=== PATIENT | female | born 1940 | race American Indian/Alaskan Native ===

== ENCOUNTER → 2020-08-03 14:49 | Outpatient (BNVA) | payer MEDICARE, SELFPAY | PROVIDERS: PCP Internal Medicine; Visit Provider Urology | DX: Z46.6 Encounter for fitting and adjustment of urinary device (principal) | CPT/HCPCS: 51705; 51710; 99212 ==

== ENCOUNTER 2020-08-07 13:32 | Outpatient (REF) | payer MEDICARE, SELFPAY ==
[2020-08-07 14:16] LABS: MANUAL DIFF FLAG NO
[2020-08-07 14:18] LABS: Basophils Absolute Auto 0.1 X10*3/uL (0.0-0.2); Basophils Percent Auto 0.6 % (0-2); Eosinophils Absolute Auto 0.3 X10*3/uL (0.0-0.4); Eosinophils Percent Auto 3.6 % (0-4); Hematocrit 42.4 % (37-47); Hemoglobin 13.6 g/dl (12.0-16.0); Imm Gran Abs Auto 0.06 X10*3/uL (0.00-0.03); Imm Gran Pct Auto 0.6 % (0.0-0.4); Lymphocytes Absolute Auto 1.7 X10*3/uL (1.2-4.9); Lymphocytes Percent Auto 18.5 % (20-40); Mean Corpuscular HGB Conc 32.1 g/dl (31.0-35.0); Mean Corpuscular Hemoglobin 29.1 pg (27.0-33.0); Mean Corpuscular Volume 90.6 fL (80-98); Mean Platelet Volume 9.8 fL (9.4-12.3); Monocytes Absolute Auto 1.1 X10*3/uL (0.1-1.2); Monocytes Percent Auto 11.4 % (2-11); Neutrophils Absolute Auto 6.1 X10*3/uL (2.0-8.3); Neutrophils Percent Auto 65.3 % (45-73); Platelet Count 236 X10*3/uL (160-400); Red Blood Count 4.68 X10*6/uL (4.20-5.50); Red Cell Distribution Width 13.8 % (11.0-16.0); White Blood Count 9.3 X10*3/uL (4.8-10.8)
[2020-08-07 14:44] LABS: Alanine Aminotransferase 19 U/L (0-31); Albumin Level 3.7 g/dL (3.5-5.0); Alkaline Phosphatase 99 U/L (39-117); Anion Gap 13 (12-20); Aspartate Amino Transferase 22 U/L (5-31); Bilirubin Total 0.3 mg/dL (0.0-1.0); Blood Urea Nitrogen 51 mg/dL (9-16); Calcium 8.9 mg/dL (8.4-10.2); Carbon Dioxide 26 mmol/L (22-29); Chloride 106 mmol/L (96-108); Cholesterol 181 mg/dL; Estimated Glomerular Filt Rate 26; Glucose Random 184 mg/dL (60-115); HDL Cholesterol 35 mg/dL; LDL Cholesterol Calculated 114 mg/dl; Potassium 5.2 mmol/l (3.3-5.1); Sodium 140 mmol/L (135-145); Total Protein 7.3 g/dL (6.5-8.0); Triglycerides 163 mg/dL
[2020-08-07 15:05] LABS: Ferritin 63 ng/mL (10-250); Thyroid Stimulating Hormone 2.18 mIU/mL (0.32-4.0)
[2020-08-07 15:12] LABS: Estimated Average Glucose 126 mg/dL; Hemoglobin A1C 150.1454 umol/L
== END 2020-08-07 13:33 | disposition home or self-care (01) ==
LOC: HO.LAB 13:32
PROVIDERS: PCP Internal Medicine; Visit Provider Internal Medicine
DX: E03.8 Other specified hypothyroidism (principal); I12.9 Hypertensive chronic kidney disease with stage 1 through stage 4 chronic kidney disease, or unspecified chronic kidney disease; E11.22 Type 2 diabetes mellitus with diabetic chronic kidney disease; N18.9 Chronic kidney disease, unspecified; I25.119 Atherosclerotic heart disease of native coronary artery with unspecified angina pectoris
CPT/HCPCS: 36415; 80053; 80061; 82728; 83036; 84443; 85025

== ENCOUNTER 2020-08-08 15:49 | Outpatient (REF) | payer MEDICARE, SELFPAY ==
[2020-08-08 16:26] LABS: Creatinine Urine 25.29 mg/dL; Microalbum/Creatinine Ratio Ur 1502.5 ug/mg cr
== END 2020-08-08 15:50 | disposition home or self-care (01) ==
LOC: HO.LNP 15:49
PROVIDERS: Visit Provider Internal Medicine
DX: E03.8 Other specified hypothyroidism (principal); E11.22 Type 2 diabetes mellitus with diabetic chronic kidney disease; I12.9 Hypertensive chronic kidney disease with stage 1 through stage 4 chronic kidney disease, or unspecified chronic kidney disease; N18.9 Chronic kidney disease, unspecified; I25.119 Atherosclerotic heart disease of native coronary artery with unspecified angina pectoris
CPT/HCPCS: 82043

== ENCOUNTER → 2020-08-31 14:06 | Outpatient (BNVA) | payer MEDICARE, SELFPAY | PROVIDERS: PCP Internal Medicine; Visit Provider Urology | DX: Z43.5 Encounter for attention to cystostomy (principal); N31.9 Neuromuscular dysfunction of bladder, unspecified; B49 Unspecified mycosis | CPT/HCPCS: 51705; 51710; 99212 ==

== ENCOUNTER → 2020-09-05 13:54 | Outpatient (BNVA) | payer MEDICARE, SELFPAY | PROVIDERS: PCP Internal Medicine; Referring Provider Internal Medicine; Visit Provider Internal Medicine Cardiovascular Disease | DX: Z01.810 Encounter for preprocedural cardiovascular examination (principal); I25.10 Atherosclerotic heart disease of native coronary artery without angina pectoris; Z79.02 Long term (current) use of antithrombotics/antiplatelets | CPT/HCPCS: 93005; 99212 ==

== ENCOUNTER → 2020-10-09 11:12 | Outpatient (BNVA) | payer MEDICARE, SELFPAY | PROVIDERS: PCP Internal Medicine; Referring Provider Internal Medicine; Visit Provider Urology | DX: N31.9 Neuromuscular dysfunction of bladder, unspecified (principal) | CPT/HCPCS: 51702; 51705; 99212 ==

== ENCOUNTER 2020-10-13 22:26 | Inpatient (IN) | payer MEDICARE, SELFPAY ==
[2020-10-13 22:29] VITALS: BP 149/68; PULSE 85; RESP 30; TEMP 37.6; O2SAT 92; BMI 29.0
--- NOTE | 2020-10-13 22:36 | CT_ITS ---
EXAMINATION: CT ANGIOGRAM CHEST WITH AND WITHOUT CONTRAST (CT PULMONARY ANGIOGRAM FOR PE) CLINICAL INFORMATION: Shortness of breath. Knee replacement. COMPARISON: Chest radiograph dated 01/21/2019. TECHNIQUE: Prior to contrast administration, noncontrast localization images were obtained. Subsequently, multidetector volumetric imaging was performed from the thoracic inlet to below the diaphragms following the administration of 65 mL Omnipaque 350 intravenous contrast. No contrast reaction reported. Sagittal, coronal, and MIP oblique sagittal reformatted images were obtained on the CT workstation, uploaded to PACS, and reviewed. This CT examination was performed using dose optimization techniques as appropriate, variously including the following: *Automated exposure control. *Adjustment of mA and/or kV according to patient size (this includes techniques or standardized protocols for targeted exams where dose is matched to indication/reason for exam; i.e. extremities or head). *Use of iterative reconstruction technique. Total exam dose-length product 370 mGy-cm. FINDINGS: QUALITY OF STUDY/CONTRAST BOLUS: Satisfactory. PULMONARY ARTERIES: No central or segmental pulmonary emboli. THORACIC AORTA: No thoracic aortic dilatation or dissection. Scattered atherosclerotic calcifications. LUNG: Diffuse interstitial prominence with patchy bilateral airspace opacities and more confluent consolidations within the bilateral lower lobes. PLEURA: Small bilateral pleural effusions, left slightly greater than right. No pneumothorax. MEDIASTINUM: Mild cardiomegaly. No pericardial effusion. No mediastinal or hilar lymphadenopathy. No evidence of septal bowing or right heart strain. CHEST WALL/AXILLA: No axillary or internal mammary lymphadenopathy. OSSEOUS STRUCTURES: No acute or suspicious osseous abnormality. UPPER ABDOMEN: Unremarkable. No reflux of contrast into the hepatic veins to suggest elevated right heart pressures. CT/CT angio chest PE protocol IMPRESSION: 1. No CT angiographic evidence of acute pulmonary embolism. 2. Interstitial prominence with diffuse patchy bilateral ground-glass airspace opacities. More confluent airspace opacities within the bilateral lower lobes. Findings could represent multifocal pneumonia. Alternatively, findings can be seen in the setting of fluid overload. 3. Small bilateral pleural effusions. 4. Mild cardiomegaly. VTE: Negative.
--- NOTE | 2020-10-13 22:38 | ECG_ITS ---
Test Reason : SHORTNESS OF BREATH Blood Pressure : / mmHG Vent. Rate : 080 BPM Atrial Rate : 053 BPM P-R Int : 000 ms QRS Dur : 084 ms QT Int : 376 ms P-R-T Axes : 000 052 083 degrees QTc Int : 433 ms Normal sinus rhythm with Premature atrial complexes Anteroseptal infarct (cited on or before 21-JAN-2019) Abnormal ECG When compared with ECG of 21-JAN-2019 10:38, No significant changes seen Referred By: Olga Batista Electronically Signed By:SAMM WALKER
[2020-10-13 23:04] VITALS: O2SAT 97
--- NOTE | 2020-10-13 23:05 | ED.SOB ---
HPI - SOB/Dyspnea General Chief Complaint: Upper Respiratory Symptoms Stated Complaint: SUDDEN SOB (80%RA),COUGH, T 100.9 Time Seen by Provider: 10/13/20 22:30 Source: patient Mode of arrival: EMS Limitations: no limitations History of Present Illness HPI Narrative: This is an 80-year-old female with significant past medical history of CAD, diabetes, and recent knee surgery who presents with acute onset shortness of breath and on arrival EMS found patient had 80% on room air and reportedly temperature 100.9?. Otherwise, patient denies any pain, GI symptoms. Related Data Home Medications Medication Instructions Recorded Confirmed amlodipine 5 mg tablet 5 mg PO DAILY 09/05/20 10/14/20 aspirin 81 mg tablet,delayed 81 mg PO DAILY 09/05/20 10/14/20 release atenolol 100 mg tablet 100 mg PO DAILY 09/05/20 10/14/20 atorvastatin 20 mg tablet 20 mg PO BEDTIME 09/05/20 10/14/20 levothyroxine 25 mcg tablet 25 mcg PO DAILY 09/05/20 10/14/20 oxybutynin chloride 10 mg 10 mg PO DAILY 09/05/20 10/14/20 tablet,extended release 24 hr insulin glargine [Lantus Solostar 20 unit SUBCUT BEDTIME 10/14/20 10/14/20 U-100 Insulin] lisinopril 1 tab PO DAILY 10/14/20 10/14/20 Allergies Allergy/AdvReac Type Severity Reaction Status Date / Time No Known Allergies Allergy Verified 10/13/20 23:57 [No Known Allergies*] Review of Systems Review of Systems: Pertinent positives and negatives as stated in HPI 10 point review of systems is otherwise negative. FORMERLY [facility], 1928–1983 Past Medical History Surgical History H/O heart artery stent H/O nasal polypectomy History of tonsillectomy and adenoidectomy History of tubal ligation Hx of cholecystectomy Family History Family History Father Hx of angina pectoris Myocardial infarction Mother Ovarian cancer Stomach cancer Maternal Grandfather Hardening of the arteries of the heart Social History Social History Smoking Status: Never smoker Advance Directives: No Advance Directives Information Provided: No Physical Exam Vital Signs: Vital Signs: Last Vital Signs Temp 98.0 F 10/14/20 06:00 Pulse 75 10/14/20 06:00 Resp 25 H 10/14/20 06:00 BP 147/65 H 10/14/20 06:00 Pulse Ox 93 10/14/20 06:00 Body Mass Index 29.0 VITAL SIGNS: Reviewed. GENERAL: Morbidly obese, well-developed, well nourished, moderate to severe distress. HEAD: Normocephalic/atraumatic, EYES: PERRLA, EOMI intact without pain, no nystagmus/pallor/icterus noted EARS: Ext canals without abnormality, TMs non-bulging and non-erythematous NOSE: Nares patent bilateral OROPHARYNX: no oral lesions noted, posterior pharynx clear and non-erythematous without noted tonsillar enlargement/erythema/exudates NECK: Supple, no adenopathy LUNGS: Tachypneic, no wheeze, decreased bilateral SpO2<92> on 4 L via nasal cannula CARDIOVASCULAR: Regular rate and rhythm without noted murmurs, no JVD or lower extremity edema. ABDOMEN: Soft, non-tender, non-distended with bowel sounds. No rigidity. No guarding. No palpable masses or hernias noted MUSCULOSKELETAL: No tenderness, deformities, or effusions noted on gross inspection. EXTREMITIES: No cyanosis, clubbing or edema. SKIN: Inspection of the skin reveals no rashes, ulcerations, jaundice, pallor, or petechiae. NEUROLOGIC: Alert and oriented x 4. Strength and sensation to light touch were grossly intact x 4. Course Course Course Narrative: This is an 80-year-old female with history and clinical presentation most concerning for possible PE given acute onset shortness of breath and recent knee surgery although EKG does not demonstrate right heart strain pattern and patient is hemodynamically stable otherwise. Will evaluate for pneumonia, COVID-19, PE, cardiac ischemia (given patient's extensive cardiac history). Labs, UA, Serology, EKG, CTA chest, oxygen, BCx, lactic acid, antibiotics. Sepsis fluids held due to elevated BNP and CT findings suggestive of pulmonary congestion. Review of all investigations is most suggestive of multifocal pneumonia and although serology is negative for COVID-19 or influenza her history and objective investigations are highly suspicious. Patient's oxygenation has improved greatly on supplemental Venturi mask and subjectively reports improvement. Antibiotics were provided but with the elevated BNP (on comparison 172 in 2017) and CT findings suggestive pulmonary congestion the decision was made to hold sepsis fluids. This case was discussed with the nursing informatics specialist feels that the patient is stable for the floor and after discussion with the inpatient hospitalist team they are agreeable for admission. I discussed the troponin levels (> 50% delta increase) as well as EKG findings with Cardiology who recommends a single dose of Lovenox and agrees that this EKG is not consistent with atrial fibrillation. MDM - SOB/Dyspnea Lab Data Result diagrams: 10/13/20 23:10 10/13/20 23:10 Labs: Lab Results 10/13/20 10/13/20 10/13/20 Range/Units 22:54 23:10 23:10 WBC 14.0 H (4.8-10.8) X10*3/uL RBC 4.58 (4.20-5.50) X10*6/uL Hgb 13.5 (12.0-16.0) g/dl Hct 41.1 (37-47) % MCV 89.7 (80-98) fL MCH 29.5 (27.0-33.0) pg MCHC 32.8 (31.0-35.0) g/dl RDW 14.6 (11.0-16.0) % Plt Count 231 (160-400) X10*3/uL MPV 9.6 (9.4-12.3) fL Immature Gran % (Auto) 0.8 H (0.0-0.4) % Neut % (Auto) 78.6 H (45-73) % Lymph % (Auto) 7.2 L (20-40) % [place] % (Auto) 12.9 H (2-11) % Eos % (Auto) 0.1 (0-4) % Baso % (Auto) 0.4 (0-2) % Lymph # (Auto) 1.0 L (1.2-4.9) X10*3/uL [place] # (Auto) 1.8 H (0.1-1.2) X10*3/uL Eos # (Auto) 0.0 (0.0-0.4) X10*3/uL Baso # (Auto) 0.1 (0.0-0.2) X10*3/uL Abs Immat Gran (auto) 0.11 H (0.00-0.03) X10*3/uL Absolute Neuts (auto) 11.0 H (2.0-8.3) X10*3/uL Absolute Nucleated RBC 0.000 (0.0-0.012) X10*3/uL Nucleated RBC % (auto) 0.0 (0.0-0.2) /100WBC Smear Tech's Comments VERIFIED PT (10.8-13.0) SEC INR (0.9-1.1) APTT (24.1-38.0) SEC D-Dimer NG/ML VBG pH (7.32-7.43) VBG pCO2 mmhg VBG pO2 mmhg VBG HCO3 mmol/L VBG O2 Saturation % VBG Base Excess mmol/L Sodium 139 (135-145) mmol/L Potassium 4.4 (3.3-5.1) mmol/l Chloride 106 (96-108) mmol/L Carbon Dioxide 20 L (22-29) mmol/L Anion Gap 17 (12-20) BUN 38 H (9-16) mg/dL Creatinine 1.75 H (0.5-1.4) mg/dL Estim Creat Clear Calc 27.5 Estimated GFR 28 Random Glucose 133 H (60-115) mg/dL Lactic Acid (0.5-2.0) mmol/L Calcium 8.5 (8.4-10.2) mg/dL Total Bilirubin 0.7 (0.0-1.0) mg/dL AST 28 (5-31) U/L ALT 22 (0-31) U/L Alkaline Phosphatase 97 (39-117) U/L Lactate Dehydrogenase 301 H (122-220) U/L Troponin I High Sens (<3.5-17.0) ng/L C-Reactive Protein 5.68 H (< or = 0.50) mg/dL B-Natriuretic Peptide (<100) pg/mL Total Protein 7.6 (6.5-8.0) g/dL Albumin 3.8 (3.5-5.0) g/dL Procalcitonin ng/mL Coronavirus (PCR) NEGATIVE (Negative) Influenza Type A (PCR) NEGATIVE (Negative) Influenza Type B (PCR) NEGATIVE (Negative) RSV RNA Qual (PCR) NEGATIVE (Negative) 10/13/20 10/13/20 10/13/20 Range/Units 23:10 23:10 23:10 WBC (4.8-10.8) X10*3/uL RBC (4.20-5.50) X10*6/uL Hgb (12.0-16.0) g/dl Hct (37-47) % MCV (80-98) fL MCH (27.0-33.0) pg MCHC (31.0-35.0) g/dl RDW (11.0-16.0) % Plt Count (160-400) X10*3/uL MPV (9.4-12.3) fL Immature Gran % (Auto) (0.0-0.4) % Neut % (Auto) (45-73) % Lymph % (Auto) (20-40) % [place] % (Auto) (2-11) % Eos % (Auto) (0-4) % Baso % (Auto) (0-2) % Lymph # (Auto) (1.2-4.9) X10*3/uL [place] # (Auto) (0.1-1.2) X10*3/uL Eos # (Auto) (0.0-0.4) X10*3/uL Baso # (Auto) (0.0-0.2) X10*3/uL Abs Immat Gran (auto) (0.00-0.03) X10*3/uL Absolute Neuts (auto) (2.0-8.3) X10*3/uL Absolute Nucleated RBC (0.0-0.012) X10*3/uL Nucleated RBC % (auto) (0.0-0.2) /100WBC Smear Tech's Comments PT 14.2 H (10.8-13.0) SEC INR 1.2 H (0.9-1.1) APTT (24.1-38.0) SEC D-Dimer 1396 NG/ML VBG pH (7.32-7.43) VBG pCO2 mmhg VBG pO2 mmhg VBG HCO3 mmol/L VBG O2 Saturation % VBG Base Excess mmol/L Sodium (135-145) mmol/L Potassium (3.3-5.1) mmol/l Chloride (96-108) mmol/L Carbon Dioxide (22-29) mmol/L Anion Gap (12-20) BUN (9-16) mg/dL Creatinine (0.5-1.4) mg/dL Estim Creat Clear Calc Estimated GFR Random Glucose (60-115) mg/dL Lactic Acid (0.5-2.0) mmol/L Calcium (8.4-10.2) mg/dL Total Bilirubin (0.0-1.0) mg/dL AST (5-31) U/L ALT (0-31) U/L Alkaline Phosphatase (39-117) U/L Lactate Dehydrogenase (122-220) U/L Troponin I High Sens 120.0 H (<3.5-17.0) ng/L C-Reactive Protein (< or = 0.50) mg/dL B-Natriuretic Peptide 492 H (<100) pg/mL Total Protein (6.5-8.0) g/dL Albumin (3.5-5.0) g/dL Procalcitonin 0.08 ng/mL Coronavirus (PCR) (Negative) Influenza Type A (PCR) (Negative) Influenza Type B (PCR) (Negative) RSV RNA Qual (PCR) (Negative) 10/13/20 10/13/20 10/14/20 Range/Units 23:11 23:43 01:54 WBC (4.8-10.8) X10*3/uL RBC (4.20-5.50) X10*6/uL Hgb (12.0-16.0) g/dl Hct (37-47) % MCV (80-98) fL MCH (27.0-33.0) pg MCHC (31.0-35.0) g/dl RDW (11.0-16.0) % Plt Count (160-400) X10*3/uL MPV (9.4-12.3) fL Immature Gran % (Auto) (0.0-0.4) % Neut % (Auto) (45-73) % Lymph % (Auto) (20-40) % [place] % (Auto) (2-11) % Eos % (Auto) (0-4) % Baso % (Auto) (0-2) % Lymph # (Auto) (1.2-4.9) X10*3/uL [place] # (Auto) (0.1-1.2) X10*3/uL Eos # (Auto) (0.0-0.4) X10*3/uL Baso # (Auto) (0.0-0.2) X10*3/uL Abs Immat Gran (auto) (0.00-0.03) X10*3/uL Absolute Neuts (auto) (2.0-8.3) X10*3/uL Absolute Nucleated RBC (0.0-0.012) X10*3/uL Nucleated RBC % (auto) (0.0-0.2) /100WBC Smear Tech's Comments PT (10.8-13.0) SEC INR (0.9-1.1) APTT 29.1 (24.1-38.0) SEC D-Dimer NG/ML VBG pH 7.31 L (7.32-7.43) VBG pCO2 40 mmhg VBG pO2 34 mmhg VBG HCO3 20 mmol/L VBG O2 Saturation 63.4 % VBG Base Excess -6.1 mmol/L Sodium (135-145) mmol/L Potassium (3.3-5.1) mmol/l Chloride (96-108) mmol/L Carbon Dioxide (22-29) mmol/L Anion Gap (12-20) BUN (9-16) mg/dL Creatinine (0.5-1.4) mg/dL Estim Creat Clear Calc Estimated GFR Random Glucose (60-115) mg/dL Lactic Acid 1.8 (0.5-2.0) mmol/L Calcium (8.4-10.2) mg/dL Total Bilirubin (0.0-1.0) mg/dL AST (5-31) U/L ALT (0-31) U/L Alkaline Phosphatase (39-117) U/L Lactate Dehydrogenase (122-220) U/L Troponin I High Sens (<3.5-17.0) ng/L C-Reactive Protein (< or = 0.50) mg/dL B-Natriuretic Peptide (<100) pg/mL Total Protein (6.5-8.0) g/dL Albumin (3.5-5.0) g/dL Procalcitonin ng/mL Coronavirus (PCR) (Negative) Influenza Type A (PCR) (Negative) Influenza Type B (PCR) (Negative) RSV RNA Qual (PCR) (Negative) 10/14/20 Range/Units 01:54 WBC (4.8-10.8) X10*3/uL RBC (4.20-5.50) X10*6/uL Hgb (12.0-16.0) g/dl Hct (37-47) % MCV (80-98) fL MCH (27.0-33.0) pg MCHC (31.0-35.0) g/dl RDW (11.0-16.0) % Plt Count (160-400) X10*3/uL MPV (9.4-12.3) fL Immature Gran % (Auto) (0.0-0.4) % Neut % (Auto) (45-73) % Lymph % (Auto) (20-40) % [place] % (Auto) (2-11) % Eos % (Auto) (0-4) % Baso % (Auto) (0-2) % Lymph # (Auto) (1.2-4.9) X10*3/uL [place] # (Auto) (0.1-1.2) X10*3/uL Eos # (Auto) (0.0-0.4) X10*3/uL Baso # (Auto) (0.0-0.2) X10*3/uL Abs Immat Gran (auto) (0.00-0.03) X10*3/uL Absolute Neuts (auto) (2.0-8.3) X10*3/uL Absolute Nucleated RBC (0.0-0.012) X10*3/uL Nucleated RBC % (auto) (0.0-0.2) /100WBC Smear Tech's Comments PT (10.8-13.0) SEC INR (0.9-1.1) APTT (24.1-38.0) SEC D-Dimer NG/ML VBG pH (7.32-7.43) VBG pCO2 mmhg VBG pO2 mmhg VBG HCO3 mmol/L VBG O2 Saturation % VBG Base Excess mmol/L Sodium (135-145) mmol/L Potassium (3.3-5.1) mmol/l Chloride (96-108) mmol/L Carbon Dioxide (22-29) mmol/L Anion Gap (12-20) BUN (9-16) mg/dL Creatinine (0.5-1.4) mg/dL Estim Creat Clear Calc Estimated GFR Random Glucose (60-115) mg/dL Lactic Acid (0.5-2.0) mmol/L Calcium (8.4-10.2) mg/dL Total Bilirubin (0.0-1.0) mg/dL AST (5-31) U/L ALT (0-31) U/L Alkaline Phosphatase (39-117) U/L Lactate Dehydrogenase (122-220) U/L Troponin I High Sens 194.8 H D (<3.5-17.0) ng/L C-Reactive Protein (< or = 0.50) mg/dL B-Natriuretic Peptide (<100) pg/mL Total Protein (6.5-8.0) g/dL Albumin (3.5-5.0) g/dL Procalcitonin ng/mL Coronavirus (PCR) (Negative) Influenza Type A (PCR) (Negative) Influenza Type B (PCR) (Negative) RSV RNA Qual (PCR) (Negative) ECG Data Attestation: I personally reviewed and interpreted this ECG as follows: Prior ECG tracings: available for review (09/05/2020 similar EKG findings described as NSR, PACs, septal infarct) Interpretation: NSR, PACs, HR -80, no evidence of acute ischemia, QRS and QTC are within normal limits. REPEAT EKG @ 0352: NSR, PACs, HR-84, no evidence of acute ischemia, QRS and QTC are within normal limits (this EKG was also reviewed with cardiology) Discharge Plan Discharge Clinical Impression: Severe sepsis, Multifocal pneumonia, Elevated troponin Patient Disposition: Admitted As Inpatient
[2020-10-13 23:16] LABS: Basophils Absolute Auto 0.1 X10*3/uL (0.0-0.2); Basophils Percent Auto 0.4 % (0-2); Eosinophils Percent Auto 0.1 % (0-4); Hematocrit 41.1 % (37-47); Hemoglobin 13.5 g/dl (12.0-16.0); Imm Gran Abs Auto 0.11 X10*3/uL (0.00-0.03); Imm Gran Pct Auto 0.8 % (0.0-0.4); Lymphocytes Percent Auto 7.2 % (20-40); MANUAL DIFF FLAG SCAN; Mean Corpuscular HGB Conc 32.8 g/dl (31.0-35.0); Mean Corpuscular Hemoglobin 29.5 pg (27.0-33.0); Mean Corpuscular Volume 89.7 fL (80-98); Mean Platelet Volume 9.6 fL (9.4-12.3); Monocytes Absolute Auto 1.8 X10*3/uL (0.1-1.2); Monocytes Percent Auto 12.9 % (2-11); Neutrophils Percent Auto 78.6 % (45-73); Platelet Count 231 X10*3/uL (160-400); Red Blood Count 4.58 X10*6/uL (4.20-5.50); Red Cell Distribution Width 14.6 % (11.0-16.0); SCAN SMEAR FLAG 1
[2020-10-13 23:21] LABS: SLIDE REVIEW VERIFIED
[2020-10-13] MEDS: iohexoL 350 MG/ML 100 ML INFUS..BTL 65 ML IV (23:27)
[2020-10-13 23:28] LABS: INTERNATIONAL NORM RATIO 1.2 (0.9-1.1); Prothrombin Time 14.2 SEC (10.8-13.0)
[2020-10-13 23:31] LABS: Partial Thromboplastin Time 29.1 SEC (24.1-38.0)
[2020-10-13 23:47] VITALS: BP 157/67; PULSE 84; RESP 27; O2SAT 100
[2020-10-13 23:52] LABS: Alanine Aminotransferase 22 U/L (0-31); Albumin Level 3.8 g/dL (3.5-5.0); Alkaline Phosphatase 97 U/L (39-117); Anion Gap 17 (12-20); Aspartate Amino Transferase 28 U/L (5-31); Bilirubin Total 0.7 mg/dL (0.0-1.0); Blood Urea Nitrogen 38 mg/dL (9-16); Calcium 8.5 mg/dL (8.4-10.2); Carbon Dioxide 20 mmol/L (22-29); Chloride 106 mmol/L (96-108); Creatinine Clr Calc Pharmacy 27.5; Estimated Glomerular Filt Rate 28; Glucose Random 133 mg/dL (60-115); Potassium 4.4 mmol/l (3.3-5.1); Sodium 139 mmol/L (135-145); Total Protein 7.6 g/dL (6.5-8.0)
[2020-10-13] MEDS: Piperacillin Sodium/Tazobactam 3.375 GM in 0.9 % Sodium Chloride 50 ML IV (23:57)
[2020-10-14] VITALS (9 sets, daily range): BP systolic 117–160; BP diastolic 65–96; PULSE 65–88; RESP 16–27; TEMP 36.5–37.2; O2SAT 93–97
[2020-10-14 00:05] LABS: Influenza A PCR NEGATIVE (Negative); Influenza B PCR NEGATIVE (Negative); Resp Syncy Virus RNA Qual PCR NEGATIVE (Negative); SARS COV2 PCR INHOUSE NEGATIVE (Negative)
[2020-10-14 00:11] LABS: Lactic Acid 1.8 mmol/L (0.5-2.0)
[2020-10-14 00:27] LABS: C Reactive Protein 5.68 mg/dL (< or = 0.50); Lactate Dehydrogenase 301 U/L (122-220)
[2020-10-14 00:36] LABS: B Type Natriuretic Peptide 492 pg/mL (<100)
--- NOTE | 2020-10-14 00:48 | PC.NURSE ---
PER MD HOLD SEPSIS FLUIDS AT THIS TIME D/T ELEVATED BNP.
[2020-10-14 00:50] LABS: D Dimer 1396 NG/ML
--- NOTE | 2020-10-14 00:57 | W.PM.CCCN ---
Documented by User: LYN Castillo 10/14/20 02:21 History of Present Illness Data of Consult Service Date: 10/14/20 Requesting physician: Olga Batista Primary Care Provider: Unknown Physician HPI Reason for consult: sob Patient is an 80-year-old female with a past medical history CAD, diabetes and recent knee surgery was BIBA with sob, EMS found pt 80% sat on room air and a temp of 100.9F. Upon arrival to the ED, patient's vitals were BP 149/68, HR 85, RR 30, sat 92% on NC (no level of oxygen noted) temp 99.6F. Pt was placed on a ventimask and was satting at 96%, breathing easily, speaking full sentences and asking for juice during my exam. Patient's white blood cell count is 14, BNP 492, lactic acid 1.8, d dimer 1396, carbon dioxide 20, BUN 38, creatinine 1.75, LDH 301, CRP 5.68 and troponin 120. Procalcitonin is 0.08. Covid test was negative. Flu A&B and RSV negative. EKG showed AFib, rate controlled at 80 BPM, patient has history of anterior anteroseptal infarct noted on previous EKG in January 2020. CTA showed: CT/CT angio chest PE protocol IMPRESSION: 1. No CT angiographic evidence of acute pulmonary embolism. 2. Interstitial prominence with diffuse patchy bilateral ground-glass airspace opacities. More confluent airspace opacities within the bilateral lower lobes. Findings could represent multifocal pneumonia. Alternatively, findings can be seen in the setting of fluid overload. 3. Small bilateral pleural effusions. 4. Mild cardiomegaly. VTE: Negative. Review of Systems Review of Systems: Patient denies nausea vomiting diarrhea Constitutional: Constitutional: Reports as per HPI Eyes: Eyes: Reports as per HPI Cardiovascular: Cardiovascular: Reports as per HPI Respiratory: Respiratory: Reports as per HPI REPLACED BY [facility] Family History Family History Father Hx of angina pectoris Myocardial infarction Mother Ovarian cancer Stomach cancer Maternal Grandfather Hardening of the arteries of the heart Surgical History Surgical History H/O heart artery stent H/O nasal polypectomy History of tonsillectomy and adenoidectomy History of tubal ligation Hx of cholecystectomy Social History Social History Household Members: Children Housing: House Smoking Status: Never smoker Second Hand Smoke Exposure: No service: No Current occupational status: retired Meds Allergies Allergy/AdvReac Type Severity Reaction Status Date / Time No Known Allergies Allergy Verified 10/13/20 23:57 [No Known Allergies*] Home Medications Medication Instructions Recorded Confirmed Type atorvastatin 20 mg tablet 20 mg PO BEDTIME 09/05/20 10/14/20 History levothyroxine 25 mcg tablet 25 mcg PO DAILY 09/05/20 10/14/20 History oxybutynin chloride 10 mg 10 mg PO DAILY 09/05/20 10/14/20 History tablet,extended release 24 hr Lantus Solostar U-100 Insulin 20 unit SUBCUT BEDTIME 10/14/20 10/14/20 History lisinopril 1 tab PO DAILY 10/14/20 10/14/20 History ketorolac 1 drp OPHTHALMIC-LEFT QID 10/15/20 10/18/20 History Physical Exam Vital Signs: Vital Signs: Last Vital Signs Temp 99.0 F 10/14/20 00:41 Pulse 68 10/14/20 00:41 Resp 27 H 10/14/20 00:41 BP 150/75 H 10/14/20 00:41 Pulse Ox 96 10/14/20 00:41 Body Mass Index 29.0 Const: General: cooperative, healthy appearing, comfortable, no acute distress and well developed Nutritional Appearance: overweight Orientation/consciousness: patient oriented x3 HENMT: Head: Yes normal to inspection and Yes atraumatic Face and sinus: Yes normal facial exam Eyes: General: appearance normal, both eyes and all related structures EOM: EOMs intact bilaterally Neck: Neck: Yes normal visual inspection, Yes full ROM, Yes trachea midline and Yes supple Resp: Effort & Inspection: normal respiratory effort and able to speak in complete sentences Cardio: Rate: Other Rhythm: abnormal rhythm irregularly irregular and other Skin: General skin exam: no rashes or lesions noted Neuro: General: patient oriented x3 Extrem: General: Yes normal to inspection Results Labs CBC & Chem 7: 10/17/20 07:17 10/20/20 08:40 Labs: Short CBC 10/13/20 Range/Units 23:10 WBC 14.0 H (4.8-10.8) X10*3/uL Hgb 13.5 (12.0-16.0) g/dl Hct 41.1 (37-47) % Plt Count 231 (160-400) X10*3/uL BMP 10/13/20 23:10 Sodium 139 Potassium 4.4 Chloride 106 Carbon Dioxide 20 L BUN 38 H Creatinine 1.75 H Calcium 8.5 Liver Function 10/13/20 Range/Units 23:10 Total Bilirubin 0.7 (0.0-1.0) mg/dL AST 28 (5-31) U/L ALT 22 (0-31) U/L Alkaline Phosphatase 97 (39-117) U/L Albumin 3.8 (3.5-5.0) g/dL Imaging CTA: Attestation: I personally reviewed and interpreted this imaging study as follows: Radiologist's impression: [place] [id number] CT Scan Report Signed Patient: Belen Brady IMR#: [id number] : 1940Acct:[id number] Age/Sex: 80 / FADM Date: 10/13/20 Loc: HO.ED Attending Dr: Ordering Physician: Olga Batista MD Date of Service: 10/13/20 Procedure(s): CT angio chest PE protocol Accession Number(s): [id number] cc: Olga Batista MD~ EXAMINATION: CT ANGIOGRAM CHEST WITH AND WITHOUT CONTRAST (CT PULMONARY ANGIOGRAM FOR PE) CLINICAL INFORMATION: Shortness of breath. Knee replacement. COMPARISON: Chest radiograph dated 01/21/2019. TECHNIQUE: Prior to contrast administration, noncontrast localization images were obtained. Subsequently, multidetector volumetric imaging was performed from the thoracic inlet to below the diaphragms following the administration of 65 mL Omnipaque 350 intravenous contrast. No contrast reaction reported. Sagittal, coronal, and MIP oblique sagittal reformatted images were obtained on the CT workstation, uploaded to PACS, and reviewed. This CT examination was performed using dose optimization techniques as appropriate, variously including the following: *Automated exposure control. *Adjustment of mA and/or kV according to patient size (this includes techniques or standardized protocols for targeted exams where dose is matched to indication/reason for exam; i.e. extremities or head). *Use of iterative reconstruction technique. Total exam dose-length product 370 mGy-cm. FINDINGS: QUALITY OF STUDY/CONTRAST BOLUS: Satisfactory. PULMONARY ARTERIES: No central or segmental pulmonary emboli. THORACIC AORTA: No thoracic aortic dilatation or dissection. Scattered atherosclerotic calcifications. LUNG: Diffuse interstitial prominence with patchy bilateral airspace opacities and more confluent consolidations within the bilateral lower lobes. PLEURA: Small bilateral pleural effusions, left slightly greater than right. No pneumothorax. MEDIASTINUM: Mild cardiomegaly. No pericardial effusion. No mediastinal or hilar lymphadenopathy. No evidence of septal bowing or right heart strain. CHEST WALL/AXILLA: No axillary or internal mammary lymphadenopathy. OSSEOUS STRUCTURES: No acute or suspicious osseous abnormality. UPPER ABDOMEN: Unremarkable. No reflux of contrast into the hepatic veins to suggest elevated right heart pressures. CT/CT angio chest PE protocol IMPRESSION: 1. No CT angiographic evidence of acute pulmonary embolism. 2. Interstitial prominence with diffuse patchy bilateral ground-glass airspace opacities. More confluent airspace opacities within the bilateral lower lobes. Findings could represent multifocal pneumonia. Alternatively, findings can be seen in the setting of fluid overload. 3. Small bilateral pleural effusions. 4. Mild cardiomegaly. VTE: Negative. Assessment and Plan (1) Severe sepsis: Status: Resolved COVID-19 test was negative, however, labs, CTA and clinical picture are highly suggestive of a COVID-19 infection. Recommended to hold sepsis fluids and draw a VBG. As patient looks well at this time and is breathing easily on Venti mask, 14 L at 65%, she can go to [facility]. If the situation changes overnight, please let us know. (2) Multifocal pneumonia: Status: Resolved COVID-19 test was negative, however, labs, CTA and clinical picture are highly suggestive of a COVID-19 infection. Recommended to hold sepsis fluids and draw a VBG. As patient looks well at this time and is breathing easily on Venti mask, 14 L at 65%, she can go to [facility]. If the situation changes overnight, please let us know. (3) Elevated troponin: Status: Resolved (4) Atrial fibrillation: Status: Acute (5) DOROTHY (acute kidney injury): Status: Acute (6) CAD (coronary artery disease): Status: Acute Documented by User: Aracely Thorpe MD 11/03/20 13:44 History of Present Illness HPI Given previous evidence of ischemic heart disease in the face of atrial fibrillation clinical situation could represent acute on chronic diastolic CHF so if she remains symptomatic might need to consider diuretic therapy PMFSH Family History Family History Father Hx of angina pectoris Myocardial infarction Mother Ovarian cancer Stomach cancer Maternal Grandfather Hardening of the arteries of the heart Surgical History Surgical History H/O heart artery stent H/O nasal polypectomy History of tonsillectomy and adenoidectomy History of tubal ligation Hx of cholecystectomy Social History Social History Household Members: Children Housing: House Smoking Status: Never smoker Second Hand Smoke Exposure: No service: No Current occupational status: retired [employer] Allergies Allergy/AdvReac Type Severity Reaction Status Date / Time No Known Allergies Allergy Verified 10/13/20 23:57 [No Known Allergies*] Home Medications Medication Instructions Recorded Confirmed Type atorvastatin 20 mg tablet 20 mg PO BEDTIME 09/05/20 10/14/20 History levothyroxine 25 mcg tablet 25 mcg PO DAILY 09/05/20 10/14/20 History oxybutynin chloride 10 mg 10 mg PO DAILY 09/05/20 10/14/20 History tablet,extended release 24 hr Lantus Solostar U-100 Insulin 20 unit SUBCUT BEDTIME 10/14/20 10/14/20 History lisinopril 1 tab PO DAILY 10/14/20 10/14/20 History ketorolac 1 drp OPHTHALMIC-LEFT QID 10/15/20 10/18/20 History Results Labs CBC & Chem 7: 10/17/20 07:17 10/20/20 08:40
[2020-10-14 01:02] LABS: Procalcitonin 0.08 ng/mL
[2020-10-14 02:07] LABS: Base Excess VBG -6.1 mmol/L; HCO3 VBG 20 mmol/L; Oxygen Saturation VBG 63.4 %; PCO2 VBG 40 mmhg; PO2 VBG 34 mmhg; pH VBG 7.31 (7.32-7.43)
[2020-10-14 02:32] LABS: Troponin-I High Sensitivity 194.8 ng/L (<3.5-17.0)
--- NOTE | 2020-10-14 03:40 | ECG_ITS ---
Test Reason : REPEAT Blood Pressure : / mmHG Vent. Rate : 084 BPM Atrial Rate : 084 BPM P-R Int : 000 ms QRS Dur : 090 ms QT Int : 408 ms P-R-T Axes : 000 049 064 degrees QTc Int : 482 ms Normal sinus rhythm Premature atrial complexes Anterior infarct (cited on or before 21-JAN-2019) Abnormal ECG When compared with ECG of 13-OCT-2020 22:50, No significant change was found Referred By: Olga Batista Electronically Signed By:SAMM WALKER
--- NOTE | 2020-10-14 04:34 | PM.IMHP ---
History of Present Illness Date of Service: 10/14/20 Chief Complaint: SOB 80 y/o female with extensive PMHx who presented from home due to SOB. Per history provided by the patient, for the past 7 days has been having worsening dry cough which is now associated with difficulty breathing since yesterday for what decided to come to the ED for further evaluation. Patient denies any chest pain, nausea, vomiting or any episode of fever. Does report a sick contact which is the daughter that was recently diagnosed with covid infection. On presentation to the ED patient was noted to be tachypneic, afebrile, hypoxic which improved after was placed on O2 therapy now on venti mask. WBC of 14, creatinine of 1.75 which is baseline, Troponin 120 which increased to 194. EKG showing irregular rythm but with P waves present, no ST T wave changes. Covid negative but imaging concerning for possible underlying covid infection. Decision for admission given. Patient seen and examined at the bedside, laying down in bed in no acute distress. ROS as above otherwise negative. Physical exam unremarkable. Past Medical History: 1. Coronary artery disease, status post stent placement, followed by Dr. Angel. 2. Osteoarthritis. 3. Hypertension. 4. Dyslipidemia. 5. History of stroke with no residual deficits. 6. Type 2 diabetes. 7. History of TIA. 8. Hypothyroidism. PAST SURGICAL HISTORY: 1. Above-stated PCI with stent placement x2. 2. Right total knee arthroplasty. 3. Vein ligation. 4. Cholecystectomy. 5. Recent Botox injection for her bladder. This was on January 18. Toxic habits: None Review of Systems Constitutional: Constitutional: Reports as per HPI [facility] Family History Father Hx of angina pectoris Myocardial infarction Mother Ovarian cancer Stomach cancer Maternal Grandfather Hardening of the arteries of the heart Surgical History H/O heart artery stent H/O nasal polypectomy History of tonsillectomy and adenoidectomy History of tubal ligation Hx of cholecystectomy Social History Smoking Status: Never smoker Advance Directives: No Advance Directives Information Provided: No Meds Allergies Allergy/AdvReac Type Severity Reaction Status Date / Time No Known Allergies Allergy Verified 10/13/20 23:57 [No Known Allergies*] Home Medications Medication Instructions Recorded Confirmed Type amlodipine 5 mg tablet 5 mg PO DAILY 09/05/20 10/14/20 History aspirin 81 mg tablet,delayed 81 mg PO DAILY 09/05/20 10/14/20 History release atenolol 100 mg tablet 100 mg PO DAILY 09/05/20 10/14/20 History atorvastatin 20 mg tablet 20 mg PO BEDTIME 09/05/20 10/14/20 History levothyroxine 25 mcg tablet 25 mcg PO DAILY 09/05/20 10/14/20 History oxybutynin chloride 10 mg 10 mg PO DAILY 09/05/20 10/14/20 History tablet,extended release 24 hr insulin glargine [Lantus Solostar 20 unit SUBCUT BEDTIME 10/14/20 10/14/20 History U-100 Insulin] lisinopril 1 tab PO DAILY 10/14/20 10/14/20 History Physical Exam Vital Signs and Narrative: Vital Signs: Last Vital Signs Temp 99.0 F 10/14/20 00:41 Pulse 68 10/14/20 00:41 Resp 27 H 10/14/20 00:41 BP 150/75 H 10/14/20 00:41 Pulse Ox 96 10/14/20 00:41 Body Mass Index 29.0 Const: General: cooperative, comfortable and no acute distress Orientation/consciousness: oriented to person, oriented to place and oriented to time HENMT: Head: Yes normal to inspection Eyes: General: appearance normal, both eyes and all related structures Neck: Yes normal visual inspection Chest: Chest palpation & inspection: normal inspection of the chest Resp: Effort & Inspection: normal respiratory effort Auscultation: clear to auscultation bilaterally Cardio: Jugular venous distension: no JVD Rate: regular rate Rhythm: abnormal rhythm Heart sounds: S1 normal heart sound present and S2 normal heart sound present GI: Inspection: Yes normal to inspection Skin: General skin exam: no rashes or lesions noted Neuro: General: oriented to person, oriented to place and oriented to time Cognition (Neuro): normal cognition Results Labs CBC and Chem 7: 10/13/20 23:10 10/13/20 23:10 Labs: Laboratory Results - last 24 hr 10/13/20 10/13/20 10/13/20 22:54 23:10 23:10 MCV 89.7 MCH 29.5 MCHC 32.8 RDW 14.6 Plt Count 231 MPV 9.6 Immature Gran % (Auto) 0.8 H Neut % (Auto) 78.6 H Lymph % (Auto) 7.2 L Traill % (Auto) 12.9 H Eos % (Auto) 0.1 Baso % (Auto) 0.4 Lymph # (Auto) 1.0 L Traill # (Auto) 1.8 H Eos # (Auto) 0.0 Baso # (Auto) 0.1 Abs Immat Gran (auto) 0.11 H Absolute Neuts (auto) 11.0 H Absolute Nucleated RBC 0.000 Nucleated RBC % (auto) 0.0 Smear Tech's Comments VERIFIED PT INR APTT D-Dimer VBG pH VBG pCO2 VBG pO2 VBG HCO3 VBG O2 Saturation VBG Base Excess Anion Gap 17 Estim Creat Clear Calc 27.5 Estimated GFR 28 Random Glucose 133 H Lactic Acid Calcium 8.5 Total Bilirubin 0.7 AST 28 ALT 22 Alkaline Phosphatase 97 Lactate Dehydrogenase 301 H Troponin I High Sens C-Reactive Protein 5.68 H B-Natriuretic Peptide Total Protein 7.6 Albumin 3.8 Procalcitonin Coronavirus (PCR) NEGATIVE Influenza Type A (PCR) NEGATIVE Influenza Type B (PCR) NEGATIVE RSV RNA Qual (PCR) NEGATIVE 10/13/20 10/13/20 10/13/20 23:10 23:10 23:10 MCV MCH MCHC RDW Plt Count MPV Immature Gran % (Auto) Neut % (Auto) Lymph % (Auto) Traill % (Auto) Eos % (Auto) Baso % (Auto) Lymph # (Auto) Traill # (Auto) Eos # (Auto) Baso # (Auto) Abs Immat Gran (auto) Absolute Neuts (auto) Absolute Nucleated RBC Nucleated RBC % (auto) Smear Tech's Comments PT 14.2 H INR 1.2 H APTT D-Dimer 1396 VBG pH VBG pCO2 VBG pO2 VBG HCO3 VBG O2 Saturation VBG Base Excess Anion Gap Estim Creat Clear Calc Estimated GFR Random Glucose Lactic Acid Calcium Total Bilirubin AST ALT Alkaline Phosphatase Lactate Dehydrogenase Troponin I High Sens 120.0 H C-Reactive Protein B-Natriuretic Peptide 492 H Total Protein Albumin Procalcitonin 0.08 Coronavirus (PCR) Influenza Type A (PCR) Influenza Type B (PCR) RSV RNA Qual (PCR) 10/13/20 10/13/20 10/14/20 23:11 23:43 01:54 MCV MCH MCHC RDW Plt Count MPV Immature Gran % (Auto) Neut % (Auto) Lymph % (Auto) Traill % (Auto) Eos % (Auto) Baso % (Auto) Lymph # (Auto) Traill # (Auto) Eos # (Auto) Baso # (Auto) Abs Immat Gran (auto) Absolute Neuts (auto) Absolute Nucleated RBC Nucleated RBC % (auto) Smear Tech's Comments PT INR APTT 29.1 D-Dimer VBG pH 7.31 L VBG pCO2 40 VBG pO2 34 VBG HCO3 20 VBG O2 Saturation 63.4 VBG Base Excess -6.1 Anion Gap Estim Creat Clear Calc Estimated GFR Random Glucose Lactic Acid 1.8 Calcium Total Bilirubin AST ALT Alkaline Phosphatase Lactate Dehydrogenase Troponin I High Sens C-Reactive Protein B-Natriuretic Peptide Total Protein Albumin Procalcitonin Coronavirus (PCR) Influenza Type A (PCR) Influenza Type B (PCR) RSV RNA Qual (PCR) 10/14/20 01:54 MCV MCH MCHC RDW Plt Count MPV Immature Gran % (Auto) Neut % (Auto) Lymph % (Auto) Traill % (Auto) Eos % (Auto) Baso % (Auto) Lymph # (Auto) Traill # (Auto) Eos # (Auto) Baso # (Auto) Abs Immat Gran (auto) Absolute Neuts (auto) Absolute Nucleated RBC Nucleated RBC % (auto) Smear Tech's Comments PT INR APTT D-Dimer VBG pH VBG pCO2 VBG pO2 VBG HCO3 VBG O2 Saturation VBG Base Excess Anion Gap Estim Creat Clear Calc Estimated GFR Random Glucose Lactic Acid Calcium Total Bilirubin AST ALT Alkaline Phosphatase Lactate Dehydrogenase Troponin I High Sens 194.8 H D C-Reactive Protein B-Natriuretic Peptide Total Protein Albumin Procalcitonin Coronavirus (PCR) Influenza Type A (PCR) Influenza Type B (PCR) RSV RNA Qual (PCR) Imaging Radiologist's Impressions: Impressions Chest CTA 10/13/20 22:36 IMPRESSION: 1. No CT angiographic evidence of acute pulmonary embolism. 2. Interstitial prominence with diffuse patchy bilateral ground-glass airspace opacities. More confluent airspace opacities within the bilateral lower lobes. Findings could represent multifocal pneumonia. Alternatively, findings can be seen in the setting of fluid overload. 3. Small bilateral pleural effusions. 4. Mild cardiomegaly. VTE: Negative. Assessment and Plan (1) Sepsis: Status: Acute start with Rocephin for gram neg coverage Start with Doxy for atypical coverage Follow up Bcx Continue with gentle IV hydration Isolation Keep MAP >65 mmHg Continue with Solumedrol IV and taper off as tolerated Infectious disease consult in the am (2) COVID-19 virus infection: Status: Acute plan as above (3) CKD (chronic kidney disease): Status: Acute creatinine baseline 1.75 monitor renal function closely (4) Elevated troponin: Status: Acute elevated troponin likely secondary to demand ischemia given current sepsis. Patient asymptomatic and no EKG changes evident Troponin from 120 to 194. Will not start full dose anticoagulation for now given patient unlikely to have ACS Follow up 2D echo in the am Cardiology consult in the am (5) CAD (coronary artery disease): Status: Acute continue with aspirin home dose continue with statin home dose (6) Hypertension: Status: Acute continue with amlodipine home dose continue with atenolol home dose continue with lisinopril home dose (7) Diabetes: Status: Acute insulin regimen as ordered (8) Hypothyroidism: Status: Acute continue with levothyroxine home dose (9) Urinary incontinence: Status: Acute continue with oxybutynin home dose
[2020-10-14] MEDS: Enoxaparin Sodium 80 MG/0.8 ML SYRINGE SUBCUT (06:50)
[2020-10-14] MEDS: atenoloL 100 MG TABLET PO (08:28)
[2020-10-14] MEDS: Levothyroxine Sodium 25 MCG TABLET PO (08:36)
[2020-10-14] MEDS: lisinopriL 5 MG TABLET PO (08:37)
[2020-10-14] MEDS: Aspirin Enteric Coated 81 MG TABLET.DR PO (08:37)
[2020-10-14] MEDS: amLODIPine Besylate 5 MG TABLET PO (08:37)
[2020-10-14 12:29] LABS: Adenovirus PCR Not Detected (Not Detect.); Bordetella parapertussis PCR Not Detected (Not Detect.); Bordetella pertussis PCR Not Detected (Not Detect.); Chlamydia pneumoniae PCR Not Detected (Not Detect.); Coronavirus 229E PCR Not Detected (Not Detect.); Coronavirus HKU1 PCR Not Detected (Not Detect.); Coronavirus NL63 PCR Not Detected (Not Detect.); Coronavirus OC43 PCR Not Detected (Not Detect.); Human metapneumovirus PCR Not Detected (Not Detect.); Influenza A PCR Not Detected (Not Detect.); Influenza B PCR Not Detected (Not Detect.); Mycoplasma pneumoniae PCR Not Detected (Not Detect.); Parainfluenza 1 PCR Not Detected (Not Detect.); Parainfluenza 2 PCR Not Detected (Not Detect.); Parainfluenza 3 PCR Not Detected (Not Detect.); Parainfluenza 4 PCR Not Detected (Not Detect.); RSV PCR Not Detected (Not Detect.); Rhino/Enterovirus PCR Not Detected (Not Detect.); SARS-CoV-2 PCR Not Detected (Not Detect.)
[2020-10-14] MEDS: cefTRIAXone sodium 1 GM in 0.9 % Sodium Chloride 50 ML IV (13:16)
[2020-10-14] MEDS: Furosemide 20 MG/2 ML VIAL IVPUSH (13:18)
[2020-10-14] MEDS: Heparin Sodium,Porcine 5,000 UNIT/ML VIAL 5000 UNIT SUBCUT ×2 (13:33→21:31)
[2020-10-14] MEDS: Doxycycline Hyclate 100 MG in 0.9 % Sodium Chloride 250 ML 166.67 MG IV (14:29)
[2020-10-14] MEDS: Atorvastatin Calcium 20 MG TABLET PO (21:31)
[2020-10-14] MEDS: Insulin Glargine,Hum.rec.anlog 100 UNIT/ML 10 ML VIAL 20 UNIT SUBCUT (21:35)
[2020-10-14] MEDS: 0.9 % Sodium Chloride Flush 3 ML SYRINGE IVFLUSH (21:36)
[2020-10-14 21:45] LABS: Glucose, Whole Blood 217 mg/dL (60-115)
[2020-10-14 23:12] LABS: Basophils Percent Auto 0.2 % (0-2); Hematocrit 38.8 % (37-47); Hemoglobin 12.5 g/dl (12.0-16.0); Imm Gran Abs Auto 0.06 X10*3/uL (0.00-0.03); Imm Gran Pct Auto 0.5 % (0.0-0.4); Lymphocytes Absolute Auto 0.5 X10*3/uL (1.2-4.9); Lymphocytes Percent Auto 4.8 % (20-40); MANUAL DIFF FLAG SCAN; Mean Corpuscular HGB Conc 32.2 g/dl (31.0-35.0); Mean Platelet Volume 9.5 fL (9.4-12.3); Monocytes Absolute Auto 0.4 X10*3/uL (0.1-1.2); Monocytes Percent Auto 3.5 % (2-11); Platelet Count 191 X10*3/uL (160-400); Red Blood Count 4.31 X10*6/uL (4.20-5.50); Red Cell Distribution Width 14.6 % (11.0-16.0); SCAN SMEAR FLAG 1
[2020-10-14 23:14] LABS: SLIDE REVIEW VERIFIED
[2020-10-14 23:35] LABS: Anion Gap 15 (12-20); Blood Urea Nitrogen 36 mg/dL (9-16); Calcium 7.7 mg/dL (8.4-10.2); Carbon Dioxide 21 mmol/L (22-29); Chloride 103 mmol/L (96-108); Creatinine Clr Calc Pharmacy 26.7; Estimated Glomerular Filt Rate 27; Glucose Random 287 mg/dL (60-115); Potassium 4.3 mmol/l (3.3-5.1); Sodium 135 mmol/L (135-145)
[2020-10-15] VITALS (9 sets, daily range): BP systolic 142–176; BP diastolic 55–104; PULSE 63–80; RESP 0–20; TEMP 36–36.9; O2SAT 93–100; BMI 36.6
[2020-10-15] MEDS: 0.9 % Sodium Chloride Flush 3 ML SYRINGE IVFLUSH ×3 (00:24→21:51)
[2020-10-15] MEDS: Levothyroxine Sodium 25 MCG TABLET PO (06:17)
[2020-10-15 06:39] LABS: Hematocrit 38.8 % (37-47); Hemoglobin 12.6 g/dl (12.0-16.0); Mean Corpuscular HGB Conc 32.5 g/dl (31.0-35.0); Mean Corpuscular Hemoglobin 29.2 pg (27.0-33.0); Mean Platelet Volume 9.6 fL (9.4-12.3); Platelet Count 195 X10*3/uL (160-400); Red Blood Count 4.31 X10*6/uL (4.20-5.50); Red Cell Distribution Width 14.5 % (11.0-16.0); White Blood Count 10.3 X10*3/uL (4.8-10.8)
[2020-10-15 07:09] LABS: Anion Gap 15 (12-20); Blood Urea Nitrogen 37 mg/dL (9-16); Calcium 8.2 mg/dL (8.4-10.2); Carbon Dioxide 21 mmol/L (22-29); Chloride 105 mmol/L (96-108); Creatinine Clr Calc Pharmacy 27.7; Estimated Glomerular Filt Rate 28; Glucose Random 224 mg/dL (60-115); Potassium 4.4 mmol/l (3.3-5.1); Sodium 137 mmol/L (135-145)
--- NOTE | 2020-10-15 07:58 | PC.NURSE ---
report from [facility]. pt boarding awaiting isolation placement. vitals updated.
--- NOTE | 2020-10-15 11:17 | P.CONCA_ITS ---
History of Present Illness History of Present Illness Date of Service: 10/15/20 Requesting physician: Merritt Velazquez Consult reason: shortness of breath Chief complaint: sob Narrative: 80-year-old female with coronary artery disease and previous PCI in [place], hypertension, hypothyroidism and chronic kidney disease was presenting with dyspnea. Patient said she was living with her daughter who noticed her to be short of breath. She think she was not significantly different from her baseline. In any case she was brought into the hospital with dyspnea. She was tested for COVID-19 and the higher viral panel has been negative. CT scan of the chest showed bilateral infiltrates with differentials of infection versus congestive heart failure. She is saying her symptoms for ischemia were also shortness of breath but she does not remember the us history very well. She in particular had no significant chest pain before. She is not complaining of any chest discomfort. She is saying she is little better. She has urinary in continence and received Lasix overnight. Review of Systems Review of Systems: Shortness of breath Yes all other systems are reviewed and are negative [facility] Family History Family History Father Hx of angina pectoris Myocardial infarction Mother Ovarian cancer Stomach cancer Maternal Grandfather Hardening of the arteries of the heart Surgical History Surgical History H/O heart artery stent H/O nasal polypectomy History of tonsillectomy and adenoidectomy History of tubal ligation Hx of cholecystectomy Social History Social History Smoking Status: Never smoker Meds Allergies Allergy/AdvReac Type Severity Reaction Status Date / Time No Known Allergies Allergy Verified 10/13/20 23:57 [No Known Allergies*] Home Medications Medication Instructions Recorded Confirmed Type amlodipine 5 mg tablet 5 mg PO DAILY 09/05/20 10/14/20 History aspirin 81 mg tablet,delayed 81 mg PO DAILY 09/05/20 10/14/20 History release atenolol 100 mg tablet 100 mg PO DAILY 09/05/20 10/14/20 History atorvastatin 20 mg tablet 20 mg PO BEDTIME 09/05/20 10/14/20 History levothyroxine 25 mcg tablet 25 mcg PO DAILY 09/05/20 10/14/20 History oxybutynin chloride 10 mg 10 mg PO DAILY 09/05/20 10/14/20 History tablet,extended release 24 hr insulin glargine [Lantus Solostar 20 unit SUBCUT BEDTIME 10/14/20 10/14/20 History U-100 Insulin] lisinopril 1 tab PO DAILY 10/14/20 10/14/20 History Physical Exam Vital Signs: Vital Signs: Last Vital Signs Temp 98.5 F 10/15/20 07:53 Pulse 63 10/15/20 10:38 Resp 0 L 10/15/20 10:38 BP 175/76 H 10/15/20 10:38 Pulse Ox 99 10/15/20 07:53 Body Mass Index 29.0 GENERAL APPEARANCE: in no acute distress, well developed, well nourished. HEENT: unremarkable. HEAD: normocephalic, atraumatic. NECK/THYROID: no carotid bruit, JVD post SKIN: no suspicious lesions, warm and dry. HEART: no murmurs, regular rate and rhythm, S1, S2 normal. LUNGS: Crackles both bases to 1/3 lungs. ABDOMEN: normal, bowel sounds present, soft, nontender, nondistended. EXTREMITIES: no clubbing, cyanosis, or edema. PERIPHERAL PULSES: equal. NEUROLOGIC: nonfocal, alert and oriented. PSYCH: mood/affect full range. Results Labs and Meds Result diagrams: 10/15/20 06:28 10/15/20 06:28 Lab results: Laboratory Results - last 24 hr 10/14/20 10/14/20 10/14/20 12:22 21:34 23:02 WBC 11.0 H RBC 4.31 Hgb 12.5 Hct 38.8 MCV 90.0 MCH 29.0 MCHC 32.2 RDW 14.6 Plt Count 191 MPV 9.5 Immature Gran % (Auto) 0.5 H Neut % (Auto) 91.0 H Lymph % (Auto) 4.8 L [place] % (Auto) 3.5 Eos % (Auto) 0.0 Baso % (Auto) 0.2 Lymph # (Auto) 0.5 L [place] # (Auto) 0.4 Eos # (Auto) 0.0 Baso # (Auto) 0.0 Abs Immat Gran (auto) 0.06 H Absolute Neuts (auto) 10.0 H Absolute Nucleated RBC 0.000 Nucleated RBC % (auto) 0.0 Smear Tech's Comments VERIFIED Sodium Potassium Chloride Carbon Dioxide Anion Gap BUN Creatinine Estim Creat Clear Calc Estimated GFR POC Glucose 217 H Random Glucose Calcium Respiratory Panel Damico See Note Adenovirus (Rapid PCR) Not Detected B.pert (TEM-PCR) Not Detected B.parapertussis DNA PCR Not Detected C. pneumoniae DNA (PCR) Not Detected Coronavirus OC43 (PCR) Not Detected Coronavirus HKU1 (PCR) Not Detected Coronavirus 229E (PCR) Not Detected Coronavirus NL63 (PCR) Not Detected Human Metapneumovir PCR Not Detected Influenza A (RT-PCR) Not Detected Influenza B (RT-PCR) Not Detected M. pneumoniae (PCR) Not Detected Parainfluenza 1 (PCR) Not Detected Parainfluenza 2 (PCR) Not Detected Parainfluenza 3 (PCR) Not Detected Parainfluenza 4 (PCR) Not Detected RSV (PCR) Not Detected Entero/Rhino (PCR) Not Detected SARS-CoV-2 RNA (RT-PCR) Not Detected 10/14/20 10/15/20 10/15/20 23:02 06:28 06:28 WBC 10.3 RBC 4.31 Hgb 12.6 Hct 38.8 MCV 90.0 MCH 29.2 MCHC 32.5 RDW 14.5 Plt Count 195 MPV 9.6 Immature Gran % (Auto) Neut % (Auto) Lymph % (Auto) [place] % (Auto) Eos % (Auto) Baso % (Auto) Lymph # (Auto) [place] # (Auto) Eos # (Auto) Baso # (Auto) Abs Immat Gran (auto) Absolute Neuts (auto) Absolute Nucleated RBC 0.000 Nucleated RBC % (auto) 0.0 Smear Tech's Comments Sodium 135 137 Potassium 4.3 4.4 Chloride 103 105 Carbon Dioxide 21 L 21 L Anion Gap 15 15 BUN 36 H 37 H Creatinine 1.81 H 1.74 H Estim Creat Clear Calc 26.7 27.7 Estimated GFR 27 28 POC Glucose Random Glucose 287 H D 224 H Calcium 7.7 L D 8.2 L D Respiratory Panel Damico Adenovirus (Rapid PCR) B.pert (TEM-PCR) B.parapertussis DNA PCR C. pneumoniae DNA (PCR) Coronavirus OC43 (PCR) Coronavirus HKU1 (PCR) Coronavirus 229E (PCR) Coronavirus NL63 (PCR) Human Metapneumovir PCR Influenza A (RT-PCR) Influenza B (RT-PCR) M. pneumoniae (PCR) Parainfluenza 1 (PCR) Parainfluenza 2 (PCR) Parainfluenza 3 (PCR) Parainfluenza 4 (PCR) RSV (PCR) Entero/Rhino (PCR) SARS-CoV-2 RNA (RT-PCR) Assessment and Plan (1) Elevated troponin: Status: Acute (2) Shortness of breath: Status: Acute Pleasant 80-year-old female with known history of coronary artery disease and hypertension who is presenting with shortness of breath. Her viral panel is negative but there is concern about COVID-19. She is being treated as pneumonia. She does have signs of clinical volume overload with elevated JVD. Her BNP is also elevated. I think she should get IV Lasix to see if her symptoms improve. If her chest x-ray improves after diuresis then this is l ikely congestive heart failure. She is being treated for infection also. Her cardiac enzyme trend is not pointing toward acute coronary syndrome. Check echo for wall motion abnormality assessment. Continue antibiotics and bolus doses of Lasix. Blood pressure is elevated. Please resume her amlodipine 5 mg. This can be titrated to 10 mg for blood pressure continues to be elevated. We will follow along with you. Thank you for allowing me to participate in the care of your patient. Please feel free to contact me if you have any questions.
[2020-10-15] MEDS: Aspirin Enteric Coated 81 MG TABLET.DR PO (12:23)
[2020-10-15] MEDS: lisinopriL 5 MG TABLET PO (12:23)
[2020-10-15] MEDS: cefTRIAXone sodium 1 GM in 0.9 % Sodium Chloride 50 ML IV (12:23)
[2020-10-15] MEDS: atenoloL 100 MG TABLET PO (12:24)
[2020-10-15] MEDS: amLODIPine Besylate 5 MG TABLET PO (12:25)
[2020-10-15] MEDS: Heparin Sodium,Porcine 5,000 UNIT/ML VIAL 5000 UNIT SUBCUT ×2 (12:25→21:49)
[2020-10-15] MEDS: Furosemide 40 MG/4 ML VIAL IVPUSH ×2 (12:26→17:21)
--- NOTE | 2020-10-15 12:36 | PC.NURSE ---
MEDICATED PER ORDERS. IV IN R HAND REMOVED DUE TO PAIN. STILL HAS 20 G R AC. VITALS UPDATED
[2020-10-15] MEDS: Doxycycline Hyclate 100 MG in 0.9 % Sodium Chloride 250 ML 166.67 MG IV (13:30)
--- NOTE | 2020-10-15 15:41 | PC.NURSE ---
REPORT TO FLOOR. PT TRANSFERED BY PCT
[2020-10-15 16:18] LABS: Glucose, Whole Blood 207 mg/dL (60-115)
--- NOTE | 2020-10-15 16:38 | P.PNIM_ITS ---
Subjective Subjective Date of Service: 10/15/20 Interval History: the patient was seen and evaluated this morning Laying in bed in the emergency unit, feels comfortable overall but still short of breath requiring oxygen Denies any fever, chills Reporting mild shortness of breath and coughing No reported other overnight events. Systemic review: No fever, chills or weakness No chest pain, palpitation Mild shortness of breath or coughing No abdominal pain, nausea or vomiting No urinary symptoms No any rash or wounds Physical Exam Vital Signs: Vital Signs: Last Vital Signs Temp 96.8 F 10/15/20 15:37 Pulse 70 10/15/20 15:37 Resp 19 10/15/20 15:37 BP 142/104 H 10/15/20 15:37 Pulse Ox 93 10/15/20 15:37 Body Mass Index 29.0 Constitutional : Alert, oriented, not in distress Neck : Normal inspection, Supple Cardiovascular : RRR, S1 S2, +1 bilateral lower extremity edema Respiratory : decrease bilateral air entry, bilateral basal crackles, no wheezes or rhonchi Gastrointestinal: soft, lax, Normal bowel sounds, Non tender Skin : Warm/Dry, No rash Neurological : Alert & oriented x3, No focal deficit Objective Data Current Medications Generic Name Dose Route Start Last Admin Trade Name Freq PRN Reason Stop Dose Admin Amlodipine Besylate 5 mg 10/14/20 09:00 10/15/20 12:25 Amlodipine Besylate 5 Mg Tablet PO 5 mg DAILY [facility] Administration Protocol Aspirin 81 mg 10/14/20 09:00 10/15/20 12:23 Aspirin Enteric Coated 81 Mg Tablet.Dr PO 81 mg DAILY SUN Administration Atenolol 100 mg 10/14/20 09:00 10/15/20 12:24 Atenolol 100 Mg Tablet PO 100 mg DAILY SUN Administration Protocol Atorvastatin Calcium 20 mg 10/14/20 21:00 10/14/20 21:31 Atorvastatin Calcium 20 Mg Tablet PO 20 mg BEDTIME [facility] Administration Heparin Sodium (Porcine) 5,000 unit 10/14/20 12:13 10/15/20 15:59 Heparin Sodium,Porcine 5,000 Unit/Ml Vial SUBCUT Not Given Q8H [facility] Ceftriaxone Sodium 1 gm/ 50 mls @ 100 mls/hr 10/14/20 11:50 10/15/20 13:29 Sodium Chloride IV Infused Q24H [facility] Infusion Doxycycline Hyclate 100 mg/ 250 mls @ 166.67 mls/hr 10/14/20 11:50 10/15/20 15:59 Sodium Chloride IV Infused Q24H [facility] Infusion Insulin Glargine 20 unit 10/14/20 21:00 10/14/20 21:35 Insulin Glargine,Hum.Rec.Anlog 100 Unit/Ml 10 Ml Vial SUBCUT 20 unit BEDTIME SUN Administration Levothyroxine Sodium 25 mcg 10/14/20 06:00 10/15/20 06:17 Levothyroxine Sodium 25 Mcg Tablet PO 25 mcg DAILY@0600 [facility] Administration Lisinopril 5 mg 10/14/20 09:00 10/15/20 12:23 Lisinopril 5 Mg Tablet PO 5 mg DAILY [facility] Administration Protocol Oxybutynin Chloride 10 mg 10/14/20 09:00 10/15/20 12:24 Oxybutynin Chloride Er 5 Mg Tab.Er.24 PO 10 mg DAILY [facility] Administration Sodium Chloride 3 ml 10/14/20 21:28 10/15/20 14:10 0.9 % Sodium Chloride Flush 3 Ml Syringe IVFLUSH Not Given QSHIFT [facility] Labs CBC & Chem 7: 10/15/20 06:28 10/15/20 06:28 Microbiology Microbiology Results: Microbiology 10/13/20 23:43 Blood - Venous Blood Culture - Preliminary No growth after 24 hours. 10/13/20 23:43 Blood - Venous Blood Culture - Preliminary No growth after 24 hours. Assessment and Plan (1) Sepsis: Status: Acute (2) CKD (chronic kidney disease): Status: Acute Assessment and Plan: (3) Elevated troponin: Status: Acute (4) CAD (coronary artery disease): Status: Acute (5) Hypertension: Status: Acute (6) Diabetes: Status: Acute (7) Hypothyroidism: Status: Acute (8) Urinary incontinence: Status: Acute (9) Multifocal pneumonia: Status: Acute (10) Fluid overload: Status: Acute Assessment and Plan: An 80 years old lady with PMH of CAD, HTN, diabetes, TIA who presents to the hospital with increasing shortness of breath and cough. The patient was exposed to COVID-19 unit. Will keep her on isolation for the time being in private room. Acute hypoxic respiratory failure Secondary to CHF VS multifocal pneumonia Patient requiring Venturi mask 45 L Diuresis with IV Lasix Treatment with antibiotic for suspected in pneumonia To get pulmonology evaluation Multifocal infiltrates Likely secondary to atelectasis VS pulmonary infection Negative respiratory panel Negative COVID test CT scan concerning for multifocal pneumonia or fluid overload Discontinue doxycycline and ceftriaxone Pending blood cultures Discontinue IV fluid Isolation for now, to retest COVID in few days before discharge Discontinue steroids Infectious disease consult Elevated troponin Likely secondary to sepsis EKG not showing any ST or T-wave changes to suggest ACS Evaluated by Cardiology, continue diureses for now Pending echo Hypertension Continue amlodipine, atenolol Diabetes type 2 Continue SSI Lantus 20 units at bedtime Diabetic diet DVT PPX Heparin
--- NOTE | 2020-10-15 17:58 | PM.CCN ---
Critical Care Event Note Summary Code activated: No Narrative: Patient has been seen and evaluated. Full consult to follow. Appears to be in acute exacerbation of underlying suspected congestive heart failure. Agree with IV diuresis. Critical Care Time (minutes): 0
[2020-10-15] MEDS: polyethylene glycoL 3350 17 GM POWD.PACK PO (18:45)
[2020-10-15 19:21] LABS: B Type Natriuretic Peptide 611 pg/mL (<100)
[2020-10-15 20:57] LABS: Glucose, Whole Blood 218 mg/dL (60-115)
[2020-10-15] MEDS: Insulin Glargine,Hum.rec.anlog 100 UNIT/ML 10 ML VIAL 20 UNIT SUBCUT (21:49)
[2020-10-15] MEDS: Atorvastatin Calcium 20 MG TABLET PO (21:49)
[2020-10-16] VITALS (7 sets, daily range): BP systolic 102–176; BP diastolic 67–77; PULSE 67–88; RESP 20–22; TEMP 36.3–37.1; O2SAT 94–100; BMI 36.6
[2020-10-16] MEDS: Heparin Sodium,Porcine 5,000 UNIT/ML VIAL 5000 UNIT SUBCUT ×3 (04:27→21:06)
[2020-10-16] MEDS: Levothyroxine Sodium 25 MCG TABLET PO (05:54)
[2020-10-16 06:25] LABS: Hematocrit 41.3 % (37-47); Hemoglobin 13.3 g/dl (12.0-16.0); Mean Corpuscular HGB Conc 32.2 g/dl (31.0-35.0); Mean Corpuscular Hemoglobin 28.9 pg (27.0-33.0); Mean Corpuscular Volume 89.6 fL (80-98); Platelet Count 271 X10*3/uL (160-400); Red Blood Count 4.61 X10*6/uL (4.20-5.50); Red Cell Distribution Width 14.6 % (11.0-16.0); White Blood Count 15.5 X10*3/uL (4.8-10.8)
[2020-10-16 06:47] LABS: Alanine Aminotransferase 19 U/L (0-31); Albumin Level 3.3 g/dL (3.5-5.0); Alkaline Phosphatase 87 U/L (39-117); Anion Gap 16 (12-20); Aspartate Amino Transferase 21 U/L (5-31); Bilirubin Direct 0.3 mg/dL (0.0-0.5); Bilirubin Total 0.6 mg/dL (0.0-1.0); Blood Urea Nitrogen 48 mg/dL (9-16); C Reactive Protein 8.49 mg/dL (< or = 0.50); Calcium 8.3 mg/dL (8.4-10.2); Carbon Dioxide 24 mmol/L (22-29); Chloride 104 mmol/L (96-108); Creatinine Clr Calc Pharmacy 29.1; Estimated Glomerular Filt Rate 26; Glucose Random 146 mg/dL (60-115); Lactate Dehydrogenase 239 U/L (122-220); Potassium 4.4 mmol/l (3.3-5.1); Sodium 140 mmol/L (135-145)
[2020-10-16 07:25] LABS: Glucose, Whole Blood 146 mg/dL (60-115)
--- NOTE | 2020-10-16 08:00 | XR_ITS ---
EXAMINATION: XR CHEST CLINICAL INFORMATION: Follow-up infiltrate COMPARISON: CT chest dated 10/13/2020 TECHNIQUE: Frontal view of the chest was obtained. FINDINGS: Increasingly coalescent bilateral parahilar and lower lung airspace opacities. Moderate left and small right pleural effusion with accompanying atelectasis. Heart size within normal limits for technique. Pulmonary venous congestion. No pneumothorax. No acute or suspicious osseous abnormalities. XR/XR chest 1V IMPRESSION: Increasingly coalescent bilateral patchy and hazy airspace opacities accompanied by [id number] left and small right pleural effusion.
[2020-10-16 08:21] LABS: D Dimer 1635 NG/ML
[2020-10-16] MEDS: 0.9 % Sodium Chloride Flush 3 ML SYRINGE IVFLUSH ×2 (09:15→17:44)
[2020-10-16] MEDS: polyethylene glycoL 3350 17 GM POWD.PACK PO (09:15)
[2020-10-16] MEDS: Furosemide 40 MG/4 ML VIAL IVPUSH ×2 (09:15→17:38)
[2020-10-16] MEDS: Aspirin Enteric Coated 81 MG TABLET.DR PO (09:16)
[2020-10-16] MEDS: atenoloL 100 MG TABLET PO (09:16)
--- NOTE | 2020-10-16 10:30 | MHC.CM.PN ---
CM met with patient at the bedside who reports she amb with a cane, independent and lives with dtr. Patient does not have a HCP and is thinking about filling one out, CM will follow up. Discussed discharge plan, home no services although will refer to [facility] for house keeping help. Family will provide transport. CM will continue to follow patient for discharge needs.
[2020-10-16] MEDS: cefTRIAXone sodium 1 GM in 0.9 % Sodium Chloride 50 ML IV (11:28)
[2020-10-16 11:37] LABS: Glucose, Whole Blood 211 mg/dL (60-115)
[2020-10-16] MEDS: Doxycycline Hyclate 100 MG in 0.9 % Sodium Chloride 250 ML 166.67 MG IV (12:43)
--- NOTE | 2020-10-16 13:27 | P.PNIM_ITS ---
Subjective Subjective Date of Service: 10/16/20 Interval History: . the patient was seen and evaluated this morning Laying in bed, feels much better as dyspnea has improved Denies any fever, chills shortness of breath has improved but still requiring 6 L of oxygen No reported other overnight events. Systemic review: No fever, chills or weakness No chest pain, palpitation Reporting shortness of breath and coughing No abdominal pain, nausea or vomiting No urinary symptoms No any rash or wounds Physical Exam Vital Signs: Vital Signs: Last Vital Signs Temp 97.7 F 10/16/20 12:00 Pulse 80 10/16/20 12:00 Resp 20 10/16/20 12:00 BP 166/67 H 10/16/20 12:00 Pulse Ox 94 10/16/20 12:00 Body Mass Index 36.6 Constitutional : Alert, oriented, not in distress Neck : Normal inspection, Supple Cardiovascular : RRR, S1 S2, trace lower extremity edema Respiratory : Decreased bilateral air entry but better in the upper areas of the lungs bilaterally, more irradiation to were the lower part of the lungs, no crackles but dullness in the lower part. Gastrointestinal: soft, lax, Normal bowel sounds, Non tender Skin : Warm/Dry, No rash Neurological : Alert & oriented x3, No focal deficit Objective Data Current Medications Generic Name Dose Route Start Last Admin Trade Name Boq PRN Reason Stop Dose Admin Amlodipine Besylate 5 mg 10/14/20 09:00 10/15/20 12:25 Amlodipine Besylate 5 Mg Tablet PO 5 mg DAILY SUN Administration Protocol Aspirin 81 mg 10/14/20 09:00 10/16/20 09:16 Aspirin Enteric Coated 81 Mg Tablet.Dr PO 81 mg DAILY SUN Administration Atenolol 100 mg 10/14/20 09:00 10/16/20 09:16 Atenolol 100 Mg Tablet PO 100 mg DAILY SUN Administration Protocol Atorvastatin Calcium 20 mg 10/14/20 21:00 10/15/20 21:49 Atorvastatin Calcium 20 Mg Tablet PO 20 mg BEDTIME SUN Administration Furosemide 40 mg 10/15/20 18:00 10/16/20 09:15 Furosemide 40 Mg/4 Ml Vial IVPUSH 40 mg BID@0900,1800 SUN Administration Protocol Heparin Sodium (Porcine) 5,000 unit 10/14/20 12:13 10/16/20 12:44 Heparin Sodium,Porcine 5,000 Unit/Ml Vial SUBCUT 5,000 unit Q8H [facility] Administration Ceftriaxone Sodium 1 gm/ 50 mls @ 100 mls/hr 10/14/20 11:50 10/16/20 12:26 Sodium Chloride IV Infused Q24H [facility] Infusion Doxycycline Hyclate 100 mg/ 250 mls @ 166.67 mls/hr 10/14/20 11:50 10/16/20 12:43 Sodium Chloride IV 166.67 mls/hr Q24H [facility] Administration Insulin Glargine 20 unit 10/14/20 21:00 10/15/20 21:49 Insulin Glargine,Hum.Rec.Anlog 100 Unit/Ml 10 Ml Vial SUBCUT 20 unit BEDTIME SUN Administration Insulin Human Lispro 0 unit 10/16/20 16:30 Insulin Lispro 100 Unit/Ml 3 Ml Vial SUBCUT QIDACHS [facility] Protocol Levothyroxine Sodium 25 mcg 10/14/20 06:00 10/16/20 05:54 Levothyroxine Sodium 25 Mcg Tablet PO 25 mcg DAILY@0600 SUN Administration Oxybutynin Chloride 10 mg 10/14/20 09:00 10/16/20 09:15 Oxybutynin Chloride Er 5 Mg Tab.Er.24 PO 10 mg DAILY SUN Administration Polyethylene Glycol 17 gm 10/15/20 18:35 10/16/20 09:15 Polyethylene Glycol 3350 17 Gm Powd.Pack PO 17 gm DAILY SUN Administration Sodium Chloride 3 ml 10/14/20 21:28 10/16/20 09:15 0.9 % Sodium Chloride Flush 3 Ml Syringe IVFLUSH 3 ml QSHIFT SUN Administration Labs CBC & Chem 7: 10/16/20 05:29 10/16/20 05:28 Microbiology Microbiology Results: Microbiology 10/13/20 23:43 Blood - Venous Blood Culture - Preliminary No growth after 48 hours. 10/13/20 23:43 Blood - Venous Blood Culture - Preliminary No growth after 48 hours. Assessment and Plan (1) Sepsis: Status: Acute (2) CKD (chronic kidney disease): Status: Acute Assessment and Plan: (3) Elevated troponin: Status: Acute (4) CAD (coronary artery disease): Status: Acute (5) Hypertension: Status: Acute (6) Diabetes: Status: Acute (7) Hypothyroidism: Status: Acute (8) Urinary incontinence: Status: Acute (9) Multifocal pneumonia: Status: Acute (10) Fluid overload: Status: Acute Assessment and Plan: An 80 years old lady with PMH of CAD, HTN, diabetes, TIA who presents to the hospital with increasing shortness of breath and cough. The patient was exposed S she was admitted to COVID-19 unit initially. Will keep her on isolation for the time being in private room. Acute hypoxic respiratory failure Secondary to CHF VS multifocal pneumonia Decrease oxygen requirement to 6 L today Continue Diuresis with IV Lasix Treatment with antibiotic for suspected underlying pneumonia pulmonology input appreciated, more likely fluid overload and CHF Multifocal infiltrates Likely secondary to atelectasis VS pulmonary infection Negative respiratory panel Negative COVID test CT scan concerning for multifocal pneumonia or fluid overload Repeated CXR on 10/16/2020 showing mild improvement continue doxycycline and ceftriaxone Negative blood cultures Isolation for now, to retest COVID in few days before discharge S the patient was exposed at time of admission were she was placed in the COVID unit Discontinue steroids Infectious disease consult Elevated troponin Likely secondary to sepsis EKG not showing any ST or T-wave changes to suggest ACS Evaluated by Cardiology, continue diureses for now Pending echo Suprapubic catheter leaking The tube was changed last week by Dr. Sharma Consult urology for evaluation Hypertension Continue amlodipine, atenolol Diabetes type 2 Continue SSI Lantus 20 units at bedtime Diabetic diet DVT PPX Heparin
--- NOTE | 2020-10-16 13:56 | PM.PNCARD ---
Subjective Subjective Date of Service: 10/16/20 Interval history: 80-year-old female presenting with shortness of breath and bilateral infiltrates concerning for pneumonia versus heart failure on CT scan. She is improving with diuretics and antibiotics. No chest discomfort. Review of Systems Review of Systems Breathing better. Yes all other systems are reviewed and are negative Physical Exam Vital Signs: Last Vital Signs Temp 97.7 F 10/16/20 12:00 Pulse 80 10/16/20 12:00 Resp 20 10/16/20 12:00 BP 166/67 H 10/16/20 12:00 Pulse Ox 94 10/16/20 12:00 Body Mass Index 36.6 GENERAL APPEARANCE: in no acute distress, well developed, well nourished. HEENT: unremarkable. HEAD: normocephalic, atraumatic. NECK/THYROID: no carotid bruit, JVD+ SKIN: no suspicious lesions, warm and dry. HEART: no murmurs, regular rate and rhythm, S1, S2 normal. LUNGS: Lungs clear to auscultation today. ABDOMEN: normal, bowel sounds present, soft, nontender, nondistended. EXTREMITIES: no clubbing, cyanosis, or edema. PERIPHERAL PULSES: equal. NEUROLOGIC: nonfocal, alert and oriented. PSYCH: mood/affect full range. Results Labs and Meds Result diagrams: 10/16/20 05:29 10/16/20 05:28 Lab results: Laboratory Results - last 24 hr 10/15/20 10/15/20 10/15/20 16:06 18:37 20:46 WBC RBC Hgb Hct MCV MCH MCHC RDW Plt Count MPV Absolute Nucleated RBC Nucleated RBC % (auto) D-Dimer Sodium Potassium Chloride Carbon Dioxide Anion Gap BUN Creatinine Estim Creat Clear Calc Estimated GFR POC Glucose 207 H 218 H Random Glucose Calcium Total Bilirubin Direct Bilirubin AST ALT Alkaline Phosphatase Lactate Dehydrogenase C-Reactive Protein B-Natriuretic Peptide 611 H Total Protein Albumin 10/16/20 10/16/20 10/16/20 05:28 05:28 05:29 WBC 15.5 H RBC 4.61 Hgb 13.3 Hct 41.3 MCV 89.6 MCH 28.9 MCHC 32.2 RDW 14.6 Plt Count 271 D MPV 10.0 Absolute Nucleated RBC 0.000 Nucleated RBC % (auto) 0.0 D-Dimer 1635 Sodium 140 Potassium 4.4 Chloride 104 Carbon Dioxide 24 Anion Gap 16 BUN 48 H Creatinine 1.87 H Estim Creat Clear Calc 29.1 Estimated GFR 26 POC Glucose Random Glucose 146 H Calcium 8.3 L Total Bilirubin 0.6 Direct Bilirubin 0.3 AST 21 ALT 19 Alkaline Phosphatase 87 Lactate Dehydrogenase 239 H C-Reactive Protein 8.49 H B-Natriuretic Peptide Total Protein 7.0 Albumin 3.3 L 10/16/20 10/16/20 07:21 11:19 WBC RBC Hgb Hct MCV MCH MCHC RDW Plt Count MPV Absolute Nucleated RBC Nucleated RBC % (auto) D-Dimer Sodium Potassium Chloride Carbon Dioxide Anion Gap BUN Creatinine Estim Creat Clear Calc Estimated GFR POC Glucose 146 H 211 H Random Glucose Calcium Total Bilirubin Direct Bilirubin AST ALT Alkaline Phosphatase Lactate Dehydrogenase C-Reactive Protein B-Natriuretic Peptide Total Protein Albumin Progress Note: A&P Assessment and plan (1) Shortness of breath: Status: Acute (2) Multifocal pneumonia: Status: Acute (3) Congestive heart failure: Status: Acute Assessment and Plan: 80-year-old female who presented with shortness of breath. Imaging was concerning for pneumonia versus heart failure. She has improved significantly with IV diuretics. A chest x-ray also looks better with diuretics. I think the main issue for which she presented for is heart failure. Her blood pressure is elevated and can potentially be the cause for that. Please resume the amlodipine 5 mg once a day. If blood pressure still elevated I will add some nitrates with Imdur 30 mg once a day. Agree with IV diuretics. Probably once a day diuretics should be enough for her given her being dye used to diuretics. Monitor electrolytes and creatinine closely. Please also check another set of troponin to make sure there was no significant change in that troponin levels. I doubt this presentation is due to ischemia. She has known coronary artery disease in the past and had PCI done in [place]. Thank you for allowing me to participate in the care of your patient. Please feel free to contact me if you have any questions. Fall Risk Details Current Medications: Current Medications Generic Name Dose Route Start Last Admin Trade Name Freq PRN Reason Stop Dose Admin Amlodipine Besylate 5 mg 10/14/20 09:00 10/15/20 12:25 Amlodipine Besylate 5 Mg Tablet PO 5 mg DAILY SUN Administration Protocol Aspirin 81 mg 10/14/20 09:00 10/16/20 09:16 Aspirin Enteric Coated 81 Mg Tablet.Dr PO 81 mg DAILY SUN Administration Atenolol 100 mg 10/14/20 09:00 10/16/20 09:16 Atenolol 100 Mg Tablet PO 100 mg DAILY SUN Administration Protocol Atorvastatin Calcium 20 mg 10/14/20 21:00 10/15/20 21:49 Atorvastatin Calcium 20 Mg Tablet PO 20 mg BEDTIME SUN Administration Furosemide 40 mg 10/15/20 18:00 10/16/20 09:15 Furosemide 40 Mg/4 Ml Vial IVPUSH 40 mg BID@0900,1800 SUN Administration Protocol Heparin Sodium (Porcine) 5,000 unit 10/14/20 12:13 10/16/20 12:44 Heparin Sodium,Porcine 5,000 Unit/Ml Vial SUBCUT 5,000 unit Q8H SUN Administration Ceftriaxone Sodium 1 gm/ 50 mls @ 100 mls/hr 10/14/20 11:50 10/16/20 12:26 Sodium Chloride IV Infused Q24H SUN Infusion Doxycycline Hyclate 100 mg/ 250 mls @ 166.67 mls/hr 10/14/20 11:50 10/16/20 12:43 Sodium Chloride IV 166.67 mls/hr Q24H SUN Administration Insulin Glargine 20 unit 10/14/20 21:00 10/15/20 21:49 Insulin Glargine,Hum.Rec.Anlog 100 Unit/Ml 10 Ml Vial SUBCUT 20 unit BEDTIME SUN Administration Insulin Human Lispro 0 unit 10/16/20 16:30 Insulin Lispro 100 Unit/Ml 3 Ml Vial SUBCUT QIDACHS [facility] Protocol Levothyroxine Sodium 25 mcg 10/14/20 06:00 10/16/20 05:54 Levothyroxine Sodium 25 Mcg Tablet PO 25 mcg DAILY@0600 SUN Administration Oxybutynin Chloride 10 mg 10/14/20 09:00 10/16/20 09:15 Oxybutynin Chloride Er 5 Mg Tab.Er.24 PO 10 mg DAILY SUN Administration Polyethylene Glycol 17 gm 10/15/20 18:35 10/16/20 09:15 Polyethylene Glycol 3350 17 Gm Powd.Pack PO 17 gm DAILY SUN Administration Sodium Chloride 3 ml 10/14/20 21:28 10/16/20 09:15 0.9 % Sodium Chloride Flush 3 Ml Syringe IVFLUSH 3 ml QSHIFT SUN Administration Time Spent With Patient Time: Total time spent is greater than 50% in coordination of care (as documented) at patient's floor/unit and/or counseling patient: Time with patient: less than 15 minutes
--- NOTE | 2020-10-16 15:00 | CA_ITS ---
Transthoracic Echocardiogram Patient (Last, First, Middle): Belen Brady, Gender: Female Date of : 1940 Age: 80 Procedure Date: 10/16/2020 Procedure Type: Transthoracic Echocardiogram Location: [facility] Height: 167.64 cm Weight: 102.97 kg BSA: 2.11 m2 Heart Rate: bpm BP: 102 / 77 mmHg [employer]: Referring MD: Anthony Caceres MD Symptoms: SOB, Assess RWMA Study Quality: Fair ECG Rhythm: Sinus with extra beats Conclusions: - Normal left ventricular size and systolic function. - Elevated filling pressures. - Moderately elevated right atrial pressure. Mild pulmonary hypertension is present. - There is mild dilatation of the ascending aorta. Findings Left Ventricle Normal left ventricular size and systolic function. There is moderately increased left ventricular wall thickness. The visually estimated ejection fraction is between 55-60%. There is no evidence of regional wall motion abnormalities. Abnormal diastolic function is noted. Spectral Doppler is indicative of a pseudonormal filling pattern. Elevated filling pressures. Right Ventricle Normal right ventricular cavity size and systolic function. Atria The left atrium is mildly dilated. Aortic Valve The aortic valve structure and function is likely normal. There is no aortic valve stenosis. There is no aortic valve regurgitation. Mitral Valve There is mild mitral annular calcification. There is mild mitral valve regurgitation. There is no mitral valve stenosis. Pulmonic Valve The pulmonic valve is likely normal. Tricuspid Valve Normal tricuspid valve structure and function. There is trace tricuspid valve regurgitation. Moderately elevated right atrial pressure. Mild pulmonary hypertension is present. Great Vessels There is mild dilatation of the ascending aorta. The visualized portions of the pulmonary artery and branches are normal. Venous The inferior vena cava is dilated and collapses less than 50% with inspiration. Pericardium/Pleural There is no evidence of pericardial effusion. Prior Study Comparison Changes noted compared to prior study dated: 12/07/2006. Elevated filling pressures. Mild pulmonary hypertension. Mild dilatation of the aorta. Measurements 2D Linear Measurements IVSd: 1.29 0.6-0.9/0.6-1.0 cm LVIDd: 4.56 3.9-5.3/4.2-5.9 cm LVIDd Index: 2.16 2.4-3.2/2.2-3.1 cm/m2 LVIDs: 3.28 2.0-3.6 cm LVPWd: 1.27 0.7-1.1 cm Ao Root: 2.60 2.1-3.5 cm LA Diam: 3.60 2.7-3.8/3.0-4.0 cm LAIDs Index: 1.71 1.5-2.3 cm/m2 LV Mass: 276.77 67-162/88-224 g LV Mass Index: 131.17 43-95/49-115 g/m2 LVOT Diam: 2.10 3.0+(-)1.3 cm Mitral Valve MV Pk E: 1.13 MV PK A: 0.80 MV Decel Time: 257.00 E/A: 1.40 E'Lateral: 10.80 E'Medial: 5.71 E/E' Med: 19.80 E/E' Lat: 10.50 PHT: 75.00 MVA PHT: 2.93 Decel Chase: 4.38 Aortic Valve AoV Pk Marcus: 1.86 AoV Mn Marcus: 1.31 AoV VTI: 0.45 AoV Pk Grad: 14.00 Aov Mn Grad: 8.00 ANDI Cont.VTI: 2.03 LVOT LVOT Pk Marcus: 1.06 LVOT Mn Marcus: 0.77 LVOT VTI: 0.27 LVOT Pk Grad: 4.00 LVOT Mn Grad: 3.00 LVOT Diam: 2.10 LVOT Area: 3.46 Diastolic Function MV Pk E: 1.13 MV Pk A: 0.80 E/A: 1.40 E'Medial: 5.71 E/E' Med: 19.80 E' Laterial: 10.80 E/E' Lat: 10.50 Tricuspid Valve TR Pk Marcus: 2.80 TR Pk Grad: 31.00 RVSP: 40.00 Great Vessels Aorta Ao Root-2D: 2.60 2.0-3.7 cm Ao Asc: 3.40 2.1-3.4 cm Pulmonary Valve PV Pk Marcus: 0.87 Peak PV Grad: 3.00 Updated in Other Vendor System with Status of Final Anthony Caceres MD electronically signed on 10/17/2020 11:34:25 AM with status of Final
--- NOTE | 2020-10-16 15:50 | P.CNID_ITS ---
History of Present Illness Data of Consult Service Date: 10/16/20 Requesting physician: Sabine Szymanski Primary Care Provider: Unknown Physician HPI Reason for consult: pneumonia She presents to hospital with shortness of breath She has cough and fatigue FluA positive She has no nausea or vomiting Review of Systems Review of Systems: Yes all other systems are reviewed and are negative [facility] Family History Family History Father Hx of angina pectoris Myocardial infarction Mother Ovarian cancer Stomach cancer Maternal Grandfather Hardening of the arteries of the heart Surgical History Surgical History H/O heart artery stent H/O nasal polypectomy History of tonsillectomy and adenoidectomy History of tubal ligation Hx of cholecystectomy Social History Social History Household Members: Children Household Members Other:: daughter Housing: House Do you presently have visiting nurse or other home services: No Smoking Status: Never smoker Second Hand Smoke Exposure: No Use of substances other than those prescribed or required for medical reasons: No Currently Displaying Signs/Symptoms of Drug Intoxication Withdrawal: No Advance Directives: No Advance Directives Information Provided: No Do you have thoughts of harming others: None Do you have a plan to hurt others: No Plan Recently lost weight without trying: No service: No Current occupational status: retired [id number] Allergies Allergy/AdvReac Type Severity Reaction Status Date / Time No Known Allergies Allergy Verified 10/13/20 23:57 [No Known Allergies*] Home Medications Medication Instructions Recorded Confirmed Type amlodipine 5 mg tablet 5 mg PO DAILY 09/05/20 10/14/20 History aspirin 81 mg tablet,delayed 81 mg PO DAILY 09/05/20 10/14/20 History release atenolol 100 mg tablet 100 mg PO DAILY 09/05/20 10/14/20 History atorvastatin 20 mg tablet 20 mg PO BEDTIME 09/05/20 10/14/20 History levothyroxine 25 mcg tablet 25 mcg PO DAILY 09/05/20 10/14/20 History oxybutynin chloride 10 mg 10 mg PO DAILY 09/05/20 10/14/20 History tablet,extended release 24 hr insulin glargine [Lantus Solostar 20 unit SUBCUT BEDTIME 10/14/20 10/14/20 History U-100 Insulin] lisinopril 1 tab PO DAILY 10/14/20 10/14/20 History ketorolac 1 drp OPHTHALMIC-LEFT BEDTIME 10/15/20 10/15/20 History Physical Exam Vital Signs: Vital Signs: Last Vital Signs Temp 97.4 F 10/16/20 15:43 Pulse 67 10/16/20 15:43 Resp 20 10/16/20 15:43 BP 146/68 H 10/16/20 15:43 Pulse Ox 100 10/16/20 15:43 Body Mass Index 36.6 Const: General: cooperative HENMT: Head: Yes normal to inspection Mouth: Normal oral and palatal mucosa present Resp: Effort & Inspection: normal respiratory effort Cardio: Rate: regular rate Rhythm: regular rhythm GI: Palpation (GI): nontender : General: Yes no CVA tenderness Back/Spine/Pelvis: Back: no CVA tenderness Extrem: General: Yes normal to inspection Assessment and Plan (1) Multifocal pneumonia: Problem details: She had flu and probable post flu pneumonia There is possible staph aureus and/or strep pneumonia Status: Acute Continue Ceftriaxone and Doxycycline,possible 3-5 days,po Ceftin and Doxy cycline total 10 days Would give Tamiflu as well Results Labs CBC & Chem 7: 10/16/20 05:29 10/16/20 05:28 Labs: Short CBC 10/16/20 Range/Units 05:29 WBC 15.5 H (4.8-10.8) X10*3/uL Hgb 13.3 (12.0-16.0) g/dl Hct 41.3 (37-47) % Plt Count 271 D (160-400) X10*3/uL BMP 10/16/20 05:28 Sodium 140 Potassium 4.4 Chloride 104 Carbon Dioxide 24 BUN 48 H Creatinine 1.87 H Calcium 8.3 L Liver Function 10/16/20 Range/Units 05:28 Total Bilirubin 0.6 (0.0-1.0) mg/dL Direct Bilirubin 0.3 (0.0-0.5) mg/dL AST 21 (5-31) U/L ALT 19 (0-31) U/L Alkaline Phosphatase 87 (39-117) U/L Albumin 3.3 L (3.5-5.0) g/dL Microbiology Microbiology Results: Microbiology 10/13/20 23:43 Blood - Venous Blood Culture - Preliminary No growth after 48 hours. 10/13/20 23:43 Blood - Venous Blood Culture - Preliminary No growth after 48 hours.
[2020-10-16 15:56] LABS: Troponin-I High Sensitivity 66.4 ng/L (<3.5-17.0)
[2020-10-16 17:35] LABS: Glucose, Whole Blood 222 mg/dL (60-115)
--- NOTE | 2020-10-16 17:36 | PM.PNPUL ---
Subjective Subjective Date of Service: 10/16/20 Interval history: Oxygen requirements and dyspnea improving with diuresis. Objective Data Labs CBC & Chem 7: 10/16/20 05:29 10/16/20 05:28 Labs: Laboratory Results - last 24 hr 10/15/20 10/15/20 10/16/20 18:37 20:46 05:28 WBC RBC Hgb Hct MCV MCH MCHC RDW Plt Count MPV Absolute Nucleated RBC Nucleated RBC % (auto) D-Dimer 1635 Sodium Potassium Chloride Carbon Dioxide Anion Gap BUN Creatinine Estim Creat Clear Calc Estimated GFR POC Glucose 218 H Random Glucose Calcium Total Bilirubin Direct Bilirubin AST ALT Alkaline Phosphatase Lactate Dehydrogenase Troponin I High Sens C-Reactive Protein B-Natriuretic Peptide 611 H Total Protein Albumin 10/16/20 10/16/20 10/16/20 05:28 05:29 07:21 WBC 15.5 H RBC 4.61 Hgb 13.3 Hct 41.3 MCV 89.6 MCH 28.9 MCHC 32.2 RDW 14.6 Plt Count 271 D MPV 10.0 Absolute Nucleated RBC 0.000 Nucleated RBC % (auto) 0.0 D-Dimer Sodium 140 Potassium 4.4 Chloride 104 Carbon Dioxide 24 Anion Gap 16 BUN 48 H Creatinine 1.87 H Estim Creat Clear Calc 29.1 Estimated GFR 26 POC Glucose 146 H Random Glucose 146 H Calcium 8.3 L Total Bilirubin 0.6 Direct Bilirubin 0.3 AST 21 ALT 19 Alkaline Phosphatase 87 Lactate Dehydrogenase 239 H Troponin I High Sens C-Reactive Protein 8.49 H B-Natriuretic Peptide Total Protein 7.0 Albumin 3.3 L 10/16/20 10/16/20 11:19 15:10 WBC RBC Hgb Hct MCV MCH MCHC RDW Plt Count MPV Absolute Nucleated RBC Nucleated RBC % (auto) D-Dimer Sodium Potassium Chloride Carbon Dioxide Anion Gap BUN Creatinine Estim Creat Clear Calc Estimated GFR POC Glucose 211 H Random Glucose Calcium Total Bilirubin Direct Bilirubin AST ALT Alkaline Phosphatase Lactate Dehydrogenase Troponin I High Sens 66.4 H D C-Reactive Protein B-Natriuretic Peptide Total Protein Albumin Microbiology Microbiology Results: Microbiology 10/13/20 23:43 Blood - Venous Blood Culture - Preliminary No growth after 48 hours. 10/13/20 23:43 Blood - Venous Blood Culture - Preliminary No growth after 48 hours. Review of Systems Cardiovascular: Denies chest pain, Reports leg edema and Reports dyspnea Respiratory: Reports dyspnea Physical Exam Vital Signs: Vital Signs: Last Vital Signs Temp 97.4 F 10/16/20 15:43 Pulse 67 10/16/20 15:43 Resp 20 10/16/20 15:43 BP 146/68 H 10/16/20 15:43 Pulse Ox 100 10/16/20 15:43 Body Mass Index 36.6 Const: General: no acute distress, alert and awake Eyes: Sclerae: sclerae normal EOM: EOMs intact bilaterally Neck: Neck: Yes no lymphadenopathy, Yes trachea midline and Yes supple Resp: Effort & Inspection: normal respiratory effort and no respiratory distress Auscultation: crackles (Bibasilar) Cardio: Rate: regular rate Rhythm: regular rhythm Heart sounds: no gallops, no murmurs and no rubs GI: Palpation (GI): Soft to palpation and Other GI palpation findings present ( Nontender) Auscultation: normal bowel sounds Extrem: General: No clubbing, No cyanosis and Yes edema (1+ bilateral) Assessment and Plan Assessment and plan (1) Shortness of breath: Status: Acute Assessment and Plan: Impression: Acute hypoxic respiratory failure appears to be secondary to exacerbation of underlying chronic congestive heart failure, improving with diuresis. Recommendations: Agree with further diuresis. Consider albumin supplementation to improve oncotic pressure. No clinical signs of an acute pneumonia. Continue to titrate down supplemental oxygen as tolerated. (2) Congestive heart failure: Status: Acute Time Spent With Patient Time with patient: 25 - 35 minutes
[2020-10-16] MEDS: Insulin Lispro 100 UNIT/ML 3 ML VIAL SUBCUT (17:38)
[2020-10-16] MEDS: Oseltamivir Phosphate 75 MG CAPSULE PO (17:38)
[2020-10-16 18:42] LABS: B Type Natriuretic Peptide 449 pg/mL (<100)
[2020-10-16 21:03] LABS: Glucose, Whole Blood 141 mg/dL (60-115)
[2020-10-16] MEDS: Insulin Glargine,Hum.rec.anlog 100 UNIT/ML 10 ML VIAL 20 UNIT SUBCUT (21:06)
[2020-10-16] MEDS: Atorvastatin Calcium 20 MG TABLET PO (21:06)
[2020-10-17] VITALS (8 sets, daily range): BP systolic 144–178; BP diastolic 57–91; PULSE 57–80; RESP 17–20; TEMP 36.1–37.1; O2SAT 94–98
[2020-10-17] MEDS: 0.9 % Sodium Chloride Flush 3 ML SYRINGE IVFLUSH ×3 (00:33→16:13)
[2020-10-17] MEDS: Heparin Sodium,Porcine 5,000 UNIT/ML VIAL 5000 UNIT SUBCUT ×3 (06:45→20:53)
[2020-10-17] MEDS: Levothyroxine Sodium 25 MCG TABLET PO (06:45)
[2020-10-17] MEDS: Oseltamivir Phosphate 75 MG CAPSULE PO ×2 (06:45→16:13)
[2020-10-17 07:44] LABS: Glucose, Whole Blood 104 mg/dL (60-115)
[2020-10-17 08:15] LABS: Hematocrit 42.3 % (37-47); Hemoglobin 13.6 g/dl (12.0-16.0); Mean Corpuscular HGB Conc 32.2 g/dl (31.0-35.0); Mean Corpuscular Hemoglobin 28.6 pg (27.0-33.0); Mean Corpuscular Volume 89.1 fL (80-98); Mean Platelet Volume 9.9 fL (9.4-12.3); Platelet Count 248 X10*3/uL (160-400); Red Blood Count 4.75 X10*6/uL (4.20-5.50); Red Cell Distribution Width 14.2 % (11.0-16.0); White Blood Count 7.7 X10*3/uL (4.8-10.8)
[2020-10-17 08:51] LABS: Anion Gap 13 (12-20); Blood Urea Nitrogen 45 mg/dL (9-16); Calcium 8.1 mg/dL (8.4-10.2); Carbon Dioxide 27 mmol/L (22-29); Chloride 103 mmol/L (96-108); Creatinine Clr Calc Pharmacy 33.2; Estimated Glomerular Filt Rate 30; Glucose Random 109 mg/dL (60-115); Potassium 3.8 mmol/l (3.3-5.1); Sodium 139 mmol/L (135-145)
--- NOTE | 2020-10-17 09:04 | P.CDIC_ITS ---
CDI Concurrent Query Service Date: 10/17/20 Documentation Clarification: Please clarify if you are treating a proba ble/suspected/likely or confirmed: Chronic diastolic and/or systolic Congestive heart failure Acute on chronic diastolic and/or systolic Congestive heart failure Please specify if known Provider Response: Acute on Chronic Diastolic and/or Systolic CHF PLEASE DO NOT DELETE/MODIFY EXISTING CONTENT Additional information is needed in order to code to the highest accuracy and appropriate Severity of Illness (SOI). Please clarify the information noted below in your progress notes and discharge summary. Risk Factors/Clinical Indicators/Treatments History of CHF BNP 611 H edema lower extremity, fluid overload, overweight IV lasix ICU notes - appears to be in acute exacerbation of congestive heart failure. continue IV lasix Cardiology consult in am. CDS: Danielle Deleon CCS, CDIS Contact Number: [phone] Please Review the information above and exercise your independent professional judgment in responding to the query. If you concur, pleas document in the PROGRESS NOTES and DISCHARGE SUMMARY. If you do not agree with the query, please document in the query above. THIS QUERY IS PART OF THE PERMANENT MEDICAL RECORD
[2020-10-17] MEDS: amLODIPine Besylate 5 MG TABLET PO ×2 (09:26→10:47)
[2020-10-17] MEDS: Aspirin Enteric Coated 81 MG TABLET.DR PO (09:26)
[2020-10-17] MEDS: atenoloL 100 MG TABLET PO (09:26)
[2020-10-17] MEDS: Furosemide 40 MG/4 ML VIAL IVPUSH ×2 (09:26→17:03)
--- NOTE | 2020-10-17 10:47 | P.CDIC_ITS ---
CDI Concurrent Query Service Date: 10/17/20 Documentation Clarification: Please clarify if you are treating a proba ble/suspected/likely or confirmed: Chronic kidney disease Stage 1-5 Acute on chronic kidney disease Stage 1-5 Please specify if known Provider Response: CKD Stage 3 PLEASE DO NOT DELETE/MODIFY EXISTING CONTENT Additional information is needed in order to code to the highest accuracy and appropriate Severity of Illness (SOI). Please clarify the information noted below in your progress notes and discharge summary. Risk Factors/Clinical Indicators/Treatments Pulmonary note: Assessment/plan: 10/14 - DOROTHY H&P: 10/14 - Assessment/plan - CKD, acute monitor renal function closely creatinine close to baseline 1.75 CDS: Danielle Deleon CCS, CDIS Contact Number: [phone] Please Review the information above and exercise your independent professional judgment in responding to the query. If you concur, pleas document in the PROGRESS NOTES and DISCHARGE SUMMARY. If you do not agree with the query, please document in the query above. THIS QUERY IS PART OF THE PERMANENT MEDICAL RECORD
[2020-10-17] MEDS: cefTRIAXone sodium 1 GM in 0.9 % Sodium Chloride 50 ML IV (10:50)
[2020-10-17 11:44] LABS: Glucose, Whole Blood 199 mg/dL (60-115)
[2020-10-17] MEDS: Doxycycline Hyclate 100 MG in 0.9 % Sodium Chloride 250 ML 166.67 MG IV (11:48)
[2020-10-17] MEDS: Insulin Lispro 100 UNIT/ML 3 ML VIAL SUBCUT ×3 (11:48→20:56)
--- NOTE | 2020-10-17 13:38 | MHC.CM.PN ---
Patient is on 3 liters O2, IV ceftriaxone, IV doxycycline, IV lasix. Discharge plan is home no services. Family will provide transportation. CM will continue to follow patient for discharge needs.
--- NOTE | 2020-10-17 15:24 | HO.PM.IMPN ---
Subjective Subjective Date of Service: 10/17/20 Interval History: Patient was seen and evaluated this morning Laying in bed, feels much better as dyspnea has improved Denies any fever, chills shortness of breath has improved but still requiring 6 L of oxygen No reported other overnight events. Systemic review: No fever, chills or weakness No chest pain, palpitation Reporting shortness of breath and coughing No abdominal pain, nausea or vomiting No urinary symptoms No any rash or wounds Constitutional Constitutional: Reports as per HPI Physical Exam Vital Signs: Vital Signs: Last Vital Signs Temp 97.6 F 10/17/20 07:39 Pulse 60 10/17/20 11:49 Resp 20 10/17/20 11:49 BP 174/78 H 10/17/20 10:47 Pulse Ox 96 10/17/20 11:49 Body Mass Index 36.6 Const: General: cooperative, comfortable and no acute distress Orientation/consciousness: oriented to person, oriented to place and oriented to time HENMT: Head: Yes normal to inspection Eyes: General: appearance normal, both eyes and all related structures Neck: Neck: Yes normal visual inspection Chest: Chest palpation & inspection: normal inspection of the chest Resp: Effort & Inspection: normal respiratory effort Auscultation: clear to auscultation bilaterally Cardio: Jugular venous distension: no JVD Rate: regular rate Rhythm: abnormal rhythm Heart sounds: S1 normal heart sound present and S2 normal heart sound present GI: Inspection: Yes normal to inspection Skin: General skin exam: no rashes or lesions noted Neuro: General: oriented to person, oriented to place and oriented to time Cognition (Neuro): normal cognition Objective Data Current Medications Generic Name Dose Route Start Last Admin Trade Name Mary PRN Reason Stop Dose Admin Amlodipine Besylate 10 mg 10/18/20 09:00 Amlodipine Besylate 10 Mg Tablet PO DAILY [facility] Protocol Aspirin 81 mg 10/14/20 09:00 10/17/20 09:26 Aspirin Enteric Coated 81 Mg Tablet.Dr PO 81 mg DAILY [facility] Administration Atenolol 100 mg 10/14/20 09:00 10/17/20 09:26 Atenolol 100 Mg Tablet PO 100 mg DAILY [facility] Administration Protocol Atorvastatin Calcium 20 mg 10/14/20 21:00 10/16/20 21:06 Atorvastatin Calcium 20 Mg Tablet PO 20 mg BEDTIME [facility] Administration Furosemide 40 mg 10/15/20 18:00 10/17/20 09:26 Furosemide 40 Mg/4 Ml Vial IVPUSH 40 mg BID@0900,1800 [facility] Administration Protocol Heparin Sodium (Porcine) 5,000 unit 10/14/20 12:13 10/17/20 11:48 Heparin Sodium,Porcine 5,000 Unit/Ml Vial SUBCUT 5,000 unit Q8H [facility] Administration Ceftriaxone Sodium 1 gm/ 50 mls @ 100 mls/hr 10/14/20 11:50 10/17/20 11:24 Sodium Chloride IV Infused Q24H [facility] Infusion Doxycycline Hyclate 100 mg/ 250 mls @ 166.67 mls/hr 10/14/20 11:50 10/17/20 13:58 Sodium Chloride IV Infused Q24H [facility] Infusion Insulin Glargine 20 unit 10/14/20 21:00 10/16/20 21:06 Insulin Glargine,Hum.Rec.Anlog 100 Unit/Ml 10 Ml Vial SUBCUT 20 unit BEDTIME [facility] Administration Insulin Human Lispro 0 unit 10/16/20 16:30 10/17/20 11:48 Insulin Lispro 100 Unit/Ml 3 Ml Vial SUBCUT 2 unit QIDACHS [facility] Administration Protocol Levothyroxine Sodium 25 mcg 10/14/20 06:00 10/17/20 06:45 Levothyroxine Sodium 25 Mcg Tablet PO 25 mcg DAILY@0600 [facility] Administration Oseltamivir Phosphate 75 mg 10/16/20 16:00 10/17/20 06:45 Oseltamivir Phosphate 75 Mg Capsule PO 10/21/20 04:01 75 mg Q12H [facility] Administration Oxybutynin Chloride 10 mg 10/14/20 09:00 10/17/20 09:26 Oxybutynin Chloride Er 5 Mg Tab.Er.24 PO 10 mg DAILY [facility] Administration Polyethylene Glycol 17 gm 10/15/20 18:35 10/17/20 09:26 Polyethylene Glycol 3350 17 Gm Powd.Pack PO Not Given DAILY [facility] Sodium Chloride 3 ml 10/14/20 21:28 10/17/20 09:26 0.9 % Sodium Chloride Flush 3 Ml Syringe IVFLUSH 3 ml QSHIFT [facility] Administration Labs CBC & Chem 7: 10/17/20 07:17 10/17/20 07:17 Microbiology Microbiology Results: Microbiology 10/13/20 23:43 Blood - Venous Blood Culture - Preliminary No growth after 48 hours. 10/13/20 23:43 Blood - Venous Blood Culture - Preliminary No growth after 48 hours. Assessment and Plan (1) Sepsis: Status: Acute (2) CKD (chronic kidney disease): Status: Acute Assessment and Plan: (3) Elevated troponin: Status: Acute (4) CAD (coronary artery disease): Status: Acute (5) Hypertension: Status: Acute (6) Diabetes: Status: Acute (7) Hypothyroidism: Status: Acute (8) Urinary incontinence: Status: Acute (9) Multifocal pneumonia: Status: Acute (10) Fluid overload: Status: Acute Assessment and Plan: 80 years old lady with PMH of CAD, HTN, diabetes, TIA who presents to the hospital with increasing shortness of breath and cough. The patient was exposed S she was admitted to COVID-19 unit initially. Will keep her on isolation for the time being in private room. Acute hypoxic respiratory failure Secondary to CHF VS multifocal pneumonia oxygen weaned down to 3-4 L Continue Diuresis with IV Lasix Treatment with antibiotic for suspected underlying pneumonia pulmonology input appreciated, more likely fluid overload and CHF Multifocal infiltrates Likely secondary to atelectasis VS pulmonary infection Negative respiratory panel Negative COVID test CT scan concerning for multifocal pneumonia or fluid overload Repeated CXR on 10/16/2020 showing mild improvement continue doxycycline and ceftriaxone Negative blood cultures Isolation for now, to retest COVID in few days before discharge the patient was exposed at time of admission were she was placed in the COVID unit Discontinue steroids Infectious disease consult Elevated troponin Likely secondary to sepsis EKG not showing any ST or T-wave changes to suggest ACS Evaluated by Cardiology, continue diureses for now echo done report pending Suprapubic catheter leaking The tube was changed last week by Dr. Sharma urology consult Hypertension Continue amlodipine, atenolol Diabetes type 2 Continue SSI Lantus 20 units at bedtime Diabetic diet DVT PPX Heparin
[2020-10-17 16:53] LABS: Glucose, Whole Blood 181 mg/dL (60-115)
[2020-10-17 20:41] LABS: Glucose, Whole Blood 198 mg/dL (60-115)
[2020-10-17] MEDS: Atorvastatin Calcium 20 MG TABLET PO (20:55)
[2020-10-17] MEDS: Insulin Glargine,Hum.rec.anlog 100 UNIT/ML 10 ML VIAL 20 UNIT SUBCUT (20:57)
[2020-10-18] VITALS (9 sets, daily range): BP systolic 115–168; BP diastolic 57–87; PULSE 51–82; RESP 18–20; TEMP 36.3–36.7; O2SAT 93–99
[2020-10-18] MEDS: 0.9 % Sodium Chloride Flush 3 ML SYRINGE IVFLUSH ×4 (01:11→23:43)
[2020-10-18] MEDS: Heparin Sodium,Porcine 5,000 UNIT/ML VIAL 5000 UNIT SUBCUT ×3 (04:29→20:55)
[2020-10-18] MEDS: Oseltamivir Phosphate 75 MG CAPSULE PO (04:29)
[2020-10-18] MEDS: Levothyroxine Sodium 25 MCG TABLET PO (06:02)
[2020-10-18 06:37] LABS: Anion Gap 13 (12-20); Blood Urea Nitrogen 44 mg/dL (9-16); Calcium 8.3 mg/dL (8.4-10.2); Carbon Dioxide 30 mmol/L (22-29); Chloride 102 mmol/L (96-108); Creatinine Clr Calc Pharmacy 30.2; Estimated Glomerular Filt Rate 27; Glucose Random 178 mg/dL (60-115); Magnesium 1.9 mg/dL (1.6-2.6); Potassium 4.4 mmol/l (3.3-5.1); Sodium 141 mmol/L (135-145)
[2020-10-18] MEDS: Furosemide 40 MG/4 ML VIAL IVPUSH (09:01)
[2020-10-18] MEDS: Aspirin Enteric Coated 81 MG TABLET.DR PO (09:02)
[2020-10-18] MEDS: amLODIPine Besylate 10 MG TABLET PO (09:02)
[2020-10-18] MEDS: polyethylene glycoL 3350 17 GM POWD.PACK PO (09:03)
[2020-10-18 09:26] LABS: Glucose, Whole Blood 152 mg/dL (60-115)
[2020-10-18] MEDS: Insulin Lispro 100 UNIT/ML 3 ML VIAL SUBCUT ×4 (09:27→21:11)
[2020-10-18] MEDS: cefTRIAXone sodium 1 GM in 0.9 % Sodium Chloride 50 ML IV (11:14)
[2020-10-18 11:35] LABS: Glucose, Whole Blood 174 mg/dL (60-115)
[2020-10-18] MEDS: Doxycycline Hyclate 100 MG in 0.9 % Sodium Chloride 250 ML 166.67 MG IV (11:52)
--- NOTE | 2020-10-18 13:11 | PM.PNCARD ---
Subjective Subjective Date of Service: 10/18/20 Interval history: Breathing is improving. Blood pressure control improving. Review of Systems Review of Systems No chest pain. Yes all other systems are reviewed and are negative Physical Exam Vital Signs: Last Vital Signs Temp 98.0 F 10/18/20 09:00 Pulse 51 10/18/20 09:29 Resp 19 10/18/20 09:00 BP 147/83 H 10/18/20 09:29 Pulse Ox 97 10/18/20 09:00 Body Mass Index 36.6 GENERAL APPEARANCE: in no acute distress. HEENT: unremarkable. HEAD: normocephalic, atraumatic. NECK/THYROID: no carotid bruit, no jugular venous distention. SKIN: no suspicious lesions, warm and dry. HEART: no murmurs, regular rate and rhythm, S1, S2 normal. LUNGS: Few crackles at bases. ABDOMEN: normal, bowel sounds present, soft, nontender, nondistended. EXTREMITIES: no clubbing, cyanosis, or edema. PERIPHERAL PULSES: equal. NEUROLOGIC: nonfocal, alert and oriented. PSYCH: mood/affect full range. Results Labs and Meds Result diagrams: 10/17/20 07:17 10/18/20 05:47 Lab results: Laboratory Results - last 24 hr 10/17/20 10/17/20 10/18/20 16:45 20:36 05:47 Sodium 141 Potassium 4.4 Chloride 102 Carbon Dioxide 30 H Anion Gap 13 BUN 44 H Creatinine 1.80 H Estim Creat Clear Calc 30.2 Estimated GFR 27 POC Glucose 181 H 198 H Random Glucose 178 H D Calcium 8.3 L Magnesium 1.9 10/18/20 10/18/20 09:16 11:31 Sodium Potassium Chloride Carbon Dioxide Anion Gap BUN Creatinine Estim Creat Clear Calc Estimated GFR POC Glucose 152 H 174 H Random Glucose Calcium Magnesium Progress Note: A&P Assessment and plan (1) Congestive heart failure: Status: Acute (2) Multifocal pneumonia: Status: Acute Assessment and Plan: 80-year-old female with background of coronary disease and previous stenting while she was in [place] who presented with shortness of breath. Imaging showed bilateral infiltrates with differential multifocal pneumonia versus congestive heart failure. She was given antibiotics and diuresed. Echocardiography has showed normal biventricular function with elevated filling pressures. She is improving with the antibiotics as well as diuretics. I think there was clearly congestive heart failure in her case and was likely due to elevated blood pressures. I think the IV diuretics can be stopped and she can be changed to oral diuretics tomorrow at 40 mg twice a day. If blood pressure continues to be high than her home lisinopril can be resumed. I think she is at baseline creatinine. Signing off. Please call us if you have any questions. Fall Risk Details Current Medications: Current Medications Generic Name Dose Route Start Last Admin Trade Name Mary PRN Reason Stop Dose Admin Amlodipine Besylate 10 mg 10/18/20 09:00 10/18/20 09:02 Amlodipine Besylate 10 Mg Tablet PO 10 mg DAILY [facility] Administration Protocol Aspirin 81 mg 10/14/20 09:00 10/18/20 09:02 Aspirin Enteric Coated 81 Mg Tablet. PO 81 mg DAILY [facility] Administration Atenolol 100 mg 10/14/20 09:00 10/18/20 09:29 Atenolol 100 Mg Tablet PO Not Given DAILY [facility] Protocol Atorvastatin Calcium 20 mg 10/14/20 21:00 10/17/20 20:55 Atorvastatin Calcium 20 Mg Tablet PO 20 mg BEDTIME [facility] Administration Heparin Sodium (Porcine) 5,000 unit 10/14/20 12:13 10/18/20 11:52 Heparin Sodium,Porcine 5,000 Unit/Ml Vial SUBCUT 5,000 unit Q8H [facility] Administration Ceftriaxone Sodium 1 gm/ 50 mls @ 100 mls/hr 10/14/20 11:50 10/18/20 11:50 Sodium Chloride IV Infused Q24H [facility] Infusion Doxycycline Hyclate 100 mg/ 250 mls @ 166.67 mls/hr 10/14/20 11:50 10/18/20 11:52 Sodium Chloride IV 166.67 mls/hr Q24H [facility] Administration Insulin Glargine 20 unit 10/14/20 21:00 10/17/20 20:57 Insulin Glargine,Hum.Rec.Anlog 100 Unit/Ml 10 Ml Vial SUBCUT 20 unit BEDTIME [facility] Administration Insulin Human Lispro 0 unit 10/16/20 16:30 10/18/20 11:51 Insulin Lispro 100 Unit/Ml 3 Ml Vial SUBCUT 2 unit QIDACHS [facility] Administration Protocol Levothyroxine Sodium 25 mcg 10/14/20 06:00 10/18/20 06:02 Levothyroxine Sodium 25 Mcg Tablet PO 25 mcg DAILY@0600 [facility] Administration Oseltamivir Phosphate 75 mg 10/16/20 16:00 10/18/20 04:29 Oseltamivir Phosphate 75 Mg Capsule PO 10/21/20 04:01 75 mg Q12H [facility] Administration Oxybutynin Chloride 10 mg 10/14/20 09:00 10/18/20 09:02 Oxybutynin Chloride Er 5 Mg Tab.Er.24 PO 10 mg DAILY [facility] Administration Polyethylene Glycol 17 gm 10/15/20 18:35 10/18/20 09:03 Polyethylene Glycol 3350 17 Gm Powd.Pack PO 17 gm DAILY [facility] Administration Sodium Chloride 3 ml 10/14/20 21:28 10/18/20 09:03 0.9 % Sodium Chloride Flush 3 Ml Syringe IVFLUSH 3 ml QSHIFT [facility] Administration Time Spent With Patient Time: Total time spent is greater than 50% in coordination of care (as documented) at patient's floor/unit and/or counseling patient: Time with patient: less than 15 minutes
--- NOTE | 2020-10-18 14:45 | HO.PM.IMPN ---
Subjective Subjective Date of Service: 10/18/20 Interval History: Patient was seen and evaluated this morning Laying in bed, feels much better as dyspnea has improved Denies any fever, chills shortness of breath has improving No reported other overnight events. Constitutional Constitutional: Reports as per HPI Physical Exam Vital Signs: Vital Signs: Last Vital Signs Temp 97.6 F 10/18/20 12:00 Pulse 67 10/18/20 12:00 Resp 18 10/18/20 12:00 BP 147/68 H 10/18/20 12:00 Pulse Ox 98 10/18/20 12:00 Body Mass Index 36.6 Const: General: cooperative, comfortable and no acute distress Orientation/consciousness: oriented to person, oriented to place and oriented to time HENMT: Head: Yes normal to inspection Eyes: General: appearance normal, both eyes and all related structures Neck: Neck: Yes normal visual inspection Chest: Chest palpation & inspection: normal inspection of the chest Resp: Effort & Inspection: normal respiratory effort Auscultation: clear to auscultation bilaterally Cardio: Jugular venous distension: no JVD Rate: regular rate Rhythm: abnormal rhythm Heart sounds: S1 normal heart sound present and S2 normal heart sound present GI: Inspection: Yes normal to inspection Skin: General skin exam: no rashes or lesions noted Neuro: General: oriented to person, oriented to place and oriented to time Cognition (Neuro): normal cognition Objective Data Current Medications Generic Name Dose Route Start Last Admin Trade Name Freq PRN Reason Stop Dose Admin Amlodipine Besylate 10 mg 10/18/20 09:00 10/18/20 09:02 Amlodipine Besylate 10 Mg Tablet PO 10 mg DAILY [facility] Administration Protocol Aspirin 81 mg 10/14/20 09:00 10/18/20 09:02 Aspirin Enteric Coated 81 Mg Tablet. PO 81 mg DAILY [facility] Administration Atenolol 100 mg 10/14/20 09:00 10/18/20 09:29 Atenolol 100 Mg Tablet PO Not Given DAILY [facility] Protocol Atorvastatin Calcium 20 mg 10/14/20 21:00 10/17/20 20:55 Atorvastatin Calcium 20 Mg Tablet PO 20 mg BEDTIME [facility] Administration Furosemide 40 mg 10/19/20 09:00 Furosemide 40 Mg Tablet PO BID@0900,1800 [facility] Protocol Heparin Sodium (Porcine) 5,000 unit 10/14/20 12:13 10/18/20 11:52 Heparin Sodium,Porcine 5,000 Unit/Ml Vial SUBCUT 5,000 unit Q8H [facility] Administration Ceftriaxone Sodium 1 gm/ 50 mls @ 100 mls/hr 10/14/20 11:50 10/18/20 11:50 Sodium Chloride IV Infused Q24H [facility] Infusion Doxycycline Hyclate 100 mg/ 250 mls @ 166.67 mls/hr 10/14/20 11:50 10/18/20 13:36 Sodium Chloride IV Infused Q24H [facility] Infusion Insulin Glargine 20 unit 10/14/20 21:00 10/17/20 20:57 Insulin Glargine,Hum.Rec.Anlog 100 Unit/Ml 10 Ml Vial SUBCUT 20 unit BEDTIME [facility] Administration Insulin Human Lispro 0 unit 10/16/20 16:30 10/18/20 11:51 Insulin Lispro 100 Unit/Ml 3 Ml Vial SUBCUT 2 unit QIDACHS [facility] Administration Protocol Levothyroxine Sodium 25 mcg 10/14/20 06:00 10/18/20 06:02 Levothyroxine Sodium 25 Mcg Tablet PO 25 mcg DAILY@0600 [facility] Administration Patient Own 1 each 10/18/20 13:30 10/18/20 13:42 Medication ( EYE-LEFT 1 each Ketorolac Opth [place] 0 QID [facility] Administration .5 %) Oseltamivir Phosphate 75 mg 10/16/20 16:00 10/18/20 04:29 Oseltamivir Phosphate 75 Mg Capsule PO 10/21/20 04:01 75 mg Q12H [facility] Administration Oxybutynin Chloride 10 mg 10/14/20 09:00 10/18/20 09:02 Oxybutynin Chloride Er 5 Mg Tab.Er.24 PO 10 mg DAILY [facility] Administration Polyethylene Glycol 17 gm 10/15/20 18:35 10/18/20 09:03 Polyethylene Glycol 3350 17 Gm Powd.Pack PO 17 gm DAILY [facility] Administration Sodium Chloride 3 ml 10/14/20 21:28 10/18/20 09:03 0.9 % Sodium Chloride Flush 3 Ml Syringe IVFLUSH 3 ml QSHIFT [facility] Administration Labs CBC & Chem 7: 10/17/20 07:17 10/18/20 05:47 Microbiology Microbiology Results: Microbiology 10/13/20 23:43 Blood - Venous Blood Culture - Preliminary No growth after 48 hours. 12/12/20 23:43 Blood - Venous Blood Culture - Preliminary No growth after 48 hours. Assessment and Plan (1) Sepsis: Status: Acute (2) CKD (chronic kidney disease): Status: Acute Assessment and Plan: (3) Elevated troponin: Status: Acute (4) CAD (coronary artery disease): Status: Acute (5) Hypertension: Status: Acute (6) Diabetes: Status: Acute (7) Hypothyroidism: Status: Acute (8) Urinary incontinence: Status: Acute (9) Multifocal pneumonia: Status: Acute (10) Fluid overload: Status: Acute Assessment and Plan: 80 years old lady with PMH of CAD, HTN, diabetes, TIA who presents to the hospital with increasing shortness of breath and cough. The patient was exposed S she was admitted to COVID-19 unit initially. Will keep her on isolation for the time being in private room. Acute hypoxic respiratory failure Secondary to CHF VS multifocal pneumonia oxygen weaned down to 3-4 L Continue Diuresis with IV Lasix Treatment with antibiotic for suspected underlying pneumonia pulmonology input appreciated, more likely fluid overload and CHF Multifocal infiltrates Likely secondary to atelectasis VS pulmonary infection Negative respiratory panel Negative COVID test CT scan concerning for multifocal pneumonia or fluid overload Repeated CXR on 10/16/2020 showing mild improvement continue doxycycline and ceftriaxone Negative blood cultures Isolation for now, to retest COVID in few days before discharge the patient was exposed at time of admission were she was placed in the COVID unit Discontinue steroids Infectious disease consult Elevated troponin Likely secondary to sepsis EKG not showing any ST or T-wave changes to suggest ACS Evaluated by Cardiology, continue diureses for now echo done shows EF 55-60% no regional wall motion abnormality Suprapubic catheter leaking The tube was changed last week by Dr. Sharma urology consult Hypertension Continue amlodipine, atenolol Diabetes type 2 Continue SSI Lantus 20 units at bedtime Diabetic diet DVT PPX Heparin
[2020-10-18 16:37] LABS: Glucose, Whole Blood 184 mg/dL (60-115)
--- NOTE | 2020-10-18 18:36 | PC.NURSE ---
Patient OOB to chair with minimal assist. Suprapubic tube continues to leak a lot. Vitals stable. Continues on abx. Will continue to monitor.
[2020-10-18] MEDS: Atorvastatin Calcium 20 MG TABLET PO (20:54)
[2020-10-18] MEDS: Insulin Glargine,Hum.rec.anlog 100 UNIT/ML 10 ML VIAL 20 UNIT SUBCUT (20:54)
[2020-10-18 21:10] LABS: Glucose, Whole Blood 163 mg/dL (60-115)
[2020-10-19] VITALS (11 sets, daily range): BP systolic 127–168; BP diastolic 59–92; PULSE 61–110; RESP 18–20; TEMP 36.4–37.1; O2SAT 94–98
[2020-10-19] MEDS: Heparin Sodium,Porcine 5,000 UNIT/ML VIAL 5000 UNIT SUBCUT ×3 (03:34→21:19)
[2020-10-19] MEDS: Levothyroxine Sodium 25 MCG TABLET PO (06:30)
[2020-10-19 08:00] LABS: Glucose, Whole Blood 166 mg/dL (60-115)
[2020-10-19] MEDS: Insulin Lispro 100 UNIT/ML 3 ML VIAL SUBCUT ×4 (08:26→21:56)
[2020-10-19] MEDS: Furosemide 40 MG TABLET PO ×2 (08:27→17:10)
[2020-10-19] MEDS: amLODIPine Besylate 10 MG TABLET PO (08:27)
[2020-10-19] MEDS: atenoloL 100 MG TABLET PO (08:27)
[2020-10-19] MEDS: Aspirin Enteric Coated 81 MG TABLET.DR PO (08:27)
[2020-10-19] MEDS: 0.9 % Sodium Chloride Flush 3 ML SYRINGE IVFLUSH ×3 (08:28→23:50)
[2020-10-19 09:48] LABS: Anion Gap 12 (12-20); Blood Urea Nitrogen 38 mg/dL (9-16); Calcium 8.2 mg/dL (8.4-10.2); Carbon Dioxide 28 mmol/L (22-29); Chloride 102 mmol/L (96-108); Creatinine Clr Calc Pharmacy 35.3; Estimated Glomerular Filt Rate 32; Glucose Random 194 mg/dL (60-115); Sodium 138 mmol/L (135-145)
[2020-10-19 11:13] LABS: Glucose, Whole Blood 198 mg/dL (60-115)
--- NOTE | 2020-10-19 11:21 | MHC.CM.PN ---
CM met with patient re: discharge plan since PT is recommending home PT. Patient's first choice is [facility]. Referral made via [employer]. CM will continue to follow for discharge needs.
[2020-10-19] MEDS: cefTRIAXone sodium 1 GM in 0.9 % Sodium Chloride 50 ML IV (11:41)
[2020-10-19] MEDS: Doxycycline Hyclate 100 MG in 0.9 % Sodium Chloride 250 ML 166.67 MG IV (12:32)
[2020-10-19] MEDS: polyethylene glycoL 3350 17 GM POWD.PACK PO (14:50)
--- NOTE | 2020-10-19 16:46 | HO.PM.IMPN ---
Subjective Subjective Date of Service: 10/19/20 Interval History: Patient was seen and evaluated at bedside Denies any fever, chills shortness of breath has improving No reported other overnight events. Constitutional Constitutional: Reports as per HPI Physical Exam Vital Signs: Vital Signs: Last Vital Signs Temp 97.6 F 10/19/20 11:12 Pulse 62 10/19/20 11:12 Resp 20 10/19/20 11:12 BP 149/92 H 10/19/20 11:12 Pulse Ox 96 10/19/20 11:12 Body Mass Index 36.6 Const: General: cooperative, comfortable and no acute distress Orientation/consciousness: oriented to person, oriented to place and oriented to time HENMT: Head: Yes normal to inspection Eyes: General: appearance normal, both eyes and all related structures Neck: Neck: Yes normal visual inspection Chest: Chest palpation & inspection: normal inspection of the chest Resp: Effort & Inspection: normal respiratory effort Auscultation: clear to auscultation bilaterally Cardio: Jugular venous distension: no JVD Rate: regular rate Rhythm: abnormal rhythm Heart sounds: S1 normal heart sound present and S2 normal heart sound present GI: Inspection: Yes normal to inspection Skin: General skin exam: no rashes or lesions noted Neuro: General: oriented to person, oriented to place and oriented to time Cognition (Neuro): normal cognition Objective Data Current Medications Generic Name Dose Route Start Last Admin Trade Name Boq PRN Reason Stop Dose Admin Amlodipine Besylate 10 mg 10/18/20 09:00 10/19/20 08:27 Amlodipine Besylate 10 Mg Tablet PO 10 mg DAILY [facility] Administration Protocol Aspirin 81 mg 10/14/20 09:00 10/19/20 08:27 Aspirin Enteric Coated 81 Mg Tablet.Dr PO 81 mg DAILY [facility] Administration Atenolol 100 mg 10/14/20 09:00 10/19/20 08:27 Atenolol 100 Mg Tablet PO 100 mg DAILY [facility] Administration Protocol Atorvastatin Calcium 20 mg 10/14/20 21:00 10/18/20 20:54 Atorvastatin Calcium 20 Mg Tablet PO 20 mg BEDTIME [facility] Administration Furosemide 40 mg 10/19/20 09:00 10/19/20 08:27 Furosemide 40 Mg Tablet PO 40 mg BID@0900,1800 [facility] Administration Protocol Heparin Sodium (Porcine) 5,000 unit 10/14/20 12:13 10/19/20 12:33 Heparin Sodium,Porcine 5,000 Unit/Ml Vial SUBCUT 5,000 unit Q8H [facility] Administration Ceftriaxone Sodium 1 gm/ 50 mls @ 100 mls/hr 10/14/20 11:50 10/19/20 12:24 Sodium Chloride IV Infused Q24H [facility] Infusion Doxycycline Hyclate 100 mg/ 250 mls @ 166.67 mls/hr 10/14/20 11:50 10/19/20 14:05 Sodium Chloride IV Infused Q24H [facility] Infusion Insulin Glargine 20 unit 10/14/20 21:00 10/18/20 20:54 Insulin Glargine,Hum.Rec.Anlog 100 Unit/Ml 10 Ml Vial SUBCUT 20 unit BEDTIME [facility] Administration Insulin Human Lispro 0 unit 10/16/20 16:30 10/19/20 11:40 Insulin Lispro 100 Unit/Ml 3 Ml Vial SUBCUT 2 unit QIDACHS [facility] Administration Protocol Levothyroxine Sodium 25 mcg 10/14/20 06:00 10/19/20 06:30 Levothyroxine Sodium 25 Mcg Tablet PO 25 mcg DAILY@0600 [facility] Administration Patient Own 1 each 10/18/20 13:30 10/19/20 14:04 Medication ( EYE-LEFT 1 each Ketorolac Opth [place] 0 QID [facility] Administration .5 %) Oxybutynin Chloride 10 mg 10/14/20 09:00 10/19/20 08:27 Oxybutynin Chloride Er 5 Mg Tab.Er.24 PO 10 mg DAILY [facility] Administration Polyethylene Glycol 17 gm 10/15/20 18:35 10/19/20 14:50 Polyethylene Glycol 3350 17 Gm Powd.Pack PO 17 gm DAILY [facility] Administration Sodium Chloride 3 ml 10/14/20 21:28 10/19/20 14:56 0.9 % Sodium Chloride Flush 3 Ml Syringe IVFLUSH 3 ml QSHIFT [facility] Administration Labs CBC & Chem 7: 10/17/20 07:17 10/19/20 08:59 Microbiology Microbiology Results: Microbiology 10/13/20 23:43 Blood - Venous Blood Culture - Final No growth after 5 days. 10/13/20 23:43 Blood - Venous Blood Culture - Final No growth after 5 days. Assessment and Plan (1) Sepsis: Status: Acute (2) CKD (chronic kidney disease): Status: Acute Assessment and Plan: (3) Elevated troponin: Status: Acute (4) CAD (coronary artery disease): Status: Acute (5) Hypertension: Status: Acute (6) Diabetes: Status: Acute (7) Hypothyroidism: Status: Acute (8) Urinary incontinence: Status: Acute (9) Multifocal pneumonia: Status: Acute (10) Fluid overload: Status: Acute Assessment and Plan: 80 years old lady with PMH of CAD, HTN, diabetes, TIA who presents to the hospital with increasing shortness of breath and cough. The patient was exposed , she was admitted to COVID-19 unit initially. Will keep her on isolation for the time being in private room. Acute hypoxic respiratory failure Secondary to CHF VS multifocal pneumonia improving received IV diuresis switched to p.o. Lasix per Cardiology Treatment with antibiotic for suspected underlying pneumonia pulmonology input appreciated, more likely fluid overload and CHF Multifocal infiltrates Likely secondary to atelectasis VS pulmonary infection Negative respiratory panel Negative COVID test CT scan concerning for multifocal pneumonia or fluid overload Repeated CXR on 10/16/2020 showing mild improvement continue doxycycline and ceftriaxone Negative blood cultures Isolation for now, to retest COVID in few days before discharge the patient was exposed at time of admission were she was placed in the COVID unit Discontinue steroids Elevated troponin Likely secondary to sepsis EKG not showing any ST or T-wave changes to suggest ACS Evaluated by Cardiology, continue diureses for now echo done shows EF 55-60% no regional wall motion abnormality Suprapubic catheter leaking improved The tube was changed last week by Dr. Sharma urology consulted Hypertension Continue amlodipine, atenolol Diabetes type 2 Continue SSI Lantus 20 units at bedtime Diabetic diet DVT PPX Heparin debility weakness will get PT evaluation
[2020-10-19] MEDS: Atorvastatin Calcium 20 MG TABLET PO (21:19)
[2020-10-19] MEDS: Insulin Glargine,Hum.rec.anlog 100 UNIT/ML 10 ML VIAL 20 UNIT SUBCUT (21:22)
[2020-10-19 21:26] LABS: Glucose, Whole Blood 243 mg/dL (60-115)
[2020-10-20] VITALS (8 sets, daily range): BP systolic 110–158; BP diastolic 43–78; PULSE 57–69; RESP 18–20; TEMP 36.2–37.2; O2SAT 92–100
[2020-10-20] MEDS: Heparin Sodium,Porcine 5,000 UNIT/ML VIAL 5000 UNIT SUBCUT ×3 (05:26→20:46)
[2020-10-20] MEDS: Levothyroxine Sodium 25 MCG TABLET PO (05:27)
[2020-10-20] MEDS: Aspirin Enteric Coated 81 MG TABLET.DR PO (07:55)
[2020-10-20] MEDS: 0.9 % Sodium Chloride Flush 3 ML SYRINGE IVFLUSH ×2 (07:55→16:12)
[2020-10-20] MEDS: atenoloL 100 MG TABLET PO (07:59)
[2020-10-20] MEDS: Furosemide 40 MG TABLET PO ×2 (08:00→18:10)
[2020-10-20] MEDS: amLODIPine Besylate 10 MG TABLET PO (08:01)
[2020-10-20 08:48] LABS: Glucose, Whole Blood 126 mg/dL (60-115)
[2020-10-20 09:38] LABS: Anion Gap 14 (12-20); Blood Urea Nitrogen 30 mg/dL (9-16); Carbon Dioxide 31 mmol/L (22-29); Chloride 102 mmol/L (96-108); Creatinine Clr Calc Pharmacy 35.3; Estimated Glomerular Filt Rate 32; Glucose Random 141 mg/dL (60-115); Potassium 4.7 mmol/l (3.3-5.1); Sodium 142 mmol/L (135-145)
[2020-10-20] MEDS: Insulin Lispro 100 UNIT/ML 3 ML VIAL SUBCUT ×3 (11:36→20:47)
[2020-10-20] MEDS: cefTRIAXone sodium 1 GM in 0.9 % Sodium Chloride 50 ML IV (11:45)
[2020-10-20 12:12] LABS: Glucose, Whole Blood 248 mg/dL (60-115)
[2020-10-20] MEDS: Doxycycline Hyclate 100 MG in 0.9 % Sodium Chloride 250 ML 166.67 MG IV (12:59)
--- NOTE | 2020-10-20 14:27 | MHC.CM.PN ---
[facility] Pts family to transport. [facility] notified of DC via [employer]
--- NOTE | 2020-10-20 14:53 | P.PNIM_ITS ---
Subjective Subjective Date of Service: 10/20/20 Interval History: Patient was seen and evaluated at bedside Denies any fever, chills shortness of breath has improving No reported other overnight events. Constitutional Constitutional: Reports as per HPI Physical Exam Vital Signs: Vital Signs: Last Vital Signs Temp 97.2 F 10/20/20 12:00 Pulse 57 10/20/20 12:00 Resp 20 10/20/20 12:00 BP 119/43 L 10/20/20 12:00 Pulse Ox 100 10/20/20 12:00 Body Mass Index 36.6 Const: General: cooperative, comfortable and no acute distress Orientation/consciousness: oriented to person, oriented to place and oriented to time HENMT: Head: Yes normal to inspection Eyes: General: appearance normal, both eyes and all related structures Neck: Neck: Yes normal visual inspection Chest: Chest palpation & inspection: normal inspection of the chest Resp: Effort & Inspection: normal respiratory effort Auscultation: clear to auscultation bilaterally Cardio: Jugular venous distension: no JVD Rate: regular rate Rhythm: abnormal rhythm Heart sounds: S1 normal heart sound present and S2 normal heart sound present GI: Inspection: Yes normal to inspection Skin: General skin exam: no rashes or lesions noted Neuro: General: oriented to person, oriented to place and oriented to time Cognition (Neuro): normal cognition Objective Data Current Medications Generic Name Dose Route Start Last Admin Trade Name Freq PRN Reason Stop Dose Admin Amlodipine Besylate 10 mg 10/18/20 09:00 10/20/20 08:01 Amlodipine Besylate 10 Mg Tablet PO 10 mg DAILY SUN Administration Protocol Aspirin 81 mg 10/14/20 09:00 10/20/20 07:55 Aspirin Enteric Coated 81 Mg Tablet.Dr PO 81 mg DAILY SUN Administration Atenolol 100 mg 10/14/20 09:00 10/20/20 07:59 Atenolol 100 Mg Tablet PO 100 mg DAILY SUN Administration Protocol Atorvastatin Calcium 20 mg 10/14/20 21:00 10/19/20 21:19 Atorvastatin Calcium 20 Mg Tablet PO 20 mg BEDTIME SUN Administration Cefuroxime Axetil 250 mg 10/20/20 18:00 Cefuroxime Axetil 250 Mg Tablet PO Q12H SUN Doxycycline Hyclate 100 mg 10/20/20 20:00 Doxycycline Hyclate 100 Mg Tablet PO Q12H SUN Furosemide 40 mg 10/19/20 09:00 10/20/20 08:00 Furosemide 40 Mg Tablet PO 40 mg BID@0900,1800 [facility] Administration Protocol Heparin Sodium (Porcine) 5,000 unit 10/14/20 12:13 10/20/20 12:59 Heparin Sodium,Porcine 5,000 Unit/Ml Vial SUBCUT 5,000 unit Q8H SUN Administration Insulin Glargine 20 unit 10/14/20 21:00 10/19/20 21:22 Insulin Glargine,Hum.Rec.Anlog 100 Unit/Ml 10 Ml Vial SUBCUT 20 unit BEDTIME [facility] Administration Insulin Human Lispro 0 unit 10/16/20 16:30 10/20/20 11:36 Insulin Lispro 100 Unit/Ml 3 Ml Vial SUBCUT 4 unit QIDACHS [facility] Administration Protocol Levothyroxine Sodium 25 mcg 10/14/20 06:00 10/20/20 05:27 Levothyroxine Sodium 25 Mcg Tablet PO 25 mcg DAILY@0600 SUN Administration Patient Own 1 each 10/18/20 13:30 10/20/20 14:26 Medication ( EYE-LEFT 1 each Ketorolac Opth [place] 0 QID SUN Administration .5 %) Oxybutynin Chloride 10 mg 10/14/20 09:00 10/20/20 07:55 Oxybutynin Chloride Er 5 Mg Tab.Er.24 PO 10 mg DAILY SUN Administration Polyethylene Glycol 17 gm 10/15/20 18:35 10/20/20 08:01 Polyethylene Glycol 3350 17 Gm Powd.Pack PO Not Given DAILY [facility] Sodium Chloride 3 ml 10/14/20 21:28 10/20/20 07:55 0.9 % Sodium Chloride Flush 3 Ml Syringe IVFLUSH 3 ml QSHIFT [facility] Administration Labs CBC & Chem 7: 10/17/20 07:17 10/20/20 08:40 Microbiology Microbiology Results: Microbiology 10/13/20 23:43 Blood - Venous Blood Culture - Final No growth after 5 days. 10/13/20 23:43 Blood - Venous Blood Culture - Final No growth after 5 days. Assessment and Plan (1) Sepsis: Status: Acute (2) CKD (chronic kidney disease): Status: Acute Assessment and Plan: (3) Elevated troponin: Status: Acute (4) CAD (coronary artery disease): Status: Acute (5) Hypertension: Status: Acute (6) Diabetes: Status: Acute (7) Hypothyroidism: Status: Acute (8) Urinary incontinence: Status: Acute (9) Multifocal pneumonia: Status: Acute (10) Fluid overload: Status: Acute Assessment and Plan: 80 years old lady with PMH of CAD, HTN, diabetes, TIA who presents to the hospital with increasing shortness of breath and cough. The patient was exposed , she was admitted to COVID-19 unit initially. Will keep her on isolation for the time being in private room. Acute hypoxic respiratory failure Secondary to CHF VS multifocal pneumonia improving Received IV diuresis Switched to p.o. Lasix per Cardiology Treatment with antibiotic for suspected underlying pneumonia pulmonology input appreciated, more likely fluid overload and CHF Multifocal infiltrates Likely secondary to atelectasis VS pulmonary infection Negative respiratory panel Negative COVID test CT scan concerning for multifocal pneumonia or fluid overload Repeated CXR on 10/16/2020 showing mild improvement Continue doxycycline and ceftriaxone Negative blood cultures Isolation , to retest COVID before discharge the patient was exposed at time of admission were she was placed in the COVID unit Discontinue steroids Elevated troponin Likely secondary to sepsis EKG not showing any ST or T-wave changes to suggest ACS Evaluated by Cardiology, continue diureses for now echo done shows EF 55-60% no regional wall motion abnormality Suprapubic catheter leaking improved The tube was changed last week by Dr. Sharma urology consulted Hypertension Continue amlodipine, atenolol Diabetes type 2 Continue SSI Lantus 20 units at bedtime Diabetic diet DVT PPX Heparin debility weakness Pt evulation
[2020-10-20 16:33] LABS: COVID-19 Test Negative (Negative); IDNOW Serial# 9DD0AD1C
[2020-10-20 16:45] LABS: Glucose, Whole Blood 154 mg/dL (60-115)
[2020-10-20 20:40] LABS: Glucose, Whole Blood 181 mg/dL (60-115)
[2020-10-20] MEDS: Atorvastatin Calcium 20 MG TABLET PO (20:46)
[2020-10-20] MEDS: Insulin Glargine,Hum.rec.anlog 100 UNIT/ML 10 ML VIAL 20 UNIT SUBCUT (20:47)
[2020-10-21] VITALS (11 sets, daily range): BP systolic 92–164; BP diastolic 48–86; PULSE 61–117; RESP 16–20; TEMP 36.3–37; O2SAT 94–100
[2020-10-21] MEDS: Heparin Sodium,Porcine 5,000 UNIT/ML VIAL 5000 UNIT SUBCUT (04:01)
[2020-10-21] MEDS: Levothyroxine Sodium 25 MCG TABLET PO (06:19)
[2020-10-21 08:07] LABS: Glucose, Whole Blood 174 mg/dL (60-115)
[2020-10-21] MEDS: Insulin Lispro 100 UNIT/ML 3 ML VIAL SUBCUT ×3 (08:16→21:11)
[2020-10-21] MEDS: amLODIPine Besylate 10 MG TABLET PO (08:17)
[2020-10-21] MEDS: Furosemide 40 MG TABLET PO (08:17)
[2020-10-21] MEDS: Aspirin Enteric Coated 81 MG TABLET.DR PO (08:17)
[2020-10-21] MEDS: polyethylene glycoL 3350 17 GM POWD.PACK PO (08:17)
[2020-10-21] MEDS: 0.9 % Sodium Chloride Flush 3 ML SYRINGE IVFLUSH ×4 (08:18→21:11)
[2020-10-21] MEDS: atenoloL 100 MG TABLET PO (08:18)
[2020-10-21 11:32] LABS: Glucose, Whole Blood 224 mg/dL (60-115)
--- NOTE | 2020-10-21 12:05 | PM.PNCARD ---
Subjective Subjective Date of Service: 10/21/20 Principal diagnosis: Afib Interval history: Developed AFib with RVR this morning. Asymptomatic Review of Systems Review of Systems Dyspnea improving Yes all other systems are reviewed and are negative Physical Exam Vital Signs: Last Vital Signs Temp 97.3 F 10/21/20 11:26 Pulse 109 H 10/21/20 11:26 Resp 18 10/21/20 11:26 BP 121/60 10/21/20 11:26 Pulse Ox 97 10/21/20 11:26 Body Mass Index 36.6 GENERAL APPEARANCE: in no acute distress, well developed, well nourished. HEENT: unremarkable. HEAD: normocephalic, atraumatic. NECK/THYROID: no carotid bruit, no jugular venous distention. SKIN: no suspicious lesions, warm and dry. HEART: no murmurs, irregularly irregular rhythm, S1, S2 normal. LUNGS: Few crackles at bases. ABDOMEN: normal, bowel sounds present, soft, nontender, nondistended. EXTREMITIES: no clubbing, cyanosis, or edema. PERIPHERAL PULSES: equal. NEUROLOGIC: nonfocal, alert and oriented. PSYCH: mood/affect full range. Results Labs and Meds Result diagrams: 10/17/20 07:17 10/20/20 08:40 Lab results: Laboratory Results - last 24 hr 10/20/20 10/20/20 10/20/20 11:18 15:54 16:35 POC Glucose 248 H 154 H COVID-19 (JONEL) Negative COVID-19 Clin Com See Note 10/20/20 10/21/20 10/21/20 20:34 08:01 11:29 POC Glucose 181 H 174 H 224 H COVID-19 (JONEL) COVID-19 Clin Com Progress Note: A&P Assessment and plan (1) Multifocal pneumonia: Status: Acute (2) Congestive heart failure: Status: Acute (3) PAF (paroxysmal atrial fibrillation): Status: Acute Assessment and Plan: 80-year-old female with background of coronary disease and previous stenting while she was in [place] who presented with shortness of breath. Imaging showed bilateral infiltrates with differential multifocal pneumonia versus congestive heart failure. She was given antibiotics and diuresed. Echocardiography has showed normal biventricular function with elevated filling pressures. She has improved significantly. She still has some dyspnea but I think that is due to deconditioning. This morning she developed AFib with RVR. She was about to be discharged. I think she needs anticoagulation because she has high chads Vasc score. Please start on Eliquis 2.5 mg twice a day. Please stop the aspirin. Her creatinine clearance is low and I think atenolol and higher doses is not the best drug to use in her. I would stop the atenolol and change her to metoprolol. I think we should start her on 50 mg 3 times a day. Thank you for allowing me to participate in the care of your patient. Please feel free to contact me if you have any questions. Fall Risk Details Current Medications: Current Medications Generic Name Dose Route Start Last Admin Trade Name Freq PRN Reason Stop Dose Admin Amlodipine Besylate 10 mg 10/18/20 09:00 10/21/20 08:17 Amlodipine Besylate 10 Mg Tablet PO 10 mg DAILY SUN Administration Protocol Apixaban 2.5 mg 10/21/20 11:35 Apixaban 2.5 Mg Tablet PO BID SUN Aspirin 81 mg 10/14/20 09:00 10/21/20 08:17 Aspirin Enteric Coated 81 Mg Tablet.Dr PO 81 mg DAILY [facility] Administration Atorvastatin Calcium 20 mg 10/14/20 21:00 10/20/20 20:46 Atorvastatin Calcium 20 Mg Tablet PO 20 mg BEDTIME [facility] Administration Cefuroxime Axetil 250 mg 10/20/20 18:00 10/21/20 06:19 Cefuroxime Axetil 250 Mg Tablet PO 250 mg Q12H [facility] Administration Furosemide 40 mg 10/19/20 09:00 10/21/20 08:17 Furosemide 40 Mg Tablet PO 40 mg BID@0900,1800 [facility] Administration Protocol Insulin Glargine 20 unit 10/14/20 21:00 10/20/20 20:47 Insulin Glargine,Hum.Rec.Anlog 100 Unit/Ml 10 Ml Vial SUBCUT 20 unit BEDTIME [facility] Administration Insulin Human Lispro 0 unit 10/16/20 16:30 10/21/20 08:16 Insulin Lispro 100 Unit/Ml 3 Ml Vial SUBCUT 2 unit QIDACHS [facility] Administration Protocol Levothyroxine Sodium 25 mcg 10/14/20 06:00 10/21/20 06:19 Levothyroxine Sodium 25 Mcg Tablet PO 25 mcg DAILY@0600 [facility] Administration Metoprolol Tartrate 50 mg 10/21/20 21:00 Metoprolol Tartrate 50 Mg Tablet PO BID SUN Protocol Patient Own 1 each 10/18/20 13:30 10/21/20 08:19 Medication ( EYE-LEFT 1 each Ketorolac Opth [place] 0 QID [facility] Administration .5 %) Omeprazole 20 mg 10/21/20 10:20 Omeprazole 20 Mg Capsule.Dr PO DAILY@0630 SUN Oxybutynin Chloride 10 mg 10/14/20 09:00 10/21/20 08:18 Oxybutynin Chloride Er 5 Mg Tab.Er.24 PO 10 mg DAILY [facility] Administration Polyethylene Glycol 17 gm 10/15/20 18:35 10/21/20 08:17 Polyethylene Glycol 3350 17 Gm Powd.Pack PO 17 gm DAILY [facility] Administration Sodium Chloride 3 ml 10/14/20 21:28 10/21/20 08:18 0.9 % Sodium Chloride Flush 3 Ml Syringe IVFLUSH 3 ml QSHIFT [facility] Administration Time Spent With Patient Time: Total time spent is greater than 50% in coordination of care (as documented) at patient's floor/unit and/or counseling patient: Time with patient: 15 - 24 minutes
--- NOTE | 2020-10-21 12:05 | MHC.CM.PN ---
Pts DC held. Plan is to DC home with [facility] when medically cleared. Family to transport
[2020-10-21] MEDS: Omeprazole 20 MG CAPSULE.DR PO (12:11)
[2020-10-21] MEDS: Apixaban 2.5 MG TABLET PO ×2 (12:11→21:12)
--- NOTE | 2020-10-21 13:21 | P.PNIM_ITS ---
Subjective Subjective Date of Service: 10/21/20 Interval History: Patient was seen and evaluated at bedside Denies any fever, chills patient has shortness of breath patient went into AFib this morning Constitutional Constitutional: Reports as per HPI Physical Exam Vital Signs: Vital Signs: Last Vital Signs Temp 97.3 F 10/21/20 11:26 Pulse 109 H 10/21/20 11:26 Resp 18 10/21/20 11:26 BP 121/60 10/21/20 11:26 Pulse Ox 97 10/21/20 11:26 Body Mass Index 36.6 Const: General: cooperative, comfortable and no acute distress Orientation/consciousness: oriented to person, oriented to place and oriented to time HENMT: Head: Yes normal to inspection Eyes: General: appearance normal, both eyes and all related structures Neck: Neck: Yes normal visual inspection Chest: Chest palpation & inspection: normal inspection of the chest Resp: Effort & Inspection: normal respiratory effort Auscultation: clear to auscultation bilaterally Cardio: Jugular venous distension: no JVD Rhythm: abnormal rhythm Heart sounds: S1 normal heart sound present and S2 normal heart sound present GI: Inspection: Yes normal to inspection Skin: General skin exam: no rashes or lesions noted Neuro: General: oriented to person, oriented to place and oriented to time Cognition (Neuro): normal cognition Objective Data Current Medications Generic Name Dose Route Start Last Admin Trade Name Boq PRN Reason Stop Dose Admin Amlodipine Besylate 10 mg 10/18/20 09:00 10/21/20 08:17 Amlodipine Besylate 10 Mg Tablet PO 10 mg DAILY [facility] Administration Protocol Apixaban 2.5 mg 10/21/20 11:35 10/21/20 12:11 Apixaban 2.5 Mg Tablet PO 2.5 mg BID SUN Administration Aspirin 81 mg 10/14/20 09:00 10/21/20 08:17 Aspirin Enteric Coated 81 Mg Tablet.Dr PO 81 mg DAILY [facility] Administration Atorvastatin Calcium 20 mg 10/14/20 21:00 10/20/20 20:46 Atorvastatin Calcium 20 Mg Tablet PO 20 mg BEDTIME [facility] Administration Cefuroxime Axetil 250 mg 10/20/20 18:00 10/21/20 06:19 Cefuroxime Axetil 250 Mg Tablet PO 250 mg Q12H [facility] Administration Furosemide 40 mg 10/19/20 09:00 10/21/20 08:17 Furosemide 40 Mg Tablet PO 40 mg BID@0900,1800 [facility] Administration Protocol Insulin Glargine 20 unit 10/14/20 21:00 10/20/20 20:47 Insulin Glargine,Hum.Rec.Anlog 100 Unit/Ml 10 Ml Vial SUBCUT 20 unit BEDTIME [facility] Administration Insulin Human Lispro 0 unit 10/16/20 16:30 10/21/20 12:12 Insulin Lispro 100 Unit/Ml 3 Ml Vial SUBCUT 4 unit QIDACHS [facility] Administration Protocol Levothyroxine Sodium 25 mcg 10/14/20 06:00 10/21/20 06:19 Levothyroxine Sodium 25 Mcg Tablet PO 25 mcg DAILY@0600 SUN Administration Metoprolol Tartrate 50 mg 10/21/20 21:00 Metoprolol Tartrate 50 Mg Tablet PO BID [facility] Protocol Patient Own 1 each 10/18/20 13:30 10/21/20 12:12 Medication ( EYE-LEFT 1 each Ketorolac Opth [place] 0 QID [facility] Administration .5 %) Omeprazole 20 mg 10/21/20 10:20 10/21/20 12:11 Omeprazole 20 Mg Capsule.Dr PO 20 mg DAILY@0630 [facility] Administration Oxybutynin Chloride 10 mg 10/14/20 09:00 10/21/20 08:18 Oxybutynin Chloride Er 5 Mg Tab.Er.24 PO 10 mg DAILY SUN Administration Polyethylene Glycol 17 gm 10/15/20 18:35 10/21/20 08:17 Polyethylene Glycol 3350 17 Gm Powd.Pack PO 17 gm DAILY SUN Administration Sodium Chloride 3 ml 10/14/20 21:28 10/21/20 08:18 0.9 % Sodium Chloride Flush 3 Ml Syringe IVFLUSH 3 ml QSHIFT [facility] Administration Labs CBC & Chem 7: 10/17/20 07:17 10/20/20 08:40 Microbiology Microbiology Results: Microbiology 10/13/20 23:43 Blood - Venous Blood Culture - Final No growth after 5 days. 10/13/20 23:43 Blood - Venous Blood Culture - Final No growth after 5 days. Assessment and Plan (1) Sepsis: Status: Acute (2) CKD (chronic kidney disease): Status: Acute Assessment and Plan: (3) Elevated troponin: Status: Acute (4) CAD (coronary artery disease): Status: Acute (5) Hypertension: Status: Acute (6) Diabetes: Status: Acute (7) Hypothyroidism: Status: Acute (8) Urinary incontinence: Status: Acute (9) Multifocal pneumonia: Status: Acute (10) Fluid overload: Status: Acute Assessment and Plan: 80 years old lady with PMH of CAD, HTN, diabetes, TIA who presents to the hospital with increasing shortness of breath and cough. The patient was exposed , she was admitted to COVID-19 unit initially. COVID was negative patient went into AFib this morning new onset of AFib with RVR seen by Cardiology will start on Eliquis will switch atenolol to Lopressor monitor on telemetry Acute hypoxic respiratory failure improving Secondary to CHF VS multifocal pneumonia improving Received IV diuresis Switched to p.o. Lasix per Cardiology Treatment with antibiotic for suspected underlying pneumonia pulmonology input appreciated, more likely fluid overload and CHF will need home oxygen evaluation on discharge Multifocal infiltrates Likely secondary to atelectasis VS pulmonary infection improving Negative respiratory panel Negative COVID test CT scan concerning for multifocal pneumonia or fluid overload Repeated CXR on 10/16/2020 showing mild improvement Continue doxycycline and ceftriaxone Negative blood cultures patient was retested for covid on 10/20 and was negative Discontinue steroids Elevated troponin Likely secondary to sepsis EKG not showing any ST or T-wave changes to suggest ACS Evaluated by Cardiology, continue diureses for now echo done shows EF 55-60% no regional wall motion abnormality Suprapubic catheter leaking resolved The tube was changed last week by Dr. Sharma urology consulted Hypertension Continue amlodipine, atenolol Diabetes type 2 Continue SSI Lantus 20 units at bedtime Diabetic diet DVT PPX Eliquis debility weakness Pt evulated recommended home PT
--- NOTE | 2020-10-21 14:29 | PC.NURSE ---
Addendum entered by Lui Kang RN 10/21/20 19:13: Pt with extra large bowel movement while on the commode. Original Note: At 1345 pt assisted out of chair to commode with assist by this nurse. While on the commode pt became pale, somnolent, and unable to answer questions. Dr. Miranda alerted via [facility], hospitalist office called and Patricia Saleh NP in to see patient. Pt initial vital signs 92/48 manually, pulse 108, o2 sat 95% on 2L and respirations 18. Pt returned to bed and became re-oriented and alert and blood pressure improved. Pt most recent vital signs BP 130/71, Pulse 99, Spo2 98% on 2L NC, and respirations 17.
[2020-10-21 16:25] LABS: Glucose, Whole Blood 126 mg/dL (60-115)
[2020-10-21] MEDS: Insulin Glargine,Hum.rec.anlog 100 UNIT/ML 10 ML VIAL 20 UNIT SUBCUT (21:11)
[2020-10-21] MEDS: Metoprolol Tartrate 50 MG TABLET PO (21:12)
[2020-10-21] MEDS: Atorvastatin Calcium 20 MG TABLET PO (21:12)
[2020-10-21 21:13] LABS: Glucose, Whole Blood 215 mg/dL (60-115)
[2020-10-22] VITALS (7 sets, daily range): BP systolic 117–136; BP diastolic 60–84; PULSE 88–120; RESP 18–20; TEMP 35.6–37; O2SAT 95–100
[2020-10-22] MEDS: Omeprazole 20 MG CAPSULE.DR PO (05:58)
[2020-10-22] MEDS: Levothyroxine Sodium 25 MCG TABLET PO (05:58)
[2020-10-22 07:47] LABS: Glucose, Whole Blood 173 mg/dL (60-115)
[2020-10-22 08:24] LABS: Glucose, Whole Blood 194 mg/dL (60-115)
[2020-10-22] MEDS: amLODIPine Besylate 10 MG TABLET PO (08:34)
[2020-10-22] MEDS: Furosemide 40 MG TABLET PO ×2 (08:34→17:54)
[2020-10-22] MEDS: Apixaban 2.5 MG TABLET PO (08:34)
[2020-10-22] MEDS: Metoprolol Tartrate 50 MG TABLET PO (08:34)
[2020-10-22] MEDS: 0.9 % Sodium Chloride Flush 3 ML SYRINGE IVFLUSH (08:35)
[2020-10-22] MEDS: polyethylene glycoL 3350 17 GM POWD.PACK PO (08:35)
[2020-10-22] MEDS: Insulin Lispro 100 UNIT/ML 3 ML VIAL SUBCUT ×3 (08:35→17:54)
[2020-10-22 11:34] LABS: Glucose, Whole Blood 215 mg/dL (60-115)
--- NOTE | 2020-10-22 14:06 | PM.DS ---
DS: Providers Provider Date of admission: 10/14/20 04:20 Primary care physician: Unknown Physician Consults: 10/14/20 21:28 Consult to Cardiology Routine Consulting Provider: [facility] [place] Cardi[facility] Services Reason for consultation: Elevated troponin Has provider been notified: No Consult to Infectious Diseases Routine Consulting Provider: Sari Marquez Reason for consultation: Suspected covid Has provider been notified: No 10/15/20 16:55 Consult to Pulmonology Routine Consulting Provider: Andrew Yeboah Reason for consultation: For your evaluation & recommendations of acute hypoxic respiratory failure 10/16/20 10:19 Consult to Urology Routine Consulting Provider: Keith Sharma Reason for consultation: suprapubic tube leakage post recent change. for your kind eval. 10/21/20 11:21 Consult to Cardiology Routine Consulting Provider: Anthony Caceres Reason for consultation: afib with RVR DS: Diagnosis Discharge Diagnosis (1) Sepsis: Status: Acute (2) CKD (chronic kidney disease): Status: Acute (3) Elevated troponin: Status: Acute (4) CAD (coronary artery disease): Status: Acute (5) Hypertension: Status: Acute (6) Diabetes: Status: Acute (7) Hypothyroidism: Status: Acute (8) Urinary incontinence: Status: Acute (9) Multifocal pneumonia: Status: Acute (10) Fluid overload: Status: Acute DS: Medications Discharge Medications Home Medications: Home Medications Medication Instructions Recorded Confirmed aspirin 81 mg tablet,delayed 81 mg PO DAILY 09/05/20 10/14/20 release atenolol 100 mg tablet 100 mg PO DAILY 09/05/20 10/14/20 atorvastatin 20 mg tablet 20 mg PO BEDTIME 09/05/20 10/14/20 levothyroxine 25 mcg tablet 25 mcg PO DAILY 09/05/20 10/14/20 oxybutynin chloride 10 mg 10 mg PO DAILY 09/05/20 10/14/20 tablet,extended release 24 hr Lantus Solostar U-100 Insulin 20 unit SUBCUT BEDTIME 10/14/20 10/14/20 lisinopril 1 tab PO DAILY 10/14/20 10/14/20 ketorolac 1 drp OPHTHALMIC-LEFT QID 10/15/20 10/18/20 Previous Rx's Medication Instructions Recorded amlodipine 10 mg PO DAILY #30 tab 10/20/20 cefuroxime axetil 250 mg PO BID 5 Days #10 tab 10/20/20 doxycycline hyclate 100 mg PO BID 5 Days #10 tab 10/20/20 furosemide 40 mg PO BID@0900,1800 30 Days #60 10/20/20 tab omeprazole 20 mg PO DAILY #10 cap 10/21/20 DS: Summary Hospital Course Hospital Course: 80 y/o female with extensive PMHx who presented from home due to SOB. Per history provided by the patient, for the past 7 days has been having worsening dry cough which is now associated with difficulty breathing since yesterday for what decided to come to the ED for further evaluation. Patient denies any chest pain, nausea, vomiting or any episode of fever. Does report a sick contact which is the daughter that was recently diagnosed with covid infection. On presentation to the ED patient was noted to be tachypneic, afebrile, hypoxic which improved after was placed on O2 therapy now on venti mask. WBC of 14, creatinine of 1.75 which is baseline, Troponin 120 which increased to 194. EKG showing irregular rythm but with P waves present, no ST T wave changes. Covid negative but imaging concerning for possible underlying covid infection. Decision for admission given. Patient seen and examined at the bedside, laying down in bed in no acute distress. ROS as above otherwise negative. Physical exam unremarkable. Past Medical History: 1. Coronary artery disease, status post stent placement, followed by Dr. Angel. 2. Osteoarthritis. 3. Hypertension. 4. Dyslipidemia. 5. History of stroke with no residual deficits. 6. Type 2 diabetes. 7. History of TIA. 8. Hypothyroidism. Hospital Course problem humphreys section: 80 years old lady with PMH of CAD, HTN, diabetes, TIA who presents to the hospital with increasing shortness of breath and cough. The patient was exposed , she was admitted to COVID-19 unit initially. COVID was negative 1. AFib humphreys : seen by Cardiology-continue metoprolol,Eliquis 2.Acute hypoxic respiratory failure-probable multifactorial Secondary to CHF VS multifocal pneumonia Patient was started on IV diuresis as well as IV antibiotics: Patient symptom symptom seems to be improving Seen by Cardiology and Infectious Disease patient is going to go home with p.o. antibiotics CHF humphreys patient was transition to p.o. Lasix. Further management outpatient as per Cardiology, cardio may arrange their own appointment. Patient was also evaluated for home oxygen but patient did not qualify because saturating well on room air above 90%. 3.Elevated troponin Likely secondary to sepsis EKG not showing any ST or T-wave changes to suggest ACS Evaluated by Cardiology:echo done shows EF 55-60% no regional wall motion abnormality Continue p.o. Lasix at home. 4.Suprapubic catheter leaking resolved The tube was changed last week by Dr. Sharma Follow-up with Dr. Sharma outpatient. Above management discussed with the patient in detail length she understand and in agreement with the above plan, time spent 50 minutes and 50% time spent on counseling. Significant findings: As above. Procedures performed: None. Treatment and response: As above. Complications: None. Time Spent with Patient Time attestation: Total time spent providing and/or coordinating discharge services: Physical Exam Vital Signs: Vital Signs: Last Vital Signs Temp 97.3 F 10/22/20 12:00 Pulse 88 10/22/20 12:00 Resp 18 10/22/20 12:00 BP 117/63 10/22/20 12:00 Pulse Ox 100 10/22/20 12:00 Body Mass Index 36.6 Physical exam: Constitutional:not in distress . Cvs: rrr, [id number] , no murmur res: clear to auscultation ,no rhonchii or wheezing abd: no rebound or guarding ,nt, bs present. ext pulses present , no cyanosis neuro: axo3 , nonfocal. DS: Data Data Completed and Pending Labs on day of discharge: 10/13/20 22:36 CT angio chest PE protocol Stat 10/13/20 22:38 ECG 12 lead EKG Stat EKG Documentation DIRECTED 10/13/20 22:54 SARS-CoV2/FLU/RSV Stat 10/13/20 23:10 B Type Natriuretic Peptide Stat C Reactive Protein Stat Complete Blood Count Auto Diff Stat Comprehensive Met. Panel Stat D Dimer Stat Lactate Dehydrogenase Stat Prothrombin Time INR Stat SLIDE REVIEW Stat Troponin-I High Sensitivity Stat 10/13/20 23:11 Partial Thromboplastin Time Stat 10/13/20 23:27 iohexoL 350 MG/ML [Omnipaque 350 MG/ML] 65 ml IV ONCE ONE 10/13/20 23:38 Piperacillin Sodium/Tazobactam [Zosyn] 3.375 gm 0.9 % Sodium Chloride [Ns] 50 ml IV ONCE 10/13/20 23:43 Lactic Acid Stat Blood Culture X2 [BC] Stat 10/13/20 23:50 Piperacillin Sodium/Tazobactam [Zosyn] 3.375 gm IV .STK-MED ONE 10/14/20 00:07 0.9 % Sodium Chloride [Ns] 1,779 ml IVCONT 1,779 mls/hr RT BiPAP/CPAP STAT 10/14/20 00:21 Add Laboratory Test Stat 10/14/20 01:54 Troponin-I High Sensitivity Routine Venous Blood Gas Stat 10/14/20 03:40 ECG 12 lead EKG Stat EKG Documentation DIRECTED 10/14/20 04:10 Transfer Order Routine 10/14/20 04:53 Enoxaparin Sodium [Lovenox] 80 mg SUBCUT ONCE ONE 10/14/20 05:00 0.9 % Sodium Chloride [Ns] 1,000 ml IVCONT 75 mls/hr 10/14/20 09:00 amLODIPine Besylate [Norvasc] 5 mg PO DAILY atenoloL [Tenormin] 100 mg PO DAILY lisinopriL [Zestril] 5 mg PO DAILY 10/14/20 11:50 Doxycycline Hyclate [Vibramycin] 100 mg 0.9 % Sodium Chloride [Ns] 250 ml IV Q24H cefTRIAXone sodium [Rocephin] 1 gm 0.9 % Sodium Chloride [Ns] 50 ml IV Q24H methylPREDNISolone Sod Succ/PF [SOLU-MedroL] 40 mg IVPUSH Q24H 10/14/20 12:13 Heparin Sodium,Porcine 5,000 unit SUBCUT Q8H 10/14/20 12:14 Furosemide [Lasix] 20 mg IVPUSH ONCE ONE 10/14/20 12:22 Respiratory Panel Stat 10/14/20 13:08 cefTRIAXone sodium [Rocephin] 1 gm .ROUTE .STK-MED ONE 10/14/20 13:26 Doxycycline Hyclate [Vibramycin] 100 mg IV .STK-MED ONE 10/14/20 21:28 Intake and Output QSHIFTE 10/14/20 21:34 Glucose, Whole Blood Routine 10/14/20 23:02 Basic Metabolic Panel Routine Complete Blood Count Auto Diff Routine SLIDE REVIEW Routine 10/14/20 23:10 Procalcitonin Stat 10/15/20 06:28 Basic Metabolic Panel DAILY@0600 Complete Blood Count no Diff DAILY@0600 10/15/20 10:01 Furosemide [Lasix] 40 mg IVPUSH ONCE ONE 10/15/20 12:10 Doxycycline Hyclate [Vibramycin] 100 mg IV .STK-MED ONE 10/15/20 12:12 cefTRIAXone sodium [Rocephin] 1 gm .ROUTE .STK-MED ONE 10/15/20 16:06 Glucose, Whole Blood Routine 10/15/20 18:00 Furosemide [Lasix] 40 mg IVPUSH BID@0900,1800 10/15/20 18:37 B Type Natriuretic Peptide Routine 10/15/20 20:46 Glucose, Whole Blood Routine 10/16/20 05:28 Basic Metabolic Panel DAILY@0600 C Reactive Protein Routine D Dimer Routine Lactate Dehydrogenase Routine Liver Panel Routine 10/16/20 05:29 Complete Blood Count no Diff DAILY@0600 10/16/20 07:21 Glucose, Whole Blood Routine 10/16/20 08:00 XR chest 1V Routine 10/16/20 11:15 cefTRIAXone sodium [Rocephin] 1 gm .ROUTE .STK-MED ONE 10/16/20 11:19 Glucose, Whole Blood Routine 10/16/20 12:34 Doxycycline Hyclate [Vibramycin] 100 mg IV .STK-MED ONE 10/16/20 15:00 CA echo transthoracic complete Routine 10/16/20 15:10 Troponin-I High Sensitivity Stat 10/16/20 16:00 Oseltamivir Phosphate [Tamiflu] 75 mg PO Q12H 10/16/20 16:30 Insulin Lispro [Humalog] See Protocol SUBCUT QIDACHS 10/16/20 17:32 Glucose, Whole Blood Routine 10/16/20 17:50 B Type Natriuretic Peptide Routine 10/16/20 20:56 Glucose, Whole Blood Routine 10/16/20 21:33 Insulin Lispro [Humalog] See Protocol SUBCUT QIDACHS 10/17/20 07:17 Basic Metabolic Panel DAILY@0600 Complete Blood Count no Diff DAILY@0600 10/17/20 07:37 Glucose, Whole Blood Routine 10/17/20 10:34 amLODIPine Besylate [Norvasc] 5 mg PO NOW STA 10/17/20 10:42 cefTRIAXone sodium [Rocephin] 1 gm .ROUTE .K-MED ONE 10/17/20 11:36 Glucose, Whole Blood Routine 10/17/20 11:42 Doxycycline Hyclate [Vibramycin] [address] ONE 10/17/20 16:45 Glucose, Whole Blood Routine 10/17/20 20:36 Glucose, Whole Blood Routine 10/18/20 05:47 Basic Metabolic Panel Stat Magnesium Stat 10/18/20 09:16 Glucose, Whole Blood Routine 10/18/20 11:09 cefTRIAXone sodium [Rocephin] 1 gm .[address]TE .[facility] ONE 10/18/20 11:31 Glucose, Whole Blood Routine 10/18/20 11:45 Doxycycline Hyclate [Vibramycin] [address] ONE 10/18/20 16:26 Glucose, Whole Blood Routine 10/18/20 20:53 Glucose, Whole Blood Routine 10/19/20 07:54 Glucose, Whole Blood Routine 10/19/20 08:59 Basic Metabolic Panel Routine 10/19/20 09:00 Furosemide [Lasix] 40 mg PO BID@0900,1800 10/19/20 11:07 Glucose, Whole Blood Routine 10/19/20 11:36 cefTRIAXone sodium [Rocephin] 1 gm .[address]TE .[facility] ONE 10/19/20 12:27 Doxycycline Hyclate [Vibramycin] [address] ONE 10/19/20 14:28 Magnesium Hydrox/Alum Hydrox [Maalox] 15 ml PO ONCE ONE 10/19/20 16:58 Glucose, Whole Blood Routine 10/19/20 21:22 Glucose, Whole Blood Routine 10/20/20 07:52 Glucose, Whole Blood Routine 10/20/20 08:40 Basic Metabolic Panel Routine 10/20/20 11:18 Glucose, Whole Blood Routine 10/20/20 11:32 cefTRIAXone sodium [Rocephin] 1 gm .[address]OUTE .[facility] ONE 10/20/20 12:54 Doxycycline Hyclate [Vibramycin] [address] ONE 10/20/20 15:54 COVID-19 ID NOW (Olmedo) Stat 10/20/20 16:35 Glucose, Whole Blood Routine 10/20/20 20:00 Doxycycline Hyclate [Vibramycin] 100 mg PO Q12H 10/20/20 20:34 Glucose, Whole Blood Routine 10/21/20 08:01 Glucose, Whole Blood Routine 10/21/20 11:29 Glucose, Whole Blood Routine 10/21/20 16:20 Glucose, Whole Blood Routine 10/21/20 21:06 Glucose, Whole Blood Routine 10/22/20 07:43 Glucose, Whole Blood Routine 10/22/20 11:31 Glucose, Whole Blood Routine Laboratory Last Values WBC 7.7 X10*3/uL (4.8-10.8) 10/17/20 07:17 RBC 4.75 X10*6/uL (4.20-5.50) 10/17/20 07:17 Hgb 13.6 g/dl (12.0-16.0) 10/17/20 07:17 Hct 42.3 % (37-47) 10/17/20 07:17 MCV 89.1 fL (80-98) 10/17/20 07:17 MCH 28.6 pg (27.0-33.0) 10/17/20 07:17 MCHC 32.2 g/dl (31.0-35.0) 10/17/20 07:17 RDW 14.2 % (11.0-16.0) 10/17/20 07:17 Plt Count 248 X10*3/uL (160-400) 10/17/20 07:17 MPV 9.9 fL (9.4-12.3) 10/17/20 07:17 Immature Gran % (Auto) 0.5 % (0.0-0.4) H 10/14/20 23:02 Neut % (Auto) 91.0 % (45-73) H 10/14/20 23:02 Lymph % (Auto) 4.8 % (20-40) L 10/14/20 23:02 Cochran % (Auto) 3.5 % (2-11) 10/14/20 23:02 Eos % (Auto) 0.0 % (0-4) 10/14/20 23:02 Baso % (Auto) 0.2 % (0-2) 10/14/20 23:02 Lymph # (Auto) 0.5 X10*3/uL (1.2-4.9) L 10/14/20 23:02 Cochran # (Auto) 0.4 X10*3/uL (0.1-1.2) 10/14/20 23:02 Eos # (Auto) 0.0 X10*3/uL (0.0-0.4) 10/14/20 23:02 Baso # (Auto) 0.0 X10*3/uL (0.0-0.2) 10/14/20 23:02 Abs Immat Gran (auto) 0.06 X10*3/uL (0.00-0.03) H 10/14/20 23:02 Absolute Neuts (auto) 10.0 X10*3/uL (2.0-8.3) H 10/14/20 23:02 Absolute Nucleated RBC 0.000 X10*3/uL (0.0-0.012) 10/17/20 07:17 Nucleated RBC % (auto) 0.0 /100WBC (0.0-0.2) 10/17/20 07:17 Smear Tech's Comments VERIFIED 10/14/20 23:02 PT 14.2 SEC (10.8-13.0) H 10/13/20 23:10 INR 1.2 (0.9-1.1) H 10/13/20 23:10 APTT 29.1 SEC (24.1-38.0) 10/13/20 23:11 D-Dimer 1635 NG/ML 10/16/20 05:28 VBG pH 7.31 (7.32-7.43) L 10/14/20 01:54 VBG pCO2 40 mmhg 10/14/20 01:54 VBG pO2 34 mmhg 10/14/20 01:54 VBG HCO3 20 mmol/L 10/14/20 01:54 VBG O2 Saturation 63.4 % 10/14/20 01:54 VBG Base Excess -6.1 mmol/L 10/14/20 01:54 Sodium 142 mmol/L (135-145) 10/20/20 08:40 Potassium 4.7 mmol/l (3.3-5.1) 10/20/20 08:40 Chloride 102 mmol/L (96-108) 10/20/20 08:40 Carbon Dioxide 31 mmol/L (22-29) H 10/20/20 08:40 Anion Gap 14 (12-20) 10/20/20 08:40 BUN 30 mg/dL (9-16) H 10/20/20 08:40 Creatinine 1.54 mg/dL (0.5-1.4) H 10/20/20 08:40 Estim Creat Clear Calc 35.3 10/20/20 08:40 Estimated GFR 32 10/20/20 08:40 POC Glucose 215 mg/dL (60-115) H 10/22/20 11:31 Random Glucose 141 mg/dL (60-115) H 10/20/20 08:40 Lactic Acid 1.8 mmol/L (0.5-2.0) 10/13/20 23:43 Calcium 9.0 mg/dL (8.4-10.2) D 10/20/20 08:40 Magnesium 1.9 mg/dL (1.6-2.6) 10/18/20 05:47 Total Bilirubin 0.6 mg/dL (0.0-1.0) 10/16/20 05:28 Direct Bilirubin 0.3 mg/dL (0.0-0.5) 10/16/20 05:28 AST 21 U/L (5-31) 10/16/20 05:28 ALT 19 U/L (0-31) 10/16/20 05:28 Alkaline Phosphatase 87 U/L (39-117) 10/16/20 05:28 Lactate Dehydrogenase 239 U/L (122-220) H 10/16/20 05:28 Troponin I High Sens 66.4 ng/L (<3.5-17.0) H D 10/16/20 15:10 C-Reactive Protein 8.49 mg/dL (< or = 0.50) H 10/16/20 05:28 B-Natriuretic Peptide 449 pg/mL (<100) H 10/16/20 17:50 Total Protein 7.0 g/dL (6.5-8.0) 10/16/20 05:28 Albumin 3.3 g/dL (3.5-5.0) L 10/16/20 05:28 Procalcitonin 0.08 ng/mL 10/13/20 23:10 Respiratory Panel Damico See Note 10/14/20 12:22 Adenovirus (Rapid PCR) Not Detected (Not Detect.) 10/14/20 12:22 B.pert (TEM-PCR) Not Detected (Not Detect.) 10/14/20 12:22 B.parapertussis DNA PCR Not Detected (Not Detect.) 10/14/20 12:22 C. pneumoniae DNA (PCR) Not Detected (Not Detect.) 10/14/20 12:22 Coronavirus (PCR) NEGATIVE (Negative) 10/13/20 22:54 Coronavirus OC43 (PCR) Not Detected (Not Detect.) 10/14/20 12:22 Coronavirus HKU1 (PCR) Not Detected (Not Detect.) 10/14/20 12:22 Coronavirus 229E (PCR) Not Detected (Not Detect.) 10/14/20 12:22 COVID-19 (JONEL) Negative (Negative) 10/20/20 15:54 COVID-19 Clin Com See Note 10/20/20 15:54 Coronavirus NL63 (PCR) Not Detected (Not Detect.) 10/14/20 12:22 Human Metapneumovir PCR Not Detected (Not Detect.) 10/14/20 12:22 Influenza A (RT-PCR) Not Detected (Not Detect.) 10/14/20 12:22 Influenza Type A (PCR) NEGATIVE (Negative) 10/13/20 22:54 Influenza B (RT-PCR) Not Detected (Not Detect.) 10/14/20 12:22 Influenza Type B (PCR) NEGATIVE (Negative) 10/13/20 22:54 M. pneumoniae (PCR) Not Detected (Not Detect.) 10/14/20 12:22 Parainfluenza 1 (PCR) Not Detected (Not Detect.) 10/14/20 12:22 Parainfluenza 2 (PCR) Not Detected (Not Detect.) 10/14/20 12:22 Parainfluenza 3 (PCR) Not Detected (Not Detect.) 10/14/20 12:22 Parainfluenza 4 (PCR) Not Detected (Not Detect.) 10/14/20 12:22 RSV (PCR) Not Detected (Not Detect.) 10/14/20 12:22 RSV RNA Qual (PCR) NEGATIVE (Negative) 10/13/20 22:54 Entero/Rhino (PCR) Not Detected (Not Detect.) 10/14/20 12:22 SARS-CoV-2 RNA (RT-PCR) Not Detected (Not Detect.) 10/14/20 12:22 Discharge Plan Discharge Anticipated Discharge Date/Time: 10/20/20 14:26 Patient Disposition: Home Health Service Referrals: [facility] [Outside] Keith Sharma MD [Physician] - (Follow-up in 1 week.) Anthony Caceres MD [Physician] - (follow up in 1 week.) Physician,Unknown [Primary Care Provider] - Discharge Medications: New furosemide 40 mg Tablet 40 mg PO BID@0900,1800 30 Days Qty: 60 RF: 0 amlodipine 10 mg Tablet 10 mg PO DAILY Qty: 30 RF: 0 cefuroxime axetil 250 mg tablet 250 mg PO BID 5 Days Qty: 10 RF: 0 doxycycline hyclate 100 mg tablet 100 mg PO BID 5 Days Qty: 10 RF: 0 omeprazole 20 mg capsule,delayed release(DR/EC) 20 mg PO DAILY Qty: 10 RF: 0 Eliquis 2.5 mg Tablet 2.5 mg PO BID Qty: 60 RF: 0 Continued Lantus Solostar U-100 Insulin 100 unit/mL (3 mL) insulin pen 20 unit subcut BEDTIME RF: 0 ketorolac 0.5 % Drops 1 drp ophthalmic-Left QID RF: 0 atorvastatin 20 mg tablet 20 mg PO BEDTIME RF: 0 levothyroxine 25 mcg tablet 25 mcg PO DAILY RF: 0 oxybutynin chloride 10 mg tablet extended release 24hr 10 mg PO DAILY RF: 0 Held lisinopril 5 mg tablet 1 tab PO DAILY RF: 0 Hold Instructions: Resume on 11/22/20. hold until seen by pcp. Discontinued amlodipine 5 mg tablet 5 mg PO DAILY RF: 0 atenolol 100 mg tablet 100 mg PO DAILY RF: 0 aspirin [Adult Aspirin Regimen] 81 mg tablet,delayed release (DR/EC) 81 mg PO DAILY RF: 0 Discharge Orders: Discharge Order (Routine); Ordered 10/22/20 Ordered By: Libby Davenport Diet: advance to usual diet and diabetic diet Activity on Discharge: As tolerated Other Ambulatory Orders: Basic Metabolic Panel (Routine) Timeframe: 1 Week Facility: [facility] - Location: Laboratory Ordered By: Libby Davenport Complete Blood Count no Diff (Routine) Timeframe: 1 Week Facility: [facility] - Location: Laboratory Ordered By: Libby Davenport Visit Report Forms: Patient Portal Discharge page Care Plan Goals: improve system and prevent rehospitalization Health Concerns: shortness of breath Plan of Treatment: p.o. antibiotic and Lasix
--- NOTE | 2020-10-22 14:07 | P.PNCA_ITS ---
Subjective Subjective Date of Service: 10/22/20 <LIZZIE Gomes - Last Filed: 10/22/20 16:36> 10/22/20 <Lew Herrera MD - Last Filed: 10/22/20 18:10> Principal diagnosis: Afib <LIZZIE Gomes - Last Filed: 10/22/20 16:36> Interval history: Cardiology follow up for afib. Seen at 1345. Today she reports feeling well. States yesterday morning she had episodes of lightheadedness which she feels correlated with the start of afib. Since then she has had no recurrent lightheadedness, no sob, cp, palpitation. Slept well. Ambulating in the room. <LIZZIE Gomes - Last Filed: 10/22/20 16:36> Review of Systems Review of Systems as above <LIZZIE Gomes - Last Filed: 10/22/20 16:36> Yes all other systems are reviewed and are negative <LIZZIE Gomes - Last Filed: 10/22/20 16:36> Physical Exam Vital Signs: Last Vital Signs Temp 97.3 F 10/22/20 12:00 Pulse 88 10/22/20 12:00 Resp 18 10/22/20 12:00 BP 117/63 10/22/20 12:00 Pulse Ox 100 10/22/20 12:00 Body Mass Index 36.6 <LIZZIE Gomes - Last Filed: 10/22/20 16:36> Const General: cooperative, no acute distress, alert and awake <LIZZIE Gomes - Last Filed: 10/22/20 16:36> Orientation/consciousness: patient oriented x3 <LIZZIE Gomes - Last Filed: 10/22/20 16:36> HENMT Head: Yes normal to inspection <LIZZIE Gomes Last Filed: 10/22/20 16:36> Neck Neck: Yes normal visual inspection and Yes no JVD <LIZZIE Gomes - Last Filed: 10/22/20 16:36> Resp Effort & Inspection: normal respiratory effort, able to speak in complete sentences and not labored <Linda FairierESTELLEC - Last Filed: 10/22/20 16:36> Auscultation: clear to auscultation bilaterally, no crackles, no rales, no rhonchi and no wheezes <[facility] [facility] - Last Filed: 10/22/20 16:36> Cardio Rhythm: abnormal rhythm (Irregularly irregular) [facility] - Last Filed: 10/22/20 16:36> Heart sounds: S1 normal heart sound present, S2 normal heart sound present, no murmurs and no rubs <[facility] - Last Filed: 10/22/20 16:36> Peripheral pulses: Peripheral pulses 2+ throughout <[facility] - Last Filed: 10/22/20 16:36> GI Inspection: Yes normal to inspection <[facility] - Last Filed: 10/22/20 16:36> Neuro General: patient oriented x3 [facility] - Last Filed: 10/22/20 16:36> Extrem General: Yes normal to inspection and No edema [facility] [employer] - Last Filed: 10/22/20 16:36> Results Labs and Meds Result diagrams: : 10/17/20 07:17 10/20/20 08:40 <Linda [facility] - Last Filed: 10/22/20 16:36> Lab results: Laboratory Results - last 24 hr 10/19/20 10/21/20 10/21/20 16:58 16:20 21:06 POC Glucose 194 H 126 H 215 H 10/22/20 10/22/20 07:43 11:31 POC Glucose 173 H 215 H [facility] - Last Filed: 10/22/20 16:36> Progress Note: A&P Assessment and plan (1) Atrial fibrillation: Status: Acute <Linda [facility] - Last Filed: 10/22/20 16:36> Assessment and Plan: Went into atrial fibrillation yesterday am. No prior hx of afib. Treated for rate control. Home atenolol changed to Metoprolol. Cr 1.54. Tele shows afib rates 80s- low 100s. Tolerates well without reported symptoms. On Eliquis for anticoagulation, renal dosing. Echo shows normal BiV function, elevated filling pressures. Can be discharged from cardiology perspective. We will arrange for outpt cardiology follow up. Continue Metoprolol and Eliquis. <LIZZIE Gomes - Last Filed: 10/22/20 16:36> Patient seen and examined. Case discussed with Linda. Patient says her leg edema is much improved. Shortness of breath is much improved. Lungs-clear to auscultation Cardiac exam-irregular S1-S2 Atrial fibrillation currently adequately rate controlled. Continue rate control regimen as before. Will follow-up outpatient after Holter monitor. Continue metoprolol and Eliquis dosing is currently. Management of atrial fibrillation was discussed with patient. If remains in persistent AFib will discuss outpatient rhythm control approach. <Lew Herrera MD - Last Filed: 10/22/20 18:10> (2) Multifocal pneumonia: Status: Acute <LIZZIE Gomes - Last Filed: 10/22/20 16:36> Assessment and Plan: Resolved. Was planning discharge yesterday then went into afib as above <LIZZIE Gomes - Last Filed: 10/22/20 16:36> (3) CAD (coronary artery disease): Status: Acute <LIZZIE Gomes - Last Filed: 10/22/20 16:36> Assessment and Plan: Reported hx of CAD with coronary stents remotely in [place]. No report of anginal sounding symptoms. Continue statin. Off aspirin as she is now on eliquis. Continue Metoprolol. <LIZZIE Gomes - Last Filed: 10/22/20 16:36> (4) Congestive heart failure: Status: Acute <LIZZIE Gomes - Last Filed: 10/22/20 16:36> Assessment and Plan: Congestive heart failure clinically appears to be much better controlled and patient appears to be euvolemic. Has diuresed about -5 L since admission. Continue PO Lasix. Will follow up as outpatient. Thank you for allowing us to partake in his care. Patient can be discharged from cardiac perspective. <Lew Herrera MD - Last Filed: 10/22/20 18:10> Fall Risk Details Current Medications: Current Medications Generic Name Dose Route Start Last Admin Trade Name Mary PRSosa Reason Stop Dose Admin Amlodipine Besylate 10 mg 10/18/20 09:00 10/22/20 08:34 Amlodipine Besylate 10 Mg Tablet PO 10 mg DAILY SUN Administration Protocol Apixaban 2.5 mg 10/21/20 11:35 10/22/20 08:34 Apixaban 2.5 Mg Tablet PO 2.5 mg BID SUN Administration Aspirin 81 mg 10/14/20 09:00 10/22/20 08:44 Aspirin Enteric Coated 81 Mg Tablet. PO Not Given DAILY SUN Atorvastatin Calcium 20 mg 10/14/20 21:00 10/21/20 21:12 Atorvastatin Calcium 20 Mg Tablet PO 20 mg BEDTIME SUN Administration Cefuroxime Axetil 250 mg 10/20/20 18:00 10/22/20 05:58 Cefuroxime Axetil 250 Mg Tablet PO 250 mg Q12H SUN Administration Furosemide 40 mg 10/22/20 09:00 10/22/20 08:34 Furosemide 40 Mg Tablet PO 40 mg BID@0900,1800 SUN Administration Protocol Insulin Glargine 20 unit 10/14/20 21:00 10/21/20 21:11 Insulin Glargine,Hum.Rec.Anlog 100 Unit/Ml 10 Ml Vial SUBCUT 20 unit BEDTIME SUN Administration Insulin Human Lispro 0 unit 10/16/20 16:30 10/22/20 12:21 Insulin Lispro 100 Unit/Ml 3 Ml Vial SUBCUT 4 unit QIDACHS SUN Administration Protocol Levothyroxine Sodium 25 mcg 10/14/20 06:00 10/22/20 05:58 Levothyroxine Sodium 25 Mcg Tablet PO 25 mcg DAILY@0600 SUN Administration Metoprolol Tartrate 50 mg 10/21/20 21:00 10/22/20 08:34 Metoprolol Tartrate 50 Mg Tablet PO 50 mg BID SUN Administration Protocol Patient Own 1 each 10/18/20 13:30 10/22/20 08:36 Medication ( EYE-LEFT 1 each Ketorolac Opth [place] 0 QID SUN Administration .5 %) Omeprazole 20 mg 10/21/20 10:20 10/22/20 05:58 Omeprazole 20 Mg Capsule. PO 20 mg DAILY@0630 SUN Administration Oxybutynin Chloride 10 mg 10/14/20 09:00 10/22/20 08:34 Oxybutynin Chloride Er 5 Mg Tab.Er.24 PO 10 mg DAILY SUN Administration Polyethylene Glycol 17 gm 10/15/20 18:35 10/22/20 08:35 Polyethylene Glycol 3350 17 Gm Powd.Pack PO 17 gm DAILY SUN Administration Sodium Chloride 3 ml 10/14/20 21:28 10/22/20 08:35 0.9 % Sodium Chloride Flush 3 Ml Syringe IVFLUSH 3 ml QSHIFT SUN Administration <LIZZIE Gomes - Last Filed: 10/22/20 16:36> Time Spent With Patient Time: Total time spent is greater than 50% in coordination of care (as documented) at patient's floor/unit and/or counseling patient: <LIZZIE Gomes - Last Filed: 10/22/20 16:36> Time with patient: 15 - 24 minutes <LIZZIE Gomes - Last Filed: 10/22/20 16:36>
--- NOTE | 2020-10-22 14:36 | P.F2F_ITS ---
Service Date Service Date: 10/22/20 Encounter Date of encounter: 10/22/20 Encounter: chf , pneumonia . Reasons for Services Signs and symptoms assessed: Monitor blood pressure, shortness or breath. Homebound: Leaving the home is medically contraindicated at this time without the asist of a device and/or another person due th the listed conditions above and below. Homebound supporting statement: Patient generalized weak and needed help to go to appointments. Patient needs help with labs, PT and RN. Certification: Based on the above findings, I certify that this patient is confined to the home and needs intermittent senior living care, physical therapy and/or speech therapy, or continues to need occupational therapy. The patient is under my care, and I have initiated the establishment of the plan of care. The patient will be followed by a physician who will periodically review the plan of care.
--- NOTE | 2020-10-22 14:41 | MHC.CM.PN ---
Patient will be discharged home today with services from [facility]. 30 day free trial for Eliquis given. Family will provide transport. Nurse and patient aware.
[2020-10-22 16:02] LABS: Glucose, Whole Blood 182 mg/dL (60-115)
== END 2020-10-22 18:00 | disposition home health service (06) | DRG 871 ==
LOC: HO.ED 10-14 00:36 → HO.IMC 10-15 13:03
PROVIDERS: Internal Medicine; Student in an Organized Health Care Education/Training Program; Admitting Provider Internal Medicine; Emergency Provider Student in an Organized Health Care Education/Training Program; Visit Provider Internal Medicine
DX: A41.9 Sepsis, unspecified organism (principal); J18.9 Pneumonia, unspecified organism; J96.01 Acute respiratory failure with hypoxia; N17.9 Acute kidney failure, unspecified; I13.0 Hypertensive heart and chronic kidney disease with heart failure and stage 1 through stage 4 chronic kidney disease, or unspecified chronic kidney disease; N18.30 Chronic kidney disease, stage 3 unspecified; E11.22 Type 2 diabetes mellitus with diabetic chronic kidney disease; I48.0 Paroxysmal atrial fibrillation; R32 Unspecified urinary incontinence; I25.10 Atherosclerotic heart disease of native coronary artery without angina pectoris; T83.038A Leakage of other urinary catheter, initial encounter; E03.9 Hypothyroidism, unspecified; I50.9 Heart failure, unspecified; Z20.828 Contact with and (suspected) exposure to other viral communicable diseases; Z79.4 Long term (current) use of insulin; Z79.01 Long term (current) use of 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; Z79.890 Hormone replacement therapy; Z79.899 Other long term (current) drug therapy
CPT/HCPCS: 0241U; 36415; 71045; 71275; 80048; 80053; 80076; 82803; 82947; 83605; 83615; 83735; 83880; 84145; 84484; 85025; 85027; 85379; 85610; 85730; 86140; 87040; 87633; 87635; 93005; 93306; 96361; 96365; 97110; 97116; 97162; 99284; 99285; J0696; J1650; J1940; J2543; J2920; Q9967

== ENCOUNTER 2020-10-29 13:30 | Outpatient (REF) | payer MEDICARE, SELFPAY ==
[2020-10-29 13:37] LABS: Hematocrit 42.5 % (37-47); Hemoglobin 13.6 g/dl (12.0-16.0); Mean Corpuscular Hemoglobin 29.1 pg (27.0-33.0); Mean Corpuscular Volume 90.8 fL (80-98); Mean Platelet Volume 10.4 fL (9.4-12.3); Platelet Count 323 X10*3/uL (160-400); Red Blood Count 4.68 X10*6/uL (4.20-5.50); Red Cell Distribution Width 14.6 % (11.0-16.0); White Blood Count 11.3 X10*3/uL (4.8-10.8)
[2020-10-29 14:37] LABS: Anion Gap 20 (12-20); Blood Urea Nitrogen 65 mg/dL (9-16); Calcium 8.8 mg/dL (8.4-10.2); Carbon Dioxide 21 mmol/L (22-29); Chloride 104 mmol/L (96-108); Estimated Glomerular Filt Rate 22; Glucose Random 238 mg/dL (60-115); Potassium 4.4 mmol/l (3.3-5.1); Sodium 141 mmol/L (135-145)
== END 2020-10-29 13:31 | disposition home or self-care (01) ==
LOC: HO.HVNA 13:30
PROVIDERS: Visit Provider Internal Medicine
DX: A41.9 Sepsis, unspecified organism (principal); E87.70 Fluid overload, unspecified
CPT/HCPCS: 36415; 80048; 85027

== ENCOUNTER → 2020-11-06 10:42 | Outpatient (BNVA) | payer MEDICARE, SELFPAY | PROVIDERS: PCP Internal Medicine; Visit Provider Urology | DX: N31.9 Neuromuscular dysfunction of bladder, unspecified (principal); B49 Unspecified mycosis | CPT/HCPCS: 51701; 51705; 51710; 99212 ==

== ENCOUNTER → 2020-11-22 10:33 | Outpatient (BNVA) | payer MEDICARE, SELFPAY | PROVIDERS: PCP Internal Medicine; Visit Provider Nurse Practitioner Family | DX: I48.91 Unspecified atrial fibrillation (principal); I13.0 Hypertensive heart and chronic kidney disease with heart failure and stage 1 through stage 4 chronic kidney disease, or unspecified chronic kidney disease; N18.9 Chronic kidney disease, unspecified; I50.9 Heart failure, unspecified; I25.10 Atherosclerotic heart disease of native coronary artery without angina pectoris | CPT/HCPCS: 93005; 99212 ==

== ENCOUNTER 2020-12-12 10:41 | Outpatient (REF) | payer MEDICARE, SELFPAY ==
[2020-12-12 12:56] LABS: Anion Gap 17 (12-20); Blood Urea Nitrogen 48 mg/dL (9-16); Calcium 9.1 mg/dL (8.4-10.2); Carbon Dioxide 27 mmol/L (22-29); Chloride 102 mmol/L (96-108); Estimated Glomerular Filt Rate 21; Glucose Random 135 mg/dL (60-115); Potassium 4.6 mmol/L (3.3-5.1); Sodium 141 mmol/L (135-145)
[2020-12-12 13:03] LABS: B Type Natriuretic Peptide 317 pg/mL (<100)
== END 2020-12-12 10:42 | disposition home or self-care (01) ==
LOC: HO.LAB 10:41
PROVIDERS: PCP Internal Medicine; Visit Provider Nurse Practitioner Family
DX: I13.0 Hypertensive heart and chronic kidney disease with heart failure and stage 1 through stage 4 chronic kidney disease, or unspecified chronic kidney disease (principal); I25.10 Atherosclerotic heart disease of native coronary artery without angina pectoris; E11.22 Type 2 diabetes mellitus with diabetic chronic kidney disease; N18.9 Chronic kidney disease, unspecified; I50.9 Heart failure, unspecified; R06.02 Shortness of breath; I48.20 Chronic atrial fibrillation, unspecified; E03.9 Hypothyroidism, unspecified; Z95.5 Presence of coronary angioplasty implant and graft; Z79.899 Other long term (current) drug therapy
CPT/HCPCS: 36415; 80048; 83880; 99212

== ENCOUNTER → 2020-12-13 09:57 | Outpatient (BNVA) | payer MEDICARE, SELFPAY | PROVIDERS: PCP Internal Medicine; Visit Provider Urology | DX: N31.9 Neuromuscular dysfunction of bladder, unspecified (principal); Z46.6 Encounter for fitting and adjustment of urinary device | CPT/HCPCS: 51705; 51701; 51710; 99212 ==

== ENCOUNTER → 2021-01-11 11:22 | Outpatient (BNVA) | payer MEDICARE, SELFPAY | PROVIDERS: PCP Internal Medicine; Visit Provider Urology | DX: N31.9 Neuromuscular dysfunction of bladder, unspecified (principal); Z46.6 Encounter for fitting and adjustment of urinary device | CPT/HCPCS: 51705; 99212 ==

== ENCOUNTER 2021-02-06 13:33 | Outpatient (REF) | payer MEDICARE, SELFPAY ==
[2021-02-06 17:41] LABS: Estimated Average Glucose 169 mg/dL; Hemoglobin A1c % 7.5 %
[2021-02-06 18:14] LABS: Alanine Aminotransferase 19 U/L (0-31); Albumin Level 3.7 g/dL (3.5-5.0); Alkaline Phosphatase 121 U/L (39-117); Anion Gap 15 (12-20); Aspartate Amino Transferase 25 U/L (5-31); Bilirubin Total 0.3 mg/dL (0.0-1.0); Blood Urea Nitrogen 56 mg/dL (9-16); Calcium 8.4 mg/dL (8.4-10.2); Carbon Dioxide 26 mmol/L (22-29); Chloride 99 mmol/L (96-108); Cholesterol 118 mg/dL; Estimated Glomerular Filt Rate 21; Glucose Random 252 mg/dL (60-115); HDL Cholesterol 29 mg/dL; LDL Cholesterol Calculated 61 mg/dl; Sodium 136 mmol/L (135-145); Total Protein 7.7 g/dL (6.5-8.0); Triglycerides 143 mg/dL
[2021-02-06 18:22] LABS: Thyroid Stimulating Hormone 1.65 uIU/mL (0.32-4.0)
== END 2021-02-06 13:34 | disposition home or self-care (01) ==
LOC: HO.LAB 13:33
PROVIDERS: PCP Internal Medicine; Visit Provider Internal Medicine
DX: E03.9 Hypothyroidism, unspecified (principal); E11.22 Type 2 diabetes mellitus with diabetic chronic kidney disease; I12.9 Hypertensive chronic kidney disease with stage 1 through stage 4 chronic kidney disease, or unspecified chronic kidney disease; N18.9 Chronic kidney disease, unspecified; E78.00 Pure hypercholesterolemia, unspecified
CPT/HCPCS: 36415; 80053; 80061; 83036; 84443

== ENCOUNTER → 2021-02-08 12:58 | Outpatient (BNVA) | payer MEDICARE, SELFPAY | PROVIDERS: PCP Internal Medicine; Visit Provider Urology | DX: N31.9 Neuromuscular dysfunction of bladder, unspecified (principal) | CPT/HCPCS: 51701; 51705; 99212 ==

== ENCOUNTER → 2021-03-08 13:58 | Outpatient (BNVA) | payer MEDICARE, SELFPAY | PROVIDERS: PCP Internal Medicine; Visit Provider Urology | DX: Z46.6 Encounter for fitting and adjustment of urinary device (principal); N31.9 Neuromuscular dysfunction of bladder, unspecified; E08.40 Diabetes mellitus due to underlying condition with diabetic neuropathy, unspecified | CPT/HCPCS: 51701; 51705; 99212 ==

== ENCOUNTER → 2021-04-09 13:46 | Outpatient (BNVA) | payer MEDICARE, SELFPAY | PROVIDERS: Visit Provider Urology | DX: N31.9 Neuromuscular dysfunction of bladder, unspecified (principal); R32 Unspecified urinary incontinence | CPT/HCPCS: 51705; 99212 ==

== ENCOUNTER → 2021-05-09 14:04 | Outpatient (BNVA) | payer MEDICARE, SELFPAY | PROVIDERS: Visit Provider Urology | DX: N31.9 Neuromuscular dysfunction of bladder, unspecified (principal); R32 Unspecified urinary incontinence | CPT/HCPCS: 51705; 52000; 52287; 99212; J0585 ==

== ENCOUNTER → 2021-06-07 15:06 | Outpatient (BNVA) | payer MEDICARE, SELFPAY | PROVIDERS: Visit Provider Urology | DX: N31.9 Neuromuscular dysfunction of bladder, unspecified (principal); N39.0 Urinary tract infection, site not specified; E08.40 Diabetes mellitus due to underlying condition with diabetic neuropathy, unspecified | CPT/HCPCS: 51705; 99212 ==

== ENCOUNTER 2021-06-20 12:57 | Outpatient (REF) | payer MEDICARE, SELFPAY ==
[2021-06-20 14:12] LABS: Prothrombin Time 82.6 SEC (9.9-13.0)
== END 2021-06-20 12:58 | disposition home or self-care (01) ==
LOC: HO.LAB 12:57
PROVIDERS: Visit Provider Internal Medicine
DX: I48.0 Paroxysmal atrial fibrillation (principal); Z51.81 Encounter for therapeutic drug level monitoring; Z79.01 Long term (current) use of 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
CPT/HCPCS: 36415; 85610; 99201; 99202

== ENCOUNTER → 2021-06-21 14:06 | Outpatient (BNVA) | payer MEDICARE, SELFPAY | PROVIDERS: PCP Internal Medicine; Visit Provider Internal Medicine | DX: I48.0 Paroxysmal atrial fibrillation (principal); Z51.81 Encounter for therapeutic drug level monitoring; Z79.01 Long term (current) use of 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 | CPT/HCPCS: 85610; 99211 ==

== ENCOUNTER → 2021-06-24 14:20 | Outpatient (BNVA) | payer MEDICARE, SELFPAY | PROVIDERS: PCP Internal Medicine; Visit Provider Internal Medicine | DX: I48.0 Paroxysmal atrial fibrillation (principal); Z51.81 Encounter for therapeutic drug level monitoring; Z79.01 Long term (current) use of 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 | CPT/HCPCS: 85610; 99211 ==

== ENCOUNTER → 2021-06-26 14:26 | Outpatient (BNVA) | payer MEDICARE, SELFPAY | PROVIDERS: PCP Internal Medicine; Visit Provider Urology | DX: N31.9 Neuromuscular dysfunction of bladder, unspecified (principal) | CPT/HCPCS: 51705 ==

== ENCOUNTER → 2021-06-28 14:22 | Outpatient (BNVA) | payer MEDICARE, SELFPAY | PROVIDERS: PCP Internal Medicine; Visit Provider Internal Medicine | DX: I48.0 Paroxysmal atrial fibrillation (principal); Z51.81 Encounter for therapeutic drug level monitoring; Z79.01 Long term (current) use of 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 | CPT/HCPCS: 85610; 99211 ==

== ENCOUNTER → 2021-07-04 14:39 | Outpatient (BNVA) | payer MEDICARE, SELFPAY | PROVIDERS: PCP Internal Medicine; Visit Provider Internal Medicine | DX: I48.0 Paroxysmal atrial fibrillation (principal); Z51.81 Encounter for therapeutic drug level monitoring; Z79.01 Long term (current) use of 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 | CPT/HCPCS: 85610; 99211 ==

== ENCOUNTER → 2021-07-12 14:08 | Outpatient (BNVA) | payer SELFPAY | PROVIDERS: PCP Internal Medicine; Visit Provider Internal Medicine | DX: I48.0 Paroxysmal atrial fibrillation (principal); Z51.81 Encounter for therapeutic drug level monitoring; Z79.01 Long term (current) use of 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 | CPT/HCPCS: 85610; 99211 ==

== ENCOUNTER → 2021-07-19 13:54 | Outpatient (BNVA) | payer MEDICARE, SELFPAY | PROVIDERS: PCP Internal Medicine; Visit Provider Internal Medicine | DX: I48.0 Paroxysmal atrial fibrillation (principal); Z51.81 Encounter for therapeutic drug level monitoring; Z79.01 Long term (current) use of 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 | CPT/HCPCS: 85610; 99211 ==

== ENCOUNTER → 2021-07-30 13:51 | Outpatient (BNVA) | payer MEDICARE, SELFPAY | PROVIDERS: PCP Internal Medicine; Visit Provider Urology | DX: N31.9 Neuromuscular dysfunction of bladder, unspecified (principal) | CPT/HCPCS: 51701; 51705 ==

== ENCOUNTER → 2021-08-02 14:02 | Outpatient (BNVA) | payer SELFPAY | PROVIDERS: PCP Internal Medicine; Visit Provider Internal Medicine | DX: I48.0 Paroxysmal atrial fibrillation (principal); Z51.81 Encounter for therapeutic drug level monitoring; Z79.01 Long term (current) use of 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 | CPT/HCPCS: 85610; 99211 ==

== ENCOUNTER → 2021-08-16 14:08 | Outpatient (BNVA) | payer SELFPAY | PROVIDERS: PCP Internal Medicine; Visit Provider Internal Medicine | DX: I48.0 Paroxysmal atrial fibrillation (principal); Z51.81 Encounter for therapeutic drug level monitoring; Z79.01 Long term (current) use of 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 | CPT/HCPCS: 85610; 99211 ==

== ENCOUNTER → 2021-08-30 13:51 | Outpatient (BNVA) | payer SELFPAY | PROVIDERS: PCP Internal Medicine; Visit Provider Urology | DX: Z46.6 Encounter for fitting and adjustment of urinary device (principal) | CPT/HCPCS: 51705 ==

== ENCOUNTER 2021-09-03 12:36 | Outpatient (REF) | payer MEDICARE, SELFPAY ==
--- NOTE | ~2021-09-03 | XR_ITS ---
EXAMINATION: XR HIP, LEFT XR HIP, RIGHT CLINICAL INFORMATION: Osteoarthritis COMPARISON: None TECHNIQUE: 2 views of each hip FINDINGS: Left hip: No fracture or dislocation. The hip is well aligned. Joint space narrowing with subchondral sclerosis and osteophyte formation noted. The sacroiliac joints appear symmetric with degenerative change. The pubic symphysis is well aligned. Right hip: No fracture or dislocation. The hip is appropriately aligned. There is severe joint space narrowing with sclerosis and osteophyte formation. Nonobstructive bowel gas pattern. XR/XR hip LT min 2V IMPRESSION: Severe degenerative changes of the right hip. Moderate degenerative changes of the left hip.
--- NOTE | ~2021-09-03 | XR_ITS ---
EXAMINATION: XR HIP, LEFT XR HIP, RIGHT CLINICAL INFORMATION: Osteoarthritis COMPARISON: None TECHNIQUE: 2 views of each hip FINDINGS: Left hip: No fracture or dislocation. The hip is well aligned. Joint space narrowing with subchondral sclerosis and osteophyte formation noted. The sacroiliac joints appear symmetric with degenerative change. The pubic symphysis is well aligned. Right hip: No fracture or dislocation. The hip is appropriately aligned. There is severe joint space narrowing with sclerosis and osteophyte formation. Nonobstructive bowel gas pattern. XR/XR hip RT min 2V IMPRESSION: Severe degenerative changes of the right hip. Moderate degenerative changes of the left hip.
== END 2021-09-03 12:37 | disposition home or self-care (01) ==
LOC: HO.XRAY 12:36
PROVIDERS: PCP Internal Medicine; Visit Provider Internal Medicine
DX: M16.0 Bilateral primary osteoarthritis of hip (principal)
CPT/HCPCS: 73502

== ENCOUNTER → 2021-09-06 14:03 | Outpatient (BNVA) | payer MEDICARE, SELFPAY | PROVIDERS: PCP Internal Medicine; Visit Provider Internal Medicine | DX: I48.0 Paroxysmal atrial fibrillation (principal); Z51.81 Encounter for therapeutic drug level monitoring; Z79.01 Long term (current) use of 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 | CPT/HCPCS: 85610; 99211 ==

== ENCOUNTER → 2021-09-10 13:50 | Outpatient (BNVA) | payer MEDICARE, SELFPAY | PROVIDERS: PCP Internal Medicine; Visit Provider Internal Medicine | DX: I48.0 Paroxysmal atrial fibrillation (principal); Z51.81 Encounter for therapeutic drug level monitoring; Z79.01 Long term (current) use of 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 | CPT/HCPCS: 85610; 99211 ==

== ENCOUNTER → 2021-09-11 14:01 | Outpatient (BNVA) | payer MEDICARE, SELFPAY | PROVIDERS: PCP Internal Medicine; Visit Provider Internal Medicine Cardiovascular Disease | DX: I48.0 Paroxysmal atrial fibrillation (principal); I25.10 Atherosclerotic heart disease of native coronary artery without angina pectoris; I15.1 Hypertension secondary to other renal disorders; E11.22 Type 2 diabetes mellitus with diabetic chronic kidney disease; I13.0 Hypertensive heart and chronic kidney disease with heart failure and stage 1 through stage 4 chronic kidney disease, or unspecified chronic kidney disease; I50.9 Heart failure, unspecified; N18.9 Chronic kidney disease, unspecified; E03.9 Hypothyroidism, unspecified; Z95.5 Presence of coronary angioplasty implant and graft; Z90.49 Acquired absence of other specified parts of digestive tract; Z79.01 Long term (current) use of 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; Z79.4 Long term (current) use of insulin; Z79.899 Other long term (current) drug therapy | CPT/HCPCS: 93005; 99212 ==

== ENCOUNTER → 2021-10-01 14:03 | Outpatient (BNVA) | payer MEDICARE, SELFPAY | PROVIDERS: PCP Internal Medicine; Visit Provider Internal Medicine | DX: I48.0 Paroxysmal atrial fibrillation (principal); Z51.81 Encounter for therapeutic drug level monitoring; Z79.01 Long term (current) use of 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 | CPT/HCPCS: 85610; 99211 ==

== ENCOUNTER → 2021-10-04 10:59 | Outpatient (BNVA) | payer MEDICARE, SELFPAY | PROVIDERS: PCP Internal Medicine; Visit Provider Urology | DX: N31.9 Neuromuscular dysfunction of bladder, unspecified (principal) | CPT/HCPCS: 51705 ==

== ENCOUNTER → 2021-10-24 13:01 | Outpatient (BNVA) | payer MEDICARE, SELFPAY | PROVIDERS: PCP Internal Medicine; Visit Provider Internal Medicine | DX: I48.0 Paroxysmal atrial fibrillation (principal); Z51.81 Encounter for therapeutic drug level monitoring; Z79.01 Long term (current) use of 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 | CPT/HCPCS: 85610; 99211 ==

== ENCOUNTER → 2021-11-04 13:49 | Outpatient (BNVA) | payer MEDICARE, SELFPAY | PROVIDERS: PCP Internal Medicine; Visit Provider Urology | DX: N31.9 Neuromuscular dysfunction of bladder, unspecified (principal) | CPT/HCPCS: 51705 ==

== ENCOUNTER → 2021-11-25 13:25 | Outpatient (BNVA) | payer MEDICARE, SELFPAY | PROVIDERS: PCP Internal Medicine; Visit Provider Internal Medicine | DX: I48.0 Paroxysmal atrial fibrillation (principal); Z51.81 Encounter for therapeutic drug level monitoring; Z79.01 Long term (current) use of 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 | CPT/HCPCS: 85610; 99211 ==

== ENCOUNTER → 2021-12-06 13:17 | Outpatient (BNVA) | payer MEDICARE, SELFPAY | PROVIDERS: PCP Internal Medicine; Visit Provider Urology | DX: Z43.5 Encounter for attention to cystostomy (principal); N31.9 Neuromuscular dysfunction of bladder, unspecified | CPT/HCPCS: 51705 ==

== ENCOUNTER 2021-12-19 12:58 | Outpatient (REF) | payer MEDICARE, SELFPAY ==
[2021-12-19 13:20] LABS: MANUAL DIFF FLAG NO
[2021-12-19 14:19] LABS: Basophils Absolute Auto 0.1 X10*3/uL (0.0-0.2); Basophils Percent Auto 0.7 % (0-2); Eosinophils Absolute Auto 0.2 X10*3/uL (0.0-0.4); Eosinophils Percent Auto 2.7 % (0-4); Hematocrit 37.3 % (37.0-47.0); Hemoglobin 11.8 g/dl (12.0-16.0); Imm Gran Abs Auto 0.04 X10*3/uL (0.00-0.03); Imm Gran Pct Auto 0.5 % (0.0-0.4); Lymphocytes Absolute Auto 1.6 X10*3/uL (1.2-4.9); Lymphocytes Percent Auto 20.5 % (20-40); Mean Corpuscular HGB Conc 31.6 g/dl (31.0-35.0); Mean Corpuscular Hemoglobin 28.2 pg (27.0-33.0); Mean Corpuscular Volume 89.2 fL (80.0-98.0); Mean Platelet Volume 9.5 fL (9.4-12.3); Monocytes Percent Auto 13.4 % (2-11); Neutrophils Absolute Auto 4.8 x10*3/uL (2.0-8.3); Neutrophils Percent Auto 62.2 % (45-73); Platelet Count 256 X10*3/uL (160-400); Red Blood Count 4.18 X10*6/uL (4.20-5.50); Red Cell Distribution Width 15.3 % (11.0-16.0); White Blood Count 7.7 X10*3/uL (4.8-10.8)
[2021-12-19 14:33] LABS: Estimated Average Glucose 200 mg/dL; Hemoglobin A1c % 8.6 %
[2021-12-19 14:40] LABS: Creatinine Urine 58.04 mg/dL; Microalbum/Creatinine Ratio Ur 580.6 ug/mg cr
[2021-12-19 14:42] LABS: Alanine Aminotransferase 21 U/L (0-31); Albumin Level 3.7 g/dL (3.5-5.0); Alkaline Phosphatase 120 U/L (39-117); Anion Gap 13 (12-20); Aspartate Amino Transferase 30 U/L (5-31); Bilirubin Total 0.8 mg/dL (0.0-1.0); Blood Urea Nitrogen 47 mg/dL (9-16); Calcium 9.1 mg/dL (8.4-10.2); Carbon Dioxide 28 mmol/L (22-29); Chloride 102 mmol/L (96-108); Estimated Glomerular Filt Rate 26; Glucose Random 177 mg/dL (60-115); Potassium 4.2 mmol/L (3.3-5.1); Sodium 139 mmol/L (135-145); Total Protein 7.5 g/dL (6.5-8.0)
[2021-12-19 15:04] LABS: Thyroid Stimulating Hormone 2.53 uIU/mL (0.32-4.0); Vitamin D 25-OH Total 29.7 ng/mL (>30)
[2021-12-20 12:46] LABS: Calcium (PTHI) 8.9 mg/dL (8.6-10.4); PTHI 98 pg/mL (14-64)
== END 2021-12-19 12:59 | disposition home or self-care (01) ==
LOC: HO.LAB 12:58
PROVIDERS: PCP Internal Medicine; Visit Provider Internal Medicine
DX: E03.8 Other specified hypothyroidism (principal); E11.22 Type 2 diabetes mellitus with diabetic chronic kidney disease; E11.40 Type 2 diabetes mellitus with diabetic neuropathy, unspecified; E78.00 Pure hypercholesterolemia, unspecified; M16.0 Bilateral primary osteoarthritis of hip; N18.9 Chronic kidney disease, unspecified
CPT/HCPCS: 36415; 80053; 82043; 82306; 83036; 83970; 84443; 85025

== ENCOUNTER → 2021-12-31 13:19 | Outpatient (BNVA) | payer MEDICARE, SELFPAY | PROVIDERS: PCP Internal Medicine; Visit Provider Internal Medicine | DX: I48.0 Paroxysmal atrial fibrillation (principal); Z51.81 Encounter for therapeutic drug level monitoring; Z79.01 Long term (current) use of 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 | CPT/HCPCS: 85610; 99211 ==

== ENCOUNTER → 2022-01-03 13:16 | Outpatient (BNVA) | payer MEDICARE, SELFPAY | PROVIDERS: PCP Internal Medicine; Visit Provider Urology | DX: N31.9 Neuromuscular dysfunction of bladder, unspecified (principal) | CPT/HCPCS: 51705 ==

== ENCOUNTER → 2022-02-05 13:25 | Outpatient (BNVA) | payer MEDICARE, SELFPAY | PROVIDERS: PCP Internal Medicine; Visit Provider Urology | DX: N31.9 Neuromuscular dysfunction of bladder, unspecified (principal) | CPT/HCPCS: 51705 ==

== ENCOUNTER 2022-02-06 13:40 | Outpatient (REF) | payer MEDICARE, SELFPAY ==
[2022-02-10 21:16] LABS: Prot Elec - Albumin 3.7 g/dL (3.8-4.8); Prot Elec - Alpha1 0.3 g/dL (0.2-0.3); Prot Elec - Alpha2 0.9 g/dL (0.5-0.9); Prot Elec - Beta 1 0.5 g/dL (0.4-0.6); Prot Elec - Beta 2 0.6 g/dL (0.2-0.5); Prot Elec - Gamma 1.5 g/dL (0.8-1.7); Prot Elec - Total Protein 7.5 g/dL (6.1-8.1)
== END 2022-02-06 13:41 | disposition home or self-care (01) ==
LOC: HO.LAB 13:40
PROVIDERS: PCP Internal Medicine; Visit Provider Internal Medicine
DX: I48.0 Paroxysmal atrial fibrillation (principal); Z51.81 Encounter for therapeutic drug level monitoring; Z79.01 Long term (current) use of 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; D89.2 Hypergammaglobulinemia, unspecified; E03.8 Other specified hypothyroidism; E11.22 Type 2 diabetes mellitus with diabetic chronic kidney disease; E11.65 Type 2 diabetes mellitus with hyperglycemia; N18.9 Chronic kidney disease, unspecified; Z87.820 Personal history of traumatic brain injury
CPT/HCPCS: 36415; 84165; 85610; 99211

== ENCOUNTER 2022-02-07 13:59 | Outpatient (REF) | payer MEDICARE, SELFPAY | END 2022-02-07 14:00 | disposition home or self-care (01) | LOC: HO.LNP 13:59 | PROVIDERS: Visit Provider Internal Medicine | DX: D89.2 Hypergammaglobulinemia, unspecified (principal); E03.8 Other specified hypothyroidism; E11.22 Type 2 diabetes mellitus with diabetic chronic kidney disease; E11.65 Type 2 diabetes mellitus with hyperglycemia; N18.9 Chronic kidney disease, unspecified; Z87.820 Personal history of traumatic brain injury | CPT/HCPCS: 86335 ==

== ENCOUNTER → 2022-02-20 13:37 | Outpatient (BNVA) | payer MEDICARE, SELFPAY | PROVIDERS: PCP Internal Medicine; Visit Provider Internal Medicine | DX: I48.0 Paroxysmal atrial fibrillation (principal); Z79.01 Long term (current) use of 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; Z51.81 Encounter for therapeutic drug level monitoring | CPT/HCPCS: 85610; 99211 ==

== ENCOUNTER → 2022-03-12 13:45 | Outpatient (BNVA) | payer MEDICARE, SELFPAY | PROVIDERS: PCP Internal Medicine; Visit Provider Urology | DX: N31.9 Neuromuscular dysfunction of bladder, unspecified (principal) | CPT/HCPCS: 51702; 51705 ==

== ENCOUNTER → 2022-03-13 13:41 | Outpatient (BNVA) | payer MEDICARE, SELFPAY | PROVIDERS: PCP Internal Medicine; Visit Provider Internal Medicine | DX: I48.0 Paroxysmal atrial fibrillation (principal); Z79.01 Long term (current) use of 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; Z51.81 Encounter for therapeutic drug level monitoring | CPT/HCPCS: 85610; 99211 ==

== ENCOUNTER 2022-03-26 13:52 | Outpatient (REF) | payer MEDICARE, SELFPAY ==
[2022-03-26 15:09] LABS: Estimated Average Glucose 206 mg/dL; Hemoglobin A1c % 8.8 %
[2022-03-26 16:15] LABS: Alanine Aminotransferase 14 U/L (0-31); Albumin Level 3.6 g/dL (3.5-5.0); Alkaline Phosphatase 121 U/L (39-117); Anion Gap 14 (12-20); Aspartate Amino Transferase 18 U/L (5-31); Bilirubin Total 0.6 mg/dL (0.0-1.0); Blood Urea Nitrogen 43 mg/dL (9-16); Carbon Dioxide 29 mmol/L (22-29); Chloride 101 mmol/L (96-108); Estimated Glomerular Filt Rate 23; Glucose Random 236 mg/dL (60-115); Sodium 140 mmol/L (135-145); Total Protein 7.8 g/dL (6.5-8.0)
[2022-03-26 16:36] LABS: Thyroid Stimulating Hormone 2.74 uIU/mL (0.32-4.0)
== END 2022-03-26 13:53 | disposition home or self-care (01) ==
LOC: HO.LAB 13:52
PROVIDERS: PCP Internal Medicine; Visit Provider Internal Medicine
DX: E11.22 Type 2 diabetes mellitus with diabetic chronic kidney disease (principal); E11.65 Type 2 diabetes mellitus with hyperglycemia; I12.9 Hypertensive chronic kidney disease with stage 1 through stage 4 chronic kidney disease, or unspecified chronic kidney disease; N18.9 Chronic kidney disease, unspecified; M16.11 Unilateral primary osteoarthritis, right hip
CPT/HCPCS: 36415; 80053; 83036; 84443

== ENCOUNTER 2022-03-27 12:16 | Outpatient (REF) | payer MEDICARE, SELFPAY ==
--- NOTE | ~2022-03-27 | XR_ITS ---
EXAMINATION: XR PELVIS CLINICAL INFORMATION: Pain. COMPARISON: Radiographs dated 09/03/2021. TECHNIQUE: 2 AP views of the pelvis are submitted. FINDINGS: There is bony demineralization. There is marked narrowing of the right acetabular joint space, with peripheral osteophyte and subchondral cyst formation of the right hip joint. There is mild narrowing of the left acetabular joint space medially and superolateral. There is a large peripheral osteophyte of the left acetabular roof, and peripheral osteophyte formation is seen of the inferior articular margin of the left femoral head. The bilateral femoral heads appear smooth. This no fracture or dislocation. There are pelvic phleboliths. No foreign body is seen. XR/XR pelvis 1-2V IMPRESSION: There are osteoarthritic changes of the bilateral hips, marked on the right and moderate on the left. No fracture or dislocation is seen.
== END 2022-03-27 12:17 | disposition home or self-care (01) ==
LOC: HO.HOSX 12:16
PROVIDERS: Visit Provider Orthopaedic Surgery
DX: M16.11 Unilateral primary osteoarthritis, right hip (principal)
CPT/HCPCS: 72170; 99202

== ENCOUNTER → 2022-04-10 14:01 | Outpatient (BNVA) | payer MEDICARE, SELFPAY | PROVIDERS: PCP Internal Medicine; Visit Provider Internal Medicine | DX: I48.0 Paroxysmal atrial fibrillation (principal); Z79.01 Long term (current) use of 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; Z51.81 Encounter for therapeutic drug level monitoring | CPT/HCPCS: 85610; 99211 ==

== ENCOUNTER → 2022-04-11 13:45 | Outpatient (BNVA) | payer MEDICARE, SELFPAY | PROVIDERS: PCP Internal Medicine; Visit Provider Urology | DX: N31.9 Neuromuscular dysfunction of bladder, unspecified (principal) | CPT/HCPCS: 51705 ==

== ENCOUNTER → 2022-05-08 14:02 | Outpatient (BNVA) | payer MEDICARE, SELFPAY | PROVIDERS: PCP Internal Medicine; Visit Provider Internal Medicine | DX: I48.0 Paroxysmal atrial fibrillation (principal); Z51.81 Encounter for therapeutic drug level monitoring; Z79.01 Long term (current) use of 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 | CPT/HCPCS: 85610; 99211 ==

== ENCOUNTER → 2022-05-09 14:22 | Outpatient (BNVA) | payer MEDICARE, SELFPAY | PROVIDERS: PCP Internal Medicine; Visit Provider Urology | DX: N31.9 Neuromuscular dysfunction of bladder, unspecified (principal) | CPT/HCPCS: 51705 ==

== ENCOUNTER → 2022-05-28 15:20 | Outpatient (BNVA) | payer MEDICARE, SELFPAY | PROVIDERS: PCP Internal Medicine; Visit Provider Internal Medicine | DX: I48.91 Unspecified atrial fibrillation (principal); Z79.01 Long term (current) use of 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; I13.0 Hypertensive heart and chronic kidney disease with heart failure and stage 1 through stage 4 chronic kidney disease, or unspecified chronic kidney disease; N18.9 Chronic kidney disease, unspecified; I50.9 Heart failure, unspecified; I25.10 Atherosclerotic heart disease of native coronary artery without angina pectoris; M16.11 Unilateral primary osteoarthritis, right hip; Z51.81 Encounter for therapeutic drug level monitoring | CPT/HCPCS: 85610; 93005; 99212 ==

== ENCOUNTER → 2022-06-06 13:54 | Outpatient (BNVA) | payer MEDICARE, SELFPAY | PROVIDERS: PCP Internal Medicine; Visit Provider Urology | DX: N31.9 Neuromuscular dysfunction of bladder, unspecified (principal) | CPT/HCPCS: 51705 ==

== ENCOUNTER 2022-06-09 12:41 | Outpatient (REF) | payer MEDICARE, SELFPAY ==
[2022-06-09 13:56] LABS: Estimated Average Glucose 166 mg/dL; Hemoglobin A1c % 7.4 %
== END 2022-06-09 12:42 | disposition home or self-care (01) ==
LOC: HO.10HDL 12:41
PROVIDERS: Visit Provider Orthopaedic Surgery
DX: Z01.812 Encounter for preprocedural laboratory examination (principal); M16.11 Unilateral primary osteoarthritis, right hip
CPT/HCPCS: 36415; 83036; 99202

== ENCOUNTER → 2022-06-17 14:49 | Outpatient (REF) | payer MEDICARE, SELFPAY ==
--- NOTE | 2022-06-17 14:53 | CA_ITS ---
Transthoracic Echocardiogram Patient (Last, First, Middle): Belen Brady I Gender: Female Date of : 1940 Age: 81 Procedure Date: 06/17/2022 Procedure Type: Transthoracic Echocardiogram Location: OP Height: 165.1 cm Weight: 90.72 kg BSA: 1.98 m2 Heart Rate: bpm BP: 130 / 70 mmHg Turbogenerator Operator: ODLORES Referring MD: Linda Fraga MECHANICAL ADJUSTER-Christina Symptoms: I25.10 - Atherosclerotic heart disease of [place] coronary artery without... Study Quality: Adequate ECG Rhythm: Atrial Fibrillation Conclusions: - The left ventricular systolic function is mildly decreased. The visually estimated ejection fraction is between 45-50%. - The basal inferior segment is hypokinetic. - There is mildly decreased right ventricular systolic function. - The left atrium is moderately dilated. - There is mild to moderate aortic valve stenosis. - There is moderate mitral annular calcification. There is mild to moderate mitral valve regurgitation. Findings Left Ventricle Normal left ventricular cavity size. There is moderately increased left ventricular wall thickness. The left ventricular systolic function is mildly decreased. The visually estimated ejection fraction is between 45-50%. There is evidence of regional wall motion abnormalities. There is mild global hypokinesis. Diastolic function is indeterminate on the basis of available data. Wall Motion Rest Echo Findings The basal inferior segment is hypokinetic. Right Ventricle Normal right ventricular cavity size. There is mildly decreased right ventricular systolic function. Atria The left atrium is moderately dilated. The right atrium is normal in size. Aortic Valve There is moderate calcification of the aortic valve. There is mild to moderate aortic valve stenosis. The mean gradient is 8 mmHg. The aortic valve area is 1.38 cm2. There is no aortic valve regurgitation. Dimensionless index 0.44. Stroke volume index 28cc/m2. Mitral Valve There is moderate mitral annular calcification. There is mild to moderate mitral valve regurgitation. There is no mitral valve stenosis. Pulmonic Valve The pulmonic valve was not well visualized. Tricuspid Valve Normal tricuspid valve structure. There is mild tricuspid valve regurgitation. There is no evidence of pulmonary hypertension. Great Vessels The asc aorta is normal in size. Venous The inferior vena cava is normal in size and collapses greater than 50% with inspiration. Pericardium/Pleural There is no evidence of pericardial effusion. Prior Study Comparison Changes noted compared to prior study dated: 10/16/2020. Slight decrease in LVEF. See comments on valves. Measurements 2D Linear Measurements IVSd: 1.31 0.6-0.9/0.6-1.0 cm LVIDd: 3.98 3.9-5.3/4.2-5.9 cm LVIDd Index: 2.01 2.4-3.2/2.2-3.1 cm/m2 LVIDs: 3.49 2.0-3.6 cm LVPWd: 1.33 0.7-1.1 cm LA Diam: 3.40 2.7-3.8/3.0-4.0 cm LAIDs Index: 1.72 1.5-2.3 cm/m2 LV Mass: 236.16 67-162/88-224 g LV Mass Index: 119.27 43-95/49-115 g/m2 LVOT Diam: 2.00 3.0+(-)1.3 cm 2D Systolic Function EF 4C: 52.20 >55% EF 2C: 46.90 >55% EF BiP: 49.50 >55% Mitral Valve E'Lateral: 7.72 E'Medial: 6.42 MR Vol - PW Dopp: 11.83 MR VTI: 1.69 MR ERO: 7.00 MR Alias Marcus: 0.40 MR RAD: 0.40 Aortic Valve AoV Pk Marcus: 1.84 AoV Mn Marcus: 1.33 AoV VTI: 0.41 AoV Pk Grad: 14.00 Aov Mn Grad: 8.00 ANDI Cont.VTI: 1.38 LVOT LVOT Pk Marcus: 0.81 LVOT Mn Marcus: 0.60 LVOT VTI: 0.18 LVOT Pk Grad: 3.00 LVOT Mn Grad: 2.00 LVOT Diam: 2.00 LVOT Area: 3.14 Diastolic Function E'Medial: 6.42 E' Laterial: 7.72 Right Ventricle TAPSE (mm): 13.90 TVS' Marcus: 6.31 Tricuspid Valve TR Pk Marcus: 2.29 TR Pk Grad: 21.00 Great Vessels Aorta Sinus of Valsalva: 2.63 2.0-3.[address] [place]: 2.31 1.7-3.4 cm Ao Asc: 3.80 2.1-3.4 cm Updated in Other Vendor System with Status of Final Rene Patterson MD electronically signed on 06/18/2022 8:44:22 AM with status of Final
== END ==
LOC: HO.CARD 14:49
PROVIDERS: PCP Internal Medicine; Visit Provider Internal Medicine Cardiovascular Disease
DX: Z01.810 Encounter for preprocedural cardiovascular examination (principal); R06.02 Shortness of breath; I48.91 Unspecified atrial fibrillation; I25.10 Atherosclerotic heart disease of native coronary artery without angina pectoris; I10 Essential (primary) hypertension
CPT/HCPCS: 93306

== ENCOUNTER → 2022-06-26 09:47 | Outpatient (REF) | payer MEDICARE, SELFPAY ==
--- NOTE | ~2022-06-26 | NM_ITS ---
Myocardial perfusion study Indication: Atherosclerotic coronary artery disease to evaluate for myocardial ischemia Technique: The patient was brought in for a Lexiscan perfusion study on 06/26/2022. Patient performed low-level exercise and was injected 0.4 mg of Lexiscan intravenously. Within a minute of injection, 30 mCi of sestamibi was given intravenously. Images were obtained using the SPECT gamma camera interlaced with the gating device. Images were obtained in supine position. Resting perfusion study could not be performed as patient was not able to come back. Rehabilitation facility despite multiple attempts. Images were obtained with and without CT attenuation. Total DLP 35 mGy-cm Images were processed with the software and compared side to side in short axis, horizontal long axis and vertical long axis views. Findings: The stress perfusion study showed non attenuated images show mildly reduced uptake in the anterior wall as well as moderately reduced uptake in the distal anterior wall and moderately reduced uptake in the inferolateral wall of the LV myocardium. Attenuated corrected images show normalized uptake in the anterior wall of the LV myocardium with persistent moderately reduced uptake in the inferolateral wall of the LV myocardium.. The gated study shows reduced LV systolic function with calculated LVEF of 43%. LV cavity is normal in size. The gated study shows reduced wall thickening and contraction of inferolateral segments. Resting study could not be performed The findings are consistent with anterior wall attenuation artifact can't moderate intensity inferolateral wall defect of unclear etiology. NM/NM cardiolite stress test Impression: 1. Myocardial perfusion imaging study shows moderate intensity inferolateral wall defect which could represent ischemia infarction. Resting study was not performed 2. Gated LVEF is 43% 3. Transient ischemic dilatation not evaluated EKG is nondiagnostic for ischemia I was requested to read this study on 07/18/2022
--- NOTE | 2022-06-26 09:51 | CA_ITS ---
Acquisition Time: 2022-06-26 10:58:12 Total Exercise Time: 00:02:00 Test Indications: AFIB SOB Medications: Protocol: LEXISCAN Max HR: 108 BPM 77% of Pred: 139 BPM Max BP: 110/068 mmHG Max Work Load: 1.0 METS Pharmacological stress test with Lexiscan injection, while sitting, without anginal symptoms, with isolated PVCs, with normotensive response to injection, with nondiagnostic EKG for ischemia. Nuclear images pending. Test reviewed with Dr Patterson Referred By: Linda Fraga Overread By: LINDA FRAGA
== END ==
LOC: HO.CARD 09:47
PROVIDERS: PCP Internal Medicine; Visit Provider Nurse Practitioner Family
DX: Z01.810 Encounter for preprocedural cardiovascular examination (principal); I25.10 Atherosclerotic heart disease of native coronary artery without angina pectoris; I48.91 Unspecified atrial fibrillation; I50.9 Heart failure, unspecified; R06.02 Shortness of breath
CPT/HCPCS: 78452; 85610; 93017; 99211; A9500; J0280; J2785

== ENCOUNTER 2022-06-27 12:28 | Inpatient (IN) | payer MEDICARE, SELFPAY ==
[2022-06-27] VITALS (8 sets, daily range): BP systolic 96–153; BP diastolic 42–83; PULSE 91–114; RESP 16; TEMP 36.4–37; O2SAT 93–97; BMI 33.3
--- NOTE | ~2022-06-27 | FL_ITS ---
EXAMINATION: XR FLUOROSCOPY WITH IMAGES CLINICAL INFORMATION: Urinary clot evacuation. COMPARISON: CT abdomen and pelvis noncontrast 06/27/2022. TECHNIQUE: Fluoroscopy performed by Dr. Keith Sharma. Fluoroscopy time: 46 seconds. Cumulative Dose: 17.2 mGy. Images: 2. FINDINGS: There is contrast in the left renal collecting system. There is mild hydronephrosis. No extravasation of contrast. FL/FL guidance in OR IMPRESSION: Fluoroscopy for urologic procedure.
--- NOTE | ~2022-06-27 | XR_ITS ---
EXAMINATION: XR PELVIS CLINICAL INFORMATION: Left hip pain COMPARISON: X-ray 03/27/2022 TECHNIQUE: AP view of the pelvis. FINDINGS: Moderate left hip arthritis, joint space loss, osteophytes, subchondral cysts and sclerosis. Severe right hip arthritis, with prominent osteophytes, joint space loss, cysts and sclerosis. No evidence of acute fracture or dislocation. Mild symphysis pubis degeneration. Mild bilateral SI joint arthritis. Spondylosis in the visualized lower lumbar spine. No acute pelvic fractures identified. Portion of the pelvis is obscured by overlapping gas and stool, in particular limited evaluation of the sacrum and coccyx. Scattered calcifications in the pelvis, similar to previous. XR/XR pelvis 1-2V IMPRESSION: Severe right hip arthritis. Moderate left hip arthritis. No acute fracture or dislocation. Additional degenerative/arthritic changes as above.
--- NOTE | ~2022-06-27 | XR_ITS ---
EXAMINATION: XR CHEST CLINICAL INFORMATION: Shortness breath COMPARISON: October 16, 2020 TECHNIQUE: AP portable view of the chest was obtained. FINDINGS: There is mild disease in the retrocardiac region consistent with atelectasis or scarring left base. No definite confluent pneumonitis is appreciated. No pneumothorax or pleural effusion. Heart normal size. No evidence of pulmonary edema. XR/XR chest 1V IMPRESSION: No significant acute parenchymal disease identified.
--- NOTE | ~2022-06-27 | CT_ITS ---
EXAMINATION: CT ABDOMEN AND PELVIS WITHOUT CONTRAST CLINICAL INFORMATION: Bleeding from urinary catheter and possibly vagina COMPARISON: Chest CT 10/13/2020 TECHNIQUE: Multidetector volumetric imaging was performed from the superior aspect of the liver through the pubic symphysis. Sagittal and coronal reformatted images were obtained on the technologist's workstation. This CT examination was performed using dose optimization techniques as appropriate, variously including the following: *Automated exposure control *Adjustment of mA and/or kV according to patient size (this includes techniques or standardized protocols for targeted exams where dose is matched to indication/reason for exam; i.e. extremities or head) *Use of iterative reconstruction technique DLP: 709 mGy-cm FINDINGS: LUNG BASES: Mild bibasilar atelectasis. LIVER, GALLBLADDER, AND BILIARY TREE: The liver is normal in size, shape, and attenuation. No focal hepatic lesion or biliary ductal dilatation is present. No bladder is absent. Extra hepatic bile duct measures approximately 1 cm in diameter, at the upper limits of normal. Slight prominence of central intrahepatic bile ducts. PANCREAS: Unremarkable. SPLEEN: Unremarkable. ADRENAL GLANDS: 1.6 cm left adrenal nodule with attenuation values 15 Hounsfield units. Normal right adrenal gland. KIDNEYS AND URETERS: Mild renal atrophy on the right with cortical thinning. There is moderate right and mild left hydroureteronephrosis. High attenuation material within dependent portion of the right renal pelvis and an upper pole infundibulum and calyces presumably represents hemorrhage. No renal calculi. 2.5 cm right posterior simple renal cyst. No other renal lesion. Mild perinephric fat stranding bilaterally right greater than left BLADDER: Suprapubic tube in place. There is diffusely thick-walled appearance of the bladder and evidence of hemorrhage and/or polypoid mass within the bladder lumen. GASTROINTESTINAL TRACT: No dilated bowel loops. No bowel wall thickening. Mild colonic diverticulosis. No evidence of acute diverticulitis. Appendix not discretely visualized. No inflammatory changes at the cecal base. No ascites or free air. ABDOMINAL WALL: No significant hernia is appreciated. LYMPH NODES: Small subcentimeter short axis dimension lower para-aortic lymph nodes. Enlarged right iliac chain lymph node on series 3-53 measuring 1.1 cm in short axis. No additional lymphadenopathy. VASCULAR: Moderate vascular calcifications. Normal caliber abdominal aorta. PELVIC VISCERA: Small calcified uterine fibroids. Gynecologic structures otherwise grossly unremarkable. No free pelvic fluid. OSSEOUS STRUCTURES: No acute fracture or suspicious osseous lesion. Advanced multilevel degenerative disc disease and facet arthrosis. 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 Advanced right worse than left hip joint osteoarthritis. CT/CT abdomen pelvis wo con IMPRESSION: 1. Diffusely thick-walled urinary bladder with suprapubic tube in place and high density material in the bladder lumen compatible with hemorrhage and/or bladder mass. 2. Moderate right and mild left hydroureteronephrosis with mild asymmetric right perinephric stranding. 3. Small amount of layering high-density material within the right renal collecting system, consistent with hemorrhage. 4. Mildly enlarged right iliac chain lymph node, nonspecific may be reactive or neoplastic. 5. 1.6 cm indeterminate left adrenal nodule, present on prior chest CT 10/13/2020 suggesting benign etiology such as adenoma.
--- NOTE | ~2022-06-27 | US_ITS ---
EXAMINATION: US PELVIS CLINICAL INFORMATION: 81-year-old female with history of heavy vaginal bleeding. COMPARISON: None TECHNIQUE: Sonographic imaging of the pelvis is performed using a curved 5 MHz transabdominal transducer. FINDINGS: The medical technologist hematology reports that this was an extremely limited examination. The urinary bladder is underdistended and contains a suprapubic catheter. Technologist reports inability to perform a transvaginal examination due to patient immobility. On these transabdominal images, unable to adequately visualize the gynecologic structures. The uterus is not well seen. Neither ovary can be visualized. Considering the ultrasound test limitations, consider whether MR imaging would be warranted. No evidence of pelvic free fluid. US/US pelvic complete IMPRESSION: * Limited, nondiagnostic pelvic imaging examination. * Urinary bladder is underdistended and contains a suprapubic catheter.
--- NOTE | ~2022-06-27 | US_ITS ---
EXAMINATION: LEFT LOWER EXTREMITY DUPLEX CLINICAL INFORMATION: Lower extremity wounds, rule out PAD COMPARISON: None TECHNIQUE: Real-time ultrasound and Doppler techniques (integrating B-mode 2-D vascular images, Doppler spectral analysis and color flow Doppler imaging) were utilized to interrogate the lower extremities. FINDINGS: LEFT LEG: Common femoral artery: 109 cm/s, multiphasic Profunda femoris artery: 87.8 cm/s, multiphasic Superficial femoral artery (proximal): 98 cm/s, multiphasic Superficial femoral artery (mid): 106 cm/s, multiphasic Superficial femoral artery (distal): 87 cm/s, multiphasic Popliteal artery: 54.1 cm/s, no clear diastolic flow reversal Proximal posterior tibial artery: 94.1 cm/s, no clear diastolic flow reversal Mid posterior tibial artery: 90.2 cm/s, multiphasic Distal posterior tibial artery: 77.4 cm/s, multiphasic US/US arterial duplex LE LT IMPRESSION: There is no clear diastolic flow reversal at the level of the popliteal artery or proximal posterior tibial artery suggestive of some degree of distal arterial disease.
--- NOTE | 2022-06-27 12:48 | ED.GENADULT ---
HPI - General Adult General Chief complaint: Extremity Injury, Lower Stated complaint: LT LOWER LEG WOUNDS Time Seen by Provider: 06/27/22 12:48 Source: patient and EMS Mode of arrival: EMS Limitations: no limitations History of Present Illness HPI narrative: Patient is an 81 year old female presenting to the emergency department today with bleeding from her catheter and she is concerned about a spot on her left lower leg. Patient states that she had a chemical cardiac stress test the other day and ever since then she has noticed some bleeding coming from her suprapubic catheter. Patient states that her left lower leg is also bothering her. Patient denies any dizziness, lightheadedness, abdominal pain, nausea, vomiting, fever, chills, blurry vision, double vision, loss of vision, chest pain, difficulty breathing, shortness of breath, back pain, night sweats, pain with urination, increased urinary frequency, increased urinary urgency, blood in her stool, syncope or a near syncopal episode, recent trauma or falls, bowel incontinence, bladder incontinence, bowel retention, bladder retention, or any other complaints at this time. Onset (ago): day(s) (1) Severity: mild Severity scale (1-10): 1 Relieving factors: none Exacerbating factors: none Associated symptoms: denies other symptoms Treatments prior to arrival: none Related Data Home Medications Medication Instructions Recorded Confirmed levothyroxine 25 mcg tablet 25 mcg PO DAILY 09/05/20 05/29/22 oxybutynin chloride 10 mg 10 mg PO DAILY 09/05/20 05/29/22 tablet,extended release 24 hr insulin glargine 100 unit/mL (3 20 unit subcut BEDTIME 10/14/20 05/29/22 mL) subcutaneous pen (Lantus Solostar U-100 Insulin) lisinopril 5 mg tablet 1 tab PO DAILY 10/14/20 05/29/22 ketorolac 0.5 % eye drops 1 drp ophthalmic-Left QID 10/15/20 05/29/22 aspirin 81 mg tablet,delayed 81 mg PO DAILY 09/11/21 05/29/22 release vit cap PO 09/11/21 05/29/22 C,E,zinc,Yu-qtmnk-2-lutein-zeaxanthin 250 mg-2.5 mg-0.5 mg capsule pen needle, diabetic 32 gauge x #50 ea 12/31/21 05/29/22 5/32 (BD Cathy 2nd Gen Pen Needle) atorvastatin 10 mg tablet 10 mg PO BEDTIME 02/06/22 05/29/22 Previous Rx's Medication Instructions Recorded furosemide 40 mg tablet 40 mg PO BID@0900,1800 30 days #60 10/20/20 tabs ascorbic acid (vitamin C) 1,000 mg 1 g PO DAILY 90 days #90 tabs 06/07/21 tablet methenamine hippurate 1 gram tablet 1 g PO DAILY 90 days #90 tabs 06/07/21 amlodipine 5 mg tablet 5 mg PO DAILY 90 days #90 tabs 01/22/22 metoprolol succinate 50 mg 100 mg PO DAILY 90 days #180 tabs 06/23/22 tablet,extended release 24 hr warfarin 1 mg tablet 1 mg PO DAILY 30 days #45 tabs 06/23/22 Allergies Allergy/AdvReac Type Severity Reaction Status Date / Time No Known Allergies Allergy Verified 06/26/22 13:07 [No Known Allergies*] Review of Systems Constitutional: Constitutional: Reports no additional constitutional complaints, Denies chills, Denies fever(s) and Denies night sweats Eyes: Eyes: Reports no additional eye complaints, Denies blurry vision, Denies change in vision, Denies diplopia, Denies eye discharge, Denies loss of vision and Denies eye pain ENT: Denies dizziness Cardiovascular: Cardiovascular: Reports no additional cardiovascular complaints, Denies chest pain, Denies lightheadedness, Denies Loss of Consciousness and Denies dyspnea Respiratory: Respiratory: Reports no additional respiratory complaints and Denies dyspnea Gastrointestinal: Gastrointestinal: Reports no additional gastrointestinal complaints, Denies abdominal pain, Denies melena, Denies hematochezia, Denies change in bowel habits and Denies change in stool character Genitourinary: Genitourinary: Reports hematuria, Denies urinary frequency, Denies dysuria, Denies urinary incontinence, Denies urinary hesitancy and Denies urinary urgency Musculoskeletal: Musculoskeletal: Reports no additional musculoskeletal complaints, Denies numbness and Denies tingling Integumentary/Breasts: Comments: left lower leg wound Neurologic: Denies dizziness, Denies loss of vision, Denies numbness and Denies tingling Psychiatric: Psychiatric: Reports no additional psychiatric complaints Endocrine: Endocrine: Reports no additional endocrine complaints Hematologic/Lymphatic: Hematologic/Lymphatic: Reports no additional hematologic/lymphatic complaints Allergic/Immunologic: Allergic/Immunologic: Reports no additional allergic/immunologic complaints [facility] Past Medical History Attestation statement: The following information was validated with the patient. Source: old records reviewed Medical History Atrial fibrillation CAD (coronary artery disease) CKD (chronic kidney disease) Congestive heart failure Diabetes Hypertension Hypothyroidism Hypotonic neurogenic bladder PAF (paroxysmal atrial fibrillation) Urinary incontinence Surgical History H/O heart artery stent H/O nasal polypectomy History of tonsillectomy and adenoidectomy History of tubal ligation Hx of cholecystectomy Family History Family History Father Hx of angina pectoris Myocardial infarction Mother Ovarian cancer Stomach cancer Maternal Grandfather Hardening of the arteries of the heart Social History Social History Household Members: Children Household Members Other:: daughter Housing: House Do you presently have visiting nurse or other home services: No Second Hand Smoke Exposure: No Advance Directives: No Advance Directives Information Provided: Yes service: No Current occupational status: retired Physical Exam ED Vital Signs: Vital Signs - 24 hr 06/27/22 12:50 06/27/22 14:09 06/27/22 15:45 Temperature 98.5 F 97.6 F Pulse Rate 91 93 Respiratory Rate 16 16 16 Blood Pressure 123/70 125/51 L Pulse Oximetry 97 97 Oxygen Delivery Method Room Air Room Air 06/27/22 17:27 Temperature 98.5 F Pulse Rate Respiratory Rate 16 Blood Pressure Pulse Oximetry Oxygen Delivery Method BMI result Body Mass Index 33.3 Const General: cooperative, no acute distress, alert and awake Nutritional Appearance: well nourished Orientation/consciousness: patient oriented x3 Limitations: no limitations HENMT Head: Yes normal to inspection and Yes atraumatic Ears: hearing grossly normal bilaterally and external ears normal General nose exam: Normal external nose present, no nasal discharge noted and no epistaxis Face and sinus: Yes normal facial exam, No abrasion and No laceration Mouth: Normal oral and palatal mucosa present, no drooling and no muffled voice Eyes General: appearance normal, both eyes and all related structures Periorbital: periorbital findings normal Eyelids: Yes eyelids normal Conjunctivae: conjunctivae normal Pupils: Equal, round and reactive pupils present EOM: EOMs intact bilaterally Neck Neck: Yes normal visual inspection, Yes full ROM and Yes no lymphadenopathy Chest Chest palpation & inspection: normal inspection of the chest Resp Effort & Inspection: normal respiratory effort and able to speak in complete sentences Auscultation: clear to auscultation bilaterally Cardio Rate: regular rate Rhythm: regular rhythm GI Inspection: Yes normal to inspection Other: suprapubic catheter present, blood actively coming out from port Skin Other: small area of ruptured vericose vein to the left lower leg, no acute bleeding, no surrounding erythema or warmth Neuro General: patient oriented x3 and moves all extremities Cranial nerves: Yes Equal, round and reactive pupils present Cognition (Neuro): normal cognition Motor exam (neuro): 5/5 motor strength present throughout Sensory Exam: Normal double simultaneous stimulation for sensation Coordination: kucctc-vm-[id number] test normal Extrem General: Yes normal to inspection, Yes full ROM and Yes capillary refill normal Psych Appearance: grossly normal Mental Status: mental status grossly normal Affect: normal affect Attitude: cooperative Thought process: Normal thought process present Thought content: Normal thought content present Insight: Good insight present (Psych) Medical Decision Making MDM Narrative Medical decision making narrative: Patient is an 81 year old female presenting to the emergency department today with blood in her urine from her suprapubic catheter and a left lower leg wound. Patient's physical exam showed a small ruptured vericose vein on the anterior aspect of her left lower leg with no active bleeding. Patient has ebony blood coming from her suprapubic catheter. Patient's blood work showed a slightly elevated WBC count of 11.2 which I believe is secondary to a stress reaction. Patient's BUN and CR were elevated at 38 and 1.86 respectively however, this is chronic for the patient. Patient's urine is pending at this time. Patient's pelvic US showed no acute process. Patient's abdominal CT is pending. I explained my physical exam findings as well as all test results to the patient. I answered all questions asked by the patient. Patient signed out to Vickie Hutton NP. Differential Diagnosis Differential Diagnosis: hematuria Medical Records Medical records reviewed: Yes I reviewed the patient's medical records. Lab Data Lab results reviewed: Yes I reviewed the patient's lab results. Result diagrams: 06/27/22 14:07 06/27/22 14:07 Labs: Lab Results 06/27/22 06/27/22 06/27/22 Range/Units 14:07 14:07 14:07 WBC 11.2 H (4.8-10.8) X10*3/uL RBC 4.61 (4.20-5.50) X10*6/uL Hgb 12.7 (12.0-16.0) g/dl Hct 39.3 (37.0-47.0) % MCV 85.2 (80.0-98.0) fL MCH 27.5 (27.0-33.0) pg MCHC 32.3 (31.0-35.0) g/dl RDW 15.8 (11.0-16.0) % Plt Count 279 (160-400) X10*3/uL MPV 9.0 L (9.4-12.3) fL Immature Gran % (Auto) 0.5 H (0.0-0.4) % Neut % (Auto) 72.1 (45-73) % Lymph % (Auto) 13.5 L (20-40) % Mclennan % (Auto) 12.3 H (2-11) % Eos % (Auto) 1.1 (0-4) % Baso % (Auto) 0.5 (0-2) % Lymph # (Auto) 1.5 (1.2-4.9) X10*3/uL Mclennan # (Auto) 1.4 H (0.1-1.2) X10*3/uL Eos # (Auto) 0.1 (0.0-0.4) X10*3/uL Baso # (Auto) 0.1 (0.0-0.2) X10*3/uL Abs Immat Gran (auto) 0.06 H (0.00-0.03) X10*3/uL Absolute Neuts (auto) 8.1 (2.0-8.3) x10*3/uL Absolute Nucleated RBC 0.000 (0.0-0.012) X10*3/uL Nucleated RBC % (auto) 0.0 (0.0-0.2) /100WBC PT 35.5 H (10.0-13.1) SEC INR 3.0 H (0.9-1.1) APTT 38.8 H (26.0-36.4) SEC Sodium 143 (135-145) mmol/L Potassium 3.8 (3.3-5.1) mmol/L Chloride 103 (96-108) mmol/L Carbon Dioxide 25 (22-29) mmol/L Anion Gap 19 (12-20) BUN 38 H (9-16) mg/dL Creatinine 1.86 H (0.5-1.4) mg/dL Estim Creat Clear Calc 26.4 Estimated GFR 26 Random Glucose 139 H (60-115) mg/dL Calcium 8.5 (8.4-10.2) mg/dL Magnesium 2.1 (1.6-2.6) mg/dL Total Bilirubin 0.7 (0.0-1.0) mg/dL AST 30 D (5-31) U/L ALT 18 (0-31) U/L Alkaline Phosphatase 137 H (39-117) U/L Total Protein 8.0 (6.5-8.0) g/dL Albumin 3.6 (3.5-5.0) g/dL Imaging Data Pelvis ultrasound: Attestation: I personally reviewed and interpreted this imaging study as follows: My impression: No acute process. Radiologist's impression: EXAMINATION:? US PELVIS CLINICAL INFORMATION:? 81-year-old female with history of heavy vaginal bleeding. COMPARISON: None TECHNIQUE: Sonographic imaging of the pelvis is performed using a curved 5 MHz transabdominal transducer. FINDINGS: The radiation therapy technologist reports that this was an extremely limited examination. The urinary bladder is underdistended and contains a suprapubic catheter. Technologist reports inability to perform a transvaginal examination due to patient immobility. On these transabdominal images, unable to adequately visualize the gynecologic structures. The uterus is not well seen. Neither ovary can be visualized. Considering the ultrasound test limitations, consider whether MR imaging would be warranted. No evidence of pelvic free fluid. US/US pelvic complete IMPRESSION: *? Limited, nondiagnostic pelvic imaging examination. *? Urinary bladder is underdistended and contains a suprapubic catheter. Dictated By: Tim Lima MD Signed By: Electronically signed by Tim Lima MD 06/27/22 3607 Discharge Plan Discharge Clinical Impression: Hematuria, Varicose vein of leg Patient Disposition: Still a Patient Prescriptions: No Action amlodipine 5 mg tablet 5 mg PO DAILY 90 Days Qty: 90 0RF warfarin 1 mg tablet 1 mg PO DAILY 30 Days Qty: 45 5RF Protocol: Dose Management Condition: Thursday (Week One) Dose/Route: 2 mg Instruction: 2 x 1 mg tablets Condition: Thursday Dose/Route: 1 mg Instruction: 1 x 1 mg tablet Condition: Thursday Dose/Route: 2 mg Instruction: 2 x 1 mg tablets Condition: Thursday Dose/Route: 1 mg Instruction: 1 x 1 mg tablet Condition: Dose/Route: 1 mg Instruction: 1 x 1 mg tablet Condition: Thursday Dose/Route: 1 mg Instruction: 1 x 1 mg tablet Condition: Thursday Dose/Route: 1 mg Instruction: 1 x 1 mg tablet Condition: Thursday (Week Two) Dose/Route: 2 mg Instruction: 2 x 1 mg tablets Condition: Thursday Dose/Route: 1 mg Instruction: 1 x 1 mg tablet Condition: Thursday Dose/Route: 2 mg Instruction: 2 x 1 mg tablets Condition: Thursday Dose/Route: 1 mg Instruction: 1 x 1 mg tablet Condition: Dose/Route: 2 mg Instruction: 2 x 1 mg tablets Condition: Thursday Dose/Route: 1 mg Instruction: 1 x 1 mg tablet Condition: Thursday Dose/Route: 1 mg Instruction: 1 x 1 mg tablet Protocol Text: Adjustment Start Date: 06/26/22 INR Value: 3.5 INR Date: 06/26/22 Recheck Date: 07/10/22 Additional Instructions: take 1mg today then cont reg dosing eat greens to lower inr no red fruit/orange veg for 2 days call with medication changes Rx Instructions: Take as directed by the coumadin clinic metoprolol succinate 50 mg tablet extended release 24 hr 100 mg PO DAILY 90 Days Qty: 180 3RF Rx Instructions: 2 tablets daily lisinopril 5 mg tablet 1 tab PO DAILY Hold Instructions: Resume on 11/22/20. hold until seen by pcp. Raymond Solostar U-100 Insulin 100 unit/mL (3 mL) insulin pen 20 unit subcut BEDTIME ketorolac 0.5 % Drops 1 drp ophthalmic-Left QID furosemide 40 mg Tablet 40 mg PO BID@0900,1800 30 Days Qty: 60 0RF Protocol: Hold for SBP< HOLD for SBP < : 90 levothyroxine 25 mcg tablet 25 mcg PO DAILY oxybutynin chloride 10 mg tablet extended release 24hr 10 mg PO DAILY aspirin 81 mg tablet,delayed release (DR/EC) 81 mg PO DAILY vit C,E,Zn,Is--jxt-zeax 250-2.5-0.5 mg capsule PO ascorbic acid (vitamin C) 1,000 mg tablet 1 g PO DAILY 90 Days Qty: 90 1RF methenamine hippurate 1 gram tablet 1 g PO DAILY 90 Days Qty: 90 1RF (DME) pen needle, diabetic [BD Cathy 2nd Gen Pen Needle] 32 gauge x 5/32 needle See Rx Instructions subcut DAILY Qty: 50 Rx Instructions: As directed atorvastatin 10 mg tablet 10 mg PO BEDTIME Print Language: Romansh
[2022-06-27] MEDS: Morphine Sulfate 4 MG/ML CARTRIDGE IVPUSH (14:09)
[2022-06-27] MEDS: ondansetron HCL 4 MG/2 ML VIAL IVPUSH (14:10)
[2022-06-27 14:19] LABS: MANUAL DIFF FLAG NO
[2022-06-27 14:23] LABS: Basophils Absolute Auto 0.1 X10*3/uL (0.0-0.2); Basophils Percent Auto 0.5 % (0-2); Eosinophils Absolute Auto 0.1 X10*3/uL (0.0-0.4); Eosinophils Percent Auto 1.1 % (0-4); Hematocrit 39.3 % (37.0-47.0); Hemoglobin 12.7 g/dl (12.0-16.0); Imm Gran Abs Auto 0.06 X10*3/uL (0.00-0.03); Imm Gran Pct Auto 0.5 % (0.0-0.4); Lymphocytes Absolute Auto 1.5 X10*3/uL (1.2-4.9); Lymphocytes Percent Auto 13.5 % (20-40); Mean Corpuscular HGB Conc 32.3 g/dl (31.0-35.0); Mean Corpuscular Hemoglobin 27.5 pg (27.0-33.0); Mean Corpuscular Volume 85.2 fL (80.0-98.0); Monocytes Absolute Auto 1.4 X10*3/uL (0.1-1.2); Monocytes Percent Auto 12.3 % (2-11); Neutrophils Absolute Auto 8.1 x10*3/uL (2.0-8.3); Neutrophils Percent Auto 72.1 % (45-73); Platelet Count 279 X10*3/uL (160-400); Red Blood Count 4.61 X10*6/uL (4.20-5.50); Red Cell Distribution Width 15.8 % (11.0-16.0); White Blood Count 11.2 X10*3/uL (4.8-10.8)
[2022-06-27 14:26] LABS: Prothrombin Time 35.5 SEC (10.0-13.1)
[2022-06-27 14:29] LABS: Partial Thromboplastin Time 38.8 SEC (26.0-36.4)
[2022-06-27 14:38] LABS: Alanine Aminotransferase 18 U/L (0-31); Albumin Level 3.6 g/dL (3.5-5.0); Alkaline Phosphatase 137 U/L (39-117); Anion Gap 19 (12-20); Aspartate Amino Transferase 30 U/L (5-31); Bilirubin Total 0.7 mg/dL (0.0-1.0); Blood Urea Nitrogen 38 mg/dL (9-16); Calcium 8.5 mg/dL (8.4-10.2); Carbon Dioxide 25 mmol/L (22-29); Chloride 103 mmol/L (96-108); Creatinine Clr Calc Pharmacy 26.4; Estimated Glomerular Filt Rate 26; Glucose Random 139 mg/dL (60-115); Magnesium 2.1 mg/dL (1.6-2.6); Potassium 3.8 mmol/L (3.3-5.1); Sodium 143 mmol/L (135-145)
--- NOTE | 2022-06-27 17:35 | PC.NURSE ---
300 cc Bladder irrigation completed with a sanguineous return, no clot. Pt awaiting a Cat scan of the pelvis.
--- NOTE | 2022-06-27 19:32 | PHA.MEDREC ---
Pharmacy Consult ? Medication Reconciliation Pharmacy has completed the medication reconciliation. Patient had list with her at bedside.
[2022-06-27] MEDS: cefTRIAXone sodium 1 GM in 0.9 % Sodium Chloride 50 ML IV (20:18)
[2022-06-27] MEDS: 0.9 % Sodium Chloride 1,000 ML 999 ML IVCONT (20:19)
--- NOTE | 2022-06-27 20:25 | PC.NURSE ---
Antibiotic hanged late. Difficulty in obtaining blood culture.
[2022-06-27 20:29] LABS: Lactic Acid 1.2 mmol/L (0.5-2.0)
[2022-06-27 20:30] LABS: Appearance Urine Cloudy; Color Urine RED; Glucose Urine UA 100 mg/dL (Negative); Leukocyte Esterase Urine Moderate (2+) (Negative); Nitrite Urine Positive (Negative); PH 8.5 (5.0-8.0); Specific Gravity - Urine 1.015 (1.005-1.025); Urine Blood Large (3+) (Negative); Urine Ketones Negative (Negative); Urine Protein 300 (3+) mg/dL (Neg-Trace)
[2022-06-27 20:32] LABS: RBC Urine >20 /HPF (0-2); Squamous Epithelial Cell Urine 0-2 /HPF (0-2); UACC Culture Trigger YES
[2022-06-27 20:33] LABS: Bacteria Urine None Seen (None Seen); Hyaline Casts Urine 0-2 /LPF (0-2)
[2022-06-27] MEDS: Phytonadione (Vit K1) 5 MG in 0.9 % Sodium Chloride 50 ML 50.5 MG IV (20:39)
[2022-06-27 21:13] LABS: IDNOW Serial# 16C4AD1C
[2022-06-27 21:14] LABS: COVID-19 Test Negative (Negative)
--- NOTE | 2022-06-27 21:33 | PC.NURSE ---
PATIENT WAS INC OF BLOODY URINE ,CARE GIVEN ,BEDDING CHANGE .
[2022-06-27 23:36] LABS: Glucose, Whole Blood 181 mg/dL (60-115)
[2022-06-27] MEDS: Atorvastatin Calcium 10 MG TABLET PO (23:49)
[2022-06-28] VITALS (7 sets, daily range): BP systolic 105–131; BP diastolic 53–80; PULSE 90–107; RESP 14–20; TEMP 35.9–36.7; O2SAT 86–98
[2022-06-28 04:10] LABS: Basophils Percent Auto 0.4 % (0-2); Eosinophils Absolute Auto 0.3 X10*3/uL (0.0-0.4); Eosinophils Percent Auto 2.5 % (0-4); Hematocrit 34.7 % (37.0-47.0); Imm Gran Abs Auto 0.08 X10*3/uL (0.00-0.03); Imm Gran Pct Auto 0.7 % (0.0-0.4); Lymphocytes Absolute Auto 2.1 X10*3/uL (1.2-4.9); Lymphocytes Percent Auto 19.7 % (20-40); MANUAL DIFF FLAG SCAN; Mean Corpuscular HGB Conc 31.7 g/dl (31.0-35.0); Mean Corpuscular Hemoglobin 27.6 pg (27.0-33.0); Mean Platelet Volume 9.2 fL (9.4-12.3); Monocytes Absolute Auto 1.5 X10*3/uL (0.1-1.2); Monocytes Percent Auto 14.1 % (2-11); Neutrophils Absolute Auto 6.7 x10*3/uL (2.0-8.3); Neutrophils Percent Auto 62.6 % (45-73); Platelet Count 241 X10*3/uL (160-400); Red Blood Count 3.99 X10*6/uL (4.20-5.50); Red Cell Distribution Width 15.9 % (11.0-16.0); SCAN SMEAR FLAG 1; White Blood Count 10.8 X10*3/uL (4.8-10.8)
[2022-06-28 04:15] LABS: INTERNATIONAL NORM RATIO 1.8 (0.9-1.1); Prothrombin Time 21.3 SEC (10.0-13.1)
[2022-06-28 04:26] LABS: Anion Gap 17 (12-20); Blood Urea Nitrogen 32 mg/dL (9-16); Carbon Dioxide 23 mmol/L (22-29); Chloride 106 mmol/L (96-108); Creatinine Clr Calc Pharmacy 30.1; Estimated Glomerular Filt Rate 30; Glucose Random 140 mg/dL (60-115); Potassium 4.5 mmol/L (3.3-5.1); Sodium 141 mmol/L (135-145)
[2022-06-28 04:31] LABS: SLIDE REVIEW VERIFIED
[2022-06-28] MEDS: Levothyroxine Sodium 25 MCG TABLET PO (06:38)
--- NOTE | 2022-06-28 06:40 | PC.NURSE ---
[facility] OUTPUT 1000CC DARK RED BLOOD.
--- NOTE | 2022-06-28 06:56 | P.HPHOSP_ITS ---
History of Present Illness Date of Service: 06/27/22 Chief Complaint: bleeding Is an 81-year-old female with past medical history of CAD, CKD, AFib on Coumadin, diabetes, hypertension, hypothyroidism, diabetic neuropathy, neurogenic bladder with suprapubic catheter in place, presents to the hospital with of bleeding. Patient reports and noticed bleeding in sheets the before but she was unsure where the bleeding was coming from. she states that i did not look to find out the source of bleeding but she kept finding bloody spots on the bed sheets throughout the night and on waking. she had bleeding therefore decided to come to the ED> she then noticed blood in her suprapubic cath. she denies any SOB, chest pain, no abd pain, N/V, no diarrhea or constipation. Reports feeling generalized fatigue. no fever or chills. on arrival to the ED patient's vitals unremarkable Labs are significant for WBC count of 11.2, creatinine of 1.86 which is around her baseline UA positive for leukocyte Estrace and WBC as well as nitrates abdominal pelvic CT shows diffusely thick-walled urinary bladder with supra pubic tube in place and high-density material on the bladder lumen compatible hemorrhage and a bladder mass, there is also moderate right and mild left hydroureteronephrosis with mild asymmetric right perinephric stranding, there is small amount of layering high-density material within the right collecting system consistent with hemorrhage urology was consulted, recommended stopping Coumadin and he will take her for further investigation on Thursday morning Review of Systems Review of Systems: Yes all other systems are reviewed and are negative [facility] Medical History Atrial fibrillation CAD (coronary artery disease) CKD (chronic kidney disease) Congestive heart failure Diabetes Hypertension Hypothyroidism Hypotonic neurogenic bladder PAF (paroxysmal atrial fibrillation) Urinary incontinence Family History Father Hx of angina pectoris Myocardial infarction Mother Ovarian cancer Stomach cancer Maternal Grandfather Hardening of the arteries of the heart Surgical History H/O heart artery stent H/O nasal polypectomy History of tonsillectomy and adenoidectomy History of tubal ligation Hx of cholecystectomy Social History Household Members: Children Household Members Other:: daughter Housing: House Do you presently have visiting nurse or other home services: No Alcohol intake: never Patient Tobacco Use Status: Never used Tobacco Second Hand Smoke Exposure: No Advance Directives: No Advance Directives Information Provided: Yes service: No Current occupational status: retired Meds Allergies Allergy/AdvReac Type Severity Reaction Status Date / Time No Known Allergies Allergy Verified 06/26/22 13:07 [No Known Allergies*] Active Medications: Current Medications Acetaminophen (Acetaminophen 325 Mg Tablet) 650 mg PO Q6H PRN PRN Reason: Pain, Mild (Pain Scale 1-3) Amlodipine Besylate (Amlodipine Besylate 5 Mg Tablet) 5 mg PO DAILY [facility]; Protocol Aspirin (Aspirin Enteric Coated 81 Mg Tablet.Dr) 81 mg PO DAILY [facility] Atorvastatin Calcium (Atorvastatin Calcium 10 Mg Tablet) 10 mg PO BEDTIME [facility] Last Admin: 06/27/22 23:49 Dose: 10 mg Dextrose (Dextrose 50 % 25 Gm/50 Ml Syringe) 25 gm IVPUSH Q15M PRN; Protocol PRN Reason: per Hypoglycemia Standing Ord. Docusate Sodium (Docusate Sodium 100 Mg Capsule) 100 mg PO DAILY PRN PRN Reason: Constipation Glucose (Glucose Gel 15 Gm Gel..Gram.) 15 gm PO Q15M PRN; Protocol PRN Reason: per Hypoglycemia Standing Ord. Ceftriaxone Sodium 1 gm/ (Sodium Chloride) 50 mls @ 100 mls/hr IV Q24H [facility] Insulin Glargine (Insulin Glargine,Hum.Rec.Anlog 100 Unit/Ml 10 Ml Vial) 40 unit SUBCUT BEDTIME [facility] Insulin Human Lispro (Insulin Lispro 100 Unit/Ml 3 Ml Vial) 0 unit SUBCUT QIDACHS [facility]; Protocol Levothyroxine Sodium (Levothyroxine Sodium 25 Mcg Tablet) 25 mcg PO 0630 [facility] Last Admin: 06/28/22 06:38 Dose: 25 mcg Metoprolol Succinate (Metoprolol Succinate Er 100 Mg Tab.Er.24h) 100 mg PO DAILY [facility]; Protocol Morphine Sulfate (Morphine Sulfate 4 Mg/Ml Cartridge) 4 mg IVPUSH Q4H PRN; Protocol PRN Reason: Pain, Severe (Pain Scale 7-10) Ondansetron HCl (Ondansetron Hcl 4 Mg/2 Ml Vial) 4 mg IVPUSH Q8H PRN PRN Reason: Nausea and Vomiting Oxybutynin Chloride (Oxybutynin Chloride Er 5 Mg Tab.Er.24) 10 mg PO DAILY [facility] Sodium Chloride (0.9 % Sodium Chloride Flush 3 Ml Syringe) 3 ml IVFLUSH QSHIFT SUN Last Admin: 06/28/22 00:34 Dose: Not Given Home Medications Medication Instructions Recorded Confirmed Last Taken Type levothyroxine 25 mcg tablet 25 mcg PO DAILY 09/05/20 06/27/22 Unknown History oxybutynin chloride 10 mg 10 mg PO DAILY 09/05/20 06/27/22 Unknown History tablet,extended release 24 hr insulin glargine 100 unit/mL (3 40 unit subcut BEDTIME 10/14/20 06/27/22 Unknown History mL) subcutaneous pen (Lantus Solostar U-100 Insulin) aspirin 81 mg tablet,delayed 81 mg PO DAILY 09/11/21 06/27/22 Unknown History release vit 1 cap PO DAILY 09/11/21 06/27/22 Unknown History C,E,zinc,Bs-ffsqj-5-lutein-zeaxanthin 250 mg-2.5 mg-0.5 mg capsule pen needle, diabetic 32 gauge x #50 ea 12/31/21 06/27/22 Unknown History (BD Cathy 2nd Gen Pen Needle) atorvastatin 10 mg tablet 10 mg PO BEDTIME 02/06/22 06/27/22 Unknown History ciprofloxacin HCl 500 mg tablet 1 tab PO DAILY PRN Catheter 06/27/22 06/27/22 Unknown History Insertion Physical Exam Vital Signs and Narrative: Vital Signs: Last Vital Signs Temp 98.4 F 06/27/22 23:29 Pulse 107 H 06/28/22 05:12 Resp 17 06/28/22 05:12 BP 116/71 06/28/22 05:12 Pulse Ox 98 06/28/22 06:40 O2 Del Method 06/28/22 06:40 O2 Flow Rate 2 06/28/22 06:40 BMI result Body Mass Index 33.3 Const: General: cooperative and no acute distress Orientation/consciousness: patient oriented x3 Eyes: General: appearance normal, both eyes and all related structures Resp: Effort & Inspection: normal respiratory effort Auscultation: clear to auscultation bilaterally Cardio: Rate: regular rate Rhythm: regular rhythm GI: Palpation (GI): Soft to palpation Auscultation: normal bowel sounds : Other: has a suprapubic catheter, with significant blood in the catheter sac Skin: General skin exam: no rashes or lesions noted Neuro: General: patient oriented x3 Cognition (Neuro): normal cognition Extrem: General: Yes normal to inspection and Yes no pedal edema Results Labs CBC and Chem 7: 06/28/22 04:02 06/28/22 04:02 Labs: Laboratory Results - last 24 hr 06/27/22 06/27/22 06/27/22 14:07 14:07 14:07 MCV 85.2 MCH 27.5 MCHC 32.3 RDW 15.8 Plt Count 279 MPV 9.0 L Immature Gran % (Auto) 0.5 H Neut % (Auto) 72.1 Lymph % (Auto) 13.5 L [place] % (Auto) 12.3 H Eos % (Auto) 1.1 Baso % (Auto) 0.5 Lymph # (Auto) 1.5 [place] # (Auto) 1.4 H Eos # (Auto) 0.1 Baso # (Auto) 0.1 Abs Immat Gran (auto) 0.06 H Absolute Neuts (auto) 8.1 Absolute Nucleated RBC 0.000 Nucleated RBC % (auto) 0.0 Smear Tech's Comments PT 35.5 H INR 3.0 H APTT 38.8 H Anion Gap 19 Estim Creat Clear Calc 26.4 Estimated GFR 26 POC Glucose Random Glucose 139 H Lactic Acid Calcium 8.5 Magnesium 2.1 Total Bilirubin 0.7 AST 30 D ALT 18 Alkaline Phosphatase 137 H Total Protein 8.0 Albumin 3.6 Urine Color Urine Appearance Urine pH Ur Specific [place] Urine Protein Urine Glucose (UA) Urine Ketones Urine Blood Urine Nitrite Ur Leukocyte Esterase Urine RBC Urine WBC Ur Squamous Epith Cells Urine Bacteria Hyaline Casts COVID-19 (JONEL) COVID-19 Clin Com 06/27/22 06/27/22 06/27/22 20:05 20:06 20:42 MCV MCH MCHC RDW Plt Count MPV Immature Gran % (Auto) Neut % (Auto) Lymph % (Auto) [place] % (Auto) Eos % (Auto) Baso % (Auto) Lymph # (Auto) [place] # (Auto) Eos # (Auto) Baso # (Auto) Abs Immat Gran (auto) Absolute Neuts (auto) Absolute Nucleated RBC Nucleated RBC % (auto) Smear Tech's Comments PT INR APTT Anion Gap Estim Creat Clear Calc Estimated GFR POC Glucose Random Glucose Lactic Acid 1.2 Calcium Magnesium Total Bilirubin AST ALT Alkaline Phosphatase Total Protein Albumin Urine Color RED Urine Appearance Cloudy Urine pH 8.5 H Ur Specific [place] 1.015 Urine Protein 300 (3+) H Urine Glucose (UA) 100 H Urine Ketones Negative Urine Blood Large (3+) H Urine Nitrite Positive H Ur Leukocyte Esterase Moderate (2+) H Urine RBC >20 H Urine WBC 6-10 H Ur Squamous Epith Cells 0-2 Urine Bacteria None Seen Hyaline Casts 0-2 COVID-19 (JONEL) Negative COVID-19 Clin Com See Note 06/27/22 06/28/22 06/28/22 23:31 04:02 04:02 MCV 87.0 MCH 27.6 MCHC 31.7 RDW 15.9 Plt Count 241 MPV 9.2 L Immature Gran % (Auto) 0.7 H Neut % (Auto) 62.6 Lymph % (Auto) 19.7 L [place] % (Auto) 14.1 H Eos % (Auto) 2.5 Baso % (Auto) 0.4 Lymph # (Auto) 2.1 [place] # (Auto) 1.5 H Eos # (Auto) 0.3 Baso # (Auto) 0.0 Abs Immat Gran (auto) 0.08 H Absolute Neuts (auto) 6.7 Absolute Nucleated RBC 0.000 Nucleated RBC % (auto) 0.0 Smear Tech's Comments VERIFIED PT 21.3 H INR 1.8 H APTT Anion Gap Estim Creat Clear Calc Estimated GFR POC Glucose 181 H Random Glucose Lactic Acid Calcium Magnesium Total Bilirubin AST ALT Alkaline Phosphatase Total Protein Albumin Urine Color Urine Appearance Urine pH Ur Specific [place] Urine Protein Urine Glucose (UA) Urine Ketones Urine Blood Urine Nitrite Ur Leukocyte Esterase Urine RBC Urine WBC Ur Squamous Epith Cells Urine Bacteria Hyaline Casts COVID-19 (JONEL) COVID-19 Clin Com 06/28/22 04:02 MCV MCH MCHC RDW Plt Count MPV Immature Gran % (Auto) Neut % (Auto) Lymph % (Auto) [place] % (Auto) Eos % (Auto) Baso % (Auto) Lymph # (Auto) [place] # (Auto) Eos # (Auto) Baso # (Auto) Abs Immat Gran (auto) Absolute Neuts (auto) Absolute Nucleated RBC Nucleated RBC % (auto) Smear Tech's Comments PT INR APTT Anion Gap 17 Estim Creat Clear Calc 30.1 Estimated GFR 30 POC Glucose Random Glucose 140 H Lactic Acid Calcium 8.0 L Magnesium Total Bilirubin AST ALT Alkaline Phosphatase Total Protein Albumin Urine Color Urine Appearance Urine pH Ur Specific [place] Urine Protein Urine Glucose (UA) Urine Ketones Urine Blood Urine Nitrite Ur Leukocyte Esterase Urine RBC Urine WBC Ur Squamous Epith Cells Urine Bacteria Hyaline Casts COVID-19 (JONEL) COVID-19 Clin Com Imaging Radiologist's Impressions: Impressions Pelvis Ultrasound 06/27/22 15:05 IMPRESSION: * Limited, nondiagnostic pelvic imaging examination. * Urinary bladder is underdistended and contains a suprapubic catheter. Abdomen/Pelvis CT 06/27/22 17:44 IMPRESSION: 1. Diffusely thick-walled urinary bladder with suprapubic tube in place and high density material in the bladder lumen compatible with hemorrhage and/or bladder mass. 2. Moderate right and mild left hydroureteronephrosis with mild asymmetric right perinephric stranding. 3. Small amount of layering high-density material within the right renal collecting system, consistent with hemorrhage. 4. Mildly enlarged right iliac chain lymph node, nonspecific may be reactive or neoplastic. 5. 1.6 cm indeterminate left adrenal nodule, present on prior chest CT 10/13/2020 suggesting benign etiology such as adenoma. Assessment and Plan (1) Hematuria: Status: Acute (2) Bladder mass: Status: Acute (3) UTI (urinary tract infection): Status: Acute (4) Hydroureteronephrosis: Status: Acute Plan 81-year-old with past medical history of AFib on Coumadin presents to the hospital with hemorrhage # hematuria - likely secondary to hemorrhage from bladder versus higher up in the genitourinary system - IV fluids, will give vitamin K to reverse INR given the significant hemorrhage - urology following - plan for intervention on Thursday morning - daily CBC, on last hemoglobin started dropping than more frequent measuring # possible bladder mass - per CT findings - urology consulted # UTI with possible pyelonephritis - has asymmetric right perinephric stranding - afebrile, mild leukocytosis - will treat with IV antibiotics - follow cultures # hydroureteronephrosis - likely secondary to above - IV fluids - follow cultures # AFib - continue rate control - hold Coumadin # diabetes - low-dose sliding scale insulin - diabetic diet DVT prophylaxis: SCDs given the significant hematuria, and need for further investigation patient will require minimum 2 night hospital stay for further management evaluation Quality Stroke Does the patient have a stroke diagnosis?: No VTE Prior VTE?: No VTE Risk Level:: Medical - moderate - high VTE Device Contraindication: N/A - Device Ordered VTE Drug Contraindication: Treatment Not Indicated
[2022-06-28 08:00] LABS: B Type Natriuretic Peptide 615 pg/mL (<100)
[2022-06-28] MEDS: Metoprolol Succinate ER 100 MG TAB.ER.24H PO (08:42)
[2022-06-28] MEDS: 0.9 % Sodium Chloride Flush 3 ML SYRINGE IVFLUSH (08:42)
[2022-06-28] MEDS: Aspirin Enteric Coated 81 MG TABLET.DR PO (08:42)
[2022-06-28] MEDS: Insulin Lispro 100 UNIT/ML 3 ML VIAL SUBCUT ×3 (08:43→21:53)
[2022-06-28] MEDS: amLODIPine Besylate 5 MG TABLET PO (08:43)
--- NOTE | 2022-06-28 08:43 | PC.NURSE ---
patient a&ox, vss, pt states she has abd pain that comes and goes, supra pubic cath patient/draining, hematuria noted in cath bag, pt medicated per order, call zhou within reach, will continue to monitor.
[2022-06-28 08:51] LABS: Glucose, Whole Blood 180 mg/dL (60-115)
--- NOTE | 2022-06-28 09:50 | PC.NURSE ---
full bed changed performed, pt in room to eval
--- NOTE | 2022-06-28 10:51 | PC.NURSE ---
report called to floor
--- NOTE | 2022-06-28 11:00 | P.PNIM_ITS ---
Subjective Subjective Date of Service: 06/28/22 Interval History: the patient was seen and evaluated this morning Laying in bed, feels comfortable still have significant hematuria Denies any fever, chills or Pain No reported other overnight events. Systemic review: No fever, chills or weakness No chest pain, palpitation No shortness of breath or coughing No abdominal pain, nausea or vomiting hematuria left lower extremity wounds Physical Exam Vital Signs: Vital Signs: Last Vital Signs Temp 98.0 F 06/28/22 08:40 Pulse 104 H 06/28/22 08:40 Resp 20 06/28/22 08:40 BP 115/57 L 06/28/22 08:40 Pulse Ox 98 06/28/22 08:40 O2 Del Method 06/28/22 08:40 O2 Flow Rate 4 06/28/22 08:40 BMI result Body Mass Index 33.3 Const: Other: Constitutional : Alert, oriented, not in distress Neck : Normal inspection, Supple Cardiovascular : RRR, no JVP, no lower extremity edema Respiratory : fair bilateral air entry, basal fine crackles, wheezes or rhonchi Gastrointestinal: soft, lax, Normal bowel sounds, Non tender Skin : Warm, Dry, left lower extremity wound with small amount of serous drainage Urology: suprapubic catheter in place, dark hematuria urine Neurological : Alert & oriented x3, No focal deficit , CN 2-12 within normal Objective Data Active Medications Acetaminophen (Acetaminophen 325 Mg Tablet) 650 mg PO Q6H PRN PRN Reason: Pain, Mild (Pain Scale 1-3) Amlodipine Besylate (Amlodipine Besylate 5 Mg Tablet) 5 mg PO DAILY [facility]; Protocol Last Admin: 06/28/22 08:43 Dose: 5 mg Documented By: MANSI Aspirin (Aspirin Enteric Coated 81 Mg Tablet.) 81 mg PO DAILY [facility] Last Admin: 06/28/22 08:42 Dose: 81 mg Documented By: MANSI Atorvastatin Calcium (Atorvastatin Calcium 10 Mg Tablet) 10 mg PO BEDTIME [facility] Last Admin: 06/27/22 23:49 Dose: 10 mg Documented By: DUANE Dextrose (Dextrose 50 % 25 Gm/50 Ml Syringe) 25 gm IVPUSH Q15M PRN; Protocol PRN Reason: per Hypoglycemia Standing Ord. Docusate Sodium (Docusate Sodium 100 Mg Capsule) 100 mg PO DAILY PRN PRN Reason: Constipation Glucose (Glucose Gel 15 Gm Gel..Gram.) 15 gm PO Q15M PRN; Protocol PRN Reason: per Hypoglycemia Standing Ord. Ceftriaxone Sodium 1 gm/ (Sodium Chloride) 50 mls @ 100 mls/hr IV Q24H [facility] Insulin Glargine (Insulin Glargine,Hum.Rec.Anlog 100 Unit/Ml 10 Ml Vial) 40 unit SUBCUT BEDTIME [facility] Insulin Human Lispro (Insulin Lispro 100 Unit/Ml 3 Ml Vial) 0 unit SUBCUT QIDACHS [facility]; Protocol Last Admin: 06/28/22 08:43 Dose: 2 unit Documented By: MANSI Levothyroxine Sodium (Levothyroxine Sodium 25 Mcg Tablet) 25 mcg PO 0630 [facility] Last Admin: 06/28/22 06:38 Dose: 25 mcg Documented By: MERARY Metoprolol Succinate (Metoprolol Succinate Er 100 Mg Tab.Er.24h) 100 mg PO DAILY [facility]; Protocol Last Admin: 06/28/22 08:42 Dose: 100 mg Documented By: MANSI Morphine Sulfate (Morphine Sulfate 4 Mg/Ml Cartridge) 4 mg IVPUSH Q4H PRN; Prot ocol PRN Reason: Pain, Severe (Pain Scale 7-10) Ondansetron HCl (Ondansetron Hcl 4 Mg/2 Ml Vial) 4 mg IVPUSH Q8H PRN PRN Reason: Nausea and Vomiting Oxybutynin Chloride (Oxybutynin Chloride Er 5 Mg Tab.Er.24) 10 mg PO DAILY [facility] Last Admin: 06/28/22 08:42 Dose: 10 mg Documented By: MANSI Sodium Chloride (0.9 % Sodium Chloride Flush 3 Ml Syringe) 3 ml IVFLUSH QSHIFT [facility] Last Admin: 06/28/22 08:42 Dose: 3 ml Documented By: MANSI Labs CBC & Chem 7: 06/28/22 04:02 06/28/22 04:02 Labs: Laboratory Results - last 24 hr 06/27/22 06/27/22 06/27/22 14:07 14:07 14:07 MCV 85.2 MCH 27.5 MCHC 32.3 RDW 15.8 Plt Count 279 MPV 9.0 L Immature Gran % (Auto) 0.5 H Neut % (Auto) 72.1 Lymph % (Auto) 13.5 L [place] % (Auto) 12.3 H Eos % (Auto) 1.1 Baso % (Auto) 0.5 Lymph # (Auto) 1.5 [place] # (Auto) 1.4 H Eos # (Auto) 0.1 Baso # (Auto) 0.1 Abs Immat Gran (auto) 0.06 H Absolute Neuts (auto) 8.1 Absolute Nucleated RBC 0.000 Nucleated RBC % (auto) 0.0 Smear Tech's Comments PT 35.5 H INR 3.0 H APTT 38.8 H Anion Gap 19 Estim Creat Clear Calc 26.4 Estimated GFR 26 POC Glucose Random Glucose 139 H Lactic Acid Calcium 8.5 Magnesium 2.1 Total Bilirubin 0.7 AST 30 D ALT 18 Alkaline Phosphatase 137 H B-Natriuretic Peptide Total Protein 8.0 Albumin 3.6 Urine Color Urine Appearance Urine pH Ur Specific [place] Urine Protein Urine Glucose (UA) Urine Ketones Urine Blood Urine Nitrite Ur Leukocyte Esterase Urine RBC Urine WBC Ur Squamous Epith Cells Urine Bacteria Hyaline Casts COVID-19 (JONEL) COVID-19 [employer] Com 06/27/22 06/27/22 06/27/22 20:05 20:06 20:42 MCV MCH MCHC RDW Plt Count MPV Immature Gran % (Auto) Neut % (Auto) Lymph % (Auto) [place] % (Auto) Eos % (Auto) Baso % (Auto) Lymph # (Auto) [place] # (Auto) Eos # (Auto) Baso # (Auto) Abs Immat Gran (auto) Absolute Neuts (auto) Absolute Nucleated RBC Nucleated RBC % (auto) Smear Tech's Comments PT INR APTT Anion Gap Estim Creat Clear Calc Estimated GFR POC Glucose Random Glucose Lactic Acid 1.2 Calcium Magnesium Total Bilirubin AST ALT Alkaline Phosphatase B-Natriuretic Peptide Total Protein Albumin Urine Color RED Urine Appearance Cloudy Urine pH 8.5 H Ur Specific [place] 1.015 Urine Protein 300 (3+) H Urine Glucose (UA) 100 H Urine Ketones Negative Urine Blood Large (3+) H Urine Nitrite Positive H Ur Leukocyte Esterase Moderate (2+) H Urine RBC >20 H Urine WBC 6-10 H Ur Squamous Epith Cells 0-2 Urine Bacteria None Seen Hyaline Casts 0-2 COVID-19 (JONEL) Negative COVID-19 Clin Com See Note 06/27/22 06/28/22 06/28/22 23:31 04:02 04:02 MCV 87.0 MCH 27.6 MCHC 31.7 RDW 15.9 Plt Count 241 MPV 9.2 L Immature Gran % (Auto) 0.7 H Neut % (Auto) 62.6 Lymph % (Auto) 19.7 L [place] % (Auto) 14.1 H Eos % (Auto) 2.5 Baso % (Auto) 0.4 Lymph # (Auto) 2.1 [place] # (Auto) 1.5 H Eos # (Auto) 0.3 Baso # (Auto) 0.0 Abs Immat Gran (auto) 0.08 H Absolute Neuts (auto) 6.7 Absolute Nucleated RBC 0.000 Nucleated RBC % (auto) 0.0 Smear Tech's Comments VERIFIED PT 21.3 H INR 1.8 H APTT Anion Gap Estim Creat Clear Calc Estimated GFR POC Glucose 181 H Random Glucose Lactic Acid Calcium Magnesium Total Bilirubin AST ALT Alkaline Phosphatase B-Natriuretic Peptide Total Protein Albumin Urine Color Urine Appearance Urine pH Ur Specific [place] Urine Protein Urine Glucose (UA) Urine Ketones Urine Blood Urine Nitrite Ur Leukocyte Esterase Urine RBC Urine WBC Ur Squamous Epith Cells Urine Bacteria Hyaline Casts COVID-19 (JONEL) COVID-19 Clin Com 06/28/22 06/28/22 06/28/22 04:02 07:22 08:33 MCV MCH MCHC RDW Plt Count MPV Immature Gran % (Auto) Neut % (Auto) Lymph % (Auto) [place] % (Auto) Eos % (Auto) Baso % (Auto) Lymph # (Auto) [place] # (Auto) Eos # (Auto) Baso # (Auto) Abs Immat Gran (auto) Absolute Neuts (auto) Absolute Nucleated RBC Nucleated RBC % (auto) Smear Tech's Comments PT INR APTT Anion Gap 17 Estim Creat Clear Calc 30.1 Estimated GFR 30 POC Glucose 180 H Random Glucose 140 H Lactic Acid Calcium 8.0 L Magnesium Total Bilirubin AST ALT Alkaline Phosphatase B-Natriuretic Peptide 615 H Total Protein Albumin Urine Color Urine Appearance Urine pH Ur Specific [place] Urine Protein Urine Glucose (UA) Urine Ketones Urine Blood Urine Nitrite Ur Leukocyte Esterase Urine RBC Urine WBC Ur Squamous Epith Cells Urine Bacteria Hyaline Casts COVID-19 (JONEL) COVID-19 Clin Com Assessment and Plan (1) Hematuria: Status: Acute (2) UTI (urinary tract infection): Status: Acute (3) Bladder mass: Status: Acute Plan 81-year-old with past medical history of AFib on Coumadin presents to the hospital with hemorrhage # hematuria likely secondary to hemorrhage from bladder mass continue IV fluids received vitamin K to reverse INR hold aspirin urology consult pending plan for intervention on Thursday morning follow H&H # possible bladder mass per CT findings urology consulted for possible evaluation # UTI with possible pyelonephritis asymmetric right perinephric stranding afebrile, mild leukocytosis continue IV antibiotics pending cultures # hydroureteronephrosis likely secondary to mass, to be evaluated by Urology, no [place] I # AFib continue rate control hold Coumadin # diabetes low-dose sliding scale insulin diabetic diet DVT prophylaxis: SCDs patient will need overnight hospital stay to continue management for hematuria, UTI pending final culture to prevent possible decompensation. Quality Stroke Does the patient have a stroke diagnosis?: No VTE Prior VTE?: No VTE Risk Level:: Medical - moderate - high VTE Device Contraindication: N/A - Device Ordered VTE Drug Contraindication: Treatment Not Indicated
[2022-06-28 12:06] LABS: Glucose, Whole Blood 125 mg/dL (60-115)
[2022-06-28] MEDS: 0.9 % Sodium Chloride 1,000 ML 80 ML IVCONT (12:28)
[2022-06-28 16:19] LABS: Glucose, Whole Blood 163 mg/dL (60-115)
[2022-06-28] MEDS: Acetaminophen 325 MG TABLET 650 MG PO (18:48)
[2022-06-28 20:23] LABS: Glucose, Whole Blood 189 mg/dL (60-115)
[2022-06-28] MEDS: Morphine Sulfate 4 MG/ML CARTRIDGE IVPUSH (21:52)
[2022-06-28] MEDS: Insulin Glargine,Hum.rec.anlog 100 UNIT/ML 10 ML VIAL 40 UNIT SUBCUT (21:53)
[2022-06-28] MEDS: Atorvastatin Calcium 10 MG TABLET PO (21:53)
[2022-06-28] MEDS: cefTRIAXone sodium 1 GM in 0.9 % Sodium Chloride 50 ML IV (21:54)
[2022-06-29] MEDS: 0.9 % Sodium Chloride 1,000 ML 80 ML IVCONT ×2 (03:46→21:32)
[2022-06-29 03:48] VITALS: BP 124/60; PULSE 79; RESP 18; TEMP 36.4; O2SAT 96
[2022-06-29] MEDS: Levothyroxine Sodium 25 MCG TABLET PO (06:02)
[2022-06-29 06:15] LABS: Hematocrit 32.2 % (37.0-47.0); Hemoglobin 10.1 g/dl (12.0-16.0); Mean Corpuscular HGB Conc 31.4 g/dl (31.0-35.0); Mean Corpuscular Hemoglobin 27.4 pg (27.0-33.0); Mean Corpuscular Volume 87.5 fL (80.0-98.0); Platelet Count 230 X10*3/uL (160-400); Red Blood Count 3.68 X10*6/uL (4.20-5.50); Red Cell Distribution Width 15.4 % (11.0-16.0); White Blood Count 8.4 X10*3/uL (4.8-10.8)
[2022-06-29 06:21] LABS: INTERNATIONAL NORM RATIO 1.2 (0.9-1.1); Prothrombin Time 13.9 SEC (10.0-13.1)
[2022-06-29 06:55] LABS: Anion Gap 12 (12-20); Blood Urea Nitrogen 28 mg/dL (9-16); Calcium 7.9 mg/dL (8.4-10.2); Carbon Dioxide 27 mmol/L (22-29); Chloride 105 mmol/L (96-108); Creatinine Clr Calc Pharmacy 33.6; Estimated Glomerular Filt Rate 34; Glucose Random 109 mg/dL (60-115); Potassium 4.1 mmol/L (3.3-5.1); Sodium 140 mmol/L (135-145)
[2022-06-29 08:00] VITALS: BP 135/72; PULSE 99; RESP 18; TEMP 36.4; O2SAT 93
[2022-06-29 08:24] LABS: Glucose, Whole Blood 99 mg/dL (60-115)
[2022-06-29] MEDS: Metoprolol Succinate ER 100 MG TAB.ER.24H PO (08:48)
[2022-06-29] MEDS: amLODIPine Besylate 5 MG TABLET PO (08:50)
[2022-06-29] MEDS: 0.9 % Sodium Chloride Flush 3 ML SYRINGE IVFLUSH ×2 (08:50→16:49)
[2022-06-29] MEDS: Morphine Sulfate 4 MG/ML CARTRIDGE IVPUSH ×2 (09:14→21:38)
[2022-06-29] MEDS: Doxycycline Hyclate 100 MG in 0.9 % Sodium Chloride 250 ML 166.67 MG IV ×2 (10:09→22:36)
[2022-06-29 10:25] VITALS: BP 126/74; PULSE 109; RESP 18; TEMP 36.4; O2SAT 94
--- NOTE | 2022-06-29 10:26 | HO.PM.IMPN ---
Subjective Subjective Date of Service: 06/29/22 Interval History: the patient was seen and evaluated this morning Laying in bed, feels comfortable still having significant hematuria Denies any fever, chills or Pain No reported other overnight events. Systemic review: No fever, chills or weakness No chest pain, palpitation No shortness of breath or coughing No abdominal pain, nausea or vomiting hematuria left lower extremity wounds Physical Exam Vital Signs: Vital Signs: Last Vital Signs Temp 97.6 F 06/29/22 08:00 Pulse 99 06/29/22 08:00 Resp 18 06/29/22 08:00 BP 135/72 06/29/22 08:00 Pulse Ox 93 06/29/22 08:00 O2 Del Method 06/29/22 08:00 O2 Flow Rate 3.0 06/28/22 18:54 BMI result Body Mass Index 33.3 Const: Other: Constitutional : Alert, oriented, not in distress Neck : Normal inspection, Supple Cardiovascular : RRR, no JVP, no lower extremity edema Respiratory : fair bilateral air entry, basal fine crackles, wheezes or rhonchi Gastrointestinal: soft, lax, Normal bowel sounds, Non tender Skin : Warm, Dry, left lower extremity wound with small amount of serous drainage and surrounding erythema with tenderness Urology: suprapubic catheter in place, dark hematuria urine Neurological : Alert & oriented x3, No focal deficit , CN 2-12 within normal Objective Data Active Medications Acetaminophen (Acetaminophen 325 Mg Tablet) 650 mg PO Q6H PRN PRN Reason: Pain, Mild (Pain Scale 1-3) Last Admin: 06/28/22 18:48 Dose: 650 mg Documented By: ERNESTINE Amlodipine Besylate (Amlodipine Besylate 5 Mg Tablet) 5 mg PO DAILY [facility]; Protocol Last Admin: 06/29/22 08:50 Dose: 5 mg Documented By: MICHELLE Aspirin (Aspirin Enteric Coated 81 Mg Tablet.Dr) 81 mg PO DAILY [facility] Last Admin: 06/28/22 08:42 Dose: 81 mg Documented By: MANSI Atorvastatin Calcium (Atorvastatin Calcium 10 Mg Tablet) 10 mg PO BEDTIME [facility] Last Admin: 06/28/22 21:53 Dose: 10 mg Documented By: TANMAY Dextrose (Dextrose 50 % 25 Gm/50 Ml Syringe) 25 gm IVPUSH Q15M PRN; Protocol PRN Reason: per Hypoglycemia Standing Ord. Docusate Sodium (Docusate Sodium 100 Mg Capsule) 100 mg PO DAILY PRN PRN Reason: Constipation Glucose (Glucose Gel 15 Gm Gel..Gram.) 15 gm PO Q15M PRN; Protocol PRN Reason: per Hypoglycemia Standing Ord. Ceftriaxone Sodium 1 gm/ (Sodium Chloride) 50 mls @ 100 mls/hr IV Q24H [facility] Last Infusion: 06/28/22 23:02 Dose: 0 mls/hr Documented By: CAROL Sodium Chloride (Ns) 1,000 mls @ 80 mls/hr IVCONT .[id number] [facility] Last Admin: 06/29/22 03:46 Dose: 80 mls/hr Documented By: CAROL Doxycycline Hyclate 100 mg/ (Sodium Chloride) 250 mls @ 166.67 mls/hr IV Q12H [facility] Last Admin: 06/29/22 10:09 Dose: 166.67 mls/hr Documented By: MICHELLE Insulin Glargine (Insulin Glargine,Hum.Rec.Anlog 100 Unit/Ml 10 Ml Vial) 40 unit SUBCUT BEDTIME [facility] Last Admin: 06/28/22 21:53 Dose: 40 unit Documented By: TANMAY Insulin Human Lispro (Insulin Lispro 100 Unit/Ml 3 Ml Vial) 0 unit SUBCUT QIDACHS [facility]; Protocol Last Admin: 06/29/22 08:40 Dose: Not Given Documented By: MICHELLE Non-Admin Reason: No Insulin Coverage Levothyroxine Sodium (Levothyroxine Sodium 25 Mcg Tablet) 25 mcg PO 0630 [facility] Last Admin: 06/29/22 06:02 Dose: 25 mcg Documented By: TANMAY Metoprolol Succinate (Metoprolol Succinate Er 100 Mg Tab.Er.24h) 100 mg PO DAILY [facility]; Protocol Last Admin: 06/29/22 08:48 Dose: 100 mg Documented By: MICHELLE Morphine Sulfate (Morphine Sulfate 4 Mg/Ml Cartridge) 4 mg IVPUSH Q4H PRN; Protocol PRN Reason: Pain, Severe (Pain Scale 7-10) Last Admin: 06/29/22 09:14 Dose: 4 mg Documented By: MICHELLE Ondansetron HCl (Ondansetron Hcl 4 Mg/2 Ml Vial) 4 mg IVPUSH Q8H PRN PRN Reason: Nausea and Vomiting Oxybutynin Chloride (Oxybutynin Chloride Er 5 Mg Tab.Er.24) 10 mg PO DAILY [facility] Last Admin: 06/29/22 08:48 Dose: 10 mg Documented By: MICHELLE Sodium Chloride (0.9 % Sodium Chloride Flush 3 Ml Syringe) 3 ml IVFLUSH QSHIFT [facility] Last Admin: 06/29/22 08:50 Dose: 3 ml Documented By: MICHELLE Labs CBC & Chem 7: 06/29/22 06:00 06/29/22 06:00 Labs: Laboratory Results - last 24 hr 06/28/22 06/28/22 06/28/22 12:02 16:15 18:57 MCV MCH MCHC RDW Plt Count MPV Absolute Nucleated RBC Nucleated RBC % (auto) PT INR Anion Gap Estim Creat Clear Calc Estimated GFR POC Glucose 125 H 163 H 189 H Random Glucose Calcium 06/29/22 06/29/22 06/29/22 06:00 06:00 06:00 MCV 87.5 MCH 27.4 MCHC 31.4 RDW 15.4 Plt Count 230 MPV 9.0 L Absolute Nucleated RBC 0.000 Nucleated RBC % (auto) 0.0 PT 13.9 H INR 1.2 H Anion Gap 12 Estim Creat Clear Calc 33.6 Estimated GFR 34 POC Glucose Random Glucose 109 Calcium 7.9 L 06/29/22 08:20 MCV MCH MCHC RDW Plt Count MPV Absolute Nucleated RBC Nucleated RBC % (auto) PT INR Anion Gap Estim Creat Clear Calc Estimated GFR POC Glucose 99 Random Glucose Calcium Microbiology Microbiology Results: Microbiology 06/27/22 20:06 Blood Culture - Preliminary Blood - Venous No growth after 24 hours. 06/27/22 20:06 Blood Culture - Preliminary Blood - Venous No growth after 24 hours. 06/27/22 Unknown Urine Culture - Preliminary Urine clean catch - Urine pires top Culture in progress. Assessment and Plan (1) UTI (urinary tract infection): Status: Acute (2) Hematuria: Status: Acute (3) Cellulitis: Status: Acute Plan 81-year-old with past medical history of AFib on Coumadin presents to the hospital with hemorrhage # hematuria likely secondary to hemorrhage from bladder mass continue IV fluids received vitamin K to reverse INR hold aspirin urology consult pending plan for intervention on Thursday morning follow H&H # possible bladder mass # hydroureteronephrosis likely secondary to mass, to be evaluated by Urology, no [place] I per CT findings urology consulted for possible evaluation # UTI with possible pyelonephritis asymmetric right perinephric stranding afebrile, mild leukocytosis continue IV antibiotics pending cultures # LLE cellulitis Two recent open wounds with surrounding erythema Get surgical evaluation treated with IV doxycycline on admission to ceftriaxone Daily dressing # acute blood loss anemia Hemoglobin dropped to 10 from baseline of almost >12 Secondary to blood loss Consider transfusion if drops below 8 Monitor H and H # AFib continue rate control hold Coumadin for hematuria # diabetes low-dose sliding scale insulin diabetic diet DVT prophylaxis: SCDs patient will need overnight hospital stay to continue management for hematuria, UTI pending final culture to prevent possible decompensation. Quality Stroke Does the patient have a stroke diagnosis?: No VTE Prior VTE?: No VTE Risk Level:: Medical - moderate - high VTE Device Contraindication: N/A - Device Ordered VTE Drug Contraindication: Treatment Not Indicated
[2022-06-29 10:53] LABS: Glucose, Whole Blood 137 mg/dL (60-115)
--- NOTE | 2022-06-29 13:46 | P.PNGS_ITS ---
Subjective Subjective Date of Service: 06/29/22 Interval history: pt said on she had a bump on her left leg and when she slept nd rolled on it it got bigger and bled. she got admitted for urinary bleeding Physical Exam Vital Signs: Vital Signs: Last Vital Signs Temp 97.6 F 06/29/22 10:25 Pulse 109 H 06/29/22 10:25 Resp 18 06/29/22 10:25 BP 126/74 06/29/22 10:25 Pulse Ox 94 06/29/22 10:25 O2 Del Method 06/29/22 10:25 O2 Flow Rate 3.0 06/28/22 18:54 BMI result Body Mass Index 33.3 Skin: Other: left lower leg edematous compared to right lower leg. right leg with palpable pedal pulse and left leg not palpable otherwise looks like adequate blood flow two dine size fleshy wounds on lateral leg with some mild surrounding cellulitis. some murky drainiage but no undrained collections noted. areas are tender Objective Data Active Medications Acetaminophen (Acetaminophen 325 Mg Tablet) 650 mg PO Q6H PRN PRN Reason: Pain, Mild (Pain Scale 1-3) Last Admin: 06/28/22 18:48 Dose: 650 mg Documented By: ERNESTINE Amlodipine Besylate (Amlodipine Besylate 5 Mg Tablet) 5 mg PO DAILY [facility]; Protocol Last Admin: 06/29/22 08:50 Dose: 5 mg Documented By: MICHELLE Aspirin (Aspirin Enteric Coated 81 Mg Tablet.Dr) 81 mg PO DAILY [facility] Last Admin: 06/28/22 08:42 Dose: 81 mg Documented By: MANSI Atorvastatin Calcium (Atorvastatin Calcium 10 Mg Tablet) 10 mg PO BEDTIME [facility] Last Admin: 06/28/22 21:53 Dose: 10 mg Documented By: JOYCEJ Dextrose (Dextrose 50 % 25 Gm/50 Ml Syringe) 25 gm IVPUSH Q15M PRN; Protocol PRN Reason: per Hypoglycemia Standing Ord. Docusate Sodium (Docusate Sodium 100 Mg Capsule) 100 mg PO DAILY PRN PRN Reason: Constipation Glucose (Glucose Gel 15 Gm Gel..Gram.) 15 gm PO Q15M PRN; Protocol PRN Reason: per Hypoglycemia Standing Ord. Ceftriaxone Sodium 1 gm/ (Sodium Chloride) 50 mls @ 100 mls/hr IV Q24H [facility] Last Infusion: 06/28/22 23:02 Dose: 0 mls/hr Documented By: CAROL Sodium Chloride (Ns) 1,000 mls @ 80 mls/hr IVCONT .[id number] [facility] Last Admin: 06/29/22 03:46 Dose: 80 mls/hr Documented By: CAROL Doxycycline Hyclate 100 mg/ (Sodium Chloride) 250 mls @ 166.67 mls/hr IV Q12H [facility] Last Infusion: 06/29/22 12:19 Dose: 0 mls/hr Documented By: MICHELLE Insulin Glargine (Insulin Glargine,Hum.Rec.Anlog 100 Unit/Ml 10 Ml Vial) 40 unit SUBCUT BEDTIME [facility] Last Admin: 06/28/22 21:53 Dose: 40 unit Documented By: TANMAY Insulin Human Lispro (Insulin Lispro 100 Unit/Ml 3 Ml Vial) 0 unit SUBCUT QID ACHS [facility]; Protocol Last Admin: 06/29/22 12:19 Dose: Not Given Documented By: MICHELLE Non-Admin Reason: No Insulin Coverage Levothyroxine Sodium (Levothyroxine Sodium 25 Mcg Tablet) 25 mcg PO 0630 [facility] Last Admin: 06/29/22 06:02 Dose: 25 mcg Documented By: TANMAY Metoprolol Succinate (Metoprolol Succinate Er 100 Mg Tab.Er.24h) 100 mg PO DAILY [facility]; Protocol Last Admin: 06/29/22 08:48 Dose: 100 mg Documented By: MICHELLE Morphine Sulfate (Morphine Sulfate 4 Mg/Ml Cartridge) 4 mg IVPUSH Q4H PRN; Protocol PRN Reason: Pain, Severe (Pain Scale 7-10) Last Admin: 06/29/22 09:14 Dose: 4 mg Documented By: MICHELLE Ondansetron HCl (Ondansetron Hcl 4 Mg/2 Ml Vial) 4 mg IVPUSH Q8H PRN PRN Reason: Nausea and Vomiting Oxybutynin Chloride (Oxybutynin Chloride Er 5 Mg Tab.Er.24) 10 mg PO DAILY [facility] Last Admin: 06/29/22 08:48 Dose: 10 mg Documented By: MICHELLE Sodium Chloride (0.9 % Sodium Chloride Flush 3 Ml Syringe) 3 ml IVFLUSH QSHIFT [facility] Last Admin: 06/29/22 08:50 Dose: 3 ml Documented By: MICHELLE Labs CBC & Chem 7: 06/29/22 06:00 06/29/22 06:00 Labs: Laboratory Results - last 24 hr 06/28/22 06/28/22 06/29/22 16:15 18:57 06:00 MCV MCH MCHC RDW Plt Count MPV Absolute Nucleated RBC Nucleated RBC % (auto) PT 13.9 H INR 1.2 H Anion Gap Estim Creat Clear Calc Estimated GFR POC Glucose 163 H 189 H Random Glucose Calcium 06/29/22 06/29/22 06/29/22 06:00 06:00 08:20 MCV 87.5 MCH 27.4 MCHC 31.4 RDW 15.4 Plt Count 230 MPV 9.0 L Absolute Nucleated RBC 0.000 Nucleated RBC % (auto) 0.0 PT INR Anion Gap 12 Estim Creat Clear Calc 33.6 Estimated GFR 34 POC Glucose 99 Random Glucose 109 Calcium 7.9 L 06/29/22 10:30 MCV MCH MCHC RDW Plt Count MPV Absolute Nucleated RBC Nucleated RBC % (auto) PT INR Anion Gap Estim Creat Clear Calc Estimated GFR POC Glucose 137 H Random Glucose Calcium Microbiology Microbiology Results: Microbiology 06/27/22 Unknown Urine Culture - Final Urine clean catch - Urine pires top 06/27/22 20:06 Blood Culture - Preliminary Blood - Venous No growth after 24 hours. 06/27/22 20:06 Blood Culture - Preliminary Blood - Venous No growth after 24 hours. Procedures Date of Service Date of Service: 06/29/22 Progress Note: A&P Assessment and plan (1) Leg wound, left: Status: Acute Plan 81 year old female with other med issues and now diabetic left leg wounds -? etiology trauma vs pyogenic granuloma vs something else at this point treat with hydrafera blue and some compression to reduce edema consider left lower leg dopler to eval blood flow if not healing pt should be followed up in wound care as outpt when dc she wants to get her right hip done but surgeon will most likely want open wounds to be healed before then agree with doxycycline to help with leg skin lesions/wounds too Time Spent With Patient Time: Total time spent is greater than 50% in coordination of care (as documented) at patient's floor/unit and/or counseling patient: Quality Stroke Does the patient have a stroke diagnosis?: No VTE Prior VTE?: No VTE Risk Level:: Medical - moderate - high VTE Device Contraindication: N/A - Device Ordered VTE Drug Contraindication: Treatment Not Indicated
[2022-06-29 15:21] VITALS: BP 112/74; PULSE 110; RESP 19; TEMP 36.6; O2SAT 91
[2022-06-29 15:57] LABS: Glucose, Whole Blood 126 mg/dL (60-115)
[2022-06-29] MEDS: Acetaminophen 325 MG TABLET 650 MG PO (16:35)
--- NOTE | 2022-06-29 16:40 | P.CNUR_ITS ---
History of Present Illness Consult details Consult date: 06/29/22 Narrative: CC: Hematuria - elevated coumadin 81-year-old female SPT in place Presents with hematuria Imaging with bilateral hydronephrosis and thickening of bladder wall Plan for cystoscopy, clot evacuation Review of Systems Constitutional: Constitutional: Reports as per HPI and Reports no additional constitutional complaints Cardiovascular: Cardiovascular: Reports as per HPI and Reports no additional cardiovascular complaints Respiratory: Respiratory: Reports as per HPI and Reports no additional respira tory complaints Gastrointestinal: Gastrointestinal: Reports as per HPI and Reports no additional gastrointestinal complaints Genitourinary: Genitourinary: Reports as per HPI Musculoskeletal: Musculoskeletal: Reports no additional musculoskeletal complaints and Reports as per HPI Neurologic: Reports system reviewed and no additional complaints, except as documented and Reports as per HPI PMF Past Medical History Medical History Atrial fibrillation CAD (coronary artery disease) CKD (chronic kidney disease) Congestive heart failure Diabetes Hypertension Hypothyroidism Hypotonic neurogenic bladder PAF (paroxysmal atrial fibrillation) Urinary incontinence Family History Family History Father Hx of angina pectoris Myocardial infarction Mother Ovarian cancer Stomach cancer Maternal Grandfather Hardening of the arteries of the heart Surgical History Surgical History H/O heart artery stent H/O nasal polypectomy History of tonsillectomy and adenoidectomy History of tubal ligation Hx of cholecystectomy Social History Social History Household Members: Children Household Members Other:: daughter Housing: House Do you presently have visiting nurse or other home services: No Alcohol intake: never Patient Tobacco Use Status: Never used Tobacco Second Hand Smoke Exposure: No service: No Current occupational status: retired [employer] Allergies Allergy/AdvReac Type Severity Reaction Status Date / Time No Known Allergies Allergy Verified 06/26/22 13:07 [No Known Allergies*] Active Medications: Current Medications Acetaminophen (Acetaminophen 325 Mg Tablet) 650 mg PO Q6H PRN PRN Reason: Pain, Mild (Pain Scale 1-3) Last Admin: 06/29/22 16:35 Dose: 650 mg Amlodipine Besylate (Amlodipine Besylate 5 Mg Tablet) 5 mg PO DAILY [facility]; Protocol Last Admin: 06/29/22 08:50 Dose: 5 mg Aspirin (Aspirin Enteric Coated 81 Mg Tablet.Dr) 81 mg PO DAILY [facility] Last Admin: 06/28/22 08:42 Dose: 81 mg Atorvastatin Calcium (Atorvastatin Calcium 10 Mg Tablet) 10 mg PO BEDTIME [facility] Last Admin: 06/28/22 21:53 Dose: 10 mg Dextrose (Dextrose 50 % 25 Gm/50 Ml Syringe) 25 gm IVPUSH Q15M PRN; Protocol PRN Reason: per Hypoglycemia Standing Ord. Docusate Sodium (Docusate Sodium 100 Mg Capsule) 100 mg PO DAILY PRN PRN Reason: Constipation Glucose (Glucose Gel 15 Gm Gel..Gram.) 15 gm PO Q15M PRN; Protocol PRN Reason: per Hypoglycemia Standing Ord. Ceftriaxone Sodium 1 gm/ (Sodium Chloride) 50 mls @ 100 mls/hr IV Q24H [facility] Last Infusion: 06/28/22 23:02 Dose: Infused Sodium Chloride (Ns) 1,000 mls @ 80 mls/hr IVCONT .[id number] [facility] Last Admin: 06/29/22 03:46 Dose: 80 mls/hr Doxycycline Hyclate 100 mg/ (Sodium Chloride) 250 mls @ 166.67 mls/hr IV Q12H [facility] Last Infusion: 06/29/22 12:19 Dose: Infused Insulin Glargine (Insulin Glargine,Hum.Rec.Anlog 100 Unit/Ml 10 Ml Vial) 40 unit SUBCUT BEDTIME [facility] Last Admin: 06/28/22 21:53 Dose: 40 unit Insulin Human Lispro (Insulin Lispro 100 Unit/Ml 3 Ml Vial) 0 unit SUBCUT QIDACHS [facility]; Protocol Last Admin: 06/29/22 12:19 Dose: Not Given Levothyroxine Sodium (Levothyroxine Sodium 25 Mcg Tablet) 25 mcg PO 0630 [facility] Last Admin: 06/29/22 06:02 Dose: 25 mcg Metoprolol Succinate (Metoprolol Succinate Er 100 Mg Tab.Er.24h) 100 mg PO DAILY [facility]; Protocol Last Admin: 06/29/22 08:48 Dose: 100 mg Morphine Sulfate (Morphine Sulfate 4 Mg/Ml Cartridge) 4 mg IVPUSH Q4H PRN; Protocol PRN Reason: Pain, Severe (Pain Scale 7-10) Last Admin: 06/29/22 09:14 Dose: 4 mg Ondansetron HCl (Ondansetron Hcl 4 Mg/2 Ml Vial) 4 mg IVPUSH Q8H PRN PRN Reason: Nausea and Vomiting Oxybutynin Chloride (Oxybutynin Chloride Er 5 Mg Tab.Er.24) 10 mg PO DAILY [facility] Last Admin: 06/29/22 08:48 Dose: 10 mg Sodium Chloride (0.9 % Sodium Chloride Flush 3 Ml Syringe) 3 ml IVFLUSH QSHIFT [facility] Last Admin: 06/29/22 08:50 Dose: 3 ml Home Medications Medication Instructions Recorded Confirmed Last Taken Type levothyroxine 25 mcg tablet 25 mcg PO DAILY 09/05/20 06/27/22 Unknown History oxybutynin chloride 10 mg 10 mg PO DAILY 09/05/20 06/27/22 Unknown History tablet,extended release 24 hr insulin glargine 100 unit/mL (3 40 unit subcut BEDTIME 10/14/20 06/27/22 Unknown History mL) subcutaneous pen (Lantus Solostar U-100 Insulin) aspirin 81 mg tablet,delayed 81 mg PO DAILY 09/11/21 06/27/22 Unknown History release vit 1 cap PO DAILY 09/11/21 06/27/22 Unknown History C,E,zinc,At-rrkfz-0-lutein-zeaxanthin 250 mg-2.5 mg-0.5 mg capsule pen needle, diabetic 32 gauge x #50 ea 12/31/21 06/27/22 Unknown History (BD Cathy 2nd Gen Pen Needle) atorvastatin 10 mg tablet 10 mg PO BEDTIME 02/06/22 06/27/22 Unknown History ciprofloxacin HCl 500 mg tablet 1 tab PO DAILY PRN Catheter 06/27/22 06/27/22 Unknown History Insertion Physical Exam Vital Signs: Vital Signs: Last Vital Signs Temp 97.8 F 06/29/22 15:21 Pulse 110 H 06/29/22 15:21 Resp 19 06/29/22 15:21 BP 112/74 06/29/22 15:21 Pulse Ox 91 L 06/29/22 15:21 O2 Del Method 06/29/22 15:21 O2 Flow Rate 3.0 06/28/22 18:54 BMI result Body Mass Index 33.3 Const: General: cooperative, healthy appearing, comfortable and no acute distress Orientation/consciousness: patient oriented x3 HEENT: Face and sinus: Yes normal facial exam Mouth: moist mucous membranes Neck: Neck: Yes normal visual inspection, Yes full ROM and Yes trachea midline Chest: Chest palpation & inspection: normal inspection of the chest Resp: Effort & Inspection: normal respiratory effort, able to speak in complete sentences and no respiratory distress GI: Inspection: Yes normal to inspection Back/Spine/Pelvis: Cervical Spine: normal cervical lordosis Thoracic/Lumbar Spine: thoracic and lumbar spine normal to inspection Skin: General skin exam: no rashes or lesions noted Neuro: General: patient oriented x3, tone normal and moves all extremities Extrem: General: Yes normal to inspection and Yes capillary refill normal Results Labs Result diagrams: 06/29/22 06:00 06/29/22 06:00 Labs: Abnormal lab results 06/28/22 06/29/22 06/29/22 Range/Units 18:57 06:00 06:00 RBC 3.68 L (4.20-5.50) X10*6/uL Hgb 10.1 L (12.0-16.0) g/dl Hct 32.2 L (37.0-47.0) % MPV 9.0 L (9.4-12.3) fL PT 13.9 H (10.0-13.1) SEC INR 1.2 H (0.9-1.1) BUN (9-16) mg/dL Creatinine (0.5-1.4) mg/dL POC Glucose 189 H (60-115) mg/dL Calcium (8.4-10.2) mg/dL 06/29/22 06/29/22 06/29/22 Range/Units 06:00 10:30 15:24 RBC (4.20-5.50) X10*6/uL Hgb (12.0-16.0) g/dl Hct (37.0-47.0) % MPV (9.4-12.3) fL PT (10.0-13.1) SEC INR (0.9-1.1) BUN 28 H (9-16) mg/dL Creatinine 1.46 H (0.5-1.4) mg/dL POC Glucose 137 H 126 H (60-115) mg/dL Calcium 7.9 L (8.4-10.2) mg/dL Short CBC 06/29/22 Range/Units 06:00 WBC 8.4 (4.8-10.8) X10*3/uL Hgb 10.1 L (12.0-16.0) g/dl Hct 32.2 L (37.0-47.0) % Plt Count 230 (160-400) X10*3/uL BMP 06/29/22 06:00 Sodium 140 Potassium 4.1 Chloride 105 Carbon Dioxide 27 BUN 28 H Creatinine 1.46 H Calcium 7.9 L Urine 06/27/22 Range/Units 20:05 Urine Color RED Urine Appearance Cloudy Urine pH 8.5 H (5.0-8.0) Ur Specific [place] 1.015 (1.005-1.025) Urine Protein 300 (3+) H (Neg-Trace) mg/dL Urine Glucose (UA) 100 H (Negative) mg/dL All other labs normal. Assessment and Plan (1) Pyelonephritis: Status: Acute (2) Bladder mass: Status: Acute (3) Hydroureteronephrosis: Status: Acute Plan Cystoscopy and bladder irrigation on Thursday Procedures Date of Service Date of Service: 06/29/22
[2022-06-29 19:43] VITALS: BP 139/100; PULSE 107; RESP 18; TEMP 36.5; O2SAT 88
[2022-06-29 20:44] LABS: Glucose, Whole Blood 156 mg/dL (60-115)
[2022-06-29] MEDS: cefTRIAXone sodium 1 GM in 0.9 % Sodium Chloride 50 ML IV (21:40)
[2022-06-29] MEDS: Atorvastatin Calcium 10 MG TABLET PO (21:45)
[2022-06-29] MEDS: Insulin Lispro 100 UNIT/ML 3 ML VIAL SUBCUT (21:45)
[2022-06-29] MEDS: Insulin Glargine,Hum.rec.anlog 100 UNIT/ML 10 ML VIAL 40 UNIT SUBCUT (21:45)
[2022-06-29 23:53] VITALS: BP 140/80; PULSE 95; RESP 19; TEMP 36.7; O2SAT 92
[2022-06-30] VITALS (11 sets, daily range): BP systolic 124–155; BP diastolic 58–119; PULSE 93–115; RESP 16–18; TEMP 36.6–37.4; O2SAT 90–99; BMI 33.3
[2022-06-30] MEDS: Levothyroxine Sodium 25 MCG TABLET PO (05:23)
[2022-06-30] MEDS: Morphine Sulfate 4 MG/ML CARTRIDGE IVPUSH (05:51)
[2022-06-30 05:58] LABS: Hematocrit 34.4 % (37.0-47.0); Hemoglobin 10.7 g/dl (12.0-16.0); Mean Corpuscular HGB Conc 31.1 g/dl (31.0-35.0); Mean Corpuscular Hemoglobin 27.6 pg (27.0-33.0); Mean Corpuscular Volume 88.7 fL (80.0-98.0); Mean Platelet Volume 9.7 fL (9.4-12.3); Platelet Count 281 X10*3/uL (160-400); Red Blood Count 3.88 X10*6/uL (4.20-5.50); Red Cell Distribution Width 15.7 % (11.0-16.0); White Blood Count 9.1 X10*3/uL (4.8-10.8)
[2022-06-30 06:15] LABS: INTERNATIONAL NORM RATIO 1.1 (0.9-1.1); Prothrombin Time 12.9 SEC (10.0-13.1)
[2022-06-30 06:17] LABS: Anion Gap 17 (12-20); Blood Urea Nitrogen 29 mg/dL (9-16); Calcium 7.8 mg/dL (8.4-10.2); Carbon Dioxide 18 mmol/L (22-29); Chloride 107 mmol/L (96-108); Creatinine Clr Calc Pharmacy 33.2; Estimated Glomerular Filt Rate 34; Glucose Random 131 mg/dL (60-115); Potassium 4.3 mmol/L (3.3-5.1); Sodium 138 mmol/L (135-145)
[2022-06-30 07:36] LABS: Glucose, Whole Blood 127 mg/dL (60-115)
[2022-06-30] MEDS: amLODIPine Besylate 5 MG TABLET PO (08:47)
[2022-06-30] MEDS: Metoprolol Succinate ER 100 MG TAB.ER.24H PO (08:47)
[2022-06-30] MEDS: Doxycycline Hyclate 100 MG in 0.9 % Sodium Chloride 250 ML 166.67 MG IV ×2 (10:22→22:40)
[2022-06-30 11:36] LABS: Glucose, Whole Blood 111 mg/dL (60-115)
--- NOTE | 2022-06-30 11:36 | P.PNIM_ITS ---
Subjective Subjective Date of Service: 06/30/22 Interval History: the patient was seen and evaluated this morning Laying in bed, feels tired still having significant hematuria with no drop in hemoglobin Denies any fever, chills or Pain No reported other overnight events. Systemic review: No fever, chills or weakness No chest pain, palpitation No shortness of breath or coughing No abdominal pain, nausea or vomiting hematuria left lower extremity wounds Physical Exam Vital Signs: Vital Signs: Last Vital Signs Temp 98.2 F 06/30/22 07:54 Pulse 98 06/30/22 07:54 Resp 18 06/30/22 07:54 BP 129/92 H 06/30/22 07:54 Pulse Ox 91 L 06/30/22 07:54 O2 Del Method 06/30/22 07:54 O2 Flow Rate 2.0 06/30/22 07:54 BMI result Body Mass Index 33.3 Const: Other: Constitutional : Alert, oriented, not in distress Neck : Normal inspection, Supple Cardiovascular : RRR, no JVP, no lower extremity edema Respiratory : fair bilateral air entry, basal fine crackles, wheezes or rhonchi Gastrointestinal: soft, lax, Normal bowel sounds, Non tender Skin : Warm, Dry, left lower extremity 2 open wounds with small amount of serous drainage and surrounding erythema with tenderness Urology: suprapubic catheter in place, dark hematuria urine Neurological : Alert & oriented x3, No focal deficit , CN 2-12 within normal Objective Data Active Medications Acetaminophen (Acetaminophen 325 Mg Tablet) 650 mg PO Q6H PRN PRN Reason: Pain, Mild (Pain Scale 1-3) Last Admin: 06/29/22 16:35 Dose: 650 mg Documented By: MICHELLE Amlodipine Besylate (Amlodipine Besylate 5 Mg Tablet) 5 mg PO DAILY [facility]; Protocol Last Admin: 06/30/22 08:47 Dose: 5 mg Documented By: LAZARA Aspirin (Aspirin Enteric Coated 81 Mg Tablet.) 81 mg PO DAILY [facility] Last Admin: 06/28/22 08:42 Dose: 81 mg Documented By: MANSI Atorvastatin Calcium (Atorvastatin Calcium 10 Mg Tablet) 10 mg PO BEDTIME [facility] Last Admin: 06/29/22 21:45 Dose: 10 mg Documented By: PEDRITO Dextrose (Dextrose 50 % 25 Gm/50 Ml Syringe) 25 gm IVPUSH Q15M PRN; Protocol PRN Reason: per Hypoglycemia Standing Ord. Docusate Sodium (Docusate Sodium 100 Mg Capsule) 100 mg PO DAILY PRN PRN Reason: Constipation Glucose (Glucose Gel 15 Gm Gel..Gram.) 15 gm PO Q15M PRN; Protocol PRN Reason: per Hypoglycemia Standing Ord. Ceftriaxone Sodium 1 gm/ (Sodium Chloride) 50 mls @ 100 mls/hr IV Q24H [facility] Last Infusion: 06/29/22 22:10 Dose: 0 mls/hr Documented By: PEDRITO Doxycycline Hyclate 100 mg/ (Sodium Chloride) 250 mls @ 166.67 mls/hr IV Q12H [facility] Last Admin: 06/30/22 10:22 Dose: 166.67 mls/hr Documented By: LAZARA Insulin Glargine (Insulin Glargine,Hum.Rec.Anlog 100 Unit/Ml 10 Ml Vial) 40 unit SUBCUT BEDTIME [facility] Last Admin: 06/29/22 21:45 Dose: 40 unit Documented By: PEDRITO Insulin Human Lispro (Insulin Lispro 100 Unit/Ml 3 Ml Vial) 0 unit SUBCUT QIDACHS [facility]; Protocol Last Admin: 06/30/22 07:36 Dose: Not Given Documented By: LAZARA Non-Admin Reason: No Insulin Coverage Levothyroxine Sodium (Levothyroxine Sodium 25 Mcg Tablet) 25 mcg PO 0630 [facility] Last Admin: 06/30/22 05:23 Dose: 25 mcg Documented By: PEDRITO Metoprolol Succinate (Metoprolol Succinate Er 100 Mg Tab.Er.24h) 100 mg PO DAILY [facility]; Protocol Last Admin: 06/30/22 08:47 Dose: 100 mg Documented By: LAZARA Morphine Sulfate (Morphine Sulfate 4 Mg/Ml Cartridge) 4 mg IVPUSH Q4H PRN; Protocol PRN Reason: Pain, Severe (Pain Scale 7-10) Last Admin: 06/30/22 05:51 Dose: 4 mg Documented By: PEDRITO Ondansetron HCl (Ondansetron Hcl 4 Mg/2 Ml Vial) 4 mg IVPUSH Q8H PRN PRN Reason: Nausea and Vomiting Oxybutynin Chloride (Oxybutynin Chloride Er 5 Mg Tab.Er.24) 10 mg PO DAILY [facility] Last Admin: 06/30/22 08:46 Dose: 10 mg Documented By: LAZARA Sodium Chloride (0.9 % Sodium Chloride Flush 3 Ml Syringe) 3 ml IVFLUSH QSHIFT [facility] Last Admin: 06/30/22 07:36 Dose: Not Given Documented By: LAZARA Non-Admin Reason: IV Running Labs CBC & Chem 7: 06/30/22 05:05 06/30/22 05:05 Labs: Laboratory Results - last 24 hr 06/29/22 06/29/22 06/30/22 15:24 19:48 05:05 MCV MCH MCHC RDW Plt Count MPV Absolute Nucleated RBC Nucleated RBC % (auto) PT 12.9 INR 1.1 Anion Gap Estim Creat Clear Calc Estimated GFR POC Glucose 126 H 156 H Random Glucose Calcium 06/30/22 06/30/22 06/30/22 05:05 05:05 07:19 MCV 88.7 MCH 27.6 MCHC 31.1 RDW 15.7 Plt Count 281 MPV 9.7 Absolute Nucleated RBC 0.000 Nucleated RBC % (auto) 0.0 PT INR Anion Gap 17 Estim Creat Clear Calc 33.2 Estimated GFR 34 POC Glucose 127 H Random Glucose 131 H Calcium 7.8 L Microbiology Microbiology Results: Microbiology 06/27/22 20:06 Blood Culture - Preliminary Blood - Venous No growth after 48 hours. 06/27/22 20:06 Blood Culture - Preliminary Blood - Venous No growth after 48 hours. 06/27/22 Unknown Urine Culture - Final Urine clean catch - Urine pires top Assessment and Plan (1) Leg wound, left: Status: Acute (2) Cellulitis: Status: Acute (3) UTI (urinary tract infection): Status: Acute (4) Hematuria: Status: Acute Plan 81-year-old with past medical history of AFib on Coumadin presents to the hospital with hemorrhage # hematuria likely secondary to hemorrhage from bladder mass DC IV fluids received vitamin K to reverse INR hold aspirin urology consult to do intervention today stable H&H # bladder mass # hydroureteronephrosis likely secondary to mass, to be evaluated by Urology, no Turner I per CT findings urology consulted for possible evaluation # UTI with possible pyelonephritis asymmetric right perinephric stranding afebrile, mild leukocytosis on IV antibiotics, to finish total of 7-10 days of antibiotics negative urine and blood cultures # LLE cellulitis Two recent open wounds with surrounding erythema continue IV doxycycline on admission to ceftriaxone Daily dressing surgery input appreciated, Hydrea fair, compression, to follow with outpatient upon discharge Get left lower leg Dopplers if not improving # acute blood loss anemia Hemoglobin Stable between 10-11 Consider transfusion if drops below 8 Monitor H and H # AFib continue rate control hold Coumadin for hematuria # diabetes low-dose sliding scale insulin diabetic diet DVT prophylaxis: SCDs patient will need overnight hospital stay to continue management for hematuria, by the nephritis, cellulitis to prevent possible decompensation into sepsis and renal failure Quality Stroke Does the patient have a stroke diagnosis?: No VTE Prior VTE?: No VTE Risk Level:: Medical - moderate - high VTE Device Contraindication: N/A - Device Ordered VTE Drug Contraindication: Treatment Not Indicated
[2022-06-30 14:52] LABS: Glucose, Whole Blood 105 mg/dL (60-115)
--- NOTE | 2022-06-30 14:58 | PC.NURSE ---
pt with rapid afib low 100, to 120 with freq pvc. cortext to pa hospitalist bp 155/79. asymptomatic, metoprolol 5mg iv ordered & given. lasix 40mg iv ordered and given (see emar).
[2022-06-30] MEDS: Metoprolol Tartrate 5 MG/5 ML VIAL IVPUSH (15:11)
--- NOTE | 2022-06-30 15:16 | PC.NURSE ---
poor iv access start iv by this to r thumb #20 before metoprolol given. reassess b/p s/p metoprol 5mg iv. hr 113-115 afib 148/76. lasix 40mg iv given.
[2022-06-30] MEDS: Furosemide 40 MG/4 ML VIAL IVPUSH ×2 (15:21→19:06)
--- NOTE | 2022-06-30 15:35 | PC.NURSE ---
afib 105 155/79 dr stevens attempting iv with ultrasound. in r arm. #20 L thumb did take metoprolol & lasix and flushed with ease. re-coretext to dr. mora regarding little effect on heartrate
[2022-06-30] MEDS: dilTIAZem HCL 50 MG/10 ML VIAL 10 MG IVPUSH (15:54)
[2022-06-30] MEDS: dilTIAZem HCL 125 MG in 0.9 % Sodium Chloride 100 ML 10 MG IVCONT (16:08)
--- NOTE | 2022-06-30 16:12 | PC.NURSE ---
afib 90's to 114 afib pvc, s/p cardizem 10mg iv stat & cardizem drip up at 10mg/h. report to tana rivera rn.
--- NOTE | 2022-06-30 16:15 | PC.NURSE ---
new #[address] stevens. decision to postpone procedure
[2022-06-30 17:56] LABS: Glucose, Whole Blood 96 mg/dL (60-115)
[2022-06-30 19:44] LABS: Glucose, Whole Blood 145 mg/dL (60-115)
[2022-06-30] MEDS: Atorvastatin Calcium 10 MG TABLET PO (21:58)
[2022-06-30] MEDS: 0.9 % Sodium Chloride Flush 3 ML SYRINGE IVFLUSH (21:58)
[2022-06-30] MEDS: cefTRIAXone sodium 1 GM in 0.9 % Sodium Chloride 50 ML IV (21:58)
[2022-06-30] MEDS: Insulin Glargine,Hum.rec.anlog 100 UNIT/ML 10 ML VIAL 40 UNIT SUBCUT (22:01)
[2022-07-01] VITALS (14 sets, daily range): BP systolic 76–151; BP diastolic 34–73; PULSE 72–97; RESP 14–24; TEMP 36.1–37.7; O2SAT 90–96
[2022-07-01] MEDS: dilTIAZem HCL 125 MG in 0.9 % Sodium Chloride 100 ML 10 MG IVCONT (02:16)
[2022-07-01 05:57] LABS: Hematocrit 30.1 % (37.0-47.0); Hemoglobin 9.8 g/dl (12.0-16.0); Mean Corpuscular HGB Conc 32.6 g/dl (31.0-35.0); Mean Corpuscular Hemoglobin 27.8 pg (27.0-33.0); Mean Corpuscular Volume 85.5 fL (80.0-98.0); Mean Platelet Volume 8.7 fL (9.4-12.3); Platelet Count 277 X10*3/uL (160-400); Red Blood Count 3.52 X10*6/uL (4.20-5.50); Red Cell Distribution Width 15.6 % (11.0-16.0); White Blood Count 9.7 X10*3/uL (4.8-10.8)
[2022-07-01] MEDS: Morphine Sulfate 4 MG/ML CARTRIDGE IVPUSH ×2 (06:14→11:36)
[2022-07-01 06:24] LABS: Anion Gap 15 (12-20); Blood Urea Nitrogen 22 mg/dL (9-16); Carbon Dioxide 21 mmol/L (22-29); Chloride 106 mmol/L (96-108); Estimated Glomerular Filt Rate 37; Glucose Random 76 mg/dL (60-115); Potassium 3.3 mmol/L (3.3-5.1); Sodium 139 mmol/L (135-145)
[2022-07-01 07:48] LABS: Glucose, Whole Blood 77 mg/dL (60-115)
--- NOTE | 2022-07-01 09:16 | MHC.CM.PN ---
CM met with Patient at bedside and addressed IMM with her, providing her with the original and placing a copy on the chart. Patient lives in a house with her Daughter and her goal is to return home; Patient is listed as a 2 assist and may benefit from a PT eval to assist with home with new vna vs str decision. CM has initiated and will follow for dc planning. Patient has received Covid vax X4 and her PCP is Dr. Nano Delaney. Patient is not yet interested in completing a HCP; she stated, I guess I will have to at some point.
[2022-07-01] MEDS: Metoprolol Succinate ER 100 MG TAB.ER.24H PO (09:40)
[2022-07-01] MEDS: Potassium Chloride ER 20 MEQ TAB.ER.PRT 40 MEQ PO (09:41)
[2022-07-01] MEDS: Doxycycline Hyclate 100 MG in 0.9 % Sodium Chloride 250 ML 166.67 MG IV (09:42)
[2022-07-01] MEDS: 0.9 % Sodium Chloride Flush 3 ML SYRINGE IVFLUSH (09:43)
[2022-07-01] MEDS: Furosemide 40 MG/4 ML VIAL IVPUSH (09:44)
[2022-07-01] MEDS: Acetaminophen 325 MG TABLET 650 MG PO ×2 (09:49→22:37)
[2022-07-01 11:20] LABS: Glucose, Whole Blood 79 mg/dL (60-115)
--- NOTE | 2022-07-01 12:01 | P.PNIM_ITS ---
Subjective Subjective Date of Service: 07/01/22 Interval History: the patient was seen and evaluated this morning Laying in bed, feels tired Improved hematuria with no drop in hemoglobin Denies any fever, chills or Pain No reported other overnight events. Systemic review: No fever, chills or weakness No chest pain, palpitation No shortness of breath or coughing No abdominal pain, nausea or vomiting hematuria improving left lower extremity wounds Physical Exam Vital Signs: Vital Signs: Last Vital Signs Temp 98.3 F 07/01/22 11:06 Pulse 93 07/01/22 11:06 Resp 17 07/01/22 11:06 BP 137/65 07/01/22 11:06 Pulse Ox 93 07/01/22 11:06 O2 Del Method 07/01/22 11:06 O2 Flow Rate 4 07/01/22 11:06 BMI result Body Mass Index 33.3 Const: Other: Constitutional : Alert, oriented, not in distress Neck : Normal inspection, Supple Cardiovascular : RRR, no JVP, no lower extremity edema Respiratory : fair bilateral air entry, basal fine crackles, wheezes or rhonchi Gastrointestinal: soft, lax, Normal bowel sounds, Non tender Skin : Warm, Dry, left lower extremity 2 open wounds with improvement of surrounding erythema and tenderness Urology: suprapubic catheter in place, clearing hematuria urine Neurological : Alert & oriented x3, No focal deficit , CN 2-12 within normal Objective Data Active Medications Acetaminophen (Acetaminophen 325 Mg Tablet) 650 mg PO Q6H PRN PRN Reason: Pain, Mild (Pain Scale 1-3) Last Admin: 07/01/22 09:49 Dose: 650 mg Documented By: HATTIE Atorvastatin Calcium (Atorvastatin Calcium 10 Mg Tablet) 10 mg PO BEDTIME [facility] Last Admin: 06/30/22 21:58 Dose: 10 mg Documented By: KASH Dextrose (Dextrose 50 % 25 Gm/50 Ml Syringe) 25 gm IVPUSH Q15M PRN; Protocol PRN Reason: per Hypoglycemia Standing Ord. Docusate Sodium (Docusate Sodium 100 Mg Capsule) 100 mg PO DAILY PRN PRN Reason: Constipation Furosemide (Furosemide 40 Mg/4 Ml Vial) 40 mg IVPUSH BID@0900,1800 [facility]; Protocol Last Admin: 07/01/22 09:44 Dose: 40 mg Documented By: HO.WRIGHTS Glucose (Glucose Gel 15 Gm Gel..Gram.) 15 gm PO Q15M PRN; Protocol PRN Reason: per Hypoglycemia Standing Ord. Ceftriaxone Sodium 1 gm/ (Sodium Chloride) 50 mls @ 100 mls/hr IV Q24H [facility] Last Infusion: 06/30/22 22:30 Dose: 0 mls/hr Documented By: KASH Doxycycline Hyclate 100 mg/ (Sodium Chloride) 250 mls @ 166.67 mls/hr IV Q12H [facility] Last Infusion: 07/01/22 11:42 Dose: 0 mls/hr Documented By: HATTIE Diltiazem HCl 125 mg/ Sodium (Chloride) 125 mls @ 0 mls/hr IVCONT .Q0M [facility]; Protocol Last Titration: 07/01/22 09:43 Dose: 0 mg/hr, 0 mls/hr Documented By: HATTIE Insulin Glargine (Insulin Glargine,Hum.Rec.Anlog 100 Unit/Ml 10 Ml Vial) 40 unit SUBCUT BEDTIME [facility] Last Admin: 06/30/22 22:01 Dose: 40 unit Documented By: KASH Insulin Human Lispro (Insulin Lispro 100 Unit/Ml 3 Ml Vial) 0 unit SUBCUT QIDACHS [facility]; Protocol Last Admin: 07/01/22 11:44 Dose: Not Given Documented By: HATTIE Non-Admin Reason: No Insulin Coverage Levothyroxine Sodium (Levothyroxine Sodium 25 Mcg Tablet) 25 mcg PO 0630 [facility] Last Admin: 07/01/22 06:17 Dose: Not Given Documented By: KASH Non-Admin Reason: NPO Metoprolol Succinate (Metoprolol Succinate Er 100 Mg Tab.Er.24h) 100 mg PO DAILY [facility]; Protocol Last Admin: 07/01/22 09:40 Dose: 100 mg Documented By: HATTIE Morphine Sulfate (Morphine Sulfate 4 Mg/Ml Cartridge) 4 mg IVPUSH Q4H PRN; Protocol PRN Reason: Pain, Severe (Pain Scale 7-10) Last Admin: 07/01/22 11:36 Dose: 4 mg Documented By: HATTIE Ondansetron HCl (Ondansetron Hcl 4 Mg/2 Ml Vial) 4 mg IVPUSH Q8H PRN PRN Reason: Nausea and Vomiting Oxybutynin Chloride (Oxybutynin Chloride Er 5 Mg Tab.Er.24) 10 mg PO DAILY [facility] Last Admin: 07/01/22 09:41 Dose: 10 mg Documented By: HATTIE Sodium Chloride (0.9 % Sodium Chloride Flush 3 Ml Syringe) 3 ml IVFLUSH QSHIFT [facility] Last Admin: 07/01/22 09:43 Dose: 3 ml Documented By: HATTIE Labs CBC & Chem 7: 07/01/22 05:48 07/01/22 05:48 Labs: Laboratory Results - last 24 hr 06/30/22 06/30/22 06/30/22 14:48 17:53 19:40 MCV MCH MCHC RDW Plt Count MPV Absolute Nucleated RBC Nucleated RBC % (auto) Anion Gap Estim Creat Clear Calc Estimated GFR POC Glucose 105 96 145 H Random Glucose Calcium 07/01/22 07/01/22 07/01/22 05:48 05:48 07:35 MCV 85.5 MCH 27.8 MCHC 32.6 RDW 15.6 Plt Count 277 MPV 8.7 L Absolute Nucleated RBC 0.000 Nucleated RBC % (auto) 0.0 Anion Gap 15 Estim Creat Clear Calc 36.0 Estimated GFR 37 POC Glucose 77 Random Glucose 76 Calcium 8.0 L 07/01/22 11:09 MCV MCH MCHC RDW Plt Count MPV Absolute Nucleated RBC Nucleated RBC % (auto) Anion Gap Estim Creat Clear Calc Estimated GFR POC Glucose 79 Random Glucose Calcium Assessment and Plan (1) Leg wound, left: Status: Acute (2) UTI (urinary tract infection): Status: Acute (3) Hematuria: Status: Acute (4) Pyelonephritis: Status: Acute (5) Acute CHF: Status: Acute (6) Atrial fibrillation with rapid ventricular response: Status: Acute Plan 81-year-old with past medical history of AFib on Coumadin presents to the hospital with hemorrhage # Afib w RvR Better controlled after starting IV Cardizem drip Secondary to fluid overload Wean down Cardizem drip as tolerated Increase metoprolol to 150 mg , did Hold for hematuria Keep on telemetry # acute on chronic diastolic CHF exacerbation Secondary to fluid overload IV Lasix Monitor intake and output Wean down oxygen as tolerated # hematuria likely secondary to hemorrhage from bladder mass, seems to be improving received vitamin K to reverse INR hold aspirin urology consult to do intervention today Monitor H&H # bladder mass # hydroureteronephrosis likely secondary to mass, to be evaluated by Urology, no Turner I per CT findings urology consulted for possible evaluation # UTI with possible pyelonephritis asymmetric right perinephric stranding afebrile, mild leukocytosis on IV antibiotics, to finish total of 7-10 days of antibiotics negative urine and blood cultures # LLE cellulitis Two recent open wounds with surrounding erythema continue IV doxycycline on admission to ceftriaxone Daily dressing surgery input appreciated, Hydrea fair, compression, to follow with outpatient upon discharge Get left lower leg Dopplers if not improving # acute blood loss anemia Hemoglobin dropped to 9.8 Consider transfusion if drops below 8 Monitor H and H # AFib continue rate control hold Coumadin for hematuria # diabetes low-dose sliding scale insulin diabetic diet DVT prophylaxis: SCDs patient will need overnight hospital stay to continue management for AFib RVR, CHF exacerbation, hematuria, by the nephritis, cellulitis to prevent possible decompensation into sepsis and renal failure Quality Stroke Does the patient have a stroke diagnosis?: No VTE Prior VTE?: No VTE Risk Level:: Medical - moderate - high VTE Device Contraindication: N/A - Device Ordered VTE Drug Contraindication: Treatment Not Indicated
--- NOTE | 2022-07-01 12:11 | P.CDIC_ITS ---
CDI Concurrent Query Documentation Clarification: PHYSICIAN'S DOCUMENTATION REQUEST Date of Query: 07/01/22 1211 Patient Name: Belen Brady Admit Date: 06/27/22 Dear Doctor, A review of the medical record indicates additional documentation may be indicated. Please review below and update the documentation accordingly. Clinical Indicators: Risk Factors/Clinical Indicators/Treatments Per surgical note 06/29/22: two dime size fleshy wounds on lateral leg with some mild surrounding cellulitis. some murky drainage but no undrained collections noted. areas are tender Based on the above, could you please provide, in the Progress Notes, further information regarding the ulcer/wound: * For a non-pressure ulcer, please indicate the depth/severity: * Limited to the breakdown of skin * With fat layer exposed * With necrosis of muscle * With necrosis of bone * Other * Unable to determine *Source: National Pressure Ulcer Advisory Panel (NPUAP) Use of terms such as suspected, likely, concern for, or probable (associated with a specific diagnosis that is being evaluated, monitored, or treated as if it exists) are acceptable and can be coded in the inpatient setting, when documented at the time of discharge. Thank you, Nicki Way RN Extension: [phone] Please use your independent medical judgment in providing your response. THIS QUERY IS PART OF THE PERMANENT MEDICAL RECORD Provider Response: Other Other Diagnosis: other
[2022-07-01 15:57] LABS: Glucose, Whole Blood 61 mg/dL (60-115)
[2022-07-01] MEDS: Dextrose 50 % 25 GM/50 ML SYRINGE IVPUSH (16:35)
[2022-07-01 17:00] LABS: Glucose, Whole Blood 105 mg/dL (60-115)
--- NOTE | 2022-07-01 17:46 | MHC.SHP ---
Pre-Procedural Eval Section A Date of Service: 07/01/22 The patient is an INPATIENT: Yes Changes since office visit: No Cold of Flu in the past 2 weeks, No New Medical Problems, No Changes in Medication and No Patient answered all questions The History & Physical has been completed within 30 days and I have reviewed it.: Yes Section B Chief Complaint: bladder hemorrhage, mass Details of Present Illness: Cysto clot evacuation, bilateral retrogrades Allergies: Allergies Allergy/AdvReac Type Severity Reaction Status Date / Time No Known Allergies Allergy Verified 06/26/22 13:07 [No Known Allergies*] Review of Systems Sugical H&P ROS: Negative: Constitution, Cardiovascular, Respiratory, Neurological, Psychiatric, Hem-Onc, Allergic/Immunologic, Gastrointestinal, Genitourinary, Musculoskeletal, Integumentary, Endocrine and Eyes/Ears/Nose/Throat Exam Surgical H&P Exam: Normal: HEENT, Normal: Heart, Normal: Lungs, Normal: Extremities, Normal: Abdomen, Normal: Skin and Normal: Neurological Plan Diagnosis/Plan: Unchanged I have reviewed the history and physical and performed a pertinent physical examination on my patient. No changes have occurred unless specified.
--- NOTE | 2022-07-01 18:15 | W.PM.OPN ---
Operative Note Operative Note Date of Service: 07/01/22 Narrative: PreOperative Diagnosis: hematuria, With bilateral hydro ureteral nephrosis Post Operative Diagnosis: bilateral hydroureteronephrosis Procedure: cystoscopy, bilateral retrograde, clot evacuation Surgeon: Dr Keith Sharma Anesthesia: sedation Indications for procedure: hematuria with imaging showing bilateral hydroureteronephrosis Procedure: After informed consent was verified the patient was brought to the operating room and placed in a supine position. Anesthesia was administered per protocol. she was placed in modified dorsal lithotomy position and prepped and draped in sterile fashion. Safety pause time-out was performed. Twenty-two Georgian cystoscope inserted per bladder. Bladder examined. Suprapubic tube in place. Irritation of posterior wall however no visible tumors. Marked trabeculation with cellules throughout the bladder and developing diverticula. Retrograde examination performed bilaterally. Mild to moderate hydroureteronephrosis down to the bladder. There was prompt emptying of contrast dye after injection showing no obstruction to flow. Bladder was emptied. She tolerated the procedure well. Was extubated in the operating room. Transferred in stable condition to the recovery area. Pathology: [] Drains: []
--- NOTE | 2022-07-01 18:30 | P.CONAN_ITS ---
[facility] Active Problems Active Problems: All Active Problems (Updated 07/01/22 @ 12:19 by Sabine Szymanski MD) Atrial fibrillation with rapid ventricular response (Acute) Acute CHF (Acute) Leg wound, left (Acute) Cellulitis (Acute) UTI (urinary tract infection) (Acute) Hematuria (Acute) Varicose vein of leg (Acute) Hydroureteronephrosis (Acute) Pyelonephritis (Acute) Bladder mass (Acute) Preop cardiovascular exam (Acute) Osteoarthritis of right hip (Acute) Current use of anticoagulant therapy (Acute) Recurrent UTI (Acute) Diabetic neuropathy associated with diabetes mellitus due to underlying condition (Acute) Hypotonic neurogenic bladder (Acute) CAD (coronary artery disease) (Acute) CKD (chronic kidney disease) (Acute) Hypertension (Acute) Diabetes (Acute) Hypothyroidism (Acute) Urinary incontinence (Acute) Congestive heart failure (Acute) PAF (paroxysmal atrial fibrillation) (Acute) Atrial fibrillation (Acute) Shortness of breath (Acute) COVID-19 virus infection (Acute) DOROTHY (acute kidney injury) (Acute) Atrial fibrillation (Acute) Fungal infection (Acute) Past Medical History Medical History Atrial fibrillation CAD (coronary artery disease) CKD (chronic kidney disease) Congestive heart failure Diabetes Hypertension Hypothyroidism Hypotonic neurogenic bladder PAF (paroxysmal atrial fibrillation) Urinary incontinence Family History Family History Father Hx of angina pectoris Myocardial infarction Mother Ovarian cancer Stomach cancer Maternal Grandfather Hardening of the arteries of the heart Family history of problems with anesthesia: No Surgical History Surgical History H/O heart artery stent H/O nasal polypectomy History of tonsillectomy and adenoidectomy History of tubal ligation Hx of cholecystectomy History of Problems with Anesthesia: No Social History Social History Household Members: Children Household Members Other:: daughter Housing: House Do you presently have visiting nurse or other home services: No Alcohol intake: never Patient Tobacco Use Status: Never used Tobacco Second Hand Smoke Exposure: No service: No Current occupational status: retired [employer] Allergies Allergy/AdvReac Type Severity Reaction Status Date / Time No Known Allergies Allergy Verified 06/26/22 13:07 [No Known Allergies*] Active Medications: Current Medications Acetaminophen (Acetaminophen 325 Mg Tablet) 650 mg PO Q6H PRN PRN Reason: Pain, Mild (Pain Scale 1-3) Last Admin: 07/01/22 09:49 Dose: 650 mg Atorvastatin Calcium (Atorvastatin Calcium 10 Mg Tablet) 10 mg PO BEDTIME SUN Last Admin: 06/30/22 21:58 Dose: 10 mg Dextrose (Dextrose 50 % 25 Gm/50 Ml Syringe) 25 gm IVPUSH Q15M PRN; Protocol PRN Reason: per Hypoglycemia Standing Ord. Last Admin: 07/01/22 16:35 Dose: 12.5 gm Docusate Sodium (Docusate Sodium 100 Mg Capsule) 100 mg PO DAILY PRN PRN Reason: Constipation Furosemide (Furosemide 40 Mg/4 Ml Vial) 40 mg IVPUSH BID@0900,1800 SUN; Protocol Last Admin: 07/01/22 09:44 Dose: 40 mg Glucose (Glucose Gel 15 Gm Gel..Gram.) 15 gm PO Q15M PRN; Protocol PRN Reason: per Hypoglycemia Standing Ord. Ceftriaxone Sodium 1 gm/ (Sodium Chloride) 50 mls @ 100 mls/hr IV Q24H [facility] Last Infusion: 06/30/22 22:30 Dose: Infused Doxycycline Hyclate 100 mg/ (Sodium Chloride) 250 mls @ 166.67 mls/hr IV Q12H [facility] Last Infusion: 07/01/22 11:42 Dose: Infused Diltiazem HCl 125 mg/ Sodium (Chloride) 125 mls @ 0 mls/hr IVCONT .Q0M SUN; Protocol Last Titration: 07/01/22 09:43 Dose: 0 mg/hr, 0 mls/hr Insulin Glargine (Insulin Glargine,Hum.Rec.Anlog 100 Unit/Ml 10 Ml Vial) 40 unit SUBCUT BEDTIME SUN Last Admin: 06/30/22 22:01 Dose: 40 unit Insulin Human Lispro (Insulin Lispro 100 Unit/Ml 3 Ml Vial) 0 unit SUBCUT QIDACHS [facility]; Protocol Last Admin: 07/01/22 16:19 Dose: Not Given Levothyroxine Sodium (Levothyroxine Sodium 25 Mcg Tablet) 25 mcg PO 0630 SUN Last Admin: 07/01/22 06:17 Dose: Not Given Metoprolol Succinate (Metoprolol Succinate Er 50 Mg Tab.Er.24h) 150 mg PO DAILY [facility]; Protocol Morphine Sulfate (Morphine Sulfate 4 Mg/Ml Cartridge) 4 mg IVPUSH Q4H PRN; Protocol PRN Reason: Pain, Severe (Pain Scale 7-10) Last Admin: 07/01/22 11:36 Dose: 4 mg Ondansetron HCl (Ondansetron Hcl 4 Mg/2 Ml Vial) 4 mg IVPUSH Q8H PRN PRN Reason: Nausea and Vomiting Oxybutynin Chloride (Oxybutynin Chloride Er 5 Mg Tab.Er.24) 10 mg PO DAILY [facility] Last Admin: 07/01/22 09:41 Dose: 10 mg Sodium Chloride (0.9 % Sodium Chloride Flush 3 Ml Syringe) 3 ml IVFLUSH QSHIFT [facility] Last Admin: 07/01/22 17:25 Dose: Not Given Home Medications Medication Instructions Recorded Confirmed Last Taken Type levothyroxine 25 mcg tablet 25 mcg PO DAILY 09/05/20 06/27/22 Unknown History oxybutynin chloride 10 mg 10 mg PO DAILY 09/05/20 06/27/22 Unknown History tablet,extended release 24 hr insulin glargine 100 unit/mL (3 40 unit subcut BEDTIME 10/14/20 06/27/22 Unknown History mL) subcutaneous pen (Lantus Solostar U-100 Insulin) aspirin 81 mg tablet,delayed 81 mg PO DAILY 09/11/21 06/27/22 Unknown History release vit 1 cap PO DAILY 09/11/21 06/27/22 Unknown History C,E,zinc,Io-izaqq-1-lutein-zeaxanthin 250 mg-2.5 mg-0.5 mg capsule pen needle, diabetic 32 gauge x #50 ea 12/31/21 06/27/22 Unknown History (BD Cathy 2nd Gen Pen Needle) atorvastatin 10 mg tablet 10 mg PO BEDTIME 02/06/22 06/27/22 Unknown History ciprofloxacin HCl 500 mg tablet 1 tab PO DAILY PRN Catheter 06/27/22 06/27/22 Unknown History Insertion Exam Exam Date and Time: July 01, 2022 1830 Height,Weight and Vital Signs: Height 5 ft 5 in Weight 90.718 kg Last Vital Signs Temp 98.2 F 07/01/22 16:05 Pulse 92 07/01/22 17:20 Resp 20 07/01/22 17:20 BP 113/73 07/01/22 17:20 Pulse Ox 93 07/01/22 17:20 O2 Del Method 07/01/22 17:20 O2 Flow Rate 3 07/01/22 17:20 Pertinent Lab Results Pertinent Lab Results: Laboratory Tests 06/27/22 06/27/22 06/27/22 14:07 14:07 14:07 WBC 11.2 H RBC 4.61 Hgb 12.7 Hct 39.3 MCV 85.2 MCH 27.5 MCHC 32.3 RDW 15.8 Plt Count 279 MPV 9.0 L Immature Gran % (Auto) 0.5 H Neut % (Auto) 72.1 Lymph % (Auto) 13.5 L Coal % (Auto) 12.3 H Eos % (Auto) 1.1 Baso % (Auto) 0.5 Lymph # (Auto) 1.5 Coal # (Auto) 1.4 H Eos # (Auto) 0.1 Baso # (Auto) 0.1 Abs Immat Gran (auto) 0.06 H Absolute Neuts (auto) 8.1 Absolute Nucleated RBC 0.000 Nucleated RBC % (auto) 0.0 Smear Tech's Comments PT 35.5 H INR 3.0 H APTT 38.8 H Sodium 143 Potassium 3.8 Chloride 103 Carbon Dioxide 25 Anion Gap 19 BUN 38 H Creatinine 1.86 H Estim Creat Clear Calc 26.4 Estimated GFR 26 POC Glucose Random Glucose 139 H Lactic Acid Calcium 8.5 Magnesium 2.1 Total Bilirubin 0.7 AST 30 D ALT 18 Alkaline Phosphatase 137 H B-Natriuretic Peptide Total Protein 8.0 Albumin 3.6 Urine Color Urine Appearance Urine pH Ur Specific [place] Urine Protein Urine Glucose (UA) Urine Ketones Urine Blood Urine Nitrite Ur Leukocyte Esterase Urine RBC Urine WBC Ur Squamous Epith Cells Urine Bacteria Hyaline Casts COVID-19 (JONEL) COVID-19 Clin Com 06/27/22 06/27/22 06/27/22 20:05 20:06 20:42 WBC RBC Hgb Hct MCV MCH MCHC RDW Plt Count MPV Immature Gran % (Auto) Neut % (Auto) Lymph % (Auto) Coal % (Auto) Eos % (Auto) Baso % (Auto) Lymph # (Auto) Coal # (Auto) Eos # (Auto) Baso # (Auto) Abs Immat Gran (auto) Absolute Neuts (auto) Absolute Nucleated RBC Nucleated RBC % (auto) Smear Tech's Comments PT INR APTT Sodium Potassium Chloride Carbon Dioxide Anion Gap BUN Creatinine Estim Creat Clear Calc Estimated GFR POC Glucose Random Glucose Lactic Acid 1.2 Calcium Magnesium Total Bilirubin AST ALT Alkaline Phosphatase B-Natriuretic Peptide Total Protein Albumin Urine Color RED Urine Appearance Cloudy Urine pH 8.5 H Ur Specific [place] 1.015 Urine Protein 300 (3+) H Urine Glucose (UA) 100 H Urine Ketones Negative Urine Blood Large (3+) H Urine Nitrite Positive H Ur Leukocyte Esterase Moderate (2+) H Urine RBC >20 H Urine WBC 6-10 H Ur Squamous Epith Cells 0-2 Urine Bacteria None Seen Hyaline Casts 0-2 COVID-19 (JONEL) Negative COVID-19 [facility] See Note 06/27/22 06/28/22 06/28/22 23:31 04:02 04:02 WBC 10.8 RBC 3.99 L Hgb 11.0 L Hct 34.7 L MCV 87.0 MCH 27.6 MCHC 31.7 RDW 15.9 Plt Count 241 MPV 9.2 L Immature Gran % (Auto) 0.7 H Neut % (Auto) 62.6 Lymph % (Auto) 19.7 L Coal % (Auto) 14.1 H Eos % (Auto) 2.5 Baso % (Auto) 0.4 Lymph # (Auto) 2.1 Coal # (Auto) 1.5 H Eos # (Auto) 0.3 Baso # (Auto) 0.0 Abs Immat Gran (auto) 0.08 H Absolute Neuts (auto) 6.7 Absolute Nucleated RBC 0.000 Nucleated RBC % (auto) 0.0 Smear Tech's Comments VERIFIED PT 21.3 H INR 1.8 H APTT Sodium Potassium Chloride Carbon Dioxide Anion Gap BUN Creatinine Estim Creat Clear Calc Estimated GFR POC Glucose 181 H Random Glucose Lactic Acid Calcium Magnesium Total Bilirubin AST ALT Alkaline Phosphatase B-Natriuretic Peptide Total Protein Albumin Urine Color Urine Appearance Urine pH Ur Specific [place] Urine Protein Urine Glucose (UA) Urine Ketones Urine Blood Urine Nitrite Ur Leukocyte Esterase Urine RBC Urine WBC Ur Squamous Epith Cells Urine Bacteria Hyaline Casts COVID-19 (JONEL) COVID-19 Clin Com 06/28/22 06/28/22 06/28/22 04:02 07:22 08:33 WBC RBC Hgb Hct MCV MCH MCHC RDW Plt Count MPV Immature Gran % (Auto) Neut % (Auto) Lymph % (Auto) Coal % (Auto) Eos % (Auto) Baso % (Auto) Lymph # (Auto) Coal # (Auto) Eos # (Auto) Baso # (Auto) Abs Immat Gran (auto) Absolute Neuts (auto) Absolute Nucleated RBC Nucleated RBC % (auto) Smear Tech's Comments PT INR APTT Sodium 141 Potassium 4.5 Chloride 106 Carbon Dioxide 23 Anion Gap 17 BUN 32 H Creatinine 1.63 H Estim Creat Clear Calc 30.1 Estimated GFR 30 POC Glucose 180 H Random Glucose 140 H Lactic Acid Calcium 8.0 L Magnesium Total Bilirubin AST ALT Alkaline Phosphatase B-Natriuretic Peptide 615 H Total Protein Albumin Urine Color Urine Appearance Urine pH Ur Specific [place] Urine Protein Urine Glucose (UA) Urine Ketones Urine Blood Urine Nitrite Ur Leukocyte Esterase Urine RBC Urine WBC Ur Squamous Epith Cells Urine Bacteria Hyaline Casts COVID-19 (JONEL) COVID-19 [facility] 06/28/22 06/28/22 06/28/22 12:02 16:15 18:57 WBC RBC Hgb Hct MCV MCH MCHC RDW Plt Count MPV Immature Gran % (Auto) Neut % (Auto) Lymph % (Auto) Coal % (Auto) Eos % (Auto) Baso % (Auto) Lymph # (Auto) Coal # (Auto) Eos # (Auto) Baso # (Auto) Abs Immat Gran (auto) Absolute Neuts (auto) Absolute Nucleated RBC Nucleated RBC % (auto) Smear Tech's Comments PT INR APTT Sodium Potassium Chloride Carbon Dioxide Anion Gap BUN Creatinine Estim Creat Clear Calc Estimated GFR POC Glucose 125 H 163 H 189 H Random Glucose Lactic Acid Calcium Magnesium Total Bilirubin AST ALT Alkaline Phosphatase B-Natriuretic Peptide Total Protein Albumin Urine Color Urine Appearance Urine pH Ur Specific [place] Urine Protein Urine Glucose (UA) Urine Ketones Urine Blood Urine Nitrite Ur Leukocyte Esterase Urine RBC Urine WBC Ur Squamous Epith Cells Urine Bacteria Hyaline Casts COVID-19 (JONEL) COVID-19 [facility] 06/29/22 06/29/22 06/29/22 06:00 06:00 06:00 WBC 8.4 RBC 3.68 L Hgb 10.1 L Hct 32.2 L MCV 87.5 MCH 27.4 MCHC 31.4 RDW 15.4 Plt Count 230 MPV 9.0 L Immature Gran % (Auto) Neut % (Auto) Lymph % (Auto) Coal % (Auto) Eos % (Auto) Baso % (Auto) Lymph # (Auto) Coal # (Auto) Eos # (Auto) Baso # (Auto) Abs Immat Gran (auto) Absolute Neuts (auto) Absolute Nucleated RBC 0.000 Nucleated RBC % (auto) 0.0 Smear Tech's Comments PT 13.9 H INR 1.2 H APTT Sodium 140 Potassium 4.1 Chloride 105 Carbon Dioxide 27 Anion Gap 12 BUN 28 H Creatinine 1.46 H Estim Creat Clear Calc 33.6 Estimated GFR 34 POC Glucose Random Glucose 109 Lactic Acid Calcium 7.9 L Magnesium Total Bilirubin AST ALT Alkaline Phosphatase B-Natriuretic Peptide Total Protein Albumin Urine Color Urine Appearance Urine pH Ur Specific [place] Urine Protein Urine Glucose (UA) Urine Ketones Urine Blood Urine Nitrite Ur Leukocyte Esterase Urine RBC Urine WBC Ur Squamous Epith Cells Urine Bacteria Hyaline Casts COVID-19 (JONEL) COVID-19 [facility] 06/29/22 06/29/22 06/29/22 08:20 10:30 15:24 WBC RBC Hgb Hct MCV MCH MCHC RDW Plt Count MPV Immature Gran % (Auto) Neut % (Auto) Lymph % (Auto) Coal % (Auto) Eos % (Auto) Baso % (Auto) Lymph # (Auto) Coal # (Auto) Eos # (Auto) Baso # (Auto) Abs Immat Gran (auto) Absolute Neuts (auto) Absolute Nucleated RBC Nucleated RBC % (auto) Smear Tech's Comments PT INR APTT Sodium Potassium Chloride Carbon Dioxide Anion Gap BUN Creatinine Estim Creat Clear Calc Estimated GFR POC Glucose 99 137 H 126 H Random Glucose Lactic Acid Calcium Magnesium Total Bilirubin AST ALT Alkaline Phosphatase B-Natriuretic Peptide Total Protein Albumin Urine Color Urine Appearance Urine pH Ur Specific [place] Urine Protein Urine Glucose (UA) Urine Ketones Urine Blood Urine Nitrite Ur Leukocyte Esterase Urine RBC Urine WBC Ur Squamous Epith Cells Urine Bacteria Hyaline Casts COVID-19 (JONEL) COVID-19 [facility] 06/29/22 06/30/22 06/30/22 19:48 05:05 05:05 WBC 9.1 RBC 3.88 L Hgb 10.7 L Hct 34.4 L MCV 88.7 MCH 27.6 MCHC 31.1 RDW 15.7 Plt Count 281 MPV 9.7 Immature Gran % (Auto) Neut % (Auto) Lymph % (Auto) Coal % (Auto) Eos % (Auto) Baso % (Auto) Lymph # (Auto) Coal # (Auto) Eos # (Auto) Baso # (Auto) Abs Immat Gran (auto) Absolute Neuts (auto) Absolute Nucleated RBC 0.000 Nucleated RBC % (auto) 0.0 Smear Tech's Comments PT 12.9 INR 1.1 APTT Sodium Potassium Chloride Carbon Dioxide Anion Gap BUN Creatinine Estim Creat Clear Calc Estimated GFR POC Glucose 156 H Random Glucose Lactic Acid Calcium Magnesium Total Bilirubin AST ALT Alkaline Phosphatase B-Natriuretic Peptide Total Protein Albumin Urine Color Urine Appearance Urine pH Ur Specific [place] Urine Protein Urine Glucose (UA) Urine Ketones Urine Blood Urine Nitrite Ur Leukocyte Esterase Urine RBC Urine WBC Ur Squamous Epith Cells Urine Bacteria Hyaline Casts COVID-19 (JONEL) COVID-19 [facility] 06/30/22 06/30/22 06/30/22 05:05 07:19 11:27 WBC RBC Hgb Hct MCV MCH MCHC RDW Plt Count MPV Immature Gran % (Auto) Neut % (Auto) Lymph % (Auto) Coal % (Auto) Eos % (Auto) Baso % (Auto) Lymph # (Auto) Coal # (Auto) Eos # (Auto) Baso # (Auto) Abs Immat Gran (auto) Absolute Neuts (auto) Absolute Nucleated RBC Nucleated RBC % (auto) Smear Tech's Comments PT INR APTT Sodium 138 Potassium 4.3 Chloride 107 Carbon Dioxide 18 L Anion Gap 17 BUN 29 H Creatinine 1.48 H Estim Creat Clear Calc 33.2 Estimated GFR 34 POC Glucose 127 H 111 Random Glucose 131 H Lactic Acid Calcium 7.8 L Magnesium Total Bilirubin AST ALT Alkaline Phosphatase B-Natriuretic Peptide Total Protein Albumin Urine Color Urine Appearance Urine pH Ur Specific [place] Urine Protein Urine Glucose (UA) Urine Ketones Urine Blood Urine Nitrite Ur Leukocyte Esterase Urine RBC Urine WBC Ur Squamous Epith Cells Urine Bacteria Hyaline Casts COVID-19 (JONEL) COVID-19 [facility] 06/30/22 06/30/22 06/30/22 14:48 17:53 19:40 WBC RBC Hgb Hct MCV MCH MCHC RDW Plt Count MPV Immature Gran % (Auto) Neut % (Auto) Lymph % (Auto) Coal % (Auto) Eos % (Auto) Baso % (Auto) Lymph # (Auto) Coal # (Auto) Eos # (Auto) Baso # (Auto) Abs Immat Gran (auto) Absolute Neuts (auto) Absolute Nucleated RBC Nucleated RBC % (auto) Smear Tech's Comments PT INR APTT Sodium Potassium Chloride Carbon Dioxide Anion Gap BUN Creatinine Estim Creat Clear Calc Estimated GFR POC Glucose 105 96 145 H Random Glucose Lactic Acid Calcium Magnesium Total Bilirubin AST ALT Alkaline Phosphatase B-Natriuretic Peptide Total Protein Albumin Urine Color Urine Appearance Urine pH Ur Specific [place] Urine Protein Urine Glucose (UA) Urine Ketones Urine Blood Urine Nitrite Ur Leukocyte Esterase Urine RBC Urine WBC Ur Squamous Epith Cells Urine Bacteria Hyaline Casts COVID-19 (JONEL) COVID-19 [facility] 07/01/22 07/01/22 07/01/22 05:48 05:48 07:35 WBC 9.7 RBC 3.52 L Hgb 9.8 L Hct 30.1 L MCV 85.5 MCH 27.8 MCHC 32.6 RDW 15.6 Plt Count 277 MPV 8.7 L Immature Gran % (Auto) Neut % (Auto) Lymph % (Auto) Coal % (Auto) Eos % (Auto) Baso % (Auto) Lymph # (Auto) Coal # (Auto) Eos # (Auto) Baso # (Auto) Abs Immat Gran (auto) Absolute Neuts (auto) Absolute Nucleated RBC 0.000 Nucleated RBC % (auto) 0.0 Smear Tech's Comments PT INR APTT Sodium 139 Potassium 3.3 D Chloride 106 Carbon Dioxide 21 L Anion Gap 15 BUN 22 H Creatinine 1.36 Estim Creat Clear Calc 36.0 Estimated GFR 37 POC Glucose 77 Random Glucose 76 Lactic Acid Calcium 8.0 L Magnesium Total Bilirubin AST ALT Alkaline Phosphatase B-Natriuretic Peptide Total Protein Albumin Urine Color Urine Appearance Urine pH Ur Specific [place] Urine Protein Urine Glucose (UA) Urine Ketones Urine Blood Urine Nitrite Ur Leukocyte Esterase Urine RBC Urine WBC Ur Squamous Epith Cells Urine Bacteria Hyaline Casts COVID-19 (JONEL) COVID-19 [facility] 07/01/22 07/01/22 07/01/22 11:09 15:46 16:49 WBC RBC Hgb Hct MCV MCH MCHC RDW Plt Count MPV Immature Gran % (Auto) Neut % (Auto) Lymph % (Auto) Coal % (Auto) Eos % (Auto) Baso % (Auto) Lymph # (Auto) Coal # (Auto) Eos # (Auto) Baso # (Auto) Abs Immat Gran (auto) Absolute Neuts (auto) Absolute Nucleated RBC Nucleated RBC % (auto) Smear Tech's Comments PT INR APTT Sodium Potassium Chloride Carbon Dioxide Anion Gap BUN Creatinine Estim Creat Clear Calc Estimated GFR POC Glucose 79 61 105 Random Glucose Lactic Acid Calcium Magnesium Total Bilirubin AST ALT Alkaline Phosphatase B-Natriuretic Peptide Total Protein Albumin Urine Color Urine Appearance Urine pH Ur Specific [place] Urine Protein Urine Glucose (UA) Urine Ketones Urine Blood Urine Nitrite Ur Leukocyte Esterase Urine RBC Urine WBC Ur Squamous Epith Cells Urine Bacteria Hyaline Casts COVID-19 (JONEL) COVID-19 Clin Com Airway Heart: RRR Lungs: CTA Assessment and Plan Final Anesthetic Review Family History of Problems with Anesthesia: No History of Problems with Anesthesia: No NPO: Yes ASA Class: III and Emergency Final Preanesthetic Review: Meds/Allgs Chart Reviewed, Consent Obtained/Reviewed and Anes Risks/Benef Reviewed Patient Risk: Intermediate Procedure Risk: Low Anesthetic Plan Anesthetic Plan: MAC: Disposition: Standard PACU
[2022-07-01 19:04] LABS: Glucose, Whole Blood 86 mg/dL (60-115)
[2022-07-01 20:10] LABS: Glucose, Whole Blood 112 mg/dL (60-115)
[2022-07-01] MEDS: Insulin Glargine,Hum.rec.anlog 100 UNIT/ML 10 ML VIAL 40 UNIT SUBCUT (20:16)
[2022-07-01] MEDS: Atorvastatin Calcium 10 MG TABLET PO (20:16)
[2022-07-01] MEDS: cefTRIAXone sodium 1 GM in 0.9 % Sodium Chloride 50 ML IV (22:05)
[2022-07-02] VITALS (8 sets, daily range): BP systolic 117–147; BP diastolic 47–87; PULSE 81–107; RESP 16–18; TEMP 36.1–36.6; O2SAT 89–97
[2022-07-02] MEDS: Doxycycline Hyclate 100 MG in 0.9 % Sodium Chloride 250 ML 166.67 MG IV ×3 (00:06→22:03)
[2022-07-02] MEDS: 0.9 % Sodium Chloride Flush 3 ML SYRINGE IVFLUSH ×4 (00:12→23:48)
[2022-07-02] MEDS: Morphine Sulfate 4 MG/ML CARTRIDGE IVPUSH (01:46)
[2022-07-02] MEDS: Levothyroxine Sodium 25 MCG TABLET PO (05:53)
[2022-07-02 06:37] LABS: Hematocrit 31.4 % (37.0-47.0); Mean Corpuscular HGB Conc 31.8 g/dl (31.0-35.0); Mean Corpuscular Hemoglobin 27.7 pg (27.0-33.0); Mean Platelet Volume 9.2 fL (9.4-12.3); Platelet Count 300 X10*3/uL (160-400); Red Blood Count 3.61 X10*6/uL (4.20-5.50); Red Cell Distribution Width 15.9 % (11.0-16.0); White Blood Count 8.9 X10*3/uL (4.8-10.8)
[2022-07-02 06:50] LABS: Anion Gap 14 (12-20); Blood Urea Nitrogen 24 mg/dL (9-16); Calcium 8.2 mg/dL (8.4-10.2); Carbon Dioxide 24 mmol/L (22-29); Chloride 106 mmol/L (96-108); Creatinine Clr Calc Pharmacy 36.3; Estimated Glomerular Filt Rate 38; Potassium 3.8 mmol/L (3.3-5.1); Sodium 140 mmol/L (135-145)
--- NOTE | 2022-07-02 07:02 | HO.POSTANES ---
Post Anesthesia Evaluation Post Anesthesia Evaluation Vital Signs: Vital Signs Temp Pulse Resp BP Pulse Ox O2 Del Method O2 Flow Rate 07/02/22 03:11 97.8 F 88 16 117/47 L 93 Nasal Cannula 07/01/22 23:47 97.4 F 97 16 108/53 L 94 Nasal Cannula 2 07/01/22 21:57 97.2 F 94 20 128/64 95 Room Air 07/01/22 19:41 97.2 F 89 17 123/68 93 Nasal Cannula 4 Anesthesia: Monitored Mental Status: Awake Pain Control: Satisfactory Nausea/Vomiting: None Hydration: Adequate Anesthesia-Related Issues: No Anes. Related Issues
[2022-07-02 07:04] LABS: Glucose Random 51 mg/dL (60-115)
[2022-07-02 07:30] LABS: Glucose, Whole Blood 39 mg/dL (60-115)
[2022-07-02] MEDS: Dextrose 50 % 25 GM/50 ML SYRINGE IVPUSH (07:41)
[2022-07-02] MEDS: Furosemide 40 MG/4 ML VIAL IVPUSH ×2 (07:42→18:30)
[2022-07-02] MEDS: Metoprolol Succinate ER 50 MG TAB.ER.24H 150 MG PO (07:42)
[2022-07-02 07:58] LABS: Glucose, Whole Blood 172 mg/dL (60-115)
--- NOTE | 2022-07-02 08:08 | P.CDIC_ITS ---
[facility]I Concurrent Query Documentation Clarification: PHYSICIAN'S DOCUMENTATION REQUEST Date of Query: 07/02/22808 Patient Name: Belen Brady Admit Date: 06/27/22 Dear Doctor, A review of the medical record indicates additional documentation may be needed. Please review below and update the documentation accordingly. Risk Factors/Clinical Indicators/Treatments presented with bleeding from suprapubic catheter per ED note, Vitamin K given to reverse INR of 3.0 per H&P: hematuria, urology following Based on the above, could you clarify in the Progress Notes the appropriate diagnosis, if significant, that supports the above abnormalities and additional evaluation, monitoring, and/or treatment rendered: * Supratherapeutic INR and Hematuria due to Coumadin * Supratherapeutic INR due to Coumadin * Hematuria due to Coumadin * Other (please specify) * Unable to determine Use of terms such as suspected, likely, concern for, or probable (associated with a specific diagnosis that is being evaluated, monitored, or treated as if it exists) are acceptable and can be coded in the inpatient setting, when documented at the time of discharge. Thank you, Nicki Way RN Extension: [phone] Please use your independent medical judgment in providing your response. THIS QUERY IS PART OF THE PERMANENT MEDICAL RECORD Provider Response: Other Other Diagnosis: Hematuria 2/2 being on warfarin
--- NOTE | 2022-07-02 08:18 | P.CDIC_ITS ---
[facility]I Concurrent Query Documentation Clarification: PHYSICIAN'S DOCUMENTATION REQUEST Date of Query: 07/02/22817 Patient Name: Belen Brady Admit Date: 06/27/22 Dear Doctor, A review of the medical record indicates additional documentation may be needed. Please review below and update the documentation accordingly. Clinical Indicators: The following clinical information was noted in the record: Risk Factors/Clinical Indicators/Treatments BUN 38 Creatinine 1.86 Est GFR 30 PMH CKD Please clarify which of the following accurately represents the patient's renal status: * CKD, please provide stage - see criteria * Other (please specify) * Unable to determine Criteria for DOROTHY* Stages of Chronic Kidney Disease* 1. Increase in serum creatinine by ? 0.3 mg/dL Level Description GFR (?26.5 micromol/L) within 48 hours, or G1 Normal or High > 90 2. Increase in serum creatinine to ?1.5 times baseline, G2 Mildly decreased 60 ? 89 which is known or presumed to have occurred within 7 days, or G3a Mildly to moderately decreased 45 ? 59 3. Urine volume <0.5 mL/kg/hour for six hours G3b Moderately to severely decreased 30 - 44 G4 Severely decreased 15 ? 29 G5 Kidney failure < 15 *Source: Kidney Disease: Improving Global Outcomes (KDIGO) 2012 Use of terms such as suspected, likely, concern for, or probable (associated with a specific diagnosis that is being evaluated, monitored, or treated as if it exists) are acceptable and can be coded in the inpatient setting, when documented at the time of discharge. Thank you, Nicki Way RN Extension: [phone] Please use your independent medical judgment in providing your response. THIS QUERY IS PART OF THE PERMANENT MEDICAL RECORD Provider Response: CKD Stage 3
--- NOTE | 2022-07-02 10:28 | HO.PM.IMPN ---
Subjective Subjective Date of Service: 07/02/22 Interval History: the patient was seen and evaluated this morning Laying in bed, feels tired Urine cleared this morning after urological intervention Heart rate better control Still on oxygen supplement No reported other overnight events. Systemic review: No fever, chills or weakness No chest pain, palpitation No shortness of breath or coughing No abdominal pain, nausea or vomiting hematuria resolving left lower extremity wounds Physical Exam Vital Signs: Vital Signs: Last Vital Signs Temp 97.6 F 07/02/22 06:44 Pulse 81 07/02/22 08:42 Resp 18 07/02/22 06:44 BP 137/82 07/02/22 08:42 Pulse Ox 96 07/02/22 08:42 O2 Del Method 07/02/22 06:44 O2 Flow Rate 2 07/01/22 23:47 BMI result Body Mass Index 33.3 Const: Other: Constitutional : Alert, oriented, not in distress Neck : Normal inspection, Supple Cardiovascular : Irregular irregular, no JVP, no lower extremity edema Respiratory : fair bilateral air entry, basal fine crackles, wheezes or rhonchi Gastrointestinal: soft, lax, Normal bowel sounds, Non tender Skin : Warm, Dry, left lower extremity 2 open wounds with improvement of surrounding erythema and tenderness Urology: suprapubic catheter in place, clearing hematuria urine Neurological : Alert & oriented x3, No focal deficit , CN 2-12 within normal Objective Data Active Medications Acetaminophen (Acetaminophen 325 Mg Tablet) 650 mg PO Q6H PRN PRN Reason: Pain, Mild (Pain Scale 1-3) Last Admin: 07/01/22 22:37 Dose: 650 mg Documented By: ABDIAS Atorvastatin Calcium (Atorvastatin Calcium 10 Mg Tablet) 10 mg PO BEDTIME [facility] Last Admin: 07/01/22 20:16 Dose: 10 mg Documented By: KASH Dextrose (Dextrose 50 % 25 Gm/50 Ml Syringe) 25 gm IVPUSH Q15M PRN; Protocol PRN Reason: per Hypoglycemia Standing Ord. Last Admin: 07/02/22 07:41 Dose: 25 gm Documented By: JOSE EDUARDO Docusate Sodium (Docusate Sodium 100 Mg Capsule) 100 mg PO DAILY PRN PRN Reason: Constipation Docusate Sodium (Docusate Sodium 100 Mg Capsule) 100 mg PO BID [facility] Furosemide (Furosemide 40 Mg/4 Ml Vial) 40 mg IVPUSH BID@0900,1800 [facility]; Protocol Last Admin: 07/02/22 07:42 Dose: 40 mg Documented By: JOSE EDUARDO Comments: JIHAN Glucose (Glucose Gel 15 Gm Gel..Gram.) 15 gm PO Q15M PRN; Protocol PRN Reason: per Hypoglycemia Standing Ord. Ceftriaxone Sodium 1 gm/ (Sodium Chloride) 50 mls @ 100 mls/hr IV Q24H [facility] Last Infusion: 07/01/22 22:35 Dose: 0 mls/hr Documented By: ABDIAS Doxycycline Hyclate 100 mg/ (Sodium Chloride) 250 mls @ 166.67 mls/hr IV Q12H [facility] Last Infusion: 07/02/22 01:36 Dose: 0 mls/hr Documented By: ABDIAS Insulin Glargine (Insulin Glargine,Hum.Rec.Anlog 100 Unit/Ml 10 Ml Vial) 30 unit SUBCUT BEDTIME [facility] Insulin Human Lispro (Insulin Lispro 100 Unit/Ml 3 Ml Vial) 0 unit SUBCUT QIDACHS [facility]; Protocol Last Admin: 07/02/22 07:41 Dose: Not Given Documented By: JOSE EDUARDO Non-Admin Reason: No Insulin Coverage Levothyroxine Sodium (Levothyroxine Sodium 25 Mcg Tablet) 25 mcg PO 0630 [facility] Last Admin: 07/02/22 05:53 Dose: 25 mcg Documented By: ABDIAS Metoprolol Succinate (Metoprolol Succinate Er 50 Mg Tab.Er.24h) 150 mg PO DAILY [facility]; Protocol Last Admin: 07/02/22 07:42 Dose: 150 mg Documented By: JOSE EDUARDO Comments: JIHAN Morphine Sulfate (Morphine Sulfate 4 Mg/Ml Cartridge) 4 mg IVPUSH Q4H PRN; Protocol PRN Reason: Pain, Severe (Pain Scale 7-10) Last Admin: 07/02/22 01:46 Dose: 4 mg Documented By: ABDIAS Ondansetron HCl (Ondansetron Hcl 4 Mg/2 Ml Vial) 4 mg IVPUSH Q8H PRN PRN Reason: Nausea and Vomiting Oxybutynin Chloride (Oxybutynin Chloride Er 5 Mg Tab.Er.24) 10 mg PO DAILY [facility] Last Admin: 07/02/22 07:43 Dose: 10 mg Documented By: JOSE EDUARDO Sodium Chloride (0.9 % Sodium Chloride Flush 3 Ml Syringe) 3 ml IVFLUSH QSHIFT [facility] Last Admin: 07/02/22 07:42 Dose: 3 ml Documented By: JOSE EDUARDO Labs CBC & Chem 7: 07/02/22 05:28 07/02/22 05:28 Labs: Laboratory Results - last 24 hr 07/01/22 07/01/22 07/01/22 11:09 15:46 16:49 MCV MCH MCHC RDW Plt Count MPV Absolute Nucleated RBC Nucleated RBC % (auto) Anion Gap Estim Creat Clear Calc Estimated GFR POC Glucose 79 61 105 Random Glucose Calcium 07/01/22 07/01/22 07/02/22 18:55 19:44 05:28 MCV 87.0 MCH 27.7 MCHC 31.8 RDW 15.9 Plt Count 300 MPV 9.2 L Absolute Nucleated RBC 0.000 Nucleated RBC % (auto) 0.0 Anion Gap Estim Creat Clear Calc Estimated GFR POC Glucose 86 112 Random Glucose Calcium 07/02/22 07/02/22 07/02/22 05:28 07:24 07:52 MCV MCH MCHC RDW Plt Count MPV Absolute Nucleated RBC Nucleated RBC % (auto) Anion Gap 14 Estim Creat Clear Calc 36.3 Estimated GFR 38 POC Glucose 39 L* 172 H Random Glucose 51 L* Calcium 8.2 L Assessment and Plan (1) Atrial fibrillation with rapid ventricular response: Status: Acute (2) Acute CHF: Status: Acute (3) Cellulitis: Status: Acute (4) UTI (urinary tract infection): Status: Acute (5) Hematuria: Status: Acute (6) Pyelonephritis: Status: Acute Plan 81-year-old with past medical history of AFib on Coumadin presents to the hospital with hemorrhage # Afib w RvR Better controlled now DC Cardizem drip Increase metoprolol to 150 mg Restart warfarin as hematuria resolved Follow INR Keep on telemetry # acute on chronic diastolic CHF exacerbation improving Secondary to fluid overload Continue IV Lasix Monitor intake and output Wean down oxygen as tolerated # bladder mass on CT scan # hematuria # hydroureteronephrosis Resolving Post cystoscopy day 1, secondary to hemorrhage from bladder mass and being on aspirin and Coumadin hold aspirin, restarted if no bleeding with Coumadin urology input appreciated, no visible tumor, bladder diverticula, no obstruction Monitor H&H # pyelonephritis asymmetric right perinephric stranding afebrile, mild leukocytosis on IV antibiotics Day 04/11 negative urine and blood cultures # LLE cellulitis Two recent open wounds with surrounding erythema continue IV doxycycline Daily dressing surgery input appreciated, compression, to follow with outpatient upon discharge To do left lower leg Dopplers # acute blood loss anemia Hemoglobin dropped to 9.8 Consider transfusion if drops below 8 Monitor H and H # AFib continue rate control hold Coumadin for hematuria # Hypoglycemia in diabetes type 2 low-dose sliding scale insulin Decrease Lantus to 30 units bedtime diabetic diet DVT prophylaxis: SCDs, Warfarin patient will need overnight hospital stay to continue management for AFib RVR, CHF exacerbation, hematuria, by the nephritis, cellulitis to prevent possible decompensation into sepsis and renal failure Quality Stroke Does the patient have a stroke diagnosis?: No VTE Prior VTE?: No VTE Risk Level:: Medical - moderate - high VTE Device Contraindication: N/A - Device Ordered VTE Drug Contraindication: Treatment Not Indicated
[2022-07-02] MEDS: Lactulose 20 GM/30 ML SOLUTION PO (10:32)
[2022-07-02] MEDS: Docusate Sodium 100 MG CAPSULE PO ×2 (10:32→20:56)
[2022-07-02 11:13] LABS: Glucose, Whole Blood 178 mg/dL (60-115)
[2022-07-02] MEDS: Insulin Lispro 100 UNIT/ML 3 ML VIAL SUBCUT (11:52)
--- NOTE | 2022-07-02 14:48 | MHC.CM.PN ---
CM MET WITH PATIENT REGARDING REFERRAL TO [facility] SHE INFORMED PYSICAL THERAPIST SHE WOULD CONSIDER THAT SNF FOR REHAB. PATIENT REPORTS SHE WANTS TO GO HOME AND NOT TO REHAB. PATIENT SHARED SHE LIVES WITH A DAUGHTER AND HAS OTHER CHILDREN WHO WILL BE ABLE TO ASSIST HER ONCE SHE IS HOME. PATIENT IS WILLING TO RECEIVE HOME PT. PATIENT REPORTS SHE IS GOING TO MEET WITH HER ORTHO-SURGEON TO DISCUSS SURGERY FOR BOTH OF HER HIPS AND WANTS TO BE ABLE TO LEAVE THE HOUSE TO DO SO. PATIENT REPORTS SHE LIVES IN A HOUSE WITH ONLY TWO STEPS TO GET IN AND OUT. SHE REPORTS IT IS A ONE FLOOR HOUSE AND BEDROOM AND BATHROOM ARE ACCESSIBLE. [facility] REFERRAL INITIATED [facility] REVIEWING-PATIENT NOT INTERESTED IN GOING
[2022-07-02 16:39] LABS: Glucose, Whole Blood 129 mg/dL (60-115)
--- NOTE | 2022-07-02 18:00 | PC.NURSE ---
Patient alert and oriented x4, up with PT to chair this AM with wheeled walker +1 assist. Suprapubic catheter in place, patent and draining dark yellow urine. Crackles present in bases of bilateral lungs upon auscultation, retrieved order to d/c'd LR @80/hr. Currently on 2L oxygen via NC, attempted to wean off, but patient oxygen decreases to 89% on room air. Tele in place- afib HR- 80's-low 100's with occasional PVC's; cardizem gtt d/c'd. Lactulose and colace given for constipation, patient had very small bm today. Dressing on left lower extremity changed, timed, and dated. Denied pain. Bed alarm in place for safety, patient rings appropriately.
[2022-07-02] MEDS: Warfarin Sodium 2 MG TABLET PO (18:30)
[2022-07-02 20:43] LABS: Glucose, Whole Blood 139 mg/dL (60-115)
[2022-07-02] MEDS: Atorvastatin Calcium 10 MG TABLET PO (20:56)
[2022-07-02] MEDS: Insulin Glargine,Hum.rec.anlog 100 UNIT/ML 10 ML VIAL 30 UNIT SUBCUT (20:56)
[2022-07-02] MEDS: cefTRIAXone sodium 1 GM in 0.9 % Sodium Chloride 50 ML IV (20:57)
[2022-07-02] MEDS: Acetaminophen 325 MG TABLET 650 MG PO (22:03)
[2022-07-03] MEDS: Acetaminophen 325 MG TABLET 650 MG PO ×3 (05:06→21:50)
[2022-07-03] MEDS: Levothyroxine Sodium 25 MCG TABLET PO (05:57)
[2022-07-03 06:52] LABS: Hemoglobin 11.6 g/dl (12.0-16.0); Mean Corpuscular HGB Conc 32.2 g/dl (31.0-35.0); Mean Corpuscular Volume 86.7 fL (80.0-98.0); Platelet Count 348 X10*3/uL (160-400); Red Blood Count 4.15 X10*6/uL (4.20-5.50); Red Cell Distribution Width 16.3 % (11.0-16.0); White Blood Count 9.8 X10*3/uL (4.8-10.8)
[2022-07-03 06:55] LABS: INTERNATIONAL NORM RATIO 1.2 (0.9-1.1); Prothrombin Time 14.3 SEC (10.0-13.1)
[2022-07-03 06:59] VITALS: BP 138/83; PULSE 105; RESP 18; TEMP 36.1; O2SAT 96
[2022-07-03 07:19] LABS: B Type Natriuretic Peptide 546 pg/mL (<100)
[2022-07-03 07:21] LABS: Glucose, Whole Blood 122 mg/dL (60-115)
[2022-07-03 07:22] LABS: Anion Gap 20 (12-20); Blood Urea Nitrogen 22 mg/dL (9-16); Calcium 8.2 mg/dL (8.4-10.2); Carbon Dioxide 16 mmol/L (22-29); Chloride 106 mmol/L (96-108); Creatinine Clr Calc Pharmacy 32.5; Estimated Glomerular Filt Rate 33; Glucose Random 102 mg/dL (60-115); Potassium 4.4 mmol/L (3.3-5.1); Sodium 138 mmol/L (135-145)
[2022-07-03] MEDS: Metoprolol Succinate ER 50 MG TAB.ER.24H 150 MG PO (07:48)
[2022-07-03] MEDS: Docusate Sodium 100 MG CAPSULE PO ×2 (07:48→20:36)
[2022-07-03] MEDS: 0.9 % Sodium Chloride Flush 3 ML SYRINGE IVFLUSH ×3 (07:49→20:37)
[2022-07-03] MEDS: Furosemide 40 MG/4 ML VIAL IVPUSH ×2 (07:49→16:43)
[2022-07-03] MEDS: oxyCODONE HCl Immed Release 5 MG TABLET PO (08:06)
[2022-07-03 11:35] VITALS: BP 131/80; PULSE 91; RESP 18; TEMP 36.3; O2SAT 96
[2022-07-03 11:45] LABS: Glucose, Whole Blood 108 mg/dL (60-115)
[2022-07-03] MEDS: Doxycycline Hyclate 100 MG in 0.9 % Sodium Chloride 250 ML 166.67 MG IV ×2 (11:48→23:32)
--- NOTE | 2022-07-03 11:55 | PC.NURSE ---
Report given to Lizet Santos RN in endoscopy for patient's upcoming colonoscopy at this time.
[2022-07-03 15:29] VITALS: BP 153/65; PULSE 97; RESP 18; TEMP 36.6; O2SAT 97
[2022-07-03 16:01] LABS: Glucose, Whole Blood 247 mg/dL (60-115)
[2022-07-03] MEDS: Insulin Lispro 100 UNIT/ML 3 ML VIAL SUBCUT (16:43)
--- NOTE | 2022-07-03 17:22 | PC.NURSE ---
Report given to LUPE Nunes on [facility] at this time.
--- NOTE | 2022-07-03 17:22 | HO.PM.IMPN ---
Subjective Subjective Date of Service: 07/03/22 Interval History: seen and examined this morning Follow-up for cellulitis, Physical Exam Vital Signs: Vital Signs: Last Vital Signs Temp 97.9 F 07/03/22 15:29 Pulse 97 07/03/22 15:29 Resp 18 07/03/22 15:29 BP 153/65 H 07/03/22 15:29 Pulse Ox 97 07/03/22 15:29 O2 Del Method 07/03/22 15:29 O2 Flow Rate 2 07/03/22 06:59 Oxygen Flow Rate 2 07/02/22 18:33 BMI result Body Mass Index 33.3 Objective Data Active Medications Acetaminophen (Acetaminophen 325 Mg Tablet) 650 mg PO Q6H PRN PRN Reason: Pain, Mild (Pain Scale 1-3) Last Admin: 07/03/22 13:56 Dose: 650 mg Documented By: JOSE EDUARDO Atorvastatin Calcium (Atorvastatin Calcium 10 Mg Tablet) 10 mg PO BEDTIME [facility] Last Admin: 07/02/22 20:56 Dose: 10 mg Documented By: KELLI Dextrose (Dextrose 50 % 25 Gm/50 Ml Syringe) 25 gm IVPUSH Q15M PRN; Protocol PRN Reason: per Hypoglycemia Standing Ord. Last Admin: 07/02/22 07:41 Dose: 25 gm Documented By: JOSE EDUARDO Docusate Sodium (Docusate Sodium 100 Mg Capsule) 100 mg PO DAILY PRN PRN Reason: Constipation Docusate Sodium (Docusate Sodium 100 Mg Capsule) 100 mg PO BID [facility] Last Admin: 07/03/22 07:48 Dose: 100 mg Documented By: JOSE EDUARDO Furosemide (Furosemide 40 Mg/4 Ml Vial) 40 mg IVPUSH BID@0900,1800 [facility]; Protocol Last Admin: 07/03/22 16:43 Dose: 40 mg Documented By: JOSE EDUARDO Comments: BP-153/65 Glucose (Glucose Gel 15 Gm Gel..Gram.) 15 gm PO Q15M PRN; Protocol PRN Reason: per Hypoglycemia Standing Ord. Ceftriaxone Sodium 1 gm/ (Sodium Chloride) 50 mls @ 100 mls/hr IV Q24H [facility] Last Infusion: 07/02/22 21:51 Dose: 0 mls/hr Documented By: KELLI Doxycycline Hyclate 100 mg/ (Sodium Chloride) 250 mls @ 166.67 mls/hr IV Q12H [facility] Last Infusion: 07/03/22 16:42 Dose: 0 mls/hr Documented By: JOSE EDUARDO Insulin Glargine (Insulin Glargine,Hum.Rec.Anlog 100 Unit/Ml 10 Ml Vial) 30 unit SUBCUT BEDTIME [facility] Last Admin: 07/02/22 20:56 Dose: 30 unit Documented By: KELLI Insulin Human Lispro (Insulin Lispro 100 Unit/Ml 3 Ml Vial) 0 unit SUBCUT QIDACHS [facility]; Protocol Last Admin: 07/03/22 16:43 Dose: 4 unit Documented By: JOSE EDUARDO Levothyroxine Sodium (Levothyroxine Sodium 25 Mcg Tablet) 25 mcg PO 0630 [facility] Last Admin: 07/03/22 05:57 Dose: 25 mcg Documented By: KHANH Metoprolol Succinate (Metoprolol Succinate Er 50 Mg Tab.Er.24h) 150 mg PO DAILY [facility]; Protocol Last Admin: 07/03/22 07:48 Dose: 150 mg Documented By: JOSE EDUARDO Comments: BP-138/83 Ondansetron HCl (Ondansetron Hcl 4 Mg/2 Ml Vial) 4 mg IVPUSH Q8H PRN PRN Reason: Nausea and Vomiting Oxybutynin Chloride (Oxybutynin Chloride Er 5 Mg Tab.Er.24) 10 mg PO DAILY [facility] Last Admin: 07/03/22 07:48 Dose: 10 mg Documented By: JOSE EDUARDO Sodium Chloride (0.9 % Sodium Chloride Flush 3 Ml Syringe) 3 ml IVFLUSH QSHIFT [facility] Last Admin: 07/03/22 16:43 Dose: 3 ml Documented By: JOSE EDUARDO Warfarin Sodium (Warfarin Sodium 2 Mg Tablet) 2 mg PO DAILY@1800 [facility] Last Admin: 07/02/22 18:30 Dose: 2 mg Documented By: JOSE EDUARDO Labs CBC & Chem 7: 07/03/22 06:05 07/03/22 06:05 Labs: Laboratory Results - last 24 hr 07/02/22 07/03/22 07/03/22 20:39 06:05 06:05 MCV 86.7 MCH 28.0 MCHC 32.2 RDW 16.3 H Plt Count 348 MPV 10.0 Absolute Nucleated RBC 0.000 Nucleated RBC % (auto) 0.0 PT INR Anion Gap 20 Estim Creat Clear Calc 32.5 Estimated GFR 33 POC Glucose 139 H Random Glucose 102 Calcium 8.2 L B-Natriuretic Peptide 07/03/22 07/03/22 07/03/22 06:05 06:05 07:02 MCV MCH MCHC RDW Plt Count MPV Absolute Nucleated RBC Nucleated RBC % (auto) PT 14.3 H INR 1.2 H Anion Gap Estim Creat Clear Calc Estimated GFR POC Glucose 122 H Random Glucose Calcium B-Natriuretic Peptide 546 H 07/03/22 07/03/22 11:40 15:33 MCV MCH MCHC RDW Plt Count MPV Absolute Nucleated RBC Nucleated RBC % (auto) PT INR Anion Gap Estim Creat Clear Calc Estimated GFR POC Glucose 108 247 H Random Glucose Calcium B-Natriuretic Peptide Microbiology Microbiology Results: Microbiology 06/27/22 20:06 Blood Culture - Final Blood - Venous No growth after 5 days. 06/27/22 20:06 Blood Culture - Final Blood - Venous No growth after 5 days. Assessment and Plan (1) Atrial fibrillation with rapid ventricular response: Status: Acute (2) Leg wound, left: Status: Acute (3) UTI (urinary tract infection): Status: Acute (4) Hematuria: Status: Acute Plan 81-year-old with past medical history of AFib on Coumadin presents to the hospital with hemorrhage # Afib w RvR Better controlled now DC Cardizem drip continue metoprolol to 150 mg Restart warfarin as hematuria resolved Follow INR Keep on telemetry # acute on chronic diastolic CHF exacerbation improving Transition back to po lasix Monitor intake and output Wean down oxygen as tolerated # bladder mass on CT scan # hematuria # hydroureteronephrosis Resolving s/p cystoscopy 07/01 secondary to hemorrhage from bladder mass and being on aspirin and Coumadin hold aspirin, restarted Coumadin urology input appreciated, no visible tumor, bladder diverticula, no obstruction Monitor H&H # pyelonephritis asymmetric right perinephric stranding afebrile, mild leukocytosis on IV antibiotics Day 05/11 negative urine and blood cultures # LLE cellulitis Two recent open wounds with surrounding erythema continue IV doxycycline Daily dressing surgery input appreciated, compression, to follow with outpatient upon discharge To do left lower leg Dopplers # acute blood loss anemia H/H stable Consider transfusion if drops below 8 # Hypoglycemia in diabetes type 2 low-dose sliding scale insulin Decrease Lantus to 30 units bedtime diabetic diet DVT prophylaxis: SCDs, Warfarin attending - dr. bethea patient will need overnight hospital stay to continue management for AFib RVR, CHF exacerbation, hematuria, by the nephritis, cellulitis to prevent possible decompensation into sepsis and renal failure Quality Stroke Does the patient have a stroke diagnosis?: No VTE Prior VTE?: No VTE Risk Level:: Medical - moderate - high VTE Device Contraindication: N/A - Device Ordered VTE Drug Contraindication: Treatment Not Indicated
[2022-07-03 17:50] VITALS: BP 138/91; PULSE 74; RESP 18; TEMP 36.8; O2SAT 94
[2022-07-03 18:00] VITALS: O2SAT 99
[2022-07-03 19:15] VITALS: BP 145/64; PULSE 87; RESP 18; TEMP 37; O2SAT 98
[2022-07-03] MEDS: Warfarin Sodium 2 MG TABLET PO (20:36)
[2022-07-03] MEDS: Atorvastatin Calcium 10 MG TABLET PO (20:37)
[2022-07-03 22:06] LABS: Glucose, Whole Blood 142 mg/dL (60-115)
[2022-07-03] MEDS: cefTRIAXone sodium 1 GM in 0.9 % Sodium Chloride 50 ML IV (22:54)
[2022-07-04] MEDS: Levothyroxine Sodium 25 MCG TABLET PO (06:01)
[2022-07-04 06:29] LABS: INTERNATIONAL NORM RATIO 1.3 (0.9-1.1); Prothrombin Time 15.1 SEC (10.0-13.1)
[2022-07-04 06:46] LABS: Anion Gap 20 (12-20); Blood Urea Nitrogen 24 mg/dL (9-16); Calcium 8.2 mg/dL (8.4-10.2); Carbon Dioxide 19 mmol/L (22-29); Chloride 103 mmol/L (96-108); Creatinine Clr Calc Pharmacy 34.8; Estimated Glomerular Filt Rate 36; Glucose Random 142 mg/dL (60-115); Potassium 3.6 mmol/L (3.3-5.1); Sodium 138 mmol/L (135-145)
[2022-07-04 07:00] VITALS: BP 158/80; PULSE 95; RESP 17; TEMP 36.4; O2SAT 94
[2022-07-04 07:37] LABS: Glucose, Whole Blood 145 mg/dL (60-115)
[2022-07-04] MEDS: Docusate Sodium 100 MG CAPSULE PO ×2 (09:54→21:43)
[2022-07-04] MEDS: Doxycycline Hyclate 100 MG in 0.9 % Sodium Chloride 250 ML 166.67 MG IV (09:54)
[2022-07-04] MEDS: Metoprolol Succinate ER 50 MG TAB.ER.24H 150 MG PO (09:54)
[2022-07-04] MEDS: Furosemide 40 MG TABLET PO ×2 (09:55→18:12)
[2022-07-04] MEDS: Acetaminophen 325 MG TABLET 650 MG PO ×2 (09:56→21:45)
[2022-07-04] MEDS: 0.9 % Sodium Chloride Flush 3 ML SYRINGE IVFLUSH ×2 (09:59→18:13)
[2022-07-04 10:46] VITALS: BP 158/80; PULSE 95; O2SAT 94
[2022-07-04 11:08] VITALS: BP 140/82; PULSE 102; RESP 18; TEMP 36.4; O2SAT 98
[2022-07-04 11:15] LABS: Glucose, Whole Blood 172 mg/dL (60-115)
[2022-07-04] MEDS: Insulin Lispro 100 UNIT/ML 3 ML VIAL SUBCUT ×2 (11:35→21:43)
--- NOTE | 2022-07-04 12:41 | MHC.CM.PN ---
Patient has not yet been medically cleared for dc (Cellulitis and UTI/IV Doxycycline & IV Ceftriaxone); PT is recommending STR and Patient wants to return home. Per ROUNDS discussion, PA will be checking results of Xray and speaking with daughter regarding dc planning. CM will follow.
--- NOTE | 2022-07-04 14:07 | HO.PM.IMPN ---
Subjective Subjective Date of Service: 07/04/22 Interval History: seen and examined this morning follow up for hematuria having a lot of right hip pain, Right hip cracking overnight no fever, chills Review of Systems Review of Systems: Yes all other systems are reviewed and are negative Constitutional Constitutional: Denies chills and Denies fever(s) Cardiovascular Cardiovascular: Denies chest pain, Denies palpitations and Denies dyspnea Respiratory Respiratory: Denies cough and Denies dyspnea Gastrointestinal Gastrointestinal: Denies abdominal pain Endocrine Endocrine: Denies palpitations Physical Exam Vital Signs: Vital Signs: Last Vital Signs Temp 97.5 F 07/04/22 11:08 Pulse 102 H 07/04/22 11:08 Resp 18 07/04/22 11:08 BP 140/82 H 07/04/22 11:08 Pulse Ox 98 07/04/22 11:08 O2 Del Method 07/04/22 11:08 O2 Flow Rate 2 07/03/22 06:59 Oxygen Flow Rate 2 07/02/22 18:33 BMI result Body Mass Index 33.3 Const: General: cooperative, comfortable, alert and awake Nutritional Appearance: overweight Orientation/consciousness: patient oriented x3 Resp: Effort & Inspection: normal respiratory effort and able to speak in complete sentences Cardio: Other: regular rate; irregular rhythm GI: Palpation (GI): Soft to palpation and nontender : Other: suprapubic catheter present Skin: Other: Neuro: General: patient oriented x3 Objective Data Active Medications Acetaminophen (Acetaminophen 325 Mg Tablet) 650 mg PO Q6H PRN PRN Reason: Pain, Mild (Pain Scale 1-3) Last Admin: 07/04/22 09:56 Dose: 650 mg Documented By: LAUREN Atorvastatin Calcium (Atorvastatin Calcium 10 Mg Tablet) 10 mg PO BEDTIME [facility] Last Admin: 07/03/22 20:37 Dose: 10 mg Documented By: CANDICETEKAvtar Dextrose (Dextrose 50 % 25 Gm/50 Ml Syringe) 25 gm IVPUSH Q15M PRN; Protocol PRN Reason: per Hypoglycemia Standing Ord. Last Admin: 07/02/22 07:41 Dose: 25 gm Documented By: JOSE EDUARDO Docusate Sodium (Docusate Sodium 100 Mg Capsule) 100 mg PO DAILY PRN PRN Reason: Constipation Docusate Sodium (Docusate Sodium 100 Mg Capsule) 100 mg PO BID [facility] Last Admin: 07/04/22 09:54 Dose: 100 mg Documented By: LAUREN Furosemide (Furosemide 40 Mg Tablet) 40 mg PO BID@0900,1800 [facility]; Protocol Last Admin: 07/04/22 09:55 Dose: 40 mg Documented By: LAUREN Glucose (Glucose Gel 15 Gm Gel..Gram.) 15 gm PO Q15M PRN; Protocol PRN Reason: per Hypoglycemia Standing Ord. Ceftriaxone Sodium 1 gm/ (Sodium Chloride) 50 mls @ 100 mls/hr IV Q24H [facility] Last Infusion: 07/04/22 00:02 Dose: 0 mls/hr Documented By: KAY Doxycycline Hyclate 100 mg/ (Sodium Chloride) 250 mls @ 166.67 mls/hr IV Q12H [facility] Last Infusion: 07/04/22 11:34 Dose: 0 mls/hr Documented By: LAUREN Insulin Glargine (Insulin Glargine,Hum.Rec.Anlog 100 Unit/Ml 10 Ml Vial) 30 unit SUBCUT BEDTIME [facility] Last Admin: 07/03/22 21:02 Dose: Not Given Documented By: ABIGAIL Non-Admin Reason: No Insulin Coverage Insulin Human Lispro (Insulin Lispro 100 Unit/Ml 3 Ml Vial) 0 unit SUBCUT QIDACHS [facility]; Protocol Last Admin: 07/04/22 11:35 Dose: 2 unit Documented By: LAUREN Levothyroxine Sodium (Levothyroxine Sodium 25 Mcg Tablet) 25 mcg PO 0630 [facility] Last Admin: 07/04/22 06:01 Dose: 25 mcg Documented By: ABIGAIL Metoprolol Succinate (Metoprolol Succinate Er 50 Mg Tab.Er.24h) 150 mg PO DAILY [facility]; Protocol Last Admin: 07/04/22 09:54 Dose: 150 mg Documented By: LAUREN Ondansetron HCl (Ondansetron Hcl 4 Mg/2 Ml Vial) 4 mg IVPUSH Q8H PRN PRN Reason: Nausea and Vomiting Oxybutynin Chloride (Oxybutynin Chloride Er 5 Mg Tab.Er.24) 10 mg PO DAILY [facility] Last Admin: 07/04/22 09:54 Dose: 10 mg Documented By: LAUREN Sodium Chloride (0.9 % Sodium Chloride Flush 3 Ml Syringe) 3 ml IVFLUSH QSHIFT [facility] Last Admin: 07/04/22 09:59 Dose: 3 ml Documented By: LAUREN Warfarin Sodium (Warfarin Sodium 2 Mg Tablet) 2 mg PO DAILY@1800 [facility] Last Admin: 07/03/22 20:36 Dose: 2 mg Documented By: ABIGAIL Labs CBC & Chem 7: 07/03/22 06:05 07/04/22 05:41 Labs: Laboratory Results - last 24 hr 07/03/22 07/03/22 07/04/22 15:33 20:07 05:41 PT 15.1 H INR 1.3 H Anion Gap Estim Creat Clear Calc Estimated GFR POC Glucose 247 H 142 H Random Glucose Calcium 07/04/22 07/04/22 07/04/22 05:41 07:33 11:11 PT INR Anion Gap 20 Estim Creat Clear Calc 34.8 Estimated GFR 36 POC Glucose 145 H 172 H Random Glucose 142 H Calcium 8.2 L Assessment and Plan (1) Atrial fibrillation with rapid ventricular response: Status: Acute (2) Cellulitis: Status: Acute (3) Hematuria: Status: Acute (4) Pyelonephritis: Status: Acute Plan 81-year-old with past medical history of AFib on Coumadin presents to the hospital with hemorrhage Acute on chronic right hip pain history of severe osteoarthritis, planned for outpatient right hip arthroplasty repeat xray showing no acute fracture unable to ambulate -symptomatic support -ortho eval if no improvement # Afib w RvR Better controlled DC Cardizem drip continue metoprolol to 150 mg Restart warfarin as hematuria resolved Follow INR Keep on telemetry # acute on chronic diastolic CHF exacerbation improving Transition back to po lasix Monitor intake and output Back on room air # bladder mass on CT scan # hematuria # hydroureteronephrosis Resolving s/p cystoscopy 07/01 secondary to hemorrhage from bladder mass and being on aspirin and Coumadin hold aspirin restarted Coumadin urology input appreciated, no visible tumor, bladder diverticula, no obstruction CBC stable # pyelonephritis asymmetric right perinephric stranding afebrile, mild leukocytosis on IV ceftriaxone Day 06/11 negative urine and blood cultures # LLE cellulitis Two recent open wounds with surrounding erythema continue IV doxycycline Daily dressing surgery input appreciated, compression, to follow with outpatient upon discharge 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 bethea patient will need overnight hospital stay to continue management for AFib RVR, CHF exacerbation, hematuria, by the nephritis, cellulitis to prevent possible decompensation into sepsis and renal failure Quality Stroke Does the patient have a stroke diagnosis?: No VTE Prior VTE?: No VTE Risk Level:: Medical - moderate - high VTE Device Contraindication: N/A - Device Ordered VTE Drug Contraindication: Treatment Not Indicated
[2022-07-04] MEDS: Morphine Sulfate 2 MG/ML CARTRIDGE IVPUSH (14:12)
[2022-07-04 15:57] VITALS: BP 158/85; PULSE 100; RESP 18; TEMP 37.1; O2SAT 95
[2022-07-04 16:08] LABS: Glucose, Whole Blood 134 mg/dL (60-115)
[2022-07-04 18:00] VITALS: O2SAT 97
[2022-07-04] MEDS: Warfarin Sodium 2 MG TABLET PO (18:12)
[2022-07-04 20:00] VITALS: BP 111/69; RESP 20; O2SAT 97
[2022-07-04 20:29] LABS: Glucose, Whole Blood 202 mg/dL (60-115)
[2022-07-04] MEDS: cefTRIAXone sodium 1 GM in 0.9 % Sodium Chloride 50 ML IV (21:43)
[2022-07-04] MEDS: Atorvastatin Calcium 10 MG TABLET PO (21:43)
[2022-07-04] MEDS: Insulin Glargine,Hum.rec.anlog 100 UNIT/ML 10 ML VIAL 30 UNIT SUBCUT (21:46)
[2022-07-05] VITALS (7 sets, daily range): BP systolic 121–159; BP diastolic 56–73; PULSE 76–101; RESP 18–20; TEMP 36.1–36.7; O2SAT 94–100
[2022-07-05] MEDS: Doxycycline Hyclate 100 MG in 0.9 % Sodium Chloride 250 ML 166.67 MG IV ×3 (00:28→23:47)
[2022-07-05] MEDS: 0.9 % Sodium Chloride Flush 3 ML SYRINGE IVFLUSH ×3 (00:30→16:46)
[2022-07-05] MEDS: Melatonin 3 MG TABLET 6 MG PO ×2 (01:58→23:06)
[2022-07-05] MEDS: Levothyroxine Sodium 25 MCG TABLET PO (06:45)
[2022-07-05 07:02] LABS: INTERNATIONAL NORM RATIO 1.6 (0.9-1.1); Prothrombin Time 18.9 SEC (10.0-13.1)
[2022-07-05 07:52] LABS: Glucose, Whole Blood 92 mg/dL (60-115)
[2022-07-05] MEDS: Metoprolol Succinate ER 50 MG TAB.ER.24H 150 MG PO (09:58)
[2022-07-05] MEDS: Furosemide 40 MG TABLET PO ×2 (09:58→17:31)
[2022-07-05] MEDS: Docusate Sodium 100 MG CAPSULE PO ×2 (09:58→21:50)
--- NOTE | 2022-07-05 11:07 | HO.PM.IMPN ---
Subjective Subjective Date of Service: 07/05/22 Review of Systems seen and examined this morning Still with severe hip pain no further bleeding no fever, chills Physical Exam Vital Signs: Vital Signs: Last Vital Signs Temp 97.8 F 07/05/22 07:17 Pulse 78 07/05/22 07:17 Resp 19 07/05/22 07:17 BP 143/70 H 07/05/22 07:17 Pulse Ox 96 07/05/22 07:17 O2 Del Method 07/05/22 07:17 O2 Flow Rate 2 07/03/22 06:59 Oxygen Flow Rate 2 07/04/22 20:00 BMI result Body Mass Index 33.3 Appearing in no acute distress lung sounds are clear to auscultation heart regular rate rhythm, clear S1, S2 positive bowel sounds, abdomen is soft, nontender neuro patient is alert x3, no focal deficits Objective Data Active Medications Acetaminophen (Acetaminophen 325 Mg Tablet) 650 mg PO Q6H PRN PRN Reason: Pain, Mild (Pain Scale 1-3) Last Admin: 07/04/22 21:45 Dose: 650 mg Documented By: DIPAK Atorvastatin Calcium (Atorvastatin Calcium 10 Mg Tablet) 10 mg PO BEDTIME [facility] Last Admin: 07/04/22 21:43 Dose: 10 mg Documented By: DIPAK Dextrose (Dextrose 50 % 25 Gm/50 Ml Syringe) 25 gm IVPUSH Q15M PRN; Protocol PRN Reason: per Hypoglycemia Standing Ord. Last Admin: 07/02/22 07:41 Dose: 25 gm Documented By: JOSE EDUARDO Docusate Sodium (Docusate Sodium 100 Mg Capsule) 100 mg PO DAILY PRN PRN Reason: Constipation Docusate Sodium (Docusate Sodium 100 Mg Capsule) 100 mg PO BID [facility] Last Admin: 07/05/22 09:58 Dose: 100 mg Documented By: HA Furosemide (Furosemide 40 Mg Tablet) 40 mg PO BID@0900,1800 [facility]; Protocol Last Admin: 07/05/22 09:58 Dose: 40 mg Documented By: HA Glucose (Glucose Gel 15 Gm Gel..Gram.) 15 gm PO Q15M PRN; Protocol PRN Reason: per Hypoglycemia Standing Ord. Ceftriaxone Sodium 1 gm/ (Sodium Chloride) 50 mls @ 100 mls/hr IV Q24H [facility] Last Infusion: 07/04/22 23:00 Dose: 0 mls/hr Documented By: DIPAK Doxycycline Hyclate 100 mg/ (Sodium Chloride) 250 mls @ 166.67 mls/hr IV Q12H [facility] Last Admin: 07/05/22 09:59 Dose: 166.67 mls/hr Documented By: HA Insulin Glargine (Insulin Glargine,Hum.Rec.Anlog 100 Unit/Ml 10 Ml Vial) 30 unit SUBCUT BEDTIME [facility] Last Admin: 07/04/22 21:46 Dose: 30 unit Documented By: DIPAK Insulin Human Lispro (Insulin Lispro 100 Unit/Ml 3 Ml Vial) 0 unit SUBCUT QIDACHS [facility]; Protocol Last Admin: 07/05/22 08:59 Dose: Not Given Documented By: HA Non-Admin Reason: No Insulin Coverage Levothyroxine Sodium (Levothyroxine Sodium 25 Mcg Tablet) 25 mcg PO 0630 [facility] Last Admin: 07/05/22 06:45 Dose: 25 mcg Documented By: MICHAELA Melatonin (Melatonin 3 Mg Tablet) 6 mg PO BEDTIME PRN PRN Reason: Sleep Last Admin: 07/05/22 01:58 Dose: 6 mg Documented By: MICHAELA Metoprolol Succinate (Metoprolol Succinate Er 50 Mg Tab.Er.24h) 150 mg PO DAILY [facility]; Protocol Last Admin: 07/05/22 09:58 Dose: 150 mg Documented By: HA Ondansetron HCl (Ondansetron Hcl 4 Mg/2 Ml Vial) 4 mg IVPUSH Q8H PRN PRN Reason: Nausea and Vomiting Oxybutynin Chloride (Oxybutynin Chloride Er 5 Mg Tab.Er.24) 10 mg PO DAILY [facility] Last Admin: 07/05/22 09:58 Dose: 10 mg Documented By: HA Sodium Chloride (0.9 % Sodium Chloride Flush 3 Ml Syringe) 3 ml IVFLUSH QSHIFT [facility] Last Admin: 07/05/22 09:58 Dose: 3 ml Documented By: HA Warfarin Sodium (Warfarin Sodium 2 Mg Tablet) 2 mg PO DAILY@1800 [facility] Last Admin: 07/04/22 18:12 Dose: 2 mg Documented By: LAUREN Labs CBC & Chem 7: 07/03/22 06:05 07/04/22 05:41 Labs: Laboratory Results - last 24 hr 07/04/22 07/04/22 07/04/22 11:11 16:00 19:45 PT INR POC Glucose 172 H 134 H 202 H 07/05/22 07/05/22 06:15 07:18 PT 18.9 H INR 1.6 H POC Glucose 92 Assessment and Plan (1) Atrial fibrillation with rapid ventricular response: Status: Acute (2) Cellulitis: Status: Acute (3) Hematuria: Status: Acute (4) Pyelonephritis: Status: Acute Plan 81-year-old with past medical history of AFib on Coumadin presents to the hospital with hemorrhage Acute on chronic right hip pain history of severe osteoarthritis, planned for outpatient right hip arthroplasty repeat xray showing no acute fracture unable to ambulate consult to orthopedic surgery prior to discharge, may need inpatient surgical intervention Afib w RvR, chronic she distant Better controlled Cardizem drip stopped continue metoprolol to 150 mg Restart warfarin as hematuria resolved Follow INR Keep on telemetry acute on chronic diastolic CHF exacerbation Transition back to po lasix Monitor intake and output Back on room air bladder mass on CT scan with hematuria and hydroureter nephrosis s/p cystoscopy 07/01 secondary to hemorrhage from bladder mass and being on aspirin and Coumadin restarted Coumadin pyelonephritis asymmetric right perinephric stranding afebrile, mild leukocytosis on IV ceftriaxone Day negative urine and blood cultures LLE cellulitis Two recent open wounds with surrounding erythema continue IV doxycycline Daily dressing 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 Schaefer patient will need hospital stay to continue management for AFib RVR, CHF exacerbation, hematuria, pyelonephritis, cellulitis to prevent possible decompensation into sepsis and renal failure Quality Stroke Does the patient have a stroke diagnosis?: No VTE Prior VTE?: No VTE Risk Level:: Medical - moderate - high VTE Device Contraindication: N/A - Device Ordered VTE Drug Contraindication: Treatment Not Indicated
[2022-07-05 11:46] LABS: Glucose, Whole Blood 122 mg/dL (60-115)
[2022-07-05 16:18] LABS: Glucose, Whole Blood 151 mg/dL (60-115)
[2022-07-05] MEDS: Insulin Lispro 100 UNIT/ML 3 ML VIAL SUBCUT ×2 (16:45→21:52)
[2022-07-05] MEDS: Warfarin Sodium 2 MG TABLET PO (17:31)
[2022-07-05 19:50] LABS: Glucose, Whole Blood 152 mg/dL (60-115)
[2022-07-05] MEDS: Atorvastatin Calcium 10 MG TABLET PO (21:48)
[2022-07-05] MEDS: cefTRIAXone sodium 1 GM in 0.9 % Sodium Chloride 50 ML IV (23:06)
[2022-07-06 04:00] VITALS: BP 150/70; PULSE 87; RESP 16; TEMP 36.7; O2SAT 94
[2022-07-06] MEDS: 0.9 % Sodium Chloride Flush 3 ML SYRINGE IVFLUSH ×3 (06:19→17:01)
[2022-07-06] MEDS: Levothyroxine Sodium 25 MCG TABLET PO (06:30)
[2022-07-06 07:01] LABS: INTERNATIONAL NORM RATIO 2.1 (0.9-1.1); Prothrombin Time 24.7 SEC (10.0-13.1)
[2022-07-06 07:48] VITALS: BP 135/82; PULSE 84; RESP 16; TEMP 36.7; O2SAT 97
[2022-07-06 07:57] LABS: Glucose, Whole Blood 116 mg/dL (60-115)
--- NOTE | 2022-07-06 10:23 | P.PNIM_ITS ---
Subjective Subjective Date of Service: 07/06/22 Review of Systems seen and examined this morning Still with severe hip pain no further bleeding no fever, chills Physical Exam Vital Signs: Vital Signs: Last Vital Signs Temp 98.0 F 07/06/22 07:48 Pulse 84 07/06/22 07:48 Resp 16 07/06/22 07:48 BP 135/82 07/06/22 07:48 Pulse Ox 97 07/06/22 07:48 O2 Del Method 07/06/22 07:48 O2 Flow Rate 2 07/03/22 06:59 Oxygen Flow Rate 0 07/05/22 20:00 BMI result Body Mass Index 33.3 Appearing in no acute distress lung sounds are clear to auscultation heart regular rate rhythm, clear S1, S2 positive bowel sounds, abdomen is soft, nontender neuro patient is alert x3, no focal deficits Objective Data Active Medications Acetaminophen (Acetaminophen 325 Mg Tablet) 650 mg PO Q6H PRN PRN Reason: Pain, Mild (Pain Scale 1-3) Last Admin: 07/04/22 21:45 Dose: 650 mg Documented By: DIPAK Atorvastatin Calcium (Atorvastatin Calcium 10 Mg Tablet) 10 mg PO BEDTIME [facility] Last Admin: 07/05/22 21:48 Dose: 10 mg Documented By: DIPAK Dextrose (Dextrose 50 % 25 Gm/50 Ml Syringe) 25 gm IVPUSH Q15M PRN; Protocol PRN Reason: per Hypoglycemia Standing Ord. Last Admin: 07/02/22 07:41 Dose: 25 gm Documented By: JOSE EDUARDO Docusate Sodium (Docusate Sodium 100 Mg Capsule) 100 mg PO DAILY PRN PRN Reason: Constipation Docusate Sodium (Docusate Sodium 100 Mg Capsule) 100 mg PO BID [facility] Last Admin: 07/05/22 21:50 Dose: 100 mg Documented By: DIPAK Furosemide (Furosemide 40 Mg Tablet) 40 mg PO BID@0900,1800 [facility]; Protocol Last Admin: 07/05/22 17:31 Dose: 40 mg Documented By: HA Glucose (Glucose Gel 15 Gm Gel..Gram.) 15 gm PO Q15M PRN; Protocol PRN Reason: per Hypoglycemia Standing Ord. Ceftriaxone Sodium 1 gm/ (Sodium Chloride) 50 mls @ 100 mls/hr IV Q24H [facility] Last Infusion: 07/06/22 01:25 Dose: 0 mls/hr Documented By: MICHAELA Doxycycline Hyclate 100 mg/ (Sodium Chloride) 250 mls @ 166.67 mls/hr IV Q12H [facility] Last Infusion: 07/06/22 01:25 Dose: 0 mls/hr Documented By: MICHAELA Insulin Glargine (Insulin Glargine,Hum.Rec.Anlog 100 Unit/Ml 10 Ml Vial) 30 unit SUBCUT BEDTIME [facility] Last Admin: 07/05/22 21:54 Dose: Not Given Documented By: DIPAK Non-Admin Reason: poor appetite Insulin Human Lispro (Insulin Lispro 100 Unit/Ml 3 Ml Vial) 0 unit SUBCUT QIDACHS [facility]; Protocol Last Admin: 07/06/22 08:31 Dose: Not Given Documented By: HATTIE Non-Admin Reason: No Insulin Coverage Levothyroxine Sodium (Levothyroxine Sodium 25 Mcg Tablet) 25 mcg PO 0630 [facility] Last Admin: 07/06/22 06:30 Dose: 25 mcg Documented By: MICHAELA Melatonin (Melatonin 3 Mg Tablet) 6 mg PO BEDTIME PRN PRN Reason: Sleep Last Admin: 07/05/22 23:06 Dose: 6 mg Documented By: DIPAK Metoprolol Succinate (Metoprolol Succinate Er 50 Mg Tab.Er.24h) 150 mg PO DAILY [facility]; Protocol Last Admin: 07/05/22 09:58 Dose: 150 mg Documented By: HA Ondansetron HCl (Ondansetron Hcl 4 Mg/2 Ml Vial) 4 mg IVPUSH Q8H PRN PRN Reason: Nausea and Vomiting Oxybutynin Chloride (Oxybutynin Chloride Er 5 Mg Tab.Er.24) 10 mg PO DAILY [facility] Last Admin: 07/05/22 09:58 Dose: 10 mg Documented By: HA Sodium Chloride (0.9 % Sodium Chloride Flush 3 Ml Syringe) 3 ml IVFLUSH QSHIFT [facility] Last Admin: 07/06/22 06:19 Dose: 3 ml Documented By: MICHAELA Warfarin Sodium (Warfarin Sodium 2 Mg Tablet) 2 mg PO DAILY@1800 [facility] Last Admin: 07/05/22 17:31 Dose: 2 mg Documented By: HO.BERGERT Labs CBC & Chem 7: 07/03/22 06:05 07/04/22 05:41 Labs: Laboratory Results - last 24 hr 07/05/22 07/05/22 07/05/22 11:10 15:56 19:44 PT INR POC Glucose 122 H 151 H 152 H 07/06/22 07/06/22 06:06 07:53 PT 24.7 H INR 2.1 H POC Glucose 116 H Assessment and Plan (1) Atrial fibrillation with rapid ventricular response: Status: Acute (2) Cellulitis: Status: Acute (3) Hematuria: Status: Acute (4) Pyelonephritis: Status: Acute Plan 81-year-old with past medical history of AFib on Coumadin presents to the hospital with hemorrhage Acute on chronic right hip pain history of severe osteoarthritis repeat xray showing no acute fracture unable to ambulate consult to orthopedic surgery prior to discharge, may need inpatient surgical intervention Afib w RvR, chronic intermittent Better controlled Cardizem drip stopped continue metoprolol to 150 mg Restart warfarin as hematuria resolved Follow INR Keep on telemetry acute on chronic diastolic CHF exacerbation Transition back to po lasix Monitor intake and output Back on room air bladder mass on CT scan with hematuria and hydroureter nephrosis s/p cystoscopy 07/01 secondary to hemorrhage from bladder mass and being on aspirin and Coumadin restarted Coumadin pyelonephritis asymmetric right perinephric stranding afebrile, mild leukocytosis on IV ceftriaxone Day negative urine and blood cultures LLE cellulitis Two recent open wounds with surrounding erythema continue IV doxycycline Daily dressing 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 Schaefer patient will need hospital stay to continue management for AFib RVR, CHF exacerbation, hematuria, pyelonephritis, cellulitis to prevent possible decompensation into sepsis and renal failure Quality Stroke Does the patient have a stroke diagnosis?: No VTE Prior VTE?: No VTE Risk Level:: Medical - moderate - high VTE Device Contraindication: N/A - Device Ordered VTE Drug Contraindication: Treatment Not Indicated
[2022-07-06] MEDS: Furosemide 40 MG TABLET PO ×2 (11:00→17:00)
[2022-07-06] MEDS: Docusate Sodium 100 MG CAPSULE PO ×2 (11:00→21:25)
[2022-07-06] MEDS: Metoprolol Succinate ER 50 MG TAB.ER.24H 150 MG PO (11:02)
[2022-07-06] MEDS: Doxycycline Hyclate 100 MG in 0.9 % Sodium Chloride 250 ML 166.67 MG IV ×2 (11:02→22:01)
[2022-07-06 11:46] VITALS: BP 115/56; PULSE 102; RESP 20; TEMP 36.7; O2SAT 97
[2022-07-06 11:55] LABS: Glucose, Whole Blood 242 mg/dL (60-115)
[2022-07-06] MEDS: Insulin Lispro 100 UNIT/ML 3 ML VIAL SUBCUT ×3 (12:16→21:24)
[2022-07-06 15:30] VITALS: BP 142/65; PULSE 80; RESP 20; TEMP 36.6; O2SAT 98
[2022-07-06 15:46] LABS: Glucose, Whole Blood 167 mg/dL (60-115)
[2022-07-06] MEDS: Warfarin Sodium 2 MG TABLET PO (16:59)
[2022-07-06 19:05] VITALS: BP 117/61; PULSE 104; RESP 18; TEMP 37; O2SAT 97
[2022-07-06 19:41] VITALS: O2SAT 98
[2022-07-06 20:02] LABS: Glucose, Whole Blood 224 mg/dL (60-115)
[2022-07-06] MEDS: Melatonin 3 MG TABLET 6 MG PO (21:25)
[2022-07-06] MEDS: Atorvastatin Calcium 10 MG TABLET PO (21:25)
[2022-07-06] MEDS: cefTRIAXone sodium 1 GM in 0.9 % Sodium Chloride 50 ML IV (21:26)
[2022-07-07] VITALS: BP 139/66; PULSE 85; RESP 18; TEMP 36.9; O2SAT 96
[2022-07-07 04:00] VITALS: BP 127/66; PULSE 90; RESP 16; TEMP 36.8; O2SAT 95
[2022-07-07] MEDS: Levothyroxine Sodium 25 MCG TABLET PO (06:15)
[2022-07-07 06:33] LABS: INTERNATIONAL NORM RATIO 2.4 (0.9-1.1); Prothrombin Time 28.8 SEC (10.0-13.1)
[2022-07-07 07:10] VITALS: BP 129/77; PULSE 95; RESP 19; TEMP 36.3; O2SAT 95
[2022-07-07 07:38] LABS: Glucose, Whole Blood 131 mg/dL (60-115)
[2022-07-07] MEDS: Furosemide 40 MG TABLET PO ×2 (09:38→17:02)
[2022-07-07] MEDS: Docusate Sodium 100 MG CAPSULE PO ×2 (09:38→20:31)
[2022-07-07] MEDS: Metoprolol Succinate ER 50 MG TAB.ER.24H 150 MG PO (09:39)
[2022-07-07] MEDS: 0.9 % Sodium Chloride Flush 3 ML SYRINGE IVFLUSH ×3 (09:42→20:32)
--- NOTE | 2022-07-07 09:43 | HO.PM.IMPN ---
Subjective Subjective Date of Service: 07/07/22 Review of Systems seen and examined this morning Still with severe hip pain no further bleeding no fever, chills Physical Exam Vital Signs: Vital Signs: Last Vital Signs Temp 97.3 F 07/07/22 07:10 Pulse 95 07/07/22 07:10 Resp 19 07/07/22 07:10 BP 129/77 07/07/22 07:10 Pulse Ox 95 07/07/22 07:10 O2 Del Method 07/07/22 07:10 O2 Flow Rate 2 07/03/22 06:59 Oxygen Flow Rate 0 07/05/22 20:00 BMI result Body Mass Index 33.3 Appearing in no acute distress lung sounds are clear to auscultation heart regular rate rhythm, clear S1, S2 positive bowel sounds, abdomen is soft, nontender neuro patient is alert x3, no focal deficits Objective Data Active Medications Acetaminophen (Acetaminophen 325 Mg Tablet) 650 mg PO Q6H PRN PRN Reason: Pain, Mild (Pain Scale 1-3) Last Admin: 07/04/22 21:45 Dose: 650 mg Documented By: DIPAK Atorvastatin Calcium (Atorvastatin Calcium 10 Mg Tablet) 10 mg PO BEDTIME [facility] Last Admin: 07/06/22 21:25 Dose: 10 mg Documented By: LOLA Dextrose (Dextrose 50 % 25 Gm/50 Ml Syringe) 25 gm IVPUSH Q15M PRN; Protocol PRN Reason: per Hypoglycemia Standing Ord. Last Admin: 07/02/22 07:41 Dose: 25 gm Documented By: JOSE EDUARDO Docusate Sodium (Docusate Sodium 100 Mg Capsule) 100 mg PO DAILY PRN PRN Reason: Constipation Docusate Sodium (Docusate Sodium 100 Mg Capsule) 100 mg PO BID [facility] Last Admin: 07/07/22 09:38 Dose: 100 mg Documented By: JOSE EDUARDO Furosemide (Furosemide 40 Mg Tablet) 40 mg PO BID@0900,1800 [facility]; Protocol Last Admin: 07/07/22 09:38 Dose: 40 mg Documented By: JOSE EDUARDO Comments: BP-129/77, HR-95 Glucose (Glucose Gel 15 Gm Gel..Gram.) 15 gm PO Q15M PRN; Protocol PRN Reason: per Hypoglycemia Standing Ord. Insulin Glargine (Insulin Glargine,Hum.Rec.Anlog 100 Unit/Ml 10 Ml Vial) 30 unit SUBCUT BEDTIME [facility] Last Admin: 07/06/22 21:25 Dose: Not Given Documented By: LOLA Non-Admin Reason: Patient Refused Insulin Human Lispro (Insulin Lispro 100 Unit/Ml 3 Ml Vial) 0 unit SUBCUT QIDACHS [facility]; Protocol Last Admin: 07/07/22 08:17 Dose: Not Given Documented By: JOSE EDUARDO Non-Admin Reason: No Insulin Coverage Levothyroxine Sodium (Levothyroxine Sodium 25 Mcg Tablet) 25 mcg PO 0630 [facility] Last Admin: 07/07/22 06:15 Dose: 25 mcg Documented By: HUNG Melatonin (Melatonin 3 Mg Tablet) 6 mg PO BEDTIME PRN PRN Reason: Sleep Last Admin: 07/06/22 21:25 Dose: 6 mg Documented By: LOLA Metoprolol Succinate (Metoprolol Succinate Er 50 Mg Tab.Er.24h) 150 mg PO DAILY [facility]; Protocol Last Admin: 07/07/22 09:39 Dose: 150 mg Documented By: JOSE EDUARDO Comments: BP-129/77, HR-95 Ondansetron HCl (Ondansetron Hcl 4 Mg/2 Ml Vial) 4 mg IVPUSH Q8H PRN PRN Reason: Nausea and Vomiting Oxybutynin Chloride (Oxybutynin Chloride Er 5 Mg Tab.Er.24) 10 mg PO DAILY [facility] [place] Last Admin: 07/07/22 09:39 Dose: 10 mg Documented By: JOSE EDUARDO Sodium Chloride (0.9 % Sodium Chloride Flush 3 Ml Syringe) 3 ml IVFLUSH QSHIFT [facility] Last Admin: 07/07/22 09:42 Dose: 3 ml Documented By: JOSE EDUARDO Warfarin Sodium (Warfarin Sodium 2 Mg Tablet) 2 mg PO DAILY@1800 [facility] Last Admin: 07/06/22 16:59 Dose: 2 mg Documented By: HATTIE Labs CBC & Chem 7: 07/03/22 06:05 07/04/22 05:41 Labs: Laboratory Results - last 24 hr 07/06/22 07/06/22 07/06/22 11:48 15:38 19:54 PT INR POC Glucose 242 H 167 H 224 H 09/05/22 09/05/22 05:58 07:16 PT 28.8 H INR 2.4 H POC Glucose 131 H Assessment and Plan (1) Atrial fibrillation with rapid ventricular response: Status: Acute (2) Cellulitis: Status: Acute (3) Hematuria: Status: Acute (4) Pyelonephritis: Status: Acute Plan 81-year-old with past medical history of AFib on Coumadin presents to the hospital with hemorrhage Acute on chronic right hip pain history of severe osteoarthritis repeat xray showing no acute fracture unable to ambulate Seen and evaluated by Orthopedic surgery, patient optimal eyes at this time to undergo surgery for hip osteoarthritis LLE cellulitis Two open wounds with surrounding erythema completed doxycycline Daily dressing 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 - rec outpatient vascular surgery eval Afib w RvR, chronic intermittent continue metoprolol to 150 mg Restart warfarin as hematuria resolved Follow INR Keep on telemetry acute on chronic diastolic CHF exacerbation Transition back to po lasix Monitor intake and output bladder mass on CT scan with hematuria and hydroureter nephrosis s/p cystoscopy 07/01 secondary to hemorrhage from bladder mass and being on aspirin and Coumadin restarted Coumadin pyelonephritis asymmetric right perinephric stranding afebrile, mild leukocytosis completed abx negative urine and blood cultures CKD 3 stable at baseline Acute blood loss anemia H/H stable Hypoglycemia in diabetes type 2 low-dose sliding scale insulin Decrease Lantus to 30 units bedtime diabetic diet Disposition plan for short-term rehab until optimized for hip surgery DVT prophylaxis: SCDs, WarfariN attending - dr. Schaefer patient will need hospital stay to continue management for AFib RVR, CHF exacerbation, hematuria, pyelonephritis, cellulitis to prevent possible decompensation into sepsis and renal failure Quality Stroke Does the patient have a stroke diagnosis?: No VTE Prior VTE?: No VTE Risk Level:: Medical - moderate - high VTE Device Contraindication: N/A - Device Ordered VTE Drug Contraindication: Treatment Not Indicated
[2022-07-07 11:10] VITALS: BP 131/66; PULSE 88; RESP 19; TEMP 36.3; O2SAT 97
[2022-07-07 11:42] LABS: Glucose, Whole Blood 173 mg/dL (60-115)
[2022-07-07] MEDS: Insulin Lispro 100 UNIT/ML 3 ML VIAL SUBCUT ×2 (11:59→20:34)
--- NOTE | 2022-07-07 13:13 | MHC.CM.PN ---
Addendum entered by Veronica Kinsey 07/07/22 13:23: DP home with new [facility]. Family vs BLS transport. Original Note: Female 81 DX Bladder Mass/Hemorrhage Hematuria has stopped. Dr Hines has evaluated the case. Patient's A1C is elevated. She also has a wound requiring assessment and dressing changes. For these reasons, the Surgical intervention (HIP) will be scheduled out patient.
[2022-07-07 15:16] VITALS: BP 127/60; PULSE 98; RESP 19; TEMP 36.7; O2SAT 98
[2022-07-07 16:20] LABS: Glucose, Whole Blood 149 mg/dL (60-115)
[2022-07-07] MEDS: Warfarin Sodium 2 MG TABLET PO (16:58)
[2022-07-07] MEDS: Acetaminophen 325 MG TABLET 650 MG PO (17:20)
[2022-07-07 20:00] VITALS: BP 134/64; PULSE 93; RESP 20; TEMP 36.6; O2SAT 94
[2022-07-07 20:07] LABS: Glucose, Whole Blood 200 mg/dL (60-115)
[2022-07-07] MEDS: Atorvastatin Calcium 10 MG TABLET PO (20:31)
[2022-07-07] MEDS: Insulin Glargine,Hum.rec.anlog 100 UNIT/ML 10 ML VIAL 30 UNIT SUBCUT (20:35)
[2022-07-08] VITALS (10 sets, daily range): BP systolic 113–157; BP diastolic 55–97; PULSE 68–95; RESP 16–20; TEMP 36.1–36.8; O2SAT 93–97
[2022-07-08] MEDS: Levothyroxine Sodium 25 MCG TABLET PO (05:55)
[2022-07-08 07:08] LABS: INTERNATIONAL NORM RATIO 2.4 (0.9-1.1); Prothrombin Time 28.2 SEC (10.0-13.1)
[2022-07-08 07:38] LABS: Glucose, Whole Blood 123 mg/dL (60-115)
[2022-07-08] MEDS: Metoprolol Succinate ER 50 MG TAB.ER.24H 150 MG PO (09:07)
[2022-07-08] MEDS: 0.9 % Sodium Chloride Flush 3 ML SYRINGE IVFLUSH ×3 (09:08→22:42)
[2022-07-08] MEDS: Furosemide 40 MG TABLET PO ×2 (09:08→16:37)
[2022-07-08] MEDS: Docusate Sodium 100 MG CAPSULE PO ×2 (09:08→22:42)
[2022-07-08] MEDS: Acetaminophen 325 MG TABLET 650 MG PO ×3 (09:09→22:41)
--- NOTE | 2022-07-08 10:14 | HO.PM.IMPN ---
Subjective Subjective Date of Service: 07/08/22 Review of Systems seen and examined this morning Still with severe hip pain no further bleeding no fever, chills Physical Exam Vital Signs: Vital Signs: Last Vital Signs Temp 97.5 F 07/08/22 07:44 Pulse 89 07/08/22 07:43 Resp 20 07/08/22 07:43 BP 141/97 H 07/08/22 07:43 Pulse Ox 96 07/08/22 07:43 O2 Del Method 07/08/22 07:43 O2 Flow Rate 2 07/03/22 06:59 Oxygen Flow Rate 0 07/05/22 20:00 BMI result Body Mass Index 33.3 Appearing in no acute distress lung sounds are clear to auscultation heart regular rate rhythm, clear S1, S2 positive bowel sounds, abdomen is soft, nontender neuro patient is alert x3, no focal deficits Objective Data Active Medications Acetaminophen (Acetaminophen 325 Mg Tablet) 650 mg PO Q6H PRN PRN Reason: Pain, Mild (Pain Scale 1-3) Last Admin: 07/08/22 09:09 Dose: 650 mg Documented By: JOSE EDUARDO Atorvastatin Calcium (Atorvastatin Calcium 10 Mg Tablet) 10 mg PO BEDTIME [facility] Last Admin: 07/07/22 20:31 Dose: 10 mg Documented By: ABDIAS Dextrose (Dextrose 50 % 25 Gm/50 Ml Syringe) 25 gm IVPUSH Q15M PRN; Protocol PRN Reason: per Hypoglycemia Standing Ord. Last Admin: 07/02/22 07:41 Dose: 25 gm Documented By: JOSE EDUARDO Docusate Sodium (Docusate Sodium 100 Mg Capsule) 100 mg PO DAILY PRN PRN Reason: Constipation Docusate Sodium (Docusate Sodium 100 Mg Capsule) 100 mg PO BID [facility] Last Admin: 07/08/22 09:08 Dose: 100 mg Documented By: JOSE EDUARDO Furosemide (Furosemide 40 Mg Tablet) 40 mg PO BID@0900,1800 [facility]; Protocol Last Admin: 07/08/22 09:08 Dose: 40 mg Documented By: JOSE EDUARDO Glucose (Glucose Gel 15 Gm Gel..Gram.) 15 gm PO Q15M PRN; Protocol PRN Reason: per Hypoglycemia Standing Ord. Insulin Glargine (Insulin Glargine,Hum.Rec.Anlog 100 Unit/Ml 10 Ml Vial) 30 unit SUBCUT BEDTIME [facility] Last Admin: 07/07/22 20:35 Dose: 30 unit Documented By: ABDIAS Insulin Human Lispro (Insulin Lispro 100 Unit/Ml 3 Ml Vial) 0 unit SUBCUT QIDACHS [facility]; Protocol Last Admin: 07/08/22 07:48 Dose: Not Given Documented By: JOSE EDUARDO Non-Admin Reason: No Insulin Coverage Levothyroxine Sodium (Levothyroxine Sodium 25 Mcg Tablet) 25 mcg PO 0630 [facility] Last Admin: 07/08/22 05:55 Dose: 25 mcg Documented By: ABDIAS Melatonin (Melatonin 3 Mg Tablet) 6 mg PO BEDTIME PRN PRN Reason: Sleep Last Admin: 07/06/22 21:25 Dose: 6 mg Documented By: LOLA Metoprolol Succinate (Metoprolol Succinate Er 50 Mg Tab.Er.24h) 150 mg PO DAILY [facility]; Protocol Last Admin: 07/08/22 09:07 Dose: 150 mg Documented By: JOSE EDUARDO Ondansetron HCl (Ondansetron Hcl 4 Mg/2 Ml Vial) 4 mg IVPUSH Q8H PRN PRN Reason: Nausea and Vomiting Oxybutynin Chloride (Oxybutynin Chloride Er 5 Mg Tab.Er.24) 10 mg PO DAILY [facility] Last Admin: 07/08/22 09:07 Dose: 10 mg Documented By: JOSE EDUARDO Sodium Chloride (0.9 % Sodium Chloride Flush 3 Ml Syringe) 3 ml IVFLUSH QSHIFT [facility] Last Admin: 07/08/22 09:08 Dose: 3 ml Documented By: JOSE EDUARDO Warfarin Sodium (Warfarin Sodium 2 Mg Tablet) 2 mg PO DAILY@1800 [facility] Last Admin: 07/07/22 16:58 Dose: 2 mg Documented By: JOSE EDUARDO Labs CBC & Chem 7: 07/03/22 06:05 07/04/22 05:41 Labs: Laboratory Results - last 24 hr 07/07/22 07/07/22 07/07/22 11:13 16:09 19:51 PT INR POC Glucose 173 H 149 H 200 H 07/08/22 07/08/22 06:39 07:22 PT 28.2 H INR 2.4 H POC Glucose 123 H Assessment and Plan (1) Atrial fibrillation with rapid ventricular response: Status: Acute (2) Cellulitis: Status: Acute (3) Hematuria: Status: Acute (4) Pyelonephritis: Status: Acute Plan 81-year-old with past medical history of AFib on Coumadin presents to the hospital with hemorrhage Vtach 14 beat run this morning Asymptomatic Cardiology aware check lytes Continue on metoprolol Acute on chronic right hip pain history of severe osteoarthritis repeat xray showing no acute fracture unable to ambulate Seen and evaluated by Orthopedic surgery, patient optimal eyes at this time to undergo surgery for hip osteoarthritis b oob bed with physical therapy LLE cellulitis Two open wounds with surrounding erythema completed doxycycline Daily dressing with aquacel 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 - rec outpatient vascular surgery eval Afib w RvR, chronic intermittent continue metoprolol to 150 mg Restart warfarin as hematuria resolved Follow INR Keep on telemetry acute on chronic diastolic CHF exacerbation Transition back to po lasix Monitor intake and output bladder mass on CT scan with hematuria and hydroureter nephrosis s/p cystoscopy 07/01 secondary to hemorrhage from bladder mass and being on aspirin and Coumadin restarted Coumadin pyelonephritis asymmetric right perinephric stranding afebrile, mild leukocytosis completed abx negative urine and blood cultures CKD 3 stable at baseline Acute blood loss anemia H/H stable Hypoglycemia in diabetes type 2 low-dose sliding scale insulin Decrease Lantus to 30 units bedtime diabetic diet Disposition plan for short-term rehab until optimized for hip surgery DVT prophylaxis: SCDs, WarfariN attending - dr. Aaron patient will need hospital stay to continue management for AFib RVR, CHF exacerbation, hematuria, pyelonephritis, cellulitis to prevent possible decompensation into sepsis and renal failure Quality Stroke Does the patient have a stroke diagnosis?: No VTE Prior VTE?: No VTE Risk Level:: Medical - moderate - high VTE Device Contraindication: N/A - Device Ordered VTE Drug Contraindication: Treatment Not Indicated
[2022-07-08 11:26] LABS: Glucose, Whole Blood 174 mg/dL (60-115)
--- NOTE | 2022-07-08 12:15 | P.CONCA_ITS ---
History of Present Illness History of Present Illness Date of Service: 07/08/22 Chief complaint: Nonsustained VT Narrative: 81-year-old female who has been in the hospital for few days and has background of AFib on Coumadin. She had 14 beats of ventricular tachycardia on telemetry and we were asked to comment about that. Patient is completely asymptomatic currently. Denying any palpitations, chest pain or shortness of breath. It appears she was admitted with multiple complaints including hip pain due to arthritis as well as hematuria for which she had cystoscopy revealing bladder mass. Denying any congestive heart failure symptoms currently. No other issues on telemetry. REPLACED BY [facility] Past Medical History Medical History Atrial fibrillation CAD (coronary artery disease) CKD (chronic kidney disease) Congestive heart failure Diabetes Hypertension Hypothyroidism Hypotonic neurogenic bladder PAF (paroxysmal atrial fibrillation) Urinary incontinence Family History Family History Father Hx of angina pectoris Myocardial infarction Mother Ovarian cancer Stomach cancer Maternal Grandfather Hardening of the arteries of the heart Surgical History Surgical History H/O heart artery stent H/O nasal polypectomy History of tonsillectomy and adenoidectomy History of tubal ligation Hx of cholecystectomy Social History Social History Household Members: Children Household Members Other:: daughter Housing: House Do you presently have visiting nurse or other home services: No Alcohol intake: never Patient Tobacco Use Status: Never used Tobacco Second Hand Smoke Exposure: No service: No Current occupational status: [employer] Allergies Allergy/AdvReac Type Severity Reaction Status Date / Time No Known Allergies Allergy Verified 06/26/22 13:07 [No Known Allergies*] Active Medications: Current Medications Acetaminophen (Acetaminophen 325 Mg Tablet) 650 mg PO Q6H PRN PRN Reason: Pain, Mild (Pain Scale 1-3) Last Admin: 07/08/22 09:09 Dose: 650 mg Atorvastatin Calcium (Atorvastatin Calcium 10 Mg Tablet) 10 mg PO BEDTIME SUN Last Admin: 07/07/22 20:31 Dose: 10 mg Dextrose (Dextrose 50 % 25 Gm/50 Ml Syringe) 25 gm IVPUSH Q15M PRN; Protocol PRN Reason: per Hypoglycemia Standing Ord. Last Admin: 07/02/22 07:41 Dose: 25 gm Docusate Sodium (Docusate Sodium 100 Mg Capsule) 100 mg PO DAILY PRN PRN Reason: Constipation Docusate Sodium (Docusate Sodium 100 Mg Capsule) 100 mg PO BID [facility] Last Admin: 07/08/22 09:08 Dose: 100 mg Furosemide (Furosemide 40 Mg Tablet) 40 mg PO BID@0900,1800 [facility]; Protocol Last Admin: 07/08/22 09:08 Dose: 40 mg Glucose (Glucose Gel 15 Gm Gel..Gram.) 15 gm PO Q15M PRN; Protocol PRN Reason: per Hypoglycemia Standing Ord. Insulin Glargine (Insulin Glargine,Hum.Rec.Anlog 100 Unit/Ml 10 Ml Vial) 30 unit SUBCUT BEDTIME [facility] Last Admin: 07/07/22 20:35 Dose: 30 unit Insulin Human Lispro (Insulin Lispro 100 Unit/Ml 3 Ml Vial) 0 unit SUBCUT QIDACHS [facility]; Protocol Last Admin: 07/08/22 07:48 Dose: Not Given Levothyroxine Sodium (Levothyroxine Sodium 25 Mcg Tablet) 25 mcg PO 0630 [facility] Last Admin: 07/08/22 05:55 Dose: 25 mcg Melatonin (Melatonin 3 Mg Tablet) 6 mg PO BEDTIME PRN PRN Reason: Sleep Last Admin: 07/06/22 21:25 Dose: 6 mg Metoprolol Succinate (Metoprolol Succinate Er 50 Mg Tab.Er.24h) 150 mg PO DAILY [facility]; Protocol Last Admin: 07/08/22 09:07 Dose: 150 mg Ondansetron HCl (Ondansetron Hcl 4 Mg/2 Ml Vial) 4 mg IVPUSH Q8H PRN PRN Reason: Nausea and Vomiting Oxybutynin Chloride (Oxybutynin Chloride Er 5 Mg Tab.Er.24) 10 mg PO DAILY [facility] Last Admin: 07/08/22 09:07 Dose: 10 mg Sodium Chloride (0.9 % Sodium Chloride Flush 3 Ml Syringe) 3 ml IVFLUSH QSHIFT [facility] Last Admin: 07/08/22 09:08 Dose: 3 ml Warfarin Sodium (Warfarin Sodium 2 Mg Tablet) 2 mg PO DAILY@1800 [facility] Last Admin: 07/07/22 16:58 Dose: 2 mg Home Medications Medication Instructions Recorded Confirmed Last Taken Type levothyroxine 25 mcg tablet 25 mcg PO DAILY 09/05/20 06/27/22 Unknown History oxybutynin chloride 10 mg 10 mg PO DAILY 09/05/20 06/27/22 Unknown History tablet,extended release 24 hr insulin glargine 100 unit/mL (3 40 unit subcut BEDTIME 10/14/20 06/27/22 Unknown History mL) subcutaneous pen (Lantus Solostar U-100 Insulin) aspirin 81 mg tablet,delayed 81 mg PO DAILY 09/11/21 06/27/22 Unknown History release vit 1 cap PO DAILY 09/11/21 06/27/22 Unknown History C,E,zinc,Sj-jzbgs-5-lutein-zeaxanthin 250 mg-2.5 mg-0.5 mg capsule pen needle, diabetic 32 gauge x #50 ea 12/31/21 06/27/22 Unknown History (BD Cathy 2nd Gen Pen Needle) atorvastatin 10 mg tablet 10 mg PO BEDTIME 02/06/22 06/27/22 Unknown History ciprofloxacin HCl 500 mg tablet 1 tab PO DAILY PRN Catheter 06/27/22 06/27/22 Unknown History Insertion Physical Exam Vital Signs: Vital Signs: Last Vital Signs Temp 97.8 F 07/08/22 11:28 Pulse 95 07/08/22 11:28 Resp 20 07/08/22 11:28 BP 157/82 H 07/08/22 11:28 Pulse Ox 95 07/08/22 11:28 O2 Del Method 07/08/22 11:28 O2 Flow Rate 2 07/03/22 06:59 Oxygen Flow Rate 0 07/05/22 20:00 BMI result Body Mass Index 33.3 GENERAL APPEARANCE: in no acute distress, pleasant. NECK: no carotid bruit, no jugular venous distention. SKIN: no suspicious lesions, warm and dry. HEART: systolic murmur aortic area, irregularly regular rate and rhythm. LUNGS: clear to auscultation bilaterally. ABDOMEN: soft, nontender. EXTREMITIES: no edema. PERIPHERAL PULSES: equal. NEUROLOGIC: No gross deficits, AAO X 3 Objective Labs and Meds Result diagrams: 07/03/22 06:05 07/04/22 05:41 Lab results: Laboratory Results - last 24 hr 07/07/22 07/07/22 07/08/22 16:09 19:51 06:39 PT 28.2 H INR 2.4 H POC Glucose 149 H 200 H 07/08/22 07/08/22 07:22 11:09 PT INR POC Glucose 123 H 174 H Imaging Comment: Echo 06/17/22: - The left ventricular systolic function is mildly decreased.? ? The visually estimated ejection fraction is between 45-50%.? ? ? - The basal inferior segment is hypokinetic. ? - There is mildly decreased right ventricular systolic function. - The left atrium is moderately dilated. ? - There is mild to moderate aortic valve stenosis. ? - There is moderate mitral annular calcification.? There is mild to moderate mitral valve regurgitation.? ?? Assessment and Plan (1) NSVT (nonsustained ventricular tachycardia): Status: Acute Plan 81-year-old female with background history of congestive heart failure and chronic atrial fibrillation who has been admitted with hip pain as well as hematuria. Overall she is stable at this stage. She had 14 beat run of nonsustained VT on telemetry. She has been completely asymptomatic. No chest pain or shortness of breath. Clinically not in heart failure. Increasing Toprol-XL to 200 mg once a day. Please monitor potassium and magnesium closely. Her echocardiography has shown EF of 45-50% with regional wall motion abnormalities in the basal inferior wall. Continue monitoring on telemetry. We will follow along with you. Thank you for allowing me to participate in the care of your patient. Please feel free to contact me if you have any questions. Procedures Date of Service Date of Service: 07/08/22
[2022-07-08] MEDS: Insulin Lispro 100 UNIT/ML 3 ML VIAL SUBCUT ×2 (12:57→22:41)
--- NOTE | 2022-07-08 13:40 | MHC.CM.PN ---
Patient has been accepted at [facility]; CM has requested that [facility] initiate the authorization process with [employer]. HEMMER CHAINSTITCH made aware and CM will follow.
[2022-07-08 14:09] LABS: Anion Gap 15 (12-20); Blood Urea Nitrogen 26 mg/dL (9-16); Calcium 8.3 mg/dL (8.4-10.2); Carbon Dioxide 28 mmol/L (22-29); Chloride 101 mmol/L (96-108); Creatinine Clr Calc Pharmacy 35.8; Estimated Glomerular Filt Rate 37; Glucose Random 175 mg/dL (60-115); Potassium 3.7 mmol/L (3.3-5.1); Sodium 140 mmol/L (135-145)
[2022-07-08] MEDS: Metoprolol Succinate ER 50 MG TAB.ER.24H PO (14:11)
[2022-07-08 16:03] LABS: Glucose, Whole Blood 124 mg/dL (60-115)
--- NOTE | 2022-07-08 16:22 | P.DS_ITS ---
DS: Providers Provider Date of admission: 06/27/22 20:08 Primary care physician: Nano Delaney MD Consults: 06/28/22 08:12 Consult to Urology Routine Consulting Provider: Keith Sharma Reason for consultation: Bladder mass, hematuria, hydrouretronephrosis 06/29/22 09:42 Consult to General Surgery Routine Consulting Provider: Bev Nino Reason for consultation: LLE wound for eval and rec. 07/05/22 11:06 Consult to Orthopedics Routine Consulting Provider: German Hines Reason for consultation: Severe osteoarthritis, still with pain and difficulty ambulation Has provider been notified: No 07/08/22 10:13 Consult to Cardiology Routine Consulting Provider: Anthony Caceres Reason for consultation: 14 beat run vtach Has provider been notified: No DS: Diagnosis Discharge Diagnosis (1) NSVT (nonsustained ventricular tachycardia): Status: Acute DS: Summary Hospital Course Hospital Course: 81-year-old? with past medical history of AFib on Coumadin presents to the hospital with hemorrhage Vtach. Only one episode no further after that 14 beat run this morning Asymptomatic Cardiology aware Continue on metoprolol XL 200 mg daily as per cardiology Acute on chronic right hip pain history of severe osteoarthritis repeat xray showing no acute fracture unable to ambulate Seen and evaluated by Orthopedic surgery, patient not optimal at this time to undergo surgery for hip osteoarthritis, physical therapy and rehab and orthopedic surgery team to reassess as an outpatient LLE cellulitis Two? open wounds with surrounding erythema completed doxycycline Daily dressing with aquacel 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 - rec outpatient vascular surgery eval Afib w RvR, chronic intermittent. Resolved continue metoprolol to 150 mg Restart warfarin as hematuria resolved Follow INR Keep on telemetry acute on chronic diastolic CHF exacerbation. Resolved Transitioned back to po lasix bladder mass on CT scan with hematuria and hydroureter nephrosis s/p cystoscopy 07/01 secondary to hemorrhage from bladder mass and being on aspirin and Coumadin restarted Coumadin pyelonephritis asymmetric right perinephric stranding afebrile,? mild leukocytosis completed abx negative urine and blood cultures CKD 3 stable at baseline Acute blood loss anemia Remained H/H stable Hypoglycemia in diabetes type 2 low-dose sliding scale insulin has been initiated Decreased Lantus to 30 units bedtime Time Spent with Patient Time attestation: Total time spent providing and/or coordinating discharge services: Physical Exam Vital Signs: Vital Signs: Last Vital Signs Temp 98.0 F 07/08/22 15:05 Pulse 80 07/08/22 15:05 Resp 18 07/08/22 15:05 BP 123/60 07/08/22 15:05 Pulse Ox 97 07/08/22 15:05 O2 Del Method 07/08/22 15:05 O2 Flow Rate 2 07/03/22 06:59 Oxygen Flow Rate 0 07/05/22 20:00 BMI result Body Mass Index 33.3 DS: Data Data Completed and Pending Labs on day of discharge: Laboratory Results - last 24 hr 07/07/22 07/08/22 07/08/22 19:51 06:39 07:22 PT 28.2 H INR 2.4 H Sodium Potassium Chloride Carbon Dioxide Anion Gap BUN Creatinine Estim Creat Clear Calc Estimated GFR POC Glucose 200 H 123 H Random Glucose Calcium 07/08/22 07/08/22 07/08/22 11:09 13:48 15:55 PT INR Sodium 140 Potassium 3.7 Chloride 101 Carbon Dioxide 28 Anion Gap 15 BUN 26 H Creatinine 1.37 Estim Creat Clear Calc 35.8 Estimated GFR 37 POC Glucose 174 H 124 H Random Glucose 175 H Calcium 8.3 L Discharge Plan Discharge Patient Disposition: er Inpatient Rehab Fac Discharge Diagnosis: Acute chronic right hip pain Left lower extremity cellulitis Atrial fibrillation with rapid ventricular response, chronic intermittent Acute on chronic diastolic congestive heart failure exacerbation Hematuria Hydroureter nephrosis Bladder mass status post cystoscopy and removal Pyelonephritis Acute blood loss anemia Hypoglycemia Referrals: [facility] [Outside] - 1 Week Nano Delaney MD [Primary Care Provider] - 1 Week Discharge Medications: New warfarin [Jantoven] 2 mg Tablet 2 mg PO DAILY@1800 Qty: 30 0RF Continued amlodipine 5 mg tablet 5 mg PO DAILY 90 Days Qty: 90 0RF metoprolol succinate 50 mg tablet extended release 24 hr 100 mg PO DAILY 90 Days Qty: 180 3RF Rx Instructions: 2 tablets daily insulin glargine [Lantus Solostar U-100 Insulin] 100 unit/mL (3 mL) insulin pen 40 unit subcut BEDTIME furosemide 40 mg Tablet 40 mg PO BID@0900,1800 30 Days Qty: 60 0RF Protocol: Hold for SBP< HOLD for SBP < : 90 ciprofloxacin HCl 500 mg tablet 1 tab PO DAILY PRN (Reason: Catheter Insertion) levothyroxine 25 mcg tablet 25 mcg PO DAILY oxybutynin chloride 10 mg tablet extended release 24hr 10 mg PO DAILY aspirin 81 mg tablet,delayed release (DR/EC) 81 mg PO DAILY vit C,E,Zn,Qf-esjvt5-axn-zeax 250-2.5-0.5 mg capsule 1 cap PO DAILY (DME) pen needle, diabetic [BD Cathy 2nd Gen Pen Needle] 32 gauge x 5/32 needle See Rx Instructions subcut DAILY Qty: 50 Rx Instructions: As directed atorvastatin 10 mg tablet 10 mg PO BEDTIME Discontinued warfarin 1 mg tablet 1 mg PO DAILY 30 Days Qty: 45 5RF Protocol: Dose Management Condition: Thursday (Week One) Dose/Route: 2 mg Instruction: 2 x 1 mg tablets Condition: Thursday Dose/Route: 1 mg Instruction: 1 x 1 mg tablet Condition: Thursday Dose/Route: 2 mg Instruction: 2 x 1 mg tablets Condition: Thursday Dose/Route: 1 mg Instruction: 1 x 1 mg tablet Condition: Dose/Route: 1 mg Instruction: 1 x 1 mg tablet Condition: Thursday Dose/Route: 1 mg Instruction: 1 x 1 mg tablet Condition: Thursday Dose/Route: 1 mg Instruction: 1 x 1 mg tablet Condition: Thursday (Week Two) Dose/Route: 2 mg Instruction: 2 x 1 mg tablets Condition: Thursday Dose/Route: 1 mg Instruction: 1 x 1 mg tablet Condition: Thursday Dose/Route: 2 mg Instruction: 2 x 1 mg tablets Condition: Thursday Dose/Route: 1 mg Instruction: 1 x 1 mg tablet Condition: Dose/Route: 2 mg Instruction: 2 x 1 mg tablets Condition: Thursday Dose/Route: 1 mg Instruction: 1 x 1 mg tablet Condition: Thursday Dose/Route: 1 mg Instruction: 1 x 1 mg tablet Protocol Text: Adjustment Start Date: 06/26/22 INR Value: 3.5 INR Date: 06/26/22 Recheck Date: 07/10/22 Additional Instructions: take 1mg today then cont reg dosing eat greens to lower inr no red fruit/orange veg for 2 days call with medication changes Rx Instructions: Take as directed by the coumadin clinic Diet: Advance to usual diet Activity on Discharge: As tolerated Stand Alone Forms: Patient Portal Discharge page Print Language: Latvian Care Plan Goals: Resolution of symptoms, optimized Health for hip surgery Health Concerns: Acute chronic right hip pain Left lower extremity cellulitis Atrial fibrillation with rapid ventricular response, chronic intermittent Acute on chronic diastolic congestive heart failure exacerbation Hematuria Hydroureter nephrosis Bladder mass status post cystoscopy and removal Pyelonephritis Acute blood loss anemia Hypoglycemia Plan of Treatment: Follow-up with your primary care provider as needed Take all medications as prescribed You will be going to short-term rehab, in terms of your severe oseoarthritis the plan moving forward would be to do elective surgery once your health is optimized Assessment: See discharge summary
[2022-07-08] MEDS: Warfarin Sodium 2 MG TABLET PO (16:37)
[2022-07-08 19:54] LABS: Glucose, Whole Blood 192 mg/dL (60-115)
[2022-07-08 20:17] LABS: COVID-19 Test Negative (Negative); IDNOW Serial# 08D9AD1C
[2022-07-08] MEDS: Insulin Glargine,Hum.rec.anlog 100 UNIT/ML 10 ML VIAL 30 UNIT SUBCUT (22:41)
[2022-07-08] MEDS: Atorvastatin Calcium 10 MG TABLET PO (22:42)
[2022-07-09 03:44] VITALS: BP 113/67; PULSE 82; RESP 20; TEMP 36.9; O2SAT 98
[2022-07-09] MEDS: Levothyroxine Sodium 25 MCG TABLET PO (05:59)
[2022-07-09 06:58] LABS: INTERNATIONAL NORM RATIO 2.7 (0.9-1.1); Prothrombin Time 32.8 SEC (10.0-13.1)
[2022-07-09 07:22] LABS: Glucose, Whole Blood 81 mg/dL (60-115)
[2022-07-09 07:32] VITALS: BP 137/97; PULSE 92; RESP 20; TEMP 36.2; O2SAT 96
--- NOTE | 2022-07-09 08:05 | PM.EVENT ---
Event Note Date of Service: 07/09/22 Event Note: Patient HGA1C 8.8- needs to be 7 or below to proceed with NIR Patient also has a wound on her leg that needs healing Dyan will continue to follow patient to track progress for surgery.
--- NOTE | 2022-07-09 09:58 | MHC.CM.PN ---
Per MD, Patient is medically cleared for dc to [facility] today. Patient will dc to her first choice SNF[facility] today at 11:30 via [facility]. Daughter/HCP/Danielle @ [phone] and Patient are aware of and in agreement with the dc plan. CM addressed IMM with Patient at bedside and the original has been given to her and a copy has been placed on the chart.
--- NOTE | 2022-07-09 10:42 | PM.DS ---
DS: Providers Provider Date of Service: 07/09/22 Date of admission: 06/27/22 20:08 Date of discharge: 07/09/22 Primary care physician: Nano Delaney MD Consults: 06/28/22 08:12 Consult to Urology Routine Consulting Provider: Ketih Sharma Reason for consultation: Bladder mass, hematuria, hydrouretronephrosis 06/29/22 09:42 Consult to General Surgery Routine Consulting Provider: Bev Nino Reason for consultation: LLE wound for eval and rec. 07/05/22 11:06 Consult to Orthopedics Routine Consulting Provider: German Hines Reason for consultation: Severe osteoarthritis, still with pain and difficulty ambulation Has provider been notified: No 07/08/22 10:13 Consult to Cardiology Routine Consulting Provider: Anthony Caceres Reason for consultation: 14 beat run vtach Has provider been notified: No DS: Transfer Hospital Acceptance Name of Facility: [facility] DS: Diagnosis Discharge Diagnosis (1) NSVT (nonsustained ventricular tachycardia): Status: Acute (2) Hematuria: Status: Acute (3) Atrial fibrillation: Status: Acute (4) CKD (chronic kidney disease): Status: Acute (5) Diabetes: Status: Acute (6) Cellulitis: Status: Acute (7) Acute CHF: Status: Acute (8) Hip pain: Status: Acute DS: Summary Hospital Course Hospital Course: 81-year-old? with past medical history of AFib on Coumadin presents to the hospital with hematuria bladder mass on CT scan with hematuria s/p cystoscopy 07/01 secondary to hemorrhage from bladder mass and being on aspirin and Coumadin hematuria resolved and patient restarted on Coumadin home dose Acute on chronic right hip pain history of severe osteoarthritis repeat xray showing no acute fracture unable to ambulate Seen and evaluated by Orthopedic surgery, patient not optimal at this time to undergo surgery for hip osteoarthritis, physical therapy and rehab and orthopedic surgery team to reassess as an outpatient LLE cellulitis, lower extremity Two? open wounds with surrounding erythema completed doxycycline Daily dressing with aquacel 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 - rec outpatient vascular surgery eval Vtach only one episode through hospitalisation 14 beat run this morning Asymptomatic Cardiology was made aware Increased metoprolol XL to 200 mg daily as per cardiology Afib w RvR, chronic intermittent. Resolved continue metoprolol Restart warfarin as hematuria resolved ; goal INR 2-3 Follow INR acute on chronic diastolic CHF exacerbation. Resolved Transitioned back to po lasix Pyelonephritis asymmetric right perinephric stranding afebrile,? mild leukocytosis completed abx negative urine and blood cultures CKD 3 stable at baseline Acute blood loss anemia Remained H/H stable Hypoglycemia in diabetes type 2 low-dose sliding scale insulin has been initiated Decreased Lantus to 30 units bedtime Status at Discharge Overall status at discharge: patient is back to baseline Time Spent with Patient Time attestation: Total time spent providing and/or coordinating discharge services: Discharge coordination time: Greater than 30 minutes Quality: Safe Use of Opioids Does Pt have an Active Cancer Diagnosis on the Problem List?: No Quality: Stroke Does the patient have a stroke diagnosis?: No Physical Exam Vital Signs: Vital Signs: Last Vital Signs Temp 97.1 F 07/09/22 07:32 Pulse 92 07/09/22 07:32 Resp 20 07/09/22 07:32 BP 137/97 H 07/09/22 07:32 Pulse Ox 96 07/09/22 07:32 O2 Del Method 07/09/22 07:32 O2 Flow Rate 2 07/03/22 06:59 Oxygen Flow Rate 0 07/05/22 20:00 BMI result Body Mass Index 33.3 patient seen sitting up in bed in no distress neck is supple patient rhythm is regular, S1-S2 heard bilateral equal breath sounds,no wheezing or crackles appreciated abdomen soft and tender to palpation urinary catheter present patient is awake, alert and oriented to self, place and person, no focal weakness DS: Data Data Completed and Pending Labs on day of discharge: Laboratory Results - last 24 hr 07/08/22 07/08/22 07/08/22 11:09 13:48 15:55 PT INR Sodium 140 Potassium 3.7 Chloride 101 Carbon Dioxide 28 Anion Gap 15 BUN 26 H Creatinine 1.37 Estim Creat Clear Calc 35.8 Estimated GFR 37 POC Glucose 174 H 124 H Random Glucose 175 H Calcium 8.3 L COVID-19 (JONEL) COVID-19 Clin Com 07/08/22 07/08/22 07/09/22 19:05 19:47 05:49 PT 32.8 H INR 2.7 H Sodium Potassium Chloride Carbon Dioxide Anion Gap BUN Creatinine Estim Creat Clear Calc Estimated GFR POC Glucose 192 H Random Glucose Calcium COVID-19 (JONEL) Negative COVID-19 Clin Com See Note 07/09/22 07:06 PT INR Sodium Potassium Chloride Carbon Dioxide Anion Gap BUN Creatinine Estim Creat Clear Calc Estimated GFR POC Glucose 81 Random Glucose Calcium COVID-19 (JONEL) COVID-19 Clin Com Imaging Abdominal x-ray: Radiologist's impression: ITS Impressions Pelvis Ultrasound 06/27/22 15:05 IMPRESSION: * Limited, nondiagnostic pelvic imaging examination. * Urinary bladder is underdistended and contains a suprapubic catheter. Abdomen/Pelvis CT 06/27/22 17:44 IMPRESSION: 1. Diffusely thick-walled urinary bladder with suprapubic tube in place and high density material in the bladder lumen compatible with hemorrhage and/or bladder mass. 2. Moderate right and mild left hydroureteronephrosis with mild asymmetric right perinephric stranding. 3. Small amount of layering high-density material within the right renal collecting system, consistent with hemorrhage. 4. Mildly enlarged right iliac chain lymph node, nonspecific may be reactive or neoplastic. 5. 1.6 cm indeterminate left adrenal nodule, present on prior chest CT 10/13/2020 suggesting benign etiology such as adenoma. Chest X-Ray 06/28/22 07:10 IMPRESSION: No significant acute parenchymal disease identified. Guidance Fluoroscopy 07/01/22 18:10 IMPRESSION: Fluoroscopy for urologic procedure. Duplex Scan Lower Extremity Artery 07/02/22 17:00 IMPRESSION: There is no clear diastolic flow reversal at the level of the popliteal artery or proximal posterior tibial artery suggestive of some degree of distal arterial disease. Pelvis X-Ray 07/04/22 12:26 IMPRESSION: Severe right hip arthritis. Moderate left hip arthritis. No acute fracture or dislocation. Additional degenerative/arthritic changes as above. Discharge Plan Discharge Patient Disposition: Xfer Inpatient Rehab Fac Discharge Diagnosis: Acute chronic right hip pain Left lower extremity cellulitis Atrial fibrillation with rapid ventricular response, chronic intermittent Acute on chronic diastolic congestive heart failure exacerbation Hematuria Hydroureter nephrosis Bladder mass status post cystoscopy and removal Pyelonephritis Acute blood loss anemia Hypoglycemia Referrals: Puja Marin [facility] [Outside] - 1 Week Nano Delaney MD [Primary Care Provider] - 1 Week Discharge Medications: New metoprolol succinate 100 mg Tablet Extended Release 24 Hr 200 mg PO DAILY Qty: 15 0RF Protocol: Hold for SBP/HR < HOLD for SBP < : 90 HOLD for HR < : 60 warfarin [Novtoven] 1 mg Tablet 1 mg PO Q48H Qty: 15 0RF warfarin [Novtoven] 2 mg Tablet 2 mg PO Q48H Qty: 15 0RF insulin glargine [Lantus U-100 Insulin] 100 unit/mL Solution 30 unit subcut BEDTIME Qty: 15 0RF Continued amlodipine 5 mg tablet 5 mg PO DAILY 90 Days Qty: 90 0RF furosemide 40 mg Tablet 40 mg PO BID@0900,1800 30 Days Qty: 60 0RF Protocol: Hold for SBP< HOLD for SBP < : 90 levothyroxine 25 mcg tablet 25 mcg PO DAILY oxybutynin chloride 10 mg tablet extended release 24hr 10 mg PO DAILY aspirin 81 mg tablet,delayed release (DR/EC) 81 mg PO DAILY vit C,E,Zn,Dx--gjj-zeax 250-2.5-0.5 mg capsule 1 cap PO DAILY (DME) pen needle, diabetic [BD Cathy 2nd Gen Pen Needle] 32 gauge x 5/32 needle See Rx Instructions subcut DAILY Qty: 50 Rx Instructions: As directed atorvastatin 10 mg tablet 10 mg PO BEDTIME Discontinued warfarin 1 mg tablet 1 mg PO DAILY 30 Days Qty: 45 5RF Protocol: Dose Management Condition: Thursday (Week One) Dose/Route: 2 mg Instruction: 2 x 1 mg tablets Condition: Thursday Dose/Route: 1 mg Instruction: 1 x 1 mg tablet Condition: Thursday Dose/Route: 2 mg Instruction: 2 x 1 mg tablets Condition: Thursday Dose/Route: 1 mg Instruction: 1 x 1 mg tablet Condition: Dose/Route: 1 mg Instruction: 1 x 1 mg tablet Condition: Thursday Dose/Route: 1 mg Instruction: 1 x 1 mg tablet Condition: Thursday Dose/Route: 1 mg Instruction: 1 x 1 mg tablet Condition: Thursday (Week Two) Dose/Route: 2 mg Instruction: 2 x 1 mg tablets Condition: Thursday Dose/Route: 1 mg Instruction: 1 x 1 mg tablet Condition: Thursday Dose/Route: 2 mg Instruction: 2 x 1 mg tablets Condition: Thursday Dose/Route: 1 mg Instruction: 1 x 1 mg tablet Condition: Dose/Route: 2 mg Instruction: 2 x 1 mg tablets Condition: Thursday Dose/Route: 1 mg Instruction: 1 x 1 mg tablet Condition: Thursday Dose/Route: 1 mg Instruction: 1 x 1 mg tablet Protocol Text: Adjustment Start Date: 06/26/22 INR Value: 3.5 INR Date: 06/26/22 Recheck Date: 07/10/22 Additional Instructions: take 1mg today then cont reg dosing eat greens to lower inr no red fruit/orange veg for 2 days call with medication changes Rx Instructions: Take as directed by the coumadin clinic metoprolol succinate 50 mg tablet extended release 24 hr 100 mg PO DAILY 90 Days Qty: 180 3RF Rx Instructions: 2 tablets daily insulin glargine [Lantus Solostar U-100 Insulin] 100 unit/mL (3 mL) insulin pen 40 unit subcut BEDTIME ciprofloxacin HCl 500 mg tablet 1 tab PO DAILY PRN (Reason: Catheter Insertion) Discharge Orders: Discharge Order (Routine); Ordered 07/09/22 Ordered By: Sandy Porter Diet: Advance to usual diet Activity on Discharge: As tolerated Stand Alone Forms: Patient Portal Discharge page Print Language: Faroese Care Plan Goals: Resolution of symptoms, optimized Health for hip surgery Health Concerns: Acute chronic right hip pain Left lower extremity cellulitis Atrial fibrillation with rapid ventricular response, chronic intermittent Acute on chronic diastolic congestive heart failure exacerbation Hematuria Hydroureter nephrosis Bladder mass status post cystoscopy and removal Pyelonephritis Acute blood loss anemia Hypoglycemia Plan of Treatment: Follow-up with your primary care provider as needed Take all medications as prescribed You will be going to short-term rehab, in terms of your severe oseoarthritis the plan moving forward would be to do elective surgery once your health is optimized Assessment: See discharge summary
[2022-07-09] MEDS: Furosemide 40 MG TABLET PO (11:17)
[2022-07-09] MEDS: Docusate Sodium 100 MG CAPSULE PO (11:17)
[2022-07-09] MEDS: 0.9 % Sodium Chloride Flush 3 ML SYRINGE IVFLUSH (11:17)
[2022-07-09] MEDS: Metoprolol Succinate ER 100 MG TAB.ER.24H 200 MG PO (11:17)
[2022-07-09 11:27] VITALS: BP 143/98; PULSE 95; RESP 20; TEMP 36.2; O2SAT 95
[2022-07-09 12:12] LABS: Glucose, Whole Blood 154 mg/dL (60-115)
[2022-07-09] MEDS: Insulin Lispro 100 UNIT/ML 3 ML VIAL SUBCUT (12:32)
== END 2022-07-09 12:45 | DRG 813 ==
LOC: HO.ED 19:19 → HO.EDOVER 20:14 → HO.S3 06-28 10:32 → HO.IMC 06-30 16:26 → HO.S3 07-01 19:43 → HO.IMC 07-03 16:08
PROVIDERS: Nurse Practitioner Acute Care; Nurse Practitioner Family; Physician Assistant Medical; Student in an Organized Health Care Education/Training Program; Urology; Admitting Provider Internal Medicine; Emergency Provider Emergency Medicine; PCP Internal Medicine; Visit Provider Student in an Organized Health Care Education/Training Program
PROC: 0TJB8ZZ Inspection of Bladder, Via Natural or Artificial Opening Endoscopic (ICD-10-PCS; CPT 52000; principal; 2022-07-01 16:30)
DX: D68.32 Hemorrhagic disorder due to extrinsic circulating 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 (principal); I50.33 Acute on chronic diastolic (congestive) heart failure; D62 Acute posthemorrhagic anemia; I13.0 Hypertensive heart and chronic kidney disease with heart failure and stage 1 through stage 4 chronic kidney disease, or unspecified chronic kidney disease; N13.6 Pyonephrosis; I47.2 Ventricular tachycardia; L03.116 Cellulitis of left lower limb; L97.929 Non-pressure chronic ulcer of unspecified part of left lower leg with unspecified severity; I25.10 Atherosclerotic heart disease of native coronary artery without angina pectoris; I48.0 Paroxysmal atrial fibrillation; N18.30 Chronic kidney disease, stage 3 unspecified; E11.40 Type 2 diabetes mellitus with diabetic neuropathy, unspecified; E11.22 Type 2 diabetes mellitus with diabetic chronic kidney disease; E11.649 Type 2 diabetes mellitus with hypoglycemia without coma; T45.515A Adverse effect of 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, initial encounter; E11.622 Type 2 diabetes mellitus with other skin ulcer; M16.11 Unilateral primary osteoarthritis, right hip; N32.89 Other specified disorders of bladder; N31.9 Neuromuscular dysfunction of bladder, unspecified; N32.3 Diverticulum of bladder; Z20.822 Contact with and (suspected) exposure to COVID-19; Z79.4 Long term (current) use of insulin; Z79.01 Long term (current) use of 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; Z79.82 Long term (current) use of aspirin; Z79.899 Other long term (current) drug therapy
CPT/HCPCS: 36415; 71045; 72170; 74176; 76856; 80048; 80053; 81001; 82947; 83605; 83735; 83880; 85025; 85027; 85610; 85730; 87040; 87086; 87635; 93926; 97110; 97116; 97162; 97530; 99285; C1758; J0696; J1940; J1956; J2270; J2405; J3010; J3430; Q9965

== ENCOUNTER 2022-07-18 22:22 | Emergency (ER) | payer MEDICARE, SELFPAY ==
[2022-07-18 22:47] VITALS: BP 125/72; PULSE 92; RESP 18; TEMP 36.7; O2SAT 96
[2022-07-18 22:53] VITALS: BP 125/75; PULSE 88; RESP 18; TEMP 36.7; O2SAT 96; BMI 44.4
[2022-07-18 23:13] VITALS: BP 117/73; PULSE 88; O2SAT 95
--- NOTE | 2022-07-18 23:16 | ED_ITS ---
HPI - Female Genitourinary General Chief complaint: Urogenital-Female Stated complaint: SUP/CATH DISLODGED PER EMS FROM SNF Time Seen by Provider: 07/18/22 22:54 Source: patient Mode of arrival: EMS Limitations: no limitations History of Present Illness HPI Narrative: chronic suprapubic cath dislodged this afternoon after being replaced at [facility] - ballon was defective and deflated when it came out. no bleeding, sent to ED for replacement MD elicited complaint: other (needs suprapubic cath) Pertinent past history: other (neurogenic bladder) Onset (ago): hour(s) (several) Location of symptoms: suprapubic Severity: mild Exacerbating factors: none Relieving factors: none Associated symptoms: denies other symptoms and other (states she is soaking herself with urine from opening) Treatment prior to arrival: other (2 failed attempts at placement) Related Data Home Medications Medication Instructions Recorded Confirmed levothyroxine 25 mcg tablet 25 mcg PO DAILY 09/05/20 06/27/22 oxybutynin chloride 10 mg 10 mg PO DAILY 09/05/20 06/27/22 tablet,extended release 24 hr aspirin 81 mg tablet,delayed 81 mg PO DAILY 09/11/21 06/27/22 release vit 1 cap PO DAILY 09/11/21 06/27/22 C,E,zinc,Ka-abysc-8-lutein-zeaxanthin 250 mg-2.5 mg-0.5 mg capsule pen needle, diabetic 32 gauge x #50 ea 12/31/21 06/27/22 5/32 (BD Cathy 2nd Gen Pen Needle) atorvastatin 10 mg tablet 10 mg PO BEDTIME 02/06/22 06/27/22 Previous Rx's Medication Instructions Recorded furosemide 40 mg tablet 40 mg PO BID@0900,1800 30 days #60 10/20/20 tabs amlodipine 5 mg tablet 5 mg PO DAILY 90 days #90 tabs 01/22/22 insulin glargine 100 unit/mL 30 unit (0.3 mL) subcut BEDTIME 07/09/22 subcutaneous solution (Lantus #15 mL U-100 Insulin) metoprolol succinate 100 mg 200 mg PO DAILY #15 tabs 07/09/22 tablet,extended release 24 hr warfarin 1 mg tablet (Jantoven) 1 mg PO Q48H #15 tabs 07/09/22 warfarin 2 mg tablet (Jantoven) 2 mg PO Q48H #15 tabs 07/09/22 Allergies Allergy/AdvReac Type Severity Reaction Status Date / Time No Known Allergies Allergy Verified 06/26/22 13:07 [No Known Allergies*] Review of Systems Review of Systems: Constitutional : No Fever, No Chills, Cardiovascular : No Chest Pain, No SOB Respiratory : No Dyspnea Gastrointestinal : No abdominal pain : pos dislodged catheter Musculoskeletal : No Joint Swelling Skin :positive skin rash Neuro : No Weakness, No Numbness PMFSH Past Medical History Attestation statement: The following information was validated with the patient. Medical History Atrial fibrillation CAD (coronary artery disease) CKD (chronic kidney disease) Congestive heart failure Diabetes Hypertension Hypothyroidism Hypotonic neurogenic bladder Leg wound, left PAF (paroxysmal atrial fibrillation) Urinary incontinence Varicose vein of leg Surgical History H/O heart artery stent H/O nasal polypectomy History of tonsillectomy and adenoidectomy History of tubal ligation Hx of cholecystectomy Family History Family History Father Hx of angina pectoris Myocardial infarction Mother Ovarian cancer Stomach cancer Maternal Grandfather Hardening of the arteries of the heart Social History Social History Household Members: Children Household Members Other:: daughter Housing: House Do you presently have visiting nurse or other home services: No Alcohol intake: never Patient Tobacco Use Status: Never used Tobacco Second Hand Smoke Exposure: No Advance Directives: No service: No Current occupational status: retired Physical Exam Vital Signs: Vital Signs: Last Vital Signs Temp 98.1 F 07/18/22 22:53 Pulse 88 07/18/22 22:53 Resp 18 07/18/22 22:53 BP 125/75 07/18/22 22:53 Pulse Ox 96 07/18/22 22:53 O2 Del Method 07/18/22 22:53 BMI result Body Mass Index 44.4 Appearance: Alert. Oriented X3. No acute distress. Eyes: Pupils equal, round and reactive to light. ENT: Pharynx normal. Neck: Normal inspection. Neck supple. CVS: Pulses normal. Respiratory: No respiratory distress. Abdomen: Soft and nontender. excoriated red yeast like rash near cath site not warm to touch wet with urine - patent suprapubic site seen no blood noted Skin: Skin warm and dry. Normal skin color. Normal skin turgor. Extremities: No lower extremity edema. Neuro: Oriented X 3. No motor deficit. No sensory deficit. MDM - Female Genitourinary MDM Narrative Medical decision making narrative: 81 yo female with CKD, HTN, DM, CAD, neurogenic bladder with suprapubic catheter - states her catheter fell out after being replaced after SNF - has been out since this afternoon. When it fell out the balloon was deflated told it was defective, replaced on arrival to the ED - patient tolerated well no issues - no bleeding no abdominal pain. Easy placement stable for DC back. Procedures Catheter Insertion (Urinary) Date of insertion: 07/18/22 Reason for placing: Yes Reason for placing indwelling catheter: Other (chronic suprapubic catheter) Bladder scan/ultrasound used before catheterization: No Estimated amount of urine (mLs): 500 Antiseptic solution prep: Povidone-Iodine Topical anesthesia used: No Catheter type/location: Suprapubic Size (Thai): 18 Catheter balloon size (mL): 10 Catheter balloon amount: 10 Results: successfully catheterized-immediate flow Procedure performed: without complications Discharge Plan Discharge Clinical Impression: Encounter for care or replacement of suprapubic tube Patient Disposition: Xfer SNF Transfer Details: [facility] Instructions: How to Care for Your Suprapubic Catheter (DC) Additional Instructions: return to ED for any worsening symptoms or concerns Prescriptions: No Action amlodipine 5 mg tablet 5 mg PO DAILY 90 Days Qty: 90 0RF furosemide 40 mg Tablet 40 mg PO BID@0900,1800 30 Days Qty: 60 0RF Protocol: Hold for SBP< HOLD for SBP < : 90 insulin glargine [Lantus U-100 Insulin] 100 unit/mL Solution 30 unit subcut BEDTIME Qty: 15 0RF metoprolol succinate 100 mg Tablet Extended Release 24 Hr 200 mg PO DAILY Qty: 15 0RF Protocol: Hold for SBP/HR < HOLD for SBP < : 90 HOLD for HR < : 60 warfarin [Jantoven] 2 mg Tablet 2 mg PO Q48H Qty: 15 0RF warfarin [Jantoven] 1 mg Tablet 1 mg PO Q48H Qty: 15 0RF levothyroxine 25 mcg tablet 25 mcg PO DAILY oxybutynin chloride 10 mg tablet extended release 24hr 10 mg PO DAILY aspirin 81 mg tablet,delayed release (DR/EC) 81 mg PO DAILY vit C,E,Zn,Ly-ylwdn6-lch-zeax 250-2.5-0.5 mg capsule 1 cap PO DAILY (DME) pen needle, diabetic [BD Cathy 2nd Gen Pen Needle] 32 gauge x 5/32 needle See Rx Instructions subcut DAILY Qty: 50 Rx Instructions: As directed atorvastatin 10 mg tablet 10 mg PO BEDTIME
[2022-07-19 09:52] VITALS: BP 173/83; PULSE 104; RESP 18; O2SAT 95
[2022-07-19] MEDS: Acetaminophen 325 MG TABLET 650 MG PO (09:54)
--- NOTE | 2022-07-19 10:41 | PC.NURSE ---
Provider aware of patients BP
== END 2022-07-19 12:27 | disposition skilled nursing facility (03) ==
PROVIDERS: Emergency Provider Emergency Medicine; PCP Internal Medicine
DX: Z46.6 Encounter for fitting and adjustment of urinary device (principal); E11.22 Type 2 diabetes mellitus with diabetic chronic kidney disease; I13.0 Hypertensive heart and chronic kidney disease with heart failure and stage 1 through stage 4 chronic kidney disease, or unspecified chronic kidney disease; N18.9 Chronic kidney disease, unspecified; I50.9 Heart failure, unspecified; I48.0 Paroxysmal atrial fibrillation; Z79.4 Long term (current) use of insulin; Z79.01 Long term (current) use of 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; Z79.02 Long term (current) use of antithrombotics/antiplatelets; Z79.899 Other long term (current) drug therapy
CPT/HCPCS: 51702; 99283

== ENCOUNTER 2022-08-13 14:50 | Outpatient (REF) | payer MEDICARE, SELFPAY ==
[2022-08-13 14:58] LABS: MANUAL DIFF FLAG NO
[2022-08-13 15:02] LABS: Basophils Percent Auto 0.6 % (0-2); Eosinophils Absolute Auto 0.1 X10*3/uL (0.0-0.4); Hematocrit 40.7 % (37.0-47.0); Hemoglobin 12.7 g/dl (12.0-16.0); Imm Gran Abs Auto 0.04 X10*3/uL (0.00-0.03); Imm Gran Pct Auto 0.6 % (0.0-0.4); Lymphocytes Absolute Auto 1.2 X10*3/uL (1.2-4.9); Lymphocytes Percent Auto 16.8 % (20-40); Mean Corpuscular HGB Conc 31.2 g/dl (31.0-35.0); Mean Corpuscular Volume 89.6 fL (80.0-98.0); Mean Platelet Volume 9.4 fL (9.4-12.3); Monocytes Absolute Auto 0.8 X10*3/uL (0.1-1.2); Neutrophils Absolute Auto 4.8 x10*3/uL (2.0-8.3); Platelet Count 271 X10*3/uL (160-400); Red Blood Count 4.54 X10*6/uL (4.20-5.50); Red Cell Distribution Width 16.9 % (11.0-16.0)
[2022-08-13 15:06] LABS: INTERNATIONAL NORM RATIO 1.8 (0.9-1.1); Prothrombin Time 21.1 SEC (10.0-13.1)
[2022-08-13 15:43] LABS: Alanine Aminotransferase 17 U/L (0-31); Albumin Level 3.8 g/dL (3.5-5.0); Alkaline Phosphatase 118 U/L (39-117); Anion Gap 19 (12-20); Aspartate Amino Transferase 24 U/L (5-31); Bilirubin Total 0.6 mg/dL (0.0-1.0); Blood Urea Nitrogen 26 mg/dL (9-16); Calcium 9.1 mg/dL (8.4-10.2); Carbon Dioxide 21 mmol/L (22-29); Chloride 102 mmol/L (96-108); Estimated Glomerular Filt Rate 35; Glucose Random 165 mg/dL (60-115); Sodium 138 mmol/L (135-145); Total Protein 7.8 g/dL (6.5-8.0)
== END 2022-08-13 14:51 | disposition home or self-care (01) ==
LOC: HO.LNP 14:50
PROVIDERS: Visit Provider Physician Assistant
DX: R53.1 Weakness (principal)
CPT/HCPCS: 80053; 85025; 85610

== ENCOUNTER → 2022-08-15 13:58 | Outpatient (BNVA) | payer MEDICARE, SELFPAY | PROVIDERS: PCP Internal Medicine; Visit Provider Urology | DX: N31.9 Neuromuscular dysfunction of bladder, unspecified (principal) | CPT/HCPCS: 51705 ==

== ENCOUNTER 2022-08-15 15:33 | Inpatient (IN) | payer MEDICARE, SELFPAY ==
[2022-08-15] VITALS (9 sets, daily range): BP systolic 116–150; BP diastolic 54–86; PULSE 82–120; RESP 14–18; TEMP 36.9–37; O2SAT 94–96; BMI 32.8
--- NOTE | ~2022-08-15 | CT_ITS ---
EXAMINATION: CT CHEST, ABDOMEN AND PELVIS WITHOUT CONTRAST CLINICAL INFORMATION: Fall, right hip pain COMPARISON: 06/17/2022 TECHNIQUE: Multidetector volumetric imaging was performed from the thoracic inlet through the pubic symphysis without contrast. Sagittal and coronal reformatted images were obtained on the technologist workstation. This CT examination was performed using dose optimization techniques as appropriate, variously including the following: *Automated exposure control *Adjustment of mA and/or kV according to patient size (this includes techniques or standardized protocols for targeted exams where dose is matched to indication/reason for exam; i.e. extremities or head) *Use of iterative reconstruction technique DLP: 318 mGy-cm FINDINGS: CHEST: LUNGS: Minor dependent atelectasis both bases only. MEDIASTINUM: Prominence of pulmonary arteries suggesting pulmonary retention. No adenopathy. Thoracic aorta normal. Severe coronary atherosclerosis. No pericardial effusion. PERICARDIUM/PLEURA: Small layering pleural effusions at both bases. CHEST WALL/AXILLA: Unremarkable. ABDOMEN/PELVIS: LIVER, GALLBLADDER, BILIARY TREE: The liver is normal in size, shape, and attenuation. No focal hepatic lesion or biliary ductal dilatation is present. Gallbladder is not visualized. PANCREAS: Unremarkable. SPLEEN: Unremarkable. ADRENAL GLANDS: Left adrenal nodule similar. KIDNEYS AND URETERS: The kidneys are normal in size, shape, and attenuation. No hydronephrosis or hydroureter or calculi seen. No perinephric stranding. Low pole cyst right kidney similar. BLADDER: Suprapubic catheter in place. Nonspecific thickening of the bladder diffusely. No stones. GASTROINTESTINAL TRACT: Moderate diverticulosis throughout the colon without acute inflammatory changes. Hiatus hernia noted axial type. No small bowel pathology. ABDOMINAL WALL: No hernia is demonstrated. LYMPH NODES: Normal. VASCULAR: Unremarkable. PELVIC VISCERA: Fibroid uterus noted. OSSEOUS STRUCTURES: Severe degeneration of the right hip joint. No acute deformity. Pubic bones intact. No sacral lesion. CT/CT abdomen pelvis wo IV con IMPRESSION: Severe arthritic changes right hip. No acute deformity. Chronic findings as above. Appearance is similar to baseline.
--- NOTE | ~2022-08-15 | XR_ITS ---
EXAMINATION: XR ANKLE, RIGHT CLINICAL INFORMATION: Fall last week with right ankle pain COMPARISON: None TECHNIQUE: AP, lateral, and mortise views of the right ankle. FINDINGS: There is an oblique lucency of the distal fibular metaphysis, concerning for a nondisplaced fracture. The bones are osteopenic which limits the evaluation. The ankle mortise remains congruent. Soft tissue swelling surrounds the ankle, particularly at the lateral aspect. Heel spurs are noted. Osteophytes of the midfoot. XR/XR ankle RT 2V IMPRESSION: Oblique lucency of the distal fibular metaphysis, concerning for a nondisplaced fracture. Soft tissue swelling.
--- NOTE | ~2022-08-15 | CT_ITS ---
EXAMINATION: CT HEAD WITHOUT CONTRAST CT CERVICAL SPINE WITHOUT CONTRAST CLINICAL INFORMATION: Fall. On blood thinners. COMPARISON: CT head 01/21/2019 TECHNIQUE: Imaging was performed from the skull base to vertex without intravenous administration of contrast. In addition, helical noncontrast CT imaging was acquired through the cervical spine and source images were reviewed along with axial reconstructions and sagittal and coronal MPRs. [This CT examination was performed using dose optimization techniques as appropriate, variously including the following: *Automated exposure control *Adjustment of mA and/or kV according to patient size (this includes techniques or standardized protocols for targeted exams where dose is matched to indication/reason for exam; i.e. 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 No intracranial mass, hemorrhage, or midline shift is visualized. There is generalized global volume loss. There is moderate prominence of the ventricles and the sulci . There is moderate hypodensity of the periventricular white matter due to chronic small vessel ischemic disease. There are vascular calcifications of the internal carotid arteries bilaterally. . No extra-axial collections are identified. The paranasal sinuses and mastoid air cells are well aerated. CERVICAL SPINE: There is no evidence of acute cervical spine fracture. Vertebral bodies remain normal in height. There is reversal the normal lordotic curve of cervical spine which is due to degenerative change and positioning. There is advanced multilevel degenerative spondylosis of the cervical spine with disc height narrowing and endplate spurs and facet joint arthrosis No pre- or paravertebral soft tissue abnormality is identified. Limited assessment of the lung apices is unremarkable. CT/CT cervical spine wo IV con IMPRESSION: 1. No acute intracranial pathology. 2. No CT evidence of acute cervical spine fracture or traumatic subluxation
--- NOTE | ~2022-08-15 | US_ITS ---
EXAMINATION: US VENOUS WITH DOPPLER UPPER EXTREMITY, RIGHT CLINICAL INFORMATION: Swelling and pain COMPARISON: None TECHNIQUE: Ultrasound of the upper extremity is performed using compression sonography and color and pulse Doppler flow with assessment of augmentation of flow. There is also imaging and Doppler assessment of the jugular and subclavian veins. Spectral analysis with color-flow imaging is performed. FINDINGS: Respiratory variation, normal compression, and augmented flow are noted throughout the upper extremity including the axillary, brachial, cubital, and radial and ulnar veins. There is normal flow in the internal jugular and subclavian veins. There is no visible deep or superficial thrombophlebitis. If the patient's symptoms progress, a followup ultrasound in 5 -7 days might be of value to exclude proximal propagation from a nonvisualized distal arm vein. US/US venous duplex UE RT IMPRESSION: No DVT demonstrated in the right upper extremity.
--- NOTE | ~2022-08-15 | XR_ITS ---
EXAMINATION: XR knee RT 4V CLINICAL INFORMATION: Reason for Exam rt knee pain COMPARISON: None. TECHNIQUE: Four views of the knee XR/XR knee RT 4V FINDINGS/IMPRESSION: * No acute fracture or dislocation. * Status post total knee arthroplasty, with a trace suprapatellar joint effusion and enthesopathy of the quadriceps and patellar tendons. No evidence of hardware fracture or complication. * Atherosclerotic vascular calcification.
--- NOTE | 2022-08-15 16:01 | ECG_ITS ---
Test Reason : FALL Blood Pressure : / mmHG Vent. Rate : 096 BPM Atrial Rate : 000 BPM P-R Int : 000 ms QRS Dur : 084 ms QT Int : 388 ms P-R-T Axes : 000 060 125 degrees QTc Int : 490 ms Atrial fibrillation with premature ventricular or aberrantly conducted complexes Nonspecific ST and T wave abnormality Abnormal ECG When compared with ECG of 14-OCT-2020 03:52, Atrial fibrillation has replaced Sinus rhythm ST now depressed in Lateral leads Referred By: Olga Batista Electronically Signed By:ADINA GERARD MD
--- NOTE | 2022-08-15 16:13 | ED.FALL ---
HPI - Fall General Chief Complaint: Fall Stated Complaint: Fall/head strike/left hip pain/knee swelling Time Seen by Provider: 08/15/22 16:04 Source: patient, family (daughter) and EMS Mode of arrival: EMS Limitations: no limitations History of Present Illness HPI Narrative: 81-year-old female history of diabetes, CKD, hypertension, diabetes, hypothyroidism, atrial fibrillation on Coumadin, recurrent UTIs presenting to the emergency department status post fall with head strike, weakness and right hip pain. According to patient she went to step into her home her foot slipped, she fell back hitting her head on cement. She reports that she did not lose consciousness, she was unable to stand up by herself, fall was witnessed by daughter. Patient now reports some pain to the occipital region of head and severe right-sided hip pain. Patient's hip is externally rotated and shortened when compared to the left. Denies chest pain, sob, dizziness, or headache prior to fallo. Patient arrived by ambulance. Patient reports she is currently on Coumadin. Upon arrival GCS of 15 an NIH stroke scale negative. MD complaint: fall Related Data Home Medications Medication Instructions Recorded Confirmed levothyroxine 25 mcg tablet 25 mcg PO DAILY 09/05/20 06/27/22 oxybutynin chloride 10 mg 10 mg PO DAILY 09/05/20 06/27/22 tablet,extended release 24 hr aspirin 81 mg tablet,delayed 81 mg PO DAILY 09/11/21 06/27/22 release vit 1 cap PO DAILY 09/11/21 06/27/22 C,E,zinc,Qq-mcrce-5-lutein-zeaxanthin 250 mg-2.5 mg-0.5 mg capsule pen needle, diabetic 32 gauge x #50 ea 12/31/21 06/27/22/32 (BD Cathy 2nd Gen Pen Needle) atorvastatin 10 mg tablet 10 mg PO BEDTIME 02/06/22 06/27/22 Previous Rx's Medication Instructions Recorded furosemide 40 mg tablet 40 mg PO BID@0900,1800 30 days #60 10/20/20 tabs amlodipine 5 mg tablet 5 mg PO DAILY 90 days #90 tabs 01/22/22 insulin glargine 100 unit/mL 30 unit (0.3 mL) subcut BEDTIME 07/09/22 subcutaneous solution (Lantus #15 mL U-100 Insulin) metoprolol succinate 100 mg 200 mg PO DAILY #15 tabs 07/09/22 tablet,extended release 24 hr warfarin 1 mg tablet (Jantoven) 1 mg PO Q48H #15 tabs 07/09/22 warfarin 2 mg tablet (Jantoven) 2 mg PO Q48H #15 tabs 07/09/22 Allergies Allergy/AdvReac Type Severity Reaction Status Date / Time No Known Allergies Allergy Verified 06/26/22 13:07 [No Known Allergies*] Review of Systems Review of Systems: Constitutional : No Weight loss, No Fever, No Chills, No Fatigue, No Malaise ENT/Mouth : No sore throat, No Rhinorrhea Eyes: No Eye Pain, No Swelling, No Redness Cardiovascular : No Chest Pain, No SOB, No Dyspnea on Exertion, No Orthopnea, No Edema, No Palpitations Respiratory : No Cough, No Sputum, No Wheezing Gastrointestinal : No Nausea, No Vomiting, No Diarrhea, No Constipation, No abdominal Pain, No Hematochezia, No Melena Genitourinary : No Dysuria, No Urinary Frequency, No Hematuria, Musculoskeletal : + joint pain, No Myalgias, No Joint Swelling Skin : No Skin Lesions, No rash Neuro : + Weakness, No Numbness, No Dizziness, + Headache Psych : No Anxiety/Panic, No Depression All other systems reviewed and are negative Yes all other systems are reviewed and are negative [facility] Past Medical History Attestation statement: The following information was validated with the patient. Source: old records reviewed and nursing notes reviewed Medical History Atrial fibrillation CAD (coronary artery disease) CKD (chronic kidney disease) Congestive heart failure Diabetes Hypertension Hypothyroidism Hypotonic neurogenic bladder Leg wound, left PAF (paroxysmal atrial fibrillation) Urinary incontinence Varicose vein of leg Surgical History H/O heart artery stent H/O nasal polypectomy History of tonsillectomy and adenoidectomy History of tubal ligation Hx of cholecystectomy Family History Family History Father Hx of angina pectoris Myocardial infarction Mother Ovarian cancer Stomach cancer Maternal Grandfather Hardening of the arteries of the heart Social History Social History Household Members: Children Household Members Other:: daughter Housing: House Do you presently have visiting nurse or other home services: No Alcohol intake: never Patient Tobacco Use Status: Never used Tobacco Smoked in Last 30 Days: No Second Hand Smoke Exposure: No Use of substances other than those prescribed or required for medical reasons: No Advance Directives: No Advance Directives Information Provided: No service: No Current occupational status: retired Physical Exam Vital Signs: Vital Signs: Last Vital Signs Temp 98.6 F 08/15/22 19:10 Pulse 94 08/15/22 21:31 Resp 18 08/15/22 21:31 BP 116/54 L 08/15/22 21:31 Pulse Ox 94 08/15/22 21:31 O2 Del Method 08/15/22 21:31 BMI result Body Mass Index 32.8 Vital signs stable Appearance: Alert.? Oriented X3.? No acute distress.? Head: Normocephalic, atraumatic, no step-offs or deformities Eyes: Pupils equal, round and reactive to light.? Extraocular movements intact. ENT: Pharynx normal.? Neck: Normal inspection.? Neck supple.? CVS: Normal heart rate and rhythm.? Pulses normal.? Respiratory: No respiratory distress.? Breath sounds normal.? Abdomen: Soft and nontender.? Skin: Skin warm and dry.? Normal skin color.? Normal skin turgor.? Extremities: 3+ b/l lower extremity edema pitting.? No calf ttp. Global weakness + pain with palpation overlying the right SI joint and right lower extremity appears to be externally rotated and shortened. Normal sensation bilaterally. 2+ dorsalis pedis, posterior tibialis and anterior tibialis pulses equal bilateral. Back: No midline tenderness, no C-spine tenderness, full range of motion, no CVA tenderness bilaterally Neuro: Oriented X 3.? No motor deficit.? No sensory deficit. Normal [id number]-[id number]. Negative Romberg, no pronator drift. GCS of 15, NIH stroke scale 0. Course Reevaluation(s) Reevaluation #1: CBC appears to be around normal limits. Chemistry with no acute findings. Patient is noted to have a BUN and creatinine that are elevated however this appears to be patient's baseline. Coags, UA, troponin, BNP, EKG and imaging pending at this time. After speaking to daughter daughter tells me that patient has been very weak lately, patient does tell me that she feels like she is very weak and maybe this is why she cannot get up on her own. She has not been feeling well for few days she now tells me. She does have a VNA nurse at home however not there every day and she does not feel like she has adequate resources at home. Time: 17:40 Reevaluation #2: Patient's initial troponin 18.8, EKG with atrial fibrillation with a rate of 94, unlikely that this is ACS however 2nd troponin pending at this time. Coags within normal limits. BNP elevated , Lasix will be given at this time. Urine infected ceftriaxone will be given. Patient now complaining of vague complaints of dizziness, described as vertigo, tells me she has a history of vertigo and it feels like her typical vertigo. CT of the head with no acute findings, CT of the neck with no acute findings. CT of the abdomen pelvis with severe arthritic changes to the right hip no acute deformity. Right knee with no acute fractures or dislocations. Small joint effusion to the right knee. Dl wrap will be applied Time: 21:35 Reevaluation #3: Patient will be admitted to the hospital for further evaluation treatment. Time: 21:46 MDM - Fall MDM Narrative Medical decision making narrative: 1610 81-year-old female anticoagulated on Coumadin presents with fall with head strike without loss of consciousness complaining of headache, weakness and right hip pain. Physical examination with global weakness, neuro nonfocal, patient with pain of right hip to the SI joint, patient's right hip appears to be shortened and externally rotated. Concerns for hip fracture. He will rule out intracranial hemorrhage. Unlikely that this is a posterior stroke. Due to patient's fall and vague story will obtain CT of the chest, abdomen and pelvis as a trauma scan. Will obtain basic labs an INR. Medical Records Attestation: I reviewed the patient's medical records. Lab Data Attestation: I reviewed the patient's lab results. Result diagrams: 08/15/22 16:20 08/15/22 16:20 Labs: Lab Results 08/15/22 08/15/22 08/15/22 Range/Units 16:20 16:20 16:20 WBC 8.6 (4.8-10.8) X10*3/uL RBC 4.58 (4.20-5.50) X10*6/uL Hgb 12.7 (12.0-16.0) g/dl Hct 39.9 (37.0-47.0) % MCV 87.1 (80.0-98.0) fL MCH 27.7 (27.0-33.0) pg MCHC 31.8 (31.0-35.0) g/dl RDW 16.9 H (11.0-16.0) % Plt Count 223 (160-400) X10*3/uL MPV 9.2 L (9.4-12.3) fL Immature Gran % (Auto) 0.8 H (0.0-0.4) % Neut % (Auto) 70.9 (45-73) % Lymph % (Auto) 11.4 L (20-40) % [place] % (Auto) 16.5 H (2-11) % Eos % (Auto) 0.1 (0-4) % Baso % (Auto) 0.3 (0-2) % Lymph # (Auto) 1.0 L (1.2-4.9) X10*3/uL [place] # (Auto) 1.4 H (0.1-1.2) X10*3/uL Eos # (Auto) 0.0 (0.0-0.4) X10*3/uL Baso # (Auto) 0.0 (0.0-0.2) X10*3/uL Abs Immat Gran (auto) 0.07 H (0.00-0.03) X10*3/uL Absolute Neuts (auto) 6.1 (2.0-8.3) x10*3/uL Absolute Nucleated RBC 0.000 (0.0-0.012) X10*3/uL Nucleated RBC % (auto) 0.0 (0.0-0.2) /100WBC PT (10.0-13.1) SEC INR (0.9-1.1) Sodium 134 L (135-145) mmol/L Potassium 4.3 (3.3-5.1) mmol/L Chloride 101 (96-108) mmol/L Carbon Dioxide 18 L (22-29) mmol/L Anion Gap 19 (12-20) BUN 20 H (9-16) mg/dL Creatinine 1.52 H (0.5-1.4) mg/dL Estim Creat Clear Calc 32.3 Estimated GFR 33 Random Glucose 247 H (60-115) mg/dL Calcium 8.3 L D (8.4-10.2) mg/dL Total Bilirubin 0.7 (0.0-1.0) mg/dL AST 34 H D (5-31) U/L ALT 15 (0-31) U/L Alkaline Phosphatase 111 (39-117) U/L Troponin I High Sens 18.8 H (<3.5-17.0) ng/L B-Natriuretic Peptide 790 H (<100) pg/mL Total Protein 7.7 (6.5-8.0) g/dL Albumin 3.5 (3.5-5.0) g/dL Urine Color Urine Appearance Urine pH (5.0-9.0) Ur Specific [place] (1.005-1.025) Urine Protein (Neg-Trace) mg/dL Urine Glucose (UA) (Negative) mg/dL Urine Ketones (Negative) mg/dL Urine Blood (Negative) Urine Nitrite (Negative) Ur Leukocyte Esterase (Negative) Urine RBC (0-2) /HPF Urine WBC (0-5) /HPF Ur Squamous Epith Cells (0-2) /HPF Urine Bacteria (None Seen) Hyaline Casts (0-2) /LPF 08/15/22 08/15/22 Range/Units 17:33 19:15 WBC (4.8-10.8) X10*3/uL RBC (4.20-5.50) X10*6/uL Hgb (12.0-16.0) g/dl Hct (37.0-47.0) % MCV (80.0-98.0) fL MCH (27.0-33.0) pg MCHC (31.0-35.0) g/dl RDW (11.0-16.0) % Plt Count (160-400) X10*3/uL MPV (9.4-12.3) fL Immature Gran % (Auto) (0.0-0.4) % Neut % (Auto) (45-73) % Lymph % (Auto) (20-40) % [place] % (Auto) (2-11) % Eos % (Auto) (0-4) % Baso % (Auto) (0-2) % Lymph # (Auto) (1.2-4.9) X10*3/uL [place] # (Auto) (0.1-1.2) X10*3/uL Eos # (Auto) (0.0-0.4) X10*3/uL Baso # (Auto) (0.0-0.2) X10*3/uL Abs Immat Gran (auto) (0.00-0.03) X10*3/uL Absolute Neuts (auto) (2.0-8.3) x10*3/uL Absolute Nucleated RBC (0.0-0.012) X10*3/uL Nucleated RBC % (auto) (0.0-0.2) /100WBC PT 25.3 H (10.0-13.1) SEC INR 2.1 H (0.9-1.1) Sodium (135-145) mmol/L Potassium (3.3-5.1) mmol/L Chloride (96-108) mmol/L Carbon Dioxide (22-29) mmol/L Anion Gap (12-20) BUN (9-16) mg/dL Creatinine (0.5-1.4) mg/dL Estim Creat Clear Calc Estimated GFR Random Glucose (60-115) mg/dL Calcium (8.4-10.2) mg/dL Total Bilirubin (0.0-1.0) mg/dL AST (5-31) U/L ALT (0-31) U/L Alkaline Phosphatase (39-117) U/L Troponin I High Sens (<3.5-17.0) ng/L B-Natriuretic Peptide (<100) pg/mL Total Protein (6.5-8.0) g/dL Albumin (3.5-5.0) g/dL Urine Color Yellow Urine Appearance Cloudy Urine pH 6.5 (5.0-9.0) Ur Specific [place] 1.010 (1.005-1.025) Urine Protein 300 (3+) H (Neg-Trace) mg/dL Urine Glucose (UA) 250 H (Negative) mg/dL Urine Ketones Negative (Negative) mg/dL Urine Blood Moderate (2+) H (Negative) Urine Nitrite Positive H (Negative) Ur Leukocyte Esterase Large (3+) H (Negative) Urine RBC 6-10 H (0-2) /HPF Urine WBC >50 H (0-5) /HPF Ur Squamous Epith Cells 0-2 (0-2) /HPF Urine Bacteria 3+ (None Seen) Hyaline Casts 0-2 (0-2) /LPF Critical Care Time Critical Care Time Critical Care Time: No Discharge Plan Discharge Clinical Impression: Fall, Hip pain, Headache, Dizziness, Elevated brain natriuretic peptide (BNP) level Patient Disposition: Admitted As Inpatient Prescriptions: No Action amlodipine 5 mg tablet 5 mg PO DAILY 90 Days Qty: 90 0RF furosemide 40 mg Tablet 40 mg PO BID@0900,1800 30 Days Qty: 60 0RF Protocol: Hold for SBP< HOLD for SBP < : 90 insulin glargine [Lantus U-100 Insulin] 100 unit/mL Solution 30 unit subcut BEDTIME Qty: 15 0RF metoprolol succinate 100 mg Tablet Extended Release 24 Hr 200 mg PO DAILY Qty: 15 0RF Protocol: Hold for SBP/HR < HOLD for SBP < : 90 HOLD for HR < : 60 warfarin [Jantoven] 2 mg Tablet 2 mg PO Q48H Qty: 15 0RF warfarin [Jantoven] 1 mg Tablet 1 mg PO Q48H Qty: 15 0RF levothyroxine 25 mcg tablet 25 mcg PO DAILY oxybutynin chloride 10 mg tablet extended release 24hr 10 mg PO DAILY aspirin 81 mg tablet,delayed release (DR/EC) 81 mg PO DAILY vit C,E,Zn,Xs-jakws8-hpt-zeax 250-2.5-0.5 mg capsule 1 cap PO DAILY (DME) pen needle, diabetic [BD Cathy 2nd Gen Pen Needle] 32 gauge x 5/32 needle See Rx Instructions subcut DAILY Qty: 50 Rx Instructions: As directed atorvastatin 10 mg tablet 10 mg PO BEDTIME
[2022-08-15 16:25] LABS: MANUAL DIFF FLAG NO
[2022-08-15 16:26] LABS: Basophils Percent Auto 0.3 % (0-2); Eosinophils Percent Auto 0.1 % (0-4); Hematocrit 39.9 % (37.0-47.0); Hemoglobin 12.7 g/dl (12.0-16.0); Imm Gran Abs Auto 0.07 X10*3/uL (0.00-0.03); Imm Gran Pct Auto 0.8 % (0.0-0.4); Lymphocytes Percent Auto 11.4 % (20-40); Mean Corpuscular HGB Conc 31.8 g/dl (31.0-35.0); Mean Corpuscular Hemoglobin 27.7 pg (27.0-33.0); Mean Corpuscular Volume 87.1 fL (80.0-98.0); Mean Platelet Volume 9.2 fL (9.4-12.3); Monocytes Absolute Auto 1.4 X10*3/uL (0.1-1.2); Monocytes Percent Auto 16.5 % (2-11); Neutrophils Absolute Auto 6.1 x10*3/uL (2.0-8.3); Neutrophils Percent Auto 70.9 % (45-73); Platelet Count 223 X10*3/uL (160-400); Red Blood Count 4.58 X10*6/uL (4.20-5.50); Red Cell Distribution Width 16.9 % (11.0-16.0); White Blood Count 8.6 X10*3/uL (4.8-10.8)
[2022-08-15 16:51] LABS: Alanine Aminotransferase 15 U/L (0-31); Albumin Level 3.5 g/dL (3.5-5.0); Alkaline Phosphatase 111 U/L (39-117); Anion Gap 19 (12-20); Aspartate Amino Transferase 34 U/L (5-31); Bilirubin Total 0.7 mg/dL (0.0-1.0); Blood Urea Nitrogen 20 mg/dL (9-16); Calcium 8.3 mg/dL (8.4-10.2); Carbon Dioxide 18 mmol/L (22-29); Chloride 101 mmol/L (96-108); Creatinine Clr Calc Pharmacy 32.3; Estimated Glomerular Filt Rate 33; Glucose Random 247 mg/dL (60-115); Potassium 4.3 mmol/L (3.3-5.1); Sodium 134 mmol/L (135-145); Total Protein 7.7 g/dL (6.5-8.0)
--- NOTE | 2022-08-15 17:39 | ECG_ITS ---
Test Reason : WEAKNESS Blood Pressure : / mmHG Vent. Rate : 094 BPM Atrial Rate : 000 BPM P-R Int : 000 ms QRS Dur : 088 ms QT Int : 398 ms P-R-T Axes : 000 061 145 degrees QTc Int : 497 ms Atrial fibrillation Nonspecific ST and T wave abnormality Abnormal ECG When compared with ECG of 15-AUG-2022 16:49, Premature ventricular complexes is no longer Present Referred By: Rakesh Ly Electronically Signed By:ADINA GERARD MD
[2022-08-15 17:43] LABS: INTERNATIONAL NORM RATIO 2.1 (0.9-1.1); Prothrombin Time 25.3 SEC (10.0-13.1)
[2022-08-15 18:07] LABS: B Type Natriuretic Peptide 790 pg/mL (<100); Troponin-I High Sensitivity 18.8 ng/L (<3.5-17.0)
[2022-08-15 19:23] LABS: Appearance Urine Cloudy; Color Urine Yellow; Glucose Urine UA 250 mg/dL (Negative); Leukocyte Esterase Urine Large (3+) (Negative); Nitrite Urine Positive (Negative); PH 6.5 (5.0-9.0); UMIC TRIGGER UACC YES; Urine Blood Moderate (2+) (Negative); Urine Ketones Negative (Negative); Urine Protein 300 (3+) mg/dL (Neg-Trace)
[2022-08-15 19:44] LABS: Bacteria Urine 3+ (None Seen); Hyaline Casts Urine 0-2 /LPF (0-2); Squamous Epithelial Cell Urine 0-2 /HPF (0-2); UACC Culture Trigger YES; WBC Urine >50 /HPF (0-5)
[2022-08-15] MEDS: Morphine Sulfate 4 MG/ML CARTRIDGE IVPUSH (20:27)
[2022-08-15] MEDS: cefTRIAXone sodium 1 GM in 0.9 % Sodium Chloride 50 ML IV (21:34)
[2022-08-15 21:37] LABS: Troponin-I High Sensitivity 15.4 ng/L (<3.5-17.0)
[2022-08-15] MEDS: Furosemide 20 MG/2 ML VIAL IVPUSH (21:38)
[2022-08-15] MEDS: Meclizine HCl 25 MG TABLET PO (22:00)
--- NOTE | 2022-08-15 22:02 | PC.NURSE ---
bilateral legs wrapped with MAYTE wraps
--- NOTE | 2022-08-15 22:22 | P.HPHOSP_ITS ---
History of Present Illness Date of Service: 08/15/22 Chief Complaint: Generalized weakness and fall This is a 81-year-old with past medical history of permanent atrial fibrillation on Coumadin, right hip osteoarthritis, chronic congestive heart failure with preserved ejection fraction, CKD stage 3, hypothyroidism, insulin-dependent diabetes mellitus, essential hypertension, neurogenic bladder presents to emergency department after a fall. Patient states she was in the garage and might have slipped. She hit her head and fell on the right side. Patient did not lose consciousness, no jerking movement of extremities, no tongue bite but she was not able to get up by herself after the fall. As per the daughter, this is not her baseline and she has been getting progressively weak over the last few days. On review of systems, patient does complain of burning micturition that has been ongoing for the last few days. No fever but did have some chills and an episode of vomiting 2 days ago. Denies abdominal discomfort, chest pain, palpitations, shortness of breath or changes in bowel habits. Review of Systems Review of Systems: All 13 review of systems are negative except as noted in [facility] Medical History Atrial fibrillation CAD (coronary artery disease) CKD (chronic kidney disease) Congestive heart failure Diabetes Hypertension Hypothyroidism Hypotonic neurogenic bladder Leg wound, left PAF (paroxysmal atrial fibrillation) Urinary incontinence Varicose vein of leg Family History Father Hx of angina pectoris Myocardial infarction Mother Ovarian cancer Stomach cancer Maternal Grandfather Hardening of the arteries of the heart Surgical History H/O heart artery stent H/O nasal polypectomy History of tonsillectomy and adenoidectomy History of tubal ligation Hx of cholecystectomy Social History Household Members: Children Household Members Other:: daughter Housing: House Do you presently have visiting nurse or other home services: No Alcohol intake: never Patient Tobacco Use Status: Never used Tobacco Smoked in Last 30 Days: No Second Hand Smoke Exposure: No Use of substances other than those prescribed or required for medical reasons: No Advance Directives: No Advance Directives Information Provided: No service: No Current occupational status: retired Meds Allergies Allergy/AdvReac Type Severity Reaction Status Date / Time No Known Allergies Allergy Verified 06/26/22 13:07 [No Known Allergies*] Active Medications: Current Medications Acetaminophen (Acetaminophen 325 Mg Tablet) 650 mg PO Q6H PRN PRN Reason: Pain, Mild (Pain Scale 1-3) Ceftriaxone Sodium 1 gm/ (Sodium Chloride) 50 mls @ 100 mls/hr IV Q24H [facility] Melatonin (Melatonin 3 Mg Tablet) 6 mg PO BEDTIME PRN PRN Reason: Insomnia Ondansetron HCl (Ondansetron Hcl 4 Mg/2 Ml Vial) 4 mg IVPUSH Q8H PRN PRN Reason: Nausea and Vomiting Pharmacy Consult (Consult Rx Perform Med Rec) 1 each MISCELLANE ONCE STA Stop: 08/15/22 21:48 Sodium Chloride (0.9 % Sodium Chloride Flush 3 Ml Syringe) 3 ml IVFLUSH QSHIFT [facility] Home Medications Medication Instructions Recorded Confirmed Last Taken Type levothyroxine 25 mcg tablet 25 mcg PO DAILY 09/05/20 08/15/22 Unknown History oxybutynin chloride 10 mg 10 mg PO DAILY 09/05/20 08/15/22 Unknown History tablet,extended release 24 hr aspirin 81 mg tablet,delayed 81 mg PO DAILY 09/11/21 06/27/22 Unknown History release pen needle, diabetic 32 gauge x #50 ea 12/31/21 06/27/22 Unknown History (BD Cathy 2nd Gen Pen Needle) atorvastatin 10 mg tablet 10 mg PO BEDTIME 02/06/22 08/15/22 Unknown History insulin glargine 100 unit/mL 20 unit subcut BEDTIME 08/15/22 08/15/22 Unknown History subcutaneous solution (Lantus U-100 Insulin) Physical Exam Vital Signs and Narrative: Vital Signs: Last Vital Signs Temp 98.6 F 08/15/22 19:10 Pulse 94 08/15/22 21:31 Resp 18 08/15/22 21:34 BP 116/54 L 08/15/22 21:31 Pulse Ox 94 08/15/22 21:31 O2 Del Method 08/15/22 21:31 BMI result Body Mass Index 32.8 Elderly female lying in bed in no distress Neck supple, no JVD Irregularly irregular, S1-S2 heard Regular breath sounds bilaterally, no wheezing or crackles appreciated Abdomen soft nontender, no guarding, no rigidity Patient is awake, alert and oriented to self, place, time and person ; decreased strength in right lower extremity with decreased motion at the right hip Psych: Normal mood Bilateral lower extremity edema, 2 small wounds present over anterior left lower extremity, clean without drainage Results Labs CBC and Chem 7: 08/15/22 16:20 08/15/22 16:20 Labs: Laboratory Results - last 24 hr 08/15/22 08/15/22 08/15/22 16:20 16:20 16:20 MCV 87.1 MCH 27.7 MCHC 31.8 RDW 16.9 H Plt Count 223 MPV 9.2 L Immature Gran % (Auto) 0.8 H Neut % (Auto) 70.9 Lymph % (Auto) 11.4 L [place] % (Auto) 16.5 H Eos % (Auto) 0.1 Baso % (Auto) 0.3 Lymph # (Auto) 1.0 L [place] # (Auto) 1.4 H Eos # (Auto) 0.0 Baso # (Auto) 0.0 Abs Immat Gran (auto) 0.07 H Absolute Neuts (auto) 6.1 Absolute Nucleated RBC 0.000 Nucleated RBC % (auto) 0.0 PT INR Anion Gap 19 Estim Creat Clear Calc 32.3 Estimated GFR 33 Random Glucose 247 H Calcium 8.3 L D Total Bilirubin 0.7 AST 34 H D ALT 15 Alkaline Phosphatase 111 Troponin I High Sens 18.8 H B-Natriuretic Peptide 790 H Total Protein 7.7 Albumin 3.5 Urine Color Urine Appearance Urine pH Ur Specific [place] Urine Protein Urine Glucose (UA) Urine Ketones Urine Blood Urine Nitrite Ur Leukocyte Esterase Urine RBC Urine WBC Ur Squamous Epith Cells Urine Bacteria Hyaline Casts 08/15/22 08/15/22 08/15/22 17:33 19:15 21:04 MCV MCH MCHC RDW Plt Count MPV Immature Gran % (Auto) Neut % (Auto) Lymph % (Auto) [place] % (Auto) Eos % (Auto) Baso % (Auto) Lymph # (Auto) [place] # (Auto) Eos # (Auto) Baso # (Auto) Abs Immat Gran (auto) Absolute Neuts (auto) Absolute Nucleated RBC Nucleated RBC % (auto) PT 25.3 H INR 2.1 H Anion Gap Estim Creat Clear Calc Estimated GFR Random Glucose Calcium Total Bilirubin AST ALT Alkaline Phosphatase Troponin I High Sens 15.4 B-Natriuretic Peptide Total Protein Albumin Urine Color Yellow Urine Appearance Cloudy Urine pH 6.5 Ur Specific [place] 1.010 Urine Protein 300 (3+) H Urine Glucose (UA) 250 H Urine Ketones Negative Urine Blood Moderate (2+) H Urine Nitrite Positive H Ur Leukocyte Esterase Large (3+) H Urine RBC 6-10 H Urine WBC >50 H Ur Squamous Epith Cells 0-2 Urine Bacteria 3+ Hyaline Casts 0-2 Imaging Radiologist's Impressions: Impressions Cervical Spine CT 08/15/22 17:47 IMPRESSION: 1. No acute intracranial pathology. 2. No CT evidence of acute cervical spine fracture or traumatic subluxation Head CT 08/15/22 17:47 IMPRESSION: 1. No acute intracranial pathology. 2. No CT evidence of acute cervical spine fracture or traumatic subluxation Abdomen/Pelvis CT 08/15/22 17:49 IMPRESSION: Severe arthritic changes right hip. No acute deformity. Chronic findings as above. Appearance is similar to baseline. Chest CT 08/15/22 17:49 IMPRESSION: Severe arthritic changes right hip. No acute deformity. Chronic findings as above. Appearance is similar to baseline. Knee X-Ray 08/15/22 18:56 FINDINGS/IMPRESSION: * No acute fracture or dislocation. * Status post total knee arthroplasty, with a trace suprapatellar joint effusion and enthesopathy of the quadriceps and patellar tendons. No evidence of hardware fracture or complication. * Atherosclerotic vascular calcification. Assessment and Plan (1) Fall: Status: Acute (2) Weakness: Status: Acute (3) UTI (urinary tract infection): Status: Acute (4) Osteoarthritis of right hip: Status: Acute (5) CKD (chronic kidney disease): Status: Acute (6) Hypertension: Status: Acute (7) Diabetes: Status: Acute (8) Hypothyroidism: Status: Acute (9) Urinary incontinence: Status: Acute (10) Congestive heart failure: Status: Acute (11) Atrial fibrillation: Status: Acute Plan This is a 81-year-old with past medical history of permanent atrial fibrillation on Coumadin, right hip osteoarthritis, chronic congestive heart failure with preserved ejection fraction, CKD stage 3, hypothyroidism, insulin-dependent diabetes mellitus, essential hypertension, neurogenic bladder presents to emergency department after a fall for generalized weakness. #. Generalized weakness -likely in the setting of urinary tract infection and progressive debility. Will treat UTI and monitor for improvement of weakness. Consulting Physical therapy evaluate and treat. Obtain TSH #. Complicated cystitis in patient with neurogenic bladder -will treat with IV Rocephin. Urine cultures obtained in the ER. Continue oxybutynin #. Right hip osteoarthritis -may be contributing to weakness. Consulting Physical therapy as above and appreciate recommendations. Was evaluated by Orthopedic surgery during previous admission who recommended reassessment as an outpatient. #. Permanent atrial fibrillation -on Coumadin. Goal INR 2-3. Rate controlled #. Chronic congestive heart failure with preserved ejection fraction -currently compensated. #. Insulin-dependent type 2 diabetes mellitus with hyperglycemia -initiating Accu-Cheks with sliding scale insulin. Reduce home basal regimen while in the hospital #. Hypothyroidism -on levothyroxine #. Essential hypertension -continue home meds #. Lower extremity wounds with venous insufficiency -Dl wrap applied. Continue wound care. No concern for infection. Arterial ultrasound during previous admission with degree of distal arterial disease, recommend outpatient vascular surgery eval #. Chronic kidney disease stage 3 -creatinine at baseline. Monitor DVT prophylaxis: On Coumadin Diet: Cardiac diet Patient will require two night minimum hospital stay for treatment of urinary tract infection and evaluation of weakness. Also needs physical therapy for safe disposition. Quality Stroke Does the patient have a stroke diagnosis?: No VTE Prior VTE?: No VTE Risk Level:: Medical - moderate - high VTE Device Contraindication: Treatment Not Indicated VTE Drug Contraindication: N/A - Med Ordered
--- NOTE | 2022-08-15 22:41 | PHA.MEDREC ---
Pharmacy Consult ? Medication Reconciliation Pharmacy has completed the medication reconciliation Spoke with pt. She was not confident in her answers, but said yes to the meds on file in the claim hx
[2022-08-15] MEDS: 0.9 % Sodium Chloride Flush 3 ML SYRINGE IVFLUSH (23:17)
[2022-08-15] MEDS: Insulin Glargine,Hum.rec.anlog 100 UNIT/ML 10 ML VIAL 15 UNIT SUBCUT (23:46)
[2022-08-16] VITALS (7 sets, daily range): BP systolic 124–167; BP diastolic 62–77; PULSE 88–108; RESP 16–22; TEMP 36.6–37.2; O2SAT 92–99
[2022-08-16 00:17] LABS: COVID-19 Test Positive (Negative)
[2022-08-16 00:33] LABS: Thyroid Stimulating Hormone 3.66 uIU/mL (0.32-4.0)
[2022-08-16 05:20] LABS: Estimated Average Glucose 151 mg/dL; Hemoglobin A1c % 6.9 %
[2022-08-16 05:49] LABS: Basophils Absolute Auto 0.1 X10*3/uL (0.0-0.2); Basophils Percent Auto 0.8 % (0-2); Eosinophils Absolute Auto 0.1 X10*3/uL (0.0-0.4); Eosinophils Percent Auto 0.7 % (0-4); Hematocrit 38.7 % (37.0-47.0); Hemoglobin 12.6 g/dl (12.0-16.0); Imm Gran Abs Auto 0.04 X10*3/uL (0.00-0.03); Imm Gran Pct Auto 0.5 % (0.0-0.4); Lymphocytes Absolute Auto 1.5 X10*3/uL (1.2-4.9); Lymphocytes Percent Auto 19.5 % (20-40); MANUAL DIFF FLAG SCAN; Mean Corpuscular HGB Conc 32.6 g/dl (31.0-35.0); Mean Corpuscular Hemoglobin 28.8 pg (27.0-33.0); Mean Corpuscular Volume 88.6 fL (80.0-98.0); Mean Platelet Volume 9.3 fL (9.4-12.3); Monocytes Absolute Auto 1.7 X10*3/uL (0.1-1.2); Monocytes Percent Auto 23.3 % (2-11); Neutrophils Absolute Auto 4.1 x10*3/uL (2.0-8.3); Neutrophils Percent Auto 55.2 % (45-73); Platelet Count 209 X10*3/uL (160-400); Red Blood Count 4.37 X10*6/uL (4.20-5.50); Red Cell Distribution Width 17.2 % (11.0-16.0); SCAN SMEAR FLAG 1; White Blood Count 7.4 X10*3/uL (4.8-10.8)
[2022-08-16 06:07] LABS: SLIDE REVIEW VERIFIED
[2022-08-16 06:08] LABS: Anion Gap 18 (12-20); Blood Urea Nitrogen 19 mg/dL (9-16); Calcium 8.2 mg/dL (8.4-10.2); Carbon Dioxide 23 mmol/L (22-29); Chloride 100 mmol/L (96-108); Creatinine Clr Calc Pharmacy 37.4; Estimated Glomerular Filt Rate 39; Glucose Random 130 mg/dL (60-115); Potassium 3.6 mmol/L (3.3-5.1); Sodium 137 mmol/L (135-145)
[2022-08-16 07:18] LABS: Glucose, Whole Blood 117 mg/dL (60-115)
[2022-08-16] MEDS: 0.9 % Sodium Chloride Flush 3 ML SYRINGE IVFLUSH ×3 (08:15→22:07)
[2022-08-16] MEDS: Acetaminophen 325 MG TABLET 650 MG PO (08:15)
--- NOTE | 2022-08-16 10:25 | PC.NURSE ---
lizzette connect sent to [facility] for additional pain medication as pts pain unrelieved frm PO tylenol
[2022-08-16] MEDS: Morphine Sulfate 2 MG/ML CARTRIDGE IVPUSH ×2 (13:36→23:53)
--- NOTE | 2022-08-16 13:52 | P.PNIM_ITS ---
Subjective Subjective Date of Service: 08/16/22 Review of Systems Follow up fall feeling very sore today denies chest pain, sob, nausea, vomiting, diarrhea Physical Exam Vital Signs: Vital Signs: Last Vital Signs Temp 97.9 F 08/16/22 07:36 Pulse 88 08/16/22 07:36 Resp 21 H 08/16/22 07:36 BP 146/76 H 08/16/22 07:36 Pulse Ox 92 08/16/22 07:36 O2 Del Method 08/16/22 07:36 BMI result Body Mass Index 32.8 Appearing in no acute distress lung sounds are clear to auscultation heart regular rate rhythm, clear S1, S2 positive bowel sounds, abdomen is soft, nontender neuro patient is alert x3, no focal deficits Objective Data Active Medications Acetaminophen (Acetaminophen 325 Mg Tablet) 650 mg PO Q6H PRN PRN Reason: Pain, Mild (Pain Scale 1-3) Last Admin: 08/16/22 08:15 Dose: 650 mg Documented By: IDALMIS Dextrose (Dextrose 50 % 25 Gm/50 Ml Syringe) 25 gm IVPUSH Q15M PRN; Protocol PRN Reason: per Hypoglycemia Standing Ord. Glucose (Glucose Gel 15 Gm Gel..Gram.) 15 gm PO Q15M PRN; Protocol PRN Reason: per Hypoglycemia Standing Ord. Ceftriaxone Sodium 1 gm/ (Sodium Chloride) 50 mls @ 100 mls/hr IV Q24H [facility] Insulin Glargine (Insulin Glargine,Hum.Rec.Anlog 100 Unit/Ml 10 Ml Vial) 15 unit SUBCUT BEDTIME [facility] Last Admin: 08/15/22 23:46 Dose: 15 unit Documented By: ZOLTAN Insulin Human Lispro (Insulin Lispro 100 Unit/Ml 3 Ml Vial) 0 unit SUBCUT QIDACHS [facility]; Protocol Stop: 08/16/22 22:43 Last Admin: 08/16/22 07:28 Dose: Not Given Documented By: IDALMIS Non-Admin Reason: No Insulin Coverage Melatonin (Melatonin 3 Mg Tablet) 6 mg PO BEDTIME PRN PRN Reason: Insomnia Morphine Sulfate (Morphine Sulfate 2 Mg/Ml Cartridge) 2 mg IVPUSH Q4H PRN; Protocol PRN Reason: Pain, Severe (Pain Scale 7-10) Last Admin: 08/16/22 13:36 Dose: 2 mg Documented By: IDALMIS Ondansetron HCl (Ondansetron Hcl 4 Mg/2 Ml Vial) 4 mg IVPUSH Q8H PRN PRN Reason: Nausea and Vomiting Sodium Chloride (0.9 % Sodium Chloride Flush 3 Ml Syringe) 3 ml IVFLUSH QSHIFT [facility] Last Admin: 08/16/22 08:15 Dose: 3 ml Documented By: IDALMIS Labs CBC & Chem 7: 08/16/22 05:36 08/16/22 05:36 Labs: Laboratory Results - last 24 hr 08/15/22 08/15/22 08/15/22 16:20 16:20 16:20 MCV 87.1 MCH 27.7 MCHC 31.8 RDW 16.9 H Plt Count 223 MPV 9.2 L Immature Gran % (Auto) 0.8 H Neut % (Auto) 70.9 Lymph % (Auto) 11.4 L [place] % (Auto) 16.5 H Eos % (Auto) 0.1 Baso % (Auto) 0.3 Lymph # (Auto) 1.0 L [place] # (Auto) 1.4 H Eos # (Auto) 0.0 Baso # (Auto) 0.0 Abs Immat Gran (auto) 0.07 H Absolute Neuts (auto) 6.1 Absolute Nucleated RBC 0.000 Nucleated RBC % (auto) 0.0 Smear Tech's Comments PT INR Anion Gap 19 Estim Creat Clear Calc 32.3 Estimated GFR 33 POC Glucose Random Glucose 247 H Estimat Average Glucose Hemoglobin A1c % Calcium 8.3 L D Total Bilirubin 0.7 AST 34 H D ALT 15 Alkaline Phosphatase 111 Troponin I High Sens 18.8 H B-Natriuretic Peptide 790 H Total Protein 7.7 Albumin 3.5 TSH Urine Color Urine Appearance Urine pH Ur Specific [place] Urine Protein Urine Glucose (UA) Urine Ketones Urine Blood Urine Nitrite Ur Leukocyte Esterase Urine RBC Urine WBC Ur Squamous Epith Cells Urine Bacteria Hyaline Casts COVID-19 (JONEL) COVID-19 Clin Com 08/15/22 08/15/22 08/15/22 17:33 19:15 21:04 MCV MCH MCHC RDW Plt Count MPV Immature Gran % (Auto) Neut % (Auto) Lymph % (Auto) [place] % (Auto) Eos % (Auto) Baso % (Auto) Lymph # (Auto) [place] # (Auto) Eos # (Auto) Baso # (Auto) Abs Immat Gran (auto) Absolute Neuts (auto) Absolute Nucleated RBC Nucleated RBC % (auto) Smear Tech's Comments PT 25.3 H INR 2.1 H Anion Gap Estim Creat Clear Calc Estimated GFR POC Glucose Random Glucose Estimat Average Glucose Hemoglobin A1c % Calcium Total Bilirubin AST ALT Alkaline Phosphatase Troponin I High Sens 15.4 B-Natriuretic Peptide Total Protein Albumin TSH Urine Color Yellow Urine Appearance Cloudy Urine pH 6.5 Ur Specific [place] 1.010 Urine Protein 300 (3+) H Urine Glucose (UA) 250 H Urine Ketones Negative Urine Blood Moderate (2+) H Urine Nitrite Positive H Ur Leukocyte Esterase Large (3+) H Urine RBC 6-10 H Urine WBC >50 H Ur Squamous Epith Cells 0-2 Urine Bacteria 3+ Hyaline Casts 0-2 COVID-19 (JONEL) COVID-[employer] 08/15/22 08/15/22 08/15/22 23:33 23:33 23:45 MCV MCH MCHC RDW Plt Count MPV Immature Gran % (Auto) Neut % (Auto) Lymph % (Auto) [place] % (Auto) Eos % (Auto) Baso % (Auto) Lymph # (Auto) [place] # (Auto) Eos # (Auto) Baso # (Auto) Abs Immat Gran (auto) Absolute Neuts (auto) Absolute Nucleated RBC Nucleated RBC % (auto) Smear Tech's Comments PT INR Anion Gap Estim Creat Clear Calc Estimated GFR POC Glucose Random Glucose Estimat Average Glucose 151 Hemoglobin A1c % 6.9 Calcium Total Bilirubin AST ALT Alkaline Phosphatase Troponin I High Sens B-Natriuretic Peptide Total Protein Albumin TSH 3.66 Urine Color Urine Appearance Urine pH Ur Specific [place] Urine Protein Urine Glucose (UA) Urine Ketones Urine Blood Urine Nitrite Ur Leukocyte Esterase Urine RBC Urine WBC Ur Squamous Epith Cells Urine Bacteria Hyaline Casts COVID-19 (JONEL) Positive A COVID-19 [employer] See Note 08/16/22 08/16/22 08/16/22 05:36 05:36 07:11 MCV 88.6 MCH 28.8 MCHC 32.6 RDW 17.2 H Plt Count 209 MPV 9.3 L Immature Gran % (Auto) 0.5 H Neut % (Auto) 55.2 Lymph % (Auto) 19.5 L [place] % (Auto) 23.3 H Eos % (Auto) 0.7 Baso % (Auto) 0.8 Lymph # (Auto) 1.5 [place] # (Auto) 1.7 H Eos # (Auto) 0.1 Baso # (Auto) 0.1 Abs Immat Gran (auto) 0.04 H Absolute Neuts (auto) 4.1 Absolute Nucleated RBC 0.000 Nucleated RBC % (auto) 0.0 Smear Tech's Comments VERIFIED PT INR Anion Gap 18 Estim Creat Clear Calc 37.4 Estimated GFR 39 POC Glucose 117 H Random Glucose 130 H Estimat Average Glucose Hemoglobin A1c % Calcium 8.2 L Total Bilirubin AST ALT Alkaline Phosphatase Troponin I High Sens B-Natriuretic Peptide Total Protein Albumin TSH Urine Color Urine Appearance Urine pH Ur Specific [place] Urine Protein Urine Glucose (UA) Urine Ketones Urine Blood Urine Nitrite Ur Leukocyte Esterase Urine RBC Urine WBC Ur Squamous Epith Cells Urine Bacteria Hyaline Casts COVID-19 (JONEL) COVID-19 Clin Com Microbiology Microbiology Results: Microbiology 08/15/22 19:45 Urine Culture - Preliminary Urine clean catch - Urine pires top Culture in progress. Assessment and Plan (1) UTI (urinary tract infection): Status: Acute Plan This is a 81-year-old with past medical history of permanent atrial fibrillation on Coumadin, right hip osteoarthritis, chronic congestive heart failure with preserved ejection fraction, CKD stage 3, hypothyroidism, insulin-dependent diabetes mellitus, essential hypertension, neurogenic bladder presents to emergency department after a fall for generalized weakness. Generalized weakness/fall Pain throughout the body due to fall, pain management likely in the setting of urinary tract infection and progressive debility.? Treat UTI physical therapy consultation Complicated cystitis in patient with neurogenic bladder Continue IV Rocephin.? Continue oxybutynin Follow urine cultures Right hip osteoarthritis may be contributing to weakness. Consulting Physical therapy as above and appreciate recommendations.? Was evaluated by Orthopedic surgery during previous admission who recommended reassessment as an outpatient. Permanent atrial fibrillation on Coumadin.? Goal INR 2-3.? Rate controlled Chronic congestive heart failure with preserved ejection fraction currently compensated. 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 Continue wound care.? No concern for infection.? Arterial ultrasound during previous admission with degree of distal arterial disease, recommend outpatient vascular surgery eval Chronic kidney disease stage 3 creatinine at baseline.? DVT prophylaxis: On Coumadin Attending Dr. Casanova Full code Patient will require two night minimum hospital stay for treatment of urinary tract infection and evaluation of weakness.? Also needs physical therapy for safe disposition.? Quality Stroke Does the patient have a stroke diagnosis?: No VTE Prior VTE?: No VTE Risk Level:: Medical - moderate - high VTE Device Contraindication: Treatment Not Indicated VTE Drug Contraindication: N/A - Med Ordered
[2022-08-16 13:55] LABS: Glucose, Whole Blood 122 mg/dL (60-115)
[2022-08-16 14:09] LABS: Glucose, Whole Blood 134 mg/dL (60-115)
[2022-08-16 16:18] LABS: Glucose, Whole Blood 193 mg/dL (60-115)
[2022-08-16 19:48] LABS: Glucose, Whole Blood 171 mg/dL (60-115)
[2022-08-16] MEDS: Insulin Lispro 100 UNIT/ML 3 ML VIAL SUBCUT (22:05)
[2022-08-16] MEDS: cefTRIAXone sodium 1 GM in 0.9 % Sodium Chloride 50 ML IV (22:05)
[2022-08-16] MEDS: Insulin Glargine,Hum.rec.anlog 100 UNIT/ML 10 ML VIAL 15 UNIT SUBCUT (22:06)
[2022-08-17 07:15] LABS: MANUAL DIFF FLAG NO
[2022-08-17 07:26] LABS: Basophils Percent Auto 0.4 % (0-2); Eosinophils Absolute Auto 0.3 X10*3/uL (0.0-0.4); Eosinophils Percent Auto 3.9 % (0-4); Hematocrit 37.5 % (37.0-47.0); Hemoglobin 11.9 g/dl (12.0-16.0); Imm Gran Abs Auto 0.04 X10*3/uL (0.00-0.03); Imm Gran Pct Auto 0.5 % (0.0-0.4); Lymphocytes Absolute Auto 2.1 X10*3/uL (1.2-4.9); Lymphocytes Percent Auto 26.8 % (20-40); Mean Corpuscular HGB Conc 31.7 g/dl (31.0-35.0); Mean Corpuscular Hemoglobin 28.2 pg (27.0-33.0); Mean Corpuscular Volume 88.9 fL (80.0-98.0); Mean Platelet Volume 9.6 fL (9.4-12.3); Monocytes Absolute Auto 1.4 X10*3/uL (0.1-1.2); Monocytes Percent Auto 18.8 % (2-11); Neutrophils Absolute Auto 3.8 x10*3/uL (2.0-8.3); Neutrophils Percent Auto 49.6 % (45-73); Platelet Count 215 X10*3/uL (160-400); Red Blood Count 4.22 X10*6/uL (4.20-5.50); Red Cell Distribution Width 17.2 % (11.0-16.0); White Blood Count 7.6 X10*3/uL (4.8-10.8)
[2022-08-17 07:42] LABS: Anion Gap 16 (12-20); Blood Urea Nitrogen 29 mg/dL (9-16); Calcium 7.7 mg/dL (8.4-10.2); Carbon Dioxide 22 mmol/L (22-29); Chloride 101 mmol/L (96-108); Creatinine Clr Calc Pharmacy 35.3; Estimated Glomerular Filt Rate 36; Glucose Random 116 mg/dL (60-115); Potassium 3.8 mmol/L (3.3-5.1); Sodium 135 mmol/L (135-145)
[2022-08-17 07:53] LABS: Glucose, Whole Blood 115 mg/dL (60-115)
[2022-08-17 07:55] VITALS: BP 118/61; PULSE 90; RESP 18; TEMP 37.1; O2SAT 97
[2022-08-17 08:41] LABS: INTERNATIONAL NORM RATIO 1.8 (0.9-1.1); Prothrombin Time 21.4 SEC (10.0-13.1)
[2022-08-17] MEDS: amLODIPine Besylate 5 MG TABLET PO (08:49)
[2022-08-17] MEDS: Aspirin Enteric Coated 81 MG TABLET.DR PO (08:50)
[2022-08-17] MEDS: Metoprolol Succinate ER 100 MG TAB.ER.24H 200 MG PO (08:50)
[2022-08-17] MEDS: Levothyroxine Sodium 25 MCG TABLET PO (08:50)
[2022-08-17] MEDS: Furosemide 40 MG TABLET PO ×2 (08:50→16:22)
[2022-08-17] MEDS: Morphine Sulfate 2 MG/ML CARTRIDGE IVPUSH (08:55)
[2022-08-17] MEDS: Acetaminophen 325 MG TABLET 650 MG PO (08:56)
[2022-08-17] MEDS: 0.9 % Sodium Chloride Flush 3 ML SYRINGE IVFLUSH ×3 (08:56→22:13)
--- NOTE | 2022-08-17 09:25 | HO.PM.IMPN ---
Subjective Subjective Date of Service: 08/17/22 Review of Systems Follow up fall Soreness is subsiding, still with right ankle pain denies chest pain, sob, nausea, vomiting, diarrhea Physical Exam Vital Signs: Vital Signs: Last Vital Signs Temp 98.7 F 08/17/22 07:55 Pulse 90 08/17/22 07:55 Resp 18 08/17/22 07:55 BP 118/61 08/17/22 07:55 Pulse Ox 97 08/17/22 07:55 O2 Del Method 08/17/22 07:55 BMI result Body Mass Index 32.8 Appearing in no acute distress lung sounds are clear to auscultation heart regular rate rhythm, clear S1, S2 positive bowel sounds, abdomen is soft, nontender neuro patient is alert x3, no focal deficits Urostomy Objective Data Active Medications Acetaminophen (Acetaminophen 325 Mg Tablet) 650 mg PO Q6H PRN PRN Reason: Pain, Mild (Pain Scale 1-3) Last Admin: 08/17/22 08:56 Dose: 650 mg Documented By: ERNESTINE Amlodipine Besylate (Amlodipine Besylate 5 Mg Tablet) 5 mg PO DAILY [facility]; Protocol Last Admin: 08/17/22 08:49 Dose: 5 mg Documented By: ERNESTINE Aspirin (Aspirin Enteric Coated 81 Mg Tablet.) 81 mg PO DAILY [facility] Last Admin: 08/17/22 08:50 Dose: 81 mg Documented By: ERNESTINE Dextrose (Dextrose 50 % 25 Gm/50 Ml Syringe) 25 gm IVPUSH Q15M PRN; Protocol PRN Reason: per Hypoglycemia Standing Ord. Furosemide (Furosemide 40 Mg Tablet) 40 mg PO BID@0900,1800 [facility]; Protocol Last Admin: 08/17/22 08:50 Dose: 40 mg Documented By: ERNESTINE Glucose (Glucose Gel 15 Gm Gel..Gram.) 15 gm PO Q15M PRN; Protocol PRN Reason: per Hypoglycemia Standing Ord. Ceftriaxone Sodium 1 gm/ (Sodium Chloride) 50 mls @ 100 mls/hr IV Q24H [facility] Last Infusion: 08/16/22 23:27 Dose: 0 mls/hr Documented By: VALARIE Insulin Glargine (Insulin Glargine,Hum.Rec.Anlog 100 Unit/Ml 10 Ml Vial) 15 unit SUBCUT BEDTIME [facility] Last Admin: 08/16/22 22:06 Dose: 15 unit Documented By: VALARIE Levothyroxine Sodium (Levothyroxine Sodium 25 Mcg Tablet) 25 mcg PO DAILY@0600 [facility] Last Admin: 08/17/22 08:50 Dose: 25 mcg Documented By: ERNESTINE Melatonin (Melatonin 3 Mg Tablet) 6 mg PO BEDTIME PRN PRN Reason: Insomnia Metoprolol Succinate (Metoprolol Succinate Er 100 Mg Tab.Er.24h) 200 mg PO DAILY [facility]; Protocol Last Admin: 08/17/22 08:50 Dose: 200 mg Documented By: ERNESTINE Morphine Sulfate (Morphine Sulfate 2 Mg/Ml Cartridge) 2 mg IVPUSH Q4H PRN; Protocol PRN Reason: Pain, Severe (Pain Scale 7-10) Last Admin: 08/17/22 08:55 Dose: 2 mg Documented By: ERNESTINE Ondansetron HCl (Ondansetron Hcl 4 Mg/2 Ml Vial) 4 mg IVPUSH Q8H PRN PRN Reason: Nausea and Vomiting Oxybutynin Chloride (Oxybutynin Chloride Er 5 Mg Tab.Er.24) 10 mg PO DAILY [facility] Last Admin: 08/17/22 08:50 Dose: 10 mg Documented By: ERNESTINE Sodium Chloride (0.9 % Sodium Chloride Flush 3 Ml Syringe) 3 ml IVFLUSH QSHIFT [facility] [place] Last Admin: 08/17/22 08:56 Dose: 3 ml Documented By: ERNESTINE Warfarin Sodium (Warfarin Sodium 1 Mg Tablet) 1 mg PO Q48H [facility] Warfarin Sodium (Warfarin Sodium 2 Mg Tablet) 2 mg PO Q48H [facility] Labs CBC & Chem 7: 08/17/22 06:46 08/17/22 06:46 Labs: Laboratory Results - last 24 hr 08/16/22 08/16/22 08/16/22 13:50 14:05 16:15 MCV MCH MCHC RDW Plt Count MPV Immature Gran % (Auto) Neut % (Auto) Lymph % (Auto) [place] % (Auto) Eos % (Auto) Baso % (Auto) Lymph # (Auto) [place] # (Auto) Eos # (Auto) Baso # (Auto) Abs Immat Gran (auto) Absolute Neuts (auto) Absolute Nucleated RBC Nucleated RBC % (auto) PT INR Anion Gap Estim Creat Clear Calc Estimated GFR POC Glucose 122 H 134 H 193 H Random Glucose Calcium 08/16/22 08/17/22 08/17/22 19:43 06:46 06:46 MCV 88.9 MCH 28.2 MCHC 31.7 RDW 17.2 H Plt Count 215 MPV 9.6 Immature Gran % (Auto) 0.5 H Neut % (Auto) 49.6 Lymph % (Auto) 26.8 [place] % (Auto) 18.8 H Eos % (Auto) 3.9 Baso % (Auto) 0.4 Lymph # (Auto) 2.1 [place] # (Auto) 1.4 H Eos # (Auto) 0.3 Baso # (Auto) 0.0 Abs Immat Gran (auto) 0.04 H Absolute Neuts (auto) 3.8 Absolute Nucleated RBC 0.000 Nucleated RBC % (auto) 0.0 PT INR Anion Gap 16 Estim Creat Clear Calc 35.3 Estimated GFR 36 POC Glucose 171 H Random Glucose 116 H Calcium 7.7 L D 08/17/22 08/17/22 07:51 08:12 MCV MCH MCHC RDW Plt Count MPV Immature Gran % (Auto) Neut % (Auto) Lymph % (Auto) [place] % (Auto) Eos % (Auto) Baso % (Auto) Lymph # (Auto) [place] # (Auto) Eos # (Auto) Baso # (Auto) Abs Immat Gran (auto) Absolute Neuts (auto) Absolute Nucleated RBC Nucleated RBC % (auto) PT 21.4 H INR 1.8 H Anion Gap Estim Creat Clear Calc Estimated GFR POC Glucose 115 Random Glucose Calcium Microbiology Microbiology Results: Microbiology 08/15/22 19:45 Urine Culture - Preliminary Urine clean catch - Urine pires top Gram negative alexsandra Assessment and Plan (1) UTI (urinary tract infection): Status: Acute Plan This is a 81-year-old with past medical history of permanent atrial fibrillation on Coumadin, right hip osteoarthritis, chronic congestive heart failure with preserved ejection fraction, CKD stage 3, hypothyroidism, insulin-dependent diabetes mellitus, essential hypertension, neurogenic bladder presents to emergency department after a fall for generalized weakness. Generalized weakness/fall Pain throughout the body due to fall, pain management, improving likely in the setting of urinary tract infection and progressive debility.? Treat UTI physical therapy consultation rec STR GNR cystitis in patient with neurogenic bladder with urostomy Continue IV Rocephin.? Continue oxybutynin Right hip osteoarthritis may be contributing to weakness. Consulting Physical therapy as above and appreciate recommendations.? Was evaluated by Orthopedic surgery during previous admission who recommended reassessment as an outpatient. Permanent atrial fibrillation on Coumadin.? Goal INR 2-3.? Rate controlled Chronic congestive heart failure with preserved ejection fraction currently compensated. 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 Continue wound care.? No concern for infection.? Arterial ultrasound during previous admission with degree of distal arterial disease, recommend outpatient vascular surgery eval Chronic kidney disease stage 3 creatinine at baseline.? DVT prophylaxis: On Coumadin Attending Dr. Casanova Full code Patient will require two night minimum hospital stay for treatment of urinary tract infection and evaluation of weakness.? Also needs physical therapy for safe disposition.? Quality Stroke Does the patient have a stroke diagnosis?: No VTE Prior VTE?: No VTE Risk Level:: Medical - moderate - high VTE Device Contraindication: Treatment Not Indicated VTE Drug Contraindication: N/A - Med Ordered
[2022-08-17 11:09] LABS: Glucose, Whole Blood 139 mg/dL (60-115)
[2022-08-17] MEDS: oxyCODONE HCl Immed Release 5 MG TABLET PO (11:40)
--- NOTE | 2022-08-17 12:40 | MHC.CM.PN ---
IMM EXPLAINED TO DAUGHTER ROBBIE VIA TELEPHONE, COPY WILL BE MAILED CERTIFIED TO HER PATIENT LETHARGIC AT THIS TIME. PER CHART REVIEW AND SPEAKING TO DAUGHTERS(ROBBIE AND LIZBETH), PT LIVES IN SINGLE FAMILY HOUSE WITH DAUGHTER LIZBETH. USES [employer]ALK[employer] AT HOME. PER DAUGHTER, HAS [facility] AND UNSURE IF HAS AN VNA BEYOND THAT. PT RX REC STR BUT BOTH REFERRAL TO VNA AND STR FACILITIES PLACED. WILL VERIFY WITH PATIENT WHAT HER PREFERENCES ARE. NO HCP ON FILE, WILL REPROACH REGARDING DOING ONE. COVID VAX X4. PCP DR. GUADALUPE. DP: HOME WITH VNA VS STR, CM WILL CONTINUE TO FOLLOW HOSPITAL COURSE.
[2022-08-17 14:15] VITALS: BP 112/55; PULSE 99; RESP 18; TEMP 37.1; O2SAT 96
[2022-08-17 15:52] LABS: Glucose, Whole Blood 178 mg/dL (60-115)
[2022-08-17] MEDS: Lidocaine 4 % Patch ADH..PATCH 1 PATCH TRANSDERMA (16:22)
[2022-08-17] MEDS: Warfarin Sodium 1 MG TABLET PO (16:22)
[2022-08-17] MEDS: Insulin Lispro 100 UNIT/ML 3 ML VIAL SUBCUT ×2 (16:23→22:07)
[2022-08-17 20:00] LABS: Glucose, Whole Blood 181 mg/dL (60-115)
[2022-08-17] MEDS: cefTRIAXone sodium 1 GM in 0.9 % Sodium Chloride 50 ML IV (21:56)
[2022-08-17] MEDS: Insulin Glargine,Hum.rec.anlog 100 UNIT/ML 10 ML VIAL 15 UNIT SUBCUT (21:57)
[2022-08-18] VITALS: BP 129/85; PULSE 97; RESP 16; TEMP 37.1; O2SAT 92
[2022-08-18] MEDS: Levothyroxine Sodium 25 MCG TABLET PO (05:33)
[2022-08-18 07:30] LABS: INTERNATIONAL NORM RATIO 1.6 (0.9-1.1); Prothrombin Time 18.4 SEC (10.0-13.1)
[2022-08-18 07:33] LABS: Glucose, Whole Blood 128 mg/dL (60-115)
[2022-08-18 07:54] VITALS: BP 135/61; PULSE 105; RESP 20; TEMP 36.7; O2SAT 94
--- NOTE | 2022-08-18 09:42 | MHC.CM.PN ---
CM MET WITH PT, DECLINES STR IF [facility] CAN'T OFFER. IS ACTIVE WITH [facility], CONFIRMED AND WILL FOLLOW FOR DC NEEDS. SHE IS ACTIVE WITH SN, PT AND OT.
--- NOTE | 2022-08-18 10:45 | HO.PM.IMPN ---
Subjective Subjective Date of Service: 08/18/22 Review of Systems Follow up fall Soreness is subsiding, still with right ankle pain denies chest pain, sob, nausea, vomiting, diarrhea Physical Exam Vital Signs: Vital Signs: Last Vital Signs Temp 98.1 F 08/18/22 07:54 Pulse 105 H 08/18/22 07:54 Resp 20 08/18/22 07:54 BP 135/61 08/18/22 07:54 Pulse Ox 94 08/18/22 07:54 O2 Del Method 08/18/22 07:54 BMI result Body Mass Index 32.8 Appearing in no acute distress lung sounds are clear to auscultation heart regular rate rhythm, clear S1, S2 positive bowel sounds, abdomen is soft, nontender neuro patient is alert x3, no focal deficits Right arm with erythema and edema Right ankle venous ulcer Urostomy intact Objective Data Active Medications Acetaminophen (Acetaminophen 325 Mg Tablet) 650 mg PO Q6H PRN PRN Reason: Pain, Mild (Pain Scale 1-3) Last Admin: 08/17/22 08:56 Dose: 650 mg Documented By: ERNESTINE Amlodipine Besylate (Amlodipine Besylate 5 Mg Tablet) 5 mg PO DAILY [facility]; Protocol Last Admin: 08/17/22 08:49 Dose: 5 mg Documented By: ERNESTINE Aspirin (Aspirin Enteric Coated 81 Mg Tablet.) 81 mg PO DAILY [facility] Last Admin: 08/17/22 08:50 Dose: 81 mg Documented By: ERNESTINE Dextrose (Dextrose 50 % 25 Gm/50 Ml Syringe) 25 gm IVPUSH Q15M PRN; Protocol PRN Reason: per Hypoglycemia Standing Ord. Dextrose (Dextrose 50 % 25 Gm/50 Ml Syringe) 25 gm IVPUSH Q15M PRN; Protocol PRN Reason: per Hypoglycemia Standing Ord. Furosemide (Furosemide 40 Mg Tablet) 40 mg PO BID@0900,1800 [facility]; Protocol Last Admin: 08/17/22 16:22 Dose: 40 mg Documented By: ERNESTINE Glucose (Glucose Gel 15 Gm Gel..Gram.) 15 gm PO Q15M PRN; Protocol PRN Reason: per Hypoglycemia Standing Ord. Glucose (Glucose Gel 15 Gm Gel..Gram.) 15 gm PO Q15M PRN; Protocol PRN Reason: per Hypoglycemia Standing Ord. Ceftriaxone Sodium 1 gm/ (Sodium Chloride) 50 mls @ 100 mls/hr IV Q24H [facility] Last Infusion: 08/17/22 23:17 Dose: 0 mls/hr Documented By: JENIFEFR Insulin Glargine (Insulin Glargine,Hum.Rec.Anlog 100 Unit/Ml 10 Ml Vial) 15 unit SUBCUT BEDTIME [facility] Last Admin: 08/17/22 21:57 Dose: 15 unit Documented By: JENIFFER Insulin Human Lispro (Insulin Lispro 100 Unit/Ml 3 Ml Vial) 0 unit SUBCUT QIDACHS [facility]; Protocol Last Admin: 08/18/22 07:53 Dose: Not Given Documented By: NANDINI Non-Admin Reason: No Insulin Coverage Levothyroxine Sodium (Levothyroxine Sodium 25 Mcg Tablet) 25 mcg PO DAILY@0600 [facility] Last Admin: 08/18/22 05:33 Dose: 25 mcg Documented By: JENIFFER Lidocaine (Lidocaine 4 % Patch Adh..Patch) 1 patch TRANSDERMA DAILY [facility]; Protocol Last Admin: 08/17/22 16:22 Dose: 1 patch Documented By: ERNESTINE Melatonin (Melatonin 3 Mg Tablet) 6 mg PO BEDTIME PRN PRN Reason: Insomnia Metoprolol Succinate (Metoprolol Succinate Er 100 Mg Tab.Er.24h) 200 mg PO DAILY [facility]; Protocol Last Admin: 08/17/22 08:50 Dose: 200 mg Documented By: ERNESTINE Morphine Sulfate (Morphine Sulfate 2 Mg/Ml Cartridge) 2 mg IVPUSH Q4H PRN; Protocol PRN Reason: Pain, Severe (Pain Scale 7-10) Last Admin: 08/17/22 08:55 Dose: 2 mg Documented By: ERNESTINE Ondansetron HCl (Ondansetron Hcl 4 Mg/2 Ml Vial) 4 mg IVPUSH Q8H PRN PRN Reason: Nausea and Vomiting Oxybutynin Chloride (Oxybutynin Chloride Er 5 Mg Tab.Er.24) 10 mg PO DAILY [facility] Last Admin: 08/17/22 08:50 Dose: 10 mg Documented By: ERNESTINE Oxycodone HCl (Oxycodone Hcl Immed Release 5 Mg Tablet) 5 mg PO Q4H PRN PRN Reason: Pain, Severe (Pain Scale 7-10) Last Admin: 08/17/22 11:40 Dose: 5 mg Documented By: ERNESTINE Sodium Chloride (0.9 % Sodium Chloride Flush 3 Ml Syringe) 3 ml IVFLUSH QSHIFT [facility] Last Admin: 08/17/22 22:13 Dose: 3 ml Documented By: ALINEI Warfarin Sodium (Warfarin Sodium 1 Mg Tablet) 1 mg PO Q48H [facility] Last Admin: 08/17/22 16:22 Dose: 1 mg Documented By: ERNESTINE Warfarin Sodium (Warfarin Sodium 2 Mg Tablet) 2 mg PO Q48H [facility] Labs CBC & Chem 7: 08/17/22 06:46 08/17/22 06:46 Labs: Laboratory Results - last 24 hr 08/17/22 08/17/22 08/17/22 11:06 15:46 19:57 PT INR POC Glucose 139 H 178 H 181 H 08/18/22 08/18/22 07:05 07:26 PT 18.4 H INR 1.6 H POC Glucose 128 H Microbiology Microbiology Results: Microbiology 08/15/22 19:45 Urine Culture - Final Urine clean catch - Urine pires top Escherichia coli Assessment and Plan (1) UTI (urinary tract infection): Status: Acute Plan This is a 81-year-old with past medical history of permanent atrial fibrillation on Coumadin, right hip osteoarthritis, chronic congestive heart failure with preserved ejection fraction, CKD stage 3, hypothyroidism, insulin-dependent diabetes mellitus, essential hypertension, neurogenic bladder presents to emergency department after a fall for generalized weakness. Generalized weakness/fall Pain throughout the body due to fall, pain management, improving likely in the setting of urinary tract infection and progressive debility.? Treat UTI physical therapy consultation rec STR Ecoli UTI/ cystitis in patient with neurogenic bladder with urostomy Continue IV Rocephin.? Continue oxybutynin Right hip osteoarthritis may be contributing to weakness. Physical therapy eval Was evaluated by Orthopedic surgery during previous admission who recommended reassessment as an outpatient. Permanent atrial fibrillation. INR 1.6 on Coumadin.? Goal INR 2-3.? Rate controlled Chronic congestive heart failure with preserved ejection fraction currently compensated. 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 Continue wound care.? No concern for infection.? Arterial ultrasound during previous admission with degree of distal arterial disease, recommend outpatient vascular surgery eval Chronic kidney disease stage 3 creatinine at baseline.? DVT prophylaxis: On Coumadin Attending Dr. Estrada Full code Patient will require two night minimum hospital stay for treatment of urinary tract infection and evaluation of weakness.? Also needs physical therapy for safe disposition.? Quality Stroke Does the patient have a stroke diagnosis?: No VTE Prior VTE?: No VTE Risk Level:: Medical - moderate - high VTE Device Contraindication: Treatment Not Indicated VTE Drug Contraindication: N/A - Med Ordered
[2022-08-18] MEDS: Metoprolol Succinate ER 100 MG TAB.ER.24H 200 MG PO (10:49)
[2022-08-18] MEDS: Furosemide 40 MG TABLET PO ×2 (10:50→17:15)
[2022-08-18] MEDS: amLODIPine Besylate 5 MG TABLET PO (10:50)
[2022-08-18] MEDS: Lidocaine 4 % Patch ADH..PATCH 1 PATCH TRANSDERMA (10:50)
[2022-08-18] MEDS: Aspirin Enteric Coated 81 MG TABLET.DR PO (10:50)
[2022-08-18] MEDS: 0.9 % Sodium Chloride Flush 3 ML SYRINGE IVFLUSH ×3 (10:51→20:19)
[2022-08-18 11:29] LABS: Glucose, Whole Blood 216 mg/dL (60-115)
[2022-08-18 11:46] VITALS: BP 143/77; PULSE 105; RESP 20; TEMP 36.6; O2SAT 96
[2022-08-18] MEDS: Insulin Lispro 100 UNIT/ML 3 ML VIAL SUBCUT ×2 (11:48→17:15)
[2022-08-18 14:43] VITALS: BP 143/77; PULSE 105; O2SAT 96
[2022-08-18 15:52] VITALS: BP 125/56; PULSE 103; RESP 18; TEMP 36.1; O2SAT 95
[2022-08-18 16:28] LABS: Glucose, Whole Blood 186 mg/dL (60-115)
[2022-08-18] MEDS: Warfarin Sodium 2 MG TABLET PO (17:15)
[2022-08-18 20:11] LABS: Glucose, Whole Blood 122 mg/dL (60-115)
[2022-08-18] MEDS: Insulin Glargine,Hum.rec.anlog 100 UNIT/ML 10 ML VIAL 15 UNIT SUBCUT (20:13)
[2022-08-18] MEDS: cefTRIAXone sodium 1 GM in 0.9 % Sodium Chloride 50 ML IV (20:18)
[2022-08-18 23:53] VITALS: BP 138/76; PULSE 89; RESP 18; TEMP 37.1; O2SAT 97
[2022-08-19 05:14] LABS: Glucose, Whole Blood 131 mg/dL (60-115)
[2022-08-19] MEDS: Levothyroxine Sodium 25 MCG TABLET PO (06:15)
[2022-08-19 07:02] LABS: INTERNATIONAL NORM RATIO 1.6 (0.9-1.1); Prothrombin Time 19.2 SEC (10.0-13.1)
[2022-08-19 07:43] VITALS: BP 126/65; PULSE 94; RESP 12; TEMP 36.4; O2SAT 96
[2022-08-19 07:55] LABS: Glucose, Whole Blood 155 mg/dL (60-115)
[2022-08-19] MEDS: 0.9 % Sodium Chloride Flush 3 ML SYRINGE IVFLUSH ×3 (08:13→20:50)
[2022-08-19] MEDS: Insulin Lispro 100 UNIT/ML 3 ML VIAL SUBCUT ×3 (08:13→20:49)
[2022-08-19] MEDS: amLODIPine Besylate 5 MG TABLET PO (08:13)
[2022-08-19] MEDS: Metoprolol Succinate ER 100 MG TAB.ER.24H 200 MG PO (08:14)
[2022-08-19] MEDS: Aspirin Enteric Coated 81 MG TABLET.DR PO (08:14)
[2022-08-19] MEDS: Furosemide 40 MG TABLET PO ×2 (08:14→18:06)
[2022-08-19] MEDS: Lidocaine 4 % Patch ADH..PATCH 1 PATCH TRANSDERMA (08:14)
[2022-08-19] MEDS: Morphine Sulfate 2 MG/ML CARTRIDGE IVPUSH (08:16)
--- NOTE | 2022-08-19 11:14 | P.PNIM_ITS ---
Subjective Subjective Date of Service: 08/19/22 Review of Systems Follow up fall Soreness is subsiding, still with right ankle pain denies chest pain, sob, nausea, vomiting, diarrhea Physical Exam Vital Signs: Vital Signs: Last Vital Signs Temp 97.6 F 08/19/22 07:43 Pulse 94 08/19/22 07:43 Resp 12 08/19/22 07:43 BP 126/65 08/19/22 07:43 Pulse Ox 96 08/19/22 07:43 O2 Del Method 08/19/22 07:43 BMI result Body Mass Index 32.8 Appearing in no acute distress lung sounds are clear to auscultation heart regular rate rhythm, clear S1, S2 positive bowel sounds, abdomen is soft, nontender neuro patient is alert x3, no focal deficits Right ankle dl wrap with venous ulcer Objective Data Active Medications Acetaminophen (Acetaminophen 325 Mg Tablet) 650 mg PO Q6H PRN PRN Reason: Pain, Mild (Pain Scale 1-3) Last Admin: 08/17/22 08:56 Dose: 650 mg Documented By: ERNESTINE Amlodipine Besylate (Amlodipine Besylate 5 Mg Tablet) 5 mg PO DAILY [facility]; Protocol Last Admin: 08/19/22 08:13 Dose: 5 mg Documented By: NANDINI Aspirin (Aspirin Enteric Coated 81 Mg Tablet.) 81 mg PO DAILY [facility] Last Admin: 08/19/22 08:14 Dose: 81 mg Documented By: NANDINI Dextrose (Dextrose 50 % 25 Gm/50 Ml Syringe) 25 gm IVPUSH Q15M PRN; Protocol PRN Reason: per Hypoglycemia Standing Ord. Dextrose (Dextrose 50 % 25 Gm/50 Ml Syringe) 25 gm IVPUSH Q15M PRN; Protocol PRN Reason: per Hypoglycemia Standing Ord. Furosemide (Furosemide 40 Mg Tablet) 40 mg PO BID@0900,1800 [facility]; Protocol Last Admin: 08/19/22 08:14 Dose: 40 mg Documented By: NANDINI Glucose (Glucose Gel 15 Gm Gel..Gram.) 15 gm PO Q15M PRN; Protocol PRN Reason: per Hypoglycemia Standing Ord. Glucose (Glucose Gel 15 Gm Gel..Gram.) 15 gm PO Q15M PRN; Protocol PRN Reason: per Hypoglycemia Standing Ord. Ceftriaxone Sodium 1 gm/ (Sodium Chloride) 50 mls @ 100 mls/hr IV Q24H [facility] Last Infusion: 08/18/22 20:59 Dose: 0 mls/hr Documented By: ENOC Insulin Glargine (Insulin Glargine,Hum.Rec.Anlog 100 Unit/Ml 10 Ml Vial) 15 unit SUBCUT BEDTIME [facility] Last Admin: 08/18/22 20:13 Dose: 15 unit Documented By: ENOC Insulin Human Lispro (Insulin Lispro 100 Unit/Ml 3 Ml Vial) 0 unit SUBCUT Q IDACHS [facility]; Protocol Last Admin: 08/19/22 08:13 Dose: 2 unit Documented By: NANDINI Levothyroxine Sodium (Levothyroxine Sodium 25 Mcg Tablet) 25 mcg PO DAILY@0600 [facility] Last Admin: 08/19/22 06:15 Dose: 25 mcg Documented By: ENOC Lidocaine (Lidocaine 4 % Patch Adh..Patch) 1 patch TRANSDERMA DAILY [facility]; Protocol Last Admin: 08/19/22 08:14 Dose: 1 patch Documented By: NANDINI Melatonin (Melatonin 3 Mg Tablet) 6 mg PO BEDTIME PRN PRN Reason: Insomnia Metoprolol Succinate (Metoprolol Succinate Er 100 Mg Tab.Er.24h) 200 mg PO DAILY [facility]; Protocol Last Admin: 08/19/22 08:14 Dose: 200 mg Documented By: NANDINI Morphine Sulfate (Morphine Sulfate 2 Mg/Ml Cartridge) 2 mg IVPUSH Q4H PRN; Protocol PRN Reason: Pain, Severe (Pain Scale 7-10) Last Admin: 08/19/22 08:16 Dose: 2 mg Documented By: NANDINI Ondansetron HCl (Ondansetron Hcl 4 Mg/2 Ml Vial) 4 mg IVPUSH Q8H PRN PRN Reason: Nausea and Vomiting Oxybutynin Chloride (Oxybutynin Chloride Er 5 Mg Tab.Er.24) 10 mg PO DAILY [facility] Last Admin: 08/19/22 08:13 Dose: 10 mg Documented By: NANDINI Oxycodone HCl (Oxycodone Hcl Immed Release 5 Mg Tablet) 5 mg PO Q4H PRN PRN Reason: Pain, Severe (Pain Scale 7-10) Last Admin: 08/17/22 11:40 Dose: 5 mg Documented By: HO.N-KONGM Sodium Chloride (0.9 % Sodium Chloride Flush 3 Ml Syringe) 3 ml IVFLUSH QSHIFT [facility] Last Admin: 08/19/22 08:13 Dose: 3 ml Documented By: NANDINI Warfarin Sodium (Warfarin Sodium 2.5 Mg Tablet) 2.5 mg PO DAILY@1800 [facility] Labs CBC & Chem 7: 08/17/22 06:46 08/17/22 06:46 Labs: Laboratory Results - last 24 hr 08/18/22 08/18/22 08/18/22 11:22 16:20 19:37 PT INR POC Glucose 216 H 186 H 131 H 08/18/22 08/19/22 08/19/22 20:08 06:13 07:43 PT 19.2 H INR 1.6 H POC Glucose 122 H 155 H Microbiology Microbiology Results: Microbiology 08/15/22 19:45 Urine Culture - Final Urine clean catch - Urine pires top Escherichia coli Assessment and Plan (1) UTI (urinary tract infection): Status: Acute Plan This is a 81-year-old with past medical history of permanent atrial fibrillation on Coumadin, right hip osteoarthritis, chronic congestive heart failure with preserved ejection fraction, CKD stage 3, hypothyroidism, insulin-dependent diabetes mellitus, essential hypertension, neurogenic bladder presents to emergency department after a fall for generalized weakness. Nondisplaced ankle fracture, right, unspecified Pain management orthopedic consultation Generalized weakness/fall Pain throughout the body due to fall, pain management, improving likely in the setting of urinary tract infection and progressive debility.? Treat UTI physical therapy consultation rec STR Ecoli UTI/ cystitis in patient with neurogenic bladder with urostomy Continue IV Rocephin.? Continue oxybutynin Right hip osteoarthritis may be contributing to weakness. Physical therapy eval Was evaluated by Orthopedic surgery during previous admission who recommended reassessment as an outpatient. Permanent atrial fibrillation. INR 1.6 on Coumadin.? Goal INR 2-3.? Rate controlled Chronic congestive heart failure with preserved ejection fraction currently compensated. 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 Continue wound care.? No concern for infection.? Arterial ultrasound during previous admission with degree of distal arterial disease, recommend outpatient vascular surgery eval Chronic kidney disease stage 3 creatinine at baseline.? DVT prophylaxis: On Coumadin Attending Dr. Estrada Full code Patient will require two night minimum hospital stay for treatment of urinary tract infection and evaluation of weakness.? Also needs physical therapy for safe disposition.? Quality Stroke Does the patient have a stroke diagnosis?: No VTE Prior VTE?: No VTE Risk Level:: Medical - moderate - high VTE Device Contraindication: Treatment Not Indicated VTE Drug Contraindication: N/A - Med Ordered
[2022-08-19 11:35] LABS: Glucose, Whole Blood 106 mg/dL (60-115)
[2022-08-19 15:13] VITALS: BP 150/98; PULSE 114; RESP 18; TEMP 36.1; O2SAT 98
[2022-08-19] MEDS: Warfarin Sodium 2.5 MG TABLET PO (18:05)
[2022-08-19] MEDS: oxyCODONE HCl Immed Release 5 MG TABLET PO (18:31)
[2022-08-19 19:55] LABS: Glucose, Whole Blood 214 mg/dL (60-115)
[2022-08-19 19:55] LABS: Glucose, Whole Blood 174 mg/dL (60-115)
[2022-08-19] MEDS: Insulin Glargine,Hum.rec.anlog 100 UNIT/ML 10 ML VIAL 15 UNIT SUBCUT (20:50)
[2022-08-19] MEDS: cefTRIAXone sodium 1 GM in 0.9 % Sodium Chloride 50 ML IV (22:23)
[2022-08-19 23:15] VITALS: BP 117/62; PULSE 87; RESP 19; TEMP 36.5; O2SAT 92
[2022-08-20] MEDS: Levothyroxine Sodium 25 MCG TABLET PO (06:44)
[2022-08-20 07:10] LABS: INTERNATIONAL NORM RATIO 2.1 (0.9-1.1); Prothrombin Time 24.8 SEC (10.0-13.1)
[2022-08-20 07:37] LABS: Glucose, Whole Blood 144 mg/dL (60-115)
[2022-08-20 07:42] VITALS: BP 123/71; PULSE 95; RESP 18; TEMP 36.2; O2SAT 100
[2022-08-20] MEDS: 0.9 % Sodium Chloride Flush 3 ML SYRINGE IVFLUSH ×3 (09:02→22:01)
[2022-08-20] MEDS: Metoprolol Succinate ER 100 MG TAB.ER.24H 200 MG PO (09:03)
[2022-08-20] MEDS: Furosemide 40 MG TABLET PO ×2 (09:03→18:25)
[2022-08-20] MEDS: Aspirin Enteric Coated 81 MG TABLET.DR PO (09:03)
[2022-08-20] MEDS: amLODIPine Besylate 5 MG TABLET PO (09:03)
[2022-08-20] MEDS: Lidocaine 4 % Patch ADH..PATCH 1 PATCH TRANSDERMA (09:04)
--- NOTE | 2022-08-20 09:37 | MHC.CM.PN ---
Female 81 DX S/P Fall new ANKLE FX. Ortho has been consulted. Clinical update has been sent to Irma and Zhang Mendoza. PT and OT notes sent. Irma is waiting for Ortho consult to review. DP STR via S
[2022-08-20 09:51] VITALS: BP 123/71; PULSE 95; O2SAT 100
[2022-08-20 11:44] LABS: Glucose, Whole Blood 176 mg/dL (60-115)
--- NOTE | 2022-08-20 12:30 | P.CONOP_ITS ---
History of Present Illness HPI Consult date: 08/20/22 Chief complaint: Fall Narrative: This is a 81-year-old with past medical history of permanent atrial fibrillation on Coumadin, right hip osteoarthritis, chronic congestive heart failure with preserved ejection fraction, CKD stage 3, hypothyroidism, insulin-dependent diabetes mellitus, essential hypertension, neurogenic bladder presents to emergency department after a fall. She was admitted to the medical service for further workup and orthopedics was consulted for distal fibular fracture right ankle. Review of Systems Constitutional: Constitutional: Reports as per [facility] Past Medical History Medical History Atrial fibrillation CAD (coronary artery disease) CKD (chronic kidney disease) Congestive heart failure Diabetes Hypertension Hypothyroidism Hypotonic neurogenic bladder Leg wound, left PAF (paroxysmal atrial fibrillation) Urinary incontinence Varicose vein of leg Family History Family History Father Hx of angina pectoris Myocardial infarction Mother Ovarian cancer Stomach cancer Maternal Grandfather Hardening of the arteries of the heart Surgical History Surgical History H/O heart artery stent H/O nasal polypectomy History of tonsillectomy and adenoidectomy History of tubal ligation Hx of cholecystectomy Social History Social History Household Members: Children Household Members Other:: daughter Housing: House Do you presently have visiting nurse or other home services: Yes (meals and wheels, wound care) Alcohol intake: never Patient Tobacco Use Status: Never used Tobacco Second Hand Smoke Exposure: No service: No Current occupational status: retired [employer] Allergies Allergy/AdvReac Type Severity Reaction Status Date / Time No Known Allergies Allergy Verified 06/26/22 13:07 [No Known Allergies*] Active Medications: Current Medications Acetaminophen (Acetaminophen 325 Mg Tablet) 650 mg PO Q6H PRN PRN Reason: Pain, Mild (Pain Scale 1-3) Last Admin: 08/17/22 08:56 Dose: 650 mg Amlodipine Besylate (Amlodipine Besylate 5 Mg Tablet) 5 mg PO DAILY [facility]; Protocol Last Admin: 08/20/22 09:03 Dose: 5 mg Aspirin (Aspirin Enteric Coated 81 Mg Tablet.) 81 mg PO DAILY [facility] Last Admin: 08/20/22 09:03 Dose: 81 mg Dextrose (Dextrose 50 % 25 Gm/50 Ml Syringe) 25 gm IVPUSH Q15M PRN; Protocol PRN Reason: per Hypoglycemia Standing Ord. Dextrose (Dextrose 50 % 25 Gm/50 Ml Syringe) 25 gm IVPUSH Q15M PRN; Protocol PRN Reason: per Hypoglycemia Standing Ord. Furosemide (Furosemide 40 Mg Tablet) 40 mg PO BID@0900,1800 [facility]; Protocol Last Admin: 08/20/22 09:03 Dose: 40 mg Glucose (Glucose Gel 15 Gm Gel..Gram.) 15 gm PO Q15M PRN; Protocol PRN Reason: per Hypoglycemia Standing Ord. Glucose (Glucose Gel 15 Gm Gel..Gram.) 15 gm PO Q15M PRN; Protocol PRN Reason: per Hypoglycemia Standing Ord. Ceftriaxone Sodium 1 gm/ (Sodium Chloride) 50 mls @ 100 mls/hr IV Q24H [facility] Last Infusion: 08/19/22 22:56 Dose: Infused Insulin Glargine (Insulin Glargine,Hum.Rec.Anlog 100 Unit/Ml 10 Ml Vial) 15 unit SUBCUT BEDTIME [facility] Last Admin: 08/19/22 20:50 Dose: 15 unit Insulin Human Lispro (Insulin Lispro 100 Unit/Ml 3 Ml Vial) 0 unit SUBCUT QIDACHS [facility]; Protocol Last Admin: 08/20/22 07:43 Dose: Not Given Levothyroxine Sodium (Levothyroxine Sodium 25 Mcg Tablet) 25 mcg PO DAILY@0600 [facility] Last Admin: 08/20/22 06:44 Dose: 25 mcg Lidocaine (Lidocaine 4 % Patch Adh..Patch) 1 patch TRANSDERMA DAILY [facility]; Protocol Last Admin: 08/20/22 09:04 Dose: 1 patch Melatonin (Melatonin 3 Mg Tablet) 6 mg PO BEDTIME PRN PRN Reason: Insomnia Metoprolol Succinate (Metoprolol Succinate Er 100 Mg Tab.Er.24h) 200 mg PO DAILY [facility]; Protocol Last Admin: 08/20/22 09:03 Dose: 200 mg Morphine Sulfate (Morphine Sulfate 2 Mg/Ml Cartridge) 2 mg IVPUSH Q4H PRN; Protocol PRN Reason: Pain, Severe (Pain Scale 7-10) Last Admin: 08/19/22 08:16 Dose: 2 mg Ondansetron HCl (Ondansetron Hcl 4 Mg/2 Ml Vial) 4 mg IVPUSH Q8H PRN PRN Reason: Nausea and Vomiting Oxybutynin Chloride (Oxybutynin Chloride Er 5 Mg Tab.Er.24) 10 mg PO DAILY [facility] Last Admin: 08/20/22 09:03 Dose: 10 mg Oxycodone HCl (Oxycodone Hcl Immed Release 5 Mg Tablet) 5 mg PO Q4H PRN PRN Reason: Pain, Severe (Pain Scale 7-10) Last Admin: 08/19/22 18:31 Dose: 5 mg Sodium Chloride (0.9 % Sodium Chloride Flush 3 Ml Syringe) 3 ml IVFLUSH QSHIFT [facility] Last Admin: 08/20/22 09:02 Dose: 3 ml Warfarin Sodium (Warfarin Sodium 2.5 Mg Tablet) 2.5 mg PO DAILY@1800 [facility] Last Admin: 08/19/22 18:05 Dose: 2.5 mg Home Medications Medication Instructions Recorded Confirmed Last Taken Type levothyroxine 25 mcg tablet 25 mcg PO DAILY 09/05/20 08/15/22 Unknown History oxybutynin chloride 10 mg 10 mg PO DAILY 09/05/20 08/15/22 Unknown History tablet,extended release 24 hr aspirin 81 mg tablet,delayed 81 mg PO DAILY 09/11/21 08/15/22 Unknown History release pen needle, diabetic 32 gauge x #50 ea 12/31/21 06/27/22 Unknown History (BD Cathy 2nd Gen Pen Needle) atorvastatin 10 mg tablet 10 mg PO BEDTIME 02/06/22 08/15/22 Unknown History insulin glargine 100 unit/mL 20 unit subcut BEDTIME 08/15/22 08/15/22 Unknown History subcutaneous solution (Lantus U-100 Insulin) Physical Exam Vital Signs: Vital Signs: Last Vital Signs Temp 97.2 F 08/20/22 07:42 Pulse 95 08/20/22 09:51 Resp 18 08/20/22 07:42 BP 123/71 08/20/22 09:51 Pulse Ox 100 08/20/22 09:51 O2 Del Method 08/20/22 07:42 BMI result Body Mass Index 32.8 Const: General: cooperative, healthy appearing, comfortable and no acute distress Extrem: Other: Right ankle normal to inspection, no open wounds. She is in an raymon wrap. She has tenderness over the distal fibula. Pulses and sensation intact. Results Labs Result Diagrams: 08/17/22 06:46 08/17/22 06:46 Labs: Abnormal lab results 08/19/22 08/19/22 08/20/22 Range/Units 16:05 19:52 06:28 PT 24.8 H (10.0-13.1) SEC INR 2.1 H (0.9-1.1) POC Glucose 174 H 214 H (60-115) mg/dL 08/20/22 08/20/22 Range/Units 07:34 11:40 PT (10.0-13.1) SEC INR (0.9-1.1) POC Glucose 144 H 176 H (60-115) mg/dL H & H 08/15/22 08/16/22 08/17/22 Range/Units 16:20 05:36 06:46 Hgb 12.7 12.6 11.9 L (12.0-16.0) g/dl Hct 39.9 38.7 37.5 (37.0-47.0) % Coagulation 08/15/22 08/17/22 08/18/22 Range/Units 17:33 08:12 07:05 INR 2.1 H 1.8 H 1.6 H (0.9-1.1) 08/19/22 08/20/22 Range/Units 06:13 06:28 INR 1.6 H 2.1 H (0.9-1.1) All other labs normal. Assessment and Plan (1) Nondisplaced fracture of distal end of fibula: Status: Acute Plan I recommend a tall walking boot, she can WBAT. She can follow up with our office once she is discharged for routine xrays. No surgical intervention warranted. Procedures Date of Service Date of Service: 08/20/22
--- NOTE | 2022-08-20 14:30 | HO.PM.IMPN ---
Subjective Subjective Date of Service: 08/20/22 Interval History: Patient has been seen today. Complains of pain in her right foot / leg. Denies any fever chills cough or sputum production. Denies any nausea vomiting or diarrhea noted spoke to the RN at bedside, no medications reported. Physical Exam Vital Signs: Vital Signs: Last Vital Signs Temp 97.2 F 08/20/22 07:42 Pulse 95 08/20/22 09:51 Resp 18 08/20/22 07:42 BP 123/71 08/20/22 09:51 Pulse Ox 100 08/20/22 09:51 O2 Del Method 08/20/22 07:42 BMI result Body Mass Index 32.8 Gen: Appears be in no acute distress HEENT: NCAT, Moist mucosa. Pulmonary: Vesicular breath sounds, fair air entry CVS: Normal S1-S2 Abdomen: BS+, Soft, Nontender Extremities: Warm well perfused; right leg is warm, erythematous; bilateral leg has chronic lymphedema; the right ankle exam limited secondary to the pain he Neuro: Alert and awake. Objective Data Active Medications Acetaminophen (Acetaminophen 325 Mg Tablet) 650 mg PO Q6H PRN PRN Reason: Pain, Mild (Pain Scale 1-3) Last Admin: 08/17/22 08:56 Dose: 650 mg Documented By: ERNESTINE Amlodipine Besylate (Amlodipine Besylate 5 Mg Tablet) 5 mg PO DAILY [facility]; Protocol Last Admin: 08/20/22 09:03 Dose: 5 mg Documented By: SADIQ Aspirin (Aspirin Enteric Coated 81 Mg Tablet.) 81 mg PO DAILY [facility] Last Admin: 08/20/22 09:03 Dose: 81 mg Documented By: SADIQ Dextrose (Dextrose 50 % 25 Gm/50 Ml Syringe) 25 gm IVPUSH Q15M PRN; Protocol PRN Reason: per Hypoglycemia Standing Ord. Dextrose (Dextrose 50 % 25 Gm/50 Ml Syringe) 25 gm IVPUSH Q15M PRN; Protocol PRN Reason: per Hypoglycemia Standing Ord. Furosemide (Furosemide 40 Mg Tablet) 40 mg PO BID@0900,1800 [facility]; Protocol Last Admin: 08/20/22 09:03 Dose: 40 mg Documented By: SADIQ Glucose (Glucose Gel 15 Gm Gel..Gram.) 15 gm PO Q15M PRN; Protocol PRN Reason: per Hypoglycemia Standing Ord. Glucose (Glucose Gel 15 Gm Gel..Gram.) 15 gm PO Q15M PRN; Protocol PRN Reason: per Hypoglycemia Standing Ord. Ceftriaxone Sodium 1 gm/ (Sodium Chloride) 50 mls @ 100 mls/hr IV Q24H [facility] Last Infusion: 08/19/22 22:56 Dose: 0 mls/hr Documented By: SHIMA Insulin Glargine (Insulin Glargine,Hum.Rec.Anlog 100 Unit/Ml 10 Ml Vial) 15 unit SUBCUT BEDTIME [facility] Last Admin: 08/19/22 20:50 Dose: 15 unit Documented By: SHIMA Insulin Human Lispro (Insulin Lispro 100 Unit/Ml 3 Ml Vial) 0 unit SUBCUT QIDACHS [facility]; Protocol Last Admin: 08/20/22 13:26 Dose: Not Given Documented By: SADIQ Non-Admin Reason: Patient Refused Levothyroxine Sodium (Levothyroxine Sodium 25 Mcg Tablet) 25 mcg PO DAILY@0600 [facility] Last Admin: 08/20/22 06:44 Dose: 25 mcg Documented By: SHIMA Lidocaine (Lidocaine 4 % Patch Adh..Patch) 1 patch TRANSDERMA DAILY [facility]; Protocol Last Admin: 08/20/22 09:04 Dose: 1 patch Documented By: SADIQ Melatonin (Melatonin 3 Mg Tablet) 6 mg PO BEDTIME PRN PRN Reason: Insomnia Metoprolol Succinate (Metoprolol Succinate Er 100 Mg Tab.Er.24h) 200 mg PO DAILY [facility]; Protocol Last Admin: 08/20/22 09:03 Dose: 200 mg Documented By: SADIQ Morphine Sulfate (Morphine Sulfate 2 Mg/Ml Cartridge) 2 mg IVPUSH Q4H PRN; Protocol PRN Reason: Pain, Severe (Pain Scale 7-10) Last Admin: 08/19/22 08:16 Dose: 2 mg Documented By: NANDINI Ondansetron HCl (Ondansetron Hcl 4 Mg/2 Ml Vial) 4 mg IVPUSH Q8H PRN PRN Reason: Nausea and Vomiting Oxybutynin Chloride (Oxybutynin Chloride Er 5 Mg Tab.Er.24) 10 mg PO DAILY [facility] Last Admin: 08/20/22 09:03 Dose: 10 mg Documented By: SADIQ Oxycodone HCl (Oxycodone Hcl Immed Release 5 Mg Tablet) 5 mg PO Q4H PRN PRN Reason: Pain, Severe (Pain Scale 7-10) Last Admin: 08/19/22 18:31 Dose: 5 mg Documented By: FRANCISCO Sodium Chloride (0.9 % Sodium Chloride Flush 3 Ml Syringe) 3 ml IVFLUSH QSHIFT [facility] Last Admin: 08/20/22 09:02 Dose: 3 ml Documented By: CTORRHemant Warfarin Sodium (Warfarin Sodium 2.5 Mg Tablet) 2.5 mg PO DAILY@1800 [facility] Last Admin: 08/19/22 18:05 Dose: 2.5 mg Documented By: FRANCISCO Labs CBC & Chem 7: 08/17/22 06:46 08/17/22 06:46 Labs: Laboratory Results - last 24 hr 08/19/22 08/19/22 08/20/22 16:05 19:52 06:28 PT 24.8 H INR 2.1 H POC Glucose 174 H 214 H 08/20/22 08/20/22 07:34 11:40 PT INR POC Glucose 144 H 176 H Assessment and Plan (1) Nondisplaced fracture of distal end of fibula: Status: Acute (2) UTI (urinary tract infection): Status: Acute Plan he 81-year-old 81-year-old female with a past medical history of hypertension, hyperlipidemia, diabetes, CHF, CKD, AFib on Coumadin, right hip osteoarthritis, hypothyroidism, neurogenic bladder presented to the hospital after a fall. Fall: Mechanical in nature. CT head, CT C-spine showed no acute intracranial process or helical fracture. Right distal fibular fracture: seen by Orthopedics, recommended tall walking boot, weight-bearing as tolerated, outpatient follow-up in orthopedics clinic of. No surgical intervention recommended currently. He Pain control venous duplex negative for any blood clots chronic bilateral lymphedema: The of Patient had right leg erythema, patient was seen by vascular surgery during the last admission-recommended outpatient vascular surgery clinic follow-up for peripheral vascular disease. UTI: Continue ceftriaxone. cultures growing E coli. History of AFib: Rate controlled. Patient on Coumadin. INR subtherapeutic at 1.6. Continue Coumadin History of hypothyroidism: Continue home levothyroxine history of hypertension: Continue home antihypertensives history of diabetes: Insulin sliding scale history of CHF: Stable DVT prophylaxis: Patient on Coumadin Code status: Full code disposition: PT/ OT recommended STR Quality Stroke Does the patient have a stroke diagnosis?: No VTE Prior VTE?: No VTE Risk Level:: Medical - moderate - high VTE Device Contraindication: Treatment Not Indicated VTE Drug Contraindication: N/A - Med Ordered
[2022-08-20 16:00] VITALS: BP 121/56; PULSE 81; RESP 18; TEMP 36.8; O2SAT 99
[2022-08-20 16:33] LABS: Glucose, Whole Blood 113 mg/dL (60-115)
[2022-08-20] MEDS: Warfarin Sodium 2.5 MG TABLET PO (18:24)
[2022-08-20 20:05] VITALS: BP 105/59; PULSE 98; RESP 18; TEMP 36.7; O2SAT 97
[2022-08-20 20:20] LABS: Glucose, Whole Blood 172 mg/dL (60-115)
[2022-08-20] MEDS: Insulin Lispro 100 UNIT/ML 3 ML VIAL SUBCUT (21:11)
[2022-08-20] MEDS: Insulin Glargine,Hum.rec.anlog 100 UNIT/ML 10 ML VIAL 15 UNIT SUBCUT (21:11)
[2022-08-20] MEDS: cefTRIAXone sodium 1 GM in 0.9 % Sodium Chloride 50 ML IV (21:11)
[2022-08-20 23:26] VITALS: BP 121/68; PULSE 94; RESP 16; TEMP 36.1; O2SAT 95
[2022-08-21] MEDS: Levothyroxine Sodium 25 MCG TABLET PO (05:45)
[2022-08-21 07:56] VITALS: BP 136/74; PULSE 85; RESP 16; TEMP 36.9; O2SAT 95
[2022-08-21 07:59] LABS: Glucose, Whole Blood 135 mg/dL (60-115)
[2022-08-21] MEDS: Aspirin Enteric Coated 81 MG TABLET.DR PO (08:55)
[2022-08-21] MEDS: Metoprolol Succinate ER 100 MG TAB.ER.24H 200 MG PO (08:55)
[2022-08-21] MEDS: 0.9 % Sodium Chloride Flush 3 ML SYRINGE IVFLUSH ×3 (08:56→23:39)
[2022-08-21] MEDS: amLODIPine Besylate 5 MG TABLET PO (08:56)
[2022-08-21] MEDS: Furosemide 40 MG TABLET PO ×2 (08:56→17:48)
[2022-08-21 08:57] LABS: MANUAL DIFF FLAG NO
[2022-08-21 08:59] LABS: Red Blood Count 4.75 X10*6/uL (4.20-5.50); White Blood Count 7.5 X10*3/uL (4.8-10.8)
[2022-08-21 09:00] LABS: Basophils Percent Auto 0.5 % (0-2); Eosinophils Absolute Auto 0.4 X10*3/uL (0.0-0.4); Eosinophils Percent Auto 4.9 % (0-4); Hematocrit 41.3 % (37.0-47.0); Hemoglobin 13.4 g/dl (12.0-16.0); Imm Gran Abs Auto 0.04 X10*3/uL (0.00-0.03); Imm Gran Pct Auto 0.5 % (0.0-0.4); Lymphocytes Absolute Auto 1.3 X10*3/uL (1.2-4.9); Lymphocytes Percent Auto 17.8 % (20-40); Mean Corpuscular HGB Conc 32.4 g/dl (31.0-35.0); Mean Corpuscular Hemoglobin 28.2 pg (27.0-33.0); Mean Corpuscular Volume 86.9 fL (80.0-98.0); Mean Platelet Volume 9.2 fL (9.4-12.3); Monocytes Absolute Auto 0.9 X10*3/uL (0.1-1.2); Neutrophils Absolute Auto 4.8 x10*3/uL (2.0-8.3); Neutrophils Percent Auto 64.3 % (45-73); Platelet Count 315 X10*3/uL (160-400); Red Cell Distribution Width 16.2 % (11.0-16.0)
[2022-08-21 09:06] LABS: INTERNATIONAL NORM RATIO 3.4 (0.9-1.1); Prothrombin Time 40.9 SEC (10.0-13.1)
[2022-08-21 09:34] LABS: Anion Gap 18 (12-20); Blood Urea Nitrogen 23 mg/dL (9-16); Calcium 8.5 mg/dL (8.4-10.2); Carbon Dioxide 26 mmol/L (22-29); Chloride 98 mmol/L (96-108); Creatinine Clr Calc Pharmacy 35.3; Estimated Glomerular Filt Rate 36; Glucose Random 143 mg/dL (60-115); Potassium 3.6 mmol/L (3.3-5.1); Sodium 138 mmol/L (135-145)
[2022-08-21 11:26] LABS: Glucose, Whole Blood 189 mg/dL (60-115)
[2022-08-21] MEDS: oxyCODONE HCl Immed Release 5 MG TABLET PO ×2 (11:35→21:50)
[2022-08-21] MEDS: Insulin Lispro 100 UNIT/ML 3 ML VIAL SUBCUT ×2 (11:35→21:51)
[2022-08-21] MEDS: Lidocaine 4 % Patch ADH..PATCH 1 PATCH TRANSDERMA (11:36)
--- NOTE | 2022-08-21 12:39 | HO.PM.IMPN ---
Subjective Subjective Date of Service: 01/05/23 Interval History: Patient is seen today. Denies any shortness of breath or cough. Denies any chest pain or palpitations. Reports she has boot placed. Physical Exam Vital Signs: Vital Signs: Last Vital Signs Temp 98.4 F 08/21/22 07:56 Pulse 85 08/21/22 07:56 Resp 16 08/21/22 07:56 BP 136/74 08/21/22 07:56 Pulse Ox 95 08/21/22 07:56 O2 Del Method 08/21/22 07:56 BMI result Body Mass Index 32.8 Gen: Appears be in no acute distress HEENT: NCAT, Moist mucosa. Pulmonary: Vesicular breath sounds, fair air entry CVS: Normal S1-S2 Abdomen: BS+, Soft, Nontender Extremities: Warm well perfused Neuro: Alert and awake. Objective Data Active Medications Acetaminophen (Acetaminophen 325 Mg Tablet) 650 mg PO Q6H PRN PRN Reason: Pain, Mild (Pain Scale 1-3) Last Admin: 08/17/22 08:56 Dose: 650 mg Documented By: ERNESTINE Amlodipine Besylate (Amlodipine Besylate 5 Mg Tablet) 5 mg PO DAILY [facility]; Protocol Last Admin: 08/21/22 08:56 Dose: 5 mg Documented By: IRAIDA Aspirin (Aspirin Enteric Coated 81 Mg Tablet.) 81 mg PO DAILY [facility] Last Admin: 08/21/22 08:55 Dose: 81 mg Documented By: IRAIDA Dextrose (Dextrose 50 % 25 Gm/50 Ml Syringe) 25 gm IVPUSH Q15M PRN; Protocol PRN Reason: per Hypoglycemia Standing Ord. Dextrose (Dextrose 50 % 25 Gm/50 Ml Syringe) 25 gm IVPUSH Q15M PRN; Protocol PRN Reason: per Hypoglycemia Standing Ord. Furosemide (Furosemide 40 Mg Tablet) 40 mg PO BID@0900,1800 [facility]; Protocol Last Admin: 08/21/22 08:56 Dose: 40 mg Documented By: IRAIDA Glucose (Glucose Gel 15 Gm Gel..Gram.) 15 gm PO Q15M PRN; Protocol PRN Reason: per Hypoglycemia Standing Ord. Glucose (Glucose Gel 15 Gm Gel..Gram.) 15 gm PO Q15M PRN; Protocol PRN Reason: per Hypoglycemia Standing Ord. Ceftriaxone Sodium 1 gm/ (Sodium Chloride) 50 mls @ 100 mls/hr IV Q24H [facility] Last Infusion: 08/20/22 22:02 Dose: 0 mls/hr Documented By: LUCAS Insulin Glargine (Insulin Glargine,Hum.Rec.Anlog 100 Unit/Ml 10 Ml Vial) 15 unit SUBCUT BEDTIME [facility] Last Admin: 08/20/22 21:11 Dose: 15 unit Documented By: LUCAS Insulin Human Lispro (Insulin Lispro 100 Unit/Ml 3 Ml Vial) 0 unit SUBCUT QIDACHS [facility]; Protocol Last Admin: 08/21/22 11:35 Dose: 2 unit Documented By: IRAIDA Levothyroxine Sodium (Levothyroxine Sodium 25 Mcg Tablet) 25 mcg PO DAILY@0600 [facility] Last Admin: 08/21/22 05:45 Dose: 25 mcg Documented By: LUCAS Lidocaine (Lidocaine 4 % Patch Adh..Patch) 1 patch TRANSDERMA DAILY [facility]; Protocol Last Admin: 08/21/22 11:36 Dose: 1 patch Documented By: IRAIDA Melatonin (Melatonin 3 Mg Tablet) 6 mg PO BEDTIME PRN PRN Reason: Insomnia Metoprolol Succinate (Metoprolol Succinate Er 100 Mg Tab.Er.24h) 200 mg PO DAILY [facility]; Protocol Last Admin: 08/21/22 08:55 Dose: 200 mg Documented By: IRAIDA Ondansetron HCl (Ondansetron Hcl 4 Mg/2 Ml Vial) 4 mg IVPUSH Q8H PRN PRN Reason: Nausea and Vomiting Oxybutynin Chloride (Oxybutynin Chloride Er 5 Mg Tab.Er.24) 10 mg PO DAILY [facility] Last Admin: 08/21/22 08:55 Dose: 10 mg Documented By: IRAIDA Oxycodone HCl (Oxycodone Hcl Immed Release 5 Mg Tablet) 5 mg PO Q4H PRN PRN Reason: Pain, Severe (Pain Scale 7-10) Last Admin: 08/21/22 11:35 Dose: 5 mg Documented By: IRAIDA Sodium Chloride (0.9 % Sodium Chloride Flush 3 Ml Syringe) 3 ml IVFLUSH QSHIFT [facility] Last Admin: 08/21/22 08:56 Dose: 3 ml Documented By: IRAIDA Warfarin Sodium (Warfarin Sodium 2.5 Mg Tablet) 2.5 mg PO DAILY@1800 [facility] Last Admin: 08/20/22 18:24 Dose: 2.5 mg Documented By: SADIQ Labs 08/22/22 06:51 08/22/22 06:51 Labs: Laboratory Results - last 24 hr 08/20/22 08/20/22 08/21/22 16:02 20:09 07:49 MCV MCH MCHC RDW Plt Count MPV Immature Gran % (Auto) Neut % (Auto) Lymph % (Auto) [place] % (Auto) Eos % (Auto) Baso % (Auto) Lymph # (Auto) [place] # (Auto) Eos # (Auto) Baso # (Auto) Abs Immat Gran (auto) Absolute Neuts (auto) Absolute Nucleated RBC Nucleated RBC % (auto) PT INR Anion Gap Estim Creat Clear Calc Estimated GFR POC Glucose 113 172 H 135 H Random Glucose Calcium 08/21/22 08/21/22 08/21/22 08:49 08:49 08:49 MCV 86.9 MCH 28.2 MCHC 32.4 RDW 16.2 H Plt Count 315 D MPV 9.2 L Immature Gran % (Auto) 0.5 H Neut % (Auto) 64.3 Lymph % (Auto) 17.8 L [place] % (Auto) 12.0 H Eos % (Auto) 4.9 H Baso % (Auto) 0.5 Lymph # (Auto) 1.3 [place] # (Auto) 0.9 Eos # (Auto) 0.4 Baso # (Auto) 0.0 Abs Immat Gran (auto) 0.04 H Absolute Neuts (auto) 4.8 Absolute Nucleated RBC 0.000 Nucleated RBC % (auto) 0.0 PT 40.9 H INR 3.4 H Anion Gap 18 Estim Creat Clear Calc 35.3 Estimated GFR 36 POC Glucose Random Glucose 143 H Calcium 8.5 D 08/21/22 11:16 MCV MCH MCHC RDW Plt Count MPV Immature Gran % (Auto) Neut % (Auto) Lymph % (Auto) [place] % (Auto) Eos % (Auto) Baso % (Auto) Lymph # (Auto) [place] # (Auto) Eos # (Auto) Baso # (Auto) Abs Immat Gran (auto) Absolute Neuts (auto) Absolute Nucleated RBC Nucleated RBC % (auto) PT INR Anion Gap Estim Creat Clear Calc Estimated GFR POC Glucose 189 H Random Glucose Calcium Assessment and Plan (1) Hip pain: Status: Acute Plan 81-year-old female with a past medical history of hypertension, hyperlipidemia, diabetes, CHF, CKD, AFib on Coumadin, right hip osteoarthritis, hypothyroidism, neurogenic bladder presented to the hospital after a fall.? Fall:? Mechanical in nature.? CT head, CT C-spine showed no acute intracranial process or helical fracture.? Right distal fibular fracture: seen by Orthopedics, recommended tall walking boot, weight-bearing as tolerated, outpatient follow-up in orthopedics clinic of.? No surgical intervention recommended currently.? He Pain control Venous duplex negative for any blood clots COVID positive: pt asymptomatic. Saturating well on RA. CXR negative. Chronic bilateral lymphedema:? Patient had right leg erythema,reports chronic. patient was seen by vascular surgery during the last admission-recommended outpatient vascular surgery clinic follow-up for peripheral vascular disease. UTI: Continue ceftriaxone. ? cultures growing E coli. History of AFib:? Rate controlled.? Patient on Coumadin.? INR subtherapeutic at 1.6.? Continue Coumadin History of hypothyroidism:? Continue home levothyroxine History of hypertension: Continue home antihypertensives History of diabetes:? Insulin sliding scale History of CHF:? Stable History of CKD: baseline Creatinine around 1.4 DVT prophylaxis:? Patient on Coumadin Code status:? Full code Disposition: PT/ OT recommended STR-Pending placement Quality Stroke Does the patient have a stroke diagnosis?: No VTE Prior VTE?: No VTE Risk Level:: Medical - moderate - high VTE Device Contraindication: Treatment Not Indicated VTE Drug Contraindication: N/A - Med Ordered
--- NOTE | 2022-08-21 12:52 | MHC.CM.PN ---
1ST CHOICE [facility] DECLINED pt. (COVID+ STATUS) BED SEARCH IN PROGRESS. DP STR VS RESUMPTION OF CARETENDERS.
[2022-08-21 15:58] VITALS: BP 85/52; PULSE 96; RESP 16; TEMP 36.5; O2SAT 99
[2022-08-21 16:12] LABS: Glucose, Whole Blood 142 mg/dL (60-115)
[2022-08-21 19:08] VITALS: BP 107/65; PULSE 89; RESP 16; TEMP 36.2; O2SAT 98
[2022-08-21 21:10] LABS: Glucose, Whole Blood 218 mg/dL (60-115)
[2022-08-21] MEDS: Insulin Glargine,Hum.rec.anlog 100 UNIT/ML 10 ML VIAL 15 UNIT SUBCUT (21:50)
[2022-08-21] MEDS: cefTRIAXone sodium 1 GM in 0.9 % Sodium Chloride 50 ML IV (21:51)
[2022-08-21 23:29] VITALS: BP 123/78; PULSE 100; RESP 18; TEMP 36.8; O2SAT 100
[2022-08-22] MEDS: Levothyroxine Sodium 25 MCG TABLET PO (05:38)
[2022-08-22 07:01] LABS: MANUAL DIFF FLAG NO
[2022-08-22 07:05] LABS: Basophils Absolute Auto 0.1 X10*3/uL (0.0-0.2); Basophils Percent Auto 0.9 % (0-2); Eosinophils Absolute Auto 0.4 X10*3/uL (0.0-0.4); Eosinophils Percent Auto 6.3 % (0-4); Hematocrit 41.8 % (37.0-47.0); Hemoglobin 13.3 g/dl (12.0-16.0); Imm Gran Abs Auto 0.03 X10*3/uL (0.00-0.03); Imm Gran Pct Auto 0.4 % (0.0-0.4); Lymphocytes Absolute Auto 1.6 X10*3/uL (1.2-4.9); Lymphocytes Percent Auto 23.5 % (20-40); Mean Corpuscular HGB Conc 31.8 g/dl (31.0-35.0); Mean Corpuscular Hemoglobin 27.7 pg (27.0-33.0); Mean Corpuscular Volume 87.1 fL (80.0-98.0); Monocytes Percent Auto 15.5 % (2-11); Neutrophils Absolute Auto 3.6 x10*3/uL (2.0-8.3); Neutrophils Percent Auto 53.4 % (45-73); Platelet Count 261 X10*3/uL (160-400); White Blood Count 6.7 X10*3/uL (4.8-10.8)
[2022-08-22 07:11] LABS: INTERNATIONAL NORM RATIO 3.6 (0.9-1.1); Prothrombin Time 44.2 SEC (10.0-13.1)
[2022-08-22 07:21] LABS: Glucose, Whole Blood 90 mg/dL (60-115)
[2022-08-22 07:40] LABS: Anion Gap 18 (12-20); Blood Urea Nitrogen 24 mg/dL (9-16); Calcium 8.2 mg/dL (8.4-10.2); Carbon Dioxide 20 mmol/L (22-29); Chloride 102 mmol/L (96-108); Creatinine Clr Calc Pharmacy 34.8; Estimated Glomerular Filt Rate 36; Glucose Random 86 mg/dL (60-115); Potassium 3.4 mmol/L (3.3-5.1); Sodium 137 mmol/L (135-145)
[2022-08-22 07:53] VITALS: BP 128/63; PULSE 85; RESP 18; TEMP 37.1; O2SAT 97
[2022-08-22] MEDS: 0.9 % Sodium Chloride Flush 3 ML SYRINGE IVFLUSH (09:47)
[2022-08-22] MEDS: amLODIPine Besylate 5 MG TABLET PO (09:47)
[2022-08-22] MEDS: Lidocaine 4 % Patch ADH..PATCH 1 PATCH TRANSDERMA (09:48)
[2022-08-22] MEDS: Metoprolol Succinate ER 100 MG TAB.ER.24H 200 MG PO (09:48)
[2022-08-22] MEDS: Aspirin Enteric Coated 81 MG TABLET.DR PO (09:48)
[2022-08-22] MEDS: Furosemide 40 MG TABLET PO ×2 (09:49→17:32)
[2022-08-22 09:53] VITALS: BP 128/63; PULSE 85; O2SAT 97
[2022-08-22 11:16] LABS: Glucose, Whole Blood 161 mg/dL (60-115)
[2022-08-22] MEDS: Insulin Lispro 100 UNIT/ML 3 ML VIAL SUBCUT ×3 (12:18→20:41)
--- NOTE | 2022-08-22 12:43 | MHC.CM.PN ---
family aware no bed at [facility] looking for appriobiate be for pt need hcp
--- NOTE | 2022-08-22 13:55 | P.PNIM_ITS ---
Subjective Subjective Date of Service: 08/22/22 Interval History: the patient was seen and evaluated this morning Laying in bed, feels comfortable, less pain in her leg Able to ambulate with help Denies any fever, chills or shortness of breath No reported other overnight events. Systemic review: No fever, chills or weakness No chest pain, palpitation No shortness of breath or coughing No abdominal pain, nausea or vomiting No urinary symptoms No reported wounds Leg improved Physical Exam Vital Signs: Vital Signs: Last Vital Signs Temp 98.7 F 08/22/22 07:53 Pulse 85 08/22/22 09:53 Resp 18 08/22/22 07:53 BP 128/63 08/22/22 09:53 Pulse Ox 97 08/22/22 09:53 O2 Del Method 08/22/22 07:53 BMI result Body Mass Index 32.8 Const: Other: Constitutional : Alert, oriented, not in distress Neck : Normal inspection, Supple Cardiovascular : RRR, no JVP, no lower extremity edema Respiratory : fair bilateral air entry, no crackles, wheezes or rhonchi Gastrointestinal: soft, lax, Normal bowel sounds, Non tender Skin : Warm, Dry Extremities: Right leg in the boot Neurological : Alert & oriented x3, No focal deficit , CN 2-12 within normal Objective Data Active Medications Acetaminophen (Acetaminophen 325 Mg Tablet) 650 mg PO Q6H PRN PRN Reason: Pain, Mild (Pain Scale 1-3) Last Admin: 08/17/22 08:56 Dose: 650 mg Documented By: ERNESTINE Amlodipine Besylate (Amlodipine Besylate 5 Mg Tablet) 5 mg PO DAILY [facility]; Pro tocol Last Admin: 08/22/22 09:47 Dose: 5 mg Documented By: ZELALEM Aspirin (Aspirin Enteric Coated 81 Mg Tablet.) 81 mg PO DAILY [facility] Last Admin: 08/22/22 09:48 Dose: 81 mg Documented By: ZELALEM Dextrose (Dextrose 50 % 25 Gm/50 Ml Syringe) 25 gm IVPUSH Q15M PRN; Protocol PRN Reason: per Hypoglycemia Standing Ord. Dextrose (Dextrose 50 % 25 Gm/50 Ml Syringe) 25 gm IVPUSH Q15M PRN; Protocol PRN Reason: per Hypoglycemia Standing Ord. Furosemide (Furosemide 40 Mg Tablet) 40 mg PO BID@0900,1800 [facility]; Protocol Last Admin: 08/22/22 09:49 Dose: 40 mg Documented By: ZELALEM Glucose (Glucose Gel 15 Gm Gel..Gram.) 15 gm PO Q15M PRN; Protocol PRN Reason: per Hypoglycemia Standing Ord. Glucose (Glucose Gel 15 Gm Gel..Gram.) 15 gm PO Q15M PRN; Protocol PRN Reason: per Hypoglycemia Standing Ord. Ceftriaxone Sodium 1 gm/ (Sodium Chloride) 50 mls @ 100 mls/hr IV Q24H [facility] Last Infusion: 08/21/22 23:39 Dose: 0 mls/hr Documented By: TANMAY Insulin Glargine (Insulin Glargine,Hum.Rec.Anlog 100 Unit/Ml 10 Ml Vial) 15 unit SUBCUT BEDTIME [facility] Last Admin: 08/21/22 21:50 Dose: 15 unit Documented By: TANMAY Insulin Human Lispro (Insulin Lispro 100 Unit/Ml 3 Ml Vial) 0 unit SUBCUT QIDACHS [facility]; Protocol Last Admin: 08/22/22 12:18 Dose: 2 unit Documented By: ZELALEM Levothyroxine Sodium (Levothyroxine Sodium 25 Mcg Tablet) 25 mcg PO DAILY@0600 [facility] Last Admin: 08/22/22 05:38 Dose: 25 mcg Documented By: TANMAY Lidocaine (Lidocaine 4 % Patch Adh..Patch) 1 patch TRANSDERMA DAILY [facility]; Protocol Last Admin: 08/22/22 09:48 Dose: 1 patch Documented By: ZELALEM Melatonin (Melatonin 3 Mg Tablet) 6 mg PO BEDTIME PRN PRN Reason: Insomnia Metoprolol Succinate (Metoprolol Succinate Er 100 Mg Tab.Er.24h) 200 mg PO DAILY [facility]; Protocol Last Admin: 08/22/22 09:48 Dose: 200 mg Documented By: ZELALEM Ondansetron HCl (Ondansetron Hcl 4 Mg/2 Ml Vial) 4 mg IVPUSH Q8H PRN PRN Reason: Nausea and Vomiting Oxybutynin Chloride (Oxybutynin Chloride Er 5 Mg Tab.Er.24) 10 mg PO DAILY [facility] Last Admin: 08/22/22 09:48 Dose: 10 mg Documented By: ZELALEM Sodium Chloride (0.9 % Sodium Chloride Flush 3 Ml Syringe) 3 ml IVFLUSH QSHIFT [facility] Last Admin: 08/22/22 09:47 Dose: 3 ml Documented By: ZELALEM Warfarin Sodium (Warfarin Sodium 2.5 Mg Tablet) 2.5 mg PO DAILY@1800 [facility] Last Admin: 08/20/22 18:24 Dose: 2.5 mg Documented By: SADIQ Labs CBC & Chem 7: 08/22/22 06:51 08/22/22 06:51 Labs: Laboratory Results - last 24 hr 08/21/22 08/21/22 08/22/22 16:01 21:03 06:50 MCV MCH MCHC RDW Plt Count MPV Immature Gran % (Auto) Neut % (Auto) Lymph % (Auto) [place] % (Auto) Eos % (Auto) Baso % (Auto) Lymph # (Auto) [place] # (Auto) Eos # (Auto) Baso # (Auto) Abs Immat Gran (auto) Absolute Neuts (auto) Absolute Nucleated RBC Nucleated RBC % (auto) PT 44.2 H INR 3.6 H Anion Gap Estim Creat Clear Calc Estimated GFR POC Glucose 142 H 218 H Random Glucose Calcium 08/22/22 08/22/22 08/22/22 06:51 06:51 07:11 MCV 87.1 MCH 27.7 MCHC 31.8 RDW 16.0 Plt Count 261 MPV 9.0 L Immature Gran % (Auto) 0.4 Neut % (Auto) 53.4 Lymph % (Auto) 23.5 [place] % (Auto) 15.5 H Eos % (Auto) 6.3 H Baso % (Auto) 0.9 Lymph # (Auto) 1.6 [place] # (Auto) 1.0 Eos # (Auto) 0.4 Baso # (Auto) 0.1 Abs Immat Gran (auto) 0.03 Absolute Neuts (auto) 3.6 Absolute Nucleated RBC 0.000 Nucleated RBC % (auto) 0.0 PT INR Anion Gap 18 Estim Creat Clear Calc 34.8 Estimated GFR 36 POC Glucose 90 Random Glucose 86 Calcium 8.2 L 08/22/22 11:12 MCV MCH MCHC RDW Plt Count MPV Immature Gran % (Auto) Neut % (Auto) Lymph % (Auto) [place] % (Auto) Eos % (Auto) Baso % (Auto) Lymph # (Auto) [place] # (Auto) Eos # (Auto) Baso # (Auto) Abs Immat Gran (auto) Absolute Neuts (auto) Absolute Nucleated RBC Nucleated RBC % (auto) PT INR Anion Gap Estim Creat Clear Calc Estimated GFR POC Glucose 161 H Random Glucose Calcium Assessment and Plan (1) Nondisplaced fracture of distal end of fibula: Status: Acute (2) UTI (urinary tract infection): Status: Acute (3) Fall: Status: Acute Plan 81-year-old female with a past medical history of hypertension, hyperlipidemia, diabetes, CHF, CKD, AFib on Coumadin, right hip osteoarthritis, hypothyroidism, neurogenic bladder presented to the hospital after a fall.? Fall Mechanical in nature.? CT head, CT C-spine showed no acute intracranial process or helical fracture.? Right distal fibular fracture Venous duplex negative for any blood clots Orthopedic team input appreciated, recommended tall walking boot, weight-bearing as tolerated To follow-up with Orthopedic as outpatient Pain control COVID positive pt asymptomatic. Saturating well on RA. No active treatment needed Chronic bilateral lymphedema Patient had right leg erythema,reports chronic. patient was seen by vascular surgery during the last admission-recommended outpatient vascular surgery clinic follow-up for peripheral vascular disease. UTI Continue ceftriaxone. cultures growing E coli. History of AFib:? Rate controlled.? Patient on Coumadin.? INR subtherapeutic at 1.6.? Continue Coumadin History of hypothyroidism:? Continue home levothyroxine History of hypertension: Continue home antihypertensives History of diabetes:? Insulin sliding scale History of CHF:? Stable History of CKD: baseline Creatinine around 1.4 DVT prophylaxis:? Patient on Coumadin Code status:? Full code Disposition: PT/ OT recommended STR The patient will need overnight hospital stay Pending placement Quality Stroke Does the patient have a stroke diagnosis?: No VTE Prior VTE?: No VTE Risk Level:: Medical - moderate - high VTE Device Contraindication: Treatment Not Indicated VTE Drug Contraindication: N/A - Med Ordered
[2022-08-22 16:00] VITALS: BP 126/74; PULSE 98; RESP 16; TEMP 36.4; O2SAT 93
[2022-08-22 16:51] LABS: Glucose, Whole Blood 172 mg/dL (60-115)
[2022-08-22 19:32] VITALS: BP 142/77; PULSE 94; RESP 16; TEMP 37.2; O2SAT 97
[2022-08-22 20:10] LABS: Glucose, Whole Blood 161 mg/dL (60-115)
[2022-08-22] MEDS: Acetaminophen 325 MG TABLET 650 MG PO (20:40)
[2022-08-22] MEDS: Insulin Glargine,Hum.rec.anlog 100 UNIT/ML 10 ML VIAL 15 UNIT SUBCUT (20:40)
[2022-08-23 00:07] VITALS: BP 122/62; PULSE 92; RESP 16; TEMP 36.9; O2SAT 96
[2022-08-23] MEDS: Levothyroxine Sodium 25 MCG TABLET PO (06:30)
[2022-08-23 07:21] LABS: INTERNATIONAL NORM RATIO 3.1 (0.9-1.1); Prothrombin Time 37.2 SEC (10.0-13.1)
[2022-08-23 08:00] VITALS: BP 109/57; PULSE 93; RESP 20; TEMP 36.9; O2SAT 99
[2022-08-23 08:34] LABS: Glucose, Whole Blood 103 mg/dL (60-115)
[2022-08-23] MEDS: Lidocaine 4 % Patch ADH..PATCH 1 PATCH TRANSDERMA (08:44)
[2022-08-23] MEDS: Metoprolol Succinate ER 100 MG TAB.ER.24H 200 MG PO (08:44)
[2022-08-23] MEDS: amLODIPine Besylate 5 MG TABLET PO (08:44)
[2022-08-23] MEDS: Aspirin Enteric Coated 81 MG TABLET.DR PO (08:44)
[2022-08-23] MEDS: Furosemide 40 MG TABLET PO ×2 (08:44→17:13)
[2022-08-23 12:06] LABS: Glucose, Whole Blood 194 mg/dL (60-115)
[2022-08-23] MEDS: polyethylene glycoL 3350 17 GM POWD.PACK PO (12:31)
[2022-08-23] MEDS: Insulin Lispro 100 UNIT/ML 3 ML VIAL SUBCUT ×3 (12:31→20:55)
--- NOTE | 2022-08-23 12:36 | P.PNIM_ITS ---
Subjective Subjective Date of Service: 08/23/22 Interval History: the patient was seen and evaluated this morning Laying in bed, feels comfortable, less pain in her leg Able to ambulate with help No reported other overnight events. Systemic review: No fever, chills or weakness No chest pain, palpitation No shortness of breath or coughing No abdominal pain, nausea or vomiting No urinary symptoms No reported wounds Leg improved Physical Exam Vital Signs: Vital Signs: Last Vital Signs Temp 98.5 F 08/23/22 08:00 Pulse 93 08/23/22 08:00 Resp 20 08/23/22 08:00 BP 109/57 L 08/23/22 08:00 Pulse Ox 99 08/23/22 08:00 O2 Del Method 08/23/22 08:00 BMI result Body Mass Index 32.8 Const: Other: Constitutional : Alert, oriented, not in distress Neck : Normal inspection, Supple Cardiovascular : RRR, no JVP, no lower extremity edema Respiratory : fair bilateral air entry, no crackles, wheezes or rhonchi Gastrointestinal: soft, lax, Normal bowel sounds, Non tender Skin : Warm, Dry Extremities: Right leg in the boot Neurological : Alert & oriented x3, No focal deficit , CN 2-12 within normal Objective Data Active Medications Acetaminophen (Acetaminophen 325 Mg Tablet) 650 mg PO Q6H PRN PRN Reason: Pain, Mild (Pain Scale 1-3) Last Admin: 08/22/22 20:40 Dose: 650 mg Documented By: KASH Amlodipine Besylate (Amlodipine Besylate 5 Mg Tablet) 5 mg PO DAILY [facility]; Protocol Last Admin: 08/23/22 08:44 Dose: 5 mg Documented By: ZELALEM Aspirin (Aspirin Enteric Coated 81 Mg Tablet.Dr) 81 mg PO DAILY [facility] Last Admin: 08/23/22 08:44 Dose: 81 mg Documented By: ZELALEM Dextrose (Dextrose 50 % 25 Gm/50 Ml Syringe) 25 gm IVPUSH Q15M PRN; Protocol PRN Reason: per Hypoglycemia Standing Ord. Dextrose (Dextrose 50 % 25 Gm/50 Ml Syringe) 25 gm IVPUSH Q15M PRN; Protocol PRN Reason: per Hypoglycemia Standing Ord. Furosemide (Furosemide 40 Mg Tablet) 40 mg PO BID@0900,1800 [facility]; Protocol Last Admin: 08/23/22 08:44 Dose: 40 mg Documented By: ZELALEM Glucose (Glucose Gel 15 Gm Gel..Gram.) 15 gm PO Q15M PRN; Protocol PRN Reason: per Hypoglycemia Standing Ord. Glucose (Glucose Gel 15 Gm Gel..Gram.) 15 gm PO Q15M PRN; Protocol PRN Reason: per Hypoglycemia Standing Ord. Ceftriaxone Sodium 1 gm/ (Sodium Chloride) 50 mls @ 100 mls/hr IV Q24H [facility] Last Admin: 08/22/22 20:44 Dose: Not Given Documented By: KASH Non-Admin Reason: no access per Insulin Glargine (Insulin Glargine,Hum.Rec.Anlog 100 Unit/Ml 10 Ml Vial) 15 unit SUBCUT BEDTIME [facility] Last Admin: 08/22/22 20:40 Dose: 15 unit Documented By: KASH Insulin Human Lispro (Insulin Lispro 100 Unit/Ml 3 Ml Vial) 0 unit SUBCUT QIDA CHS [facility]; Protocol Last Admin: 08/23/22 12:31 Dose: 2 unit Documented By: ZELALEM Levothyroxine Sodium (Levothyroxine Sodium 25 Mcg Tablet) 25 mcg PO DAILY@0600 [facility] Last Admin: 08/23/22 06:30 Dose: 25 mcg Documented By: KASH Lidocaine (Lidocaine 4 % Patch Adh..Patch) 1 patch TRANSDERMA DAILY [facility]; Protocol Last Admin: 08/23/22 08:44 Dose: 1 patch Documented By: ZELALEM Melatonin (Melatonin 3 Mg Tablet) 6 mg PO BEDTIME PRN PRN Reason: Insomnia Metoprolol Succinate (Metoprolol Succinate Er 100 Mg Tab.Er.24h) 200 mg PO DAILY [facility]; Protocol Last Admin: 08/23/22 08:44 Dose: 200 mg Documented By: ZELALEM Ondansetron HCl (Ondansetron Hcl 4 Mg/2 Ml Vial) 4 mg IVPUSH Q8H PRN PRN Reason: Nausea and Vomiting Oxybutynin Chloride (Oxybutynin Chloride Er 5 Mg Tab.Er.24) 10 mg PO DAILY [facility] Last Admin: 08/23/22 08:44 Dose: 10 mg Documented By: ZELALEM Polyethylene Glycol (Polyethylene Glycol 3350 17 Gm Powd.Pack) 17 gm PO DAILY [facility] Last Admin: 08/23/22 12:31 Dose: 17 gm Documented By: ZELALEM Sodium Chloride (0.9 % Sodium Chloride Flush 3 Ml Syringe) 3 ml IVFLUSH QSHIFT [facility] Last Admin: 08/23/22 08:34 Dose: Not Given Documented By: ZELALEM Non-Admin Reason: No Access Warfarin Sodium (Warfarin Sodium 2.5 Mg Tablet) 2.5 mg PO DAILY@1800 [facility] Last Admin: 08/20/22 18:24 Dose: 2.5 mg Documented By: SADIQ Labs CBC & Chem 7: 08/22/22 06:51 08/22/22 06:51 Labs: Laboratory Results - last 24 hr 08/22/22 08/22/22 08/23/22 16:47 20:07 06:29 PT 37.2 H INR 3.1 H POC Glucose 172 H 161 H 08/23/22 08/23/22 08:30 12:02 PT INR POC Glucose 103 194 H Assessment and Plan (1) Nondisplaced fracture of distal end of fibula: Status: Acute (2) UTI (urinary tract infection): Status: Acute (3) Fall: Status: Acute Plan 81-year-old female with a past medical history of hypertension, hyperlipidemia, diabetes, CHF, CKD, AFib on Coumadin, right hip osteoarthritis, hypothyroidism, neurogenic bladder presented to the hospital after a fall.? Fall Mechanical in nature.? CT head, CT C-spine showed no acute intracranial process or helical fracture.? Right distal fibular fracture Venous duplex negative for any blood clots Orthopedic team input appreciated, recommended tall walking boot, weight-bearing as tolerated To follow-up with Orthopedic as outpatient Pain control COVID positive pt asymptomatic. Saturating well on RA. No active treatment needed Chronic bilateral lymphedema Patient had right leg erythema,reports chronic. patient was seen by vascular surgery during the last admission-recommended outpatient vascular surgery clinic follow-up for peripheral vascular disease. UTI Finished 1 week of ceftriaxone. cultures growing E coli. History of AFib Rate controlled.? Patient on Coumadin.? INR 3.1.? hold Coumadin History of hypothyroidism:? Continue home levothyroxine History of hypertension: Continue home antihypertensives History of diabetes:? Insulin sliding scale History of CHF:? Stable History of CKD: baseline Creatinine around 1.4 DVT prophylaxis:? Patient on Coumadin Code status:? Full code Disposition: PT/ OT recommended STR The patient will need overnight hospital stay Pending placement Quality Stroke Does the patient have a stroke diagnosis?: No VTE Prior VTE?: No VTE Risk Level:: Medical - moderate - high VTE Device Contraindication: Treatment Not Indicated VTE Drug Contraindication: N/A - Med Ordered
[2022-08-23 13:06] VITALS: BP 103/57; PULSE 93; RESP 20; TEMP 37; O2SAT 99
[2022-08-23] MEDS: Acetaminophen 325 MG TABLET 650 MG PO (15:56)
[2022-08-23 16:00] VITALS: BP 123/75; PULSE 96; RESP 20; TEMP 36.8
[2022-08-23 16:54] LABS: Glucose, Whole Blood 171 mg/dL (60-115)
[2022-08-23 20:00] VITALS: BP 131/71; PULSE 91; RESP 18; TEMP 36.8; O2SAT 99
[2022-08-23 20:29] LABS: Glucose, Whole Blood 172 mg/dL (60-115)
[2022-08-23] MEDS: Insulin Glargine,Hum.rec.anlog 100 UNIT/ML 10 ML VIAL 15 UNIT SUBCUT (20:55)
[2022-08-23 23:19] VITALS: BP 134/70; PULSE 95; RESP 16; TEMP 36.6; O2SAT 96
[2022-08-24 03:19] VITALS: BP 124/72; PULSE 85; RESP 16; TEMP 36.7; O2SAT 97
[2022-08-24] MEDS: Levothyroxine Sodium 25 MCG TABLET PO (06:12)
[2022-08-24 07:30] LABS: INTERNATIONAL NORM RATIO 2.3 (0.9-1.1); Prothrombin Time 26.8 SEC (10.0-13.1)
[2022-08-24 07:38] VITALS: BP 142/72; PULSE 85; RESP 20; TEMP 36.9; O2SAT 96
[2022-08-24 07:48] LABS: Glucose, Whole Blood 131 mg/dL (60-115)
[2022-08-24 08:00] VITALS: BP 142/72; PULSE 91; RESP 20; TEMP 36.6; O2SAT 97
[2022-08-24] MEDS: polyethylene glycoL 3350 17 GM POWD.PACK PO (09:06)
[2022-08-24] MEDS: Lidocaine 4 % Patch ADH..PATCH 1 PATCH TRANSDERMA (09:06)
[2022-08-24] MEDS: Metoprolol Succinate ER 100 MG TAB.ER.24H 200 MG PO (09:07)
[2022-08-24] MEDS: Aspirin Enteric Coated 81 MG TABLET.DR PO (09:07)
[2022-08-24] MEDS: Furosemide 40 MG TABLET PO ×2 (09:07→17:15)
[2022-08-24] MEDS: amLODIPine Besylate 5 MG TABLET PO (09:07)
[2022-08-24 11:20] LABS: Glucose, Whole Blood 226 mg/dL (60-115)
[2022-08-24] MEDS: Insulin Lispro 100 UNIT/ML 3 ML VIAL SUBCUT ×2 (12:07→17:15)
[2022-08-24] MEDS: Docusate Sodium 100 MG CAPSULE PO ×2 (12:08→21:02)
--- NOTE | 2022-08-24 13:57 | P.PNIM_ITS ---
Subjective Subjective Date of Service: 08/24/22 Interval History: the patient was seen and evaluated this morning Laying in bed, feels comfortable Able to ambulate with help No reported other overnight events. Systemic review: No fever, chills or weakness No chest pain, palpitation No shortness of breath or coughing No abdominal pain, nausea or vomiting No urinary symptoms No reported wounds Leg improved Physical Exam Vital Signs: Vital Signs: Last Vital Signs Temp 97.9 F 08/24/22 08:00 Pulse 91 08/24/22 08:00 Resp 20 08/24/22 08:00 BP 142/72 H 08/24/22 08:00 Pulse Ox 97 08/24/22 08:00 O2 Del Method 08/24/22 08:00 BMI result Body Mass Index 32.8 Const: Other: Constitutional : Alert, oriented, not in distress Neck : Normal inspection, Supple Cardiovascular : RRR, no JVP, no lower extremity edema Respiratory : fair bilateral air entry, no crackles, wheezes or rhonchi Gastrointestinal: soft, lax, Normal bowel sounds, Non tender Skin : Warm, Dry Extremities: Right leg in the boot Neurological : Alert & oriented x3, No focal deficit , CN 2-12 within normal Objective Data Active Medications Acetaminophen (Acetaminophen 325 Mg Tablet) 650 mg PO Q6H PRN PRN Reason: Pain, Mild (Pain Scale 1-3) Last Admin: 08/23/22 15:56 Dose: 650 mg Documented By: ZELALEM Amlodipine Besylate (Amlodipine Besylate 5 Mg Tablet) 5 mg PO DAILY [facility]; Protocol Last Admin: 08/24/22 09:07 Dose: 5 mg Documented By: SHIKHA Aspirin (Aspirin Enteric Coated 81 Mg Tablet.Dr) 81 mg PO DAILY [facility] Last Admin: 08/24/22 09:07 Dose: 81 mg Documented By: SHIKHA Dextrose (Dextrose 50 % 25 Gm/50 Ml Syringe) 25 gm IVPUSH Q15M PRN; Protocol PRN Reason: per Hypoglycemia Standing Ord. Dextrose (Dextrose 50 % 25 Gm/50 Ml Syringe) 25 gm IVPUSH Q15M PRN; Protocol PRN Reason: per Hypoglycemia Standing Ord. Docusate Sodium (Docusate Sodium 100 Mg Capsule) 100 mg PO BID [facility] Last Admin: 08/24/22 12:08 Dose: 100 mg Documented By: SHIKHA Furosemide (Furosemide 40 Mg Tablet) 40 mg PO BID@0900,1800 [facility]; Protocol Last Admin: 08/24/22 09:07 Dose: 40 mg Documented By: SHIKHA Glucose (Glucose Gel 15 Gm Gel..Gram.) 15 gm PO Q15M PRN; Protocol PRN Reason: per Hypoglycemia Standing Ord. Glucose (Glucose Gel 15 Gm Gel..Gram.) 15 gm PO Q15M PRN; Protocol PRN Reason: per Hypoglycemia Standing Ord. Insulin Glargine (Insulin Glargine,Hum.Rec.Anlog 100 Unit/Ml 10 Ml Vial) 15 unit SUBCUT BEDTIME [facility] Last Admin: 08/23/22 20:55 Dose: 15 unit Documented By: SHIMA Insulin Human Lispro (Insulin Lispro 100 Unit/Ml 3 Ml Vial) 0 unit SUBCUT QIDACHS [facility]; Protocol Last Admin: 08/24/22 12:07 Dose: 4 unit Documented By: SHIKHA Levothyroxine Sodium (Levothyroxine Sodium 25 Mcg Tablet) 25 mcg PO DAILY@0600 [facility] Last Admin: 08/24/22 06:12 Dose: 25 mcg Documented By: SHIMA Lidocaine (Lidocaine 4 % Patch Adh..Patch) 1 patch TRANSDERMA DAILY [facility]; Protocol Last Admin: 08/24/22 09:06 Dose: 1 patch Documented By: SHIKHA Melatonin (Melatonin 3 Mg Tablet) 6 mg PO BEDTIME PRN PRN Reason: Insomnia Metoprolol Succinate (Metoprolol Succinate Er 100 Mg Tab.Er.24h) 200 mg PO DAILY [facility]; Protocol Last Admin: 08/24/22 09:07 Dose: 200 mg Documented By: SHIKHA Ondansetron HCl (Ondansetron Hcl 4 Mg/2 Ml Vial) 4 mg IVPUSH Q8H PRN PRN Reason: Nausea and Vomiting Oxybutynin Chloride (Oxybutynin Chloride Er 5 Mg Tab.Er.24) 10 mg PO DAILY [facility] Last Admin: 08/24/22 09:07 Dose: 10 mg Documented By: SHIKHA Polyethylene Glycol (Polyethylene Glycol 3350 17 Gm Powd.Pack) 17 gm PO DAILY [facility] Last Admin: 08/24/22 09:06 Dose: 17 gm Documented By: SHIKHA Sodium Chloride (0.9 % Sodium Chloride Flush 3 Ml Syringe) 3 ml IVFLUSH QSHIFT [facility] Last Admin: 08/24/22 09:07 Dose: Not Given Documented By: SHIKHA Non-Admin Reason: No Access Warfarin Sodium (Warfarin Sodium 2.5 Mg Tablet) 2.5 mg PO DAILY@1800 [facility] Last Admin: 08/20/22 18:24 Dose: 2.5 mg Documented By: SADIQ Labs CBC & Chem 7: 08/22/22 06:51 08/22/22 06:51 Labs: Laboratory Results - last 24 hr 08/23/22 08/23/22 08/24/22 16:45 20:25 06:24 PT 26.8 H INR 2.3 H POC Glucose 171 H 172 H 08/24/22 08/24/22 07:42 11:13 PT INR POC Glucose 131 H 226 H Assessment and Plan (1) Nondisplaced fracture of distal end of fibula: Status: Acute (2) Fall: Status: Acute Plan 81-year-old female with a past medical history of hypertension, hyperlipidemia, diabetes, CHF, CKD, AFib on Coumadin, right hip osteoarthritis, hypothyroidism, neurogenic bladder presented to the hospital after a fall.? Fall Mechanical in nature.? CT head, CT C-spine showed no acute intracranial process or helical fracture.? Right distal fibular fracture Venous duplex negative for any blood clots Orthopedic team input appreciated, recommended tall walking boot, weight-bearing as tolerated To follow-up with Orthopedic as outpatient Pain control COVID positive pt asymptomatic. Saturating well on RA. No active treatment needed Chronic bilateral lymphedema Patient had right leg erythema,reports chronic. patient was seen by vascular surgery during the last admission-recommended outpatient vascular surgery clinic follow-up for peripheral vascular disease. UTI Finished 1 week of ceftriaxone. cultures growing E coli. History of AFib Rate controlled.? Patient on Coumadin.? INR2.3, restart Coumadin History of hypothyroidism:? Continue home levothyroxine History of hypertension: Continue home antihypertensives History of diabetes:? Insulin sliding scale History of CHF:? Stable History of CKD: baseline Creatinine around 1.4 DVT prophylaxis:? Patient on Coumadin Code status:? Full code Disposition: PT/ OT recommended STR The patient will need overnight hospital stay Pending placement Quality Stroke Does the patient have a stroke diagnosis?: No VTE Prior VTE?: No VTE Risk Level:: Medical - moderate - high VTE Device Contraindication: Treatment Not Indicated VTE Drug Contraindication: N/A - Med Ordered
[2022-08-24 16:00] VITALS: BP 118/70; PULSE 108; RESP 19; TEMP 37.2
[2022-08-24 16:58] LABS: Glucose, Whole Blood 166 mg/dL (60-115)
[2022-08-24] MEDS: 0.9 % Sodium Chloride Flush 3 ML SYRINGE IVFLUSH (17:15)
[2022-08-24] MEDS: Warfarin Sodium 2.5 MG TABLET PO (17:15)
[2022-08-24 20:00] VITALS: BP 122/74; PULSE 98; RESP 19; TEMP 37.1
[2022-08-24 20:15] LABS: Glucose, Whole Blood 147 mg/dL (60-115)
[2022-08-24] MEDS: Insulin Glargine,Hum.rec.anlog 100 UNIT/ML 10 ML VIAL 15 UNIT SUBCUT (21:02)
[2022-08-25] VITALS: BP 120/69; PULSE 86; RESP 15; TEMP 36.6; O2SAT 96
[2022-08-25 03:35] VITALS: BP 146/83; PULSE 84; RESP 15; TEMP 36.7; O2SAT 98
[2022-08-25] MEDS: Levothyroxine Sodium 25 MCG TABLET PO (05:20)
[2022-08-25 07:23] LABS: INTERNATIONAL NORM RATIO 2.1 (0.9-1.1); Prothrombin Time 25.4 SEC (10.0-13.1)
[2022-08-25 07:47] VITALS: BP 122/75; PULSE 95; RESP 20; TEMP 36.9; O2SAT 96
[2022-08-25 07:56] LABS: Glucose, Whole Blood 145 mg/dL (60-115)
[2022-08-25] MEDS: amLODIPine Besylate 5 MG TABLET PO (09:43)
[2022-08-25] MEDS: polyethylene glycoL 3350 17 GM POWD.PACK PO (09:43)
[2022-08-25] MEDS: Metoprolol Succinate ER 100 MG TAB.ER.24H 200 MG PO (09:43)
[2022-08-25] MEDS: Docusate Sodium 100 MG CAPSULE PO ×2 (09:44→21:02)
[2022-08-25] MEDS: Aspirin Enteric Coated 81 MG TABLET.DR PO (09:44)
[2022-08-25] MEDS: Lidocaine 4 % Patch ADH..PATCH 1 PATCH TRANSDERMA (09:44)
[2022-08-25] MEDS: Furosemide 40 MG TABLET PO ×2 (09:49→17:05)
[2022-08-25 11:13] LABS: Glucose, Whole Blood 200 mg/dL (60-115)
[2022-08-25] MEDS: Insulin Lispro 100 UNIT/ML 3 ML VIAL SUBCUT ×3 (11:56→21:17)
--- NOTE | 2022-08-25 12:45 | HO.PM.IMPN ---
Subjective Subjective Date of Service: 08/25/22 Interval History: the patient was seen and evaluated this morning Laying in bed, feels comfortable No reported other overnight events. Systemic review: No fever, chills or weakness No chest pain, palpitation No shortness of breath or coughing No abdominal pain, nausea or vomiting No urinary symptoms No reported wounds Leg improved Physical Exam Vital Signs: Vital Signs: Last Vital Signs Temp 98.5 F 08/25/22 07:47 Pulse 95 08/25/22 07:47 Resp 20 08/25/22 07:47 BP 122/75 08/25/22 07:47 Pulse Ox 96 08/25/22 07:47 O2 Del Method 08/25/22 07:47 FiO2 96 08/24/22 20:00 BMI result Body Mass Index 32.8 Const: Other: Constitutional : Alert, oriented, not in distress Neck : Normal inspection, Supple Cardiovascular : RRR, no JVP, no lower extremity edema Respiratory : fair bilateral air entry, no crackles, wheezes or rhonchi Gastrointestinal: soft, lax, Normal bowel sounds, Non tender Skin : Warm, Dry Extremities: Right leg in the boot Neurological : Alert & oriented x3, No focal deficit , CN 2-12 within normal Objective Data Active Medications Acetaminophen (Acetaminophen 325 Mg Tablet) 650 mg PO Q6H PRN PRN Reason: Pain, Mild (Pain Scale 1-3) Last Admin: 08/23/22 15:56 Dose: 650 mg Documented By: ZELALEM Amlodipine Besylate (Amlodipine Besylate 5 Mg Tablet) 5 mg PO DAILY [facility]; Protocol Last Admin: 08/25/22 09:43 Dose: 5 mg Documented By: MICHELLE Aspirin (Aspirin Enteric Coated 81 Mg Tablet.Dr) 81 mg PO DAILY [facility] Last Admin: 08/25/22 09:44 Dose: 81 mg Documented By: MICHELLE Dextrose (Dextrose 50 % 25 Gm/50 Ml Syringe) 25 gm IVPUSH Q15M PRN; Protocol PRN Reason: per Hypoglycemia Standing Ord. Dextrose (Dextrose 50 % 25 Gm/50 Ml Syringe) 25 gm IVPUSH Q15M PRN; Protocol PRN Reason: per Hypoglycemia Standing Ord. Docusate Sodium (Docusate Sodium 100 Mg Capsule) 100 mg PO BID [facility] Last Admin: 08/25/22 09:44 Dose: 100 mg Documented By: MICHELLE Furosemide (Furosemide 40 Mg Tablet) 40 mg PO BID@0900,1800 [facility]; Protocol Last Admin: 08/25/22 09:49 Dose: 40 mg Documented By: MICHELLE Glucose (Glucose Gel 15 Gm Gel..Gram.) 15 gm PO Q15M PRN; Protocol PRN Reason: per Hypoglycemia Standing Ord. Glucose (Glucose Gel 15 Gm Gel..Gram.) 15 gm PO Q15M PRN; Protocol PRN Reason: per Hypoglycemia Standing Ord. Insulin Glargine (Insulin Glargine,Hum.Rec.Anlog 100 Unit/Ml 10 Ml Vial) 15 unit SUBCUT BEDTIME [facility] Last Admin: 08/24/22 21:02 Dose: 15 unit Documented By: MICHAELA Insulin Human Lispro (Insulin Lispro 100 Unit/Ml 3 Ml Vial) 0 unit SUBCUT QIDACHS [facility]; Protocol Last Admin: 08/25/22 11:56 Dose: 2 unit Documented By: MICHELLE Levothyroxine Sodium (Levothyroxine Sodium 25 Mcg Tablet) 25 mcg PO DAILY@0600 [facility] Last Admin: 08/25/22 05:20 Dose: 25 mcg Documented By: MICHAELA Lidocaine (Lidocaine 4 % Patch Adh..Patch) 1 patch TRANSDERMA DAILY [facility]; Protocol Last Admin: 08/25/22 09:44 Dose: 1 patch Documented By: MICHELLE Melatonin (Melatonin 3 Mg Tablet) 6 mg PO BEDTIME PRN PRN Reason: Insomnia Metoprolol Succinate (Metoprolol Succinate Er 100 Mg Tab.Er.24h) 200 mg PO DAILY [facility]; Protocol Last Admin: 08/25/22 09:43 Dose: 200 mg Documented By: MICHELLE Ondansetron HCl (Ondansetron Hcl 4 Mg/2 Ml Vial) 4 mg IVPUSH Q8H PRN PRN Reason: Nausea and Vomiting Oxybutynin Chloride (Oxybutynin Chloride Er 5 Mg Tab.Er.24) 10 mg PO DAILY [facility] Last Admin: 08/25/22 09:44 Dose: 10 mg Documented By: MICHELLE Polyethylene Glycol (Polyethylene Glycol 3350 17 Gm Powd.Pack) 17 gm PO DAILY [facility] Last Admin: 08/25/22 09:43 Dose: 17 gm Documented By: MICHELLE Sodium Chloride (0.9 % Sodium Chloride Flush 3 Ml Syringe) 3 ml IVFLUSH QSHIFT [facility] Last Admin: 08/25/22 09:44 Dose: Not Given Documented By: MICHELLE Non-Admin Reason: No Access Warfarin Sodium (Warfarin Sodium 2.5 Mg Tablet) 2.5 mg PO DAILY@1800 [facility] Last Admin: 08/24/22 17:15 Dose: 2.5 mg Documented By: SHIKHA Labs CBC & Chem 7: 08/22/22 06:51 08/22/22 06:51 Labs: Laboratory Results - last 24 hr 08/24/22 08/24/22 08/25/22 16:54 20:08 06:23 PT 25.4 H INR 2.1 H POC Glucose 166 H 147 H 08/25/22 08/25/22 07:48 11:08 PT INR POC Glucose 145 H 200 H Assessment and Plan (1) Nondisplaced fracture of distal end of fibula: Status: Acute (2) UTI (urinary tract infection): Status: Acute (3) Fall: Status: Acute Plan 81-year-old female with a past medical history of hypertension, hyperlipidemia, diabetes, CHF, CKD, AFib on Coumadin, right hip osteoarthritis, hypothyroidism, neurogenic bladder presented to the hospital after a fall.? Fall Mechanical in nature.? CT head, CT C-spine showed no acute intracranial process or helical fracture.? Right distal fibular fracture Venous duplex negative for any blood clots Orthopedic team input appreciated, recommended tall walking boot, weight-bearing as tolerated To follow-up with Orthopedic as outpatient Pain control COVID positive pt asymptomatic. Saturating well on RA. No active treatment needed Chronic bilateral lymphedema Patient had right leg erythema,reports chronic. patient was seen by vascular surgery during the last admission-recommended outpatient vascular surgery clinic follow-up for peripheral vascular disease. UTI Finished 1 week of ceftriaxone. cultures growing E coli. History of AFib Rate controlled.? Patient on Coumadin.? INR2.3, restart Coumadin History of hypothyroidism:? Continue home levothyroxine History of hypertension: Continue home antihypertensives History of diabetes:? Insulin sliding scale History of CHF:? Stable History of CKD: baseline Creatinine around 1.4 DVT prophylaxis:? Patient on Coumadin Code status:? Full code Disposition: PT/ OT recommended STR The patient will need overnight hospital stay Pending authorization for placement. Quality Stroke Does the patient have a stroke diagnosis?: No VTE Prior VTE?: No VTE Risk Level:: Medical - moderate - high VTE Device Contraindication: Treatment Not Indicated VTE Drug Contraindication: N/A - Med Ordered
[2022-08-25 15:19] VITALS: BP 140/50; PULSE 98; RESP 18; TEMP 36.7; O2SAT 100
[2022-08-25 16:05] LABS: Glucose, Whole Blood 151 mg/dL (60-115)
[2022-08-25] MEDS: Warfarin Sodium 2.5 MG TABLET PO (17:05)
[2022-08-25 19:43] LABS: Glucose, Whole Blood 198 mg/dL (60-115)
[2022-08-25] MEDS: Insulin Glargine,Hum.rec.anlog 100 UNIT/ML 10 ML VIAL 15 UNIT SUBCUT (21:17)
[2022-08-25 23:18] VITALS: BP 140/69; PULSE 99; RESP 18; TEMP 37.1; O2SAT 100
[2022-08-26] MEDS: Levothyroxine Sodium 25 MCG TABLET PO (05:21)
[2022-08-26 06:26] LABS: INTERNATIONAL NORM RATIO 2.5 (0.9-1.1); Prothrombin Time 29.5 SEC (10.0-13.1)
[2022-08-26 07:36] VITALS: BP 140/73; PULSE 97; RESP 17; TEMP 36.4; O2SAT 97
[2022-08-26 07:54] LABS: Glucose, Whole Blood 135 mg/dL (60-115)
[2022-08-26] MEDS: amLODIPine Besylate 5 MG TABLET PO (08:55)
[2022-08-26] MEDS: Metoprolol Succinate ER 100 MG TAB.ER.24H 200 MG PO (08:56)
[2022-08-26] MEDS: Furosemide 40 MG TABLET PO (08:56)
[2022-08-26] MEDS: Docusate Sodium 100 MG CAPSULE PO (08:56)
[2022-08-26] MEDS: Aspirin Enteric Coated 81 MG TABLET.DR PO (08:56)
[2022-08-26] MEDS: polyethylene glycoL 3350 17 GM POWD.PACK PO (08:57)
[2022-08-26] MEDS: Lidocaine 4 % Patch ADH..PATCH 1 PATCH TRANSDERMA (09:01)
--- NOTE | 2022-08-26 11:35 | MHC.CM.PN ---
Per [facility] request, CM has referred Patient to several in-network SNFs. Patient has accepted a bed offer from in network SNF- [facility] [place] and CM has asked [facility] [place] to go for auth. CM will follow.
[2022-08-26 11:47] LABS: Glucose, Whole Blood 170 mg/dL (60-115)
[2022-08-26] MEDS: Insulin Lispro 100 UNIT/ML 3 ML VIAL SUBCUT (12:24)
[2022-08-26] MEDS: Acetaminophen 325 MG TABLET 650 MG PO (12:27)
--- NOTE | 2022-08-26 12:48 | HO.PM.IMPN ---
Subjective Subjective Date of Service: 08/26/22 Interval History: the patient was seen and evaluated this morning Laying in bed, feels comfortable No reported other overnight events. Systemic review: No fever, chills or weakness No chest pain, palpitation No shortness of breath or coughing No abdominal pain, nausea or vomiting No urinary symptoms No reported wounds Leg improved Physical Exam Vital Signs: Vital Signs: Last Vital Signs Temp 97.5 F 08/26/22 07:36 Pulse 97 08/26/22 07:36 Resp 17 08/26/22 07:36 BP 140/73 H 08/26/22 07:36 Pulse Ox 97 08/26/22 07:36 O2 Del Method 08/26/22 07:36 FiO2 96 08/24/22 20:00 BMI result Body Mass Index 32.8 Const: Other: Constitutional : Alert, oriented, not in distress Neck : Normal inspection, Supple Cardiovascular : RRR, no JVP, no lower extremity edema Respiratory : fair bilateral air entry, no crackles, wheezes or rhonchi Gastrointestinal: soft, lax, Normal bowel sounds, Non tender Skin : Warm, Dry Extremities: Right leg in the boot Neurological : Alert & oriented x3, No focal deficit , CN 2-12 within normal Objective Data Active Medications Acetaminophen (Acetaminophen 325 Mg Tablet) 650 mg PO Q6H PRN PRN Reason: Pain, Mild (Pain Scale 1-3) Last Admin: 08/26/22 12:27 Dose: 650 mg Documented By: MICHELLE Amlodipine Besylate (Amlodipine Besylate 5 Mg Tablet) 5 mg PO DAILY [facility]; Protocol Last Admin: 08/26/22 08:55 Dose: 5 mg Documented By: MICHELLE Aspirin (Aspirin Enteric Coated 81 Mg Tablet.Dr) 81 mg PO DAILY [facility] Last Admin: 08/26/22 08:56 Dose: 81 mg Documented By: MICHELLE Dextrose (Dextrose 50 % 25 Gm/50 Ml Syringe) 25 gm IVPUSH Q15M PRN; Protocol PRN Reason: per Hypoglycemia Standing Ord. Dextrose (Dextrose 50 % 25 Gm/50 Ml Syringe) 25 gm IVPUSH Q15M PRN; Protocol PRN Reason: per Hypoglycemia Standing Ord. Docusate Sodium (Docusate Sodium 100 Mg Capsule) 100 mg PO BID [facility] Last Admin: 08/26/22 08:56 Dose: 100 mg Documented By: MICHELLE Furosemide (Furosemide 40 Mg Tablet) 40 mg PO BID@0900,1800 [facility]; Protocol Last Admin: 08/26/22 08:56 Dose: 40 mg Documented By: MICHELLE Glucose (Glucose Gel 15 Gm Gel..Gram.) 15 gm PO Q15M PRN; Protocol PRN Reason: per Hypoglycemia Standing Ord. Glucose (Glucose Gel 15 Gm Gel..Gram.) 15 gm PO Q15M PRN; Protocol PRN Reason: per Hypoglycemia Standing Ord. Insulin Glargine (Insulin Glargine,Hum.Rec.Anlog 100 Unit/Ml 10 Ml Vial) 15 unit SUBCUT BEDTIME [facility] Last Admin: 08/25/22 21:17 Dose: 15 unit Documented By: MICHAELA Insulin Human Lispro (Insulin Lispro 100 Unit/Ml 3 Ml Vial) 0 unit SUBCUT QIDACHS [facility]; Protocol Last Admin: 08/26/22 12:24 Dose: 2 unit Documented By: MICHELLE Levothyroxine Sodium (Levothyroxine Sodium 25 Mcg Tablet) 25 mcg PO DAILY@0600 [facility] Last Admin: 08/26/22 05:21 Dose: 25 mcg Documented By: MICHAELA Lidocaine (Lidocaine 4 % Patch Adh..Patch) 1 patch TRANSDERMA DAILY [facility]; Protocol Last Admin: 08/26/22 09:01 Dose: 1 patch Documented By: MICHELLE Melatonin (Melatonin 3 Mg Tablet) 6 mg PO BEDTIME PRN PRN Reason: Insomnia Metoprolol Succinate (Metoprolol Succinate Er 100 Mg Tab.Er.24h) 200 mg PO DAILY [facility]; Protocol Last Admin: 08/26/22 08:56 Dose: 200 mg Documented By: MICHELLE Nystatin (Nystatin Powder 15 Gm Bottle) 1 appl TOPICAL TID [facility]; Protocol Ondansetron HCl (Ondansetron Hcl 4 Mg/2 Ml Vial) 4 mg IVPUSH Q8H PRN PRN Reason: Nausea and Vomiting Oxybutynin Chloride (Oxybutynin Chloride Er 5 Mg Tab.Er.24) 10 mg PO DAILY [facility] Last Admin: 08/26/22 08:56 Dose: 10 mg Documented By: MICHELLE Polyethylene Glycol (Polyethylene Glycol 3350 17 Gm Powd.Pack) 17 gm PO DAILY [facility] Last Admin: 08/26/22 08:57 Dose: 17 gm Documented By: MICHELLE Sodium Chloride (0.9 % Sodium Chloride Flush 3 Ml Syringe) 3 ml IVFLUSH QSHIFT [facility] Last Admin: 08/26/22 08:52 Dose: Not Given Documented By: MICHELLE Non-Admin Reason: No Access Warfarin Sodium (Warfarin Sodium 2.5 Mg Tablet) 2.5 mg PO DAILY@1800 [facility] Last Admin: 08/25/22 17:05 Dose: 2.5 mg Documented By: MICHELLE Labs CBC & Chem 7: 08/22/22 06:51 08/22/22 06:51 Labs: Laboratory Results - last 24 hr 08/25/22 08/25/22 08/26/22 16:02 19:35 05:48 PT 29.5 H INR 2.5 H POC Glucose 151 H 198 H 08/26/22 08/26/22 07:45 11:13 PT INR POC Glucose 135 H 170 H Assessment and Plan (1) Nondisplaced fracture of distal end of fibula: Status: Acute (2) UTI (urinary tract infection): Status: Acute (3) Fall: Status: Acute Plan 81-year-old female with a past medical history of hypertension, hyperlipidemia, diabetes, CHF, CKD, AFib on Coumadin, right hip osteoarthritis, hypothyroidism, neurogenic bladder presented to the hospital after a fall.? Fall Mechanical in nature.? CT head, CT C-spine showed no acute intracranial process or helical fracture.? Right distal fibular fracture Venous duplex negative for any blood clots Orthopedic team input appreciated, recommended tall walking boot, weight-bearing as tolerated To follow-up with Orthopedic as outpatient Pain control COVID positive pt asymptomatic. Saturating well on RA. No active treatment needed Chronic bilateral lymphedema Patient had right leg erythema,reports chronic. patient was seen by vascular surgery during the last admission-recommended outpatient vascular surgery clinic follow-up for peripheral vascular disease. UTI Finished 1 week of ceftriaxone. cultures growing E coli. History of AFib Rate controlled.? Patient on Coumadin.? INR2.3, restart Coumadin History of hypothyroidism:? Continue home levothyroxine History of hypertension: Continue home antihypertensives History of diabetes:? Insulin sliding scale History of CHF:? Stable History of CKD: baseline Creatinine around 1.4 DVT prophylaxis:? Patient on Coumadin Code status:? Full code Disposition: PT/ OT recommended STR The patient will need overnight hospital stay Pending authorization for placement. Quality Stroke Does the patient have a stroke diagnosis?: No VTE Prior VTE?: No VTE Risk Level:: Medical - moderate - high VTE Device Contraindication: Treatment Not Indicated VTE Drug Contraindication: N/A - Med Ordered
[2022-08-26] MEDS: Nystatin Powder 15 GM BOTTLE 1 APPL TOPICAL (13:19)
--- NOTE | 2022-08-26 14:31 | P.DS_ITS ---
DS: Providers Provider Date of Service: 08/26/22 Date of admission: 08/15/22 22:07 Primary care physician: Nano Delaney MD Consults: 08/19/22 11:13 Consult to Orthopedics Routine Consulting Provider: German Hines Reason for consultation: ? right ankle fx Has provider been notified: No DS: Diagnosis Discharge Diagnosis (1) Nondisplaced fracture of distal end of fibula: Status: Acute (2) UTI (urinary tract infection): Status: Acute (3) Fall: Status: Acute (4) Weakness: Status: Acute (5) COVID-19 virus infection: Status: Acute DS: Summary Hospital Course Hospital Course: Admission note HPI This is a 81-year-old with past medical history of permanent atrial fibrillation on Coumadin, right hip osteoarthritis, chronic congestive heart failure with preserved ejection fraction, CKD stage 3, hypothyroidism, insulin-dependent diabetes mellitus, essential hypertension, neurogenic bladder presents to emergency department after a fall.? Patient states she was in the garage and might have slipped.? She hit her head and fell on the right side.? Patient did not lose consciousness, no jerking movement of extremities, no tongue bite but she was not able to get up by herself after the fall.? As per the daughter, this is not her baseline and she has been getting progressively weak over the last few days.? On review of systems, patient does complain of burning micturition that has been ongoing for the last few days.? No fever but did have some chills and an episode of vomiting 2 days ago.? Denies abdominal discomfort, chest pain, palpitations, shortness of breath or changes in bowel habits. Hospital course The patient was admitted to the hospital for evaluation of leg pain after sustaining a fall. CT head and C-spine were negative for any acute findings. Images were consistent with right distal fibular fracture that was evaluated by orthopedic team who recommended tall walking boot with weight-bearing as tolerated with a plan to follow-up as outpatient in the orthopedic clinic. The patient was able to participate with physical therapy and able to ambulate with recommendation for short-term rehab. Noted to have positive COVID virus infection. Asymptomatic. Saturating normal on room air. No active treatment needed during the hospital stay. Developed UTI that was treated with IV antibiotic of ceftriaxone for 1 week as urine culture grew E coli. Take MiraLax daily to avoid constipation Nystatin powder for fungal infection To follow-up with orthopedic team as outpatient Time Spent with Patient Time attestation: Total time spent providing and/or coordinating discharge services: Discharge coordination time: Greater than 30 minutes Quality: Safe Use of Opioids Does Pt have an Active Cancer Diagnosis on the Problem List?: No Quality: Stroke Does the patient have a stroke diagnosis?: No Physical Exam Vital Signs: Vital Signs: Last Vital Signs Temp 97.5 F 08/26/22 07:36 Pulse 97 08/26/22 07:36 Resp 17 08/26/22 07:36 BP 140/73 H 08/26/22 07:36 Pulse Ox 97 08/26/22 07:36 O2 Del Method 08/26/22 07:36 FiO2 96 08/24/22 20:00 BMI result Body Mass Index 32.8 Const: Other: Constitutional : Alert, oriented, not in distress Neck : Normal inspection, Supple Cardiovascular : RRR, no JVP, no lower extremity edema Respiratory : fair bilateral air entry, no crackles, wheezes or rhonchi Gastrointestinal: soft, lax, Normal bowel sounds, Non tender Skin : Warm, Dry Extremities: Right leg in the boot Neurological : Alert & oriented x3, No focal deficit , CN 2-12 within normal DS: Data Data Completed and Pending Completed studies during hospitalization [Text1]: Procedures Extirpation of Matter from Bladder, Via Natural or Artificial Opening Endoscopic (06/27/22) Fluoroscopy of Kidneys, Ureters and Bladder (06/27/22) Labs on day of discharge: Laboratory Results - last 24 hr 08/25/22 08/25/22 08/26/22 16:02 19:35 05:48 PT 29.5 H INR 2.5 H POC Glucose 151 H 198 H 08/26/22 08/26/22 07:45 11:13 PT INR POC Glucose 135 H [address] scan - head: Radiologist's impression: ITS Impressions Cervical Spine CT 08/15/22 17:47 IMPRESSION: 1. No acute intracranial pathology. 2. No CT evidence of acute cervical spine fracture or traumatic subluxation Head CT 08/15/22 17:47 IMPRESSION: 1. No acute intracranial pathology. 2. No CT evidence of acute cervical spine fracture or traumatic subluxation Abdomen/Pelvis CT 08/15/22 17:49 IMPRESSION: Severe arthritic changes right hip. No acute deformity. Chronic findings as above. Appearance is similar to baseline. Chest CT 08/15/22 17:49 IMPRESSION: Severe arthritic changes right hip. No acute deformity. Chronic findings as above. Appearance is similar to baseline. Knee X-Ray 08/15/22 18:56 FINDINGS/IMPRESSION: * No acute fracture or dislocation. * Status post total knee arthroplasty, with a trace suprapatellar joint effusion and enthesopathy of the quadriceps and patellar tendons. No evidence of hardware fracture or complication. * Atherosclerotic vascular calcification. Venous Duplex 08/18/22 14:35 IMPRESSION: No DVT demonstrated in the right upper extremity. Ankle X-Ray 08/19/22 10:53 IMPRESSION: Oblique lucency of the distal fibular metaphysis, concerning for a nondisplaced fracture. Soft tissue swelling. Discharge Plan Discharge Anticipated Discharge Date/Time: 08/26/22 14:27 Patient Disposition: [facility] Discharge Diagnosis: Fall, nondisplaced distal fibula fracture COVID UTI Referrals: [facility] [Outside] - 1 Week Nano Delaney MD [Primary Care Provider] - 1 Week Discharge Medications: New polyethylene glycol 3350 17 gram Powder In Packet 30 g PO DAILY Qty: 30 0RF nystatin 100,000 unit/gram Powder 1 appl topical TID 7 Days Qty: 7 0RF Protocol: Apply to: Apply to: underneath abdomen and under breasts Continued amlodipine 5 mg tablet 5 mg PO DAILY 90 Days Qty: 90 0RF furosemide 40 mg Tablet 40 mg PO BID@0900,1800 30 Days Qty: 60 0RF Protocol: Hold for SBP< HOLD for SBP < : 90 insulin glargine [Lantus U-100 Insulin] 100 unit/mL solution 20 unit subcut BEDTIME metoprolol succinate 100 mg Tablet Extended Release 24 Hr 200 mg PO DAILY Qty: 15 0RF Protocol: Hold for SBP/HR < HOLD for SBP < : 90 HOLD for HR < : 60 warfarin [Jantoven] 2 mg Tablet 2 mg PO Q48H Qty: 15 0RF warfarin [Jantoven] 1 mg Tablet 1 mg PO Q48H Qty: 15 0RF levothyroxine 25 mcg tablet 25 mcg PO DAILY oxybutynin chloride 10 mg tablet extended release 24hr 10 mg PO DAILY aspirin 81 mg tablet,delayed release (DR/EC) 81 mg PO DAILY (DME) pen needle, diabetic [BD Cathy 2nd Gen Pen Needle] 32 gauge x 5/32 needle See Rx Instructions subcut DAILY Qty: 50 Rx Instructions: As directed atorvastatin 10 mg tablet 10 mg PO BEDTIME Discharge Orders: Discharge Order (Routine); Ordered 08/26/22 Ordered By: Sabine Szymanski Diet: Advance to usual diet Activity on Discharge: As tolerated Stand Alone Forms: Patient Portal Discharge page Care Plan Goals: Read below Health Concerns: Read below Plan of Treatment: Read below Assessment: You were admitted to the hospital after sustaining a fall. Found to have right distal fibula fracture evaluated by orthopedic team who recommended tall walking boot and weight-bearing as tolerated with a plan to follow-up as outpatient. You were found to have positive COVID result with no signs of infection. Treated for urine infection with 1 week of antibiotic. Evaluated by Physical therapy who recommended short-term rehab. Take MiraLax daily to avoid constipation Nystatin powder for fungal infection To follow-up with orthopedic team as outpatient
--- NOTE | 2022-08-26 14:33 | MHC.CM.PN ---
Patient is medically cleared for dc to SNF/STR today. Patient will dc to the SNF she has chosen/ [facility] today @ 5 PM, via [facility]. CM has also informed Patient's Daughter/Danielle @ [phone] of the dc plan.[facility] addressed with Patient over the phone at Ext. [phone].
[2022-08-26 15:23] VITALS: BP 123/64; PULSE 76; RESP 16; TEMP 36.3; O2SAT 100
[2022-08-26 16:30] LABS: Glucose, Whole Blood 130 mg/dL (60-115)
== END 2022-08-26 16:50 | disposition skilled nursing facility (03) | DRG 689 ==
LOC: HO.ED 21:47 → HO.EDOVER 22:27 → HO.IMC 08-16 12:33
PROVIDERS: Hospitalist; Nurse Practitioner Acute Care; Physician Assistant; Student in an Organized Health Care Education/Training Program; Admitting Provider Student in an Organized Health Care Education/Training Program; Emergency Provider Emergency Medicine Emergency Medical Services; PCP Internal Medicine; Visit Provider Student in an Organized Health Care Education/Training Program
DX: N30.90 Cystitis, unspecified without hematuria (principal); U07.1 COVID-19; I13.0 Hypertensive heart and chronic kidney disease with heart failure and stage 1 through stage 4 chronic kidney disease, or unspecified chronic kidney disease; I50.32 Chronic diastolic (congestive) heart failure; I48.21 Permanent atrial fibrillation; I87.311 Chronic venous hypertension (idiopathic) with ulcer of right lower extremity; L97.319 Non-pressure chronic ulcer of right ankle with unspecified severity; B96.20 Unspecified Escherichia coli [E. coli] as the cause of diseases classified elsewhere; I25.10 Atherosclerotic heart disease of native coronary artery without angina pectoris; E11.22 Type 2 diabetes mellitus with diabetic chronic kidney disease; N18.30 Chronic kidney disease, stage 3 unspecified; E03.9 Hypothyroidism, unspecified; E11.65 Type 2 diabetes mellitus with hyperglycemia; N31.8 Other neuromuscular dysfunction of bladder; M16.11 Unilateral primary osteoarthritis, right hip; S82.831A Other fracture of upper and lower end of right fibula, initial encounter for closed fracture; W19.XXXA Unspecified fall, initial encounter; E11.51 Type 2 diabetes mellitus with diabetic peripheral angiopathy without gangrene; Z93.6 Other artificial openings of urinary tract status; Z95.1 Presence of aortocoronary bypass graft; Z87.440 Personal history of urinary (tract) infections; Z79.4 Long term (current) use of insulin; Z79.01 Long term (current) use of 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; Z79.82 Long term (current) use of aspirin; Z79.899 Other long term (current) drug therapy
CPT/HCPCS: 36415; 70450; 71250; 72125; 73564; 73600; 74176; 80048; 80053; 81001; 82947; 83036; 83880; 84443; 84484; 85025; 85610; 87086; 87088; 87186; 87635; 93005; 93971; 97110; 97162; 97166; 97530; 97535; 99285; J0696; J1940; J2270

== ENCOUNTER → 2022-09-12 11:11 | Outpatient (BNVA) | payer MEDICARE, SELFPAY | PROVIDERS: PCP Internal Medicine; Visit Provider Urology | DX: N39.0 Urinary tract infection, site not specified (principal); E08.40 Diabetes mellitus due to underlying condition with diabetic neuropathy, unspecified; N31.9 Neuromuscular dysfunction of bladder, unspecified | CPT/HCPCS: 51705; 99212 ==

== ENCOUNTER 2022-09-15 12:54 | Outpatient (REF) | payer MEDICARE, SELFPAY ==
--- NOTE | ~2022-09-15 | XR_ITS ---
EXAMINATION: XR ANKLE, RIGHT CLINICAL INFORMATION: Right ankle. COMPARISON: 08/19/2022. TECHNIQUE: AP, lateral, and mortise views of the right ankle. FINDINGS: Again seen is the oblique fracture through the distal tibia without significant displacement. There is soft tissue swelling at the ankle. The ankle mortise appears stable. No ankle joint effusion is seen. Marked degenerative changes are present in the forefoot. Generalized osteopenia is present. No other fractures are seen. XR/XR ankle RT min 3V IMPRESSION: Oblique fracture distal tibia without significant displacement. Generalized osteopenia. Degenerative changes in the forefoot.
== END 2022-09-15 12:55 | disposition home or self-care (01) ==
LOC: HO.HOSX 12:54
PROVIDERS: Visit Provider Physician Assistant
DX: S82.831D Other fracture of upper and lower end of right fibula, subsequent encounter for closed fracture with routine healing (principal); W19.XXXD Unspecified fall, subsequent encounter
CPT/HCPCS: 73610; 99212

== ENCOUNTER 2022-09-24 07:04 | Outpatient (REF) | payer MEDICARE, SELFPAY ==
[2022-09-24 10:39] LABS: MANUAL DIFF FLAG NO
[2022-09-24 10:50] LABS: Basophils Absolute Auto 0.1 X10*3/uL (0.0-0.2); Basophils Percent Auto 0.6 % (0-2); Eosinophils Absolute Auto 0.2 X10*3/uL (0.0-0.4); Eosinophils Percent Auto 2.2 % (0-4); Hematocrit 42.7 % (37.0-47.0); Hemoglobin 13.4 g/dl (12.0-16.0); Imm Gran Abs Auto 0.04 X10*3/uL (0.00-0.03); Imm Gran Pct Auto 0.5 % (0.0-0.4); Lymphocytes Absolute Auto 1.7 X10*3/uL (1.2-4.9); Lymphocytes Percent Auto 19.2 % (20-40); Mean Corpuscular HGB Conc 31.4 g/dl (31.0-35.0); Mean Corpuscular Hemoglobin 27.7 pg (27.0-33.0); Mean Corpuscular Volume 88.4 fL (80.0-98.0); Mean Platelet Volume 9.5 fL (9.4-12.3); Monocytes Absolute Auto 0.8 X10*3/uL (0.1-1.2); Monocytes Percent Auto 9.3 % (2-11); Neutrophils Percent Auto 68.2 % (45-73); Platelet Count 303 X10*3/uL (160-400); Red Blood Count 4.83 X10*6/uL (4.20-5.50); Red Cell Distribution Width 16.4 % (11.0-16.0); White Blood Count 8.8 X10*3/uL (4.8-10.8)
[2022-09-24 11:02] LABS: Prothrombin Time 91.5 SEC (10.0-13.1)
[2022-09-24 11:10] LABS: INTERNATIONAL NORM RATIO 7.3 (0.9-1.1)
== END 2022-09-24 07:05 | disposition home or self-care (01) ==
LOC: HO.LHD 07:04
PROVIDERS: Visit Provider Internal Medicine
DX: I48.91 Unspecified atrial fibrillation (principal)
CPT/HCPCS: 36415; 85025; 85610

== ENCOUNTER → 2022-10-23 14:48 | Outpatient (BNVA) | payer MEDICARE, SELFPAY | PROVIDERS: PCP Internal Medicine; Visit Provider Internal Medicine | DX: Z79.01 Long term (current) use of 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 (principal) ==

== ENCOUNTER → 2022-10-30 14:52 | Outpatient (BNVA) | payer MEDICARE, SELFPAY | PROVIDERS: PCP Internal Medicine; Visit Provider Internal Medicine | DX: Z79.01 Long term (current) use of 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 (principal) ==

== ENCOUNTER → 2022-11-06 12:16 | Outpatient (BNVA) | payer MEDICARE, SELFPAY | PROVIDERS: PCP Internal Medicine; Visit Provider Internal Medicine | DX: Z79.01 Long term (current) use of 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 (principal) ==

== ENCOUNTER 2022-11-10 16:26 | Outpatient (REF) | payer MEDICARE, SELFPAY ==
--- NOTE | ~2022-11-10 | XR_ITS ---
EXAMINATION: XR ANKLE, RIGHT CLINICAL INFORMATION: Right ankle pain. COMPARISON: Right ankle radiographs dated 09/15/2022. TECHNIQUE: AP, lateral, and mortise views of the right ankle. FINDINGS: There has been interval healing of the previously seen nondisplaced oblique fracture of the distal fibula metadiaphysis. The fracture line is still visualized. The distal tibia is intact. The tarsal bones are normally aligned. Small plantar and retrocalcaneal spurs are seen. Moderate soft tissue swelling is seen. XR/XR ankle RT min 3V IMPRESSION: Progressive healing of the distal fibular metadiaphysis fracture at the fracture line still visualized.
== END 2022-11-10 16:27 | disposition home or self-care (01) ==
LOC: HO.HOSX 16:26
PROVIDERS: Visit Provider Physician Assistant
DX: S82.831D Other fracture of upper and lower end of right fibula, subsequent encounter for closed fracture with routine healing (principal); X58.XXXD Exposure to other specified factors, subsequent encounter
CPT/HCPCS: 73610

== ENCOUNTER → 2022-11-13 13:57 | Outpatient (BNVA) | payer MEDICARE, SELFPAY | PROVIDERS: PCP Internal Medicine; Visit Provider Internal Medicine | DX: Z79.01 Long term (current) use of 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 (principal) ==

== ENCOUNTER → 2022-11-20 12:03 | Outpatient (BNVA) | payer MEDICARE, SELFPAY | PROVIDERS: PCP Internal Medicine; Visit Provider Internal Medicine | DX: Z79.01 Long term (current) use of 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 (principal) ==

== ENCOUNTER → 2022-11-27 11:53 | Outpatient (BNVA) | payer MEDICARE, SELFPAY | PROVIDERS: PCP Internal Medicine; Visit Provider Internal Medicine | DX: Z79.01 Long term (current) use of 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 (principal) ==

== ENCOUNTER → 2022-12-04 15:32 | Outpatient (BNVA) | payer MEDICARE, SELFPAY | PROVIDERS: PCP Internal Medicine; Visit Provider Internal Medicine | DX: Z79.01 Long term (current) use of 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 (principal) ==

== ENCOUNTER 2022-12-08 11:00 | Outpatient (REF) | payer MEDICARE, SELFPAY ==
--- NOTE | ~2022-12-08 | XR_ITS ---
EXAMINATION: XR ANKLE, RIGHT CLINICAL INFORMATION: Pain. COMPARISON: Radiographs dated 11/10/2022. TECHNIQUE: AP, lateral, and mortise views of the right ankle. FINDINGS: There is bony demineralization. An oblique, nondisplaced fracture line is faintly redemonstrated of the distal left fibula. There is adjacent mild soft tissue swelling. The ankle mortise is intact. No fracture, dislocation or right ankle joint effusion is seen. There is osteoarthritic change of the tibiotalar joint. Boehler's angle is normal. There are moderate posterior and small plantar calcaneal spurs. No soft tissue gas or foreign body is seen. XR/XR ankle RT min 3V IMPRESSION: A nondisplaced oblique fracture line of the distal right tibia is faintly redemonstrated. There is mild adjacent soft tissue swelling.
== END 2022-12-08 11:01 | disposition home or self-care (01) ==
LOC: HO.HOSX 11:00
PROVIDERS: Visit Provider Physician Assistant
DX: S82.831D Other fracture of upper and lower end of right fibula, subsequent encounter for closed fracture with routine healing (principal); X58.XXXD Exposure to other specified factors, subsequent encounter
CPT/HCPCS: 73610

== ENCOUNTER → 2022-12-11 09:37 | Outpatient (BNVA) | payer MEDICARE, SELFPAY | PROVIDERS: PCP Internal Medicine; Visit Provider Internal Medicine | DX: Z79.01 Long term (current) use of 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 (principal) ==

== ENCOUNTER → 2022-12-18 16:02 | Outpatient (BNVA) | payer MEDICARE, SELFPAY | PROVIDERS: PCP Internal Medicine; Visit Provider Internal Medicine | DX: Z79.01 Long term (current) use of 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 (principal) ==

== ENCOUNTER → 2022-12-23 14:20 | Outpatient (BNVA) | payer MEDICARE, SELFPAY | PROVIDERS: PCP Internal Medicine; Visit Provider Internal Medicine | DX: Z79.01 Long term (current) use of 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 (principal) ==

== ENCOUNTER → 2022-12-26 11:42 | Outpatient (BNVA) | payer MEDICARE, SELFPAY | PROVIDERS: PCP Internal Medicine; Visit Provider Internal Medicine | DX: Z79.01 Long term (current) use of 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 (principal) ==

== ENCOUNTER → 2023-01-01 14:22 | Outpatient (BNVA) | payer MEDICARE, SELFPAY | PROVIDERS: PCP Internal Medicine; Visit Provider Internal Medicine | DX: Z79.01 Long term (current) use of 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 (principal) ==

== ENCOUNTER → 2023-01-08 13:00 | Outpatient (BNVA) | payer MEDICARE, SELFPAY | PROVIDERS: PCP Internal Medicine; Visit Provider Internal Medicine | DX: I48.0 Paroxysmal atrial fibrillation (principal); Z79.01 Long term (current) use of 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; Z51.81 Encounter for therapeutic drug level monitoring | CPT/HCPCS: 99211 ==

== ENCOUNTER → 2023-01-16 15:13 | Outpatient (BNVA) | payer MEDICARE, SELFPAY | PROVIDERS: PCP Internal Medicine; Visit Provider Internal Medicine | DX: Z79.01 Long term (current) use of 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 (principal) ==

== ENCOUNTER → 2023-01-22 11:06 | Outpatient (BNVA) | payer MEDICARE, SELFPAY | PROVIDERS: PCP Internal Medicine; Visit Provider Internal Medicine | DX: Z79.01 Long term (current) use of 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 (principal) ==

== ENCOUNTER → 2023-01-29 14:27 | Outpatient (BNVA) | payer MEDICARE, SELFPAY | PROVIDERS: PCP Internal Medicine; Visit Provider Internal Medicine | DX: Z79.01 Long term (current) use of 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 (principal) ==

== ENCOUNTER → 2023-02-05 12:46 | Outpatient (BNVA) | payer MEDICARE, SELFPAY | PROVIDERS: PCP Internal Medicine; Visit Provider Internal Medicine ==

== ENCOUNTER → 2023-02-09 14:11 | Outpatient (BNVA) | payer MEDICARE, SELFPAY | PROVIDERS: PCP Internal Medicine; Referring Provider Internal Medicine; Visit Provider Internal Medicine Cardiovascular Disease | DX: I48.21 Permanent atrial fibrillation (principal); I25.10 Atherosclerotic heart disease of native coronary artery without angina pectoris; I50.9 Heart failure, unspecified; Z79.01 Long term (current) use of 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 | CPT/HCPCS: 93005; 99212 ==

== ENCOUNTER 2023-02-10 23:04 | Emergency (ER) | payer MEDICARE, SELFPAY ==
[2023-02-10 23:44] VITALS: BP 126/62; PULSE 94; RESP 16; TEMP 36.7; O2SAT 95; BMI 33.4
--- NOTE | 2023-02-11 02:27 | ED_ITS ---
HPI - General Adult General Chief complaint: General Medical Stated complaint: Catheter issue Time Seen by Provider: 02/11/23 02:24 Source: patient Mode of arrival: ambulatory Limitations: no limitations History of Present Illness HPI narrative: Patient with chronic suprapubic catheter for 4 years changed 2 weeks ago came here as she did not notice any urine drained last 4 hours no other active complaints no fever no chills no flank pain no nausea vomiting Related Data Home Medications Medication Instructions Recorded Confirmed levothyroxine 25 mcg tablet 25 mcg PO DAILY 09/05/20 02/09/23 aspirin 81 mg tablet,delayed 81 mg PO DAILY 09/11/21 02/09/23 release pen needle, diabetic 32 gauge x #50 ea 12/31/21 02/09/23 (BD Cathy 2nd Gen Pen Needle) insulin glargine 100 unit/mL 20 unit subcut BEDTIME 08/15/22 02/09/23 subcutaneous solution (Lantus U-100 Insulin) ammonium lactate 12 % lotion appl topical 09/08/22 02/09/23 acetaminophen 325 mg capsule 650 mg PO Q4H PRN 09/15/22 02/09/23 ascorbate calcium (vitamin C) 500 500 mg PO DAILY 09/15/22 02/09/23 mg tablet bisacodyl 10 mg rectal suppository 10 mg HI DAILY PRN 09/15/22 02/09/23 multivitamin (One Daily 1 tab PO DAILY 09/15/22 02/09/23 Multivitamin tablet) oxybutynin chloride 10 mg 10 mg PO DAILY 09/15/22 02/09/23 tablet,extended release 24 hr sennosides 8.6 mg capsule (senna) 8.6 mg PO DAILY 09/15/22 02/09/23 sodium phosphates 19 gram-7 118 ml [place] DAILY PRN 09/15/22 02/09/23 gram/118 mL enema (Fleet Enema) insulin glargine 100 unit/mL (3 unit subcut BID 09/24/22 02/09/23 mL) subcutaneous pen (Lantus Solostar U-100 Insulin) lancets 28 gauge (FreeStyle #100 ea 09/29/22 02/09/23 Lancets) Previous Rx's Medication Instructions Recorded polyethylene glycol 3350 17 gram 30 g PO DAILY #30 ea 10/25/22 oral powder packet amlodipine 5 mg tablet 5 mg PO DAILY 90 days #90 tabs 09/22/22 atorvastatin 10 mg tablet 10 mg PO BEDTIME #90 tabs 09/22/22 furosemide 40 mg tablet 40 mg PO BID 90 days #180 tabs 09/22/22 metoprolol succinate 200 mg 200 mg PO DAILY #90 tabs 09/22/22 tablet,extended release 24 hr warfarin 2 mg tablet (Jantoven) 2 mg PO Q48H #90 tabs 12/20/22 warfarin 1 mg tablet (Jantoven) 1 mg PO Q48H 90 days #45 tabs 12/23/22 Allergies Allergy/AdvReac Type Severity Reaction Status Date / Time No Known Allergies Allergy Verified 02/09/23 14:38 [No Known Allergies*] Review of Systems Review of Systems: Yes all other systems are reviewed and are negative [facility] Past Medical History Medical History Atrial fibrillation CAD (coronary artery disease) CKD (chronic kidney disease) Congestive heart failure Diabetes Hip pain Hypertension Hypothyroidism Hypotonic neurogenic bladder Leg wound, left Osteoarthritis of right hip PAF (paroxysmal atrial fibrillation) Urinary incontinence Varicose vein of leg Surgical History H/O heart artery stent H/O nasal polypectomy History of tonsillectomy and adenoidectomy History of tubal ligation Hx of cholecystectomy Family History Family History Father Hx of angina pectoris Myocardial infarction Mother Ovarian cancer Stomach cancer Maternal Grandfather Hardening of the arteries of the heart Social History Social History Household Members: Children Household Members Other:: daughter Housing: House Do you presently have visiting nurse or other home services: Yes (meals and wheels, wound care) Alcohol intake: never Patient Tobacco Use Status: Never used Tobacco Second Hand Smoke Exposure: No Use of substances other than those prescribed or required for medical reasons: No Advance Directives: No Advance Directives Information Provided: Yes service: No Current occupational status: retired Physical Exam ED Vital Signs: Vital Signs - 24 hr 02/10/23 23:44 04/12/23 02:29 Temperature 98.0 F 97.4 F Pulse Rate 94 97 Respiratory Rate 16 18 Blood Pressure 126/62 124/56 L Pulse Oximetry 95 98 Oxygen Delivery Method Room Air Room Air BMI result Body Mass Index 33.4 Appearance: Alert. Oriented X3. No acute distress. ENT: Pharynx normal. Oral Mucosa moist Neck: Normal inspection. Neck supple. CVS: Normal heart rate and rhythm. Pulses normal. Respiratory: No respiratory distress. Equal air entry bilateral, no wheezing/rales/rhonchi Abdomen: Soft and nontender. Bowel sounds are present, no mass palpable, no CVA tenderness suprapubic in place Skin: Skin warm and dry. Normal skin color. Normal skin turgor. Extremities: No lower extremity edema. No calf tenderness Neuro: Oriented X 3. No motor deficit. No sensory deficit.No cerebellar signs , cranial nerves II-XII intact Procedures Catheter Insertion (Urinary) Date of insertion: 02/11/23 Time of insertion: 03:12 Reason for placing: Yes Reason for placing indwelling catheter: Other Bladder scan/ultrasound used before catheterization: No Topical anesthesia used: No Catheter type/location: Suprapubic Size (Yi): 16 Catheter balloon size (mL): 10 Catheter balloon amount: 10 Results: successfully catheterized-immediate flow Procedure performed: without complications Medical Decision Making Medical Decision Making MDM Narrative: Patient old suprapubic catheter was removed no significant debris was noticed at the tip of the catheter new Healy catheter replaced no significant urine drainage bladder scan showed 0 cc of urine in bladder patient was given p.o. fluid advised to drink plenty of fluids and follow with PCP patient does not have any other active complaints vitals are stable Lab Data Labs: Lab Results 02/11/23 Range/Units 02:50 POC Glucose 136 H (60-115) mg/dL Discharge Plan Discharge Clinical Impression: Encounter for suprapubic catheter care Patient Disposition: Home, Self-Care Instructions: How to Care for Your Suprapubic Catheter (DC) Additional Instructions: Care as advised Drink plenty of fluids Follow-up with your urologist if any concerns Prescriptions: No Action amlodipine 5 mg tablet 5 mg PO DAILY 90 Days Qty: 90 3RF atorvastatin 10 mg tablet 10 mg PO BEDTIME Qty: 90 3RF metoprolol succinate 200 mg tablet extended release 24 hr 200 mg PO DAILY Qty: 90 3RF furosemide 40 mg tablet 40 mg PO BID 90 Days Qty: 180 3RF Protocol: Hold for SBP< HOLD for SBP < : 90 Rx Instructions: Discharged home on this dose from [facility] per Linda Fraga NP. warfarin [Novtoven] 2 mg tablet 2 mg PO Q48H Qty: 90 0RF Protocol: Dose Management Condition: Thursday (Week One) Dose/Route: 1 mg Instruction: 1 x 1 mg tablet Condition: Thursday Dose/Route: 2 mg Instruction: 1 x 2 mg tablet Condition: Thursday Dose/Route: 2 mg Instruction: 1 x 2 mg tablet Condition: Thursday Dose/Route: 1 mg Instruction: 1 x 1 mg tablet Condition: Dose/Route: 2 mg Instruction: 1 x 2 mg tablet Condition: Thursday Dose/Route: 2 mg Instruction: 1 x 2 mg tablet Condition: Thursday Dose/Route: 2 mg Instruction: 1 x 2 mg tablet Condition: Thursday ( Two) Dose/Route: 1 mg Instruction: 1 x 1 mg tablet Condition: Thursday Dose/Route: 2 mg Instruction: 1 x 2 mg tablet Condition: Thursday Dose/Route: 2 mg Instruction: 1 x 2 mg tablet Condition: Thursday Dose/Route: 1 mg Instruction: 1 x 1 mg tablet Condition: Dose/Route: 2 mg Instruction: 1 x 2 mg tablet Condition: Thursday Dose/Route: 2 mg Instruction: 1 x 2 mg tablet Condition: Thursday Dose/Route: 2 mg Instruction: 1 x 2 mg tablet Protocol Text: Adjustment Start Date: 02/05/23 INR Value: 2.2 INR Date: 02/05/23 Recheck Date: 02/12/23 Additional Instructions: cont prev dosing warfarin [Novtoven] 1 mg tablet 1 mg PO Q48H 90 Days Qty: 45 1RF Protocol: Dose Management Condition: Thursday ( One) Dose/Route: 1 mg Instruction: 1 x 1 mg tablet Condition: Thursday Dose/Route: 2 mg Instruction: 1 x 2 mg tablet Condition: Thursday Dose/Route: 2 mg Instruction: 1 x 2 mg tablet Condition: Thursday Dose/Route: 1 mg Instruction: 1 x 1 mg tablet Condition: Dose/Route: 2 mg Instruction: 1 x 2 mg tablet Condition: Thursday Dose/Route: 2 mg Instruction: 1 x 2 mg tablet Condition: Thursday Dose/Route: 2 mg Instruction: 1 x 2 mg tablet Condition: Thursday (Week Two) Dose/Route: 1 mg Instruction: 1 x 1 mg tablet Condition: Thursday Dose/Route: 2 mg Instruction: 1 x 2 mg tablet Condition: Thursday Dose/Route: 2 mg Instruction: 1 x 2 mg tablet Condition: Thursday Dose/Route: 1 mg Instruction: 1 x 1 mg tablet Condition: Dose/Route: 2 mg Instruction: 1 x 2 mg tablet Condition: Thursday Dose/Route: 2 mg Instruction: 1 x 2 mg tablet Condition: Thursday Dose/Route: 2 mg Instruction: 1 x 2 mg tablet Protocol Text: Adjustment Start Date: 02/05/23 INR Value: 2.2 INR Date: 02/05/23 Recheck Date: 02/12/23 Additional Instructions: cont prev dosing insulin glargine [Lantus U-100 Insulin] 100 unit/mL solution 20 unit subcut BEDTIME polyethylene glycol 3350 17 gram Powder In Packet 30 g PO DAILY Qty: 30 0RF levothyroxine 25 mcg tablet 25 mcg PO DAILY aspirin 81 mg tablet,delayed release (DR/EC) 81 mg PO DAILY (DME) pen needle, diabetic [BD Cathy 2nd Gen Pen Needle] 32 gauge x 5/32 needle See Rx Instructions subcut DAILY Qty: 50 Rx Instructions: As directed ammonium lactate 12 % lotion topical (DME) lancets [FreeStyle Lancets] 28 gauge misc See Rx Instructions .ROUTE BID Qty: 100 Rx Instructions: As directed Fleet Enema 19-7 gram/118 mL enema 118 ml HI DAILY PRN ascorbate calcium (vitamin C) 500 mg tablet 500 mg PO DAILY multivitamin [One Daily Multivitamin] Tablet 1 tab PO DAILY oxybutynin chloride 10 mg tablet extended release 24hr 10 mg PO DAILY senna 8.6 mg capsule 8.6 mg PO DAILY bisacodyl 10 mg suppository 10 mg HI DAILY PRN acetaminophen 325 mg capsule 650 mg PO Q4H PRN insulin glargine [Lantus Solostar U-100 Insulin] 100 unit/mL (3 mL) insulin pen subcut BID Interventions: ED Discharge Assessment Last Done: 02/11/23 03:28 Discharge Date/Time: 02/11/23 03:28
[2023-02-11 02:29] VITALS: BP 124/56; PULSE 97; RESP 18; TEMP 36.3; O2SAT 98
[2023-02-11 02:55] LABS: Glucose, Whole Blood 136 mg/dL (60-115)
== END 2023-02-11 03:28 | disposition home or self-care (01) ==
PROVIDERS: Emergency Provider Internal Medicine; PCP Internal Medicine
DX: Z43.5 Encounter for attention to cystostomy (principal); Z46.6 Encounter for fitting and adjustment of urinary device; E11.22 Type 2 diabetes mellitus with diabetic chronic kidney disease; N31.8 Other neuromuscular dysfunction of bladder; I13.0 Hypertensive heart and chronic kidney disease with heart failure and stage 1 through stage 4 chronic kidney disease, or unspecified chronic kidney disease; N18.9 Chronic kidney disease, unspecified; I50.9 Heart failure, unspecified; E03.9 Hypothyroidism, unspecified; I25.10 Atherosclerotic heart disease of native coronary artery without angina pectoris; N39.498 Other specified urinary incontinence; I48.0 Paroxysmal atrial fibrillation; Z79.01 Long term (current) use of 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; Z79.4 Long term (current) use of insulin; Z79.899 Other long term (current) drug therapy; Z79.82 Long term (current) use of aspirin
CPT/HCPCS: 82947; 99283; 99284

== ENCOUNTER → 2023-02-12 15:05 | Outpatient (BNVA) | payer MEDICARE, SELFPAY | PROVIDERS: PCP Internal Medicine; Visit Provider Internal Medicine ==

== ENCOUNTER → 2023-02-19 11:45 | Outpatient (BNVA) | payer MEDICARE, SELFPAY | PROVIDERS: PCP Internal Medicine; Visit Provider Internal Medicine ==

== ENCOUNTER 2023-02-25 09:06 | Outpatient (REF) | payer MEDICARE, SELFPAY ==
--- NOTE | ~2023-02-25 | XR_ITS ---
EXAMINATION: XR ANKLE, RIGHT CLINICAL INFORMATION: M25.571 - Pain in right ankle and joints of right foot Distal fibular fracture. Follow-up. COMPARISON: Radiographs right ankle 12/08/2022, 11/10/2022, 09/15/2022, 08/19/2022 TECHNIQUE: AP, lateral, and mortise views of the right ankle. FINDINGS: There appears to be osseous union of the distal fibular fracture. There is no acute fracture or dislocation. The ankle mortise is symmetric. There is generalized osteopenia similar to prior studies. Again, there is dorsal spurring mid foot and bulky posterior and smaller plantar calcaneal spurs. XR/XR ankle RT min 3V IMPRESSION: - Healed distal fibular fracture. No acute fracture or dislocation. - Calcaneal spurring and dorsal spurring mid foot similar to prior studies.
== END 2023-02-25 09:07 | disposition home or self-care (01) ==
LOC: HO.HOSX 09:06
PROVIDERS: Visit Provider Physician Assistant
DX: S82.831D Other fracture of upper and lower end of right fibula, subsequent encounter for closed fracture with routine healing (principal); X58.XXXD Exposure to other specified factors, subsequent encounter
CPT/HCPCS: 73610; 99212

== ENCOUNTER 2023-03-03 12:05 | Outpatient (REF) | payer MEDICARE, SELFPAY ==
[2023-03-03 12:20] LABS: MANUAL DIFF FLAG NO
[2023-03-03 12:42] LABS: Basophils Absolute Auto 0.1 X10*3/uL (0.0-0.2); Basophils Percent Auto 0.8 % (0-2); Eosinophils Absolute Auto 0.3 X10*3/uL (0.0-0.4); Eosinophils Percent Auto 3.5 % (0-4); Hematocrit 41.9 % (37.0-47.0); Hemoglobin 13.2 g/dl (12.0-16.0); Imm Gran Abs Auto 0.04 X10*3/uL (0.00-0.03); Imm Gran Pct Auto 0.5 % (0.0-0.4); Lymphocytes Absolute Auto 1.7 X10*3/uL (1.2-4.9); Mean Corpuscular HGB Conc 31.5 g/dl (31.0-35.0); Mean Corpuscular Hemoglobin 27.3 pg (27.0-33.0); Mean Corpuscular Volume 86.6 fL (80.0-98.0); Mean Platelet Volume 9.3 fL (9.4-12.3); Monocytes Absolute Auto 1.1 X10*3/uL (0.1-1.2); Monocytes Percent Auto 12.9 % (2-11); Neutrophils Absolute Auto 5.4 x10*3/uL (2.0-8.3); Neutrophils Percent Auto 62.3 % (45-73); Platelet Count 244 X10*3/uL (160-400); Red Blood Count 4.84 X10*6/uL (4.20-5.50); Red Cell Distribution Width 16.3 % (11.0-16.0); White Blood Count 8.7 X10*3/uL (4.8-10.8)
[2023-03-03 12:49] LABS: Estimated Average Glucose 151 mg/dL; Hemoglobin A1C 186.7297 umol/L; Hemoglobin A1c % 6.9 %
[2023-03-03 13:15] LABS: Alanine Aminotransferase 15 U/L (0-31); Albumin Level 3.7 g/dL (3.5-5.0); Alkaline Phosphatase 132 U/L (39-117); Anion Gap 15 (12-20); Aspartate Amino Transferase 22 U/L (5-31); Blood Urea Nitrogen 33 mg/dL (9-16); Calcium 9.6 mg/dL (8.4-10.2); Carbon Dioxide 28 mmol/L (22-29); Chloride 103 mmol/L (96-108); Cholesterol 131 mg/dL; Estimated Glomerular Filt Rate 31; Glucose Random 148 mg/dL (60-115); HDL Cholesterol 32 mg/dL; LDL Cholesterol Calculated 78 mg/dl; Sodium 142 mmol/L (135-145); Triglycerides 108 mg/dL
[2023-03-03 13:38] LABS: Thyroid Stimulating Hormone 3.54 uIU/mL (0.32-4.0); Vitamin B12 706 pg/mL (200-900); Vitamin D 25-OH Total 39.2 ng/mL (>30)
[2023-03-03 14:05] LABS: Creatinine Urine 41.81 mg/dL; Microalbum/Creatinine Ratio Ur 1796.2 ug/mg cr
== END 2023-03-03 12:06 | disposition home or self-care (01) ==
LOC: HO.LAB 12:05
PROVIDERS: PCP Internal Medicine; Visit Provider Internal Medicine
DX: Z00.00 Encounter for general adult medical examination without abnormal findings (principal); E11.65 Type 2 diabetes mellitus with hyperglycemia; I12.9 Hypertensive chronic kidney disease with stage 1 through stage 4 chronic kidney disease, or unspecified chronic kidney disease; E11.22 Type 2 diabetes mellitus with diabetic chronic kidney disease; N18.9 Chronic kidney disease, unspecified
CPT/HCPCS: 36415; 80053; 80061; 82043; 82306; 82607; 83036; 84443; 85025

== ENCOUNTER → 2023-03-05 11:40 | Outpatient (BNVA) | payer MEDICARE, SELFPAY | PROVIDERS: PCP Internal Medicine; Visit Provider Internal Medicine ==

== ENCOUNTER → 2023-03-12 15:45 | Outpatient (BNVA) | payer MEDICARE, SELFPAY | PROVIDERS: PCP Internal Medicine; Visit Provider Internal Medicine ==

== ENCOUNTER → 2023-03-19 15:07 | Outpatient (BNVA) | payer MEDICARE, SELFPAY | PROVIDERS: PCP Internal Medicine; Visit Provider Internal Medicine ==

== ENCOUNTER → 2023-03-26 11:51 | Outpatient (BNVA) | payer MEDICARE, SELFPAY | PROVIDERS: PCP Internal Medicine; Visit Provider Internal Medicine ==

== ENCOUNTER → 2023-04-02 14:22 | Outpatient (BNVA) | payer MEDICARE, SELFPAY | PROVIDERS: PCP Internal Medicine; Visit Provider Internal Medicine ==

== ENCOUNTER → 2023-04-03 07:38 | Outpatient (REF) | payer MEDICARE, SELFPAY ==
--- NOTE | ~2023-04-03 | NM_ITS ---
Myocardial perfusion study Indication: Atherosclerotic cardiovascular disease to evaluate for myocardial ischemia Technique: The patient was brought in for a Lexiscan perfusion study on 04/03/2023. Patient performed low-level exercise and was injected 0.4 mg of Lexiscan intravenously. Within a minute of injection, 30 mCi of sestamibi was given intravenously. Images were obtained using the SPECT gamma camera interlaced with the gating device. Images were obtained in supine position. Resting perfusion study was performed on 04/06/2023. Patient was administered 30 mCi of sestamibi intravenously at rest. Images were then obtained in supine position. Images obtained with and without CT attenuation. Total DLP 84 mGy-cm. Images were processed with the software and compared side to side in short axis, horizontal long axis and vertical long axis views. Findings: The stress perfusion study showed non attenuated images show moderately reduced uptake in the apical portion of inferolateral and mildly to moderately reduced uptake in the basal and midportion of the inferolateral as well as the basal lateral wall of the LV myocardium. Is also moderately reduced uptake in the basal inferior wall of the LV myocardium. Attenuation corrected images show moderately reduced uptake in the basal and mid inferolateral as well as mildly reduced uptake in the basal lateral wall of the LV myocardium as well as mildly reduced uptake in the basal inferior wall of the LV myocardium.. The gated study shows normal LV systolic function with calculated LVEF of 54%. LV cavity is normal in size. The gated study shows reduced wall thickening and contraction of basal inferior segments. Resting study shows improved uptake in the inferolateral as well as the lateral wall as well as the basal inferior wall of the LV myocardium on both attenuated as well as non attenuated corrected images. Gating at rest reveals normal systolic wall motion with ejection fraction at 45%. The findings are consistent with mild to moderate intensity moderate size basal and mid inferolateral as well as basal lateral and basal inferior wall reversible defect suggestive of ischemia.. NM/NM cardiolite stress test Impression: 1. Myocardial perfusion imaging study shows moderate size mild to moderate intensity basal and mid inferolateral and basal lateral and inferior wall ischemia in circumflex/RCA distribution 2. Gated LVEF is 54% 3. Transient ischemic dilatation not present EKG is nondiagnostic for ischemia
--- NOTE | 2023-04-03 07:42 | CA_ITS ---
Acquisition Time: 2023-04-03 08:09:20 Total Exercise Time: 00:02:00 Test Indications: AFIB Medications: SEE H Protocol: LEXISCAN Max HR: 105 BPM 76% of Pred: 138 BPM Max BP: 132/070 mmHG Max Work Load: 1.0 METS Pharmacological stress test with Lexiscan injection, while sitting and moving left arm, without anginal symptoms, with isolated PVCs, with normotensive response to injection, with nondiagnostic EKG for ischemia. In recovery she was treated with Aminophylline 75mg IVP to reverse Lexiscan. Nuclear images pending. Test reviewed with Dr Herrera. Referred By: Linda Fraga Overread By: LINDA FRAGA
== END ==
LOC: HO.CARD 07:38
PROVIDERS: Visit Provider Nurse Practitioner Family
DX: I25.10 Atherosclerotic heart disease of native coronary artery without angina pectoris (principal); I50.9 Heart failure, unspecified; R06.02 Shortness of breath; I48.21 Permanent atrial fibrillation
CPT/HCPCS: 78452; 93017; A9500; J0280; J2785

== ENCOUNTER → 2023-04-09 11:52 | Outpatient (BNVA) | payer MEDICARE, SELFPAY | PROVIDERS: PCP Internal Medicine; Visit Provider Internal Medicine ==

== ENCOUNTER → 2023-04-16 09:32 | Outpatient (BNVA) | payer MEDICARE, SELFPAY | PROVIDERS: PCP Internal Medicine; Visit Provider Orthopaedic Surgery | DX: M16.11 Unilateral primary osteoarthritis, right hip (principal); E11.9 Type 2 diabetes mellitus without complications; I50.9 Heart failure, unspecified; I48.21 Permanent atrial fibrillation | CPT/HCPCS: 99212 ==

== ENCOUNTER → 2023-04-17 14:28 | Outpatient (BNVA) | payer MEDICARE, SELFPAY | PROVIDERS: PCP Internal Medicine; Visit Provider Internal Medicine ==

== ENCOUNTER → 2023-04-23 13:26 | Outpatient (BNVA) | payer MEDICARE, SELFPAY | PROVIDERS: PCP Internal Medicine; Visit Provider Internal Medicine ==

== ENCOUNTER → 2023-05-07 11:56 | Outpatient (BNVA) | payer MEDICARE, SELFPAY | PROVIDERS: PCP Internal Medicine; Visit Provider Internal Medicine ==

== ENCOUNTER 2023-05-08 02:02 | Emergency (ER) | payer MEDICARE, SELFPAY ==
[2023-05-08 02:10] VITALS: BP 153/89; BP 156/88; PULSE 98; RESP 17; TEMP 36.9; O2SAT 97; O2SAT 98; BMI 34.6
--- NOTE | 2023-05-08 02:30 | ED.FEMALEGU ---
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 does get replaced every 4 weeks was draining normal VNA came and change of Healy yesterday and since then no urine output leaking around the Healy catheter with slight amount of blood complaining of suprapubic discomfort patient took Cipro 1 day before and today as prophylactic antibiotic per protocol other than Healy catheter problem patient denies any significant concern no fever no chills no vomiting Related Data Home Medications Medication Instructions Recorded Confirmed levothyroxine 25 mcg tablet 25 mcg PO DAILY 09/05/20 05/07/23 aspirin 81 mg tablet,delayed 81 mg PO DAILY 09/11/21 05/07/23 release pen needle, diabetic 32 gauge x #50 ea 12/31/21 05/07/23 (BD Cathy 2nd Gen Pen Needle) insulin glargine 100 unit/mL 20 unit subcut BEDTIME 08/15/22 05/07/23 subcutaneous solution (Lantus U-100 Insulin) ammonium lactate 12 % lotion appl topical 09/08/22 05/07/23 acetaminophen 325 mg capsule 650 mg PO Q4H PRN 09/15/22 05/07/23 ascorbate calcium (vitamin C) 500 500 mg PO DAILY 09/15/22 05/07/23 mg tablet bisacodyl 10 mg rectal suppository 10 mg [place] DAILY PRN 09/15/22 05/07/23 multivitamin (One Daily 1 tab PO DAILY 09/15/22 05/07/23 Multivitamin tablet) oxybutynin chloride 10 mg 10 mg PO DAILY 09/15/22 05/07/23 tablet,extended release 24 hr sennosides 8.6 mg capsule (senna) 8.6 mg PO DAILY 09/15/22 05/07/23 sodium phosphates 19 gram-7 118 ml [place] DAILY PRN 09/15/22 05/07/23 gram/118 mL enema (Fleet Enema) insulin glargine 100 unit/mL (3 unit subcut BID 09/24/22 05/07/23 mL) subcutaneous pen (Lantus Solostar U-100 Insulin) lancets 28 gauge (FreeStyle #100 ea 09/29/22 05/07/23 Lancets) aspirin-caffeine 500 mg-32.5 mg tab PO .Q HS 03/05/23 05/07/23 tablet (Back and Body Pain Reliever) melatonin 5 mg capsule mg PO 03/05/23 05/07/23 Previous Rx's Medication Instructions Recorded polyethylene glycol 3350 17 gram 30 g PO DAILY #30 ea 08/26/22 oral powder packet amlodipine 5 mg tablet 5 mg PO DAILY 90 days #90 tabs 09/22/22 atorvastatin 10 mg tablet 10 mg PO BEDTIME #90 tabs 09/22/22 furosemide 40 mg tablet 40 mg PO BID 90 days #180 tabs 09/22/22 metoprolol succinate 200 mg 200 mg PO DAILY #90 tabs 09/22/22 tablet,extended release 24 hr warfarin 2 mg tablet (Jantoven) 2 mg PO Q48H #90 tabs 12/20/22 warfarin 1 mg tablet (Jantoven) 1 mg PO Q48H 90 days #45 tabs 12/23/22 Allergies Allergy/AdvReac Type Severity Reaction Status Date / Time No Known Allergies Allergy Verified 05/08/23 02:10 [No Known Allergies*] Review of Systems Review of Systems: Yes all other systems are reviewed and are negative [facility] Past Medical History Medical History Atrial fibrillation CAD (coronary artery disease) CKD (chronic kidney disease) Congestive heart failure Diabetes Hip pain Hypertension Hypothyroidism Hypotonic neurogenic bladder Leg wound, left Osteoarthritis of right hip PAF (paroxysmal atrial fibrillation) Urinary incontinence Varicose vein of leg Surgical History H/O heart artery stent H/O nasal polypectomy History of tonsillectomy and adenoidectomy History of tubal ligation Hx of cholecystectomy Family History Family History Father Hx of angina pectoris Myocardial infarction Mother Ovarian cancer Stomach cancer Maternal Grandfather Hardening of the arteries of the heart Social History Social History Household Members: Children Household Members Other:: daughter Housing: House Do you presently have visiting nurse or other home services: Yes (meals and wheels, wound care) Alcohol intake: never Patient Tobacco Use Status: Never used Tobacco Second Hand Smoke Exposure: No Advance Directives: Yes Advance Directives Information Provided: Yes Advance Directives on File: Yes Advance Directives Date on File: 08/27/22 service: No Current occupational status: retired Physical Exam Vital Signs: Vital Signs: Last Vital Signs Temp 98.5 F 05/08/23 02:10 Pulse 98 05/08/23 03:35 Resp 16 05/08/23 03:35 BP 150/87 H 05/08/23 03:35 Pulse Ox 98 05/08/23 03:35 O2 Del Method Room Air 05/08/23 03:35 BMI result Body Mass Index 34.6 Appearance: Alert. Oriented X3. No acute distress. CVS: Normal heart rate and rhythm. Pulses normal. Respiratory: No respiratory distress. Equal air entry bilateral, Abdomen: Soft and nontender. Bowel sounds are present, suprapubic catheter in place with minimal drainage Skin: Skin warm and dry. Normal skin color. Normal skin turgor. Extremities: No lower extremity edema. No calf tenderness Neuro: Oriented X 3. Medications Administered Discontinued Medications Generic Name Dose Route Start Last Admin Trade Name Freq PRN Reason Stop Dose Admin Oxycodone HCl 5 mg 05/08/23 03:20 05/08/23 03:34 Oxycodone Hcl Immed Release 5 Mg Tablet PO 05/08/23 03:21 5 mg ONCE ONE Administration Procedures Catheter Insertion (Urinary) Date of insertion: 05/08/23 Time of insertion: 02:46 Reason for placing: Yes Reason for placing indwelling catheter: Urinary obstruction Bladder scan/ultrasound used before catheterization: No Antiseptic solution prep: Povidone-Iodine Topical anesthesia used: No Catheter type/location: Suprapubic Size (Solomon Islander): 18 Catheter balloon size (mL): 10 Catheter balloon amount: 10 Results: successfully catheterized-immediate flow Procedure performed: without complications Discharge Plan Discharge Clinical Impression: Suprapubic catheter dysfunction Patient Disposition: Home, Self-Care Instructions: Healy Catheter Placement and Care (ED) Additional Instructions: Drink plenty of fluids Continue Cipro in the morning Follow-up with your PCP/urologist Prescriptions: No Action amlodipine 5 mg tablet 5 mg PO DAILY 90 Days Qty: 90 3RF atorvastatin 10 mg tablet 10 mg PO BEDTIME Qty: 90 3RF metoprolol succinate 200 mg tablet extended release 24 hr 200 mg PO DAILY Qty: 90 3RF furosemide 40 mg tablet 40 mg PO BID 90 Days Qty: 180 3RF Protocol: Hold for SBP< HOLD for SBP < : 90 Rx Instructions: Discharged home on this dose from [facility] per Linda Fraga NP. warfarin [Jantoven] 2 mg tablet 2 mg PO Q48H Qty: 90 0RF Protocol: Dose Management Condition: Thursday (Week One) Dose/Route: 2 mg Instruction: 1 x 2 mg tablet Condition: Thursday Dose/Route: 2 mg Instruction: 1 x 2 mg tablet Condition: Thursday Dose/Route: 2 mg Instruction: 1 x 2 mg tablet Condition: Thursday Dose/Route: 1 mg Instruction: 1 x 1 mg tablet Condition: Dose/Route: 2 mg Instruction: 1 x 2 mg tablet Condition: Thursday Dose/Route: 2 mg Instruction: 1 x 2 mg tablet Condition: Thursday Dose/Route: 2 mg Instruction: 1 x 2 mg tablet Condition: Thursday (Week Two) Dose/Route: 2 mg Instruction: 1 x 2 mg tablet Condition: Thursday Dose/Route: 2 mg Instruction: 1 x 2 mg tablet Condition: Thursday Dose/Route: 2 mg Instruction: 1 x 2 mg tablet Condition: Thursday Dose/Route: 1 mg Instruction: 1 x 1 mg tablet Condition: Dose/Route: 2 mg Instruction: 1 x 2 mg tablet Condition: Thursday Dose/Route: 2 mg Instruction: 1 x 2 mg tablet Condition: Thursday Dose/Route: 2 mg Instruction: 1 x 2 mg tablet Protocol Text: Adjustment Start Date: 05/07/23 INR Value: 2.3 INR Date: 05/07/23 Recheck Date: 05/21/23 Additional Instructions: INR is in range continue same dosing balance greens and reds in diet, be consistent warfarin [Jantoven] 1 mg tablet 1 mg PO Q48H 90 Days Qty: 45 1RF Protocol: Dose Management Condition: Thursday ( One) Dose/Route: 2 mg Instruction: 1 x 2 mg tablet Condition: Thursday Dose/Route: 2 mg Instruction: 1 x 2 mg tablet Condition: Thursday Dose/Route: 2 mg Instruction: 1 x 2 mg tablet Condition: Thursday Dose/Route: 1 mg Instruction: 1 x 1 mg tablet Condition: Dose/Route: 2 mg Instruction: 1 x 2 mg tablet Condition: Thursday Dose/Route: 2 mg Instruction: 1 x 2 mg tablet Condition: Thursday Dose/Route: 2 mg Instruction: 1 x 2 mg tablet Condition: Thursday (Week Two) Dose/Route: 2 mg Instruction: 1 x 2 mg tablet Condition: Thursday Dose/Route: 2 mg Instruction: 1 x 2 mg tablet Condition: Thursday Dose/Route: 2 mg Instruction: 1 x 2 mg tablet Condition: Thursday Dose/Route: 1 mg Instruction: 1 x 1 mg tablet Condition: Dose/Route: 2 mg Instruction: 1 x 2 mg tablet Condition: Thursday Dose/Route: 2 mg Instruction: 1 x 2 mg tablet Condition: Thursday Dose/Route: 2 mg Instruction: 1 x 2 mg tablet Protocol Text: Adjustment Start Date: 05/07/23 INR Value: 2.3 INR Date: 05/07/23 Recheck Date: 05/21/23 Additional Instructions: INR is in range continue same dosing balance greens and reds in diet, be consistent insulin glargine [Lantus U-100 Insulin] 100 unit/mL solution 20 unit subcut BEDTIME polyethylene glycol 3350 17 gram Powder In Packet 30 g PO DAILY Qty: 30 0RF levothyroxine 25 mcg tablet 25 mcg PO DAILY aspirin 81 mg tablet,delayed release (DR/EC) 81 mg PO DAILY (DME) pen needle, diabetic [BD Cathy 2nd Gen Pen Needle] 32 gauge x 5/32 needle See Rx Instructions subcut DAILY Qty: 50 Rx Instructions: As directed ammonium lactate 12 % lotion topical (DME) lancets [FreeStyle Lancets] 28 gauge misc See Rx Instructions .ROUTE BID Qty: 100 Rx Instructions: As directed Fleet Enema 19-7 gram/118 mL enema 118 ml [place] DAILY PRN ascorbate calcium (vitamin C) 500 mg tablet 500 mg PO DAILY multivitamin [One Daily Multivitamin] Tablet 1 tab PO DAILY oxybutynin chloride 10 mg tablet extended release 24hr 10 mg PO DAILY senna 8.6 mg capsule 8.6 mg PO DAILY bisacodyl 10 mg suppository 10 mg [place] DAILY PRN acetaminophen 325 mg capsule 650 mg PO Q4H PRN insulin glargine [Lantus Solostar U-100 Insulin] 100 unit/mL (3 mL) insulin pen subcut BID Back and Body Pain Reliever 500-32.5 mg tablet PO .Q HS melatonin 5 mg capsule PO Patient Comments: TAKE ONLY NEEDED USUALLY ABOUT 2 NIGHTS PER WEEK
[2023-05-08 03:35] VITALS: BP 150/87; PULSE 98; RESP 16; O2SAT 98
--- NOTE | 2023-05-08 04:49 | PC.NURSE ---
urinary bag noted not to be draining. catheter irrigated once more with stringy clots noted. catheter appears to be draining well upon discharge. out of department via wheelchair.
== END 2023-05-08 04:52 | disposition home or self-care (01) ==
PROVIDERS: Emergency Provider Internal Medicine
DX: R10.2 Pelvic and perineal pain (principal); Z79.899 Other long term (current) drug therapy
CPT/HCPCS: 99283; 99284

== ENCOUNTER 2023-05-08 14:59 | Inpatient (IN) | payer MEDICARE, SELFPAY ==
[2023-05-08] VITALS (9 sets, daily range): BP systolic 111–132; BP diastolic 53–64; PULSE 81–103; RESP 12–20; TEMP 36.6–38.1; O2SAT 88–100; BMI 33.8
--- NOTE | 2023-05-08 17:15 | MHC.EDTECH ---
THIS PCT ASSUMED CARE OF PT AT 1500 ,VITALS SIGN TAKEN ,PT 2ND SETS OF BLOOD CULTURE ,LACTIC ACID AND PTINR DRAWN AND SENT TO LAB ,BLADDER SCAN DONE ,LUPE MEJIA AWARE OF PATIENT BLADDER SCAN RESULT .
--- NOTE | 2023-05-08 17:17 | ED.FEMALEGU ---
HPI - Female Genitourinary General Chief complaint: Urogenital-Female Stated complaint: Low abd pain, catheter issue, nausea per EMS Time Seen by Provider: 05/08/23 16:05 Source: patient Mode of arrival: EMS Limitations: no limitations History of Present Illness HPI Narrative: Patient comes to the emergency room complaining of having issues with her suprapubic catheter. Approximately 13 hours ago, patient was seen here in the emergency room for the same issue. Patient has suprapubic catheter was changed, then discharged home. At this time, patient returning stating that she has not had any output from her Healy catheter since she left the hospital. She has been leaking urine through the stoma. However, this time, patient states that she has blood coming around the Healy catheter from stoma. Patient denies fever or chills. Related Data Home Medications Medication Instructions Recorded Confirmed levothyroxine 25 mcg tablet 25 mcg PO DAILY 09/05/20 05/07/23 aspirin 81 mg tablet,delayed 81 mg PO DAILY 09/11/21 05/07/23 release pen needle, diabetic 32 gauge x #50 ea 12/31/21 05/07/23/32 (BD Cathy 2nd Gen Pen Needle) insulin glargine 100 unit/mL 20 unit subcut BEDTIME 08/15/22 05/07/23 subcutaneous solution (Lantus U-100 Insulin) ammonium lactate 12 % lotion appl topical 09/08/22 05/07/23 acetaminophen 325 mg capsule 650 mg PO Q4H PRN 09/15/22 05/07/23 ascorbate calcium (vitamin C) 500 500 mg PO DAILY 09/15/22 05/07/23 mg tablet bisacodyl 10 mg rectal suppository 10 mg IA DAILY PRN 09/15/22 05/07/23 multivitamin (One Daily 1 tab PO DAILY 09/15/22 05/07/23 Multivitamin tablet) oxybutynin chloride 10 mg 10 mg PO DAILY 09/15/22 05/07/23 tablet,extended release 24 hr sennosides 8.6 mg capsule (senna) 8.6 mg PO DAILY 09/15/22 05/07/23 sodium phosphates 19 gram-7 118 ml IA DAILY PRN 09/15/22 05/07/23 gram/118 mL enema (Fleet Enema) insulin glargine 100 unit/mL (3 unit subcut BID 09/24/22 05/07/23 mL) subcutaneous pen (Lantus Solostar U-100 Insulin) lancets 28 gauge (FreeStyle #100 ea 09/29/22 05/07/23 Lancets) aspirin-caffeine 500 mg-32.5 mg tab PO .Q HS 03/05/23 05/07/23 tablet (Back and Body Pain Reliever) melatonin 5 mg capsule mg PO 03/05/23 05/07/23 Previous Rx's Medication Instructions Recorded polyethylene glycol 3350 17 gram 30 g PO DAILY #30 ea 08/26/22 oral powder packet amlodipine 5 mg tablet 5 mg PO DAILY 90 days #90 tabs 09/22/22 atorvastatin 10 mg tablet 10 mg PO BEDTIME #90 tabs 09/22/22 furosemide 40 mg tablet 40 mg PO BID 90 days #180 tabs 09/22/22 metoprolol succinate 200 mg 200 mg PO DAILY #90 tabs 09/22/22 tablet,extended release 24 hr warfarin 2 mg tablet (Jantoven) 2 mg PO Q48H #90 tabs 12/20/22 warfarin 1 mg tablet (Jantoven) 1 mg PO Q48H 90 days #45 tabs 12/23/22 Allergies Allergy/AdvReac Type Severity Reaction Status Date / Time No Known Allergies Allergy Verified 05/08/23 02:10 [No Known Allergies*] Review of Systems Review of Systems: Constitutional : No Weight loss, No Fever, No Chills, No Night Sweats, No Fatigue, No Malaise ENT/Mouth : No Hearing loss, No Ear Pain, No Nasal Congestion, No Sinus Pain, No Hoarseness, No sore throat, No Rhinorrhea, No Swallowing Difficulty Eyes: No Eye Pain, No Swelling, No Redness, No Foreign Body, No Discharge, No Vision Changes Cardiovascular : No Chest Pain, No SOB, No Dyspnea on Exertion, No Orthopnea, No Edema, No Palpitations Respiratory : No Cough, No Sputum, No Wheezing, No Smoke Exposure, No Dyspnea Gastrointestinal : No Nausea, No Vomiting, No Diarrhea, No Constipation, No abdominal Pain, No Hematochezia, No Melena Genitourinary : Complaining of hematuria, no urinary output in the Healy catheter bag Musculoskeletal : No joint pain, No Myalgias, No Joint Swelling Skin : No Skin Lesions, No rash Neuro : No Weakness, No Numbness, No Paresthesias, No Loss of Consciousness, No Dizziness, No Headache Psych : No Anxiety/Panic, No Depression, No SI/HI/AH/VH, No Social Issues, Heme/Lymph: No Bruising, No Bleeding,No Lymphadenopathy Endocrine : No Polyuria, No Polydipsia, No Temperature Intolerance [facility] Past Medical History Medical History Atrial fibrillation CAD (coronary artery disease) CKD (chronic kidney disease) Congestive heart failure Diabetes Hip pain Hypertension Hypothyroidism Hypotonic neurogenic bladder Leg wound, left Osteoarthritis of right hip PAF (paroxysmal atrial fibrillation) Urinary incontinence Varicose vein of leg Surgical History H/O heart artery stent H/O nasal polypectomy History of tonsillectomy and adenoidectomy History of tubal ligation Hx of cholecystectomy Family History Family History Father Hx of angina pectoris Myocardial infarction Mother Ovarian cancer Stomach cancer Maternal Grandfather Hardening of the arteries of the heart Social History Social History Household Members: Children Household Members Other:: daughter Housing: House Do you presently have visiting nurse or other home services: Yes (meals and wheels, wound care) Alcohol intake: never Patient Tobacco Use Status: Never used Tobacco Second Hand Smoke Exposure: No Advance Directives: Yes Advance Directives on File: Yes Advance Directives Date on File: 08/27/22 service: No Current occupational status: retired Physical Exam Vital Signs: Vital Signs: Last Vital Signs Temp 97.9 F 05/08/23 23:27 Pulse 97 05/08/23 23:27 Resp 18 05/08/23 23:27 BP 132/54 L 05/08/23 23:27 Pulse Ox 92 05/08/23 23:27 O2 Del Method Nasal Cannula 05/08/23 23:14 O2 Flow Rate 97 05/08/23 23:27 Oxygen Flow Rate 2 05/08/23 15:18 BMI result Body Mass Index 33.8 Const: Other: Appearance: Alert. Oriented X3. No acute distress. Eyes: Pupils equal, round and reactive to light. ENT: Pharynx normal. Neck: Normal inspection. Neck supple. No lymph nodes noted. No crepitus CVS: Normal heart rate and rhythm. Pulses normal. Normal S1 and S2 Respiratory: No respiratory distress. Breath sounds normal. No Wheezing. No rales Abdomen: Soft and nontender. No rigidity. No distention. The bladder is not palpable. There is fluid leakage around the Healy catheter from the abdominal stoma, hematuria. Skin: Skin warm and dry. Normal skin color. Normal skin turgor. Extremities: No lower extremity edema. No Lacerations. No Rash Neuro: Oriented X 3. No motor deficit. No sensory deficit. Moving all extremities. No slurred speech. CN 2 through 12 grossly intact Psych: calm, cooperative, normal affect Course Course Course Narrative: -bladder scan shows 44 mL of urine. It is possible that the urine may be leaking around the Healy catheter. -we will go ahead and bladder irrigate. It is possible that there may be a blood clot clogging the Healy catheter Medications Administered Discontinued Medications Generic Name Dose Route Start Last Admin Trade Name Mary PRN Reason Stop Dose Admin Morphine Sulfate 1 mg 05/08/23 17:42 05/08/23 17:50 Morphine Sulfate 2 Mg/Ml Cartridge IVPUSH 05/08/23 17:43 1 mg ONCE ONE Administration Protocol Morphine Sulfate 2 mg 05/08/23 19:01 05/08/23 19:08 Morphine Sulfate 2 Mg/Ml Cartridge IVPUSH 05/08/23 19:02 2 mg ONCE ONE Administration Protocol Morphine Sulfate 2 mg 05/08/23 20:45 05/08/23 20:56 Morphine Sulfate 2 Mg/Ml Cartridge IVPUSH 05/08/23 20:46 2 mg ONCE ONE Administration Protocol Ondansetron HCl 4 mg 05/08/23 19:01 05/08/23 19:08 Ondansetron Hcl 4 Mg/2 Ml Vial IVPUSH 05/08/23 19:02 4 mg ONCE ONE Administration Medical Decision Making Medical Decision Making MDM Narrative: - patient only has 46 mL of urine in the bladder. We attempted manually rinsing the bladder via the Healy catheter that was inserted this morning. However, patient could not tolerate the pain. We stopped, medicate the patient with morphine. Tried rinsing the bladder again. However, still painful. patient given more pain medication. Manual rinsing attempt was stopped. This time we will try CBI. Patient's Healy catheter changed to a 3 way catheter. Inserted very carefully, patient very sensitive. CBI was not started, CT scan of the abdomen pelvis was ordered. - 23:32: I discussed the CT scan with our radiologist on-call, the Healy catheter does not enter the bladder, goes into the left rectus muscle posteriorly. - I discussed the CT scan findings with Dr. Timothy Gonzalez, recommendations: Insert done regular Healy catheter through the urethra, cover the abdominal stoma. - patient's blood pressure has been stable, no episodes of hypotension, not tachycardic no fever. - I discussed the patient with Dr. Porter, sepsis not suspected at this time, 23:55 - urology will follow up in the morning Differential Diagnosis Differential Diagnoses: The differential diagnosis associated with the presentation includes ( hematuria, Healy catheter blockage with blood clot) Admission/Observation Consideration of admission/observation: Escalation of care including admission/observation considered Consult Healthcare Provider Management of the patient was discussed with: Hospitalist and [employer] Lab Data MDM Lab Attestation statement: I reviewed the patient's lab results. 05/08/23 15:45 05/08/23 15:45 Labs: Lab Results 05/08/23 05/08/23 05/08/23 Range/Units 15:45 15:45 17:11 WBC 21.1 H (4.8-10.8) X10*3/uL RBC 4.50 (4.20-5.50) X10*6/uL Hgb 12.8 (12.0-16.0) g/dl Hct 38.4 (37.0-47.0) % MCV 85.3 (80.0-98.0) fL MCH 28.4 (27.0-33.0) pg MCHC 33.3 (31.0-35.0) g/dl RDW 16.0 (11.0-16.0) % Plt Count 213 (160-400) X10*3/uL MPV 9.2 L (9.4-12.3) fL Immature Gran % (Auto) 0.6 H (0.0-0.4) % Neut % (Auto) 83.9 H (45-73) % Lymph % (Auto) 6.5 L (20-40) % [place] % (Auto) 8.9 (2-11) % Eos % (Auto) 0.0 (0-4) % Baso % (Auto) 0.1 (0-2) % Lymph # (Auto) 1.4 (1.2-4.9) X10*3/uL [place] # (Auto) 1.9 H (0.1-1.2) X10*3/uL Eos # (Auto) 0.0 (0.0-0.4) X10*3/uL Baso # (Auto) 0.0 (0.0-0.2) X10*3/uL Abs Immat Gran (auto) 0.12 H (0.00-0.03) X10*3/uL Absolute Neuts (auto) 17.7 H (2.0-8.3) x10*3/uL Absolute Nucleated RBC 0.000 (0.0-0.012) X10*3/uL Nucleated RBC % (auto) 0.0 (0.0-0.2) /100WBC Smear Tech's Comments VERIFIED PT 23.4 H (10.0-13.1) SEC INR 2.0 H D (0.9-1.1) Sodium 134 L (135-145) mmol/L Potassium 4.0 (3.3-5.1) mmol/L Chloride 101 (96-108) mmol/L Carbon Dioxide 21 L (22-29) mmol/L Anion Gap 16 (12-20) BUN 41 H (9-16) mg/dL Creatinine 1.72 H (0.5-1.4) mg/dL Estim Creat Clear Calc 28.2 Estimated GFR 28 Random Glucose 228 H (60-115) mg/dL Lactic Acid (0.5-2.0) mmol/L Lactic Acid F/U @ 2Hr (0.5-2.0) mmol/L Calcium 8.9 D (8.4-10.2) mg/dL Total Bilirubin 1.4 H (0.0-1.0) mg/dL AST 27 (5-31) U/L ALT 17 (0-31) U/L Alkaline Phosphatase 104 (39-117) U/L Total Protein 7.6 (6.5-8.0) g/dL Albumin 3.4 L (3.5-5.0) g/dL 05/08/23 05/08/23 Range/Units 17:17 20:17 WBC (4.8-10.8) X10*3/uL RBC (4.20-5.50) X10*6/uL Hgb (12.0-16.0) g/dl Hct (37.0-47.0) % MCV (80.0-98.0) fL MCH (27.0-33.0) pg MCHC (31.0-35.0) g/dl RDW (11.0-16.0) % Plt Count (160-400) X10*3/uL MPV (9.4-12.3) fL Immature Gran % (Auto) (0.0-0.4) % Neut % (Auto) (45-73) % Lymph % (Auto) (20-40) % [place] % (Auto) (2-11) % Eos % (Auto) (0-4) % Baso % (Auto) (0-2) % Lymph # (Auto) (1.2-4.9) X10*3/uL [place] # (Auto) (0.1-1.2) X10*3/uL Eos # (Auto) (0.0-0.4) X10*3/uL Baso # (Auto) (0.0-0.2) X10*3/uL Abs Immat Gran (auto) (0.00-0.03) X10*3/uL Absolute Neuts (auto) (2.0-8.3) x10*3/uL Absolute Nucleated RBC (0.0-0.012) X10*3/uL Nucleated RBC % (auto) (0.0-0.2) /100WBC Smear Tech's Comments PT (10.0-13.1) SEC INR (0.9-1.1) Sodium (135-145) mmol/L Potassium (3.3-5.1) mmol/L Chloride (96-108) mmol/L Carbon Dioxide (22-29) mmol/L Anion Gap (12-20) BUN (9-16) mg/dL Creatinine (0.5-1.4) mg/dL Estim Creat Clear Calc Estimated GFR Random Glucose (60-115) mg/dL Lactic Acid 2.2 H* (0.5-2.0) mmol/L Lactic Acid F/U @ 2Hr 1.7 (0.5-2.0) mmol/L Calcium (8.4-10.2) mg/dL Total Bilirubin (0.0-1.0) mg/dL AST (5-31) U/L ALT (0-31) U/L Alkaline Phosphatase (39-117) U/L Total Protein (6.5-8.0) g/dL Albumin (3.5-5.0) g/dL Radiology Impression Discussion of test interpretation with radiology: I have reviewed the radiologist's reading. Radiologist Impression: FINDINGS: There is a catheter extending through the anterior abdominal wall at the midline lower pelvis. The catheter passes into the deep medial portion of the left anterior abdominal wall rectus muscle with a small volume of fluid and air around the catheter in the muscle. Catheter tip extends cephalad above the upper field of view of this exam. Catheter does not enter the bladder. Edema and induration around the insertion site of the catheter in the subcutaneous tissues extending into the suprapubic region. There is a track between the anterior abdominal wall and the anterior wall of the bladder containing fluid and air. There is air within the bladder and in the bladder wall. Diverticula of the sigmoid and descending colon without evidence of diverticulitis. No acute change of the bowel. Vascular calcifications of aorta and iliac arteries. No aneurysm. Uterus is anteverted and lobular in contour consistent with fibroids. Calcifications in the myometrium. Small volume of air present within the endometrial cavity of the uterus. Marked degenerative change of hip joints, symphysis pubis and lower lumbar spine CT/CT pelvis wo IV con IMPRESSION: 1.? Catheter extending through the anterior abdominal wall at the midline of the lower pelvis. Catheter tip extends cephalad in the left rectus muscle posteriorly. Catheter does not enter the bladder. 2.? Air within the endometrial cavity of the uterus. Fibroid uterus. 3.? Diverticulosis of colon. ? This critical result was discussed with? Lily Cottrell MD on 05/08/2023, 11:15 PM and it was ascertained that the content and urgency of the report was understood at the time of direct communication. ? Independent Historian Clinical information obtained from an independent historian. History obtained from or confirmed by: Other ( patient's daughter) Critical Care Time Critical Care Time Critical Care Time: Yes Total Critical Care Time: 60 Attestation: I have personally provided critical care time. Time includes review of lab data, radiology results, discussion with consultants, and monitoring for potential decompensation. Intervention performed as documented. Discharge Plan Discharge Clinical Impression: Complication of catheter Patient Disposition: Admitted As Inpatient Prescriptions: No Action amlodipine 5 mg tablet 5 mg PO DAILY 90 Days Qty: 90 3RF atorvastatin 10 mg tablet 10 mg PO BEDTIME Qty: 90 3RF metoprolol succinate 200 mg tablet extended release 24 hr 200 mg PO DAILY Qty: 90 3RF furosemide 40 mg tablet 40 mg PO BID 90 Days Qty: 180 3RF Protocol: Hold for SBP< HOLD for SBP < : 90 Rx Instructions: Discharged home on this dose from [facility][1] per Linda Fraga NP. warfarin [Novtoven] 2 mg tablet 2 mg PO Q48H Qty: 90 0RF Protocol: Dose Management Condition: Thursday (Week One) Dose/Route: 2 mg Instruction: 1 x 2 mg tablet Condition: Thursday Dose/Route: 2 mg Instruction: 1 x 2 mg tablet Condition: Thursday Dose/Route: 2 mg Instruction: 1 x 2 mg tablet Condition: Thursday Dose/Route: 1 mg Instruction: 1 x 1 mg tablet Condition: Dose/Route: 2 mg Instruction: 1 x 2 mg tablet Condition: Thursday Dose/Route: 2 mg Instruction: 1 x 2 mg tablet Condition: Thursday Dose/Route: 2 mg Instruction: 1 x 2 mg tablet Condition: Thursday (Week Two) Dose/Route: 2 mg Instruction: 1 x 2 mg tablet Condition: Thursday Dose/Route: 2 mg Instruction: 1 x 2 mg tablet Condition: Thursday Dose/Route: 2 mg Instruction: 1 x 2 mg tablet Condition: Thursday Dose/Route: 1 mg Instruction: 1 x 1 mg tablet Condition: Dose/Route: 2 mg Instruction: 1 x 2 mg tablet Condition: Thursday Dose/Route: 2 mg Instruction: 1 x 2 mg tablet Condition: Thursday Dose/Route: 2 mg Instruction: 1 x 2 mg tablet Protocol Text: Adjustment Start Date: 05/07/23 INR Value: 2.3 INR Date: 05/07/23 Recheck Date: 05/21/23 Additional Instructions: INR is in range continue same dosing balance greens and reds in diet, be consistent warfarin [Jantoven] 1 mg tablet 1 mg PO Q48H 90 Days Qty: 45 1RF Protocol: Dose Management Condition: Thursday (Week One) Dose/Route: 2 mg Instruction: 1 x 2 mg tablet Condition: Thursday Dose/Route: 2 mg Instruction: 1 x 2 mg tablet Condition: Thursday Dose/Route: 2 mg Instruction: 1 x 2 mg tablet Condition: Thursday Dose/Route: 1 mg Instruction: 1 x 1 mg tablet Condition: Dose/Route: 2 mg Instruction: 1 x 2 mg tablet Condition: Thursday Dose/Route: 2 mg Instruction: 1 x 2 mg tablet Condition: Thursday Dose/Route: 2 mg Instruction: 1 x 2 mg tablet Condition: Thursday (Week Two) Dose/Route: 2 mg Instruction: 1 x 2 mg tablet Condition: Thursday Dose/Route: 2 mg Instruction: 1 x 2 mg tablet Condition: Thursday Dose/Route: 2 mg Instruction: 1 x 2 mg tablet Condition: Thursday Dose/Route: 1 mg Instruction: 1 x 1 mg tablet Condition: Dose/Route: 2 mg Instruction: 1 x 2 mg tablet Condition: Thursday Dose/Route: 2 mg Instruction: 1 x 2 mg tablet Condition: Thursday Dose/Route: 2 mg Instruction: 1 x 2 mg tablet Protocol Text: Adjustment Start Date: 05/07/23 INR Value: 2.3 INR Date: 05/07/23 Recheck Date: 05/21/23 Additional Instructions: INR is in range continue same dosing balance greens and reds in diet, be consistent insulin glargine [Lantus U-100 Insulin] 100 unit/mL solution 20 unit subcut BEDTIME polyethylene glycol 3350 17 gram Powder In Packet 30 g PO DAILY Qty: 30 0RF levothyroxine 25 mcg tablet 25 mcg PO DAILY aspirin 81 mg tablet,delayed release (DR/EC) 81 mg PO DAILY (DME) pen needle, diabetic [BD Cathy 2nd Gen Pen Needle] 32 gauge x 5/ needle See Rx Instructions subcut DAILY Qty: 50 Rx Instructions: As directed ammonium lactate 12 % lotion topical (DME) lancets [FreeStyle Lancets] 28 gauge misc See Rx Instructions .ROUTE BID Qty: 100 Rx Instructions: As directed Fleet Enema 19-7 gram/118 mL enema 118 ml IA DAILY PRN ascorbate calcium (vitamin C) 500 mg tablet 500 mg PO DAILY multivitamin [One Daily Multivitamin] Tablet 1 tab PO DAILY oxybutynin chloride 10 mg tablet extended release 24hr 10 mg PO DAILY senna 8.6 mg capsule 8.6 mg PO DAILY bisacodyl 10 mg suppository 10 mg IA DAILY PRN acetaminophen 325 mg capsule 650 mg PO Q4H PRN insulin glargine [Lantus Solostar U-100 Insulin] 100 unit/mL (3 mL) insulin pen subcut BID Back and Body Pain Reliever 500-32.5 mg tablet PO .Q HS melatonin 5 mg capsule PO Patient Comments: TAKE ONLY NEEDED USUALLY ABOUT 2 NIGHTS PER WEEK
[2023-05-08 17:28] LABS: Alanine Aminotransferase 17 U/L (0-31); Albumin Level 3.4 g/dL (3.5-5.0); Alkaline Phosphatase 104 U/L (39-117); Anion Gap 16 (12-20); Aspartate Amino Transferase 27 U/L (5-31); Bilirubin Total 1.4 mg/dL (0.0-1.0); Blood Urea Nitrogen 41 mg/dL (9-16); Calcium 8.9 mg/dL (8.4-10.2); Carbon Dioxide 21 mmol/L (22-29); Chloride 101 mmol/L (96-108); Creatinine Clr Calc Pharmacy 28.2; Estimated Glomerular Filt Rate 28; Glucose Random 228 mg/dL (60-115); Sodium 134 mmol/L (135-145); Total Protein 7.6 g/dL (6.5-8.0)
--- NOTE | 2023-05-08 18:43 | MHC.EDTECH ---
PATIENT WAS INCONIENT OF URINE ,CARE GIVEN BEDDING STANLEY ,WARM BLANKET GIVEN .
--- NOTE | 2023-05-08 18:43 | PC.NURSE ---
provider at bedside to attempt manual irrigation, plan for cbi at this time.
--- NOTE | 2023-05-08 19:26 | PC.NURSE ---
assumed care if pt aox4 no apparent distress pain 07/12 daughter at bedside
--- NOTE | 2023-05-08 20:20 | MHC.EDTECH ---
PATIENT 2000 ROUNDING DONE ,VITALS SIGN TAKEN AND LACTIC ACID DRAWN AND SENT TO LAB .
--- NOTE | 2023-05-08 22:00 | PC.NURSE ---
CBI initiated 35mL balloon inflation per provider (suprapubic)
--- NOTE | 2023-05-08 22:12 | PC.NURSE ---
unable to irrigate no output pt sent to CT for placement CBI stopped
--- NOTE | 2023-05-08 23:14 | MHC.EDTECH ---
Brought therese mayorga and perry carr for patient.
--- NOTE | 2023-05-08 23:42 | PC.NURSE ---
suprapubic cath (18fr) removed per provider instructions per provider 18fr martinez via urethra to be placed
--- NOTE | 2023-05-08 23:52 | PM.IMHP ---
History of Present Illness Date of Service: 05/08/23 Chief Complaint: Catheter complication This is a 82-year-old with past medical history of permanent atrial fibrillation on Coumadin, right hip osteoarthritis, chronic congestive heart failure with preserved ejection fraction, CKD stage 3, hypothyroidism, insulin-dependent diabetes mellitus, essential hypertension, neurogenic bladder presents to emergency department for complication of suprapubic catheter. Patient presented to the ER about 1 day prior to presentation for similar issue. Suprapubic catheter was changed and patient was discharged home by ER physician. Patient returns stating that there was no output from suprapubic catheter and urine was leaking through the stoma. Also noticed blood around the catheter. Tried to irrigate the catheter on the day of presentation but patient was having severe pain. Imaging in the ER revealed the catheter did not enter the bladder and instead goes into the left rectus muscle posteriorly. Urology was consulted who requested admission. Patient denies fever, chills, chest discomfort, palpitations, shortness of breath, changes in bowel habits. Review of Systems Constitutional: Constitutional: Reports no additional constitutional complaints Cardiovascular: Cardiovascular: Reports no additional cardiovascular complaints Respiratory: Respiratory: Reports no additional respiratory complaints Gastrointestinal: Gastrointestinal: Reports no additional gastrointestinal complaints [facility] Medical History Atrial fibrillation CAD (coronary artery disease) CKD (chronic kidney disease) Congestive heart failure Diabetes Hip pain Hypertension Hypothyroidism Hypotonic neurogenic bladder Leg wound, left Osteoarthritis of right hip PAF (paroxysmal atrial fibrillation) Urinary incontinence Varicose vein of leg Family History Father Hx of angina pectoris Myocardial infarction Mother Ovarian cancer Stomach cancer Maternal Grandfather Hardening of the arteries of the heart Surgical History H/O heart artery stent H/O nasal polypectomy History of tonsillectomy and adenoidectomy History of tubal ligation Hx of cholecystectomy Social History Household Members: Children Household Members Other:: daughter Housing: House Do you presently have visiting nurse or other home services: Yes (meals and wheels, wound care) Alcohol intake: never Patient Tobacco Use Status: Never used Tobacco Second Hand Smoke Exposure: No Advance Directives: Yes Advance Directives on File: Yes Advance Directives Date on File: 08/27/22 Nutrition Risks: No Nutritional Risk service: No Current occupational status: retired Meds Allergies Allergy/AdvReac Type Severity Reaction Status Date / Time No Known Allergies Allergy Verified 05/08/23 02:10 [No Known Allergies*] Active Medications: Current Medications Acetaminophen (Acetaminophen 325 Mg Tablet) 650 mg PO Q6H PRN PRN Reason: Pain, Mild (Pain Scale 1-3) Ceftriaxone Sodium 1 gm/ (Sodium Chloride) 50 mls @ 100 mls/hr IV ONCE ONE Stop: 05/08/23 23:58 Cefepime HCl 2 gm/ Sodium (Chloride) 50 mls @ 100 mls/hr IV Q24H SUN Melatonin (Melatonin 3 Mg Tablet) 6 mg PO BEDTIME PRN PRN Reason: Insomnia Morphine Sulfate (Morphine Sulfate 4 Mg/Ml Cartridge) 4 mg IVPUSH Q4H PRN; Protocol PRN Reason: Pain, Severe (Pain Scale 7-10) Ondansetron HCl (Ondansetron Hcl 4 Mg/2 Ml Vial) 4 mg IVPUSH Q8H PRN PRN Reason: Nausea and Vomiting Pharmacy Consult (Consult Rx Perform Med Rec) 1 each MISCELLANE ONCE PRN PRN Reason: Consult order Sodium Chloride (0.9 % Sodium Chloride Flush 3 Ml Syringe) 3 ml IVFLUSH QSHIFT [facility] Home Medications Medication Instructions Recorded Confirmed Last Taken Type levothyroxine 25 mcg tablet 25 mcg PO DAILY 09/05/20 05/07/23 Unknown History aspirin 81 mg tablet,delayed 81 mg PO DAILY 09/11/21 05/07/23 Unknown History release pen needle, diabetic 32 gauge x #50 ea 12/31/21 05/07/23 Unknown History (BD Cathy 2nd Gen Pen Needle) insulin glargine 100 unit/mL 20 unit subcut BEDTIME 08/15/22 05/07/23 Unknown History subcutaneous solution (Lantus U-100 Insulin) ammonium lactate 12 % lotion appl topical 09/08/22 05/07/23 Unknown History acetaminophen 325 mg capsule 650 mg PO Q4H PRN 09/15/22 05/07/23 Unknown History ascorbate calcium (vitamin C) 500 500 mg PO DAILY 09/15/22 05/07/23 Unknown History mg tablet bisacodyl 10 mg rectal suppository 10 mg ND DAILY PRN 09/15/22 05/07/23 Unknown History multivitamin (One Daily 1 tab PO DAILY 09/15/22 05/07/23 Unknown History Multivitamin tablet) oxybutynin chloride 10 mg 10 mg PO DAILY 09/15/22 05/07/23 Unknown History tablet,extended release 24 hr sennosides 8.6 mg capsule (senna) 8.6 mg PO DAILY 09/15/22 05/07/23 Unknown History sodium phosphates 19 gram-7 118 ml ND DAILY PRN 09/15/22 05/07/23 Unknown History gram/118 mL enema (Fleet Enema) insulin glargine 100 unit/mL (3 unit subcut BID 09/24/22 05/07/23 Unknown History mL) subcutaneous pen (Lantus Solostar U-100 Insulin) lancets 28 gauge (FreeStyle #100 ea 09/29/22 05/07/23 Unknown History Lancets) aspirin-caffeine 500 mg-32.5 mg tab PO .Q HS 03/05/23 05/07/23 Unknown History tablet (Back and Body Pain Reliever) melatonin 5 mg capsule mg PO 03/05/23 05/07/23 Unknown History Physical Exam Vital Signs and Narrative: Vital Signs: Last Vital Signs Temp 97.9 F 05/08/23 23:27 Pulse 97 05/08/23 23:27 Resp 18 05/08/23 23:27 BP 132/54 L 05/08/23 23:27 Pulse Ox 92 05/08/23 23:27 O2 Del Method Nasal Cannula 05/08/23 23:14 O2 Flow Rate 97 05/08/23 23:27 Oxygen Flow Rate 2 05/08/23 15:18 BMI result Body Mass Index 33.8 Elderly female lying in bed in no distress Neck supple, no JVD Regular rate and rhythm, S1-S2 heard Regular breath sounds bilaterally, no wheezing or crackles appreciated Abdomen soft nontender, no guarding, no rigidity ; dressing seen around suprapubic site, Healy catheter present Patient is awake, alert and oriented to self, place, time and person ; no focal motor deficit Psych: Normal mood No pedal edema Results Labs 05/08/23 15:45 05/08/23 15:45 Labs: Laboratory Results - last 24 hr 05/08/23 05/08/23 05/08/23 15:45 15:45 17:11 MCV 85.3 MCH 28.4 MCHC 33.3 RDW 16.0 Plt Count 213 MPV 9.2 L Immature Gran % (Auto) 0.6 H Neut % (Auto) 83.9 H Lymph % (Auto) 6.5 L [place] % (Auto) 8.9 Eos % (Auto) 0.0 Baso % (Auto) 0.1 Lymph # (Auto) 1.4 [place] # (Auto) 1.9 H Eos # (Auto) 0.0 Baso # (Auto) 0.0 Abs Immat Gran (auto) 0.12 H Absolute Neuts (auto) 17.7 H Absolute Nucleated RBC 0.000 Nucleated RBC % (auto) 0.0 Smear Tech's Comments VERIFIED PT 23.4 H INR 2.0 H D Anion Gap 16 Estim Creat Clear Calc 28.2 Estimated GFR 28 Random Glucose 228 H Lactic Acid Lactic Acid F/U @ 2Hr Calcium 8.9 D Total Bilirubin 1.4 H AST 27 ALT 17 Alkaline Phosphatase 104 Total Protein 7.6 Albumin 3.4 L 05/08/23 05/08/23 17:17 20:17 MCV MCH MCHC RDW Plt Count MPV Immature Gran % (Auto) Neut % (Auto) Lymph % (Auto) [place] % (Auto) Eos % (Auto) Baso % (Auto) Lymph # (Auto) [place] # (Auto) Eos # (Auto) Baso # (Auto) Abs Immat Gran (auto) Absolute Neuts (auto) Absolute Nucleated RBC Nucleated RBC % (auto) Smear Tech's Comments PT INR Anion Gap Estim Creat Clear Calc Estimated GFR Random Glucose Lactic Acid 2.2 H* Lactic Acid F/U @ 2Hr 1.7 Calcium Total Bilirubin AST ALT Alkaline Phosphatase Total Protein Albumin Imaging Radiologist's Impressions: Impressions Chest X-Ray 05/08/23 18:04 IMPRESSION: Central vascular prominence without overt pulmonary edema. No focal consolidation. Pelvis CT 05/08/23 22:20 IMPRESSION: 1. Catheter extending through the anterior abdominal wall at the midline of the lower pelvis. Catheter tip extends cephalad in the left rectus muscle posteriorly. Catheter does not enter the bladder. 2. Air within the endometrial cavity of the uterus. Fibroid uterus. 3. Diverticulosis of colon. This critical result was discussed with Lily Cottrell MD on 05/08/2023, 11:15 PM and it was ascertained that the content and urgency of the report was understood at the time of direct communication. Assessment and Plan (1) Complication of catheter: Status: Acute Plan This is a 82-year-old with past medical history of permanent atrial fibrillation on Coumadin, right hip osteoarthritis, chronic congestive heart failure with preserved ejection fraction, CKD stage 3, hypothyroidism, insulin-dependent diabetes mellitus, essential hypertension, neurogenic bladder presents to emergency department for complication of suprapubic catheter. #. Complication of catheter: Imaging with catheter outside bladder. Urology consulted from the ER, appreciate assistance. #.? Sepsis due to acute UTI. Resuscitated with IV crystalloids. Blood culture and urine culture obtained. Initiating empiric IV antibiotics. Lactic acid obtained. #.? Acute lactic acidosis, mild. Due to sepsis. Resolved with IV crystalloids #.? Permanent atrial fibrillation -on Coumadin.? Goal INR 2-3.? Rate controlled #.? Chronic congestive heart failure with preserved ejection fraction -currently compensated. #.? Insulin-dependent type 2 diabetes mellitus with hyperglycemia -initiating Accu-Cheks with sliding scale insulin.? Reduce home basal regimen while in the hospital #.? Hypothyroidism -on levothyroxine #.? Essential hypertension -hold antihypertensives in the setting of sepsis. Resume as appropriate #.? Chronic kidney disease stage 3 -creatinine at baseline.? Monitor Med rec pending DVT prophylaxis: On Coumadin Diet:? Cardiac diet Admit as inpatient and will require two night minimum hospital stay for IV antibiotics Time Spent With Patient Time: Total time managing care of this patient today ____ minutes. Quality Stroke Does the patient have a stroke diagnosis?: No VTE Prior VTE?: No VTE Risk Level:: Medical - moderate - high VTE Device Contraindication: Treatment Not Indicated VTE Drug Contraindication: N/A - Med Ordered
[2023-05-09] VITALS (7 sets, daily range): BP systolic 103–135; BP diastolic 54–63; PULSE 89–105; RESP 14–20; TEMP 36.1–36.9; O2SAT 88–95; BMI 34.2
--- NOTE | 2023-05-09 01:21 | MHC.EDTECH ---
THIS PCT PEANUT SORTER MD DUFFY DURING INSERTION OF PATIENT RIVAS CATHETER ,OUT PUT WAS 300ML YELLOW IN COLOR ,URINE SAMPLE COLLECTED AND SENT TO LAB ,PATIENT WAS SOILED CARE GIVEN LINEN CHANGE ,BLOOD SUGAR CHECK RN BAKARI IS AWARE OF RESULT OF 163 ,WARM BLANKET GIVEN ,PATIENT ASKED FOR SOME ICE WATER ,AND IT WAS GIVEN ,PATIENT DRANK 240 ML OF WATER .
[2023-05-09] MEDS: Insulin Glargine,Hum.rec.anlog 100 UNIT/ML 10 ML VIAL 15 UNIT SUBCUT (01:30)
--- NOTE | 2023-05-09 02:02 | MHC.EDTECH ---
PATIENT ASKED FOR SOME TOAST THIS PCT GAVE PATIENT TOAST AND TEA FOR SNACK ,PATIENT IS FEELING MUCH BETTER ,FAMILY STILL AT BEDSIDE .
--- NOTE | 2023-05-09 04:26 | PC.NURSE ---
called to give report; unit to call back when ready for report
--- NOTE | 2023-05-09 04:52 | PC.NURSE ---
Gave report to Molly RN; pt to rm [phone]
[2023-05-09] MEDS: Morphine Sulfate 4 MG/ML CARTRIDGE IVPUSH ×3 (08:21→22:11)
--- NOTE | 2023-05-09 08:46 | PHA.MEDREC ---
Pharmacy Consult ? Medication Reconciliation Pharmacy has completed the medication reconciliation. spoke with patient's family. they had an at-home list and was able to confirm insulin and warfarin dosing. Patient also receives ciprofloxacin 500mg the day before, the day of, and the day after catheter change.
--- NOTE | 2023-05-09 11:49 | P.CNUR_ITS ---
History of Present Illness Consult details Consult date: 05/09/23 Narrative: 82-year-old with past medical history of neurogenic bladder s/p SP tube, atrial fibrillation on Coumadin, right hip osteoarthritis, chronic congestive heart failure with preserved ejection fraction, CKD stage 3, hypothyroidism, insulin- dependent diabetes mellitus, essential hypertension, presents to emergency department for complication of suprapubic catheter.? Patient presented to the ER about 1 day prior to presentation for similar issue.? Suprapubic catheter was changed and patient was discharged home by ER physician.? Patient returns stating that there was no output from suprapubic catheter and urine was leaking through the stoma.? Also noticed blood around the catheter.? Tried to irrigate the catheter on the day of presentation but patient was having severe pain.? Imaging in the ER revealed the catheter did not enter the bladder and instead goes into the left rectus muscle posteriorly.? Urology was consulted and advised to remove cath from suprapubic space and place martinez Pt evaluated today. On exam- SP tube site is closed. martinez draining clear urine. Recommend discharge with martinez and continue antibiotic, Out patient fu with Dr Sharma to have Cystotomy and SP tube done as outpatient. [facility] Past Medical History Medical History (Updated 05/11/23 @ 15:10 by Sari Marquez MD) Atrial fibrillation CAD (coronary artery disease) CKD (chronic kidney disease) Congestive heart failure Diabetes Hip pain Hypertension Hypothyroidism Hypotonic neurogenic bladder Leg wound, left MRSA infection Osteoarthritis of right hip PAF (paroxysmal atrial fibrillation) Urinary incontinence Varicose vein of leg Family History Family History Father Hx of angina pectoris Myocardial infarction Mother Ovarian cancer Stomach cancer Maternal Grandfather Hardening of the arteries of the heart Surgical History Surgical History H/O heart artery stent H/O nasal polypectomy History of tonsillectomy and adenoidectomy History of tubal ligation Hx of cholecystectomy Social History Social History Household Members: Children Household Members Other:: daughter Housing: House Do you presently have visiting nurse or other home services: Yes Alcohol intake: never Patient Tobacco Use Status: Never used Tobacco Second Hand Smoke Exposure: No Use of substances other than those prescribed or required for medical reasons: No Currently Displaying Signs/Symptoms of Drug Intoxication Withdrawal: No Have you been hit, kicked, punched, or otherwise hurt by someone within the past year? If so, by whom?: No Do you feel safe in your current relationship?: No Current Relationship Is there a partner from a previous relationship who is making you feel unsafe now?: No Are you made to feel afraid or neglected: No Advance Directives: Yes Advance Directives on File: Yes Advance Directives Date on File: 08/27/22 Do you have thoughts of harming others: None Do you have a plan to hurt others: No Plan Recently lost weight without trying: Unsure Eating poorly because of decreased appetite: No Nutrition Risks: No Nutritional Risk Patient : No Poor oral hygiene: No service: No Current occupational status: [employer] Allergies Allergy/AdvReac Type Severity Reaction Status Date / Time No Known Allergies Allergy Verified 05/08/23 02:10 [No Known Allergies*] Active Medications: Current Medications Acetaminophen (Acetaminophen 325 Mg Tablet) 650 mg PO Q6H PRN PRN Reason: Pain, Mild (Pain Scale 1-3) Dextrose (Dextrose 50 % 25 Gm/50 Ml Syringe) 25 gm IVPUSH Q15M PRN; Protocol PRN Reason: per Hypoglycemia Standing Ord. Glucose (Glucose Gel 15 Gm Gel..Gram.) 15 gm PO Q15M PRN; Protocol PRN Reason: per Hypoglycemia Standing Ord. Ceftriaxone Sodium 2 gm/ (Sodium Chloride) 50 mls @ 100 mls/hr IV Q24H [facility] Insulin Glargine (Insulin Glargine,Hum.Rec.Anlog 100 Unit/Ml 10 Ml Vial) 15 unit SUBCUT BEDTIME [facility] Last Admin: 05/09/23 01:30 Dose: 15 unit Insulin Human Lispro (Insulin Lispro 100 Unit/Ml 3 Ml Vial) 0 unit SUBCUT QIDACHS [facility]; Protocol Last Admin: 05/09/23 08:05 Dose: Not Given Melatonin (Melatonin 3 Mg Tablet) 6 mg PO BEDTIME PRN PRN Reason: Insomnia Morphine Sulfate (Morphine Sulfate 4 Mg/Ml Cartridge) 4 mg IVPUSH Q4H PRN; Protocol PRN Reason: Pain, Severe (Pain Scale 7-10) Last Admin: 05/09/23 08:21 Dose: 4 mg Ondansetron HCl (Ondansetron Hcl 4 Mg/2 Ml Vial) 4 mg IVPUSH Q8H PRN PRN Reason: Nausea and Vomiting Pharmacy Consult (Consult Rx Perform Med Rec) 1 each MISCELLANE ONCE PRN PRN Reason: Consult order Sodium Chloride (0.9 % Sodium Chloride Flush 3 Ml Syringe) 3 ml IVFLUSH QSHIFT [facility] Last Admin: 05/09/23 08:22 Dose: 3 ml Home Medications Medication Instructions Recorded Confirmed Last Taken Type levothyroxine 25 mcg tablet 25 mcg PO DAILY 09/05/20 05/09/23 Unknown History aspirin 81 mg tablet,delayed 81 mg PO DAILY 09/11/21 05/09/23 Unknown History release pen needle, diabetic 32 gauge x #50 ea 12/31/21 05/07/23 Unknown History (BD Cathy 2nd Gen Pen Needle) insulin glargine 100 unit/mL 35 unit subcut BEDTIME 08/15/22 05/09/23 Unknown History subcutaneous solution (Lantus U-100 Insulin) multivitamin (One Daily 1 tab PO DAILY 09/15/22 05/09/23 Unknown History Multivitamin tablet) lancets 28 gauge (FreeStyle #100 ea 09/29/22 05/07/23 Unknown History Lancets) melatonin 5 mg tablet 5 mg PO BEDTIME PRN Sleep 05/09/23 05/09/23 Unknown Histo ry vitamins A,C,Y-vwha-plncxs 2,148 1 tab PO BID 05/09/23 05/09/23 Unknown History mcg-113 mg-45 mg-17.4 mg tablet (PreserVision AREDS) warfarin 1 mg tablet (Jantoven) 1 mg PO SUMOTUTHFRSA 05/09/23 05/09/23 Unknown History warfarin 2 mg tablet (Jantoven) 2 mg PO WE 05/09/23 05/09/23 Unknown History Physical Exam Vital Signs: Vital Signs: Last Vital Signs Temp 97.0 F 05/09/23 11:09 Pulse 89 05/09/23 11:09 Resp 20 05/09/23 11:09 BP 135/63 05/09/23 11:09 Pulse Ox 92 05/09/23 11:09 O2 Del Method Room Air 05/09/23 11:09 O2 Flow Rate 2 05/09/23 01:06 Oxygen Flow Rate 2 05/08/23 15:18 BMI result Body Mass Index 34.2 Const: General: cooperative, healthy appearing and no acute distress Orientation/consciousness: patient oriented x3 HEENT: Head: Yes normal to inspection, Yes normocephalic and Yes atraumatic Eyes: Conjunctivae: conjunctivae normal Neck: Neck: Yes normal visual inspection and Yes trachea midline Chest: Chest palpation & inspection: normal inspection of the chest Resp: Effort & Inspection: normal respiratory effort Cardio: Rate: regular rate GI: Inspection: Yes normal to inspection Palpation (GI): Soft to palpation : Other: Cystotomy site, unable to pass catheter into bladder, no significant drainage, skin no signs of infection Skin: General skin exam: no rashes or lesions noted Neuro: General: patient oriented x3 Psych: Appearance: grossly normal Results Labs 05/09/23 06:26 05/09/23 06:26 Labs: Abnormal lab results 05/08/23 05/08/23 05/08/23 Range/Units 15:45 15:45 17:11 WBC 21.1 H (4.8-10.8) X10*3/uL RDW (11.0-16.0) % MPV 9.2 L (9.4-12.3) fL Immature Gran % (Auto) 0.6 H (0.0-0.4) % Neut % (Auto) 83.9 H (45-73) % Lymph % (Auto) 6.5 L (20-40) % [place] # (Auto) 1.9 H (0.1-1.2) X10*3/uL Abs Immat Gran (auto) 0.12 H (0.00-0.03) X10*3/uL Absolute Neuts (auto) 17.7 H (2.0-8.3) x10*3/uL PT 23.4 H (10.0-13.1) SEC INR 2.0 H D (0.9-1.1) Sodium 134 L (135-145) mmol/L Carbon Dioxide 21 L (22-29) mmol/L BUN 41 H (9-16) mg/dL Creatinine 1.72 H (0.5-1.4) mg/dL POC Glucose (60-115) mg/dL Random Glucose 228 H (60-115) mg/dL Lactic Acid (0.5-2.0) mmol/L Total Bilirubin 1.4 H (0.0-1.0) mg/dL Albumin 3.4 L (3.5-5.0) g/dL Urine Protein (Neg-Trace) mg/dL Urine Blood (Negative) Urine Nitrite (Negative) Ur Leukocyte Esterase (Negative) Urine RBC (0-2) /HPF Urine WBC (0-5) /HPF 05/08/23 05/09/23 05/09/23 Range/Units 17:17 01:13 01:20 WBC (4.8-10.8) X10*3/uL RDW (11.0-16.0) % MPV (9.4-12.3) fL Immature Gran % (Auto) (0.0-0.4) % Neut % (Auto) (45-73) % Lymph % (Auto) (20-40) % [place] # (Auto) (0.1-1.2) X10*3/uL Abs Immat Gran (auto) (0.00-0.03) X10*3/uL Absolute Neuts (auto) (2.0-8.3) x10*3/uL PT (10.0-13.1) SEC INR (0.9-1.1) Sodium (135-145) mmol/L Carbon Dioxide (22-29) mmol/L BUN (9-16) mg/dL Creatinine (0.5-1.4) mg/dL POC Glucose 163 H (60-115) mg/dL Random Glucose (60-115) mg/dL Lactic Acid 2.2 H* (0.5-2.0) mmol/L Total Bilirubin (0.0-1.0) mg/dL Albumin (3.5-5.0) g/dL Urine Protein 300 (3+) H (Neg-Trace) mg/dL Urine Blood Large (3+) H (Negative) Urine Nitrite Positive H (Negative) Ur Leukocyte Esterase Large (3+) H (Negative) Urine RBC >20 H (0-2) /HPF Urine WBC >50 H (0-5) /HPF 05/09/23 05/09/23 05/09/23 Range/Units 06:26 06:26 07:44 WBC 17.2 H (4.8-10.8) X10*3/uL RDW 16.3 H (11.0-16.0) % MPV (9.4-12.3) fL Immature Gran % (Auto) 0.7 H (0.0-0.4) % Neut % (Auto) 80.0 H (45-73) % Lymph % (Auto) 9.1 L (20-40) % [place] # (Auto) 1.7 H (0.1-1.2) X10*3/uL Abs Immat Gran (auto) 0.12 H (0.00-0.03) X10*3/uL Absolute Neuts (auto) 13.8 H (2.0-8.3) x10*3/uL PT (10.0-13.1) SEC INR (0.9-1.1) Sodium (135-145) mmol/L Carbon Dioxide 20 L (22-29) mmol/L BUN 38 H (9-16) mg/dL Creatinine 1.62 H (0.5-1.4) mg/dL POC Glucose 133 H (60-115) mg/dL Random Glucose 144 H (60-115) mg/dL Lactic Acid (0.5-2.0) mmol/L Total Bilirubin (0.0-1.0) mg/dL Albumin (3.5-5.0) g/dL Urine Protein (Neg-Trace) mg/dL Urine Blood (Negative) Urine Nitrite (Negative) Ur Leukocyte Esterase (Negative) Urine RBC (0-2) /HPF Urine WBC (0-5) /HPF // Range/Units 11:39 WBC (4.8-10.8) X10*3/uL RDW (11.0-16.0) % MPV (9.4-12.3) fL Immature Gran % (Auto) (0.0-0.4) % Neut % (Auto) (45-73) % Lymph % (Auto) (20-40) % [place] # (Auto) (0.1-1.2) X10*3/uL Abs Immat Gran (auto) (0.00-0.03) X10*3/uL Absolute Neuts (auto) (2.0-8.3) x10*3/uL PT (10.0-13.1) SEC INR (0.9-1.1) Sodium (135-145) mmol/L Carbon Dioxide (22-29) mmol/L BUN (9-16) mg/dL Creatinine (0.5-1.4) mg/dL POC Glucose 152 H (60-115) mg/dL Random Glucose (60-115) mg/dL Lactic Acid (0.5-2.0) mmol/L Total Bilirubin (0.0-1.0) mg/dL Albumin (3.5-5.0) g/dL Urine Protein (Neg-Trace) mg/dL Urine Blood (Negative) Urine Nitrite (Negative) Ur Leukocyte Esterase (Negative) Urine RBC (0-2) /HPF Urine WBC (0-5) /HPF Short CBC 05/08/23 05/09/23 Range/Units 15:45 06:26 WBC 21.1 H 17.2 H (4.8-10.8) X10*3/uL Hgb 12.8 12.5 (12.0-16.0) g/dl Hct 38.4 38.7 (37.0-47.0) % Plt Count 213 187 (160-400) X10*3/uL BMP 05/08/23 05/09/23 15:45 06:26 Sodium 134 L 135 Potassium 4.0 3.8 Chloride 101 104 Carbon Dioxide 21 L 20 L BUN 41 H 38 H Creatinine 1.72 H 1.62 H Calcium 8.9 D 9.0 Liver Function 05/08/23 Range/Units 15:45 Total Bilirubin 1.4 H (0.0-1.0) mg/dL AST 27 (5-31) U/L ALT 17 (0-31) U/L Alkaline Phosphatase 104 (39-117) U/L Albumin 3.4 L (3.5-5.0) g/dL Urine 05/09/23 Range/Units 01:13 Urine Color Yellow Urine Appearance Turbid Urine pH 6.0 (5.0-9.0) Ur Specific [place] 1.015 (1.005-1.025) Urine Protein 300 (3+) H (Neg-Trace) mg/dL Urine Glucose (UA) Negative (Negative) mg/dL All other labs normal. Assessment and Plan (1) Complication of catheter: Status: Acute (2) Recurrent UTI: Status: Acute (3) Current use of anticoagulant therapy: Status: Acute Plan Cont IV Abx pending c/s results. When stable. discharge with martinez and continue PO antibiotic, Out patient fu with Dr Sharma to have Cystotomy and SP tube done as outpatient. Time Spent With Patient Time: Total time managing care of this patient today ____ minutes. Procedures Date of Service Date of Service: 05/12/23
--- NOTE | 2023-05-09 11:53 | HO.PM.IMPN ---
Subjective Subjective Date of Service: 05/09/23 Review of Systems Follow up abd pain suprapubic catheter out, reg martinez in still with pain Physical Exam Vital Signs: Vital Signs: Last Vital Signs Temp 97.0 F 05/09/23 11:09 Pulse 89 05/09/23 11:09 Resp 20 05/09/23 11:09 BP 135/63 05/09/23 11:09 Pulse Ox 92 05/09/23 11:09 O2 Del Method Room Air 05/09/23 11:09 O2 Flow Rate 2 05/09/23 01:06 Oxygen Flow Rate 2 05/08/23 15:18 BMI result Body Mass Index 34.2 Appearing in no acute distress lung sounds are clear to auscultation heart regular rate rhythm, clear S1, S2 positive bowel sounds, abdomen is soft, nontender neuro patient is alert x3, no focal deficits Objective Data Active Medications Acetaminophen (Acetaminophen 325 Mg Tablet) 650 mg PO Q6H PRN PRN Reason: Pain, Mild (Pain Scale 1-3) Dextrose (Dextrose 50 % 25 Gm/50 Ml Syringe) 25 gm IVPUSH Q15M PRN; Protocol PRN Reason: per Hypoglycemia Standing Ord. Glucose (Glucose Gel 15 Gm Gel..Gram.) 15 gm PO Q15M PRN; Protocol PRN Reason: per Hypoglycemia Standing Ord. Ceftriaxone Sodium 2 gm/ (Sodium Chloride) 50 mls @ 100 mls/hr IV Q24H [facility] Insulin Glargine (Insulin Glargine,Hum.Rec.Anlog 100 Unit/Ml 10 Ml Vial) 15 unit SUBCUT BEDTIME [facility] Last Admin: 05/09/23 01:30 Dose: 15 unit Documented By: ARYAN Insulin Human Lispro (Insulin Lispro 100 Unit/Ml 3 Ml Vial) 0 unit SUBCUT QIDACHS [facility]; Protocol Last Admin: 05/09/23 08:05 Dose: Not Given Documented By: ABIGAIL Non-Admin Reason: No Insulin Coverage Melatonin (Melatonin 3 Mg Tablet) 6 mg PO BEDTIME PRN PRN Reason: Insomnia Morphine Sulfate (Morphine Sulfate 4 Mg/Ml Cartridge) 4 mg IVPUSH Q4H PRN; Protocol PRN Reason: Pain, Severe (Pain Scale 7-10) Last Admin: 05/09/23 08:21 Dose: 4 mg Documented By: HO.FOSTEKR Ondansetron HCl (Ondansetron Hcl 4 Mg/2 Ml Vial) 4 mg IVPUSH Q8H PRN PRN Reason: Nausea and Vomiting Pharmacy Consult (Consult Rx Perform Med Rec) 1 each MISCELLANE ONCE PRN PRN Reason: Consult order Sodium Chloride (0.9 % Sodium Chloride Flush 3 Ml Syringe) 3 ml IVFLUSH QSHIFT [facility] Last Admin: 05/09/23 08:22 Dose: 3 ml Documented By: ABIGAIL Labs 05/09/23 06:26 05/09/23 06:26 Labs: Laboratory Results - last 24 hr 05/08/23 05/08/23 05/08/23 15:45 15:45 17:11 MCV 85.3 MCH 28.4 MCHC 33.3 RDW 16.0 Plt Count 213 MPV 9.2 L Immature Gran % (Auto) 0.6 H Neut % (Auto) 83.9 H Lymph % (Auto) 6.5 L Briscoe % (Auto) 8.9 Eos % (Auto) 0.0 Baso % (Auto) 0.1 Lymph # (Auto) 1.4 [place]iscoe # (Auto) 1.9 H Eos # (Auto) 0.0 Baso # (Auto) 0.0 Abs Immat Gran (auto) 0.12 H Absolute Neuts (auto) 17.7 H Absolute Nucleated RBC 0.000 Nucleated RBC % (auto) 0.0 Smear Tech's Comments VERIFIED PT 23.4 H INR 2.0 H D Anion Gap 16 Estim Creat Clear Calc 28.2 Estimated GFR 28 POC Glucose Random Glucose 228 H Lactic Acid Lactic Acid F/U @ 2Hr Calcium 8.9 D Total Bilirubin 1.4 H AST 27 ALT 17 Alkaline Phosphatase 104 Total Protein 7.6 Albumin 3.4 L Urine Color Urine Appearance Urine pH Ur Specific Ernest Urine Protein Urine Glucose (UA) Urine Ketones Urine Blood Urine Nitrite Ur Leukocyte Esterase Urine RBC Urine WBC Ur Squamous Epith Cells Urine Bacteria Hyaline Casts 05/08/23 05/08/23 05/09/23 17:17 20:17 01:13 MCV MCH MCHC RDW Plt Count MPV Immature Gran % (Auto) Neut % (Auto) Lymph % (Auto) Briscoe % (Auto) Eos % (Auto) Baso % (Auto) Lymph # (Auto) [place]iscoe # (Auto) Eos # (Auto) Baso # (Auto) Abs Immat Gran (auto) Absolute Neuts (auto) Absolute Nucleated RBC Nucleated RBC % (auto) Smear Tech's Comments PT INR Anion Gap Estim Creat Clear Calc Estimated GFR POC Glucose Random Glucose Lactic Acid 2.2 H* Lactic Acid F/U @ 2Hr 1.7 Calcium Total Bilirubin AST ALT Alkaline Phosphatase Total Protein Albumin Urine Color Yellow Urine Appearance Turbid Urine pH 6.0 Ur Specific Ernest 1.015 Urine Protein 300 (3+) H Urine Glucose (UA) Negative Urine Ketones Negative Urine Blood Large (3+) H Urine Nitrite Positive H Ur Leukocyte Esterase Large (3+) H Urine RBC >20 H Urine WBC >50 H Ur Squamous Epith Cells 3-5 Urine Bacteria 4+ Hyaline Casts 3-5 05/09/23 05/09/23 05/09/23 01:20 06:26 06:26 MCV 88.2 MCH 28.5 MCHC 32.3 RDW 16.3 H Plt Count 187 MPV 10.0 Immature Gran % (Auto) 0.7 H Neut % (Auto) 80.0 H Lymph % (Auto) 9.1 L Briscoe % (Auto) 9.9 Eos % (Auto) 0.1 Baso % (Auto) 0.2 Lymph # (Auto) 1.6 Briscoe # (Auto) 1.7 H Eos # (Auto) 0.0 Baso # (Auto) 0.0 Abs Immat Gran (auto) 0.12 H Absolute Neuts (auto) 13.8 H Absolute Nucleated RBC 0.000 Nucleated RBC % (auto) 0.0 Smear Tech's Comments VERIFIED PT INR Anion Gap 15 Estim Creat Clear Calc 30.2 Estimated GFR 30 POC Glucose 163 H Random Glucose 144 H Lactic Acid Lactic Acid F/U @ 2Hr Calcium 9.0 Total Bilirubin AST ALT Alkaline Phosphatase Total Protein Albumin Urine Color Urine Appearance Urine pH Ur Specific Ernest Urine Protein Urine Glucose (UA) Urine Ketones Urine Blood Urine Nitrite Ur Leukocyte Esterase Urine RBC Urine WBC Ur Squamous Epith Cells Urine Bacteria Hyaline Casts 05/09/23 05/09/23 07:44 11:39 MCV MCH MCHC RDW Plt Count MPV Immature Gran % (Auto) Neut % (Auto) Lymph % (Auto) Briscoe % (Auto) Eos % (Auto) Baso % (Auto) Lymph # (Auto) Briscoe # (Auto) Eos # (Auto) Baso # (Auto) Abs Immat Gran (auto) Absolute Neuts (auto) Absolute Nucleated RBC Nucleated RBC % (auto) Smear Tech's Comments PT INR Anion Gap Estim Creat Clear Calc Estimated GFR POC Glucose 133 H 152 H Random Glucose Lactic Acid Lactic Acid F/U @ 2Hr Calcium Total Bilirubin AST ALT Alkaline Phosphatase Total Protein Albumin Urine Color Urine Appearance Urine pH Ur Specific Ernest Urine Protein Urine Glucose (UA) Urine Ketones Urine Blood Urine Nitrite Ur Leukocyte Esterase Urine RBC Urine WBC Ur Squamous Epith Cells Urine Bacteria Hyaline Casts Assessment and Plan (1) Nondisplaced fracture of distal end of fibula: Status: Acute (2) UTI (urinary tract infection): Status: Resolved (3) Fall: Status: Resolved (4) Complication of catheter: Status: Acute Plan This is a 82-year-old with past medical history of permanent atrial fibrillation on Coumadin, right hip osteoarthritis, chronic congestive heart failure with preserved ejection fraction, CKD stage 3, hypothyroidism, insulin-dependent diabetes mellitus, essential hypertension, neurogenic bladder presents to emergency department for complication of suprapubic catheter. Closed suprapubic catheter site. Imaging with catheter outside bladder. Urology consultation> rec continuing with martinez catheter, treat UTI and follow up o/p Sepsis due to acute UTI.? Resuscitated with IV crystalloids.? Blood culture and urine culture pending IV Rocephin Permanent atrial fibrillation on Coumadin.? Goal INR 2-3.? Rate controlled Chronic congestive heart failure with preserved ejection fraction currently compensated. Insulin-dependent type 2 diabetes mellitus with hyperglycemia initiating Accu-Cheks with sliding scale insulin.? Reduce home basal regimen while in the hospital Hypothyroidism on levothyroxine Essential hypertension hold antihypertensives in the setting of sepsis.? Resume as appropriate Chronic kidney disease stage 3 creatinine at baseline.? Monitor DVT prophylaxis: On Coumadin Attending Dr. Schaefer continued hospital stay for IV antibiotics Time Spent With Patient Time: Total time managing care of this patient today ____ minutes. Quality Stroke Does the patient have a stroke diagnosis?: No VTE Prior VTE?: No VTE Risk Level:: Medical - moderate - high VTE Device Contraindication: Treatment Not Indicated VTE Drug Contraindication: N/A - Med Ordered
[2023-05-09] MEDS: Insulin Lispro 100 UNIT/ML 3 ML VIAL SUBCUT ×2 (11:56→16:21)
--- NOTE | 2023-05-09 13:23 | MHC.CM.PN ---
Addendum entered by Kayla Cedeño 05/10/23 15:13: CM MET WITH PT AND TWO DAUGHTERS AT BEDSIDE THEY CONFIRM PT HAS [facility] SHE ALSO HAS [facility] PCP: JOSS RINCON Original Note: PT REPORTS SHE LIVES WITH HER DAUGHTERLIZBETH SHE SAYS SHE IS INDEPENDENT WITH MOST CARE SHE HAS [facility] SHE USES A WALKER TO AMBULATE SHE DENIES HAVING A HCP AND SAYS SHE DOES NOT WANT TO COMPLETE ONE YET IMM DELIVERED DCP: [facility]
[2023-05-10 07:48] VITALS: BP 94/58; PULSE 101; RESP 18; TEMP 35.6; O2SAT 90
[2023-05-10 08:50] LABS: Anion Gap 14 (12-20); Blood Urea Nitrogen 38 mg/dL (9-16); Calcium 9.1 mg/dL (8.4-10.2); Carbon Dioxide 25 mmol/L (22-29); Chloride 101 mmol/L (96-108); Creatinine Clr Calc Pharmacy 28.9; Estimated Glomerular Filt Rate 29; Glucose Random 96 mg/dL (60-115); Potassium 4.5 mmol/L (3.3-5.1); Sodium 135 mmol/L (135-145)
--- NOTE | 2023-05-10 11:21 | HO.PM.IMPN ---
Subjective Subjective Date of Service: 05/10/23 Review of Systems Follow up abd pain suprapubic catheter out, reg martinez in still with pain , but better Physical Exam Vital Signs: Vital Signs: Last Vital Signs Temp 96.1 F L 05/10/23 07:48 Pulse 101 H 05/10/23 07:48 Resp 18 05/10/23 07:48 BP 94/58 L 05/10/23 07:48 Pulse Ox 90 L 05/10/23 07:48 O2 Del Method Room Air 05/10/23 07:48 O2 Flow Rate 2 05/09/23 01:06 Oxygen Flow Rate 2 05/08/23 15:18 BMI result Body Mass Index 34.2 Appearing in no acute distress lung sounds are clear to auscultation heart regular rate rhythm, clear S1, S2 positive bowel sounds, abdomen is soft, nontender neuro patient is alert x3, no focal deficits Objective Data Active Medications Acetaminophen (Acetaminophen 325 Mg Tablet) 650 mg PO Q6H PRN PRN Reason: Pain, Mild (Pain Scale 1-3) Last Admin: 05/10/23 05:28 Dose: 650 mg Documented By: NIKHIL Dextrose (Dextrose 50 % 25 Gm/50 Ml Syringe) 25 gm IVPUSH Q15M PRN; Protocol PRN Reason: per Hypoglycemia Standing Ord. Glucose (Glucose Gel 15 Gm Gel..Gram.) 15 gm PO Q15M PRN; Protocol PRN Reason: per Hypoglycemia Standing Ord. Piperacillin Sod/Tazobactam (Sod 2.25 gm/ Sodium Chloride) 50 mls @ 100 mls/hr IV Q6H [facility] Last Infusion: 05/10/23 09:21 Dose: 0 mls/hr Documented By: ABIGAIL Insulin Glargine (Insulin Glargine,Hum.Rec.Anlog 100 Unit/Ml 10 Ml Vial) 15 unit SUBCUT BEDTIME [facility] Last Admin: 05/09/23 20:28 Dose: Not Given Documented By: JOSE EDUARDO Non-Admin Reason: No Insulin Coverage Insulin Human Lispro (Insulin Lispro 100 Unit/Ml 3 Ml Vial) 0 unit SUBCUT QIDACHS [facility]; Protocol Last Admin: 05/10/23 07:27 Dose: Not Given Documented By: ABIGAIL Non-Admin Reason: No Insulin Coverage Melatonin (Melatonin 3 Mg Tablet) 6 mg PO BEDTIME PRN PRN Reason: Insomnia Morphine Sulfate (Morphine Sulfate 4 Mg/Ml Cartridge) 4 mg IVPUSH Q4H PRN; Protocol PRN Reason: Pain, Severe (Pain Scale 7-10) Last Admin: 05/09/23 22:11 Dose: 4 mg Documented By: JOSE EDUARDO Ondansetron HCl (Ondansetron Hcl 4 Mg/2 Ml Vial) 4 mg IVPUSH Q8H PRN PRN Reason: Nausea and Vomiting Pharmacy Consult (Consult Rx Perform Med Rec) 1 each MISCELLANE ONCE PRN PRN Reason: Consult order Sodium Chloride (0.9 % Sodium Chloride Flush 3 Ml Syringe) 3 ml IVFLUSH QSHIFT [facility] Last Admin: 05/10/23 08:51 Dose: 3 ml Documented By: CANDICETEKAvtar Labs 05/10/23 08:14 05/10/23 08:14 Labs: Laboratory Results - last 24 hr 05/09/23 05/09/23 05/09/23 11:39 15:11 16:16 MCV MCH MCHC RDW Plt Count MPV Absolute Nucleated RBC Nucleated RBC % (auto) Anion Gap Estim Creat Clear Calc Estimated GFR POC Glucose 152 H 157 H 153 H Random Glucose Lactic Acid Calcium 05/09/23 05/10/23 05/10/23 19:49 07:11 08:14 MCV 90.1 MCH 28.7 MCHC 31.9 RDW 16.1 H Plt Count 201 MPV 9.7 Absolute Nucleated RBC 0.000 Nucleated RBC % (auto) 0.0 Anion Gap Estim Creat Clear Calc Estimated GFR POC Glucose 73 96 Random Glucose Lactic Acid Calcium 05/10/23 05/10/23 08:14 08:14 MCV MCH MCHC RDW Plt Count MPV Absolute Nucleated RBC Nucleated RBC % (auto) Anion Gap 14 Estim Creat Clear Calc 28.9 Estimated GFR 29 POC Glucose Random Glucose 96 Lactic Acid 1.1 Calcium 9.1 Microbiology Microbiology Results: Microbiology 05/08/23 17:11 Blood Culture - Preliminary Blood - Venous No growth after 24 hours. 05/08/23 16:37 Blood Culture - Preliminary Blood - Venous No growth after 24 hours. Assessment and Plan (1) Nondisplaced fracture of distal end of fibula: Status: Acute (2) UTI (urinary tract infection): Status: Resolved (3) Fall: Status: Resolved (4) Complication of catheter: Status: Acute Plan This is a 82-year-old with past medical history of permanent atrial fibrillation on Coumadin, right hip osteoarthritis, chronic congestive heart failure with preserved ejection fraction, CKD stage 3, hypothyroidism, insulin-dependent diabetes mellitus, essential hypertension, neurogenic bladder presents to emergency department for complication of suprapubic catheter. Closed suprapubic catheter site. Imaging with catheter outside bladder. Urology consultation> rec continuing with martinez catheter, treat UTI and follow up o/p Sepsis due to acute UTI.? now hypotention, tachycardia, hypothermia Rocephin changed to Zosyn normal lactic acid Blood culture neg after 24 hrs urine culture pending IV fluids Permanent atrial fibrillation on Coumadin.? Goal INR 2-3.? Rate controlled Chronic congestive heart failure with preserved ejection fraction currently compensated. Insulin-dependent type 2 diabetes mellitus with hyperglycemia initiating Accu-Cheks with sliding scale insulin.? Reduce home basal regimen while in the hospital Hypothyroidism on levothyroxine Essential hypertension hold antihypertensives in the setting of sepsis.? Resume as appropriate Chronic kidney disease stage 3 creatinine at baseline.? Monitor DVT prophylaxis: On Coumadin Attending Dr. Schaefer continued hospital stay for IV antibiotics Time Spent With Patient Time: Total time managing care of this patient today ____ minutes. Quality Stroke Does the patient have a stroke diagnosis?: No VTE Prior VTE?: No VTE Risk Level:: Medical - moderate - high VTE Device Contraindication: Treatment Not Indicated VTE Drug Contraindication: N/A - Med Ordered
[2023-05-10] MEDS: Insulin Lispro 100 UNIT/ML 3 ML VIAL SUBCUT ×3 (11:58→21:07)
[2023-05-10 15:50] VITALS: BP 118/59; PULSE 94; RESP 18; TEMP 36.7; O2SAT 93
[2023-05-10 18:52] VITALS: BP 111/71; PULSE 90; RESP 20; TEMP 36.6; O2SAT 98
[2023-05-10] MEDS: Insulin Glargine,Hum.rec.anlog 100 UNIT/ML 10 ML VIAL 15 UNIT SUBCUT (21:08)
[2023-05-10] MEDS: Morphine Sulfate 4 MG/ML CARTRIDGE IVPUSH (21:28)
--- NOTE | 2023-05-10 22:33 | PC.NURSE ---
Assumed care at 1900. Noted that IV pump was powered off and scheduled Doxycycline had not run. Patients IV was also leaking so new IV was inserted. Doxycycline was then resumed at 2029 Verified with pharmacy to give scheduled dose at 400.
[2023-05-11] VITALS: BP 130/80; PULSE 102; RESP 20; TEMP 36.2; O2SAT 95
[2023-05-11] MEDS: Morphine Sulfate 4 MG/ML CARTRIDGE IVPUSH (03:07)
[2023-05-11 07:10] VITALS: BP 128/70; PULSE 85; RESP 20; TEMP 35.8; O2SAT 92
[2023-05-11] MEDS: Insulin Lispro 100 UNIT/ML 3 ML VIAL SUBCUT ×4 (08:12→21:26)
--- NOTE | 2023-05-11 10:57 | HO.PM.IMPN ---
Subjective Subjective Date of Service: 05/11/23 Review of Systems Follow up abd pain suprapubic catheter out, reg martinez in still with pain , but better Physical Exam Vital Signs: Vital Signs: Last Vital Signs Temp 96.5 F L 05/11/23 07:10 Pulse 85 05/11/23 07:10 Resp 20 05/11/23 07:10 BP 128/70 05/11/23 07:10 Pulse Ox 92 05/11/23 07:10 O2 Del Method Room Air 05/11/23 07:10 O2 Flow Rate 2 05/09/23 01:06 Oxygen Flow Rate 2 05/08/23 15:18 BMI result Body Mass Index 34.2 Appearing in no acute distress lung sounds are clear to auscultation heart regular rate rhythm, clear S1, S2 positive bowel sounds, abdomen is soft, nontender neuro patient is alert x3, no focal deficits Objective Data Active Medications Acetaminophen (Acetaminophen 325 Mg Tablet) 650 mg PO Q6H PRN PRN Reason: Pain, Mild (Pain Scale 1-3) Last Admin: 05/11/23 08:25 Dose: 650 mg Documented By: JEANA Dextrose (Dextrose 50 % 25 Gm/50 Ml Syringe) 25 gm IVPUSH Q15M PRN; Protocol PRN Reason: per Hypoglycemia Standing Ord. Glucose (Glucose Gel 15 Gm Gel..Gram.) 15 gm PO Q15M PRN; Protocol PRN Reason: per Hypoglycemia Standing Ord. Piperacillin Sod/Tazobactam (Sod 2.25 gm/ Sodium Chloride) 50 mls @ 100 mls/hr IV Q6H [facility] Last Infusion: 05/11/23 10:22 Dose: 0 mls/hr Documented By: JEANA Sodium Chloride (Ns) 1,000 mls @ 100 mls/hr IVCONT .Q10H [facility] Last Admin: 05/11/23 06:29 Dose: 100 mls/hr Documented By: PARISH Doxycycline Hyclate 100 mg/ (Sodium Chloride) 250 mls @ 166.67 mls/hr IV Q12H [facility] Last Infusion: 05/11/23 05:47 Dose: 0 mls/hr Documented By: PARISH Insulin Glargine (Insulin Glargine,Hum.Rec.Anlog 100 Unit/Ml 10 Ml Vial) 15 unit SUBCUT BEDTIME [facility] Last Admin: 05/10/23 21:08 Dose: 15 unit Documented By: PARISH Insulin Human Lispro (Insulin Lispro 100 Unit/Ml 3 Ml Vial) 0 unit SUBCUT QIDACHS [facility]; Protocol Last Admin: 05/11/23 08:12 Dose: 2 unit Documented By: JEANA Melatonin (Melatonin 3 Mg Tablet) 6 mg PO BEDTIME PRN PRN Reason: Insomnia Morphine Sulfate (Morphine Sulfate 4 Mg/Ml Cartridge) 4 mg IVPUSH Q4H PRN; Protocol PRN Reason: Pain, Severe (Pain Scale 7-10) Last Admin: 05/11/23 03:07 Dose: 4 mg Documented By: PARISH Ondansetron HCl (Ondansetron Hcl 4 Mg/2 Ml Vial) 4 mg IVPUSH Q8H PRN PRN Reason: Nausea and Vomiting Pharmacy Consult (Consult Rx Perform Med Rec) 1 each MISCELLANE ONCE PRN PRN Reason: Consult order Sodium Chloride (0.9 % Sodium Chloride Flush 3 Ml Syringe) [facility] Last Admin: 05/11/23 08:18 Dose: Not Given Documented By: JEANA Non-Admin Reason: iv leaking Labs 05/10/23 08:14 05/10/23 08:14 Labs: Laboratory Results - last 24 hr 05/10/23 05/10/23 05/10/23 11:42 15:21 18:54 POC Glucose 154 H 213 H 196 H 05/11/23 07:07 POC Glucose 166 H Microbiology Microbiology Results: Microbiology 05/09/23 Unknown Urine Culture - Final Urine clean catch - Urine pires top Methicillin Res Staph Aureus 05/08/23 17:11 Blood Culture - Preliminary Blood - Venous No growth after 48 hours. 05/08/23 16:37 Blood Culture - Preliminary Blood - Venous No growth after 48 hours. Assessment and Plan (1) Nondisplaced fracture of distal end of fibula: Status: Acute (2) UTI (urinary tract infection): Status: Resolved (3) Fall: Status: Resolved (4) Complication of catheter: Status: Acute Plan This is a 82-year-old with past medical history of permanent atrial fibrillation on Coumadin, right hip osteoarthritis, chronic congestive heart failure with preserved ejection fraction, CKD stage 3, hypothyroidism, insulin-dependent diabetes mellitus, essential hypertension, neurogenic bladder presents to emergency department for complication of suprapubic catheter. Sepsis due to acute MRSA UTI.? Sepsis resolved Blood culture neg after 48hrs Doxycycline added ID consult pending Closed suprapubic catheter site. Imaging with catheter outside bladder. Urology consultation> rec continuing with martinez catheter, treat UTI and follow up o/p Permanent atrial fibrillation on Coumadin, metorprolol? Goal INR 2-3.? Rate controlled Chronic congestive heart failure with preserved ejection fraction currently compensated. lasix home dose Insulin-dependent type 2 diabetes mellitus with hyperglycemia initiating Accu-Cheks with sliding scale insulin.? Reduce home basal regimen while in the hospital Hypothyroidism on levothyroxine Essential hypertension amlodipine Chronic kidney disease stage 3 creatinine at baseline.? Monitor DVT prophylaxis: On Coumadin Attending Dr. Estrada continued hospital stay for IV antibiotics Time Spent With Patient Time: Total time managing care of this patient today ____ minutes. Quality Stroke Does the patient have a stroke diagnosis?: No VTE Prior VTE?: No VTE Risk Level:: Medical - moderate - high VTE Device Contraindication: Treatment Not Indicated VTE Drug Contraindication: N/A - Med Ordered
[2023-05-11] MEDS: Aspirin Enteric Coated 81 MG TABLET.DR PO (12:00)
[2023-05-11] MEDS: Furosemide 40 MG TABLET PO ×2 (12:00→21:26)
[2023-05-11] MEDS: Multivitamin TABLET 1 TAB PO (12:00)
[2023-05-11] MEDS: Metoprolol Succinate ER 100 MG TAB.ER.24H 200 MG PO (12:00)
[2023-05-11] MEDS: amLODIPine Besylate 5 MG TABLET PO (12:01)
[2023-05-11] MEDS: Levothyroxine Sodium 25 MCG TABLET PO (12:01)
--- NOTE | 2023-05-11 12:42 | MHC.CM.PN ---
Addendum entered by Ivett Bradford 05/11/23 15:04: [facility] is pts [facility] choice and is reviewing referral. Pt was active with [facility] are following for D/C to resume services after STR. Original Note: PT recommending STR. This CM met with patient and her daughter at bedside. The pt is agreeable to go to STR, preferences are [facility] and [facility]. Referrals sent via careport. CM will continue to follow.
--- NOTE | 2023-05-11 14:58 | W.PM.IDCN ---
History of Present Illness Data of Consult Service Date: 05/11/23 Requesting physician: Patricia Saleh Primary Care Provider: Unknown Physician HPI Reason for consult: suprapubic catheter infection,staph She presents on 05/08 with lower abdominal discomfort 04/11 as well as nausea. She has catheter replaced and has been outside of bladder. She has suprapubic catheter with difficulty replacing at home also. Review of Systems Review of Systems: Yes all other systems are reviewed and are negative [facility] Past Medical History Medical History (Updated 05/11/23 @ 15:10 by Sari Marquez MD) Atrial fibrillation CAD (coronary artery disease) CKD (chronic kidney disease) Congestive heart failure Diabetes Hip pain Hypertension Hypothyroidism Hypotonic neurogenic bladder Leg wound, left MRSA infection Osteoarthritis of right hip PAF (paroxysmal atrial fibrillation) Urinary incontinence Varicose vein of leg Family History Family History Father Hx of angina pectoris Myocardial infarction Mother Ovarian cancer Stomach cancer Maternal Grandfather Hardening of the arteries of the heart Surgical History Surgical History H/O heart artery stent H/O nasal polypectomy History of tonsillectomy and adenoidectomy History of tubal ligation Hx of cholecystectomy Social History Social History Household Members: Children Household Members Other:: daughter Housing: House Do you presently have visiting nurse or other home services: Yes Alcohol intake: never Patient Tobacco Use Status: Never used Tobacco Second Hand Smoke Exposure: No Use of substances other than those prescribed or required for medical reasons: No Currently Displaying Signs/Symptoms of Drug Intoxication Withdrawal: No Have you been hit, kicked, punched, or otherwise hurt by someone within the past year? If so, by whom?: No Do you feel safe in your current relationship?: No Current Relationship Is there a partner from a previous relationship who is making you feel unsafe now?: No Are you made to feel afraid or neglected: No Advance Directives: Yes Advance Directives on File: Yes Advance Directives Date on File: 08/27/22 Do you have thoughts of harming others: None Do you have a plan to hurt others: No Plan Recently lost weight without trying: Unsure Eating poorly because of decreased appetite: No Nutrition Risks: No Nutritional Risk Patient : No Poor oral hygiene: No service: No Current occupational status: retired Meds Allergies Allergy/AdvReac Type Severity Reaction Status Date / Time No Known Allergies Allergy Verified 05/08/23 02:10 [No Known Allergies*] Active Medications: Current Medications Acetaminophen (Acetaminophen 325 Mg Tablet) 650 mg PO Q6H PRN PRN Reason: Pain, Mild (Pain Scale 1-3) Last Admin: 05/11/23 08:25 Dose: 650 mg Amlodipine Besylate (Amlodipine Besylate 5 Mg Tablet) 5 mg PO DAILY [facility]; Protocol Last Admin: 05/11/23 12:01 Dose: 5 mg Aspirin (Aspirin Enteric Coated 81 Mg Tablet.Dr) 81 mg PO DAILY [facility] Last Admin: 05/11/23 12:00 Dose: 81 mg Atorvastatin Calcium (Atorvastatin Calcium 10 Mg Tablet) 10 mg PO BEDTIME SUN Dextrose (Dextrose 50 % 25 Gm/50 Ml Syringe) 25 gm IVPUSH Q15M PRN; Protocol PRN Reason: per Hypoglycemia Standing Ord. Furosemide (Furosemide 40 Mg Tablet) 40 mg PO BID [facility]; Protocol Last Admin: 05/11/23 12:00 Dose: 40 mg Glucose (Glucose Gel 15 Gm Gel..Gram.) 15 gm PO Q15M PRN; Protocol PRN Reason: per Hypoglycemia Standing Ord. Piperacillin Sod/Tazobactam (Sod 2.25 gm/ Sodium Chloride) 50 mls @ 100 mls/hr IV Q6H [facility] Last Infusion: 05/11/23 10:22 Dose: Infused Sodium Chloride (Ns) 1,000 mls @ 100 mls/hr IVCONT .Q10H SUN Last Admin: 05/11/23 06:29 Dose: 100 mls/hr Doxycycline Hyclate 100 mg/ (Sodium Chloride) 250 mls @ 166.67 mls/hr IV Q12H [facility] Last Infusion: 05/11/23 05:47 Dose: Infused Insulin Glargine (Insulin Glargine,Hum.Rec.Anlog 100 Unit/Ml 10 Ml Vial) 15 unit SUBCUT BEDTIME SUN Last Admin: 05/10/23 21:08 Dose: 15 unit Insulin Glargine (Insulin Glargine,Hum.Rec.Anlog 100 Unit/Ml 10 Ml Vial) 35 unit SUBCUT BEDTIME SUN Insulin Human Lispro (Insulin Lispro 100 Unit/Ml 3 Ml Vial) 0 unit SUBCUT QIDACHS [facility]; Protocol Last Admin: 05/11/23 11:58 Dose: 2 unit Levothyroxine Sodium (Levothyroxine Sodium 25 Mcg Tablet) 25 mcg PO DAILY@0600 [facility] Last Admin: 05/11/23 12:01 Dose: 25 mcg Melatonin (Melatonin 3 Mg Tablet) 6 mg PO BEDTIME PRN PRN Reason: Insomnia Metoprolol Succinate (Metoprolol Succinate Er 100 Mg Tab.Er.24h) 200 mg PO DAILY [facility]; Protocol Last Admin: 05/11/23 12:00 Dose: 200 mg Morphine Sulfate (Morphine Sulfate 4 Mg/Ml Cartridge) 4 mg IVPUSH Q4H PRN; Protocol PRN Reason: Pain, Severe (Pain Scale 7-10) Last Admin: 05/11/23 03:07 Dose: 4 mg Multivitamins/Vitamin C (Multivitamin Tablet) 1 tab PO DAILY [facility] Last Admin: 05/11/23 12:00 Dose: 1 tab Ondansetron HCl (Ondansetron Hcl 4 Mg/2 Ml Vial) 4 mg IVPUSH Q8H PRN PRN Reason: Nausea and Vomiting Pharmacy Consult (Consult Rx Perform Med Rec) 1 each MISCELLANE ONCE PRN PRN Reason: Consult order Sodium Chloride (0.9 % Sodium Chloride Flush 3 Ml Syringe) 3 ml IVFLUSH QSHIFT [facility] Last Admin: 05/11/23 08:18 Dose: Not Given Warfarin Sodium (Warfarin Sodium 1 Mg Tablet) 1 mg PO SuMoTuThFrSa@1800 [facility] Warfarin Sodium (Warfarin Sodium 2 Mg Tablet) [address] [facility] Home Medications Medication Instructions Recorded Confirmed Last Taken Type levothyroxine 25 mcg tablet 25 mcg PO DAILY 09/05/20 05/09/23 Unknown History aspirin 81 mg tablet,delayed 81 mg PO DAILY 09/11/21 05/09/23 Unknown History release pen needle, diabetic 32 gauge x #50 ea 12/31/21 05/07/23 Unknown History (BD Cathy 2nd Gen Pen Needle) insulin glargine 100 unit/mL 35 unit subcut BEDTIME 08/15/22 05/09/23 Unknown History subcutaneous solution (Lantus U-100 Insulin) multivitamin (One Daily 1 tab PO DAILY 09/15/22 05/09/23 Unknown History Multivitamin tablet) lancets 28 gauge (FreeStyle #100 ea 09/29/22 05/07/23 Unknown History Lancets) melatonin 5 mg tablet 5 mg PO BEDTIME PRN Sleep 05/09/23 05/09/23 Unknown History vitamins A,C,V-jnlp-rtnngo 2,148 1 tab PO BID 05/09/23 05/09/23 Unknown History mcg-113 mg-45 mg-17.4 mg tablet (PreserVision AREDS) warfarin 1 mg tablet (Jantoven) 1 mg PO SUMOTUTHFRSA 05/09/23 05/09/23 Unknown History warfarin 2 mg tablet (Jantoven) 2 mg PO WE 05/09/23 05/09/23 Unknown History Physical Exam Vital Signs: Vital Signs: Last Vital Signs Temp 96.5 F L 05/11/23 07:10 Pulse 85 05/11/23 07:10 Resp 20 05/11/23 07:10 BP 128/70 05/11/23 07:10 Pulse Ox 92 05/11/23 07:10 O2 Del Method Room Air 05/11/23 07:10 O2 Flow Rate 2 05/09/23 01:06 Oxygen Flow Rate 2 05/08/23 15:18 BMI result Body Mass Index 34.2 Const: General: cooperative HEENT: Head: Yes normal to inspection Face and sinus: Yes normal facial exam Mouth: Normal oral and palatal mucosa present Teeth and gingiva: dentition normal Eyes: General: appearance normal, both eyes and all related structures Pupils: Equal, round and reactive pupils present Resp: Effort & Inspection: normal respiratory effort Cardio: Rate: regular rate Rhythm: regular rhythm GI: Palpation (GI): Soft to palpation and nontender : General: Yes no CVA tenderness Back/Spine/Pelvis: Back: no CVA tenderness Skin: General skin exam: no rashes or lesions noted Neuro: General: moves all extremities Cranial nerves: Yes Equal, round and reactive pupils present Extrem: General: Yes normal to inspection Psych: Appearance: grossly normal Results Labs 05/10/23 08:14 05/10/23 08:14 Microbiology Microbiology Results: Microbiology 05/09/23 Unknown Urine clean catch - Urine pires top Urine Culture - Final Methicillin Res Staph Aureus 05/08/23 17:11 Blood - Venous Blood Culture - Preliminary No growth after 48 hours. 05/08/23 16:37 Blood - Venous Blood Culture - Preliminary No growth after 48 hours. Assessment and Plan (1) Complication of catheter: Status: Acute (2) MRSA infection: Status: Acute She has MRSA urine. This is likely due to issues with retention and suprapubic catheter problems. There is no bacteremia. Plan Would give po Doxycycline for 14 days. Time Spent With Patient Time: Total time managing care of this patient today ____ minutes.
[2023-05-11 15:32] VITALS: BP 156/80; PULSE 93; RESP 17; TEMP 36.2; O2SAT 97
[2023-05-11] MEDS: Warfarin Sodium 1 MG TABLET PO (16:56)
[2023-05-11 19:59] VITALS: BP 131/70; PULSE 98; RESP 18; TEMP 36.5; O2SAT 99
[2023-05-11 20:39] LABS: Glucose, Whole Blood 213 mg/dL (60-115)
[2023-05-11] MEDS: Insulin Glargine,Hum.rec.anlog 100 UNIT/ML 10 ML VIAL 35 UNIT SUBCUT (21:25)
[2023-05-11] MEDS: Insulin Glargine,Hum.rec.anlog 100 UNIT/ML 10 ML VIAL 15 UNIT SUBCUT (21:25)
[2023-05-11] MEDS: Atorvastatin Calcium 10 MG TABLET PO (21:26)
[2023-05-11 23:55] VITALS: BP 138/71; PULSE 110; RESP 15; TEMP 36.2; O2SAT 95
[2023-05-12] MEDS: Morphine Sulfate 4 MG/ML CARTRIDGE IVPUSH (02:13)
[2023-05-12 03:37] VITALS: BP 128/63; PULSE 72; RESP 16; TEMP 36.1; O2SAT 97
[2023-05-12] MEDS: Levothyroxine Sodium 25 MCG TABLET PO (05:11)
[2023-05-12 07:14] LABS: INTERNATIONAL NORM RATIO 1.3 (0.9-1.1); Prothrombin Time 15.6 SEC (10.0-13.1)
[2023-05-12 08:00] VITALS: BP 160/74; PULSE 97; RESP 19; TEMP 36.7; O2SAT 97
[2023-05-12 08:10] LABS: Glucose, Whole Blood 62 mg/dL (60-115)
[2023-05-12] MEDS: Metoprolol Succinate ER 100 MG TAB.ER.24H 200 MG PO (08:31)
[2023-05-12] MEDS: Aspirin Enteric Coated 81 MG TABLET.DR PO (08:31)
[2023-05-12] MEDS: amLODIPine Besylate 5 MG TABLET PO (08:31)
[2023-05-12] MEDS: Furosemide 40 MG TABLET PO (08:31)
[2023-05-12] MEDS: Multivitamin TABLET 1 TAB PO (08:31)
[2023-05-12 08:40] LABS: Glucose, Whole Blood 83 mg/dL (60-115)
--- NOTE | 2023-05-12 10:25 | PM.DS ---
DS: Providers Provider Date of Service: 05/12/23 Date of admission: 05/08/23 23:49 Primary care physician: Unknown Physician Consults: 05/08/23 23:49 Consult to Urology Routine Consulting Provider: Brennen Nguyen Reason for consultation: suprapubic catheter issue 05/11/23 07:14 Consult to Infectious Diseases Routine Consulting Provider: [facility] Infectious Disease Reason for consultation: staph urine DS: Diagnosis Discharge Diagnosis (1) Complication of catheter: Status: Acute (2) MRSA infection: Status: Acute DS: Summary Hospital Course Hospital Course: History and physical as per admitting provider. This is a 82-year-old with past medical history of permanent atrial fibrillation on Coumadin, right hip osteoarthritis, chronic congestive heart failure with preserved ejection fraction, CKD stage 3, hypothyroidism, insulin-dependent diabetes mellitus, essential hypertension, neurogenic bladder presents to emergency department for complication of suprapubic catheter.? Patient presented to the ER about 1 day prior to presentation for similar issue.? Suprapubic catheter was changed and patient was discharged home by ER physician.? Patient returns stating that there was no output from suprapubic catheter and urine was leaking through the stoma.? Also noticed blood around the catheter.? Tried to irrigate the catheter on the day of presentation but patient was having severe pain.? Imaging in the ER revealed the catheter did not enter the bladder and instead goes into the left rectus muscle posteriorly.? Urology was consulted who requested admission.? Patient denies fever, chills, chest discomfort, palpitations, shortness of breath, changes in bowel habits. 82-year-old woman treated for sepsis secondary to MRSA UTI a dislodged suprapubic catheter. Patient was seen examined by Urology who suggested to keep the suprapubic pubic catheter out as the site had closed. Martinez catheter was placed and patient will continue with a Martinez catheter until her follow-up with the urologist outpatient. Her urine did come back for MRSA and initially was treated with the doxycycline. Seen and evaluated by Infectious Disease provider with recommendation to complete a total 14 day antibiotic course of doxycycline. Blood cultures remain negative. Permanent atrial fibrillation. Rate controlled on warfarin and metoprolol Chronic congestive heart failure with preserved ejection fraction. Compensated during admission. Continue home dose of Lasix Insulin-dependent type 2 diabetes mellitus with hyperglycemia did have some episodes of hyperglycemia during admission treated with sliding scale insulin and home dose of basal. She may continue her home dose Hypothyroidism. Continue levothyroxine Essential hypertension. Continue amlodipine Chronic kidney disease stage 3. Stable during admission Time Spent with Patient Time attestation: Total time managing care of this patient today ____ minutes. Discharge coordination time: Greater than 30 minutes Quality: Safe Use of Opioids Does Pt have an Active Cancer Diagnosis on the Problem List?: No Quality: Stroke Does the patient have a stroke diagnosis?: No Physical Exam Vital Signs: Vital Signs: Last Vital Signs Temp 98.0 F 05/12/23 08:00 Pulse 97 05/12/23 08:00 Resp 19 05/12/23 08:00 BP 160/74 H 05/12/23 08:00 Pulse Ox 97 05/12/23 08:00 O2 Del Method Room Air 05/12/23 08:00 O2 Flow Rate 2 05/09/23 01:06 Oxygen Flow Rate 2 05/08/23 15:18 BMI result Body Mass Index 34.2 Appearing in no acute distress head is normocephalic atraumatic eyes pupils are PERRLA sclera is anicteric mouth throat mucous membranes are intact and moist neck is supple no lymphadenopathy, no JVD noted lung sounds are clear to auscultation heart regular rate rhythm, clear S1, S2 positive bowel sounds, abdomen is soft, nontender neuro patient is alert x3, no focal deficits Martinez catheter DS: Data Data Completed and Pending Completed studies during hospitalization [Text1]: Procedures Extirpation of Matter from Bladder, Via Natural or Artificial Opening Endoscopic (06/27/22) Fluoroscopy of Kidneys, Ureters and Bladder (06/27/22) Labs on day of discharge: Laboratory Results - last 24 hr 05/11/23 05/11/23 05/11/23 11:00 12:41 16:30 PT 15.0 H INR 1.3 H POC Glucose 198 H 230 H 05/11/23 05/12/23 05/12/23 20:27 07:02 08:07 PT 15.6 H INR 1.3 H POC Glucose 213 H 62 05/12/23 08:36 PT INR POC Glucose 83 Preliminary micro results at discharge 05/08/23 17:11 Blood Culture - Preliminary Blood - Venous No growth after 48 hours. 05/08/23 16:37 Blood Culture - Preliminary Blood - Venous No growth after 48 hours. Discharge Plan Discharge Anticipated Discharge Date/Time: 05/12/23 16:05 Patient Disposition: er Inpatient Rehab Fac Discharge Diagnosis: MRSA UTI Dislodged suprapubic catheter Referrals: Brennen Nguyen MD [Physician] - 1 Week (management of martinez catheter) Discharge Medications: New doxycycline hyclate 100 mg tablet 100 mg PO BID Qty: 22 0RF Continued amlodipine 5 mg tablet 5 mg PO DAILY 90 Days Qty: 90 3RF atorvastatin 10 mg tablet 10 mg PO BEDTIME Qty: 90 3RF metoprolol succinate 200 mg tablet extended release 24 hr 200 mg PO DAILY Qty: 90 3RF furosemide 40 mg tablet 40 mg PO BID 90 Days Qty: 180 3RF Protocol: Hold for SBP< HOLD for SBP < : 90 Rx Instructions: [facility] per Linda Fraga NP. insulin glargine [Lantus U-100 Insulin] 100 unit/mL solution 35 unit subcut BEDTIME melatonin 5 mg Tablet 5 mg PO BEDTIME PRN (Reason: Sleep) PreserVision AREDS 2,148 mcg-113 mg-45 mg-17.4mg Tablet 1 tab PO BID Rx Instructions: administer with AM and PM meals warfarin [Jantoven] 2 mg tablet 2 mg PO WE Protocol: Dose Management Condition: Thursday (Week One) Dose/Route: 2 mg Instruction: 1 x 2 mg tablet Condition: Thursday Dose/Route: 2 mg Instruction: 1 x 2 mg tablet Condition: Thursday Dose/Route: 2 mg Instruction: 1 x 2 mg tablet Condition: Thursday Dose/Route: 1 mg Instruction: 1 x 1 mg tablet Condition: Dose/Route: 2 mg Instruction: 1 x 2 mg tablet Condition: Thursday Dose/Route: 2 mg Instruction: 1 x 2 mg tablet Condition: Thursday Dose/Route: 2 mg Instruction: 1 x 2 mg tablet Condition: Thursday (Week Two) Dose/Route: 2 mg Instruction: 1 x 2 mg tablet Condition: Thursday Dose/Route: 2 mg Instruction: 1 x 2 mg tablet Condition: Thursday Dose/Route: 2 mg Instruction: 1 x 2 mg tablet Condition: Thursday Dose/Route: 1 mg Instruction: 1 x 1 mg tablet Condition: Dose/Route: 2 mg Instruction: 1 x 2 mg tablet Condition: Thursday Dose/Route: 2 mg Instruction: 1 x 2 mg tablet Condition: Thursday Dose/Route: 2 mg Instruction: 1 x 2 mg tablet Protocol Text: Adjustment Start Date: 05/07/23 INR Value: 2.3 INR Date: 05/07/23 Recheck Date: 05/21/23 Additional Instructions: INR is in range continue same dosing balance greens and reds in diet, be consistent warfarin [Jantoven] 1 mg tablet 1 mg PO SUMOTUTHFR Protocol: Dose Management Condition: Thursday (Week One) Dose/Route: 2 mg Instruction: 1 x 2 mg tablet Condition: Thursday Dose/Route: 2 mg Instruction: 1 x 2 mg tablet Condition: Thursday Dose/Route: 2 mg Instruction: 1 x 2 mg tablet Condition: Thursday Dose/Route: 1 mg Instruction: 1 x 1 mg tablet Condition: Dose/Route: 2 mg Instruction: 1 x 2 mg tablet Condition: Thursday Dose/Route: 2 mg Instruction: 1 x 2 mg tablet Condition: Thursday Dose/Route: 2 mg Instruction: 1 x 2 mg tablet Condition: Thursday (Week Two) Dose/Route: 2 mg Instruction: 1 x 2 mg tablet Condition: Thursday Dose/Route: 2 mg Instruction: 1 x 2 mg tablet Condition: Thursday Dose/Route: 2 mg Instruction: 1 x 2 mg tablet Condition: Thursday Dose/Route: 1 mg Instruction: 1 x 1 mg tablet Condition: Dose/Route: 2 mg Instruction: 1 x 2 mg tablet Condition: Thursday Dose/Route: 2 mg Instruction: 1 x 2 mg tablet Condition: Thursday Dose/Route: 2 mg Instruction: 1 x 2 mg tablet Protocol Text: Adjustment Start Date: 05/07/23 INR Value: 2.3 INR Date: 05/07/23 Recheck Date: 05/21/23 Additional Instructions: INR is in range continue same dosing balance greens and reds in diet, be consistent levothyroxine 25 mcg tablet 25 mcg PO DAILY aspirin 81 mg tablet,delayed release (DR/EC) 81 mg PO DAILY (DME) pen needle, diabetic [BD Cathy 2nd Gen Pen Needle] 32 gauge x 5/32 needle See Rx Instructions subcut DAILY Qty: 50 Rx Instructions: As directed (DME) lancets [FreeStyle Lancets] 28 gauge misc See Rx Instructions .ROUTE BID Qty: 100 Rx Instructions: As directed multivitamin [One Daily Multivitamin] Tablet 1 tab PO DAILY Discharge Orders: Discharge Order (Routine); Ordered 05/12/23 Ordered By: Patricia Saleh Diet: Advance to usual diet Activity on Discharge: As tolerated Stand Alone Forms: Patient Portal Discharge page Care Plan Goals: Continue Martinez catheter, care as per rehabilitation staff. Health Concerns: MRSA UTI Dislodged suprapubic catheter Plan of Treatment: Follow-up with urologist for further management a Martinez catheter Take all medications as prescribed Assessment: See discharge summary
[2023-05-12 11:51] LABS: Glucose, Whole Blood 190 mg/dL (60-115)
[2023-05-12] MEDS: Insulin Lispro 100 UNIT/ML 3 ML VIAL SUBCUT ×2 (12:43→17:29)
--- NOTE | 2023-05-12 14:28 | HO.PM.IMPN ---
Subjective Subjective Date of Service: 05/12/23 Review of Systems Follow up abd pain suprapubic catheter out, reg martinez in still with pain , but better Physical Exam Vital Signs: Vital Signs: Last Vital Signs Temp 98.0 F 05/12/23 08:00 Pulse 97 05/12/23 08:00 Resp 19 05/12/23 08:00 BP 160/74 H 05/12/23 08:00 Pulse Ox 97 05/12/23 08:00 O2 Del Method Room Air 05/12/23 08:00 O2 Flow Rate 2 05/09/23 01:06 Oxygen Flow Rate 2 05/08/23 15:18 BMI result Body Mass Index 34.2 Appearing in no acute distress lung sounds are clear to auscultation heart regular rate rhythm, clear S1, S2 positive bowel sounds, abdomen is soft, nontender neuro patient is alert x3, no focal deficits Objective Data Active Medications Acetaminophen (Acetaminophen 325 Mg Tablet) 650 mg PO Q6H PRN PRN Reason: Pain, Mild (Pain Scale 1-3) Last Admin: 05/11/23 08:25 Dose: 650 mg Documented By: JEANA Amlodipine Besylate (Amlodipine Besylate 5 Mg Tablet) 5 mg PO DAILY [facility]; Protocol Last Admin: 05/12/23 08:31 Dose: 5 mg Documented By: IHSAN Aspirin (Aspirin Enteric Coated 81 Mg Tablet.Dr) 81 mg PO DAILY [facility] Last Admin: 05/12/23 08:31 Dose: 81 mg Documented By: IHSAN Atorvastatin Calcium (Atorvastatin Calcium 10 Mg Tablet) 10 mg PO BEDTIME [facility] Last Admin: 05/11/23 21:26 Dose: 10 mg Documented By: KASH Dextrose (Dextrose 50 % 25 Gm/50 Ml Syringe) 25 gm IVPUSH Q15M PRN; Protocol PRN Reason: per Hypoglycemia Standing Ord. Furosemide (Furosemide 40 Mg Tablet) 40 mg PO BID [facility]; Protocol Last Admin: 05/12/23 08:31 Dose: 40 mg Documented By: IHSAN Glucose (Glucose Gel 15 Gm Gel..Gram.) 15 gm PO Q15M PRN; Protocol PRN Reason: per Hypoglycemia Standing Ord. Doxycycline Hyclate 100 mg/ (Sodium Chloride) 250 mls @ 166.67 mls/hr IV Q12H [facility] Last Infusion: 05/12/23 07:24 Dose: 0 mls/hr Documented By: KASH Insulin Glargine (Insulin Glargine,Hum.Rec.Anlog 100 Unit/Ml 10 Ml Vial) 15 unit SUBCUT BEDTIME [facility] Last Admin: 05/11/23 21:25 Dose: 15 unit Documented By: KASH Insulin Glargine (Insulin Glargine,Hum.Rec.Anlog 100 Unit/Ml 10 Ml Vial) 35 unit SUBCUT BEDTIME [facility] Last Admin: 05/11/23 21:25 Dose: 35 unit Documented By: KASH Insulin Human Lispro (Insulin Lispro 100 Unit/Ml 3 Ml Vial) 0 unit SUBCUT QIDACHS [facility]; Protocol Last Admin: 05/12/23 12:43 Dose: 2 unit Documented By: IHSAN Levothyroxine Sodium (Levothyroxine Sodium 25 Mcg Tablet) 25 mcg PO DAILY@0600 [facility] Last Admin: 05/12/23 05:11 Dose: 25 mcg Documented By: KASH Melatonin (Melatonin 3 Mg Tablet) 6 mg PO BEDTIME PRN PRN Reason: Insomnia Metoprolol Succinate (Metoprolol Succinate Er 100 Mg Tab.Er.24h) 200 mg PO DAILY [facility]; Protocol Last Admin: 05/12/23 08:31 Dose: 200 mg Documented By: IHSAN Morphine Sulfate (Morphine Sulfate 4 Mg/Ml Cartridge) 4 mg IVPUSH Q4H PRN; Protocol PRN Reason: Pain, Severe (Pain Scale 7-10) Last Admin: 05/12/23 02:13 Dose: 4 mg Documented By: PEDRITO Multivitamins/Vitamin C (Multivitamin Tablet) 1 tab PO DAILY [facility] Last Admin: 05/12/23 08:31 Dose: 1 tab Documented By: IHSAN Ondansetron HCl (Ondansetron Hcl 4 Mg/2 Ml Vial) 4 mg IVPUSH Q8H PRN PRN Reason: Nausea and Vomiting Pharmacy Consult (Consult Rx Perform Med Rec) 1 each MISCELLANE ONCE PRN PRN Reason: Consult order Sodium Chloride (0.9 % Sodium Chloride Flush 3 Ml Syringe) 3 ml IVFLUSH QSHIFT [facility] Last Admin: 05/12/23 08:32 Dose: 3 ml Documented By: IHSAN Warfarin Sodium (Warfarin Sodium 1 Mg Tablet) 1 mg PO SuMoTuThJonny@1800 [facility] Last Admin: 05/11/23 16:56 Dose: 1 mg Documented By: MAKI Warfarin Sodium (Warfarin Sodium 2 Mg Tablet) 2 mg PO [facility] Labs 05/10/23 08:14 05/10/23 08:14 Labs: Laboratory Results - last 24 hr 05/11/23 05/11/23 05/12/23 16:30 20:27 07:02 PT 15.6 H INR 1.3 H POC Glucose 230 H 213 H 05/12/23 05/12/23 05/12/23 08:07 08:36 11:39 PT INR POC Glucose 62 83 190 H Assessment and Plan (1) Nondisplaced fracture of distal end of fibula: Status: Acute (2) UTI (urinary tract infection): Status: Resolved (3) Fall: Status: Resolved (4) Complication of catheter: Status: Acute Plan This is a 82-year-old with past medical history of permanent atrial fibrillation on Coumadin, right hip osteoarthritis, chronic congestive heart failure with preserved ejection fraction, CKD stage 3, hypothyroidism, insulin-dependent diabetes mellitus, essential hypertension, neurogenic bladder presents to emergency department for complication of suprapubic catheter. Sepsis due to acute MRSA UTI.? Sepsis resolved Blood culture neg after 48hrs ID following rec> 14 days of doxyxycline Closed suprapubic catheter site. Imaging with catheter outside bladder. Urology consultation> rec continuing with martinez catheter, treat UTI and follow up o/p Permanent atrial fibrillation on Coumadin, metorprolol? Goal INR 2-3.? Rate controlled Chronic congestive heart failure with preserved ejection fraction currently compensated. lasix home dose Insulin-dependent type 2 diabetes mellitus with hyperglycemia initiating Accu-Cheks with sliding scale insulin.? Reduce home basal regimen while in the hospital Hypothyroidism on levothyroxine Essential hypertension amlodipine Chronic kidney disease stage 3 creatinine at baseline.? Monitor DVT prophylaxis: On Coumadin Attending Dr. Sean NUÑEZ patient waiting for rehab bed continued hospital stay for safe dispo to rehab Time Spent With Patient Time: Total time managing care of this patient today ____ minutes. Quality Stroke Does the patient have a stroke diagnosis?: No VTE Prior VTE?: No VTE Risk Level:: Medical - moderate - high VTE Device Contraindication: Treatment Not Indicated VTE Drug Contraindication: N/A - Med Ordered
[2023-05-12 15:38] VITALS: BP 147/78; PULSE 97; RESP 18; TEMP 36.7; O2SAT 97
--- NOTE | 2023-05-12 15:49 | MHC.CM.PN ---
[facility] offered pt a bed, pt has accepted, auth is pending. CM will continue to follow for D/C likely tomorrow once auth is obtained.
--- NOTE | 2023-05-12 16:19 | MHC.CM.PN ---
Pt medically cleared for D/C to [facility] for STR, auth obtained. Transportation booked via [facility] at 5:30pm.
[2023-05-12 16:31] LABS: Glucose, Whole Blood 167 mg/dL (60-115)
[2023-05-12] MEDS: Warfarin Sodium 1 MG TABLET PO (17:30)
[2023-05-13] MEDS: Morphine Sulfate 4 MG/ML CARTRIDGE IVPUSH (21:30)
== END 2023-05-12 18:00 | DRG 698 ==
LOC: HO.ED 23:59 → HO.EDOVER 05-09 00:04 → HO.IMC 05-09 02:17
PROVIDERS: Admitting Provider Student in an Organized Health Care Education/Training Program; Emergency Provider Emergency Medicine; PCP Internal Medicine; Visit Provider Nurse Practitioner Acute Care
DX: T83.098A Other mechanical complication of other urinary catheter, initial encounter (principal); A41.02 Sepsis due to Methicillin resistant Staphylococcus aureus; I48.21 Permanent atrial fibrillation; N39.0 Urinary tract infection, site not specified; I13.0 Hypertensive heart and chronic kidney disease with heart failure and stage 1 through stage 4 chronic kidney disease, or unspecified chronic kidney disease; I50.32 Chronic diastolic (congestive) heart failure; Y73.2 Prosthetic and other implants, materials and accessory gastroenterology and urology devices associated with adverse incidents; I25.10 Atherosclerotic heart disease of native coronary artery without angina pectoris; E03.9 Hypothyroidism, unspecified; N31.9 Neuromuscular dysfunction of bladder, unspecified; E11.65 Type 2 diabetes mellitus with hyperglycemia; N18.30 Chronic kidney disease, stage 3 unspecified; E11.22 Type 2 diabetes mellitus with diabetic chronic kidney disease; Z87.440 Personal history of urinary (tract) infections; Z79.4 Long term (current) use of insulin; Z79.01 Long term (current) use of 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; Z79.82 Long term (current) use of aspirin; Z79.890 Hormone replacement therapy; Z79.899 Other long term (current) drug therapy
CPT/HCPCS: 36415; 71045; 72192; 80048; 80053; 81001; 82947; 83605; 85025; 85027; 85610; 87040; 87086; 87088; 87186; 97162; 97530; 99285; C1758; J0692; J0696; J2270; J2405; J2543

== ENCOUNTER → 2023-05-08 23:49 | Outpatient (BNV) | payer MEDICARE, SELFPAY | PROVIDERS: Admitting Provider Student in an Organized Health Care Education/Training Program; Emergency Provider Emergency Medicine; Visit Provider Internal Medicine | DX: T85.9XXA Unspecified complication of internal prosthetic device, implant and graft, initial encounter (principal); A49.02 Methicillin resistant Staphylococcus aureus infection, unspecified site | CPT/HCPCS: 99221 ==

== ENCOUNTER → 2023-05-08 23:49 | Outpatient (BNV) | payer MEDICARE, SELFPAY | PROVIDERS: Admitting Provider Student in an Organized Health Care Education/Training Program; Emergency Provider Emergency Medicine; Visit Provider Urology | DX: T85.9XXA Unspecified complication of internal prosthetic device, implant and graft, initial encounter (principal); N39.0 Urinary tract infection, site not specified; Z79.01 Long term (current) use of 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 | CPT/HCPCS: 99222 ==

== ENCOUNTER → 2023-05-08 23:49 | Outpatient (BNV) | payer MEDICARE, SELFPAY | PROVIDERS: Admitting Provider Student in an Organized Health Care Education/Training Program; Emergency Provider Emergency Medicine; Visit Provider Student in an Organized Health Care Education/Training Program | DX: S82.839A Other fracture of upper and lower end of unspecified fibula, initial encounter for closed fracture (principal); N39.0 Urinary tract infection, site not specified; W19.XXXA Unspecified fall, initial encounter; T85.9XXA Unspecified complication of internal prosthetic device, implant and graft, initial encounter | CPT/HCPCS: 99222; 99232; 99239; 99499 ==

== ENCOUNTER 2023-06-02 15:14 | Outpatient (AMB) | payer MEDICARE, SELFPAY ==
--- NOTE | 2023-06-02 15:18 | AM.OFFVISNUR ---
Intake Intake Visit Reasons: martinez insertion Allergies No Known Allergies [No Known Allergies*] Allergy (Verified 05/08/23 02:10) Office Procedures Bladder/Catheter Procedure Details: pt presents to office for martinez cath insertion after martinez fell out at home- 18 fr david cath with 10 ml balloon and flip valve given, pt declined night bag. has appt 06/[address] Magallon to discuss sp tube replacement. martinez cath care orders faxed to [facility] service as well. [id number] Temporary Bladder Catheter Procedure code (CPT) selection complete Coding Diagnoses CPT Codes Bladder/Catheter Procedure - CPT: 22106-[id number] Temporary Bladder Catheter ([id number]) Assessment & Plan Assessment & Plan Medications: Discontinued warfarin 2 mg See Protocol PO Q48H 90 tabs 0RF warfarin 1 mg See Protocol PO Q48H 90 days 45 tabs 1RF
== END 2023-06-02 15:50 | disposition home or self-care (01) ==
PROVIDERS: PCP Internal Medicine; Visit Provider Urology
DX: N31.9 Neuromuscular dysfunction of bladder, unspecified (principal); Z93.59 Other cystostomy status

== ENCOUNTER → 2023-06-02 15:14 | Outpatient (BNVA) | payer MEDICARE, SELFPAY | PROVIDERS: PCP Internal Medicine; Visit Provider Urology | DX: N31.9 Neuromuscular dysfunction of bladder, unspecified (principal) | CPT/HCPCS: 51702 ==

== ENCOUNTER → 2023-06-04 12:07 | Outpatient (BNVA) | payer MEDICARE, SELFPAY | PROVIDERS: PCP Internal Medicine; Visit Provider Internal Medicine ==

== ENCOUNTER → 2023-06-08 13:42 | Outpatient (BNVA) | payer MEDICARE, SELFPAY | PROVIDERS: PCP Internal Medicine; Visit Provider Internal Medicine ==

== ENCOUNTER 2023-06-11 10:07 | Outpatient (AMB) | payer MEDICARE, SELFPAY ==
--- NOTE | 2023-06-11 10:08 | MHC.OFFVIS ---
Intake Intake Visit Reasons: ER Follow up Intake Note: Patient is present for Telephone ER Follow up Urology Med: None Antibiotic Allergy:None Blood Thinner: Warfarin, Aspirin Pharmacy: [facility] Allergies No Known Allergies [No Known Allergies*] Allergy (Verified 06/11/23 10:09) HPI HPI Comments History of Present Illness Details Belen is a very pleasant female. 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 Symptoms have been present since since 2014. Current therapy includes 02/18 SPT and botox 07/21 Botox 100mg 12/22 Botox, 07/22 Botox, 05/22 Botox Prior treatment(s) included anticholinergics- , Many years ago - bladder sling suspension for stress incontinence. Obstetric history , 2, Para, 2. The frequency of the symptom(s) occur several times a day. Associated medical conditions diabetes Yes insulin since 2015 Prior testing included 09/18 Cysto - NAD. Therapeutic plan - continue tube change [facility] Medical History Atrial fibrillation CAD (coronary artery disease) CKD (chronic kidney disease) Congestive heart failure Current use of anticoagulant therapy Diabetes Hip pain Hypertension Hypothyroidism Hypotonic neurogenic bladder Leg wound, left MRSA infection Osteoarthritis of right hip PAF (paroxysmal atrial fibrillation) Recurrent UTI Urinary incontinence Varicose vein of leg Surgical History H/O heart artery stent H/O nasal polypectomy History of tonsillectomy and adenoidectomy History of tubal ligation Hx of cholecystectomy Family History Father Hx of angina pectoris Myocardial infarction Mother Ovarian cancer Stomach cancer Maternal Grandfather Hardening of the arteries of the heart Social History Household Members: Children Household Members Other:: daughter Housing: House Do you presently have visiting nurse or other home services: Yes Alcohol intake: never Patient Tobacco Use Status: Never used Tobacco Second Hand Smoke Exposure: No Advance Directives Date on File: 08/27/22 service: No Current occupational status: retired Review of Systems Const All systems reviewed & are unremarkable except as noted in HPI and below Reports no additional complaints Resp Reports no additional complaints GI Reports no additional complaints Reports as per HPI Musc Reports no additional complaints Physical Exam Telemedicine evaluation Appropriate responses Regular breathing rate and rhythm HEENT Head: Yes normal to inspection Ears: hearing grossly normal bilaterally Eyes General: appearance normal, both eyes and all related structures Neck Neck: Yes normal visual inspection Chest Chest palpation & inspection: normal inspection of the chest Resp Effort & Inspection: normal respiratory effort and able to speak in complete sentences Assessment & Plan Assessment & Plan (1) Diabetic neuropathy associated with diabetes mellitus due to underlying condition: Code(s): E08.40 - Diabetes mellitus due to underlying condition with diabetic neuropathy, unspecified (2) Hypotonic neurogenic bladder: Code(s): N31.9 - Neuromuscular dysfunction of bladder, unspecified Plan Risks, benefits and alternatives to therapy were discussed. These include but are not limited to infection, bleeding, damage to local organs and tissues, need for further interventions. Anesthetic risks regarding cardiac arrhythmia, blood clots, and potential mortality were discussed. The patient understands the typical recovery time and the outpatient nature of the procedure. After consideration of these risks the patient gives full informed consent and they wish to move ahead with the procedure. Cystoscopy with suprapubic tube placement Medications: Discontinued warfarin 2 mg See Protocol PO Q48H 90 tabs 0RF warfarin 1 mg See Protocol PO Q48H 90 days 45 tabs 1RF Patient Instructions: Imaging studies, laboratory and physical exam results were discussed and reviewed in detail. No major barriers to patient understanding were identified. An opportunity to ask questions regarding the treatment plan was provided. All questions were answered. The patient expressed understanding and agreement with the above treatment plan. The patient is aware they should contact our office by phone for worsening of their current condition or the appearance of new urologic symptoms. Compliance is encouraged with any medications and followup testing that is ordered. It is a privilege to participate in the urologic care of your patient. If you have any questions or concerns regarding treatment for the above conditions, or other urologic issues, please do not hesitate to contact me. The office telephone contact is [phone]. This note is constructed using voice recognition software. While every effort has been made to ensure accuracy noodle press operator errors may have been included. Yours sincerely, Dr Keith Sharma MD, [facility] - Urology Providers of Expert, Compassionate Care for the Genitourinary System Telehealth Telehealth Location of provider rendering services: practice address Location of patient: address on file Patient Identification confirmed using: Name, : Yes Telehealth method: video Patient verbally consented to treatment: Yes Patient verbally consented to billing insurance company: Yes Patient informed of any privacy concerns related to visit: Yes Coding Level of Care Code Tele Est Pt Level 4 (21555) Diagnoses Diabetic neuropathy associated with diabetes mellitus due to underlying condition E08.40 Hypotonic neurogenic bladder N31.9
== END 2023-06-11 10:35 | disposition home or self-care (01) ==
LOC: HO.HUSH 10:07
PROVIDERS: PCP Internal Medicine; Visit Provider Urology
DX: N31.9 Neuromuscular dysfunction of bladder, unspecified (principal); E08.40 Diabetes mellitus due to underlying condition with diabetic neuropathy, unspecified
CPT/HCPCS: 99213

== ENCOUNTER → 2023-06-11 10:07 | Outpatient (BNVA) | payer MEDICARE, SELFPAY | PROVIDERS: PCP Internal Medicine; Visit Provider Urology | DX: Z01.818 Encounter for other preprocedural examination (principal); M16.11 Unilateral primary osteoarthritis, right hip; N39.0 Urinary tract infection, site not specified; B95.62 Methicillin resistant Staphylococcus aureus infection as the cause of diseases classified elsewhere; I50.9 Heart failure, unspecified; I48.21 Permanent atrial fibrillation; E08.40 Diabetes mellitus due to underlying condition with diabetic neuropathy, unspecified; N31.9 Neuromuscular dysfunction of bladder, unspecified; Z93.59 Other cystostomy status | CPT/HCPCS: 99212 ==

== ENCOUNTER 2023-06-11 13:22 | Outpatient (AMB) | payer MEDICARE, SELFPAY ==
--- NOTE | 2023-06-11 13:38 | A.OFFVIS_ITS ---
Intake Intake Visit Reasons: discuss NIR Intake Note: Belen is an 82 year old female who presents today to discuss having a Right Total Hip Arthroplasty. She is s/p right distal fibula fx, DOI 08/15/22. Completed cardiac workup, considered intermediate risk. Allergies No Known Allergies [No Known Allergies*] Allergy (Verified 06/11/23 14:50) HPI discuss NIR HPI Details Belen is an 82 year old Diabetic woman who presents to discuss a right NIR. She is S/P right distal fibular fracture, DOI: 08/15/22. She has been seen by Cardiology and is considered an intermediate risk for surgery. She is seen today in a wheelchair, but she says she only uses a walker at home. She has pain with daily activity, worse with climbing into and out of bed or walking. She can barely walk and spends most of her time in her wheelchair. She was recently hospitalized for a UTI with MRSA, she continues to have a urinary catheter in place. She needs to have her catheter replaced but is unsure if she can have this prior to her NIR. She denies any fever or chills She was determined to be an intermediate cardiac risk, and her most recent HgA1c was 6.9% on 03/03/23. She is scheduled for a right NIR on 07/07/23 [facility] Medical History Atrial fibrillation CAD (coronary artery disease) CKD (chronic kidney disease) Congestive heart failure Current use of anticoagulant therapy Diabetes Hip pain Hypertension Hypothyroidism Hypotonic neurogenic bladder Leg wound, left MRSA infection Osteoarthritis of right hip PAF (paroxysmal atrial fibrillation) Recurrent UTI Urinary incontinence Varicose vein of leg Surgical History H/O heart artery stent H/O nasal polypectomy History of tonsillectomy and adenoidectomy History of tubal ligation Hx of cholecystectomy Family History Father Hx of angina pectoris Myocardial infarction Mother Ovarian cancer Stomach cancer Maternal Grandfather Hardening of the arteries of the heart Social History Household Members: Children Household Members Other:: daughter Housing: House Do you presently have visiting nurse or other home services: Yes Alcohol intake: never Patient Tobacco Use Status: Never used Tobacco Second Hand Smoke Exposure: No Advance Directives Date on File: 08/27/22 service: No Current occupational status: retired Review of Systems Const All systems reviewed & are unremarkable except as noted in HPI and below Physical Exam Const General: no acute distress and alert Orientation/consciousness: patient oriented x3 Neuro General: patient oriented x3 Extrem Other: Right Hip: Severe + Impingement test Severely antalgic gait Psych Appearance: grossly normal Affect: normal affect Attitude: cooperative Results AMB INR Fingerstick AMB INR Fingerstick 1.7 Last Edit by Zoradia Schultz RN on 06/11/23 13:45 [facility] Results Reviewed Results Reviewed: I personally reviewed relevant radiographs. Severe right hip OA Assessment & Plan Assessment & Plan (1) Osteoarthritis of right hip: Code(s): M16.11 - Unilateral primary osteoarthritis, right hip Plan: This is an 82 year old woman with severe right hip OA. She has pain with daily activity, ambulates using a walker, and is limited in her ADLs. She is unable to function comfortably and feels her QOL is diminished. I recommend a right NIR. SHe has a h/o CHF and MRSA and an indweeling supra-pubic catheter. 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 SHe is planning on having a supra-pubic catheter replced with Dr Sharma in the coming weeks. She feels her quality of life is poor. She understands the risks of infection and risks associated with CHF and DM. SHe and her family want to proceed forward regardless. I discussed the risks, benefits, and alternatives including, but not limited to, the risk of pain, infection, stiffness, need for further surgery as well as potential medical complications such as blood clots, pulmonary embolism and cardiac complications. I discussed the recovery timeline and process as well as the importance of PT. Belen wishes to proceed forward. She was determined to be an intermediate cardiac risk, and her most recent HgA1c was 6.9% on 03/03/23. Her surgery is scheduled for 07/07/23. (2) Suprapubic catheter: Code(s): Z93.59 - Other cystostomy status Plan: She has a catheter in place and was recently hospitalized for a MRSA UTI. She needs to have this replaced by Dr. Crews. I recommend this be performed prior to her NIR on 07/07/23. I will reach out to Dr. Crews concerning this. (3) MRSA infection: Code(s): A49.02 - Methicillin resistant Staphylococcus aureus infection, unspecified site (4) Diabetes: Code(s): E11.9 - Type 2 diabetes mellitus without complications Plan: Her most recent HgA1c was 6.9% on 03/03/23 (5) Congestive heart failure: Code(s): I50.9 - Heart failure, unspecified Plan: Cardiac clearance: intermediate risk (6) Permanent atrial fibrillation: Code(s): I48.21 - Permanent atrial fibrillation Plan Scribed for German Hines MD by Adalid Pollard medical radiation tech, on 06/11/23 at 1:45 PM, EST. Medications: Discontinued warfarin 2 mg See Protocol PO Q48H 90 tabs 0RF warfarin 1 mg See Protocol PO Q48H 90 days 45 tabs 1RF Coding Level of Care Code Est Pt Level 4 (30071) Diagnoses Osteoarthritis of right hip M16.11 Suprapubic catheter Z93.59 MRSA infection A49.02 Diabetes E11.9 Congestive heart failure I50.9 Permanent atrial fibrillation I48.21
== END 2023-06-11 14:40 | disposition home or self-care (01) ==
PROVIDERS: PCP Internal Medicine; Visit Provider Orthopaedic Surgery
DX: M16.11 Unilateral primary osteoarthritis, right hip (principal)
CPT/HCPCS: 99214

== ENCOUNTER → 2023-06-16 11:19 | Outpatient (BNVA) | payer MEDICARE, SELFPAY | PROVIDERS: PCP Internal Medicine; Visit Provider Internal Medicine ==

== ENCOUNTER 2023-06-22 13:47 | Day surgery (SDC) | payer MEDICARE, SELFPAY ==
[2023-06-22 14:49] LABS: Glucose, Whole Blood 95 mg/dL (60-115)
[2023-06-22 14:55] LABS: INTERNATIONAL NORM RATIO 1.1 (0.9-1.1); Prothrombin Time 13.5 SEC (11.1-13.3)
[2023-06-22 14:57] VITALS: BMI 32.8
[2023-06-22 15:00] VITALS: BP 165/93; PULSE 87; RESP 18; TEMP 37.1; O2SAT 94
--- NOTE | 2023-06-22 16:03 | PC.NURSE ---
report given to anne technical support internship at this time.
--- NOTE | 2023-06-22 16:21 | MHC.SHP ---
Pre-Procedural Eval Section A Date of Service: 06/22/23 The patient is an INPATIENT: No Changes since office visit: No Cold of Flu in the past 2 weeks, No New Medical Problems, No Changes in Medication and No Patient answered all questions The History & Physical has been completed within 30 days and I have reviewed it.: No Section B Chief Complaint: RE-INSERT OF SUPRABUBIC CATH - IN OR ROOM 4 Details of Present Illness: suprapubic catheter had fallen out and needs to be replaced Relevant Family History (Specify if Yes): No Relevant Social History: None Present Medications: see Short Stay Collaborative assessment Medical History: Significant History History of Previous Operations: Relevant previous surgery/procedure and date(s) Allergies: Allergies Allergy/AdvReac Type Severity Reaction Status Date / Time No Known Allergies Allergy Verified 06/22/23 15:03 [No Known Allergies*] Review of Systems Sugical H&P ROS: Negative: Constitution, Cardiovascular, Respiratory, Neurological, Psychiatric, Hem-Onc, Allergic/Immunologic, Gastrointestinal, Genitourinary, Musculoskeletal, Integumentary, Endocrine and Eyes/Ears/Nose/Throat Exam Surgical H&P Exam: Normal: HEENT, Normal: Heart, Normal: Lungs, Normal: Extremities, Normal: Abdomen, Normal: Skin and Normal: Neurological Plan Diagnosis/Plan: Unchanged (SPT placement) I have reviewed the history and physical and performed a pertinent physical examination on my patient. No changes have occurred unless specified. Time Spent With Patient Time: Total time managing care of this patient today ____ minutes.
--- NOTE | 2023-06-22 16:40 | HO.ANESPROP2 ---
HPI - Anesthesia Eval Consult details Narrative: insertion suprapubic tube PMFSH Active Problems Active Problems: All Active Problems (Updated 06/11/23 @ 13:51 by Adalid Pollard) Suprapubic catheter (Acute) MRSA infection (Acute) Osteoarthritis of right hip (Acute) Congestive heart failure (Acute) Permanent atrial fibrillation (Acute) Closed fracture of right distal fibula (Acute) Hip pain (Acute) Preop cardiovascular exam (Acute) Diabetic neuropathy associated with diabetes mellitus due to underlying condition (Acute) Hypotonic neurogenic bladder (Acute) CAD (coronary artery disease) (Acute) PAF (paroxysmal atrial fibrillation) (Acute) Shortness of breath (Acute) COVID-19 virus infection (Acute) DOROTHY (acute kidney injury) (Acute) Atrial fibrillation (Acute) Fungal infection (Acute) Past Medical History Medical History Atrial fibrillation CAD (coronary artery disease) CKD (chronic kidney disease) Congestive heart failure Current use of anticoagulant therapy Diabetes Hip pain Hypertension Hypothyroidism Hypotonic neurogenic bladder Leg wound, left MRSA infection Osteoarthritis of right hip PAF (paroxysmal atrial fibrillation) Recurrent UTI Urinary incontinence Varicose vein of leg Family History Family History Father Hx of angina pectoris Myocardial infarction Mother Ovarian cancer Stomach cancer Maternal Grandfather Hardening of the arteries of the heart Family history of problems with anesthesia: No Surgical History Surgical History H/O heart artery stent H/O nasal polypectomy History of tonsillectomy and adenoidectomy History of tubal ligation Hx of cholecystectomy History of Problems with Anesthesia: No Social History Social History Household Members: Children Household Members Other:: daughter Housing: House Do you presently have visiting nurse or other home services: Yes Alcohol intake: never Patient Tobacco Use Status: Never used Tobacco Second Hand Smoke Exposure: No Advance Directives: Yes Advance Directives Date on File: 08/27/22 Nutrition Risks: No Nutritional Risk service: No Current occupational status: retired Meds Allergies Allergy/AdvReac Type Severity Reaction Status Date / Time No Known Allergies Allergy Verified 06/22/23 15:03 [No Known Allergies*] Active Medications: Current Medications Levofloxacin (Levaquin) 500 mg in 100 mls @ 100 mls/hr IV PREOP ONE Stop: 06/22/23 17:19 Home Medications Medication Instructions Recorded Confirmed Last Taken Type levothyroxine 25 mcg tablet 25 mcg PO DAILY 09/05/20 06/22/23 Unknown History aspirin 81 mg tablet,delayed 81 mg PO DAILY 09/11/21 06/22/23 Unknown History release pen needle, diabetic 32 gauge x #50 ea 12/31/21 06/16/23 Unknown History (BD Cathy 2nd Gen Pen Needle) multivitamin (One Daily 1 tab PO DAILY 09/15/22 06/22/23 Unknown History Multivitamin tablet) lancets 28 gauge (FreeStyle #100 ea 09/29/22 06/16/23 Unknown History Lancets) vitamins A,C,X-zrug-wkulrb 2,148 1 tab PO BID 05/09/23 06/22/23 Unknown History mcg-113 mg-45 mg-17.4 mg tablet (PreserVision AREDS) warfarin 1 mg tablet (Jantoven) 1 mg PO SUMOTUTHFRSA 05/09/23 06/22/23 Unknown History warfarin 2 mg tablet (Jantoven) 2 mg PO WE 05/09/23 06/22/23 06/17/23 History insulin glargine 100 unit/mL 37 unit subcut BEDTIME 06/04/23 06/22/23 Unknown History subcutaneous solution (Lantus U-100 Insulin) melatonin 5 mg tablet 10 mg PO BEDTIME PRN Sleep 06/04/23 06/22/23 Unknown History famotidine 20 mg tablet (Pepcid) 20 mg PO BID 06/08/23 06/22/23 Unknown History furosemide 20 mg tablet 20 mg PO DAILY 06/11/23 06/22/23 Unknown History Exam Exam Date and Time: June 22, 2023 1640 Height,Weight and Vital Signs: Height 5 ft 5.5 in Weight 90.718 kg Last Vital Signs Temp 98.8 F 06/22/23 15:00 Pulse 87 06/22/23 15:00 Resp 18 06/22/23 15:00 BP 165/93 H 06/22/23 15:00 Pulse Ox 94 06/22/23 15:00 O2 Del Method Room Air 06/22/23 15:00 Pertinent Lab Results Pertinent Lab Results: Laboratory Tests 06/22/23 06/22/23 14:37 14:46 PT 13.5 H INR 1.1 POC Glucose 95 Airway Mallampati Class: II TM Dist: <=3cm Neck ROM: Full Denture: Upper Heart: ok. see above Lungs: ok Assessment and Plan Assessment Anesthesia Assessment: Anesthesia Plan Discussed and Chart Reviewed Final Anesthetic Review Family History of Problems with Anesthesia: No History of Problems with Anesthesia: No NPO: Yes ASA Class: IV Final Preanesthetic Review: No Changes in Pt Med Stat, Meds/Allgs Chart Reviewed, Consent Obtained/Reviewed and Anes Risks/Benef Reviewed Patient Risk: High Procedure Risk: Low Anesthetic Plan Anesthetic Plan: MAC: and Agree w/ Assess. and Plan Disposition: Standard PACU
--- NOTE | 2023-06-22 17:25 | W.PM.OPN ---
Operative Note Operative Note Date of Service: 06/22/23 Narrative: PreOperative Diagnosis:?neurogenic bladder Post Operative Diagnosis:?neurogenic bladder Procedure:? 1. Cystoscopy 2. Suprapubic tube placement Surgeon: Dr Keith Sharma Anesthesia:?Sedation plus local Indications for procedure: Prior SPT - displaced by visiting nurse Procedure: After informed consent was verified the patient was brought to the operating room and placed in a supine position.? Anesthesia was administered per protocol. The patient was placed in a modified dorsal lithotomy position and prepped and draped in a sterile fashion. A safety pause was performed confirming patient identity, procedure and antibiotics. A 22 Solomon Islander cystoscope was inserted per urethra. Bladder was examined in its entirety. No abnormalities seen. Air bubble was located at the dome of the bladder. A finder needle was inserted 2 fingerbreaths above the symphysis pubis on the abdomen into the bladder.? The needle was visualized in the bladder via cystoscopy. US performed on the abdomen and no bowel seen above the bladder. Local anesthetic was infiltrated subcutaneously around the needle introduction site. A small, 1cm horizontal incision was made.? A trocar introducer was advanced through the abdominal wall into the bladder under visualization. The obturator was removed and a 16 Fr martinez catheter placed. 7cc was used to inflate the balloon. The external portion of the trocar was removed. Dressing was placed, the bladder was emptied, and a drainage bag was attached. The patient tolerated the procedure and was transferred in stable condition to the recovery area. Suprapubic tube will be changed in 1 month with a follow-up office visit.
[2023-06-22 17:41] VITALS: BP 120/69; PULSE 78; RESP 18; TEMP 36.8; O2SAT 95
[2023-06-22 17:56] VITALS: BP 127/70; PULSE 86; RESP 21; O2SAT 98
[2023-06-22 18:11] VITALS: BP 143/92; PULSE 82; RESP 18; TEMP 37; O2SAT 95
== END 2023-06-22 19:20 | disposition home or self-care (01) ==
PROVIDERS: Anesthesiology; PCP Internal Medicine; Visit Provider Urology
PROC: (CPT 51102; principal; 2023-06-22 16:10)
DX: Z46.6 Encounter for fitting and adjustment of urinary device (principal); N31.9 Neuromuscular dysfunction of bladder, unspecified; E11.22 Type 2 diabetes mellitus with diabetic chronic kidney disease; I13.0 Hypertensive heart and chronic kidney disease with heart failure and stage 1 through stage 4 chronic kidney disease, or unspecified chronic kidney disease; N18.9 Chronic kidney disease, unspecified; I50.9 Heart failure, unspecified; I48.0 Paroxysmal atrial fibrillation; M25.551 Pain in right hip; M16.11 Unilateral primary osteoarthritis, right hip; Z79.4 Long term (current) use of insulin; Z79.82 Long term (current) use of aspirin; Z79.01 Long term (current) use of 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
CPT/HCPCS: 51102; 36415; 76998; 82947; 85610; J1956; J2795; J3010

== ENCOUNTER → 2023-06-22 13:47 | Outpatient (BNV) | payer MEDICARE, SELFPAY | PROVIDERS: PCP Internal Medicine; Visit Provider Urology | DX: N31.9 Neuromuscular dysfunction of bladder, unspecified (principal) | CPT/HCPCS: 51040 ==

== ENCOUNTER → 2023-06-23 11:17 | Outpatient (BNVA) | payer MEDICARE, SELFPAY | PROVIDERS: PCP Internal Medicine; Visit Provider Internal Medicine ==

== ENCOUNTER → 2023-06-30 09:52 | Outpatient (BNVA) | payer MEDICARE, SELFPAY | PROVIDERS: PCP Internal Medicine; Visit Provider Internal Medicine ==

== ENCOUNTER 2023-07-02 12:27 | Outpatient (AMB) | payer MEDICARE, SELFPAY ==
--- NOTE | 2023-07-02 12:32 | A.OFFVIS_ITS ---
Intake Intake Visit Reasons: Preop-RT NIR 07/14/23 NE Intake Note: Belen 82 yr old female presents today for her Pre-op visit for her right NIR from 07/14/23. Pain management agreement signed and review. Allergies No Known Allergies [No Known Allergies*] Allergy (Verified 07/02/23 12:38) Medication List - Last Reconciled 07/02/23 by Ronni Sharpe PA-C amlodipine 10 mg (2 x 5 mg) PO DAILY 90 days aspirin 81 mg PO DAILY atorvastatin 10 mg PO BEDTIME furosemide 20 mg PO DAILY insulin glargine (Lantus U-100 Insulin) 37 units subcut BEDTIME insulin lispro (Humalog KwikPen (U-100) Insulin) subcut lancets (FreeStyle Lancets) As directed levothyroxine 25 mcg PO DAILY magnesium hydroxide (Milk of Magnesia) 400 mg PO DAILY PRN melatonin 10 mg PO BEDTIME PRN metoprolol succinate ER 200 mg PO DAILY multivitamin (One Daily Multivitamin tablet) 1 tab PO DAILY pen needle, diabetic (BD Cathy 2nd Gen Pen Needle) As directed sulfamethoxazole-trimethoprim 800-160 mg (Bactrim DS) 1 tab PO DAILY PRN vitamins A,C,H-ikxm-akgqor 2,148 mcg-113 mg-45 mg-17.4mg (PreserVision AREDS) 1 tab PO BID warfarin (Jantoven) 1 mg See Protocol PO 2XW warfarin (Jantoven) 2 mg See Protocol PO 5XW HPI HPI Comments History of Present Illness Details Ms Brady presents to the office today for preop visit. She is scheduled for right total hip arthroplasty with Dr. Hines. She continues to have ongoing pain and difficulty with ambulation in the right hip, which is affecting her quality of life; therefore, she has elected to move forward with surgery. She has pain with daily activity, worse with climbing into and out of bed or walking. She can barely walk and spends most of her time in her wheelchair. She was recently hospitalized for a UTI with MRSA, she continues to have a urinary catheter in place. She recently had her catheter replaced. She was determined to be an intermediate cardiac risk, and her most recent HgA1c was 6.9% on 03/03/23. ? [facility] Medical History (Updated 06/30/23 @ 12:03 by Linn Willouhgby RN) Atrial fibrillation CAD (coronary artery disease) CKD (chronic kidney disease) Congestive heart failure Current use of anticoagulant therapy CVA (cerebral vascular accident) Diabetes Elevated cholesterol Hip pain Hypertension Hypothyroidism Hypotonic neurogenic bladder Leg wound, left MRSA infection Myocardial infarction Neurogenic bladder Neuropathy Osteoarthritis of right hip PAF (paroxysmal atrial fibrillation) Recurrent UTI Shingles Urinary incontinence Varicose vein of leg Surgical History (Updated 06/30/23 @ 12:01 by Linn Willoughby RN) H/O heart artery stent H/O nasal polypectomy History of left knee replacement History of right knee joint replacement History of tonsillectomy and adenoidectomy History of tubal ligation Hx of cholecystectomy Family History Father Hx of angina pectoris Myocardial infarction Mother Ovarian cancer Stomach cancer Maternal Grandfather Hardening of the arteries of the heart Social History Household Members: Children Household Members Other:: daughter Housing: House Are you a primary day care teacher to a significant other at home: No Do you presently have visiting nurse or other home services: Yes (meals on wheels and VNA) Alcohol intake: never Patient Tobacco Use Status: Never used Tobacco Second Hand Smoke Exposure: No Advance Directives Date on File: 08/27/22 service: No Current occupational status: retired Review of Systems Const All systems reviewed & are unremarkable except as noted in HPI and below Physical Exam Const General: cooperative and no acute distress Orientation/consciousness: patient oriented x3 HEENT Head: Yes normal to inspection, Yes normocephalic and Yes atraumatic Eyes General: appearance normal, both eyes and all related structures Neck Neck: Yes normal visual inspection and Yes no lymphadenopathy Resp Effort & Inspection: normal respiratory effort and able to speak in complete sentences Cardio Rate: regular rate Peripheral pulses: Peripheral pulses 2+ throughout GI Inspection: Yes normal to inspection Palpation (GI): Soft to palpation Skin General skin exam: no rashes or lesions noted Neuro General: patient oriented x3 Extrem Other: Right hip: Normal to inspection. She has no rashes or skin abrasion. She has discomfort with ROM hip. NVI. Psych Appearance: grossly normal Mental Status: mental status grossly normal Assessment & Plan Assessment & Plan (1) Osteoarthritis of right hip: Code(s): M16.11 - Unilateral primary osteoarthritis, right hip Plan I discussed in detail the procedure and what to expect pre and post operatively. We discussed the risks, benefits and alternatives to the surgery as well as the rehabilitation course. The risks; which include, but are not limited to infection, bleeding, nerve injury, ongoing pain, swelling, and stiffness, perioperative risk of injury to bones and soft tissues, and blood clots. I?ve answered all questions and with their understanding they have consented to move forward with Right total hip arthroplasty with Dr. Hines Patient will be bridged with Lovenox-she will take her last dose of Coumadin tonight. Medications: Discontinued warfarin 2 mg See Protocol PO Q48H 90 tabs 0RF warfarin 1 mg See Protocol PO Q48H 90 days 45 tabs 1RF Patient Instructions: Scribed for Ronni Sharpe PA-C, by Wilbert Sy medical transcription radiology, on 07/02/2023 at 12:45 PM RACHEL. Ronni Aly PA-C, have personally reviewed and agree with the information entered by the scribe. Coding Level of Care Code Est Pt Level 3 (52423) Diagnoses Osteoarthritis of right hip M16.11
== END 2023-07-02 13:05 | disposition home or self-care (01) ==
PROVIDERS: PCP Internal Medicine; Visit Provider Physician Assistant
DX: M16.11 Unilateral primary osteoarthritis, right hip (principal)
CPT/HCPCS: 99024

== ENCOUNTER → 2023-07-02 12:27 | Outpatient (BNVA) | payer MEDICARE, SELFPAY | PROVIDERS: PCP Internal Medicine; Visit Provider Physician Assistant ==

== ENCOUNTER 2023-07-07 09:34 | Inpatient (IN) | payer MEDICARE, SELFPAY ==
[2023-06-30 12:35] VITALS: BP 150/73; PULSE 93; RESP 16; O2SAT 96; BMI 33.3
--- NOTE | 2023-06-30 12:52 | HO.ANESPROP2 ---
Documented by User: Torri Carl NP 07/03/23 08:43 HPI - Anesthesia Eval Consult details Narrative: 82yo F for Right Hip Total Replacement Cardiac cleared PCP cleared Pt with higher risk. Pt and daughter verbalized understanding. Discussed possible spinal vs general Coumadin for afib. Lovenox bridge. FBS ~ 80-140 Chronic suprapubic tube related infections. Chronic LE edema 2+ s/p SPT change 05/2023 with MAC No recent illness No CP/SOB with very limited activity. PMFSH Active Problems Active Problems: All Active Problems (Updated 06/30/23 @ 12:03 by Linn Willoughby RN) Fungal infection (Acute) Atrial fibrillation (Acute) DOROTHY (acute kidney injury) (Acute) COVID-19 virus infection (Acute) Shortness of breath (Acute) Diabetic neuropathy associated with diabetes mellitus due to underlying condition (Acute) Preop cardiovascular exam (Acute) Hip pain (Acute) Closed fracture of right distal fibula (Acute) Permanent atrial fibrillation (Acute) Suprapubic catheter (Acute) MRSA infection (Acute) Osteoarthritis of right hip (Acute) Congestive heart failure (Acute) Hypotonic neurogenic bladder (Acute) CAD (coronary artery disease) (Acute) PAF (paroxysmal atrial fibrillation) (Acute) Past Medical History Medical History Atrial fibrillation CAD (coronary artery disease) CKD (chronic kidney disease) Congestive heart failure Current use of anticoagulant therapy CVA (cerebral vascular accident) Diabetes Elevated cholesterol Hip pain Hypertension Hypothyroidism Hypotonic neurogenic bladder Leg wound, left MRSA infection Myocardial infarction Neurogenic bladder Neuropathy Osteoarthritis of right hip PAF (paroxysmal atrial fibrillation) Recurrent UTI Shingles Urinary incontinence Varicose vein of leg Family History Family History Father Hx of angina pectoris Myocardial infarction Mother Ovarian cancer Stomach cancer Maternal Grandfather Hardening of the arteries of the heart Family history of problems with anesthesia: No Surgical History Surgical History H/O heart artery stent H/O nasal polypectomy History of left knee replacement History of right knee joint replacement History of tonsillectomy and adenoidectomy History of tubal ligation Hx of cholecystectomy History of Problems with Anesthesia: No Social History Social History Household Members: Children Household Members Other:: daughter Housing: House Are you a primary ambulatory care coordinator to a significant other at home: No Do you presently have visiting nurse or other home services: Yes (meals on wheels and VNA) Alcohol intake: never Patient Tobacco Use Status: Never used Tobacco Second Hand Smoke Exposure: No Advance Directives Date on File: 08/27/22 service: No Current occupational status: retired [employer] Allergies Allergy/AdvReac Type Severity Reaction Status Date / Time No Known Allergies Allergy Verified 07/07/23 10:31 [No Known Allergies*] Home Medications Medication Instructions Recorded Confirmed Last Taken Type levothyroxine 25 mcg tablet 25 mcg PO DAILY 09/05/20 07/02/23 07/07/23 06:00 History aspirin 81 mg tablet,delayed 81 mg PO DAILY 09/11/21 07/02/23 07/02/23 History release pen needle, diabetic 32 gauge x #50 ea 12/31/21 07/02/23 Unknown History (BD Cathy 2nd Gen Pen Needle) multivitamin (One Daily 1 tab PO DAILY 09/15/22 07/02/23 07/06/23 History Multivitamin tablet) lancets 28 gauge (FreeStyle #100 ea 09/29/22 07/02/23 Unknown History Lancets) vitamins A,C,B-lllt-tcfpzn 2,148 1 tab PO BID 05/09/23 07/02/23 07/06/23 History mcg-113 mg-45 mg-17.4 mg tablet (PreserVision AREDS) warfarin 1 mg tablet (Jantoven) 1 mg PO 2XW 05/09/23 07/02/23 07/02/23 History warfarin 2 mg tablet (Jantoven) 2 mg PO 5XW 05/09/23 07/02/23 07/02/23 History insulin glargine 100 unit/mL 37 unit subcut BEDTIME 06/04/23 07/02/23 Unknown History subcutaneous solution (Lantus U-100 Insulin) melatonin 5 mg tablet 10 mg PO BEDTIME PRN Sleep 06/04/23 07/02/23 Unknown History furosemide 20 mg tablet 20 mg PO DAILY 06/11/23 07/02/2307/06/23 History insulin lispro 100 unit/mL subcut 06/23/23 07/02/23 Unknown History subcutaneous pen (Humalog KwikPen (U-100) Insulin) magnesium hydroxide 400 mg/5 mL 400 mg PO DAILY PRN Constipation 06/30/23 07/02/23 Unknown History oral suspension (Milk of Magnesia) Exam Exam Date and Time: June 30, 2023 1252 Height,Weight and Vital Signs: Height 5 ft 5 in Weight 90.718 kg Last Vital Signs Pulse 93 06/30/23 12:35 Resp 16 06/30/23 12:35 BP 150/73 H 06/30/23 12:35 Pulse Ox 96 06/30/23 12:35 O2 Del Method Room Air 06/30/23 12:35 Pertinent Lab Results Pertinent Lab Results: Lab Results 06/30/23 06/30/23 06/30/23 Range/Units 12:48 13:43 13:56 WBC 8.6 (4.8-10.8) X10*3/uL RBC 4.78 (4.20-5.50) X10*6/uL Hgb 13.3 (12.0-16.0) g/dl Hct 42.5 (37.0-47.0) % MCV 88.9 (80.0-98.0) fL MCH 27.8 (27.0-33.0) pg MCHC 31.3 (31.0-35.0) g/dl RDW 16.0 (11.0-16.0) % Plt Count 346 D (160-400) X10*3/uL MPV 8.9 L (9.4-12.3) fL Absolute Nucleated RBC 0.000 (0.0-0.012) X10*3/uL Nucleated RBC % (auto) 0.0 (0.0-0.2) /100WBC Sodium (135-145) mmol/L Potassium (3.3-5.1) mmol/L Chloride (96-108) mmol/L Carbon Dioxide (22-29) mmol/L Anion Gap (12-20) BUN (9-16) mg/dL Creatinine (0.5-1.4) mg/dL Estim Creat Clear Calc Estimated GFR Random Glucose (60-115) mg/dL Calcium (8.4-10.2) mg/dL Nasal Screen MRSA (PCR) POSITIVE A (Negative) Nasal S. aureus Screen POSITIVE A (Negative) Nasal MRSA/S.aureus Interp SEE NOTE Blood Type B Positive Antibody Screen POSITIVE Antibody Identification Anti-K Antigen Identification K Antigen - NEGATIVE CHRIS, Polyspecific NEGATIVE Positive CHRIS Work-up TNP Crossmatch See Detail Crossmatch (AHG) See Detail 06/30/23 Range/Units 13:56 WBC (4.8-10.8) X10*3/uL RBC (4.20-5.50) X10*6/uL Hgb (12.0-16.0) g/dl Hct (37.0-47.0) % MCV (80.0-98.0) fL MCH (27.0-33.0) pg MCHC (31.0-35.0) g/dl RDW (11.0-16.0) % Plt Count (160-400) X10*3/uL MPV (9.4-12.3) fL Absolute Nucleated RBC (0.0-0.012) X10*3/uL Nucleated RBC % (auto) (0.0-0.2) /100WBC Sodium 139 (135-145) mmol/L Potassium 4.0 (3.3-5.1) mmol/L Chloride 105 (96-108) mmol/L Carbon Dioxide 24 (22-29) mmol/L Anion Gap 14 (12-20) BUN 19 H (9-16) mg/dL Creatinine 1.31 (0.5-1.4) mg/dL Estim Creat Clear Calc 36.8 Estimated GFR 39 Random Glucose 188 H (60-115) mg/dL Calcium 9.5 (8.4-10.2) mg/dL Nasal Screen MRSA (PCR) (Negative) Nasal S. aureus Screen (Negative) Nasal MRSA/S.aureus Interp Blood Type Antibody Screen Antibody Identification Antigen Identification CHRIS, Polyspecific Positive CHRIS Work-up Crossmatch Crossmatch (AH) Narrative Narrative: EKG 01/2023 Atrial fibrillation 94 beats per minute, normal axis, nonspecific ST changes, premature ventricular complexes, QTC 497 milliseconds. NM cardiolite stress test 04/2023 Impression: ? 1.? Myocardial perfusion imaging study shows moderate size mild to moderate intensity basal and mid inferolateral and basal lateral and inferior wall ischemia in circumflex/RCA distribution 2.? Gated LVEF is 54% 3. Transient ischemic dilatation not present ? EKG is nondiagnostic for ischemia ECHO 2021 Conclusions: - The left ventricular systolic function is mildly decreased.? ? The visually estimated ejection fraction is between 45-50%.? ? ? - The basal inferior segment is hypokinetic. ? - There is mildly decreased right ventricular systolic function. - The left atrium is moderately dilated. ? - There is mild to moderate aortic valve stenosis. ? - There is moderate mitral annular calcification.? There is mild to moderate mitral valve regurgitation.? ?? Airway Mallampati Class: II TM Dist: >3cm Neck ROM: Full Denture: Upper Loose/Missing/Broken Teeth: Yes (missing lower molars) Heart: irreg Lungs: CTAB Assessment and Plan Final Anesthetic Review Family History of Problems with Anesthesia: No History of Problems with Anesthesia: No Documented by User: Kevin Lanier MD 07/07/23 13:28 [facility] Past Medical History Medical History Atrial fibrillation CAD (coronary artery disease) CKD (chronic kidney disease) Congestive heart failure Current use of anticoagulant therapy CVA (cerebral vascular accident) Diabetes Elevated cholesterol Hip pain Hypertension Hypothyroidism Hypotonic neurogenic bladder Leg wound, left MRSA infection Myocardial infarction Neurogenic bladder Neuropathy Osteoarthritis of right hip PAF (paroxysmal atrial fibrillation) Recurrent UTI Shingles Urinary incontinence Varicose vein of leg Family History Family History Father Hx of angina pectoris Myocardial infarction Mother Ovarian cancer Stomach cancer Maternal Grandfather Hardening of the arteries of the heart Surgical History Surgical History H/O heart artery stent H/O nasal polypectomy History of left knee replacement History of right knee joint replacement History of tonsillectomy and adenoidectomy History of tubal ligation Hx of cholecystectomy Social History Social History Household Members: Children Household Members Other:: daughter Housing: House Are you a primary ambulatory care coordinator to a significant other at home: No Do you presently have visiting nurse or other home services: Yes (meals on wheels and VNA) Alcohol intake: never Patient Tobacco Use Status: Never used Tobacco Second Hand Smoke Exposure: No Advance Directives Date on File: 08/27/22 service: No Current occupational status: retired [employer] Allergies Allergy/AdvReac Type Severity Reaction Status Date / Time No Known Allergies Allergy Verified 07/07/23 10:31 [No Known Allergies*] Home Medications Medication Instructions Recorded Confirmed Last Taken Type levothyroxine 25 mcg tablet 25 mcg PO DAILY 09/05/20 07/02/23 07/07/23 06:00 History aspirin 81 mg tablet,delayed 81 mg PO DAILY 09/11/21 07/02/23 07/02/23 History release pen needle, diabetic 32 gauge x #50 ea 12/31/21 07/02/23 Unknown History (BD Cathy 2nd Gen Pen Needle) multivitamin (One Daily 1 tab PO DAILY 09/15/22 07/02/23 07/06/23 History Multivitamin tablet) lancets 28 gauge (FreeStyle #100 ea 09/29/22 07/02/23 Unknown History Lancets) vitamins A,C,K-arnb-sjosmy 2,148 1 tab PO BID 05/09/23 07/02/23 07/06/23 History mcg-113 mg-45 mg-17.4 mg tablet (PreserVision AREDS) warfarin 1 mg tablet (Jantoven) 1 mg PO 2XW 05/09/23 07/02/23 07/02/23 History warfarin 2 mg tablet (Jantoven) 2 mg PO 5XW 05/09/23 07/02/23 07/02/23 History insulin glargine 100 unit/mL 37 unit subcut BEDTIME 06/04/23 07/02/23 Unknown History subcutaneous solution (Lantus U-100 Insulin) melatonin 5 mg tablet 10 mg PO BEDTIME PRN Sleep 06/04/23 07/02/23 Unknown History furosemide 20 mg tablet 20 mg PO DAILY 06/11/23 07/02/23 07/06/23 History insulin lispro 100 unit/mL subcut 06/23/23 07/02/23 Unknown History subcutaneous pen (Humalog KwikPen (U-100) Insulin) magnesium hydroxide 400 mg/5 mL 400 mg PO DAILY PRN Constipation 06/30/23 07/02/23 Unknown History oral suspension (Milk of Magnesia) Assessment and Plan Assessment Anesthesia Assessment: Anesthesia Plan Discussed and Chart Reviewed Final Anesthetic Review NPO: Yes ASA Class: III Final Preanesthetic Review: No Changes in Pt Med Stat, Meds/Allgs Chart Reviewed, Consent Obtained/Reviewed and Anes Risks/Benef Reviewed Patient Risk: Intermediate Procedure Risk: Intermediate Anesthetic Plan Anesthetic Plan: GA Disposition: Standard PACU
[2023-06-30 15:11] LABS: MRSA Nasal PCR POSITIVE (Negative); SA Nasal PCR POSITIVE (Negative)
[2023-06-30 15:40] LABS: Hematocrit 42.5 % (37.0-47.0); Hemoglobin 13.3 g/dl (12.0-16.0); Mean Corpuscular HGB Conc 31.3 g/dl (31.0-35.0); Mean Corpuscular Hemoglobin 27.8 pg (27.0-33.0); Mean Corpuscular Volume 88.9 fL (80.0-98.0); Mean Platelet Volume 8.9 fL (9.4-12.3); Platelet Count 346 X10*3/uL (160-400); Red Blood Count 4.78 X10*6/uL (4.20-5.50); White Blood Count 8.6 X10*3/uL (4.8-10.8)
[2023-06-30 16:29] LABS: Anion Gap 14 (12-20); Blood Urea Nitrogen 19 mg/dL (9-16); Calcium 9.5 mg/dL (8.4-10.2); Carbon Dioxide 24 mmol/L (22-29); Chloride 105 mmol/L (96-108); Creatinine Clr Calc Pharmacy 36.8; Estimated Glomerular Filt Rate 39; Glucose Random 188 mg/dL (60-115); Sodium 139 mmol/L (135-145)
[2023-07-07] VITALS (10 sets, daily range): BP systolic 98–158; BP diastolic 50–76; PULSE 81–99; RESP 16–20; TEMP 36–36.3; O2SAT 92–98
--- NOTE | ~2023-07-07 | US_ITS ---
EXAMINATION: ARTERIAL DUPLEX RIGHT LEG CLINICAL INFORMATION: Right leg pain after surgery. Saphenous vein stripping. COMPARISON: None TECHNIQUE: Duplex Doppler of the right lower extremity arterial system was performed. FINDINGS: RIGHT: Common femoral: PSV 98 cm/s. Biphasic waveform. Deep femoral: PSV 75 cm/s. Triphasic waveform. Proximal superficial femoral: PSV 47 cm/s. Biphasic waveform. Mid superficial femoral: PSV 40 cm/s. Monophasic waveform. Distal superficial femoral: PSV 112 cm/s. Monophasic waveform. Popliteal: PSV 68 cm/s. Monophasic waveform. Posterior tibial: PSV 18 cm/s. Monophasic waveform. Anterior tibial: PSV 22 cm/s. Monophasic waveform. US/US arterial duplex LE RT IMPRESSION: Findings consistent with hemodynamically significant femoral level disease with monophasic waveforms seen from the mid SFA distally. No evidence of hemodynamically significant inflow disease.
--- NOTE | ~2023-07-07 | XR_ITS ---
EXAMINATION: XR PELVIS CLINICAL INFORMATION: Right total hip replacement COMPARISON: None available. TECHNIQUE: AP view of the pelvis. FINDINGS: There is a right total hip replacement in satisfactory position. No fracture or dislocation. There is severe arthritis at the left hip joint. There is atherosclerotic disease. XR/XR pelvis 1-2V IMPRESSION: Satisfactory appearance of right hip replacement.
--- NOTE | ~2023-07-07 | US_ITS ---
EXAMINATION: US VENOUS ULTRASOUND WITH DOPPLER LOWER EXTREMITY, RIGHT CLINICAL INFORMATION: Calf pain, post surgery.. Greater saphenous vein stripping COMPARISON: None available. TECHNIQUE: Ultrasound of the deep veins is performed from the hip to the calf with compression sonography and color and pulse Doppler assessment. Spectral analysis with color-flow imaging is performed. FINDINGS: There is normal venous compression and respiratory variation and augmented flow. The visualized common femoral vein, superficial femoral vein, profunda femoral vein, popliteal vein, and the trifurcation region shows no evidence of deep venous thrombosis. There is no significant popliteal fossa cyst. If the patient's symptoms persist, followup ultrasound in 5 days 7 days might be of value to exclude proximal propagation from a non-visualized calf vein. US/US venous duplex LE RT IMPRESSION: No DVT demonstrated in the right lower extremity.
[2023-07-07 10:49] LABS: INTERNATIONAL NORM RATIO 1.1 (0.9-1.1); Prothrombin Time 13.3 SEC (11.1-13.3)
[2023-07-07] MEDS: vancomycin HCL 1,500 MG in 0.9 % Sodium Chloride 500 ML 333.33 MG IV (12:46)
[2023-07-07] MEDS: Lactated Ringers 1,000 ML 50 ML IVCONT (12:46)
[2023-07-07 12:47] LABS: Glucose, Whole Blood 137 mg/dL (60-115)
--- NOTE | 2023-07-07 12:52 | PC.NURSE ---
red rash to bilateral groins rt>lt and surrounding the suprapubic tube noted at 1118. has had this off andf on for months. uses cream off and on. awaited surgeon eval and after long conversation with him, ok'd to proceed with known risks. surgeon also made aware of bilateral upper arm areas scabbed over. pt has had a long time.
--- NOTE | 2023-07-07 14:50 | PHA.MEDREC ---
Pharmacy Consult ? Medication Reconciliation Pharmacy has completed the medication reconciliation. Spoke to daughter andrew. Pt was on warfarin 2mg everyday except 1 mg on thursday and was having a low INR. Recommended I call antico clinic down stairs. Per VNA notes, pt was told to take 3mg on saturday 06/30 for low INR and then resume schedule. The note also states that after surgery that her goal maintenance dose is expected to be 2mg daily. That is what I entered in the med rec since her INR was low. I left the other order as unconfirmed as to not delete the protocol Georges
--- NOTE | 2023-07-07 15:27 | PM.OP ---
Brief Operative Note Date of Service: 07/07/23 Pre-op diagnosis: right hip OA Post-op diagnosis: same Procedure: Right NIR Implants: Nancy Trident 2 #50 Nancy Accolade 2 # 6 127deg with + 5 36 CoCr femoral head Surgeon: German Hines MD Anesthesia: GETA and local Was an Lockstitch Front Maker used for this Procedure?: Yes Lockstitch Front Maker: Ronni Sharpe Estimated blood loss (mL): 200 IV fluids (mL): 1,000 Pathology: other Condition: stable Disposition: PACU
--- NOTE | 2023-07-07 15:48 | W.PM.OPN ---
Operative Note Operative Note Date of Service: 07/07/23 Narrative: Date of Service: 07/07/23 Pre-op diagnosis: right hip OA Post-op diagnosis: same Procedure: Right NIR Implants: Collins Trident 2 #50 Collins Accolade 2 # 6 127deg with + 5 36 CoCr femoral head Surgeon: German Hines MD Anesthesia: GETA and local Was an Impregnator Electrolytic Capacitors used for this Procedure?: Yes Impregnator Electrolytic Capacitors: Ronni Sharpe Estimated blood loss (mL): 200 IV fluids (mL): 1,000 Pathology: other Condition: stable Disposition: PACU Indicationsa: Prior to surgery I had an additional conversation with Belen regarding surgery. I explained that she is at risk for infection , as well as additional complications, given her medical history and especially given her indwelling bladder catheter. She understands these risks and wants to proceed forward. Procedure in detail: Patient was brought into the operating room and placed in the right lateral decubitus position. All bony prominences were well padded and the limb was prepped and draped in standard sterile fashion. A time-out was called to identify proper site procedure proper surgeon IV antibiotics and 1 g of transaxemic acid were administered. I began by making a curvilinear incision over the posterolateral aspect of the greater trochanter. Dissection was taken down to the tensor fascia which was incised in line with the incision and a Charnley retractor was placed. Cautery was used to maintain hemostasis. The hip was internally rotated and the external rotators were identified. The vessels were cauterized and a full-thickness capsular/external rotator layer was developed starting just proximal to the piriformis. This layer was tagged and a dull Hohmann retractor was placed underneath the neck in the hip was internally rotated. She had excess acetabulum circumferentially which required excision with an opsteotome in order to dislocate. Additionally a wafer of bone from her head was removed in order to facilitate head removal. The head was eburnated and measured as a 46 on the back table. I placed my acetabular retractiors carefully anteriorly and posteriorly. I started with a 44 reamer and medialized to the inner table. I sequentially reamed up to a size 50 and impacted a 50mm cup at 45 degrees of inclination and 25 degrees of version. I then placed a trial liner and turned my attention to the femur. I identified the piriformis insertion and used this as a starting point for my michelle cutter. The medius tendon was protected with a Hibs retractor. A Charnley awl was inserted in the canal and a curved curette used to remove the lateral bone. I irrigated copiously. I then sequentially broached in the patient's natural version to a size 6 and placed my trial implants. She was stable using a + 5 36 head. She templated valgus pre-operatively but her stability was much improved I used a #6/127 . Using a trail head I took the hip through range of motion using a +5. I was satisfied with the stability. I removed all instrumentation and copiously irrigated. I placed my final liuner and femoral implant and again took the hip through range of motion and was satisfied with the stability and length uysing a +5/36. The final +5 implant was impacted in place and the hip reduced. I then irrigated for 3 minutes with iodine and placed 1 g of local transaxemic acid. I performed a capsular closure with 2.0 fiberwire, Adriana's fascia with 0 Vicryl, subcuticular with 2-0 Vicryl and the skin with nixon. Patient was placed into a sterile dressing. Supine radiographs were obtained on the surgical table and I was satisfied with the length and alignment. Patient was extubated brought to the recovery room in stable condition. There were no known complications.
[2023-07-07] MEDS: 0.9 % Sodium Chloride Flush 3 ML SYRINGE IVFLUSH (17:58)
[2023-07-07] MEDS: Lactated Ringers 1,000 ML 100 ML IVCONT (17:59)
[2023-07-07 18:11] LABS: Glucose, Whole Blood 161 mg/dL (60-115)
--- NOTE | 2023-07-07 18:38 | PHA.PROG ---
Admission Date/Time: July 07, 2023 09:34 Indication: SURGICAL PROPHYLAXIS Weight in k.718 kg Adjusted body weight in K.487 [place] body weight in K Obesity Dosing Indication % IBW:33.3 Vancomycin Loading Dose: 1500 MG Current Vancomycin Dosing Regimen: 750 Q24 Vancomycin Monitoring using AUC goal of 400 - 600 range with trough as surrogate marker: 421/13.2 Date and Time for next Vancomycin Level to be drawn: 07/09 @1100 Pharmacist Comments on Vancomycin Plan: PT WAS APPROPRIATELY LOADED IN PACU PRIOR TO SURGERY. CONFIRMED WITH PROVIDER THAT THEY WANTED TO CONTINUE PATIENT ON SCHEDULED VANCOMYCIN VS A 1 TIME POST OP DOSE. BUCK ALLISON CONFIRMED THAT SURGEON WANTS SCHEDULED DOSES. AT THE TIME DOSING WAS ENTERED THE MOST RECENT SCR WAS FROM 06/30 AND WAS 1.31. A STAT ORDER FOR CREATININE WAS REQUESTED AND DOSING OF 750 Q24 WAS SCHEDULED TO START 07/08 24 HOURS AFTER DOSE IN PACU WAS GIVEN. Vancomycin dosing will take advantage of [employer] as a clinical decision support tool that uses Bayesian modeling to calculate individual patient's pharmacokinetic parameters and forecast the patient's drug concentration time course with the target goal AUC 24 range of 400 - 600 mg/L/hr.
[2023-07-07] MEDS: Warfarin Sodium 2 MG TABLET PO (18:57)
--- NOTE | 2023-07-07 20:00 | P.CONHOSP_ITS ---
History of Present Illness Data of Consult Service Date: 07/07/23 Requesting physician: Ronni Sharpe Primary Care Provider: MD ELBA Owens Reason for consult: medical management 82-year-old female with history of paroxysmal atrial fibrillation anticoagulated with Coumadin, coronary artery disease, chronic kidney disease stage 3, heart failure with reduced ejection fraction EF 45-55%, history of TIA, insulin- dependent type 2 diabetes, hypothyroidism, hyperlipidemia, hypotonic neurogenic bladder with suprapubic catheter in place with recurrent UTI, and diabetic polyneuropathy admitted to Orthopedic surgery for management of osteoarthritis of the right hip s/p right NIR with consult placed to hospitalist service for medical management. The patient is reporting fatigue and generalized weakness. She remains on 2 L supplemental O2 but is using incentive spirometry. She is reporting 8/10 pain of the right hip. Also complaining of a vertigo room spinning type dizziness that is worse with head movements and position changes. She denies any nausea or vomiting or presyncope. No shortness of breath, palpitations, chest pain. Review of Systems Review of Systems: General: No fevers, malaise, unintentional weight loss. +fatigue, +general weakness HEENT: No blurred vision, diplopia. No sore throat, nasal congestion, rhinorrhea, sinus pain, ear pain Cardiovascular: No chest pain, palpitations, or leg edema Respiratory: No shortness of breath, wheezing, cough GI: No abdominal pain, nausea, vomiting, diarrhea, constipation, melena, hematochezia : No dysuria, hematuria, increased urinary frequency, decreased urinary output MSK: No myalgia, back pain Neuro: No headaches, weakness, paresthesias. +vertigo Skin: No rashes or lesions [facility] Medical History Atrial fibrillation CAD (coronary artery disease) CKD (chronic kidney disease) Congestive heart failure Current use of anticoagulant therapy CVA (cerebral vascular accident) Diabetes Elevated cholesterol Hip pain Hypertension Hypothyroidism Hypotonic neurogenic bladder Leg wound, left MRSA infection Myocardial infarction Neurogenic bladder Neuropathy Osteoarthritis of right hip PAF (paroxysmal atrial fibrillation) Recurrent UTI Shingles Urinary incontinence Varicose vein of leg Family History Father Hx of angina pectoris Myocardial infarction Mother Ovarian cancer Stomach cancer Maternal Grandfather Hardening of the arteries of the heart Surgical History H/O heart artery stent H/O nasal polypectomy History of left knee replacement History of right knee joint replacement History of tonsillectomy and adenoidectomy History of tubal ligation Hx of cholecystectomy Social History Household Members: Children Household Members Other:: daughter Housing: House Are you a primary director career to a significant other at home: No Do you presently have visiting nurse or other home services: No Alcohol intake: never Patient Tobacco Use Status: Never used Tobacco Second Hand Smoke Exposure: No Advance Directives Date on File: 08/27/22 service: No Current occupational status: retired [employer] Allergies Allergy/AdvReac Type Severity Reaction Status Date / Time No Known Allergies Allergy Verified 07/07/23 10:31 [No Known Allergies*] Active Medications: Current Medications Acetaminophen (Acetaminophen 325 Mg Tablet) 650 mg PO Q6H PRN PRN Reason: Pain, Mild (Pain Scale 1-3) Celecoxib (Celecoxib 200 Mg Capsule) 200 mg PO BID [facility] Docusate Sodium (Docusate Sodium 100 Mg Capsule) 100 mg PO BID [facility] Furosemide (Furosemide 20 Mg Tablet) 20 mg PO DAILY [facility]; Protocol Hydromorphone HCl (Hydromorphone Hcl 0.5 Mg/0.5 Ml Syringe) 0.25 mg IVPUSH Q4H PRN; Protocol PRN Reason: Pain, Severe (Pain Scale 7-10) Lactated Ringer's (Lr) 1,000 mls @ 100 mls/hr IVCONT .Q10H [facility] Stop: 07/08/23 15:34 Last Admin: 07/07/23 17:59 Dose: 100 mls/hr Vancomycin HCl 750 mg/ Sodium (Chloride) 265 mls @ 265 mls/hr IV Q24H [facility] Levothyroxine Sodium (Levothyroxine Sodium 25 Mcg Tablet) 25 mcg PO DAILY@0600 [facility] Magnesium Hydroxide (Milk Of Magnesia 30 Ml Oral.Susp) 30 ml PO DAILY PRN PRN Reason: Constipation Melatonin (Melatonin 3 Mg Tablet) 9 mg PO BEDTIME PRN PRN Reason: Sleep Metoprolol Succinate (Metoprolol Succinate Er 100 Mg Tab.Er.24h) 200 mg PO DAILY [facility]; Protocol Ondansetron HCl (Ondansetron Hcl 4 Mg/2 Ml Vial) 4 mg IVPUSH Q8H PRN PRN Reason: Nausea and Vomiting Oxycodone HCl (Oxycodone Hcl Immed Release 5 Mg Tablet) 5 mg PO Q4H PRN PRN Reason: Pain, Moderate(Pain Scale 4-6) Oxycodone HCl (Oxycodone Hcl Er 10 Mg Tab.Er.12h) 10 mg PO BID [facility] Pharmacy Consult (Consult Rx Vancomycin Dosing) 1 each MISCELLANE DAILY PRN PRN Reason: Consult order Sodium Chloride (0.9 % Sodium Chloride Flush 3 Ml Syringe) 3 ml IVFLUSH QSHIFT [facility] Last Admin: 07/07/23 17:58 Dose: 3 ml Trimethoprim/Sulfamethoxazole (Sulfamethox/Trimeth 800/160 Tablet) 1 tab PO DAILY PRN PRN Reason: prevent infection Warfarin Sodium (Warfarin Sodium 2 Mg Tablet) 2 mg PO DAILY@1800 [facility] Last Admin: 07/07/23 18:57 Dose: 2 mg Home Medications Medication Instructions Recorded Confirmed Last Taken Type levothyroxine 25 mcg tablet 25 mcg PO DAILY 09/05/20 07/02/23 07/07/23 06:00 History aspirin 81 mg tablet,delayed 81 mg PO DAILY 09/11/21 07/02/23 07/02/23 History release pen needle, diabetic 32 gauge x #50 ea 12/31/21 07/02/23 Unknown History (BD Cathy 2nd Gen Pen Needle) multivitamin (One Daily 1 tab PO DAILY 09/15/22 07/02/23 07/06/23 History Multivitamin tablet) lancets 28 gauge (FreeStyle #100 ea 09/29/22 07/02/23 Unknown History Lancets) vitamins A,C,J-iapo-homggu 2,148 1 tab PO BID 05/09/23 07/02/23 07/06/23 History mcg-113 mg-45 mg-17.4 mg tablet (PreserVision AREDS) warfarin 1 mg tablet (Jantoven) 1 mg PO 2XW 05/09/23 07/02/23 07/02/23 History warfarin 2 mg tablet (Jantoven) 2 mg PO 5XW 05/09/23 07/02/23 07/02/23 History insulin glargine 100 unit/mL 37 unit subcut BEDTIME 06/04/23 07/02/23 Unknown History subcutaneous solution (Lantus U-100 Insulin) melatonin 5 mg tablet 10 mg PO BEDTIME PRN Sleep 06/04/23 07/02/23 Unknown History furosemide 20 mg tablet 20 mg PO DAILY 06/11/23 07/02/23 07/06/23 History insulin lispro 100 unit/mL subcut 06/23/23 07/02/23 Unknown History subcutaneous pen (Humalog KwikPen (U-100) Insulin) magnesium hydroxide 400 mg/5 mL 400 mg PO DAILY PRN Constipation 06/30/23 07/02/23 Unknown History oral suspension (Milk of Magnesia) enoxaparin 80 mg/0.8 mL 80 mg subcut BID 07/07/23 Unknown History subcutaneous syringe warfarin 2 mg tablet 2 mg PO DAILY@1800 07/07/23 07/07/23 Unknown History Physical Exam Vital Signs and Narrative: Vital Signs: Last Vital Signs Temp 96.8 F 07/07/23 16:54 Pulse 92 07/07/23 16:54 Resp 18 07/07/23 16:54 BP 143/67 H 07/07/23 16:54 Pulse Ox 92 07/07/23 16:54 O2 Del Method Nasal Cannula 07/07/23 16:54 O2 Flow Rate 2.0 07/07/23 16:54 BMI result Body Mass Index 33.3 Constitutional - Awake and Alert, No apparent distress Eyes - PERRLA, EOMI Cardiovascular - S1S2, RRR, 1+ BLE edema Respiratory - Normal lung expansion, Normal respiratory effort, No respiratory distress, CTA bilaterally Gastrointestinal - NT / ND; +BS; No rebound or guarding Extremities - no calf tenderness bilaterally, no swelling Skin - Warm/Dry Neurological - Alert & oriented x3, CN II-XII in tact Psychological - Appropriate affect Results Labs 06/30/23 13:56 06/30/23 13:56 Labs: Laboratory Results - last 24 hr 07/07/23 07/07/23 07/07/23 10:33 12:43 18:07 PT 13.3 INR 1.1 POC Glucose 137 H 161 H Imaging Radiologist's Impressions: Impressions Pelvis X-Ray 07/07/23 15:20 IMPRESSION: Satisfactory appearance of right hip replacement. Assessment and Plan (1) Osteoarthritis of right hip: Status: Acute Plan 82-year-old female with history of paroxysmal atrial fibrillation anticoagulated with Coumadin, coronary artery disease, chronic kidney disease stage 3, heart failure with reduced ejection fraction EF 45-55%, history of TIA, insulin- dependent type 2 diabetes, hypothyroidism, hyperlipidemia, hypotonic neurogenic bladder with suprapubic catheter in place with recurrent UTI, and diabetic polyneuropathy admitted to Orthopedic surgery for management of osteoarthritis of the right hip s/p right NIR with consult placed to hospitalist service for medical management. #OA R hip s/p NIR POD0 -plan per orthopedic surgery #Post-operative hypoxia -Continue supplemental O2 to maintain oximetry >92% -Wean O2 as tolerated -Encourage IS # BPPV -CN exam in tact -meclizine p.r.n. # paroxysmal atrial fibrillation-rate controlled -Coumadin resumed -INR sub therapeutic this morning at 1.1 given absence of Coumadin. Follow INR daily -continue metoprolol for rate control # heart failure with reduced ejection fraction -euvolemic on exam -continue oral diuretics # insulin-dependent type 2 diabetes -dose adjusted basal insulin -diabetic diet -POC glucose -Humalog on sliding scale # hypothyroidism -continue Synthroid # history CVA -continue ASA # HLD/CAD -continue ASA, beta leonel, statin # hypotonic neurogenic bladder -suprapubic catheter in place -continue Bactrim for recurrent UTI prophylaxis Thank you for this consult. Will continue following Time Spent With Patient Time: Total time managing care of this patient today ____ minutes.
[2023-07-07] MEDS: oxyCODONE HCl ER 10 MG TAB.ER.12H PO (20:12)
[2023-07-07] MEDS: Docusate Sodium 100 MG CAPSULE PO (20:12)
[2023-07-07] MEDS: Celecoxib 200 MG CAPSULE PO (20:12)
[2023-07-07] MEDS: oxyCODONE HCl Immed Release 5 MG TABLET PO (20:19)
[2023-07-07 20:53] LABS: Creatinine Clr Calc Pharmacy 39.2; Estimated Glomerular Filt Rate 42
[2023-07-07 21:07] LABS: Glucose, Whole Blood 256 mg/dL (60-115)
[2023-07-07] MEDS: Insulin Glargine,Hum.rec.anlog 100 UNIT/ML 10 ML VIAL 28 UNIT SUBCUT (21:57)
[2023-07-07] MEDS: Insulin Lispro 100 UNIT/ML 3 ML VIAL SUBCUT (21:58)
[2023-07-07] MEDS: Acetaminophen 325 MG TABLET 650 MG PO (21:58)
[2023-07-08] VITALS (11 sets, daily range): BP systolic 92–120; BP diastolic 50–60; PULSE 79–101; RESP 16–18; TEMP 36–36.7; O2SAT 90–99
[2023-07-08] MEDS: Lactated Ringers 1,000 ML 100 ML IVCONT ×2 (03:42→12:39)
[2023-07-08] MEDS: Levothyroxine Sodium 25 MCG TABLET PO (05:50)
[2023-07-08] MEDS: oxyCODONE HCl Immed Release 5 MG TABLET PO ×4 (05:50→21:06)
[2023-07-08 05:51] LABS: Basophils Percent Auto 0.2 % (0-2); Hemoglobin 8.4 g/dl (12.0-16.0); Imm Gran Abs Auto 0.13 X10*3/uL (0.00-0.03); Imm Gran Pct Auto 0.9 % (0.0-0.4); Lymphocytes Absolute Auto 1.2 X10*3/uL (1.2-4.9); Lymphocytes Percent Auto 8.3 % (20-40); MANUAL DIFF FLAG SCAN; Mean Corpuscular HGB Conc 31.1 g/dl (31.0-35.0); Mean Corpuscular Hemoglobin 28.4 pg (27.0-33.0); Mean Corpuscular Volume 91.2 fL (80.0-98.0); Mean Platelet Volume 9.5 fL (9.4-12.3); Monocytes Absolute Auto 1.9 X10*3/uL (0.1-1.2); Monocytes Percent Auto 13.2 % (2-11); Neutrophils Absolute Auto 11.3 x10*3/uL (2.0-8.3); Neutrophils Percent Auto 77.4 % (45-73); Platelet Count 236 X10*3/uL (160-400); Red Blood Count 2.96 X10*6/uL (4.20-5.50); Red Cell Distribution Width 16.3 % (11.0-16.0); SCAN SMEAR FLAG 1; White Blood Count 14.7 X10*3/uL (4.8-10.8)
[2023-07-08 06:00] LABS: INTERNATIONAL NORM RATIO 1.1 (0.9-1.1); Prothrombin Time 13.6 SEC (11.1-13.3)
[2023-07-08 06:08] LABS: Anion Gap 11 (12-20); Blood Urea Nitrogen 23 mg/dL (9-16); Carbon Dioxide 24 mmol/L (22-29); Chloride 109 mmol/L (96-108); Creatinine Clr Calc Pharmacy 35.7; Estimated Glomerular Filt Rate 38; Glucose Fasting 151 mg/dL (60-99); Potassium 4.7 mmol/L (3.3-5.1); Sodium 139 mmol/L (135-145)
[2023-07-08 06:10] LABS: SLIDE REVIEW VERIFIED
[2023-07-08 07:37] LABS: Glucose, Whole Blood 160 mg/dL (60-115)
[2023-07-08] MEDS: Insulin Lispro 100 UNIT/ML 3 ML VIAL SUBCUT ×4 (08:06→21:07)
[2023-07-08] MEDS: Celecoxib 200 MG CAPSULE PO ×2 (08:08→21:07)
[2023-07-08] MEDS: Furosemide 20 MG TABLET PO (08:08)
[2023-07-08] MEDS: Docusate Sodium 100 MG CAPSULE PO ×2 (08:08→21:06)
[2023-07-08] MEDS: Metoprolol Succinate ER 100 MG TAB.ER.24H 200 MG PO (08:08)
--- NOTE | 2023-07-08 08:49 | MHC.CLN ---
NUTRITION DIET CHANGED TO DIABETIC 1800 KCALS TO BETTER MEET ESTIMATED NUTRITIONAL NEEDS.
--- NOTE | 2023-07-08 09:39 | P.PNOP_ITS ---
Subjective Subjective Date of Service: 07/08/23 Interval history: POD 1 s/p RT nir no overnight events resting in bed denies cp-has some light headedness Physical Exam Vital Signs: Vital Signs: Last Vital Signs Temp 97.7 F 07/08/23 07:52 Pulse 101 H 07/08/23 08:49 Resp 16 07/08/23 07:52 BP 92/50 L 07/08/23 08:49 Pulse Ox 94 07/08/23 08:49 O2 Del Method Nasal Cannula 07/08/23 07:52 O2 Flow Rate 1 07/08/23 07:52 BMI result Body Mass Index 33.3 Const: General: cooperative, healthy appearing and no acute distress Resp: Effort & Inspection: normal respiratory effort and able to speak in complete sentences Cardio: Rate: regular rate Peripheral pulses: Peripheral pulses 2+ throughout GI: Palpation (GI): Soft to palpation Skin: General skin exam: no rashes or lesions noted Extrem: Other: incision clean dry and intact. Rafi intact. No erythema or effusion. Calf supple nontender. She is able to dorsi flex and plantar flex . Neurovascularly intact. Procedures Date of Service Date of Service: 07/08/23 Progress Note: A&P Assessment and plan (1) History of total right hip replacement: Status: Acute Assessment and Plan: * Continue pain mgmnt * Begin lovenox bridge until INR therapeutic 2-3 * begin PT / OT for RT NIR posterior precautions * Dispo planning-Pending PT eval, pain mgmnt Time Spent With Patient Time: Total time managing care of this patient today ____ minutes. Quality Stroke Does the patient have a stroke diagnosis?: No VTE Prior VTE?: No VTE Risk Level:: Surgical - very high VTE Device Contraindication: N/A - Device Ordered VTE Drug Contraindication: N/A - Med Ordered
--- NOTE | 2023-07-08 10:15 | HE.PHANOTE ---
RE: SHADO Patients renal function in regards to scr went from 1.23 to 1.35. Next draw is for 07/09 @1100. Will continue with 750 mg Q24H. Predicted AUC 511
--- NOTE | 2023-07-08 10:34 | HO.PM.IMPN ---
Subjective Subjective Date of Service: 07/08/23 Review of Systems Follow-up consultation Denies nausea, vomiting, diarrhea Feels weak Physical Exam Vital Signs: Vital Signs: Last Vital Signs Temp 97.7 F 07/08/23 07:52 Pulse 98 07/08/23 09:52 Resp 18 07/08/23 09:52 BP 92/52 L 07/08/23 09:52 Pulse Ox 90 L 07/08/23 09:52 O2 Del Method Room Air 07/08/23 09:52 O2 Flow Rate 1 07/08/23 07:52 BMI result Body Mass Index 33.3 Appearing in no acute distress lung sounds are clear to auscultation heart regular rate rhythm, clear S1, S2 positive bowel sounds, abdomen is soft, nontender neuro patient is alert x3, no focal deficits Right hip surgical dressing intact Objective Data Active Medications Acetaminophen (Acetaminophen 325 Mg Tablet) 650 mg PO Q6H PRN PRN Reason: Pain, Mild (Pain Scale 1-3) Last Admin: 07/07/23 21:58 Dose: 650 mg Documented By: KELLI Celecoxib (Celecoxib 200 Mg Capsule) 200 mg PO BID [facility] Last Admin: 07/08/23 08:08 Dose: 200 mg Documented By: DAVE Dextrose (Dextrose 50 % 25 Gm/50 Ml Syringe) 25 gm IVPUSH Q15M PRN; Protocol PRN Reason: per Hypoglycemia Standing Ord. Docusate Sodium (Docusate Sodium 100 Mg Capsule) 100 mg PO BID [facility] Last Admin: 07/08/23 08:08 Dose: 100 mg Documented By: DAVE Enoxaparin Sodium (Enoxaparin Sodium 40 Mg/0.4 Ml Syringe) 40 mg SUBCUT Q12H [facility] Furosemide (Furosemide 20 Mg Tablet) 20 mg PO DAILY [facility]; Protocol Last Admin: 07/08/23 08:08 Dose: 20 mg Documented By: DAVE Glucose (Glucose Gel 15 Gm Gel..Gram.) 15 gm PO Q15M PRN; Protocol PRN Reason: per Hypoglycemia Standing Ord. Hydromorphone HCl (Hydromorphone Hcl 0.5 Mg/0.5 Ml Syringe) 0.25 mg IVPUSH Q4H PRN; Protocol PRN Reason: Pain, Severe (Pain Scale 7-10) Lactated Ringer's (Lr) 1,000 mls @ 100 mls/hr IVCONT .Q10H [facility] Stop: 07/08/23 15:34 Last Admin: 07/08/23 03:42 Dose: 100 mls/hr Documented By: LOLA Vancomycin HCl 750 mg/ Sodium (Chloride) 265 mls @ 265 mls/hr IV Q24H [facility] Insulin Glargine (Insulin Glargine,Hum.Rec.Anlog 100 Unit/Ml 10 Ml Vial) 28 unit SUBCUT BEDTIME [facility] Last Admin: 07/07/23 21:57 Dose: 28 unit Documented By: KELLI Insulin Human Lispro (Insulin Lispro 100 Unit/Ml 3 Ml Vial) 0 unit SUBCUT QIDACHS [facility]; Protocol Last Admin: 07/08/23 08:06 Dose: 2 unit Documented By: DAVE Levothyroxine Sodium (Levothyroxine Sodium 25 Mcg Tablet) 25 mcg PO DAILY@0600 [facility] Last Admin: 07/08/23 05:50 Dose: 25 mcg Documented By: KHANH Magnesium Hydroxide (Milk Of Magnesia 30 Ml Oral.Susp) 30 ml PO DAILY PRN PRN Reason: Constipation Meclizine HCl (Meclizine Hcl 12.5 Mg Tablet) 12.5 mg PO Q8H PRN PRN Reason: Vertigo Melatonin (Melatonin 3 Mg Tablet) 9 mg PO BEDTIME PRN PRN Reason: Sleep Metoprolol Succinate (Metoprolol Succinate Er 100 Mg Tab.Er.24h) 200 mg PO DAILY [facility]; Protocol Last Admin: 07/08/23 08:08 Dose: 200 mg Documented By: DAVE Ondansetron HCl (Ondansetron Hcl 4 Mg/2 Ml Vial) 4 mg IVPUSH Q8H PRN PRN Reason: Nausea and Vomiting Oxycodone HCl (Oxycodone Hcl Immed Release 5 Mg Tablet) 5 mg PO Q4H PRN PRN Reason: Pain, Moderate(Pain Scale 4-6) Last Admin: 07/08/23 05:50 Dose: 5 mg Documented By: KHANH Oxycodone HCl (Oxycodone Hcl Er 10 Mg Tab.Er.12h) 10 mg PO BID [facility] Last Admin: 07/08/23 09:57 Dose: Not Given Documented By: DAVE Non-Admin Reason: Decreased Blood Pressure Pharmacy Consult (Consult Rx Vancomycin Dosing) 1 each MISCELLANE DAILY PRN PRN Reason: Consult order Sodium Chloride (0.9 % Sodium Chloride Flush 3 Ml Syringe) 3 ml IVFLUSH QSHIFT [facility] Last Admin: 07/08/23 09:57 Dose: Not Given Documented By: DAVE Non-Admin Reason: IV Running Trimethoprim/Sulfamethoxazole (Sulfamethox/Trimeth 800/160 Tablet) 1 tab PO DAILY PRN PRN Reason: prevent infection Warfarin Sodium (Warfarin Sodium 2 Mg Tablet) 2 mg PO DAILY@1800 [facility] Last Admin: 07/07/23 18:57 Dose: 2 mg Documented By: KELLI Labs 07/08/23 05:12 07/08/23 05:12 Labs: Laboratory Results - last 24 hr 07/07/23 07/07/23 07/07/23 10:33 12:43 18:07 MCV MCH MCHC RDW Plt Count MPV Immature Gran % (Auto) Neut % (Auto) Lymph % (Auto) Dukes % (Auto) Eos % (Auto) Baso % (Auto) Lymph # (Auto) Dukes # (Auto) Eos # (Auto) Baso # (Auto) Abs Immat Gran (auto) Absolute Neuts (auto) Absolute Nucleated RBC Nucleated RBC % (auto) Smear Tech's Comments PT 13.3 INR 1.1 Anion Gap Estim Creat Clear Calc Estimated GFR POC Glucose 137 H 161 H Fasting Glucose Calcium 07/07/23 07/07/23 07/08/23 20:04 21:04 05:12 MCV MCH MCHC RDW Plt Count MPV Immature Gran % (Auto) Neut % (Auto) Lymph % (Auto) Dukes % (Auto) Eos % (Auto) Baso % (Auto) Lymph # (Auto) Dukes # (Auto) Eos # (Auto) Baso # (Auto) Abs Immat Gran (auto) Absolute Neuts (auto) Absolute Nucleated RBC Nucleated RBC % (auto) Smear Tech's Comments PT 13.6 H INR 1.1 Anion Gap Estim Creat Clear Calc 39.2 Estimated GFR 42 POC Glucose 256 H Fasting Glucose Calcium 07/08/23 07/08/23 07/08/23 05:12 05:12 07:25 MCV 91.2 MCH 28.4 MCHC 31.1 RDW 16.3 H Plt Count 236 D MPV 9.5 Immature Gran % (Auto) 0.9 H Neut % (Auto) 77.4 H Lymph % (Auto) 8.3 L Dukes % (Auto) 13.2 H Eos % (Auto) 0.0 Baso % (Auto) 0.2 Lymph # (Auto) 1.2 Dukes # (Auto) 1.9 H Eos # (Auto) 0.0 Baso # (Auto) 0.0 Abs Immat Gran (auto) 0.13 H Absolute Neuts (auto) 11.3 H Absolute Nucleated RBC 0.000 Nucleated RBC % (auto) 0.0 Smear Tech's Comments VERIFIED PT INR Anion Gap 11 L Estim Creat Clear Calc 35.7 Estimated GFR 38 POC Glucose 160 H Fasting Glucose 151 H Calcium 8.0 L D Assessment and Plan (1) History of total right hip replacement: Status: Acute Plan 82-year-old woman status post right total hip arthroplasty Hypotension Likely secondary to anemia Transfuse PRBC Hold Lasix Acute blood loss anemia Status post right hip surgery 1 unit PRBC ordered Follow H&H closely Right total hip arthroplasty Management as per surgical team Pain management PT History of paroxysmal atrial fibrillation Rate controlled Continue metoprolol, warfarin Diabetes mellitus type 2 Sliding scale, ADA diet Hypothyroidism Continue levothyroxine History of CVA Continue aspirin History of coronary artery disease Continue aspirin, statin and beta-leonel History of hypotonic neurogenic bladder Suprapubic catheter in place May resume Bactrim for recurrent UTI prophylaxis DVT prophylaxis with warfarin and Lovenox Attending Dr. Estrada Full code Time Spent With Patient Time: Total time managing care of this patient today ____ minutes. Quality Stroke Does the patient have a stroke diagnosis?: No VTE Prior VTE?: No VTE Risk Level:: Surgical - very high VTE Device Contraindication: N/A - Device Ordered VTE Drug Contraindication: N/A - Med Ordered
[2023-07-08] MEDS: oxyCODONE HCl ER 10 MG TAB.ER.12H PO ×2 (11:13→18:14)
[2023-07-08 11:24] LABS: Glucose, Whole Blood 169 mg/dL (60-115)
--- NOTE | 2023-07-08 11:29 | HO.POSTANES ---
Post Anesthesia Evaluation Post Anesthesia Evaluation Date of Service: 07/08/23 Vital Signs: Vital Signs Temp Pulse Resp BP Pulse Ox O2 Del Method O2 Flow Rate 07/08/23 09:52 98 18 92/52 L 90 L Room Air 07/08/23 08:49 101 H 92/50 L 94 07/08/23 07:52 97.7 F 101 H 16 92/50 L 94 Nasal Cannula 1 07/08/23 03:31 96.8 F 94 16 118/55 L 94 Nasal Cannula 1 07/07/23 23:31 97 F 99 16 98/50 L 94 Nasal Cannula 1 Anesthesia: General Mental Status: Awake Pain Control: Satisfactory Nausea/Vomiting: None Hydration: Adequate Anesthesia-Related Issues: No Anes. Related Issues
[2023-07-08] MEDS: vancomycin HCL 750 MG in 0.9 % Sodium Chloride 250 ML 265 MG IV (11:34)
--- NOTE | 2023-07-08 11:55 | MHC.CM.PN ---
Addendum entered by Veronica Kinsey 07/08/23 12:30: The facility has been notified to start insurance auth tomorrow 07/09/23. Per Surgical PA discharge is anticipated Thursday or Thursday. Original Note: IMM 07/07/23 S/P THR. PT recommends STR. Pt preferences obtained, referrals sent. [facility] was 1st choice. They did not offer a bed. [facility] is pts 2nd choice. They have offered a bed at discharge. The patient accepted the bed offer. No discharge today. A Blood transfusion has been ordered. DP Ramona via BLS.
[2023-07-08] MEDS: Enoxaparin Sodium 40 MG/0.4 ML SYRINGE SUBCUT (13:31)
[2023-07-08] MEDS: Acetaminophen 325 MG TABLET 650 MG PO (16:08)
[2023-07-08 16:28] LABS: Glucose, Whole Blood 207 mg/dL (60-115)
[2023-07-08] MEDS: Warfarin Sodium 2 MG TABLET PO (18:14)
[2023-07-08 20:52] LABS: Glucose, Whole Blood 218 mg/dL (60-115)
[2023-07-08] MEDS: Melatonin 3 MG TABLET 9 MG PO (21:05)
[2023-07-08] MEDS: Insulin Glargine,Hum.rec.anlog 100 UNIT/ML 10 ML VIAL 28 UNIT SUBCUT (21:08)
[2023-07-08] MEDS: 0.9 % Sodium Chloride Flush 3 ML SYRINGE IVFLUSH (21:10)
[2023-07-09] VITALS (8 sets, daily range): BP systolic 105–136; BP diastolic 57–80; PULSE 82–111; RESP 16–20; TEMP 36–36.8; O2SAT 94–98
[2023-07-09] MEDS: Enoxaparin Sodium 40 MG/0.4 ML SYRINGE SUBCUT ×2 (01:04→14:10)
[2023-07-09] MEDS: HYDROmorphone HCl 0.5 MG/0.5 ML SYRINGE 0.25 MG IVPUSH ×2 (01:05→08:39)
[2023-07-09] MEDS: Levothyroxine Sodium 25 MCG TABLET PO (06:40)
[2023-07-09 06:54] LABS: Basophils Absolute Auto 0.1 X10*3/uL (0.0-0.2); Basophils Percent Auto 0.6 % (0-2); Eosinophils Absolute Auto 0.2 X10*3/uL (0.0-0.4); Eosinophils Percent Auto 1.5 % (0-4); Hematocrit 26.6 % (37.0-47.0); Hemoglobin 8.5 g/dl (12.0-16.0); Imm Gran Abs Auto 0.12 X10*3/uL (0.00-0.03); Imm Gran Pct Auto 1.1 % (0.0-0.4); Lymphocytes Absolute Auto 2.2 X10*3/uL (1.2-4.9); Lymphocytes Percent Auto 19.4 % (20-40); MANUAL DIFF FLAG SCAN; Mean Corpuscular Hemoglobin 28.8 pg (27.0-33.0); Mean Corpuscular Volume 90.2 fL (80.0-98.0); Mean Platelet Volume 9.7 fL (9.4-12.3); Monocytes Percent Auto 17.7 % (2-11); Neutrophils Absolute Auto 6.7 x10*3/uL (2.0-8.3); Neutrophils Percent Auto 59.7 % (45-73); Platelet Count 223 X10*3/uL (160-400); Red Blood Count 2.95 X10*6/uL (4.20-5.50); Red Cell Distribution Width 17.1 % (11.0-16.0); SCAN SMEAR FLAG 1; White Blood Count 11.2 X10*3/uL (4.8-10.8)
[2023-07-09 07:10] LABS: INTERNATIONAL NORM RATIO 1.5 (0.9-1.1); Prothrombin Time 18.5 SEC (11.1-13.3)
[2023-07-09 07:20] LABS: Glucose, Whole Blood 133 mg/dL (60-115)
[2023-07-09 07:25] LABS: SLIDE REVIEW VERIFIED
[2023-07-09 07:26] LABS: Anion Gap 11 (12-20); Blood Urea Nitrogen 38 mg/dL (9-16); Calcium 7.9 mg/dL (8.4-10.2); Carbon Dioxide 22 mmol/L (22-29); Chloride 107 mmol/L (96-108); Creatinine Clr Calc Pharmacy 20.1; Estimated Glomerular Filt Rate 19; Glucose Fasting 149 mg/dL (60-99); Potassium 4.5 mmol/L (3.3-5.1); Sodium 135 mmol/L (135-145)
[2023-07-09 07:27] LABS: Vancomycin Random 16.1 mcg/mL (15-20)
--- NOTE | 2023-07-09 07:42 | HE.PHANOTE ---
re: [facility] PATIENTS LEVEL WAS PULLED 6 HOURS EARLY AT 0530, LEVEL WAS DUE FOR 1100, LEVEL WAS 16.1. DECREASED DOSE DUE TO SCR JUMP, 1,35 FROM YESTERDAY UP TO 2.4 TODAY. DECREASED DOSE FORM 750 MG TO 500 MG Q24H. PREDICTED AUC 528. NEXT DRAW 07/10 @1100
[2023-07-09] MEDS: Metoprolol Succinate ER 100 MG TAB.ER.24H 200 MG PO (08:37)
[2023-07-09] MEDS: Docusate Sodium 100 MG CAPSULE PO ×2 (08:37→19:58)
[2023-07-09] MEDS: oxyCODONE HCl ER 10 MG TAB.ER.12H PO ×2 (08:38→19:58)
[2023-07-09] MEDS: 0.9 % Sodium Chloride Flush 3 ML SYRINGE IVFLUSH (08:39)
[2023-07-09] MEDS: 0.9 % Sodium Chloride 1,000 ML 80 ML IVCONT ×2 (11:09→23:07)
[2023-07-09 11:16] LABS: Glucose, Whole Blood 174 mg/dL (60-115)
--- NOTE | 2023-07-09 11:38 | P.PNOP_ITS ---
Subjective Subjective Date of Service: 07/09/23 Interval history: POD 2 s/p RT nir no overnight events resting in bed denies cp, sob, palpitations Physical Exam Vital Signs: Vital Signs: Last Vital Signs Temp 98.3 F 07/09/23 08:32 Pulse 111 H 07/09/23 08:41 Resp 16 07/09/23 08:32 BP 126/80 07/09/23 08:41 Pulse Ox 94 07/09/23 08:41 O2 Del Method Nasal Cannula 07/09/23 08:32 O2 Flow Rate 2 07/09/23 08:32 BMI result Body Mass Index 33.3 Const: General: cooperative, healthy appearing and no acute distress Resp: Effort & Inspection: normal respiratory effort and able to speak in complete sentences Cardio: Rate: regular rate Peripheral pulses: Peripheral pulses 2+ throughout GI: Palpation (GI): Soft to palpation Skin: General skin exam: no rashes or lesions noted Extrem: Other: incision clean dry and intact. Wink intact. No erythema or effusion. Calf supple nontender. She is able to dorsi flex and plantar flex . Neurovascularly intact. Procedures Date of Service Date of Service: 07/09/23 Progress Note: A&P Assessment and plan (1) History of total right hip replacement: Status: Acute Assessment and Plan: * Continue pain mgmnt * lovenox bridge until INR therapeutic 2-3 * PT / OT for RT NIR posterior precautions * Dispo planning-rehab placement and DOROTHY Time Spent With Patient Time: Total time managing care of this patient today ____ minutes. Quality Stroke Does the patient have a stroke diagnosis?: No VTE Prior VTE?: No VTE Risk Level:: Surgical - very high VTE Device Contraindication: N/A - Device Ordered VTE Drug Contraindication: N/A - Med Ordered
[2023-07-09] MEDS: Insulin Lispro 100 UNIT/ML 3 ML VIAL SUBCUT ×3 (11:50→21:06)
--- NOTE | 2023-07-09 13:17 | HO.PM.IMPN ---
Subjective Subjective Date of Service: 07/09/23 Interval History: seen and examined this morning follow up for medical consultation feeling better, but some dizziness prior to working with PT today Review of Systems Review of Systems: Yes all other systems are reviewed and are negative Constitutional Constitutional: Denies chills and Denies fever(s) Cardiovascular Cardiovascular: Denies chest pain, Reports lightheadedness and Denies dyspnea Respiratory Respiratory: Denies cough and Denies dyspnea Gastrointestinal Gastrointestinal: Denies abdominal pain Physical Exam Vital Signs: Vital Signs: Last Vital Signs Temp 97.8 F 07/09/23 12:48 Pulse 100 07/09/23 12:48 Resp 16 07/09/23 12:48 BP 128/57 L 07/09/23 12:48 Pulse Ox 97 07/09/23 12:48 O2 Del Method Nasal Cannula 07/09/23 12:48 O2 Flow Rate 2 07/09/23 12:48 BMI result Body Mass Index 33.3 Const: General: cooperative, comfortable, no acute distress, alert and awake Nutritional Appearance: overweight Orientation/consciousness: patient oriented x3 Resp: Effort & Inspection: normal respiratory effort, able to speak in complete sentences, no respiratory distress and no use of accessory muscles Cardio: Rate: regular rate GI: Inspection: No distended Palpation (GI): Soft to palpation and nontender : Other: suprapubic catheter Skin: Other: right hip bandage c/d without staining Neuro: General: patient oriented x3, moves all extremities and CN's II-XI intact bilaterally Extrem: General: Yes no pedal edema Objective Data Active Medications Acetaminophen (Acetaminophen 325 Mg Tablet) 650 mg PO Q6H PRN PRN Reason: Pain, Mild (Pain Scale 1-3) Last Admin: 07/08/23 16:08 Dose: 650 mg Documented By: XAVIER Celecoxib (Celecoxib 200 Mg Capsule) 200 mg PO BID [facility] Last Admin: 07/08/23 21:07 Dose: 200 mg Documented By: CHASE Dextrose (Dextrose 50 % 25 Gm/50 Ml Syringe) 25 gm IVPUSH Q15M PRN; Protocol PRN Reason: per Hypoglycemia Standing Ord. Docusate Sodium (Docusate Sodium 100 Mg Capsule) 100 mg PO BID [facility] Last Admin: 07/09/23 08:37 Dose: 100 mg Documented By: YUNIER Enoxaparin Sodium (Enoxaparin Sodium 40 Mg/0.4 Ml Syringe) 40 mg SUBCUT Q12H [facility] Last Admin: 07/09/23 01:04 Dose: 40 mg Documented By: CHASE Furosemide (Furosemide 20 Mg Tablet) 20 mg PO DAILY [facility]; Protocol Last Admin: 07/08/23 08:08 Dose: 20 mg Documented By: DAVE Glucose (Glucose Gel 15 Gm Gel..Gram.) 15 gm PO Q15M PRN; Protocol PRN Reason: per Hypoglycemia Standing Ord. Hydromorphone HCl (Hydromorphone Hcl 0.5 Mg/0.5 Ml Syringe) 0.25 mg IVPUSH Q4H PRN; Protocol PRN Reason: Pain, Severe (Pain Scale 7-10) Last Admin: 07/09/23 08:39 Dose: 0.25 mg Documented By: YUNIER Sodium Chloride (Ns) 1,000 mls @ 80 mls/hr IVCONT .[id number] [facility] Last Admin: 07/09/23 11:09 Dose: 80 mls/hr Documented By: YUNIER Insulin Glargine (Insulin Glargine,Hum.Rec.Anlog 100 Unit/Ml 10 Ml Vial) 28 unit SUBCUT BEDTIME [facility] Last Admin: 07/08/23 21:08 Dose: 28 unit Documented By: CHASE Insulin Human Lispro (Insulin Lispro 100 Unit/Ml 3 Ml Vial) 0 unit SUBCUT QIDACHS [facility]; Protocol Last Admin: 07/09/23 11:50 Dose: 2 unit Documented By: YUNIER Levothyroxine Sodium (Levothyroxine Sodium 25 Mcg Tablet) 25 mcg PO DAILY@0600 [facility] Last Admin: 07/09/23 06:40 Dose: 25 mcg Documented By: CHASE Magnesium Hydroxide (Milk Of Magnesia 30 Ml Oral.Susp) 30 ml PO DAILY PRN PRN Reason: Constipation Meclizine HCl (Meclizine Hcl 12.5 Mg Tablet) 12.5 mg PO Q8H PRN PRN Reason: Vertigo Melatonin (Melatonin 3 Mg Tablet) 9 mg PO BEDTIME PRN PRN Reason: Sleep Last Admin: 07/08/23 21:05 Dose: 9 mg Documented By: CHASE Metoprolol Succinate (Metoprolol Succinate Er 100 Mg Tab.Er.24h) 200 mg PO DAILY [facility]; Protocol Last Admin: 07/09/23 08:37 Dose: 200 mg Documented By: YUNIER Ondansetron HCl (Ondansetron Hcl 4 Mg/2 Ml Vial) 4 mg IVPUSH Q8H PRN PRN Reason: Nausea and Vomiting Oxycodone HCl (Oxycodone Hcl Immed Release 5 Mg Tablet) 5 mg PO Q4H PRN PRN Reason: Pain, Moderate(Pain Scale 4-6) Last Admin: 07/08/23 21:06 Dose: 5 mg Documented By: CHASE Oxycodone HCl (Oxycodone Hcl Er 10 Mg Tab.Er.12h) 10 mg PO BID [facility] Last Admin: 07/09/23 08:38 Dose: 10 mg Documented By: YUNIER Pharmacy Consult (Consult Rx Vancomycin Dosing) 1 each MISCELLANE DAILY PRN PRN Reason: Consult order Sodium Chloride (0.9 % Sodium Chloride Flush 3 Ml Syringe) 3 ml IVFLUSH QSHIFT [facility] Last Admin: 07/09/23 08:39 Dose: 3 ml Documented By: YUNIER Trimethoprim/Sulfamethoxazole (Sulfamethox/Trimeth 800/160 Tablet) 1 tab PO DAILY PRN PRN Reason: prevent infection Warfarin Sodium (Warfarin Sodium 2 Mg Tablet) 2 mg PO DAILY@1800 [facility] Last Admin: 07/08/23 18:14 Dose: 2 mg Documented By: XAVIER Labs 07/09/23 05:30 07/09/23 05:30 Labs: Laboratory Results - last 24 hr 07/08/23 07/08/23 07/08/23 11:26 16:18 20:42 MCV MCH MCHC RDW Plt Count MPV Immature Gran % (Auto) Neut % (Auto) Lymph % (Auto) Bryan % (Auto) Eos % (Auto) Baso % (Auto) Lymph # (Auto) Bryan # (Auto) Eos # (Auto) Baso # (Auto) Abs Immat Gran (auto) Absolute Neuts (auto) Absolute Nucleated RBC Nucleated RBC % (auto) Smear Tech's Comments PT INR Anion Gap Estim Creat Clear Calc Estimated GFR POC Glucose 207 H 218 H Fasting Glucose Calcium Random Vancomycin Blood Type B Positive Antibody Screen NEGATIVE Crossmatch (AHG) See Detail 07/09/23 07/09/23 07/09/23 05:30 07:13 11:09 MCV 90.2 MCH 28.8 MCHC 32.0 RDW 17.1 H Plt Count 223 MPV 9.7 Immature Gran % (Auto) 1.1 H Neut % (Auto) 59.7 Lymph % (Auto) 19.4 L Bryan % (Auto) 17.7 H Eos % (Auto) 1.5 Baso % (Auto) 0.6 Lymph # (Auto) 2.2 Bryan # (Auto) 2.0 H Eos # (Auto) 0.2 Baso # (Auto) 0.1 Abs Immat Gran (auto) 0.12 H Absolute Neuts (auto) 6.7 Absolute Nucleated RBC 0.000 Nucleated RBC % (auto) 0.0 Smear Tech's Comments VERIFIED PT 18.5 H D INR 1.5 H Anion Gap 11 L Estim Creat Clear Calc 20.1 Estimated GFR 19 POC Glucose 133 H 174 H Fasting Glucose 149 H Calcium 7.9 L Random Vancomycin 16.1 Blood Type Antibody Screen Crossmatch (AHG) Assessment and Plan (1) DOROTHY (acute kidney injury): Status: Acute Plan This is an 82-year-old woman status post right total hip arthroplasty Hypotension Likely secondary to anemia BP improved after 1unit of blood Hold Lasix Acute blood loss anemia Status post right hip surgery s/p 1 unit PRBC H/H stable follow CBC DOROTHY likely due to hypotension, but also on vanco SCr up to 2.4 will d/c vanco hold lasix, NSAIDs start IVF follow BMP, if no improvement tomorrow, would consult nephrology Right total hip arthroplasty Management as per surgical team Pain management PT paroxysmal atrial fibrillation Rate controlled Continue metoprolol, warfarin, INR 1.5. Follow INR Diabetes mellitus type 2 Sliding scale, ADA diet Hypothyroidism Continue levothyroxine History of CVA Continue aspirin History of coronary artery disease Continue aspirin, statin and beta-leonel History of hypotonic neurogenic bladder Suprapubic catheter in place Thank you for allowing us to participate in the care of this patient, we will follow along with you. Time Spent With Patient Time: Total time managing care of this patient today ____ minutes. Quality Stroke Does the patient have a stroke diagnosis?: No VTE Prior VTE?: No VTE Risk Level:: Surgical - very high VTE Device Contraindication: N/A - Device Ordered VTE Drug Contraindication: N/A - Med Ordered
[2023-07-09] MEDS: Acetaminophen 325 MG TABLET 650 MG PO (14:11)
[2023-07-09] MEDS: oxyCODONE HCl Immed Release 5 MG TABLET PO (14:12)
[2023-07-09 16:42] LABS: Glucose, Whole Blood 278 mg/dL (60-115)
[2023-07-09] MEDS: Warfarin Sodium 2 MG TABLET PO (17:01)
[2023-07-09 20:57] LABS: Glucose, Whole Blood 199 mg/dL (60-115)
[2023-07-09] MEDS: Insulin Glargine,Hum.rec.anlog 100 UNIT/ML 10 ML VIAL 28 UNIT SUBCUT (21:09)
[2023-07-10] VITALS (7 sets, daily range): BP systolic 117–132; BP diastolic 59–68; PULSE 80–98; RESP 16–20; TEMP 36.1–37; O2SAT 92–95
[2023-07-10] MEDS: Enoxaparin Sodium 30 MG/0.3 ML SYRINGE SUBCUT ×2 (02:21→15:42)
[2023-07-10] MEDS: Levothyroxine Sodium 25 MCG TABLET PO (05:41)
[2023-07-10 06:19] LABS: Basophils Absolute Auto 0.1 X10*3/uL (0.0-0.2); Basophils Percent Auto 0.5 % (0-2); Eosinophils Absolute Auto 0.4 X10*3/uL (0.0-0.4); Eosinophils Percent Auto 3.9 % (0-4); Hematocrit 29.9 % (37.0-47.0); Hemoglobin 9.3 g/dl (12.0-16.0); Imm Gran Abs Auto 0.17 X10*3/uL (0.00-0.03); Imm Gran Pct Auto 1.6 % (0.0-0.4); Lymphocytes Absolute Auto 2.3 X10*3/uL (1.2-4.9); Lymphocytes Percent Auto 21.9 % (20-40); MANUAL DIFF FLAG SCAN; Mean Corpuscular HGB Conc 31.1 g/dl (31.0-35.0); Mean Corpuscular Hemoglobin 28.4 pg (27.0-33.0); Mean Corpuscular Volume 91.2 fL (80.0-98.0); Mean Platelet Volume 9.2 fL (9.4-12.3); Monocytes Absolute Auto 1.8 X10*3/uL (0.1-1.2); Monocytes Percent Auto 16.8 % (2-11); Neutrophils Absolute Auto 5.8 x10*3/uL (2.0-8.3); Neutrophils Percent Auto 55.3 % (45-73); Platelet Count 239 X10*3/uL (160-400); Red Blood Count 3.28 X10*6/uL (4.20-5.50); SCAN SMEAR FLAG 1; White Blood Count 10.4 X10*3/uL (4.8-10.8)
[2023-07-10 06:21] LABS: Anion Gap 12 (12-20); Blood Urea Nitrogen 37 mg/dL (9-16); Carbon Dioxide 23 mmol/L (22-29); Chloride 107 mmol/L (96-108); Estimated Glomerular Filt Rate 24; Glucose Fasting 120 mg/dL (60-99); Potassium 5.1 mmol/L (3.3-5.1); Sodium 137 mmol/L (135-145)
[2023-07-10 06:26] LABS: INTERNATIONAL NORM RATIO 1.8 (0.9-1.1); Prothrombin Time 22.5 SEC (11.1-13.3)
[2023-07-10 06:55] LABS: SLIDE REVIEW VERIFIED
[2023-07-10 07:58] LABS: Glucose, Whole Blood 105 mg/dL (60-115)
[2023-07-10] MEDS: Metoprolol Succinate ER 100 MG TAB.ER.24H 200 MG PO (08:08)
[2023-07-10] MEDS: oxyCODONE HCl ER 10 MG TAB.ER.12H PO ×2 (08:08→20:06)
[2023-07-10] MEDS: Docusate Sodium 100 MG CAPSULE PO ×2 (08:08→20:06)
--- NOTE | 2023-07-10 10:47 | MHC.CM.PN ---
Per MD rounds patient is scheduled for an US r/t DOROTHY. Discharge is anticipated tomorrow. Margarette/Susy has been notified. DP to [place] via BLS. Authorization received for [facility].
[2023-07-10] MEDS: 0.9 % Sodium Chloride 1,000 ML 80 ML IVCONT (11:18)
[2023-07-10 12:01] LABS: Glucose, Whole Blood 134 mg/dL (60-115)
[2023-07-10 12:09] LABS: Vancomycin Random 11.6 mcg/mL (15-20)
[2023-07-10] MEDS: Milk of Magnesia 30 ML ORAL.SUSP PO (13:23)
--- NOTE | 2023-07-10 14:01 | HO.PM.IMPN ---
Subjective Subjective Date of Service: 07/10/23 Interval History: seen and examined this morning follow up for medical consultation denies sob, having some pain at the right hip, some right leg pain Review of Systems Review of Systems: Yes all other systems are reviewed and are negative Constitutional Constitutional: Denies chills and Denies fever(s) Cardiovascular Cardiovascular: Denies chest pain, Denies palpitations and Denies dyspnea Respiratory Respiratory: Denies cough and Denies dyspnea Gastrointestinal Gastrointestinal: Denies abdominal pain Endocrine Endocrine: Denies palpitations Physical Exam Vital Signs: Vital Signs: Last Vital Signs Temp 96.9 F 07/10/23 07:43 Pulse 96 07/10/23 07:43 Resp 16 07/10/23 07:43 BP 132/64 07/10/23 07:43 Pulse Ox 92 07/10/23 07:43 O2 Del Method Nasal Cannula 07/10/23 07:43 O2 Flow Rate 2.0 07/10/23 07:43 BMI result Body Mass Index 33.3 Const: General: cooperative, comfortable, no acute distress, alert and awake Nutritional Appearance: overweight Orientation/consciousness: patient oriented x3 Resp: Effort & Inspection: normal respiratory effort, able to speak in complete sentences, no respiratory distress and no use of accessory muscles Cardio: Rate: regular rate GI: Inspection: No distended Palpation (GI): Soft to palpation and nontender : Other: suprapubic catheter Skin: Other: right hip bandage c/d without staining Neuro: General: patient oriented x3, moves all extremities and CN's II-XI intact bilaterally Extrem: General: Yes no pedal edema Objective Data Active Medications Acetaminophen (Acetaminophen 325 Mg Tablet) 650 mg PO Q6H PRN PRN Reason: Pain, Mild (Pain Scale 1-3) Last Admin: 07/09/23 14:11 Dose: 650 mg Documented By: YUNIER Celecoxib (Celecoxib 200 Mg Capsule) 200 mg PO BID [facility] Last Admin: 07/08/23 21:07 Dose: 200 mg Documented By: CHASE Dextrose (Dextrose 50 % 25 Gm/50 Ml Syringe) 25 gm IVPUSH Q15M PRN; Protocol PRN Reason: per Hypoglycemia Standing Ord. Docusate Sodium (Docusate Sodium 100 Mg Capsule) 100 mg PO BID [facility] Last Admin: 07/10/23 08:08 Dose: 100 mg Documented By: YUNIER Enoxaparin Sodium (Enoxaparin Sodium 30 Mg/0.3 Ml Syringe) 30 mg SUBCUT Q12H [facility] Last Admin: 07/10/23 02:21 Dose: 30 mg Documented By: ISIS Furosemide (Furosemide 20 Mg Tablet) 20 mg PO DAILY [facility]; Protocol Last Admin: 07/08/23 08:08 Dose: 20 mg Documented By: DAVE Glucose (Glucose Gel 15 Gm Gel..Gram.) 15 gm PO Q15M PRN; Protocol PRN Reason: per Hypoglycemia Standing Ord. Hydromorphone HCl (Hydromorphone Hcl 0.5 Mg/0.5 Ml Syringe) 0.25 mg IVPUSH Q4H PRN; Protocol PRN Reason: Pain, Severe (Pain Scale 7-10) Last Admin: 07/09/23 08:39 Dose: 0.25 mg Documented By: YUNIER Insulin Glargine (Insulin Glargine,Hum.Rec.Anlog 100 Unit/Ml 10 Ml Vial) 28 unit SUBCUT BEDTIME [facility] Last Admin: 07/09/23 21:09 Dose: 28 unit Documented By: ISIS Insulin Human Lispro (Insulin Lispro 100 Unit/Ml 3 Ml Vial) 0 unit SUBCUT QIDACHS [facility]; Protocol Last Admin: 07/10/23 12:10 Dose: Not Given Documented By: YUNIER Non-Admin Reason: No Insulin Coverage Levothyroxine Sodium (Levothyroxine Sodium 25 Mcg Tablet) 25 mcg PO DAILY@0600 [facility] Last Admin: 07/10/23 05:41 Dose: 25 mcg Documented By: ISIS Magnesium Hydroxide (Milk Of Magnesia 30 Ml Oral.Susp) 30 ml PO DAILY PRN PRN Reason: Constipation Last Admin: 07/10/23 13:23 Dose: 30 ml Documented By: YUNIER Meclizine HCl (Meclizine Hcl 12.5 Mg Tablet) 12.5 mg PO Q8H PRN PRN Reason: Vertigo Melatonin (Melatonin 3 Mg Tablet) 9 mg PO BEDTIME PRN PRN Reason: Sleep Last Admin: 07/08/23 21:05 Dose: 9 mg Documented By: CHASE Metoprolol Succinate (Metoprolol Succinate Er 100 Mg Tab.Er.24h) 200 mg PO DAILY [facility]; Protocol Last Admin: 07/10/23 08:08 Dose: 200 mg Documented By: YUNIER Ondansetron HCl (Ondansetron Hcl 4 Mg/2 Ml Vial) 4 mg IVPUSH Q8H PRN PRN Reason: Nausea and Vomiting Oxycodone HCl (Oxycodone Hcl Immed Release 5 Mg Tablet) 5 mg PO Q4H PRN PRN Reason: Pain, Moderate(Pain Scale 4-6) Last Admin: 07/09/23 14:12 Dose: 5 mg Documented By: YUNIER Oxycodone HCl (Oxycodone Hcl Er 10 Mg Tab.Er.12h) 10 mg PO BID [facility] Last Admin: 07/10/23 08:08 Dose: 10 mg Documented By: YUNIER Pharmacy Consult (Consult Rx Vancomycin Dosing) 1 each MISCELLANE DAILY PRN PRN Reason: Consult order Sodium Chloride (0.9 % Sodium Chloride Flush 3 Ml Syringe) 3 ml IVFLUSH QSHIFT [facility] Last Admin: 07/10/23 06:58 Dose: Not Given Documented By: YUNIER Non-Admin Reason: IV Running Warfarin Sodium (Warfarin Sodium 2 Mg Tablet) 2 mg PO DAILY@1800 [facility] Last Admin: 07/09/23 17:01 Dose: 2 mg Documented By: YUNIER Labs 07/10/23 06:00 07/10/23 06:00 Labs: Laboratory Results - last 24 hr 07/09/23 07/09/23 07/10/23 16:35 20:51 06:00 MCV 91.2 MCH 28.4 MCHC 31.1 RDW 17.0 H Plt Count 239 MPV 9.2 L Immature Gran % (Auto) 1.6 H Neut % (Auto) 55.3 Lymph % (Auto) 21.9 Zavala % (Auto) 16.8 H Eos % (Auto) 3.9 Baso % (Auto) 0.5 Lymph # (Auto) 2.3 Zavala # (Auto) 1.8 H Eos # (Auto) 0.4 Baso # (Auto) 0.1 Abs Immat Gran (auto) 0.17 H Absolute Neuts (auto) 5.8 Absolute Nucleated RBC 0.000 Nucleated RBC % (auto) 0.0 Smear Tech's Comments VERIFIED PT 22.5 H D INR 1.8 H Anion Gap 12 Estim Creat Clear Calc 24.0 Estimated GFR 24 POC Glucose 278 H 199 H Fasting Glucose 120 H Calcium 8.0 L Random Vancomycin 07/10/23 07/10/23 07/10/23 07:20 10:59 11:41 MCV MCH MCHC RDW Plt Count MPV Immature Gran % (Auto) Neut % (Auto) Lymph % (Auto) Zavala % (Auto) Eos % (Auto) Baso % (Auto) Lymph # (Auto) Zavala # (Auto) Eos # (Auto) Baso # (Auto) Abs Immat Gran (auto) Absolute Neuts (auto) Absolute Nucleated RBC Nucleated RBC % (auto) Smear Tech's Comments PT INR Anion Gap Estim Creat Clear Calc Estimated GFR POC Glucose 105 134 H Fasting Glucose Calcium Random Vancomycin 11.6 L Assessment and Plan (1) DOROTHY (acute kidney injury): Status: Acute Plan This is an 82-year-old woman status post right total hip arthroplasty Hypotension. resolved Likely secondary to anemia BP improved after 1 unit of blood Hold Lasix Acute blood loss anemia Status post right hip surgery s/p 1 unit PRBC H/H stable DOROTHY likely due to hypotension SCr up to 2.4, trending down to 2 will d/c vanco hold lasix, NSAIDs Right total hip arthroplasty Management as per surgical team Pain management PVD Doppler US RLE negative for acute dvt arterial US RLE c/w femoral level dz. d/w vascular - outpatient follow up, no inpatient intervention required paroxysmal atrial fibrillation Rate controlled Continue metoprolol, warfarin INR 1.8. Follow INR Diabetes mellitus type 2 continue Lantus (decreased dose from baseline) Sliding scale, ADA diet Hypothyroidism Continue levothyroxine History of CVA Continue aspirin History of coronary artery disease Continue aspirin, statin and beta-leonel History of hypotonic neurogenic bladder Suprapubic catheter in place Thank you for allowing us to participate in the care of this patient, we will follow along with you. Time Spent With Patient Time: Total time managing care of this patient today ____ minutes. Quality Stroke Does the patient have a stroke diagnosis?: No VTE Prior VTE?: No VTE Risk Level:: Surgical - very high VTE Device Contraindication: N/A - Device Ordered VTE Drug Contraindication: N/A - Med Ordered
[2023-07-10] MEDS: 0.9 % Sodium Chloride Flush 3 ML SYRINGE IVFLUSH ×2 (15:42→20:10)
[2023-07-10 16:19] LABS: Glucose, Whole Blood 147 mg/dL (60-115)
[2023-07-10] MEDS: Warfarin Sodium 2 MG TABLET PO (18:17)
[2023-07-10 20:27] LABS: Glucose, Whole Blood 182 mg/dL (60-115)
[2023-07-10] MEDS: Insulin Glargine,Hum.rec.anlog 100 UNIT/ML 10 ML VIAL 28 UNIT SUBCUT (20:48)
[2023-07-10] MEDS: Insulin Lispro 100 UNIT/ML 3 ML VIAL SUBCUT (20:49)
[2023-07-10] MEDS: HYDROmorphone HCl 0.5 MG/0.5 ML SYRINGE 0.25 MG IVPUSH (21:33)
[2023-07-11] MEDS: HYDROmorphone HCl 0.5 MG/0.5 ML SYRINGE 0.25 MG IVPUSH ×2 (02:51→08:55)
[2023-07-11] MEDS: Enoxaparin Sodium 30 MG/0.3 ML SYRINGE SUBCUT (02:52)
[2023-07-11 04:00] VITALS: BP 119/71; PULSE 84; RESP 16; TEMP 36.6; O2SAT 93
[2023-07-11 05:49] LABS: INTERNATIONAL NORM RATIO 2.3 (0.9-1.1); Prothrombin Time 27.5 SEC (11.1-13.3)
[2023-07-11 06:01] LABS: Anion Gap 10 (12-20); Blood Urea Nitrogen 29 mg/dL (9-16); Calcium 8.6 mg/dL (8.4-10.2); Carbon Dioxide 23 mmol/L (22-29); Chloride 108 mmol/L (96-108); Creatinine Clr Calc Pharmacy 32.4; Estimated Glomerular Filt Rate 34; Glucose Random 71 mg/dL (60-115); Potassium 4.3 mmol/L (3.3-5.1); Sodium 137 mmol/L (135-145)
[2023-07-11] MEDS: Levothyroxine Sodium 25 MCG TABLET PO (06:12)
[2023-07-11] MEDS: Acetaminophen 325 MG TABLET 650 MG PO (06:12)
[2023-07-11] MEDS: oxyCODONE HCl Immed Release 5 MG TABLET PO (06:12)
[2023-07-11 07:07] LABS: Glucose, Whole Blood 71 mg/dL (60-115)
[2023-07-11 07:21] VITALS: BP 135/75; PULSE 88; RESP 16; TEMP 36; O2SAT 92
[2023-07-11] MEDS: Metoprolol Succinate ER 100 MG TAB.ER.24H 200 MG PO (08:54)
[2023-07-11] MEDS: oxyCODONE HCl ER 10 MG TAB.ER.12H PO (08:54)
[2023-07-11] MEDS: 0.9 % Sodium Chloride Flush 3 ML SYRINGE IVFLUSH (08:54)
[2023-07-11] MEDS: Docusate Sodium 100 MG CAPSULE PO (08:54)
[2023-07-11 08:55] VITALS: RESP 19
--- NOTE | 2023-07-11 09:54 | P.DS_ITS ---
DS: Providers Provider Date of Service: 07/11/23 Date of admission: 07/07/23 09:34 Primary care physician: Nano Delaney MD Consults: 07/07/23 17:13 Consult to Hospitalist Routine Comment: Consulting Provider: Hospitalist Reason For Exam: DM, Afib, h/o MRSA UTI DS: Diagnosis Discharge Diagnosis (1) DOROTHY (acute kidney injury): Status: Acute DS: Summary Hospital Course Hospital Course: The patient underwent a successful right total hip arthroplasty, they were transferred to PACU and then to the floor to recover. During their stay, their vitals were stable, afebrile at 96.8. Labs were unremarkable, H/H 9.3/29.9. POD 1 they were started on a Lovenox bridge to Coumadin once INR was above 2 for DVT ppx, they also received Physical Therapy services twice a day. Prior to discharge, their dressing was changed, incision clean dry and intact, new Aquacel dressing applied and the plan was to be discharged home with VNA services. Time Spent with Patient Time attestation: Total time managing care of this patient today ____ minutes. Discharge coordination time: Less than 30 minutes Quality: Safe Use of Opioids Does Pt have an Active Cancer Diagnosis on the Problem List?: No Quality: Stroke Does the patient have a stroke diagnosis?: No Physical Exam Vital Signs: Vital Signs: Last Vital Signs Temp 96.8 F 07/11/23 07:21 Pulse 88 07/11/23 07:21 Resp 19 07/11/23 08:55 BP 135/75 07/11/23 07:21 Pulse Ox 92 07/11/23 07:21 O2 Del Method Room Air 07/11/23 07:21 O2 Flow Rate 2.0 07/10/23 07:43 BMI result Body Mass Index 33.3 Const: General: cooperative, healthy appearing and no acute distress Resp: Effort & Inspection: normal respiratory effort and able to speak in complete sentences Cardio: Rate: regular rate Peripheral pulses: Peripheral pulses 2+ throughout GI: Palpation (GI): Soft to palpation Skin: General skin exam: no rashes or lesions noted Extrem: Other: incision clean dry and intact. Rafi intact. No erythema or effusion. Calf supple nontender. She is able to dorsi flex and plantar flex . Neurovascularly intact. DS: Data Data Completed and Pending Completed studies during hospitalization [Text1]: Pending at discharge 07/07/23 13:55 Surgical [PTH] Routine Procedures Extirpation of Matter from Bladder, Via Natural or Artificial Opening Endoscopic (06/27/22) Fluoroscopy of Kidneys, Ureters and Bladder (06/27/22) Labs on day of discharge: Laboratory Results - last 24 hr 07/10/23 07/10/23 07/10/23 10:59 11:41 15:56 PT INR Sodium Potassium Chloride Carbon Dioxide Anion Gap BUN Creatinine Estim Creat Clear Calc Estimated GFR POC Glucose 134 H 147 H Random Glucose Calcium Random Vancomycin 11.6 L 07/10/23 07/11/23 07/11/23 20:18 05:26 07:03 PT 27.5 H D INR 2.3 H Sodium 137 Potassium 4.3 Chloride 108 Carbon Dioxide 23 Anion Gap 10 L BUN 29 H Creatinine 1.49 H Estim Creat Clear Calc 32.4 Estimated GFR 34 POC Glucose 182 H 71 Random Glucose 71 Calcium 8.6 D Random Vancomycin Discharge Plan Discharge Anticipated Discharge Date/Time: 07/09/23 09:33 Patient Disposition: Xfer SNF Discharge Diagnosis: RT NIR Referrals: [facility] [Outside] Enrique Tapia MD [Physician] - 1 Week Ronni Sharpe PA-C [Physician Master Planner] - 2 Weeks (07/23/23 2:00 [facility] Ronni Sharpe PA-C) Discharge Medications: New oxycodone 5 mg Tablet 5 mg PO Q4H PRN (Reason: Pain, Moderate(Pain Scale 4-6)) 7 Days Qty: 42 0RF Rx Instructions: Partial Fill upon patient request. acetaminophen 325 mg Tablet 650 mg PO Q6H PRN (Reason: Pain, Mild (Pain Scale 1-3)) 30 Days Qty: 240 0RF docusate sodium 100 mg Capsule 100 mg PO BID 30 Days Qty: 60 0RF Continued atorvastatin 10 mg tablet 10 mg PO BEDTIME Qty: 90 3RF amlodipine 5 mg tablet 10 mg PO DAILY 90 Days Qty: 180 3RF melatonin 5 mg tablet 10 mg PO BEDTIME PRN (Reason: Sleep) sulfamethoxazole-trimethoprim [Bactrim DS] 800-160 mg tablet 1 tab PO DAILY PRN (Reason: prevent infection) Qty: 30 1RF Rx Instructions: Take one tab day before, day of and day after SPT change to prevent infection insulin glargine [Lantus U-100 Insulin] 100 unit/mL solution 37 unit subcut BEDTIME Patient Comments: took half 07/06 at hs metoprolol succinate 200 mg tablet extended release 24 hr 200 mg PO DAILY Qty: 90 3RF magnesium hydroxide [Milk of Magnesia] 400 mg/5 mL Suspension 400 mg PO DAILY PRN (Reason: Constipation) warfarin 2 mg tablet 2 mg PO DAILY@1800 PreserVision AREDS 2,148 mcg-113 mg-45 mg-17.4mg Tablet 1 tab PO BID Rx Instructions: administer with AM and PM meals warfarin [Novto] 2 mg tablet 2 mg PO 5XW Protocol: Dose Management Condition: Thursday (Week One) Dose/Route: 2 mg Instruction: 1 x 2 mg tablet Condition: Thursday Dose/Route: 2 mg Instruction: 1 x 2 mg tablet Condition: Thursday Dose/Route: 3 mg Instruction: 1 x 1 mg tablet, 1 x 2 mg tablet Condition: Thursday Dose/Route: 2 mg Instruction: 1 x 2 mg tablet Condition: Dose/Route: 0 mg Instruction: 0 tablets Condition: Thursday Dose/Route: 0 mg Instruction: 0 tablets Condition: Thursday Dose/Route: 0 mg Instruction: 0 tablets Condition: Thursday (Week Two) Dose/Route: 0 mg Instruction: 0 tablets Condition: Thursday Dose/Route: 0 mg Instruction: 0 tablets Condition: Thursday Dose/Route: 2 mg Instruction: 1 x 2 mg tablet Condition: Thursday Dose/Route: 2 mg Instruction: 1 x 2 mg tablet Condition: Dose/Route: 2 mg Instruction: 1 x 2 mg tablet Condition: Thursday Dose/Route: 2 mg Instruction: 1 x 2 mg tablet Condition: Thursday Dose/Route: 2 mg Instruction: 1 x 2 mg tablet Protocol Text: Adjustment Start Date: Thursday06/30/23 INR Value: 1.4 INR Date: 06/30/23 Recheck Date: 07/13/23 Additional Instructions: AVOID GREEND TODAY AND TOMORROW, THEN AFTER THE PROCEDURE LOVENOX PER MD ORDERS RESUME WARFARIN PER MD ORDERS AT 2MG DAILY CALL WHEN HOME AND WITH ANY MEDICATION CHANGES Patient Comments: M-F, 1 mg on Thursday. followed by the coumadin clinic warfarin [] 1 mg tablet 1 mg PO 2XW Protocol: Dose Management Condition: Thursday (Week One) Dose/Route: 2 mg Instruction: 1 x 2 mg tablet Condition: Thursday Dose/Route: 2 mg Instruction: 1 x 2 mg tablet Condition: Thursday Dose/Route: 3 mg Instruction: 1 x 1 mg tablet, 1 x 2 mg tablet Condition: Thursday Dose/Route: 2 mg Instruction: 1 x 2 mg tablet Condition: Dose/Route: 0 mg Instruction: 0 tablets Condition: Thursday Dose/Route: 0 mg Instruction: 0 tablets Condition: Thursday Dose/Route: 0 mg Instruction: 0 tablets Condition: Thursday ( Two) Dose/Route: 0 mg Instruction: 0 tablets Condition: Thursday Dose/Route: 0 mg Instruction: 0 tablets Condition: Thursday Dose/Route: 2 mg Instruction: 1 x 2 mg tablet Condition: Thursday Dose/Route: 2 mg Instruction: 1 x 2 mg tablet Condition: Dose/Route: 2 mg Instruction: 1 x 2 mg tablet Condition: Thursday Dose/Route: 2 mg Instruction: 1 x 2 mg tablet Condition: Thursday Dose/Route: 2 mg Instruction: 1 x 2 mg tablet Protocol Text: Adjustment Start Date: Thursday06/30/23 INR Value: 1.4 INR Date: 06/30/23 Recheck Date: 07/13/23 Additional Instructions: AVOID GREEND TODAY AND TOMORROW, THEN AFTER THE PROCEDURE LOVENOX PER MD ORDERS RESUME WARFARIN PER MD ORDERS AT 2MG DAILY CALL WHEN HOME AND WITH ANY MEDICATION CHANGES Patient Comments: every Thursday and Thursday levothyroxine 25 mcg tablet 25 mcg PO DAILY aspirin 81 mg tablet,delayed release (DR/EC) 81 mg PO DAILY (DME) pen needle, diabetic [BD Cathy 2nd Gen Pen Needle] 32 gauge x 5/32 needle See Rx Instructions subcut DAILY Qty: 50 Rx Instructions: As directed (DME) lancets [FreeStyle Lancets] 28 gauge misc See Rx Instructions .ROUTE BID Qty: 100 Rx Instructions: As directed multivitamin [One Daily Multivitamin] Tablet 1 tab PO DAILY furosemide 20 mg tablet 20 mg PO DAILY insulin lispro [Humalog KwikPen Insulin] 100 unit/mL insulin pen subcut Patient Comments: if BG is above 200 Discontinued enoxaparin 80 mg/0.8 mL syringe 80 mg subcut BID Discharge Orders: Discharge Order (Routine); Ordered 07/11/23 Ordered By: Gem Henriquez Diet: Regular diet Activity on Discharge: Use cane or walker Stand Alone Forms: Patient Portal Discharge page Care Plan Goals: Restore function of joint Health Concerns: none Plan of Treatment: * Physical Therapy Pain management DVT prophylaxis Assessment: * Physical Therapy for Total hip arthroplasty: wbat, posterior precautions, gait training, ROM, strength * Limit stair climbing * No showering, no tub bath-keep dressing clean, dry and intact * No driving x6 weeks * Continue Lovenox until INR 2-3, then dc Lovenox * Follow up with [facility] in 2 weeks: * 07/23/2314:[facility] PA-[facility] Call to schedule appointment with Dr. Tapia to evaluate blood flow in right leg
--- NOTE | 2023-07-11 10:22 | MHC.CM.PN ---
PT WILL DC TO [facility] TODAY VIA [facility] AT 1200 HOURS
[2023-07-11 11:16] LABS: Glucose, Whole Blood 113 mg/dL (60-115)
--- NOTE | 2023-07-11 11:36 | HO.PM.IMPN ---
Subjective Subjective Date of Service: 07/11/23 Interval History: seen and examined this morning follow up for medical consultation feeling well, some pain right leg no sob, no cough, abdominal pain Review of Systems Review of Systems: Yes all other systems are reviewed and are negative Constitutional Constitutional: Denies chills and Denies fever(s) Cardiovascular Cardiovascular: Denies chest pain, Denies palpitations and Denies dyspnea Respiratory Respiratory: Denies cough and Denies dyspnea Endocrine Endocrine: Denies palpitations Physical Exam Vital Signs: Vital Signs: Last Vital Signs Temp 96.8 F 07/11/23 07:21 Pulse 88 07/11/23 07:21 Resp 19 07/11/23 08:55 BP 135/75 07/11/23 07:21 Pulse Ox 92 07/11/23 07:21 O2 Del Method Room Air 07/11/23 07:21 O2 Flow Rate 2.0 07/10/23 07:43 BMI result Body Mass Index 33.3 Const: General: cooperative, comfortable, no acute distress, alert and awake Nutritional Appearance: overweight Orientation/consciousness: patient oriented x3 Resp: Effort & Inspection: normal respiratory effort, able to speak in complete sentences, no respiratory distress and no use of accessory muscles Cardio: Rate: regular rate GI: Inspection: No distended Palpation (GI): Soft to palpation and nontender : Other: suprapubic catheter Neuro: General: patient oriented x3, moves all extremities and CN's II-XI intact bilaterally Extrem: General: Yes no pedal edema Objective Data Active Medications Acetaminophen (Acetaminophen 325 Mg Tablet) 650 mg PO Q6H PRN PRN Reason: Pain, Mild (Pain Scale 1-3) Last Admin: 07/11/23 06:12 Dose: 650 mg Documented By: OZORALB Celecoxib (Celecoxib 200 Mg Capsule) 200 mg PO BID [facility] Last Admin: 07/08/23 21:07 Dose: 200 mg Documented By: HEENEL Dextrose (Dextrose 50 % 25 Gm/50 Ml Syringe) 25 gm IVPUSH Q15M PRN; Protocol PRN Reason: per Hypoglycemia Standing Ord. Docusate Sodium (Docusate Sodium 100 Mg Capsule) 100 mg PO BID [facility] Last Admin: 07/11/23 08:54 Dose: 100 mg Documented By: COTEMA Enoxaparin Sodium (Enoxaparin Sodium 30 Mg/0.3 Ml Syringe) 30 mg SUBCUT Q12H [facility] Last Admin: 07/11/23 02:52 Dose: 30 mg Documented By: URMILA Furosemide (Furosemide 20 Mg Tablet) 20 mg PO DAILY [facility]; Protocol Last Admin: 07/08/23 08:08 Dose: 20 mg Documented By: DAVE Glucose (Glucose Gel 15 Gm Gel..Gram.) 15 gm PO Q15M PRN; Protocol PRN Reason: per Hypoglycemia Standing Ord. Hydromorphone HCl (Hydromorphone Hcl 0.5 Mg/0.5 Ml Syringe) 0.25 mg IVPUSH Q4H PRN; Protocol PRN Reason: Pain, Severe (Pain Scale 7-10) Last Admin: 07/11/23 08:55 Dose: 0.25 mg Documented By: VINICIUS Insulin Glargine (Insulin Glargine,Hum.Rec.Anlog 100 Unit/Ml 10 Ml Vial) 28 unit SUBCUT BEDTIME [facility] Last Admin: 07/10/23 20:48 Dose: 28 unit Documented By: URMILA Insulin Human Lispro (Insulin Lispro 100 Unit/Ml 3 Ml Vial) 0 unit SUBCUT QIDACHS [facility]; Protocol Last Admin: 07/11/23 11:25 Dose: Not Given Documented By: VINICIUS Non-Admin Reason: No Insulin Coverage Levothyroxine Sodium (Levothyroxine Sodium 25 Mcg Tablet) 25 mcg PO DAILY@0600 [facility] Last Admin: 07/11/23 06:12 Dose: 25 mcg Documented By: URMILA Magnesium Hydroxide (Milk Of Magnesia 30 Ml Oral.Susp) 30 ml PO DAILY PRN PRN Reason: Constipation Last Admin: 07/10/23 13:23 Dose: 30 ml Documented By: YUNIER Meclizine HCl (Meclizine Hcl 12.5 Mg Tablet) 12.5 mg PO Q8H PRN PRN Reason: Vertigo Melatonin (Melatonin 3 Mg Tablet) 9 mg PO BEDTIME PRN PRN Reason: Sleep Last Admin: 07/08/23 21:05 Dose: 9 mg Documented By: CHASE Metoprolol Succinate (Metoprolol Succinate Er 100 Mg Tab.Er.24h) 200 mg PO DAILY [facility]; Protocol Last Admin: 07/11/23 08:54 Dose: 200 mg Documented By: VINICIUS Ondansetron HCl (Ondansetron Hcl 4 Mg/2 Ml Vial) 4 mg IVPUSH Q8H PRN PRN Reason: Nausea and Vomiting Oxycodone HCl (Oxycodone Hcl Immed Release 5 Mg Tablet) 5 mg PO Q4H PRN PRN Reason: Pain, Moderate(Pain Scale 4-6) Last Admin: 07/11/23 06:12 Dose: 5 mg Documented By: WHITORALB Oxycodone HCl (Oxycodone Hcl Er 10 Mg Tab.Er.12h) 10 mg PO BID [facility] Last Admin: 07/11/23 08:54 Dose: 10 mg Documented By: VINIICUS Pharmacy Consult (Consult Rx Vancomycin Dosing) 1 each MISCELLANE DAILY PRN PRN Reason: Consult order Sodium Chloride (0.9 % Sodium Chloride Flush 3 Ml Syringe) 3 ml IVFLUSH QSHIFT [facility] Last Admin: 07/11/23 08:54 Dose: 3 ml Documented By: VINICIUS Warfarin Sodium (Warfarin Sodium 2 Mg Tablet) 2 mg PO DAILY@1800 [facility] Last Admin: 07/10/23 18:17 Dose: 2 mg Documented By: YUNIER Labs 07/10/23 06:00 07/11/23 05:26 Labs: Laboratory Results - last 24 hr 07/10/23 07/10/23 07/10/23 10:59 11:41 15:56 PT INR Anion Gap Estim Creat Clear Calc Estimated GFR POC Glucose 134 H 147 H Random Glucose Calcium Random Vancomycin 11.6 L 07/10/23 07/11/23 07/11/23 20:18 05:26 07:03 PT 27.5 H D INR 2.3 H Anion Gap 10 L Estim Creat Clear Calc 32.4 Estimated GFR 34 POC Glucose 182 H 71 Random Glucose 71 Calcium 8.6 D Random Vancomycin 07/11/23 11:05 PT INR Anion Gap Estim Creat Clear Calc Estimated GFR POC Glucose 113 Random Glucose Calcium Random Vancomycin Assessment and Plan (1) History of total right hip replacement: Status: Acute (2) Atrial fibrillation: Status: Acute (3) DOROTHY (acute kidney injury): Status: Acute Plan This is an 82-year-old woman status post right total hip arthroplasty Hypotension. resolved Likely secondary to anemia BP improved after 1 unit of blood can resume lasix on discharge Acute blood loss anemia Status post right hip surgery s/p 1 unit PRBC H/H has remained stable DOROTHY likely due to hypotension SCr up to 2.4, trending back down to 1.49 near baseline vanco stopped, would avoid NSAIDs if possible Right total hip arthroplasty Management as per surgical team PVD Doppler US RLE negative for acute dvt arterial US RLE c/w femoral level dz. d/w vascular - outpatient follow up, no inpatient intervention required paroxysmal atrial fibrillation Rate controlled Continue metoprolol, warfarin therapeutic with INR 2.3 today. Follow INR at facility Diabetes mellitus type 2 continue Lantus (decreased dose from baseline) Blood sugar has been controlled, would continue this same dose upon discharge. Sliding scale, ADA diet Hypothyroidism Continue levothyroxine History of CVA Continue aspirin History of coronary artery disease Continue aspirin, statin and beta-leonel History of hypotonic neurogenic bladder Suprapubic catheter in place Thank you for allowing us to participate in the care of this patient, we will follow along with you. Time Spent With Patient Time: Total time managing care of this patient today ____ minutes. Quality Stroke Does the patient have a stroke diagnosis?: No VTE Prior VTE?: No VTE Risk Level:: Surgical - very high VTE Device Contraindication: N/A - Device Ordered VTE Drug Contraindication: N/A - Med Ordered
== END 2023-07-11 12:15 | disposition skilled nursing facility (03) | DRG 470 ==
LOC: HO.SSSA 09:48 → HO.S3 15:51
PROVIDERS: Nurse Practitioner; Orthopaedic Surgery; Physician Assistant; Physician Assistant Medical; Admitting Provider Physician Assistant; PCP Internal Medicine; Visit Provider Physician Assistant
PROC: 0SR90JA Replacement of Right Hip Joint with Synthetic Substitute, Uncemented, Open Approach (ICD-10-PCS; CPT 27130; principal; 2023-07-07 11:50)
DX: M16.11 Unilateral primary osteoarthritis, right hip (principal); I50.22 Chronic systolic (congestive) heart failure; D62 Acute posthemorrhagic anemia; N17.9 Acute kidney failure, unspecified; I48.0 Paroxysmal atrial fibrillation; N31.9 Neuromuscular dysfunction of bladder, unspecified; I25.10 Atherosclerotic heart disease of native coronary artery without angina pectoris; R79.1 Abnormal coagulation profile; R09.02 Hypoxemia; E78.00 Pure hypercholesterolemia, unspecified; E03.9 Hypothyroidism, unspecified; N18.30 Chronic kidney disease, stage 3 unspecified; E11.22 Type 2 diabetes mellitus with diabetic chronic kidney disease; I95.9 Hypotension, unspecified; E11.42 Type 2 diabetes mellitus with diabetic polyneuropathy; E11.51 Type 2 diabetes mellitus with diabetic peripheral angiopathy without gangrene; Z79.890 Hormone replacement therapy; Z96.0 Presence of urogenital implants; Z87.440 Personal history of urinary (tract) infections; Z86.73 Personal history of transient ischemic attack (TIA), and cerebral infarction without residual deficits; Z79.82 Long term (current) use of aspirin; Z79.4 Long term (current) use of insulin; Z79.01 Long term (current) use of 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; Z79.899 Other long term (current) drug therapy
CPT/HCPCS: 36415; 72170; 80048; 80202; 82565; 82947; 85025; 85027; 85610; 86850; 86870; 86880; 86885; 86900; 86901; 86902; 86905; 86920; 86922; 87640; 87641; 88304; 88311; 93926; 93971; 97110; 97116; 97162; 97167; 97530; C1713; C1776; J0131; J1100; J1170; J1650; J2371; J2405; J2795; J3010; J3370; J3371; P9016

== ENCOUNTER → 2023-07-07 09:34 | Outpatient (BNV) | payer MEDICARE, SELFPAY | PROVIDERS: Admitting Provider Physician Assistant; PCP Internal Medicine; Visit Provider Physician Assistant | DX: I48.91 Unspecified atrial fibrillation (principal); N17.9 Acute kidney failure, unspecified; Z96.641 Presence of right artificial hip joint | CPT/HCPCS: 99222; 99232; 99233 ==

== ENCOUNTER → 2023-07-07 09:34 | Outpatient (BNV) | payer MEDICARE, SELFPAY | PROVIDERS: Admitting Provider Physician Assistant; PCP Internal Medicine; Visit Provider Orthopaedic Surgery | DX: Z96.641 Presence of right artificial hip joint (principal); N17.9 Acute kidney failure, unspecified | CPT/HCPCS: 27130; 99024 ==

== ENCOUNTER 2023-07-23 13:51 | Outpatient (AMB) | payer MEDICARE, SELFPAY ==
--- NOTE | 2023-07-23 13:53 | A.OFFVIS_ITS ---
Intake Intake Visit Reasons: PO-RT NIR 07/14/23 NE Intake Note: Belen a 82 year old female who presents today for a post operative right NIR, DOS 07/14/23 NE. Patient reports having pain in her groin area. States attended PT today and is sore. Allergies No Known Allergies [No Known Allergies*] Allergy (Verified 07/23/23 14:01) HPI PO-RT NIR 07/14/23 NE HPI Details 82-year-old female who returns to the [facility] today for post-op right NIR, 07/14/[address] Hines. She states she has pain in her groin region which is aggravated with lifting her leg. She continues to attend physical therapy and experiences soreness from the exercises. She is doing well otherwise and has no other concerns today. [facility] Medical History Atrial fibrillation CAD (coronary artery disease) CKD (chronic kidney disease) Congestive heart failure Current use of anticoagulant therapy CVA (cerebral vascular accident) Diabetes Elevated cholesterol Hip pain Hypertension Hypothyroidism Hypotonic neurogenic bladder Leg wound, left MRSA infection Myocardial infarction Neurogenic bladder Neuropathy Osteoarthritis of right hip PAF (paroxysmal atrial fibrillation) Recurrent UTI Shingles Urinary incontinence Varicose vein of leg Surgical History History of left knee replacement History of right knee joint replacement H/O heart artery stent H/O nasal polypectomy History of tubal ligation History of tonsillectomy and adenoidectomy Hx of cholecystectomy Family History Father Hx of angina pectoris Myocardial infarction Mother Ovarian cancer Stomach cancer Maternal Grandfather Hardening of the arteries of the heart Social History Household Members: Children Household Members Other:: daughter Housing: House Are you a primary childbirth and infant care teacher to a significant other at home: No Do you presently have visiting nurse or other home services: No Alcohol intake: never Patient Tobacco Use Status: Never used Tobacco Second Hand Smoke Exposure: No Advance Directives Date on File: 08/27/22 service: No Current occupational status: retired Review of Systems Const All systems reviewed & are unremarkable except as noted in HPI and below Physical Exam Extrem Other: Right hip: Incision clean, dry and intact. Mild discomfort with ROM of hip and hip flexion. NVI. Assessment & Plan Assessment & Plan (1) History of total right hip replacement: Code(s): Z96.641 - Presence of right artificial hip joint Plan Rafi removed, steri strips applied. She will continue working with PT and OT for gait training, glute strength and core/lumbar stabilization. No driving for another 4 weeks. She will require ppx abx for dental procedures. She will f/u in 4 weeks, sooner if needed. Patient Instructions: Scribed for Ronni Sharpe PA-C, by Wilbert Sy medical scientific liaison, on 07/23/2023 at 2:00 PM EST. I, Ronni Sharpe PA-C, have personally reviewed and agree with the information entered by the scribe. Coding Level of Care Code Global (22573) Diagnoses History of total right hip replacement Z96.641
== END 2023-07-23 14:24 | disposition home or self-care (01) ==
PROVIDERS: PCP Internal Medicine; Visit Provider Physician Assistant
DX: Z96.641 Presence of right artificial hip joint (principal)
CPT/HCPCS: 99024

== ENCOUNTER → 2023-07-23 13:51 | Outpatient (BNVA) | payer MEDICARE, SELFPAY | PROVIDERS: PCP Internal Medicine; Visit Provider Physician Assistant ==

== ENCOUNTER 2023-07-24 09:33 | Outpatient (AMB) | payer MEDICARE, SELFPAY ==
--- NOTE | 2023-07-24 10:01 | A.OFFVIS_ITS ---
Intake Intake Visit Reasons: sp tube change (first after redo) Intake Note: pt here for first sp tube change post op allergies - NKA meds - none pharm - [facility] It Portfolio Manager: It Portfolio Manager Present Allergies No Known Allergies [No Known Allergies*] Allergy (Verified 07/24/23 10:07) Medication List - Last Reconciled 07/24/23 by Keith Sharma MD acetaminophen 650 mg (2 x 325 mg) PO Q6H PRN 30 days amlodipine 10 mg (2 x 5 mg) PO DAILY 90 days aspirin 81 mg PO DAILY atorvastatin 10 mg PO BEDTIME docusate sodium 100 mg PO BID 30 days fluconazole 150 mg PO Q3D 2 doses furosemide 20 mg PO DAILY insulin glargine (Lantus U-100 Insulin) 37 units subcut BEDTIME insulin lispro (Humalog KwikPen (U-100) Insulin) subcut lancets (FreeStyle Lancets) As directed levothyroxine 25 mcg PO DAILY magnesium hydroxide (Milk of Magnesia) 400 mg PO DAILY PRN melatonin 10 mg PO BEDTIME PRN metoprolol succinate ER 200 mg PO DAILY multivitamin (One Daily Multivitamin tablet) 1 tab PO DAILY oxycodone 5 mg PO Q4H PRN 7 days pen needle, diabetic (BD Cathy 2nd Gen Pen Needle) As directed sulfamethoxazole-trimethoprim 800-160 mg (Bactrim DS) 1 tab PO DAILY PRN vitamins A,C,B-xjnb-pnuchq 2,148 mcg-113 mg-45 mg-17.4mg (PreserVision AREDS) 1 tab PO BID warfarin 2 mg PO DAILY@1800 warfarin (Jantoven) 1 mg See Protocol PO 2XW 90 days warfarin (Jantoven) 2 mg See Protocol PO 5XW 90 days HPI HPI Comments History of Present Illness Details Belen is a very pleasant female. 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 Current therapy includes 02/18 SPT and botox 07/21 Botox 100mg 12/22 Botox, 07/22 Botox, 05/22 Botox Prior treatment(s) included anticholinergics- , Many years ago - bladder sling suspension for stress incontinence. Obstetric history , 2, Para, 2. The frequency of the symptom(s) occur several times a day. Associated medical conditions diabetes Yes insulin since 2015 Prior testing included 09/18 Cysto - NAD. Therapeutic plan - continue tube change [facility] Medical History DOROTHY (acute kidney injury) Neuropathy Neurogenic bladder CVA (cerebral vascular accident) Shingles Elevated cholesterol Myocardial infarction MRSA infection Hip pain Leg wound, left Varicose vein of leg Osteoarthritis of right hip Current use of anticoagulant therapy Recurrent UTI Atrial fibrillation PAF (paroxysmal atrial fibrillation) Congestive heart failure Urinary incontinence Hypothyroidism Diabetes Hypertension CKD (chronic kidney disease) CAD (coronary artery disease) Hypotonic neurogenic bladder Surgical History History of left knee replacement History of right knee joint replacement H/O heart artery stent H/O nasal polypectomy History of tubal ligation History of tonsillectomy and adenoidectomy Hx of cholecystectomy Family History Father Hx of angina pectoris Myocardial infarction Mother Ovarian cancer Stomach cancer Maternal Grandfather Hardening of the arteries of the heart Social History Household Members: Children Household Members Other:: daughter Housing: House Are you a primary career services representative to a significant other at home: No Do you presently have visiting nurse or other home services: No Alcohol intake: never Patient Tobacco Use Status: Never used Tobacco Second Hand Smoke Exposure: No Advance Directives Date on File: 08/27/22 service: No Current occupational status: retired Review of Systems Const Denies chills and Denies fever(s) Card Reports no additional complaints and Denies syncope Resp Denies cough GI Denies abdominal pain and Denies heartburn Reports as per HPI and Denies change in libido Neuro Denies syncope Psych Denies change in libido Endo Denies change in libido Physical Exam Const General: cooperative, healthy appearing, comfortable and no acute distress Orientation/consciousness: patient oriented x3 HEENT Face and sinus: Yes normal facial exam Mouth: moist mucous membranes Neck Neck: Yes normal visual inspection, Yes full ROM and Yes trachea midline Chest Chest palpation & inspection: normal inspection of the chest Resp Effort & Inspection: normal respiratory effort, able to speak in complete sentences and no respiratory distress GI Inspection: Yes normal to inspection Back/Spine/Pelvis Cervical Spine: normal cervical lordosis Thoracic/Lumbar Spine: thoracic and lumbar spine normal to inspection Skin General skin exam: no rashes or lesions noted Neuro General: patient oriented x3, gait normal, tone normal and moves all extremities Extrem General: Yes normal to inspection and Yes capillary refill normal Office Procedures Bladder/Catheter Procedure Details: Sterile change of suprapubic tube. Eighteen [place] [id number]-Qliowz of bladder tube Procedure code (CPT) selection complete Assessment & Plan Assessment & Plan (1) Fungal infection: Code(s): B49 - Unspecified mycosis (2) Hypotonic neurogenic bladder: Code(s): N31.9 - Neuromuscular dysfunction of bladder, unspecified Plan 1 month follow-up nursing suprapubic tube change Medications: New fluconazole 1 tab with repeat dosing 3 days later 150 mg PO Q3D 2 tabs 0RF 2 doses B49 - Unspecified mycosis, N39.0 - Urinary tract infection, site not specified Patient Instructions: Imaging studies, laboratory and physical exam results were discussed and reviewed in detail. No major barriers to patient understanding were identified. An opportunity to ask questions regarding the treatment plan was provided. All questions were answered. The patient expressed understanding and agreement with the above treatment plan. The patient is aware they should contact our office by phone for worsening of their current condition or the appearance of new urologic symptoms. Compliance is encouraged with any medications and followup testing that is ordered. It is a privilege to participate in the urologic care of your patient. If you have any questions or concerns regarding treatment for the above conditions, or other urologic issues, please do not hesitate to contact me. The office telephone contact is [phone]. This note is constructed using voice recognition software. While every effort has been made to ensure accuracy trommel tender errors may have been included. Yours sincerely, Dr Keith Sharma MD, [facility] - Urology Providers of Expert, Compassionate Care for the Genitourinary System Coding Level of Care Code Est Pt Level 4 (86155) Diagnoses Fungal infection B49 Hypotonic neurogenic bladder N31.9 CPT Codes Bladder/Catheter Procedure - CPT: 96802-Ampgve of bladder tube ([id number])
== END 2023-07-24 11:03 | disposition home or self-care (01) ==
LOC: HO.HUSH 09:33
PROVIDERS: PCP Internal Medicine; Visit Provider Urology
DX: B49 Unspecified mycosis (principal); N31.9 Neuromuscular dysfunction of bladder, unspecified; Z96.0 Presence of urogenital implants
CPT/HCPCS: 51705; 99024

== ENCOUNTER → 2023-07-24 09:33 | Outpatient (BNVA) | payer MEDICARE, SELFPAY | PROVIDERS: PCP Internal Medicine; Visit Provider Urology | DX: Z43.5 Encounter for attention to cystostomy (principal); N31.9 Neuromuscular dysfunction of bladder, unspecified; B49 Unspecified mycosis | CPT/HCPCS: 51705; 99212 ==

== ENCOUNTER 2023-07-28 13:44 | Outpatient (AMB) | payer MEDICARE, SELFPAY ==
--- NOTE | 2023-07-28 14:00 | MHC.OFFVIS ---
Intake Vital Signs 07/28/23 14:03 BP 108/66 Blood Pressure Location Lt brachial Position Sitting Pulse 92 Pulse Source Pulse Oximeter Pulse Oximetry (%) 97 Oxygen Delivery Method Room Air Intake Visit Reasons: 5 mth fu Intake Note: Pt presents to the office today for a 5 month follow up. Patient is here with her daughter. Pt states she is feeling well and has no complaints. Pt denies any SOB or chest pain. Accompanied by: Daughter Allergies No Known Allergies [No Known Allergies*] Allergy (Verified 07/28/23 14:00) Medication List - Last Reconciled 07/28/23 by Linda Fraga NP-Christina acetaminophen 650 mg (2 x 325 mg) PO Q6H PRN 30 days amlodipine 10 mg (2 x 5 mg) PO DAILY 90 days aspirin 81 mg PO DAILY atorvastatin 10 mg PO BEDTIME docusate sodium 100 mg PO BID 30 days fluconazole 150 mg PO Q3D 2 doses furosemide 20 mg PO DAILY insulin glargine (Lantus U-100 Insulin) 37 units subcut BEDTIME insulin lispro (Humalog KwikPen (U-100) Insulin) subcut lancets (FreeStyle Lancets) As directed levothyroxine 25 mcg PO DAILY magnesium hydroxide (Milk of Magnesia) 400 mg PO DAILY PRN melatonin 10 mg PO BEDTIME PRN metoprolol succinate ER 200 mg PO DAILY multivitamin (One Daily Multivitamin tablet) 1 tab PO DAILY oxycodone 5 mg PO Q4H PRN 7 days pen needle, diabetic (BD Cathy 2nd Gen Pen Needle) As directed sulfamethoxazole-trimethoprim 800-160 mg (Bactrim DS) 1 tab PO DAILY PRN vitamins A,C,M-ihmt-indhls 2,148 mcg-113 mg-45 mg-17.4mg (PreserVision AREDS) 1 tab PO BID warfarin 2 mg PO DAILY@1800 warfarin (Jantoven) 1 mg See Protocol PO 2XW 90 days warfarin (Jantoven) 2 mg See Protocol PO 5XW 90 days HPI 5 mth fu HPI Details Belen is an 82-year-old female with past medical history of hypertension, hyperlipidemia, diabetes, chronic kidney disease, CAD, diastolic heart failure, chronic atrial fibrillation who presents for follow-up. Today she reports that since her last visit she did undergo her right total hip replacement. She says her recovery is going well. She is currently in a rehab facility and has been walking short distances with them. She is in a wheelchair at this visit. She says her to discomfort is improving. She does not know of any cardiac complications during her perioperative period. No chest discomfort at rest or with activity. She denies shortness of breath, palpitations, presyncope, syncope, PND, orthopnea or edema. Currently still mostly sedentary. Daughter is present. [facility] Medical History DOROTHY (acute kidney injury) Neuropathy Neurogenic bladder CVA (cerebral vascular accident) Shingles Elevated cholesterol Myocardial infarction MRSA infection Hip pain Leg wound, left Varicose vein of leg Osteoarthritis of right hip Current use of anticoagulant therapy Recurrent UTI Atrial fibrillation PAF (paroxysmal atrial fibrillation) Congestive heart failure Urinary incontinence Hypothyroidism Diabetes Hypertension CKD (chronic kidney disease) CAD (coronary artery disease) Hypotonic neurogenic bladder Surgical History History of left knee replacement History of right knee joint replacement H/O heart artery stent H/O nasal polypectomy History of tubal ligation History of tonsillectomy and adenoidectomy Hx of cholecystectomy Family History Father Hx of angina pectoris Myocardial infarction Mother Ovarian cancer Stomach cancer Maternal Grandfather Hardening of the arteries of the heart Social History Household Members: Children Household Members Other:: daughter Housing: House Are you a primary home health care case manager to a significant other at home: No Do you presently have visiting nurse or other home services: No Alcohol intake: never Patient Tobacco Use Status: Never used Tobacco Second Hand Smoke Exposure: No Advance Directives Date on File: 08/27/22 service: No Current occupational status: retired Review of Systems Const All systems reviewed & are unremarkable except as noted in HPI and below Musc Details: Hip discomfort, improved Reports abnormal gait, Reports back pain and Reports muscle weakness Neuro Reports abnormal gait Physical Exam Vital Signs: Last Vital Signs Pulse 105 H 07/28/23 14:03 BP 108/66 07/28/23 14:03 Pulse Ox 97 07/28/23 14:03 Oxygen Delivery Method Room Air 07/28/23 14:03 Const Other: Sitting in wheelchair General: cooperative, comfortable and no acute distress Orientation/consciousness: patient oriented x3 Neck Neck: Yes normal visual inspection Resp Effort & Inspection: normal respiratory effort Auscultation: clear to auscultation bilaterally, no crackles, no rales, no rhonchi and no wheezes Cardio Jugular venous distension: no JVD Rate: regular rate Rhythm: abnormal rhythm Heart sounds: S1 normal heart sound present, S2 normal heart sound present, Murmur heart sound present (Faint systolic) and no rubs Skin General skin exam: no rashes or lesions noted Neuro General: patient oriented x3 Extrem General: Yes normal to inspection Psych Appearance: grossly normal Mental Status: mental status grossly normal Speech and movement: Normal speech and movement present Assessment & Plan Assessment & Plan (1) Atrial fibrillation: Code(s): I48.91 - Unspecified atrial fibrillation Qualifiers: Atrial fibrillation type: longstanding persistent Qualified Code(s): I48.11 - Longstanding persistent atrial fibrillation Plan: History of atrial fibrillation since 2019, now chronic. Treated with rate control. Currently on metoprolol XL 200 mg daily. EKG done last visit shows atrial fibrillation, heart rate 94. Last echo 06/17/2022 showed EF 45-50%, basal inferior hypokinetic, mildly decreased RV systolic function, left atrium moderately dilated, hifi-ft-ofbfnuqs aortic stenosis, kvod-mz-qunstryj mitral regurgitation. She is on Coumadin for anticoagulation. INR goal 2-3. INR is being followed at her rehab facility. Today she reports feeling good with chest discomfort, shortness of breath or heart palpitations. She does not appear fluid overloaded on examination. Will plan for Holter monitor and echocardiogram prior to her next visit. She should be more ambulatory at that time. Cardiology follow-up in 6 months, sooner if needed. (2) Congestive heart failure: Code(s): I50.9 - Heart failure, unspecified Qualifiers: Heart failure type: diastolic Heart failure chronicity: chronic Qualified Code(s): I50.32 - Chronic diastolic (congestive) heart failure Plan: History of heart failure with preserved EF. Currently compensated. Continues on Lasix 20 mg daily. (3) CAD (coronary artery disease): Code(s): I25.10 - Atherosclerotic heart disease of [place] coronary artery without angina pectoris Qualifiers: Coronary Disease-Associated Artery/Lesion type: [place] artery [place] vs. transplanted heart: [place] heart Associated angina: without angina Qualified Code(s): I25.10 - Atherosclerotic heart disease of [place] coronary artery without angina pectoris Plan: History of CAD. Nuclear stress test 04/06/2023 showing moderate size excl-ju-uxalptwg intensity basal and mid inferior lateral and basal lateral and inferior wall ischemia, RCA distribution, EF 54%. Patient has no anginal symptoms. She is mostly sedentary and recently underwent hip replacement without any known cardiac complications. At present continue med management for stable CAD including aspirin indefinitely, atorvastatin with LDL goal less than 70, metoprolol, amlodipine. Signs and symptoms of angina reviewed. If she does report chest discomfort then cardiac catheterization may be indicated. (4) S/P total right hip arthroplasty: Code(s): Z96.641 - Presence of right artificial hip joint (5) Aortic stenosis: Code(s): I35.0 - Nonrheumatic aortic (valve) stenosis Qualifiers: Cardiac valve disease etiology: nonrheumatic Qualified Code(s): I35.0 - Nonrheumatic aortic (valve) stenosis Plan: Last echo 06/2022 showing rjsf-jx-rgdhiarl and rync-qm-auztjnvq MR. Will be updating echo prior to next visit. (6) Mitral regurgitation: Code(s): I34.0 - Nonrheumatic mitral (valve) insufficiency Orders: Orders ECG 3 day holter monitor 5 Months Z96.641 - Presence of right artificial hip joint CA echo transthoracic complete 5 Months I35.0 - Nonrheumatic aortic (valve) stenosis Coding Level of Care Code Est Pt Level 4 (56163) Diagnoses Longstanding persistent atrial fibrillation I48.11 Atrial fibrillation type: longstanding persistent Chronic diastolic congestive heart failure I50.32 Heart failure type: diastolic Heart failure chronicity: chronic Coronary artery disease involving [place] coronary artery of [place] heart without angina pectoris I25.10 Coronary Disease-Associated Artery/Lesion type: [place] artery [place] vs. transplanted heart: [place] heart Associated angina: without angina S/P total right hip arthroplasty Z96.641 Nonrheumatic aortic valve stenosis I35.0 Cardiac valve disease etiology: nonrheumatic Mitral regurgitation I34.0 Time Spent (min) 28
[2023-07-28 14:03] VITALS: BP 108/66; PULSE 92; O2SAT 97
== END 2023-07-28 14:39 | disposition home or self-care (01) ==
PROVIDERS: PCP Internal Medicine; Visit Provider Nurse Practitioner Family
DX: I48.11 Longstanding persistent atrial fibrillation (principal); I50.32 Chronic diastolic (congestive) heart failure; I25.10 Atherosclerotic heart disease of native coronary artery without angina pectoris; Z96.641 Presence of right artificial hip joint; I35.0 Nonrheumatic aortic (valve) stenosis; I34.0 Nonrheumatic mitral (valve) insufficiency
CPT/HCPCS: 99214

== ENCOUNTER → 2023-07-28 13:44 | Outpatient (BNVA) | payer MEDICARE, SELFPAY | PROVIDERS: PCP Internal Medicine; Visit Provider Nurse Practitioner Family | DX: I35.0 Nonrheumatic aortic (valve) stenosis (principal); I25.10 Atherosclerotic heart disease of native coronary artery without angina pectoris; I34.0 Nonrheumatic mitral (valve) insufficiency; I48.11 Longstanding persistent atrial fibrillation; I13.0 Hypertensive heart and chronic kidney disease with heart failure and stage 1 through stage 4 chronic kidney disease, or unspecified chronic kidney disease; I50.32 Chronic diastolic (congestive) heart failure; N18.9 Chronic kidney disease, unspecified; E11.22 Type 2 diabetes mellitus with diabetic chronic kidney disease; Z79.01 Long term (current) use of 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 | CPT/HCPCS: 99212 ==

== ENCOUNTER → 2023-08-07 11:40 | Outpatient (BNVA) | payer MEDICARE, SELFPAY | PROVIDERS: PCP Internal Medicine; Visit Provider Internal Medicine ==

== ENCOUNTER → 2023-08-12 11:57 | Outpatient (BNVA) | payer MEDICARE, SELFPAY | PROVIDERS: PCP Internal Medicine; Visit Provider Internal Medicine | DX: Z79.01 Long term (current) use of 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 (principal) ==

== ENCOUNTER → 2023-08-14 10:14 | Outpatient (BNVA) | payer MEDICARE, SELFPAY | PROVIDERS: PCP Internal Medicine; Visit Provider Internal Medicine ==

== ENCOUNTER 2023-08-18 11:55 | Emergency (ER) | payer MEDICARE, SELFPAY ==
--- NOTE | ~2023-08-18 | XR_ITS ---
EXAMINATION: XR FOOT, RIGHT CLINICAL INFORMATION: Right foot ulcer. Pain in the bilateral of the heel. COMPARISON: None available. TECHNIQUE: AP, lateral, and oblique views of the right foot. FINDINGS: There is diffuse osteopenia. No visible acute fracture or dislocation seen. No bony erosive changes or periosteal reaction to suspect any osteomyelitis. No soft tissue gas to suspect any gangrene. No cellulitis seen either. The small calcaneal heel and retrocalcaneal enthesophyte. XR/XR foot RT 2V IMPRESSION: 1. Diffuse osteopenia. No visible acute fracture or dislocation. No bony erosive changes or periosteal reaction to suspect any osteomyelitis. 2. Small calcaneal heel and retrocalcaneal enthesophytes.
[2023-08-18 12:25] VITALS: BP 111/51; PULSE 83; RESP 18; TEMP 36.4; O2SAT 98; BMI 33.3
--- NOTE | 2023-08-18 12:26 | ED_ITS ---
HPI - General Adult General Chief complaint: Wound/Laceration Stated complaint: Infected ulcer R foot Time Seen by Provider: 08/18/23 20:58 Source: patient and family Mode of arrival: EMS Limitations: no limitations History of Present Illness HPI narrative: 82 yo female with PMH of afib on coumadin, aortic stenosis, CKD, obesity, DM and neuropathy, MRSA infection, CAD recent rehab stay due to R fibula fracture now with pressure ulcer - has wound care appointment next Thursday. sent in due to chronic wound post rehab 2+ weeks no systemic symptoms. VNA and family unsure how to treat area. No drainage, odor, swelling, increased redness. MD complaint: heel ulcer Onset (ago): week(s) Location: right and lower extremity Radiation: non-radiation Severity: moderate Pain Consistency: intermittent Relieving factors: rest Exacerbating factors: movement Associated symptoms: denies other symptoms Treatments prior to arrival: none Related Data Home Medications Medication Instructions Recorded Confirmed levothyroxine 25 mcg tablet 25 mcg PO DAILY 09/05/20 08/14/23 aspirin 81 mg tablet,delayed 81 mg PO DAILY 09/11/21 08/14/23 release pen needle, diabetic 32 gauge x #50 ea 12/31/21 08/14/23 (BD Cathy 2nd Gen Pen Needle) multivitamin (One Daily 1 tab PO DAILY 09/15/22 08/14/23 Multivitamin tablet) lancets 28 gauge (FreeStyle #100 ea 09/29/22 08/14/23 Lancets) vitamins A,C,O-dbpe-pyhyrh 2,148 1 tab PO BID 05/09/23 08/14/23 mcg-113 mg-45 mg-17.4 mg tablet (PreserVision AREDS) insulin glargine 100 unit/mL 37 unit subcut BEDTIME 06/04/23 08/14/23 subcutaneous solution (Lantus U-100 Insulin) melatonin 5 mg tablet 10 mg PO BEDTIME PRN Sleep 06/04/23 08/14/23 insulin lispro 100 unit/mL subcut 06/23/23 08/14/23 subcutaneous pen (Humalog KwikPen (U-100) Insulin) magnesium hydroxide 400 mg/5 mL 400 mg PO DAILY PRN Constipation 06/30/23 08/14/23 oral suspension (Milk of Magnesia) warfarin 2 mg tablet 2 mg PO DAILY@1800 07/07/23 08/14/23 Previous Rx's Medication Instructions Recorded atorvastatin 10 mg tablet 10 mg PO BEDTIME #90 tabs 09/22/22 amlodipine 5 mg tablet 10 mg (2 x 5 mg) PO DAILY 90 days 06/04/23 #180 tabs metoprolol succinate 200 mg 200 mg PO DAILY #90 tabs 06/29/23 tablet,extended release 24 hr oxycodone 5 mg tablet 5 mg PO Q4H PRN Pain, 07/10/23 Moderate(Pain Scale 4-6) 7 days #42 tabs acetaminophen 325 mg tablet 650 mg (2 x 325 mg) PO Q6H PRN 07/11/23 Pain, Mild (Pain Scale 1-3) 30 days #240 tabs docusate sodium 100 mg capsule 100 mg PO BID 30 days #60 caps 07/11/23 furosemide 20 mg tablet 20 mg PO DAILY #90 tabs 07/17/23 warfarin 1 mg tablet (Jantoven) 1 mg PO 2XW 90 days #26 tabs 07/17/23 warfarin 2 mg tablet (Jantoven) 2 mg PO 5XW 90 days #65 tabs 07/17/23 cephalexin 500 mg capsule 500 mg PO QID 7 days #28 caps 08/18/23 silver sulfadiazine 1 % topical 1 appl topical BID #25 grams 08/18/23 cream (SSD) Allergies Allergy/AdvReac Type Severity Reaction Status Date / Time No Known Allergies Allergy Verified 08/14/23 10:15 [No Known Allergies*] Review of Systems 2 Review of Systems: Constitutional : No Fever, No Chills ENT/Mouth : No sore throat, No Rhinorrhea Eyes: No Eye Pain, No Swelling, No Redness Cardiovascular : No Chest Pain, No SOB Respiratory : No Cough, No Sputum Gastrointestinal : No Nausea, No Vomiting, No Diarrhea, No abdominal Pain Genitourinary : No Dysuria, No Hematuria Musculoskeletal : No joint pain, No Myalgias, No Joint Swelling Skin : No Skin Lesions, positive skin ulcer Neuro : No Weakness, No Numbness, No Headache Psych : No Anxiety, No Depression All other systems reviewed and are negative PMFSH Past Medical History Medical History DOROTHY (acute kidney injury) Neuropathy Neurogenic bladder CVA (cerebral vascular accident) Shingles Elevated cholesterol Myocardial infarction MRSA infection Hip pain Leg wound, left Varicose vein of leg Osteoarthritis of right hip Current use of anticoagulant therapy Recurrent UTI Atrial fibrillation PAF (paroxysmal atrial fibrillation) Congestive heart failure Urinary incontinence Hypothyroidism Diabetes Hypertension CKD (chronic kidney disease) CAD (coronary artery disease) Hypotonic neurogenic bladder Surgical History History of left knee replacement History of right knee joint replacement H/O heart artery stent H/O nasal polypectomy History of tubal ligation History of tonsillectomy and adenoidectomy Hx of cholecystectomy Family History Family History Father Hx of angina pectoris Myocardial infarction Mother Ovarian cancer Stomach cancer Maternal Grandfather Hardening of the arteries of the heart Social History Social History Household Members: Children Household Members Other:: daughter Housing: House Are you a primary career technical counselor to a significant other at home: No Do you presently have visiting nurse or other home services: No Alcohol intake: never Patient Tobacco Use Status: Never used Tobacco Second Hand Smoke Exposure: No Advance Directives: Yes Advance Directives on File: Yes Advance Directives Date on File: 08/27/22 service: No Current occupational status: retired Physical Exam ED Vital Signs: Vital Signs - 24 hr 08/18/23 12:25 08/18/23 21:49 Temperature 97.6 F 98.2 F Pulse Rate 83 85 Respiratory Rate 18 18 Blood Pressure 111/51 L 116/62 Pulse Oximetry 98 94 Oxygen Delivery Method Room Air BMI result Body Mass Index 33.3 Appearance: Alert. Oriented X3. No acute distress. Eyes: Pupils equal, round and reactive to light. ENT: Pharynx normal. Neck: Normal inspection. Neck supple. CVS: Normal heart rate and rhythm. Pulses normal. Respiratory: No respiratory distress. Breath sounds normal. Abdomen: Soft and nontender. Skin: Skin warm and dry. Normal skin color. Normal skin turgor. Extremities: No lower extremity edema. R heel stage 2 pressure ulcer no subq invasion, no surrounding erythema no edema no odor ttp noted, distal pulse intact, no drainage it is about 5cm circular Neuro: Oriented X 3. No motor deficit. No sensory deficit. Course Course Course Narrative: This is an RME: Additional HPI, ROS, PE not included below will be deferred to primary provider. 82-year-old female presenting for painful right foot ulcer present for several days. Medications Administered Discontinued Medications Generic Name Dose Route Start Last Admin Trade Name Freq PRN Reason Stop Dose Admin Cephalexin HCl 500 mg 08/18/23 21:17 08/18/23 21:52 Cephalexin 500 Mg Capsule PO 08/18/23 21:18 500 mg ONCE ONE Administration Medical Decision Making Medical Decision Making [facility] Narrative: 82 yo female with PMH of afib on coumadin, aortic stenosis, CKD, obesity, DM and neuropathy, MRSA infection, CAD recent rehab stay due to R fibula fracture now with pressure ulcer here with c/o R heel pressure ulcer at this time clinically no signs of infection no fluctuance no abscess it is not down to subq suspect stage II I see no subq tissue will provide topical care and cephalexin can follow up with wound care . Differential Diagnosis Differential Diagnoses: The differential diagnosis associated with the presentation includes pressure ulcer, need of wound care Admission/Observation Consideration of admission/observation: Escalation of care including admission/observation considered other than ESR which no baseline no indication for admission it is stage ii no signs of local or systemic infection - slivadene cephalexin dressings to go home with and has VNA Lab Data [facility] Lab Attestation statement: I reviewed the patient's lab results. 08/18/23 12:44 08/18/23 12:44 Labs: Lab Results 08/18/23 Range/Units 12:44 WBC 8.8 (4.8-10.8) X10*3/uL RBC 4.18 L D (4.20-5.50) X10*6/uL Hgb 11.4 L D (12.0-16.0) g/dl Hct 36.9 L D (37.0-47.0) % MCV 88.3 (80.0-98.0) fL MCH 27.3 (27.0-33.0) pg MCHC 30.9 L (31.0-35.0) g/dl RDW 16.9 H (11.0-16.0) % Plt Count 369 D (160-400) X10*3/uL MPV 8.6 L (9.4-12.3) fL Immature Gran % (Auto) 0.8 H (0.0-0.4) % Neut % (Auto) 73.8 H (45-73) % Lymph % (Auto) 13.0 L (20-40) % [place] % (Auto) 10.0 (2-11) % Eos % (Auto) 1.9 (0-4) % Baso % (Auto) 0.5 (0-2) % Lymph # (Auto) 1.1 L (1.2-4.9) X10*3/uL [place] # (Auto) 0.9 (0.1-1.2) X10*3/uL Eos # (Auto) 0.2 (0.0-0.4) X10*3/uL Baso # (Auto) 0.0 (0.0-0.2) X10*3/uL Abs Immat Gran (auto) 0.07 H (0.00-0.03) X10*3/uL Absolute Neuts (auto) 6.5 (2.0-8.3) x10*3/uL Absolute Nucleated RBC 0.000 (0.0-0.012) X10*3/uL Nucleated RBC % (auto) 0.0 (0.0-0.2) /100WBC ESR 81 H (0-20) MM/HR Sodium 138 (135-145) mmol/L Potassium 4.6 (3.3-5.1) mmol/L Chloride 107 (96-108) mmol/L Carbon Dioxide 20 L (22-29) mmol/L Anion Gap 16 (12-20) BUN 29 H (9-16) mg/dL Creatinine 1.47 H (0.5-1.4) mg/dL Estim Creat Clear Calc 32.8 Estimated GFR 34 Random Glucose 173 H (60-115) mg/dL Calcium 9.0 (8.4-10.2) mg/dL Total Bilirubin 0.4 (0.0-1.0) mg/dL AST 31 (5-31) U/L ALT 20 (0-31) U/L Alkaline Phosphatase 174 H (39-117) U/L C-Reactive Protein 1.68 H (< or = 0.50) mg/dL Total Protein 7.9 (6.5-8.0) g/dL Albumin 3.3 L (3.5-5.0) g/dL Independent Interpretation I performed an independent interpretation of an: Plain X-Ray (no osteo) Radiology Impression Discussion of test interpretation with radiology: I have reviewed the radiologist's reading. Independent Historian Clinical information obtained from an independent historian. History obtained from or confirmed by: Spouse External Record Review External record reviewed: Inpatient record Prescription Management I considered prescription management with: Antibiotic and Other Discharge Plan Discharge Clinical Impression: Stage II pressure ulcer Patient Disposition: Home, Self-Care Instructions: Wound Healing and Your Diet (ED), Chronic Wounds (ED) Additional Instructions: keep wound covered in soft dressing. you can use silvadene cream until you see wound care center. return for fevers, increased pain, drainage, foul odor or any other concerns. check your INR regularly remember antibiotics can affect it. On a cephalosporin?antibiotic, softer bowel movements are to be expected. Call your provider if you move your bowels more than 4 times a day, your bowel movements are almost all liquid, or you get a rash.?? Take a probiotic while you are on antibiotics and for at least one week after the antibiotics are finished - this can help protect your GI system from diarrhea and other issues. You can get probiotics by drinking kefir, eating yogurt or culturelle or another pill form of probiotic. Do not take it at the same time as you take the antibiotic.?More than 6 to 8 loose stools a day is not normal seek care if this happens Prescriptions: New silver sulfadiazine [SSD] 1 % cream 1 appl topical BID Qty: 25 0RF Rx Instructions: apply a 1.5 mm thickness cephalexin 500 mg capsule 500 mg PO QID 7 Days Qty: 28 0RF No Action atorvastatin 10 mg tablet 10 mg PO BEDTIME Qty: 90 3RF amlodipine 5 mg tablet 10 mg PO DAILY 90 Days Qty: 180 3RF melatonin 5 mg tablet 10 mg PO BEDTIME PRN (Reason: Sleep) insulin glargine [Lantus U-100 Insulin] 100 unit/mL solution 37 unit subcut BEDTIME Patient Comments: took half 07/06 at hs metoprolol succinate 200 mg tablet extended release 24 hr 200 mg PO DAILY Qty: 90 3RF furosemide 20 mg tablet 20 mg PO DAILY Qty: 90 2RF warfarin [Jantoven] 1 mg tablet 1 mg PO 2XW 90 Days Qty: 26 2RF Protocol: Dose Management Condition: Thursday (Week One) Dose/Route: 1 mg Instruction: 1 x 1 mg tablet Condition: Thursday Dose/Route: 1 mg Instruction: 1 x 1 mg tablet Condition: Thursday Dose/Route: 1 mg Instruction: 1 x 1 mg tablet Condition: Thursday Dose/Route: 1 mg Instruction: 1 x 1 mg tablet Condition: Dose/Route: 1 mg Instruction: 1 x 1 mg tablet Condition: Thursday Dose/Route: 1 mg Instruction: 1 x 1 mg tablet Condition: Thursday Dose/Route: 1 mg Instruction: 1 x 1 mg tablet Condition: Thursday () Dose/Route: 1 mg Instruction: 1 x 1 mg tablet Condition: Thursday Dose/Route: 1 mg Instruction: 1 x 1 mg tablet Condition: Thursday Dose/Route: 1 mg Instruction: 1 x 1 mg tablet Condition: Thursday Dose/Route: 1 mg Instruction: 1 x 1 mg tablet Condition: Dose/Route: 1 mg Instruction: 1 x 1 mg tablet Condition: Thursday Dose/Route: 1 mg Instruction: 1 x 1 mg tablet Condition: Thursday Dose/Route: 1 mg Instruction: 1 x 1 mg tablet Protocol Text: Adjustment Start Date: Thursday08/14/23 INR Value: 2.9 INR Date: 08/14/23 Recheck Date: 08/21/23 Additional Instructions: MAKES SURE TO EAT [place] WEEKLY THE ANTIBIOTICS YOU HAVE BEEN ON CAN HAVE DELAYED EFFECT RAISING THE INR warfarin [Jantoven] 2 mg tablet 2 mg PO 5XW 90 Days Qty: 65 2RF Protocol: Dose Management Condition: Thursday (Week One) Dose/Route: 1 mg Instruction: 1 x 1 mg tablet Condition: Thursday Dose/Route: 1 mg Instruction: 1 x 1 mg tablet Condition: Thursday Dose/Route: 1 mg Instruction: 1 x 1 mg tablet Condition: Thursday Dose/Route: 1 mg Instruction: 1 x 1 mg tablet Condition: Dose/Route: 1 mg Instruction: 1 x 1 mg tablet Condition: Thursday Dose/Route: 1 mg Instruction: 1 x 1 mg tablet Condition: Thursday Dose/Route: 1 mg Instruction: 1 x 1 mg tablet Condition: Thursday () Dose/Route: 1 mg Instruction: 1 x 1 mg tablet Condition: Thursday Dose/Route: 1 mg Instruction: 1 x 1 mg tablet Condition: Thursday Dose/Route: 1 mg Instruction: 1 x 1 mg tablet Condition: Thursday Dose/Route: 1 mg Instruction: 1 x 1 mg tablet Condition: Dose/Route: 1 mg Instruction: 1 x 1 mg tablet Condition: Thursday Dose/Route: 1 mg Instruction: 1 x 1 mg tablet Condition: Thursday Dose/Route: 1 mg Instruction: 1 x 1 mg tablet Protocol Text: Adjustment Start Date: Thursday08/14/23 INR Value: 2.9 INR Date: 08/14/23 Recheck Date: 08/21/23 Additional Instructions: MAKES SURE TO EAT [place] WEEKLY THE ANTIBIOTICS YOU HAVE BEEN ON CAN HAVE DELAYED EFFECT RAISING THE INR magnesium hydroxide [Milk of Magnesia] 400 mg/5 mL Suspension 400 mg PO DAILY PRN (Reason: Constipation) warfarin 2 mg tablet 2 mg PO DAILY@1800 Protocol: Dose Management Condition: Thursday (Week One) Dose/Route: 1 mg Instruction: 1 x 1 mg tablet Condition: Thursday Dose/Route: 1 mg Instruction: 1 x 1 mg tablet Condition: Thursday Dose/Route: 1 mg Instruction: 1 x 1 mg tablet Condition: Thursday Dose/Route: 1 mg Instruction: 1 x 1 mg tablet Condition: Dose/Route: 1 mg Instruction: 1 x 1 mg tablet Condition: Thursday Dose/Route: 1 mg Instruction: 1 x 1 mg tablet Condition: Thursday Dose/Route: 1 mg Instruction: 1 x 1 mg tablet Condition: Thursday (Week Two) Dose/Route: 1 mg Instruction: 1 x 1 mg tablet Condition: Thursday Dose/Route: 1 mg Instruction: 1 x 1 mg tablet Condition: Thursday Dose/Route: 1 mg Instruction: 1 x 1 mg tablet Condition: Thursday Dose/Route: 1 mg Instruction: 1 x 1 mg tablet Condition: Dose/Route: 1 mg Instruction: 1 x 1 mg tablet Condition: Thursday Dose/Route: 1 mg Instruction: 1 x 1 mg tablet Condition: Thursday Dose/Route: 1 mg Instruction: 1 x 1 mg tablet Protocol Text: Adjustment Start Date: Thursday08/14/23 INR Value: 2.9 INR Date: 08/14/23 Recheck Date: 08/21/23 Additional Instructions: MAKES SURE TO EAT [place] WEEKLY THE ANTIBIOTICS YOU HAVE BEEN ON CAN HAVE DELAYED EFFECT RAISING THE INR oxycodone 5 mg Tablet 5 mg PO Q4H PRN (Reason: Pain, Moderate(Pain Scale 4-6)) 7 Days Qty: 42 0RF Rx Instructions: Partial Fill upon patient request. acetaminophen 325 mg Tablet 650 mg PO Q6H PRN (Reason: Pain, Mild (Pain Scale 1-3)) 30 Days Qty: 240 0RF docusate sodium 100 mg Capsule 100 mg PO BID 30 Days Qty: 60 0RF PreserVision AREDS 2,148 mcg-113 mg-45 mg-17.4mg Tablet 1 tab PO BID Rx Instructions: administer with AM and PM meals levothyroxine 25 mcg tablet 25 mcg PO DAILY aspirin 81 mg tablet,delayed release (DR/EC) 81 mg PO DAILY (DME) pen needle, diabetic [BD Cathy 2nd Gen Pen Needle] 32 gauge x 5/32 needle See Rx Instructions subcut DAILY Qty: 50 Rx Instructions: As directed (DME) lancets [FreeStyle Lancets] 28 gauge misc See Rx Instructions .ROUTE BID Qty: 100 Rx Instructions: As directed multivitamin [One Daily Multivitamin] Tablet 1 tab PO DAILY insulin lispro [Humalog KwikPen Insulin] 100 unit/mL insulin pen subcut Patient Comments: if BG is above 200 Interventions: ED Discharge Assessment Last Done: 08/18/23 21:56 Discharge Date/Time: 08/18/23 21:56
[2023-08-18 12:49] LABS: MANUAL DIFF FLAG NO
[2023-08-18 12:50] LABS: Basophils Percent Auto 0.5 % (0-2); Eosinophils Absolute Auto 0.2 X10*3/uL (0.0-0.4); Eosinophils Percent Auto 1.9 % (0-4); Hematocrit 36.9 % (37.0-47.0); Hemoglobin 11.4 g/dl (12.0-16.0); Imm Gran Abs Auto 0.07 X10*3/uL (0.00-0.03); Imm Gran Pct Auto 0.8 % (0.0-0.4); Lymphocytes Absolute Auto 1.1 X10*3/uL (1.2-4.9); Mean Corpuscular HGB Conc 30.9 g/dl (31.0-35.0); Mean Corpuscular Hemoglobin 27.3 pg (27.0-33.0); Mean Corpuscular Volume 88.3 fL (80.0-98.0); Mean Platelet Volume 8.6 fL (9.4-12.3); Monocytes Absolute Auto 0.9 X10*3/uL (0.1-1.2); Neutrophils Absolute Auto 6.5 x10*3/uL (2.0-8.3); Neutrophils Percent Auto 73.8 % (45-73); Platelet Count 369 X10*3/uL (160-400); Red Blood Count 4.18 X10*6/uL (4.20-5.50); Red Cell Distribution Width 16.9 % (11.0-16.0); White Blood Count 8.8 X10*3/uL (4.8-10.8)
[2023-08-18 13:04] LABS: Alanine Aminotransferase 20 U/L (0-31); Albumin Level 3.3 g/dL (3.5-5.0); Alkaline Phosphatase 174 U/L (39-117); Anion Gap 16 (12-20); Aspartate Amino Transferase 31 U/L (5-31); Bilirubin Total 0.4 mg/dL (0.0-1.0); Blood Urea Nitrogen 29 mg/dL (9-16); C Reactive Protein 1.68 mg/dL (< or = 0.50); Carbon Dioxide 20 mmol/L (22-29); Chloride 107 mmol/L (96-108); Creatinine Clr Calc Pharmacy 32.8; Estimated Glomerular Filt Rate 34; Glucose Random 173 mg/dL (60-115); Potassium 4.6 mmol/L (3.3-5.1); Sodium 138 mmol/L (135-145); Total Protein 7.9 g/dL (6.5-8.0)
[2023-08-18 13:33] LABS: Erythrocyte Sedimentation Rate 81 MM/HR (0-20)
[2023-08-18 21:49] VITALS: BP 116/62; PULSE 85; RESP 18; TEMP 36.8; O2SAT 94
[2023-08-18] MEDS: cephALEXin 500 MG CAPSULE PO (21:52)
== END 2023-08-18 21:56 | disposition home or self-care (01) ==
PROVIDERS: Physician Assistant; Emergency Provider Emergency Medicine; PCP Internal Medicine
DX: L89.612 Pressure ulcer of right heel, stage 2 (principal); M79.671 Pain in right foot; E11.22 Type 2 diabetes mellitus with diabetic chronic kidney disease; I13.0 Hypertensive heart and chronic kidney disease with heart failure and stage 1 through stage 4 chronic kidney disease, or unspecified chronic kidney disease; N18.9 Chronic kidney disease, unspecified; I50.9 Heart failure, unspecified; E78.5 Hyperlipidemia, unspecified; I48.0 Paroxysmal atrial fibrillation; I25.2 Old myocardial infarction; Z86.73 Personal history of transient ischemic attack (TIA), and cerebral infarction without residual deficits; Z86.14 Personal history of Methicillin resistant Staphylococcus aureus infection; Z87.440 Personal history of urinary (tract) infections; Z79.82 Long term (current) use of aspirin; Z79.899 Other long term (current) drug therapy; Z79.4 Long term (current) use of insulin; Z79.01 Long term (current) use of 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
CPT/HCPCS: 36415; 73620; 80053; 85025; 85652; 86140; 99283

== ENCOUNTER → 2023-08-19 16:05 | Outpatient (BNVA) | payer MEDICARE, SELFPAY | PROVIDERS: PCP Internal Medicine; Visit Provider Internal Medicine ==

== ENCOUNTER → 2023-08-21 11:50 | Outpatient (BNVA) | payer MEDICARE, SELFPAY | PROVIDERS: PCP Internal Medicine; Visit Provider Internal Medicine ==

== ENCOUNTER → 2023-08-24 11:50 | Outpatient (BNVA) | payer MEDICARE, SELFPAY | PROVIDERS: PCP Internal Medicine; Visit Provider Internal Medicine ==

== ENCOUNTER 2023-08-25 13:37 | Outpatient (RCR) | payer MEDICARE, SELFPAY | END 2023-12-29 17:00 | disposition home or self-care (01) | LOC: HO.WCC 13:37 | PROVIDERS: PCP Internal Medicine; Visit Provider Physician Assistant | DX: Z09 Encounter for follow-up examination after completed treatment for conditions other than malignant neoplasm (principal); E11.51 Type 2 diabetes mellitus with diabetic peripheral angiopathy without gangrene; E11.40 Type 2 diabetes mellitus with diabetic neuropathy, unspecified; J96.01 Acute respiratory failure with hypoxia; R60.9 Edema, unspecified; E11.22 Type 2 diabetes mellitus with diabetic chronic kidney disease; I13.0 Hypertensive heart and chronic kidney disease with heart failure and stage 1 through stage 4 chronic kidney disease, or unspecified chronic kidney disease; N18.9 Chronic kidney disease, unspecified; I50.40 Unspecified combined systolic (congestive) and diastolic (congestive) heart failure; I25.2 Old myocardial infarction; Z86.31 Personal history of diabetic foot ulcer; Z96.641 Presence of right artificial hip joint; Z96.651 Presence of right artificial knee joint | CPT/HCPCS: 11042; 99212; 99214 ==

== ENCOUNTER 2023-08-25 14:45 | Inpatient (IN) | payer MEDICARE, SELFPAY ==
[2023-08-25] VITALS (9 sets, daily range): BP systolic 128–137; BP diastolic 48–88; PULSE 76–88; RESP 19–22; TEMP 36.3–36.6; O2SAT 87–98; BMI 35.8
--- NOTE | ~2023-08-25 | CT_ITS ---
EXAMINATION: CT ANGIOGRAM OF THE CHEST WITH AND WITHOUT CONTRAST (CT PULMONARY ANGIOGRAM FOR PE) CLINICAL INFORMATION: Reason for Exam HYPOXIA, SOB, low INR COMPARISON: 08/15/2022. TECHNIQUE: Prior to contrast administration, noncontrast localization images were obtained. Subsequently, multidetector volumetric imaging was performed from the thoracic inlet to below the diaphragms following the administration of 80 mL Omnipaque 350 intravenous contrast. No contrast reaction reported Sagittal, coronal, and MIP oblique sagittal reformatted images were obtained on the CT workstation, uploaded to PACS, and reviewed. This CT examination was performed using dose optimization techniques as appropriate, variously including the following: *Automated exposure control *Adjustment of mA and/or kV according to patient size (this includes techniques or standardized protocols for targeted exams where dose is matched to indication/reason for exam; i.e. extremities or head) *Use of iterative reconstruction technique Total exam dose-length product 329 mGy-cm FINDINGS: QUALITY OF STUDY/CONTRAST BOLUS: Satisfactory. PULMONARY ARTERIES: No pulmonary emboli. THORACIC AORTA: No aneurysm. LUNG: There is bibasilar atelectasis associated with moderate right and kzhjv-lo-jnmaqtxc left pleural effusions. PLEURA: No pleural effusion or pneumothorax. MEDIASTINUM: Normal heart size. No pericardial effusion. No hilar or mediastinal lymphadenopathy. No evidence of septal bowing or right heart strain. CORONARY ARTERY CALCIFICATION: None visualized on this study. CHEST WALL/AXILLA: No axillary or internal mammary lymphadenopathy. OSSEOUS STRUCTURES: No acute or suspicious osseous abnormality. UPPER ABDOMEN: Unremarkable. No reflux of contrast into the hepatic veins to suggest elevated right heart pressures. CT/CT angio chest PE protocol IMPRESSION: No evidence for pulmonary embolism. Bilateral xnnx-zk-bjxabfag pleural effusions with associated bibasilar consolidation most consistent with atelectasis. Infiltrates considered less likely. VTE: No evidence for pulmonary embolism.
--- NOTE | ~2023-08-25 | XR_ITS ---
EXAMINATION: XR CHEST CLINICAL INFORMATION: Dyspnea. COMPARISON: Chest x-ray 05/08/2023 TECHNIQUE: Frontal view of the chest was obtained. FINDINGS: The lungs are hypoexpanded with patchy opacity seen in both lung bases slightly greater in the right. The upper lungs are clear. The heart size is normal. No gross bony abnormality seen. XR/XR chest 1V IMPRESSION: Unremarkable examination.
--- NOTE | 2023-08-25 15:17 | ECG_ITS ---
Test Reason : SOB Blood Pressure : / mmHG Vent. Rate : 080 BPM Atrial Rate : 000 BPM P-R Int : 000 ms QRS Dur : 084 ms QT Int : 416 ms P-R-T Axes : 000 059 114 degrees QTc Int : 479 ms Atrial fibrillation with premature ventricular or aberrantly conducted complexes RSR' or QR pattern in V1 suggests right ventricular conduction delay Nonspecific ST abnormality Abnormal ECG When compared with ECG of 15-AUG-2022 18:46, Premature ventricular complexes are new Referred By: Dilip Garvin Electronically Signed By:ADINA GERARD MD
--- NOTE | 2023-08-25 15:22 | ED_ITS ---
HPI - SOB/Dyspnea General Chief Complaint: Dyspnea Stated Complaint: SOB COMING FROM WOUND CARE Time Seen by Provider: 08/25/23 15:04 Source: patient Limitations: no limitations History of Present Illness HPI Narrative: 81 years old with past medical history of atrial fibrillation on Coumadin, CHF with preserved ejection fraction, chronic kidney disease, insulin-dependent diabetes, hypertension, right hip osteoarthritis and right heel ulcer [facility]. Presents to the emergency room sent by the wound care clinic for shortness of breath. The patient reported that she has being having constant shortness of breath for the past 3 days. Patient reports his symptoms started approximately 4 days ago with a cold and nasal congestion and then progressively worsened. Patient reports that at night she feels that she cannot sleep and that she would requires more oxygen ?patient is unable to speak in full sentences, denies cough and denies chest pain. Patient reports that she has been compliant with her medications including Coumadin. She denies chills, fever, abdominal pain nausea or vomiting. On arrival patient was placed on 3 L nasal cannula with saturation of 97%. Patient was 82 % in room air at [facility] today. At home patient does not have any oxygen Patient denies headache, unilateral weakness, blurry vision or slurred speech. Related Data Home Medications Medication Instructions Recorded Confirmed levothyroxine 25 mcg tablet 25 mcg PO DAILY 09/05/20 08/24/23 aspirin 81 mg tablet,delayed 81 mg PO DAILY 09/11/21 08/24/23 release pen needle, diabetic 32 gauge x #50 ea 12/31/21 08/24/23 (BD Cathy 2nd Gen Pen Needle) multivitamin (One Daily 1 tab PO DAILY 09/15/22 08/24/23 Multivitamin tablet) lancets 28 gauge (FreeStyle #100 ea 09/29/22 08/24/23 Lancets) vitamins A,C,R-sdas-zfybks 2,148 1 tab PO BID 05/09/23 08/24/23 mcg-113 mg-45 mg-17.4 mg tablet (PreserVision AREDS) insulin glargine 100 unit/mL 37 unit subcut BEDTIME 06/04/23 08/24/23 subcutaneous solution (Lantus U-100 Insulin) melatonin 5 mg tablet 10 mg PO BEDTIME PRN Sleep 06/04/23 08/24/23 insulin lispro 100 unit/mL subcut 06/23/23 08/24/23 subcutaneous pen (Humalog KwikPen (U-100) Insulin) magnesium hydroxide 400 mg/5 mL 400 mg PO DAILY PRN Constipation 06/30/23 08/24/23 oral suspension (Milk of Magnesia) warfarin 2 mg tablet 2 mg PO DAILY@1800 07/07/23 08/24/23 Previous Rx's Medication Instructions Recorded atorvastatin 10 mg tablet 10 mg PO BEDTIME #90 tabs 09/22/22 amlodipine 5 mg tablet 10 mg (2 x 5 mg) PO DAILY 90 days 06/04/23 #180 tabs metoprolol succinate 200 mg 200 mg PO DAILY #90 tabs 06/29/23 tablet,extended release 24 hr oxycodone 5 mg tablet 5 mg PO Q4H PRN Pain, 07/10/23 Moderate(Pain Scale 4-6) 7 days #42 tabs acetaminophen 325 mg tablet 650 mg (2 x 325 mg) PO Q6H PRN 07/11/23 Pain, Mild (Pain Scale 1-3) 30 days #240 tabs docusate sodium 100 mg capsule 100 mg PO BID 30 days #60 caps 07/11/23 furosemide 20 mg tablet 20 mg PO DAILY #90 tabs 07/17/23 warfarin 1 mg tablet (Jantoven) 1 mg PO 2XW 90 days #26 tabs 07/17/23 warfarin 2 mg tablet (Jantoven) 2 mg PO 5XW 90 days #65 tabs 07/17/23 cephalexin 500 mg capsule 500 mg PO QID 7 days #28 caps 08/18/23 silver sulfadiazine 1 % topical 1 appl topical BID #25 grams 08/18/23 cream (SSD) Allergies Allergy/AdvReac Type Severity Reaction Status Date / Time No Known Allergies Allergy Verified 08/24/23 11:51 [No Known Allergies*] Review of Systems 2 Review of Systems: Yes all other systems are reviewed and are negative [facility] Past Medical History Medical History DOROTHY (acute kidney injury) Neuropathy Neurogenic bladder CVA (cerebral vascular accident) Shingles Elevated cholesterol Myocardial infarction MRSA infection Hip pain Leg wound, left Varicose vein of leg Osteoarthritis of right hip Current use of anticoagulant therapy Recurrent UTI Atrial fibrillation PAF (paroxysmal atrial fibrillation) Congestive heart failure Urinary incontinence Hypothyroidism Diabetes Hypertension CKD (chronic kidney disease) CAD (coronary artery disease) Hypotonic neurogenic bladder Surgical History History of left knee replacement History of right knee joint replacement H/O heart artery stent H/O nasal polypectomy History of tubal ligation History of tonsillectomy and adenoidectomy Hx of cholecystectomy Family History Family History Father Hx of angina pectoris Myocardial infarction Mother Ovarian cancer Stomach cancer Maternal Grandfather Hardening of the arteries of the heart Social History Social History Household Members: Children Household Members Other:: daughter Housing: House Are you a primary customer care associate to a significant other at home: No Do you presently have visiting nurse or other home services: No Alcohol intake: never Patient Tobacco Use Status: Never used Tobacco Second Hand Smoke Exposure: No Advance Directives: Yes Advance Directives on File: Yes Advance Directives Date on File: 08/27/22 service: No Current occupational status: retired Physical Exam 2 Vital Signs: Vital Signs: Last Vital Signs Temp 97.3 F 08/25/23 17:27 Pulse 78 08/25/23 17:27 Resp 19 08/25/23 17:27 BP 128/73 08/25/23 17:27 Pulse Ox 93 08/25/23 17:27 O2 Del Method Nasal Cannula 08/25/23 17:27 O2 Flow Rate 4 08/25/23 17:27 Oxygen Flow Rate 3 08/25/23 15:59 BMI result Body Mass Index 35.8 Const: General: alert, ill appearing and tired appearing O rientation/consciousness: patient oriented x3 HEENT: Head: Yes normocephalic Neck: Neck: Yes normal visual inspection and Yes full ROM Chest: Chest palpation & inspection: normal inspection of the chest Resp: Other: Crackles bilaterally Auscultation: crackles and rales Cardio: Rhythm: abnormal rhythm irregularly irregular Heart sounds: S1 normal heart sound present and S2 normal heart sound present GI: Inspection: Yes normal to inspection Palpation (GI): Soft to palpation Percussion: Yes normal to percussion Skin: Other: Right heel ulcer. Without purulent discharge. Neuro: General: patient oriented x3 Cranial nerves: Yes CN's II-XII intact bilaterally Motor exam (neuro): 5/5 motor strength present throughout S ensory Exam: Normal double simultaneous stimulation for sensation Course Reevaluation(s) Reevaluation #1: showed Patient's lab work showed creatinine of 1.37 stable from baseline. Normal lytes, normal high sensitive troponin. INR is 1.5, subtherapeutic. Bedside ultrasound showed bilateral pleural effusion which is more consistent with CHF exacerbation for which patient was given 40 mg of IV Lasix. Despite subtherapeutic INR bilateral pleural effusion can not explain patient's symptoms and indenting she has a pe, right ventricle was not enlarged. VBG showed a pH of 7.39 with pCO2 of 39 CBC showed normal WBC, hemoglobin of 11.3 Patient is still requiring 4 L nasal cannula oxygen to maintain SpO2 above 92%. At this time and thing she is a candidate for outpatient treatment and will require admission. Time: 17:51 Medications Administered Discontinued Medications Generic Name Dose Route Start Last Admin Trade Name Freq PRN Reason Stop Dose Admin Furosemide 40 mg 08/25/23 16:25 08/25/23 16:38 Furosemide 40 Mg/4 Ml Vial IVPUSH 08/25/23 16:26 40 mg ONCE ONE Administration Protocol Medical Decision Making Medical Decision Making MDM Narrative: 82 years old presenting to the emergency room with new onset shortness of breath ongoing for the past 3 days. The patient was saturating 82% in room air at wound clinic where she went today for a chronic right heel ulcer. The patient denies chills or cough. She does not have any O2 requirement at home. Possible differential diagnosis includes CHF exacerbation, pneumonia, viral pneumonia, PE. Plan Chest x-ray EKG CBC, BMP, troponin O2 through nasal cannula PT INR. Bedside ultrasound Lab Data 08/25/23 16:58 08/25/23 16:58 Labs: Lab Results 08/25/23 08/25/23 08/25/23 Range/Units 15:47 15:50 16:58 WBC 8.7 (4.8-10.8) X10*3/uL RBC 4.15 L (4.20-5.50) X10*6/uL Hgb 11.3 L (12.0-16.0) g/dl Hct 36.4 L (37.0-47.0) % MCV 87.7 (80.0-98.0) fL MCH 27.2 (27.0-33.0) pg MCHC 31.0 (31.0-35.0) g/dl RDW 17.8 H (11.0-16.0) % Plt Count 316 (160-400) X10*3/uL MPV 8.6 L (9.4-12.3) fL Immature Gran % (Auto) 0.7 H (0.0-0.4) % Neut % (Auto) 73.7 H (45-73) % Lymph % (Auto) 14.3 L (20-40) % [place] % (Auto) 9.2 (2-11) % Eos % (Auto) 1.4 (0-4) % Baso % (Auto) 0.7 (0-2) % Lymph # (Auto) 1.2 (1.2-4.9) X10*3/uL [place] # (Auto) 0.8 (0.1-1.2) X10*3/uL Eos # (Auto) 0.1 (0.0-0.4) X10*3/uL Baso # (Auto) 0.1 (0.0-0.2) X10*3/uL Abs Immat Gran (auto) 0.06 H (0.00-0.03) X10*3/uL Absolute Neuts (auto) 6.4 (2.0-8.3) x10*3/uL Absolute Nucleated RBC 0.000 (0.0-0.012) X10*3/uL Nucleated RBC % (auto) 0.0 (0.0-0.2) /100WBC PT 18.6 H D (11.1-13.3) SEC INR 1.5 H (0.9-1.1) VBG pH (7.32-7.43) VBG pCO2 mmHg VBG pO2 mmHg VBG HCO3 (22-26) mmol/L VBG O2 Saturation % VBG Base Excess mmol/L Sodium 140 (135-145) mmol/L Potassium 4.9 (3.3-5.1) mmol/L Chloride 107 (96-108) mmol/L Carbon Dioxide 20 L (22-29) mmol/L Anion Gap 18 (12-20) BUN 31 H (9-16) mg/dL Creatinine 1.37 (0.5-1.4) mg/dL Estim Creat Clear Calc 36.6 Estimated GFR 37 POC Glucose 135 H (60-115) mg/dL Random Glucose 128 H (60-115) mg/dL Calcium 9.5 (8.4-10.2) mg/dL Troponin I High Sens 5.9 (<3.5-17.0) ng/L Influenza Type A (PCR) NEGATIVE (Negative) Influenza Type B (PCR) NEGATIVE (Negative) RSV RNA Qual (PCR) NEGATIVE (Negative) SARS-CoV-2 RNA (RT-PCR) NEGATIVE (Negative) 08/25/23 Range/Units 17:04 WBC (4.8-10.8) X10*3/uL RBC (4.20-5.50) X10*6/uL Hgb (12.0-16.0) g/dl Hct (37.0-47.0) % MCV (80.0-98.0) fL MCH (27.0-33.0) pg MCHC (31.0-35.0) g/dl RDW (11.0-16.0) % Plt Count (160-400) X10*3/uL MPV (9.4-12.3) fL Immature Gran % (Auto) (0.0-0.4) % Neut % (Auto) (45-73) % Lymph % (Auto) (20-40) % [place] % (Auto) (2-11) % Eos % (Auto) (0-4) % Baso % (Auto) (0-2) % Lymph # (Auto) (1.2-4.9) X10*3/uL [place] # (Auto) (0.1-1.2) X10*3/uL Eos # (Auto) (0.0-0.4) X10*3/uL Baso # (Auto) (0.0-0.2) X10*3/uL Abs Immat Gran (auto) (0.00-0.03) X10*3/uL Absolute Neuts (auto) (2.0-8.3) x10*3/uL Absolute Nucleated RBC (0.0-0.012) X10*3/uL Nucleated RBC % (auto) (0.0-0.2) /100WBC PT (11.1-13.3) SEC INR (0.9-1.1) VBG pH 7.39 (7.32-7.43) VBG pCO2 39 mmHg VBG pO2 43 mmHg VBG HCO3 24 (22-26) mmol/L VBG O2 Saturation 68.0 % VBG Base Excess -0.5 mmol/L Sodium (135-145) mmol/L Potassium (3.3-5.1) mmol/L Chloride (96-108) mmol/L Carbon Dioxide (22-29) mmol/L Anion Gap (12-20) BUN (9-16) mg/dL Creatinine (0.5-1.4) mg/dL Estim Creat Clear Calc Estimated GFR POC Glucose (60-115) mg/dL Random Glucose (60-115) mg/dL Calcium (8.4-10.2) mg/dL Troponin I High Sens (<3.5-17.0) ng/L Influenza Type A (PCR) (Negative) Influenza Type B (PCR) (Negative) RSV RNA Qual (PCR) (Negative) SARS-CoV-2 RNA (RT-PCR) (Negative) Independent Interpretation I performed an independent interpretation of an: EKG (I personally reviewed the EKG that shows atrial fibrillation with multiple PVCs.) and Ultrasound (Bedside ultrasound revealed B lines bilaterally, some pleura irregularity on the right side and bilateral pleural effusion. LV dysfunction with estimated EF 35-40%. ) Discharge Plan Discharge Clinical Impression: Acute exacerbation of CHF (congestive heart failure) Patient Disposition: Admitted As Inpatient Prescriptions: No Action atorvastatin 10 mg tablet 10 mg PO BEDTIME Qty: 90 3RF amlodipine 5 mg tablet 10 mg PO DAILY 90 Days Qty: 180 3RF melatonin 5 mg tablet 10 mg PO BEDTIME PRN (Reason: Sleep) insulin glargine [Lantus U-100 Insulin] 100 unit/mL solution 37 unit subcut BEDTIME Patient Comments: took half / at hs metoprolol succinate 200 mg tablet extended release 24 hr 200 mg PO DAILY Qty: 90 3RF furosemide 20 mg tablet 20 mg PO DAILY Qty: 90 2RF warfarin [Jantoven] 1 mg tablet 1 mg PO 2XW 90 Days Qty: 26 2RF Protocol: Dose Management Condition: Thursday ( One) Dose/Route: 0.5 mg Instruction: 0.5 x 1 mg tablets Condition: Thursday Dose/Route: 1 mg Instruction: 1 x 1 mg tablet Condition: Thursday Dose/Route: 1 mg Instruction: 1 x 1 mg tablet Condition: Thursday Dose/Route: 1 mg Instruction: 1 x 1 mg tablet Condition: Dose/Route: 1 mg Instruction: 1 x 1 mg tablet Condition: Thursday Dose/Route: 1 mg Instruction: 1 x 1 mg tablet Condition: Thursday Dose/Route: 1 mg Instruction: 1 x 1 mg tablet Condition: Thursday () Dose/Route: 0.5 mg Instruction: 0.5 x 1 mg tablets Condition: Thursday Dose/Route: 1 mg Instruction: 1 x 1 mg tablet Condition: Thursday Dose/Route: 1 mg Instruction: 1 x 1 mg tablet Condition: Thursday Dose/Route: 1 mg Instruction: 1 x 1 mg tablet Condition: Dose/Route: 1 mg Instruction: 1 x 1 mg tablet Condition: Thursday Dose/Route: 1 mg Instruction: 1 x 1 mg tablet Condition: Thursday Dose/Route: 1 mg Instruction: 1 x 1 mg tablet Protocol Text: Adjustment Start Date: Thursday08/24/23 INR Value: 1.9 INR Date: 08/24/23 Recheck Date: 08/31/23 Additional Instructions: AVOID GREENS TODAY ANT TOMORROW THEN RESUME THU - THE ANTBIOITC YOU ARE ON CAN RAISE YOUR INR, ONLY TAKE .5 MG THURSDAY warfarin [] 2 mg tablet 2 mg PO 5XW 90 Days Qty: 65 2RF Protocol: Dose Management Condition: Thursday (Week One) Dose/Route: 0.5 mg Instruction: 0.5 x 1 mg tablets Condition: Thursday Dose/Route: 1 mg Instruction: 1 x 1 mg tablet Condition: Thursday Dose/Route: 1 mg Instruction: 1 x 1 mg tablet Condition: Thursday Dose/Route: 1 mg Instruction: 1 x 1 mg tablet Condition: Dose/Route: 1 mg Instruction: 1 x 1 mg tablet Condition: Thursday Dose/Route: 1 mg Instruction: 1 x 1 mg tablet Condition: Thursday Dose/Route: 1 mg Instruction: 1 x 1 mg tablet Condition: Thursday (Week Two) Dose/Route: 0.5 mg Instruction: 0.5 x 1 mg tablets Condition: Thursday Dose/Route: 1 mg Instruction: 1 x 1 mg tablet Condition: Thursday Dose/Route: 1 mg Instruction: 1 x 1 mg tablet Condition: Thursday Dose/Route: 1 mg Instruction: 1 x 1 mg tablet Condition: Dose/Route: 1 mg Instruction: 1 x 1 mg tablet Condition: Thursday Dose/Route: 1 mg Instruction: 1 x 1 mg tablet Condition: Thursday Dose/Route: 1 mg Instruction: 1 x 1 mg tablet Protocol Text: Adjustment Start Date: Thursday08/24/23 INR Value: 1.9 INR Date: 08/24/23 Recheck Date: 08/31/23 Additional Instructions: AVOID GREENS TODAY ANT TOMORROW THEN RESUME THU - THE ANTBIOITC YOU ARE ON CAN RAISE YOUR INR, ONLY TAKE .5 MG THURSDAY magnesium hydroxide [Milk of Magnesia] 400 mg/5 mL Suspension 400 mg PO DAILY PRN (Reason: Constipation) warfarin 2 mg tablet 2 mg PO DAILY@1800 Protocol: Dose Management Condition: Thursday (Week One) Dose/Route: 0.5 mg Instruction: 0.5 x 1 mg tablets Condition: Thursday Dose/Route: 1 mg Instruction: 1 x 1 mg tablet Condition: Thursday Dose/Route: 1 mg Instruction: 1 x 1 mg tablet Condition: Thursday Dose/Route: 1 mg Instruction: 1 x 1 mg tablet Condition: Dose/Route: 1 mg Instruction: 1 x 1 mg tablet Condition: Thursday Dose/Route: 1 mg Instruction: 1 x 1 mg tablet Condition: Thursday Dose/Route: 1 mg Instruction: 1 x 1 mg tablet Condition: Thursday (Week Two) Dose/Route: 0.5 mg Instruction: 0.5 x 1 mg tablets Condition: Thursday Dose/Route: 1 mg Instruction: 1 x 1 mg tablet Condition: Thursday Dose/Route: 1 mg Instruction: 1 x 1 mg tablet Condition: Thursday Dose/Route: 1 mg Instruction: 1 x 1 mg tablet Condition: Dose/Route: 1 mg Instruction: 1 x 1 mg tablet Condition: Thursday Dose/Route: 1 mg Instruction: 1 x 1 mg tablet Condition: Thursday Dose/Route: 1 mg Instruction: 1 x 1 mg tablet Protocol Text: Adjustment Start Date: Thursday08/24/23 INR Value: 1.9 INR Date: 08/24/23 Recheck Date: 08/31/23 Additional Instructions: AVOID GREENS TODAY ANT TOMORROW THEN RESUME THU - THE ANTBIOITC YOU ARE ON CAN RAISE YOUR INR, ONLY TAKE .5 MG THURSDAY oxycodone 5 mg Tablet 5 mg PO Q4H PRN (Reason: Pain, Moderate(Pain Scale 4-6)) 7 Days Qty: 42 0RF Rx Instructions: Partial Fill upon patient request. acetaminophen 325 mg Tablet 650 mg PO Q6H PRN (Reason: Pain, Mild (Pain Scale 1-3)) 30 Days Qty: 240 0RF docusate sodium 100 mg Capsule 100 mg PO BID 30 Days Qty: 60 0RF PreserVision AREDS 2,148 mcg-113 mg-45 mg-17.4mg Tablet 1 tab PO BID Rx Instructions: administer with AM and PM meals silver sulfadiazine [SSD] 1 % cream 1 appl topical BID Qty: 25 0RF Rx Instructions: apply a 1.5 mm thickness cephalexin 500 mg capsule 500 mg PO QID 7 Days Qty: 28 0RF levothyroxine 25 mcg tablet 25 mcg PO DAILY aspirin 81 mg tablet,delayed release (DR/EC) 81 mg PO DAILY (DME) pen needle, diabetic [BD Cathy 2nd Gen Pen Needle] 32 gauge x 5/32 needle See Rx Instructions subcut DAILY Qty: 50 Rx Instructions: As directed (DME) lancets [FreeStyle Lancets] 28 gauge misc See Rx Instructions .ROUTE BID Qty: 100 Rx Instructions: As directed multivitamin [One Daily Multivitamin] Tablet 1 tab PO DAILY insulin lispro [Humalog KwikPen Insulin] 100 unit/mL insulin pen subcut Patient Comments: if BG is above 200
[2023-08-25 15:51] LABS: Glucose, Whole Blood 135 mg/dL (60-115)
[2023-08-25 16:36] LABS: Influenza A PCR NEGATIVE (Negative); Influenza B PCR NEGATIVE (Negative); Resp Syncy Virus RNA Qual PCR NEGATIVE (Negative); SARS COV2 PCR INHOUSE NEGATIVE (Negative)
[2023-08-25] MEDS: Furosemide 40 MG/4 ML VIAL IVPUSH (16:38)
[2023-08-25 17:06] LABS: MANUAL DIFF FLAG NO
[2023-08-25 17:09] LABS: VBG Base Excess -0.5 mmol/L; VBG HCO3 24 mmol/L (22-26); VBG pCO2 39 mmHg; VBG pH 7.39 (7.32-7.43); VBG pO2 43 mmHg
[2023-08-25 17:11] LABS: Venous Blood Gas Refer to POC result
[2023-08-25 17:17] LABS: INTERNATIONAL NORM RATIO 1.5 (0.9-1.1); Prothrombin Time 18.6 SEC (11.1-13.3)
[2023-08-25 17:18] LABS: Basophils Absolute Auto 0.1 X10*3/uL (0.0-0.2); Basophils Percent Auto 0.7 % (0-2); Eosinophils Absolute Auto 0.1 X10*3/uL (0.0-0.4); Eosinophils Percent Auto 1.4 % (0-4); Hematocrit 36.4 % (37.0-47.0); Hemoglobin 11.3 g/dl (12.0-16.0); Imm Gran Abs Auto 0.06 X10*3/uL (0.00-0.03); Imm Gran Pct Auto 0.7 % (0.0-0.4); Lymphocytes Absolute Auto 1.2 X10*3/uL (1.2-4.9); Lymphocytes Percent Auto 14.3 % (20-40); Mean Corpuscular Hemoglobin 27.2 pg (27.0-33.0); Mean Corpuscular Volume 87.7 fL (80.0-98.0); Mean Platelet Volume 8.6 fL (9.4-12.3); Monocytes Absolute Auto 0.8 X10*3/uL (0.1-1.2); Monocytes Percent Auto 9.2 % (2-11); Neutrophils Absolute Auto 6.4 x10*3/uL (2.0-8.3); Neutrophils Percent Auto 73.7 % (45-73); Platelet Count 316 X10*3/uL (160-400); Red Blood Count 4.15 X10*6/uL (4.20-5.50); Red Cell Distribution Width 17.8 % (11.0-16.0); White Blood Count 8.7 X10*3/uL (4.8-10.8)
[2023-08-25 17:38] LABS: Anion Gap 18 (12-20); Blood Urea Nitrogen 31 mg/dL (9-16); Calcium 9.5 mg/dL (8.4-10.2); Carbon Dioxide 20 mmol/L (22-29); Chloride 107 mmol/L (96-108); Creatinine Clr Calc Pharmacy 36.6; Estimated Glomerular Filt Rate 37; Glucose Random 128 mg/dL (60-115); Potassium 4.9 mmol/L (3.3-5.1); Sodium 140 mmol/L (135-145)
[2023-08-25 17:46] LABS: Troponin-I High Sensitivity 5.9 ng/L (<3.5-17.0)
[2023-08-25 17:56] LABS: B Type Natriuretic Peptide 806 pg/mL (<100)
[2023-08-25] MEDS: iohexoL 350 MG/ML 100 ML INFUS..BTL IV (18:39)
[2023-08-25 18:46] LABS: Glucose, Whole Blood 133 mg/dL (60-115)
--- NOTE | 2023-08-25 19:35 | P.HPHOSP_ITS ---
History of Present Illness Date of Service: 08/25/23 Chief Complaint: Dyspnea This is a 82-year-old female with pertinent history of congestive heart failure with preserved ejection fraction, permanent atrial fibrillation on Coumadin, CKD stage 3, hypothyroidism, insulin-dependent diabetes mellitus, essential hypertension, neurogenic bladder who presents to the emergency department for evaluation of dyspnea. Patient states her symptoms started 3 days prior to presentation. She has been having ongoing dyspnea which has been progressive and worse with ambulation. Does not use oxygen at home. Also complains of associated orthopnea and PND. States she takes her home Lasix and is compliant with it. No fever, chills, palpitations. No chest discomfort, abdominal pain, changes in urinary or bowel habits. In the emergency department, patient requiring supplemental oxygen and was initiated on IV diuresis Review of Systems 2 Constitutional: Constitutional: Reports fatigue Cardiovascular: Cardiovascular: Reports dyspnea on exertion, Reports orthopnea and Reports paroxysmal nocturnal dyspnea Respiratory: Respiratory: Reports dyspnea on exertion Gastrointestinal: Gastrointestinal: Reports no additional gastrointestinal complaints Genitourinary: Genitourinary: Reports no additional female genitourinary complaints Musculoskeletal: Musculoskeletal: Reports no additional musculoskeletal complaints Endocrine: Endocrine: Reports fatigue [facility] Medical History DOROTHY (acute kidney injury) Neuropathy Neurogenic bladder CVA (cerebral vascular accident) Shingles Elevated cholesterol Myocardial infarction MRSA infection Hip pain Leg wound, left Varicose vein of leg Osteoarthritis of right hip Current use of anticoagulant therapy Recurrent UTI Atrial fibrillation PAF (paroxysmal atrial fibrillation) Congestive heart failure Urinary incontinence Hypothyroidism Diabetes Hypertension CKD (chronic kidney disease) CAD (coronary artery disease) Hypotonic neurogenic bladder Family History Father Hx of angina pectoris Myocardial infarction Mother Ovarian cancer Stomach cancer Maternal Grandfather Hardening of the arteries of the heart Surgical History History of left knee replacement History of right knee joint replacement H/O heart artery stent H/O nasal polypectomy History of tubal ligation History of tonsillectomy and adenoidectomy Hx of cholecystectomy Social History Household Members: Children Household Members Other:: daughter Housing: House Are you a primary day care home provider to a significant other at home: No Do you presently have visiting nurse or other home services: No Alcohol intake: never Patient Tobacco Use Status: Never used Tobacco Smoked in Last 30 Days: No Second Hand Smoke Exposure: No Use of substances other than those prescribed or required for medical reasons: No Advance Directives: Yes Advance Directives on File: Yes Advance Directives Date on File: 08/27/22 service: No Current occupational status: retired Meds Allergies Allergy/AdvReac Type Severity Reaction Status Date / Time No Known Allergies Allergy Verified 08/24/23 11:51 [No Known Allergies*] Home Medications Medication Instructions Recorded Confirmed Last Taken Type levothyroxine 25 mcg tablet 25 mcg PO DAILY 09/05/20 08/24/23 07/07/23 06:00 History aspirin 81 mg tablet,delayed 81 mg PO DAILY 09/11/21 08/24/23 07/02/23 History release pen needle, diabetic 32 gauge x #50 ea 12/31/21 08/24/23 Unknown History (BD Cathy 2nd Gen Pen Needle) multivitamin (One Daily 1 tab PO DAILY 09/15/22 08/24/23 07/06/23 History Multivitamin tablet) lancets 28 gauge (FreeStyle #100 ea 09/29/22 08/24/23 Unknown History Lancets) vitamins A,C,V-ylpn-qbuflg 2,148 1 tab PO BID 05/09/23 08/24/23 07/06/23 History mcg-113 mg-45 mg-17.4 mg tablet (PreserVision AREDS) insulin glargine 100 unit/mL 37 unit subcut BEDTIME 06/04/23 08/24/23 Unknown History subcutaneous solution (Lantus U-100 Insulin) melatonin 5 mg tablet 10 mg PO BEDTIME PRN Sleep 06/04/23 08/24/23 Unknown History insulin lispro 100 unit/mL subcut 06/23/23 08/24/23 Unknown History subcutaneous pen (Humalog KwikPen (U-100) Insulin) magnesium hydroxide 400 mg/5 mL 400 mg PO DAILY PRN Constipation 06/30/23 08/24/23 Unknown History oral suspension (Milk of Magnesia) warfarin 2 mg tablet 2 mg PO DAILY@1800 07/07/23 08/24/23 Unknown History Physical Exam 2 Vital Signs and Narrative: Vital Signs: Last Vital Signs Temp 98 F 08/25/23 19:18 Pulse 88 08/25/23 19:18 Resp 22 H 08/25/23 19:18 BP 135/48 L 08/25/23 19:18 Pulse Ox 92 08/25/23 19:18 O2 Del Method Nasal Cannula 08/25/23 19:18 O2 Flow Rate 3 08/25/23 19:18 Oxygen Flow Rate 3 08/25/23 15:59 BMI result Body Mass Index 35.8 Elderly female lying in bed in mild distress on supplemental oxygen Neck supple, positive JVD Irregularly irregular, S1-S2 heard Bilateral crackles without wheezing Abdomen soft nontender, no guarding, no rigidity Patient is awake, alert and oriented to self, place, time and person ; no focal motor deficit Psych: Normal mood Bilateral pedal edema Results Labs 08/25/23 16:58 08/25/23 16:58 Labs: Laboratory Results - last 24 hr 08/25/23 08/25/23 08/25/23 15:47 15:50 16:58 MCV 87.7 MCH 27.2 MCHC 31.0 RDW 17.8 H Plt Count 316 MPV 8.6 L Immature Gran % (Auto) 0.7 H Neut % (Auto) 73.7 H Lymph % (Auto) 14.3 L [place] % (Auto) 9.2 Eos % (Auto) 1.4 Baso % (Auto) 0.7 Lymph # (Auto) 1.2 [place] # (Auto) 0.8 Eos # (Auto) 0.1 Baso # (Auto) 0.1 Abs Immat Gran (auto) 0.06 H Absolute Neuts (auto) 6.4 Absolute Nucleated RBC 0.000 Nucleated RBC % (auto) 0.0 PT 18.6 H D INR 1.5 H VBG pH VBG pCO2 VBG pO2 VBG HCO3 VBG O2 Saturation VBG Base Excess Anion Gap 18 Estim Creat Clear Calc 36.6 Estimated GFR 37 POC Glucose 135 H Random Glucose 128 H Calcium 9.5 B-Natriuretic Peptide 806 H Influenza Type A (PCR) NEGATIVE Influenza Type B (PCR) NEGATIVE RSV RNA Qual (PCR) NEGATIVE SARS-CoV-2 RNA (RT-PCR) NEGATIVE 08/25/23 08/25/23 17:04 18:42 MCV MCH MCHC RDW Plt Count MPV Immature Gran % (Auto) Neut % (Auto) Lymph % (Auto) [place] % (Auto) Eos % (Auto) Baso % (Auto) Lymph # (Auto) [place] # (Auto) Eos # (Auto) Baso # (Auto) Abs Immat Gran (auto) Absolute Neuts (auto) Absolute Nucleated RBC Nucleated RBC % (auto) PT INR VBG pH 7.39 VBG pCO2 39 VBG pO2 43 VBG HCO3 24 VBG O2 Saturation 68.0 VBG Base Excess -0.5 Anion Gap Estim Creat Clear Calc Estimated GFR POC Glucose 133 H Random Glucose Calcium B-Natriuretic Peptide Influenza Type A (PCR) Influenza Type B (PCR) RSV RNA Qual (PCR) SARS-CoV-2 RNA (RT-PCR) Imaging Radiologist's Impressions: Impressions Chest X-Ray 08/25/23 16:26 IMPRESSION: Unremarkable examination. Chest CTA 08/25/23 18:44 IMPRESSION: No evidence for pulmonary embolism. Bilateral bnid-ak-fovxjfof pleural effusions with associated bibasilar consolidation most consistent with atelectasis. Infiltrates considered less likely. VTE: No evidence for pulmonary embolism. Assessment and Plan (1) Acute exacerbation of CHF (congestive heart failure): Status: Acute Plan This is a 82-year-old female with pertinent history of congestive heart failure with preserved ejection fraction, permanent atrial fibrillation on Coumadin, CKD stage 3, hypothyroidism, insulin-dependent diabetes mellitus, essential hypertension, neurogenic bladder who presents to the emergency department for evaluation of dyspnea. #. Acute hypoxemic respiratory failure secondary to acute exacerbation of congestive heart failure with preserved ejection fraction: Will admit patient with supplemental oxygen. Initiating IV diuresis. Strict I's and O's. Low- salt diet. Transition to p.o. Lasix once euvolemia is achieved. Obtaining transthoracic echocardiogram #.? Permanent atrial fibrillation -on Coumadin.? Goal INR 2-3.? Rate controlled #.? Insulin-dependent type 2 diabetes mellitus with hyperglycemia -initiating Accu-Cheks with sliding scale insulin.? Reduce home basal regimen while in the hospital #.? Hypothyroidism -on levothyroxine #.? Essential hypertension -continue home antihypertensives #.? Chronic kidney disease stage 3 -creatinine at baseline.? Monitor Med rec pending DVT prophylaxis: On Coumadin Diet:? Cardiac diet Admit as inpatient and will require two night minimum hospital stay for supplemental oxygen and IV diuresis Time Spent With Patient Time: Total time managing care of this patient today ____ minutes. Quality Stroke Does the patient have a stroke diagnosis?: No VTE Prior VTE?: No VTE Risk Level:: Medical - moderate - high VTE Device Contraindication: Treatment Not Indicated VTE Drug Contraindication: N/A - Med Ordered
--- NOTE | 2023-08-25 19:48 | PC.NURSE ---
MD notified tried to titrate from 3 to 2L NC but upper 80%s sat with some SOB at rest. talking w some mild short pauses
--- NOTE | 2023-08-25 19:58 | PHA.MEDREC ---
Pharmacy Consult ? Medication Reconciliation Pharmacy has completed the medication reconciliation. Spoke to pt's daughter Sandra, clinic changed coumadin dose to 1 mg daily until sat
[2023-08-25 21:28] LABS: Glucose, Whole Blood 184 mg/dL (60-115)
[2023-08-25] MEDS: Insulin Lispro 100 UNIT/ML 3 ML VIAL SUBCUT (21:53)
[2023-08-25] MEDS: Insulin Glargine,Hum.rec.anlog 100 UNIT/ML 10 ML VIAL 20 UNIT SUBCUT (21:54)
[2023-08-25] MEDS: Warfarin Sodium 1 MG TABLET PO (22:02)
[2023-08-25] MEDS: Atorvastatin Calcium 10 MG TABLET PO (22:02)
--- NOTE | 2023-08-25 22:04 | PC.NURSE ---
MD Porter notified pt o2 sat 93% on 5L NC. pt able to talk w minimal sob
--- NOTE | 2023-08-25 22:14 | PC.NURSE ---
wound dressing change to right heel pressure ulcer complete- cleansed- elevated off bed with pillow. new gown/sheet. new socks. aox4. calm, coop. watching TV
[2023-08-26] MEDS: 0.9 % Sodium Chloride Flush 3 ML SYRINGE IVFLUSH ×3 (00:55→21:26)
--- NOTE | 2023-08-26 04:15 | MHC.EDTECH ---
Pt concerned her urine bag was too full and t/w emptied bag, 1200ml of urine
[2023-08-26] MEDS: Morphine Sulfate 2 MG/ML CARTRIDGE IVPUSH (05:24)
[2023-08-26 06:00] LABS: Hematocrit 37.2 % (37.0-47.0); Hemoglobin 11.4 g/dl (12.0-16.0); Mean Corpuscular HGB Conc 30.6 g/dl (31.0-35.0); Mean Corpuscular Hemoglobin 26.6 pg (27.0-33.0); Mean Corpuscular Volume 86.9 fL (80.0-98.0); Mean Platelet Volume 8.4 fL (9.4-12.3); Platelet Count 308 X10*3/uL (160-400); Red Blood Count 4.28 X10*6/uL (4.20-5.50); Red Cell Distribution Width 17.9 % (11.0-16.0)
[2023-08-26 06:09] VITALS: BP 128/64; PULSE 76; RESP 20; O2SAT 95
[2023-08-26 06:25] LABS: INTERNATIONAL NORM RATIO 1.5 (0.9-1.1); Prothrombin Time 18.6 SEC (11.1-13.3)
[2023-08-26 06:32] LABS: Anion Gap 14 (12-20); Blood Urea Nitrogen 29 mg/dL (9-16); Calcium 9.2 mg/dL (8.4-10.2); Carbon Dioxide 22 mmol/L (22-29); Chloride 108 mmol/L (96-108); Creatinine Clr Calc Pharmacy 37.1; Estimated Glomerular Filt Rate 38; Glucose Random 66 mg/dL (60-115); Potassium 3.6 mmol/L (3.3-5.1); Sodium 140 mmol/L (135-145)
--- NOTE | 2023-08-26 06:48 | PC.NURSE ---
Assumed care of pt at 0500. Patient alert and oriented. Reporting 8/10 pain at this time. PT medicated as per DEC.
--- NOTE | 2023-08-26 07:00 | CA_ITS ---
Transthoracic Echocardiogram Patient (Last, First, Middle): Belen Brady I Gender: Female Date of : 1940 Age: 82 Procedure Date: 08/26/2023 Procedure Type: Transthoracic Echocardiogram Location: [facility] [place] Height: 165.1 cm Weight: 97.52 kg BSA: 2.04 m2 Heart Rate: bpm BP: 128 / 64 mmHg Transformer Mechanic: SOTO Referring MD: Sandy Porter MD Voip Technician: Lew Herrera MD Symptoms: CHF Study Quality: Adequate ECG Rhythm: Atrial Fibrillation Conclusions: - 1. Rrty-qc-apnfvfej LV systolic dysfunction with LVEF of 40-45% 2. At least mildly dilated left atrium 3. Rcdg-am-svtevocp aortic stenosis 4. Gvaq-vz-ptzsqymt elevation of right ventricular systolic pressure with significantly elevated right atrial pressures 5. No gross pericardial effusion Findings Left Ventricle Normal left ventricular cavity size. There is normal left ventricular wall thickness. The left ventricular systolic function is mild to moderately decreased. The visually estimated ejection fraction is between 40-45%. Diastolic function is indeterminate on the basis of available data. Right Ventricle Normal right ventricular cavity size. There is mild to moderately decreased right ventricular systolic function. Atria The left atrium is mildly dilated. Interatrial shunt cannot be excluded. The right atrium is likely dilated. Aortic Valve There is mild calcification of the aortic valve. There is mild to moderate aortic valve stenosis. There is no aortic valve regurgitation. Mitral Valve There is mild anterior and moderate posterior mitral leaflet thickening. There is mild posterior mitral annular calcification. There is mild mitral annular calcification. There is mild mitral valve regurgitation. There is no mitral valve stenosis. Pulmonic Valve The pulmonic valve was not well visualized. Tricuspid Valve Likely normal tricuspid valve structure and function. There is mild tricuspid valve regurgitation. Significantly elevated right atrial pressure. Mild to moderate pulmonary hypertension is present. Great Vessels All visible segments of the aorta are normal in size. The pulmonary artery was not well visualized. Venous The inferior vena cava is moderately dilated and collapses less than 50% with inspiration. Pericardium/Pleural There is no evidence of pericardial effusion. There is a left sided pleural effusion. Measurements 2D Linear Measurements IVSd: 0.98 0.6-0.9/0.6-1.0 cm LVIDd: 4.46 3.9-5.3/4.2-5.9 cm LVIDd Index: 2.19 2.4-3.2/2.2-3.1 cm/m2 LVIDs: 3.43 2.0-3.6 cm LVPWd: 1.12 0.7-1.1 cm LA Diam: 4.10 2.7-3.8/3.0-4.0 cm LAIDs Index: 2.01 1.5-2.3 cm/m2 LV Mass: 200.92 67-162/88-224 g LV Mass Index: 98.49 43-95/49-115 g/m2 LVOT Diam: 2.10 3.0+(-)1.3 cm 2D Systolic Function EF 4C: 47.60 >55% EF 2C: 37.80 >55% EF BiP: 41.90 >55% Mitral Valve MV Pk E: 1.30 MV Decel Time: 157.00 E'Lateral: 6.10 E/E' Lat: 21.30 Aortic Valve AoV Pk Marcus: 1.87 AoV Mn Marcus: 1.33 AoV VTI: 0.42 AoV Pk Grad: 15.00 Aov Mn Grad: 9.00 ANDI Cont.VTI: 1.32 LVOT LVOT Pk Marcus: 0.96 LVOT Mn Marcus: 0.68 LVOT VTI: 0.20 LVOT Pk Grad: 4.00 LVOT Mn Grad: 2.00 LVOT Diam: 2.10 LVOT Area: 3.46 Diastolic Function MV Pk E: 1.30 E' Laterial: 6.10 E/E' Lat: 21.30 Right Ventricle TAPSE (mm): 12.70 TVS' Marcus: 6.46 Tricuspid Valve TR Pk Marcus: 2.89 TR Pk Grad: 33.00 RA Press: 15.00 RVSP: 48.00 Great Vessels Aorta Sinus of Valsalva: 2.60 2.0-3.5 cm Ao Asc: 3.10 2.1-3.4 cm Pulmonary Valve PV Pk Marcus: 0.63 Peak PV Grad: 2.00 Updated in Other Vendor System with Status of Final Lew Herrera MD electronically signed on 08/26/2023 11:38:37 AM with status of Final
[2023-08-26] MEDS: Levothyroxine Sodium 25 MCG TABLET PO (07:06)
[2023-08-26 07:29] LABS: Glucose, Whole Blood 68 mg/dL (60-115)
[2023-08-26 07:59] LABS: Glucose, Whole Blood 80 mg/dL (60-115)
--- NOTE | 2023-08-26 08:40 | MHC.EDTECH ---
emptied urinary bag/ 300 mL . repositioned patient, and removed brief, patient states that she will ask her daughter to bring some from home.
--- NOTE | 2023-08-26 08:58 | PC.NURSE ---
patient has suprapubic martinez, emptied 300ml of urine
[2023-08-26] MEDS: Metoprolol Succinate ER 100 MG TAB.ER.24H 200 MG PO (09:42)
[2023-08-26] MEDS: amLODIPine Besylate 10 MG TABLET PO (09:42)
[2023-08-26] MEDS: Multivitamin TABLET 1 TAB PO (09:43)
[2023-08-26] MEDS: Aspirin Enteric Coated 81 MG TABLET.DR PO (09:43)
[2023-08-26] MEDS: Furosemide 40 MG/4 ML VIAL IVPUSH (09:44)
[2023-08-26 09:52] VITALS: BP 115/73; PULSE 90; RESP 18; O2SAT 94
--- NOTE | 2023-08-26 10:05 | MHC.CM.PN ---
PT REPORTS SHE LIVES AT HOME WITH HER DAUGHTER, LIZBETH SHE SAYS SHE IS INDEPENDENT WITH SELF CARE SHE STATES SHE IS NOW ACTIVE WITH [facility] AND [facility] [employer] SHE HAS A WALKER SHE USES AT [facility] AND [facility] ON FILE PCP: [facility]MM DELIVERED DCP: HOME [facility] TO TRANSPORT
[2023-08-26 10:38] VITALS: BP 148/66; PULSE 83; RESP 18; TEMP 36.1; O2SAT 93
[2023-08-26 11:26] LABS: Glucose, Whole Blood 98 mg/dL (60-115)
[2023-08-26] MEDS: oxyCODONE HCl Immed Release 5 MG TABLET PO ×2 (11:54→17:48)
[2023-08-26 13:58] VITALS: BMI 35.8
[2023-08-26] MEDS: Acetaminophen 325 MG TABLET 650 MG PO ×2 (14:56→21:25)
[2023-08-26 15:23] VITALS: BP 138/80; PULSE 82; RESP 19; TEMP 36.6; O2SAT 92
--- NOTE | 2023-08-26 16:00 | HO.PM.IMPN ---
Subjective Subjective Date of Service: 08/26/23 Interval History: c/o dyspnea + orthopnea negative 2900mL thus far Review of Systems Review of Systems: Yes all other systems are reviewed and are negative Physical Exam Vital Signs: Vital Signs: Last Vital Signs Temp 98 F 08/26/23 15:23 Pulse 82 08/26/23 15:23 Resp 19 08/26/23 15:23 BP 138/80 08/26/23 15:23 Pulse Ox 92 08/26/23 15:23 O2 Del Method Nasal Cannula 08/26/23 15:23 O2 Flow Rate 2.5 08/26/23 15:23 Oxygen Flow Rate 3 08/25/23 15:59 BMI result Body Mass Index 35.8 Gen: in no acute distress HEENT: sclera anicteric, moist mucus membranes Neck: supple, JVD Lungs: bibasilar inspiratory crackles Heart: irregular, 2/6 systolic murmur at base Abd: soft, non-tender, non-distended Ext: 1+ bilateral pitting leg edema Skin: warm/well-perfused Neuro: alert and oriented x3, no focal findings Psych: appropriate affect Objective Data Active Medications Acetaminophen (Acetaminophen 325 Mg Tablet) 650 mg PO Q6H PRN PRN Reason: Pain, Mild (Pain Scale 1-3) Last Admin: 08/26/23 14:56 Dose: 650 mg Documented By: XAVIER Amlodipine Besylate (Amlodipine Besylate 10 Mg Tablet) 10 mg PO DAILY [facility]; Protocol Last Admin: 08/26/23 09:42 Dose: 10 mg Documented By: DUANE Aspirin (Aspirin Enteric Coated 81 Mg Tablet.) 81 mg PO DAILY [facility] Last Admin: 08/26/23 09:43 Dose: 81 mg Documented By: DUANE Atorvastatin Calcium (Atorvastatin Calcium 10 Mg Tablet) 10 mg PO BEDTIME [facility] Last Admin: 08/25/23 22:02 Dose: 10 mg Documented By: MAGGY Dextrose (Dextrose 50 % 25 Gm/50 Ml Syringe) 25 gm IVPUSH Q15M PRN; Protocol PRN Reason: per Hypoglycemia Standing Ord. Furosemide (Furosemide 40 Mg/4 Ml Vial) 40 mg IVPUSH DAILY [facility]; Protocol Last Admin: 08/26/23 09:44 Dose: 40 mg Documented By: DUANE Glucose (Glucose Gel 15 Gm Gel..Gram.) 15 gm PO Q15M PRN; Protocol PRN Reason: per Hypoglycemia Standing Ord. Insulin Glargine (Insulin Glargine,Hum.Rec.Anlog 100 Unit/Ml 10 Ml Vial) 20 unit SUBCUT BEDTIME [facility] Last Admin: 08/25/23 21:54 Dose: 20 unit Documented By: MAGGY Insulin Human Lispro (Insulin Lispro 100 Unit/Ml 3 Ml Vial) 0 unit SUBCUT QIDACHS [facility]; Protocol Last Admin: 08/26/23 11:25 Dose: Not Given Documented By: XAVIER Non-Admin Reason: No Insulin Coverage Levothyroxine Sodium (Levothyroxine Sodium 25 Mcg Tablet) 25 mcg PO DAILY@0630 [facility] Last Admin: 08/26/23 07:06 Dose: 25 mcg Documented By: RUBA Melatonin (Melatonin 3 Mg Tablet) 6 mg PO BEDTIME PRN PRN Reason: Insomnia Metoprolol Succinate (Metoprolol Succinate Er 100 Mg Tab.Er.24h) 200 mg PO DAILY [facility]; Protocol Last Admin: 08/26/23 09:42 Dose: 200 mg Documented By: DUANE Multivitamins/Vitamin C (Multivitamin Tablet) 1 tab PO DAILY [facility] Last Admin: 08/26/23 09:43 Dose: 1 tab Documented By: DUANE Ondansetron HCl (Ondansetron Hcl 4 Mg/2 Ml Vial) 4 mg IVPUSH Q8H PRN PRN Reason: Nausea and Vomiting Oxycodone HCl (Oxycodone Hcl Immed Release 5 Mg Tablet) 5 mg PO Q6H PRN PRN Reason: Pain, Severe (Pain Scale 7-10) Last Admin: 08/26/23 11:54 Dose: 5 mg Documented By: XAVIER Silver Sulfadiazine (Silver Sulfadiazine 1 % Cream 20 Gm Tube) 1 appl TOPICAL DAILY [facility] Last Admin: 08/26/23 11:25 Dose: Not Given Documented By: XAVIER Non-Admin Reason: in ed Sodium Chloride (0.9 % Sodium Chloride Flush 3 Ml Syringe) 3 ml IVFLUSH QSHIFT [facility] Last Admin: 08/26/23 14:58 Dose: 3 ml Documented By: XAVIER Warfarin Sodium (Warfarin Sodium 1 Mg Tablet) 1 mg PO DAILY@1800 [facility] Last Admin: 08/25/23 22:02 Dose: 1 mg Documented By: MAGGY Labs 08/26/23 05:29 08/26/23 05:29 Labs: Laboratory Results - last 24 hr 08/25/23 08/25/23 08/25/23 15:50 16:58 17:04 MCV 87.7 MCH 27.2 MCHC 31.0 RDW 17.8 H Plt Count 316 MPV 8.6 L Immature Gran % (Auto) 0.7 H Neut % (Auto) 73.7 H Lymph % (Auto) 14.3 L [place] % (Auto) 9.2 Eos % (Auto) 1.4 Baso % (Auto) 0.7 Lymph # (Auto) 1.2 [place] # (Auto) 0.8 Eos # (Auto) 0.1 Baso # (Auto) 0.1 Abs Immat Gran (auto) 0.06 H Absolute Neuts (auto) 6.4 Absolute Nucleated RBC 0.000 Nucleated RBC % (auto) 0.0 PT 18.6 H D INR 1.5 H VBG pH 7.39 VBG pCO2 39 VBG pO2 43 VBG HCO3 24 VBG O2 Saturation 68.0 VBG Base Excess -0.5 Anion Gap 18 Estim Creat Clear Calc 36.6 Estimated GFR 37 POC Glucose Random Glucose 128 H Calcium 9.5 B-Natriuretic Peptide 806 H Influenza Type A (PCR) NEGATIVE Influenza Type B (PCR) NEGATIVE RSV RNA Qual (PCR) NEGATIVE SARS-CoV-2 RNA (RT-PCR) NEGATIVE 08/25/23 08/25/23 08/26/23 18:42 21:25 05:29 MCV 86.9 MCH 26.6 L MCHC 30.6 L RDW 17.9 H Plt Count 308 MPV 8.4 L Immature Gran % (Auto) Neut % (Auto) Lymph % (Auto) [place] % (Auto) Eos % (Auto) Baso % (Auto) Lymph # (Auto) [place] # (Auto) Eos # (Auto) Baso # (Auto) Abs Immat Gran (auto) Absolute Neuts (auto) Absolute Nucleated RBC 0.000 Nucleated RBC % (auto) 0.0 PT 18.6 H INR 1.5 H VBG pH VBG pCO2 VBG pO2 VBG HCO3 VBG O2 Saturation VBG Base Excess Anion Gap 14 Estim Creat Clear Calc 37.1 Estimated GFR 38 POC Glucose 133 H 184 H Random Glucose 66 Calcium 9.2 B-Natriuretic Peptide Influenza Type A (PCR) Influenza Type B (PCR) RSV RNA Qual (PCR) SARS-CoV-2 RNA (RT-PCR) 08/26/23 08/26/23 08/26/23 07:25 07:56 11:22 MCV MCH MCHC RDW Plt Count MPV Immature Gran % (Auto) Neut % (Auto) Lymph % (Auto) [place] % (Auto) Eos % (Auto) Baso % (Auto) Lymph # (Auto) [place] # (Auto) Eos # (Auto) Baso # (Auto) Abs Immat Gran (auto) Absolute Neuts (auto) Absolute Nucleated RBC Nucleated RBC % (auto) PT INR VBG pH VBG pCO2 VBG pO2 VBG HCO3 VBG O2 Saturation VBG Base Excess Anion Gap Estim Creat Clear Calc Estimated GFR POC Glucose 68 80 98 Random Glucose Calcium B-Natriuretic Peptide Influenza Type A (PCR) Influenza Type B (PCR) RSV RNA Qual (PCR) SARS-CoV-2 RNA (RT-PCR) TTE 1. Copc-aa-igwynhco LV systolic dysfunction with LVEF of 40-45% 2. At least mildly dilated left atrium 3. Dvsw-fj-yfsuyomd aortic stenosis 4. Zzaf-mv-jmlexrvj elevation of right ventricular systolic pressure with significantly elevated right atrial pressures 5. No gross pericardial effusion Assessment and Plan (1) Acute exacerbation of CHF (congestive heart failure): Status: Acute Assessment and Plan: d2 82yo F with HF with mildly reduced EF, permanent AF on warfarin, CKD3, hypothyroidism, DM2, HTN, neurogenic bladder presenting with dyspnea, admitted for CHF exacerbation acute hypoxic resp failure due to acute/chronic HF with mildly reduced EF - continue furosemide diuresis, trend BNP, monitor lytes + I/Os - continue metoprolol succinate - wean O2 as tolerated permanent AF - continue metoprolol succinate - warfarin, goal INR 2-3 HTN - metoprolol succinate, amlodipine DM2 - basal-bolus insulin HLD - statin hypothyroidism - continue LT4 R heel unstageable ulcer - wound care consultation VTE ppx - warfarin dispo - anticipate home with VNA eventually In my clinical judgment, the patient requires continued inpatient hospitalization for the following reasons: hypoxia, diuresis Plan Time Spent With Patient Time: Total time managing care of this patient today ___35_ minutes. Quality Stroke Does the patient have a stroke diagnosis?: No VTE Prior VTE?: No VTE Risk Level:: Medical - moderate - high VTE Device Contraindication: Treatment Not Indicated VTE Drug Contraindication: N/A - Med Ordered
[2023-08-26 16:06] LABS: Glucose, Whole Blood 165 mg/dL (60-115)
[2023-08-26] MEDS: Insulin Lispro 100 UNIT/ML 3 ML VIAL SUBCUT (16:16)
[2023-08-26] MEDS: Warfarin Sodium 1 MG TABLET PO (17:48)
[2023-08-26 19:27] VITALS: BP 122/65; PULSE 72; RESP 19; TEMP 36.6; O2SAT 96
[2023-08-26 20:47] LABS: Glucose, Whole Blood 138 mg/dL (60-115)
[2023-08-26] MEDS: Insulin Glargine,Hum.rec.anlog 100 UNIT/ML 10 ML VIAL 20 UNIT SUBCUT (21:25)
[2023-08-26] MEDS: Atorvastatin Calcium 10 MG TABLET PO (21:25)
[2023-08-26] MEDS: Melatonin 3 MG TABLET 6 MG PO (21:26)
[2023-08-27 04:00] VITALS: BP 122/74; PULSE 71; RESP 17; TEMP 36.2; O2SAT 91
[2023-08-27] MEDS: Levothyroxine Sodium 25 MCG TABLET PO (05:50)
[2023-08-27 06:08] LABS: INTERNATIONAL NORM RATIO 1.4 (0.9-1.1); Prothrombin Time 17.6 SEC (11.1-13.3)
[2023-08-27 06:10] LABS: Anion Gap 14 (12-20); Blood Urea Nitrogen 30 mg/dL (9-16); Calcium 8.5 mg/dL (8.4-10.2); Carbon Dioxide 22 mmol/L (22-29); Chloride 105 mmol/L (96-108); Creatinine Clr Calc Pharmacy 36.6; Estimated Glomerular Filt Rate 37; Glucose Random 87 mg/dL (60-115); Magnesium 2.2 mg/dL (1.6-2.6); Potassium 3.8 mmol/L (3.3-5.1); Sodium 137 mmol/L (135-145)
[2023-08-27 06:17] LABS: B Type Natriuretic Peptide 468 pg/mL (<100)
[2023-08-27 07:23] VITALS: BP 136/77; PULSE 77; RESP 18; TEMP 36.3; O2SAT 95
[2023-08-27 07:34] LABS: Glucose, Whole Blood 78 mg/dL (60-115)
[2023-08-27] MEDS: Aspirin Enteric Coated 81 MG TABLET.DR PO (07:52)
[2023-08-27] MEDS: Metoprolol Succinate ER 100 MG TAB.ER.24H 200 MG PO (07:52)
[2023-08-27] MEDS: 0.9 % Sodium Chloride Flush 3 ML SYRINGE IVFLUSH ×3 (07:53→20:23)
[2023-08-27] MEDS: amLODIPine Besylate 10 MG TABLET PO (07:53)
[2023-08-27] MEDS: Multivitamin TABLET 1 TAB PO (07:53)
[2023-08-27 08:52] VITALS: BP 136/77; PULSE 77; O2SAT 95
[2023-08-27 11:14] LABS: Glucose, Whole Blood 164 mg/dL (60-115)
[2023-08-27] MEDS: Furosemide 40 MG/4 ML VIAL IVPUSH ×2 (11:36→17:53)
[2023-08-27] MEDS: Milk of Magnesia 30 ML ORAL.SUSP PO (11:37)
[2023-08-27] MEDS: Insulin Lispro 100 UNIT/ML 3 ML VIAL SUBCUT ×2 (11:37→21:36)
[2023-08-27] MEDS: Sennosides/Docusate Sodium TABLET 2 TAB PO ×2 (11:37→20:23)
--- NOTE | 2023-08-27 12:25 | HO.WOUND ---
Wound Consult: Initial 82yr old female admitted to [facility] on?08/25/23 19:34 - See progress notes and H&P for detailed history. Right Heel Etiology: Unstageable Pressure Injury POA Measurements: 3cm x 4cm x 0.2cm Wound Bed: Adherent necrotic brown black soft eschar not stable - with moist yellow slough circumferential Drainage / Odor: Yellow riley mild odorous drainage noted on foam dressing when removed Edges: ? Epibole Maia wound: ? Intact pink callused tissue No Induration, Mild Fluctuance, Mild Erythema, and No Warmth Pain: Pt denies - reports neuropathy Goals of Treatment: ? Off Load Pressure - Santyl for enzymatic debridement Pt reports she has had the this wound for sometime - she is unaware of what it looked like previsouly but that for weeks her VNA nurses were treating at home but felt it was worsening so they referred her to outpt wound clinic - arrival to outpt wound clinic yesterday - she was transferred to Emergency Department at [facility]. Chart review reveals she was using Silvadine topically - currently wound bed is moist eschar and given her Diabetic status will benefit from Santyl to provide enzymatic debridement. Recommendations: 1. Turn and Reposition every 2 hours and as needed for patient comfort consider use of wedges available in the storeroom. 2. Off Load all bony prominences with use of pillows, wedges and heel boots. 3. Monitor for incontinence and moisture control. 4. Provide adequate and supplemental nutrition. 5. Order or Continue low air loss mattress. 6. Maintain blood glucose levels per Providers orders. 7. Right Heel - Off Load Pressure from bed and chair surface. Cleanse with normal saline, pat dry. ?Apply thin layer of Triad to the immediate maia wound, apply thick layer of Santyl to entire wound bed, cover with dry gauze then secure with abd pads, gauze wrap and tape, change Daily. Re-consult wound care Nurse for wound deterioration or wound changes.
--- NOTE | 2023-08-27 12:37 | HO.SKINPHOTO ---
Location: Right Heel Category: Stage: Length: Width: Depth: cm
--- NOTE | 2023-08-27 12:59 | P.PNIM_ITS ---
Subjective Subjective Date of Service: 08/27/23 Interval History: dyspneic edema improved no fever Review of Systems Review of Systems: Yes all other systems are reviewed and are negative Physical Exam 2 Vital Signs: Vital Signs: Last Vital Signs Temp 97.3 F 08/27/23 07:23 Pulse 77 08/27/23 08:52 Resp 18 08/27/23 07:23 BP 136/77 08/27/23 08:52 Pulse Ox 95 08/27/23 08:52 O2 Del Method Nasal Cannula 08/27/23 07:23 O2 Flow Rate 3 08/27/23 07:23 Oxygen Flow Rate 3 08/25/23 15:59 BMI result Body Mass Index 35.8 Gen: in no acute distress HEENT: sclera anicteric, moist mucus membranes Neck: supple, JVD Lungs: bibasilar inspiratory crackles Heart: irregular, 2/6 systolic murmur at base Abd: soft, non-tender, non-distended Ext: trace bilateral pitting leg edema Skin: warm/well-perfused Neuro: alert and oriented x3, no focal findings Psych: appropriate affect Objective Data Active Medications Acetaminophen (Acetaminophen 325 Mg Tablet) 650 mg PO Q6H PRN PRN Reason: Pain, Mild (Pain Scale 1-3) Last Admin: 08/26/23 21:25 Dose: 650 mg Documented By: URMILA Amlodipine Besylate (Amlodipine Besylate 10 Mg Tablet) 10 mg PO DAILY [facility]; Protocol Last Admin: 08/27/23 07:53 Dose: 10 mg Documented By: KRISTI Aspirin (Aspirin Enteric Coated 81 Mg Tablet.) 81 mg PO DAILY [facility] Last Admin: 08/27/23 07:52 Dose: 81 mg Documented By: KRISTI Atorvastatin Calcium (Atorvastatin Calcium 10 Mg Tablet) 10 mg PO BEDTIME [facility] Last Admin: 08/26/23 21:25 Dose: 10 mg Documented By: URMILA Collagenase (Collagenase Clostridium Hist. 30 Gm Tube) 1 appl TOPICAL DAILY [facility]; Protocol Dextrose (Dextrose 50 % 25 Gm/50 Ml Syringe) 25 gm IVPUSH Q15M PRN; Protocol PRN Reason: per Hypoglycemia Standing Ord. Furosemide (Furosemide 40 Mg/4 Ml Vial) 40 mg IVPUSH BID@0900,1800 [facility]; Protocol Glucose (Glucose Gel 15 Gm Gel..Gram.) 15 gm PO Q15M PRN; Protocol PRN Reason: per Hypoglycemia Standing Ord. Insulin Glargine (Insulin Glargine,Hum.Rec.Anlog 100 Unit/Ml 10 Ml Vial) 20 unit SUBCUT BEDTIME [facility] Last Admin: 08/26/23 21:25 Dose: 20 unit Documented By: URMILA Insulin Human Lispro (Insulin Lispro 100 Unit/Ml 3 Ml Vial) 0 unit SUBCUT QIDACHS [facility]; Protocol Last Admin: 08/27/23 11:37 Dose: 2 unit Documented By: KRISTI Levothyroxine Sodium (Levothyroxine Sodium 25 Mcg Tablet) 25 mcg PO DAILY@0630 [facility] Last Admin: 08/27/23 05:50 Dose: 25 mcg Documented By: URMILA Magnesium Hydroxide (Milk Of Magnesia 30 Ml Oral.Susp) 30 ml PO TID PRN PRN Reason: Constipation Last Admin: 08/27/23 11:37 Dose: 30 ml Documented By: KRISTI Melatonin (Melatonin 3 Mg Tablet) 6 mg PO BEDTIME PRN PRN Reason: Insomnia Last Admin: 08/26/23 21:26 Dose: 6 mg Documented By: URMILA Metoprolol Succinate (Metoprolol Succinate Er 100 Mg Tab.Er.24h) 200 mg PO DAILY [facility]; Protocol Last Admin: 08/27/23 07:52 Dose: 200 mg Documented By: KRISTI Multivitamins/Vitamin C (Multivitamin Tablet) 1 tab PO DAILY [facility] Last Admin: 08/27/23 07:53 Dose: 1 tab Documented By: KRISTI Ondansetron HCl (Ondansetron Hcl 4 Mg/2 Ml Vial) 4 mg IVPUSH Q8H PRN PRN Reason: Nausea and Vomiting Oxycodone HCl (Oxycodone Hcl Immed Release 5 Mg Tablet) 5 mg PO Q6H PRN PRN Reason: Pain, Severe (Pain Scale 7-10) Last Admin: 08/26/23 17:48 Dose: 5 mg Documented By: XAVIER Senna/Docusate Sodium (Sennosides/Docusate Sodium Tablet) 2 tab PO BID [facility] Last Admin: 08/27/23 11:37 Dose: 2 tab Documented By: KRISTI Silver Sulfadiazine (Silver Sulfadiazine 1 % Cream 20 Gm Tube) 1 appl TOPICAL DAILY [facility] Last Admin: 08/27/23 10:51 Dose: 1 appl Documented By: KRISTI Sodium Chloride (0.9 % Sodium Chloride Flush 3 Ml Syringe) 3 ml IVFLUSH QSHIFT [facility] Last Admin: 08/27/23 07:53 Dose: 3 ml Documented By: KRISTI Warfarin Sodium (Warfarin Sodium 1 Mg Tablet) 1 mg PO DAILY@1800 [facility] Last Admin: 08/26/23 17:48 Dose: 1 mg Documented By: XAVIER Warfarin Sodium (Warfarin Sodium 2 Mg Tablet) 2 mg PO ONCE@1800 [facility] Stop: 08/27/23 18:01 Labs 08/26/23 05:29 08/27/23 05:20 Labs: Laboratory Results - last 24 hr 08/26/23 08/26/23 08/27/23 15:58 20:41 05:20 PT 17.6 H INR 1.4 H Anion Gap 14 Estim Creat Clear Calc 36.6 Estimated GFR 37 POC Glucose 165 H 138 H Random Glucose 87 Calcium 8.5 D Magnesium 2.2 B-Natriuretic Peptide 468 H 08/27/23 08/27/23 07:20 11:10 PT INR Anion Gap Estim Creat Clear Calc Estimated GFR POC Glucose 78 164 H Random Glucose Calcium Magnesium B-Natriuretic Peptide Assessment and Plan (1) Acute exacerbation of CHF (congestive heart failure): Status: Acute Assessment and Plan: d3 82yo F with HF with mildly reduced EF, permanent AF on warfarin, CKD3, hypothyroidism, DM2, HTN, neurogenic bladder presenting with dyspnea, admitted for CHF exacerbation acute hypoxic resp failure due to acute/chronic HF with mildly reduced EF - increase furosemide diuresis, trend BNP, monitor lytes + I/Os - continue metoprolol succinate - wean O2 as tolerated - TTE 08/26/23: 1. Iscu-ky-bhlxrzyo LV systolic dysfunction with LVEF of 40-45% 2. At least mildly dilated left atrium 3. Tqye-on-hcqejhcp aortic stenosis 4. Pdse-ri-smoirjkz elevation of right ventricular systolic pressure with significantly elevated right atrial pressures 5. No gross pericardial effusion permanent AF - continue metoprolol succinate - warfarin, goal INR 2-3- give 1 extra dose of warfarin today HTN - metoprolol succinate, amlodipine DM2 - basal-bolus insulin HLD - statin hypothyroidism - continue LT4 R heel unstageable ulcer - wound care consulted: Etiology: Unstageable Pressure Injury POA Measurements: 3cm x 4cm x 0.2cm Wound Bed: Adherent necrotic brown black soft eschar not stable - with moist yellow slough circumferential Drainage / Odor: Yellow riley mild odorous drainage noted on foam dressing when removed Edges: ? Epibole Stephania wound: ? Intact pink callused tissue No Induration, Mild Fluctuance, Mild Erythema, and No Warmth Pain: Pt denies - reports neuropathy Goals of Treatment: ? Off Load Pressure - Santyl for enzymatic debridement Recommendations: 1. Turn and Reposition every 2 hours and as needed for patient comfort consider use of wedges available in the storeroom. 2. Off Load all bony prominences with use of pillows, wedges and heel boots. 3. Monitor for incontinence and moisture control. 4. Provide adequate and supplemental nutrition. 5. Order or Continue low air loss mattress. 6. Maintain blood glucose levels per Providers orders. 7. Right Heel - Off Load Pressure from bed and chair surface. Cleanse with normal saline, pat dry. ?Apply thin layer of Triad to the immediate stephania wound, apply thick layer of Santyl to entire wound bed, cover with dry gauze then secure with abd pads, gauze wrap and tape, change Daily. VTE ppx - warfarin dispo - anticipate home with VNA eventually In my clinical judgment, the patient requires continued inpatient hospitalization for the following reasons: hypoxia, diuresis Plan Time Spent With Patient Time: Total time managing care of this patient today ___35_ minutes. Quality Stroke Does the patient have a stroke diagnosis?: No VTE Prior VTE?: No VTE Risk Level:: Medical - moderate - high VTE Device Contraindication: Treatment Not Indicated VTE Drug Contraindication: N/A - Med Ordered
--- NOTE | 2023-08-27 13:13 | MHC.CM.PN ---
Pt has been to [facility], and [facility] in recent past, she agrees to go to either if she is to remain non-weight bearing due to ulcer on her heel. If provider says it is OK for her to walk, then she would like to return to her home, where she has VNA services and family to assist her. She is a patient of the [facility] wound clinic. Med equip at home includes: standard walker, wheeled walker, W/C, recliner, tub bench.
[2023-08-27 16:00] VITALS: BP 123/65; PULSE 81; RESP 18; TEMP 36.3; O2SAT 93
[2023-08-27 16:35] LABS: Glucose, Whole Blood 143 mg/dL (60-115)
[2023-08-27] MEDS: Warfarin Sodium 2 MG TABLET PO (17:53)
[2023-08-27 19:57] LABS: Glucose, Whole Blood 177 mg/dL (60-115)
[2023-08-27 20:00] VITALS: BP 139/66; PULSE 90; RESP 18; TEMP 37; O2SAT 94
[2023-08-27] MEDS: Atorvastatin Calcium 10 MG TABLET PO (20:23)
[2023-08-27] MEDS: Insulin Glargine,Hum.rec.anlog 100 UNIT/ML 10 ML VIAL 20 UNIT SUBCUT (21:37)
[2023-08-28 03:55] VITALS: BP 140/79; PULSE 78; RESP 18; TEMP 36.7; O2SAT 92
[2023-08-28] MEDS: Levothyroxine Sodium 25 MCG TABLET PO (05:45)
[2023-08-28 06:26] LABS: INTERNATIONAL NORM RATIO 1.5 (0.9-1.1); Prothrombin Time 18.8 SEC (11.1-13.3)
[2023-08-28 06:35] LABS: Anion Gap 13 (12-20); Blood Urea Nitrogen 29 mg/dL (9-16); Calcium 8.7 mg/dL (8.4-10.2); Carbon Dioxide 27 mmol/L (22-29); Chloride 102 mmol/L (96-108); Creatinine Clr Calc Pharmacy 37.1; Estimated Glomerular Filt Rate 38; Glucose Random 95 mg/dL (60-115); Magnesium 2.1 mg/dL (1.6-2.6); Potassium 4.2 mmol/L (3.3-5.1); Sodium 138 mmol/L (135-145)
[2023-08-28 06:42] LABS: B Type Natriuretic Peptide 630 pg/mL (<100)
[2023-08-28 07:25] VITALS: BP 131/68; PULSE 92; RESP 18; TEMP 36.7; O2SAT 96
[2023-08-28 07:36] LABS: Glucose, Whole Blood 89 mg/dL (60-115)
[2023-08-28] MEDS: 0.9 % Sodium Chloride Flush 3 ML SYRINGE IVFLUSH ×2 (08:59→20:34)
[2023-08-28] MEDS: Multivitamin TABLET 1 TAB PO (09:00)
[2023-08-28] MEDS: Silver Sulfadiazine 1 % Cream 20 GM TUBE 1 APPL TOPICAL (09:02)
[2023-08-28] MEDS: amLODIPine Besylate 10 MG TABLET PO (09:02)
[2023-08-28] MEDS: Aspirin Enteric Coated 81 MG TABLET.DR PO (09:02)
[2023-08-28] MEDS: Metoprolol Succinate ER 100 MG TAB.ER.24H 200 MG PO (09:02)
--- NOTE | 2023-08-28 09:12 | MHC.CM.PN ---
PT evaluation has been performed. The recommendation is for STR. [facility] is following for discharge. Per MD patient is not ready for discharge today. A clinical update has been sent to the facility. DP STR via BLS vs Home with resumption of VNA. Family will provide transportation is dispo is home.
[2023-08-28 09:17] VITALS: BP 131/68; PULSE 92; O2SAT 96
[2023-08-28 11:11] LABS: Glucose, Whole Blood 86 mg/dL (60-115)
--- NOTE | 2023-08-28 11:36 | P.PNIM_ITS ---
Subjective Subjective Date of Service: 08/28/23 Interval History: c/o dyspnea, orthopnea Review of Systems Review of Systems: Yes all other systems are reviewed and are negative Physical Exam 2 Vital Signs: Vital Signs: Last Vital Signs Temp 98.1 F 08/28/23 07:25 Pulse 92 08/28/23 09:17 Resp 18 08/28/23 07:25 BP 131/68 08/28/23 09:17 Pulse Ox 96 08/28/23 09:17 O2 Del Method Nasal Cannula 08/28/23 07:25 O2 Flow Rate 2 08/28/23 07:25 Oxygen Flow Rate 3 08/25/23 15:59 BMI result Body Mass Index 35.8 Gen: in no acute distress HEENT: sclera anicteric, moist mucus membranes Neck: supple, JVD Lungs: bibasilar inspiratory crackles Heart: irregular, 2/6 systolic murmur at base Abd: soft, non-tender, non-distended Ext: trace bilateral pitting leg edema Skin: warm/well-perfused Neuro: alert and oriented x3, no focal findings Psych: appropriate affect Objective Data Active Medications Acetaminophen (Acetaminophen 325 Mg Tablet) 650 mg PO Q6H PRN PRN Reason: Pain, Mild (Pain Scale 1-3) Last Admin: 08/26/23 21:25 Dose: 650 mg Documented By: URMILA Amlodipine Besylate (Amlodipine Besylate 10 Mg Tablet) 10 mg PO DAILY [facility]; Protocol Last Admin: 08/28/23 09:02 Dose: 10 mg Documented By: ASAD Aspirin (Aspirin Enteric Coated 81 Mg Tablet.) 81 mg PO DAILY [facility] Last Admin: 08/28/23 09:02 Dose: 81 mg Documented By: ASAD Atorvastatin Calcium (Atorvastatin Calcium 10 Mg Tablet) 10 mg PO BEDTIME [facility] Last Admin: 08/27/23 20:23 Dose: 10 mg Documented By: URMILA Collagenase (Collagenase Clostridium Hist. 30 Gm Tube) 1 appl TOPICAL DAILY [facility]; Protocol Last Admin: 08/27/23 13:08 Dose: Not Given Documented By: KRISTI Non-Admin Reason: wound care nurse changed dressing at bedside Dextrose (Dextrose 50 % 25 Gm/50 Ml Syringe) 25 gm IVPUSH Q15M PRN; Protocol PRN Reason: per Hypoglycemia Standing Ord. Furosemide (Furosemide 40 Mg/4 Ml Vial) 40 mg IVPUSH BID@0900,1800 [facility]; Protocol Last Admin: 08/27/23 17:53 Dose: 40 mg Documented By: VINICIUS Glucose (Glucose Gel 15 Gm Gel..Gram.) 15 gm PO Q15M PRN; Protocol PRN Reason: per Hypoglycemia Standing Ord. Insulin Glargine (Insulin Glargine,Hum.Rec.Anlog 100 Unit/Ml 10 Ml Vial) 20 unit SUBCUT BEDTIME [facility] Last Admin: 08/27/23 21:37 Dose: 20 unit Documented By: URMILA Insulin Human Lispro (Insulin Lispro 100 Unit/Ml 3 Ml Vial) 0 unit SUBCUT QIDACHS [facility]; Protocol Last Admin: 08/28/23 08:05 Dose: Not Given Documented By: ASAD Non-Admin Reason: No Insulin Coverage Levothyroxine Sodium (Levothyroxine Sodium 25 Mcg Tablet) 25 mcg PO DAILY@0630 [facility] Last Admin: 08/28/23 05:45 Dose: 25 mcg Documented By: URMILA Magnesium Hydroxide (Milk Of Magnesia 30 Ml Oral.Susp) 30 ml PO TID PRN PRN Reason: Constipation Last Admin: 08/27/23 11:37 Dose: 30 ml Documented By: KRISTI Melatonin (Melatonin 3 Mg Tablet) 6 mg PO BEDTIME PRN PRN Reason: Insomnia Last Admin: 08/26/23 21:26 Dose: 6 mg Documented By: URMILA Metoprolol Succinate (Metoprolol Succinate Er 100 Mg Tab.Er.24h) 200 mg PO DAILY [facility]; Protocol Last Admin: 08/28/23 09:02 Dose: 200 mg Documented By: ASAD Multivitamins/Vitamin C (Multivitamin Tablet) 1 tab PO DAILY [facility] Last Admin: 08/28/23 09:00 Dose: 1 tab Documented By: ASAD Ondansetron HCl (Ondansetron Hcl 4 Mg/2 Ml Vial) 4 mg IVPUSH Q8H PRN PRN Reason: Nausea and Vomiting Oxycodone HCl (Oxycodone Hcl Immed Release 5 Mg Tablet) 5 mg PO Q6H PRN PRN Reason: Pain, Severe (Pain Scale 7-10) Last Admin: 08/26/23 17:48 Dose: 5 mg Documented By: XAVIER Senna/Docusate Sodium (Sennosides/Docusate Sodium Tablet) 2 tab PO BID [facility] Last Admin: 08/28/23 09:03 Dose: Not Given Documented By: ASAD Non-Admin Reason: Large loose stool. Silver Sulfadiazine (Silver Sulfadiazine 1 % Cream 20 Gm Tube) 1 appl TOPICAL DAILY [facility] Last Admin: 08/28/23 09:02 Dose: 1 appl Documented By: ASAD Sodium Chloride (0.9 % Sodium Chloride Flush 3 Ml Syringe) 3 ml IVFLUSH QSHIFT [facility] Last Admin: 08/28/23 08:59 Dose: 3 ml Documented By: ASAD Warfarin Sodium (Warfarin Sodium 1 Mg Tablet) 1 mg PO DAILY@1800 [facility] Last Admin: 08/26/23 17:48 Dose: 1 mg Documented By: XAVIER Warfarin Sodium (Warfarin Sodium 2 Mg Tablet) 2 mg PO ONCE@1800 ONE Stop: 08/28/23 18:01 Labs 08/26/23 05:29 08/28/23 05:52 Labs: Laboratory Results - last 24 hr 08/27/23 08/27/23 08/28/23 16:18 19:50 05:52 PT 18.8 H INR 1.5 H Anion Gap 13 Estim Creat Clear Calc 37.1 Estimated GFR 38 POC Glucose 143 H 177 H Random Glucose 95 Calcium 8.7 Magnesium 2.1 B-Natriuretic Peptide 630 H 08/28/23 08/28/23 07:31 11:07 PT INR Anion Gap Estim Creat Clear Calc Estimated GFR POC Glucose 89 86 Random Glucose Calcium Magnesium B-Natriuretic Peptide Assessment and Plan (1) Acute exacerbation of CHF (congestive heart failure): Status: Acute Assessment and Plan: d4 82yo F with HF with mildly reduced EF, permanent AF on warfarin, CKD3, hypothyroidism, DM2, HTN, neurogenic bladder presenting with dyspnea, admitted for CHF exacerbation acute hypoxic resp failure due to acute/chronic HF with mildly reduced EF - continue furosemide diuresis, trend BNP, monitor lytes + I/Os - continue metoprolol succinate - wean O2 as tolerated - TTE 08/26/23: 1. Fibh-sx-xjaqccmp LV systolic dysfunction with LVEF of 40-45% 2. At least mildly dilated left atrium 3. Nlvh-qm-wqeufpbq aortic stenosis 4. Hgui-rk-ijxjvqmp elevation of right ventricular systolic pressure with significantly elevated right atrial pressures 5. No gross pericardial effusion - consult cardiology permanent AF - continue metoprolol succinate - warfarin, goal INR 2-3- give 1 extra dose of warfarin today again HTN - metoprolol succinate, amlodipine DM2 - basal-bolus insulin HLD - statin hypothyroidism - continue LT4 R heel unstageable ulcer - wound care consulted: Etiology: Unstageable Pressure Injury POA Measurements: 3cm x 4cm x 0.2cm Wound Bed: Adherent necrotic brown black soft eschar not stable - with moist yellow slough circumferential Drainage / Odor: Yellow riley mild odorous drainage noted on foam dressing when removed Edges: ? Epibole Stephania wound: ? Intact pink callused tissue No Induration, Mild Fluctuance, Mild Erythema, and No Warmth Pain: Pt denies - reports neuropathy Goals of Treatment: ? Off Load Pressure - Santyl for enzymatic debridement Recommendations: 1. Turn and Reposition every 2 hours and as needed for patient comfort consider use of wedges available in the storeroom. 2. Off Load all bony prominences with use of pillows, wedges and heel boots. 3. Monitor for incontinence and moisture control. 4. Provide adequate and supplemental nutrition. 5. Order or Continue low air loss mattress. 6. Maintain blood glucose levels per Providers orders. 7. Right Heel - Off Load Pressure from bed and chair surface. Cleanse with normal saline, pat dry. ?Apply thin layer of Triad to the immediate stephania wound, apply thick layer of Santyl to entire wound bed, cover with dry gauze then secure with abd pads, gauze wrap and tape, change Daily. VTE ppx - warfarin dispo - STR recommended In my clinical judgment, the patient requires continued inpatient hospitalization for the following reasons: hypoxia, diuresis Plan Time Spent With Patient Time: Total time managing care of this patient today _35___ minutes. Quality Stroke Does the patient have a stroke diagnosis?: No VTE Prior VTE?: No VTE Risk Level:: Medical - moderate - high VTE Device Contraindication: Treatment Not Indicated VTE Drug Contraindication: N/A - Med Ordered
--- NOTE | 2023-08-28 11:45 | MHC.CLN ---
NUTRITION PATIENT WITH DIABETIC FOOT ULCER TO RIGHT HEEL. NOT DEEMED PRESSURE INJURY. DIET=CARDIAC. NOT ADDING DIABETIC DIET AT THIS TIME PER CONVERSATION WITH PATIENT. REPORTED HX OF DECLINE IN PO INTAKE. CURRENT PO AT LEAST 50% AT MEALS. CONTINUE CARDIAC DIET WITH ENSURE MAX PROTEIN BID. RD TO FOLLOW UP WEEKLY.
--- NOTE | 2023-08-28 13:55 | P.CONCA_ITS ---
History of Present Illness History of Present Illness Date of Service: 08/28/23 Requesting physician: Ha Adame Consult reason: atrial fibrillation and congestive heart failure Chief complaint: dyspnea Narrative: I was consulted to see Belen in cardiology consultation today for congestive heart failure and atrial fibrillation. Patient was admitted few days ago with progressive symptoms of shortness of breath as well as symptoms of orthopnea not able to lay flat with prior history of chronic/permanent atrial fibrillation, diastolic heart failure, CAD, aortic stenosis, hypertension, diabetes. Patient has no prior history of congestive heart failure. Came to the hospital and was noted to have elevated BNP and findings consistent with congestive heart failure with fluid overload and bilateral pleural effusion. Chest CT consistent with underlying atelectasis. Patient has been diuresed in overall negative balance of about 3.5 L although continues to be hypoxic and still short of breath. Echo from yesterday shows udzu-nl-kxgjqzap LV systolic dysfunction with zjxu-wy-lscurtmq aortic stenosis and significantly elevated right atrial pressures. Review of Systems 2 Constitutional: Constitutional: Reports no additional constitutional complaints Eyes: Eyes: Reports no additional eye complaints Cardiovascular: Cardiovascular: Denies chest pain, Reports leg edema, Denies lightheadedness, Denies Loss of Consciousness, Denies palpitations, Reports dyspnea on exertion and Reports orthopnea Respiratory: Respiratory: Reports no additional respiratory complaints and Reports dyspnea on exertion Gastrointestinal: Gastrointestinal: Reports no additional gastrointestinal complaints Genitourinary: Genitourinary: Reports no additional female genitourinary complaints Musculoskeletal: Musculoskeletal: Reports no additional musculoskeletal complaints Neurologic: Reports system reviewed and no additional complaints, except as documented Psychiatric: Psychiatric: Reports no additional psychiatric complaints Endocrine: Endocrine: Denies palpitations [facility] Past Medical History Medical History DOROTHY (acute kidney injury) Neuropathy Neurogenic bladder CVA (cerebral vascular accident) Shingles Elevated cholesterol Myocardial infarction MRSA infection Hip pain Leg wound, left Varicose vein of leg Osteoarthritis of right hip Current use of anticoagulant therapy Recurrent UTI Atrial fibrillation PAF (paroxysmal atrial fibrillation) Congestive heart failure Urinary incontinence Hypothyroidism Diabetes Hypertension CKD (chronic kidney disease) CAD (coronary artery disease) Hypotonic neurogenic bladder Family History Family History Father Hx of angina pectoris Myocardial infarction Mother Ovarian cancer Stomach cancer Maternal Grandfather Hardening of the arteries of the heart Surgical History Surgical History History of left knee replacement History of right knee joint replacement H/O heart artery stent H/O nasal polypectomy History of tubal ligation History of tonsillectomy and adenoidectomy Hx of cholecystectomy Social History Social History Household Members: Family Household Members Other:: daughter Housing: House Are you a primary primary care coordinator to a significant other at home: No Do you presently have visiting nurse or other home services: Yes Alcohol intake: never Patient Tobacco Use Status: Never used Tobacco Second Hand Smoke Exposure: No Advance Directives Date on File: 08/27/22 service: No Current occupational status: retired [employer] Allergies Allergy/AdvReac Type Severity Reaction Status Date / Time No Known Allergies Allergy Verified 08/24/23 11:51 [No Known Allergies*] Active Medications: Current Medications Acetaminophen (Acetaminophen 325 Mg Tablet) 650 mg PO Q6H PRN PRN Reason: Pain, Mild (Pain Scale 1-3) Last Admin: 08/26/23 21:25 Dose: 650 mg Amlodipine Besylate (Amlodipine Besylate 10 Mg Tablet) 10 mg PO DAILY [facility]; Protocol Last Admin: 08/28/23 09:02 Dose: 10 mg Aspirin (Aspirin Enteric Coated 81 Mg Tablet.Dr) 81 mg PO DAILY [facility] Last Admin: 08/28/23 09:02 Dose: 81 mg Atorvastatin Calcium (Atorvastatin Calcium 10 Mg Tablet) 10 mg PO BEDTIME [facility] Last Admin: 08/27/23 20:23 Dose: 10 mg Collagenase (Collagenase Clostridium Hist. 30 Gm Tube) 1 appl TOPICAL DAILY [facility]; Protocol Last Admin: 08/27/23 13:08 Dose: Not Given Dextrose (Dextrose 50 % 25 Gm/50 Ml Syringe) 25 gm IVPUSH Q15M PRN; Protocol PRN Reason: per Hypoglycemia Standing Ord. Furosemide (Furosemide 40 Mg/4 Ml Vial) 40 mg IVPUSH BID@0900,1800 [facility]; Protocol Last Admin: 08/27/23 17:53 Dose: 40 mg Glucose (Glucose Gel 15 Gm Gel..Gram.) 15 gm PO Q15M PRN; Protocol PRN Reason: per Hypoglycemia Standing Ord. Insulin Glargine (Insulin Glargine,Hum.Rec.Anlog 100 Unit/Ml 10 Ml Vial) 20 unit SUBCUT BEDTIME [facility] Last Admin: 08/27/23 21:37 Dose: 20 unit Insulin Human Lispro (Insulin Lispro 100 Unit/Ml 3 Ml Vial) 0 unit SUBCUT QIDACHS [facility]; Protocol Last Admin: 08/28/23 12:34 Dose: Not Given Levothyroxine Sodium (Levothyroxine Sodium 25 Mcg Tablet) 25 mcg PO DAILY@0630 [facility] Last Admin: 08/28/23 05:45 Dose: 25 mcg Magnesium Hydroxide (Milk Of Magnesia 30 Ml Oral.Susp) 30 ml PO TID PRN PRN Reason: Constipation Last Admin: 08/27/23 11:37 Dose: 30 ml Melatonin (Melatonin 3 Mg Tablet) 6 mg PO BEDTIME PRN PRN Reason: Insomnia Last Admin: 08/26/23 21:26 Dose: 6 mg Metoprolol Succinate (Metoprolol Succinate Er 100 Mg Tab.Er.24h) 200 mg PO DAILY [facility]; Protocol Last Admin: 08/28/23 09:02 Dose: 200 mg Multivitamins/Vitamin C (Multivitamin Tablet) 1 tab PO DAILY [facility] Last Admin: 08/28/23 09:00 Dose: 1 tab Ondansetron HCl (Ondansetron Hcl 4 Mg/2 Ml Vial) 4 mg IVPUSH Q8H PRN PRN Reason: Nausea and Vomiting Oxycodone HCl (Oxycodone Hcl Immed Release 5 Mg Tablet) 5 mg PO Q6H PRN PRN Reason: Pain, Severe (Pain Scale 7-10) Last Admin: 08/26/23 17:48 Dose: 5 mg Senna/Docusate Sodium (Sennosides/Docusate Sodium Tablet) 2 tab PO BID [facility] Last Admin: 08/28/23 09:03 Dose: Not Given Silver Sulfadiazine (Silver Sulfadiazine 1 % Cream 20 Gm Tube) 1 appl TOPICAL DAILY [facility] Last Admin: 08/28/23 09:02 Dose: 1 appl Sodium Chloride (0.9 % Sodium Chloride Flush 3 Ml Syringe) 3 ml IVFLUSH QSHIFT [facility] Last Admin: 08/28/23 08:59 Dose: 3 ml Warfarin Sodium (Warfarin Sodium 1 Mg Tablet) 1 mg PO DAILY@1800 [facility] Last Admin: 08/26/23 17:48 Dose: 1 mg Warfarin Sodium (Warfarin Sodium 2 Mg Tablet) 2 mg PO ONCE@1800 ONE Stop: 08/28/23 18:01 Home Medications Medication Instructions Recorded Confirmed Last Taken Type levothyroxine 25 mcg tablet 25 mcg PO DAILY 09/05/20 08/25/23 08/25/23 History aspirin 81 mg tablet,delayed 81 mg PO DAILY 09/11/21 08/25/23 08/25/23 History release pen needle, diabetic 32 gauge x #50 ea 12/31/21 08/24/23 Unknown History (BD Cathy 2nd Gen Pen Needle) multivitamin (One Daily 1 tab PO DAILY 09/15/22 08/25/23 08/25/23 History Multivitamin tablet) lancets 28 gauge (FreeStyle #100 ea 09/29/22 08/24/23 Unknown History Lancets) vitamins A,C,Y-hsip-qpvdeh 2,148 1 tab PO BIDWM 05/09/23 08/25/23 08/25/23 History mcg-113 mg-45 mg-17.4 mg tablet (PreserVision AREDS) insulin glargine 100 unit/mL 25 unit subcut BEDTIME 06/04/23 08/25/23 08/24/23 History subcutaneous solution (Lantus U-100 Insulin) melatonin 5 mg tablet 10 mg PO BEDTIME PRN Sleep 06/04/23 08/25/23 08/24/23 History amlodipine 5 mg tablet 10 mg PO DAILY 08/25/23 08/25/23 08/25/23 History insulin lispro 100 unit/mL 1 sliding scale dose subcut QIDACHS 08/25/23 08/25/23 Unknown History subcutaneous pen (Humalog KwikPen (U-100) Insulin) silver sulfadiazine 1 % topical 1 appl topical DAILY 08/25/23 08/25/23 08/25/23 History cream (SSD) warfarin 1 mg tablet (Jantoven) 1 mg PO DAILY 08/25/23 08/25/23 08/24/23 History Physical Exam 2 Vital Signs: Vital Signs: Last Vital Signs Temp 98.1 F 08/28/23 07:25 Pulse 92 08/28/23 09:17 Resp 18 08/28/23 07:25 BP 131/68 08/28/23 09:17 Pulse Ox 96 08/28/23 09:17 O2 Del Method Nasal Cannula 08/28/23 07:25 O2 Flow Rate 2 08/28/23 07:25 Oxygen Flow Rate 3 08/25/23 15:59 BMI result Body Mass Index 35.8 Const: General: cooperative, comfortable, alert, awake and in distress mild and respiratory Nutritional Appearance: obese Orientation/consciousness: p atient oriented x3 HEENT: Head: Yes normocephalic and Yes atraumatic Neck: Neck: Yes trachea midline, Yes supple and Yes JVD Resp: Effort & Inspection: normal respiratory effort Auscultation: breath sounds absent bilateral (bases) Cardio: Jugular venous distension: JVD Rhythm: abnormal rhythm irregularly irregular Heart sounds: S1 normal heart sound present, S2 normal heart sound present, no click, no gallops, no murmurs and no rubs GI: Auscultation: normal bowel sounds Skin: General skin exam: no rashes or lesions noted Neuro: General: patient oriented x3 and no focal motor deficits Extrem: General: No clubbing, No cyanosis and Yes edema Objective Labs and Meds 08/26/23 05:29 08/28/23 05:52 Lab results: Laboratory Results - last 24 hr 08/27/23 08/27/23 08/28/23 16:18 19:50 05:52 PT 18.8 H INR 1.5 H Sodium 138 Potassium 4.2 Chloride 102 Carbon Dioxide 27 Anion Gap 13 BUN 29 H Creatinine 1.35 Estim Creat Clear Calc 37.1 Estimated GFR 38 POC Glucose 143 H 177 H Random Glucose 95 Calcium 8.7 Magnesium 2.1 B-Natriuretic Peptide 630 H 08/28/23 08/28/23 07:31 11:07 PT INR Sodium Potassium Chloride Carbon Dioxide Anion Gap BUN Creatinine Estim Creat Clear Calc Estimated GFR POC Glucose 89 86 Random Glucose Calcium Magnesium B-Natriuretic Peptide Assessment and Plan (1) Acute exacerbation of CHF (congestive heart failure): Status: Acute Patient present with symptoms and signs consistent with congestive heart failure. Patient still appears to be fluid overloaded. Continue IV diuresis with strict intake and output chart. Continue metoprolol for neurohormonal modulation given mild LV systolic dysfunction. I will also consider adding valsartan in place of amlodipine for neurohormonal modulation as well as vasodilator. Consider adding Jardiance. Continue monitor renal function as well as BNP tomorrow. Her persistent hypoxemic respiratory failure also probably related to underlying atelectasis. Consider incentive spirometry. If hypoxemia persist despite adequate diuresis consider noncontrast CT and/or pulmonary consultation. Will continue to monitor and follow with you. (2) Atrial fibrillation: Qualifiers: Atrial fibrillation type: longstanding persistent Qualified Code(s): I 48.11 - Longstanding persistent atrial fibrillation Status: Acute Atrial fibrillation with adequate rate control. Continue metoprolol therapy. Currently on full oral anticoagulation warfarin. Maintain target INR between 2 and 3. Will follow with you. Thank you for allowing me to partake in her care Time Spent With Patient Time: Total time managing care of this patient today ____ minutes. Procedures Date of Service Date of Service: 08/28/23
[2023-08-28] MEDS: Furosemide 40 MG/4 ML VIAL IVPUSH ×2 (13:58→17:51)
[2023-08-28 15:28] VITALS: BP 120/62; PULSE 84; RESP 18; TEMP 36.1; O2SAT 98
[2023-08-28 16:05] LABS: Glucose, Whole Blood 142 mg/dL (60-115)
[2023-08-28] MEDS: Warfarin Sodium 2 MG TABLET PO (17:51)
[2023-08-28 19:37] VITALS: BP 149/63; PULSE 62; RESP 18; TEMP 36.8; O2SAT 97
[2023-08-28 20:20] LABS: Glucose, Whole Blood 157 mg/dL (60-115)
[2023-08-28] MEDS: Insulin Lispro 100 UNIT/ML 3 ML VIAL SUBCUT (20:33)
[2023-08-28] MEDS: Insulin Glargine,Hum.rec.anlog 100 UNIT/ML 10 ML VIAL 20 UNIT SUBCUT (20:33)
[2023-08-28] MEDS: Atorvastatin Calcium 10 MG TABLET PO (20:34)
[2023-08-28] MEDS: oxyCODONE HCl Immed Release 5 MG TABLET PO (21:49)
[2023-08-29 03:30] VITALS: BP 116/56; PULSE 77; RESP 18; TEMP 36.2; O2SAT 96
[2023-08-29] MEDS: Levothyroxine Sodium 25 MCG TABLET PO (05:45)
[2023-08-29 06:09] LABS: INTERNATIONAL NORM RATIO 1.8 (0.9-1.1); Prothrombin Time 21.5 SEC (11.1-13.3)
[2023-08-29 06:25] LABS: Anion Gap 14 (12-20); B Type Natriuretic Peptide 451 pg/mL (<100); Blood Urea Nitrogen 28 mg/dL (9-16); Calcium 8.3 mg/dL (8.4-10.2); Carbon Dioxide 25 mmol/L (22-29); Chloride 101 mmol/L (96-108); Creatinine Clr Calc Pharmacy 38.3; Estimated Glomerular Filt Rate 39; Glucose Random 44 mg/dL (60-115); Potassium 3.3 mmol/L (3.3-5.1); Sodium 137 mmol/L (135-145)
[2023-08-29] MEDS: Dextrose 50 % 25 GM/50 ML SYRINGE IVPUSH (06:30)
--- NOTE | 2023-08-29 06:35 | PC.NURSE ---
lab called with critical glucose 44 1 amp D50 given IV will recheck at 0645.
[2023-08-29 06:51] LABS: Glucose, Whole Blood 157 mg/dL (60-115)
[2023-08-29 07:48] LABS: Glucose, Whole Blood 136 mg/dL (60-115)
[2023-08-29 07:51] VITALS: BP 138/70; PULSE 77; RESP 16; TEMP 36.2; O2SAT 96
[2023-08-29] MEDS: Metoprolol Succinate ER 100 MG TAB.ER.24H 200 MG PO (08:07)
[2023-08-29] MEDS: Aspirin Enteric Coated 81 MG TABLET.DR PO (08:07)
[2023-08-29] MEDS: Empagliflozin 10 MG TABLET PO (08:08)
[2023-08-29] MEDS: Valsartan 40 MG TABLET 20 MG PO ×2 (08:08→20:28)
[2023-08-29] MEDS: Multivitamin TABLET 1 TAB PO (08:08)
[2023-08-29] MEDS: 0.9 % Sodium Chloride Flush 3 ML SYRINGE IVFLUSH ×3 (08:10→20:29)
[2023-08-29] MEDS: Furosemide 40 MG/4 ML VIAL IVPUSH ×2 (08:10→17:02)
[2023-08-29] MEDS: Silver Sulfadiazine 1 % Cream 20 GM TUBE 1 APPL TOPICAL (08:11)
[2023-08-29] MEDS: Collagenase Clostridium Hist. 30 GM TUBE 1 APPL TOPICAL (08:13)
--- NOTE | 2023-08-29 09:29 | PM.PNCARD ---
Subjective Subjective Date of Service: 08/29/23 Principal diagnosis: CHF, atrial fibrillation Interval history: patient feeling better says breathing better. Has diuresed overall well over the last few days. No lightheadedness, syncope. Review of Systems Constitutional: Reports no additional constitutional complaints Cardiovascular: Denies chest pain, Denies rapid heart rate, Reports leg edema, Denies Loss of Consciousness and Reports dyspnea on exertion Respiratory: Reports dyspnea on exertion Reports system reviewed and no additional complaints, except as documented Physical Exam Vital Signs: Last Vital Signs Temp 97.2 F 08/29/23 07:51 Pulse 77 08/29/23 07:51 Resp 16 08/29/23 07:51 BP 138/70 08/29/23 07:51 Pulse Ox 96 08/29/23 07:51 O2 Del Method Nasal Cannula 08/29/23 07:51 O2 Flow Rate 3 08/29/23 07:51 Oxygen Flow Rate 3 08/25/23 15:59 BMI result Body Mass Index 35.8 Objective Labs and Meds 08/26/23 05:29 08/29/23 05:11 Lab results: Laboratory Results - last 24 hr 08/28/23 08/28/23 08/28/23 11:07 16:02 20:16 PT INR Sodium Potassium Chloride Carbon Dioxide Anion Gap BUN Creatinine Estim Creat Clear Calc Estimated GFR POC Glucose 86 142 H 157 H Random Glucose Calcium Magnesium B-Natriuretic Peptide 08/29/23 08/29/23 08/29/23 05:11 06:46 07:27 PT 21.5 H INR 1.8 H Sodium 137 Potassium 3.3 D Chloride 101 Carbon Dioxide 25 Anion Gap 14 BUN 28 H Creatinine 1.31 Estim Creat Clear Calc 38.3 Estimated GFR 39 POC Glucose 157 H 136 H Random Glucose 44 L* Calcium 8.3 L Magnesium 2.0 B-Natriuretic Peptide 451 H Progress Note: A&P Assessment and plan (1) Acute exacerbation of CHF (congestive heart failure): Status: Acute Assessment and Plan: Patient admitted with decompensated congestive heart failure with [id number]-hg-[id number] LV systolic dysfunction. Clinically improving. BNP is down trending. Symptomatically improving. Still has hypoxia most likely with concomitant atelectasis. Out of bed to chair and incentive spirometry. Continue IV diuresis for 1 more day. Agree with valsartan as well as Jardiance as neurohormonal modulation. CHF education needs to be provided. Continue trend renal function and BNP tomorrow. If doing well by tomorrow potentially discharge home. Aortic stenosis not significant for need for intervention at this time (2) Atrial fibrillation: Status: Acute Assessment and Plan: atrial fibrillation with rate control on metoprolol. Continue the same. Currently on full oral anticoagulation with warfarin. Maintain INR between 2 and 3. Will follow with you Time Spent With Patient Time: Total time managing care of this patient today ____ minutes. Progress Note: Quality Stroke Does the patient have a stroke diagnosis?: No Procedures Date of Service Date of Service: 08/29/23
--- NOTE | 2023-08-29 09:45 | HO.PM.IMPN ---
Subjective Subjective Date of Service: 08/29/23 Interval History: breathing improved leg swelling resolved no chest pain BG 44 this AM, withou any symptoms Review of Systems Review of Systems: Yes all other systems are reviewed and are negative Physical Exam Vital Signs: Vital Signs: Last Vital Signs Temp 97.2 F 08/29/23 07:51 Pulse 77 08/29/23 07:51 Resp 16 08/29/23 07:51 BP 138/70 08/29/23 07:51 Pulse Ox 96 08/29/23 07:51 O2 Del Method Nasal Cannula 08/29/23 07:51 O2 Flow Rate 3 08/29/23 07:51 Oxygen Flow Rate 3 08/25/23 15:59 BMI result Body Mass Index 35.8 Gen: in no acute distress HEENT: sclera anicteric, moist mucus membranes Neck: supple Lungs: clear to auscultation bilaterally Heart: irregular, no murmurs Abd: soft, non-tender, non-distended Ext: no edema Skin: warm/well-perfused, R heel ulcer Neuro: alert and oriented x3, no focal findings Psych: appropriate affect Objective Data Active Medications Acetaminophen (Acetaminophen 325 Mg Tablet) 650 mg PO Q6H PRN PRN Reason: Pain, Mild (Pain Scale 1-3) Last Admin: 08/26/23 21:25 Dose: 650 mg Documented By: URMILA Aspirin (Aspirin Enteric Coated 81 Mg Tablet.) 81 mg PO DAILY COUNTS INCLUDE 234 BEDS AT THE [facility] Last Admin: 08/29/23 08:07 Dose: 81 mg Documented By: PHILIP Atorvastatin Calcium (Atorvastatin Calcium 10 Mg Tablet) 10 mg PO BEDTIME COUNTS INCLUDE 234 BEDS AT THE [facility] Last Admin: 08/28/23 20:34 Dose: 10 mg Documented By: ISIS Collagenase (Collagenase Clostridium Hist. 30 Gm Tube) 1 appl TOPICAL DAILY SUN; Protocol Last Admin: 08/29/23 08:13 Dose: 1 appl Documented By: PHILIP Dextrose (Dextrose 50 % 25 Gm/50 Ml Syringe) 25 gm IVPUSH Q15M PRN; Protocol PRN Reason: per Hypoglycemia Standing Ord. Last Admin: 08/29/23 06:30 Dose: 25 gm Documented By: ISIS Empagliflozin (Empagliflozin 10 Mg Tablet) 10 mg PO DAILY COUNTS INCLUDE 234 BEDS AT THE [facility] Last Admin: 08/29/23 08:08 Dose: 10 mg Documented By: PHILIP Furosemide (Furosemide 40 Mg/4 Ml Vial) 40 mg IVPUSH BID@0900,1800 COUNTS INCLUDE 234 BEDS AT THE [facility]; Protocol Last Admin: 08/29/23 08:10 Dose: 40 mg Documented By: PHILIP Glucose (Glucose Gel 15 Gm Gel..Gram.) 15 gm PO Q15M PRN; Protocol PRN Reason: per Hypoglycemia Standing Ord. Insulin Glargine (Insulin Glargine,Hum.Rec.Anlog 100 Unit/Ml 10 Ml Vial) 10 unit SUBCUT BEDTIME COUNTS INCLUDE 234 BEDS AT THE [facility] Insulin Human Lispro (Insulin Lispro 100 Unit/Ml 3 Ml Vial) 0 unit SUBCUT QIDACHS COUNTS INCLUDE 234 BEDS AT THE [facility]; Protocol Last Admin: 08/29/23 07:51 Dose: Not Given Documented By: PHILIP Non-Admin Reason: No Insulin Coverage Levothyroxine Sodium (Levothyroxine Sodium 25 Mcg Tablet) 25 mcg PO DAILY@0630 COUNTS INCLUDE 234 BEDS AT THE [facility] Last Admin: 08/29/23 05:45 Dose: 25 mcg Documented By: ISIS Magnesium Hydroxide (Milk Of Magnesia 30 Ml Oral.Susp) 30 ml PO TID PRN PRN Reason: Constipation Last Admin: 08/27/23 11:37 Dose: 30 ml Documented By: KRISTI Melatonin (Melatonin 3 Mg Tablet) 6 mg PO BEDTIME PRN PRN Reason: Insomnia Last Admin: 08/26/23 21:26 Dose: 6 mg Documented By: URMILA Metoprolol Succinate (Metoprolol Succinate Er 100 Mg Tab.Er.24h) 200 mg PO DAILY COUNTS INCLUDE 234 BEDS AT THE [facility]; Protocol Last Admin: 08/29/23 08:07 Dose: 200 mg Documented By: PHILIP Multivitamins/Vitamin C (Multivitamin Tablet) 1 tab PO DAILY COUNTS INCLUDE 234 BEDS AT THE [facility] Last Admin: 08/29/23 08:08 Dose: 1 tab Documented By: PHILIP Ondansetron HCl (Ondansetron Hcl 4 Mg/2 Ml Vial) 4 mg IVPUSH Q8H PRN PRN Reason: Nausea and Vomiting Oxycodone HCl (Oxycodone Hcl Immed Release 5 Mg Tablet) 5 mg PO Q6H PRN PRN Reason: Pain, Severe (Pain Scale 7-10) Last Admin: 08/28/23 21:49 Dose: 5 mg Documented By: ISIS Senna/Docusate Sodium (Sennosides/Docusate Sodium Tablet) 2 tab PO BID COUNTS INCLUDE 234 BEDS AT THE [facility] Last Admin: 08/29/23 08:10 Dose: Not Given Documented By: PHILIP Non-Admin Reason: loose stools Silver Sulfadiazine (Silver Sulfadiazine 1 % Cream 20 Gm Tube) 1 appl TOPICAL DAILY COUNTS INCLUDE 234 BEDS AT THE [facility] Last Admin: 08/29/23 08:11 Dose: 1 appl Documented By: PHILIP Sodium Chloride (0.9 % Sodium Chloride Flush 3 Ml Syringe) 3 ml IVFLUSH QSHIFT COUNTS INCLUDE 234 BEDS AT THE [facility] Last Admin: 08/29/23 08:10 Dose: 3 ml Documented By: PHILIP Valsartan (Valsartan 40 Mg Tablet) 20 mg PO BID COUNTS INCLUDE 234 BEDS AT THE [facility]; Protocol Last Admin: 08/29/23 08:08 Dose: 20 mg Documented By: PHILIP Warfarin Sodium (Warfarin Sodium 1 Mg Tablet) 1 mg PO DAILY@1800 COUNTS INCLUDE 234 BEDS AT THE [facility] Last Admin: 08/28/23 19:14 Dose: Not Given Documented By: ASAD Non-Admin Reason: Physician Approved Labs 08/26/23 05:29 08/29/23 05:11 Labs: Laboratory Results - last 24 hr 08/28/23 08/28/23 08/28/23 11:07 16:02 20:16 PT INR Anion Gap Estim Creat Clear Calc Estimated GFR POC Glucose 86 142 H 157 H Random Glucose Calcium Magnesium B-Natriuretic Peptide 08/29/23 08/29/23 08/29/23 05:11 06:46 07:27 PT 21.5 H INR 1.8 H Anion Gap 14 Estim Creat Clear Calc 38.3 Estimated GFR 39 POC Glucose 157 H 136 H Random Glucose 44 L* Calcium 8.3 L Magnesium 2.0 B-Natriuretic Peptide 451 H Assessment and Plan (1) Acute exacerbation of CHF (congestive heart failure): Status: Acute Assessment and Plan: d5 82yo F with HF with mildly reduced EF, permanent AF on warfarin, CKD3, hypothyroidism, DM2, HTN, neurogenic bladder presenting with dyspnea, admitted for CHF exacerbation acute hypoxic resp failure due to acute/chronic HF with mildly reduced EF - continue IV furosemide, trend BNP, monitor lytes + I/Os [negative 4760 mL thus far] - continue metoprolol succinate - wean O2 as tolerated - TTE 08/26/23: 1. Lrnf-jx-[id number] LV systolic dysfunction with LVEF of 40-45% 2. At least mildly dilated left atrium 3. Kenz-aw-dltxborb aortic stenosis 4. Ghli-ay-tqyzwkaz elevation of right ventricular systolic pressure with significantly elevated right atrial pressures 5. No gross pericardial effusion - Cardiology consulted, following - change amlodipine to valsartan - start empagliflozin permanent AF - continue metoprolol succinate - warfarin, at goal INR 2-3 HTN - metoprolol succinate, valsartan DM2 with AM hypoglycemia - basal-bolus insulin; pt's BG this AM was 44; will decrease Lantus to 10 units [on 25 units at home, 20 units here]. She's been running low at home as well [50s in the morning] so this dose reduction should be continued HLD - statin hypothyroidism - continue LT4 R heel unstageable ulcer - wound care consulted: Etiology: Unstageable Pressure Injury POA Measurements: 3cm x 4cm x 0.2cm Wound Bed: Adherent necrotic brown black soft eschar not stable - with moist yellow slough circumferential Drainage / Odor: Yellow riley mild odorous drainage noted on foam dressing when removed Edges: ? Epibole Stephania wound: ? Intact pink callused tissue No Induration, Mild Fluctuance, Mild Erythema, and No Warmth Pain: Pt denies - reports neuropathy Goals of Treatment: ? Off Load Pressure - Santyl for enzymatic debridement Recommendations: 1. Turn and Reposition every 2 hours and as needed for patient comfort consider use of wedges available in the storeroom. 2. Off Load all bony prominences with use of pillows, wedges and heel boots. 3. Monitor for incontinence and moisture control. 4. Provide adequate and supplemental nutrition. 5. Order or Continue low air loss mattress. 6. Maintain blood glucose levels per Providers orders. 7. Right Heel - Off Load Pressure from bed and chair surface. Cleanse with normal saline, pat dry. ?Apply thin layer of Triad to the immediate stephania wound, apply thick layer of Santyl to entire wound bed, cover with dry gauze then secure with abd pads, gauze wrap and tape, change Daily. VTE ppx - warfarin dispo - STR recommended; pt declines; will go home with VNA In my clinical judgment, the patient requires continued inpatient hospitalization for the following reasons: hypoxia, diuresis Plan Time Spent With Patient Time: Total time managing care of this patient today _45___ minutes. Quality Stroke Does the patient have a stroke diagnosis?: No VTE Prior VTE?: No VTE Risk Level:: Medical - moderate - high VTE Device Contraindication: Treatment Not Indicated VTE Drug Contraindication: N/A - Med Ordered
[2023-08-29 11:36] LABS: Glucose, Whole Blood 219 mg/dL (60-115)
[2023-08-29] MEDS: Insulin Lispro 100 UNIT/ML 3 ML VIAL SUBCUT ×2 (11:40→21:12)
[2023-08-29] MEDS: oxyCODONE HCl Immed Release 5 MG TABLET PO (13:24)
[2023-08-29 15:42] VITALS: BP 105/52; PULSE 81; RESP 18; TEMP 37; O2SAT 93
[2023-08-29 16:14] LABS: Glucose, Whole Blood 144 mg/dL (60-115)
[2023-08-29 20:00] VITALS: BP 101/56; PULSE 85; RESP 18; TEMP 36; O2SAT 98
[2023-08-29] MEDS: Atorvastatin Calcium 10 MG TABLET PO (20:29)
[2023-08-29] MEDS: Sennosides/Docusate Sodium TABLET 2 TAB PO (20:29)
[2023-08-29 20:58] LABS: Glucose, Whole Blood 180 mg/dL (60-115)
[2023-08-29] MEDS: Insulin Glargine,Hum.rec.anlog 100 UNIT/ML 10 ML VIAL 10 UNIT SUBCUT (21:13)
[2023-08-30 02:18] VITALS: BP 128/63; PULSE 73; RESP 17; TEMP 36.4; O2SAT 94
[2023-08-30] MEDS: oxyCODONE HCl Immed Release 5 MG TABLET PO ×2 (02:28→21:29)
[2023-08-30] MEDS: Levothyroxine Sodium 25 MCG TABLET PO (05:29)
[2023-08-30 05:42] LABS: INTERNATIONAL NORM RATIO 1.9 (0.9-1.1); Prothrombin Time 22.7 SEC (11.1-13.3)
[2023-08-30 05:50] LABS: Anion Gap 15 (12-20); Blood Urea Nitrogen 31 mg/dL (9-16); Calcium 8.5 mg/dL (8.4-10.2); Carbon Dioxide 24 mmol/L (22-29); Chloride 102 mmol/L (96-108); Creatinine Clr Calc Pharmacy 33.7; Estimated Glomerular Filt Rate 34; Glucose Random 113 mg/dL (60-115); Potassium 3.4 mmol/L (3.3-5.1); Sodium 138 mmol/L (135-145)
[2023-08-30 05:58] LABS: B Type Natriuretic Peptide 394 pg/mL (<100)
[2023-08-30 07:18] LABS: Glucose, Whole Blood 100 mg/dL (60-115)
[2023-08-30 07:47] VITALS: BP 127/61; PULSE 73; RESP 18; TEMP 36; O2SAT 95
[2023-08-30] MEDS: Sennosides/Docusate Sodium TABLET 2 TAB PO ×2 (08:12→21:28)
[2023-08-30] MEDS: Multivitamin TABLET 1 TAB PO (08:12)
[2023-08-30] MEDS: Metoprolol Succinate ER 100 MG TAB.ER.24H 200 MG PO (08:12)
[2023-08-30] MEDS: Empagliflozin 10 MG TABLET PO (08:12)
[2023-08-30] MEDS: Aspirin Enteric Coated 81 MG TABLET.DR PO (08:12)
[2023-08-30] MEDS: Valsartan 40 MG TABLET 20 MG PO ×2 (08:13→21:28)
[2023-08-30] MEDS: Collagenase Clostridium Hist. 30 GM TUBE 1 APPL TOPICAL (08:16)
[2023-08-30] MEDS: Silver Sulfadiazine 1 % Cream 20 GM TUBE 1 APPL TOPICAL (08:16)
[2023-08-30] MEDS: 0.9 % Sodium Chloride Flush 3 ML SYRINGE IVFLUSH ×3 (08:17→21:28)
--- NOTE | 2023-08-30 09:10 | HO.PM.IMPN ---
Subjective Subjective Date of Service: 08/30/23 Interval History: SCr slightly up still hypoxic dyspnea improved no chest pain Review of Systems Review of Systems: Yes all other systems are reviewed and are negative Physical Exam Vital Signs: Vital Signs: Last Vital Signs Temp 96.8 F 08/30/23 07:47 Pulse 73 08/30/23 07:47 Resp 18 08/30/23 07:47 BP 127/61 08/30/23 07:47 Pulse Ox 95 08/30/23 07:47 O2 Del Method Room Air 08/30/23 07:47 O2 Flow Rate 3 08/29/23 20:00 Oxygen Flow Rate 3 08/25/23 15:59 BMI result Body Mass Index 35.8 Gen: in no acute distress HEENT: sclera anicteric, moist mucus membranes Neck: supple Lungs: clear to auscultation bilaterally Heart: irregular, no murmurs Abd: soft, non-tender, non-distended Ext: no edema Skin: warm/well-perfused, R heel ulcer Neuro: alert and oriented x3, no focal findings Psych: appropriate affect Objective Data Active Medications Acetaminophen (Acetaminophen 325 Mg Tablet) 650 mg PO Q6H PRN PRN Reason: Pain, Mild (Pain Scale 1-3) Last Admin: 08/26/23 21:25 Dose: 650 mg Documented By: URMILA Aspirin (Aspirin Enteric Coated 81 Mg Tablet.) 81 mg PO DAILY [facility] Last Admin: 08/30/23 08:12 Dose: 81 mg Documented By: EDITH Atorvastatin Calcium (Atorvastatin Calcium 10 Mg Tablet) 10 mg PO BEDTIME SUN Last Admin: 08/29/23 20:29 Dose: 10 mg Documented By: ISIS Collagenase (Collagenase Clostridium Hist. 30 Gm Tube) 1 appl TOPICAL DAILY SUN; Protocol Last Admin: 08/30/23 08:16 Dose: 1 appl Documented By: EDITH Dextrose (Dextrose 50 % 25 Gm/50 Ml Syringe) 25 gm IVPUSH Q15M PRN; Protocol PRN Reason: per Hypoglycemia Standing Ord. Last Admin: 08/29/23 06:30 Dose: 25 gm Documented By: ISIS Empagliflozin (Empagliflozin 10 Mg Tablet) 10 mg PO DAILY [facility] Last Admin: 08/30/23 08:12 Dose: 10 mg Documented By: EDITH Glucose (Glucose Gel 15 Gm Gel..Gram.) 15 gm PO Q15M PRN; Protocol PRN Reason: per Hypoglycemia Standing Ord. Insulin Glargine (Insulin Glargine,Hum.Rec.Anlog 100 Unit/Ml 10 Ml Vial) 10 unit SUBCUT BEDTIME [facility] Last Admin: 08/29/23 21:13 Dose: 10 unit Documented By: ISIS Insulin Human Lispro (Insulin Lispro 100 Unit/Ml 3 Ml Vial) 0 unit SUBCUT QIDACHS [facility]; Protocol Last Admin: 08/30/23 07:37 Dose: Not Given Documented By: EDITH Non-Admin Reason: No Insulin Coverage Levothyroxine Sodium (Levothyroxine Sodium 25 Mcg Tablet) 25 mcg PO DAILY@0630 [facility] Last Admin: 08/30/23 05:29 Dose: 25 mcg Documented By: ISIS Magnesium Hydroxide (Milk Of Magnesia 30 Ml Oral.Susp) 30 ml PO TID PRN PRN Reason: Constipation Last Admin: 08/27/23 11:37 Dose: 30 ml Documented By: KRISTI Melatonin (Melatonin 3 Mg Tablet) 6 mg PO BEDTIME PRN PRN Reason: Insomnia Last Admin: 08/26/23 21:26 Dose: 6 mg Documented By: URMILA Metoprolol Succinate (Metoprolol Succinate Er 100 Mg Tab.Er.24h) 200 mg PO DAILY [facility]; Protocol Last Admin: 08/30/23 08:12 Dose: 200 mg Documented By: EDITH Multivitamins/Vitamin C (Multivitamin Tablet) 1 tab PO DAILY [facility] Last Admin: 08/30/23 08:12 Dose: 1 tab Documented By: EDITH Ondansetron HCl (Ondansetron Hcl 4 Mg/2 Ml Vial) 4 mg IVPUSH Q8H PRN PRN Reason: Nausea and Vomiting Oxycodone HCl (Oxycodone Hcl Immed Release 5 Mg Tablet) 5 mg PO Q6H PRN PRN Reason: Pain, Severe (Pain Scale 7-10) Last Admin: 08/30/23 02:28 Dose: 5 mg Documented By: ISIS Senna/Docusate Sodium (Sennosides/Docusate Sodium Tablet) 2 tab PO BID [facility] Last Admin: 08/30/23 08:12 Dose: 2 tab Documented By: EDITH Silver Sulfadiazine (Silver Sulfadiazine 1 % Cream 20 Gm Tube) 1 appl TOPICAL DAILY [facility] Last Admin: 08/30/23 08:16 Dose: 1 appl Documented By: EDITH Sodium Chloride (0.9 % Sodium Chloride Flush 3 Ml Syringe) 3 ml IVFLUSH QSHIFT [facility] Last Admin: 08/30/23 08:17 Dose: 3 ml Documented By: EDITH Valsartan (Valsartan 40 Mg Tablet) 20 mg PO BID [facility]; Protocol Last Admin: 08/30/23 08:13 Dose: 20 mg Documented By: EDITH Warfarin Sodium (Warfarin Sodium 1 Mg Tablet) 1 mg PO DAILY@1800 [facility] Last Admin: 08/28/23 19:14 Dose: Not Given Documented By: ASAD Non-Admin Reason: Physician Approved Labs 08/26/23 05:29 08/30/23 04:57 Labs: Laboratory Results - last 24 hr 08/29/23 08/29/23 08/29/23 11:28 16:04 20:44 PT INR Anion Gap Estim Creat Clear Calc Estimated GFR POC Glucose 219 H 144 H 180 H Random Glucose Calcium Magnesium B-Natriuretic Peptide 08/30/23 08/30/23 04:57 07:11 PT 22.7 H INR 1.9 H Anion Gap 15 Estim Creat Clear Calc 33.7 Estimated GFR 34 POC Glucose 100 Random Glucose 113 Calcium 8.5 Magnesium 2.0 B-Natriuretic Peptide 394 H Assessment and Plan (1) Acute exacerbation of CHF (congestive heart failure): Status: Acute Assessment and Plan: d6 82yo F with HF with mildly reduced EF, permanent AF on warfarin, CKD3, hypothyroidism, DM2, HTN, and neurogenic bladder presenting with dyspnea, admitted for hypoxia due to CHF exacerbation acute hypoxic respiratory failure due to acute/chronic HF with mildly reduced EF - negative 5200 mL this admission; now appears slightly dry; will d/c IV furosemide and recheck creatinine in AM - continue metoprolol succinate - wean off of O2 - TTE 08/26/23: 1. Edtq-xw-qjmrtxyv LV systolic dysfunction with LVEF of 40-45% 2. At least mildly dilated left atrium 3. Ytbn-ma-jshpwrzm aortic stenosis 4. Rfnl-kl-zwlkavzi elevation of right ventricular systolic pressure with significantly elevated right atrial pressures 5. No gross pericardial effusion - Cardiology consulted, following; changed amlodipine to valsartan; started empagliflozin permanent AF - continue metoprolol succinate - warfarin, INR 1.9 today, goal 2-3 HTN - continue metoprolol succinate, valsartan DM2 with AM hypoglycemia - basal-bolus insulin; due to AM hypoglycemia here and at home, decreased Lantus from 25 to 10 units qhs HLD - statin hypothyroidism - continue LT4 R heel unstageable ulcer - wound care consulted and should have outpt follow-up with Wound Care Center: Etiology: Unstageable Pressure Injury POA Measurements: 3cm x 4cm x 0.2cm Wound Bed: Adherent necrotic brown black soft eschar not stable - with moist yellow slough circumferential Drainage / Odor: Yellow riley mild odorous drainage noted on foam dressing when removed Edges: ? Epibole Stephania wound: ? Intact pink callused tissue No Induration, Mild Fluctuance, Mild Erythema, and No Warmth Pain: Pt denies - reports neuropathy Goals of Treatment: ? Off Load Pressure - Santyl for enzymatic debridement Recommendations: 1. Turn and Reposition every 2 hours and as needed for patient comfort consider use of wedges available in the storeroom. 2. Off Load all bony prominences with use of pillows, wedges and heel boots. 3. Monitor for incontinence and moisture control. 4. Provide adequate and supplemental nutrition. 5. Order or Continue low air loss mattress. 6. Maintain blood glucose levels per Providers orders. 7. Right Heel - Off Load Pressure from bed and chair surface. Cleanse with normal saline, pat dry. ?Apply thin layer of Triad to the immediate stephania wound, apply thick layer of Santyl to entire wound bed, cover with dry gauze then secure with abd pads, gauze wrap and tape, change Daily. VTE ppx - warfarin dispo - STR recommended; pt declines; will go home with VNA, possibly tomorrow if weans off O2 and SCr improves In my clinical judgment, the patient requires continued inpatient hospitalization for the following reasons: hypoxia Plan Time Spent With Patient Time: Total time managing care of this patient today __40__ minutes. Quality Stroke Does the patient have a stroke diagnosis?: No VTE Prior VTE?: No VTE Risk Level:: Medical - moderate - high VTE Device Contraindication: Treatment Not Indicated VTE Drug Contraindication: N/A - Med Ordered
[2023-08-30 11:39] LABS: Glucose, Whole Blood 133 mg/dL (60-115)
[2023-08-30 15:40] VITALS: BP 109/54; PULSE 80; RESP 18; TEMP 36; O2SAT 97
[2023-08-30 16:03] LABS: Glucose, Whole Blood 208 mg/dL (60-115)
[2023-08-30] MEDS: Insulin Lispro 100 UNIT/ML 3 ML VIAL SUBCUT (17:15)
[2023-08-30 20:00] VITALS: BP 115/58; PULSE 84; RESP 18; TEMP 36; O2SAT 98
[2023-08-30 20:51] LABS: Glucose, Whole Blood 126 mg/dL (60-115)
[2023-08-30] MEDS: Insulin Glargine,Hum.rec.anlog 100 UNIT/ML 10 ML VIAL 10 UNIT SUBCUT (21:27)
[2023-08-30] MEDS: Atorvastatin Calcium 10 MG TABLET PO (21:30)
[2023-08-31 03:57] VITALS: BP 140/65; PULSE 83; RESP 18; TEMP 36.4; O2SAT 95
[2023-08-31] MEDS: Levothyroxine Sodium 25 MCG TABLET PO (06:29)
[2023-08-31 07:07] LABS: Glucose, Whole Blood 114 mg/dL (60-115)
[2023-08-31 07:07] LABS: INTERNATIONAL NORM RATIO 1.6 (0.9-1.1); Prothrombin Time 19.3 SEC (11.1-13.3)
[2023-08-31 07:15] LABS: Anion Gap 14 (12-20); Blood Urea Nitrogen 28 mg/dL (9-16); Carbon Dioxide 26 mmol/L (22-29); Chloride 101 mmol/L (96-108); Creatinine Clr Calc Pharmacy 32.1; Estimated Glomerular Filt Rate 32; Glucose Random 113 mg/dL (60-115); Potassium 3.6 mmol/L (3.3-5.1); Sodium 137 mmol/L (135-145)
[2023-08-31 07:32] VITALS: BP 124/76; PULSE 94; RESP 16; TEMP 36.4; O2SAT 98
[2023-08-31] MEDS: Sennosides/Docusate Sodium TABLET 2 TAB PO (08:10)
[2023-08-31] MEDS: Valsartan 40 MG TABLET 20 MG PO ×2 (08:10→20:56)
[2023-08-31] MEDS: Metoprolol Succinate ER 100 MG TAB.ER.24H 200 MG PO (08:11)
[2023-08-31] MEDS: Empagliflozin 10 MG TABLET PO (08:11)
[2023-08-31] MEDS: Multivitamin TABLET 1 TAB PO (08:11)
[2023-08-31] MEDS: 0.9 % Sodium Chloride Flush 3 ML SYRINGE IVFLUSH (08:12)
[2023-08-31] MEDS: Aspirin Enteric Coated 81 MG TABLET.DR PO (08:12)
[2023-08-31] MEDS: Collagenase Clostridium Hist. 30 GM TUBE 1 APPL TOPICAL (09:25)
--- NOTE | 2023-08-31 11:07 | P.PNIM_ITS ---
Subjective Subjective Date of Service: 08/31/23 Interval History: Offers no acute complaints, on 2 L of oxygen, not on home O2, denies shortness breath, tolerating diet no nausea, no vomiting, no abdominal pain, no diarrhea noted to have worsening creatinine. Review of Systems All other system reviewed and negative. Physical Exam 2 Vital Signs: Vital Signs: Last Vital Signs Temp 97.6 F 08/31/23 07:32 Pulse 94 08/31/23 07:32 Resp 16 08/31/23 07:32 BP 124/76 08/31/23 07:32 Pulse Ox 98 08/31/23 07:32 O2 Del Method Nasal Cannula 08/31/23 07:32 O2 Flow Rate 1 08/31/23 07:32 Oxygen Flow Rate 3 08/25/23 15:59 BMI result Body Mass Index 35.8 Const: Other: Gen: Awake alert x3, in no acute distress sclera anicteric Neck: supple Lungs: clear to auscultation bilaterally Heart: irregular, no murmurs Abd: soft, non-tender, non-distended, bowel sounds audible Ext: no edema Skin: warm/well-perfused, R heel ulcer, see picture from progress note 08/30 Neuro: alert and oriented x3, no focal findings Psych: appropriate affect Objective Data Active Medications Acetaminophen (Acetaminophen 325 Mg Tablet) 650 mg PO Q6H PRN PRN Reason: Pain, Mild (Pain Scale 1-3) Last Admin: 08/26/23 21:25 Dose: 650 mg Documented By: URMILA Aspirin (Aspirin Enteric Coated 81 Mg Tablet.) 81 mg PO DAILY [facility] Last Admin: 08/31/23 08:12 Dose: 81 mg Documented By: DAVE Atorvastatin Calcium (Atorvastatin Calcium 10 Mg Tablet) 10 mg PO BEDTIME SUN Last Admin: 08/30/23 21:30 Dose: 10 mg Documented By: PEDRITO Collagenase (Collagenase Clostridium Hist. 30 Gm Tube) 1 appl TOPICAL DAILY SUN; Protocol Last Admin: 08/31/23 09:25 Dose: 1 appl Documented By: DAVE Dextrose (Dextrose 50 % 25 Gm/50 Ml Syringe) 25 gm IVPUSH Q15M PRN; Protocol PRN Reason: per Hypoglycemia Standing Ord. Last Admin: 08/29/23 06:30 Dose: 25 gm Documented By: HO.CROP Empagliflozin (Empagliflozin 10 Mg Tablet) 10 mg PO DAILY [facility] Last Admin: 08/31/23 08:11 Dose: 10 mg Documented By: DAVE Glucose (Glucose Gel 15 Gm Gel..Gram.) 15 gm PO Q15M PRN; Protocol PRN Reason: per Hypoglycemia Standing Ord. Insulin Glargine (Insulin Glargine,Hum.Rec.Anlog 100 Unit/Ml 10 Ml Vial) 10 unit SUBCUT BEDTIME [facility] Last Admin: 08/30/23 21:27 Dose: 10 unit Documented By: PEDRITO Insulin Human Lispro (Insulin Lispro 100 Unit/Ml 3 Ml Vial) 0 unit SUBCUT QIDACHS [facility]; Protocol Last Admin: 08/31/23 07:27 Dose: Not Given Documented By: DAVE Non-Admin Reason: No Insulin Coverage Levothyroxine Sodium (Levothyroxine Sodium 25 Mcg Tablet) 25 mcg PO DAILY@0630 [facility] Last Admin: 08/31/23 06:29 Dose: 25 mcg Documented By: PEDRITO Magnesium Hydroxide (Milk Of Magnesia 30 Ml Oral.Susp) 30 ml PO TID PRN PRN Reason: Constipation Last Admin: 08/27/23 11:37 Dose: 30 ml Documented By: KRISTI Melatonin (Melatonin 3 Mg Tablet) 6 mg PO BEDTIME PRN PRN Reason: Insomnia Last Admin: 08/26/23 21:26 Dose: 6 mg Documented By: URMILA Metoprolol Succinate (Metoprolol Succinate Er 100 Mg Tab.Er.24h) 200 mg PO DAILY [facility]; Protocol Last Admin: 08/31/23 08:11 Dose: 200 mg Documented By: DAVE Multivitamins/Vitamin C (Multivitamin Tablet) 1 tab PO DAILY [facility] Last Admin: 08/31/23 08:11 Dose: 1 tab Documented By: DAVE Ondansetron HCl (Ondansetron Hcl 4 Mg/2 Ml Vial) 4 mg IVPUSH Q8H PRN PRN Reason: Nausea and Vomiting Oxycodone HCl (Oxycodone Hcl Immed Release 5 Mg Tablet) 5 mg PO Q6H PRN PRN Reason: Pain, Severe (Pain Scale 7-10) Last Admin: 08/30/23 21:29 Dose: 5 mg Documented By: PEDRITO Senna/Docusate Sodium (Sennosides/Docusate Sodium Tablet) 2 tab PO BID [facility] Last Admin: 08/31/23 08:10 Dose: 2 tab Documented By: DAVE Silver Sulfadiazine (Silver Sulfadiazine 1 % Cream 20 Gm Tube) 1 appl TOPICAL DAILY [facility] Last Admin: 08/31/23 09:29 Dose: Not Given Documented By: DAVE Non-Admin Reason: not used Sodium Chloride (0.9 % Sodium Chloride Flush 3 Ml Syringe) 3 ml IVFLUSH QSHIFT [facility] Last Admin: 08/31/23 08:12 Dose: 3 ml Documented By: DAVE Valsartan (Valsartan 40 Mg Tablet) 20 mg PO BID [facility]; Protocol Last Admin: 08/31/23 08:10 Dose: 20 mg Documented By: DAVE Comments: Warfarin Sodium (Warfarin Sodium 1 Mg Tablet) 1 mg PO DAILY@1800 [facility] Last Admin: 08/28/23 19:14 Dose: Not Given Documented By: ASAD Non-Admin Reason: Physician Approved Labs 08/26/23 05:29 08/31/23 05:48 Labs: Laboratory Results - last 24 hr 08/30/23 08/30/23 08/30/23 11:34 15:59 20:40 Hold Purple Top PT INR Anion Gap Estim Creat Clear Calc Estimated GFR POC Glucose 133 H 208 H 126 H Random Glucose Calcium 08/31/23 08/31/23 08/31/23 05:48 06:47 07:02 Hold Purple Top SEE NOTE PT 19.3 H INR 1.6 H Anion Gap 14 Estim Creat Clear Calc 32.1 Estimated GFR 32 POC Glucose 114 Random Glucose 113 Calcium 9.0 Assessment and Plan (1) Acute exacerbation of CHF (congestive heart failure): Status: Acute Assessment and Plan: 82yo F with HF with mildly reduced EF, permanent AF on warfarin, CKD3, hypothyroidism, DM2, HTN, and neurogenic bladder presenting with dyspnea, admitted for hypoxia due to CHF exacerbation acute hypoxic respiratory failure due to acute/chronic HF with mildly reduced EF - negative 5200 mL this admission,s/p IV furosemide , diuretics discontinued due to worsening renal function, creatinine remains elevated this morning, stable blood pressure - continue metoprolol succinate - wean off of O2 - TTE 08/26/23: 1. Pxzw-dz-mfbsrfci LV systolic dysfunction with LVEF of 40-45% 2. At least mildly dilated left atrium 3. Tewa-xo-eybyrced aortic stenosis 4. Wveb-xn-ldypktfm elevation of right ventricular systolic pressure with significantly elevated right atrial pressures 5. No gross pericardial effusion - Cardiology consulted, following; changed amlodipine to valsartan; started empagliflozin permanent AF - continue metoprolol succinate - warfarin, INR 1.6 today, goal 2-3, baseline dose Coumadin 1 mg daily will give Coumadin 2.5 mg today and follow INR daily HTN - continue metoprolol succinate,and valsartan. DM2 with AM hypoglycemia - basal-bolus insulin, is stable blood sugar this morning,due to AM hypoglycemia here and at home, dose of Lantus decreased from 25 to 10 units qhs HLD - statin hypothyroidism - continue LT4 R heel unstageable ulcer - wound care consulted and should have outpt follow-up with Wound Care Center: Etiology: Unstageable Pressure Injury POA Measurements: 3cm x 4cm x 0.2cm Wound Bed: Adherent necrotic brown black soft eschar not stable - with moist yellow slough circumferential Drainage / Odor: Yellow riley mild odorous drainage noted on foam dressing when removed Edges: ? Epibole Stephania wound: ? Intact pink callused tissue No Induration, Mild Fluctuance, Mild Erythema, and No Warmth Pain: Pt denies - reports neuropathy Goals of Treatment: ? Off Load Pressure - Santyl for enzymatic debridement Recommendations: 1. Turn and Reposition every 2 hours and as needed for patient comfort consider use of wedges available in the storeroom. 2. Off Load all bony prominences with use of pillows, wedges and heel boots. 3. Monitor for incontinence and moisture control. 4. Provide adequate and supplemental nutrition. 5. Order or Continue low air loss mattress. 6. Maintain blood glucose levels per Providers orders. 7. Right Heel - Off Load Pressure from bed and chair surface. Cleanse with normal saline, pat dry. ?Apply thin layer of Triad to the immediate stephania wound, apply thick layer of Santyl to entire wound bed, cover with dry gauze then secure with abd pads, gauze wrap and tape, change Daily. VTE ppx - warfarin dispo - STR recommended; pt declines; will go home with VNA, possibly tomorrow if weans off O2 and SCr improves In my clinical judgment, the patient requires continued inpatient hospitalization for the following reasons: hypoxia and elevated creatinine Plan Time Spent With Patient Time: Total time managing care of this patient today ____ minutes. Quality Stroke Does the patient have a stroke diagnosis?: No VTE Prior VTE?: No VTE Risk Level:: Medical - moderate - high VTE Device Contraindication: Treatment Not Indicated VTE Drug Contraindication: N/A - Med Ordered
[2023-08-31 11:08] LABS: Glucose, Whole Blood 193 mg/dL (60-115)
[2023-08-31] MEDS: Insulin Lispro 100 UNIT/ML 3 ML VIAL SUBCUT ×2 (11:22→20:58)
--- NOTE | 2023-08-31 15:15 | MHC.CM.PN ---
pt not ready for c today pt wants to go home not str pt rrecoemnds home ptpt active with [facility];brielle solorzano
[2023-08-31] MEDS: Acetaminophen 325 MG TABLET 650 MG PO (15:18)
[2023-08-31] MEDS: oxyCODONE HCl Immed Release 5 MG TABLET PO ×2 (15:18→20:58)
[2023-08-31 15:38] VITALS: BP 129/70; PULSE 97; RESP 18; TEMP 36.6; O2SAT 93
[2023-08-31 16:12] LABS: Glucose, Whole Blood 148 mg/dL (60-115)
[2023-08-31] MEDS: Warfarin Sodium 2.5 MG TABLET PO (18:00)
[2023-08-31 20:00] VITALS: BP 125/60; PULSE 87; RESP 18; TEMP 36.4; O2SAT 93
[2023-08-31 20:34] LABS: Glucose, Whole Blood 189 mg/dL (60-115)
[2023-08-31] MEDS: Atorvastatin Calcium 10 MG TABLET PO (20:56)
[2023-08-31] MEDS: Insulin Glargine,Hum.rec.anlog 100 UNIT/ML 10 ML VIAL 10 UNIT SUBCUT (20:58)
[2023-09-01 03:50] VITALS: BP 135/72; PULSE 77; RESP 16; TEMP 37; O2SAT 96
[2023-09-01] MEDS: Levothyroxine Sodium 25 MCG TABLET PO (04:18)
[2023-09-01] MEDS: oxyCODONE HCl Immed Release 5 MG TABLET PO ×2 (04:18→09:56)
[2023-09-01 06:23] LABS: INTERNATIONAL NORM RATIO 1.5 (0.9-1.1); Prothrombin Time 18.7 SEC (11.1-13.3)
[2023-09-01 06:35] LABS: Anion Gap 14 (12-20); Blood Urea Nitrogen 20 mg/dL (9-16); Calcium 9.2 mg/dL (8.4-10.2); Carbon Dioxide 24 mmol/L (22-29); Chloride 107 mmol/L (96-108); Creatinine Clr Calc Pharmacy 41.4; Estimated Glomerular Filt Rate 43; Glucose Random 89 mg/dL (60-115); Potassium 3.2 mmol/L (3.3-5.1); Sodium 142 mmol/L (135-145)
[2023-09-01 07:14] VITALS: BP 154/77; PULSE 85; RESP 17; TEMP 36.7; O2SAT 95
[2023-09-01 07:25] LABS: Glucose, Whole Blood 84 mg/dL (60-115)
[2023-09-01] MEDS: Valsartan 40 MG TABLET 20 MG PO ×2 (08:27→20:24)
[2023-09-01] MEDS: Aspirin Enteric Coated 81 MG TABLET.DR PO (08:27)
[2023-09-01] MEDS: Empagliflozin 10 MG TABLET PO (08:28)
[2023-09-01] MEDS: Metoprolol Succinate ER 100 MG TAB.ER.24H 200 MG PO (08:28)
[2023-09-01] MEDS: Collagenase Clostridium Hist. 30 GM TUBE 1 APPL TOPICAL (08:29)
[2023-09-01] MEDS: Multivitamin TABLET 1 TAB PO (08:29)
[2023-09-01] MEDS: 0.9 % Sodium Chloride Flush 3 ML SYRINGE IVFLUSH (08:30)
[2023-09-01] MEDS: Acetaminophen 325 MG TABLET 650 MG PO (09:30)
[2023-09-01] MEDS: Nystatin Powder 15 GM BOTTLE 1 APPL TOPICAL ×2 (09:51→20:26)
[2023-09-01 10:27] VITALS: BP 154/77; PULSE 85; O2SAT 95
[2023-09-01 11:16] LABS: Glucose, Whole Blood 108 mg/dL (60-115)
--- NOTE | 2023-09-01 12:33 | HO.WOUND ---
Wound Consult: Initial 82yr old female admitted to [facility] on?08/25/23 19:34 - See progress notes and H&P for detailed history. Right Heel Initial Assessment Rihgt Heel Todays assessment - of note eschar was dry due to no dressing in place at the time of my arrival to bedside. Right Heel Etiology: Unstageable Pressure Injury POA Measurements: 3cm x 5cm x 0.5cm Wound Bed: Adherent necrotic brown black soft dry eschar not stable - with improving moist yellow slough circumferential Drainage / Odor: Yellow riley mild odorous drainage noted on dressing when removed Edges: ? Epibole Maia wound: ? Intact pink callused tissue No Induration, Mild Fluctuance at eschar, Mild Erythema, and No Warmth Pain: Pt denies - reports neuropathy Goals of Treatment: ? Off Load Pressure - Continue Santyl for enzymatic debridement Pt is planning for discharge tomorrow 09/02/23 to home with VNA services - topical recommendations wound be to continue to with Santyl for enzymatic debridement and to continue followup with Outpt [facility]ound [facility]. Off loading boot applied to pt. Off loads heel while in recliner chair. Pt was educate on importance of off loading pressure. She reports understanding but reports she does not like the way the boot looks we discussed the importance and she reported she was given an off loading boot for ambulation and advised she should continue to use. She was instructed to not attempt ambulation while in the Air filled off loading boot at this is unstable and will cause her to slip and potentially fall - she reports understanding between the two boots. Recommendations: 1. Turn and Reposition every 2 hours and as needed for patient comfort consider use of wedges available in the storeroom. 2. Off Load all bony prominences with use of pillows, wedges and heel boots. 3. Monitor for incontinence and moisture control. 4. Provide adequate and supplemental nutrition. 5. Order or Continue low air loss mattress. 6. Maintain blood glucose levels per Providers orders. 7. Right Heel - Off Load Pressure from bed and chair surface. Air filled off loading boot applied to pt. Cleanse with normal saline, pat dry. ?Apply thin layer of Triad to the immediate maia wound, apply thick layer of Santyl to entire wound bed, cover with dry gauze then secure with abd pads, gauze wrap and tape, change Daily. Re-consult wound care Nurse for wound deterioration or wound changes.
--- NOTE | 2023-09-01 14:19 | HO.PM.IMPN ---
Subjective Subjective Date of Service: 09/01/23 Interval History: Concern about weight-bearing status due to right heel ulcer, feels she is not ready for discharge today, wishes to be discharged home with services refusing rehab lives at home with son and daughter complaining of rash both groin, denies urinary symptoms, no nausea no vomiting no abdominal pain , has history of incontinence of stool. Complaining of heel pain. Review of Systems All other system reviewed and negative. Physical Exam Vital Signs: Vital Signs: Last Vital Signs Temp 98.0 F 09/01/23 07:14 Pulse 85 09/01/23 10:27 Resp 17 09/01/23 07:14 BP 154/77 H 09/01/23 10:27 Pulse Ox 95 09/01/23 10:27 O2 Del Method Room Air 09/01/23 07:14 O2 Flow Rate 1 08/31/23 07:32 Oxygen Flow Rate 3 08/25/23 15:59 BMI result Body Mass Index 35.8 Const: Other: Gen: Awake alert x3, in no acute distress sclera anicteric Neck: supple Lungs: clear to auscultation bilaterally Heart: irregular, no murmurs Abd: soft, non-tender, non-distended, bowel sounds audible Ext: no edema Skin: warm/well-perfused, R heel ulcer, see picture from progress note 08/30 Neuro: alert and oriented x3, no focal findings Psych: appropriate affect Objective Data Active Medications Acetaminophen (Acetaminophen 325 Mg Tablet) 650 mg PO Q6H PRN PRN Reason: Pain, Mild (Pain Scale 1-3) Last Admin: 09/01/23 09:30 Dose: 650 mg Documented By: DAVE Aspirin (Aspirin Enteric Coated 81 Mg Tablet.) 81 mg PO DAILY [facility] Last Admin: 09/01/23 08:27 Dose: 81 mg Documented By: DAVE Atorvastatin Calcium (Atorvastatin Calcium 10 Mg Tablet) 10 mg PO BEDTIME [facility] Last Admin: 08/31/23 20:56 Dose: 10 mg Documented By: XAVIER Collagenase (Collagenase Clostridium Hist. 30 Gm Tube) 1 appl TOPICAL DAILY SUN; Protocol Last Admin: 09/01/23 08:29 Dose: 1 appl Documented By: DAVE Dextrose (Dextrose 50 % 25 Gm/50 Ml Syringe) 25 gm IVPUSH Q15M PRN; Protocol PRN Reason: per Hypoglycemia Standing Ord. Last Admin: 08/29/23 06:30 Dose: 25 gm Documented By: ISIS Empagliflozin (Empagliflozin 10 Mg Tablet) 10 mg PO DAILY [facility] Last Admin: 09/01/23 08:28 Dose: 10 mg Documented By: DAVE Glucose (Glucose Gel 15 Gm Gel..Gram.) 15 gm PO Q15M PRN; Protocol PRN Reason: per Hypoglycemia Standing Ord. Insulin Glargine (Insulin Glargine,Hum.Rec.Anlog 100 Unit/Ml 10 Ml Vial) 10 unit SUBCUT BEDTIME [facility] Last Admin: 08/31/23 20:58 Dose: 10 unit Documented By: XAVIER Insulin Human Lispro (Insulin Lispro 100 Unit/Ml 3 Ml Vial) 0 unit SUBCUT QIDACHS [facility]; Protocol Last Admin: 09/01/23 11:33 Dose: Not Given Documented By: DAVE Non-Admin Reason: No Insulin Coverage Levothyroxine Sodium (Levothyroxine Sodium 25 Mcg Tablet) 25 mcg PO DAILY@0630 [facility] Last Admin: 09/01/23 04:18 Dose: 25 mcg Documented By: ANTOIC Magnesium Hydroxide (Milk Of Magnesia 30 Ml Oral.Susp) 30 ml PO TID PRN PRN Reason: Constipation Last Admin: 08/27/23 11:37 Dose: 30 ml Documented By: ALEXISUSIA Melatonin (Melatonin 3 Mg Tablet) 6 mg PO BEDTIME PRN PRN Reason: Insomnia Last Admin: 08/26/23 21:26 Dose: 6 mg Documented By: OZORALSherita Metoprolol Succinate (Metoprolol Succinate Er 100 Mg Tab.Er.24h) 200 mg PO DAILY [facility]; Protocol Last Admin: 09/01/23 08:28 Dose: 200 mg Documented By: DAVE Multivitamins/Vitamin C (Multivitamin Tablet) 1 tab PO DAILY [facility] Last Admin: 09/01/23 08:29 Dose: 1 tab Documented By: DAVE Nystatin (Nystatin Powder 15 Gm Bottle) 1 appl TOPICAL BID [facility]; Protocol Last Admin: 09/01/23 09:51 Dose: 1 appl Documented By: DAVE Ondansetron HCl (Ondansetron Hcl 4 Mg/2 Ml Vial) 4 mg IVPUSH Q8H PRN PRN Reason: Nausea and Vomiting Oxycodone HCl (Oxycodone Hcl Immed Release 5 Mg Tablet) 5 mg PO Q6H PRN PRN Reason: Pain, Severe (Pain Scale 7-10) Last Admin: 09/01/23 09:56 Dose: 5 mg Documented By: DAVE Senna/Docusate Sodium (Sennosides/Docusate Sodium Tablet) 2 tab PO BID [facility] Last Admin: 09/01/23 08:31 Dose: Not Given Documented By: DAVE Non-Admin Reason: Patient Refused Silver Sulfadiazine (Silver Sulfadiazine 1 % Cream 20 Gm Tube) 1 appl TOPICAL DAILY [facility] Last Admin: 09/01/23 08:29 Dose: Not Given Documented By: DAVE Non-Admin Reason: n/a Sodium Chloride (0.9 % Sodium Chloride Flush 3 Ml Syringe) 3 ml IVFLUSH QSHIFT [facility] Last Admin: 09/01/23 08:30 Dose: 3 ml Documented By: DAVE Valsartan (Valsartan 40 Mg Tablet) 20 mg PO BID [facility]; Protocol Last Admin: 09/01/23 08:27 Dose: 20 mg Documented By: DAVE Warfarin Sodium (Warfarin Sodium 2.5 Mg Tablet) 2.5 mg PO DAILY@1800 ONE Stop: 09/01/23 18:01 Labs 08/26/23 05:29 09/01/23 05:43 Labs: Laboratory Results - last 24 hr 08/31/23 08/31/23 09/01/23 16:08 20:30 05:43 Hold Purple Top PT 18.7 H INR 1.5 H Anion Gap 14 Estim Creat Clear Calc 41.4 Estimated GFR 43 POC Glucose 148 H 189 H Random Glucose 89 Calcium 9.2 09/01/23 09/01/23 09/01/23 06:08 07:21 11:11 Hold Purple Top SEE NOTE PT INR Anion Gap Estim Creat Clear Calc Estimated GFR POC Glucose 84 108 Random Glucose Calcium Assessment and Plan (1) Acute exacerbation of CHF (congestive heart failure): Status: Acute Assessment and Plan: 82yo F with HF with mildly reduced EF, permanent AF on warfarin, CKD3, hypothyroidism, DM2, HTN, and neurogenic bladder presenting with dyspnea, admitted for hypoxia due to CHF exacerbation acute hypoxic respiratory failure due to acute/chronic HF with mildly reduced EF - negative 5200 mL this admission,s/p IV furosemide , diuretics discontinued due to worsening renal function, today creatinine normalized creatinine remains elevated this morning, stable blood pressure - continue metoprolol succinate - wean off of O2 - TTE 08/26/23: 1. Ztqs-cl-ryjbivdo LV systolic dysfunction with LVEF of 40-45% 2. At least mildly dilated left atrium 3. Sddw-dl-npkucjbi aortic stenosis 4. Ucfv-dw-voklfmbw elevation of right ventricular systolic pressure with significantly elevated right atrial pressures 5. No gross pericardial effusion - Cardiology consulted, following; changed amlodipine to valsartan; started empagliflozin Mild acute hypokalemia likely due to diuretics will replete and follow labs permanent AF - continue metoprolol succinate - warfarin, INR 1.5 today, goal 2-3, baseline dose Coumadin 1 mg daily will give Coumadin 2.5 mg today and follow INR daily HTN - continue metoprolol succinate,and valsartan. DM2 with AM hypoglycemia - basal-bolus insulin, stable blood sugar this morning,due to AM hypoglycemia here and at home, dose of Lantus decreased from 25 to 10 units qhs HLD - statin hypothyroidism - continue LT4 R heel unstageable ulcer - wound care consulted and should have outpt follow-up with Wound Care Center: Etiology: Unstageable Pressure Injury POA Measurements: 3cm x 4cm x 0.2cm Wound Bed: Adherent necrotic brown black soft eschar not stable - with moist yellow slough circumferential Drainage / Odor: Yellow riley mild odorous drainage noted on foam dressing when removed Edges: ? Epibole Stephania wound: ? Intact pink callused tissue No Induration, Mild Fluctuance, Mild Erythema, and No Warmth Pain: Pt denies - reports neuropathy Goals of Treatment: ? Off Load Pressure - Santyl for enzymatic debridement Recommendations: 1. Turn and Reposition every 2 hours and as needed for patient comfort consider use of wedges available in the storeroom. 2. Off Load all bony prominences with use of pillows, wedges and heel boots. 3. Monitor for incontinence and moisture control. 4. Provide adequate and supplemental nutrition. 5. Order or Continue low air loss mattress. 6. Maintain blood glucose levels per Providers orders. 7. Right Heel - Off Load Pressure from bed and chair surface. Cleanse with normal saline, pat dry. ?Apply thin layer of Triad to the immediate stephania wound, apply thick layer of Santyl to entire wound bed, cover with dry gauze then secure with abd pads, gauze wrap and tape, change Daily. VTE ppx - warfarin dispo - STR recommended; pt declines; will go home with VNA, possibly tomorrow. In my clinical judgment, the patient requires continued inpatient hospitalization for the following reasons: Monitoring of renal function and electrolytes Plan Time Spent With Patient Time: Total time managing care of this patient today ____ minutes. Quality Stroke Does the patient have a stroke diagnosis?: No VTE Prior VTE?: No VTE Risk Level:: Medical - moderate - high VTE Device Contraindication: Treatment Not Indicated VTE Drug Contraindication: N/A - Med Ordered
[2023-09-01] MEDS: Potassium Chloride ER 20 MEQ TAB.ER.PRT PO (14:40)
[2023-09-01 15:29] VITALS: BP 136/64; PULSE 93; RESP 15; TEMP 36.8; O2SAT 95
--- NOTE | 2023-09-01 15:39 | PC.NURSE ---
Found IV out on bed linen,patieent unsure how it came out,Dr. Aaron notified,ok to keep it out for now
[2023-09-01 15:55] LABS: Glucose, Whole Blood 135 mg/dL (60-115)
[2023-09-01] MEDS: Warfarin Sodium 2.5 MG TABLET PO (18:07)
[2023-09-01 19:34] VITALS: BP 150/76; PULSE 93; RESP 16; TEMP 36.2; O2SAT 97
[2023-09-01 20:09] LABS: Glucose, Whole Blood 238 mg/dL (60-115)
[2023-09-01] MEDS: Insulin Glargine,Hum.rec.anlog 100 UNIT/ML 10 ML VIAL 10 UNIT SUBCUT (20:23)
[2023-09-01] MEDS: Insulin Lispro 100 UNIT/ML 3 ML VIAL SUBCUT (20:23)
[2023-09-01] MEDS: Atorvastatin Calcium 10 MG TABLET PO (20:25)
[2023-09-01] MEDS: Sennosides/Docusate Sodium TABLET 2 TAB PO (20:25)
[2023-09-02] MEDS: 0.9 % Sodium Chloride Flush 3 ML SYRINGE IVFLUSH ×2 (02:17→09:11)
[2023-09-02 04:00] VITALS: BP 140/72; PULSE 86; RESP 14; TEMP 36.2; O2SAT 96
[2023-09-02 06:28] LABS: INTERNATIONAL NORM RATIO 1.8 (0.9-1.1); Prothrombin Time 22.3 SEC (11.1-13.3)
[2023-09-02] MEDS: Levothyroxine Sodium 25 MCG TABLET PO (06:30)
[2023-09-02 06:53] LABS: Anion Gap 13 (12-20); Blood Urea Nitrogen 15 mg/dL (9-16); Calcium 9.1 mg/dL (8.4-10.2); Carbon Dioxide 23 mmol/L (22-29); Chloride 108 mmol/L (96-108); Creatinine Clr Calc Pharmacy 43.9; Estimated Glomerular Filt Rate 46; Glucose Random 126 mg/dL (60-115); Potassium 3.9 mmol/L (3.3-5.1); Sodium 140 mmol/L (135-145)
[2023-09-02 07:23] VITALS: BP 139/69; PULSE 84; RESP 17; TEMP 37.1; O2SAT 95
[2023-09-02 07:51] LABS: Glucose, Whole Blood 115 mg/dL (60-115)
--- NOTE | 2023-09-02 08:05 | PM.DS ---
DS: Providers Provider Date of Service: 09/02/23 Date of admission: 08/25/23 19:34 Primary care physician: Nano Delaney MD Consults: 08/26/23 11:12 Consult to Wound Care Routine Reason for consultation: right heel ulcer Has provider been notified: Yes 08/28/23 08:55 Consult to Cardiology Routine Consulting Provider: [facility] Reason for consultation: HF mildly reduced EF, permanent AF DS: Diagnosis Discharge Diagnosis (1) Acute exacerbation of CHF (congestive heart failure): Status: Acute DS: Summary Hospital Course Hospital Course: History of presenting illness: Date of Service: 08/25/23 Chief Complaint: Dyspnea This is a 82-year-old female with pertinent history of congestive heart failure with preserved ejection fraction, permanent atrial fibrillation on Coumadin, CKD stage 3, hypothyroidism, insulin-dependent diabetes mellitus, essential hypertension, neurogenic bladder who presents to the emergency department for evaluation of dyspnea. Patient states her symptoms started 3 days prior to presentation. She has been having ongoing dyspnea which has been progressive and worse with ambulation. Does not use oxygen at home. Also complains of associated orthopnea and PND. States she takes her home Lasix and is compliant with it. No fever, chills, palpitations. No chest discomfort, abdominal pain, changes in urinary or bowel habits. In the emergency department, patient requiring supplemental oxygen and was initiated on IV diuresis. Hospital course: 82yo F with HF with mildly reduced EF, permanent AF on warfarin, CKD3, hypothyroidism, DM2, HTN, and neurogenic bladder presenting with dyspnea, admitted for hypoxia due to CHF exacerbation acute hypoxic respiratory failure due to acute/chronic HF with mildly reduced EF patient treated with IV Lasix with good response, subsequently diuretics discontinued due to rising creatinine, now creatinine back to baseline patient shortness of breath and hypoxia resolved, blood pressure is stable, patient evaluated by Cardiology they recommend to change amlodipine to valsartan and started empagliflozin, patient noted to have mild hypokalemia likely due to diuretics, repleted and repeat labs normalized, will discharge her on Lasix 40 mg daily and recommend to continue beta-blockers, recommend close outpatient follow-up with Cardiology. echocardiogram 08/26/23 showed: 1. [id number] LV systolic dysfunction with LVEF of 40-45% 2. At least mildly dilated left atrium 3. Ajyf-fm-lofpunkc aortic stenosis 4. Hgdj-mr-vbpvukxe elevation of right ventricular systolic pressure with significantly elevated right atrial pressures 5. No gross pericardial effusion permanent AF - continue metoprolol succinate, continue Coumadin INR 1.8, baseline dose of Coumadin 1 mg will increase dose to 2 mg INR goal 2-3, patient checks INR daily recommend to check INR Q weekly once within therapeutic range and consider switching to Eliquis. HTN good blood pressure control continue metoprolol succinate,and valsartan. DM2 with AM hypoglycemia therefore dose of Lantus decreased from 25-10 units at bedtime HLD continue statin hypothyroidism continue levothyroxine R heel unstageable pressure ulcer present on admission wound care consulted and should have outpt follow-up with Wound Care Center: Measurements: 3cm x 4cm x 0.2cm Wound Bed: Adherent necrotic brown black soft eschar not stable - with moist yellow slough circumferential Drainage / Odor: Yellow riley mild odorous drainage noted on foam dressing when removed Edges: ? Epibole Stephania wound: ? Intact pink callused tissue No Induration, Mild Fluctuance, Mild Erythema, and No Warmth Pain: Pt denies - reports neuropathy Goals of Treatment: ? Off Load Pressure - Santyl for enzymatic debridement Recommendations: 1. Turn and Reposition every 2 hours and as needed for patient comfort consider use of wedges available in the storeroom. 2. Off Load all bony prominences with use of pillows, wedges and heel boots. 3. Monitor for incontinence and moisture control. 4. Provide adequate and supplemental nutrition. 5. Order or Continue low air loss mattress. 6. Maintain blood glucose levels per Providers orders. 7. Right Heel - Off Load Pressure from bed and chair surface. Cleanse with normal saline, pat dry. ?Apply thin layer of Triad to the immediate stephania wound, apply thick layer of Santyl to entire wound bed, cover with dry gauze then secure with abd pads, gauze wrap and tape, change Daily. Recommend to take oxycodone 5 mg q.6 hours as needed for pain total 16. Dispensed. Time Spent with Patient Time attestation: Total time managing care of this patient today ____ minutes. Discharge coordination time: Greater than 30 minutes Quality: Safe Use of Opioids Does Pt have an Active Cancer Diagnosis on the Problem List?: No Quality: Stroke Does the patient have a stroke diagnosis?: No Physical Exam Vital Signs: Vital Signs: Last Vital Signs Temp 98.7 F 09/02/23 07:23 Pulse 84 09/02/23 07:23 Resp 17 09/02/23 07:23 BP 139/69 09/02/23 07:23 Pulse Ox 95 09/02/23 07:23 O2 Del Method Room Air 09/02/23 07:23 O2 Flow Rate 1 08/31/23 07:32 Oxygen Flow Rate 3 08/25/23 15:59 BMI result Body Mass Index 35.8 Const: Other: Gen: Awake alert x3, in no acute distress. sclera anicteric Neck: supple Lungs: clear to auscultation bilaterally Heart: irregular, no murmurs Abd: soft, non-tender, non-distended, bowel sounds audible Ext: no edema Suprapubic catheter. Skin: warm/well-perfused, bilateral groin rash ,R heel ulcer Neuro: alert and oriented x3, no focal findings. Psych: appropriate affect DS: Data Data Completed and Pending Completed studies during hospitalization [Text1]: Procedures Extirpation of Matter from Bladder, Via Natural or Artificial Opening Endoscopic (06/27/22) Fluoroscopy of Kidneys, Ureters and Bladder (06/27/22) Replacement of Right Hip Joint with Synthetic Substitute, Uncemented, Open Approach (07/07/23) Labs on day of discharge: Laboratory Results - last 24 hr 09/01/23 09/01/23 09/01/23 11:11 15:52 20:03 Hold Purple Top PT INR Sodium Potassium Chloride Carbon Dioxide Anion Gap BUN Creatinine Estim Creat Clear Calc Estimated GFR POC Glucose 108 135 H 238 H Random Glucose Calcium 09/02/23 09/02/23 09/02/23 06:03 06:12 07:28 Hold Purple Top SEE NOTE PT 22.3 H INR 1.8 H Sodium 140 Potassium 3.9 D Chloride 108 Carbon Dioxide 23 Anion Gap 13 BUN 15 Creatinine 1.14 Estim Creat Clear Calc 43.9 Estimated GFR 46 POC Glucose 115 Random Glucose 126 H Calcium 9.1 Discharge Plan Discharge Anticipated Discharge Date/Time: 09/02/23 10:35 Patient Disposition: Home Health Service Discharge Diagnosis: Acute hypoxic respiratory failure acute on chronic heart failure with reduced EF Referrals: Nano Delaney MD [Primary Care Provider] - 1 Week Discharge Medications: New Jardiance 10 mg Tablet 10 mg PO DAILY Qty: 30 0RF nystatin 100,000 unit/gram Powder 1 appl topical BID Qty: 30 0RF Protocol: Apply to: Apply to: groin valsartan 40 mg Tablet 20 mg PO BID Qty: 60 0RF Protocol: Hold for SBP< HOLD for SBP < : 90 furosemide [Lasix] 40 mg tablet 40 mg PO DAILY Qty: 30 0RF warfarin 2 mg tablet 2 mg PO DAILY Qty: 30 0RF oxycodone 5 mg Tablet 5 mg PO Q6H PRN (Reason: Pain, Severe (Pain Scale 7-10)) Qty: 16 0RF Rx Instructions: Partial Fill upon patient request. Continued atorvastatin 10 mg tablet 10 mg PO BEDTIME Qty: 90 3RF melatonin 5 mg tablet 10 mg PO BEDTIME PRN (Reason: Sleep) metoprolol succinate 200 mg tablet extended release 24 hr 200 mg PO DAILY Qty: 90 3RF PreserVision AREDS 2,148 mcg-113 mg-45 mg-17.4mg Tablet 1 tab PO BIDWM Rx Instructions: administer with AM and PM meals insulin lispro [Humalog KwikPen Insulin] 100 unit/mL Insulin Pen 1 sliding scale dose SUBCUT QIDACHS Protocol: Insulin Correction Scale Less than or equal to 110 ---- Give (units): 0 111 to 150 Give (units): 0 151 to 200 Give (units): 2 201 to 250 Give (units): 4 251 to 300 Give (units): 6 301 to 350 Give (units): 8 Greater than 350 Give (units): 10 Call MD if Blood Glucose > : 350 silver sulfadiazine [SSD] 1 % cream 1 appl topical DAILY Rx Instructions: apply a 1.5 mm thickness levothyroxine 25 mcg tablet 25 mcg PO DAILY aspirin 81 mg tablet,delayed release (DR/EC) 81 mg PO DAILY (DME) pen needle, diabetic [BD Cathy 2nd Gen Pen Needle] 32 gauge x 5/32 needle See Rx Instructions subcut DAILY Qty: 50 Rx Instructions: As directed (DME) lancets [FreeStyle Lancets] 28 gauge misc See Rx Instructions .ROUTE BID Qty: 100 Rx Instructions: As directed multivitamin [One Daily Multivitamin] Tablet 1 tab PO DAILY Changed insulin glargine [Lantus U-100 Insulin] 100 unit/mL solution 10 unit subcut BEDTIME Qty: 10 0RF Discontinued furosemide 20 mg tablet 20 mg PO DAILY Qty: 90 2RF cephalexin 500 mg capsule 500 mg PO QID 7 Days Qty: 28 0RF amlodipine 5 mg tablet 10 mg PO DAILY warfarin [] 1 mg tablet 1 mg PO DAILY Protocol: Dose Management Condition: Thursday (Week One) Dose/Route: 0.5 mg Instruction: 0.5 x 1 mg tablets Condition: Thursday Dose/Route: 1 mg Instruction: 1 x 1 mg tablet Condition: Thursday Dose/Route: 1 mg Instruction: 1 x 1 mg tablet Condition: Thursday Dose/Route: 1 mg Instruction: 1 x 1 mg tablet Condition: Dose/Route: 1 mg Instruction: 1 x 1 mg tablet Condition: Thursday Dose/Route: 1 mg Instruction: 1 x 1 mg tablet Condition: Thursday Dose/Route: 1 mg Instruction: 1 x 1 mg tablet Condition: Thursday (Week Two) Dose/Route: 0.5 mg Instruction: 0.5 x 1 mg tablets Condition: Thursday Dose/Route: 1 mg Instruction: 1 x 1 mg tablet Condition: Thursday Dose/Route: 1 mg Instruction: 1 x 1 mg tablet Condition: Thursday Dose/Route: 1 mg Instruction: 1 x 1 mg tablet Condition: Dose/Route: 1 mg Instruction: 1 x 1 mg tablet Condition: Thursday Dose/Route: 1 mg Instruction: 1 x 1 mg tablet Condition: Thursday Dose/Route: 1 mg Instruction: 1 x 1 mg tablet Protocol Text: Adjustment Start Date: Thursday08/24/23 INR Value: 1.9 INR Date: 08/24/23 Recheck Date: 08/31/23 Additional Instructions: AVOID GREENS TODAY ANT TOMORROW THEN RESUME THU - THE ANTBIOITC YOU ARE ON CAN RAISE YOUR INR, ONLY TAKE .5 MG THURSDAY Discharge Orders: Discharge Order (Routine); Ordered 09/02/23 Ordered By: Roxana Aaron Diet: Diabetic diet Activity on Discharge: As tolerated Stand Alone Forms: Patient Portal Discharge page Activity Restrictions/Additional Instructions: Wound Care Recommendations: 1. Turn and Reposition every 2 hours and as needed for patient comfort consider use of wedges available in the storeroom. 2. Off Load all bony prominences with use of pillows, wedges and heel boots. 3. Monitor for incontinence and moisture control. 4. Provide adequate and supplemental nutrition. 5. Order or Continue low air loss mattress. 6. Maintain blood glucose levels per Providers orders. 7. Right Heel - Off Load Pressure from bed and chair surface. Air filled off loading boot applied to pt - Do not walk in this boot. Cleanse with normal saline, pat dry. ?Apply thin layer of Triad to the immediate stephania wound, apply thick layer of Santyl to entire wound bed, cover with dry gauze then secure with abd pads, gauze wrap and tape, change Daily. Care Plan Goals: Dose of Lasix increased to 40 mg daily Dose of Coumadin increased to 2 mg daily monitor INR closely with goal between 2-3 no, check INR 11/3 Take oxycodone as needed for pain/avoid pressure on right heel stop amlodipine Take valsartan 20 mg twice daily Take Jardiance as directed Health Concerns: Permanent atrial fibrillation CHF Plan of Treatment: Outpatient follow-up with primary care physician/and continue follow-up at wound clinic. Assessment: As above
[2023-09-02] MEDS: Metoprolol Succinate ER 100 MG TAB.ER.24H 200 MG PO (09:07)
[2023-09-02] MEDS: Valsartan 40 MG TABLET 20 MG PO (09:11)
[2023-09-02] MEDS: Aspirin Enteric Coated 81 MG TABLET.DR PO (09:11)
[2023-09-02] MEDS: Multivitamin TABLET 1 TAB PO (09:11)
[2023-09-02] MEDS: Empagliflozin 10 MG TABLET PO (09:11)
[2023-09-02] MEDS: Collagenase Clostridium Hist. 30 GM TUBE 1 APPL TOPICAL (09:13)
[2023-09-02] MEDS: Nystatin Powder 15 GM BOTTLE 1 APPL TOPICAL (09:16)
[2023-09-02] MEDS: oxyCODONE HCl Immed Release 5 MG TABLET PO (10:14)
[2023-09-02] MEDS: Acetaminophen 325 MG TABLET 650 MG PO (10:15)
[2023-09-02 11:25] LABS: Glucose, Whole Blood 158 mg/dL (60-115)
[2023-09-02] MEDS: Insulin Lispro 100 UNIT/ML 3 ML VIAL SUBCUT (12:07)
== END 2023-09-02 13:25 | disposition home health service (06) | DRG 291 ==
LOC: HO.ED 17:57 → HO.EDOVER 19:37 → HO.S3 08-26 09:29
PROVIDERS: Family Medicine; Admitting Provider Student in an Organized Health Care Education/Training Program; Emergency Provider Student in an Organized Health Care Education/Training Program; PCP Internal Medicine; Visit Provider Hospitalist
DX: I13.0 Hypertensive heart and chronic kidney disease with heart failure and stage 1 through stage 4 chronic kidney disease, or unspecified chronic kidney disease (principal); I50.23 Acute on chronic systolic (congestive) heart failure; J96.01 Acute respiratory failure with hypoxia; I48.11 Longstanding persistent atrial fibrillation; N18.30 Chronic kidney disease, stage 3 unspecified; E03.9 Hypothyroidism, unspecified; E11.22 Type 2 diabetes mellitus with diabetic chronic kidney disease; E11.65 Type 2 diabetes mellitus with hyperglycemia; I25.10 Atherosclerotic heart disease of native coronary artery without angina pectoris; N31.9 Neuromuscular dysfunction of bladder, unspecified; E78.5 Hyperlipidemia, unspecified; I35.0 Nonrheumatic aortic (valve) stenosis; E11.649 Type 2 diabetes mellitus with hypoglycemia without coma; L89.610 Pressure ulcer of right heel, unstageable; Z23 Encounter for immunization; Z20.822 Contact with and (suspected) exposure to COVID-19; Z96.0 Presence of urogenital implants; Z79.4 Long term (current) use of insulin; Z79.01 Long term (current) use of 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; Z79.82 Long term (current) use of aspirin; Z79.890 Hormone replacement therapy; Z79.899 Other long term (current) drug therapy
CPT/HCPCS: 0241U; 36415; 71045; 71275; 80048; 82803; 82947; 83735; 83880; 84484; 85025; 85027; 85610; 90686; 93005; 93306; 97110; 97116; 97162; 97530; 99285; J1940; J2270; Q9957; Q9967

== ENCOUNTER 2023-08-25 19:34 | Outpatient (BNV) | payer MEDICARE, SELFPAY | END 2023-08-26 07:00 | PROVIDERS: Admitting Provider Student in an Organized Health Care Education/Training Program; Emergency Provider Student in an Organized Health Care Education/Training Program; PCP Internal Medicine; Visit Provider Internal Medicine Cardiovascular Disease | DX: I35.0 Nonrheumatic aortic (valve) stenosis (principal); I34.0 Nonrheumatic mitral (valve) insufficiency | CPT/HCPCS: 93306 ==

== ENCOUNTER → 2023-08-25 19:34 | Outpatient (BNV) | payer MEDICARE, SELFPAY | PROVIDERS: Admitting Provider Student in an Organized Health Care Education/Training Program; Emergency Provider Student in an Organized Health Care Education/Training Program; PCP Internal Medicine; Visit Provider Internal Medicine Cardiovascular Disease | DX: I50.9 Heart failure, unspecified (principal); I48.11 Longstanding persistent atrial fibrillation | CPT/HCPCS: 99222; 99233 ==

== ENCOUNTER → 2023-08-25 19:34 | Outpatient (BNV) | payer MEDICARE, SELFPAY | PROVIDERS: Admitting Provider Student in an Organized Health Care Education/Training Program; Emergency Provider Student in an Organized Health Care Education/Training Program; PCP Internal Medicine; Visit Provider Student in an Organized Health Care Education/Training Program | DX: I50.9 Heart failure, unspecified (principal) | CPT/HCPCS: 99222; 99232; 99233; 99239 ==

== ENCOUNTER → 2023-09-04 13:11 | Outpatient (BNVA) | payer MEDICARE, SELFPAY | PROVIDERS: PCP Internal Medicine; Visit Provider Internal Medicine ==

== ENCOUNTER → 2023-09-08 13:00 | Outpatient (BNVA) | payer MEDICARE, SELFPAY | PROVIDERS: PCP Internal Medicine; Visit Provider Internal Medicine ==

== ENCOUNTER → 2023-09-11 12:56 | Outpatient (BNVA) | payer MEDICARE, SELFPAY | PROVIDERS: PCP Internal Medicine; Visit Provider Internal Medicine ==

== ENCOUNTER → 2023-09-16 14:04 | Outpatient (BNVA) | payer MEDICARE, SELFPAY | PROVIDERS: PCP Internal Medicine; Visit Provider Internal Medicine ==

== ENCOUNTER → 2023-09-17 13:37 | Outpatient (BNVA) | payer MEDICARE, SELFPAY | PROVIDERS: PCP Internal Medicine; Visit Provider Urology | DX: N31.9 Neuromuscular dysfunction of bladder, unspecified (principal) | CPT/HCPCS: 51705 ==

== ENCOUNTER → 2023-09-21 16:02 | Outpatient (BNVA) | payer MEDICARE, SELFPAY | PROVIDERS: PCP Internal Medicine; Visit Provider Internal Medicine ==

== ENCOUNTER → 2023-09-30 15:06 | Outpatient (BNVA) | payer MEDICARE, SELFPAY | PROVIDERS: PCP Internal Medicine; Visit Provider Internal Medicine ==

== ENCOUNTER 2023-10-06 15:00 | Outpatient (REF) | payer MEDICARE, SELFPAY ==
[2023-10-06 17:01] LABS: Alanine Aminotransferase 15 U/L (0-31); Albumin Level 3.5 g/dL (3.5-5.0); Alkaline Phosphatase 131 U/L (39-117); Anion Gap 13 (12-20); Aspartate Amino Transferase 25 U/L (5-31); Bilirubin Total 0.3 mg/dL (0.0-1.0); Blood Urea Nitrogen 39 mg/dL (9-16); Calcium 9.1 mg/dL (8.4-10.2); Carbon Dioxide 25 mmol/L (22-29); Chloride 106 mmol/L (96-108); Estimated Glomerular Filt Rate 33; Glucose Random 117 mg/dL (60-115); Sodium 140 mmol/L (135-145); Total Protein 7.9 g/dL (6.5-8.0)
== END 2023-10-06 15:01 | disposition home or self-care (01) ==
LOC: HO.LAB 15:00
PROVIDERS: Visit Provider Radiology Vascular & Interventional Radiology
DX: R79.89 Other specified abnormal findings of blood chemistry (principal); R94.4 Abnormal results of kidney function studies
CPT/HCPCS: 36415; 80053

== ENCOUNTER → 2023-10-07 13:42 | Outpatient (BNVA) | payer MEDICARE, SELFPAY | PROVIDERS: PCP Internal Medicine; Visit Provider Internal Medicine ==

== ENCOUNTER → 2023-10-13 11:58 | Outpatient (BNVA) | payer MEDICARE, SELFPAY | PROVIDERS: PCP Internal Medicine; Visit Provider Internal Medicine ==

== ENCOUNTER → 2023-10-15 11:55 | Outpatient (BNVA) | payer MEDICARE, SELFPAY | PROVIDERS: PCP Internal Medicine; Visit Provider Internal Medicine ==

== ENCOUNTER → 2023-10-19 11:27 | Outpatient (BNVA) | payer MEDICARE, SELFPAY | PROVIDERS: PCP Internal Medicine; Visit Provider Internal Medicine ==

== ENCOUNTER → 2023-10-20 13:08 | Outpatient (BNVA) | payer MEDICARE, SELFPAY | PROVIDERS: PCP Internal Medicine; Visit Provider Urology | DX: N31.9 Neuromuscular dysfunction of bladder, unspecified (principal) | CPT/HCPCS: 51705 ==

== ENCOUNTER → 2023-10-23 11:41 | Outpatient (BNVA) | payer MEDICARE, SELFPAY | PROVIDERS: PCP Internal Medicine; Visit Provider Internal Medicine ==

== ENCOUNTER → 2023-10-29 12:20 | Outpatient (BNVA) | payer MEDICARE, SELFPAY | PROVIDERS: PCP Internal Medicine; Visit Provider Internal Medicine ==

== ENCOUNTER → 2023-11-05 11:29 | Outpatient (BNVA) | payer MEDICARE, SELFPAY | PROVIDERS: PCP Internal Medicine; Visit Provider Internal Medicine ==

== ENCOUNTER → 2023-11-13 11:50 | Outpatient (BNVA) | payer MEDICARE, SELFPAY | PROVIDERS: PCP Internal Medicine; Visit Provider Internal Medicine ==

== ENCOUNTER → 2023-11-20 14:31 | Outpatient (BNVA) | payer MEDICARE, SELFPAY | PROVIDERS: PCP Internal Medicine; Visit Provider Internal Medicine ==

== ENCOUNTER → 2023-11-26 12:22 | Outpatient (BNVA) | payer MEDICARE, SELFPAY | PROVIDERS: PCP Internal Medicine; Visit Provider Internal Medicine ==

== ENCOUNTER → 2023-11-27 13:07 | Outpatient (BNVA) | payer MEDICARE, SELFPAY | PROVIDERS: PCP Internal Medicine; Visit Provider Urology | DX: Z43.5 Encounter for attention to cystostomy (principal); N31.9 Neuromuscular dysfunction of bladder, unspecified | CPT/HCPCS: 51705 ==

== ENCOUNTER → 2023-12-02 11:45 | Outpatient (BNVA) | payer MEDICARE, SELFPAY | PROVIDERS: PCP Internal Medicine; Visit Provider Internal Medicine ==

== ENCOUNTER → 2023-12-10 15:26 | Outpatient (BNVA) | payer MEDICARE, SELFPAY | PROVIDERS: PCP Internal Medicine; Visit Provider Internal Medicine ==

== ENCOUNTER → 2023-12-18 13:32 | Outpatient (REF) | payer MEDICARE, SELFPAY ==
--- NOTE | 2023-12-18 13:37 | HM_ITS ---
Conclusion: 1. Patient was monitored for total period of 2 days 2. Baseline was atrial fibrillation with average heart of 81 beats per minute with overall good rate control 3. No significant pauses noted 4. Frequent PVCs noted with total burden of 6.4% 5. No patient reported events MTDD
== END ==
LOC: HO.CARD 13:32
PROVIDERS: PCP Internal Medicine; Visit Provider Nurse Practitioner Family
DX: I48.91 Unspecified atrial fibrillation (principal); I35.0 Nonrheumatic aortic (valve) stenosis; Z98.890 Other specified postprocedural states; Z96.641 Presence of right artificial hip joint
CPT/HCPCS: 93242

== ENCOUNTER → 2023-12-18 13:37 | Outpatient (BNV) | payer MEDICARE, SELFPAY | PROVIDERS: PCP Internal Medicine; Visit Provider Internal Medicine Cardiovascular Disease | DX: I48.91 Unspecified atrial fibrillation (principal) | CPT/HCPCS: 93244 ==

== ENCOUNTER → 2023-12-24 13:35 | Outpatient (BNVA) | payer MEDICARE, SELFPAY | PROVIDERS: PCP Internal Medicine; Visit Provider Urology | DX: N31.9 Neuromuscular dysfunction of bladder, unspecified (principal); Z93.59 Other cystostomy status | CPT/HCPCS: 51705 ==

== ENCOUNTER → 2023-12-25 14:42 | Outpatient (BNVA) | payer MEDICARE, SELFPAY | PROVIDERS: PCP Internal Medicine; Visit Provider Internal Medicine ==

== ENCOUNTER → 2024-01-01 14:49 | Outpatient (BNVA) | payer MEDICARE, SELFPAY | PROVIDERS: PCP Internal Medicine; Visit Provider Internal Medicine ==

== ENCOUNTER → 2024-01-08 13:10 | Outpatient (BNVA) | payer MEDICARE, SELFPAY | PROVIDERS: PCP Internal Medicine; Visit Provider Internal Medicine ==

== ENCOUNTER 2024-01-11 19:42 | Inpatient (IN) | payer MEDICARE, SELFPAY ==
--- NOTE | ~2024-01-11 | XR_ITS ---
EXAMINATION: XR CHEST CLINICAL INFORMATION: Shortness of breath. COMPARISON: 08/25/2023. TECHNIQUE: Frontal view of the chest was obtained. FINDINGS: The cardiomediastinal silhouette is stable. There is pulmonary vascular congestion. There is lingular and bibasilar subsegmental atelectasis or scarring. The lungs are otherwise clear. The bony structures and soft tissues are unremarkable. XR/XR chest 1V IMPRESSION: Pulmonary vascular congestion. Lingular and bibasilar subsegmental atelectasis or scarring.
--- NOTE | ~2024-01-11 | CT_ITS ---
EXAMINATION: CT HEAD WITHOUT CONTRAST CLINICAL INFORMATION: Fall COMPARISON: CT head from 07/16/2022 TECHNIQUE: Contiguous axial imaging was performed from the skull base to vertex without intravenous administration of contrast. This CT examination was performed using dose optimization techniques as appropriate, variously including the following: *Automated exposure control *Adjustment of mA and/or kV according to patient size (this includes techniques or standardized protocols for targeted exams where dose is matched to indication/reason for exam; i.e. extremities or head) *Use of iterative reconstruction technique DLP: 1027 mGy-cm FINDINGS: There is no evidence of acute intracranial hemorrhage or territorial infarction. Chronic infarct left posterior parietal lobe. Chronic white matter small vessel ischemic changes. Cerebral atrophy with commensurate changes. No abnormal mass effect or midline shift is seen. Amaya to white matter differentiation is well preserved. No extra-axial fluid collections are identified. The ventricles are normal in size. There is no abnormal attenuation within the brain parenchyma. The osseous structures and soft tissues are normal. The mastoid air cells and visualized portions of the paranasal sinuses are well aerated. CT/CT cervical spine wo IV con IMPRESSION: 1. No acute intracranial pathology. 2. Chronic infarct left posterior parietal lobe. 3. Chronic white matter small vessel ischemic changes. EXAMINATION: Noncontrast CT scan of the cervical spine. INDICATION: Fall COMPARISON: CT cervical spine from 08/15/2022 TECHNIQUE: Helical, multidetector axial images were obtained from the occiput to the upper thorax. Coronal and sagittal reformats of the cervical spine were provided for interpretation. DLP: 1027 mGy-cm FINDINGS: No acute fractures or dislocations of the cervical spine are seen. Reversal of the normal cervical curvature. Grade 1 anterolisthesis of C4 on C5. Moderate to severe multilevel degenerative changes as space narrowing, endplate sclerosis, anterior bridging osteophyte formation, and facet arthropathy. Anatomic alignment and positioning of the vertebral bodies and posterior elements is noted. The atlantoaxial joint and craniovertebral articulations are normal without evidence of subluxation. There is no prevertebral soft tissue swelling. The thyroid gland and visualized portions of the lung apices and mediastinum are unremarkable. IMPRESSION: 1. No acute visible fracture or dislocation. 2. Reversal of the normal cervical curvature. 3. Grade 1 anterolisthesis of C4 on C5. 4. Moderate to severe multilevel degenerative changes.
--- NOTE | ~2024-01-11 | NM_ITS ---
EXAMINATION: RENAL DYNAMIC IMAGING STUDY WITH LASIX CLINICAL INFORMATION: Bilateral hydronephrosis with Healy catheter. COMPARISON: No previous radionuclide renal scan is available for comparison. CT scan of the abdomen and pelvis dated 01/11/2024 is available for comparison. TECHNIQUE: Serial gamma scintillation camera images were obtained over the posterior trunk during the initial transit and subsequent distribution of a bolus intravenous injection of 10 mCi of Tc-99m DTPA. At 30 minutes later, 40 mg of Lasix was administered intravenously and an additional 40 minutes of images obtained. A Healy catheter was in place during this exam and was clamped for the entire exam. FINDINGS: Initial rapid sequence images show show prompt and normal-appearing flow to the left kidney but mildly diminished flow to the right kidney which is smaller in size than the left. Subsequent sequential static images obtained up to 30 minutes show concentration in the left kidney which appears normal in size. There is mildly diminished concentration in the right kidney and this kidney appears significantly smaller in size than the left. Its superior margin cannot be well from the liver on initial images. At 30 minutes postinjection there is good visualization of activity in the urinary bladder and mild retention in the collecting systems of both kidneys, and the renal pelves appears slightly dilated bilaterally. There is faint visualization of both ureters at this time. Following Lasix administration, there is good washout of the small amount of retained activity present in both kidneys at the time of Lasix administration. At the end of the study, almost all the excretory activity is in urinary bladder with only faint retention in both renal pelves. The T-1/2 washout times following Lasix administration are: Left 4 minutes and right 5 minutes. The relative function of the two kidneys based on the 2-3 minute images are: Left 65% and right 35%. NM/NM renal flow w pharm int IMPRESSION: LEFT KIDNEY: Normal perfusion and function. Mild hydronephrosis is probably present, but there is no significant outflow obstruction. RIGHT KIDNEY: This kidney is slightly smaller this kidney is significantly smaller than the left and shows mildly diminished concentration compared to the left. The relative function of this kidney is significantly lower, likely a combination of smaller size and impaired function. Mild hydronephrosis is probably present, but there is no significant outflow obstruction.
--- NOTE | ~2024-01-11 | CT_ITS ---
EXAMINATION: CT ABDOMEN AND PELVIS WITHOUT CONTRAST CLINICAL INFORMATION: Pain. COMPARISON: 05/08/2023. 08/15/2022. TECHNIQUE: Multidetector volumetric imaging was performed from the superior aspect of the liver through the pubic symphysis. Sagittal and coronal reformatted images were obtained on the technologist's workstation. This CT examination was performed using dose optimization techniques as appropriate, variously including the following: *Automated exposure control *Adjustment of mA and/or kV according to patient size (this includes techniques or standardized protocols for targeted exams where dose is matched to indication/reason for exam; i.e. extremities or head) *Use of iterative reconstruction technique DLP: 455 mGy-cm FINDINGS: LUNG BASES: Atelectatic change and/or scarring at both lung bases. There is minimal right pleural effusion. LIVER, GALLBLADDER, AND BILIARY TREE: The liver is normal in size, shape, and attenuation. No focal hepatic lesion or biliary ductal dilatation is present. There has been a prior cholecystectomy. PANCREAS: Unremarkable. SPLEEN: Unremarkable. ADRENAL GLANDS: There is a stable 2 cm left adrenal nodule. KIDNEYS AND URETERS: The kidneys are normal in size and position. There is bilateral mild hydronephrosis and moderate bilateral hydroureter extending into the pelvis. No ureteral calculi are seen. BLADDER: There is urinary bladder wall thickening. A suprapubic indwelling catheter is noted in place. GASTROINTESTINAL TRACT: There is retained stool throughout the colon. There are diverticula of the descending colon without diverticulitis. The appendix is not confidently seen as a separate structure. ABDOMINAL WALL: No significant hernia is appreciated. LYMPH NODES: Normal. VASCULAR: Atherosclerotic plaque of the abdominal aorta and proximal branches. PELVIC VISCERA: Calcific uterine fibroids are noted. OSSEOUS STRUCTURES: There is diffuse thoracolumbar disc degenerative change and facet disease with multilevel spinal canal and neuroforaminal narrowing. CT/CT abdomen pelvis wo IV con IMPRESSION: 1. Mild bilateral hydronephrosis and moderate bilateral hydroureter extending into the pelvis. No ureteral calculi are seen. 2. Urinary bladder wall thickening with indwelling suprapubic catheter in place. 3. Stable 2 cm left adrenal nodule. 4. Retained stool throughout the colon. Diverticula of the descending colon without diverticulitis. 5. Degenerative changes of the thoracolumbar spine with multilevel spinal canal and neuroforaminal narrowing. Fleischner guidelines were followed.
--- NOTE | ~2024-01-11 | XR_ITS ---
EXAMINATION: XR CHEST CLINICAL INFORMATION: Cough. COMPARISON: Chest x-ray 01/12/2024. TECHNIQUE: Frontal view of the chest was obtained. FINDINGS: The cardiac silhouette is enlarged. The lungs are hypoexpanded. Central vascular congestion and mild interstitial edema similar to prior. New airspace disease is seen in the right upper lung field. Linear atelectasis or scarring in the mid left lung field. Coronary artery stenting. No sizable effusion. No pneumothorax. XR/XR chest 1V IMPRESSION: Enlarged heart with vascular congestion and mild interstitial edema. New airspace disease in the right upper lung.
--- NOTE | ~2024-01-11 | CT_ITS ---
EXAMINATION: CT CHEST WITHOUT CONTRAST CLINICAL INFORMATION: Cough. COMPARISON: 08/25/2023 TECHNIQUE: Multidetector volumetric CT imaging of the chest was done. Axial MIP volume rendering provided. Sagittal and coronal reformatted images were obtained. This CT examination was performed using dose optimization techniques as appropriate, variously including the following: *Automated exposure control *Adjustment of mA and/or kV according to patient size (this includes techniques or standardized protocols for targeted exams where dose is matched to indication/reason for exam; i.e. extremities or head) *Use of iterative reconstruction technique DLP: 313 mGy-cm FINDINGS: CLOCK AND WATCH ASSEMBLER: Unremarkable LUNGS: There is linear dependent consolidation at the lung bases associated with a minimal right pleural effusion. There is bilateral lower lobe interstitial prominence. MEDIASTINUM: The heart is mildly enlarged. There is no significant lymphadenopathy. There is atherosclerotic plaque of the aortic arch and descending thoracic aorta. CORONARY ARTERY CALCIFICATION: Moderate to severe. PLEURA: There is no pleural effusion. No pleural mass or thickening. AXILLA: No lymphadenopathy. UPPER ABDOMEN: Unremarkable. OSSEOUS STRUCTURES: There is diffuse thoracolumbar disc degenerative change with prominent posterior osteophytes at T6-T7 and T8-T9. CT/CT chest wo IV con IMPRESSION: 1. Linear dependent consolidation at the lung bases likely representing atelectasis associated with a minimal right pleural effusion. 2. Mild cardiomegaly. Bilateral lower lobe interstitial prominence. Consider early interstitial edema. Fleischner guidelines were followed.
--- NOTE | ~2024-01-11 | XR_ITS ---
EXAMINATION: XR HIP, RIGHT CLINICAL INFORMATION: Fall COMPARISON: CT dated 05/08/2023 TECHNIQUE: AP view of the pelvis and AP and frog-leg lateral views of the right hip. FINDINGS: Prosthetic components of the right total hip arthroplasty are appropriately aligned without periprosthetic fracture or abnormal lucency. No component migration. Bones are osteopenic. Moderate osteoarthritis in the left hip, pubic symphysis, and SI joints. Ankylosis is noted in the lower lumbar spine. No acute osseous findings. Calcific atherosclerosis in the iliac and femoral arteries. XR/XR hip RT w PEL1V IMPRESSION: Appropriate alignment of the right total hip arthroplasty without evidence of complications. No acute fracture or malalignment.
[2024-01-11 20:00] VITALS: BP 150/92; PULSE 90; O2SAT 96; BMI 31.8
[2024-01-11 20:02] VITALS: BP 107/44; PULSE 93; RESP 21; TEMP 36.6; O2SAT 90
--- NOTE | 2024-01-11 20:04 | ED_ITS ---
HPI - Fall General Chief Complaint: Fall Stated Complaint: UNWIT FALL, +HEADSTRIKE,+THINNERS Time Seen by Provider: 01/11/24 20:04 Source: patient and family Mode of arrival: EMS Limitations: no limitations History of Present Illness HPI Narrative: Patient history 3 years old with history of congestive heart failure AFib on Coumadin CKD hypothyroidism diabetes hypertension peripheral arterial disease status post stent placement complaining of pain in the left right groin area for last 2 days daughter gave her 10 mg of oxycodone patient still having the pain tried to get above for on and fell unwitnessed fall patient had femoral artery stent placed few weeks ago no nausea no vomiting no fever no chills Related Data Home Medications Medication Instructions Recorded Confirmed levothyroxine 25 mcg tablet 25 mcg PO DAILY 09/05/20 12/18/23 aspirin 81 mg tablet,delayed 81 mg PO DAILY 09/11/21 12/18/23 release pen needle, diabetic 32 gauge x #50 ea 12/31/21 12/18/23 (BD Cathy 2nd Gen Pen Needle) multivitamin (One Daily 1 tab PO DAILY 09/15/22 12/18/23 Multivitamin tablet) lancets 28 gauge (FreeStyle #100 ea 09/29/22 12/18/23 Lancets) vitamins A,C,W-jbka-pajqcc 2,148 1 tab PO BIDWM 05/09/23 12/18/23 mcg-113 mg-45 mg-17.4 mg tablet (PreserVision AREDS) melatonin 5 mg tablet 10 mg PO BEDTIME PRN Sleep 06/04/23 12/18/23 insulin lispro 100 unit/mL 1 sliding scale dose subcut QIDACHS 08/25/23 12/18/23 subcutaneous pen (Humalog KwikPen (U-100) Insulin) amlodipine 5 mg tablet 5 mg PO DAILY 11/13/23 12/18/23 benzonatate 100 mg capsule 100 mg PO TID 12/18/23 12/18/23 Previous Rx's Medication Instructions Recorded atorvastatin 10 mg tablet 10 mg PO BEDTIME #90 tabs 09/22/22 metoprolol succinate 200 mg 200 mg PO DAILY #90 tabs 06/29/23 tablet,extended release 24 hr empagliflozin 10 mg tablet 10 mg PO DAILY #30 tabs 09/02/23 (Jardiance) furosemide 40 mg tablet (Lasix) 40 mg PO DAILY #30 tabs 09/02/23 insulin glargine 100 unit/mL 10 unit (0.1 mL) subcut BEDTIME 09/02/23 subcutaneous solution (Lantus #10 mL U-100 Insulin) nystatin 100,000 unit/gram topical 1 appl topical BID #30 grams 09/02/23 powder warfarin 2 mg tablet 2 mg PO DAILY #30 tabs 09/02/23 valsartan 40 mg tablet 20 mg PO BID 90 days #90 tabs 12/01/23 Allergies Allergy/AdvReac Type Severity Reaction Status Date / Time No Known Allergies Allergy Verified 01/08/24 14:33 [No Known Allergies*] Review of Systems 2 Review of Systems: Yes all other systems are reviewed and are negative [facility] Past Medical History Medical History Atrial fibrillation DOROTHY (acute kidney injury) Neuropathy Neurogenic bladder CVA (cerebral vascular accident) Shingles Elevated cholesterol Myocardial infarction MRSA infection Hip pain Leg wound, left Varicose vein of leg Osteoarthritis of right hip Current use of anticoagulant therapy Recurrent UTI Atrial fibrillation PAF (paroxysmal atrial fibrillation) Congestive heart failure Urinary incontinence Hypothyroidism Diabetes Hypertension CKD (chronic kidney disease) CAD (coronary artery disease) Hypotonic neurogenic bladder Surgical History History of left knee replacement History of right knee joint replacement H/O heart artery stent H/O nasal polypectomy History of tubal ligation History of tonsillectomy and adenoidectomy Hx of cholecystectomy Family History Family History Father Hx of angina pectoris Myocardial infarction Mother Ovarian cancer Stomach cancer Maternal Grandfather Hardening of the arteries of the heart Social History Social History Household Members: Family Household Members Other:: daughter Housing: House Are you a primary career development coordinator to a significant other at home: No Do you presently have visiting nurse or other home services: Yes Alcohol intake: never Comment: [facility] [place] Patient Tobacco Use Status: Never used Tobacco Smoked in Last 30 Days: No Second Hand Smoke Exposure: No Use of substances other than those prescribed or required for medical reasons: No Advance Directives: Yes Advance Directives on File: Yes Advance Directives Date on File: 08/27/22 service: No Current occupational status: retired Physical Exam 2 Vital Signs: Vital Signs: Last Vital Signs Temp 97.9 F 01/11/24 20:02 Pulse 94 01/12/24 00:07 Resp 17 01/12/24 00:07 BP 125/65 01/11/24 22:44 Pulse Ox 92 01/12/24 00:07 O2 Del Method Room Air 01/12/24 00:07 BMI result Body Mass Index 31.8 Appearance: Alert. Oriented X2. No acute distress. Eyes: PERRLA, No Nystagmus ENT: Pharynx normal. Oral Mucosa moist Neck: Normal inspection. Neck supple. CVS: Normal heart rate and rhythm. Pulses normal. Respiratory: No respiratory distress. Equal air entry bilateral, no wheezing/rales/rhonchi Abdomen: Soft, deep tenderness right lower abdominal and groin area. Bowel sounds are present, no mass palpable, no CVA tenderness Skin: Skin warm and dry. Normal skin color. Normal skin turgor. Extremities: No lower extremity edema. No calf tenderness all peripheral pulses palpable good range of movement of the right hip Neuro: Oriented X 3. No motor deficit. No sensory deficit.No cerebellar signs , cranial nerves II-XII intact Medications Administered Discontinued Medications Generic Name Dose Route Start Last Admin Trade Name Freq PRN Reason Stop Dose Admin Sodium Chloride 1,000 mls @ 999 mls/hr 01/11/24 21:38 01/12/24 00:00 Ns IV 01/11/24 22:38 Infused .Q1H1M ONE Infusion Medical Decision Making Medical Decision Making [facility] Narrative: Patient with DOROTHY with right groin pain neurovascular intact will admit patient for further evaluation which does have history of CHF was given IV fluids no shortness of breath at this time will admit patient for DOROTHY Differential Diagnosis Differential Diagnoses: The differential diagnosis associated with the presentation includes Musculoskeletal/constipated/diverticulitis/appendicitis Admission/Observation Consideration of admission/observation: Escalation of care including admission/observation considered Consult Healthcare Provider Management of the patient was discussed with: Hospitalist Lab Data [facility] Lab Attestation statement: I reviewed the patient's lab results. 01/11/24 20:50 01/11/24 20:50 Labs: Lab Results 01/11/24 01/12/2401/11/24 Range/Units 20:50 01:15 01:21 WBC 10.3 (4.8-10.8) X10*3/uL RBC 4.49 (4.20-5.50) X10*6/uL Hgb 12.3 (12.0-16.0) g/dl Hct 38.0 (37.0-47.0) % MCV 84.6 (80.0-98.0) fL MCH 27.4 (27.0-33.0) pg MCHC 32.4 (31.0-35.0) g/dl RDW 18.5 H (11.0-16.0) % Plt Count 236 (160-400) X10*3/uL MPV 8.7 L (9.4-12.3) fL Immature Gran % (Auto) 0.6 H (0.0-0.4) % Neut % (Auto) 64.0 (45-73) % Lymph % (Auto) 14.2 L (20-40) % Brantley % (Auto) 20.2 H (2-11) % Eos % (Auto) 0.6 (0-4) % Baso % (Auto) 0.4 (0-2) % Lymph # (Auto) 1.5 (1.2-4.9) X10*3/uL Brantley # (Auto) 2.1 H (0.1-1.2) X10*3/uL Eos # (Auto) 0.1 (0.0-0.4) X10*3/uL Baso # (Auto) 0.0 (0.0-0.2) X10*3/uL Abs Immat Gran (auto) 0.06 H (0.00-0.03) X10*3/uL Absolute Neuts (auto) 6.6 (2.0-8.3) x10*3/uL Absolute Nucleated RBC 0.000 (0.0-0.012) X10*3/uL Nucleated RBC % (auto) 0.0 (0.0-0.2) /100WBC Smear Tech's Comments VERIFIED PT 18.5 H (11.1-13.3) SEC INR 1.5 H (0.9-1.1) APTT 33.7 (26.0-36.8) SEC Sodium 133 L (135-145) mmol/L Potassium 4.2 (3.3-5.1) mmol/L Chloride 100 (96-108) mmol/L Carbon Dioxide 23 (22-29) mmol/L Anion Gap 14 (12-20) BUN 47 H (9-16) mg/dL Creatinine 2.38 H (0.5-1.4) mg/dL Estim Creat Clear Calc 20.8 Estimated GFR 19 Random Glucose 172 H (60-115) mg/dL Calcium 9.0 (8.4-10.2) mg/dL Total Bilirubin 1.0 (0.0-1.0) mg/dL AST 20 (5-31) U/L ALT 17 (0-31) U/L Alkaline Phosphatase 133 H (39-117) U/L B-Natriuretic Peptide 710 H (<100) pg/mL Total Protein 8.2 H (6.5-8.0) g/dL Albumin 3.4 L (3.5-5.0) g/dL Urine Color Yellow Urine Appearance Turbid Urine pH 5.0 (5.0-9.0) Ur Specific [place] 1.010 (1.005-1.025) Urine Protein 100 (2+) H (Neg-Trace) mg/dL Urine Glucose (UA) 500 H (Negative) mg/dL Urine Ketones Negative (Negative) mg/dL Urine Blood Moderate (2+) H (Negative) Urine Nitrite Negative (Negative) Ur Leukocyte Esterase Large (3+) H (Negative) Urine RBC 6-10 H (0-2) /HPF Urine WBC >50 H (0-5) /HPF Ur Squamous Epith Cells 0-2 (0-2) /HPF Urine Bacteria 4+ (None Seen) Hyaline Casts 0-2 (0-2) /LPF Urine Yeast Present Independent Interpretation I performed an independent interpretation of an: Plain X-Ray and CT Scan Radiology Impression Discussion of test interpretation with radiology: I have reviewed the radiologist's reading. Radiologist Impression: CT/CT abdomen pelvis wo IV con IMPRESSION: 1. Mild bilateral hydronephrosis and moderate bilateral hydroureter extending into the pelvis. No ureteral calculi are seen. 2. Urinary bladder wall thickening with indwelling suprapubic catheter in place. 3. Stable 2 cm left adrenal nodule. 4. Retained stool throughout the colon. Diverticula of the descending colon without diverticulitis. 5. Degenerative changes of the thoracolumbar spine with multilevel spinal canal and neuroforaminal narrowing. Fleischner guidelines were followed. Discharge Plan Discharge Clinical Impression: Acute renal failure Patient Disposition: Admitted As Inpatient
--- NOTE | 2024-01-11 20:07 | PC.NURSE ---
Dr. Kahn made aware as pt had fall +headstrike & thinners.
[2024-01-11 20:59] LABS: Basophils Percent Auto 0.4 % (0-2); Eosinophils Absolute Auto 0.1 X10*3/uL (0.0-0.4); Eosinophils Percent Auto 0.6 % (0-4); Hemoglobin 12.3 g/dl (12.0-16.0); Imm Gran Abs Auto 0.06 X10*3/uL (0.00-0.03); Imm Gran Pct Auto 0.6 % (0.0-0.4); Lymphocytes Absolute Auto 1.5 X10*3/uL (1.2-4.9); Lymphocytes Percent Auto 14.2 % (20-40); MANUAL DIFF FLAG SCAN; Mean Corpuscular HGB Conc 32.4 g/dl (31.0-35.0); Mean Corpuscular Hemoglobin 27.4 pg (27.0-33.0); Mean Corpuscular Volume 84.6 fL (80.0-98.0); Mean Platelet Volume 8.7 fL (9.4-12.3); Monocytes Absolute Auto 2.1 X10*3/uL (0.1-1.2); Monocytes Percent Auto 20.2 % (2-11); Neutrophils Absolute Auto 6.6 x10*3/uL (2.0-8.3); Platelet Count 236 X10*3/uL (160-400); Red Blood Count 4.49 X10*6/uL (4.20-5.50); Red Cell Distribution Width 18.5 % (11.0-16.0); SCAN SMEAR FLAG 1; White Blood Count 10.3 X10*3/uL (4.8-10.8)
[2024-01-11 21:05] LABS: INTERNATIONAL NORM RATIO 1.5 (0.9-1.1); Prothrombin Time 18.5 SEC (11.1-13.3)
[2024-01-11 21:07] LABS: Partial Thromboplastin Time 33.7 SEC (26.0-36.8)
[2024-01-11 21:13] LABS: Alanine Aminotransferase 17 U/L (0-31); Albumin Level 3.4 g/dL (3.5-5.0); Alkaline Phosphatase 133 U/L (39-117); Anion Gap 14 (12-20); Aspartate Amino Transferase 20 U/L (5-31); Blood Urea Nitrogen 47 mg/dL (9-16); Carbon Dioxide 23 mmol/L (22-29); Chloride 100 mmol/L (96-108); Creatinine Clr Calc Pharmacy 20.8; Estimated Glomerular Filt Rate 19; Glucose Random 172 mg/dL (60-115); Potassium 4.2 mmol/L (3.3-5.1); Sodium 133 mmol/L (135-145); Total Protein 8.2 g/dL (6.5-8.0)
[2024-01-11 21:21] LABS: SLIDE REVIEW VERIFIED
[2024-01-11 22:44] VITALS: BP 125/65; PULSE 97; RESP 17; O2SAT 94
[2024-01-11] MEDS: 0.9 % Sodium Chloride 1,000 ML 999 ML IV (22:44)
--- NOTE | 2024-01-11 23:01 | PC.NURSE ---
Addendum entered by Ciera Gomez 01/11/24 23:35: PT HAD BANDAID COVERING RASH HEART SHAPED ON RUE. BANDAID REMOVED. DR. MENDOZA AWARE. Original Note: pt has a suprapubic cath however still experiences urinary incontinence. bag attached per dr mendoza approval however no urine drained. pts depends found to be soaked. pt cleaned linen changed depends removed. ivf infusing. call zhou within reach.
[2024-01-12 00:07] VITALS: PULSE 94; RESP 17; O2SAT 92
[2024-01-12 01:27] LABS: Appearance Urine Turbid; Color Urine Yellow; Glucose Urine UA 500 mg/dL (Negative); Leukocyte Esterase Urine Large (3+) (Negative); Nitrite Urine Negative (Negative); UMIC TRIGGER UACC YES; Urine Blood Moderate (2+) (Negative); Urine Ketones Negative (Negative); Urine Protein 100 (2+) mg/dL (Neg-Trace)
[2024-01-12 01:39] LABS: B Type Natriuretic Peptide 710 pg/mL (<100)
[2024-01-12 01:40] LABS: Bacteria Urine 4+ (None Seen); Hyaline Casts Urine 0-2 /LPF (0-2); Squamous Epithelial Cell Urine 0-2 /HPF (0-2); UACC Culture Trigger YES; WBC Urine >50 /HPF (0-5)
--- NOTE | 2024-01-12 01:41 | PC.NURSE ---
dr katz aware of uo.
[2024-01-12 02:28] VITALS: PULSE 76; RESP 17; O2SAT 96
--- NOTE | 2024-01-12 02:47 | PM.IMHP ---
History of Present Illness Date of Service: 01/12/24 Chief Complaint: Fall This is a 83-year-old female with pertinent history of congestive heart failure with preserved ejection fraction, permanent atrial fibrillation on Coumadin, CKD stage 3, hypothyroidism, insulin-dependent diabetes mellitus, essential hypertension, neurogenic bladder status post suprapubic catheter who presents to the emergency department for evaluation of a fall. Patient stated that she lost balance and fell when she was in her living room. Did not lose consciousness. No chest pain or palpitations. No jerking movement of extremities. Patient also states that she has been having episodes of choking and cough which is worse when lying down. Does not use oxygen at home. Patient is compliant with home Lasix. The cough is nonproductive. No fever, chills, palpitations, abdominal pain, changes in urinary or bowel habits. She endorses groin pain which is worse with movement. In the emergency department, imaging with vascular congestion and BNP found to be elevated. Also found to have elevated creatinine. Review of Systems Constitutional: Constitutional: Reports fatigue Cardiovascular: Cardiovascular: Reports orthopnea Respiratory: Respiratory: Reports cough Gastrointestinal: Gastrointestinal: Reports no additional gastrointestinal complaints Genitourinary: Genitourinary: Reports no additional female genitourinary complaints Endocrine: Endocrine: Reports fatigue [facility] Medical History (Updated 01/12/24 @ 06:26 by Sandy Porter MD) DOROTHY (acute kidney injury) Atrial fibrillation Neuropathy Neurogenic bladder CVA (cerebral vascular accident) Shingles Elevated cholesterol Myocardial infarction MRSA infection Hip pain Leg wound, left Varicose vein of leg Osteoarthritis of right hip Current use of anticoagulant therapy Recurrent UTI Atrial fibrillation PAF (paroxysmal atrial fibrillation) Congestive heart failure Urinary incontinence Hypothyroidism Diabetes Hypertension CKD (chronic kidney disease) CAD (coronary artery disease) Hypotonic neurogenic bladder Family History Father Hx of angina pectoris Myocardial infarction Mother Ovarian cancer Stomach cancer Maternal Grandfather Hardening of the arteries of the heart Surgical History History of left knee replacement History of right knee joint replacement H/O heart artery stent H/O nasal polypectomy History of tubal ligation History of tonsillectomy and adenoidectomy Hx of cholecystectomy Social History Household Members: Family Household Members Other:: daughter Housing: House Are you a primary furnace caretaker to a significant other at home: No Do you presently have visiting nurse or other home services: Yes Alcohol intake: never Comment: [facility] Patient Tobacco Use Status: Never used Tobacco Smoked in Last 30 Days: No Second Hand Smoke Exposure: No Use of substances other than those prescribed or required for medical reasons: No Advance Directives: Yes Advance Directives on File: Yes Advance Directives Date on File: 08/27/22 service: No Current occupational status: retired [employer] Allergies Allergy/AdvReac Type Severity Reaction Status Date / Time No Known Allergies Allergy Verified 01/08/24 14:33 [No Known Allergies*] Home Medications Medication Instructions Recorded Confirmed Last Taken Type levothyroxine 25 mcg tablet 25 mcg PO DAILY 09/05/20 12/18/23 08/25/23 History aspirin 81 mg tablet,delayed 81 mg PO DAILY 09/11/21 12/18/23 08/25/23 History release pen needle, diabetic 32 gauge x #50 ea 12/31/21 12/18/23 Unknown History (BD Cathy 2nd Gen Pen Needle) multivitamin (One Daily 1 tab PO DAILY 09/15/22 12/18/23 08/25/23 History Multivitamin tablet) lancets 28 gauge (FreeStyle #100 ea 09/29/22 12/18/23 Unknown History Lancets) vitamins A,C,Z-bjuj-zarzxt 2,148 1 tab PO BIDWM 05/09/23 12/18/23 08/25/23 History mcg-113 mg-45 mg-17.4 mg tablet (PreserVision AREDS) melatonin 5 mg tablet 10 mg PO BEDTIME PRN Sleep 06/04/23 12/18/23 08/24/23 History insulin lispro 100 unit/mL 1 sliding scale dose subcut QIDACHS 08/25/23 12/18/23 Unknown History subcutaneous pen (Humalog KwikPen (U-100) Insulin) amlodipine 5 mg tablet 5 mg PO DAILY 11/13/23 12/18/23 Unknown History benzonatate 100 mg capsule 100 mg PO TID 12/18/23 12/18/23 Unknown History Physical Exam Vital Signs and Narrative: Vital Signs: Last Vital Signs Temp 97.9 F 01/11/24 20:02 Pulse 76 01/12/24 02:28 Resp 17 01/12/24 02:28 BP 125/65 01/11/24 22:44 Pulse Ox 96 01/12/24 02:28 O2 Del Method Room Air 01/12/24 02:28 BMI result Body Mass Index 31.8 Elderly female lying in bed in no distress Neck supple Regular rate and rhythm, S1-S2 heard Bilateral crackles without wheezing Abdomen soft nontender, no guarding, no rigidity Patient is awake, alert and oriented to self, place, time and person ; no focal motor deficit Psych: Normal mood Bilateral pedal edema Results Labs 01/11/24 20:50 01/11/24 20:50 Labs: Laboratory Results - last 24 hr 01/11/24 01/12/24 01/12/24 20:50 01:15 01:21 MCV 84.6 MCH 27.4 MCHC 32.4 RDW 18.5 H Plt Count 236 MPV 8.7 L Immature Gran % (Auto) 0.6 H Neut % (Auto) 64.0 Lymph % (Auto) 14.2 L [place] % (Auto) 20.2 H Eos % (Auto) 0.6 Baso % (Auto) 0.4 Lymph # (Auto) 1.5 [place] # (Auto) 2.1 H Eos # (Auto) 0.1 Baso # (Auto) 0.0 Abs Immat Gran (auto) 0.06 H Absolute Neuts (auto) 6.6 Absolute Nucleated RBC 0.000 Nucleated RBC % (auto) 0.0 Smear Tech's Comments VERIFIED PT 18.5 H INR 1.5 H APTT 33.7 Anion Gap 14 Estim Creat Clear Calc 20.8 Estimated GFR 19 Random Glucose 172 H Calcium 9.0 Total Bilirubin 1.0 AST 20 ALT 17 Alkaline Phosphatase 133 H B-Natriuretic Peptide 710 H Total Protein 8.2 H Albumin 3.4 L Urine Color Yellow Urine Appearance Turbid Urine pH 5.0 Ur Specific [place] 1.010 Urine Protein 100 (2+) H Urine Glucose (UA) 500 H Urine Ketones Negative Urine Blood Moderate (2+) H Urine Nitrite Negative Ur Leukocyte Esterase Large (3+) H Urine RBC 6-10 H Urine WBC >50 H Ur Squamous Epith Cells 0-2 Urine Bacteria 4+ Hyaline Casts 0-2 Urine Yeast Present Imaging Radiologist's Impressions: Impressions Hip/Pelvis X-Ray 01/11/24 20:30 IMPRESSION: Appropriate alignment of the right total hip arthroplasty without evidence of complications. No acute fracture or malalignment. Cervical Spine CT 01/11/24 20:39 IMPRESSION: 1. No acute intracranial pathology. 2. Chronic infarct left posterior parietal lobe. 3. Chronic white matter small vessel ischemic changes. EXAMINATION: Noncontrast CT scan of the cervical spine. INDICATION: Fall COMPARISON: CT cervical spine from 08/15/2022 TECHNIQUE: Helical, multidetector axial images were obtained from the occiput to the upper thorax. Coronal and sagittal reformats of the cervical spine were provided for interpretation. DLP: 1027 mGy-cm FINDINGS: No acute fractures or dislocations of the cervical spine are seen. Reversal of the normal cervical curvature. Grade 1 anterolisthesis of C4 on C5. Moderate to severe multilevel degenerative changes as space narrowing, endplate sclerosis, anterior bridging osteophyte formation, and facet arthropathy. Anatomic alignment and positioning of the vertebral bodies and posterior elements is noted. The atlantoaxial joint and craniovertebral articulations are normal without evidence of subluxation. There is no prevertebral soft tissue swelling. The thyroid gland and visualized portions of the lung apices and mediastinum are unremarkable. IMPRESSION: 1. No acute visible fracture or dislocation. 2. Reversal of the normal cervical curvature. 3. Grade 1 anterolisthesis of C4 on C5. 4. Moderate to severe multilevel degenerative changes. Head CT 01/11/24 20:39 IMPRESSION: 1. No acute intracranial pathology. 2. Chronic infarct left posterior parietal lobe. 3. Chronic white matter small vessel ischemic changes. EXAMINATION: Noncontrast CT scan of the cervical spine. INDICATION: Fall COMPARISON: CT cervical spine from 08/15/2022 TECHNIQUE: Helical, multidetector axial images were obtained from the occiput to the upper thorax. Coronal and sagittal reformats of the cervical spine were provided for interpretation. DLP: 1027 mGy-cm FINDINGS: No acute fractures or dislocations of the cervical spine are seen. Reversal of the normal cervical curvature. Grade 1 anterolisthesis of C4 on C5. Moderate to severe multilevel degenerative changes as space narrowing, endplate sclerosis, anterior bridging osteophyte formation, and facet arthropathy. Anatomic alignment and positioning of the vertebral bodies and posterior elements is noted. The atlantoaxial joint and craniovertebral articulations are normal without evidence of subluxation. There is no prevertebral soft tissue swelling. The thyroid gland and visualized portions of the lung apices and mediastinum are unremarkable. IMPRESSION: 1. No acute visible fracture or dislocation. 2. Reversal of the normal cervical curvature. 3. Grade 1 anterolisthesis of C4 on C5. 4. Moderate to severe multilevel degenerative changes. Abdomen/Pelvis CT 01/11/24 23:15 IMPRESSION: 1. Mild bilateral hydronephrosis and moderate bilateral hydroureter extending into the pelvis. No ureteral calculi are seen. 2. Urinary bladder wall thickening with indwelling suprapubic catheter in place. 3. Stable 2 cm left adrenal nodule. 4. Retained stool throughout the colon. Diverticula of the descending colon without diverticulitis. 5. Degenerative changes of the thoracolumbar spine with multilevel spinal canal and neuroforaminal narrowing. Fleischner guidelines were followed. Chest X-Ray 01/12/24 00:50 IMPRESSION: Pulmonary vascular congestion. Lingular and bibasilar subsegmental atelectasis or scarring. Assessment and Plan (1) Congestive heart failure: Qualifiers: Heart failure type: diastolic Heart failure chronicity: chronic Qualified Code(s): I50.32 - Chronic diastolic (congestive) heart failure Status: Acute (2) DOROTHY (acute kidney injury): Status: Acute Plan This is a 83-year-old female with pertinent history of congestive heart failure with preserved ejection fraction, permanent atrial fibrillation on Coumadin, CKD stage 3, hypothyroidism, insulin-dependent diabetes mellitus, essential hypertension, neurogenic bladder status post suprapubic catheter who presents to the emergency department for evaluation of a fall. #. Acute mild congestive heart failure with preserved ejection fraction: Will admit patient and initiate IV diuresis. Strict I's and O's. Low-salt diet. Obtaining echocardiogram #. Acute kidney injury on CKD in the setting of above: Monitor creatinine and urine output. Avoid nephrotoxins. #. Bilateral hydroureter with hydronephrosis: Consulting Urology #. Insulin-dependent diabetes mellitus: Initiating Accu-Cheks with sliding scale insulin #. Hypothyroidism: On Synthroid #. Essential hypertension: Continue amlodipine, hold losartan in the setting of DOROTHY #. Permanent atrial fibrillation on Coumadin. Rate controlled in the ER #. Bacteriuria and pyuria: ?colonization in a patient with suprapubic catheter. Defer antibiotics as patient without leukocytosis or fever. No change in color or odor of urine Med rec pending DVT prophylaxis: Coumadin Full code Admit as inpatient and will require two night minimum hospital stay for hemodynamic monitoring with monitoring of volume status, close monitoring of kidney function (as above), which is not possible in a lesser acute setting. Quality Stroke Does the patient have a stroke diagnosis?: No VTE Prior VTE?: No VTE Risk Level:: Medical - moderate - high VTE Device Contraindication: Treatment Not Indicated VTE Drug Contraindication: N/A - Med Ordered
--- NOTE | 2024-01-12 03:02 | PC.NURSE ---
Dr. Porter aware of pt uo. 150mL at this time.
--- NOTE | 2024-01-12 03:33 | PC.NURSE ---
+150mL uo. pt denies abd pain no tenderness noted. vss pt resting comfortably. call zhou within reach.
[2024-01-12] MEDS: Furosemide 40 MG/4 ML VIAL IVPUSH (06:28)
--- NOTE | 2024-01-12 07:00 | CA_ITS ---
Transthoracic Echocardiogram Patient (Last, First, Middle): Belen Brady I Gender: Female Date of : 1940 Age: 83 Procedure Date: 01/12/2024 Procedure Type: Transthoracic Echocardiogram Location: [facility] [place] Height: 170.18 cm Weight: 91.63 kg BSA: 2.03 m2 Heart Rate: bpm BP: 125 / 65 mmHg Stem Lead Former: Referring MD: Sandy Porter MD End Lathe Operator: Lew Herrera MD Symptoms: CHF Study Quality: Good ECG Rhythm: Atrial Fibrillation Conclusions: - 1. Mildly reduced LV ejection fraction 45-50% 2. Mild biatrial enlargement 3. [id number] aortic stenosis and mild mitral regurgitation 4. Upper limits of normal RV systolic pressure 5. No gross pericardial effusion Findings Left Ventricle Normal left ventricular cavity size. There is normal left ventricular wall thickness. The left ventricular systolic function is mildly decreased. The visually estimated ejection fraction is between 45-50%. Diastolic function is indeterminate on the basis of available data. Right Ventricle Normal right ventricular cavity size and systolic function. Atria Mild biatrial enlargement. There is no evidence of interatrial shunt. Aortic Valve There is mild calcification of the aortic valve. There is mild to moderate aortic valve stenosis. The peak aortic gradient is 17 mmHg.The mean gradient is 8 mmHg. There is no aortic valve regurgitation. Mitral Valve There is mild anterior and posterior mitral leaflet thickening. There is mild mitral annular calcification. There is mild mitral valve regurgitation. There is no mitral valve stenosis. Pulmonic Valve The pulmonic valve was not well visualized. Tricuspid Valve Likely normal tricuspid valve structure and function. The right ventricular systolic pressure is 36 mmHg. Normal right atrial pressure. There is no evidence of pulmonary hypertension. Great Vessels The pulmonary artery was not well visualized. There is no dilatation of the ascending aorta measuring 3.30 cm. Venous The inferior vena cava is normal in size and collapses greater than 50% with inspiration. Pericardium/Pleural There is no evidence of pericardial effusion. Prior Study Comparison Changes noted compared to prior study dated: 08/26/2023. RV systolic and right atrial pressures have improved Measurements 2D Linear Measurements IVSd: 0.97 0.6-0.9/0.6-1.0 cm LVIDd: 4.45 3.9-5.3/4.2-5.9 cm LVIDd Index: 2.19 2.4-3.2/2.2-3.1 cm/m2 LVIDs: 3.51 2.0-3.6 cm LVPWd: 1.05 0.7-1.1 cm Ao Root: 2.60 2.1-3.5 cm LA Diam: 3.90 2.7-3.8/3.0-4.0 cm LAIDs Index: 1.92 1.5-2.3 cm/m2 LV Mass: 190.42 67-162/88-224 g LV Mass Index: 93.80 43-95/49-115 g/m2 LVOT Diam: 2.00 3.0+(-)1.3 cm 2D Systolic Function EF 4C: 46.70 >55% EF 2C: 41.20 >55% EF BiP: 45.10 >55% Mitral Valve MV Pk E: 1.38 MV Decel Time: 201.00 E'Lateral: 9.03 E'Medial: 4.57 E/E' Med: 30.20 E/E' Lat: 15.30 PHT: 59.00 MVA PHT: 3.73 Decel [place]: 6.88 Aortic Valve AoV Pk Marcus: 2.04 AoV Mn Marcus: 1.26 AoV VTI: 0.39 AoV Pk Grad: 17.00 Aov Mn Grad: 8.00 ANDI Cont.VTI: 1.19 LVOT LVOT Pk Marcus: 0.73 LVOT Mn Marcus: 0.48 LVOT VTI: 0.15 LVOT Pk Grad: 2.00 LVOT Mn Grad: 1.00 LVOT Diam: 2.00 LVOT Area: 3.14 Diastolic Function MV Pk E: 1.38 E'Medial: 4.57 E/E' Med: 30.20 E' Laterial: 9.03 E/E' Lat: 15.30 Right Ventricle TAPSE (mm): 24.00 TVS' Marcus: 9.00 Tricuspid Valve TR Pk Marcus: 2.88 TR Pk Grad: 33.00 RA Press: 3.00 RVSP: 36.00 Great Vessels Aorta Ao Root-2D: 2.60 2.0-3.7 cm Ao Asc: 3.30 2.1-3.4 cm Pulmonary Valve PV Pk Marcus: 0.77 Peak PV Grad: 2.00 Updated in Other Vendor System with Status of Final Lew Herrera MD electronically signed on 01/12/2024 1:16:57 PM with status of Final
[2024-01-12 07:21] LABS: Glucose, Whole Blood 133 mg/dL (60-115)
[2024-01-12 07:31] VITALS: BP 132/65; PULSE 99; RESP 16; TEMP 36.3; O2SAT 94
[2024-01-12] MEDS: cefTRIAXone sodium 1 GM in 0.9 % Sodium Chloride 50 ML IV (08:29)
[2024-01-12] MEDS: 0.9 % Sodium Chloride Flush 3 ML SYRINGE IVFLUSH ×3 (08:32→21:43)
[2024-01-12 08:41] LABS: Basophils Percent Auto 0.2 % (0-2); Eosinophils Absolute Auto 0.2 X10*3/uL (0.0-0.4); Eosinophils Percent Auto 2.5 % (0-4); Hematocrit 38.4 % (37.0-47.0); Hemoglobin 12.6 g/dl (12.0-16.0); Imm Gran Abs Auto 0.04 X10*3/uL (0.00-0.03); Imm Gran Pct Auto 0.5 % (0.0-0.4); Lymphocytes Absolute Auto 1.5 X10*3/uL (1.2-4.9); Lymphocytes Percent Auto 18.3 % (20-40); MANUAL DIFF FLAG SCAN; Mean Corpuscular HGB Conc 32.8 g/dl (31.0-35.0); Mean Corpuscular Hemoglobin 27.9 pg (27.0-33.0); Mean Corpuscular Volume 85.1 fL (80.0-98.0); Mean Platelet Volume 8.7 fL (9.4-12.3); Monocytes Absolute Auto 1.6 X10*3/uL (0.1-1.2); Monocytes Percent Auto 20.2 % (2-11); Neutrophils Absolute Auto 4.7 x10*3/uL (2.0-8.3); Neutrophils Percent Auto 58.3 % (45-73); Platelet Count 214 X10*3/uL (160-400); Red Blood Count 4.51 X10*6/uL (4.20-5.50); Red Cell Distribution Width 18.4 % (11.0-16.0); SCAN SMEAR FLAG 1
[2024-01-12 08:55] LABS: Anion Gap 13 (12-20); Blood Urea Nitrogen 45 mg/dL (9-16); Carbon Dioxide 21 mmol/L (22-29); Chloride 104 mmol/L (96-108); Creatinine Clr Calc Pharmacy 23.5; Estimated Glomerular Filt Rate 22; Glucose Random 128 mg/dL (60-115); Potassium 4.2 mmol/L (3.3-5.1); Sodium 134 mmol/L (135-145)
[2024-01-12 08:59] LABS: SLIDE REVIEW VERIFIED
[2024-01-12] MEDS: Acetaminophen 325 MG TABLET 650 MG PO (09:07)
--- NOTE | 2024-01-12 09:37 | PHA.MEDREC ---
Pharmacy Consult ? Medication Reconciliation Pharmacy has completed the medication reconciliation. Confirmed medication with daughter Sandra ([phone]) who is her primary caregiver. Sandra reports that her mother takes 37 units of Lantus at bedtime (which differs from original prescription) and has not needed to take the insulin Lispro in at least a month and a half Also reports that she is not taking Clopidogrel 75mg which was recently prescribed on 01/07/24.
[2024-01-12 11:23] LABS: Glucose, Whole Blood 165 mg/dL (60-115)
--- NOTE | 2024-01-12 11:28 | MHC.CM.PN ---
IMM 01/12/24 Female 83 S/P Fall. Her dtr lives with her. She requires assist with ADLs. [facility] provides TELEPHONE MESSENGER services. [facility] is in place. A HCP + Molst are on file. [facility] resume services. One of her daughters will provide transportation home.
[2024-01-12] MEDS: Insulin Lispro 100 UNIT/ML 3 ML VIAL SUBCUT ×2 (12:16→17:01)
--- NOTE | 2024-01-12 14:14 | P.EN_ITS ---
Event Note Date of Service: 01/12/24 Event Note: This is a 83-year-old female with pertinent history of congestive heart failure with preserved ejection fraction, permanent atrial fibrillation on Coumadin, CKD stage 3, hypothyroidism, insulin-dependent diabetes mellitus, essential hypertension, neurogenic bladder status post suprapubic catheter who presents to the emergency department for evaluation of a fall. Acute mild congestive heart failure with preserved ejection fraction no sob or hypoxia Strict I's and O's. Low-salt diet. echocardiogram EF 45-50%, mild biatrial enlargement, similar as previous check BNP in the am Acute kidney injury on CKD in the setting of above creat trending down Monitor creatinine and urine output. Avoid nephrotoxins. Bilateral hydroureter with hydronephrosis Consulting Urology Groin pain ? related to arterial stent, placed at endovascular center in [facility]. good pedal pulses, chronic loss of sensation due to neuropathy no vascular surgery inpatient available apt scheduled for follow up at endovascular center february 28 pain management Insulin-dependent diabetes mellitus Initiating Accu-Cheks with sliding scale insulin Hypothyroidism On Synthroid Essential hypertension Continue amlodipine, hold losartan in the setting of DOROTHY Permanent atrial fibrillation on Coumadin Rate controlled in the ER Bacteriuria and pyuria ?colonization in a patient with suprapubic catheter. Start Rocephin, stop if cx negative DVT prophylaxis: Coumadin Attending Dr. Estrada Full code Admit as inpatient and will require two night minimum hospital stay for hemodynamic monitoring with monitoring of volume status, close monitoring of kidney function (as above), which is not possible in a lesser acute setting. Time Spent With Patient Time: Total time managing care of this patient today ____ minutes.
[2024-01-12] MEDS: Docusate Sodium 100 MG CAPSULE PO ×2 (14:30→21:40)
[2024-01-12] MEDS: polyethylene glycoL 3350 17 GM POWD.PACK PO (14:30)
[2024-01-12 15:24] VITALS: BP 140/58; PULSE 78; RESP 20; TEMP 36.3; O2SAT 99
[2024-01-12 16:22] LABS: Glucose, Whole Blood 151 mg/dL (60-115)
--- NOTE | 2024-01-12 16:44 | HO.WOUND ---
Wound Consult: Initial 83yr old F admitted to [facility] on 01/12/24 - See progress notes and H&P for detailed history.? Wound consult placed for RUE wound POA and Coccyx wound.? Patient agreeable to assessment and photo documentation.? The right upper arm was assessed and is noted to have a pink red blanchable intact dry scaling well defined area. Defer topical treatment to provider to consider etiology. Patient advised to follow up outpatient with Dermatology - she reports understanding. Patient denies itching and symptoms - no topical treatment recommended at this time. Perineal and buttocks assessed for red pink intact moist blanchable tissue - MASD-IAD (Moisture Associated Skin Damage). The patient was incontinent of urine despite Suprapubic in place - chart review reveals provider is aware. Barrier cream applied. Recommendations: 1. Turn and Reposition every 2 hours and as needed for patient comfort.? Use pillows or wedges to support off loading positions. 2. Off Load all bony prominences with use of pillows and heel boots if needed.? Apply Preventative foams where needed. ? 3. Monitor for incontinence and moisture control, use barrier creams when needed for prevention and treatment. 4. Provide adequate and supplemental nutrition.? 5. Order or Continue low air loss mattress. 6. When applicable maintain blood glucose levels per Providers order. 7. Perineal and Buttock - Off Load Pressure - Cleanse with PH balance spray or wipes, pat dry. ?Apply thin layer of barrier cream to wound bed. Reapply thin layer PRN after each episode of incontinence. Re-consult wound care Nurse for wound deterioration or wound changes.
[2024-01-12] MEDS: Warfarin Sodium 2 MG TABLET PO (16:59)
[2024-01-12 19:52] VITALS: BP 140/70; PULSE 96; RESP 18; TEMP 36.9; O2SAT 96
[2024-01-12 20:34] LABS: Glucose, Whole Blood 210 mg/dL (60-115)
[2024-01-12] MEDS: Atorvastatin Calcium 10 MG TABLET PO (21:40)
[2024-01-12] MEDS: Nystatin Powder 15 GM BOTTLE 1 APPL TOPICAL (21:40)
[2024-01-12] MEDS: Valsartan 40 MG TABLET 20 MG PO (21:40)
[2024-01-12] MEDS: Insulin Glargine,Hum.rec.anlog 100 UNIT/ML 10 ML VIAL 37 UNIT SUBCUT (21:42)
[2024-01-12] MEDS: oxyCODONE HCl Immed Release 5 MG TABLET PO (23:38)
[2024-01-13] MEDS: Acetaminophen 325 MG TABLET 650 MG PO (02:53)
[2024-01-13 04:00] VITALS: BP 114/62; PULSE 94; RESP 16; TEMP 36.3; O2SAT 95
[2024-01-13] MEDS: cefTRIAXone sodium 1 GM in 0.9 % Sodium Chloride 50 ML IV (06:47)
[2024-01-13] MEDS: Levothyroxine Sodium 25 MCG TABLET PO (06:47)
[2024-01-13 06:49] LABS: Anion Gap 14 (12-20); Blood Urea Nitrogen 43 mg/dL (9-16); Calcium 8.8 mg/dL (8.4-10.2); Carbon Dioxide 23 mmol/L (22-29); Chloride 103 mmol/L (96-108); Creatinine Clr Calc Pharmacy 23.8; Estimated Glomerular Filt Rate 23; Glucose Random 136 mg/dL (60-115); Potassium 3.9 mmol/L (3.3-5.1); Sodium 136 mmol/L (135-145)
[2024-01-13 06:51] LABS: INTERNATIONAL NORM RATIO 1.6 (0.9-1.1); Prothrombin Time 19.9 SEC (11.1-13.3)
[2024-01-13 06:56] VITALS: BP 132/75; PULSE 91; RESP 17; TEMP 36.1; O2SAT 96
[2024-01-13 06:59] LABS: B Type Natriuretic Peptide 521 pg/mL (<100)
[2024-01-13 07:07] LABS: Glucose, Whole Blood 133 mg/dL (60-115)
[2024-01-13] MEDS: 0.9 % Sodium Chloride Flush 3 ML SYRINGE IVFLUSH ×3 (07:49→20:48)
[2024-01-13] MEDS: amLODIPine Besylate 5 MG TABLET PO (07:49)
[2024-01-13] MEDS: Furosemide 40 MG TABLET PO (07:49)
[2024-01-13] MEDS: Multivitamin TABLET 1 TAB PO (07:49)
[2024-01-13] MEDS: Docusate Sodium 100 MG CAPSULE PO ×2 (07:50→20:46)
[2024-01-13] MEDS: Metoprolol Succinate ER 100 MG TAB.ER.24H 200 MG PO (07:50)
[2024-01-13] MEDS: Valsartan 40 MG TABLET 20 MG PO ×2 (07:50→20:45)
[2024-01-13] MEDS: Aspirin Enteric Coated 81 MG TABLET.DR PO (07:50)
[2024-01-13] MEDS: polyethylene glycoL 3350 17 GM POWD.PACK PO ×2 (07:51→20:46)
[2024-01-13] MEDS: Nystatin Powder 15 GM BOTTLE 1 APPL TOPICAL ×4 (07:53→22:18)
[2024-01-13 11:02] LABS: Glucose, Whole Blood 233 mg/dL (60-115)
[2024-01-13] MEDS: Insulin Lispro 100 UNIT/ML 3 ML VIAL SUBCUT ×3 (11:50→20:47)
[2024-01-13] MEDS: oxyCODONE HCl Immed Release 5 MG TABLET PO ×2 (11:51→18:12)
--- NOTE | 2024-01-13 13:54 | HO.PM.IMPN ---
Subjective Subjective Date of Service: 01/13/24 Interval History: Still complaining of groin pain on the right. Breathing at baseline Review of Systems Denies chest pain Denies shortness of breath Denies nausea vomiting diarrhea Denies fever chills Physical Exam Vital Signs: Vital Signs: Last Vital Signs Temp 96.9 F 01/13/24 06:56 Pulse 91 01/13/24 06:56 Resp 17 01/13/24 06:56 BP 132/75 01/13/24 06:56 Pulse Ox 96 01/13/24 06:56 O2 Del Method Room Air 01/13/24 06:56 BMI result Body Mass Index 31.8 Const: Other: Awake alert no acute distress Resp: Other: Clear to auscultation bilaterally no rales rhonchi wheezes Cardio: Other: No S4; positive S1-S2; no S3 murmurs rubs or gallops Extrem: Other: Bilateral pedal edema Objective Data Active Medications Acetaminophen (Acetaminophen 325 Mg Tablet) 650 mg PO Q6H PRN PRN Reason: Pain, Mild (Pain Scale 1-3) Last Admin: 01/13/24 02:53 Dose: 650 mg Documented By: NAY Amlodipine Besylate (Amlodipine Besylate 5 Mg Tablet) 5 mg PO DAILY [facility]; Protocol Last Admin: 01/13/24 07:49 Dose: 5 mg Documented By: LAZARA Aspirin (Aspirin Enteric Coated 81 Mg Tablet.Dr) 81 mg PO DAILY [facility] Last Admin: 01/13/24 07:50 Dose: 81 mg Documented By: LAZARA Atorvastatin Calcium (Atorvastatin Calcium 10 Mg Tablet) 10 mg PO BEDTIME [facility] Last Admin: 01/12/24 21:40 Dose: 10 mg Documented By: NAY Dextrose (Dextrose 50 % 25 Gm/50 Ml Syringe) 25 gm IVPUSH Q15M PRN; Protocol PRN Reason: per Hypoglycemia Standing Ord. Docusate Sodium (Docusate Sodium 100 Mg Capsule) 100 mg PO BID [facility] Last Admin: 01/13/24 07:50 Dose: 100 mg Documented By: LAZARA Furosemide (Furosemide 40 Mg Tablet) 40 mg PO DAILY [facility]; Protocol Last Admin: 01/13/24 07:49 Dose: 40 mg Documented By: LAZARA Glucose (Glucose Gel 15 Gm Gel..Gram.) 15 gm PO Q15M PRN; Protocol PRN Reason: per Hypoglycemia Standing Ord. Ceftriaxone Sodium 1 gm/ (Sodium Chloride) 50 mls @ 100 mls/hr IV Q24H [facility] Last Infusion: 01/13/24 07:35 Dose: Infused Documented By: LAZARA Insulin Glargine (Insulin Glargine,Hum.Rec.Anlog 100 Unit/Ml 10 Ml Vial) 37 unit SUBCUT BEDTIME [facility] Last Admin: 01/12/24 21:42 Dose: 37 unit Documented By: NAY Insulin Human Lispro (Insulin Lispro 100 Unit/Ml 3 Ml Vial) 0 unit SUBCUT QIDACHS [facility]; Protocol Last Admin: 01/13/24 11:50 Dose: 4 unit Documented By: LAZARA Levothyroxine Sodium (Levothyroxine Sodium 25 Mcg Tablet) 25 mcg PO DAILY@0600 [facility] Last Admin: 01/13/24 06:47 Dose: 25 mcg Documented By: NAY Magnesium Hydroxide (Milk Of Magnesia 30 Ml Oral.Susp) 15 ml PO BID PRN PRN Reason: Constipation Melatonin (Melatonin 3 Mg Tablet) 6 mg PO BEDTIME PRN PRN Reason: Insomnia Metoprolol Succinate (Metoprolol Succinate Er 100 Mg Tab.Er.24h) 200 mg PO DAILY [facility]; Protocol Last Admin: 01/13/24 07:50 Dose: 200 mg Documented By: LAZARA Multivitamins/Vitamin C (Multivitamin Tablet) 1 tab PO DAILY [facility] Last Admin: 01/13/24 07:49 Dose: 1 tab Documented By: LAZARA Nystatin (Nystatin Powder 15 Gm Bottle) 1 appl TOPICAL TID [facility]; Protocol Last Admin: 01/13/24 07:53 Dose: 1 appl Documented By: LAZARA Nystatin (Nystatin Powder 15 Gm Bottle) 1 appl TOPICAL BID [facility]; Protocol Last Admin: 01/13/24 07:53 Dose: Not Given Documented By: LAZARA Non-Admin Reason: Duplicate Order Ondansetron HCl (Ondansetron Hcl 4 Mg/2 Ml Vial) 4 mg IVPUSH Q8H PRN PRN Reason: Nausea and Vomiting Oxycodone HCl (Oxycodone Hcl Immed Release 5 Mg Tablet) 5 mg PO Q4H PRN PRN Reason: Pain, Moderate(Pain Scale 4-6) Last Admin: 03/13/24 11:51 Dose: 5 mg Documented By: LAZARA Polyethylene Glycol (Polyethylene Glycol 3350 17 Gm Powd.Pack) 17 gm PO BID [facility] Last Admin: 01/13/24 07:51 Dose: 17 gm Documented By: LAZARA Sodium Chloride (0.9 % Sodium Chloride Flush 3 Ml Syringe) 3 ml IVFLUSH QSHIFT [facility] Last Admin: 01/13/24 07:49 Dose: 3 ml Documented By: LAZARA Valsartan (Valsartan 40 Mg Tablet) 20 mg PO BID [facility]; Protocol Last Admin: 01/13/24 07:50 Dose: 20 mg Documented By: LAZARA Warfarin Sodium (Warfarin Sodium 1 Mg Tablet) 1 mg PO MoWeFr@1800 [facility] Warfarin Sodium (Warfarin Sodium 2 Mg Tablet) 2 mg PO SuTuThSa@1800 [facility] Last Admin: 01/12/24 16:59 Dose: 2 mg Documented By: TREY Labs 01/12/24 08:23 01/13/24 06:08 Labs: Laboratory Results - last 24 hr 01/12/24 01/12/24 01/13/24 16:18 20:10 06:08 PT 19.9 H INR 1.6 H Anion Gap 14 Estim Creat Clear Calc 23.8 Estimated GFR 23 POC Glucose 151 H 210 H Random Glucose 136 H Calcium 8.8 B-Natriuretic Peptide 521 H 01/13/24 01/13/24 07:00 10:59 PT INR Anion Gap Estim Creat Clear Calc Estimated GFR POC Glucose 133 H 233 H Random Glucose Calcium B-Natriuretic Peptide Microbiology Microbiology Results: Microbiology 01/12/24 Unknown Urine Culture - Final Urine Other - Suprapubic Assessment and Plan (1) DOROTHY (acute kidney injury): Status: Acute (2) Congestive heart failure: Status: Acute (3) PAF (paroxysmal atrial fibrillation): Status: Acute Plan This is a 83-year-old female with pertinent history of congestive heart failure with preserved ejection fraction, permanent atrial fibrillation on Coumadin, CKD stage 3, hypothyroidism, insulin-dependent diabetes mellitus, essential hypertension, neurogenic bladder status post suprapubic catheter who presents to the emergency department for evaluation of a fall. 1.HFpEF -continue IV diuresis times 24 hours -echo results noted -cardiology consult in a.m. 2.DOROTHY on CKD 3 -creatinine stable.. Questionable obstructive component in a.m. -follow renals/divalents 3.Bilateral hydroureter with hydronephrosis -follow renals/divalents -urology consult in a.m. 4.UTI.. Prelim GNR -continue ceftriaxone (2 ) -await formal cultures 5.Insulin-dependent diabetes mellitus -acceptable control on current therapies -lispro correctional scale -adjust as indicated 6.Essential hypertension -acceptable control off losartan -adjust as indicated 7. Paroxysmal atrial fibrillation -EKG -continue Coumadin as ordered 8. Right groin pain -follow clinically -if persist question IR consultation Coumadin Full code Requires ongoing hospitalization for IV diuresis and specialty consult related to heart failure as well as urology consultation for hydroureter Quality Stroke Does the patient have a stroke diagnosis?: No VTE Prior VTE?: No VTE Risk Level:: Medical - moderate - high VTE Device Contraindication: Treatment Not Indicated VTE Drug Contraindication: N/A - Med Ordered
[2024-01-13 16:00] VITALS: BP 117/62; PULSE 86; RESP 17; TEMP 36.3; O2SAT 96
[2024-01-13 16:53] LABS: Glucose, Whole Blood 170 mg/dL (60-115)
[2024-01-13] MEDS: Warfarin Sodium 1 MG TABLET PO (18:11)
[2024-01-13 20:00] VITALS: BP 116/77; PULSE 100; RESP 18; TEMP 36.4; O2SAT 95
[2024-01-13 20:34] LABS: Glucose, Whole Blood 212 mg/dL (60-115)
[2024-01-13] MEDS: Atorvastatin Calcium 10 MG TABLET PO (20:45)
[2024-01-13] MEDS: Insulin Glargine,Hum.rec.anlog 100 UNIT/ML 10 ML VIAL 37 UNIT SUBCUT (20:47)
[2024-01-14 04:00] VITALS: BP 119/68; PULSE 95; RESP 16; TEMP 36; O2SAT 99
[2024-01-14] MEDS: Levothyroxine Sodium 25 MCG TABLET PO (05:08)
[2024-01-14 05:52] LABS: MANUAL DIFF FLAG NO
[2024-01-14 06:14] LABS: INTERNATIONAL NORM RATIO 1.7 (0.9-1.1); Prothrombin Time 20.2 SEC (11.1-13.3)
[2024-01-14 06:17] LABS: Alanine Aminotransferase 18 U/L (0-31); Alkaline Phosphatase 175 U/L (39-117); Anion Gap 12 (12-20); Aspartate Amino Transferase 28 U/L (5-31); Bilirubin Total 0.5 mg/dL (0.0-1.0); Blood Urea Nitrogen 42 mg/dL (9-16); Calcium 8.8 mg/dL (8.4-10.2); Carbon Dioxide 25 mmol/L (22-29); Chloride 103 mmol/L (96-108); Creatinine Clr Calc Pharmacy 27.4; Estimated Glomerular Filt Rate 27; Glucose Fasting 112 mg/dL (60-99); Potassium 4.1 mmol/L (3.3-5.1); Sodium 136 mmol/L (135-145); Total Protein 7.5 g/dL (6.5-8.0)
[2024-01-14 06:18] LABS: Basophils Percent Auto 0.4 % (0-2); Eosinophils Absolute Auto 0.4 X10*3/uL (0.0-0.4); Eosinophils Percent Auto 4.8 % (0-4); Hematocrit 36.7 % (37.0-47.0); Hemoglobin 11.8 g/dl (12.0-16.0); Imm Gran Abs Auto 0.14 X10*3/uL (0.00-0.03); Imm Gran Pct Auto 1.7 % (0.0-0.4); Lymphocytes Absolute Auto 1.4 X10*3/uL (1.2-4.9); Lymphocytes Percent Auto 16.9 % (20-40); Mean Corpuscular HGB Conc 32.2 g/dl (31.0-35.0); Mean Corpuscular Hemoglobin 27.6 pg (27.0-33.0); Mean Corpuscular Volume 85.7 fL (80.0-98.0); Mean Platelet Volume 9.1 fL (9.4-12.3); Monocytes Absolute Auto 1.3 X10*3/uL (0.1-1.2); Monocytes Percent Auto 16.3 % (2-11); Neutrophils Absolute Auto 4.9 x10*3/uL (2.0-8.3); Neutrophils Percent Auto 59.9 % (45-73); Platelet Count 265 X10*3/uL (160-400); Red Blood Count 4.28 X10*6/uL (4.20-5.50); Red Cell Distribution Width 18.6 % (11.0-16.0); White Blood Count 8.2 X10*3/uL (4.8-10.8)
[2024-01-14 07:46] VITALS: BP 120/58; PULSE 100; RESP 18; TEMP 36.4; O2SAT 97
[2024-01-14 07:48] LABS: Glucose, Whole Blood 115 mg/dL (60-115)
[2024-01-14] MEDS: cefTRIAXone sodium 1 GM in 0.9 % Sodium Chloride 50 ML IV (08:23)
[2024-01-14] MEDS: Multivitamin TABLET 1 TAB PO (08:27)
[2024-01-14] MEDS: Valsartan 40 MG TABLET 20 MG PO (08:27)
[2024-01-14] MEDS: amLODIPine Besylate 5 MG TABLET PO (08:27)
[2024-01-14] MEDS: Docusate Sodium 100 MG CAPSULE PO ×2 (08:27→20:57)
[2024-01-14] MEDS: Aspirin Enteric Coated 81 MG TABLET.DR PO (08:27)
[2024-01-14] MEDS: polyethylene glycoL 3350 17 GM POWD.PACK PO ×2 (08:27→20:57)
[2024-01-14] MEDS: Metoprolol Succinate ER 100 MG TAB.ER.24H 200 MG PO (08:27)
[2024-01-14] MEDS: Furosemide 40 MG TABLET PO (08:27)
[2024-01-14] MEDS: Nystatin Powder 15 GM BOTTLE 1 APPL TOPICAL ×2 (08:27→22:05)
[2024-01-14] MEDS: oxyCODONE HCl Immed Release 5 MG TABLET PO (08:44)
[2024-01-14 11:35] LABS: Glucose, Whole Blood 207 mg/dL (60-115)
[2024-01-14] MEDS: Insulin Lispro 100 UNIT/ML 3 ML VIAL SUBCUT ×3 (11:50→22:04)
--- NOTE | 2024-01-14 14:46 | P.PNIM_ITS ---
Subjective Subjective Date of Service: 01/14/24 Interval History: seen and examined this morning follow up for fall, CHF reporting ongoing groin pain no sob Review of Systems Review of Systems: Yes all other systems are reviewed and are negative Constitutional Constitutional: Denies chills and Denies fever(s) Cardiovascular Cardiovascular: Denies chest pain and Denies dyspnea Respiratory Respiratory: Denies dyspnea Physical Exam 2 Vital Signs: Vital Signs: Last Vital Signs Temp 97.6 F 01/14/24 07:46 Pulse 100 01/14/24 07:46 Resp 18 01/14/24 07:46 BP 120/58 L 01/14/24 07:46 Pulse Ox 97 01/14/24 07:46 O2 Del Method Room Air 01/14/24 07:46 BMI result Body Mass Index 31.8 Const: General: cooperative, comfortable, no acute distress, alert and awake Nutritional Appearance: overweight Orientation/consciousness: patient oriented x3 Resp: Effort & Inspection: normal respiratory effort, able to speak in complete sentences, no respiratory distress and no use of accessory muscles Cardio: Rate: regular rate GI: Inspection: No distended Palpation (GI): Soft to palpation and nontender : Other: suprapubic catheter in place Neuro: General: patient oriented x3, moves all extremities and CN's II-XI intact bilaterally Extrem: General: Yes no pedal edema Objective Data Active Medications Acetaminophen (Acetaminophen 325 Mg Tablet) 650 mg PO Q6H PRN PRN Reason: Pain, Mild (Pain Scale 1-3) Last Admin: 01/13/24 02:53 Dose: 650 mg Documented By: NAY Amlodipine Besylate (Amlodipine Besylate 5 Mg Tablet) 5 mg PO DAILY [facility]; Protocol Last Admin: 01/14/24 08:27 Dose: 5 mg Documented By: CHRISTOPHER Aspirin (Aspirin Enteric Coated 81 Mg Tablet.) 81 mg PO DAILY [facility] Last Admin: 01/14/24 08:27 Dose: 81 mg Documented By: CHRISTOPHER Atorvastatin Calcium (Atorvastatin Calcium 10 Mg Tablet) 10 mg PO BEDTIME [facility] Last Admin: 01/13/24 20:45 Dose: 10 mg Documented By: IRMA Dextrose (Dextrose 50 % 25 Gm/50 Ml Syringe) 25 gm IVPUSH Q15M PRN; Protocol PRN Reason: per Hypoglycemia Standing Ord. Docusate Sodium (Docusate Sodium 100 Mg Capsule) 100 mg PO BID [facility] Last Admin: 01/14/24 08:27 Dose: 100 mg Documented By: CHRISTOPHER Furosemide (Furosemide 40 Mg Tablet) 40 mg PO DAILY [facility]; Protocol Last Admin: 01/14/24 08:27 Dose: 40 mg Documented By: CHRISTOPHER Glucose (Glucose Gel 15 Gm Gel..Gram.) 15 gm PO Q15M PRN; Protocol PRN Reason: per Hypoglycemia Standing Ord. Ceftriaxone Sodium 1 gm/ (Sodium Chloride) 50 mls @ 100 mls/hr IV Q24H [facility] Last Infusion: 01/14/24 09:05 Dose: Infused Documented By: CHRISTOPHER Insulin Glargine (Insulin Glargine,Hum.Rec.Anlog 100 Unit/Ml 10 Ml Vial) 37 unit SUBCUT BEDTIME [facility] Last Admin: 01/13/24 20:47 Dose: 37 unit Documented By: IRMA Insulin Human Lispro (Insulin Lispro 100 Unit/Ml 3 Ml Vial) 0 unit SUBCUT QIDACHS [facility]; Protocol Last Admin: 01/14/24 11:50 Dose: 4 unit Documented By: CHRISTOPHER Levothyroxine Sodium (Levothyroxine Sodium 25 Mcg Tablet) 25 mcg PO DAILY@0600 [facility] Last Admin: 01/14/24 05:08 Dose: 25 mcg Documented By: IRMA Magnesium Hydroxide (Milk Of Magnesia 30 Ml Oral.Susp) 15 ml PO BID PRN PRN Reason: Constipation Melatonin (Melatonin 3 Mg Tablet) 6 mg PO BEDTIME PRN PRN Reason: Insomnia Metoprolol Succinate (Metoprolol Succinate Er 100 Mg Tab.Er.24h) 200 mg PO DAILY [facility]; Protocol Last Admin: 01/14/24 08:27 Dose: 200 mg Documented By: CHRISTOPHER Multivitamins/Vitamin C (Multivitamin Tablet) 1 tab PO DAILY [facility] Last Admin: 01/14/24 08:27 Dose: 1 tab Documented By: CHRISTOPHER Nystatin (Nystatin Powder 15 Gm Bottle) 1 appl TOPICAL TID [facility]; Protocol Last Admin: 01/14/24 14:02 Dose: Not Given Documented By: CHRISTOPHER Non-Admin Reason: pt resting Nystatin (Nystatin Powder 15 Gm Bottle) 1 appl TOPICAL BID [facility]; Protocol Last Admin: 01/14/24 08:27 Dose: 1 appl Documented By: CHRISTOPHER Ondansetron HCl (Ondansetron Hcl 4 Mg/2 Ml Vial) 4 mg IVPUSH Q8H PRN PRN Reason: Nausea and Vomiting Oxycodone HCl (Oxycodone Hcl Immed Release 5 Mg Tablet) 5 mg PO Q4H PRN PRN Reason: Pain, Moderate(Pain Scale 4-6) Last Admin: 01/14/24 08:44 Dose: 5 mg Documented By: CHRISTOPHER Polyethylene Glycol (Polyethylene Glycol 3350 17 Gm Powd.Pack) 17 gm PO BID [facility] Last Admin: 01/14/24 08:27 Dose: 17 gm Documented By: CHRISTOPHER Sodium Chloride (0.9 % Sodium Chloride Flush 3 Ml Syringe) 3 ml IVFLUSH QSHIFT [facility] Last Admin: 01/14/24 13:25 Dose: Not Given Documented By: CHRISTOPHER Non-Admin Reason: See Note Valsartan (Valsartan 40 Mg Tablet) 20 mg PO BID [facility]; Protocol Last Admin: 01/14/24 08:27 Dose: 20 mg Documented By: CHRISTOPHER Warfarin Sodium (Warfarin Sodium 1 Mg Tablet) 1 mg PO MoWeFr@1800 [facility] Last Admin: 01/13/24 18:11 Dose: 1 mg Documented By: LAZARA Warfarin Sodium (Warfarin Sodium 2 Mg Tablet) 2 mg PO SuTuThSa@1800 [facility] Last Admin: 01/12/24 16:59 Dose: 2 mg Documented By: RTEY Labs 01/14/24 05:08 01/14/24 05:08 Labs: Laboratory Results - last 24 hr 01/13/24 01/13/24 01/14/24 16:45 20:24 05:08 MCV 85.7 MCH 27.6 MCHC 32.2 RDW 18.6 H Plt Count 265 MPV 9.1 L Immature Gran % (Auto) 1.7 H Neut % (Auto) 59.9 Lymph % (Auto) 16.9 L [place] % (Auto) 16.3 H Eos % (Auto) 4.8 H Baso % (Auto) 0.4 Lymph # (Auto) 1.4 [place] # (Auto) 1.3 H Eos # (Auto) 0.4 Baso # (Auto) 0.0 Abs Immat Gran (auto) 0.14 H Absolute Neuts (auto) 4.9 Absolute Nucleated RBC 0.000 Nucleated RBC % (auto) 0.0 PT 20.2 H INR 1.7 H Anion Gap 12 Estim Creat Clear Calc 27.4 Estimated GFR 27 POC Glucose 170 H 212 H Fasting Glucose 112 H Calcium 8.8 Total Bilirubin 0.5 AST 28 ALT 18 Alkaline Phosphatase 175 H Total Protein 7.5 Albumin 3.0 L 01/14/24 01/14/24 07:34 11:26 MCV MCH MCHC RDW Plt Count MPV Immature Gran % (Auto) Neut % (Auto) Lymph % (Auto) [place] % (Auto) Eos % (Auto) Baso % (Auto) Lymph # (Auto) [place] # (Auto) Eos # (Auto) Baso # (Auto) Abs Immat Gran (auto) Absolute Neuts (auto) Absolute Nucleated RBC Nucleated RBC % (auto) PT INR Anion Gap Estim Creat Clear Calc Estimated GFR POC Glucose 115 207 H Fasting Glucose Calcium Total Bilirubin AST ALT Alkaline Phosphatase Total Protein Albumin Assessment and Plan (1) DOROTHY (acute kidney injury): Status: Acute Plan This is a 83-year-old female with pertinent history of congestive heart failure with preserved ejection fraction, permanent atrial fibrillation on Coumadin, CKD stage 3, hypothyroidism, insulin-dependent diabetes mellitus, essential hypertension, neurogenic bladder status post suprapubic catheter who presents to the emergency department for evaluation of a fall found to be in chf 1.HFpEF transitioned to po lasix echo results noted seen by cardiology - no further work up required 2.DOROTHY on CKD 3 improving but still remains above baseline will hold losartan for now d/w urology - has suprapubic catheter - has outpatient follow up appt follow renal function 3.Bilateral hydroureter with hydronephrosis No further workup per Urology, recommend outpatient follow-up as scheduled 4.UTI urine culture negative stop ceftriaxone 5.Insulin-dependent diabetes mellitus -acceptable control on current therapies -lispro correctional scale -adjust as indicated 6.Essential hypertension hold losartan for DOROTHY continue norvasc, toprol xl 7. Paroxysmal atrial fibrillation continue Coumadin as ordered follow INR 8. Right groin pain ? related to arterial stent, placed at endovascular center in [facility] - has outpt follow up scheduled CT abdomen/pelvis, no obvious cause of pain hip/pelvis xray no acute fracture of malalignment pt evaluation pending for safe disposition Coumadin Full code Requires ongoing hospitalization for safe disposition, close monitoring of renal function Quality Stroke Does the patient have a stroke diagnosis?: No VTE Prior VTE?: No VTE Risk Level:: Medical - moderate - high VTE Device Contraindication: Treatment Not Indicated VTE Drug Contraindication: N/A - Med Ordered
[2024-01-14 15:35] VITALS: BP 119/59; PULSE 82; RESP 18; TEMP 36.4; O2SAT 95
[2024-01-14 17:16] LABS: Glucose, Whole Blood 164 mg/dL (60-115)
[2024-01-14] MEDS: Warfarin Sodium 2 MG TABLET PO (17:34)
--- NOTE | 2024-01-14 18:36 | P.CONCA_ITS ---
History of Present Illness History of Present Illness Date of Service: 01/14/24 Requesting physician: Kel Jacobs Consult reason: other (Management of cardiovascular disease) Chief complaint: Fall Narrative: I was advised to see Belen in cardiology consultation for management of her cardiovascular disease given her prior cardiovascular history and echocardiographic findings. Patient came to the hospital with severe right groin pain and fall. Patient said she underwent peripheral vascular procedure and since then she has been having right groin pain. This has been evaluated, causes unknown. Patient came in and noted to have acute kidney injury. Patient denies any overt cardiac symptoms of shortness of breath, orthopnea, PND. There is no evidence of hypoxemia. Echocardiogram done yesterday showed mild LV systolic dysfunction with mild biatrial enlargement with [id number] aortic stenosis and mild mitral regurgitation with improved RV systolic and right atrial pressures compared to prior study. Patient denies any orthopnea, PND, leg edema. She is currently still maintained on oral diuretic therapy with Lasix and also on valsartan therapy. Review of Systems 2 Constitutional: Constitutional: Reports weakness Eyes: Eyes: Reports no additional eye complaints Cardiovascular: Cardiovascular: Reports no additional cardiovascular complaints Respiratory: Respiratory: Reports no additional respiratory complaints Gastrointestinal: Gastrointestinal: Reports no additional gastrointestinal complaints Musculoskeletal: Musculoskeletal: Reports other (Significant right groin pain) Integumentary/Breasts: Skin/Breast: Reports system reviewed and no additional complaints, except as docu Neurologic: Reports weakness Psychiatric: Psychiatric: Reports no additional psychiatric complaints COUNTS INCLUDE 234 BEDS AT THE [facility] Past Medical History Medical History DOROTHY (acute kidney injury) Atrial fibrillation Neuropathy Neurogenic bladder CVA (cerebral vascular accident) Shingles Elevated cholesterol Myocardial infarction MRSA infection Hip pain Leg wound, left Varicose vein of leg Osteoarthritis of right hip Current use of anticoagulant therapy Recurrent UTI Atrial fibrillation PAF (paroxysmal atrial fibrillation) Congestive heart failure Urinary incontinence Hypothyroidism Diabetes Hypertension CKD (chronic kidney disease) CAD (coronary artery disease) Hypotonic neurogenic bladder Family History Family History Father Hx of angina pectoris Myocardial infarction Mother Ovarian cancer Stomach cancer Maternal Grandfather Hardening of the arteries of the heart Surgical History Surgical History History of left knee replacement History of right knee joint replacement H/O heart artery stent H/O nasal polypectomy History of tubal ligation History of tonsillectomy and adenoidectomy Hx of cholecystectomy Social History Social History Household Members: Children Household Members Other:: daughter Housing: House Are you a primary critical care rn to a significant other at home: No Do you presently have visiting nurse or other home services: Yes Alcohol intake: never Comment: [facility] Patient Tobacco Use Status: Never used Tobacco Second Hand Smoke Exposure: No Advance Directives Date on File: 08/27/22 service: No Current occupational status: retired [employer] Allergies Allergy/AdvReac Type Severity Reaction Status Date / Time No Known Allergies Allergy Verified 01/08/24 14:33 [No Known Allergies*] Active Medications: Current Medications Acetaminophen (Acetaminophen 325 Mg Tablet) 650 mg PO Q6H PRN PRN Reason: Pain, Mild (Pain Scale 1-3) Last Admin: 01/13/24 02:53 Dose: 650 mg Amlodipine Besylate (Amlodipine Besylate 5 Mg Tablet) 5 mg PO DAILY [facility]; Protocol Last Admin: 01/14/24 08:27 Dose: 5 mg Aspirin (Aspirin Enteric Coated 81 Mg Tablet.Dr) 81 mg PO DAILY [facility] Last Admin: 01/14/24 08:27 Dose: 81 mg Atorvastatin Calcium (Atorvastatin Calcium 10 Mg Tablet) 10 mg PO BEDTIME SUN Last Admin: 01/13/24 20:45 Dose: 10 mg Dextrose (Dextrose 50 % 25 Gm/50 Ml Syringe) 25 gm IVPUSH Q15M PRN; Protocol PRN Reason: per Hypoglycemia Standing Ord. Docusate Sodium (Docusate Sodium 100 Mg Capsule) 100 mg PO BID SUN Last Admin: 01/14/24 08:27 Dose: 100 mg Furosemide (Furosemide 40 Mg Tablet) 40 mg PO DAILY [facility]; Protocol Last Admin: 01/14/24 08:27 Dose: 40 mg Glucose (Glucose Gel 15 Gm Gel..Gram.) 15 gm PO Q15M PRN; Protocol PRN Reason: per Hypoglycemia Standing Ord. Insulin Glargine (Insulin Glargine,Hum.Rec.Anlog 100 Unit/Ml 10 Ml Vial) 37 unit SUBCUT BEDTIME SUN Last Admin: 01/13/24 20:47 Dose: 37 unit Insulin Human Lispro (Insulin Lispro 100 Unit/Ml 3 Ml Vial) 0 unit SUBCUT QIDACHS [facility]; Protocol Last Admin: 01/14/24 17:34 Dose: 2 unit Levothyroxine Sodium (Levothyroxine Sodium 25 Mcg Tablet) 25 mcg PO DAILY@0600 [facility] Last Admin: 01/14/24 05:08 Dose: 25 mcg Magnesium Hydroxide (Milk Of Magnesia 30 Ml Oral.Susp) 15 ml PO BID PRN PRN Reason: Constipation Melatonin (Melatonin 3 Mg Tablet) 6 mg PO BEDTIME PRN PRN Reason: Insomnia Metoprolol Succinate (Metoprolol Succinate Er 100 Mg Tab.Er.24h) 200 mg PO DAILY [facility]; Protocol Last Admin: 01/14/24 08:27 Dose: 200 mg Multivitamins/Vitamin C (Multivitamin Tablet) 1 tab PO DAILY [facility] Last Admin: 01/14/24 08:27 Dose: 1 tab Nystatin (Nystatin Powder 15 Gm Bottle) 1 appl TOPICAL TID [facility]; Protocol Last Admin: 01/14/24 14:02 Dose: Not Given Nystatin (Nystatin Powder 15 Gm Bottle) 1 appl TOPICAL BID [facility]; Protocol Last Admin: 01/14/24 08:27 Dose: 1 appl Ondansetron HCl (Ondansetron Hcl 4 Mg/2 Ml Vial) 4 mg IVPUSH Q8H PRN PRN Reason: Nausea and Vomiting Oxycodone HCl (Oxycodone Hcl Immed Release 5 Mg Tablet) 5 mg PO Q4H PRN PRN Reason: Pain, Moderate(Pain Scale 4-6) Last Admin: 01/14/24 08:44 Dose: 5 mg Polyethylene Glycol (Polyethylene Glycol 3350 17 Gm Powd.Pack) 17 gm PO BID [facility] Last Admin: 01/14/24 08:27 Dose: 17 gm Sodium Chloride (0.9 % Sodium Chloride Flush 3 Ml Syringe) 3 ml IVFLUSH QSHIFT [facility] Last Admin: 01/14/24 13:25 Dose: Not Given Valsartan (Valsartan 40 Mg Tablet) 20 mg PO BID [facility]; Protocol Last Admin: 01/14/24 08:27 Dose: 20 mg Warfarin Sodium (Warfarin Sodium 1 Mg Tablet) 1 mg PO MoWeFr@1800 [facility] Last Admin: 01/13/24 18:11 Dose: 1 mg Warfarin Sodium (Warfarin Sodium 2 Mg Tablet) 2 mg PO SuTuThSa@1800 [facility] Last Admin: 01/14/24 17:34 Dose: 2 mg Home Medications Medication Instructions Recorded Confirmed Last Taken Type levothyroxine 25 mcg tablet 25 mcg PO DAILY 09/05/20 01/12/24 01/11/24 History aspirin 81 mg tablet,delayed 81 mg PO DAILY 09/11/21 01/12/24 01/11/24 History release pen needle, diabetic 32 gauge x #50 ea 12/31/21 12/18/23 Unknown History (BD Cathy 2nd Gen Pen Needle) multivitamin (One Daily 1 tab PO DAILY 09/15/22 01/12/24 01/11/24 History Multivitamin tablet) lancets 28 gauge (FreeStyle #100 ea 09/29/22 12/18/23 Unknown History Lancets) vitamins A,C,G-leim-vunvcs 2,148 1 tab PO BIDWM 05/09/23 01/12/24 01/11/24 History mcg-113 mg-45 mg-17.4 mg tablet (PreserVision AREDS) melatonin 5 mg tablet 10 mg PO BEDTIME PRN Sleep 06/04/23 01/12/24 01/11/24 History amlodipine 5 mg tablet 5 mg PO DAILY 11/13/23 01/12/24 01/11/24 History insulin glargine 100 unit/mL 37 unit subcut BEDTIME 01/12/24 01/12/24 01/11/24 History subcutaneous solution (Lantus U-100 Insulin) warfarin 1 mg tablet 1 mg PO MOWEFR 01/12/24 01/12/24 01/11/24 History warfarin 2 mg tablet 2 mg PO SUTUTHSA 01/12/24 01/11/24 History warfarin 2 mg tablet 2 mg PO SUTUTHSA 01/12/24 01/12/24 01/11/24 History Physical Exam 2 Vital Signs: Vital Signs: Last Vital Signs Temp 97.5 F 01/14/24 15:35 Pulse 82 01/14/24 15:35 Resp 18 01/14/24 15:35 BP 119/59 L 01/14/24 15:35 Pulse Ox 95 01/14/24 15:35 O2 Del Method Room Air 01/14/24 15:35 BMI result Body Mass Index 31.8 Const: General: cooperative, alert, awake and in distress mild and other (Due to pain) Nutritional Appearance: obese Orientation/consciousness: patient oriented x3 HEENT: Head: Yes normocephalic and Yes atraumatic Neck: Neck: Yes trachea midline, Yes supple and Yes no JVD Resp: Effort & Inspection: decreased respiratory effort Auscultation: clear to auscultation bilaterally Cardio: Jugular venous distension: no JVD Rhythm: abnormal rhythm irregularly irregular Heart sounds: S1 normal heart sound present, S2 normal heart sound present, no click, no gallops and Murmur heart sound present systolic mid, decrescendo and crescendo GI: Auscultation: normal bowel sounds Skin: General skin exam: no rashes or lesions noted Neuro: General: patient oriented x3 and no focal motor deficits Extrem: General: Yes no clubbing, cyanosis or edema Objective Labs and Meds 01/14/24 05:08 01/14/24 05:08 Lab results: Laboratory Results - last 24 hr 01/13/24 01/14/24 01/14/24 20:24 05:08 07:34 WBC 8.2 RBC 4.28 Hgb 11.8 L Hct 36.7 L MCV 85.7 MCH 27.6 MCHC 32.2 RDW 18.6 H Plt Count 265 MPV 9.1 L Immature Gran % (Auto) 1.7 H Neut % (Auto) 59.9 Lymph % (Auto) 16.9 L [place] % (Auto) 16.3 H Eos % (Auto) 4.8 H Baso % (Auto) 0.4 Lymph # (Auto) 1.4 [place] # (Auto) 1.3 H Eos # (Auto) 0.4 Baso # (Auto) 0.0 Abs Immat Gran (auto) 0.14 H Absolute Neuts (auto) 4.9 Absolute Nucleated RBC 0.000 Nucleated RBC % (auto) 0.0 PT 20.2 H INR 1.7 H Sodium 136 Potassium 4.1 Chloride 103 Carbon Dioxide 25 Anion Gap 12 BUN 42 H Creatinine 1.81 H Estim Creat Clear Calc 27.4 Estimated GFR 27 POC Glucose 212 H 115 Fasting Glucose 112 H Calcium 8.8 Total Bilirubin 0.5 AST 28 ALT 18 Alkaline Phosphatase 175 H Total Protein 7.5 Albumin 3.0 L 01/14/24 01/14/24 11:26 16:22 WBC RBC Hgb Hct MCV MCH MCHC RDW Plt Count MPV Immature Gran % (Auto) Neut % (Auto) Lymph % (Auto) [place] % (Auto) Eos % (Auto) Baso % (Auto) Lymph # (Auto) [place] # (Auto) Eos # (Auto) Baso # (Auto) Abs Immat Gran (auto) Absolute Neuts (auto) Absolute Nucleated RBC Nucleated RBC % (auto) PT INR Sodium Potassium Chloride Carbon Dioxide Anion Gap BUN Creatinine Estim Creat Clear Calc Estimated GFR POC Glucose 207 H 164 H Fasting Glucose Calcium Total Bilirubin AST ALT Alkaline Phosphatase Total Protein Albumin Assessment and Plan (1) Congestive heart failure: Qualifiers: Heart failure type: diastolic Heart failure chronicity: chronic Qualified Code(s): I50.32 - Chronic diastolic (congestive) heart failure Status: Acute Prior history of congestive heart failure with preserved to mid range LV systolic function with last LVEF of 45-50%. No clinical signs or symptoms of congestive heart failure. Patient presented with acute kidney injury and fall. Acute injury could be due to prerenal from over diuresis and reduced oral intake versus contrast induced nephropathy. At this point time Lasix can be withheld and so can Diovan for short period time till renal function improves. Can gently hydrate her for improving renal function. Watch for signs and symptoms of heart failure. Continue metoprolol therapy for rate control for now. Was renal function improves can resume Lasix as well as valsartan therapy. (2) Permanent atrial fibrillation: Status: Acute Permanent atrial fibrillation, currently rate controlled. Continue metoprolol for rate control. Continue warfarin for target INR between 2 and 3. Will sign of the case. Thank you for allowing me to partake in the care Procedures Date of Service Date of Service: 01/14/24
[2024-01-14 19:07] VITALS: BP 113/59; PULSE 93; RESP 16; TEMP 36.2; O2SAT 95
[2024-01-14] MEDS: Atorvastatin Calcium 10 MG TABLET PO (20:57)
[2024-01-14] MEDS: 0.9 % Sodium Chloride Flush 3 ML SYRINGE IVFLUSH (20:58)
[2024-01-14] MEDS: Insulin Glargine,Hum.rec.anlog 100 UNIT/ML 10 ML VIAL 37 UNIT SUBCUT (21:03)
[2024-01-14 21:47] LABS: Glucose, Whole Blood 216 mg/dL (60-115)
--- NOTE | 2024-01-14 22:28 | PC.NURSE ---
tucker. buttock skin tear and slit open on coccyx. triad applied.
[2024-01-15 04:00] VITALS: BP 138/60; PULSE 82; RESP 16; TEMP 36.3; O2SAT 96
[2024-01-15] MEDS: oxyCODONE HCl Immed Release 5 MG TABLET PO ×2 (04:29→15:51)
[2024-01-15] MEDS: Levothyroxine Sodium 25 MCG TABLET PO (05:38)
[2024-01-15 06:17] LABS: INTERNATIONAL NORM RATIO 1.7 (0.9-1.1); Prothrombin Time 20.7 SEC (11.1-13.3)
[2024-01-15 06:21] LABS: Alanine Aminotransferase 23 U/L (0-31); Albumin Level 2.9 g/dL (3.5-5.0); Alkaline Phosphatase 175 U/L (39-117); Anion Gap 13 (12-20); Aspartate Amino Transferase 33 U/L (5-31); Bilirubin Total 0.3 mg/dL (0.0-1.0); Blood Urea Nitrogen 44 mg/dL (9-16); Calcium 8.7 mg/dL (8.4-10.2); Carbon Dioxide 22 mmol/L (22-29); Chloride 106 mmol/L (96-108); Creatinine Clr Calc Pharmacy 25.4; Estimated Glomerular Filt Rate 25; Glucose Fasting 97 mg/dL (60-99); Potassium 3.9 mmol/L (3.3-5.1); Sodium 137 mmol/L (135-145); Total Protein 7.2 g/dL (6.5-8.0)
[2024-01-15 07:14] LABS: Glucose, Whole Blood 101 mg/dL (60-115)
[2024-01-15 07:24] VITALS: BP 119/63; PULSE 92; RESP 16; TEMP 36.3; O2SAT 96
[2024-01-15] MEDS: polyethylene glycoL 3350 17 GM POWD.PACK PO (08:05)
[2024-01-15] MEDS: Multivitamin TABLET 1 TAB PO (08:05)
[2024-01-15] MEDS: Nystatin Powder 15 GM BOTTLE 1 APPL TOPICAL ×3 (08:05→20:46)
[2024-01-15] MEDS: Aspirin Enteric Coated 81 MG TABLET.DR PO (08:05)
[2024-01-15] MEDS: Metoprolol Succinate ER 100 MG TAB.ER.24H 200 MG PO (08:05)
[2024-01-15] MEDS: amLODIPine Besylate 5 MG TABLET PO (08:05)
[2024-01-15] MEDS: 0.9 % Sodium Chloride Flush 3 ML SYRINGE IVFLUSH ×2 (08:06→20:38)
[2024-01-15 11:19] VITALS: BP 119/63; PULSE 92; O2SAT 96
--- NOTE | 2024-01-15 11:20 | MHC.CM.PN ---
PER MD ROUNDS, PT IS EXPECTED TO DC TOMORROW, HOME WITH [facility] DAUGHTER TO TRANSPORT [facility] NOTIFIED OF POTENTIAL DC VIA FAX AND [facility]
[2024-01-15 11:36] LABS: Glucose, Whole Blood 117 mg/dL (60-115)
--- NOTE | 2024-01-15 12:08 | HO.PM.IMPN ---
Subjective Subjective Date of Service: 01/15/24 Interval History: seen and examined this morning follow up for DOROTHY, groin pain still reporting groin pain, no change. no abdominal pain Review of Systems Review of Systems: Yes all other systems are reviewed and are negative Constitutional Constitutional: Denies chills and Denies fever(s) Cardiovascular Cardiovascular: Denies chest pain, Denies palpitations and Denies dyspnea Respiratory Respiratory: Denies cough and Denies dyspnea Gastrointestinal Gastrointestinal: Denies abdominal pain Endocrine Endocrine: Denies palpitations Physical Exam Vital Signs: Vital Signs: Last Vital Signs Temp 97.3 F 01/15/24 07:24 Pulse 92 01/15/24 11:19 Resp 16 01/15/24 07:24 BP 119/63 01/15/24 11:19 Pulse Ox 96 01/15/24 11:19 O2 Del Method Room Air 01/15/24 07:24 BMI result Body Mass Index 31.8 Const: General: cooperative, comfortable, no acute distress, alert and awake Nutritional Appearance: overweight Orientation/consciousness: patient oriented x3 Resp: Effort & Inspection: normal respiratory effort, able to speak in complete sentences, no respiratory distress and no use of accessory muscles Auscultation: clear to auscultation bilaterally Cardio: Rate: regular rate GI: Inspection: No distended Palpation (GI): Soft to palpation and nontender : Other: suprapubic catheter in place Neuro: General: patient oriented x3, moves all extremities and CN's II-XI intact bilaterally Extrem: General: Yes no pedal edema Objective Data Active Medications Acetaminophen (Acetaminophen 325 Mg Tablet) 650 mg PO Q6H PRN PRN Reason: Pain, Mild (Pain Scale 1-3) Last Admin: 01/13/24 02:53 Dose: 650 mg Documented By: NAY Amlodipine Besylate (Amlodipine Besylate 5 Mg Tablet) 5 mg PO DAILY [facility]; Protocol Last Admin: 01/15/24 08:05 Dose: 5 mg Documented By: YUNIER Aspirin (Aspirin Enteric Coated 81 Mg Tablet.) 81 mg PO DAILY [facility] Last Admin: 01/15/24 08:05 Dose: 81 mg Documented By: YUNIER Atorvastatin Calcium (Atorvastatin Calcium 10 Mg Tablet) 10 mg PO BEDTIME [facility] Last Admin: 01/14/24 20:57 Dose: 10 mg Documented By: IRMA Dextrose (Dextrose 50 % 25 Gm/50 Ml Syringe) 25 gm IVPUSH Q15M PRN; Protocol PRN Reason: per Hypoglycemia Standing Ord. Docusate Sodium (Docusate Sodium 100 Mg Capsule) 100 mg PO BID [facility] Last Admin: 01/15/24 08:06 Dose: Not Given Documented By: YUNIER Non-Admin Reason: pt refused Furosemide (Furosemide 40 Mg Tablet) 40 mg PO DAILY [facility]; Protocol Last Admin: 01/14/24 08:27 Dose: 40 mg Documented By: CHRISTOPHER Glucose (Glucose Gel 15 Gm Gel..Gram.) 15 gm PO Q15M PRN; Protocol PRN Reason: per Hypoglycemia Standing Ord. Lactated Ringer's (Lr) 1,000 mls @ 80 mls/hr IVCONT .[id number] [facility] Stop: 01/15/24 18:29 Insulin Glargine (Insulin Glargine,Hum.Rec.Anlog 100 Unit/Ml 10 Ml Vial) 37 unit SUBCUT BEDTIME [facility] Last Admin: 01/14/24 21:03 Dose: 37 unit Documented By: IRMA Insulin Human Lispro (Insulin Lispro 100 Unit/Ml 3 Ml Vial) 0 unit SUBCUT QIDACHS [facility]; Protocol Last Admin: 01/15/24 11:38 Dose: Not Given Documented By: YUNIER Non-Admin Reason: No Insulin Coverage Levothyroxine Sodium (Levothyroxine Sodium 25 Mcg Tablet) 25 mcg PO DAILY@0600 [facility] Last Admin: 01/15/24 05:38 Dose: 25 mcg Documented By: IRMA Magnesium Hydroxide (Milk Of Magnesia 30 Ml Oral.Susp) 15 ml PO BID PRN PRN Reason: Constipation Melatonin (Melatonin 3 Mg Tablet) 6 mg PO BEDTIME PRN PRN Reason: Insomnia Metoprolol Succinate (Metoprolol Succinate Er 100 Mg Tab.Er.24h) 200 mg PO DAILY [facility]; Protocol Last Admin: 01/15/24 08:05 Dose: 200 mg Documented By: YUNIER Multivitamins/Vitamin C (Multivitamin Tablet) 1 tab PO DAILY [facility] Last Admin: 01/15/24 08:05 Dose: 1 tab Documented By: YUNIER Nystatin (Nystatin Powder 15 Gm Bottle) 1 appl TOPICAL TID [facility]; Protocol Last Admin: 01/15/24 08:05 Dose: 1 appl Documented By: YUNIER Nystatin (Nystatin Powder 15 Gm Bottle) 1 appl TOPICAL BID [facility]; Protocol Last Admin: 01/15/24 08:16 Dose: Not Given Documented By: YUNIER Non-Admin Reason: Duplicate Order Ondansetron HCl (Ondansetron Hcl 4 Mg/2 Ml Vial) 4 mg IVPUSH Q8H PRN PRN Reason: Nausea and Vomiting Oxycodone HCl (Oxycodone Hcl Immed Release 5 Mg Tablet) 5 mg PO Q4H PRN PRN Reason: Pain, Moderate(Pain Scale 4-6) Last Admin: 01/15/24 04:29 Dose: 5 mg Documented By: IRMA Polyethylene Glycol (Polyethylene Glycol 3350 17 Gm Powd.Pack) 17 gm PO BID [facility] Last Admin: 01/15/24 08:05 Dose: 17 gm Documented By: YUNIER Sodium Chloride (0.9 % Sodium Chloride Flush 3 Ml Syringe) [facility] Last Admin: 01/15/24 08:06 Dose: 3 ml Documented By: YUNIER Valsartan (Valsartan 40 Mg Tablet) 20 mg PO BID [facility]; Protocol Last Admin: 01/14/24 08:27 Dose: 20 mg Documented By: CHRISTOPHER Warfarin Sodium (Warfarin Sodium 1 Mg Tablet) 1 mg PO MoWeFr@1800 [facility] Last Admin: 01/13/24 18:11 Dose: 1 mg Documented By: LAZARA Warfarin Sodium (Warfarin Sodium 2 Mg Tablet) 2 mg PO SuTuThSa@1800 [facility] Last Admin: 01/14/24 17:34 Dose: 2 mg Documented By: CHRISTOPHER Labs 01/14/24 05:08 01/15/24 08:20 Labs: Laboratory Results - last 24 hr 01/14/24 01/14/24 01/15/24 16:22 21:43 05:13 Hold Purple Top SEE NOTE PT 20.7 H INR 1.7 H Anion Gap Estim Creat Clear Calc Estimated GFR POC Glucose 164 H 216 H Fasting Glucose Calcium Total Bilirubin AST ALT Alkaline Phosphatase Total Protein Albumin 01/15/24 01/15/24 01/15/24 06:59 08:20 11:31 Hold Purple Top PT INR Anion Gap 13 Estim Creat Clear Calc 25.4 Estimated GFR 25 POC Glucose 101 117 H Fasting Glucose 97 Calcium 8.7 Total Bilirubin 0.3 AST 33 H ALT 23 Alkaline Phosphatase 175 H Total Protein 7.2 Albumin 2.9 L Assessment and Plan (1) DOROTHY (acute kidney injury): Status: Acute Plan This is a 83-year-old female with pertinent history of congestive heart failure with preserved ejection fraction, permanent atrial fibrillation on Coumadin, CKD stage 3, hypothyroidism, insulin-dependent diabetes mellitus, essential hypertension, neurogenic bladder status post suprapubic catheter who presents to the emergency department for evaluation of a fall found to be in chf 1.HFpEF transitioned to po lasix but currently on hold for DOROTHY echo results noted seen by cardiology - no further work up required 2.DOROTHY on CKD 3 SCr still elevated at 1.9 continue to hold losartan, hold lasix - will give 500cc IVF d/w urology - has suprapubic catheter - has outpatient follow up appt. no further work up needed follow renal function 3.Bilateral hydroureter with hydronephrosis No further workup per Urology, recommend outpatient follow-up as scheduled 4.UTI urine culture negative stop ceftriaxone 5.Insulin-dependent diabetes mellitus -acceptable control on current therapies -lispro correctional scale -adjust as indicated 6.Essential hypertension hold losartan for DOROTHY continue norvasc, toprol xl 7. Paroxysmal atrial fibrillation continue Coumadin as ordered INR remains low, will give extra dose today follow INR 8. Right groin pain ? related to arterial stent, placed at endovascular center - has outpt follow up scheduled CT abdomen/pelvis, no obvious cause of pain hip/pelvis xray no acute fracture of malalignment pt evaluation - rec home with PT services Coumadin - INR pending Full code Requires ongoing hospitalization for safe disposition, close monitoring of renal function Quality Stroke Does the patient have a stroke diagnosis?: No VTE Prior VTE?: No VTE Risk Level:: Medical - moderate - high VTE Device Contraindication: Treatment Not Indicated VTE Drug Contraindication: N/A - Med Ordered
[2024-01-15] MEDS: Lactated Ringers 500 ML 80 ML IVCONT (12:25)
[2024-01-15 15:20] VITALS: BP 129/68; PULSE 95; RESP 18; TEMP 36.1; O2SAT 100
[2024-01-15 16:17] LABS: Glucose, Whole Blood 218 mg/dL (60-115)
[2024-01-15] MEDS: Insulin Lispro 100 UNIT/ML 3 ML VIAL SUBCUT ×2 (17:01→20:39)
[2024-01-15] MEDS: Warfarin Sodium 2 MG TABLET PO (17:59)
[2024-01-15] MEDS: Warfarin Sodium 1 MG TABLET PO (17:59)
[2024-01-15 19:19] VITALS: BP 105/76; PULSE 79; RESP 16; TEMP 36.2; O2SAT 96
[2024-01-15 20:07] LABS: Glucose, Whole Blood 187 mg/dL (60-115)
[2024-01-15] MEDS: Insulin Glargine,Hum.rec.anlog 100 UNIT/ML 10 ML VIAL 37 UNIT SUBCUT (20:39)
[2024-01-15] MEDS: Atorvastatin Calcium 10 MG TABLET PO (20:39)
[2024-01-15] MEDS: Docusate Sodium 100 MG CAPSULE PO (20:39)
[2024-01-16 03:22] VITALS: BP 147/87; PULSE 94; RESP 18; TEMP 36.5; O2SAT 95
[2024-01-16] MEDS: Levothyroxine Sodium 25 MCG TABLET PO (05:39)
[2024-01-16] MEDS: oxyCODONE HCl Immed Release 5 MG TABLET PO ×2 (05:40→21:21)
[2024-01-16 07:16] VITALS: BP 141/68; PULSE 88; RESP 17; TEMP 36.2; O2SAT 94
[2024-01-16 07:45] LABS: Glucose, Whole Blood 84 mg/dL (60-115)
[2024-01-16] MEDS: 0.9 % Sodium Chloride Flush 3 ML SYRINGE IVFLUSH ×3 (09:15→21:21)
[2024-01-16] MEDS: Metoprolol Succinate ER 100 MG TAB.ER.24H 200 MG PO (09:16)
[2024-01-16] MEDS: Aspirin Enteric Coated 81 MG TABLET.DR PO (09:17)
[2024-01-16] MEDS: Multivitamin TABLET 1 TAB PO (09:17)
[2024-01-16] MEDS: amLODIPine Besylate 5 MG TABLET PO (09:17)
[2024-01-16] MEDS: Docusate Sodium 100 MG CAPSULE PO ×2 (09:17→21:18)
[2024-01-16] MEDS: Nystatin Powder 15 GM BOTTLE 1 APPL TOPICAL ×3 (09:22→21:24)
[2024-01-16] MEDS: polyethylene glycoL 3350 17 GM POWD.PACK PO (09:23)
[2024-01-16 10:47] LABS: Anion Gap 12 (12-20); Blood Urea Nitrogen 35 mg/dL (9-16); Calcium 9.1 mg/dL (8.4-10.2); Carbon Dioxide 24 mmol/L (22-29); Chloride 107 mmol/L (96-108); Creatinine Clr Calc Pharmacy 29.7; Estimated Glomerular Filt Rate 29; Glucose Random 83 mg/dL (60-115); Potassium 4.2 mmol/L (3.3-5.1); Sodium 139 mmol/L (135-145)
[2024-01-16 10:48] LABS: INTERNATIONAL NORM RATIO 1.8 (0.9-1.1); Prothrombin Time 22.5 SEC (11.1-13.3)
--- NOTE | 2024-01-16 10:59 | HO.PM.IMPN ---
Subjective Subjective Date of Service: 01/16/24 Interval History: seen and examined this morning follow up for DOROTHY, groin pain still reporting groin pain, no change. no abdominal pain Review of Systems Review of Systems: Yes all other systems are reviewed and are negative Constitutional Constitutional: Denies chills and Denies fever(s) Cardiovascular Cardiovascular: Denies chest pain, Denies palpitations and Denies dyspnea Respiratory Respiratory: Denies cough and Denies dyspnea Gastrointestinal Gastrointestinal: Denies abdominal pain Endocrine Endocrine: Denies palpitations Physical Exam Vital Signs: Vital Signs: Last Vital Signs Temp 97.2 F 01/16/24 07:16 Pulse 88 01/16/24 07:16 Resp 17 01/16/24 07:16 BP 141/68 H 01/16/24 07:16 Pulse Ox 94 01/16/24 07:16 O2 Del Method Room Air 01/16/24 07:16 BMI result Body Mass Index 31.8 Appearing in no acute distress lung sounds are clear to auscultation heart regular rate rhythm, clear S1, S2 positive bowel sounds, abdomen is soft, nontender neuro patient is alert x3, no focal deficits Objective Data Active Medications Acetaminophen (Acetaminophen 325 Mg Tablet) 650 mg PO Q6H PRN PRN Reason: Pain, Mild (Pain Scale 1-3) Last Admin: 01/13/24 02:53 Dose: 650 mg Documented By: NAY Amlodipine Besylate (Amlodipine Besylate 5 Mg Tablet) 5 mg PO DAILY [facility]; Protocol Last Admin: 01/16/24 09:17 Dose: 5 mg Documented By: TREY Aspirin (Aspirin Enteric Coated 81 Mg Tablet.) 81 mg PO DAILY [facility] Last Admin: 01/16/24 09:17 Dose: 81 mg Documented By: TREY Atorvastatin Calcium (Atorvastatin Calcium 10 Mg Tablet) 10 mg PO BEDTIME [facility] Last Admin: 01/15/24 20:39 Dose: 10 mg Documented By: IRMA Dextrose (Dextrose 50 % 25 Gm/50 Ml Syringe) 25 gm IVPUSH Q15M PRN; Protocol PRN Reason: per Hypoglycemia Standing Ord. Docusate Sodium (Docusate Sodium 100 Mg Capsule) 100 mg PO BID [facility] Last Admin: 01/16/24 09:17 Dose: 100 mg Documented By: TREY Furosemide (Furosemide 40 Mg Tablet) 40 mg PO DAILY [facility]; Protocol Last Admin: 01/14/24 08:27 Dose: 40 mg Documented By: JONNFAA Glucose (Glucose Gel 15 Gm Gel..Gram.) 15 gm PO Q15M PRN; Protocol PRN Reason: per Hypoglycemia Standing Ord. Insulin Glargine (Insulin Glargine,Hum.Rec.Anlog 100 Unit/Ml 10 Ml Vial) 37 unit SUBCUT BEDTIME [facility] Last Admin: 01/15/24 20:39 Dose: 37 unit Documented By: IRMA Insulin Human Lispro (Insulin Lispro 100 Unit/Ml 3 Ml Vial) 0 unit SUBCUT QIDACHS [facility]; Protocol Last Admin: 01/16/24 08:34 Dose: Not Given Documented By: TREY Non-Admin Reason: No Insulin Coverage Levothyroxine Sodium (Levothyroxine Sodium 25 Mcg Tablet) 25 mcg PO DAILY@0600 [facility] Last Admin: 01/16/24 05:39 Dose: 25 mcg Documented By: IRMA Magnesium Hydroxide (Milk Of Magnesia 30 Ml Oral.Susp) 15 ml PO BID PRN PRN Reason: Constipation Melatonin (Melatonin 3 Mg Tablet) 6 mg PO BEDTIME PRN PRN Reason: Insomnia Metoprolol Succinate (Metoprolol Succinate Er 100 Mg Tab.Er.24h) 200 mg PO DAILY [facility]; Protocol Last Admin: 01/16/24 09:16 Dose: 200 mg Documented By: TREY Multivitamins/Vitamin C (Multivitamin Tablet) 1 tab PO DAILY [facility] Last Admin: 01/16/24 09:17 Dose: 1 tab Documented By: TREY Nystatin (Nystatin Powder 15 Gm Bottle) 1 appl TOPICAL TID [facility]; Protocol Last Admin: 01/16/24 09:22 Dose: 1 appl Documented By: TREY Nystatin (Nystatin Powder 15 Gm Bottle) 1 appl TOPICAL BID [facility]; Protocol Last Admin: 01/16/24 09:23 Dose: Not Given Documented By: TREY Non-Admin Reason: Duplicate Order Ondansetron HCl (Ondansetron Hcl 4 Mg/2 Ml Vial) 4 mg IVPUSH Q8H PRN PRN Reason: Nausea and Vomiting Oxycodone HCl (Oxycodone Hcl Immed Release 5 Mg Tablet) 5 mg PO Q4H PRN PRN Reason: Pain, Moderate(Pain Scale 4-6) Last Admin: 01/16/24 05:40 Dose: 5 mg Documented By: IRMA Polyethylene Glycol (Polyethylene Glycol 3350 17 Gm Powd.Pack) 17 gm PO BID [facility] Last Admin: 01/16/24 09:23 Dose: 17 gm Documented By: TREY Sodium Chloride (0.9 % Sodium Chloride Flush 3 Ml Syringe) 3 ml IVFLUSH QSHIFT [facility] Last Admin: 01/16/24 09:15 Dose: 3 ml Documented By: TREY Valsartan (Valsartan 40 Mg Tablet) 20 mg PO BID [facility]; Protocol Last Admin: 01/14/24 08:27 Dose: 20 mg Documented By: CHRISTOPHER Warfarin Sodium (Warfarin Sodium 1 Mg Tablet) 1 mg PO MoWeFr@1800 [facility] Last Admin: 01/15/24 17:59 Dose: 1 mg Documented By: YUNIER Warfarin Sodium (Warfarin Sodium 2 Mg Tablet) 2 mg PO SuTuThSa@1800 [facility] Last Admin: 01/14/24 17:34 Dose: 2 mg Documented By: CHRISTOPHER Labs 01/14/24 05:08 01/16/24 10:10 Labs: Laboratory Results - last 24 hr 01/15/24 01/15/24 01/15/24 11:31 16:11 20:01 Hold Purple Top PT INR Anion Gap Estim Creat Clear Calc Estimated GFR POC Glucose 117 H 218 H 187 H Random Glucose Calcium 01/16/24 01/16/24 07:21 10:10 Hold Purple Top SEE NOTE PT 22.5 H INR 1.8 H Anion Gap 12 Estim Creat Clear Calc 29.7 Estimated GFR 29 POC Glucose 84 Random Glucose 83 Calcium 9.1 Assessment and Plan (1) DOROTHY (acute kidney injury): Status: Acute Plan 83-year-old female with pertinent history of congestive heart failure with preserved ejection fraction, permanent atrial fibrillation on Coumadin, CKD stage 3, hypothyroidism, insulin-dependent diabetes mellitus, essential hypertension, neurogenic bladder status post suprapubic catheter who presents to the emergency department for evaluation of a fall found to be in chf DOROTHY on CKD 3 SCr trending down continue to hold losartan, hold lasix d/w urology - has suprapubic catheter - has outpatient follow up appt. no further work up needed follow renal function HFpEF transitioned to po lasix but currently on hold for DOROTHY echo results noted seen by cardiology - no further work up required Bilateral hydroureter with hydronephrosis No further workup per Urology, recommend outpatient follow-up as scheduled Insulin-dependent diabetes mellitus ss, ada diet Essential hypertension hold losartan for DOROTHY continue norvasc, toprol xl Paroxysmal atrial fibrillation continue Coumadin as ordered INR remains low, will give extra dose today follow INR Right groin pain ? related to arterial stent, placed at endovascular center - has outpt follow up scheduled CT abdomen/pelvis, no obvious cause of pain hip/pelvis xray no acute fracture of malalignment pt evaluation - rec home with PT services Coumadin Attending Dr. Schaefer Full code Requires ongoing hospitalization for safe disposition, close monitoring of renal function Quality Stroke Does the patient have a stroke diagnosis?: No VTE Prior VTE?: No VTE Risk Level:: Medical - moderate - high VTE Device Contraindication: Treatment Not Indicated VTE Drug Contraindication: N/A - Med Ordered
[2024-01-16 11:27] LABS: Glucose, Whole Blood 93 mg/dL (60-115)
[2024-01-16 15:31] VITALS: BP 128/61; PULSE 92; RESP 17; TEMP 36.2; O2SAT 98
[2024-01-16 16:29] LABS: Glucose, Whole Blood 138 mg/dL (60-115)
[2024-01-16] MEDS: Warfarin Sodium 2 MG TABLET PO (17:00)
[2024-01-16 19:14] VITALS: BP 125/62; PULSE 89; RESP 20; TEMP 36.6
[2024-01-16 20:21] LABS: Glucose, Whole Blood 202 mg/dL (60-115)
[2024-01-16] MEDS: Insulin Glargine,Hum.rec.anlog 100 UNIT/ML 10 ML VIAL 37 UNIT SUBCUT (21:17)
[2024-01-16] MEDS: Insulin Lispro 100 UNIT/ML 3 ML VIAL SUBCUT (21:18)
[2024-01-16] MEDS: Atorvastatin Calcium 10 MG TABLET PO (21:18)
[2024-01-17 02:36] VITALS: BP 156/80; PULSE 84; RESP 18; TEMP 36.6; O2SAT 95
[2024-01-17] MEDS: oxyCODONE HCl Immed Release 5 MG TABLET PO ×2 (02:43→08:23)
[2024-01-17] MEDS: Levothyroxine Sodium 25 MCG TABLET PO (05:59)
[2024-01-17 06:14] LABS: INTERNATIONAL NORM RATIO 2.3 (0.9-1.1); Prothrombin Time 27.8 SEC (11.1-13.3)
[2024-01-17 07:20] VITALS: BP 130/66; PULSE 88; RESP 17; TEMP 36.3; O2SAT 95
[2024-01-17 07:31] LABS: Anion Gap 13 (12-20); Blood Urea Nitrogen 30 mg/dL (9-16); Calcium 8.4 mg/dL (8.4-10.2); Carbon Dioxide 22 mmol/L (22-29); Chloride 105 mmol/L (96-108); Creatinine Clr Calc Pharmacy 34.4; Estimated Glomerular Filt Rate 35; Glucose Random 103 mg/dL (60-115); Potassium 4.3 mmol/L (3.3-5.1); Sodium 136 mmol/L (135-145)
[2024-01-17 07:38] LABS: Glucose, Whole Blood 106 mg/dL (60-115)
[2024-01-17] MEDS: amLODIPine Besylate 5 MG TABLET PO (08:23)
[2024-01-17] MEDS: Multivitamin TABLET 1 TAB PO (08:23)
[2024-01-17] MEDS: Docusate Sodium 100 MG CAPSULE PO ×2 (08:23→22:09)
[2024-01-17] MEDS: Aspirin Enteric Coated 81 MG TABLET.DR PO (08:23)
[2024-01-17] MEDS: Metoprolol Succinate ER 100 MG TAB.ER.24H 200 MG PO (08:24)
[2024-01-17] MEDS: polyethylene glycoL 3350 17 GM POWD.PACK PO (08:25)
[2024-01-17] MEDS: 0.9 % Sodium Chloride Flush 3 ML SYRINGE IVFLUSH ×3 (08:27→22:09)
[2024-01-17] MEDS: Nystatin Powder 15 GM BOTTLE 1 APPL TOPICAL ×3 (08:27→22:10)
--- NOTE | 2024-01-17 08:39 | HO.PM.IMPN ---
Subjective Subjective Date of Service: 01/17/24 Interval History: seen and examined this morning follow up for DOROTYH, groin pain still reporting groin pain, no change. no abdominal pain Review of Systems Review of Systems: Yes all other systems are reviewed and are negative Constitutional Constitutional: Denies chills and Denies fever(s) Cardiovascular Cardiovascular: Denies chest pain, Denies palpitations and Denies dyspnea Respiratory Respiratory: Denies cough and Denies dyspnea Gastrointestinal Gastrointestinal: Denies abdominal pain Endocrine Endocrine: Denies palpitations Physical Exam Vital Signs: Vital Signs: Last Vital Signs Temp 97.4 F 01/17/24 07:20 Pulse 88 01/17/24 07:20 Resp 17 01/17/24 07:20 BP 130/66 01/17/24 07:20 Pulse Ox 95 01/17/24 07:20 O2 Del Method Room Air 01/17/24 07:20 BMI result Body Mass Index 31.8 Appearing in no acute distress lung sounds are clear to auscultation heart regular rate rhythm, clear S1, S2 positive bowel sounds, abdomen is soft, nontender neuro patient is alert x3, no focal deficits Objective Data Active Medications Acetaminophen (Acetaminophen 325 Mg Tablet) 650 mg PO Q6H PRN PRN Reason: Pain, Mild (Pain Scale 1-3) Last Admin: 01/13/24 02:53 Dose: 650 mg Documented By: NAY Amlodipine Besylate (Amlodipine Besylate 5 Mg Tablet) 5 mg PO DAILY [facility]; Protocol Last Admin: 01/17/24 08:23 Dose: 5 mg Documented By: TREY Aspirin (Aspirin Enteric Coated 81 Mg Tablet.) 81 mg PO DAILY [facility] Last Admin: 01/17/24 08:23 Dose: 81 mg Documented By: TREY Atorvastatin Calcium (Atorvastatin Calcium 10 Mg Tablet) 10 mg PO BEDTIME [facility] Last Admin: 01/16/24 21:18 Dose: 10 mg Documented By: IRMA Dextrose (Dextrose 50 % 25 Gm/50 Ml Syringe) 25 gm IVPUSH Q15M PRN; Protocol PRN Reason: per Hypoglycemia Standing Ord. Docusate Sodium (Docusate Sodium 100 Mg Capsule) 100 mg PO BID [facility] Last Admin: 01/17/24 08:23 Dose: 100 mg Documented By: TREY Furosemide (Furosemide 40 Mg Tablet) 40 mg PO DAILY [facility]; Protocol Last Admin: 01/14/24 08:27 Dose: 40 mg Documented By: JONNFAA Glucose (Glucose Gel 15 Gm Gel..Gram.) 15 gm PO Q15M PRN; Protocol PRN Reason: per Hypoglycemia Standing Ord. Insulin Glargine (Insulin Glargine,Hum.Rec.Anlog 100 Unit/Ml 10 Ml Vial) 37 unit SUBCUT BEDTIME [facility] Last Admin: 01/16/24 21:17 Dose: 37 unit Documented By: IRMA Insulin Human Lispro (Insulin Lispro 100 Unit/Ml 3 Ml Vial) 0 unit SUBCUT QIDACHS [facility]; Protocol Last Admin: 01/17/24 07:46 Dose: Not Given Documented By: TREY Non-Admin Reason: No Insulin Coverage Levothyroxine Sodium (Levothyroxine Sodium 25 Mcg Tablet) 25 mcg PO DAILY@0600 [facility] Last Admin: 01/17/24 05:59 Dose: 25 mcg Documented By: IRMA Magnesium Hydroxide (Milk Of Magnesia 30 Ml Oral.Susp) 15 ml PO BID PRN PRN Reason: Constipation Melatonin (Melatonin 3 Mg Tablet) 6 mg PO BEDTIME PRN PRN Reason: Insomnia Metoprolol Succinate (Metoprolol Succinate Er 100 Mg Tab.Er.24h) 200 mg PO DAILY [facility]; Protocol Last Admin: 01/17/24 08:24 Dose: 200 mg Documented By: TREY Multivitamins/Vitamin C (Multivitamin Tablet) 1 tab PO DAILY [facility] Last Admin: 01/17/24 08:23 Dose: 1 tab Documented By: TREY Nystatin (Nystatin Powder 15 Gm Bottle) 1 appl TOPICAL TID [facility]; Protocol Last Admin: 01/17/24 08:27 Dose: 1 appl Documented By: TREY Nystatin (Nystatin Powder 15 Gm Bottle) 1 appl TOPICAL BID [facility]; Protocol Last Admin: 01/17/24 08:28 Dose: Not Given Documented By: TREY Non-Admin Reason: Duplicate Order Ondansetron HCl (Ondansetron Hcl 4 Mg/2 Ml Vial) 4 mg IVPUSH Q8H PRN PRN Reason: Nausea and Vomiting Oxycodone HCl (Oxycodone Hcl Immed Release 5 Mg Tablet) 5 mg PO Q4H PRN PRN Reason: Pain, Moderate(Pain Scale 4-6) Last Admin: 01/17/24 08:23 Dose: 5 mg Documented By: TREY Polyethylene Glycol (Polyethylene Glycol 3350 17 Gm Powd.Pack) 17 gm PO BID [facility] Last Admin: 01/17/24 08:25 Dose: 17 gm Documented By: TREY Sodium Chloride (0.9 % Sodium Chloride Flush 3 Ml Syringe) 3 ml IVFLUSH QSHIFT [facility] Last Admin: 01/17/24 08:27 Dose: 3 ml Documented By: TREY Valsartan (Valsartan 40 Mg Tablet) 20 mg PO BID [facility]; Protocol Last Admin: 01/14/24 08:27 Dose: 20 mg Documented By: CHRISTOPHER Warfarin Sodium (Warfarin Sodium 1 Mg Tablet) 1 mg PO MoWeFr@1800 [facility] Last Admin: 01/15/24 17:59 Dose: 1 mg Documented By: YUNIER Warfarin Sodium (Warfarin Sodium 2 Mg Tablet) 2 mg PO SuTuThSa@1800 [facility] Last Admin: 01/16/24 17:00 Dose: 2 mg Documented By: TREY Labs 01/14/24 05:08 01/17/24 05:46 Labs: Laboratory Results - last 24 hr 01/16/24 01/16/24 01/16/24 10:10 11:19 16:17 Hold Purple Top SEE NOTE PT 22.5 H INR 1.8 H Anion Gap 12 Estim Creat Clear Calc 29.7 Estimated GFR 29 POC Glucose 93 138 H Random Glucose 83 Calcium 9.1 01/16/24 01/17/24 01/17/24 20:15 05:46 07:22 Hold Purple Top SEE NOTE PT 27.8 H D INR 2.3 H Anion Gap 13 Estim Creat Clear Calc 34.4 Estimated GFR 35 POC Glucose 202 H 106 Random Glucose 103 Calcium 8.4 D Assessment and Plan (1) DOROTHY (acute kidney injury): Status: Acute Plan 83-year-old female with pertinent history of congestive heart failure with preserved ejection fraction, permanent atrial fibrillation on Coumadin, CKD stage 3, hypothyroidism, insulin-dependent diabetes mellitus, essential hypertension, neurogenic bladder status post suprapubic catheter who presents to the emergency department for evaluation of a fall found to be in chf Right groin pain ? related to arterial stent, placed at endovascular center CT abdomen/pelvis, no obvious cause of pain hip/pelvis xray no acute fracture of malalignment vascular surgery consult for the morning DOROTHY on CKD 3 SCr trending down continue to hold losartan, hold lasix d/w urology - has suprapubic catheter - has outpatient follow up appt. no further work up needed follow renal function HFpEF transitioned to po lasix but currently on hold for DOROTHY echo results noted seen by cardiology - no further work up required Bilateral hydroureter with hydronephrosis No further workup per Urology, recommend outpatient follow-up as scheduled Insulin-dependent diabetes mellitus ss, ada diet Essential hypertension hold losartan for DOROTHY continue norvasc, toprol xl Paroxysmal atrial fibrillation continue Coumadin as ordered INR remains low, will give extra dose today follow INR DISPO pt evaluation - rec home with PT services Coumadin Attending Dr. Schaefer Full code Requires ongoing hospitalization for safe disposition, close monitoring of renal function Quality Stroke Does the patient have a stroke diagnosis?: No VTE Prior VTE?: No VTE Risk Level:: Medical - moderate - high VTE Device Contraindication: Treatment Not Indicated VTE Drug Contraindication: N/A - Med Ordered
[2024-01-17 11:43] LABS: Glucose, Whole Blood 122 mg/dL (60-115)
[2024-01-17 15:56] VITALS: BP 140/72; PULSE 88; RESP 20; TEMP 37; O2SAT 96
[2024-01-17 17:00] LABS: Glucose, Whole Blood 145 mg/dL (60-115)
[2024-01-17] MEDS: Warfarin Sodium 2 MG TABLET PO (17:24)
[2024-01-17] MEDS: Acetaminophen 325 MG TABLET 650 MG PO (19:35)
[2024-01-17 19:48] VITALS: BP 129/69; PULSE 92; RESP 20; TEMP 37.1; O2SAT 99
[2024-01-17 20:31] LABS: Glucose, Whole Blood 178 mg/dL (60-115)
[2024-01-17] MEDS: Atorvastatin Calcium 10 MG TABLET PO (22:09)
[2024-01-17] MEDS: Insulin Glargine,Hum.rec.anlog 100 UNIT/ML 10 ML VIAL 37 UNIT SUBCUT (22:09)
[2024-01-17] MEDS: Insulin Lispro 100 UNIT/ML 3 ML VIAL SUBCUT (22:09)
[2024-01-18] MEDS: oxyCODONE HCl Immed Release 5 MG TABLET PO ×2 (00:29→04:43)
[2024-01-18 04:00] VITALS: BP 167/69; PULSE 97; RESP 16; TEMP 36.9; O2SAT 93
[2024-01-18] MEDS: Levothyroxine Sodium 25 MCG TABLET PO (05:09)
[2024-01-18 07:47] VITALS: BP 163/72; PULSE 98; RESP 16; TEMP 37.1; O2SAT 94
[2024-01-18 08:00] LABS: Glucose, Whole Blood 98 mg/dL (60-115)
[2024-01-18] MEDS: Metoprolol Succinate ER 100 MG TAB.ER.24H 200 MG PO (08:05)
[2024-01-18] MEDS: Docusate Sodium 100 MG CAPSULE PO ×2 (08:05→22:37)
[2024-01-18] MEDS: polyethylene glycoL 3350 17 GM POWD.PACK PO ×2 (08:05→22:37)
[2024-01-18] MEDS: Multivitamin TABLET 1 TAB PO (08:06)
[2024-01-18] MEDS: 0.9 % Sodium Chloride Flush 3 ML SYRINGE IVFLUSH ×2 (08:06→17:51)
[2024-01-18] MEDS: amLODIPine Besylate 5 MG TABLET PO (08:06)
[2024-01-18] MEDS: Aspirin Enteric Coated 81 MG TABLET.DR PO (08:06)
[2024-01-18] MEDS: Nystatin Powder 15 GM BOTTLE 1 APPL TOPICAL ×3 (08:07→22:38)
[2024-01-18 08:31] LABS: INTERNATIONAL NORM RATIO 2.8 (0.9-1.1); Prothrombin Time 33.5 SEC (11.1-13.3)
[2024-01-18 08:42] LABS: Anion Gap 13 (12-20); Blood Urea Nitrogen 26 mg/dL (9-16); Calcium 8.6 mg/dL (8.4-10.2); Carbon Dioxide 21 mmol/L (22-29); Chloride 104 mmol/L (96-108); Creatinine Clr Calc Pharmacy 35.7; Estimated Glomerular Filt Rate 36; Glucose Random 90 mg/dL (60-115); Potassium 4.1 mmol/L (3.3-5.1); Sodium 134 mmol/L (135-145)
--- NOTE | 2024-01-18 11:43 | P.PNIM_ITS ---
Subjective Subjective Date of Service: 01/18/24 Interval History: seen and examined this morning follow up for DOROTHY, groin pain still reporting groin pain, no change. no abdominal pain Review of Systems Review of Systems: Yes all other systems are reviewed and are negative Constitutional Constitutional: Denies chills and Denies fever(s) Cardiovascular Cardiovascular: Denies chest pain, Denies palpitations and Denies dyspnea Respiratory Respiratory: Denies cough and Denies dyspnea Gastrointestinal Gastrointestinal: Denies abdominal pain Endocrine Endocrine: Denies palpitations Physical Exam 2 Vital Signs: Vital Signs: Last Vital Signs Temp 98.8 F 01/18/24 07:47 Pulse 98 01/18/24 07:47 Resp 16 01/18/24 07:47 BP 163/72 H 01/18/24 07:47 Pulse Ox 94 01/18/24 07:47 O2 Del Method Room Air 01/18/24 07:47 BMI result Body Mass Index 31.8 Appearing in no acute distress lung sounds are clear to auscultation heart regular rate rhythm, clear S1, S2 positive bowel sounds, abdomen is soft, nontender neuro patient is alert x3, no focal deficits Objective Data Active Medications Acetaminophen (Acetaminophen 325 Mg Tablet) 650 mg PO Q6H PRN PRN Reason: Pain, Mild (Pain Scale 1-3) Last Admin: 01/17/24 19:35 Dose: 650 mg Documented By: IRMA Amlodipine Besylate (Amlodipine Besylate 5 Mg Tablet) 5 mg PO DAILY [facility]; Protocol Last Admin: 01/18/24 08:06 Dose: 5 mg Documented By: ARSENIO Aspirin (Aspirin Enteric Coated 81 Mg Tablet.) 81 mg PO DAILY [facility] Last Admin: 01/18/24 08:06 Dose: 81 mg Documented By: ARSENIO Atorvastatin Calcium (Atorvastatin Calcium 10 Mg Tablet) 10 mg PO BEDTIME [facility] Last Admin: 01/17/24 22:09 Dose: 10 mg Documented By: IRMA Dextrose (Dextrose 50 % 25 Gm/50 Ml Syringe) 25 gm IVPUSH Q15M PRN; Protocol PRN Reason: per Hypoglycemia Standing Ord. Docusate Sodium (Docusate Sodium 100 Mg Capsule) 100 mg PO BID [facility] Last Admin: 01/18/24 08:05 Dose: 100 mg Documented By: ARSENIO Furosemide (Furosemide 40 Mg Tablet) 40 mg PO DAILY [facility]; Protocol Last Admin: 01/14/24 08:27 Dose: 40 mg Documented By: JONNFAA Glucose (Glucose Gel 15 Gm Gel..Gram.) 15 gm PO Q15M PRN; Protocol PRN Reason: per Hypoglycemia Standing Ord. Insulin Glargine (Insulin Glargine,Hum.Rec.Anlog 100 Unit/Ml 10 Ml Vial) 37 unit SUBCUT BEDTIME [facility] Last Admin: 01/17/24 22:09 Dose: 37 unit Documented By: IRMA Insulin Human Lispro (Insulin Lispro 100 Unit/Ml 3 Ml Vial) 0 unit SUBCUT QIDACHS [facility]; Protocol Last Admin: 01/18/24 08:01 Dose: Not Given Documented By: ARSENIO Non-Admin Reason: No Insulin Coverage Levothyroxine Sodium (Levothyroxine Sodium 25 Mcg Tablet) 25 mcg PO DAILY@0600 [facility] Last Admin: 01/18/24 05:09 Dose: 25 mcg Documented By: IRMA Magnesium Hydroxide (Milk Of Magnesia 30 Ml Oral.Susp) 15 ml PO BID PRN PRN Reason: Constipation Melatonin (Melatonin 3 Mg Tablet) 6 mg PO BEDTIME PRN PRN Reason: Insomnia Metoprolol Succinate (Metoprolol Succinate Er 100 Mg Tab.Er.24h) 200 mg PO DAILY [facility]; Protocol Last Admin: 01/18/24 08:05 Dose: 200 mg Documented By: ARSENIO Multivitamins/Vitamin C (Multivitamin Tablet) 1 tab PO DAILY [facility] Last Admin: 01/18/24 08:06 Dose: 1 tab Documented By: ARSENIO Nystatin (Nystatin Powder 15 Gm Bottle) 1 appl TOPICAL TID [facility]; Protocol Last Admin: 01/18/24 08:07 Dose: 1 appl Documented By: ARSENIO Ondansetron HCl (Ondansetron Hcl 4 Mg/2 Ml Vial) 4 mg IVPUSH Q8H PRN PRN Reason: Nausea and Vomiting Oxycodone HCl (Oxycodone Hcl Immed Release 5 Mg Tablet) 5 mg PO Q4H PRN PRN Reason: Pain, Severe (Pain Scale 7-10) Last Admin: 01/18/24 04:43 Dose: 5 mg Documented By: IRMA Polyethylene Glycol (Polyethylene Glycol 3350 17 Gm Powd.Pack) 17 gm PO BID [facility] Last Admin: 01/18/24 08:05 Dose: 17 gm Documented By: ARSENIO Sodium Chloride (0.9 % Sodium Chloride Flush 3 Ml Syringe) 3 ml IVFLUSH QSHIFT [facility] Last Admin: 01/18/24 08:06 Dose: 3 ml Documented By: ARSENIO Valsartan (Valsartan 40 Mg Tablet) 20 mg PO BID [facility]; Protocol Last Admin: 01/14/24 08:27 Dose: 20 mg Documented By: CHRISTOPHER Warfarin Sodium (Warfarin Sodium 1 Mg Tablet) 1 mg PO MoWeFr@1800 [facility] Last Admin: 01/15/24 17:59 Dose: 1 mg Documented By: YUNIER Warfarin Sodium (Warfarin Sodium 2 Mg Tablet) 2 mg PO SuTuThSa@1800 [facility] Last Admin: 01/17/24 17:24 Dose: 2 mg Documented By: TREY Labs 01/14/24 05:08 01/18/24 07:57 Labs: Laboratory Results - last 24 hr 01/17/24 01/17/24 01/17/24 11:32 16:50 20:20 Hold Purple Top PT INR Anion Gap Estim Creat Clear Calc Estimated GFR POC Glucose 122 H 145 H 178 H Random Glucose Calcium 01/18/24 01/18/24 07:50 07:57 Hold Purple Top SEE NOTE PT 33.5 H D INR 2.8 H Anion Gap 13 Estim Creat Clear Calc 35.7 Estimated GFR 36 POC Glucose 98 Random Glucose 90 Calcium 8.6 Assessment and Plan (1) DOROTHY (acute kidney injury): Status: Acute Plan 83-year-old female with pertinent history of congestive heart failure with preserved ejection fraction, permanent atrial fibrillation on Coumadin, CKD stage 3, hypothyroidism, insulin-dependent diabetes mellitus, essential hypertension, neurogenic bladder status post suprapubic catheter who presents to the emergency department for evaluation of a fall found to be in chf Right groin pain ? related to arterial stent, placed at endovascular center CT abdomen/pelvis, no obvious cause of pain hip/pelvis xray no acute fracture of malalignment vascular surgery consult pending DOROTHY on CKD 3 SCr trending down continue to hold losartan, hold lasix d/w urology - has suprapubic catheter - has outpatient follow up appt. no further work up needed follow renal function HFpEF transitioned to po lasix but currently on hold for DOROTHY echo results noted seen by cardiology - no further work up required Bilateral hydroureter with hydronephrosis No further workup per Urology, recommend outpatient follow-up as scheduled Insulin-dependent diabetes mellitus ss, ada diet Essential hypertension hold losartan for DOROTHY continue norvasc, toprol xl Paroxysmal atrial fibrillation continue Coumadin as ordered INR remains low, will give extra dose today follow INR DISPO pt evaluation - rec home with PT services Coumadin Attending Dr. Estrada Full code Requires ongoing hospitalization for safe disposition, close monitoring of renal function Quality Stroke Does the patient have a stroke diagnosis?: No VTE Prior VTE?: No VTE Risk Level:: Medical - moderate - high VTE Device Contraindication: Treatment Not Indicated VTE Drug Contraindication: N/A - Med Ordered
[2024-01-18 12:52] LABS: Glucose, Whole Blood 86 mg/dL (60-115)
[2024-01-18] MEDS: Furosemide 40 MG/4 ML VIAL IVPUSH (13:45)
--- NOTE | 2024-01-18 14:04 | MHC.CM.PN ---
EMR REVIEWED AND PER MD ROUNDS, PT WILL NEED TO BE SEEN BY VASCULAR. CM WILL CONTINUE TO FOLLOW FOR ANY CHANGE IN DC PLAN/NEEDS
[2024-01-18 15:36] VITALS: BP 132/59; PULSE 94; RESP 18; TEMP 37; O2SAT 93
--- NOTE | 2024-01-18 16:05 | PM.EVENT ---
Event Note Date of Service: 01/18/24 Event Note: Consult requested. Patient of Dr. Raphael's who they reached out to and did not respond. No stent identified in the common femoral region on CT scan dated 01/10. She has had several interventions through that groin. Would recommend follow-up with Dr. Raphael Time Spent With Patient Time: Total time managing care of this patient today ____ minutes.
[2024-01-18 16:24] LABS: Glucose, Whole Blood 117 mg/dL (60-115)
[2024-01-18] MEDS: Warfarin Sodium 1 MG TABLET PO (17:50)
[2024-01-18 19:48] VITALS: BP 139/71; PULSE 94; RESP 18; TEMP 35.8; O2SAT 93
[2024-01-18 20:11] LABS: Glucose, Whole Blood 120 mg/dL (60-115)
[2024-01-18] MEDS: Atorvastatin Calcium 10 MG TABLET PO (22:37)
[2024-01-18] MEDS: Insulin Glargine,Hum.rec.anlog 100 UNIT/ML 10 ML VIAL 37 UNIT SUBCUT (22:37)
[2024-01-19] MEDS: 0.9 % Sodium Chloride Flush 3 ML SYRINGE IVFLUSH ×4 (00:55→23:56)
[2024-01-19 03:41] VITALS: BP 137/68; PULSE 94; RESP 18; TEMP 36.2; O2SAT 90
[2024-01-19 05:16] VITALS: O2SAT 92
[2024-01-19 05:36] LABS: Anion Gap 15 (12-20); Blood Urea Nitrogen 25 mg/dL (9-16); Calcium 8.2 mg/dL (8.4-10.2); Carbon Dioxide 23 mmol/L (22-29); Chloride 100 mmol/L (96-108); Creatinine Clr Calc Pharmacy 34.9; Estimated Glomerular Filt Rate 35; Glucose Random 93 mg/dL (60-115); INTERNATIONAL NORM RATIO 2.7 (0.9-1.1); Potassium 3.7 mmol/L (3.3-5.1); Prothrombin Time 32.4 SEC (11.1-13.3); Sodium 134 mmol/L (135-145)
[2024-01-19] MEDS: Levothyroxine Sodium 25 MCG TABLET PO (06:07)
[2024-01-19 07:17] VITALS: BP 140/68; PULSE 69; RESP 14; TEMP 36.6; O2SAT 96
[2024-01-19 07:42] LABS: Glucose, Whole Blood 97 mg/dL (60-115)
[2024-01-19] MEDS: Aspirin Enteric Coated 81 MG TABLET.DR PO (11:00)
[2024-01-19] MEDS: Docusate Sodium 100 MG CAPSULE PO (11:00)
[2024-01-19] MEDS: Multivitamin TABLET 1 TAB PO (11:00)
[2024-01-19] MEDS: Metoprolol Succinate ER 100 MG TAB.ER.24H 200 MG PO (11:00)
[2024-01-19] MEDS: amLODIPine Besylate 5 MG TABLET PO (11:00)
[2024-01-19] MEDS: polyethylene glycoL 3350 17 GM POWD.PACK PO (11:01)
[2024-01-19] MEDS: Nystatin Powder 15 GM BOTTLE 1 APPL TOPICAL ×3 (11:01→21:36)
--- NOTE | 2024-01-19 11:13 | P.F2F_ITS ---
Service Date Service Date: 01/19/24 Encounter Date of encounter: 01/19/24 Reasons for Services Signs and symptoms assessed: DOROTHY weakness groin pain Reason for retirement: CV/CP assess and/or care and monitoring of PT/INR Reason for physical therapy: home safety and mobility Homebound: Leaving the home is medically contraindicated at this time without the asist of a device and/or another person due th the listed conditions above and below. Reason homebound: unsteady gait / fall risk Certification: Based on the above findings, I certify that this patient is confined to the home and needs intermittent retirement care, physical therapy and/or speech therapy, or continues to need occupational therapy. The patient is under my care, and I have initiated the establishment of the plan of care. The patient will be followed by a physician who will periodically review the plan of care. Time Spent With Patient Time: Total time managing care of this patient today ____ minutes.
--- NOTE | 2024-01-19 11:15 | P.DS_ITS ---
DS: Providers Provider Date of Service: 01/19/24 Date of admission: 01/12/24 02:46 Primary care physician: Nano Delaney MD Consults: 01/12/24 06:23 Consult to Wound Care Routine Reason for consultation: rash RUE,redness to coccyx Has provider been notified: Yes 01/12/24 06:30 Consult to Urology Routine Consulting Provider: Keith Sharma Reason for consultation: Bilateral hydroureter with hydronephrosis 01/13/24 13:53 Consult to Cardiology Routine Consulting Provider: [facility] Services Reason for consultation: CHF Has provider been notified: Yes 01/18/24 06:00 Consult to Vascular Surgery Routine Consulting Provider: [facility] [place] V[facility] Reason for consultation: right groin pain, ? stent migration 01/19/24 00:40 Consult to Wound Care Routine Reason for consultation: skin fungus bilateral groin,perineal area,MASD bilateral buttocks, Has provider been notified: No DS: Diagnosis Discharge Diagnosis (1) DOROTHY (acute kidney injury): Status: Acute DS: Summary Hospital Course Hospital Course: History and physical as per admitting provider. This is a 83-year-old female with pertinent history of congestive heart failure with preserved ejection fraction, permanent atrial fibrillation on Coumadin, CKD stage 3, hypothyroidism, insulin-dependent diabetes mellitus, essential hypertension, neurogenic bladder status post suprapubic catheter who presents to the emergency department for evaluation of a fall. Patient stated that she lost balance and fell when she was in her living room. Did not lose consciousness. No chest pain or palpitations. No jerking movement of extremities. Patient also states that she has been having episodes of choking and cough which is worse when lying down. Does not use oxygen at home. Patient is compliant with home Lasix. The cough is nonproductive. No fever, chills, palpitations, abdominal pain, changes in urinary or bowel habits. She endorses groin pain which is worse with movement.In the emergency department, imaging with vascular congestion and BNP found to be elevated. Also found to have elevated creatinine. 83-year-old woman admitted after a fall at home and found to be in CHF. She was treated with IV Lasix but due to DOROTHY transition back to oral Lasix. Echocardiogram showing normal EF. Seen evaluated by Cardiology with no further workup required. She was noted to have bilateral hydroureter with hydronephrosis and seen by Urology with no recommendation for further workup but outpatient follow-up as scheduled. Suprapubic catheter intact. DOROTHY resolved with IV fluids. Recheck BMP in 3 days. She also had some right groin pain which she reports she had a stent placed on [place] time in the endovascular center by Dr. Chaudhari. She was seen and evaluated by vascular surgery at [facility] who reported no stent identified in the common femoral region on CT scan from 01/11/2024, recommendations to follow-up with Dr. Chaudhari in his office. Plan is to discharge patient home with physical therapy. Paroxysmal atrial fibrillation. Continue warfarin, check PT INRs Hypertension. Continue losartan, Norvasc and Toprol Diabetes mellitus type 2. Continue home medications Physical Exam Vital Signs: Vital Signs: Last Vital Signs Temp 97.8 F 01/19/24 07:17 Pulse 69 01/19/24 07:17 Resp 14 01/19/24 07:17 BP 140/68 H 01/19/24 07:17 Pulse Ox 96 01/19/24 07:17 O2 Del Method Room Air 01/19/24 07:17 BMI result Body Mass Index 31.8 Appearing in no acute distress head is normocephalic atraumatic eyes pupils are PERRLA sclera is anicteric mouth throat mucous membranes are intact and moist neck is supple no lymphadenopathy, no JVD noted lung sounds are clear to auscultation heart regular rate rhythm, clear S1, S2 positive bowel sounds, abdomen is soft, nontender neuro patient is alert x3, no focal deficits DS: Data Data Completed and Pending Completed studies during hospitalization [Text1]: Procedures Extirpation of Matter from Bladder, Via Natural or Artificial Opening Endoscopic (06/27/22) Fluoroscopy of Kidneys, Ureters and Bladder (06/27/22) Replacement of Right Hip Joint with Synthetic Substitute, Uncemented, Open Approach (07/07/23) Labs on day of discharge: Laboratory Results - last 24 hr 01/18/24 01/18/24 01/18/24 12:49 16:10 19:50 PT INR Sodium Potassium Chloride Carbon Dioxide Anion Gap BUN Creatinine Estim Creat Clear Calc Estimated GFR POC Glucose 86 117 H 120 H Random Glucose Calcium 01/19/24 01/19/24 05:03 07:19 PT 32.4 H INR 2.7 H Sodium 134 L Potassium 3.7 Chloride 100 Carbon Dioxide 23 Anion Gap 15 BUN 25 H Creatinine 1.42 H Estim Creat Clear Calc 34.9 Estimated GFR 35 POC Glucose 97 Random Glucose 93 Calcium 8.2 L Discharge Plan Discharge Anticipated Discharge Date/Time: 01/19/24 11:08 Patient Disposition: Home Health Service Discharge Diagnosis: DOROTHY Groin pain Bilateral hydronephrosis Referrals: Nano Delaney MD [Primary Care Provider] - 1 Week Juan José Chaudhari MD [Physician] - 1 Week Discharge Medications: Continued atorvastatin 10 mg tablet 10 mg PO BEDTIME Qty: 90 3RF melatonin 5 mg tablet 10 mg PO BEDTIME PRN (Reason: Sleep) metoprolol succinate 200 mg tablet extended release 24 hr 200 mg PO DAILY Qty: 90 3RF valsartan 40 mg tablet 20 mg PO BID 90 Days Qty: 90 3RF Protocol: Hold for SBP< HOLD for SBP < : 90 Rx Instructions: Take half tab (20mg) in the AM and Take half tab (20mg) in the PM. PreserVision AREDS 2,148 mcg-113 mg-45 mg-17.4mg Tablet 1 tab PO BIDWM Rx Instructions: administer with AM and PM meals warfarin 1 mg Tablet 1 mg PO MOWEFR insulin glargine [Lantus U-100 Insulin] 100 unit/mL solution 37 unit subcut BEDTIME warfarin 2 mg tablet 2 mg PO Protocol: Dose Management Condition: Thursday (Week One) Dose/Route: 2 mg Instruction: 1 x 2 mg tablet Condition: Thursday Dose/Route: 1 mg Instruction: 0.5 x 2 mg tablets Condition: Thursday Dose/Route: 2 mg Instruction: 1 x 2 mg tablet Condition: Thursday Dose/Route: 1 mg Instruction: 0.5 x 2 mg tablets Condition: Dose/Route: 2 mg Instruction: 1 x 2 mg tablet Condition: Thursday Dose/Route: 0 mg Instruction: 0 tablets Condition: Thursday Dose/Route: 1 mg Instruction: 0.5 x 2 mg tablets Condition: Thursday (Week Two) Dose/Route: 2 mg Instruction: 1 x 2 mg tablet Condition: Thursday Dose/Route: 1 mg Instruction: 0.5 x 2 mg tablets Condition: Thursday Dose/Route: 2 mg Instruction: 1 x 2 mg tablet Condition: Thursday Dose/Route: 1 mg Instruction: 0.5 x 2 mg tablets Condition: Dose/Route: 2 mg Instruction: 1 x 2 mg tablet Condition: Thursday Dose/Route: 1 mg Instruction: 0.5 x 2 mg tablets Condition: Thursday Dose/Route: 2 mg Instruction: 1 x 2 mg tablet Protocol Text: Adjustment Start Date: Thursday01/08/24 INR Value: 3.7 INR Date: 01/08/24 Recheck Date: 01/15/24 warfarin 2 mg Tablet 2 mg PO SUTUTHSA Jardiance 10 mg Tablet 10 mg PO DAILY Qty: 30 0RF nystatin 100,000 unit/gram Powder 1 appl topical BID Qty: 30 0RF Protocol: Apply to: Apply to: groin furosemide [Lasix] 40 mg tablet 40 mg PO DAILY Qty: 30 0RF levothyroxine 25 mcg tablet 25 mcg PO DAILY aspirin 81 mg tablet,delayed release (DR/EC) 81 mg PO DAILY (DME) pen needle, diabetic [BD Cathy 2nd Gen Pen Needle] 32 gauge x 5/32 needle See Rx Instructions subcut DAILY Qty: 50 Rx Instructions: As directed (DME) lancets [FreeStyle Lancets] 28 gauge misc See Rx Instructions .ROUTE BID Qty: 100 Rx Instructions: As directed multivitamin [One Daily Multivitamin] Tablet 1 tab PO DAILY amlodipine 5 mg tablet 5 mg PO DAILY Diet: Advance to usual diet Activity on Discharge: As tolerated Stand Alone Forms: Patient Portal Discharge page Other Ambulatory Orders: Basic Metabolic Panel (Routine) Timeframe: 3 Days Facility: [facility] - Location: Laboratory Ordered By: Patricia Saleh Care Plan Goals: Follow-up with Dr. Raphael in endovascular center Health Concerns: DOROTHY Groin pain Bilateral hydronephrosis Plan of Treatment: Follow-up with primary care provider as needed Take all medications as prescribed Assessment: See discharge summary
[2024-01-19 11:24] LABS: Glucose, Whole Blood 86 mg/dL (60-115)
--- NOTE | 2024-01-19 11:58 | P.PNIM_ITS ---
Subjective Subjective Date of Service: 01/19/24 Interval History: seen and examined this morning follow up for DOROTHY, groin pain still reporting groin pain, no change. no abdominal pain now with congested cough Review of Systems Review of Systems: Yes all other systems are reviewed and are negative Constitutional Constitutional: Denies chills and Denies fever(s) Cardiovascular Cardiovascular: Denies chest pain, Denies palpitations and Denies dyspnea Respiratory Respiratory: Denies cough and Denies dyspnea Gastrointestinal Gastrointestinal: Denies abdominal pain Endocrine Endocrine: Denies palpitations Physical Exam 2 Vital Signs: Vital Signs: Last Vital Signs Temp 97.8 F 01/19/24 07:17 Pulse 69 01/19/24 07:17 Resp 14 01/19/24 07:17 BP 140/68 H 01/19/24 07:17 Pulse Ox 96 01/19/24 07:17 O2 Del Method Room Air 01/19/24 07:17 BMI result Body Mass Index 31.8 Appearing in no acute distress lung sounds are clear to auscultation heart regular rate rhythm, clear S1, S2 positive bowel sounds, abdomen is soft, nontender neuro patient is alert x3, no focal deficits Objective Data Active Medications Acetaminophen (Acetaminophen 325 Mg Tablet) 650 mg PO Q6H PRN PRN Reason: Pain, Mild (Pain Scale 1-3) Last Admin: 01/17/24 19:35 Dose: 650 mg Documented By: IRMA Amlodipine Besylate (Amlodipine Besylate 5 Mg Tablet) 5 mg PO DAILY [facility]; Protocol Last Admin: 01/19/24 11:00 Dose: 5 mg Documented By: JEANA Aspirin (Aspirin Enteric Coated 81 Mg Tablet.) 81 mg PO DAILY [facility] Last Admin: 01/19/24 11:00 Dose: 81 mg Documented By: JEANA Atorvastatin Calcium (Atorvastatin Calcium 10 Mg Tablet) 10 mg PO BEDTIME [facility] Last Admin: 01/18/24 22:37 Dose: 10 mg Documented By: KELLI Dextrose (Dextrose 50 % 25 Gm/50 Ml Syringe) 25 gm IVPUSH Q15M PRN; Protocol PRN Reason: per Hypoglycemia Standing Ord. Docusate Sodium (Docusate Sodium 100 Mg Capsule) 100 mg PO BID [facility] Last Admin: 01/19/24 11:00 Dose: 100 mg Documented By: JEANA Furosemide (Furosemide 40 Mg Tablet) 40 mg PO DAILY [facility]; Protocol Last Admin: 01/14/24 08:27 Dose: 40 mg Documented By: JONNFAA Glucose (Glucose Gel 15 Gm Gel..Gram.) 15 gm PO Q15M PRN; Protocol PRN Reason: per Hypoglycemia Standing Ord. Insulin Glargine (Insulin Glargine,Hum.Rec.Anlog 100 Unit/Ml 10 Ml Vial) 37 unit SUBCUT BEDTIME [facility] Last Admin: 01/18/24 22:37 Dose: 37 unit Documented By: KELLI Insulin Human Lispro (Insulin Lispro 100 Unit/Ml 3 Ml Vial) 0 unit SUBCUT QIDACHS [facility]; Protocol Last Admin: 01/19/24 11:28 Dose: Not Given Documented By: JEANA Non-Admin Reason: No Insulin Coverage Levothyroxine Sodium (Levothyroxine Sodium 25 Mcg Tablet) 25 mcg PO DAILY@0600 [facility] Last Admin: 01/19/24 06:07 Dose: 25 mcg Documented By: KHANH Magnesium Hydroxide (Milk Of Magnesia 30 Ml Oral.Susp) 15 ml PO BID PRN PRN Reason: Constipation Melatonin (Melatonin 3 Mg Tablet) 6 mg PO BEDTIME PRN PRN Reason: Insomnia Metoprolol Succinate (Metoprolol Succinate Er 100 Mg Tab.Er.24h) 200 mg PO DAILY [facility]; Protocol Last Admin: 01/19/24 11:00 Dose: 200 mg Documented By: JEANA Multivitamins/Vitamin C (Multivitamin Tablet) 1 tab PO DAILY [facility] Last Admin: 01/19/24 11:00 Dose: 1 tab Documented By: JEANA Nystatin (Nystatin Powder 15 Gm Bottle) 1 appl TOPICAL TID [facility]; Protocol Last Admin: 01/19/24 11:01 Dose: 1 appl Documented By: JEANA Ondansetron HCl (Ondansetron Hcl 4 Mg/2 Ml Vial) 4 mg IVPUSH Q8H PRN PRN Reason: Nausea and Vomiting Oxycodone HCl (Oxycodone Hcl Immed Release 5 Mg Tablet) 5 mg PO Q4H PRN PRN Reason: Pain, Severe (Pain Scale 7-10) Last Admin: 01/18/24 04:43 Dose: 5 mg Documented By: IRMA Polyethylene Glycol (Polyethylene Glycol 3350 17 Gm Powd.Pack) 17 gm PO BID [facility] Last Admin: 01/19/24 11:01 Dose: 17 gm Documented By: JEANA Sodium Chloride (0.9 % Sodium Chloride Flush 3 Ml Syringe) 3 ml IVFLUSH QSHIFT [facility] Last Admin: 01/19/24 11:01 Dose: 3 ml Documented By: JEANA Valsartan (Valsartan 40 Mg Tablet) 20 mg PO BID [facility]; Protocol Last Admin: 01/14/24 08:27 Dose: 20 mg Documented By: CHRISTOPHER Warfarin Sodium (Warfarin Sodium 1 Mg Tablet) 1 mg PO [email or web address]@1800 [facility] Last Admin: 01/18/24 17:50 Dose: 1 mg Documented By: KELLI Warfarin Sodium (Warfarin Sodium 2 Mg Tablet) 2 mg PO [email or web address]@1800 [facility] Last Admin: 01/17/24 17:24 Dose: 2 mg Documented By: TREY Labs 01/14/24 05:08 01/19/24 05:03 Labs: Laboratory Results - last 24 hr 01/18/24 01/18/24 01/18/24 12:49 16:10 19:50 PT INR Anion Gap Estim Creat Clear Calc Estimated GFR POC Glucose 86 117 H 120 H Random Glucose Calcium 01/19/24 01/19/24 01/19/24 05:03 07:19 11:00 PT 32.4 H INR 2.7 H Anion Gap 15 Estim Creat Clear Calc 34.9 Estimated GFR 35 POC Glucose 97 86 Random Glucose 93 Calcium 8.2 L Assessment and Plan (1) DOROTHY (acute kidney injury): Status: Acute Plan 83-year-old female with pertinent history of congestive heart failure with preserved ejection fraction, permanent atrial fibrillation on Coumadin, CKD stage 3, hypothyroidism, insulin-dependent diabetes mellitus, essential hypertension, neurogenic bladder status post suprapubic catheter who presents to the emergency department for evaluation of a fall found to be in chf HFpEF initially with CHF on IV lasix but resolved, echo on 01/12/24 with EF of 45-50% cxr today showing enlarged heart with vascular congestion and mild interstitial edema start IV lasix 20mg BID cardiology re-consult Congested cough secondary to HCAP cxr today with and new airspace disease in the right upper lung Will start Rocephin and azithromycin resp path panel pending Right groin pain ? related to arterial stent, placed at endovascular center CT abdomen/pelvis, no obvious cause of pain hip/pelvis xray no acute fracture of malalignment vascular surgery consult> no stent seen on imaging, doubt migration. f/u o/p with Dr. Chaudhari at endovascular clinic DOROTHY on CKD 3 SCr trending down continue to hold losartan d/w urology - has suprapubic catheter - has outpatient follow up appt. no further work up needed follow renal function Bilateral hydroureter with hydronephrosis No further workup per Urology, recommend outpatient follow-up as scheduled Insulin-dependent diabetes mellitus ss, ada diet Essential hypertension hold losartan for DOROTHY continue norvasc, toprol xl Paroxysmal atrial fibrillation continue Coumadin follow INR daily DISPO pt evaluation - rec home with PT services when medically clear Coumadin Attending Dr. Estrada Full code Requires ongoing hospitalization for safe disposition, close monitoring of renal function Quality Stroke Does the patient have a stroke diagnosis?: No VTE Prior VTE?: No VTE Risk Level:: Medical - moderate - high VTE Device Contraindication: Treatment Not Indicated VTE Drug Contraindication: N/A - Med Ordered
--- NOTE | 2024-01-19 12:00 | PC.NURSE ---
Right heel intact callused area. Area not boggy. Foam dressing applied.
--- NOTE | 2024-01-19 12:02 | PC.NURSE ---
Left buttock open area with surrounding redness. Foam dressing applied
--- NOTE | 2024-01-19 12:07 | PC.NURSE ---
Right buttock reddened, excoriated areas. Foam dressing applied to bilat buttocks
[2024-01-19 15:07] VITALS: BP 146/65; PULSE 91; RESP 16; TEMP 36.8; O2SAT 92
[2024-01-19] MEDS: Furosemide 20 MG/2 ML VIAL IVPUSH ×2 (15:29→17:58)
--- NOTE | 2024-01-19 15:38 | MHC.CM.PN ---
CM SPOKE WITH DAUGHTER/HCP LIZBETH WITH UPDATE ON NO DC TODAY DUE TO NEW PNA DX. CM WILL CONTINUE TO FOLLOW FOR ANY CHANGE IN DC PLAN/NEEDS. [facility] NOTIFIED OF NO DC TODAY.
[2024-01-19 16:21] LABS: Glucose, Whole Blood 147 mg/dL (60-115)
--- NOTE | 2024-01-19 17:20 | HO.WOUND ---
Wound Consult: Follow up for Buttock and New consult for Right Heel Found during P&I study. 83yr old F admitted to [facility] on 01/12/24 - See progress notes and H&P for detailed history.? Wound consult follow up for bilateral buttock and perineal area documented as MASD-IAD.? Patient agreeable to assessment and photo documentation.? Bilateral Heels assessed left heel intact - right heel observed to have resolving unstageable pressure injury - suspect was DTI however patient has been treated at the out patient wound clinic and the wound was most recently documented as Unstageable Pressure Injury. The wound is detailed below. Right Heel Etiology: ??Resolving Unstageable Pressure Injury Present on Admission Measurements: see charting for detailed measurements Wound Bed: dry intact dark pigmented tissue nonblanchable with dry epidermal layer - appears to be resolving Drainage / Odor: None Edges: ? Irregular Stephania wound: Intact pink blanchable tissue -? No Induration, Fluctuance or Warmth noted Pain: denies Goals of Treatment: ? Foam dressing to protect from friction and off load heel pressure from surface of bed and recliner chair Bilateral Buttock Etiology: ?Previously documented MASD (Moisture Associated Skin Damage) noted on admission - No pressure injury noted despite pigmentation changes - see details below. Measurements: Bilateral buttock - generalized area Wound Bed: red light purple blanchable tissue - with in gluteal fold mirrored edges significant for moisture trapping - left buttock with two irregular lesions with dark purple maroon nonblanchable tissue - scattered areas of tissue loss - there areas are not consistent with Pressure location and are located with in the Gluteal fold not consistent with pressure - chart review reveals patient has a Therapeutic INR 2.7 / PT 32.4 level which can explain the pigmentation changes along with friction Due to mixed incontinence within the gluteal fold resulting in irregular pigmentation changes Drainage / Odor: None at the time of my assessment Edges: ? Irregular and mirrored Stephania wound: ?Intact pink blanchble erythema - No Induration, Fluctuance or Warmth noted Pain: reports tenderness and pain when incontinence care provided Goals of Treatment: ? Triad to protect from moisture and friction and off load pressure to protect from pressure injury development Of note the patient was incontinent of soft stool - Barrier cream applied. Recommendations: 1. Turn and Reposition every 2 hours and as needed for patient comfort.? Use pillows or wedges to support off loading positions. 2. Off Load all bony prominences with use of pillows and heel boots if needed.? Apply Preventative foams where needed. ? 3. Monitor for incontinence and moisture control, use barrier creams when needed for prevention and treatment. 4. Provide adequate and supplemental nutrition.? 5. Order low air loss mattress. 6. When applicable maintain blood glucose levels per Providers order. 7. Perineal and Buttock - Off Load Pressure - Cleanse with PH balance spray or wipes, pat dry. ?Apply thin layer of Triad to wound bed - only pat and dab no scrub and rub when soiling occurs. Reapply thin layer PRN after each episode of incontinence. 8. Right Heel - Apply Skin Prep wipe allow to dry. Cover with foam dressing to aid in off loading. Peel back and assess Q shift change every 3 days and PRN. Off Load Pressure from recliner or bedsurface with pillow or heel boot protector. Re-consult wound care Nurse for wound deterioration or wound changes.
[2024-01-19] MEDS: Warfarin Sodium 2 MG TABLET PO (17:58)
[2024-01-19] MEDS: guaiFENesin DM 100/10/5 ML 5 ML SYRUP PO ×2 (18:06→23:56)
[2024-01-19 19:24] VITALS: BP 136/81; PULSE 97; RESP 16; TEMP 36.9; O2SAT 93
[2024-01-19 20:34] LABS: Glucose, Whole Blood 174 mg/dL (60-115)
[2024-01-19] MEDS: Atorvastatin Calcium 10 MG TABLET PO (20:57)
[2024-01-19] MEDS: Insulin Lispro 100 UNIT/ML 3 ML VIAL SUBCUT (20:58)
[2024-01-19] MEDS: Insulin Glargine,Hum.rec.anlog 100 UNIT/ML 10 ML VIAL 37 UNIT SUBCUT (20:58)
[2024-01-20 03:43] VITALS: BP 134/81; PULSE 111; RESP 18; TEMP 36; O2SAT 93
[2024-01-20] MEDS: Levothyroxine Sodium 25 MCG TABLET PO (05:55)
[2024-01-20 06:41] VITALS: BP 134/72; PULSE 81; RESP 17; TEMP 36.6; O2SAT 91
[2024-01-20 06:57] LABS: Anion Gap 12 (12-20); Blood Urea Nitrogen 30 mg/dL (9-16); Calcium 8.4 mg/dL (8.4-10.2); Carbon Dioxide 26 mmol/L (22-29); Chloride 102 mmol/L (96-108); Creatinine Clr Calc Pharmacy 33.5; Estimated Glomerular Filt Rate 34; Glucose Random 70 mg/dL (60-115); Potassium 3.5 mmol/L (3.3-5.1); Sodium 136 mmol/L (135-145)
[2024-01-20 06:59] LABS: Glucose, Whole Blood 73 mg/dL (60-115)
[2024-01-20 08:20] LABS: Glucose, Whole Blood 78 mg/dL (60-115)
[2024-01-20 08:23] LABS: INTERNATIONAL NORM RATIO 2.7 (0.9-1.1); Prothrombin Time 33.4 SEC (11.1-13.3)
[2024-01-20] MEDS: 0.9 % Sodium Chloride Flush 3 ML SYRINGE IVFLUSH ×2 (09:19→17:34)
[2024-01-20] MEDS: amLODIPine Besylate 5 MG TABLET PO (09:19)
[2024-01-20] MEDS: Furosemide 20 MG/2 ML VIAL IVPUSH (09:19)
[2024-01-20] MEDS: Metoprolol Succinate ER 100 MG TAB.ER.24H 200 MG PO (09:19)
[2024-01-20] MEDS: Multivitamin TABLET 1 TAB PO (09:19)
[2024-01-20] MEDS: Aspirin Enteric Coated 81 MG TABLET.DR PO (09:19)
[2024-01-20] MEDS: Nystatin Powder 15 GM BOTTLE 1 APPL TOPICAL ×3 (09:20→19:55)
--- NOTE | 2024-01-20 09:24 | P.PNUR_ITS ---
Subjective Subjective Date of Service: 01/20/24 Interval history: Lasic renogram performed No evidence of delayed emptying from either kidney Has bilateral hydroueteronephrosis but no functional obstruction mild elevated Creatinine reflects underlying renal function No acute urology issues Physical Exam 2 Vital Signs: Vital Signs: Last Vital Signs Temp 98 F 01/20/24 06:41 Pulse 81 01/20/24 06:41 Resp 17 01/20/24 06:41 BP 134/72 01/20/24 06:41 Pulse Ox 91 L 01/20/24 06:41 O2 Del Method Room Air 01/20/24 06:41 BMI result Body Mass Index 31.8 Const: General: cooperative, healthy appearing, comfortable and no acute distress Orientation/consciousness: patient oriented x3 HEENT: Face and sinus: Yes normal facial exam Mouth: moist mucous membranes Neck: Neck: Yes normal visual inspection, Yes full ROM and Yes trachea midline Chest: Chest palpation & inspection: normal inspection of the chest Resp: Effort & Inspection: normal respiratory effort, able to speak in complete sentences and no respiratory distress GI: Inspection: Yes normal to inspection Back/Spine/Pelvis: Cervical Spine: normal cervical lordosis Thoracic/Lumbar Spine: thoracic and lumbar spine normal to inspection Skin: General skin exam: no rashes or lesions noted Neuro: General: patient oriented x3, tone normal and moves all extremities Extrem: General: Yes normal to inspection and Yes capillary refill normal Urology Results Labs 01/14/24 05:08 01/20/24 05:34 Labs: Laboratory Results - last 24 hr 01/19/24 01/19/24 01/19/24 11:00 16:12 20:25 PT INR Sodium Potassium Chloride Carbon Dioxide Anion Gap BUN Creatinine Estim Creat Clear Calc Estimated GFR POC Glucose 86 147 H 174 H Random Glucose Calcium 01/20/24 01/20/24 01/20/24 05:34 06:40 07:28 PT 33.4 H INR 2.7 H Sodium 136 Potassium 3.5 Chloride 102 Carbon Dioxide 26 Anion Gap 12 BUN 30 H Creatinine 1.48 H Estim Creat Clear Calc 33.5 Estimated GFR 34 POC Glucose 73 Random Glucose 70 Calcium 8.4 01/20/24 08:17 PT INR Sodium Potassium Chloride Carbon Dioxide Anion Gap BUN Creatinine Estim Creat Clear Calc Estimated GFR POC Glucose 78 Random Glucose Calcium Progress Note: A&P Assessment and plan (1) Hydronephrosis determined by ultrasound: Status: Acute Plan continue with SPT bladder drainage Time Spent With Patient Time: Total time managing care of this patient today ____ minutes. Progress Note: Quality Stroke Does the patient have a stroke diagnosis?: No
[2024-01-20] MEDS: guaiFENesin DM 100/10/5 ML 5 ML SYRUP PO ×3 (09:40→19:54)
[2024-01-20 11:12] LABS: Glucose, Whole Blood 121 mg/dL (60-115)
--- NOTE | 2024-01-20 11:36 | MHC.CM.PN ---
PATIENT NOT CLINICALLY READY FOR DISCHARGE UPDATES ATTACHED IN [facility]. CASE MANAGEMENT FOLLOWING.
--- NOTE | 2024-01-20 11:53 | P.PNIM_ITS ---
Subjective Subjective Date of Service: 01/20/24 Interval History: Feeling tired,, complaining of coughing, shortness of breath is better, complaining of right groin pain with movement, no worsening symptoms, denies fever, no chills, tolerated breakfast with no nausea, no vomiting, no abdominal pain, no acute issues overnight. Review of Systems All other system reviewed and negative. Physical Exam 2 Vital Signs: Vital Signs: Last Vital Signs Temp 98 F 01/20/24 06:41 Pulse 81 01/20/24 06:41 Resp 17 01/20/24 06:41 BP 134/72 01/20/24 06:41 Pulse Ox 91 L 01/20/24 06:41 O2 Del Method Room Air 01/20/24 06:41 BMI result Body Mass Index 31.8 Const: Other: Gen: Awake alert x3, in no acute distress sclera anicteric Neck: supple,no jvd Lungs: Bilateral rhonchi, diminished breath sound ,no rales Heart: irregular, no murmurs Abd: soft, non-tender, non-distended, bowel sounds audible Ext: no edema Skin: warm/well-perfused, Neuro: alert and oriented x3, no focal findings Psych: appropriate affect Objective Data Active Medications Acetaminophen (Acetaminophen 325 Mg Tablet) 650 mg PO Q6H PRN PRN Reason: Pain, Mild (Pain Scale 1-3) Last Admin: 01/17/24 19:35 Dose: 650 mg Documented By: IRMA Amlodipine Besylate (Amlodipine Besylate 5 Mg Tablet) 5 mg PO DAILY [facility]; Protocol Last Admin: 01/20/24 09:19 Dose: 5 mg Documented By: JEANA Aspirin (Aspirin Enteric Coated 81 Mg Tablet.) 81 mg PO DAILY [facility] Last Admin: 01/20/24 09:19 Dose: 81 mg Documented By: JEANA Atorvastatin Calcium (Atorvastatin Calcium 10 Mg Tablet) 10 mg PO BEDTIME [facility] Last Admin: 01/19/24 20:57 Dose: 10 mg Documented By: KELLI Dextrose (Dextrose 50 % 25 Gm/50 Ml Syringe) 25 gm IVPUSH Q15M PRN; Protocol PRN Reason: per Hypoglycemia Standing Ord. Docusate Sodium (Docusate Sodium 100 Mg Capsule) 100 mg PO BID [facility] Last Admin: 01/20/24 09:20 Dose: Not Given Documented By: JEANA Non-Admin Reason: loose stools Furosemide (Furosemide 20 Mg/2 Ml Vial) 20 mg IVPUSH BID@0900,1800 [facility]; Protocol Last Admin: 01/20/24 09:19 Dose: 20 mg Documented By: JEANA Glucose (Glucose Gel 15 Gm Gel..Gram.) 15 gm PO Q15M PRN; Protocol PRN Reason: per Hypoglycemia Standing Ord. Guaifenesin/Dextromethorphan (Guaifenesin Dm 100/10/5 Ml 5 Ml Syrup) 5 ml PO Q4H PRN PRN Reason: Cough Last Admin: 01/20/24 09:40 Dose: 5 ml Documented By: JEANA Insulin Glargine (Insulin Glargine,Hum.Rec.Anlog 100 Unit/Ml 10 Ml Vial) 37 unit SUBCUT BEDTIME [facility] Last Admin: 01/19/24 20:58 Dose: 37 unit Documented By: KELLI Insulin Human Lispro (Insulin Lispro 100 Unit/Ml 3 Ml Vial) 0 unit SUBCUT QIDACHS [facility]; Protocol Last Admin: 01/20/24 11:52 Dose: Not Given Documented By: JEANA Non-Admin Reason: No Insulin Coverage Levothyroxine Sodium (Levothyroxine Sodium 25 Mcg Tablet) 25 mcg PO DAILY@0600 [facility] Last Admin: 01/20/24 05:55 Dose: 25 mcg Documented By: KHANH Magnesium Hydroxide (Milk Of Magnesia 30 Ml Oral.Susp) 15 ml PO BID PRN PRN Reason: Constipation Melatonin (Melatonin 3 Mg Tablet) 6 mg PO BEDTIME PRN PRN Reason: Insomnia Metoprolol Succinate (Metoprolol Succinate Er 100 Mg Tab.Er.24h) 200 mg PO DAILY [facility]; Protocol Last Admin: 01/20/24 09:19 Dose: 200 mg Documented By: JEANA Multivitamins/Vitamin C (Multivitamin Tablet) 1 tab PO DAILY [facility] Last Admin: 01/20/24 09:19 Dose: 1 tab Documented By: JEANA Nystatin (Nystatin Powder 15 Gm Bottle) 1 appl TOPICAL TID [facility]; Protocol Last Admin: 01/20/24 09:20 Dose: 1 appl Documented By: JEANA Ondansetron HCl (Ondansetron Hcl 4 Mg/2 Ml Vial) 4 mg IVPUSH Q8H PRN PRN Reason: Nausea and Vomiting Oxycodone HCl (Oxycodone Hcl Immed Release 5 Mg Tablet) 5 mg PO Q4H PRN PRN Reason: Pain, Severe (Pain Scale 7-10) Last Admin: 01/18/24 04:43 Dose: 5 mg Documented By: IRMA Polyethylene Glycol (Polyethylene Glycol 3350 17 Gm Powd.Pack) 17 gm PO BID [facility] Last Admin: 01/20/24 09:20 Dose: Not Given Documented By: JEANA Non-Admin Reason: loose stools Sodium Chloride (0.9 % Sodium Chloride Flush 3 Ml Syringe) 3 ml IVFLUSH QSHIFT [facility] Last Admin: 01/20/24 09:19 Dose: 3 ml Documented By: JEANA Valsartan (Valsartan 40 Mg Tablet) 20 mg PO BID [facility]; Protocol Last Admin: 01/14/24 08:27 Dose: 20 mg Documented By: CHRISTOPHER Warfarin Sodium (Warfarin Sodium 1 Mg Tablet) 1 mg PO MoWeFr@1800 [facility] Last Admin: 01/18/24 17:50 Dose: 1 mg Documented By: KELLI Warfarin Sodium (Warfarin Sodium 2 Mg Tablet) 2 mg PO SuTuThSa@1800 [facility] Last Admin: 01/19/24 17:58 Dose: 2 mg Documented By: KELLI Labs 01/14/24 05:08 01/20/24 05:34 Labs: Laboratory Results - last 24 hr 01/19/24 01/19/24 01/20/24 16:12 20:25 05:34 PT INR Anion Gap 12 Estim Creat Clear Calc 33.5 Estimated GFR 34 POC Glucose 147 H 174 H Random Glucose 70 Calcium 8.4 01/20/24 01/20/24 01/20/24 06:40 07:28 08:17 PT 33.4 H INR 2.7 H Anion Gap Estim Creat Clear Calc Estimated GFR POC Glucose 73 78 Random Glucose Calcium 01/20/24 11:05 PT INR Anion Gap Estim Creat Clear Calc Estimated GFR POC Glucose 121 H Random Glucose Calcium Assessment and Plan (1) DOROTHY (acute kidney injury): Status: Acute Plan 83-year-old female with pertinent history of congestive heart failure with preserved ejection fraction, permanent atrial fibrillation on Coumadin, CKD stage 3, hypothyroidism, insulin-dependent diabetes mellitus, essential hypertension, neurogenic bladder status post suprapubic catheter who presents to the emergency department for evaluation of a fall found to be in chf HFpEF initially with CHF on IV lasix but resolved, echo on 01/12/24 with EF of 45-50% mild systolic dysfunction, Lasix was held due to worsening renal function cxr 01/18 showed enlarged heart with vascular congestion and mild interstitial edema Placed back on IV lasix 20mg BID -3.4 L in last 24 hours, today appears euvolemic, will DC IV Lasix and placed back on home dose of Lasix Monitor electrolytes/BNP I's and O's/ Congested cough secondary to HCAP cxr showed new airspace disease in the right upper lung on iv Rocephin and azithromycin d2/5 resp path panel pending Recommend incentive spirometry out of bed to chair Right groin pain ? related to arterial stent, placed at endovascular center CT abdomen/pelvis, no obvious cause of pain hip/pelvis xray no acute fracture of malalignment vascular surgery consult> no stent seen on imaging, doubt migration. f/u o/p with Dr. Chaudhari at endovascular clinic DOROTHY on CKD 3 SCr improved continue to hold losartan, monitor renal function closely while being diuresed has suprapubic catheter - has outpatient follow up appt. Bilateral hydroureter with hydronephrosis Seen by urology both kidneys functioning fine, no evidence of obstruction, no acute urology intervention needed Insulin-dependent diabetes mellitus Low normal blood sugars will decrease dose of Lantus from 37 unit 30 unit continue insulin sliding scale and diabetic diet Essential hypertension hold losartan for DOROTYH Stable blood pressure continue norvasc, toprol xl Paroxysmal atrial fibrillation continue Coumadin follow INR daily INR 2.7 today DISPO pt evaluation - rec home with PT services when medically clear Coumadin Full code Requires ongoing hospitalization for safe disposition, close monitoring of renal function and treatment for acute CHF Quality Stroke Does the patient have a stroke diagnosis?: No VTE Prior VTE?: No VTE Risk Level:: Medical - moderate - high VTE Device Contraindication: Treatment Not Indicated VTE Drug Contraindication: N/A - Med Ordered
[2024-01-20 13:31] LABS: Adenovirus PCR Not Detected (Not Detect.); Bordetella parapertussis PCR Not Detected (Not Detect.); Bordetella pertussis PCR Not Detected (Not Detect.); Chlamydia pneumoniae PCR Not Detected (Not Detect.); Coronavirus 229E PCR Not Detected (Not Detect.); Coronavirus HKU1 PCR Not Detected (Not Detect.); Coronavirus NL63 PCR Not Detected (Not Detect.); Coronavirus OC43 PCR Not Detected (Not Detect.); Human metapneumovirus PCR Detected (Not Detect.); Influenza A PCR Not Detected (Not Detect.); Influenza B PCR Not Detected (Not Detect.); Mycoplasma pneumoniae PCR Not Detected (Not Detect.); Parainfluenza 1 PCR Not Detected (Not Detect.); Parainfluenza 2 PCR Not Detected (Not Detect.); Parainfluenza 3 PCR Not Detected (Not Detect.); Parainfluenza 4 PCR Not Detected (Not Detect.); RSV PCR Not Detected (Not Detect.); Rhino/Enterovirus PCR Not Detected (Not Detect.)
[2024-01-20 13:58] LABS: SARS-CoV-2 PCR Not Detected (Not Detect.)
[2024-01-20] MEDS: Doxycycline Monohydrate 100 MG CAPSULE PO (14:36)
--- NOTE | 2024-01-20 14:58 | MHC.IC ---
Pt has Human Metapneumovirus, which requires contact and standard isolation per CDC. Masks are also encouraged if the patient is coughing/sneezing.
[2024-01-20 15:50] VITALS: BP 114/58; PULSE 84; RESP 16; TEMP 36.2; O2SAT 93
[2024-01-20 16:36] LABS: Glucose, Whole Blood 112 mg/dL (60-115)
[2024-01-20] MEDS: Warfarin Sodium 1 MG TABLET PO (17:34)
[2024-01-20] MEDS: Atorvastatin Calcium 10 MG TABLET PO (19:54)
[2024-01-20 20:00] VITALS: BP 127/83; PULSE 88; RESP 16; TEMP 36.6; O2SAT 96
[2024-01-20 20:02] LABS: Glucose, Whole Blood 173 mg/dL (60-115)
[2024-01-20] MEDS: Insulin Glargine,Hum.rec.anlog 100 UNIT/ML 10 ML VIAL 30 UNIT SUBCUT (20:09)
[2024-01-20] MEDS: Insulin Lispro 100 UNIT/ML 3 ML VIAL SUBCUT (20:09)
[2024-01-21] MEDS: Doxycycline Monohydrate 100 MG CAPSULE PO ×2 (02:36→13:16)
[2024-01-21 03:48] VITALS: BP 144/75; PULSE 77; RESP 16; TEMP 36.2; O2SAT 94
[2024-01-21] MEDS: Levothyroxine Sodium 25 MCG TABLET PO (05:30)
[2024-01-21 06:38] LABS: INTERNATIONAL NORM RATIO 2.9 (0.9-1.1); Prothrombin Time 35.9 SEC (11.1-13.3)
[2024-01-21 06:51] LABS: B Type Natriuretic Peptide 229 pg/mL (<100)
[2024-01-21 07:04] LABS: Anion Gap 14 (12-20); Blood Urea Nitrogen 33 mg/dL (9-16); Calcium 8.2 mg/dL (8.4-10.2); Carbon Dioxide 23 mmol/L (22-29); Chloride 102 mmol/L (96-108); Estimated Glomerular Filt Rate 37; Potassium 3.3 mmol/L (3.3-5.1); Sodium 136 mmol/L (135-145)
[2024-01-21 07:23] VITALS: BP 152/74; PULSE 72; RESP 16; TEMP 36.1; O2SAT 96
[2024-01-21 07:23] LABS: Glucose Random 53 mg/dL (60-115)
[2024-01-21 07:40] LABS: Glucose, Whole Blood 60 mg/dL (60-115)
[2024-01-21 08:49] LABS: Glucose, Whole Blood 80 mg/dL (60-115)
[2024-01-21] MEDS: 0.9 % Sodium Chloride Flush 3 ML SYRINGE IVFLUSH ×3 (09:03→20:35)
[2024-01-21] MEDS: Multivitamin TABLET 1 TAB PO (09:04)
[2024-01-21] MEDS: Metoprolol Succinate ER 100 MG TAB.ER.24H 200 MG PO (09:04)
[2024-01-21] MEDS: Aspirin Enteric Coated 81 MG TABLET.DR PO (09:04)
[2024-01-21] MEDS: amLODIPine Besylate 5 MG TABLET PO (09:04)
[2024-01-21] MEDS: Nystatin Powder 15 GM BOTTLE 1 APPL TOPICAL ×3 (09:07→20:55)
--- NOTE | 2024-01-21 11:22 | P.PNIM_ITS ---
Subjective Subjective Date of Service: 01/21/24 Interval History: Feels tired, weak, decreased by mouth intake, denies shortness breath, no chest pain, no lightheadedness, no dizziness, no fevers, no chills, no nausea, no vomiting of abdominal discomfort, no diarrhea. Noted to have low blood sugar 53 this morning, respiratory viral panel positive for human metapneumovirus. No change in right groin pain. Review of Systems All other system reviewed and negative Physical Exam 2 Vital Signs: Vital Signs: Last Vital Signs Temp 96.9 F 01/21/24 07:23 Pulse 72 01/21/24 07:23 Resp 16 01/21/24 07:23 BP 152/74 H 01/21/24 07:23 Pulse Ox 96 01/21/24 07:23 O2 Del Method Room Air 01/21/24 07:23 BMI result Body Mass Index 31.8 Const: Other: Gen: Awake alert x3, in no acute distress sclera anicteric Neck: supple,no jvd Lungs: Clear to auscultation, diminished breath sound ,no rales Heart: irregular, no murmurs Abd: soft, non-tender, non-distended, bowel sounds audible Ext: no edema Skin: warm/well-perfused, Neuro: alert and oriented x3, no focal findings Psych: appropriate affect Objective Data Active Medications Acetaminophen (Acetaminophen 325 Mg Tablet) 650 mg PO Q6H PRN PRN Reason: Pain, Mild (Pain Scale 1-3) Last Admin: 01/17/24 19:35 Dose: 650 mg Documented By: IRMA Amlodipine Besylate (Amlodipine Besylate 5 Mg Tablet) 5 mg PO DAILY [facility]; Protocol Last Admin: 01/21/24 09:04 Dose: 5 mg Documented By: TREY Aspirin (Aspirin Enteric Coated 81 Mg Tablet.) 81 mg PO DAILY [facility] Last Admin: 01/21/24 09:04 Dose: 81 mg Documented By: TREY Atorvastatin Calcium (Atorvastatin Calcium 10 Mg Tablet) 10 mg PO BEDTIME [facility] Last Admin: 01/20/24 19:54 Dose: 10 mg Documented By: KELLI Dextrose (Dextrose 50 % 25 Gm/50 Ml Syringe) 25 gm IVPUSH Q15M PRN; Protocol PRN Reason: per Hypoglycemia Standing Ord. Docusate Sodium (Docusate Sodium 100 Mg Capsule) 100 mg PO BID [facility] Last Admin: 01/21/24 09:06 Dose: Not Given Documented By: TREY Non-Admin Reason: Patient Refused Doxycycline Monohydrate (Doxycycline Monohydrate 100 Mg Capsule) 100 mg PO Q12H [facility] Last Admin: 01/21/24 02:36 Dose: 100 mg Documented By: DANK Glucose (Glucose Gel 15 Gm Gel..Gram.) 15 gm PO Q15M PRN; Protocol PRN Reason: per Hypoglycemia Standing Ord. Guaifenesin/Dextromethorphan (Guaifenesin Dm 100/10/5 Ml 5 Ml Syrup) 5 ml PO Q4H PRN PRN Reason: Cough Last Admin: 01/20/24 19:54 Dose: 5 ml Documented By: KELLI Insulin Glargine (Insulin Glargine,Hum.Rec.Anlog 100 Unit/Ml 10 Ml Vial) 30 unit SUBCUT BEDTIME [facility] Last Admin: 01/20/24 20:09 Dose: 30 unit Documented By: KELLI Insulin Human Lispro (Insulin Lispro 100 Unit/Ml 3 Ml Vial) 0 unit SUBCUT QIDACHS [facility]; Protocol Last Admin: 01/21/24 07:56 Dose: Not Given Documented By: TREY Non-Admin Reason: No Insulin Coverage Levothyroxine Sodium (Levothyroxine Sodium 25 Mcg Tablet) 25 mcg PO DAILY@0600 [facility] Last Admin: 01/21/24 05:30 Dose: 25 mcg Documented By: DANK Magnesium Hydroxide (Milk Of Magnesia 30 Ml Oral.Susp) 15 ml PO BID PRN PRN Reason: Constipation Melatonin (Melatonin 3 Mg Tablet) 6 mg PO BEDTIME PRN PRN Reason: Insomnia Metoprolol Succinate (Metoprolol Succinate Er 100 Mg Tab.Er.24h) 200 mg PO DAILY [facility]; Protocol Last Admin: 01/21/24 09:04 Dose: 200 mg Documented By: TREY Multivitamins/Vitamin C (Multivitamin Tablet) 1 tab PO DAILY [facility] Last Admin: 01/21/24 09:04 Dose: 1 tab Documented By: TREY Nystatin (Nystatin Powder 15 Gm Bottle) 1 appl TOPICAL TID [facility]; Protocol Last Admin: 01/21/24 09:07 Dose: 1 appl Documented By: TREY Ondansetron HCl (Ondansetron Hcl 4 Mg/2 Ml Vial) 4 mg IVPUSH Q8H PRN PRN Reason: Nausea and Vomiting Oxycodone HCl (Oxycodone Hcl Immed Release 5 Mg Tablet) 5 mg PO Q4H PRN PRN Reason: Pain, Severe (Pain Scale 7-10) Last Admin: 01/18/24 04:43 Dose: 5 mg Documented By: IRMA Polyethylene Glycol (Polyethylene Glycol 3350 17 Gm Powd.Pack) 17 gm PO BID [facility] Last Admin: 01/21/24 09:07 Dose: Not Given Documented By: TREY Non-Admin Reason: Patient Refused Sodium Chloride (0.9 % Sodium Chloride Flush 3 Ml Syringe) 3 ml IVFLUSH QSHIFT [facility] Last Admin: 01/21/24 09:03 Dose: 3 ml Documented By: TREY Valsartan (Valsartan 40 Mg Tablet) 20 mg PO BID [facility]; Protocol Last Admin: 01/14/24 08:27 Dose: 20 mg Documented By: CHRISTOPHER Warfarin Sodium (Warfarin Sodium 1 Mg Tablet) 1 mg PO MoWeFr@1800 [facility] Last Admin: 01/20/24 17:34 Dose: 1 mg Documented By: KELLI Warfarin Sodium (Warfarin Sodium 2 Mg Tablet) 2 mg PO SuTuThSa@1800 [facility] Last Admin: 01/19/24 17:58 Dose: 2 mg Documented By: KELLI Labs 01/14/24 05:08 01/21/24 06:24 Labs: Laboratory Results - last 24 hr 01/19/24 01/20/24 01/20/24 15:15 16:33 19:53 PT INR Anion Gap Estim Creat Clear Calc Estimated GFR POC Glucose 112 173 H Random Glucose Calcium B-Natriuretic Peptide Respiratory Panel Damico See Note Adenovirus (Rapid PCR) Not Detected B.pert (TEM-PCR) Not Detected B.parapertussis DNA PCR Not Detected C. pneumoniae DNA (PCR) Not Detected Coronavirus OC43 (PCR) Not Detected Coronavirus HKU1 (PCR) Not Detected Coronavirus 229E (PCR) Not Detected Coronavirus NL63 (PCR) Not Detected Human Metapneumovir PCR Detected A Influenza A (RT-PCR) Not Detected Influenza B (RT-PCR) Not Detected M. pneumoniae (PCR) Not Detected Parainfluenza 1 (PCR) Not Detected Parainfluenza 2 (PCR) Not Detected Parainfluenza 3 (PCR) Not Detected Parainfluenza 4 (PCR) Not Detected RSV (PCR) Not Detected Entero/Rhino (PCR) Not Detected SARS-CoV-2 RNA (RT-PCR) Not Detected 01/21/24 01/21/24 01/21/24 06:24 07:28 08:45 PT 35.9 H INR 2.9 H Anion Gap 14 Estim Creat Clear Calc 36.0 Estimated GFR 37 POC Glucose 60 80 Random Glucose 53 L* Calcium 8.2 L B-Natriuretic Peptide 229 H Respiratory Panel Damico Adenovirus (Rapid PCR) B.pert (TEM-PCR) B.parapertussis DNA PCR C. pneumoniae DNA (PCR) Coronavirus OC43 (PCR) Coronavirus HKU1 (PCR) Coronavirus 229E (PCR) Coronavirus NL63 (PCR) Human Metapneumovir PCR Influenza A (RT-PCR) Influenza B (RT-PCR) M. pneumoniae (PCR) Parainfluenza 1 (PCR) Parainfluenza 2 (PCR) Parainfluenza 3 (PCR) Parainfluenza 4 (PCR) RSV (PCR) Entero/Rhino (PCR) SARS-CoV-2 RNA (RT-PCR) Assessment and Plan (1) DOROTHY (acute kidney injury): Status: Acute Plan 83-year-old female with pertinent history of congestive heart failure with preserved ejection fraction, permanent atrial fibrillation on Coumadin, CKD stage 3, hypothyroidism, insulin-dependent diabetes mellitus, essential hypertension, neurogenic bladder status post suprapubic catheter who presents to the emergency department for evaluation of a fall found to be in chf HFpEF initially with CHF on IV lasix but resolved, echo on 01/12/24 with EF of 45-50% mild systolic dysfunction, Lasix was held due to worsening renal function cxr 01/18 showed enlarged heart with vascular congestion and mild interstitial edema Placed back on IV lasix 20mg BID on 01/18 -3.4 L Patient appears euvolemic today Will resume home dose of Lasix starting tomorrow Monitor electrolytes/BNP I's and O's/ Congested cough / HCAP cxr showed new airspace disease in the right upper lung resp path panel positive for human meta pneumo virus Continue supportive care with cough medication, incentive spirometry ,out of bed to chair Continue doxycycline day 2/5 Right groin pain ? related to arterial stent, placed at endovascular center CT abdomen/pelvis, no obvious cause of pain hip/pelvis xray no acute fracture of malalignment vascular surgery consult> no stent seen on imaging, doubt migration. f/u o/p with Dr. Chaudhari at endovascular clinic DOROTHY on CKD 3 SCr normalized has suprapubic catheter - outpatient follow up appt. Will resume losartan Bilateral hydroureter with hydronephrosis Seen by urology both kidneys functioning fine, no evidence of obstruction, no acute urology intervention needed Insulin-dependent diabetes mellitus Noted to have blood sugar 53 this morning will further decrease dose of Lantus to 20 units, home dose 37 units,continue insulin sliding scale and diabetic diet Essential hypertension BP trending up will resume losartan continue norvasc, toprol xl Paroxysmal atrial fibrillation continue Coumadin follow INR daily INR 2.9 today, INR trending up likely due to antibiotics DISPO pt evaluation - rec home with PT services when medically clear Coumadin Full code Requires ongoing hospitalization for safe disposition, close monitoring of renal function, electrolytes and blood sugar monitoring with decreased by mouth intake and viral infection Quality Stroke Does the patient have a stroke diagnosis?: No VTE Prior VTE?: No VTE Risk Level:: Medical - moderate - high VTE Device Contraindication: Treatment Not Indicated VTE Drug Contraindication: N/A - Med Ordered
[2024-01-21 11:41] LABS: Glucose, Whole Blood 73 mg/dL (60-115)
[2024-01-21] MEDS: guaiFENesin DM 100/10/5 ML 5 ML SYRUP 10 ML PO ×2 (14:34→20:30)
[2024-01-21 15:11] VITALS: BP 135/63; PULSE 75; RESP 18; TEMP 36.1; O2SAT 97
[2024-01-21 16:10] LABS: Glucose, Whole Blood 154 mg/dL (60-115)
[2024-01-21] MEDS: Warfarin Sodium 2 MG TABLET PO (17:08)
[2024-01-21] MEDS: Insulin Lispro 100 UNIT/ML 3 ML VIAL SUBCUT (17:41)
[2024-01-21 20:00] VITALS: BP 136/64; PULSE 87; RESP 16; TEMP 36; O2SAT 94
[2024-01-21] MEDS: Atorvastatin Calcium 10 MG TABLET PO (20:30)
[2024-01-21] MEDS: polyethylene glycoL 3350 17 GM POWD.PACK PO (20:30)
[2024-01-21] MEDS: Docusate Sodium 100 MG CAPSULE PO (20:30)
[2024-01-21 20:47] LABS: Glucose, Whole Blood 108 mg/dL (60-115)
--- NOTE | 2024-01-22 00:39 | PC.NURSE ---
tiffanie was held at HS per dr Villafana d/t lower blood sugars during the day and only 108 at HS.
[2024-01-22 03:25] VITALS: BP 145/78; PULSE 77; RESP 16; TEMP 36.4; O2SAT 97
[2024-01-22] MEDS: Doxycycline Monohydrate 100 MG CAPSULE PO ×2 (03:25→13:27)
[2024-01-22] MEDS: Levothyroxine Sodium 25 MCG TABLET PO (06:12)
[2024-01-22] MEDS: Milk of Magnesia 30 ML ORAL.SUSP 15 ML PO (06:18)
[2024-01-22 06:39] LABS: INTERNATIONAL NORM RATIO 3.3 (0.9-1.1); Prothrombin Time 40.7 SEC (11.1-13.3)
[2024-01-22 07:23] VITALS: BP 124/62; PULSE 82; RESP 18; TEMP 36.7; O2SAT 96
[2024-01-22 07:30] LABS: Glucose, Whole Blood 103 mg/dL (60-115)
[2024-01-22] MEDS: amLODIPine Besylate 5 MG TABLET PO (08:46)
[2024-01-22] MEDS: polyethylene glycoL 3350 17 GM POWD.PACK PO (08:46)
[2024-01-22] MEDS: Metoprolol Succinate ER 100 MG TAB.ER.24H 200 MG PO (08:47)
[2024-01-22] MEDS: Multivitamin TABLET 1 TAB PO (08:47)
[2024-01-22] MEDS: Aspirin Enteric Coated 81 MG TABLET.DR PO (08:47)
[2024-01-22] MEDS: guaiFENesin DM 100/10/5 ML 5 ML SYRUP 10 ML PO ×2 (08:47→14:53)
[2024-01-22] MEDS: Docusate Sodium 100 MG CAPSULE PO (08:47)
[2024-01-22] MEDS: Nystatin Powder 15 GM BOTTLE 1 APPL TOPICAL ×3 (08:49→21:48)
[2024-01-22] MEDS: 0.9 % Sodium Chloride Flush 3 ML SYRINGE IVFLUSH ×3 (08:50→23:37)
[2024-01-22 11:20] LABS: Glucose, Whole Blood 136 mg/dL (60-115)
[2024-01-22 13:53] VITALS: BMI 31.8
--- NOTE | 2024-01-22 15:29 | HO.PM.IMPN ---
Subjective Subjective Date of Service: 01/22/24 Interval History: Complaining of persistent weakness, cough and diarrhea had 4-5 loose watery stools, complaining of perirectal soreness, no fevers, no chills has been ambulating from chair to bathroom only, no other acute issues overnight. Review of Systems All other system reviewed and negative Physical Exam Vital Signs: Vital Signs: Last Vital Signs Temp 98.0 F 01/22/24 07:23 Pulse 82 01/22/24 07:23 Resp 18 01/22/24 07:23 BP 124/62 01/22/24 07:23 Pulse Ox 96 01/22/24 07:23 O2 Del Method Room Air 01/22/24 07:23 BMI result Body Mass Index 31.8 Const: Other: Gen: Awake alert x3, in no acute distress sclera anicteric Neck: supple,no jvd Lungs: Clear to auscultation, diminished breath sound ,no rales Heart: irregular, no murmurs Abd: soft, non-tender, non-distended, bowel sounds audible Ext: no edema Skin: warm/well-perfused, Neuro: alert and oriented x3, no focal findings Psych: appropriate affect Objective Data Active Medications Acetaminophen (Acetaminophen 325 Mg Tablet) 650 mg PO Q6H PRN PRN Reason: Pain, Mild (Pain Scale 1-3) Last Admin: 01/17/24 19:35 Dose: 650 mg Documented By: IRMA Amlodipine Besylate (Amlodipine Besylate 5 Mg Tablet) 5 mg PO DAILY [facility]; Protocol Last Admin: 01/22/24 08:46 Dose: 5 mg Documented By: TREY Aspirin (Aspirin Enteric Coated 81 Mg Tablet.) 81 mg PO DAILY [facility] Last Admin: 01/22/24 08:47 Dose: 81 mg Documented By: TREY Atorvastatin Calcium (Atorvastatin Calcium 10 Mg Tablet) 10 mg PO BEDTIME [facility] Last Admin: 01/21/24 20:30 Dose: 10 mg Documented By: GENTRY Dextrose (Dextrose 50 % 25 Gm/50 Ml Syringe) 25 gm IVPUSH Q15M PRN; Protocol PRN Reason: per Hypoglycemia Standing Ord. Glucose (Glucose Gel 15 Gm Gel..Gram.) 15 gm PO Q15M PRN; Protocol PRN Reason: per Hypoglycemia Standing Ord. Guaifenesin/Dextromethorphan (Guaifenesin Dm 100/10/5 Ml 5 Ml Syrup) 10 ml PO TID [facility] Last Admin: 01/22/24 14:53 Dose: 10 ml Documented By: TREY Insulin Glargine (Insulin Glargine,Hum.Rec.Anlog 100 Unit/Ml 10 Ml Vial) 25 unit SUBCUT BEDTIME [facility] Insulin Human Lispro (Insulin Lispro 100 Unit/Ml 3 Ml Vial) 0 unit SUBCUT QIDACHS [facility]; Protocol Last Admin: 01/22/24 11:28 Dose: Not Given Documented By: TREY Non-Admin Reason: No Insulin Coverage Levothyroxine Sodium (Levothyroxine Sodium 25 Mcg Tablet) 25 mcg PO DAILY@0600 [facility] Last Admin: 01/22/24 06:12 Dose: 25 mcg Documented By: GENTRY Magnesium Hydroxide (Milk Of Magnesia 30 Ml Oral.Susp) 15 ml PO BID PRN PRN Reason: Constipation Last Admin: 01/22/24 06:18 Dose: 15 ml Documented By: GENTRY Melatonin (Melatonin 3 Mg Tablet) 6 mg PO BEDTIME PRN PRN Reason: Insomnia Metoprolol Succinate (Metoprolol Succinate Er 100 Mg Tab.Er.24h) 200 mg PO DAILY [facility]; Protocol Last Admin: 01/22/24 08:47 Dose: 200 mg Documented By: TREY Multivitamins/Vitamin C (Multivitamin Tablet) 1 tab PO DAILY [facility] Last Admin: 01/22/24 08:47 Dose: 1 tab Documented By: TREY Nystatin (Nystatin Powder 15 Gm Bottle) 1 appl TOPICAL TID [facility]; Protocol Last Admin: 01/22/24 14:54 Dose: 1 appl Documented By: TREY Ondansetron HCl (Ondansetron Hcl 4 Mg/2 Ml Vial) 4 mg IVPUSH Q8H PRN PRN Reason: Nausea and Vomiting Sodium Chloride (0.9 % Sodium Chloride Flush 3 Ml Syringe) 3 ml IVFLUSH QSHIFT [facility] Last Admin: 01/22/24 15:26 Dose: 3 ml Documented By: TREY Valsartan (Valsartan 40 Mg Tablet) 20 mg PO BID [facility]; Protocol Last Admin: 01/14/24 08:27 Dose: 20 mg Documented By: CHRISTOPHER Warfarin Sodium (Warfarin Sodium 1 Mg Tablet) 1 mg PO MoWeFr@1800 [facility] Last Admin: 01/20/24 17:34 Dose: 1 mg Documented By: KELLI Warfarin Sodium (Warfarin Sodium 2 Mg Tablet) 2 mg PO SuTuThSa@1800 SUN Last Admin: 01/21/24 17:08 Dose: 2 mg Documented By: TREY Labs 01/14/24 05:08 01/21/24 06:24 Labs: Laboratory Results - last 24 hr 01/21/24 01/21/24 01/22/24 16:03 20:41 05:38 Hold Purple Top SEE NOTE PT 40.7 H INR 3.3 H POC Glucose 154 H 108 01/22/24 01/22/24 07:25 11:16 Hold Purple Top PT INR POC Glucose 103 136 H Assessment and Plan (1) DOROTHY (acute kidney injury): Status: Acute Plan 83-year-old female with pertinent history of congestive heart failure with preserved ejection fraction, permanent atrial fibrillation on Coumadin, CKD stage 3, hypothyroidism, insulin-dependent diabetes mellitus, essential hypertension, neurogenic bladder status post suprapubic catheter who presents to the emergency department for evaluation of a fall found to be in chf HFpEF initially with CHF on IV lasix but resolved, echo on 01/12/24 with EF of 45-50% mild systolic dysfunction, Lasix was held due to worsening renal function cxr 01/18 showed enlarged heart with vascular congestion and mild interstitial edema Placed back on IV lasix 20mg BID on 01/18 -3.4 L Patient appears euvolemic and having diarrhea will hold Lasix Monitor electrolytes/BNP I's and O's/ Congested cough / HCAP cxr showed new airspace disease in the right upper lung resp path panel positive for human meta pneumo virus Continue supportive care incentive spirometry ,out of bed to chair, and antibiotic Change cough syrup to Tessalon and add cough syrup with codeine. Acute diarrhea Question related to antibiotics and stool softeners DC stool softeners check stool for C diff Barrier cream. Right groin pain ? related to arterial stent, placed at endovascular center CT abdomen/pelvis, no obvious cause of pain hip/pelvis xray no acute fracture of malalignment vascular surgery consult> no stent seen on imaging, doubt migration. f/u o/p with Dr. Chaudhari at endovascular clinic DOROTHY on CKD 3 SCr normalized has suprapubic catheter - outpatient follow up appt. Bilateral hydroureter with hydronephrosis Seen by urology both kidneys functioning fine, no evidence of obstruction, no acute urology intervention needed Insulin-dependent diabetes mellitus Noted to have blood sugar 53 this morning will further decrease dose of Lantus to 25 units, home dose 37 units,continue insulin sliding scale and diabetic diet Essential hypertension BP stable continue norvasc, toprol xl and losartan Paroxysmal atrial fibrillation continue Coumadin follow INR daily, INR 3.3 today, hold Coumadin, INR trending up likely due to antibiotics DISPO pt evaluation - rec home with PT services when medically clear Coumadin Full code Requires ongoing hospitalization for safe disposition, acute diarrhea, requiring close monitoring of renal function, electrolytes and blood sugar monitoring with decreased by mouth intake and viral infection Quality Stroke Does the patient have a stroke diagnosis?: No VTE Prior VTE?: No VTE Risk Level:: Medical - moderate - high VTE Device Contraindication: Treatment Not Indicated VTE Drug Contraindication: N/A - Med Ordered
[2024-01-22 15:34] VITALS: BP 128/69; PULSE 79; RESP 18; TEMP 36.6; O2SAT 97
--- NOTE | 2024-01-22 15:46 | MHC.CM.PN ---
EMR REVIEWED AND PER MD, PT WILL NOT BE MEDICALLY CLEARED TO DC TODAY(CONTINUED MALAISE AND LOOSE STOOL) CM WILL CONTINUE TO FOLLOW FOR ANY CHANGE IN DC PLAN/NEEDS.
[2024-01-22 16:21] LABS: Glucose, Whole Blood 135 mg/dL (60-115)
[2024-01-22] MEDS: Benzonatate 100 MG CAPSULE PO ×2 (16:49→21:42)
[2024-01-22 19:24] VITALS: BP 112/61; PULSE 83; RESP 16; TEMP 36.6; O2SAT 98
[2024-01-22 20:13] LABS: Glucose, Whole Blood 181 mg/dL (60-115)
[2024-01-22] MEDS: Valsartan 40 MG TABLET 20 MG PO (21:42)
[2024-01-22] MEDS: Atorvastatin Calcium 10 MG TABLET PO (21:42)
[2024-01-22] MEDS: Insulin Lispro 100 UNIT/ML 3 ML VIAL SUBCUT (21:43)
[2024-01-22] MEDS: Insulin Glargine,Hum.rec.anlog 100 UNIT/ML 10 ML VIAL 25 UNIT SUBCUT (21:44)
[2024-01-23 03:15] VITALS: BP 121/59; PULSE 81; RESP 16; TEMP 37.1; O2SAT 98
[2024-01-23] MEDS: Levothyroxine Sodium 25 MCG TABLET PO (05:49)
[2024-01-23 06:14] LABS: INTERNATIONAL NORM RATIO 3.6 (0.9-1.1); Prothrombin Time 43.5 SEC (11.1-13.3)
[2024-01-23 07:41] LABS: Glucose, Whole Blood 105 mg/dL (60-115)
[2024-01-23 07:51] VITALS: BP 147/80; PULSE 83; RESP 16; TEMP 36; O2SAT 95
[2024-01-23 09:15] LABS: Hematocrit 36.9 % (37.0-47.0); Hemoglobin 11.8 g/dl (12.0-16.0); Mean Corpuscular Hemoglobin 27.2 pg (27.0-33.0); Mean Platelet Volume 8.9 fL (9.4-12.3); Platelet Count 330 X10*3/uL (160-400); Red Blood Count 4.34 X10*6/uL (4.20-5.50); Red Cell Distribution Width 17.4 % (11.0-16.0); White Blood Count 6.4 X10*3/uL (4.8-10.8)
[2024-01-23 09:23] LABS: Anion Gap 14 (12-20); Blood Urea Nitrogen 40 mg/dL (9-16); Calcium 8.5 mg/dL (8.4-10.2); Carbon Dioxide 24 mmol/L (22-29); Chloride 106 mmol/L (96-108); Creatinine Clr Calc Pharmacy 39.7; Estimated Glomerular Filt Rate 41; Glucose Random 95 mg/dL (60-115); Potassium 4.2 mmol/L (3.3-5.1); Sodium 140 mmol/L (135-145)
[2024-01-23] MEDS: Multivitamin TABLET 1 TAB PO (09:33)
[2024-01-23] MEDS: Metoprolol Succinate ER 100 MG TAB.ER.24H 200 MG PO (09:33)
[2024-01-23] MEDS: amLODIPine Besylate 5 MG TABLET PO (09:33)
[2024-01-23] MEDS: Valsartan 40 MG TABLET 20 MG PO (09:33)
[2024-01-23] MEDS: Aspirin Enteric Coated 81 MG TABLET.DR PO (09:34)
[2024-01-23] MEDS: Benzonatate 100 MG CAPSULE PO (09:34)
[2024-01-23] MEDS: 0.9 % Sodium Chloride Flush 3 ML SYRINGE IVFLUSH (09:34)
[2024-01-23] MEDS: Nystatin Powder 15 GM BOTTLE 1 APPL TOPICAL (09:38)
[2024-01-23 11:10] LABS: Glucose, Whole Blood 191 mg/dL (60-115)
[2024-01-23] MEDS: Insulin Lispro 100 UNIT/ML 3 ML VIAL SUBCUT (11:52)
[2024-01-23] MEDS: Acetaminophen 325 MG TABLET 650 MG PO (11:58)
--- NOTE | 2024-01-23 12:59 | MHC.CM.PN ---
IMM 01/23/24 Patient is discharged to home today. [facility] will resume services. Discharge info has been hand faxed to the agency at their request. Patient has arranged for her dtr to provide transportation home.
--- NOTE | 2024-01-23 13:03 | PM.DS ---
DS: Providers Provider Date of Service: 01/23/24 Date of admission: 01/12/24 02:46 Primary care physician: Nano Delaney MD Consults: 01/12/24 06:23 Consult to Wound Care Routine Reason for consultation: rash RUE,redness to coccyx Has provider been notified: Yes 01/12/24 06:30 Consult to Urology Routine Consulting Provider: Keith Sharma Reason for consultation: Bilateral hydroureter with hydronephrosis 01/13/24 13:53 Consult to Cardiology Routine Consulting Provider: [facility] Reason for consultation: CHF Has provider been notified: Yes 01/18/24 06:00 Consult to Vascular Surgery Routine Consulting Provider: [facility] Reason for consultation: right groin pain, ? stent migration 01/19/24 00:40 Consult to Wound Care Routine Reason for consultation: skin fungus bilateral groin,perineal area,MASD bilateral buttocks, Has provider been notified: No 01/19/24 14:06 Consult to Cardiology Routine Consulting Provider: [facility] Reason for consultation: CHF DS: Diagnosis Discharge Diagnosis (1) DOROTHY (acute kidney injury): Status: Acute DS: Summary Hospital Course Hospital Course: History and physical as per admitting provider. This is a 83-year-old female with pertinent history of congestive heart failure with preserved ejection fraction, permanent atrial fibrillation on Coumadin, CKD stage 3, hypothyroidism, insulin-dependent diabetes mellitus, essential hypertension, neurogenic bladder status post suprapubic catheter who presents to the emergency department for evaluation of a fall. Patient stated that she lost balance and fell when she was in her living room. Did not lose consciousness. No chest pain or palpitations. No jerking movement of extremities. Patient also states that she has been having episodes of choking and cough which is worse when lying down. Does not use oxygen at home. Patient is compliant with home Lasix. The cough is nonproductive. No fever, chills, palpitations, abdominal pain, changes in urinary or bowel habits. She endorses groin pain which is worse with movement.In the emergency department, imaging with vascular congestion and BNP found to be elevated. Also found to have elevated creatinine. 83-year-old woman admitted after a fall at home and found to be in CHF. She was treated with IV Lasix but due to DOROTHY Lasix was held, renal function normalized patient placed on low-dose Lasix 20 mg daily, Echocardiogram showing normal EF. Seen evaluated by Cardiology no further workup required. She was noted to have bilateral hydroureter with hydronephrosis and seen by Urology with no recommendation for further workup but outpatient follow-up as scheduled. Suprapubic catheter intact. DOROTHY resolved with IV fluids. She also had some right groin pain which she reports she had a stent placed on Karis time in the endovascular center by Dr. Chaudhari. She was seen and evaluated by vascular surgery at [facility] who reported no stent identified in the common femoral region on CT scan from 01/11/2024, recommendations to follow-up with Dr. Chaudhari in his office. Plan is to discharge patient home with physical therapy. Acute human metapneumovirus infection, chest x-ray showed new airspace disease right upper lung, initially treated with IV antibiotics for healthcare associated pneumonia but likely viral infection, antibiotic discontinued Patient treated with cough medication, analgesics, supportive care, recommend to rest and continue cough medications. Acute diarrhea likely related to stool softeners and antibiotics, resolved. Paroxysmal atrial fibrillation. Noted to have elevated INR 3.6 therefore Coumadin is held recommend to recheck Coumadin on 01/24 and resume Coumadin if INR less than 3, patient follows [facility] and INR is drawn by [facility]. Hypertension. Continue losartan, Norvasc and Toprol Diabetes mellitus type 2. Noted to have low blood sugars due to poor by mouth intake therefore dose of Lantus reduced to 25 units at bedtime baseline dose 37 units recommend to follow blood sugars and increase dose of Lantus if noted hyperglycemia. Time Attestation Discharge Coordination Time (in mins): 40 Quality: Safe Use of Opioids Does Pt have an Active Cancer Diagnosis on the Problem List?: No Quality: Stroke Does the patient have a stroke diagnosis?: No Physical Exam Vital Signs: Vital Signs: Last Vital Signs Temp 96.8 F 01/23/24 07:51 Pulse 83 01/23/24 07:51 Resp 16 01/23/24 07:51 BP 147/80 H 01/23/24 07:51 Pulse Ox 95 01/23/24 07:51 O2 Del Method Room Air 01/23/24 07:51 BMI result Body Mass Index 31.8 Const: Other: Gen: Awake alert x3, in no acute distress sclera anicteric Neck: supple,no jvd Lungs: Clear to auscultation, coarse breath sound ,no rales Heart: irregular, no murmurs Abd: soft, non-tender, non-distended, bowel sounds audible Ext: no edema Skin: warm/well-perfused, Neuro: alert and oriented x3, no focal findings Psych: appropriate affect DS: Data Data Completed and Pending Completed studies during hospitalization [Text1]: Procedures Extirpation of Matter from Bladder, Via Natural or Artificial Opening Endoscopic (06/27/22) Fluoroscopy of Kidneys, Ureters and Bladder (06/27/22) Replacement of Right Hip Joint with Synthetic Substitute, Uncemented, Open Approach (07/07/23) Labs on day of discharge: Laboratory Results - last 24 hr 01/22/24 01/22/24 01/23/24 16:17 19:26 05:25 WBC 6.4 RBC 4.34 Hgb 11.8 L Hct 36.9 L MCV 85.0 MCH 27.2 MCHC 32.0 RDW 17.4 H Plt Count 330 MPV 8.9 L Absolute Nucleated RBC 0.000 Nucleated RBC % (auto) 0.0 Hold Purple Top SEE NOTE PT 43.5 H INR 3.6 H Sodium 140 Potassium 4.2 D Chloride 106 Carbon Dioxide 24 Anion Gap 14 BUN 40 H Creatinine 1.25 Estim Creat Clear Calc 39.7 Estimated GFR 41 POC Glucose 135 H 181 H Random Glucose 95 Calcium 8.5 01/23/24 01/23/24 07:13 11:02 WBC RBC Hgb Hct MCV MCH MCHC RDW Plt Count MPV Absolute Nucleated RBC Nucleated RBC % (auto) Hold Purple Top PT INR Sodium Potassium Chloride Carbon Dioxide Anion Gap BUN Creatinine Estim Creat Clear Calc Estimated GFR POC Glucose 105 191 H Random Glucose Calcium Discharge Plan Discharge Anticipated Discharge Date/Time: 01/19/24 11:08 Patient Disposition: Home Health Service Discharge Diagnosis: DOROTHY Groin pain Bilateral hydronephrosis Referrals: [facility] [Outside] - 3-5 Days ([facility]- A NURSE WILL CALL YOU TO ARRANGE VISIT POST HOSPITALIZATION) Nano Delaney MD [Primary Care Provider] - 1 Week Juan José Chaudhari MD [Physician] - 1 Week Discharge Medications: New nystatin 100,000 unit/gram Powder 1 appl topical TID Qty: 30 0RF Protocol: Apply to: Apply to: groin benzonatate 100 mg Capsule 100 mg PO TID Qty: 20 0RF Continued atorvastatin 10 mg tablet 10 mg PO BEDTIME Qty: 90 3RF melatonin 5 mg tablet 10 mg PO BEDTIME PRN (Reason: Sleep) metoprolol succinate 200 mg tablet extended release 24 hr 200 mg PO DAILY Qty: 90 3RF valsartan 40 mg tablet 20 mg PO BID 90 Days Qty: 90 3RF Protocol: Hold for SBP< HOLD for SBP < : 90 Rx Instructions: Take half tab (20mg) in the AM and Take half tab (20mg) in the PM. PreserVision AREDS 2,148 mcg-113 mg-45 mg-17.4mg Tablet 1 tab PO BIDWM Rx Instructions: administer with AM and PM meals warfarin 1 mg Tablet 1 mg PO MOWEFR Jardiance 10 mg Tablet 10 mg PO DAILY Qty: 30 0RF nystatin 100,000 unit/gram Powder 1 appl topical BID Qty: 30 0RF Protocol: Apply to: Apply to: groin levothyroxine 25 mcg tablet 25 mcg PO DAILY aspirin 81 mg tablet,delayed release (DR/EC) 81 mg PO DAILY (DME) pen needle, diabetic [BD Cathy 2nd Gen Pen Needle] 32 gauge x 5/32 needle See Rx Instructions subcut DAILY Qty: 50 Rx Instructions: As directed (DME) lancets [FreeStyle Lancets] 28 gauge misc See Rx Instructions .ROUTE BID Qty: 100 Rx Instructions: As directed multivitamin [One Daily Multivitamin] Tablet 1 tab PO DAILY amlodipine 5 mg tablet 5 mg PO DAILY Changed insulin glargine [Lantus U-100 Insulin] 100 unit/mL solution 25 unit subcut BEDTIME Qty: 10 0RF furosemide [Lasix] 40 mg tablet 20 mg PO DAILY Qty: 30 0RF Discontinued warfarin 2 mg tablet 2 mg PO [facility] Protocol: Dose Management Condition: Thursday (Week One) Dose/Route: 2 mg Instruction: 1 x 2 mg tablet Condition: Thursday Dose/Route: 1 mg Instruction: 0.5 x 2 mg tablets Condition: Thursday Dose/Route: 2 mg Instruction: 1 x 2 mg tablet Condition: Thursday Dose/Route: 1 mg Instruction: 0.5 x 2 mg tablets Condition: Dose/Route: 2 mg Instruction: 1 x 2 mg tablet Condition: Thursday Dose/Route: 0 mg Instruction: 0 tablets Condition: Thursday Dose/Route: 1 mg Instruction: 0.5 x 2 mg tablets Condition: Thursday (Week Two) Dose/Route: 2 mg Instruction: 1 x 2 mg tablet Condition: Thursday Dose/Route: 1 mg Instruction: 0.5 x 2 mg tablets Condition: Thursday Dose/Route: 2 mg Instruction: 1 x 2 mg tablet Condition: Thursday Dose/Route: 1 mg Instruction: 0.5 x 2 mg tablets Condition: Dose/Route: 2 mg Instruction: 1 x 2 mg tablet Condition: Thursday Dose/Route: 1 mg Instruction: 0.5 x 2 mg tablets Condition: Thursday Dose/Route: 2 mg Instruction: 1 x 2 mg tablet Protocol Text: Adjustment Start Date: Thursday01/08/24 INR Value: 3.7 INR Date: 01/08/24 Recheck Date: 01/15/24 warfarin 2 mg Tablet 2 mg PO [facility] Discharge Orders: Discharge Order (Routine); Ordered 01/23/24 Ordered By: Roxana Aaron Diet: Diabetic diet Activity on Discharge: As tolerated Stand Alone Forms: Patient Portal Discharge page Other Ambulatory Orders: Basic Metabolic Panel (Routine) Timeframe: 3 Days Facility: [facility] - Location: Laboratory Ordered By: Patricia Saleh Care Plan Goals: Follow-up with Dr. Raphael in endovascular center Health Concerns: DOROTHY Groin pain Bilateral hydronephrosis human meta pneumo virus infection Diarrhea resolved Low blood sugars dose of Lantus reduced to 25 units, home dose 37 units follow blood sugars if noted to be elevated resume home dose Hold Coumadin for now check PT INR on January 24 if INR less than 3 resume Coumadin Dose of Lasix reduced to 20 mg daily (take half tab of 40 mg) Plan of Treatment: Follow-up with primary care provider as needed Take all medications as prescribed Assessment: See discharge summary
== END 2024-01-23 14:26 | disposition home health service (06) | DRG 291 ==
LOC: HO.ED 01-12 02:07 → HO.EDOVER 01-12 02:49 → HO.S3 01-12 05:19
PROVIDERS: Hospitalist; Nurse Practitioner Acute Care; Physician Assistant Medical; Admitting Provider Student in an Organized Health Care Education/Training Program; Emergency Provider Internal Medicine; PCP Internal Medicine; Visit Provider Hospitalist
DX: I13.0 Hypertensive heart and chronic kidney disease with heart failure and stage 1 through stage 4 chronic kidney disease, or unspecified chronic kidney disease (principal); I50.33 Acute on chronic diastolic (congestive) heart failure; J12.3 Human metapneumovirus pneumonia; N13.6 Pyonephrosis; I48.21 Permanent atrial fibrillation; T82.848A Pain due to vascular prosthetic devices, implants and grafts, initial encounter; Y71.8 Miscellaneous cardiovascular devices associated with adverse incidents, not elsewhere classified; E03.9 Hypothyroidism, unspecified; R79.1 Abnormal coagulation profile; E11.22 Type 2 diabetes mellitus with diabetic chronic kidney disease; I25.10 Atherosclerotic heart disease of native coronary artery without angina pectoris; Z20.822 Contact with and (suspected) exposure to COVID-19; Z79.01 Long term (current) use of 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; Z79.82 Long term (current) use of aspirin; Z79.890 Hormone replacement therapy; Z79.899 Other long term (current) drug therapy
CPT/HCPCS: 36415; 70450; 71045; 71250; 72125; 73502; 74176; 78708; 80048; 80053; 81001; 82947; 83880; 85025; 85027; 85610; 85730; 87086; 87633; 93306; 97116; 97162; 97530; 99285; A9539; J0696; J1940; J7120; Q9957

== ENCOUNTER 2024-01-12 02:46 | Outpatient (BNV) | payer MEDICARE, SELFPAY | END 2024-01-12 07:00 | PROVIDERS: Admitting Provider Student in an Organized Health Care Education/Training Program; Emergency Provider Internal Medicine; PCP Internal Medicine; Visit Provider Internal Medicine Cardiovascular Disease | DX: I35.0 Nonrheumatic aortic (valve) stenosis (principal) | CPT/HCPCS: 93306 ==

== ENCOUNTER → 2024-01-12 02:46 | Outpatient (BNV) | payer MEDICARE, SELFPAY | PROVIDERS: Admitting Provider Student in an Organized Health Care Education/Training Program; Emergency Provider Internal Medicine; PCP Internal Medicine; Visit Provider Urology | DX: N13.30 Unspecified hydronephrosis (principal) | CPT/HCPCS: 99232 ==

== ENCOUNTER → 2024-01-12 02:46 | Outpatient (BNV) | payer MEDICARE, SELFPAY | PROVIDERS: Admitting Provider Student in an Organized Health Care Education/Training Program; Emergency Provider Internal Medicine; PCP Internal Medicine; Visit Provider Internal Medicine Cardiovascular Disease | DX: I50.32 Chronic diastolic (congestive) heart failure (principal); I48.21 Permanent atrial fibrillation | CPT/HCPCS: 99222 ==

== ENCOUNTER → 2024-01-12 02:46 | Outpatient (BNV) | payer MEDICARE, SELFPAY | PROVIDERS: Admitting Provider Student in an Organized Health Care Education/Training Program; Emergency Provider Internal Medicine; PCP Internal Medicine; Visit Provider Student in an Organized Health Care Education/Training Program | DX: N17.9 Acute kidney failure, unspecified (principal) | CPT/HCPCS: 99223; 99232; 99233; 99239; 99499; G0180 ==

== ENCOUNTER → 2024-01-25 14:26 | Outpatient (BNVA) | payer MEDICARE, SELFPAY | PROVIDERS: PCP Internal Medicine; Visit Provider Internal Medicine ==

== ENCOUNTER → 2024-02-01 15:38 | Outpatient (BNVA) | payer MEDICARE, SELFPAY | PROVIDERS: PCP Internal Medicine; Visit Provider Internal Medicine ==

== ENCOUNTER → 2024-02-08 13:55 | Outpatient (BNVA) | payer MEDICARE, SELFPAY | PROVIDERS: PCP Internal Medicine; Visit Provider Internal Medicine ==

== ENCOUNTER → 2024-02-16 11:17 | Outpatient (BNVA) | payer MEDICARE, SELFPAY | PROVIDERS: PCP Internal Medicine; Visit Provider Urology | DX: N31.9 Neuromuscular dysfunction of bladder, unspecified (principal) | CPT/HCPCS: 51705 ==

== ENCOUNTER → 2024-02-23 15:15 | Outpatient (BNVA) | payer MEDICARE, SELFPAY | PROVIDERS: PCP Internal Medicine; Visit Provider Internal Medicine ==

== ENCOUNTER → 2024-03-01 11:57 | Outpatient (BNVA) | payer MEDICARE, SELFPAY | PROVIDERS: PCP Internal Medicine; Visit Provider Internal Medicine ==

== ENCOUNTER → 2024-03-04 16:24 | Outpatient (BNVA) | payer MEDICARE, SELFPAY | PROVIDERS: PCP Internal Medicine; Visit Provider Internal Medicine ==

== ENCOUNTER 2024-03-09 13:49 | Outpatient (AMB) | payer MEDICARE, SELFPAY ==
--- NOTE | 2024-03-09 14:04 | MHC.OFFVISCO ---
Intake Intake Visit Reasons: Anticoagulation Allergies No Known Allergies [No Known Allergies*] Allergy (Verified 03/09/24 13:50) Medication List - Last Reconciled 03/09/24 by Zoraida Schultz RN amlodipine 5 mg PO DAILY aspirin 81 mg PO DAILY atorvastatin 10 mg PO BEDTIME benzonatate 100 mg PO TID empagliflozin (Jardiance) 10 mg PO DAILY furosemide (Lasix) 20 mg (1/2 x 40 mg) PO DAILY insulin glargine (Lantus U-100 Insulin) 25 units (0.25 mL) subcut BEDTIME lancets (FreeStyle Lancets) As directed levothyroxine 25 mcg PO DAILY melatonin 10 mg PO BEDTIME PRN metoprolol succinate ER 200 mg PO DAILY mirabegron ER (Myrbetriq) 25 mg PO DAILY 30 days multivitamin (One Daily Multivitamin tablet) 1 tab PO DAILY nystatin 1 appl See Protocol topical TID nystatin 1 appl See Protocol topical BID pen needle, diabetic (BD Cathy 2nd Gen Pen Needle) As directed valsartan 20 mg See Protocol PO BID 90 days vitamins A,C,E-ltdf-jwboew 2,148 mcg-113 mg-45 mg-17.4mg (PreserVision AREDS) 1 tab PO BIDWM warfarin 1 mg See Protocol PO MOWEFR Nursing Note INR received from [facility] nurse SAGAR, INR today is 2.7, T/c to nurse SAGAR Patient status: NO CHANGES PER NURSE, DISCUSSED AGAIN POSSIBLY SWITCHING TO ALTERNATE SOURCE OF ANTICOAGULATION - NURSE STATED FAMILY DOES NOT SEEM INTERESTED AT THIS TIME, PT DAUGHTER LIZBETH IN ER WITH KNEE PAIN - BEING TREATED Denies any signs and symptoms of any unusual bruising, bleeding or clotting Medication or supplements: NO CHANGES Diet: GOOD Activity: TOLERATED Dose :WILL KEEP SAME DOSE FOR NOW 2MG THURSDAY/ 1MG X 6 DAYS Dosing and diet instructions given with next retest date of 1 WEEK DUE TO RECENT BLADDER MED T/C TO PT DAUGHTER LIZBETH - SHE WAS BEING D/C FROM ER, INR AND DOSING DISCUSSED AND REPEATED SEVERAL TIMES , ENC NURSE TO F/U WITH FAMILY, GIVING THE CURRENT SITUATION Nurse and patient daughter verbalizes understanding of instructions given with accurate read back Anti-Coag Initial Assessment Social Hx Patient Tobacco Use Status: Never used Tobacco alcohol intake: never Alcohol intake frequency: does not drink Coding Level of Care Code Est Patient Level 1 Diagnoses Current use of anticoagulant therapy Z79.01 Results AMB INR Fingerstick AMB INR Fingerstick 2.7 Last Edit by Zoraida Schultz RN on 03/09/24 13:58 [facility] Assessment & Plan Assessment & Plan (1) Current use of anticoagulant therapy: Code(s): 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
== END 2024-03-09 14:11 | disposition home or self-care (01) ==
LOC: HO.ACS 13:49
PROVIDERS: PCP Internal Medicine; Visit Provider Internal Medicine
DX: Z79.01 Long term (current) use of 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 (principal)

== ENCOUNTER → 2024-03-09 13:49 | Outpatient (BNVA) | payer MEDICARE, SELFPAY | PROVIDERS: PCP Internal Medicine; Visit Provider Internal Medicine | DX: I48.0 Paroxysmal atrial fibrillation (principal); Z51.81 Encounter for therapeutic drug level monitoring; Z79.01 Long term (current) use of 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 | CPT/HCPCS: 99211 ==

== ENCOUNTER 2024-03-14 21:32 | Inpatient (IN) | payer MEDICARE, SELFPAY ==
--- NOTE | ~2024-03-14 | CT_ITS ---
EXAMINATION: CT ABDOMEN AND PELVIS WITHOUT CONTRAST CLINICAL INFORMATION: Renal failure. COMPARISON: None available. TECHNIQUE: Multidetector volumetric imaging was performed from the superior aspect of the liver through the pubic symphysis. Sagittal and coronal reformatted images were obtained on the technologist's workstation. This CT examination was performed using dose optimization techniques as appropriate, variously including the following: *Automated exposure control *Adjustment of mA and/or kV according to patient size (this includes techniques or standardized protocols for targeted exams where dose is matched to indication/reason for exam; i.e. extremities or head) *Use of iterative reconstruction technique DLP: 767 mGy-cm FINDINGS: LUNG BASES: There is scarring and/or subsegmental atelectasis at the lung bases. LIVER, GALLBLADDER, AND BILIARY TREE: The liver is normal in size, shape, and attenuation. No focal hepatic lesion or biliary ductal dilatation is present. The gallbladder is not seen likely related to prior cholecystectomy. PANCREAS: Unremarkable. SPLEEN: Unremarkable. ADRENAL GLANDS: There is stable left adrenal gland thickening and nodularity. KIDNEYS AND URETERS: A stable likely 3 cm cyst midpole right kidney. There is no hydronephrosis. BLADDER: A suprapubic indwelling catheter is noted in place. There appears to be mild urinary bladder wall thickening. GASTROINTESTINAL TRACT: There are diverticula of the ascending and descending colon without diverticulitis ABDOMINAL WALL: No significant hernia is appreciated. LYMPH NODES: Normal. VASCULAR: Mild atherosclerotic plaque of the abdominal aorta. PELVIC VISCERA: There is air within the uterine cavity. OSSEOUS STRUCTURES: There is diffuse thoracolumbar disc and facet degenerative change. CT/CT abdomen pelvis wo IV con IMPRESSION: 1. There is air within the uterine cavity of uncertain etiology. 2. There is mild urinary bladder wall thickening. Suprapubic catheter in place. 3. Diverticulosis without diverticulitis. Fleischner guidelines were followed.
--- NOTE | ~2024-03-14 | XR_ITS ---
EXAMINATION: LEFT ELBOW, LEFT WRIST CLINICAL INFORMATION: Pain and bruising COMPARISON: None available. TECHNIQUE: 3 views left elbow, 3 views left wrist FINDINGS: Elbow: Degenerative changes are present at the elbow joint without joint effusions seen. No fractures are identified. Wrist: Severe degenerative changes are seen at the first CMC joint with narrowing sclerosis and osteophytes. Vascular calcifications are seen. No acute fractures or dislocations. XR/XR elbow LT 2V IMPRESSION: Degenerative changes in the elbow and wrist without evidence of an acute osseous injury.
--- NOTE | ~2024-03-14 | XR_ITS ---
EXAMINATION: LEFT ELBOW, LEFT WRIST CLINICAL INFORMATION: Pain and bruising COMPARISON: None available. TECHNIQUE: 3 views left elbow, 3 views left wrist FINDINGS: Elbow: Degenerative changes are present at the elbow joint without joint effusions seen. No fractures are identified. Wrist: Severe degenerative changes are seen at the first CMC joint with narrowing sclerosis and osteophytes. Vascular calcifications are seen. No acute fractures or dislocations. XR/XR wrist LT 2V IMPRESSION: Degenerative changes in the elbow and wrist without evidence of an acute osseous injury.
[2024-03-14 21:37] VITALS: BP 108/57; BP 120/68; PULSE 100; PULSE 97; RESP 18; TEMP 36.7; O2SAT 94; O2SAT 97; BMI 34.2
[2024-03-14 21:39] VITALS: BP 108/57; PULSE 103; RESP 15; TEMP 36.7; O2SAT 95
[2024-03-14 22:09] LABS: Basophils Percent Auto 0.4 % (0-2); Eosinophils Absolute Auto 0.1 X10*3/uL (0.0-0.4); Eosinophils Percent Auto 0.6 % (0-4); Hematocrit 38.8 % (37.0-47.0); Hemoglobin 12.4 g/dl (12.0-16.0); Imm Gran Abs Auto 0.04 X10*3/uL (0.00-0.03); Imm Gran Pct Auto 0.4 % (0.0-0.4); Lymphocytes Absolute Auto 1.7 X10*3/uL (1.2-4.9); Lymphocytes Percent Auto 16.3 % (20-40); MANUAL DIFF FLAG SCAN; Mean Corpuscular Hemoglobin 28.3 pg (27.0-33.0); Mean Corpuscular Volume 88.6 fL (80.0-98.0); Mean Platelet Volume 8.8 fL (9.4-12.3); Monocytes Absolute Auto 2.2 X10*3/uL (0.1-1.2); Monocytes Percent Auto 20.2 % (2-11); Neutrophils Absolute Auto 6.7 x10*3/uL (2.0-8.3); Neutrophils Percent Auto 62.1 % (45-73); Platelet Count 314 X10*3/uL (160-400); Red Blood Count 4.38 X10*6/uL (4.20-5.50); Red Cell Distribution Width 18.1 % (11.0-16.0); SCAN SMEAR FLAG 1; White Blood Count 10.7 X10*3/uL (4.8-10.8)
--- NOTE | 2024-03-14 22:13 | PC.NURSE ---
chem need to be redrawn, tech and rn made aware.
[2024-03-14 22:18] LABS: Lactic Acid 1.4 mmol/L (0.5-2.0)
[2024-03-14 22:40] LABS: SLIDE REVIEW VERIFIED
--- NOTE | 2024-03-14 23:13 | ED.GENADULT ---
HPI - General Adult General Chief complaint: General Medical Stated complaint: Left wrist pain, increasing confusion since yester Time Seen by Provider: 03/14/24 22:40 Source: patient and family Mode of arrival: ambulatory Limitations: no limitations History of Present Illness HPI narrative: 83 yo female with PMH of CHF, afib on coumadin, CKD Cr around 1.4, hypothyroidism, insulin dependent diabetes, HTN, neurogenic bladder with suprapubic catheter family brings her in as she uses a walker at home and 2 days ago started to c/o L wrist pain. She cannot really get around due to the pain. She has not had gout before but joint is red and hot and painful to move. Family also notes she has not been eating or drinking the last couple of days and is more confused - no falls or head strike. MD complaint: confusion, wrist pain, poor appetite Onset (ago): day(s) (2) Location: left and upper extremity Radiation: non-radiation Severity: moderate Quality: aching Pain Consistency: intermittent Relieving factors: immobilization Exacerbating factors: movement Associated symptoms: confusion, loss of appetite and malaise Treatments prior to arrival: none Related Data Home Medications ?Medication ?Instructions ?Recorded ?Confirmed levothyroxine 25 mcg tablet 25 mcg PO DAILY 09/05/20 03/09/24 aspirin 81 mg tablet,delayed 81 mg PO DAILY 09/11/21 03/09/24 release pen needle, diabetic 32 gauge x #50 ea 12/31/21 03/09/24 (BD Cathy 2nd Gen Pen Needle) multivitamin (One Daily 1 tab PO DAILY 09/15/22 03/09/24 Multivitamin tablet) lancets 28 gauge (FreeStyle #100 ea 09/29/22 03/09/24 Lancets) vitamins A,C,P-lawc-qnezwy 2,148 1 tab PO BIDWM 05/09/23 03/09/24 mcg-113 mg-45 mg-17.4 mg tablet (PreserVision AREDS) melatonin 5 mg tablet 10 mg PO BEDTIME PRN Sleep 06/04/23 03/09/24 amlodipine 5 mg tablet 5 mg PO DAILY 11/13/23 03/09/24 warfarin 1 mg tablet 1 mg PO MOWEFR 01/12/24 03/09/24 Previous Rx's ?Medication ?Instructions ?Recorded atorvastatin 10 mg tablet 10 mg PO BEDTIME #90 tabs 11/21/22 metoprolol succinate 200 mg 200 mg PO DAILY #90 tabs 06/29/23 tablet,extended release 24 hr empagliflozin 10 mg tablet 10 mg PO DAILY #30 tabs 09/02/23 (Jardiance) nystatin 100,000 unit/gram topical 1 appl topical BID #30 grams 09/02/23 powder valsartan 40 mg tablet 20 mg PO BID 90 days #90 tabs 12/01/23 benzonatate 100 mg capsule 100 mg PO TID #20 caps 01/23/24 furosemide 40 mg tablet (Lasix) 20 mg (1/2 x 40 mg) PO DAILY #30 01/23/24 tabs insulin glargine 100 unit/mL 25 unit (0.25 mL) subcut BEDTIME 01/23/24 subcutaneous solution (Lantus #10 mL U-100 Insulin) nystatin 100,000 unit/gram topical 1 appl topical TID #30 grams 01/23/24 powder mirabegron 25 mg tablet,extended 25 mg PO DAILY 30 days #30 tabs 02/16/24 release 24 hr (Myrbetriq) Allergies Allergy/AdvReac Type Severity Reaction Status Date / Time No Known Allergies Allergy Verified 03/14/24 21:41 [No Known Allergies*] Review of Systems Review of Systems: Constitutional : No Fever, No Chills, pos fatigue, pos anorexia ENT/Mouth : No Ear Pain, No Hoarseness, No sore throat Eyes: No Eye Pain, No Swelling, No Redness, No Foreign Body Cardiovascular : No Chest Pain, No SOB Respiratory : No Cough, No Dyspnea Gastrointestinal : No Nausea, No Vomiting, No Diarrhea, No abdominal Pain Genitourinary : No Dysuria, No Hematuria Musculoskeletal : positive joint pain, No Myalgias, pos Joint Swelling Skin : No Skin lacerations, No rash Neuro : No Weakness, No Numbness, No Loss of Consciousness, No Dizziness, No Headache Psych : No Anxiety/Panic, No Depression All other systems reviewed and are negative [facility] Past Medical History Attestation statement: The following information was validated with the patient. Source: old records reviewed Medical History Hydronephrosis determined by ultrasound Permanent atrial fibrillation DOROTHY (acute kidney injury) Atrial fibrillation Neuropathy Neurogenic bladder CVA (cerebral vascular accident) Shingles Elevated cholesterol Myocardial infarction MRSA infection Hip pain Leg wound, left Varicose vein of leg Osteoarthritis of right hip Current use of anticoagulant therapy Recurrent UTI Atrial fibrillation PAF (paroxysmal atrial fibrillation) Congestive heart failure Urinary incontinence Hypothyroidism Diabetes Hypertension CKD (chronic kidney disease) CAD (coronary artery disease) Hypotonic neurogenic bladder Surgical History History of left knee replacement History of right knee joint replacement H/O heart artery stent H/O nasal polypectomy History of tubal ligation History of tonsillectomy and adenoidectomy Hx of cholecystectomy Family History Family History Father Hx of angina pectoris Myocardial infarction Mother Ovarian cancer Stomach cancer Maternal Grandfather Hardening of the arteries of the heart Social History Social History Household Members: Children Household Members Other:: daughter Housing: House Are you a primary customer care representative to a significant other at home: No Do you presently have visiting nurse or other home services: Yes Alcohol intake: never Comment: [facility] [place] Tobacco Use Status: Never used Tobacco Second Hand Smoke Exposure: No Advance Directives: Yes Advance Directives on File: Yes Advance Directives Date on File: 08/27/22 Do you have a plan to hurt others: No Plan service: No Current occupational status: retired Physical Exam ED Vital Signs: Vital Signs - 24 hr 03/14/24 21:37 03/14/24 21:39 03/15/24 01:06 Temperature 98.1 F 98.1 F 98.1 F Pulse Rate 100 103 H 90 Respiratory Rate 18 15 20 Blood Pressure 108/57 L 108/57 L 132/56 L Pulse Oximetry 94 95 97 Oxygen Delivery Method Room Air Room Air Room Air 03/15/24 04:22 Temperature 98.4 F Pulse Rate 100 Respiratory Rate 20 Blood Pressure 157/68 H Pulse Oximetry 97 Oxygen Delivery Method Room Air BMI result Body Mass Index 34.2 Appearance: Alert. Oriented X3. No acute distress. Eyes: Pupils equal, round and reactive to light. ENT: Pharynx normal. Neck: Normal inspection. Neck supple. CVS: Normal heart rate and rhythm. Pulses normal. Respiratory: No respiratory distress. Breath sounds normal. Abdomen: Soft and nontender. Skin: Skin warm and dry. Normal skin color. Normal skin turgor. Extremities: No lower extremity edema. L wrist just on dorsum isolated to dorsum but not on anterior surface there is redness, warmth and ttp distal NV intact - I removed 3 rings and handed two clarisse rings to her daughter and one gold plated ring in front of the patient. The redness on her wrist does not extend onto the fingers or forearm there is no other swelling it appears more gout like Neuro: Oriented X 3. No motor deficit. No sensory deficit. Course Course Course Narrative: + UTI has hx of E. Coli S to ceftriaxone and MRSA in UTI S to doxy - infection suspected at 1156pm and has new onset acute renal failure - IVF ordered at this time will need admission Reevaluation(s) Reevaluation #1: I did try to call the daughter to update her but no response Medications Administered Generic Name Dose Route Start Last Admin Trade Name Freq PRN Reason Stop Dose Admin Sodium Chloride 1,000 mls @ 100 mls/hr 03/14/24 23:45 03/15/24 01:35 Ns IVCONT 100 mls/hr .Q10H SUN Administration Discontinued Medications Generic Name Dose Route Start Last Admin Trade Name Freq PRN Reason Stop Dose Admin Acetaminophen 975 mg 03/14/24 23:05 03/14/24 23:20 Acetaminophen 325 Mg Tablet PO 03/14/24 23:06 975 mg ONCE ONE Administration Sodium Chloride 500 mls @ 500 mls/hr 03/14/24 23:45 03/15/24 01:20 Ns IV 03/15/24 00:44 Infused .Q1H SUN Infusion Ceftriaxone Sodium 1 gm/ 50 mls @ 100 mls/hr 03/14/24 23:54 03/15/24 00:50 Sodium Chloride IV 03/15/24 00:23 Infused ONCE ONE Infusion Doxycycline Hyclate 100 mg/ 250 mls @ 166.67 mls/hr 03/15/24 00:06 03/15/24 01:36 Sodium Chloride IV 03/15/24 01:35 166.67 mls/hr ONCE ONE Administration Oxycodone HCl 2.5 mg 03/14/24 23:05 03/14/24 23:20 Oxycodone Hcl Immed Release 5 Mg Tablet PO 03/14/24 23:06 2.5 mg ONCE ONE Administration Prednisone 20 mg 03/14/24 23:05 03/14/24 23:20 Prednisone 20 Mg Tablet PO 03/14/24 23:06 20 mg ONCE ONE Administration Medical Decision Making Medical Decision Making [facility] Narrative: 83 yo female with PMH of CHF, afib on coumadin, CKD Cr around 1.4, hypothyroidism, insulin dependent diabetes, HTN, neurogenic bladder with suprapubic catheter family here with reported confusion but no confusion and alert and oriented on exam right now without headache doubt stroke or ICH, UA, uric acid, basic labs, given concern for gout I am going to start on very low dose oxycodone she does have pain and will monitor and start on low dose prednisone. I plan to keep her here overnight and monitor her vs admit family is aware and agrees. Differential Diagnosis Differential Diagnoses: The differential diagnosis associated with the presentation includes gout, dehydration, weakness, she is not confused right now no headache doubt ICH Admission/Observation Consideration of admission/observation: Escalation of care including admission/observation considered pending labs either admission vs rehab family feels she cannot go home and use walker Consult Healthcare Provider Management of the patient was discussed with: Hospitalist (Dr. Villafana will admit) Lab Data [facility] Lab Attestation statement: I reviewed the patient's lab results. 03/14/24 22:03 03/14/24 23:31 Labs: Lab Results 03/14/24 03/14/24 03/14/24 Range/Units 22:03 23:31 23:33 WBC 10.7 (4.8-10.8) X10*3/uL RBC 4.38 (4.20-5.50) X10*6/uL Hgb 12.4 (12.0-16.0) g/dl Hct 38.8 (37.0-47.0) % MCV 88.6 (80.0-98.0) fL MCH 28.3 (27.0-33.0) pg MCHC 32.0 (31.0-35.0) g/dl RDW 18.1 H (11.0-16.0) % Plt Count 314 (160-400) X10*3/uL MPV 8.8 L (9.4-12.3) fL Immature Gran % (Auto) 0.4 (0.0-0.4) % Neut % (Auto) 62.1 (45-73) % Lymph % (Auto) 16.3 L (20-40) % [place] % (Auto) 20.2 H (2-11) % Eos % (Auto) 0.6 (0-4) % Baso % (Auto) 0.4 (0-2) % Lymph # (Auto) 1.7 (1.2-4.9) X10*3/uL [place] # (Auto) 2.2 H (0.1-1.2) X10*3/uL Eos # (Auto) 0.1 (0.0-0.4) X10*3/uL Baso # (Auto) 0.0 (0.0-0.2) X10*3/uL Abs Immat Gran (auto) 0.04 H (0.00-0.03) X10*3/uL Absolute Neuts (auto) 6.7 (2.0-8.3) x10*3/uL Absolute Nucleated RBC 0.000 (0.0-0.012) X10*3/uL Nucleated RBC % (auto) 0.0 (0.0-0.2) /100WBC Smear Tech's Comments VERIFIED PT (11.1-13.3) SEC INR (0.9-1.1) Sodium 135 (135-145) mmol/L Potassium 4.2 (3.3-5.1) mmol/L Chloride 102 (96-108) mmol/L Carbon Dioxide 20 L (22-29) mmol/L Anion Gap 17 (12-20) BUN 51 H (9-16) mg/dL Creatinine 2.48 H (0.5-1.4) mg/dL Estim Creat Clear Calc 18.0 Estimated GFR 19 Random Glucose 136 H (60-115) mg/dL Lactic Acid 1.4 (0.5-2.0) mmol/L Uric Acid 9.5 H (2.4-5.7) mg/dL Calcium 9.1 D (8.4-10.2) mg/dL Total Bilirubin 0.5 (0.0-1.0) mg/dL AST 20 (5-31) U/L ALT 13 (0-31) U/L Alkaline Phosphatase 128 H (39-117) U/L Total Creatine Kinase 230 H (26-140) U/L Total Protein 8.8 H (6.5-8.0) g/dL Albumin 3.4 L (3.5-5.0) g/dL Urine Color Yellow Urine Appearance Turbid Urine pH 5.5 (5.0-9.0) Ur Specific [place] 1.025 (1.005-1.025) Urine Protein 300 (3+) H (Neg-Trace) mg/dL Urine Glucose (UA) Negative (Negative) mg/dL Urine Ketones Trace (Negative) mg/dL Urine Blood Large (3+) H (Negative) Urine Nitrite Negative (Negative) Ur Leukocyte Esterase Large (3+) H (Negative) Urine RBC 11-20 H (0-2) /HPF Urine WBC >50 H (0-5) /HPF Ur Squamous Epith Cells 0-2 (0-2) /HPF Urine Bacteria 2+ (None Seen) Hyaline Casts 0-2 (0-2) /LPF Urine Yeast Present 03/15/24 Range/Units 00:10 WBC (4.8-10.8) X10*3/uL RBC (4.20-5.50) X10*6/uL Hgb (12.0-16.0) g/dl Hct (37.0-47.0) % MCV (80.0-98.0) fL MCH (27.0-33.0) pg MCHC (31.0-35.0) g/dl RDW (11.0-16.0) % Plt Count (160-400) X10*3/uL MPV (9.4-12.3) fL Immature Gran % (Auto) (0.0-0.4) % Neut % (Auto) (45-73) % Lymph % (Auto) (20-40) % [place] % (Auto) (2-11) % Eos % (Auto) (0-4) % Baso % (Auto) (0-2) % Lymph # (Auto) (1.2-4.9) X10*3/uL [place] # (Auto) (0.1-1.2) X10*3/uL Eos # (Auto) (0.0-0.4) X10*3/uL Baso # (Auto) (0.0-0.2) X10*3/uL Abs Immat Gran (auto) (0.00-0.03) X10*3/uL Absolute Neuts (auto) (2.0-8.3) x10*3/uL Absolute Nucleated RBC (0.0-0.012) X10*3/uL Nucleated RBC % (auto) (0.0-0.2) /100WBC Smear Tech's Comments PT 26.3 H D (11.1-13.3) SEC INR 2.2 H (0.9-1.1) Sodium (135-145) mmol/L Potassium (3.3-5.1) mmol/L Chloride (96-108) mmol/L Carbon Dioxide (22-29) mmol/L Anion Gap (12-20) BUN (9-16) mg/dL Creatinine (0.5-1.4) mg/dL Estim Creat Clear Calc Estimated GFR Random Glucose (60-115) mg/dL Lactic Acid (0.5-2.0) mmol/L Uric Acid (2.4-5.7) mg/dL Calcium (8.4-10.2) mg/dL Total Bilirubin (0.0-1.0) mg/dL AST (5-31) U/L ALT (0-31) U/L Alkaline Phosphatase (39-117) U/L Total Creatine Kinase (26-140) U/L Total Protein (6.5-8.0) g/dL Albumin (3.5-5.0) g/dL Urine Color Urine Appearance Urine pH (5.0-9.0) Ur Specific [place] (1.005-1.025) Urine Protein (Neg-Trace) mg/dL Urine Glucose (UA) (Negative) mg/dL Urine Ketones (Negative) mg/dL Urine Blood (Negative) Urine Nitrite (Negative) Ur Leukocyte Esterase (Negative) Urine RBC (0-2) /HPF Urine WBC (0-5) /HPF Ur Squamous Epith Cells (0-2) /HPF Urine Bacteria (None Seen) Hyaline Casts (0-2) /LPF Urine Yeast Independent Interpretation I performed an independent interpretation of an: EKG, Plain X-Ray (no fracture) and CT Scan (no urinary obstruction) Interpretation: Rate: 104 Rhythm: afib [place]: normal Normal QRS complex. ST T wave : no DANILO, nonspecific ST T wave changes lateral leads qTC: 426 prior studies: no acute ischemia The study has been interpreted contemporaneously by me. . Radiology Impression Discussion of test interpretation with radiology: I have reviewed the radiologist's reading. Independent Historian Clinical information obtained from an independent historian. History obtained from or confirmed by: Other (daughter) External Record Review External record reviewed: Inpatient record Discharge Plan Discharge Clinical Impression: DOROTHY (acute kidney injury), Acute UTI Acute gout of wrist Qualifiers: Gout etiology: unspecified cause Laterality: left Qualified Code(s): M10.9 - Gout, unspecified Patient Disposition: Admitted As Inpatient Print Language: Nepalese
[2024-03-14] MEDS: Acetaminophen 325 MG TABLET 975 MG PO (23:20)
[2024-03-14] MEDS: oxyCODONE HCl Immed Release 5 MG TABLET 2.5 MG PO (23:20)
[2024-03-14] MEDS: predniSONE 20 MG TABLET PO (23:20)
[2024-03-14 23:41] LABS: Appearance Urine Turbid; Color Urine Yellow; Glucose Urine UA Negative (Negative); Leukocyte Esterase Urine Large (3+) (Negative); Nitrite Urine Negative (Negative); PH 5.5 (5.0-9.0); Specific Gravity - Urine 1.025 (1.005-1.025); UMIC TRIGGER UACC YES; Urine Blood Large (3+) (Negative); Urine Ketones Trace mg/dL (Negative); Urine Protein 300 (3+) mg/dL (Neg-Trace)
[2024-03-14 23:49] LABS: Bacteria Urine 2+ (None Seen); Hyaline Casts Urine 0-2 /LPF (0-2); Squamous Epithelial Cell Urine 0-2 /HPF (0-2); UACC Culture Trigger YES; WBC Urine >50 /HPF (0-5)
[2024-03-14 23:50] LABS: Alanine Aminotransferase 13 U/L (0-31); Albumin Level 3.4 g/dL (3.5-5.0); Alkaline Phosphatase 128 U/L (39-117); Anion Gap 17 (12-20); Aspartate Amino Transferase 20 U/L (5-31); Bilirubin Total 0.5 mg/dL (0.0-1.0); Blood Urea Nitrogen 51 mg/dL (9-16); Calcium 9.1 mg/dL (8.4-10.2); Carbon Dioxide 20 mmol/L (22-29); Chloride 102 mmol/L (96-108); Estimated Glomerular Filt Rate 19; Glucose Random 136 mg/dL (60-115); Potassium 4.2 mmol/L (3.3-5.1); Sodium 135 mmol/L (135-145); Total Protein 8.8 g/dL (6.5-8.0); Uric Acid 9.5 mg/dL (2.4-5.7)
[2024-03-15] VITALS (9 sets, daily range): BP systolic 105–170; BP diastolic 52–78; PULSE 90–100; RESP 13–20; TEMP 36.4–36.9; O2SAT 95–100
[2024-03-15] MEDS: cefTRIAXone sodium 1 GM in 0.9 % Sodium Chloride 50 ML IV (00:11)
[2024-03-15] MEDS: 0.9 % Sodium Chloride 500 ML IV (00:13)
--- NOTE | 2024-03-15 00:19 | ECG_ITS ---
Test Reason : WEAKNESS Blood Pressure : / mmHG Vent. Rate : 104 BPM Atrial Rate : 000 BPM P-R Int : 000 ms QRS Dur : 086 ms QT Int : 324 ms P-R-T Axes : 000 054 056 degrees QTc Int : 426 ms Atrial fibrillation with rapid ventricular response with premature ventricular or aberrantly conducted complexes Nonspecific ST abnormality Abnormal ECG When compared with ECG of 25-AUG-2023 15:28, Criteria for Septal infarct are no longer Present Nonspecific T wave abnormality no longer evident in Lateral leads Referred By: Milka Turner Electronically Signed By:NAVNEET JOHANSEN MD
[2024-03-15 00:25] LABS: INTERNATIONAL NORM RATIO 2.2 (0.9-1.1); Prothrombin Time 26.3 SEC (11.1-13.3)
[2024-03-15] MEDS: 0.9 % Sodium Chloride 1,000 ML 100 ML IVCONT ×3 (01:35→21:23)
[2024-03-15] MEDS: Doxycycline Hyclate 100 MG in 0.9 % Sodium Chloride 250 ML 166.67 MG IV (01:36)
--- NOTE | 2024-03-15 06:14 | PC.NURSE ---
PT comes from home via EMS with chief complaint of left wrist and elbow pain. PT family also states she has been increasingly confused, and her urine has been foul. PT has a suprapubric catheter. Urine sample obtained- urine cloudy with sediment. PT was a difficult stick- IV line placement took multiple attempts as well as labs. Chrissy Gonzalez RN was able to place line in right AC. PT medicated as per DEC. Flurids running at 100mls/h. Plan of care ongoing
--- NOTE | 2024-03-15 08:02 | P.HPHOSP_ITS ---
History of Present Illness Date of Service: 03/15/24 Chief Complaint: wrist pain 83F PMH chronic systolic chf (EF 45-50%, , MR), chronic afib on coumadin, CKD III, DM, hypothryoid, htn, neurogenic bladder with suprapubic catheter presented with left wrist pain. Patient reports pain started on morning day of presentation. Noticed at some point in the morning that left wrist was swollen and very tender, reduced range of motion. Patient denies taking anything for pain. Denies any trauma history. Denies any previous episodes. No fever or chills. Came to ED, x-ray with severe degenerative changes but no trauma. Noted to have elevated creatinine of 2.48, increased from 1.25 in January 2024. Review of Systems 2 Review of Systems: Yes all other systems are reviewed and are negative [facility] Medical History Hydronephrosis determined by ultrasound Permanent atrial fibrillation DOROTHY (acute kidney injury) Atrial fibrillation Neuropathy Neurogenic bladder CVA (cerebral vascular accident) Shingles Elevated cholesterol Myocardial infarction MRSA infection Hip pain Leg wound, left Varicose vein of leg Osteoarthritis of right hip Current use of anticoagulant therapy Recurrent UTI Atrial fibrillation PAF (paroxysmal atrial fibrillation) Congestive heart failure Urinary incontinence Hypothyroidism Diabetes Hypertension CKD (chronic kidney disease) CAD (coronary artery disease) Hypotonic neurogenic bladder Family History Father Hx of angina pectoris Myocardial infarction Mother Ovarian cancer Stomach cancer Maternal Grandfather Hardening of the arteries of the heart Surgical History History of left knee replacement History of right knee joint replacement H/O heart artery stent H/O nasal polypectomy History of tubal ligation History of tonsillectomy and adenoidectomy Hx of cholecystectomy Social History Household Members: Children Household Members Other:: daughter Housing: House Are you a primary spiritual care coordinator to a significant other at home: No Do you presently have visiting nurse or other home services: Yes Alcohol intake: [place] [facility] [place] Tobacco Use Status: Never used Tobacco Smoked in Last 30 Days: No Second Hand Smoke Exposure: No Use of substances other than those prescribed or required for medical reasons: No Advance Directives: Yes Advance Directives on File: Yes Advance Directives Date on File: 08/27/22 Do you have a plan to hurt others: No Plan service: No Current occupational status: retired Meds Allergies Allergy/AdvReac Type Severity Reaction Status Date / Time No Known Allergies Allergy Verified 03/14/24 21:41 [No Known Allergies*] Active Medications: Current Medications Sodium Chloride (Ns) 1,000 mls @ 100 mls/hr IVCONT .Q10H SUN Last Admin: 03/15/24 01:35 Dose: 100 mls/hr Home Medications ?Medication ?Instructions ?Recorded ?Confirmed ?Last Taken ?Type levothyroxine 25 mcg tablet 25 mcg PO DAILY 09/05/20 03/09/24 01/11/24 History aspirin 81 mg tablet,delayed 81 mg PO DAILY 09/11/21 03/09/24 01/11/24 History release pen needle, diabetic 32 gauge x #50 ea 12/31/21 03/09/24 Unknown History (BD Cathy 2nd Gen Pen Needle) multivitamin (One Daily 1 tab PO DAILY 09/15/22 03/09/24 01/11/24 History Multivitamin tablet) lancets 28 gauge (FreeStyle #100 ea 09/29/22 03/09/24 Unknown History Lancets) vitamins A,C,Q-lhxc-cvdsbf 2,148 1 tab PO BIDWM 05/09/23 03/09/24 01/11/24 History mcg-113 mg-45 mg-17.4 mg tablet (PreserVision AREDS) melatonin 5 mg tablet 10 mg PO BEDTIME PRN Sleep 06/04/23 03/09/24 01/11/24 History amlodipine 5 mg tablet 5 mg PO DAILY 11/13/23 03/09/24 01/11/24 History warfarin 1 mg tablet 1 mg PO MOWEFR 01/12/24 03/09/24 01/11/24 History Physical Exam 2 Vital Signs and Narrative: Vital Signs: Last Vital Signs Temp 98.4 F 03/15/24 06:46 Pulse 100 03/15/24 06:46 Resp 13 03/15/24 06:46 BP 170/53 H 03/15/24 06:46 Pulse Ox 97 03/15/24 06:46 O2 Del Method Room Air 03/15/24 06:46 BMI result Body Mass Index 34.2 General: AO X 3, no acute distress Resp: CTA bilateral, no accessory muscles used CVS: S1,S2,RRR, murmur GI: soft, non tender, non distended Neuro: motor grossly intact, alert Psych: appropriate affect, appropriate insight left wrist swollen, no erythema, reduced ROM, tender Results Labs 03/14/24 22:03 03/14/24 23:31 Labs: Laboratory Results - last 24 hr 03/14/24 03/14/24 03/14/24 22:03 23:31 23:33 MCV 88.6 MCH 28.3 MCHC 32.0 RDW 18.1 H Plt Count 314 MPV 8.8 L Immature Gran % (Auto) 0.4 Neut % (Auto) 62.1 Lymph % (Auto) 16.3 L Morrison % (Auto) 20.2 H Eos % (Auto) 0.6 Baso % (Auto) 0.4 Lymph # (Auto) 1.7 Morrison # (Auto) 2.2 H Eos # (Auto) 0.1 Baso # (Auto) 0.0 Abs Immat Gran (auto) 0.04 H Absolute Neuts (auto) 6.7 Absolute Nucleated RBC 0.000 Nucleated RBC % (auto) 0.0 Smear Tech's Comments VERIFIED PT INR Anion Gap 17 Estim Creat Clear Calc 18.0 Estimated GFR 19 Random Glucose 136 H Lactic Acid 1.4 Uric Acid 9.5 H Calcium 9.1 D Total Bilirubin 0.5 AST 20 ALT 13 Alkaline Phosphatase 128 H Total Creatine Kinase 230 H Total Protein 8.8 H Albumin 3.4 L Urine Color Yellow Urine Appearance Turbid Urine pH 5.5 Ur Specific [place] 1.025 Urine Protein 300 (3+) H Urine Glucose (UA) Negative Urine Ketones Trace Urine Blood Large (3+) H Urine Nitrite Negative Ur Leukocyte Esterase Large (3+) H Urine RBC 11-20 H Urine WBC >50 H Ur Squamous Epith Cells 0-2 Urine Bacteria 2+ Hyaline Casts 0-2 Urine Yeast Present 03/15/24 00:10 MCV MCH MCHC RDW Plt Count MPV Immature Gran % (Auto) Neut % (Auto) Lymph % (Auto) [place] % (Auto) Eos % (Auto) Baso % (Auto) Lymph # (Auto) Morrison # (Auto) Eos # (Auto) Baso # (Auto) Abs Immat Gran (auto) Absolute Neuts (auto) Absolute Nucleated RBC Nucleated RBC % (auto) Smear Tech's Comments PT 26.3 H D INR 2.2 H Anion Gap Estim Creat Clear Calc Estimated GFR Random Glucose Lactic Acid Uric Acid Calcium Total Bilirubin AST ALT Alkaline Phosphatase Total Creatine Kinase Total Protein Albumin Urine Color Urine Appearance Urine pH Ur Specific [place] Urine Protein Urine Glucose (UA) Urine Ketones Urine Blood Urine Nitrite Ur Leukocyte Esterase Urine RBC Urine WBC Ur Squamous Epith Cells Urine Bacteria Hyaline Casts Urine Yeast Imaging Radiologist's Impressions: Impressions Elbow X-Ray 03/14/24 22:36 IMPRESSION: Degenerative changes in the elbow and wrist without evidence of an acute osseous injury. Wrist X-Ray 03/14/24 22:36 IMPRESSION: Degenerative changes in the elbow and wrist without evidence of an acute osseous injury. Abdomen/Pelvis CT 03/15/24 01:20 IMPRESSION: 1. There is air within the uterine cavity of uncertain etiology. 2. There is mild urinary bladder wall thickening. Suprapubic catheter in place. 3. Diverticulosis without diverticulitis. Fleischner guidelines were followed. Assessment and Plan (1) Acute gout of wrist: Qualifiers: Gout etiology: unspecified cause Laterality: left Qualified Code(s): M 10.9 - Gout, unspecified Status: Acute Plan 83F PMH chronic systolic chf (EF 45-50%, , MR), chronic afib on coumadin, CKD III, DM, hypothryoid, htn, neurogenic bladder with suprapubic catheter presented with left wrist pain, found to have dorothy on ckd III DOROTHY on CKD III Hold valsartan, hold Lasix, gentle hydration Monitor BNP, nephrology eval Left wrist pain and swelling Likely acute inflammatory arthritis in background severe osteoarthritis Prednisone 40 mg daily PT/OT Bacteriuria and pyuria inpatient with chronic suprapubic catheter due to neurogenic bladder Denies fever, chills, or suprapubic discomfort 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 will hold off on further antibiotics for now, continue to monitor for symptoms Diabetes Basal bolus insulin Chronic atrial fibrillation Toprol, Coumadin Monitor INR Chronic systolic CHF Continue Toprol, valsartan and Lasix on hold for DOROTHY Hypothyroid Synthroid Hypertension Continue amlodipine, metoprolol DVT prophylaxis-on Coumadin Full code Patient with significant increasing creatinine from baseline, requiring IV fluids, close monitoring, expert consultation, therefore expected require at least 2 midnights inpatient Quality Stroke Does the patient have a stroke diagnosis?: No VTE Prior VTE?: No VTE Risk Level:: Medical - moderate - high VTE Device Contraindication: Treatment Not Indicated VTE Drug Contraindication: N/A - Med Ordered
[2024-03-15] MEDS: predniSONE 20 MG TABLET 40 MG PO (08:54)
[2024-03-15] MEDS: 0.9 % Sodium Chloride Flush 3 ML SYRINGE IVFLUSH (08:56)
--- NOTE | 2024-03-15 09:43 | PHA.MEDREC ---
Pharmacy Consult ? Medication Reconciliation Pharmacy has completed the medication reconciliation. Spoke with patient, poor historian. Spoke with daughter who helps manages her medication. Confirmed all medications. Daughter confirmed Lantus 25 units at bedtime, and sliding scale for Humalog. Last warfarin was taken last night. Coumadin clinic was supposed to reassess dose on Thursday, 03/16, but told patient to take 2mg on Wednesday 03/14, and 1mg daily until they reassessed.
[2024-03-15] MEDS: Metoprolol Succinate ER 100 MG TAB.ER.24H 200 MG PO (11:31)
[2024-03-15] MEDS: Multivitamin TABLET 1 TAB PO (11:34)
[2024-03-15] MEDS: amLODIPine Besylate 5 MG TABLET PO (11:34)
[2024-03-15] MEDS: Aspirin Enteric Coated 81 MG TABLET.DR PO (11:34)
[2024-03-15] MEDS: Empagliflozin 10 MG TABLET PO (11:34)
[2024-03-15] MEDS: Levothyroxine Sodium 25 MCG TABLET PO (11:34)
[2024-03-15] MEDS: Acetaminophen 325 MG TABLET 650 MG PO (11:42)
--- NOTE | 2024-03-15 12:59 | P.CONNP_ITS ---
History of Present Illness Reason for Consult Consult date: 03/15/24 Reason for consult: DOROTHY Chief Complaint Chief complaint: dorothy, inflammatory arthritis History of Present Illness Narrative: 83 woman with a h/o chronic systolic chf (EF 45-50%, , MR), chronic afib on coumadin, CKD III, DM, hypothryoid, htn, neurogenic bladder with suprapubic catheter presented with left wrist pain. Patient reports pain started on morning day of presentation. Noticed at some point in the morning that left wrist was swollen and very tender, reduced range of motion. Patient denies taking anything for pain including NSAIDS Denies any trauma history. Denies any previous episodes. No fever or chills. Came to ED, x-ray with severe degenerative changes but no trauma. She was on Valsartan and Lasix at the time of admission Baseline creatinine is 1.2 and on admission, creatinine was 2.48 Hence this consultation Review of Systems Constitutional: Denies fever(s) and Denies weight loss Cardiovascular: Denies chest pain Respiratory: Denies cough and Denies hemoptysis Gastrointestinal: Denies abdominal pain, Denies diarrhea and Denies nausea Musculoskeletal: Denies back pain Denies focal weakness [facility] Past Medical History Medical History Hydronephrosis determined by ultrasound Permanent atrial fibrillation DOROTHY (acute kidney injury) Atrial fibrillation Neuropathy Neurogenic bladder CVA (cerebral vascular accident) Shingles Elevated cholesterol Myocardial infarction MRSA infection Hip pain Leg wound, left Varicose vein of leg Osteoarthritis of right hip Current use of anticoagulant therapy Recurrent UTI Atrial fibrillation PAF (paroxysmal atrial fibrillation) Congestive heart failure Urinary incontinence Hypothyroidism Diabetes Hypertension CKD (chronic kidney disease) CAD (coronary artery disease) Hypotonic neurogenic bladder Family History Family History Father Hx of angina pectoris Myocardial infarction Mother Ovarian cancer Stomach cancer Maternal Grandfather Hardening of the arteries of the heart Surgical History Surgical History History of left knee replacement History of right knee joint replacement H/O heart artery stent H/O nasal polypectomy History of tubal ligation History of tonsillectomy and adenoidectomy Hx of cholecystectomy Social History Social History Household Members: Children Household Members Other:: daughter Housing: House Are you a primary client care specialist to a significant other at home: No Do you presently have visiting nurse or other home services: Yes Alcohol intake: never [place] [facility] [place] Tobacco Use Status: Never used Tobacco Smoked in Last 30 Days: No Second Hand Smoke Exposure: No Use of substances other than those prescribed or required for medical reasons: No Advance Directives: Yes Advance Directives on File: Yes Advance Directives Date on File: 08/27/22 Do you have a plan to hurt others: No Plan service: No Current occupational status: retired [employer] Allergies Allergy/AdvReac Type Severity Reaction Status Date / Time No Known Allergies Allergy Verified 03/14/24 21:41 [No Known Allergies*] Active Medications: Current Medications Acetaminophen (Acetaminophen 325 Mg Tablet) 650 mg PO Q6H PRN PRN Reason: Fever Acetaminophen (Acetaminophen 325 Mg Tablet) 650 mg PO Q6H PRN PRN Reason: Pain, Mild (Pain Scale 1-3) Last Admin: 03/15/24 11:42 Dose: 650 mg Acetaminophen (Acetaminophen 325 Mg Tablet) 650 mg PO Q6H PRN PRN Reason: Headache Amlodipine Besylate (Amlodipine Besylate 5 Mg Tablet) 5 mg PO DAILY [facility]; Protocol Last Admin: 03/15/24 11:34 Dose: 5 mg Aspirin (Aspirin Enteric Coated 81 Mg Tablet.Dr) 81 mg PO DAILY [facility] Last Admin: 03/15/24 11:34 Dose: 81 mg Atorvastatin Calcium (Atorvastatin Calcium 10 Mg Tablet) 10 mg PO BEDTIME [facility] Calcium Carbonate (Calcium Carbonate 750 Mg Tab.Chew) 750 mg PO Q6H PRN PRN Reason: Heartburn Empagliflozin (Empagliflozin 10 Mg Tablet) 10 mg PO DAILY [facility] Last Admin: 03/15/24 11:34 Dose: 10 mg Glucose (Glucose Gel 15 Gm Gel..Gram.) 15 gm PO Q15M PRN; Protocol PRN Reason: per Hypoglycemia Standing Ord. Sodium Chloride (Ns) 1,000 mls @ 100 mls/hr IVCONT .Q10H [facility] Last Admin: 03/15/24 08:58 Dose: 100 mls/hr Dextrose (D10) 250 mls @ 750 mls/hr IV Q15M PRN; Protocol PRN Reason: per Hypoglycemia Standing Ord. Insulin Glargine (Insulin Glargine,Hum.Rec.Anlog 100 Unit/Ml 10 Ml Vial) 25 unit SUBCUT BEDTIME [facility] Insulin Human Lispro (Insulin Lispro 100 Unit/Ml 3 Ml Vial) 0 unit SUBCUT QIDACHS [facility]; Protocol Levothyroxine Sodium (Levothyroxine Sodium 25 Mcg Tablet) 25 mcg PO DAILY@0600 [facility] Last Admin: 03/15/24 11:34 Dose: 25 mcg Magnesium Hydroxide (Milk Of Magnesia 30 Ml Oral.Susp) 30 ml PO DAILY PRN PRN Reason: Constipation Melatonin (Melatonin 3 Mg Tablet) 6 mg PO BEDTIME PRN PRN Reason: Insomnia Metoprolol Succinate (Metoprolol Succinate Er 100 Mg Tab.Er.24h) 200 mg PO DAILY [facility]; Protocol Last Admin: 03/15/24 11:31 Dose: 200 mg Multivitamins/Vitamin C (Multivitamin Tablet) 1 tab PO DAILY [facility] Last Admin: 03/15/24 11:34 Dose: 1 tab Polyethylene Glycol (Polyethylene Glycol 3350 17 Gm Powd.Pack) 17 gm PO DAILY PRN PRN Reason: Constipation Prednisone (Prednisone 20 Mg Tablet) 40 mg PO DAILY [facility] Last Admin: 03/15/24 08:54 Dose: 40 mg Sodium Chloride (0.9 % Sodium Chloride Flush 3 Ml Syringe) 3 ml IVFLUSH QSHIFT [facility] Last Admin: 03/15/24 08:56 Dose: 3 ml Warfarin Sodium (Warfarin Sodium 1 Mg Tablet) 1 mg PO DAILY@1800 [facility] Home Medications ?Medication ?Instructions ?Recorded ?Confirmed ?Last Taken ?Type levothyroxine 25 mcg tablet 25 mcg PO DAILY 09/05/20 03/15/24 03/14/24 History aspirin 81 mg tablet,delayed 81 mg PO DAILY 09/11/21 03/15/24 03/14/24 History release pen needle, diabetic 32 gauge x #50 ea 12/31/21 03/09/24 Unknown History (BD Cathy 2nd Gen Pen Needle) multivitamin (One Daily 1 tab PO DAILY 09/15/22 03/15/24 03/14/24 History Multivitamin tablet) lancets 28 gauge (FreeStyle #100 ea 09/29/22 03/09/24 Unknown History Lancets) vitamins A,C,B-cnfk-xkhjmw 2,148 1 tab PO BIDWM 05/09/23 03/15/24 03/14/24 History mcg-113 mg-45 mg-17.4 mg tablet (PreserVision AREDS) melatonin 5 mg tablet 10 mg PO BEDTIME PRN Sleep 06/04/23 03/15/24 03/14/24 History amlodipine 5 mg tablet 5 mg PO DAILY 11/13/23 03/15/24 03/14/24 History warfarin 1 mg tablet 1 mg PO DAILY 01/12/24 03/15/24 03/14/24 History furosemide 40 mg tablet (Lasix) 20 mg PO BID 03/15/24 03/15/24 03/14/24 History insulin aspart U-100 100 unit/mL See Protocol subcut QIDACHS 03/15/24 03/15/24 03/14/24 History subcutaneous solution valsartan 40 mg tablet 20 mg PO BID 03/15/24 03/15/24 03/14/24 History Physical Exam Vital Signs: Last Vital Signs Temp 98.4 F 03/15/24 06:46 Pulse 91 03/15/24 11:31 Resp 16 03/15/24 08:58 BP 121/58 L 03/15/24 11:34 Pulse Ox 95 03/15/24 08:58 O2 Del Method Room Air 03/15/24 08:58 BMI result Body Mass Index 34.2 Awake. Comfortable. Neck is supple. Mucosa moist. Lungs bilateral scattered rhonchi. Heart S1-S2 heard no gallop. Abdomen soft. SPC in place Extremities no edema. No involuntary movements. No myoclonus. Results Lab Results 03/14/24 22:03 03/14/24 23:31 Lab results: Chemistry 03/14/24 23:31 Sodium 135 Potassium 4.2 Carbon Dioxide 20 L BUN 51 H Creatinine 2.48 H Calcium 9.1 D Hematology 03/14/24 22:03 WBC 10.7 Hgb 12.4 Plt Count 314 Urinalysis 03/14/24 23:33 Urine Color Yellow Urine Appearance Turbid Urine pH 5.5 Ur Specific [place] 1.025 Urine Protein 300 (3+) H Urine Glucose (UA) Negative Urine Ketones Trace Urine Blood Large (3+) H Urine Nitrite Negative Ur Leukocyte Esterase Large (3+) H Urine RBC 11-20 H Urine WBC >50 H Ur Squamous Epith Cells 0-2 Hyaline Casts 0-2 Assessment and Plan (1) DOROTHY (acute kidney injury): Status: Acute Plan 83-year-old woman with a history of hypertension, neurogenic bladder with suprapubic catheter has acute kidney injury. Acute kidney injury is most likely due to hypoperfusion. However HTN/ATN need to be ruled out. No evidence of obstruction based on the CT scan. Of note he has an elevated total protein with proteinuria. Recommendations Hold Lasix and valsartan. Avoid hypotension. Continue to avoid nephrotoxic agents. Check serum calcium and serum protein electrophoresis. Keep intake more than output Follow renal function and urine output closely. Further workup will be based on the outcome of the above investigations Procedures Date of Service Date of Service: 03/15/24
[2024-03-15 13:12] LABS: Glucose, Whole Blood 232 mg/dL (60-115)
--- NOTE | 2024-03-15 13:17 | PM.UROCN ---
History of Present Illness Consult details Consult date: 03/15/24 Narrative: CC: UTI with suprapubic tube Belen is well known to Urology Two day history of left wrist pain. Has had some degree of confusion. Suprapubic tube changed Will change to every 3 weeks Review of Systems Constitutional: Constitutional: Reports as per HPI and Reports no additional constitutional complaints Cardiovascular: Cardiovascular: Reports as per HPI and Reports no additional cardiovascular complaints Respiratory: Respiratory: Reports as per HPI and Reports no additional respiratory complaints Gastrointestinal: Gastrointestinal: Reports as per HPI and Reports no additional gastrointestinal complaints Genitourinary: Genitourinary: Reports as per HPI Musculoskeletal: Musculoskeletal: Reports no additional musculoskeletal complaints and Reports as per HPI Neurologic: Reports system reviewed and no additional complaints, except as documented and Reports as per HPI [facility] Past Medical History Medical History Hydronephrosis determined by ultrasound Permanent atrial fibrillation DOROTHY (acute kidney injury) Atrial fibrillation Neuropathy Neurogenic bladder CVA (cerebral vascular accident) Shingles Elevated cholesterol Myocardial infarction MRSA infection Hip pain Leg wound, left Varicose vein of leg Osteoarthritis of right hip Current use of anticoagulant therapy Recurrent UTI Atrial fibrillation PAF (paroxysmal atrial fibrillation) Congestive heart failure Urinary incontinence Hypothyroidism Diabetes Hypertension CKD (chronic kidney disease) CAD (coronary artery disease) Hypotonic neurogenic bladder Family History Family History Father Hx of angina pectoris Myocardial infarction Mother Ovarian cancer Stomach cancer Maternal Grandfather Hardening of the arteries of the heart Surgical History Surgical History History of left knee replacement History of right knee joint replacement H/O heart artery stent H/O nasal polypectomy History of tubal ligation History of tonsillectomy and adenoidectomy Hx of cholecystectomy Social History Social History Household Members: Children Household Members Other:: daughter Housing: House Are you a primary home care specialist to a significant other at home: No Do you presently have visiting nurse or other home services: Yes Alcohol intake: never Comment: [facility] Patient Tobacco Use Status: Never used Tobacco Smoked in Last 30 Days: No Second Hand Smoke Exposure: No Use of substances other than those prescribed or required for medical reasons: No Advance Directives: Yes Advance Directives on File: Yes Advance Directives Date on File: 08/27/22 Do you have a plan to hurt others: No Plan service: No Current occupational status: retired Meds Allergies Allergy/AdvReac Type Severity Reaction Status Date / Time No Known Allergies Allergy Verified 03/14/24 21:41 [No Known Allergies*] Active Medications: Current Medications Acetaminophen (Acetaminophen 325 Mg Tablet) 650 mg PO Q6H PRN PRN Reason: Fever Acetaminophen (Acetaminophen 325 Mg Tablet) 650 mg PO Q6H PRN PRN Reason: Pain, Mild (Pain Scale 1-3) Last Admin: 03/15/24 11:42 Dose: 650 mg Acetaminophen (Acetaminophen 325 Mg Tablet) 650 mg PO Q6H PRN PRN Reason: Headache Amlodipine Besylate (Amlodipine Besylate 5 Mg Tablet) 5 mg PO DAILY [facility]; Protocol Last Admin: 03/15/24 11:34 Dose: 5 mg Aspirin (Aspirin Enteric Coated 81 Mg Tablet.Dr) 81 mg PO DAILY [facility] Last Admin: 03/15/24 11:34 Dose: 81 mg Atorvastatin Calcium (Atorvastatin Calcium 10 Mg Tablet) 10 mg PO BEDTIME [facility] Calcium Carbonate (Calcium Carbonate 750 Mg Tab.Chew) 750 mg PO Q6H PRN PRN Reason: Heartburn Empagliflozin (Empagliflozin 10 Mg Tablet) 10 mg PO DAILY [facility] Last Admin: 03/15/24 11:34 Dose: 10 mg Glucose (Glucose Gel 15 Gm Gel..Gram.) 15 gm PO Q15M PRN; Protocol PRN Reason: per Hypoglycemia Standing Ord. Sodium Chloride (Ns) 1,000 mls @ 100 mls/hr IVCONT .Q10H [facility] Last Admin: 03/15/24 08:58 Dose: 100 mls/hr Dextrose (D10) 250 mls @ 750 mls/hr IV Q15M PRN; Protocol PRN Reason: per Hypoglycemia Standing Ord. Insulin Glargine (Insulin Glargine,Hum.Rec.Anlog 100 Unit/Ml 10 Ml Vial) 25 unit SUBCUT BEDTIME [facility] Insulin Human Lispro (Insulin Lispro 100 Unit/Ml 3 Ml Vial) 0 unit SUBCUT QIDACHS [facility]; Protocol Levothyroxine Sodium (Levothyroxine Sodium 25 Mcg Tablet) 25 mcg PO DAILY@0600 [facility] Last Admin: 03/15/24 11:34 Dose: 25 mcg Magnesium Hydroxide (Milk Of Magnesia 30 Ml Oral.Susp) 30 ml PO DAILY PRN PRN Reason: Constipation Melatonin (Melatonin 3 Mg Tablet) 6 mg PO BEDTIME PRN PRN Reason: Insomnia Metoprolol Succinate (Metoprolol Succinate Er 100 Mg Tab.Er.24h) 200 mg PO DAILY [facility]; Protocol Last Admin: 03/15/24 11:31 Dose: 200 mg Multivitamins/Vitamin C (Multivitamin Tablet) 1 tab PO DAILY [facility] Last Admin: 03/15/24 11:34 Dose: 1 tab Polyethylene Glycol (Polyethylene Glycol 3350 17 Gm Powd.Pack) 17 gm PO DAILY PRN PRN Reason: Constipation Prednisone (Prednisone 20 Mg Tablet) 40 mg PO DAILY [facility] Last Admin: 03/15/24 08:54 Dose: 40 mg Sodium Chloride (0.9 % Sodium Chloride Flush 3 Ml Syringe) 3 ml IVFLUSH QSHIFT [facility] Last Admin: 03/15/24 08:56 Dose: 3 ml Warfarin Sodium (Warfarin Sodium 1 Mg Tablet) 1 mg PO DAILY@1800 [facility] Home Medications ?Medication ?Instructions ?Recorded ?Confirmed ?Last Taken ?Type levothyroxine 25 mcg tablet 25 mcg PO DAILY 09/05/20 03/15/24 03/14/24 History aspirin 81 mg tablet,delayed 81 mg PO DAILY 09/11/21 03/15/24 03/14/24 History release pen needle, diabetic 32 gauge x #50 ea 12/31/21 03/09/24 Unknown History (BD Cathy 2nd Gen Pen Needle) multivitamin (One Daily 1 tab PO DAILY 09/15/22 03/15/24 03/14/24 History Multivitamin tablet) lancets 28 gauge (FreeStyle #100 ea 09/29/22 03/09/24 Unknown History Lancets) vitamins A,C,Q-bdxh-nqngdb 2,148 1 tab PO BIDWM 05/09/23 03/15/24 03/14/24 History mcg-113 mg-45 mg-17.4 mg tablet (PreserVision AREDS) melatonin 5 mg tablet 10 mg PO BEDTIME PRN Sleep 06/04/23 03/15/24 03/14/24 History amlodipine 5 mg tablet 5 mg PO DAILY 11/13/23 03/15/24 03/14/24 History warfarin 1 mg tablet 1 mg PO DAILY 01/12/24 03/15/24 03/14/24 History furosemide 40 mg tablet (Lasix) 20 mg PO BID 03/15/24 03/15/24 03/14/24 History insulin aspart U-100 100 unit/mL See Protocol subcut QIDACHS 03/15/24 03/15/24 03/14/24 History subcutaneous solution valsartan 40 mg tablet 20 mg PO BID 03/15/24 03/15/24 03/14/24 History Physical Exam Vital Signs: Vital Signs: Last Vital Signs Temp 98.4 F 03/15/24 06:46 Pulse 91 03/15/24 11:31 Resp 16 03/15/24 08:58 BP 121/58 L 03/15/24 11:34 Pulse Ox 95 03/15/24 08:58 O2 Del Method Room Air 03/15/24 08:58 BMI result Body Mass Index 34.2 Const: General: cooperative, healthy appearing, comfortable and no acute distress Orientation/consciousness: patient oriented x3 HEENT: Face and sinus: Yes normal facial exam Mouth: moist mucous membranes Neck: Neck: Yes normal visual inspection, Yes full ROM and Yes trachea midline Chest: Chest palpation & inspection: normal inspection of the chest Resp: Effort & Inspection: normal respiratory effort, able to speak in complete sentences and no respiratory distress GI: Inspection: Yes normal to inspection Back/Spine/Pelvis: Cervical Spine: normal cervical lordosis Thoracic/Lumbar Spine: thoracic and lumbar spine normal to inspection Skin: General skin exam: no rashes or lesions noted Neuro: General: patient oriented x3, tone normal and moves all extremities Extrem: General: Yes normal to inspection and Yes capillary refill normal Results Labs 03/14/24 22:03 03/14/24 23:31 Labs: Abnormal lab results 03/14/24 03/14/24 03/14/24 Range/Units 22:03 23:31 23:33 RDW 18.1 H (11.0-16.0) % MPV 8.8 L (9.4-12.3) fL Lymph % (Auto) 16.3 L (20-40) % Surry % (Auto) 20.2 H (2-11) % Surry # (Auto) 2.2 H (0.1-1.2) X10*3/uL Abs Immat Gran (auto) 0.04 H (0.00-0.03) X10*3/uL PT (11.1-13.3) SEC INR (0.9-1.1) Carbon Dioxide 20 L (22-29) mmol/L BUN 51 H (9-16) mg/dL Creatinine 2.48 H (0.5-1.4) mg/dL POC Glucose (60-115) mg/dL Random Glucose 136 H (60-115) mg/dL Uric Acid 9.5 H (2.4-5.7) mg/dL Alkaline Phosphatase 128 H (39-117) U/L Total Creatine Kinase 230 H (26-140) U/L Total Protein 8.8 H (6.5-8.0) g/dL Albumin 3.4 L (3.5-5.0) g/dL Urine Protein 300 (3+) H (Neg-Trace) mg/dL Urine Blood Large (3+) H (Negative) Ur Leukocyte Esterase Large (3+) H (Negative) Urine RBC 11-20 H (0-2) /HPF Urine WBC >50 H (0-5) /HPF 03/15/24 03/15/24 Range/Units 00:10 13:06 RDW (11.0-16.0) % MPV (9.4-12.3) fL Lymph % (Auto) (20-40) % Surry % (Auto) (2-11) % [place]ry # (Auto) (0.1-1.2) X10*3/uL Abs Immat Gran (auto) (0.00-0.03) X10*3/uL PT 26.3 H D (11.1-13.3) SEC INR 2.2 H (0.9-1.1) Carbon Dioxide (22-29) mmol/L BUN (9-16) mg/dL Creatinine (0.5-1.4) mg/dL POC Glucose 232 H (60-115) mg/dL Random Glucose (60-115) mg/dL Uric Acid (2.4-5.7) mg/dL Alkaline Phosphatase (39-117) U/L Total Creatine Kinase (26-140) U/L Total Protein (6.5-8.0) g/dL Albumin (3.5-5.0) g/dL Urine Protein (Neg-Trace) mg/dL Urine Blood (Negative) Ur Leukocyte Esterase (Negative) Urine RBC (0-2) /HPF Urine WBC (0-5) /HPF Short CBC 03/14/24 Range/Units 22:03 WBC 10.7 (4.8-10.8) X10*3/uL Hgb 12.4 (12.0-16.0) g/dl Hct 38.8 (37.0-47.0) % Plt Count 314 (160-400) X10*3/uL BMP 03/14/24 23:31 Sodium 135 Potassium 4.2 Chloride 102 Carbon Dioxide 20 L BUN 51 H Creatinine 2.48 H Calcium 9.1 D Cardiac Enzymes 03/14/24 Range/Units 23:31 Total Creatine Kinase 230 H (26-140) U/L Liver Function 03/14/24 Range/Units 23:31 Total Bilirubin 0.5 (0.0-1.0) mg/dL AST 20 (5-31) U/L ALT 13 (0-31) U/L Alkaline Phosphatase 128 H (39-117) U/L Albumin 3.4 L (3.5-5.0) g/dL Urine 03/14/24 Range/Units 23:33 Urine Color Yellow Urine Appearance Turbid Urine pH 5.5 (5.0-9.0) Ur Specific Adel 1.025 (1.005-1.025) Urine Protein 300 (3+) H (Neg-Trace) mg/dL Urine Glucose (UA) Negative (Negative) mg/dL All other labs normal. Assessment and Plan (1) Acute UTI: Status: Acute (2) Hypotonic neurogenic bladder: Status: Acute Plan Change suprapubic tube every 3 weeks Procedures Date of Service Date of Service: 03/15/24
[2024-03-15] MEDS: Insulin Lispro 100 UNIT/ML 3 ML VIAL SUBCUT ×2 (13:43→20:30)
[2024-03-15] MEDS: Milk of Magnesia 30 ML ORAL.SUSP PO (17:09)
[2024-03-15 18:51] LABS: Creatinine Urine 47.54 mg/dL; Total Protein Urine Random 71 mg/dL (<12)
[2024-03-15] MEDS: Warfarin Sodium 1 MG TABLET PO (20:30)
[2024-03-15 20:42] LABS: Glucose, Whole Blood 317 mg/dL (60-115)
--- NOTE | 2024-03-15 21:03 | MHC.CM.PN ---
IMM 03/15. Original given to patient and copy to medical records. A&Ox4. Very Independent. 2 adult children live with patient. Uses a cane and a rollator. No longer drives. Active with [facility]. Has MOW through [employer]. Pt has a suprapubic catheter. Sees Dr. Crews. Pt is a full code. MOLST on file. HCP on file. HCP#1/daughter Sandra ([phone] and HCP #2/daughter Danielle Richardson ([phone]). Pt has 6 children. Patient tells CM they all help her. D/C plan is home with existing services. CM referral to [facility] to follow. Family will transport patient home. CM will follow for discharge planning.
[2024-03-15] MEDS: Atorvastatin Calcium 10 MG TABLET PO (21:21)
[2024-03-15] MEDS: Insulin Glargine,Hum.rec.anlog 100 UNIT/ML 10 ML VIAL 25 UNIT SUBCUT (21:22)
--- NOTE | 2024-03-15 22:03 | PC.NURSE ---
rec call from pt dtr Danielle Richardson- updated on plan of care, verbalizes understanding.
--- NOTE | 2024-03-15 22:34 | PC.NURSE ---
pt complains of pain at IV insertion site in R-AC, small cool collection of fluid noted. IV removed, warm compress applied. 22g IV re-established in right wrist- IVF infusing per order
[2024-03-16] VITALS (8 sets, daily range): BP systolic 111–134; BP diastolic 44–106; PULSE 88–107; RESP 14–20; TEMP 36.1–36.6; O2SAT 96–99
--- NOTE | 2024-03-16 01:01 | PC.NURSE ---
pt resting comfortably, requested a snack. sandwich and milk provided.
--- NOTE | 2024-03-16 01:16 | MHC.EDTECH ---
Pt underpads changed. Stephania care done and barrier cream applied to upper/inner right thigh and buttocks as done earlier in the night. Pt boosted and repositioned. Purewick placed. Pt given warm blankets and call zhou within reach.
[2024-03-16 05:32] LABS: Hematocrit 34.7 % (37.0-47.0); Hemoglobin 11.1 g/dl (12.0-16.0); Mean Corpuscular Hemoglobin 28.2 pg (27.0-33.0); Mean Corpuscular Volume 88.3 fL (80.0-98.0); Mean Platelet Volume 9.1 fL (9.4-12.3); Platelet Count 307 X10*3/uL (160-400); Red Blood Count 3.93 X10*6/uL (4.20-5.50); Red Cell Distribution Width 18.3 % (11.0-16.0); White Blood Count 12.7 X10*3/uL (4.8-10.8)
[2024-03-16 05:45] LABS: Anion Gap 17 (12-20); Blood Urea Nitrogen 54 mg/dL (9-16); Calcium 8.6 mg/dL (8.4-10.2); Carbon Dioxide 17 mmol/L (22-29); Chloride 107 mmol/L (96-108); Estimated Glomerular Filt Rate 20; Glucose Fasting 288 mg/dL (60-99); INTERNATIONAL NORM RATIO 2.3 (0.9-1.1); Potassium 4.5 mmol/L (3.3-5.1); Prothrombin Time 28.5 SEC (11.1-13.3); Sodium 136 mmol/L (135-145)
--- NOTE | 2024-03-16 06:23 | PC.NURSE ---
05:45 med delayed. >1hr remaining on current IV NS infusion
[2024-03-16] MEDS: Levothyroxine Sodium 25 MCG TABLET PO (07:03)
[2024-03-16 07:30] LABS: Glucose, Whole Blood 221 mg/dL (60-115)
[2024-03-16] MEDS: 0.9 % Sodium Chloride 1,000 ML 100 ML IVCONT ×2 (07:50→17:44)
[2024-03-16] MEDS: Insulin Lispro 100 UNIT/ML 3 ML VIAL SUBCUT ×3 (07:52→18:48)
[2024-03-16] MEDS: Aspirin Enteric Coated 81 MG TABLET.DR PO (08:25)
[2024-03-16] MEDS: amLODIPine Besylate 5 MG TABLET PO (08:25)
[2024-03-16] MEDS: Empagliflozin 10 MG TABLET PO (08:25)
[2024-03-16] MEDS: Multivitamin TABLET 1 TAB PO (08:25)
[2024-03-16] MEDS: predniSONE 20 MG TABLET 40 MG PO (08:25)
[2024-03-16] MEDS: Metoprolol Succinate ER 100 MG TAB.ER.24H 200 MG PO (08:25)
[2024-03-16 11:09] LABS: Anion Gap 13 (12-20); Blood Urea Nitrogen 52 mg/dL (9-16); Calcium 8.7 mg/dL (8.4-10.2); Carbon Dioxide 21 mmol/L (22-29); Chloride 107 mmol/L (96-108); Creatinine Clr Calc Pharmacy 19.9; Estimated Glomerular Filt Rate 21; Glucose Random 212 mg/dL (60-115); Potassium 4.4 mmol/L (3.3-5.1); Sodium 137 mmol/L (135-145)
[2024-03-16 12:20] LABS: Glucose, Whole Blood 214 mg/dL (60-115)
[2024-03-16] MEDS: Acetaminophen 325 MG TABLET 650 MG PO (13:37)
[2024-03-16] MEDS: oxyCODONE HCl Immed Release 5 MG TABLET 2.5 MG PO ×2 (13:38→21:57)
--- NOTE | 2024-03-16 14:29 | HO.PM.IMPN ---
Subjective Subjective Date of Service: 03/16/24 Physical Exam Vital Signs: Vital Signs: Last Vital Signs Temp 97.9 F 03/16/24 12:28 Pulse 94 03/16/24 12:28 Resp 18 03/16/24 12:28 BP 121/59 L 03/16/24 12:28 Pulse Ox 97 03/16/24 12:28 O2 Del Method Room Air 03/16/24 12:28 BMI result Body Mass Index 34.2 Objective Data Active Medications Acetaminophen (Acetaminophen 325 Mg Tablet) 650 mg PO Q6H PRN PRN Reason: Headache Last Admin: 03/16/24 13:37 Dose: 650 mg Documented By: CARLIE Acetaminophen (Acetaminophen 325 Mg Tablet) 975 mg PO QSHIFT [facility] Amlodipine Besylate (Amlodipine Besylate 5 Mg Tablet) 5 mg PO DAILY [facility]; Protocol Last Admin: 03/16/24 08:25 Dose: 5 mg Documented By: CARLIE Aspirin (Aspirin Enteric Coated 81 Mg Tablet.) 81 mg PO DAILY [facility] Last Admin: 03/16/24 08:25 Dose: 81 mg Documented By: CARLIE Atorvastatin Calcium (Atorvastatin Calcium 10 Mg Tablet) 10 mg PO BEDTIME [facility] Last Admin: 03/15/24 21:21 Dose: 10 mg Documented By: DARIANA Calcium Carbonate (Calcium Carbonate 750 Mg Tab.Chew) 750 mg PO Q6H PRN PRN Reason: Heartburn Empagliflozin (Empagliflozin 10 Mg Tablet) 10 mg PO DAILY [facility] Last Admin: 03/16/24 08:25 Dose: 10 mg Documented By: CARLIE Glucose (Glucose Gel 15 Gm Gel..Gram.) 15 gm PO Q15M PRN; Protocol PRN Reason: per Hypoglycemia Standing Ord. Sodium Chloride (Ns) 1,000 mls @ 100 mls/hr IVCONT .Q10H [facility] Last Admin: 03/16/24 07:50 Dose: 100 mls/hr Documented By: CARLIE Dextrose (D10) 250 mls @ 750 mls/hr IV Q15M PRN; Protocol PRN Reason: per Hypoglycemia Standing Ord. Insulin Glargine (Insulin Glargine,Hum.Rec.Anlog 100 Unit/Ml 10 Ml Vial) 25 unit SUBCUT BEDTIME [facility] Last Admin: 03/15/24 21:22 Dose: 25 unit Documented By: DARIANA Insulin Human Lispro (Insulin Lispro 100 Unit/Ml 3 Ml Vial) 0 unit SUBCUT QIDACHS [facility]; Protocol Last Admin: 03/16/24 13:25 Dose: 4 unit Documented By: CARLIE Levothyroxine Sodium (Levothyroxine Sodium 25 Mcg Tablet) 25 mcg PO DAILY@0600 [facility] Last Admin: 03/16/24 07:03 Dose: 25 mcg Documented By: GLEN Magnesium Hydroxide (Milk Of Magnesia 30 Ml Oral.Susp) 30 ml PO DAILY PRN PRN Reason: Constipation Last Admin: 03/15/24 17:09 Dose: 30 ml Documented By: DARIANA Melatonin (Melatonin 3 Mg Tablet) 6 mg PO BEDTIME PRN PRN Reason: Insomnia Metoprolol Succinate (Metoprolol Succinate Er 100 Mg Tab.Er.24h) 200 mg PO DAILY [facility]; Protocol Last Admin: 03/16/24 08:25 Dose: 200 mg Documented By: CARLIE Multivitamins/Vitamin C (Multivitamin Tablet) 1 tab PO DAILY [facility] Last Admin: 03/16/24 08:25 Dose: 1 tab Documented By: CARLIE Oxycodone HCl (Oxycodone Hcl Immed Release 5 Mg Tablet) 2.5 mg PO Q6H PRN PRN Reason: Pain, Severe (Pain Scale 7-10) Last Admin: 03/16/24 13:38 Dose: 2.5 mg Documented By: CARLIE Polyethylene Glycol (Polyethylene Glycol 3350 17 Gm Powd.Pack) 17 gm PO DAILY PRN PRN Reason: Constipation Prednisone (Prednisone 20 Mg Tablet) 40 mg PO DAILY [facility] Last Admin: 03/16/24 08:25 Dose: 40 mg Documented By: CARLIE Sodium Chloride (0.9 % Sodium Chloride Flush 3 Ml Syringe) 3 ml IVFLUSH QSHIFT [facility] Last Admin: 03/16/24 08:44 Dose: Not Given Documented By: CARLIE Non-Admin Reason: IV Running Warfarin Sodium (Warfarin Sodium 1 Mg Tablet) 1 mg PO DAILY@1800 [facility] Last Admin: 03/15/24 20:30 Dose: 1 mg Documented By: DARIANA Labs 03/16/24 04:29 03/16/24 10:28 Labs: Laboratory Results - last 24 hr 03/15/24 03/15/24 03/16/24 18:28 20:24 04:29 MCV 88.3 MCH 28.2 MCHC 32.0 RDW 18.3 H Plt Count 307 MPV 9.1 L Absolute Nucleated RBC 0.000 Nucleated RBC % (auto) 0.0 Hold Purple Top PT 28.5 H INR 2.3 H Anion Gap 17 Estim Creat Clear Calc 19.0 Estimated GFR 20 POC Glucose 317 H Random Glucose Fasting Glucose 288 H Calcium 8.6 U Random Total Protein 71 H Urine Creatinine 47.54 03/16/24 03/16/24 03/16/24 07:25 10:28 12:10 MCV MCH MCHC RDW Plt Count MPV Absolute Nucleated RBC Nucleated RBC % (auto) Hold Purple Top SEE NOTE PT INR Anion Gap 13 Estim Creat Clear Calc 19.9 Estimated GFR 21 POC Glucose 221 H 214 H Random Glucose 212 H Fasting Glucose Calcium 8.7 U Random Total Protein Urine Creatinine Microbiology Microbiology Results: Microbiology 03/15/24 00:10 Urine Culture - Preliminary Urine clean catch - Urine pires top Culture in progress. 03/14/24 22:03 Blood Culture - Preliminary Blood - Venous No growth after 24 hours. 03/14/24 22:03 Blood Culture - Preliminary Blood - Venous No growth after 24 hours. Assessment and Plan (1) Acute UTI: Status: Acute (2) Acute gout of wrist: Status: Acute (3) DOROTHY (acute kidney injury): Status: Acute Plan 83F PMH chronic systolic chf (EF 45-50%, , MR), chronic afib on coumadin, CKD III, DM, hypothryoid, htn, neurogenic bladder with suprapubic catheter presented with left wrist pain, found to have dorothy on ckd III DOROTHY on CKD III Still Cr elevated Hold valsartan, hold Lasix Continue gentle hydration Monitor BNP nephrology following: electropheresis, CA Left wrist pain and swelling 2/2 Likely acute inflammatory arthritis in background severe osteoarthritis Prednisone 40 mg daily Oxycodone PRN ATC Paracetamol PT/OT Bacteriuria and pyuria inpatient with chronic suprapubic catheter due to neurogenic bladder 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 hold off on further antibiotics for now, monitor for symptoms Urology input appreciated, Change suprapubic tube every 3 weeks Diabetes Basal bolus insulin Chronic atrial fibrillation Toprol, Coumadin Monitor INR Chronic systolic CHF Continue Toprol, valsartan and Lasix on hold for DOROTHY Hypothyroid Synthroid Hypertension Continue amlodipine, metoprolol DVT prophylaxis-on Coumadin Full code Patient will need overnight hospital stay for significant increasing creatinine from baseline, requiring IV fluids, close monitoring, expert consultation Quality Stroke Does the patient have a stroke diagnosis?: No VTE Prior VTE?: No VTE Risk Level:: Medical - moderate - high VTE Device Contraindication: Treatment Not Indicated VTE Drug Contraindication: N/A - Med Ordered
[2024-03-16 17:47] LABS: Glucose, Whole Blood 345 mg/dL (60-115)
--- NOTE | 2024-03-16 18:10 | PC.NURSE ---
called pharmacy for Coumadin
[2024-03-16] MEDS: Warfarin Sodium 1 MG TABLET PO (18:21)
--- NOTE | 2024-03-16 20:11 | PC.NURSE ---
Assumed care of pt. pt fallon brusher, only complaint L wrist pain. texting provider for recommendations on wrapping wrist for stability and comfort. No acute distress, continuing plan for admission.
--- NOTE | 2024-03-16 20:16 | PC.NURSE ---
Wrapped wrist with raymon wrap for comfort.
--- NOTE | 2024-03-16 21:08 | P.PNNP_ITS ---
Subjective Subjective Date of Service: 03/16/24 Interval history: Events noted; All recent data reviewed Physical Exam 2 Vital Signs: Vital Signs: Last Vital Signs Temp 97.9 F 03/16/24 20:33 Pulse 107 H 03/16/24 20:33 Resp 18 03/16/24 20:33 BP 118/64 03/16/24 20:33 Pulse Ox 97 03/16/24 20:33 O2 Del Method Room Air 03/16/24 20:33 BMI result Body Mass Index 34.2 Const: General: no acute distress Eyes: EOM: EOMs intact bilaterally Neck: Neck: Yes supple Resp: Auscultation: diminished lung sounds Cardio: Rate: regular rate GI: Palpation (GI): Soft to palpation Neuro: General: moves all extremities Objective Data Labs 03/16/24 04:29 03/16/24 10:28 Labs: Laboratory Results - last 24 hr 03/16/24 03/16/24 03/16/24 04:29 07:25 10:28 WBC 12.7 H RBC 3.93 L Hgb 11.1 L Hct 34.7 L MCV 88.3 MCH 28.2 MCHC 32.0 RDW 18.3 H Plt Count 307 MPV 9.1 L Absolute Nucleated RBC 0.000 Nucleated RBC % (auto) 0.0 Hold Purple Top SEE NOTE PT 28.5 H INR 2.3 H Sodium 136 137 Potassium 4.5 4.4 Chloride 107 107 Carbon Dioxide 17 L 21 L Anion Gap 17 13 BUN 54 H 52 H Creatinine 2.34 H 2.24 H Estim Creat Clear Calc 19.0 19.9 Estimated GFR 20 21 POC Glucose 221 H Random Glucose 212 H Fasting Glucose 288 H Calcium 8.6 8.7 03/16/24 03/16/24 12:10 17:41 WBC RBC Hgb Hct MCV MCH MCHC RDW Plt Count MPV Absolute Nucleated RBC Nucleated RBC % (auto) Hold Purple Top PT INR Sodium Potassium Chloride Carbon Dioxide Anion Gap BUN Creatinine Estim Creat Clear Calc Estimated GFR POC Glucose 214 H 345 H Random Glucose Fasting Glucose Calcium Microbiology Microbiology Results: Microbiology 03/15/24 00:10 Urine clean catch - Urine pires top Urine Culture - Preliminary Culture in progress. 03/14/24 22:03 Blood - Venous Blood Culture - Preliminary No growth after 24 hours. 03/14/24 22:03 Blood - Venous Blood Culture - Preliminary No growth after 24 hours. Procedures Date of Service Date of Service: 03/16/24 Assessment & Plan Assessment and plan (1) ROMEO (acute kidney injury): Status: Acute Plan Romeo due to tubular injury Unlikely AIN/GN C3/C4/Pr Cr ratio Ordered Serum creatinine stable No ACEI/ARB/NSAID's for now C/W rest of current supportive mgt Labs AM; Shall closely follow up Progress Note: Quality Stroke Does the patient have a stroke diagnosis?: No
[2024-03-16] MEDS: Atorvastatin Calcium 10 MG TABLET PO (21:56)
[2024-03-16] MEDS: Melatonin 3 MG TABLET 6 MG PO (21:56)
[2024-03-16] MEDS: Insulin Glargine,Hum.rec.anlog 100 UNIT/ML 10 ML VIAL 25 UNIT SUBCUT (21:56)
--- NOTE | 2024-03-16 22:17 | PC.NURSE ---
Holding Lispro dose per MD Villafana until midnight after POC glucose, if necessary.
[2024-03-17 00:02] LABS: Glucose, Whole Blood 302 mg/dL (60-115)
[2024-03-17] MEDS: Insulin Lispro 100 UNIT/ML 3 ML VIAL SUBCUT ×4 (00:50→21:26)
[2024-03-17 05:10] LABS: Hematocrit 35.6 % (37.0-47.0); Mean Corpuscular HGB Conc 30.9 g/dl (31.0-35.0); Mean Corpuscular Hemoglobin 27.7 pg (27.0-33.0); Mean Corpuscular Volume 89.7 fL (80.0-98.0); Mean Platelet Volume 9.3 fL (9.4-12.3); Platelet Count 317 X10*3/uL (160-400); Red Blood Count 3.97 X10*6/uL (4.20-5.50); Red Cell Distribution Width 18.1 % (11.0-16.0); White Blood Count 9.9 X10*3/uL (4.8-10.8)
[2024-03-17 05:15] LABS: INTERNATIONAL NORM RATIO 2.3 (0.9-1.1); Prothrombin Time 27.4 SEC (11.1-13.3)
[2024-03-17 05:28] LABS: Anion Gap 18 (12-20); Blood Urea Nitrogen 51 mg/dL (9-16); Calcium 8.5 mg/dL (8.4-10.2); Carbon Dioxide 12 mmol/L (22-29); Chloride 111 mmol/L (96-108); Creatinine Clr Calc Pharmacy 22.1; Estimated Glomerular Filt Rate 24; Glucose Random 215 mg/dL (60-115); Potassium 4.9 mmol/L (3.3-5.1); Sodium 136 mmol/L (135-145)
[2024-03-17 05:57] VITALS: BP 153/84; PULSE 84; RESP 19; TEMP 36.4; O2SAT 94
[2024-03-17] MEDS: Levothyroxine Sodium 25 MCG TABLET PO (06:26)
[2024-03-17] MEDS: oxyCODONE HCl Immed Release 5 MG TABLET 2.5 MG PO (06:26)
[2024-03-17 07:34] VITALS: BP 116/88; PULSE 92; RESP 12; TEMP 36.4; O2SAT 96
[2024-03-17 08:00] VITALS: BP 117/73; PULSE 85; RESP 18; TEMP 36.6; O2SAT 100
--- NOTE | 2024-03-17 08:00 | PC.NURSE ---
patient sitting up in bed, having breakfast, respirations equal and unlabored, skin dry and intact. patient is alert and oriented x3. 200 ml emptied from patient martinez bag. VSS
[2024-03-17 08:44] LABS: Glucose, Whole Blood 214 mg/dL (60-115)
[2024-03-17] MEDS: Multivitamin TABLET 1 TAB PO (08:52)
[2024-03-17] MEDS: amLODIPine Besylate 5 MG TABLET PO (08:52)
[2024-03-17] MEDS: Sodium Bicarbonate 650 MG TABLET 1300 MG PO ×2 (08:52→21:24)
[2024-03-17] MEDS: Metoprolol Succinate ER 100 MG TAB.ER.24H 200 MG PO (08:53)
[2024-03-17] MEDS: predniSONE 20 MG TABLET 40 MG PO (08:53)
[2024-03-17] MEDS: Aspirin Enteric Coated 81 MG TABLET.DR PO (08:53)
[2024-03-17] MEDS: Acetaminophen 325 MG TABLET 975 MG PO ×2 (08:53→16:22)
[2024-03-17] MEDS: Empagliflozin 10 MG TABLET PO (08:53)
[2024-03-17 09:28] LABS: Prot Elec - Alpha1 0.4 g/dL (0.2-0.3); Prot Elec - Alpha2 1.1 g/dL (0.5-0.9); Prot Elec - Beta 1 0.4 g/dL (0.4-0.6); Prot Elec - Beta 2 0.7 g/dL (0.2-0.5); Prot Elec - Gamma 2.1 g/dL (0.8-1.7); Prot Elec - Total Protein 7.7 g/dL (6.1-8.1)
--- NOTE | 2024-03-17 10:39 | P.PNNP_ITS ---
Subjective Subjective Date of Service: 03/17/24 Interval history: Events noted; All recent data reviewed Still with left hand swelling Physical Exam 2 Vital Signs: Vital Signs: Last Vital Signs Temp 97.8 F 03/17/24 08:00 Pulse 85 03/17/24 08:00 Resp 18 03/17/24 08:00 BP 117/73 03/17/24 08:00 Pulse Ox 100 03/17/24 08:00 O2 Del Method Room Air 03/17/24 08:00 BMI result Body Mass Index 34.2 Const: General: no acute distress Eyes: EOM: EOMs intact bilaterally Neck: Neck: Yes supple Resp: Auscultation: diminished lung sounds Cardio: Rate: regular rate GI: Palpation (GI): Soft to palpation Neuro: General: moves all extremities Objective Data Labs 03/17/24 04:28 03/17/24 04:28 Labs: Laboratory Results - last 24 hr 03/16/24 03/16/24 03/16/24 10:28 12:10 17:41 WBC RBC Hgb Hct MCV MCH MCHC RDW Plt Count MPV Absolute Nucleated RBC Nucleated RBC % (auto) Hold Purple Top SEE NOTE PT INR Sodium 137 Potassium 4.4 Chloride 107 Carbon Dioxide 21 L Anion Gap 13 BUN 52 H Creatinine 2.24 H Estim Creat Clear Calc 19.9 Estimated GFR 21 POC Glucose 214 H 345 H Random Glucose 212 H Calcium 8.7 Total Protein (PEP) 7.7 Albumin (PEP) 3.0 L Dbxrf-3-Gdtipbeap 0.4 H Gibrz-5-Bnzimlgja 1.1 H Ybpd-1-Ukkxmxzc 0.4 Fwws-8-Gokktnee 0.7 H Gamma Globulins 2.1 H PEP Interpretation SEE NOTE 03/16/24 03/17/24 03/17/24 23:53 04:28 08:40 WBC 9.9 RBC 3.97 L Hgb 11.0 L Hct 35.6 L MCV 89.7 MCH 27.7 MCHC 30.9 L RDW 18.1 H Plt Count 317 MPV 9.3 L Absolute Nucleated RBC 0.000 Nucleated RBC % (auto) 0.0 Hold Purple Top PT 27.4 H INR 2.3 H Sodium 136 Potassium 4.9 Chloride 111 H Carbon Dioxide 12 L Anion Gap 18 BUN 51 H Creatinine 2.02 H Estim Creat Clear Calc 22.1 Estimated GFR 24 POC Glucose 302 H 214 H Random Glucose 215 H Calcium 8.5 Total Protein (PEP) Albumin (PEP) Qrfbu-7-Xpyypwmad Xlqpq-9-Nbdrpbhmd Qyja-7-Wxivryew Tmeq-3-Dnbhkjmm Gamma Globulins PEP Interpretation Microbiology Microbiology Results: Microbiology 03/14/24 22:03 Blood - Venous Blood Culture - Preliminary No growth after 48 hours. 03/14/24 22:03 Blood - Venous Blood Culture - Preliminary No growth after 48 hours. 03/15/24 00:10 Urine clean catch - Urine pires top Urine Culture - Preliminary Culture in progress. Procedures Date of Service Date of Service: 03/17/24 Assessment & Plan Assessment and plan (1) ROMEO (acute kidney injury): Status: Acute Plan Romeo due to tubular injury Unlikely AIN/GN C3/C4- pending Pr Cr ratio < 2 gm Serum creatinine has marginally improved No ACEI/ARB/NSAID's for now C/W rest of current supportive mgt Labs AM; Shall closely follow up Time Spent With Patient Time: Total time managing care of this patient today ____ minutes. Progress Note: Quality Stroke Does the patient have a stroke diagnosis?: No
[2024-03-17 11:35] LABS: Glucose, Whole Blood 232 mg/dL (60-115)
[2024-03-17 13:39] VITALS: BP 117/73; PULSE 85; O2SAT 100
--- NOTE | 2024-03-17 14:41 | HO.PM.IMPN ---
Subjective Subjective Date of Service: 03/17/24 Interval History: seen and evaluated this morning Feels better overall Cr mildly better Wrist pain improved Review of Systems Review of Systems: Yes all other systems are reviewed and are negative Physical Exam Vital Signs: Vital Signs: Last Vital Signs Temp 97.8 F 03/17/24 08:00 Pulse 85 03/17/24 13:39 Resp 18 03/17/24 08:00 BP 117/73 03/17/24 13:39 Pulse Ox 100 03/17/24 13:39 O2 Del Method Room Air 03/17/24 08:00 BMI result Body Mass Index 34.2 Const: Other: Constitutional : interactive, not in distress Cardiovascular : no JVP, no lower extremity edema Respiratory : bilateral chest movement, not in resp distress Gastrointestinal: soft, lax, Non tender Skin : Warm, Dry Skeletal: Left wrist less swollen and has more ROM Neurological : Alert & oriented , No focal deficit Objective Data Active Medications Acetaminophen (Acetaminophen 325 Mg Tablet) 650 mg PO Q6H PRN PRN Reason: Headache Last Admin: 03/16/24 13:37 Dose: 650 mg Documented By: CARLIE Acetaminophen (Acetaminophen 325 Mg Tablet) 975 mg PO QSHIFT [facility] Last Admin: 03/17/24 08:53 Dose: 975 mg Documented By: JAROD Amlodipine Besylate (Amlodipine Besylate 5 Mg Tablet) 5 mg PO DAILY [facility]; Protocol Last Admin: 03/17/24 08:52 Dose: 5 mg Documented By: JAROD Aspirin (Aspirin Enteric Coated 81 Mg Tablet.) 81 mg PO DAILY [facility] Last Admin: 03/17/24 08:53 Dose: 81 mg Documented By: JAROD Atorvastatin Calcium (Atorvastatin Calcium 10 Mg Tablet) 10 mg PO BEDTIME [facility] Last Admin: 03/16/24 21:56 Dose: 10 mg Documented By: ADELAIDE Calcium Carbonate (Calcium Carbonate 750 Mg Tab.Chew) 750 mg PO Q6H PRN PRN Reason: Heartburn Empagliflozin (Empagliflozin 10 Mg Tablet) 10 mg PO DAILY [facility] Last Admin: 03/17/24 08:53 Dose: 10 mg Documented By: JAROD Glucose (Glucose Gel 15 Gm Gel..Gram.) 15 gm PO Q15M PRN; Protocol PRN Reason: per Hypoglycemia Standing Ord. Dextrose (D10) 250 mls @ 750 mls/hr IV Q15M PRN; Protocol PRN Reason: per Hypoglycemia Standing Ord. Insulin Glargine (Insulin Glargine,Hum.Rec.Anlog 100 Unit/Ml 10 Ml Vial) 25 unit SUBCUT BEDTIME [facility] Last Admin: 03/16/24 21:56 Dose: 25 unit Documented By: ADELAIDE Insulin Human Lispro (Insulin Lispro 100 Unit/Ml 3 Ml Vial) 0 unit SUBCUT QIDACHS [facility]; Protocol Last Admin: 03/17/24 11:57 Dose: 4 unit Documented By: KASH Levothyroxine Sodium (Levothyroxine Sodium 25 Mcg Tablet) 25 mcg PO DAILY@0600 [facility] Last Admin: 03/17/24 06:26 Dose: 25 mcg Documented By: ADELAIDE Magnesium Hydroxide (Milk Of Magnesia 30 Ml Oral.Susp) 30 ml PO DAILY PRN PRN Reason: Constipation Last Admin: 03/15/24 17:09 Dose: 30 ml Documented By: DARIANA Melatonin (Melatonin 3 Mg Tablet) 6 mg PO BEDTIME PRN PRN Reason: Insomnia Last Admin: 03/16/24 21:56 Dose: 6 mg Documented By: ADELAIDE Metoprolol Succinate (Metoprolol Succinate Er 100 Mg Tab.Er.24h) 200 mg PO DAILY [facility]; Protocol Last Admin: 03/17/24 08:53 Dose: 200 mg Documented By: JAROD Multivitamins/Vitamin C (Multivitamin Tablet) 1 tab PO DAILY [facility] Last Admin: 03/17/24 08:52 Dose: 1 tab Documented By: JAROD Oxycodone HCl (Oxycodone Hcl Immed Release 5 Mg Tablet) 2.5 mg PO Q6H PRN PRN Reason: Pain, Severe (Pain Scale 7-10) Last Admin: 03/17/24 06:26 Dose: 2.5 mg Documented By: ADELAIDE Polyethylene Glycol (Polyethylene Glycol 3350 17 Gm Powd.Pack) 17 gm PO DAILY PRN PRN Reason: Constipation Prednisone (Prednisone 20 Mg Tablet) 40 mg PO DAILY [facility] Last Admin: 03/17/24 08:53 Dose: 40 mg Documented By: JAROD Sodium Bicarbonate (Sodium Bicarbonate 650 Mg Tablet) 1,300 mg PO BID [facility] Last Admin: 03/17/24 08:52 Dose: 1,300 mg Documented By: JAROD Sodium Chloride (0.9 % Sodium Chloride Flush 3 Ml Syringe) 3 ml IVFLUSH QSHIFT [facility] Last Admin: 03/17/24 08:42 Dose: Not Given Documented By: JAROD Non-Admin Reason: See Note Warfarin Sodium (Warfarin Sodium 1 Mg Tablet) 1 mg PO DAILY@1800 [facility] Last Admin: 03/16/24 18:21 Dose: 1 mg Documented By: CARLIE Labs 03/17/24 04:28 03/17/24 04:28 Labs: Laboratory Results - last 24 hr 03/16/24 03/16/24 03/16/24 10:28 17:41 23:53 MCV MCH MCHC RDW Plt Count MPV Absolute Nucleated RBC Nucleated RBC % (auto) PT INR Anion Gap Estim Creat Clear Calc Estimated GFR POC Glucose 345 H 302 H Random Glucose Calcium Total Protein (PEP) 7.7 Albumin (PEP) 3.0 L Shunq-3-Lszufqyze 0.4 H Pbqxb-1-Fioazzjkx 1.1 H Ucmc-4-Uyvnjhvc 0.4 Okri-1-Htricsbb 0.7 H Gamma Globulins 2.1 H PEP Interpretation SEE NOTE 03/17/24 03/17/24 03/17/24 04:28 08:40 11:28 MCV 89.7 MCH 27.7 MCHC 30.9 L RDW 18.1 H Plt Count 317 MPV 9.3 L Absolute Nucleated RBC 0.000 Nucleated RBC % (auto) 0.0 PT 27.4 H INR 2.3 H Anion Gap 18 Estim Creat Clear Calc 22.1 Estimated GFR 24 POC Glucose 214 H 232 H Random Glucose 215 H Calcium 8.5 Total Protein (PEP) Albumin (PEP) Wkcxq-7-Vdzddicdj Bhqka-1-Mufrghpww Sgky-3-Ihzkujbx Xrfn-2-Gynesdda Gamma Globulins PEP Interpretation Microbiology Microbiology Results: Microbiology 03/15/24 00:10 Urine Culture - Final Urine clean catch - Urine pires top 03/14/24 22:03 Blood Culture - Preliminary Blood - Venous No growth after 48 hours. 03/14/24 22:03 Blood Culture - Preliminary Blood - Venous No growth after 48 hours. Assessment and Plan (1) Acute UTI: Status: Acute (2) Acute gout of wrist: Status: Acute (3) DOROTHY (acute kidney injury): Status: Acute Plan 83F PMH chronic systolic chf (EF 45-50%, , MR), chronic afib on coumadin, CKD III, DM, hypothryoid, htn, neurogenic bladder with suprapubic catheter presented with left wrist pain, found to have dorothy on ckd III DOROTHY on CKD III complicated with metabolic aciosis likely 2/2 ATN Cr elevated but improving slowly C3/C4- pending Hold valsartan, Lasix Continue gentle hydration Start sodium Bicarb nephrology following: electropheresis, CA follow BMP Left wrist pain and swelling 2/2 Likely acute inflammatory arthritis in background severe osteoarthritis Prednisone 40 mg daily Oxycodone PRN ATC Paracetamol PT/OT Bacteriuria and pyuria inpatient with chronic suprapubic catheter due to neurogenic bladder 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 hold off on further antibiotics for now, monitor for symptoms Urology input appreciated, Change suprapubic tube every 3 weeks Diabetes Basal bolus insulin Chronic atrial fibrillation Toprol, Coumadin Monitor INR Chronic systolic CHF Continue Toprol, valsartan and Lasix on hold for DOROTHY Hypothyroid Synthroid Hypertension Continue amlodipine, metoprolol DVT prophylaxis-on Coumadin Full code Patient will need overnight hospital stay for significant increasing creatinine from baseline, requiring IV fluids, close monitoring, expert consultation Quality Stroke Does the patient have a stroke diagnosis?: No VTE Prior VTE?: No VTE Risk Level:: Medical - moderate - high VTE Device Contraindication: Treatment Not Indicated VTE Drug Contraindication: N/A - Med Ordered
[2024-03-17 16:00] VITALS: BP 157/79; PULSE 98; RESP 22; TEMP 36.3; O2SAT 97
[2024-03-17] MEDS: 0.9 % Sodium Chloride 1,000 ML 80 ML IVCONT (16:28)
[2024-03-17] MEDS: 0.9 % Sodium Chloride Flush 3 ML SYRINGE IVFLUSH (16:28)
[2024-03-17 16:29] LABS: Glucose, Whole Blood 290 mg/dL (60-115)
[2024-03-17] MEDS: Warfarin Sodium 1 MG TABLET PO (17:12)
[2024-03-17 19:51] VITALS: BP 142/80; PULSE 96; RESP 17; TEMP 36.7; O2SAT 96
[2024-03-17 20:48] LABS: Glucose, Whole Blood 334 mg/dL (60-115)
[2024-03-17] MEDS: Atorvastatin Calcium 10 MG TABLET PO (21:25)
[2024-03-17] MEDS: Insulin Glargine,Hum.rec.anlog 100 UNIT/ML 10 ML VIAL 25 UNIT SUBCUT (21:26)
[2024-03-18 03:28] VITALS: BP 129/95; PULSE 99; RESP 16; TEMP 36.2; O2SAT 97
[2024-03-18] MEDS: 0.9 % Sodium Chloride 1,000 ML 80 ML IVCONT (03:44)
[2024-03-18] MEDS: Levothyroxine Sodium 25 MCG TABLET PO (05:47)
[2024-03-18 07:39] LABS: Glucose, Whole Blood 188 mg/dL (60-115)
[2024-03-18] MEDS: Insulin Lispro 100 UNIT/ML 3 ML VIAL SUBCUT ×4 (07:40→20:39)
[2024-03-18] MEDS: oxyCODONE HCl Immed Release 5 MG TABLET 2.5 MG PO (07:40)
[2024-03-18] MEDS: Metoprolol Succinate ER 100 MG TAB.ER.24H 200 MG PO (07:40)
[2024-03-18] MEDS: predniSONE 20 MG TABLET 40 MG PO (07:41)
[2024-03-18] MEDS: Acetaminophen 325 MG TABLET 975 MG PO ×2 (07:41→16:34)
[2024-03-18] MEDS: Multivitamin TABLET 1 TAB PO (07:41)
[2024-03-18] MEDS: amLODIPine Besylate 5 MG TABLET PO (07:41)
[2024-03-18] MEDS: Empagliflozin 10 MG TABLET PO (07:41)
[2024-03-18] MEDS: Aspirin Enteric Coated 81 MG TABLET.DR PO (07:41)
[2024-03-18] MEDS: Sodium Bicarbonate 650 MG TABLET 1300 MG PO (07:41)
[2024-03-18 07:42] VITALS: BP 134/73; PULSE 95; RESP 18; TEMP 36; O2SAT 97
[2024-03-18 07:47] LABS: INTERNATIONAL NORM RATIO 2.4 (0.9-1.1)
[2024-03-18 08:01] LABS: Anion Gap 15 (12-20); Blood Urea Nitrogen 40 mg/dL (9-16); Calcium 8.6 mg/dL (8.4-10.2); Chloride 112 mmol/L (96-108); Estimated Glomerular Filt Rate 33; Glucose Random 197 mg/dL (60-115); Sodium 139 mmol/L (135-145)
[2024-03-18 08:08] LABS: Carbon Dioxide 16 mmol/L (22-29)
[2024-03-18 11:50] LABS: Glucose, Whole Blood 182 mg/dL (60-115)
--- NOTE | 2024-03-18 11:52 | HO.PM.IMPN ---
Subjective Subjective Date of Service: 03/18/24 Interval History: seen and evaluated this morning Feels better overall Cr improved to baseline Wrist pain improved significantly Review of Systems Review of Systems: Yes all other systems are reviewed and are negative Physical Exam Vital Signs: Vital Signs: Last Vital Signs Temp 96.8 F 03/18/24 07:42 Pulse 95 03/18/24 07:42 Resp 18 03/18/24 07:42 BP 134/73 03/18/24 07:42 Pulse Ox 97 03/18/24 07:42 O2 Del Method Room Air 03/18/24 07:42 BMI result Body Mass Index 34.2 Const: Other: Constitutional : interactive, not in distress Cardiovascular : no JVP, no lower extremity edema Respiratory : bilateral chest movement, not in resp distress Gastrointestinal: soft, lax, Non tender Skin : Warm, Dry Skeletal: Left wrist less swollen and has more ROM Neurological : Alert & oriented , No focal deficit Objective Data Active Medications Acetaminophen (Acetaminophen 325 Mg Tablet) 650 mg PO Q6H PRN PRN Reason: Headache Last Admin: 03/16/24 13:37 Dose: 650 mg Documented By: CARLIE Acetaminophen (Acetaminophen 325 Mg Tablet) 975 mg PO QSHIFT [facility] Last Admin: 03/18/24 07:41 Dose: 975 mg Documented By: XAVIER Amlodipine Besylate (Amlodipine Besylate 5 Mg Tablet) 5 mg PO DAILY [facility]; Protocol Last Admin: 03/18/24 07:41 Dose: 5 mg Documented By: XAVIER Aspirin (Aspirin Enteric Coated 81 Mg Tablet.) 81 mg PO DAILY [facility] Last Admin: 03/18/24 07:41 Dose: 81 mg Documented By: XAVIER Atorvastatin Calcium (Atorvastatin Calcium 10 Mg Tablet) 10 mg PO BEDTIME [facility] Last Admin: 03/17/24 21:25 Dose: 10 mg Documented By: NAY Calcium Carbonate (Calcium Carbonate 750 Mg Tab.Chew) 750 mg PO Q6H PRN PRN Reason: Heartburn Empagliflozin (Empagliflozin 10 Mg Tablet) 10 mg PO DAILY [facility] Last Admin: 03/18/24 07:41 Dose: 10 mg Documented By: XAVIER Glucose (Glucose Gel 15 Gm Gel..Gram.) 15 gm PO Q15M PRN; Protocol PRN Reason: per Hypoglycemia Standing Ord. Dextrose (D10) 250 mls @ 750 mls/hr IV Q15M PRN; Protocol PRN Reason: per Hypoglycemia Standing Ord. Sodium Chloride (Ns) 1,000 mls @ 80 mls/hr IVCONT .[id number] [facility] Last Admin: 03/18/24 03:44 Dose: 80 mls/hr Documented By: HOME Insulin Glargine (Insulin Glargine,Hum.Rec.Anlog 100 Unit/Ml 10 Ml Vial) 25 unit SUBCUT BEDTIME [facility] Last Admin: 03/17/24 21:26 Dose: 25 unit Documented By: NAY Insulin Human Lispro (Insulin Lispro 100 Unit/Ml 3 Ml Vial) 0 unit SUBCUT QIDACHS [facility]; Protocol Last Admin: 03/18/24 07:40 Dose: 2 unit Documented By: XAVIER Levothyroxine Sodium (Levothyroxine Sodium 25 Mcg Tablet) 25 mcg PO DAILY@0600 [facility] Last Admin: 03/18/24 05:47 Dose: 25 mcg Documented By: HOME Magnesium Hydroxide (Milk Of Magnesia 30 Ml Oral.Susp) 30 ml PO DAILY PRN PRN Reason: Constipation Last Admin: 03/15/24 17:09 Dose: 30 ml Documented By: DARIANA Melatonin (Melatonin 3 Mg Tablet) 6 mg PO BEDTIME PRN PRN Reason: Insomnia Last Admin: 03/16/24 21:56 Dose: 6 mg Documented By: ADELAIDE Metoprolol Succinate (Metoprolol Succinate Er 100 Mg Tab.Er.24h) 200 mg PO DAILY [facility]; Protocol Last Admin: 03/18/24 07:40 Dose: 200 mg Documented By: XAVIER Multivitamins/Vitamin C (Multivitamin Tablet) 1 tab PO DAILY [facility] Last Admin: 03/18/24 07:41 Dose: 1 tab Documented By: XAVIER Oxycodone HCl (Oxycodone Hcl Immed Release 5 Mg Tablet) 2.5 mg PO Q6H PRN PRN Reason: Pain, Severe (Pain Scale 7-10) Last Admin: 03/18/24 07:40 Dose: 2.5 mg Documented By: XAVIER Polyethylene Glycol (Polyethylene Glycol 3350 17 Gm Powd.Pack) 17 gm PO DAILY PRN PRN Reason: Constipation Prednisone (Prednisone 20 Mg Tablet) 40 mg PO DAILY [facility] Last Admin: 03/18/24 07:41 Dose: 40 mg Documented By: XAVIER Sodium Bicarbonate (Sodium Bicarbonate 650 Mg Tablet) 1,300 mg PO BID [facility] Last Admin: 03/18/24 07:41 Dose: 1,300 mg Documented By: XAVIER Sodium Chloride (0.9 % Sodium Chloride Flush 3 Ml Syringe) 3 ml IVFLUSH QSHIFT [facility] Last Admin: 03/18/24 07:06 Dose: Not Given Documented By: ARSENIO Non-Admin Reason: IV Running Warfarin Sodium (Warfarin Sodium 1 Mg Tablet) 1 mg PO DAILY@1800 [facility] Last Admin: 03/17/24 17:12 Dose: 1 mg Documented By: EDITH Labs 03/17/24 04:28 03/18/24 07:20 Labs: Laboratory Results - last 24 hr 03/16/24 03/17/24 03/17/24 10:28 16:23 20:44 PT INR Anion Gap Estim Creat Clear Calc Estimated GFR POC Glucose 290 H 334 H Random Glucose Calcium Abnorm Protein Band 1 TNP Abnorm Protein Band 2 TNP Abnorm Protein Band 3 TNP 03/18/24 03/18/24 03/18/24 07:20 07:34 07:37 PT 29.0 H INR 2.4 H Anion Gap 15 Estim Creat Clear Calc 30.0 Estimated GFR 33 POC Glucose 188 H Random Glucose 197 H Calcium 8.6 Abnorm Protein Band 1 Abnorm Protein Band 2 Abnorm Protein Band 3 03/18/24 11:41 PT INR Anion Gap Estim Creat Clear Calc Estimated GFR POC Glucose 182 H Random Glucose Calcium Abnorm Protein Band 1 Abnorm Protein Band 2 Abnorm Protein Band 3 Microbiology Microbiology Results: Microbiology 03/15/24 00:10 Urine Culture - Final Urine clean catch - Urine pires top Assessment and Plan (1) Acute UTI: Status: Acute (2) Acute gout of wrist: Status: Acute (3) DOROTHY (acute kidney injury): Status: Acute Plan 83F PMH chronic systolic chf (EF 45-50%, , MR), chronic afib on coumadin, CKD III, DM, hypothryoid, htn, neurogenic bladder with suprapubic catheter presented with left wrist pain, found to have dorothy on ckd III DOROTHY on CKD III complicated with metabolic aciosis likely 2/2 ATN Cr back to baseline around 1.5 C3/C4- pending, high urine protein Hold valsartan, Lasix Continue gentle hydration decrease sodium Bicarb to 650 bid nephrology following: electropheresis, CA follow BMP Left wrist pain and swelling 2/2 Likely acute inflammatory arthritis in background severe osteoarthritis Prednisone 40 mg daily Oxycodone PRN ATC Paracetamol PT/OT Bacteriuria and pyuria inpatient with chronic suprapubic catheter due to neurogenic bladder 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 hold off on further antibiotics for now, monitor for symptoms Urology input appreciated, Change suprapubic tube every 3 weeks Diabetes Basal bolus insulin Chronic atrial fibrillation Toprol, Coumadin Monitor INR Chronic systolic CHF Continue Toprol, valsartan and Lasix on hold for DOROTHY Hypothyroid Synthroid Hypertension Continue amlodipine, metoprolol DVT prophylaxis-on Coumadin Full code Patient will need overnight hospital stay for significant increasing creatinine from baseline, requiring IV fluids, close monitoring, expert follow up pending safe discharge plan Quality Stroke Does the patient have a stroke diagnosis?: No VTE Prior VTE?: No VTE Risk Level:: Medical - moderate - high VTE Device Contraindication: Treatment Not Indicated VTE Drug Contraindication: N/A - Med Ordered
--- NOTE | 2024-03-18 13:08 | MHC.CM.PN ---
IMM 03/18/24 Per MD patient ready for discharge tomorrow. PT otis recommends STR. STR preferences obtained, and referrals have been sent. The patient has accepted a bed offer from [facility]. The facility has started the insurance authorization process. Discharge is anticipated tomorrow, via BLS
[2024-03-18 15:10] VITALS: BP 135/73; PULSE 97; RESP 12; TEMP 36.1; O2SAT 97
--- NOTE | 2024-03-18 15:25 | PM.PNNEP ---
Subjective Subjective Date of Service: 03/18/24 Interval history: seen and evaluated this morning ; Feels better overall; Cr improved to baseline; Wrist pain improved significantly Physical Exam Vital Signs: Vital Signs: Last Vital Signs Temp 97.0 F 03/18/24 15:10 Pulse 97 03/18/24 15:10 Resp 12 03/18/24 15:10 BP 135/73 03/18/24 15:10 Pulse Ox 97 03/18/24 15:10 O2 Del Method Room Air 03/18/24 15:10 BMI result Body Mass Index 34.2 Const: General: no acute distress Eyes: EOM: EOMs intact bilaterally Neck: Neck: Yes supple Resp: Auscultation: diminished lung sounds Cardio: Rate: regular rate GI: Palpation (GI): Soft to palpation Neuro: General: moves all extremities Objective Data Labs 03/17/24 04:28 03/18/24 07:20 Labs: Laboratory Results - last 24 hr 03/16/24 03/17/24 03/17/24 10:28 16:23 20:44 PT INR Sodium Potassium Chloride Carbon Dioxide Anion Gap BUN Creatinine Estim Creat Clear Calc Estimated GFR POC Glucose 290 H 334 H Random Glucose Calcium Abnorm Protein Band 1 TNP Abnorm Protein Band 2 TNP Abnorm Protein Band 3 TNP 03/18/24 03/18/24 03/18/24 07:20 07:34 07:37 PT 29.0 H INR 2.4 H Sodium 139 Potassium 4.0 Chloride 112 H Carbon Dioxide 16 L Anion Gap 15 BUN 40 H Creatinine 1.49 H Estim Creat Clear Calc 30.0 Estimated GFR 33 POC Glucose 188 H Random Glucose 197 H Calcium 8.6 Abnorm Protein Band 1 Abnorm Protein Band 2 Abnorm Protein Band 3 03/18/24 11:41 PT INR Sodium Potassium Chloride Carbon Dioxide Anion Gap BUN Creatinine Estim Creat Clear Calc Estimated GFR POC Glucose 182 H Random Glucose Calcium Abnorm Protein Band 1 Abnorm Protein Band 2 Abnorm Protein Band 3 Microbiology Microbiology Results: Microbiology 03/15/24 00:10 Urine clean catch - Urine pires top Urine Culture - Final 03/14/24 22:03 Blood - Venous Blood Culture - Preliminary No growth after 48 hours. 03/14/24 22:03 Blood - Venous Blood Culture - Preliminary No growth after 48 hours. Procedures Date of Service Date of Service: 03/18/24 Assessment & Plan Assessment and plan (1) ROMEO (acute kidney injury): Status: Acute Plan Romeo due to tubular injury-resolved Serum creatinine back to baseline No ACEI/ARB/NSAID's for now C/W rest of current supportive mgt We will need oral sodium bicarbonate if acidosis persists Needs close office follow-up with [facility] after hospital discharge Progress Note: Quality Stroke Does the patient have a stroke diagnosis?: No
[2024-03-18 16:15] LABS: Glucose, Whole Blood 308 mg/dL (60-115)
[2024-03-18] MEDS: 0.9 % Sodium Chloride Flush 3 ML SYRINGE IVFLUSH ×2 (16:44→20:43)
[2024-03-18] MEDS: Warfarin Sodium 1 MG TABLET PO (17:35)
[2024-03-18 19:22] VITALS: BP 142/71; PULSE 99; RESP 14; TEMP 36.2; O2SAT 98
[2024-03-18 20:23] LABS: Glucose, Whole Blood 366 mg/dL (60-115)
[2024-03-18] MEDS: Atorvastatin Calcium 10 MG TABLET PO (20:39)
[2024-03-18] MEDS: Sodium Bicarbonate 650 MG TABLET PO (20:39)
[2024-03-18] MEDS: Insulin Glargine,Hum.rec.anlog 100 UNIT/ML 10 ML VIAL 25 UNIT SUBCUT (20:41)
[2024-03-19 03:03] VITALS: BP 126/72; PULSE 97; RESP 16; TEMP 36.1; O2SAT 95
[2024-03-19] MEDS: Levothyroxine Sodium 25 MCG TABLET PO (06:07)
[2024-03-19 06:22] LABS: INTERNATIONAL NORM RATIO 2.4 (0.9-1.1); Prothrombin Time 29.5 SEC (11.1-13.3)
[2024-03-19 07:31] LABS: Glucose, Whole Blood 129 mg/dL (60-115)
[2024-03-19 07:43] VITALS: BP 165/72; PULSE 83; RESP 16; TEMP 36.2; O2SAT 98
[2024-03-19] MEDS: Aspirin Enteric Coated 81 MG TABLET.DR PO (08:31)
[2024-03-19 08:32] VITALS: BP 165/72; PULSE 83
[2024-03-19] MEDS: Acetaminophen 325 MG TABLET 975 MG PO (08:32)
[2024-03-19] MEDS: Metoprolol Succinate ER 100 MG TAB.ER.24H 200 MG PO (08:32)
[2024-03-19] MEDS: predniSONE 20 MG TABLET 40 MG PO (08:32)
[2024-03-19] MEDS: Multivitamin TABLET 1 TAB PO (08:32)
[2024-03-19 08:33] VITALS: BP 165/72
[2024-03-19] MEDS: 0.9 % Sodium Chloride Flush 3 ML SYRINGE IVFLUSH (08:33)
[2024-03-19] MEDS: Sodium Bicarbonate 650 MG TABLET PO (08:33)
[2024-03-19] MEDS: Empagliflozin 10 MG TABLET PO (08:33)
[2024-03-19] MEDS: amLODIPine Besylate 5 MG TABLET PO (08:33)
[2024-03-19] MEDS: oxyCODONE HCl Immed Release 5 MG TABLET 2.5 MG PO (08:36)
[2024-03-19 11:17] LABS: Glucose, Whole Blood 222 mg/dL (60-115)
--- NOTE | 2024-03-19 11:42 | MHC.CM.PN ---
Addendum entered by Kayla Cedeño 03/19/24 12:09: [facility] UNAVAILABLE BEFORE 1430 HOURS PT,SNF, RN AWARE Original Note: CM MET WITH PT TO DISCUSS DC SHE IS AWARE SHE WILL DC TO [facility] AT 1300 HOURS VIA [facility] PT REPORTS SHE WILL BE CALLING HER DAUGHTER TO PROVIDE UPDATES BEFORE DC
[2024-03-19] MEDS: Insulin Lispro 100 UNIT/ML 3 ML VIAL SUBCUT (11:43)
--- NOTE | 2024-03-19 11:50 | PM.DS ---
DS: Providers Provider Date of Service: 03/19/24 Date of admission: 03/15/24 08:01 Primary care physician: Nano Delaney MD Consults: 03/15/24 08:00 Consult to Nephrology Routine Consulting Provider: [facility] [place] Reason for consultation: dorothy on ckd 3 03/15/24 10:14 Consult to Urology Routine Consulting Provider: Keith Sharma Reason for consultation: suprapubic catheter exchange 03/19/24 09:52 Consult to Wound Care Routine Reason for consultation: redness to buttocks DS: Diagnosis Discharge Diagnosis (1) DOROTHY (acute kidney injury): Status: Acute (2) Wrist pain, left: Status: Acute DS: Summary Hospital Course Hospital Course: Admission note HPI 83F PMH chronic systolic chf (EF 45-50%, , MR), chronic afib on coumadin, CKD III, DM, hypothryoid, htn, neurogenic bladder with suprapubic catheter presented with left wrist pain. Patient reports pain started on morning day of presentation. Noticed at some point in the morning that left wrist was swollen and very tender, reduced range of motion. Patient denies taking anything for pain. Denies any trauma history. Denies any previous episodes. No fever or chills. Came to ED, x-ray with severe degenerative changes but no trauma. Noted to have elevated creatinine of 2.48, increased from 1.25 in January 2024. Hospital course The patient was admitted for treatment of DOROTHY on CKD III complicated with metabolic aciosis likely a result of ATN as creatinine improved back to baseline around 1.5 from 2.5 at time of admission as both valsartan, Lasix were held, treated with IV fluids and addition of sodium Bicarbonate 650 bid for acidosis with fair response. nephrology followed the patient during hospital stay and will continue to monitor as outpatient. Decrease Valsartan to 20 mg daily. Decrease Lasix to 20 mg daily. To follow BMP as outpatient. She was also evaluated for Left wrist pain and swelling Likely acute inflammatory arthritis in background severe osteoarthritis that responded fairly ok to Prednisone 40 mg daily and Oxycodone PRN with ATC Paracetamol. She was evaluated by PT/OT who recommended short term rehab. To finish tapering dose steroid and follow with orthopedics as outaptient for possible injections to the joints. She was noted to have Bacteriuria and pyuria inpatient with chronic suprapubic catheter due to neurogenic bladder which is 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. held off on antibiotics as no signs of infection, monitored for symptoms. Evaluated by Urology who recommended to Change suprapubic tube every 3 weeks Discharge plan Restart Valsartan 20 mg daily Restart Lasix 20 mg daily Monitor blood pressure and weight as outpatient repeat kidney function next week Bicarbonate twice daily Follow with associate professor of medicine as outpatient Continue Prednisone tapering dose Time Attestation Discharge Coordination Time (in mins): 35 Quality: Safe Use of Opioids Does Pt have an Active Cancer Diagnosis on the Problem List?: No Quality: Stroke Does the patient have a stroke diagnosis?: No Physical Exam Vital Signs: Vital Signs: Last Vital Signs Temp 97.1 F 03/19/24 07:43 Pulse 83 03/19/24 08:32 Resp 16 03/19/24 07:43 BP 165/72 H 03/19/24 08:33 Pulse Ox 98 03/19/24 07:43 O2 Del Method Room Air 03/19/24 07:43 BMI result Body Mass Index 34.2 Const: Other: Constitutional : interactive, not in distress Cardiovascular : no JVP, no lower extremity edema Respiratory : bilateral chest movement, not in resp distress Gastrointestinal: soft, lax, Non tender Skin : Warm, Dry, Suprapubic cath in place Skeletal: Left wrist less swollen and has more ROM Neurological : Alert & oriented , No focal deficit DS: Data Data Completed and Pending Completed studies during hospitalization [Text1]: Procedures Extirpation of Matter from Bladder, Via Natural or Artificial Opening Endoscopic (06/27/22) Fluoroscopy of Kidneys, Ureters and Bladder (06/27/22) Replacement of Right Hip Joint with Synthetic Substitute, Uncemented, Open Approach (07/07/23) Labs on day of discharge: Laboratory Results - last 24 hr 03/18/24 03/18/24 03/18/24 11:41 16:07 20:17 Hold Purple Top PT INR POC Glucose 182 H 308 H 366 H* 03/19/24 03/19/24 03/19/24 06:04 07:21 11:04 Hold Purple Top SEE NOTE PT 29.5 H INR 2.4 H POC Glucose 129 H 222 H Preliminary micro results at discharge 03/14/24 22:03 Blood Culture - Preliminary Blood - Venous No growth after 48 hours. 03/14/24 22:03 Blood Culture - Preliminary Blood - Venous No growth after 48 hours. Imaging Chest x-ray: Radiologist's impression: ITS Impressions Elbow X-Ray 03/14/24 22:36 IMPRESSION: Degenerative changes in the elbow and wrist without evidence of an acute osseous injury. Wrist X-Ray 03/14/24 22:36 IMPRESSION: Degenerative changes in the elbow and wrist without evidence of an acute osseous injury. Abdomen/Pelvis CT 03/15/24 01:20 IMPRESSION: 1. There is air within the uterine cavity of uncertain etiology. 2. There is mild urinary bladder wall thickening. Suprapubic catheter in place. 3. Diverticulosis without diverticulitis. Fleischner guidelines were followed. Discharge Plan Discharge Anticipated Discharge Date/Time: 03/19/24 11:40 Patient Disposition: [facility] Discharge Diagnosis: acute kidney injury Referrals: [facility] [Outside] Nano Delaney MD [Primary Care Provider] - 1 Week Discharge Medications: New sodium bicarbonate 650 mg Tablet 650 mg PO BID Qty: 60 0RF prednisone 10 mg tablet See Taper PO DIRECTED Qty: 30 0RF Taper: Prednisone 40 mg daily for 3 Days and 0 Hour 30 mg daily for 3 Days and 0 Hour 20 mg daily for 3 Days and 0 Hour 10 mg daily for 3 Days and 0 Hour Rx Instructions: see taper instructions Continued atorvastatin 10 mg tablet 10 mg PO BEDTIME Qty: 90 3RF melatonin 5 mg tablet 10 mg PO BEDTIME PRN (Reason: Sleep) metoprolol succinate 200 mg tablet extended release 24 hr 200 mg PO DAILY Qty: 90 3RF PreserVision AREDS 2,148 mcg-113 mg-45 mg-17.4mg Tablet 1 tab PO BIDWM Rx Instructions: administer with AM and PM meals warfarin 1 mg Tablet 1 mg PO DAILY Protocol: Dose Management Condition: Thursday (Week One) Dose/Route: 1 mg Instruction: 1 x 1 mg tablet Condition: Thursday Dose/Route: 2 mg Instruction: 2 x 1 mg tablets Condition: Thursday Dose/Route: 1 mg Instruction: 1 x 1 mg tablet Condition: Thursday Dose/Route: 1 mg Instruction: 1 x 1 mg tablet Condition: Dose/Route: 1 mg Instruction: 1 x 1 mg tablet Condition: Thursday Dose/Route: 1 mg Instruction: 1 x 1 mg tablet Condition: Thursday Dose/Route: 1 mg Instruction: 1 x 1 mg tablet Condition: Thursday (Week Two) Dose/Route: 1 mg Instruction: 1 x 1 mg tablet Condition: Thursday Dose/Route: 2 mg Instruction: 2 x 1 mg tablets Condition: Thursday Dose/Route: 1 mg Instruction: 1 x 1 mg tablet Condition: Thursday Dose/Route: 1 mg Instruction: 1 x 1 mg tablet Condition: Dose/Route: 1 mg Instruction: 1 x 1 mg tablet Condition: Thursday Dose/Route: 1 mg Instruction: 1 x 1 mg tablet Condition: Thursday Dose/Route: 1 mg Instruction: 1 x 1 mg tablet Protocol Text: Adjustment Start Date: Thursday03/09/24 INR Value: 2.7 INR Date: 03/09/24 Recheck Date: 03/16/24 benzonatate 100 mg Capsule 100 mg PO TID Qty: 20 0RF insulin glargine [Lantus U-100 Insulin] 100 unit/mL solution 25 unit subcut BEDTIME Qty: 10 0RF insulin aspart U-100 100 unit/mL Solution See Protocol subcut QIDACHS Protocol: Insulin Correction Scale Less than or equal to 110 ---- Give (units): 0 111 to 150 Give (units): 0 151 to 200 Give (units): 2 201 to 250 Give (units): 4 251 to 300 Give (units): 6 301 to 350 Give (units): 8 Greater than 350 Give (units): 10 Call MD if Blood Glucose > : 350 furosemide [Lasix] 40 mg tablet 20 mg PO DAILY Qty: 90 0RF Jardiance 10 mg Tablet 10 mg PO DAILY Qty: 30 0RF levothyroxine 25 mcg tablet 25 mcg PO DAILY aspirin 81 mg tablet,delayed release (DR/EC) 81 mg PO DAILY (DME) pen needle, diabetic [BD Cathy 2nd Gen Pen Needle] 32 gauge x 5/32 needle See Rx Instructions subcut DAILY Qty: 50 Rx Instructions: As directed (DME) lancets [FreeStyle Lancets] 28 gauge misc See Rx Instructions .ROUTE BID Qty: 100 Rx Instructions: As directed multivitamin [One Daily Multivitamin] Tablet 1 tab PO DAILY amlodipine 5 mg tablet 5 mg PO DAILY Myrbetriq 25 mg tablet extended release 24 hr 25 mg PO DAILY 30 Days Qty: 30 1RF Changed valsartan 40 mg Tablet 20 mg PO DAILY Qty: 90 0RF Discharge Orders: Discharge Order (Routine); Ordered 03/19/24 Ordered By: Sabine Szymanski Diet: Low salt diet Activity on Discharge: As tolerated Stand Alone Forms: Patient Portal Discharge page Print Language: Yi Care Plan Goals: Read below Health Concerns: Read below Plan of Treatment: Read below Assessment: Restart Valsartan 20 mg daily Restart Lasix 20 mg daily Monitor blood pressure and weight as outpatient repeat kidney function next week Bicarbonate twice daily Follow with associate professor of medicine as outpatient Continue Prednisone tapering dose
--- NOTE | 2024-03-21 11:54 | P.CDIM_ITS ---
PROVIDER RESPONSE TEXT: To clarify, the appropriate diagnosis supported by the clinical indicators: Acute on chronic QUERY TEXT: PHYSICIAN'S DOCUMENTATION REQUEST Date of Query: 03/18/2024 11:01 AM EDT Patient Name: Belen Brady I Admit Date: 03/15/2024 Dear Sabine Szymanski, A review of the medical record indicates additional documentation may be needed. Please review below and update the documentation accordingly. Clinical Indicators: Per Hospitalist Progress note 03/17/24: DOROTHY on CKD III complicated with metabolic acidosis likely 2/2 ATN Clarify which of the following accurately represents the acuity of the Metabolic Acidosis. Possible options might include: Acute Acute on chronic Compensated Chronic stable condition Remission Other (explain) Clinically unable to determine (explain) Thank you, Nicki Way RN Use of terms such as suspected, likely, concern for, or probable (associated with a specific diagnosi s that is being evaluated, monitored, or treated as if it exists) are acceptable and can be coded in the inpatient se tting, when documented at the time of discharge. Please use your independent medical judgment in providing your response. THIS QUERY IS PART OF THE PERMANENT MEDICAL RECORD
[2024-03-23 08:54] LABS: Complement C3 166 mg/dL
== END 2024-03-19 16:00 | disposition skilled nursing facility (03) | DRG 683 ==
LOC: HO.ED 03-15 00:23 → HO.EDOVER 03-15 08:06 → HO.S3 03-17 08:24
PROVIDERS: Internal Medicine Hypertension Specialist; Internal Medicine Nephrology; Admitting Provider Internal Medicine; Emergency Provider Emergency Medicine; PCP Internal Medicine; Visit Provider Student in an Organized Health Care Education/Training Program
DX: N17.0 Acute kidney failure with tubular necrosis (principal); E87.21 Acute metabolic acidosis; E87.22 Chronic metabolic acidosis; I13.0 Hypertensive heart and chronic kidney disease with heart failure and stage 1 through stage 4 chronic kidney disease, or unspecified chronic kidney disease; I48.20 Chronic atrial fibrillation, unspecified; M10.9 Gout, unspecified; M19.032 Primary osteoarthritis, left wrist; N31.2 Flaccid neuropathic bladder, not elsewhere classified; I25.10 Atherosclerotic heart disease of native coronary artery without angina pectoris; Z96.0 Presence of urogenital implants; I08.0 Rheumatic disorders of both mitral and aortic valves; E11.22 Type 2 diabetes mellitus with diabetic chronic kidney disease; N18.30 Chronic kidney disease, stage 3 unspecified; E03.9 Hypothyroidism, unspecified; Z79.4 Long term (current) use of insulin; Z79.01 Long term (current) use of 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; Z79.82 Long term (current) use of aspirin; Z79.890 Hormone replacement therapy; Z79.899 Other long term (current) drug therapy
CPT/HCPCS: 36415; 73070; 73100; 74176; 80048; 80053; 81001; 82550; 82570; 82947; 83605; 84156; 84165; 84550; 85025; 85027; 85610; 86160; 87040; 87086; 93005; 97116; 97162; 97530; 99285; J0696

== ENCOUNTER → 2024-03-15 00:19 | Outpatient (BNV) | payer MEDICARE, SELFPAY | PROVIDERS: Admitting Provider Internal Medicine; Emergency Provider Emergency Medicine; PCP Internal Medicine; Visit Provider Internal Medicine Cardiovascular Disease | DX: R53.1 Weakness (principal) | CPT/HCPCS: 93010 ==

== ENCOUNTER → 2024-03-15 08:01 | Outpatient (BNV) | payer MEDICARE, SELFPAY | PROVIDERS: Admitting Provider Internal Medicine; Emergency Provider Emergency Medicine; PCP Internal Medicine; Visit Provider Urology | DX: N39.0 Urinary tract infection, site not specified (principal); N31.9 Neuromuscular dysfunction of bladder, unspecified | CPT/HCPCS: 99221 ==

== ENCOUNTER → 2024-03-15 08:01 | Outpatient (BNV) | payer MEDICARE, SELFPAY | PROVIDERS: Admitting Provider Internal Medicine; Emergency Provider Emergency Medicine; PCP Internal Medicine; Visit Provider Internal Medicine Hypertension Specialist | DX: N17.0 Acute kidney failure with tubular necrosis (principal) | CPT/HCPCS: 99223; 99232 ==

== ENCOUNTER → 2024-03-15 08:01 | Outpatient (BNV) | payer MEDICARE, SELFPAY | PROVIDERS: Admitting Provider Internal Medicine; Emergency Provider Emergency Medicine; Visit Provider Internal Medicine | DX: N39.0 Urinary tract infection, site not specified (principal); M10.9 Gout, unspecified; N17.9 Acute kidney failure, unspecified; N18.30 Chronic kidney disease, stage 3 unspecified | CPT/HCPCS: 99222; 99232; 99239 ==

== ENCOUNTER 2024-03-29 15:23 | Outpatient (AMB) | payer MEDICARE, SELFPAY ==
--- NOTE | 2024-03-29 15:38 | MHC.OFFVIS ---
Intake Visit Reasons: 6m/SPT Allergies No Known Allergies [No Known Allergies*] Allergy (Verified 06/17/24 10:57) HPI Comments Details: Belen is a very pleasant female. 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 Current therapy includes 02/18 SPT and botox 07/21 Botox 100mg 12/22 Botox, 07/22 Botox, 05/22 Botox Prior treatment(s) included anticholinergics- , Many years ago - bladder sling suspension for stress incontinence. Obstetric history , 2, Para, 2. The frequency of the symptom(s) occur several times a day. Associated medical conditions diabetes Yes insulin since 2015 Prior testing included 09/18 Cysto - NAD. Therapeutic plan - continue tube change [facility] Medical History Hydronephrosis determined by ultrasound Permanent atrial fibrillation DOROTHY (acute kidney injury) Atrial fibrillation Neuropathy Neurogenic bladder CVA (cerebral vascular accident) Shingles Elevated cholesterol Myocardial infarction MRSA infection Hip pain Leg wound, left Varicose vein of leg Osteoarthritis of right hip Current use of anticoagulant therapy Recurrent UTI Atrial fibrillation PAF (paroxysmal atrial fibrillation) Congestive heart failure Urinary incontinence Hypothyroidism Diabetes Hypertension CKD (chronic kidney disease) CAD (coronary artery disease) Hypotonic neurogenic bladder Surgical History History of left knee replacement History of right knee joint replacement H/O heart artery stent H/O nasal polypectomy History of tubal ligation History of tonsillectomy and adenoidectomy Hx of cholecystectomy Family History Father Hx of angina pectoris Myocardial infarction Mother Ovarian cancer Stomach cancer Maternal Grandfather Hardening of the arteries of the heart Social History Household Members: Unknown / Unable to assess Household Members Other:: daughter Housing: Unknown / Unable to assess Are you a primary child care education coordinator to a significant other at home: No Do you presently have visiting nurse or other home services: No Alcohol intake: never [place] [facility] [place] Tobacco Use Status: Never used Tobacco Second Hand Smoke Exposure: No Advance Directives Date on File: 08/27/22 service: No Current occupational status: retired Office Procedures Bladder/Catheter Procedure Details: 18 fr sp tube exchanged with new 18 fr david sp tube, 7.5 ml balloon with flip valve. Pt tolerated exchange well. 3 weeks next change 92272-Vmzifc of bladder tube Procedure code (CPT) selection complete Assessment & Plan Assessment & Plan (1) Suprapubic catheter: Code(s): Z93.59 - Other cystostomy status Category: Medical Plan Continue three-month catheter change Orders: Orders AMB Bladder/Catheter Procedure 03/29/24 Z93.59 - Other cystostomy status Patient Instructions: Imaging studies, laboratory and physical exam results were discussed and reviewed in detail. No major barriers to patient understanding were identified. An opportunity to ask questions regarding the treatment plan was provided. All questions were answered. The patient expressed understanding and agreement with the above treatment plan. The patient is aware they should contact our office by phone for worsening of their current condition or the appearance of new urologic symptoms. Compliance is encouraged with any medications and followup testing that is ordered. It is a privilege to participate in the urologic care of your patient. If you have any questions or concerns regarding treatment for the above conditions, or other urologic issues, please do not hesitate to contact me. The office telephone contact is [phone]. This note is constructed using voice recognition software. While every effort has been made to ensure accuracy fire extinguisher inspector errors may have been included. Yours sincerely, Dr Keith Sharma MD, [facility] - Urology Providers of Expert, Compassionate Care for the Genitourinary System Coding Level of Care Code Procedure Only Diagnoses Suprapubic catheter Z93.59 CPT Codes Bladder/Catheter Procedure - CPT: 20424-Oiljpx of bladder tube ([id number])
== END 2024-03-29 16:05 | disposition home or self-care (01) ==
LOC: HO.HUSH 15:23
PROVIDERS: PCP Internal Medicine; Visit Provider Urology
DX: N31.8 Other neuromuscular dysfunction of bladder (principal)
CPT/HCPCS: 51705; 99499

== ENCOUNTER → 2024-03-29 15:23 | Outpatient (BNVA) | payer MEDICARE, SELFPAY | PROVIDERS: PCP Internal Medicine; Visit Provider Urology | DX: N31.8 Other neuromuscular dysfunction of bladder (principal); Z43.5 Encounter for attention to cystostomy | CPT/HCPCS: 51705 ==

== ENCOUNTER → 2024-04-15 08:42 | Outpatient (BNVA) | payer MEDICARE, SELFPAY | PROVIDERS: PCP Internal Medicine; Visit Provider Internal Medicine ==

== ENCOUNTER 2024-04-20 13:40 | Outpatient (AMB) | payer MEDICARE, SELFPAY ==
--- NOTE | 2024-04-20 14:10 | MHC.OFFVIS ---
Intake Visit Reasons: 2m follow up Intake Note: Patient is Present for Follow Up spt change Urology Medication:Myrbetriq Antibiotic Allergies: None Blood Thinners: Aspirn Debt Counselor Required: No Allergies No Known Allergies [No Known Allergies*] Allergy (Verified 04/20/24 14:11) HPI Comments Details: Belen is a very pleasant female. 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 Current therapy includes 02/18 SPT and botox 07/21 Botox 100mg 12/22 Botox, 07/22 Botox, 05/22 Botox Prior treatment(s) included anticholinergics- , Many years ago - bladder sling suspension for stress incontinence. Obstetric history , 2, Para, 2. The frequency of the symptom(s) occur several times a day. Associated medical conditions diabetes Yes insulin since 2015 Prior testing included 09/18 Cysto - NAD. Therapeutic plan - continue tube change [facility] Medical History Hydronephrosis determined by ultrasound Permanent atrial fibrillation DOROTHY (acute kidney injury) Atrial fibrillation Neuropathy Neurogenic bladder CVA (cerebral vascular accident) Shingles Elevated cholesterol Myocardial infarction MRSA infection Hip pain Leg wound, left Varicose vein of leg Osteoarthritis of right hip Current use of anticoagulant therapy Recurrent UTI Atrial fibrillation PAF (paroxysmal atrial fibrillation) Congestive heart failure Urinary incontinence Hypothyroidism Diabetes Hypertension CKD (chronic kidney disease) CAD (coronary artery disease) Hypotonic neurogenic bladder Surgical History History of left knee replacement History of right knee joint replacement H/O heart artery stent H/O nasal polypectomy History of tubal ligation History of tonsillectomy and adenoidectomy Hx of cholecystectomy Family History Father Hx of angina pectoris Myocardial infarction Mother Ovarian cancer Stomach cancer Maternal Grandfather Hardening of the arteries of the heart Social History Household Members: Children Household Members Other:: daughter Housing: House Are you a primary home care attendant to a significant other at home: No Do you presently have visiting nurse or other home services: Yes (vna,meals on wheels , physical therapy) Alcohol intake: never [place] [facility] [place] Tobacco Use Status: Never used Tobacco Second Hand Smoke Exposure: No Advance Directives Date on File: 08/27/22 service: No Current occupational status: retired Review of Systems Const Denies chills and Denies fever(s) Card Reports no additional complaints and Denies syncope Resp Denies cough GI Denies abdominal pain and Denies heartburn Reports as per HPI and Denies change in libido Neuro Denies syncope Psych Denies change in libido Endo Denies change in libido Physical Exam Const General: cooperative, healthy appearing, comfortable and no acute distress Orientation/consciousness: patient oriented x3 HEENT Face and sinus: Yes normal facial exam Mouth: moist mucous membranes Neck Neck: Yes normal visual inspection, Yes full ROM and Yes trachea midline Chest Chest palpation & inspection: normal inspection of the chest Resp Effort & Inspection: normal respiratory effort, able to speak in complete sentences and no respiratory distress GI Inspection: Yes normal to inspection Back/Spine/Pelvis Cervical Spine: normal cervical lordosis Thoracic/Lumbar Spine: thoracic and lumbar spine normal to inspection Skin General skin exam: no rashes or lesions noted Neuro General: patient oriented x3, gait normal, tone normal and moves all extremities Extrem General: Yes normal to inspection and Yes capillary refill normal Office Procedures Bladder/Catheter Procedure Details: 18 fr sp tube exchanged with new 18 fr david sp tube, 7.5 ml balloon with flip valve. Pt tolerated exchange well. 3 weeks next change [id number]-Wmzsky of bladder tube Procedure code (CPT) selection complete Assessment & Plan Assessment & Plan (1) Diabetic neuropathy associated with diabetes mellitus due to underlying condition: Code(s): E08.40 - Diabetes mellitus due to underlying condition with diabetic neuropathy, unspecified Category: Medical (2) Suprapubic catheter: Code(s): Z93.59 - Other cystostomy status Category: Medical Plan Continue Q three-week suprapubic tube with nursing, six-month follow-up Orders: Orders AMB Bladder/Catheter Procedure Today Z93.59 - Other cystostomy status Patient Instructions: Imaging studies, laboratory and physical exam results were discussed and reviewed in detail. No major barriers to patient understanding were identified. An opportunity to ask questions regarding the treatment plan was provided. All questions were answered. The patient expressed understanding and agreement with the above treatment plan. The patient is aware they should contact our office by phone for worsening of their current condition or the appearance of new urologic symptoms. Compliance is encouraged with any medications and followup testing that is ordered. It is a privilege to participate in the urologic care of your patient. If you have any questions or concerns regarding treatment for the above conditions, or other urologic issues, please do not hesitate to contact me. The office telephone contact is [phone]. This note is constructed using voice recognition software. While every effort has been made to ensure accuracy public welfare worker errors may have been included. Yours sincerely, Dr Keith Sharma MD, [facility] - Urology Providers of Expert, Compassionate Care for the Genitourinary System Coding Level of Care Code Est Pt Level 3 (19820) Diagnoses Diabetic neuropathy associated with diabetes mellitus due to underlying condition E08.40 Suprapubic catheter Z93.59 CPT Codes Bladder/Catheter Procedure - CPT: 89811-Duwcmj of bladder tube ([id number])
== END 2024-04-20 14:45 | disposition home or self-care (01) ==
PROVIDERS: PCP Internal Medicine; Visit Provider Urology
DX: N31.9 Neuromuscular dysfunction of bladder, unspecified (principal); Z93.59 Other cystostomy status
CPT/HCPCS: 51705; 99213

== ENCOUNTER → 2024-04-20 13:40 | Outpatient (BNVA) | payer MEDICARE, SELFPAY | PROVIDERS: PCP Internal Medicine; Visit Provider Urology | DX: Z93.59 Other cystostomy status (principal); E08.40 Diabetes mellitus due to underlying condition with diabetic neuropathy, unspecified | CPT/HCPCS: 51705; 99212 ==

== ENCOUNTER → 2024-04-21 13:33 | Outpatient (BNVA) | payer MEDICARE, SELFPAY | PROVIDERS: PCP Internal Medicine; Visit Provider Internal Medicine ==

== ENCOUNTER → 2024-04-28 11:55 | Outpatient (BNVA) | payer MEDICARE, SELFPAY | PROVIDERS: PCP Internal Medicine; Visit Provider Internal Medicine ==

== ENCOUNTER 2024-05-02 12:53 | Outpatient (REF) | payer MEDICARE, SELFPAY ==
[2024-05-02 13:12] LABS: MANUAL DIFF FLAG NO
[2024-05-02 13:54] LABS: Basophils Absolute Auto 0.1 X10*3/uL (0.0-0.2); Basophils Percent Auto 0.7 % (0-2); Eosinophils Absolute Auto 0.2 X10*3/uL (0.0-0.4); Eosinophils Percent Auto 1.7 % (0-4); Hemoglobin 13.5 g/dl (12.0-16.0); Imm Gran Abs Auto 0.08 X10*3/uL (0.00-0.03); Imm Gran Pct Auto 0.9 % (0.0-0.4); Lymphocytes Percent Auto 22.1 % (20-40); Mean Corpuscular HGB Conc 31.4 g/dl (31.0-35.0); Mean Corpuscular Hemoglobin 28.5 pg (27.0-33.0); Mean Corpuscular Volume 90.9 fL (80.0-98.0); Mean Platelet Volume 8.9 fL (9.4-12.3); Monocytes Percent Auto 11.8 % (2-11); Neutrophils Absolute Auto 5.6 x10*3/uL (2.0-8.3); Neutrophils Percent Auto 62.8 % (45-73); Platelet Count 323 X10*3/uL (160-400); Red Blood Count 4.73 X10*6/uL (4.20-5.50); Red Cell Distribution Width 16.6 % (11.0-16.0); White Blood Count 8.8 X10*3/uL (4.8-10.8)
[2024-05-02 14:05] LABS: Estimated Average Glucose 166 mg/dL; Hemoglobin A1c % 7.4 % (<6.0)
[2024-05-02 14:27] LABS: Alanine Aminotransferase 14 U/L (0-31); Albumin Level 3.6 g/dL (3.5-5.0); Alkaline Phosphatase 112 U/L (39-117); Anion Gap 13 (12-20); Aspartate Amino Transferase 19 U/L (5-31); Bilirubin Total 0.4 mg/dL (0.0-1.0); Blood Urea Nitrogen 44 mg/dL (9-16); Calcium 9.3 mg/dL (8.4-10.2); Carbon Dioxide 28 mmol/L (22-29); Chloride 104 mmol/L (96-108); Cholesterol 124 mg/dL (<200); Estimated Glomerular Filt Rate 24; Glucose Random 238 mg/dL (60-115); HDL Cholesterol 36 mg/dL (>40); LDL Cholesterol Calculated 64 mg/dL (<100); Potassium 4.1 mmol/L (3.3-5.1); Sodium 141 mmol/L (135-145); Total Protein 8.1 g/dL (6.5-8.0); Triglycerides 121 mg/dL (<150)
[2024-05-02 14:39] LABS: Vitamin D 25-OH Total 30.5 ng/mL (>30)
[2024-05-02 14:45] LABS: Vitamin B12 699 pg/mL (200-900)
[2024-05-03 12:36] LABS: Creatinine Urine 44.99 mg/dL; Microalbum/Creatinine Ratio Ur 995.7 ug/mg cr (<30)
== END 2024-05-02 12:54 | disposition home or self-care (01) ==
LOC: HO.LAB 12:53
PROVIDERS: PCP Internal Medicine; Visit Provider Internal Medicine
DX: E11.40 Type 2 diabetes mellitus with diabetic neuropathy, unspecified (principal); E78.00 Pure hypercholesterolemia, unspecified; I25.119 Atherosclerotic heart disease of native coronary artery with unspecified angina pectoris; I50.32 Chronic diastolic (congestive) heart failure
CPT/HCPCS: 36415; 80053; 80061; 82043; 82306; 82570; 82607; 83036; 85025

== ENCOUNTER → 2024-05-03 13:13 | Outpatient (BNVA) | payer MEDICARE, SELFPAY | PROVIDERS: PCP Internal Medicine; Visit Provider Internal Medicine ==

== ENCOUNTER → 2024-05-12 10:50 | Outpatient (BNVA) | payer MEDICARE, SELFPAY | PROVIDERS: PCP Internal Medicine; Visit Provider Internal Medicine ==

== ENCOUNTER → 2024-05-19 11:33 | Outpatient (BNVA) | payer MEDICARE, SELFPAY | PROVIDERS: PCP Internal Medicine; Visit Provider Internal Medicine ==

== ENCOUNTER → 2024-05-26 12:05 | Outpatient (BNVA) | payer MEDICARE, SELFPAY | PROVIDERS: PCP Internal Medicine; Visit Provider Internal Medicine ==

== ENCOUNTER → 2024-06-03 11:32 | Outpatient (BNVA) | payer MEDICARE, SELFPAY | PROVIDERS: PCP Internal Medicine; Visit Provider Internal Medicine ==

== ENCOUNTER → 2024-06-07 13:39 | Outpatient (BNVA) | payer MEDICARE, SELFPAY | PROVIDERS: PCP Internal Medicine; Visit Provider Urology | DX: Z46.6 Encounter for fitting and adjustment of urinary device (principal); Z93.59 Other cystostomy status | CPT/HCPCS: 51705 ==

== ENCOUNTER → 2024-06-09 14:29 | Outpatient (BNVA) | payer MEDICARE, SELFPAY | PROVIDERS: PCP Internal Medicine; Visit Provider Internal Medicine ==

== ENCOUNTER → 2024-06-14 11:18 | Outpatient (BNVA) | payer MEDICARE, SELFPAY | PROVIDERS: PCP Internal Medicine; Visit Provider Internal Medicine ==

== ENCOUNTER 2024-06-17 10:41 | Inpatient (IN) | payer MEDICARE, SELFPAY ==
--- NOTE | ~2024-06-17 | XR_ITS ---
EXAMINATION: XR HAND, LEFT CLINICAL INFORMATION: Pain in the left hand, lateral site of the fifth digit. COMPARISON: Radiograph left wrist 03/14/2024. TECHNIQUE: PA, lateral, and oblique views of the left hand. FINDINGS: No acute fracture or dislocation. Decreased bone mineralization. Moderate to severe degenerative changes in the first carpometacarpal joint space with narrowing and subchondral sclerosis. Mild to moderate multifocal degenerative osteoarthritis in the interphalangeal joints with marginal osteophytes. No osseous erosions. Diffuse soft tissue swelling. Scattered vascular calcifications. XR/XR hand LT 2V IMPRESSION: 1. No acute fracture or dislocation. 2. Moderate to severe degenerative osteoarthritis of the first carpometacarpal joint. 3. Mild to moderate multifocal degenerative osteoarthritis in the interphalangeal joints. Electronically signed by: Rosamaria Low MD 06/23/2024 01:38 PM EDT
--- NOTE | ~2024-06-17 | US_ITS ---
EXAMINATION: US EXTRACRANIAL CAROTID DUPLEX, BILATERAL CLINICAL INFORMATION: Stroke COMPARISON: CTA from 07/08/2017 TECHNIQUE: Real-time ultrasound and Doppler techniques (integrating B-mode 2-D vascular images, Doppler spectral analysis and color-flow Doppler imaging) were utilized to interrogate the extracranial carotid arteries, the vertebral arteries and proximal subclavian arteries bilaterally. The degree of stenosis is determined by criteria similar to NASCET. FINDINGS: Right Side: 1. There is minimal atherosclerotic plaque seen in the bifurcation/proximal ICA region. 2. The common carotid artery PSV proximally is 51.3 cm/s and distally 42.7 cm/s. 3. The proximal internal carotid artery velocities are 43.8 cm/s systolic and 10.2 cm/s diastolic. 4. The proximal external carotid artery PSV is 84.5 cm/s. 5. The vertebral artery shows antegrade flow. 6. The subclavian artery waveforms are normal. Left Side: 1. There is mild atherosclerotic plaque seen in the bifurcation/proximal ICA region. 2. The common carotid artery PSV proximally is 42.3 cm/s and distally 37.6 cm/s. 3. The proximal internal carotid artery velocities are 24.6 cm/s systolic and 8.6 cm/s diastolic. 4. The proximal external carotid artery PSV is 49.8 cm/s. 5. The vertebral artery shows antegrade flow. 6. The subclavian artery waveforms are normal. US/US carotid duplex BI IMPRESSION: 1. RIGHT: Minimal, non-hemodynamically significant stenosis of the proximal right internal carotid artery corresponding to a 0-49% stenosis by velocity criteria. 2. LEFT: Minimal, non-hemodynamically significant stenosis of the proximal left internal carotid artery corresponding to a 0-49% stenosis by velocity criteria. 3. There is no change in the category severity of disease when compared to the previous study dated 07/08/2017.
--- NOTE | ~2024-06-17 | MR_ITS ---
EXAMINATION: MR BRAIN WITHOUT CONTRAST CLINICAL INFORMATION: Stuttering speech and weakness. COMPARISON: Head CT dated 06/17/2024. Brain MRI dated 07/07/2017. TECHNIQUE: Multiplanar, multisequence imaging of the brain was performed without contrast. FINDINGS: No diffusion abnormalities are identified to suggest an acute infarct. No mass effect or midline shift is seen. There is moderate to severe diffuse brain parenchymal volume loss with commensurate ex vacuo dilatation of the ventricles. Extensive chronic white matter microangiopathic changes are also present. There is a chronic infarct in the left parietal lobe with encephalomalacia and gliosis. No extra-axial fluid collections are seen. Small chronic lacunar infarct visible in the left paramedian lele. The cerebellum is normal. There is what may represent a small heavily calcified 7 mm meningioma versus osteoma along the left lateral dural reflection covering the superior sagittal sinus and overlying the left occipital lobe. The craniovertebral junction, marrow signal, and midline structures are normal. The major intracranial flow voids at the level of the [place] are preserved. The dural venous sinus flow voids are maintained. The mastoid air cells and paranasal sinuses are well aerated. Ankylosis and hypertrophic facet arthropathy visible at the C2-C3 level. MR/MR head/brain wo con IMPRESSION: No acute intracranial process. Diffuse brain parenchymal volume loss and extensive chronic white matter microangiopathy. Chronic left parietal lobe infarct.
--- NOTE | ~2024-06-17 | CT_ITS ---
EXAMINATION: CT head for stroke CLINICAL INFORMATION: Reason for Exam on coumadin confused R sided deficits COMPARISON: CT head without contrast 01/11/2024 TECHNIQUE: Contiguous axial imaging was performed from the skull base to vertex without intravenous contrast. Sagittal and coronal reformatted images were obtained. This CT examination was performed using dose optimization techniques as appropriate, variously including the following: * Automated exposure control * Adjustment of mA and/or kV according to patient size (this includes techniques or standardized protocols for targeted exams where dose is matched to indication/reason for exam; i.e. extremities or head) Use of iterative reconstruction technique DLP: 653 mGy-cm FINDINGS: No acute osseous or soft tissue abnormality. The mastoid air cells and visualized portions of the paranasal sinuses are well aerated. There is no evidence of acute intracranial hemorrhage or territorial infarction. No abnormal mass effect or midline shift is seen. Amaya to white matter differentiation is well preserved. No extra-axial fluid collections are identified. No hydrocephalus. Proportional prominence of the ventricles and sulcal spaces related to volume loss. Patchy and confluent periventricular and deep white matter hypoattenuation is consistent with moderate to severe small vessel ischemic changes. Chronic left parieto-occipital infarct. CT/CT head for stroke IMPRESSION: No acute intracranial abnormality including hemorrhage, mass effect, hydrocephalus, or acute territorial edematous infarction. . Above impression was communicated to Milka Turner MD on 06/17/2024 11:10 AM
--- NOTE | ~2024-06-17 | XR_ITS ---
EXAMINATION: XR CHEST CLINICAL INFORMATION: Weakness. COMPARISON: 01/19/2024 and 01/12/2024 TECHNIQUE: Frontal view of the chest was obtained. FINDINGS: The lungs are well expanded. No focal consolidation. No pleural effusion. Cardiac silhouette is unchanged. XR/XR chest 1V IMPRESSION: No acute abnormality.
--- NOTE | 2024-06-17 10:47 | ECG_ITS ---
Test Reason : STROKE Blood Pressure : / mmHG Vent. Rate : 093 BPM Atrial Rate : 000 BPM P-R Int : 000 ms QRS Dur : 082 ms QT Int : 380 ms P-R-T Axes : 000 082 083 degrees QTc Int : 472 ms Atrial fibrillation Nonspecific ST abnormality Abnormal ECG When compared with ECG of 15-MAR-2024 00:37, Nonspecific T wave abnormality no longer evident in Inferior leads Heart rate has decreased Referred By: Milka Turner Electronically Signed By:SUZETTE WILSON
[2024-06-17 10:48] VITALS: BP 118/55; BP 122/55; PULSE 88; PULSE 90; RESP 16; TEMP 36.6; O2SAT 100; O2SAT 98; BMI 32.0
[2024-06-17 10:52] LABS: Glucose, Whole Blood 128 mg/dL (60-115)
[2024-06-17 11:11] VITALS: BP 118/55; PULSE 88; RESP 16; TEMP 36.6; O2SAT 100
[2024-06-17 11:36] LABS: Basophils Absolute Auto 0.1 X10*3/uL (0.0-0.2); Basophils Percent Auto 0.6 % (0-2); Eosinophils Absolute Auto 0.1 X10*3/uL (0.0-0.4); Eosinophils Percent Auto 1.5 % (0-4); Hematocrit 39.3 % (37.0-47.0); Hemoglobin 12.9 g/dl (12.0-16.0); Imm Gran Abs Auto 0.05 X10*3/uL (0.00-0.03); Imm Gran Pct Auto 0.6 % (0.0-0.4); Lymphocytes Absolute Auto 1.2 X10*3/uL (1.2-4.9); Lymphocytes Percent Auto 15.2 % (20-40); MANUAL DIFF FLAG NO; Mean Corpuscular HGB Conc 32.8 g/dl (31.0-35.0); Mean Corpuscular Hemoglobin 28.9 pg (27.0-33.0); Mean Corpuscular Volume 88.1 fL (80.0-98.0); Mean Platelet Volume 9.1 fL (9.4-12.3); Monocytes Absolute Auto 1.5 X10*3/uL (0.1-1.2); Monocytes Percent Auto 18.4 % (2-11); Neutrophils Absolute Auto 5.2 x10*3/uL (2.0-8.3); Neutrophils Percent Auto 63.7 % (45-73); Platelet Count 237 X10*3/uL (160-400); Red Blood Count 4.46 X10*6/uL (4.20-5.50); Red Cell Distribution Width 15.5 % (11.0-16.0); White Blood Count 8.1 X10*3/uL (4.8-10.8)
[2024-06-17 11:41] LABS: INTERNATIONAL NORM RATIO 2.2 (0.9-1.1); Prothrombin Time 27.3 SEC (11.1-13.3)
[2024-06-17 11:58] LABS: B Type Natriuretic Peptide 476 pg/mL (<100)
--- NOTE | 2024-06-17 11:58 | ED_ITS ---
HPI - Neuro Symptoms/Deficit General Chief Complaint: Stroke Stated Complaint: R SIDED WEAKNESS SLURRED SPEECH Time Seen by Provider: 06/17/24 10:44 Source: patient, family, EMS and old records reviewed Mode of arrival: EMS Limitations: altered mental status History of Present Illness ED Provider: EMRE ARREOLA Narrative: 83 yo female with PMH of aortic stenosis, DM, MRSA, CAD, HTN, HLD, hypothyroidism, afib on coumadin here with c/o feeling unwell in bathroom today calling for daughter - daughter reported R sided weakness and difficulty speaking to EMS. Last known well to 10am today. Patient tells me her speech is off and she doesn't feel well no falls, fever, trauma. She denies having a bad day yesterday. Reports compliance with all medications. She denies CP/SOB. Onset (ago): hour(s) (10am last known well ) Last Observed Normal: 10:00 Timing confirmed by: family member Location: speech, right face and right arm History of same: No Severity: mild Quality: weak Relieving factors: none Exacerbating factors: none Context: gradual onset On Anticoagulants: Yes Associated symptoms: confusion and weakness Treatments Prior to Arrival: none Related Data Home Medications ?Medication ?Instructions ?Recorded ?Confirmed levothyroxine 25 mcg tablet 25 mcg PO DAILY 09/05/20 06/09/24 aspirin 81 mg tablet,delayed 81 mg PO DAILY 09/11/21 06/09/24 release pen needle, diabetic 32 gauge x #50 ea 12/31/21 06/09/24 (BD Cathy 2nd Gen Pen Needle) multivitamin (One Daily 1 tab PO DAILY 09/15/22 06/09/24 Multivitamin tablet) lancets 28 gauge (FreeStyle #100 ea 09/29/22 06/09/24 Lancets) vitamins A,C,C-gxcj-cokkzq 2,148 1 tab PO BIDWM 05/09/23 06/09/24 mcg-113 mg-45 mg-17.4 mg tablet (PreserVision AREDS) melatonin 5 mg tablet 10 mg PO BEDTIME PRN Sleep 06/04/23 06/09/24 amlodipine 5 mg tablet 5 mg PO DAILY 11/13/23 06/09/24 warfarin 1 mg tablet 1 mg PO DAILY 01/12/24 06/14/24 insulin aspart U-100 100 unit/mL See Protocol subcut QIDACHS 03/15/24 06/09/24 subcutaneous solution Previous Rx's ?Medication ?Instructions ?Recorded atorvastatin 10 mg tablet 10 mg PO BEDTIME #90 tabs 09/22/22 empagliflozin 10 mg tablet 10 mg PO DAILY #30 tabs 09/02/23 (Jardiance) insulin glargine 100 unit/mL 25 unit (0.25 mL) subcut BEDTIME 01/23/24 subcutaneous solution (Lantus #10 mL U-100 Insulin) furosemide 40 mg tablet (Lasix) 20 mg (1/2 x 40 mg) PO DAILY #90 03/19/24 tabs sodium bicarbonate 650 mg tablet 650 mg PO BID #60 tabs 03/19/24 valsartan 40 mg tablet 20 mg (1/2 x 40 mg) PO DAILY #90 03/19/24 tabs mirabegron 25 mg tablet,extended 25 mg PO DAILY 30 days #30 tabs 06/07/24 release 24 hr (Myrbetriq) metoprolol succinate 200 mg 200 mg PO DAILY #90 tabs 06/09/24 tablet,extended release 24 hr Allergies Allergy/AdvReac Type Severity Reaction Status Date / Time No Known Allergies Allergy Verified 06/17/24 10:57 [No Known Allergies*] Review of Systems 2 Review of Systems: ROS unable to be obtained due to altered mental status [facility] Past Medical History Attestation statement: The following information was validated with the patient. Source: old records reviewed Medical History Hydronephrosis determined by ultrasound Permanent atrial fibrillation DOROTHY (acute kidney injury) Atrial fibrillation Neuropathy Neurogenic bladder CVA (cerebral vascular accident) Shingles Elevated cholesterol Myocardial infarction MRSA infection Hip pain Leg wound, left Varicose vein of leg Osteoarthritis of right hip Current use of anticoagulant therapy Recurrent UTI Atrial fibrillation PAF (paroxysmal atrial fibrillation) Congestive heart failure Urinary incontinence Hypothyroidism Diabetes Hypertension CKD (chronic kidney disease) CAD (coronary artery disease) Hypotonic neurogenic bladder Surgical History History of left knee replacement History of right knee joint replacement H/O heart artery stent H/O nasal polypectomy History of tubal ligation History of tonsillectomy and adenoidectomy Hx of cholecystectomy Family History Family History Father Hx of angina pectoris Myocardial infarction Mother Ovarian cancer Stomach cancer Maternal Grandfather Hardening of the arteries of the heart Social History Social History Household Members: Children Household Members Other:: daughter Housing: House Are you a primary after school caregiver to a significant other at home: No Do you presently have visiting nurse or other home services: Yes (vna,meals on wheels , physical therapy) Alcohol intake: never [place]: [facility] [place] Tobacco Use Status: Never used Tobacco Smoked in Last 30 Days: No Second Hand Smoke Exposure: No Advance Directives Date on File: 08/27/22 Do you have a plan to hurt others: No Plan service: No Current occupational status: retired Physical Exam 2 Vital Signs: Vital Signs: Last Vital Signs Temp 97.8 F 06/17/24 12:23 Pulse 92 06/17/24 12:23 Resp 18 06/17/24 12:23 BP 112/64 06/17/24 12:23 Pulse Ox 100 06/17/24 12:23 O2 Del Method Room Air 06/17/24 12:23 BMI result Body Mass Index 32.0 Appearance: Alert. Oriented x 2 confused on time. Mild acute distress. Eyes: Pupils equal, round and reactive to light. ENT: Pharynx normal. atraumatic Neck: Normal inspection. Neck supple. CVS: irregular heart rate and rhythm. Pulses normal. Respiratory: No respiratory distress. Breath sounds normal. Abdomen: Soft and non-tender. Skin: Skin warm and dry. pale skin color. Extremities: No lower extremity edema. No calf ttp Neuro: Oriented X 2 it hard to get exam she seems to stutter and have aphasia uses both R and L arms then tells me she cannot use her L so it is inconsistent. No sensor deficits. On drift it was L side. Course Course Course Narrative: at this time infection suspected cultures, lactic acid and IV ceftriaxone ordered 1242pm Reevaluation(s) Reevaluation #1: 1243pm still weak, stuttering not at baseline 1245pm 6 beat run of VTach Reevaluation #2: aspirin held given coumadin use and bleeding risks Medications Administered Generic Name Dose Route Start Last Admin Trade Name Freq PRN Reason Stop Dose Admin Sodium Chloride 1,000 mls @ 100 mls/hr 06/17/24 12:45 06/17/24 12:59 Ns IVCONT 100 mls/hr .Q10H SUN Administration Ceftriaxone Sodium 1 gm/ 50 mls @ 100 mls/hr 06/17/24 12:40 06/17/24 12:59 Sodium Chloride IV 06/17/24 13:09 100 mls/hr ONCE ONE Administration Medical Decision Making Medical Decision Making [facility] Narrative: 83 yo female with PMH of aortic stenosis, DM, MRSA, CAD, HTN, HLD, hypothyroidism, afib on coumadin here with c/o confusion, reported R sided deficits but her exam is not reliable at this time will need CT head for ICH cannot get CTA has CKD and is on coumadin not a candidate for TNK. Could have lab abnormality or other cause. Labs, CXR and UA ordered. Differential Diagnosis Differential Diagnoses: The differential diagnosis associated with the presentation includes stroke, encephalopathy - metabolic/toxic, ICH Admission/Observation Consideration of admission/observation: Escalation of care including admission/observation considered admit not at baseline, admit for IVF DOROTHY and UTI Consult Healthcare Provider Management of the patient was discussed with: Hospitalist (will admit) Lab Data [facility] Lab Attestation statement: I reviewed the patient's lab results. 06/17/24 11:29 06/17/24 11:29 Labs: Lab Results 06/17/24 06/17/24 06/17/24 Range/Units 10:45 11:29 12:25 WBC 8.1 (4.8-10.8) X10*3/uL RBC 4.46 (4.20-5.50) X10*6/uL Hgb 12.9 (12.0-16.0) g/dl Hct 39.3 (37.0-47.0) % MCV 88.1 (80.0-98.0) fL MCH 28.9 (27.0-33.0) pg MCHC 32.8 (31.0-35.0) g/dl RDW 15.5 (11.0-16.0) % Plt Count 237 D (160-400) X10*3/uL MPV 9.1 L (9.4-12.3) fL Immature Gran % (Auto) 0.6 H (0.0-0.4) % Neut % (Auto) 63.7 (45-73) % Lymph % (Auto) 15.2 L (20-40) % [place] % (Auto) 18.4 H (2-11) % Eos % (Auto) 1.5 (0-4) % Baso % (Auto) 0.6 (0-2) % Lymph # (Auto) 1.2 (1.2-4.9) X10*3/uL [place] # (Auto) 1.5 H (0.1-1.2) X10*3/uL Eos # (Auto) 0.1 (0.0-0.4) X10*3/uL Baso # (Auto) 0.1 (0.0-0.2) X10*3/uL Abs Immat Gran (auto) 0.05 H (0.00-0.03) X10*3/uL Absolute Neuts (auto) 5.2 (2.0-8.3) x10*3/uL Absolute Nucleated RBC 0.000 (0.0-0.012) X10*3/uL Nucleated RBC % (auto) 0.0 (0.0-0.2) /100WBC PT 27.3 H (11.1-13.3) SEC INR 2.2 H (0.9-1.1) Sodium 136 (135-145) mmol/L Potassium 4.8 (3.3-5.1) mmol/L Chloride 102 (96-108) mmol/L Carbon Dioxide 23 (22-29) mmol/L Anion Gap 16 (12-20) BUN 48 H (9-16) mg/dL Creatinine 2.70 H (0.5-1.4) mg/dL Estim Creat Clear Calc 17.2 Estimated GFR 17 POC Glucose 128 H (60-115) mg/dL Random Glucose 154 H (60-115) mg/dL Calcium 9.3 (8.4-10.2) mg/dL Magnesium 2.5 (1.6-2.6) mg/dL Total Bilirubin 0.7 (0.0-1.0) mg/dL Direct Bilirubin 0.3 (0.0-0.5) mg/dL AST 25 (5-31) U/L ALT 14 (0-31) U/L Alkaline Phosphatase 126 H (39-117) U/L Troponin I High Sens 9.2 D (<3.5-17.0) ng/L B-Natriuretic Peptide 476 H (<100) pg/mL Total Protein 8.4 H (6.5-8.0) g/dL Albumin 3.4 L (3.5-5.0) g/dL Lipase 54 (8-78) U/L Urine Color Yellow Urine Appearance Turbid Urine pH 5.5 (5.0-9.0) Ur Specific [place] 1.010 (1.005-1.025) Urine Protein 100 (2+) H (Neg-Trace) mg/dL Urine Glucose (UA) Negative (Negative) mg/dL Urine Ketones Negative (Negative) mg/dL Urine Blood Large (3+) H (Negative) Urine Nitrite Negative (Negative) Ur Leukocyte Esterase Large (3+) H (Negative) Urine RBC 3-5 H (0-2) /HPF Urine WBC >50 H (0-5) /HPF Ur Squamous Epith Cells 0-2 (0-2) /HPF Urine Bacteria 4+ (None Seen) Hyaline Casts 0-2 (0-2) /LPF Influenza Type A (PCR) NEGATIVE (Negative) Influenza Type B (PCR) NEGATIVE (Negative) RSV RNA Qual (PCR) NEGATIVE (Negative) SARS-CoV-2 RNA (RT-PCR) NEGATIVE (Negative) Independent Interpretation I performed an independent interpretation of an: EKG, Plain X-Ray (no CHF or pneumonia) and CT Scan (no ICH) Interpretation: Rate: 93 Rhythm: afib [place]: normal Normal QRS complex. ST T wave : nonspecific ST T wave changes lateral leads v4-V6, no MICHAELLE qTC: 472 prior studies: no acute ischemia The study has been interpreted contemporaneously by me. . Radiology Impression Discussion of test interpretation with radiology: I have reviewed the radiologist's reading. External Record Review External record reviewed: Inpatient record NIH Stroke Scale Internal: Initial- Upon Arrival Level of Consciousness: Alert Level of Consciousness Questions: Answers one question correctly Level of Consciousness Commands: Performs both tasks correctly Best Gaze: Normal Visual: No visual loss Facial Palsy: Normal Motor Arm (Right): Drift Motor Arm (Left): Drift Motor Leg (Right): Drift Motor Leg (Left): Drift Limb Ataxia: Absent Sensory: Normal Best Language: Mild to moderate aphasia Dysarthia: Normal Extinction and Inattention: No abnormality Score: 6 Critical Care Time Critical Care Time Critical Care Time: Yes Total Critical Care Time: 40 Attestation: review of records, stroke protocol, admission I attest to this time spent taking care of the patient Discharge Plan Discharge Clinical Impression: Aphasia, Encephalopathy acute, Acute kidney injury superimposed on chronic kidney disease, Acute UTI Patient Disposition: Admitted As Inpatient Print Language: Persian
[2024-06-17 11:59] LABS: Troponin-I High Sensitivity 9.2 ng/L (<3.5-17.0)
[2024-06-17 12:04] LABS: Alanine Aminotransferase 14 U/L (0-31); Albumin Level 3.4 g/dL (3.5-5.0); Alkaline Phosphatase 126 U/L (39-117); Anion Gap 16 (12-20); Aspartate Amino Transferase 25 U/L (5-31); Bilirubin Direct 0.3 mg/dL (0.0-0.5); Bilirubin Total 0.7 mg/dL (0.0-1.0); Blood Urea Nitrogen 48 mg/dL (9-16); Calcium 9.3 mg/dL (8.4-10.2); Carbon Dioxide 23 mmol/L (22-29); Chloride 102 mmol/L (96-108); Creatinine Clr Calc Pharmacy 17.2; Estimated Glomerular Filt Rate 17; Glucose Random 154 mg/dL (60-115); Lipase 54 U/L (8-78); Magnesium 2.5 mg/dL (1.6-2.6); Potassium 4.8 mmol/L (3.3-5.1); Sodium 136 mmol/L (135-145); Total Protein 8.4 g/dL (6.5-8.0)
[2024-06-17 12:20] LABS: Influenza A PCR NEGATIVE (Negative); Influenza B PCR NEGATIVE (Negative); Resp Syncy Virus RNA Qual PCR NEGATIVE (Negative); SARS COV2 PCR INHOUSE NEGATIVE (Negative)
[2024-06-17 12:23] VITALS: BP 112/64; PULSE 92; RESP 18; TEMP 36.6; O2SAT 100
--- NOTE | 2024-06-17 12:31 | PC.NURSE ---
Pt Daughter Sandra left cell # [phone]. Please call first before number in chart.
[2024-06-17 12:33] LABS: Appearance Urine Turbid; Color Urine Yellow; Glucose Urine UA Negative (Negative); Leukocyte Esterase Urine Large (3+) (Negative); Nitrite Urine Negative (Negative); PH 5.5 (5.0-9.0); UMIC TRIGGER UACC YES; Urine Blood Large (3+) (Negative); Urine Ketones Negative (Negative); Urine Protein 100 (2+) mg/dL (Neg-Trace)
[2024-06-17 12:47] LABS: Bacteria Urine 4+ (None Seen); Hyaline Casts Urine 0-2 /LPF (0-2); Squamous Epithelial Cell Urine 0-2 /HPF (0-2); UACC Culture Trigger YES; WBC Urine >50 /HPF (0-5)
[2024-06-17] MEDS: 0.9 % Sodium Chloride 1,000 ML 100 ML IVCONT (12:59)
[2024-06-17] MEDS: cefTRIAXone sodium 1 GM in 0.9 % Sodium Chloride 50 ML IV (12:59)
[2024-06-17 13:18] LABS: Lactic Acid 1.1 mmol/L (0.5-2.0)
[2024-06-17 13:23] LABS: Estimated Average Glucose 169 mg/dL; Hemoglobin A1c % 7.5 % (<6.0)
--- NOTE | 2024-06-17 13:34 | PM.IMHP ---
History of Present Illness Date of Service: 06/17/24 Attending physician on admission: [facility] Chief Complaint: Slurred speaking, weakness Pt is an 83-year-old female with a PMH significant for?chronic Coumadin, chronic systolic CHF (EF 45-50%, , MR), CAD, CKD 3, insulin-dependent type 2 diabetes, hypothyroidism, HTN, and neurogenic bladder with suprapubic catheter who presents to the ED with sudden onset confusion, difficulty speaking, and weakness. Patient is alert and oriented to self and place only at time of interview and exam. Patient does not know why she is in the hospital or why she is being evaluated for. Family is no longer at bedside unable to be reached by found. HPI is thus obtained from chart and provider review. Patient comes from home where she lives with her family. Apparently felt unwell while in the bathroom early this morning at 10:00 and called out for her daughter for help. Per EMS patient was experiencing right-sided weakness and difficulty speaking with slurred language, stuttering, and difficulty word finding. EMS also reports right-sided deficits including facial droop. ?Patient herself current complains only of headache and diabetic neuropathy. However, HPI difficult to obtain. Patient with noted delayed response, difficulty word finding, and stuttering. Of note, cardiac monitoring while in the ED caught a run of 6 beats of V-tach. Patient was asymptomatic without chest pain/pressure. In the ED pt with elevated HR of 92, and initially soft BP of 118/55. Labs were significant for BUN 48, creatinine 2.7, alk-phos 126, BNP 476, and initial troponin 9.2. No leukocytosis. Stable H&H. No significant electrolyte abnormalities. Lactic acid WNL at 1.1. UA positive for UTI. CXR showed no acute abnormality. CT of head?showed no acute intracranial abnormality. EKG demonstrated atrial fibrillation without evidence of significant ST elevations or depressions. Pt was treated with ceftriaxone and placed maintenance fluids. Pt will be admitted to the hospital for treatment and further evaluation of encephalopathy, aphasia, and weakness concerning for acute CVA. Patient also has DOROTHY and acute UTI. Review of Systems Review of Systems: Unable to obtain due to patient's mentation [facility] Medical History Hydronephrosis determined by ultrasound Permanent atrial fibrillation DOROTHY (acute kidney injury) Atrial fibrillation Neuropathy Neurogenic bladder CVA (cerebral vascular accident) Shingles Elevated cholesterol Myocardial infarction MRSA infection Hip pain Leg wound, left Varicose vein of leg Osteoarthritis of right hip Current use of anticoagulant therapy Recurrent UTI Atrial fibrillation PAF (paroxysmal atrial fibrillation) Congestive heart failure Urinary incontinence Hypothyroidism Diabetes Hypertension CKD (chronic kidney disease) CAD (coronary artery disease) Hypotonic neurogenic bladder Family History Father Hx of angina pectoris Myocardial infarction Mother Ovarian cancer Stomach cancer Maternal Grandfather Hardening of the arteries of the heart Surgical History History of left knee replacement History of right knee joint replacement H/O heart artery stent H/O nasal polypectomy History of tubal ligation History of tonsillectomy and adenoidectomy Hx of cholecystectomy Social History Household Members: Unknown / Unable to assess Household Members Other:: daughter Housing: Unknown / Unable to assess Are you a primary skin care therapist to a significant other at home: No Do you presently have visiting nurse or other home services: No Alcohol intake: never [place] [facility] [place] Tobacco Use Status: Never used Tobacco Smoked in Last 30 Days: No Second Hand Smoke Exposure: No Use of substances other than those prescribed or required for medical reasons: Unable to respond Currently Displaying Signs/Symptoms of Drug Intoxication Withdrawal: No Any prior treatment program specific to substance use: No Advance Directives: Yes Advance Directives on File: Yes Advance Directives Date on File: 08/27/22 Do you have a plan to hurt others: No Plan Recently lost weight without trying: Unsure How much weight loss: Unsure Nutrition Risks: No Nutritional Risk Patient : No : No service: No Current occupational status: retired Meds Allergies Allergy/AdvReac Type Severity Reaction Status Date / Time No Known Allergies Allergy Verified 06/17/24 10:57 [No Known Allergies*] Active Medications: Current Medications Sodium Chloride (Ns) 1,000 mls @ 100 mls/hr IVCONT .Q10H SUN Last Admin: 06/17/24 12:59 Dose: 100 mls/hr Home Medications ?Medication ?Instructions ?Recorded ?Confirmed ?Last Taken ?Type levothyroxine 25 mcg tablet 25 mcg PO DAILY@0600 09/05/20 06/17/24 06/16/24 History aspirin 81 mg tablet,delayed 81 mg PO DAILY 09/11/21 06/17/24 06/16/24 History release pen needle, diabetic 32 gauge x #50 ea 12/31/21 06/09/24 06/16/24 History 5/32 (BD Cathy 2nd Gen Pen Needle) multivitamin (One Daily 1 tab PO DAILY 09/15/22 06/17/24 06/16/24 History Multivitamin tablet) lancets 28 gauge (FreeStyle #100 ea 09/29/22 06/09/24 06/16/24 History Lancets) vitamins A,C,P-gxrj-dkzahs 2,148 1 tab PO BIDWM 05/09/23 06/17/24 06/16/24 History mcg-113 mg-45 mg-17.4 mg tablet (PreserVision AREDS) melatonin 5 mg tablet 10 mg PO BEDTIME PRN Sleep 06/04/23 06/17/24 03/14/24 History amlodipine 5 mg tablet 5 mg PO DAILY 11/13/23 06/17/24 06/16/24 History warfarin 1 mg tablet 1 mg PO MOWEFR 01/12/24 06/17/24 06/15/24 History insulin aspart U-100 100 unit/mL See Protocol subcut QIDACHS 03/15/24 06/17/24 06/16/24 History subcutaneous solution furosemide 20 mg tablet 20 mg PO BID 06/17/24 06/17/24 06/16/24 History valsartan 40 mg tablet 20 mg PO BID 06/17/24 06/17/24 06/16/24 History warfarin 1 mg tablet 2 mg PO SUTUTHSA 06/17/24 06/17/24 06/16/24 History Physical Exam Vital Signs and Narrative: Vital Signs: Last Vital Signs Temp 97.8 F 06/17/24 12:23 Pulse 92 06/17/24 12:23 Resp 18 06/17/24 12:23 BP 112/64 06/17/24 12:23 Pulse Ox 100 06/17/24 12:23 O2 Del Method Room Air 06/17/24 12:23 BMI result Body Mass Index 32.0 Constitutional: Alert, in no acute distress. Mental Status: Oriented to person and place but not to time or situation. Eyes: Pupils are equal, round, and reactive to light. Ear, Nose, and Throat: Oropharynx clear, mucous membranes moist. Ears and nose without deformities. Trachea midline. Respiratory: Clear to auscultation bilaterally. No wheezing, rales, or rhonchi. Cardiovascular: Irregularly irregular rhythm. Systolic murmur heard at right sternal border. Gastrointestinal: Abdomen soft, non-tender, non-distended. Normal bowel sounds. Neurologic: Pt with pronounced stuttering, delayed response, and difficulty word finding. Slight left-sided facial droop. Global 1/5 strength of upper and lower extremities bilaterally. Skin: Warm, dry. Extremities: No edema. Results Labs 06/17/24 11:29 06/17/24 11:29 Labs: Laboratory Results - last 24 hr 06/17/24 06/17/24 06/17/24 10:45 11:29 12:25 MCV 88.1 MCH 28.9 MCHC 32.8 RDW 15.5 Plt Count 237 D MPV 9.1 L Immature Gran % (Auto) 0.6 H Neut % (Auto) 63.7 Lymph % (Auto) 15.2 L [place] % (Auto) 18.4 H Eos % (Auto) 1.5 Baso % (Auto) 0.6 Lymph # (Auto) 1.2 [place] # (Auto) 1.5 H Eos # (Auto) 0.1 Baso # (Auto) 0.1 Abs Immat Gran (auto) 0.05 H Absolute Neuts (auto) 5.2 Absolute Nucleated RBC 0.000 Nucleated RBC % (auto) 0.0 PT 27.3 H INR 2.2 H Anion Gap 16 Estim Creat Clear Calc 17.2 Estimated GFR 17 POC Glucose 128 H Random Glucose 154 H Estimat Average Glucose 169 Hemoglobin A1c % 7.5 H Lactic Acid Calcium 9.3 Magnesium 2.5 Total Bilirubin 0.7 Direct Bilirubin 0.3 AST 25 ALT 14 Alkaline Phosphatase 126 H Troponin I High Sens 9.2 D B-Natriuretic Peptide 476 H Total Protein 8.4 H Albumin 3.4 L Lipase 54 Urine Color Yellow Urine Appearance Turbid Urine pH 5.5 Ur Specific [place] 1.010 Urine Protein 100 (2+) H Urine Glucose (UA) Negative Urine Ketones Negative Urine Blood Large (3+) H Urine Nitrite Negative Ur Leukocyte Esterase Large (3+) H Urine RBC 3-5 H Urine WBC >50 H Ur Squamous Epith Cells 0-2 Urine Bacteria 4+ Hyaline Casts 0-2 Influenza Type A (PCR) NEGATIVE Influenza Type B (PCR) NEGATIVE RSV RNA Qual (PCR) NEGATIVE SARS-CoV-2 RNA (RT-PCR) NEGATIVE 06/17/24 12:49 MCV MCH MCHC RDW Plt Count MPV Immature Gran % (Auto) Neut % (Auto) Lymph % (Auto) [place] % (Auto) Eos % (Auto) Baso % (Auto) Lymph # (Auto) [place] # (Auto) Eos # (Auto) Baso # (Auto) Abs Immat Gran (auto) Absolute Neuts (auto) Absolute Nucleated RBC Nucleated RBC % (auto) PT INR Anion Gap Estim Creat Clear Calc Estimated GFR POC Glucose Random Glucose Estimat Average Glucose Hemoglobin A1c % Lactic Acid 1.1 Calcium Magnesium Total Bilirubin Direct Bilirubin AST ALT Alkaline Phosphatase Troponin I High Sens B-Natriuretic Peptide Total Protein Albumin Lipase Urine Color Urine Appearance Urine pH Ur Specific [place] Urine Protein Urine Glucose (UA) Urine Ketones Urine Blood Urine Nitrite Ur Leukocyte Esterase Urine RBC Urine WBC Ur Squamous Epith Cells Urine Bacteria Hyaline Casts Influenza Type A (PCR) Influenza Type B (PCR) RSV RNA Qual (PCR) SARS-CoV-2 RNA (RT-PCR) Imaging Radiologist's Impressions: Impressions Head CT 06/17/24 10:45 IMPRESSION: No acute intracranial abnormality including hemorrhage, mass effect, hydrocephalus, or acute territorial edematous infarction. . Above impression was communicated to Milka Turner MD on 06/17/2024 11:10 AM Chest X-Ray 06/17/24 10:58 IMPRESSION: No acute abnormality. Assessment and Plan (1) Acute UTI: Status: Acute (2) Aphasia: Status: Acute (3) Acute kidney injury superimposed on chronic kidney disease: Status: Acute Plan Pt is an 83-year-old female with a PMH significant for?chronic Coumadin, chronic systolic CHF (EF 45-50%, , MR), CAD, CKD 3, insulin-dependent type 2 diabetes, hypothyroidism, HTN, and neurogenic bladder with suprapubic catheter who presents to the ED with sudden onset confusion, difficulty speaking, and weakness. Pt was treated with ceftriaxone and placed maintenance fluids. Pt will be admitted to the hospital for treatment and further evaluation of encephalopathy, aphasia, and weakness concerning for acute CVA. Patient also has DOROTHY and acute UTI. Acute encephalopathy, aphasia, and weakness Patient with reported sudden-onset confusion, left-sided weakness, and difficulty speaking around 10:00 this morning Physical exam reveals pronounced delayed response, stuttering, and difficulty word finding; left-sided facial droop; and global weakness difficult to assess hemiparesis Concerning for CVA Patient not a candidate for neither CTA given DOROTHY nor tNK since on Coumadin CT of head negative for acute intracranial abnormality including hemorrhage, mass effect, hydrocephalus, acute territorial edematous infarction Will get MRI of head/brain Carotid ultrasound Echocardiogram Continue aspirin Increase atorvastatin to 40 mg daily Lipid profile PT/OT evaluation Neurology consult Monitor on telemetry DOROTHY on CKD III Creatinine 2.70, up from 1.96 on 05/02/2024 Patient placed on maintenance IVF x2 L Follow BMP Acute UTI Patient with suprapubic catheter in place UA positive for UTI Does not meet sepsis criteria: Elevated HR of 92, but no tachypnea, fever, or leukocytosis; lactic acid WNL Patient given IVF and started on broad-spectrum antibiotics in the ED Will treat with ceftriaxone, started 06/17/2024 Follow urine cultures Persistent AFib INR therapeutic at 2.2 Continue Coumadin Monitor INR HFrEF Not in acute exacerbation Continue metoprolol Hold home Lasix due to DOROTHY, resume as warranted Insulin-dependent type 2 diabetes Sliding-scale insulin, Lantus Continue Jardiance Diabetic diet Hypothyroidism Continue levothyroxine HTN Continue amlodipine, valsartan Full Code Attending:?Dr. Schaefer DVT Prophylaxis: On Coumadin Pt will require a hospitalization of at least two nights for treatment of acute onset encephalopathy, aphasia, and weakness concerning for CVA. Patient also with DOROTHY and acute UTI. Patient will require hospitalization for additional imaging and workup before potential acute CVA, as well as administration of IV fluids and IV antibiotics for DOROTHY and UTI. Quality Stroke Does the patient have a stroke diagnosis?: No Reason for No Anti-thrombotic by Day Two: Contraindicated (Pt on Coumadin, not a candidate for tNK) VTE Prior VTE?: No VTE Risk Level:: Medical - moderate - high VTE Device Contraindication: Treatment Not Indicated VTE Drug Contraindication: N/A - Med Ordered
--- NOTE | 2024-06-17 13:48 | PHA.MEDREC ---
Pharmacy Consult ? Medication Reconciliation Pharmacy has completed the medication reconciliation, confirmed all medications with patient's daughter Sandra ([phone]), daughter confirmed off of list she had from pt's medical record and bottles in front of her. Daughter said she did not see clopidogrel, ketorolac, or sodium bicarb tablets so those were left off. Confirmed Lantus 25 units at bedtime and novolog per sliding scale, said she take took her morning meds on 06/16 and night time meds the day before. Daughter said warfarin [place] [facility] [place] [facility] [place] taking 1 mg MWF and 2 mg all other days of the week per her INR.
[2024-06-17 14:02] LABS: Cholesterol 114 mg/dL (<200); HDL Cholesterol 35 mg/dL (>40); LDL Cholesterol Calculated 60 mg/dL (<100); Triglycerides 99 mg/dL (<150)
--- NOTE | 2024-06-17 14:17 | CA_ITS ---
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 The calculated ejection fraction is 51% by biplane method. - Overall, suspect paradoxical, low-flow, low gradient moderate aortic stenosis. Findings Left Ventricle Normal left ventricular cavity size. The left ventricular systolic function is mildly decreased. The calculated ejection fraction is 51% by biplane method. There is mild global hypokinesis. Diastolic function is indeterminate on the basis of available data. There is mild septal asymmetric hypertrophy. Right Ventricle Normal right ventricular cavity size. There is moderately decreased right ventricular systolic function. Atria The left atrium is normal in size. The right atrium is mildly dilated. Aortic Valve There is moderate calcification of the aortic valve. There is no aortic valve regurgitation. Dimensionless index 0.33. Stroke volume index 16 mL/m2. Overall, suspect paradoxical, low-flow, low gradient moderate aortic stenosis. Mitral Valve There is mild mitral annular calcification. There is trace mitral valve regurgitation. There is no mitral valve stenosis. Pulmonic Valve The pulmonic valve is likely normal. Tricuspid Valve There is mild tricuspid valve regurgitation. There is no evidence of pulmonary hypertension. Great Vessels The asc aorta is normal in size. Venous The inferior vena cava is normal in size and collapses less than 50% with inspiration. Pericardium/Pleural There is no evidence of pericardial effusion. Prior Study Comparison Changes noted compared to prior study dated: 01/12/2024. Progression of aortic stenosis. Measurements 2D Linear Measurements IVSd: 1.12 0.6-0.9/0.6-1.0 cm LVIDd: 4.74 3.9-5.3/4.2-5.9 cm LVIDd Index: 2.44 2.4-3.2/2.2-3.1 cm/m2 LVIDs: 3.61 2.0-3.6 cm LVPWd: 0.90 0.7-1.1 cm LA Diam: 3.70 2.7-3.8/3.0-4.0 cm LAIDs Index: 1.91 1.5-2.3 cm/m2 LV Mass: 210.09 67-162/88-224 g LV Mass Index: 108.29 43-95/49-115 g/m2 LVOT Diam: 2.00 3.0+(-)1.3 cm 2D Systolic Function EF 4C: 52.70 >55% EF 2C: 50.50 >55% EF BiP: 51.10 >55% Mitral Valve MV Pk E: 1.08 E'Lateral: 9.64 E'Medial: 5.15 E/E' Med: 21.00 E/E' Lat: 11.20 Aortic Valve AoV Pk Marcus: 1.95 AoV Mn Marcus: 1.34 AoV VTI: 0.39 AoV Pk Grad: 15.00 Aov Mn Grad: 8.00 ANDI Cont.VTI: 0.79 ANDI Method: Pressure Half Time LVOT LVOT Pk Marcus: 0.65 LVOT Mn Marcus: 0.44 LVOT VTI: 0.10 LVOT Pk Grad: 2.00 LVOT Mn Grad: 1.00 LVOT Diam: 2.00 LVOT Area: 3.14 Diastolic Function MV Pk E: 1.08 E'Medial: 5.15 E/E' Med: 21.00 E' Laterial: 9.64 E/E' Lat: 11.20 Right Ventricle TAPSE (mm): 13.40 TVS' Marcus: 6.66 Tricuspid Valve TR Pk Marcus: 2.23 TR Pk Grad: 20.00 RA Press: 8.00 RVSP: 28.00 Great Vessels Aorta Sinus of Valsalva: 2.80 2.0-3.5 cm Ao Asc: 3.40 2.1-3.4 cm Pulmonary Valve PV Pk Marcus: 0.62 Peak PV Grad: 2.00 Updated in Other Vendor System with Status of Final Rene Patterson MD electronically signed on 06/17/2024 3:56:07 PM with status of Final
[2024-06-17 15:31] VITALS: BP 117/63; PULSE 99
[2024-06-17] MEDS: Metoprolol Succinate ER 100 MG TAB.ER.24H 200 MG PO (15:31)
[2024-06-17] MEDS: Aspirin Enteric Coated 81 MG TABLET.DR PO (15:31)
[2024-06-17] MEDS: 0.9 % Sodium Chloride Flush 3 ML SYRINGE IVFLUSH (18:09)
[2024-06-17 19:01] LABS: Glucose, Whole Blood 116 mg/dL (60-115)
[2024-06-17] MEDS: Warfarin Sodium 1 MG TABLET PO (19:49)
[2024-06-17 20:32] VITALS: BP 106/49; PULSE 103; RESP 12; TEMP 36.7; O2SAT 93
[2024-06-17 21:29] LABS: Glucose, Whole Blood 201 mg/dL (60-115)
[2024-06-17] MEDS: Melatonin 3 MG TABLET 6 MG PO (21:56)
[2024-06-17] MEDS: Valsartan 40 MG TABLET 20 MG PO (21:56)
[2024-06-17] MEDS: Atorvastatin Calcium 40 MG TABLET PO (21:57)
[2024-06-17] MEDS: Insulin Glargine,Hum.rec.anlog 100 UNIT/ML 10 ML VIAL 17 UNIT SUBCUT (22:01)
--- NOTE | 2024-06-17 22:07 | PC.NURSE ---
patient to unit just before 2100, RN on unit noted that fluids are scheduled to be running continously at 100/hr and is documented, patient came up to unit without fluids running. This RN started fluids on patient once able to medicate patient. patient cleaned and medicated per DEC, all needs met at this time, safety and comfort maintained, call zhou within reach. admission completed.
[2024-06-17 23:34] VITALS: BP 117/59; PULSE 104; RESP 20; TEMP 37.2; O2SAT 97
[2024-06-18] MEDS: 0.9 % Sodium Chloride 1,000 ML 100 ML IVCONT ×2 (00:51→11:14)
[2024-06-18 03:29] VITALS: BP 118/56; PULSE 95; RESP 20; TEMP 36.3; O2SAT 98
--- NOTE | 2024-06-18 06:25 | PM.EVENT ---
Event Note Date of Service: 06/18/24 Event Note: Blood culture with Gram-positive cocci in clusters. Initiating vancomycin Time Spent With Patient Time: Total time managing care of this patient today ____ minutes.
[2024-06-18] MEDS: Levothyroxine Sodium 25 MCG TABLET PO (06:29)
--- NOTE | 2024-06-18 06:59 | P.PNIM_ITS ---
Subjective Subjective Date of Service: 06/18/24 Interval History: f/u encephalopathy, uti, gram positive bacteremia and being work up for stroke feels dizzy, has headache but no confusion Physical Exam 2 Vital Signs: Vital Signs: Last Vital Signs Temp 97.4 F 06/18/24 03:29 Pulse 95 06/18/24 03:29 Resp 20 06/18/24 03:29 BP 118/56 L 06/18/24 03:29 Pulse Ox 98 06/18/24 03:29 O2 Del Method Room Air 06/18/24 03:29 BMI result Body Mass Index 32.0 General: AO X 3, no acute distress Resp: CTA bilateral CVS: S1,S2,RRR GI: +BS, NT, no distention Skin: No rash Neuro: motor grossly intact Psych: appropriate affect Objective Data Active Medications Acetaminophen (Acetaminophen 325 Mg Tablet) 650 mg PO Q6H PRN PRN Reason: Pain, Mild (Pain Scale 1-3), fever or headache Amlodipine Besylate (Amlodipine Besylate 5 Mg Tablet) 5 mg PO DAILY [facility]; Protocol Aspirin (Aspirin Enteric Coated 81 Mg Tablet.Dr) 81 mg PO DAILY [facility] Last Admin: 06/17/24 15:31 Dose: 81 mg Documented By: FLY Atorvastatin Calcium (Atorvastatin Calcium 40 Mg Tablet) 40 mg PO BEDTIME [facility] Last Admin: 06/17/24 21:57 Dose: 40 mg Documented By: ASPEN Benzonatate (Benzonatate 100 Mg Capsule) 100 mg PO TID PRN PRN Reason: Cough Calcium Carbonate (Calcium Carbonate 750 Mg Tab.Chew) 750 mg PO Q4H PRN PRN Reason: Heartburn Empagliflozin (Empagliflozin 10 Mg Tablet) 10 mg PO DAILY [facility] Glucose (Glucose Gel 15 Gm Gel..Gram.) 15 gm PO Q15M PRN; Protocol PRN Reason: per Hypoglycemia Standing Ord. Sodium Chloride (Ns) 1,000 mls @ 100 mls/hr IVCONT .Q10H [facility] Last Admin: 06/18/24 00:51 Dose: 100 mls/hr Documented By: ASPEN Dextrose (D10) 250 mls @ 750 mls/hr IV Q15M PRN; Protocol PRN Reason: per Hypoglycemia Standing Ord. Vancomycin HCl 2,000 mg/ (Sodium Chloride) 500 mls @ 250 mls/hr IV ONCE ONE Stop: 06/18/24 08:30 Insulin Glargine (Insulin Glargine,Hum.Rec.Anlog 100 Unit/Ml 10 Ml Vial) 17 unit SUBCUT BEDTIME [facility] Last Admin: 06/17/24 22:01 Dose: 17 unit Documented By: ASPEN Insulin Human Lispro (Insulin Lispro 100 Unit/Ml 3 Ml Vial) 0 unit SUBCUT QIDACHS [facility]; Protocol Last Admin: 06/17/24 22:02 Dose: Not Given Documented By: ASPEN Non-Admin Reason: Patient Refused Levothyroxine Sodium (Levothyroxine Sodium 25 Mcg Tablet) 25 mcg PO DAILY@0600 [facility] Last Admin: 06/18/24 06:29 Dose: 25 mcg Documented By: ASPEN Magnesium Hydroxide (Milk Of Magnesia 30 Ml Oral.Susp) 30 ml PO DAILY PRN PRN Reason: Constipation Melatonin (Melatonin 3 Mg Tablet) 6 mg PO BEDTIME PRN PRN Reason: Insomnia Last Admin: 06/17/24 21:56 Dose: 6 mg Documented By: ASPEN Metoprolol Succinate (Metoprolol Succinate Er 100 Mg Tab.Er.24h) 200 mg PO DAILY [facility]; Protocol Last Admin: 06/17/24 15:31 Dose: 200 mg Documented By: FLY Mirabegron (Mirabegron 25 Mg Tab.Er.24h) 25 mg PO DAILY [facility] Multivitamins/Vitamin C (Multivitamin Tablet) 1 tab PO DAILY [facility] Ondansetron HCl (Ondansetron Hcl 4 Mg/2 Ml Vial) 4 mg IVPUSH Q8H PRN PRN Reason: Nausea and Vomiting Pharmacy Consult (Consult Rx Vancomycin Dosing) 1 each MISCELLANE DAILY PRN PRN Reason: Consult order Sodium Chloride (0.9 % Sodium Chloride Flush 3 Ml Syringe) 3 ml IVFLUSH QSHIFT [facility] Last Admin: 06/18/24 00:52 Dose: Not Given Documented By: ASPEN Non-Admin Reason: IV Running Valsartan (Valsartan 40 Mg Tablet) 20 mg PO BID [facility]; Protocol Last Admin: 06/17/24 21:56 Dose: 20 mg Documented By: ASPEN Warfarin Sodium (Warfarin Sodium 2 Mg Tablet) 2 mg PO SuTuThSa@1800 [facility] Warfarin Sodium (Warfarin Sodium 1 Mg Tablet) 1 mg PO MoWeFr@1800 [facility] Last Admin: 06/17/24 19:49 Dose: 1 mg Documented By: ANAND Comments: had to wait for medication arrival from pharmacy Labs 06/17/24 11:29 06/18/24 06:48 Labs: Laboratory Results - last 24 hr 06/17/24 06/17/24 06/17/24 10:45 11:29 12:25 MCV 88.1 MCH 28.9 MCHC 32.8 RDW 15.5 Plt Count 237 D MPV 9.1 L Immature Gran % (Auto) 0.6 H Neut % (Auto) 63.7 Lymph % (Auto) 15.2 L Dickens % (Auto) 18.4 H Eos % (Auto) 1.5 Baso % (Auto) 0.6 Lymph # (Auto) 1.2 Dickens # (Auto) 1.5 H Eos # (Auto) 0.1 Baso # (Auto) 0.1 Abs Immat Gran (auto) 0.05 H Absolute Neuts (auto) 5.2 Absolute Nucleated RBC 0.000 Nucleated RBC % (auto) 0.0 PT 27.3 H INR 2.2 H Anion Gap 16 Estim Creat Clear Calc 17.2 Estimated GFR 17 POC Glucose 128 H Random Glucose 154 H Estimat Average Glucose 169 Hemoglobin A1c % 7.5 H Lactic Acid Calcium 9.3 Magnesium 2.5 Total Bilirubin 0.7 Direct Bilirubin 0.3 AST 25 ALT 14 Alkaline Phosphatase 126 H Troponin I High Sens 9.2 D B-Natriuretic Peptide 476 H Total Protein 8.4 H Albumin 3.4 L Triglycerides 99 Cholesterol 114 LDL Cholesterol, Calc 60 HDL Cholesterol 35 L Lipase 54 Urine Color Yellow Urine Appearance Turbid Urine pH 5.5 Ur Specific [place] 1.010 Urine Protein 100 (2+) H Urine Glucose (UA) Negative Urine Ketones Negative Urine Blood Large (3+) H Urine Nitrite Negative Ur Leukocyte Esterase Large (3+) H Urine RBC 3-5 H Urine WBC >50 H Ur Squamous Epith Cells 0-2 Urine Bacteria 4+ Hyaline Casts 0-2 Influenza Type A (PCR) NEGATIVE Influenza Type B (PCR) NEGATIVE RSV RNA Qual (PCR) NEGATIVE SARS-CoV-2 RNA (RT-PCR) NEGATIVE 06/17/24 06/17/24 06/17/24 12:49 17:10 21:23 MCV MCH MCHC RDW Plt Count MPV Immature Gran % (Auto) Neut % (Auto) Lymph % (Auto) Dickens % (Auto) Eos % (Auto) Baso % (Auto) Lymph # (Auto) Dickens # (Auto) Eos # (Auto) Baso # (Auto) Abs Immat Gran (auto) Absolute Neuts (auto) Absolute Nucleated RBC Nucleated RBC % (auto) PT INR Anion Gap Estim Creat Clear Calc Estimated GFR POC Glucose 116 H 201 H Random Glucose Estimat Average Glucose Hemoglobin A1c % Lactic Acid 1.1 Calcium Magnesium Total Bilirubin Direct Bilirubin AST ALT Alkaline Phosphatase Troponin I High Sens B-Natriuretic Peptide Total Protein Albumin Triglycerides Cholesterol LDL Cholesterol, Calc HDL Cholesterol Lipase Urine Color Urine Appearance Urine pH Ur Specific [place] Urine Protein Urine Glucose (UA) Urine Ketones Urine Blood Urine Nitrite Ur Leukocyte Esterase Urine RBC Urine WBC Ur Squamous Epith Cells Urine Bacteria Hyaline Casts Influenza Type A (PCR) Influenza Type B (PCR) RSV RNA Qual (PCR) SARS-CoV-2 RNA (RT-PCR) Microbiology Microbiology Results: Microbiology 06/17/24 12:49 Blood Culture - Preliminary Blood - Venous Prelim: GPC Gram Stain only 06/17/24 12:49 Blood Culture - Preliminary Blood - Venous Prelim: GPC Gram Stain only Assessment and Plan (1) Acute UTI: Status: Acute (2) Gram-positive bacteremia: Status: Acute Plan 83-year-old female with a PMH significant for?chronic Coumadin, chronic systolic CHF (EF 45-50%, , MR), CAD, CKD 3, insulin-dependent type 2 diabetes, hypothyroidism, HTN, and neurogenic bladder with suprapubic catheter who presents to the ED with sudden onset confusion, difficulty speaking, and weakness being worked for stroke, has uti, and now gram posiitive cocci bacteremia Acute encephalpathy likely related sepsis, bacteremia and uti. -treat underlying infection uti--continue ceftriaxone, follow culture gram positive cocci bacteremia, source unknown -repeat culture -contineu vanco 06/18 -echo to rule endocarditis -id consult -repeat blood cultures Acute encephalopathy, aphasia, and weakness--could be related to above -unable to do cta d/t dorothy -mri -neuro consult -continue ASA, lipitoro, pt/ot, carotid us DOROTHY on CKD III, -IVF, repeat labs -Follow BMP Persistent AFib, rate controlled -Continue Coumadin, INR goal of 2-3 -Monitor INR HFrEF, compensated, hold lasix d/t dorothy Insulin-dependent type 2 diabetes -Sliding-scale insulin, Lantus -Continue Jardiance -Diabetic diet Hypothyroidism -Continue levothyroxine HTN -Continue amlodipine, valsartan Full Code DVT Prophylaxis: On Coumadin need for inpt; stroke work up, sepsis needing IV Abx and awaiting further Quality Stroke Does the patient have a stroke diagnosis?: No Reason for No Anti-thrombotic by Day Two: Contraindicated (Pt on Coumadin, not a candidate for tNK) VTE Prior VTE?: No VTE Risk Level:: Medical - moderate - high VTE Device Contraindication: Treatment Not Indicated VTE Drug Contraindication: N/A - Med Ordered
[2024-06-18 07:36] LABS: Glucose, Whole Blood 159 mg/dL (60-115)
[2024-06-18 07:37] VITALS: BP 108/57; PULSE 95; RESP 18; TEMP 36.2; O2SAT 99
[2024-06-18 07:43] LABS: INTERNATIONAL NORM RATIO 2.5 (0.9-1.1)
[2024-06-18 07:48] LABS: Anion Gap 15 (12-20); Blood Urea Nitrogen 46 mg/dL (9-16); Calcium 8.9 mg/dL (8.4-10.2); Carbon Dioxide 20 mmol/L (22-29); Chloride 109 mmol/L (96-108); Creatinine Clr Calc Pharmacy 20.3; Estimated Glomerular Filt Rate 20; Glucose Random 176 mg/dL (60-115); Potassium 4.7 mmol/L (3.3-5.1); Sodium 139 mmol/L (135-145)
[2024-06-18] MEDS: Multivitamin TABLET 1 TAB PO (07:51)
[2024-06-18] MEDS: Insulin Lispro 100 UNIT/ML 3 ML VIAL SUBCUT ×3 (07:51→20:04)
[2024-06-18] MEDS: amLODIPine Besylate 5 MG TABLET PO (07:52)
[2024-06-18] MEDS: Aspirin Enteric Coated 81 MG TABLET.DR PO (07:52)
[2024-06-18] MEDS: Valsartan 40 MG TABLET 20 MG PO ×2 (07:52→20:01)
[2024-06-18] MEDS: Mirabegron 25 MG TAB.ER.24H PO (07:52)
[2024-06-18] MEDS: 0.9 % Sodium Chloride Flush 3 ML SYRINGE IVFLUSH ×3 (07:53→20:04)
[2024-06-18] MEDS: Empagliflozin 10 MG TABLET PO (07:53)
[2024-06-18] MEDS: Metoprolol Succinate ER 100 MG TAB.ER.24H 200 MG PO (07:53)
--- NOTE | 2024-06-18 09:09 | PHA.PROG ---
Admission Date/Time: June 17, 2024 14:21 Indication: BACTEREMIA Weight in k.2 kg Serum Creatinine - Last 168 Hours 06/17/24 06/18/24 06/18/24 11:29 06:48 06:48 Creatinine 2.70 H 2.28 H Cancelled Estimated CrCl and GFR - Last 168 Hours 06/17/24 06/18/24 06/18/24 11:29 06:48 06:48 Estim Creat Clear Calc 17.2 20.3 Cancelled Estimated GFR 17 20 06/18/24 06:48 Estim Creat Clear Calc Estimated GFR Cancelled Vancomycin Loading Dose: 2000 Current Vancomycin Dosing Regimen: 500 Q 24 Vancomycin Monitoring using AUC goal of 400 - 600 range with trough as surrogate marker: 378 but monitoring renal function to maybe increase to 750 q 24h on 06/19 Date and Time for next Vancomycin Level to be drawn: 06/20 @ 0600 Pharmacist Comments on Vancomycin Plan: Vancomycin dosing will take advantage of [employer] as a clinical decision support tool that uses Bayesian modeling to calculate individual patient's pharmacokinetic parameters and forecast the patient's drug concentration time course with the target goal AUC 24 range of 400 - 600 mg/L/hr.
[2024-06-18 09:54] VITALS: PULSE 95; O2SAT 99
[2024-06-18 11:10] VITALS: BP 119/56; PULSE 95; RESP 20; TEMP 36.3; O2SAT 96
[2024-06-18 11:41] LABS: Glucose, Whole Blood 224 mg/dL (60-115)
[2024-06-18] MEDS: cefTRIAXone sodium 1 GM in 0.9 % Sodium Chloride 50 ML IV (13:37)
--- NOTE | 2024-06-18 14:11 | MHC.CM.PN ---
IMM 06/18/24 Dx ss cva UTI+ Bacteremia+ She lives with her dtr/HCP Sandra + son Omid. She requires assist with ADLS. She has [facility] in place. [facility] provides home services. They manage AC therapy. Suprapubic cath is changed by Dr Crews. DP [facility] + [facility] will resume services at discharge. A family member will provide transport home.
[2024-06-18 15:32] VITALS: BP 108/59; PULSE 97; RESP 18; TEMP 37.2; O2SAT 96
[2024-06-18 16:45] LABS: Glucose, Whole Blood 138 mg/dL (60-115)
--- NOTE | 2024-06-18 17:25 | W.PM.IDCN ---
History of Present Illness Data of Consult Service Date: 06/18/24 Requesting physician: Donnie Schaefer Primary Care Provider: Nano Delaney MD HPI Reason for consult: gram positive cocci,bacteremia She presents with weakness and right face weakness. She has no fever or chills now. She has gram positive cocci blood. Review of Systems Review of Systems: Yes all other systems are reviewed and are negative [facility] Past Medical History Medical History Hydronephrosis determined by ultrasound Permanent atrial fibrillation DOROTHY (acute kidney injury) Atrial fibrillation Neuropathy Neurogenic bladder CVA (cerebral vascular accident) Shingles Elevated cholesterol Myocardial infarction MRSA infection Hip pain Leg wound, left Varicose vein of leg Osteoarthritis of right hip Current use of anticoagulant therapy Recurrent UTI Atrial fibrillation PAF (paroxysmal atrial fibrillation) Congestive heart failure Urinary incontinence Hypothyroidism Diabetes Hypertension CKD (chronic kidney disease) CAD (coronary artery disease) Hypotonic neurogenic bladder Family History Family History Father Hx of angina pectoris Myocardial infarction Mother Ovarian cancer Stomach cancer Maternal Grandfather Hardening of the arteries of the heart Surgical History Surgical History History of left knee replacement History of right knee joint replacement H/O heart artery stent H/O nasal polypectomy History of tubal ligation History of tonsillectomy and adenoidectomy Hx of cholecystectomy Social History Social History Household Members: Unknown / Unable to assess Household Members Other:: daughter Housing: Unknown / Unable to assess Are you a primary pet care associate to a significant other at home: No Do you presently have visiting nurse or other home services: No Alcohol intake: never Comment: [facility] [place] Patient Tobacco Use Status: Never used Tobacco Smoked in Last 30 Days: No Second Hand Smoke Exposure: No Use of substances other than those prescribed or required for medical reasons: Unable to respond Currently Displaying Signs/Symptoms of Drug Intoxication Withdrawal: No Any prior treatment program specific to substance use: No Advance Directives: Yes Advance Directives on File: Yes Advance Directives Date on File: 08/27/22 Do you have a plan to hurt others: No Plan Recently lost weight without trying: Unsure How much weight loss: Unsure Nutrition Risks: No Nutritional Risk Patient : No : No service: No Current occupational status: retired Meds Allergies Allergy/AdvReac Type Severity Reaction Status Date / Time No Known Allergies Allergy Verified 06/17/24 10:57 [No Known Allergies*] Active Medications: Current Medications Acetaminophen (Acetaminophen 325 Mg Tablet) 650 mg PO Q6H PRN PRN Reason: Pain, Mild (Pain Scale 1-3), fever or headache Amlodipine Besylate (Amlodipine Besylate 5 Mg Tablet) 5 mg PO DAILY [facility]; Protocol Last Admin: 06/18/24 07:52 Dose: 5 mg Aspirin (Aspirin Enteric Coated 81 Mg Tablet.Dr) 81 mg PO DAILY [facility] Last Admin: 06/18/24 07:52 Dose: 81 mg Atorvastatin Calcium (Atorvastatin Calcium 40 Mg Tablet) 40 mg PO BEDTIME [facility] Last Admin: 06/17/24 21:57 Dose: 40 mg Benzonatate (Benzonatate 100 Mg Capsule) 100 mg PO TID PRN PRN Reason: Cough Calcium Carbonate (Calcium Carbonate 750 Mg Tab.Chew) 750 mg PO Q4H PRN PRN Reason: Heartburn Empagliflozin (Empagliflozin 10 Mg Tablet) 10 mg PO DAILY [facility] Last Admin: 06/18/24 07:53 Dose: 10 mg Glucose (Glucose Gel 15 Gm Gel..Gram.) 15 gm PO Q15M PRN; Protocol PRN Reason: per Hypoglycemia Standing Ord. Dextrose (D10) 250 mls @ 750 mls/hr IV Q15M PRN; Protocol PRN Reason: per Hypoglycemia Standing Ord. Vancomycin HCl 500 mg/ Sodium (Chloride) 110 mls @ 110 mls/hr IV Q24H [facility] Ceftriaxone Sodium 1 gm/ (Sodium Chloride) 50 mls @ 100 mls/hr IV Q24H [facility] Last Infusion: 06/18/24 14:07 Dose: Infused Insulin Glargine (Insulin Glargine,Hum.Rec.Anlog 100 Unit/Ml 10 Ml Vial) 17 unit SUBCUT BEDTIME [facility] Last Admin: 06/17/24 22:01 Dose: 17 unit Insulin Human Lispro (Insulin Lispro 100 Unit/Ml 3 Ml Vial) 0 unit SUBCUT QIDACHS [facility]; Protocol Last Admin: 06/18/24 17:02 Dose: Not Given Levothyroxine Sodium (Levothyroxine Sodium 25 Mcg Tablet) 25 mcg PO DAILY@0600 [facility] Last Admin: 06/18/24 06:29 Dose: 25 mcg Magnesium Hydroxide (Milk Of Magnesia 30 Ml Oral.Susp) 30 ml PO DAILY PRN PRN Reason: Constipation Melatonin (Melatonin 3 Mg Tablet) 6 mg PO BEDTIME PRN PRN Reason: Insomnia Last Admin: 06/17/24 21:56 Dose: 6 mg Metoprolol Succinate (Metoprolol Succinate Er 100 Mg Tab.Er.24h) 200 mg PO DAILY [facility]; Protocol Last Admin: 06/18/24 07:53 Dose: 200 mg Mirabegron (Mirabegron 25 Mg Tab.Er.24h) 25 mg PO DAILY [facility] Last Admin: 06/18/24 07:52 Dose: 25 mg Multivitamins/Vitamin C (Multivitamin Tablet) 1 tab PO DAILY [facility] Last Admin: 06/18/24 07:51 Dose: 1 tab Ondansetron HCl (Ondansetron Hcl 4 Mg/2 Ml Vial) 4 mg IVPUSH Q8H PRN PRN Reason: Nausea and Vomiting Pharmacy Consult (Consult Rx Vancomycin Dosing) 1 each MISCELLANE DAILY PRN PRN Reason: Consult order Sodium Chloride (0.9 % Sodium Chloride Flush 3 Ml Syringe) 3 ml IVFLUSH QSHIFT [facility] Last Admin: 06/18/24 07:53 Dose: 3 ml Valsartan (Valsartan 40 Mg Tablet) 20 mg PO BID [facility]; Protocol Last Admin: 06/18/24 07:52 Dose: 20 mg Warfarin Sodium (Warfarin Sodium 2 Mg Tablet) 2 mg PO SuTuThSa@1800 [facility] Warfarin Sodium (Warfarin Sodium 1 Mg Tablet) 1 mg PO MoWeFr@1800 [facility] Last Admin: 06/17/24 19:49 Dose: 1 mg Home Medications ?Medication ?Instructions ?Recorded ?Confirmed ?Last Taken ?Type levothyroxine 25 mcg tablet 25 mcg PO DAILY@0600 09/05/20 06/17/24 06/16/24 History aspirin 81 mg tablet,delayed 81 mg PO DAILY 09/11/21 06/17/24 06/16/24 History release pen needle, diabetic 32 gauge x #50 ea 12/31/21 06/09/24 06/16/24 History 5/32 (BD Cathy 2nd Gen Pen Needle) multivitamin (One Daily 1 tab PO DAILY 09/15/22 06/17/2424 History Multivitamin tablet) lancets 28 gauge (FreeStyle #100 ea 09/29/22 06/09/24 06/16/24 History Lancets) vitamins A,C,G-pnfj-drzyqi 2,148 1 tab PO BIDWM 05/09/23 06/17/24 06/16/24 History mcg-113 mg-45 mg-17.4 mg tablet (PreserVision AREDS) melatonin 5 mg tablet 10 mg PO BEDTIME PRN Sleep 06/04/23 06/17/24 03/14/24 History amlodipine 5 mg tablet 5 mg PO DAILY 11/13/23 06/17/24 06/16/24 History warfarin 1 mg tablet 1 mg PO MOWEFR 01/12/24 06/17/24 06/15/24 History insulin aspart U-100 100 unit/mL See Protocol subcut QIDACHS 03/15/24 06/17/24 06/16/24 History subcutaneous solution furosemide 20 mg tablet 20 mg PO BID 06/17/24 06/17/24 06/16/24 History valsartan 40 mg tablet 20 mg PO BID 06/17/24 06/17/24 06/16/24 History warfarin 1 mg tablet 2 mg PO SUTUTHSA 06/17/24 06/17/24 06/16/24 History Physical Exam Vital Signs: Vital Signs: Last Vital Signs Temp 98.9 F 06/18/24 15:32 Pulse 97 06/18/24 15:32 Resp 18 06/18/24 15:32 BP 108/59 L 06/18/24 15:32 Pulse Ox 96 06/18/24 15:32 O2 Del Method Room Air 06/18/24 15:32 BMI result Body Mass Index 32.0 Const: General: cooperative HEENT: Head: Yes normal to inspection Face and sinus: Yes normal facial exam Mouth: Normal oral and palatal mucosa present Teeth and gingiva: dentition normal Eyes: General: appearance normal, both eyes and all related structures Pupils: Equal, round and reactive pupils present Resp: Effort & Inspection: normal respiratory effort Cardio: Rate: regular rate Rhythm: regular rhythm GI: Palpation (GI): Soft to palpation and nontender : General: Yes no CVA tenderness Back/Spine/Pelvis: Back: no CVA tenderness Skin: General skin exam: no rashes or lesions noted Neuro: General: moves all extremities Cranial nerves: Yes Equal, round and reactive pupils present Extrem: General: Yes normal to inspection Psych: Appearance: grossly normal Results Labs 06/17/24 11:29 06/18/24 06:48 Labs: BMP 06/18/24 06/18/24 06:48 06:48 Sodium 139 Potassium 4.7 Chloride 109 H Carbon Dioxide 20 L BUN 46 H Creatinine 2.28 H Cancelled Calcium 8.9 Microbiology Microbiology Results: Microbiology 06/17/24 Unknown Urine Catheterized - Healy Catheter Urine Culture - Final 06/17/24 12:49 Blood - Venous Blood Culture - Preliminary Prelim: GPC Gram Stain only 06/17/24 12:49 Blood - Venous Blood Culture - Preliminary Prelim: GPC Gram Stain only Assessment and Plan (1) Gram-positive bacteremia: Status: Acute (2) Encephalopathy acute: Status: Acute (3) Aphasia: Status: Acute Plan She has possible strep or staph bacteremia. She has exudate in Haely. There is no definite organism in urine. There is possible UTI. Would change Vancomycin to Daptomycin if worsens Stop Ceftriaxone at this time. If MSSA Kefzol 1 g iv every 12 hours or as determined by pharmacy. Echo if not done Await brain MRI.
[2024-06-18] MEDS: Warfarin Sodium 2 MG TABLET PO (17:43)
[2024-06-18 19:34] VITALS: BP 109/53; PULSE 104; RESP 18; TEMP 36.8; O2SAT 97
[2024-06-18] MEDS: Atorvastatin Calcium 40 MG TABLET PO (20:01)
[2024-06-18] MEDS: Melatonin 3 MG TABLET 6 MG PO (20:01)
[2024-06-18 20:02] LABS: Glucose, Whole Blood 223 mg/dL (60-115)
[2024-06-18] MEDS: Insulin Glargine,Hum.rec.anlog 100 UNIT/ML 10 ML VIAL 17 UNIT SUBCUT (20:03)
[2024-06-18 20:54] LABS: Glucose, Whole Blood 219 mg/dL (60-115)
[2024-06-19] VITALS (7 sets, daily range): BP systolic 104–132; BP diastolic 57–72; PULSE 71–97; RESP 17–20; TEMP 35.9–36.6; O2SAT 95–100
[2024-06-19] MEDS: Levothyroxine Sodium 25 MCG TABLET PO (06:01)
[2024-06-19] MEDS: Milk of Magnesia 30 ML ORAL.SUSP PO (06:03)
[2024-06-19 06:18] LABS: INTERNATIONAL NORM RATIO 2.6 (0.9-1.1); Prothrombin Time 31.6 SEC (11.1-13.3)
[2024-06-19 06:26] LABS: Anion Gap 13 (12-20); Blood Urea Nitrogen 42 mg/dL (9-16); Calcium 8.9 mg/dL (8.4-10.2); Carbon Dioxide 19 mmol/L (22-29); Chloride 109 mmol/L (96-108); Creatinine Clr Calc Pharmacy 21.5; Estimated Glomerular Filt Rate 22; Glucose Random 173 mg/dL (60-115); Potassium 4.5 mmol/L (3.3-5.1); Sodium 136 mmol/L (135-145)
[2024-06-19 07:51] LABS: Glucose, Whole Blood 196 mg/dL (60-115)
[2024-06-19] MEDS: Mirabegron 25 MG TAB.ER.24H PO (08:37)
[2024-06-19] MEDS: Empagliflozin 10 MG TABLET PO (08:37)
[2024-06-19] MEDS: Valsartan 40 MG TABLET 20 MG PO ×2 (08:37→21:40)
[2024-06-19] MEDS: Insulin Lispro 100 UNIT/ML 3 ML VIAL SUBCUT ×3 (08:37→16:57)
[2024-06-19] MEDS: Multivitamin TABLET 1 TAB PO (08:37)
[2024-06-19] MEDS: amLODIPine Besylate 5 MG TABLET PO (08:37)
[2024-06-19] MEDS: Metoprolol Succinate ER 100 MG TAB.ER.24H 200 MG PO (08:37)
[2024-06-19] MEDS: Aspirin Enteric Coated 81 MG TABLET.DR PO (08:37)
[2024-06-19] MEDS: 0.9 % Sodium Chloride Flush 3 ML SYRINGE IVFLUSH ×3 (08:38→21:41)
[2024-06-19] MEDS: Acetaminophen 325 MG TABLET 650 MG PO (08:41)
--- NOTE | 2024-06-19 09:13 | HE.PHANOTE ---
Level ordered chase 06/20/24 after 2 gram load and 1 dose of 500 mg. May potentially be able to increase to 750 mg q 24 hours depending on level. [facility] unable to provide rec due to patient parameters, will need to monitor levels closely due to advanced age and renal function
--- NOTE | 2024-06-19 10:11 | P.PNIM_ITS ---
Subjective Subjective Date of Service: 06/19/24 Interval History: f/u sepsis, bacteremia, encephalopathy afebrile, still feels ill, constipated Physical Exam 2 Vital Signs: Vital Signs: Last Vital Signs Temp 97.2 F 06/19/24 07:43 Pulse 91 06/19/24 07:43 Resp 17 06/19/24 07:43 BP 132/71 06/19/24 07:43 Pulse Ox 99 06/19/24 07:43 O2 Del Method Room Air 06/19/24 07:43 BMI result Body Mass Index 32.0 General: AO X 3, no acute distress Resp: CTA bilateral CVS: S1,S2,RRR GI: +BS, NT, no distention Skin: No rash Neuro: motor grossly intact Psych: appropriate affect Objective Data Active Medications Acetaminophen (Acetaminophen 325 Mg Tablet) 650 mg PO Q6H PRN PRN Reason: Pain, Mild (Pain Scale 1-3), fever or headache Last Admin: 06/19/24 08:41 Dose: 650 mg Documented By: MAR Amlodipine Besylate (Amlodipine Besylate 5 Mg Tablet) 5 mg PO DAILY [facility]; Protocol Last Admin: 06/19/24 08:37 Dose: 5 mg Documented By: MAR Aspirin (Aspirin Enteric Coated 81 Mg Tablet.Dr) 81 mg PO DAILY [facility] Last Admin: 06/19/24 08:37 Dose: 81 mg Documented By: MAR Atorvastatin Calcium (Atorvastatin Calcium 40 Mg Tablet) 40 mg PO BEDTIME [facility] Last Admin: 06/18/24 20:01 Dose: 40 mg Documented By: ENOC Benzonatate (Benzonatate 100 Mg Capsule) 100 mg PO TID PRN PRN Reason: Cough Calcium Carbonate (Calcium Carbonate 750 Mg Tab.Chew) 750 mg PO Q4H PRN PRN Reason: Heartburn Empagliflozin (Empagliflozin 10 Mg Tablet) 10 mg PO DAILY [facility] Last Admin: 06/19/24 08:37 Dose: 10 mg Documented By: MAR Glucose (Glucose Gel 15 Gm Gel..Gram.) 15 gm PO Q15M PRN; Protocol PRN Reason: per Hypoglycemia Standing Ord. Dextrose (D10) 250 mls @ 750 mls/hr IV Q15M PRN; Protocol PRN Reason: per Hypoglycemia Standing Ord. Vancomycin HCl 500 mg/ Sodium (Chloride) 110 mls @ 110 mls/hr IV Q24H [facility] Insulin Glargine (Insulin Glargine,Hum.Rec.Anlog 100 Unit/Ml 10 Ml Vial) 17 unit SUBCUT BEDTIME [facility] Last Admin: 06/18/24 20:03 Dose: 17 unit Documented By: ENOC Insulin Human Lispro (Insulin Lispro 100 Unit/Ml 3 Ml Vial) 0 unit SUBCUT QIDACHS [facility]; Protocol Last Admin: 06/19/24 08:37 Dose: 2 unit Documented By: MAR Levothyroxine Sodium (Levothyroxine Sodium 25 Mcg Tablet) 25 mcg PO DAILY@0600 [facility] Last Admin: 06/19/24 06:01 Dose: 25 mcg Documented By: ENOC Magnesium Hydroxide (Milk Of Magnesia 30 Ml Oral.Susp) 30 ml PO DAILY PRN PRN Reason: Constipation Last Admin: 06/19/24 06:03 Dose: 30 ml Documented By: ENOC Melatonin (Melatonin 3 Mg Tablet) 6 mg PO BEDTIME PRN PRN Reason: Insomnia Last Admin: 06/18/24 20:01 Dose: 6 mg Documented By: ENOC Metoprolol Succinate (Metoprolol Succinate Er 100 Mg Tab.Er.24h) 200 mg PO DAILY [facility]; Protocol Last Admin: 06/19/24 08:37 Dose: 200 mg Documented By: MAR Mirabegron (Mirabegron 25 Mg Tab.Er.24h) 25 mg PO DAILY [facility] Last Admin: 06/19/24 08:37 Dose: 25 mg Documented By: MAR Multivitamins/Vitamin C (Multivitamin Tablet) 1 tab PO DAILY [facility] Last Admin: 06/19/24 08:37 Dose: 1 tab Documented By: MAR Ondansetron HCl (Ondansetron Hcl 4 Mg/2 Ml Vial) 4 mg IVPUSH Q8H PRN PRN Reason: Nausea and Vomiting Pharmacy Consult (Consult Rx Vancomycin Dosing) 1 each MISCELLANE DAILY PRN PRN Reason: Consult order Sodium Chloride (0.9 % Sodium Chloride Flush 3 Ml Syringe) 3 ml IVFLUSH QSHIFT [facility] Last Admin: 06/19/24 08:38 Dose: 3 ml Documented By: MAR Valsartan (Valsartan 40 Mg Tablet) 20 mg PO BID [facility]; Protocol Last Admin: 06/19/24 08:37 Dose: 20 mg Documented By: MAR Warfarin Sodium (Warfarin Sodium 2 Mg Tablet) 2 mg PO SuTuThSa@1800 [facility] Last Admin: 06/18/24 17:43 Dose: 2 mg Documented By: MAR Warfarin Sodium (Warfarin Sodium 1 Mg Tablet) 1 mg PO MoWeFr@1800 [facility] Last Admin: 06/17/24 19:49 Dose: 1 mg Documented By: ANAND Comments: had to wait for medication arrival from pharmacy Labs 06/17/24 11:29 06/19/24 05:58 Labs: Laboratory Results - last 24 hr 06/18/24 06/18/24 06/18/24 11:07 16:41 19:58 Hold Purple Top PT INR Anion Gap Estim Creat Clear Calc Estimated GFR POC Glucose 224 H 138 H 223 H Random Glucose Calcium 06/18/24 06/19/24 06/19/24 20:40 05:58 07:47 Hold Purple Top SEE NOTE PT 31.6 H INR 2.6 H Anion Gap 13 Estim Creat Clear Calc 21.5 Estimated GFR 22 POC Glucose 219 H 196 H Random Glucose 173 H Calcium 8.9 Microbiology Microbiology Results: Microbiology 06/17/24 12:49 Blood Culture - Preliminary Blood - Venous Gram positive cocci 06/17/24 12:49 Blood Culture - Preliminary Blood - Venous Gram positive cocci 06/17/24 Unknown Urine Culture - Final Urine Catheterized - Healy Catheter Assessment and Plan (1) Acute UTI: Status: Acute (2) Gram-positive bacteremia: Status: Acute Plan 83-year-old female with a PMH significant for?chronic Coumadin, chronic systolic CHF (EF 45-50%, , MR), CAD, CKD 3, insulin-dependent type 2 diabetes, hypothyroidism, HTN, and neurogenic bladder with suprapubic catheter who presents to the ED with sudden onset confusion, difficulty speaking, and weakness being worked for stroke, has uti, and now gram posiitive cocci bacteremia Acute encephalpathy likely related sepsis, bacteremia and uti., cva ruled with CT and MRI -treat underlying infection uti--negative culture ceftriaxone stopped gram positive cocci in clusters bacteremia, source unknown -repeat culture 06/18 negative x 24 hrs -contineu vanco 06/18, if worsening Dapto, if MSSA then kefzol -echo to rule endocarditis -id input noted Acute encephalopathy, aphasia, and weakness--likely from acute infection, CT and MRI no cva DOROTHY on CKD III, slightly better -IVF, repeat labs -Follow BMP Chronic metabolic acidosis--d/t CKD, stable, monitor, bicab if worse Persistent AFib, rate controlled -Continue Coumadin, INR goal of 2-3 -Monitor INR HFrEF, compensated, hold lasix d/t dorothy Insulin-dependent type 2 diabetes -Sliding-scale insulin, Lantus -Continue Jardiance -Diabetic diet Hypothyroidism -Continue levothyroxine HTN -Continue amlodipine, valsartan Full Code DVT Prophylaxis: On Coumadin need for inpt; stroke work up, sepsis needing IV Abx and awaiting further Quality Stroke Does the patient have a stroke diagnosis?: No Reason for No Anti-thrombotic by Day Two: Contraindicated (Pt on Coumadin, not a candidate for tNK) VTE Prior VTE?: No VTE Risk Level:: Medical - moderate - high VTE Device Contraindication: Treatment Not Indicated VTE Drug Contraindication: N/A - Med Ordered
[2024-06-19] MEDS: vancomycin HCL 500 MG in 0.9 % Sodium Chloride 100 ML 110 MG IV (10:48)
[2024-06-19 11:36] LABS: Glucose, Whole Blood 172 mg/dL (60-115)
--- NOTE | 2024-06-19 12:05 | PM.NEUROCN ---
History of Present Illness Data of Consult Service Date: 06/19/24 Primary Care Provider: Nano Delaney MD [facility] Reason for consult: Encephalopathy vs stroke This is an 83-year-old female with a h/o chronic systolic CHF (EF 45-50%, , MR), CAD, CKD 3, insulin-dependent type 2 diabetes, hypothyroidism, HTN, and neurogenic bladder with suprapubic catheter, currently on coumafin, presented to the ED with sudden onset confusion, difficulty speaking, and weakness. Patient is alert and oriented to self and place only at time of interview and exam. Patient does not know why she is in the hospital or what she is being evaluated for. She apparently felt unwell while in the bathroom on the morning of admission and called out for her daughter for help. Per EMS patient was experiencing right-sided weakness and difficulty speaking with slurred language, stuttering, and difficulty word finding. EMS also reports right-sided deficits including facial droop. Patient with noted to have delayed responses, difficulty word finding, and stuttering. Of note, cardiac monitoring while in the ED caught a run of 6 beats of V-tach. Patient was asymptomatic without chest pain/pressure. Her MRI shows no acute intracranial process or infarct. Diffuse brain parenchymal volume loss with extensive chronic white matter microangiopathy. Chronic left parietal lobe infarct. Carotid doppler is negative. She does have a UTI [facility] Past Medical History Medical History Hydronephrosis determined by ultrasound Permanent atrial fibrillation DOROTHY (acute kidney injury) Atrial fibrillation Neuropathy Neurogenic bladder CVA (cerebral vascular accident) Shingles Elevated cholesterol Myocardial infarction MRSA infection Hip pain Leg wound, left Varicose vein of leg Osteoarthritis of right hip Current use of anticoagulant therapy Recurrent UTI Atrial fibrillation PAF (paroxysmal atrial fibrillation) Congestive heart failure Urinary incontinence Hypothyroidism Diabetes Hypertension CKD (chronic kidney disease) CAD (coronary artery disease) Hypotonic neurogenic bladder Family History Family History Father Hx of angina pectoris Myocardial infarction Mother Ovarian cancer Stomach cancer Maternal Grandfather Hardening of the arteries of the heart Surgical History Surgical History History of left knee replacement History of right knee joint replacement H/O heart artery stent H/O nasal polypectomy History of tubal ligation History of tonsillectomy and adenoidectomy Hx of cholecystectomy Social History Social History Household Members: Unknown / Unable to assess Household Members Other:: daughter Housing: Unknown / Unable to assess Are you a primary healthcare facility administrator to a significant other at home: No Do you presently have visiting nurse or other home services: No Alcohol intake: never Comment: [facility] Patient Tobacco Use Status: Never used Tobacco Smoked in Last 30 Days: No Second Hand Smoke Exposure: No Use of substances other than those prescribed or required for medical reasons: Unable to respond Currently Displaying Signs/Symptoms of Drug Intoxication Withdrawal: No Any prior treatment program specific to substance use: No Advance Directives: Yes Advance Directives on File: Yes Advance Directives Date on File: 08/27/22 Do you have a plan to hurt others: No Plan Recently lost weight without trying: Unsure How much weight loss: Unsure Nutrition Risks: No Nutritional Risk Patient : No : No service: No Current occupational status: retired [employer] Allergies Allergy/AdvReac Type Severity Reaction Status Date / Time No Known Allergies Allergy Verified 06/17/24 10:57 [No Known Allergies*] Active Medications: Current Medications Acetaminophen (Acetaminophen 325 Mg Tablet) 650 mg PO Q6H PRN PRN Reason: Pain, Mild (Pain Scale 1-3), fever or headache Last Admin: 06/19/24 08:41 Dose: 650 mg Amlodipine Besylate (Amlodipine Besylate 5 Mg Tablet) 5 mg PO DAILY [facility]; Protocol Last Admin: 06/19/24 08:37 Dose: 5 mg Aspirin (Aspirin Enteric Coated 81 Mg Tablet.Dr) 81 mg PO DAILY [facility] Last Admin: 06/19/24 08:37 Dose: 81 mg Atorvastatin Calcium (Atorvastatin Calcium 40 Mg Tablet) 40 mg PO BEDTIME [facility] Last Admin: 06/18/24 20:01 Dose: 40 mg Benzonatate (Benzonatate 100 Mg Capsule) 100 mg PO TID PRN PRN Reason: Cough Calcium Carbonate (Calcium Carbonate 750 Mg Tab.Chew) 750 mg PO Q4H PRN PRN Reason: Heartburn Empagliflozin (Empagliflozin 10 Mg Tablet) 10 mg PO DAILY [facility] Last Admin: 06/19/24 08:37 Dose: 10 mg Glucose (Glucose Gel 15 Gm Gel..Gram.) 15 gm PO Q15M PRN; Protocol PRN Reason: per Hypoglycemia Standing Ord. Dextrose (D10) 250 mls @ 750 mls/hr IV Q15M PRN; Protocol PRN Reason: per Hypoglycemia Standing Ord. Vancomycin HCl 500 mg/ Sodium (Chloride) 110 mls @ 110 mls/hr IV Q24H [facility] Last Infusion: 06/19/24 11:48 Dose: Infused Insulin Glargine (Insulin Glargine,Hum.Rec.Anlog 100 Unit/Ml 10 Ml Vial) 17 unit SUBCUT BEDTIME [facility] Last Admin: 06/18/24 20:03 Dose: 17 unit Insulin Human Lispro (Insulin Lispro 100 Unit/Ml 3 Ml Vial) 0 unit SUBCUT QIDACHS [facility]; Protocol Last Admin: 06/19/24 11:47 Dose: 2 unit Levothyroxine Sodium (Levothyroxine Sodium 25 Mcg Tablet) 25 mcg PO DAILY@0600 [facility] Last Admin: 06/19/24 06:01 Dose: 25 mcg Magnesium Hydroxide (Milk Of Magnesia 30 Ml Oral.Susp) 30 ml PO DAILY PRN PRN Reason: Constipation Last Admin: 06/19/24 06:03 Dose: 30 ml Melatonin (Melatonin 3 Mg Tablet) 6 mg PO BEDTIME PRN PRN Reason: Insomnia Last Admin: 06/18/24 20:01 Dose: 6 mg Metoprolol Succinate (Metoprolol Succinate Er 100 Mg Tab.Er.24h) 200 mg PO DAILY [facility]; Protocol Last Admin: 06/19/24 08:37 Dose: 200 mg Mirabegron (Mirabegron 25 Mg Tab.Er.24h) 25 mg PO DAILY [facility] Last Admin: 06/19/24 08:37 Dose: 25 mg Multivitamins/Vitamin C (Multivitamin Tablet) 1 tab PO DAILY [facility] Last Admin: 06/19/24 08:37 Dose: 1 tab Ondansetron HCl (Ondansetron Hcl 4 Mg/2 Ml Vial) 4 mg IVPUSH Q8H PRN PRN Reason: Nausea and Vomiting Pharmacy Consult (Consult Rx Vancomycin Dosing) 1 each MISCELLANE DAILY PRN PRN Reason: Consult order Polyethylene Glycol (Polyethylene Glycol 3350 17 Gm Powd.Pack) 17 gm PO DAILY PRN PRN Reason: Constipation Sodium Chloride (0.9 % Sodium Chloride Flush 3 Ml Syringe) 3 ml IVFLUSH QSHIFT [facility] Last Admin: 06/19/24 08:38 Dose: 3 ml Valsartan (Valsartan 40 Mg Tablet) 20 mg PO BID [facility]; Protocol Last Admin: 06/19/24 08:37 Dose: 20 mg Warfarin Sodium (Warfarin Sodium 2 Mg Tablet) 2 mg PO SuTuThSa@1800 [facility] Last Admin: 06/18/24 17:43 Dose: 2 mg Warfarin Sodium (Warfarin Sodium 1 Mg Tablet) 1 mg PO MoWeFr@1800 [facility] Last Admin: 06/17/24 19:49 Dose: 1 mg Home Medications ?Medication ?Instructions ?Recorded ?Confirmed ?Last Taken ?Type levothyroxine 25 mcg tablet 25 mcg PO DAILY@0600 09/05/20 06/17/24 06/16/24 History aspirin 81 mg tablet,delayed 81 mg PO DAILY 09/11/21 06/17/24 06/16/24 History release pen needle, diabetic 32 gauge x #50 ea 12/31/21 06/09/24 06/16/24 History (BD Cathy 2nd Gen Pen Needle) multivitamin (One Daily 1 tab PO DAILY 09/15/22 06/17/24 06/16/24 History Multivitamin tablet) lancets 28 gauge (FreeStyle #100 ea 09/29/22 06/09/24 06/16/24 History Lancets) vitamins A,C,L-xjyy-cuxwqy 2,148 1 tab PO BIDWM 05/09/23 06/17/24 06/16/24 History mcg-113 mg-45 mg-17.4 mg tablet (PreserVision AREDS) melatonin 5 mg tablet 10 mg PO BEDTIME PRN Sleep 06/04/23 06/17/24 03/14/24 History amlodipine 5 mg tablet 5 mg PO DAILY 11/13/23 06/17/24 06/16/24 History warfarin 1 mg tablet 1 mg PO MOWEFR 01/12/24 06/17/24 06/15/24 History insulin aspart U-100 100 unit/mL See Protocol subcut QIDACHS 03/15/24 06/17/24 06/16/24 History subcutaneous solution furosemide 20 mg tablet 20 mg PO BID 06/17/24 06/17/24 06/16/24 History valsartan 40 mg tablet 20 mg PO BID 06/17/24 06/17/24 06/16/24 History warfarin 1 mg tablet 2 mg PO GABINOUTHSA 06/17/24 06/17/24 06/16/24 History Physical Exam Vital Signs: Vital Signs: Last Vital Signs Temp 96.6 F L 06/19/24 11:15 Pulse 88 06/19/24 11:15 Resp 20 06/19/24 11:15 BP 114/57 L 06/19/24 11:15 Pulse Ox 100 06/19/24 11:15 O2 Del Method Room Air 06/19/24 11:15 BMI result Body Mass Index 32.0 Neuro: Other: She's alert, oriented partially cooperative with exam with fluent speech no dysphasia or dysarthria. She is oriented to person, place, month but thought it was 2022 and didn't know the exact date but says that she does not keep track of this. She lives with her son and daughter and is fairly independent but needs some help with bathing. She gets Meals on Wheels. Cranial nerves II through XII are normal with no facial weakness. Speech and language functions are intact. Muscle tone and strength are normal. Reflexes symmetrical. Plantar response are flexor. Neck is supple Results Labs 06/17/24 11:29 06/19/24 05:58 Labs: BMP 06/19/24 05:58 Sodium 136 Potassium 4.5 Chloride 109 H Carbon Dioxide 19 L BUN 42 H Creatinine 2.16 H Calcium 8.9 Microbiology Microbiology Results: Microbiology 06/18/24 08:25 Blood - Venous Blood Culture - Preliminary No growth after 24 hours. 06/18/24 08:25 Blood - Venous Blood Culture - Preliminary No growth after 24 hours. 06/17/24 12:49 Blood - Venous Blood Culture - Preliminary Gram positive cocci 06/17/24 12:49 Blood - Venous Blood Culture - Preliminary Gram positive cocci 06/17/24 Unknown Urine Catheterized - Healy Catheter Urine Culture - Final Assessment and Plan (1) Acute UTI: Status: Acute (2) Encephalopathy acute: Status: Acute Infection related encephalopathy with no evidence of acute stroke. She has extensive cerebral microvascular disease that might account for mild cognitive impairment at baseline. She probably decompensated related to bacteremia and UTI. No evidence of vascular disease in the carotid ultrasound. Recommendation: Treat UTI. Expect her to return to her baseline mental status once UTI clears. No further neurological workup is necessary Procedures Date of Service Date of Service: 06/19/24
[2024-06-19 16:13] LABS: Glucose, Whole Blood 164 mg/dL (60-115)
[2024-06-19] MEDS: Warfarin Sodium 2 MG TABLET PO (16:57)
[2024-06-19 20:09] LABS: Glucose, Whole Blood 142 mg/dL (60-115)
[2024-06-19] MEDS: Atorvastatin Calcium 40 MG TABLET PO (21:40)
[2024-06-19] MEDS: Insulin Glargine,Hum.rec.anlog 100 UNIT/ML 10 ML VIAL 17 UNIT SUBCUT ×2 (21:41→21:46)
[2024-06-19] MEDS: Melatonin 3 MG TABLET 6 MG PO (21:43)
[2024-06-20 00:19] LABS: Prothrombin Time Whole Bld POC 27.2 sec (11.1-13.5); ~PT, ~INR - Anti Coag Clinic 2.3 (0.9-1.1)
[2024-06-20 03:09] VITALS: BP 116/80; PULSE 88; RESP 18; TEMP 36.7; O2SAT 98
[2024-06-20] MEDS: Levothyroxine Sodium 25 MCG TABLET PO (06:25)
[2024-06-20 06:51] LABS: INTERNATIONAL NORM RATIO 2.6 (0.9-1.1); Prothrombin Time 31.6 SEC (11.1-13.3)
--- NOTE | 2024-06-20 07:06 | PC.NURSE ---
Patient assessed overnight and is A/O x3 speech is clear no facial droop noted. Patient moves all extremities moderate strength . Patient complains of dizziness that worsens with repositioning. She denies numbness and tingling, headache, chest pain, sob along with blurry and double vision . She takes medications whole with no issues. Suprapubic cath in place out id thick and white. Patient slept throughout the night please see Parudi for more details.
[2024-06-20 07:07] LABS: Anion Gap 15 (12-20); Blood Urea Nitrogen 31 mg/dL (9-16); Calcium 9.4 mg/dL (8.4-10.2); Carbon Dioxide 20 mmol/L (22-29); Chloride 108 mmol/L (96-108); Creatinine Clr Calc Pharmacy 23.8; Estimated Glomerular Filt Rate 25; Glucose Random 140 mg/dL (60-115); Potassium 4.5 mmol/L (3.3-5.1); Sodium 138 mmol/L (135-145)
[2024-06-20 07:19] LABS: Vancomycin Random 14.5 mcg/mL (15-20)
[2024-06-20 08:00] VITALS: BP 115/59; PULSE 90; RESP 18; TEMP 36.3; O2SAT 94
--- NOTE | 2024-06-20 08:02 | HE.PHANOTE ---
RE: VANCO DOSING Random came back as 14.5. Renal function is improving, continue at dose of 500 mg q24h, next random is scheduled for 06/21/24 @0600.
[2024-06-20 08:35] LABS: Glucose, Whole Blood 189 mg/dL (60-115)
[2024-06-20] MEDS: 0.9 % Sodium Chloride Flush 3 ML SYRINGE IVFLUSH ×3 (08:38→21:02)
[2024-06-20] MEDS: Valsartan 40 MG TABLET 20 MG PO ×2 (08:39→21:01)
[2024-06-20] MEDS: Mirabegron 25 MG TAB.ER.24H PO (08:39)
[2024-06-20] MEDS: Metoprolol Succinate ER 100 MG TAB.ER.24H 200 MG PO (08:40)
[2024-06-20] MEDS: amLODIPine Besylate 5 MG TABLET PO (08:40)
[2024-06-20] MEDS: Multivitamin TABLET 1 TAB PO (08:40)
[2024-06-20] MEDS: Aspirin Enteric Coated 81 MG TABLET.DR PO (08:41)
[2024-06-20] MEDS: Empagliflozin 10 MG TABLET PO (08:44)
[2024-06-20] MEDS: vancomycin HCL 500 MG in 0.9 % Sodium Chloride 100 ML 100 MG IV (08:49)
--- NOTE | 2024-06-20 10:46 | MHC.CM.PN ---
Per rounds, pt is not yet ready for DC, she may require fpc ABX. CM met with pt. to discuss PT rec. for [facility]. Pt. said that she does not want to go to [facility], she has been before, more than once. She wants to go home. She said her dtr and son live with her and she has 2 other children who live nearby. CM to follow for DC needs.
[2024-06-20 10:57] VITALS: BP 135/71; PULSE 95; RESP 18; TEMP 36.4; O2SAT 97
--- NOTE | 2024-06-20 11:32 | HO.PM.IMPN ---
Subjective Subjective Date of Service: 06/20/24 Interval History: f/u on bacteremia, encephalopathy overall is better today Physical Exam Vital Signs: Vital Signs: Last Vital Signs Temp 97.6 F 06/20/24 10:57 Pulse 95 06/20/24 10:57 Resp 18 06/20/24 10:57 BP 135/71 06/20/24 10:57 Pulse Ox 97 06/20/24 10:57 O2 Del Method Room Air 06/20/24 10:57 BMI result Body Mass Index 32.0 General: AO X 3, no acute distress Resp: CTA bilateral CVS: S1,S2,RRR GI: +BS, NT, no distention Skin: No rash Neuro: motor grossly intact Psych: appropriate affect Objective Data Active Medications Acetaminophen (Acetaminophen 325 Mg Tablet) 650 mg PO Q6H PRN PRN Reason: Pain, Mild (Pain Scale 1-3), fever or headache Last Admin: 06/19/24 08:41 Dose: 650 mg Documented By: MAR Amlodipine Besylate (Amlodipine Besylate 5 Mg Tablet) 5 mg PO DAILY [facility]; Protocol Last Admin: 06/20/24 08:40 Dose: 5 mg Documented By: NASRA Aspirin (Aspirin Enteric Coated 81 Mg Tablet.Dr) 81 mg PO DAILY [facility] Last Admin: 06/20/24 08:41 Dose: 81 mg Documented By: NASRA Atorvastatin Calcium (Atorvastatin Calcium 40 Mg Tablet) 40 mg PO BEDTIME [facility] Last Admin: 06/19/24 21:40 Dose: 40 mg Documented By: MELA Benzonatate (Benzonatate 100 Mg Capsule) 100 mg PO TID PRN PRN Reason: Cough Calcium Carbonate (Calcium Carbonate 750 Mg Tab.Chew) 750 mg PO Q4H PRN PRN Reason: Heartburn Empagliflozin (Empagliflozin 10 Mg Tablet) 10 mg PO DAILY [facility] Last Admin: 06/20/24 08:44 Dose: 10 mg Documented By: NASRA Glucose (Glucose Gel 15 Gm Gel..Gram.) 15 gm PO Q15M PRN; Protocol PRN Reason: per Hypoglycemia Standing Ord. Dextrose (D10) 250 mls @ 750 mls/hr IV Q15M PRN; Protocol PRN Reason: per Hypoglycemia Standing Ord. Vancomycin HCl 500 mg/ Sodium (Chloride) 110 mls @ 110 mls/hr IV Q24H [facility] Last Admin: 06/20/24 08:49 Dose: 100 mls/hr Documented By: NASRA Insulin Glargine (Insulin Glargine,Hum.Rec.Anlog 100 Unit/Ml 10 Ml Vial) 17 unit SUBCUT BEDTIME [facility] Last Admin: 06/19/24 21:46 Dose: 17 unit Documented By: MELA Insulin Human Lispro (Insulin Lispro 100 Unit/Ml 3 Ml Vial) 0 unit SUBCUT QIDACHS [facility]; Protocol Last Admin: 06/20/24 08:41 Dose: Not Given Documented By: NASRA Non-Admin Reason: No Insulin Coverage Levothyroxine Sodium (Levothyroxine Sodium 25 Mcg Tablet) 25 mcg PO DAILY@0600 [facility] Last Admin: 06/20/24 06:25 Dose: 25 mcg Documented By: MELA Magnesium Hydroxide (Milk Of Magnesia 30 Ml Oral.Susp) 30 ml PO DAILY PRN PRN Reason: Constipation Last Admin: 06/19/24 06:03 Dose: 30 ml Documented By: ENOC Melatonin (Melatonin 3 Mg Tablet) 6 mg PO BEDTIME PRN PRN Reason: Insomnia Last Admin: 06/19/24 21:43 Dose: 6 mg Documented By: MELA Metoprolol Succinate (Metoprolol Succinate Er 100 Mg Tab.Er.24h) 200 mg PO DAILY [facility]; Protocol Last Admin: 06/20/24 08:40 Dose: 200 mg Documented By: NASRA Mirabegron (Mirabegron 25 Mg Tab.Er.24h) 25 mg PO DAILY [facility] Last Admin: 06/20/24 08:39 Dose: 25 mg Documented By: NASRA Multivitamins/Vitamin C (Multivitamin Tablet) 1 tab PO DAILY [facility] Last Admin: 06/20/24 08:40 Dose: 1 tab Documented By: NASRA Ondansetron HCl (Ondansetron Hcl 4 Mg/2 Ml Vial) 4 mg IVPUSH Q8H PRN PRN Reason: Nausea and Vomiting Pharmacy Consult (Consult Rx Vancomycin Dosing) 1 each MISCELLANE DAILY PRN PRN Reason: Consult order Polyethylene Glycol (Polyethylene Glycol 3350 17 Gm Powd.Pack) 17 gm PO DAILY PRN PRN Reason: Constipation Sodium Chloride (0.9 % Sodium Chloride Flush 3 Ml Syringe) 3 ml IVFLUSH QSHIFT [facility] Last Admin: 06/20/24 08:38 Dose: 3 ml Documented By: NASRA Valsartan (Valsartan 40 Mg Tablet) 20 mg PO BID [facility]; Protocol Last Admin: 06/20/24 08:39 Dose: 20 mg Documented By: NASRA Warfarin Sodium (Warfarin Sodium 2 Mg Tablet) 2 mg PO SuTuThSa@1800 [facility] Last Admin: 06/19/24 16:57 Dose: 2 mg Documented By: MAR Warfarin Sodium (Warfarin Sodium 1 Mg Tablet) 1 mg PO MoWeFr@1800 [facility] Last Admin: 06/17/24 19:49 Dose: 1 mg Documented By: ANAND Comments: had to wait for medication arrival from pharmacy Labs 06/17/24 11:29 06/20/24 06:16 Labs: Laboratory Results - last 24 hr 06/17/24 06/19/24 06/19/24 10:46 11:33 16:09 PT Whole Blood PT 27.2 H INR Whole Blood INR 2.3 H Anion Gap Estim Creat Clear Calc Estimated GFR POC Glucose 172 H 164 H Random Glucose Calcium Random Vancomycin 06/19/24 06/20/24 06/20/24 20:05 06:16 08:24 PT 31.6 H Whole Blood PT INR 2.6 H Whole Blood INR Anion Gap 15 Estim Creat Clear Calc 23.8 Estimated GFR 25 POC Glucose 142 H 189 H Random Glucose 140 H Calcium 9.4 Random Vancomycin 14.5 L Microbiology Microbiology Results: Microbiology 06/18/24 08:25 Blood Culture - Preliminary Blood - Venous No growth after 48 hours. 06/18/24 08:25 Blood Culture - Preliminary Blood - Venous No growth after 48 hours. 06/17/24 12:49 Blood Culture - Preliminary Blood - Venous Staphylococcus species 06/17/24 12:49 Blood Culture - Preliminary Blood - Venous Staphylococcus species Assessment and Plan (1) Acute UTI: Status: Acute (2) Gram-positive bacteremia: Status: Acute Plan 83-year-old female with a PMH significant for?chronic Coumadin, chronic systolic CHF (EF 45-50%, , MR), CAD, CKD 3, insulin-dependent type 2 diabetes, hypothyroidism, HTN, and neurogenic bladder with suprapubic catheter who presents to the ED with sudden onset confusion, difficulty speaking, and weakness being worked for stroke, has uti, and now gram posiitive cocci bacteremia Acute encephalpathy likely related sepsis, bacteremia and uti., cva ruled with CT and MRI, mental status if better -treat underlying infection uti--negative culture ceftriaxone stopped Staph species bacteremia, sensitivity pending, -repeat culture 06/18 negative x 48 hrs -contineu vanco 06/18, if worsening Dapto, if MSSA then kefzol -echo to rule endocarditis -id input noted Acute encephalopathy, aphasia, and weakness--resolved, likely from acute infection, CT and MRI no cva DOROTHY on CKD III, better, Cr within baseline -follow bmp Chronic metabolic acidosis--d/t CKD, stable, monitor, bicab if worse Persistent AFib, rate controlled -Continue Coumadin, INR goal of 2-3 -Monitor INR HFrEF, compensated, hold lasix d/t dorothy Insulin-dependent type 2 diabetes -Sliding-scale insulin, Lantus -Continue Jardiance -Diabetic diet Hypothyroidism -Continue levothyroxine HTN -Continue amlodipine, valsartan Full Code DVT Prophylaxis: On Coumadin need for inpt; stroke work up, sepsis needing IV Abx and awaiting further Quality Stroke Does the patient have a stroke diagnosis?: No Reason for No Anti-thrombotic by Day Two: Contraindicated (Pt on Coumadin, not a candidate for tNK) VTE Prior VTE?: No VTE Risk Level:: Medical - moderate - high VTE Device Contraindication: Treatment Not Indicated VTE Drug Contraindication: N/A - Med Ordered
--- NOTE | 2024-06-20 11:44 | HO.WOUND ---
Wound Consult: Initial 83yr old female admitted to [facility] on 06/17/24 14:21 - See progress notes and H&P for detailed history.? Wound consult placed for Buttock wound.? Patient agreeable to assessment and photo documentation.? Patient reports despite suprapubic in place she experiences urethral leaking - provider aware. Buttock and Sacrum Etiology: ??MASD - Moisture Associated Skin Damage) Wound Bed: red maroon blanchable tissue with moist macerated epidermal layer peeling - reveals partial thickness wound bed Drainage / Odor: serous Edges: ? well defined Stephania wound: noted in the perineal area as well? No Induration, Fluctuance or Warmth noted Pain: painful per pt statement Goals of Treatment: Triad to protect from moisture and friction and allow for moist wound healing Right Upper Arm - Chronic Lesions - Etiology remains unknown - Patient advised to follow up outpt with dermatology for etiology and treatment. Currently no drainage noted scattered scaling areas of red dry wound bed - No topical treatment needed - patient requests cover dressing. Recommend foam dressing to site change every 5 days. ? Recommendations: 1. Turn and Reposition every 2 hours and as needed for patient comfort.? Use pillows or wedges to support off loading positions. 2. Off Load all bony prominences with use of pillows and heel boots if needed.? Apply Preventative foams where needed. ? 3. Monitor for incontinence and moisture control, use barrier creams when needed for prevention and treatment. 4. Provide adequate and supplemental nutrition.? 5. Order or Continue low air loss mattress. 6. When applicable maintain blood glucose levels per Providers order. 7. Buttock and Perineal - Off Load Pressure - Cleanse with PH balance spray or wipes, pat dry. ?Apply thin layer of Triad to wound bed - only pat and dab no scrub and rub when soiling occurs. Reapply thin layer PRN after each episode of incontinence. 8. Right Upper Arm - Cleanse with routine cleansing. Cover with foam dressing. Change every 5 days. Re-consult wound care Nurse for wound deterioration or wound changes.
[2024-06-20 12:14] LABS: Glucose, Whole Blood 191 mg/dL (60-115)
[2024-06-20] MEDS: Insulin Lispro 100 UNIT/ML 3 ML VIAL SUBCUT ×3 (12:46→21:01)
[2024-06-20 12:59] VITALS: BP 135/71; PULSE 95; O2SAT 97
[2024-06-20 15:44] VITALS: BP 135/77; PULSE 90; RESP 18; TEMP 36.6; O2SAT 99
[2024-06-20 16:05] LABS: Glucose, Whole Blood 182 mg/dL (60-115)
[2024-06-20] MEDS: Warfarin Sodium 1 MG TABLET PO (17:36)
[2024-06-20 19:33] VITALS: BP 135/78; PULSE 99; RESP 20; TEMP 36.4; O2SAT 94
[2024-06-20] MEDS: Acetaminophen 325 MG TABLET 650 MG PO (21:00)
[2024-06-20 21:01] LABS: Glucose, Whole Blood 209 mg/dL (60-115)
[2024-06-20] MEDS: Insulin Glargine,Hum.rec.anlog 100 UNIT/ML 10 ML VIAL 17 UNIT SUBCUT (21:01)
[2024-06-21] VITALS: BP 133/72; PULSE 89; RESP 20; TEMP 36.2; O2SAT 95
[2024-06-21 04:00] VITALS: BP 139/83; PULSE 73; RESP 20; TEMP 36.1; O2SAT 93
[2024-06-21] MEDS: Atorvastatin Calcium 40 MG TABLET PO ×2 (05:42→21:09)
[2024-06-21] MEDS: Levothyroxine Sodium 25 MCG TABLET PO (06:40)
[2024-06-21 06:44] LABS: Creatinine Clr Calc Pharmacy 20.9; Estimated Glomerular Filt Rate 21
[2024-06-21 07:24] LABS: Glucose, Whole Blood 110 mg/dL (60-115)
[2024-06-21 07:31] LABS: Vancomycin Random 14.3 mcg/mL (15-20)
[2024-06-21 07:56] VITALS: BP 119/70; PULSE 91; RESP 18; TEMP 36.3; O2SAT 96
[2024-06-21] MEDS: vancomycin HCL 500 MG in 0.9 % Sodium Chloride 100 ML 100 MG IV (07:58)
[2024-06-21] MEDS: Valsartan 40 MG TABLET 20 MG PO ×2 (07:59→21:08)
[2024-06-21] MEDS: Multivitamin TABLET 1 TAB PO (07:59)
[2024-06-21] MEDS: Aspirin Enteric Coated 81 MG TABLET.DR PO (08:00)
[2024-06-21] MEDS: Mirabegron 25 MG TAB.ER.24H PO (08:00)
[2024-06-21] MEDS: amLODIPine Besylate 5 MG TABLET PO (08:00)
[2024-06-21] MEDS: 0.9 % Sodium Chloride Flush 3 ML SYRINGE IVFLUSH ×3 (08:00→23:23)
[2024-06-21] MEDS: Empagliflozin 10 MG TABLET PO (08:00)
[2024-06-21] MEDS: Metoprolol Succinate ER 100 MG TAB.ER.24H 200 MG PO (08:00)
[2024-06-21 08:59] LABS: INTERNATIONAL NORM RATIO 3.3 (0.9-1.1)
[2024-06-21 11:08] LABS: Glucose, Whole Blood 175 mg/dL (60-115)
[2024-06-21] MEDS: Insulin Lispro 100 UNIT/ML 3 ML VIAL SUBCUT ×3 (11:52→21:10)
[2024-06-21 11:58] VITALS: BP 135/63; PULSE 87; RESP 20; TEMP 36.3; O2SAT 99
--- NOTE | 2024-06-21 15:11 | P.PNIM_ITS ---
Subjective Subjective Date of Service: 06/21/24 Interval History: f/u on bacteremia, encephalopathy encephalopathy resolved. blood cultures - staph epi and hominis Physical Exam 2 Vital Signs: Vital Signs: Last Vital Signs Temp 97.3 F 06/21/24 11:58 Pulse 87 06/21/24 11:58 Resp 20 06/21/24 11:58 BP 135/63 06/21/24 11:58 Pulse Ox 99 06/21/24 11:58 O2 Del Method Room Air 06/21/24 11:58 BMI result Body Mass Index 32.0 General: AO X 3, no acute distress Resp: CTA bilateral CVS: S1,S2,RRR GI: +BS, NT, no distention Skin: No rash Neuro: motor grossly intact Psych: appropriate affect Objective Data Active Medications Acetaminophen (Acetaminophen 325 Mg Tablet) 650 mg PO Q6H PRN PRN Reason: Pain, Mild (Pain Scale 1-3), fever or headache Last Admin: 06/20/24 21:00 Dose: 650 mg Documented By: MELA Amlodipine Besylate (Amlodipine Besylate 5 Mg Tablet) 5 mg PO DAILY [facility]; Protocol Last Admin: 06/21/24 08:00 Dose: 5 mg Documented By: MAGGIE Aspirin (Aspirin Enteric Coated 81 Mg Tablet.Dr) 81 mg PO DAILY [facility] Last Admin: 06/21/24 08:00 Dose: 81 mg Documented By: MAGGIE Atorvastatin Calcium (Atorvastatin Calcium 40 Mg Tablet) 40 mg PO BEDTIME [facility] Last Admin: 06/21/24 05:42 Dose: 40 mg Documented By: MELA Benzonatate (Benzonatate 100 Mg Capsule) 100 mg PO TID PRN PRN Reason: Cough Calcium Carbonate (Calcium Carbonate 750 Mg Tab.Chew) 750 mg PO Q4H PRN PRN Reason: Heartburn Empagliflozin (Empagliflozin 10 Mg Tablet) 10 mg PO DAILY [facility] Last Admin: 06/21/24 08:00 Dose: 10 mg Documented By: MAGGIE Glucose (Glucose Gel 15 Gm Gel..Gram.) 15 gm PO Q15M PRN; Protocol PRN Reason: per Hypoglycemia Standing Ord. Dextrose (D10) 250 mls @ 750 mls/hr IV Q15M PRN; Protocol PRN Reason: per Hypoglycemia Standing Ord. Vancomycin HCl 500 mg/ Sodium (Chloride) 110 mls @ 110 mls/hr IV Q24H [facility] Last Infusion: 06/21/24 09:12 Dose: Infused Documented By: MAGGIE Insulin Glargine (Insulin Glargine,Hum.Rec.Anlog 100 Unit/Ml 10 Ml Vial) 17 unit SUBCUT BEDTIME [facility] Last Admin: 06/20/24 21:01 Dose: 17 unit Documented By: MELA Insulin Human Lispro (Insulin Lispro 100 Unit/Ml 3 Ml Vial) 0 unit SUBCUT QIDACHS [facility]; Protocol Last Admin: 06/21/24 11:52 Dose: 2 unit Documented By: MAGGIE Levothyroxine Sodium (Levothyroxine Sodium 25 Mcg Tablet) 25 mcg PO DAILY@0600 [facility] Last Admin: 06/21/24 06:40 Dose: 25 mcg Documented By: MELA Magnesium Hydroxide (Milk Of Magnesia 30 Ml Oral.Susp) 30 ml PO DAILY PRN PRN Reason: Constipation Last Admin: 06/19/24 06:03 Dose: 30 ml Documented By: ENOC Melatonin (Melatonin 3 Mg Tablet) 6 mg PO BEDTIME PRN PRN Reason: Insomnia Last Admin: 06/19/24 21:43 Dose: 6 mg Documented By: MELA Metoprolol Succinate (Metoprolol Succinate Er 100 Mg Tab.Er.24h) 200 mg PO DAILY [facility]; Protocol Last Admin: 06/21/24 08:00 Dose: 200 mg Documented By: MAGGIE Mirabegron (Mirabegron 25 Mg Tab.Er.24h) 25 mg PO DAILY [facility] Last Admin: 06/21/24 08:00 Dose: 25 mg Documented By: MAGGIE Multivitamins/Vitamin C (Multivitamin Tablet) 1 tab PO DAILY [facility] Last Admin: 06/21/24 07:59 Dose: 1 tab Documented By: MAGGIE Ondansetron HCl (Ondansetron Hcl 4 Mg/2 Ml Vial) 4 mg IVPUSH Q8H PRN PRN Reason: Nausea and Vomiting Pharmacy Consult (Consult Rx Vancomycin Dosing) 1 each MISCELLANE DAILY PRN PRN Reason: Consult order Polyethylene Glycol (Polyethylene Glycol 3350 17 Gm Powd.Pack) 17 gm PO DAILY PRN PRN Reason: Constipation Sodium Chloride (0.9 % Sodium Chloride Flush 3 Ml Syringe) 3 ml IVFLUSH QSHIFT [facility] Last Admin: 06/21/24 08:00 Dose: 3 ml Documented By: MAGGIE Valsartan (Valsartan 40 Mg Tablet) 20 mg PO BID [facility]; Protocol Last Admin: 06/21/24 07:59 Dose: 20 mg Documented By: MAGGIE Warfarin Sodium (Warfarin Sodium 2 Mg Tablet) 2 mg PO SuTuThSa@1800 [facility] Last Admin: 06/19/24 16:57 Dose: 2 mg Documented By: MAR Warfarin Sodium (Warfarin Sodium 1 Mg Tablet) 1 mg PO MoWeFr@1800 [facility] Last Admin: 06/20/24 17:36 Dose: 1 mg Documented By: NASRA Labs 06/17/24 11:29 06/21/24 06:20 Labs: Laboratory Results - last 24 hr 06/20/24 06/20/24 06/21/24 15:42 20:51 06:20 PT INR Estim Creat Clear Calc 20.9 Estimated GFR 21 POC Glucose 182 H 209 H Random Vancomycin 14.3 L 06/21/24 06/21/24 06/21/24 07:19 08:29 11:02 PT 40.0 H D INR 3.3 H Estim Creat Clear Calc Estimated GFR POC Glucose 110 175 H Random Vancomycin Microbiology Microbiology Results: Microbiology 06/17/24 12:49 Blood Culture - Preliminary Blood - Venous Staphylococcus epidermidis Staphylococcus hominis 06/17/24 12:49 Blood Culture - Preliminary Blood - Venous Staphylococcus epidermidis Staphylococcus hominis Assessment and Plan (1) Acute UTI: Status: Acute (2) Gram-positive bacteremia: Status: Acute Plan 83-year-old female with a PMH significant for?chronic Coumadin, chronic systolic CHF (EF 45-50%, , MR), CAD, CKD 3, insulin-dependent type 2 diabetes, hypothyroidism, HTN, and neurogenic bladder with suprapubic catheter who presents to the ED with sudden onset confusion, difficulty speaking, and weakness being worked for stroke, has uti, and now gram posiitive cocci bacteremia Acute encephalpathy likely related sepsis, bacteremia and uti., cva ruled with CT and MRI, mental status if better -treat underlying infection uti--negative culture ceftriaxone stopped, recheck as ua very dark Staph epid and hominis bacteremia, possibly contamination -repeat culture 06/18 negative x 48 hrs -contineu vanco 06/18, if worsening Dapto, if MSSA then kefzol -echo -no endocarditis -id to make further recommendation Acute encephalopathy, aphasia, and weakness--resolved, likely from acute infection, CT and MRI no cva DOROTHY on CKD III, better, Cr within baseline -follow bmp Chronic metabolic acidosis--d/t CKD, stable, monitor, bicab if worse Persistent AFib, rate controlled -Continue Coumadin, INR goal of 2-3 -Monitor INR HFrEF, compensated, hold lasix d/t dorothy Insulin-dependent type 2 diabetes -Sliding-scale insulin, Lantus -Continue Jardiance -Diabetic diet Hypothyroidism -Continue levothyroxine HTN -Continue amlodipine, valsartan Full Code DVT Prophylaxis: On Coumadin need for inpt; stroke work up, sepsis needing IV Abx and awaiting further Quality Stroke Does the patient have a stroke diagnosis?: No Reason for No Anti-thrombotic by Day Two: Contraindicated (Pt on Coumadin, not a candidate for tNK) VTE Prior VTE?: No VTE Risk Level:: Medical - moderate - high VTE Device Contraindication: Treatment Not Indicated VTE Drug Contraindication: N/A - Med Ordered
[2024-06-21 15:56] LABS: Glucose, Whole Blood 189 mg/dL (60-115)
[2024-06-21 16:00] VITALS: BP 130/88; PULSE 97; RESP 18; TEMP 37; O2SAT 98
[2024-06-21 20:00] VITALS: BP 126/59; PULSE 91; RESP 20; TEMP 36.4; O2SAT 98
[2024-06-21 20:54] LABS: Glucose, Whole Blood 207 mg/dL (60-115)
[2024-06-21] MEDS: Insulin Glargine,Hum.rec.anlog 100 UNIT/ML 10 ML VIAL 17 UNIT SUBCUT (21:10)
[2024-06-21] MEDS: Melatonin 3 MG TABLET 6 MG PO (23:22)
[2024-06-22] VITALS (8 sets, daily range): BP systolic 119–158; BP diastolic 56–87; PULSE 88–100; RESP 18–20; TEMP 36.1–36.9; O2SAT 94–100
[2024-06-22 06:40] LABS: INTERNATIONAL NORM RATIO 2.9 (0.9-1.1); Prothrombin Time 35.4 SEC (11.1-13.3)
[2024-06-22 06:47] LABS: Vancomycin Random 15.9 mcg/mL (15-20)
[2024-06-22 06:56] LABS: Creatinine Clr Calc Pharmacy 23.7; Estimated Glomerular Filt Rate 24
--- NOTE | 2024-06-22 07:21 | HE.PHANOTE ---
Re: Daryn Poor renal function, however it has improved since yesterday 06/21. Trough returned at 15.9, pt is therapeutic. Continue current dose of 500mg q24h, this has a predicted trough of 13.6, and predicted auc of 384. This patient is running higher than numbers predicted. Next trough is 06/23 0600.
[2024-06-22] MEDS: Levothyroxine Sodium 25 MCG TABLET PO (07:47)
[2024-06-22 07:49] LABS: Glucose, Whole Blood 153 mg/dL (60-115)
[2024-06-22] MEDS: polyethylene glycoL 3350 17 GM POWD.PACK PO (08:44)
[2024-06-22] MEDS: Insulin Lispro 100 UNIT/ML 3 ML VIAL SUBCUT ×4 (08:44→20:18)
[2024-06-22] MEDS: Mirabegron 25 MG TAB.ER.24H PO (08:45)
[2024-06-22] MEDS: Aspirin Enteric Coated 81 MG TABLET.DR PO (08:45)
[2024-06-22] MEDS: Metoprolol Succinate ER 100 MG TAB.ER.24H 200 MG PO (08:45)
[2024-06-22] MEDS: Multivitamin TABLET 1 TAB PO (08:45)
[2024-06-22] MEDS: amLODIPine Besylate 5 MG TABLET PO (08:45)
[2024-06-22] MEDS: Valsartan 40 MG TABLET 20 MG PO ×2 (08:45→20:21)
[2024-06-22] MEDS: Empagliflozin 10 MG TABLET PO (08:45)
[2024-06-22] MEDS: vancomycin HCL 500 MG in 0.9 % Sodium Chloride 100 ML 110 MG IV (08:51)
--- NOTE | 2024-06-22 11:46 | MHC.CM.PN ---
Per rounds, pt may be ready to DC later today. PT has rec. STR. Pt has been before and initially said that she wants to go home. CM met with pt. today and she said she will consider STR, referrals out.
[2024-06-22 11:54] LABS: Glucose, Whole Blood 185 mg/dL (60-115)
--- NOTE | 2024-06-22 12:01 | PC.NURSE ---
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 given various try, MD Schaefer said ok to no IV access for now. ALBERT kraus paused
--- NOTE | 2024-06-22 16:19 | HO.PM.IMPN ---
Subjective Subjective Date of Service: 06/22/24 Interval History: f/u on bacteremia, encephalopathy encephalopathy resolved. blood cultures - staph epi and hominis, discussed with ID and likely contaminiatyion a Physical Exam Vital Signs: Vital Signs: Last Vital Signs Temp 98.5 F 06/22/24 16:00 Pulse 95 06/22/24 16:00 Resp 18 06/22/24 16:00 BP 119/87 06/22/24 16:00 Pulse Ox 99 06/22/24 16:00 O2 Del Method Room Air 06/22/24 16:00 BMI result Body Mass Index 32.0 General: AO X 3, no acute distress Resp: CTA bilateral CVS: S1,S2,RRR GI: +BS, NT, no distention Skin: No rash Neuro: motor grossly intact Psych: appropriate affect Objective Data Active Medications Acetaminophen (Acetaminophen 325 Mg Tablet) 650 mg PO Q6H PRN PRN Reason: Pain, Mild (Pain Scale 1-3), fever or headache Last Admin: 06/20/24 21:00 Dose: 650 mg Documented By: MELA Amlodipine Besylate (Amlodipine Besylate 5 Mg Tablet) 5 mg PO DAILY [facility]; Protocol Last Admin: 06/22/24 08:45 Dose: 5 mg Documented By: CHESTER Aspirin (Aspirin Enteric Coated 81 Mg Tablet.) 81 mg PO DAILY [facility] Last Admin: 06/22/24 08:45 Dose: 81 mg Documented By: CHESTER Atorvastatin Calcium (Atorvastatin Calcium 40 Mg Tablet) 40 mg PO BEDTIME [facility] Last Admin: 06/21/24 21:09 Dose: 40 mg Documented By: MAX Benzonatate (Benzonatate 100 Mg Capsule) 100 mg PO TID PRN PRN Reason: Cough Calcium Carbonate (Calcium Carbonate 750 Mg Tab.Chew) 750 mg PO Q4H PRN PRN Reason: Heartburn Empagliflozin (Empagliflozin 10 Mg Tablet) 10 mg PO DAILY [facility] Last Admin: 06/22/24 08:45 Dose: 10 mg Documented By: CHESTER Glucose (Glucose Gel 15 Gm Gel..Gram.) 15 gm PO Q15M PRN; Protocol PRN Reason: per Hypoglycemia Standing Ord. Dextrose (D10) 250 mls @ 750 mls/hr IV Q15M PRN; Protocol PRN Reason: per Hypoglycemia Standing Ord. Vancomycin HCl 500 mg/ Sodium (Chloride) 110 mls @ 110 mls/hr IV Q24H [facility] Last Infusion: 06/22/24 09:00 Dose: 0 mls/hr Documented By: CHESTER Insulin Glargine (Insulin Glargine,Hum.Rec.Anlog 100 Unit/Ml 10 Ml Vial) 17 unit SUBCUT BEDTIME [facility] Last Admin: 06/21/24 21:10 Dose: 17 unit Documented By: MAX Insulin Human Lispro (Insulin Lispro 100 Unit/Ml 3 Ml Vial) 0 unit SUBCUT QIDACHS [facility]; Protocol Last Admin: 06/22/24 11:54 Dose: 2 unit Documented By: CHESTER Levothyroxine Sodium (Levothyroxine Sodium 25 Mcg Tablet) 25 mcg PO DAILY@0600 [facility] Last Admin: 06/22/24 07:47 Dose: 25 mcg Documented By: MAX Magnesium Hydroxide (Milk Of Magnesia 30 Ml Oral.Susp) 30 ml PO DAILY PRN PRN Reason: Constipation Last Admin: 06/19/24 06:03 Dose: 30 ml Documented By: ENOC Melatonin (Melatonin 3 Mg Tablet) 6 mg PO BEDTIME PRN PRN Reason: Insomnia Last Admin: 06/21/24 23:22 Dose: 6 mg Documented By: MAX Metoprolol Succinate (Metoprolol Succinate Er 100 Mg Tab.Er.24h) 200 mg PO DAILY [facility]; Protocol Last Admin: 06/22/24 08:45 Dose: 200 mg Documented By: CHESTER Mirabegron (Mirabegron 25 Mg Tab.Er.24h) 25 mg PO DAILY [facility] Last Admin: 06/22/24 08:45 Dose: 25 mg Documented By: CHESTER Multivitamins/Vitamin C (Multivitamin Tablet) 1 tab PO DAILY [facility] Last Admin: 06/22/24 08:45 Dose: 1 tab Documented By: CHESTER Ondansetron HCl (Ondansetron Hcl 4 Mg/2 Ml Vial) 4 mg IVPUSH Q8H PRN PRN Reason: Nausea and Vomiting Pharmacy Consult (Consult Rx Vancomycin Dosing) 1 each MISCELLANE DAILY PRN PRN Reason: Consult order Polyethylene Glycol (Polyethylene Glycol 3350 17 Gm Powd.Pack) 17 gm PO DAILY PRN PRN Reason: Constipation Last Admin: 06/22/24 08:44 Dose: 17 gm Documented By: CHESTER Sodium Chloride (0.9 % Sodium Chloride Flush 3 Ml Syringe) 3 ml IVFLUSH QSHIFT [facility] Last Admin: 06/22/24 10:22 Dose: Not Given Documented By: CHESTER Non-Admin Reason: No Access Valsartan (Valsartan 40 Mg Tablet) 20 mg PO BID [facility]; Protocol Last Admin: 06/22/24 08:45 Dose: 20 mg Documented By: CHESTER Warfarin Sodium (Warfarin Sodium 2 Mg Tablet) 2 mg PO SuTuThSa@1800 [facility] Last Admin: 06/19/24 16:57 Dose: 2 mg Documented By: MAR Warfarin Sodium (Warfarin Sodium 1 Mg Tablet) 1 mg PO MoWeFr@1800 [facility] Last Admin: 06/20/24 17:36 Dose: 1 mg Documented By: NASRA Labs 06/17/24 11:29 06/22/24 06:01 Labs: Laboratory Results - last 24 hr 06/21/24 06/22/24 06/22/24 20:44 06:01 07:24 PT 35.4 H INR 2.9 H Estim Creat Clear Calc 23.7 Estimated GFR 24 POC Glucose 207 H 153 H Random Vancomycin 15.9 06/22/24 11:50 PT INR Estim Creat Clear Calc Estimated GFR POC Glucose 185 H Random Vancomycin Microbiology Microbiology Results: Microbiology 06/17/24 12:49 Blood Culture - Final Blood - Venous Staphylococcus epidermidis Staphylococcus hominis 06/17/24 12:49 Blood Culture - Final Blood - Venous Staphylococcus epidermidis Staphylococcus hominis Assessment and Plan (1) Acute UTI: Status: Acute (2) Gram-positive bacteremia: Status: Acute Plan 83-year-old female with a PMH significant for?chronic Coumadin, chronic systolic CHF (EF 45-50%, , MR), CAD, CKD 3, insulin-dependent type 2 diabetes, hypothyroidism, HTN, and neurogenic bladder with suprapubic catheter who presents to the ED with sudden onset confusion, difficulty speaking, and weakness being worked for stroke, has uti, and now gram posiitive cocci bacteremia Acute encephalpathy likely related sepsis, uti, encephalopathy uti--negative culture ceftriaxone stopped, recheck ua Staph epid and hominis bacteremia, possibly contamination -repeat culture 06/18 negative x 48 hrs -contineu vanco 8/17, if worsening Dapto, if MSSA then kefzol -echo -no endocarditis -discussed with id and no further treatment Acute encephalopathy, aphasia, and weakness--resolved, likely from acute infection, CT and MRI no cva DOROTHY on CKD III, better, Cr within baseline -follow bmp Chronic metabolic acidosis--d/t CKD, stable, monitor, bicab if worse Persistent AFib, rate controlled -Continue Coumadin, INR goal of 2-3 -Monitor INR HFrEF, compensated, hold lasix d/t dorothy Insulin-dependent type 2 diabetes -Sliding-scale insulin, Lantus -Continue Jardiance -Diabetic diet Hypothyroidism -Continue levothyroxine HTN -Continue amlodipine, valsartan Full Code DVT Prophylaxis: On Coumadin need for inpt; stroke work up, sepsis needing IV Abx and awaiting further PT is recommending STR Quality Stroke Does the patient have a stroke diagnosis?: No Reason for No Anti-thrombotic by Day Two: Contraindicated (Pt on Coumadin, not a candidate for tNK) VTE Prior VTE?: No VTE Risk Level:: Medical - moderate - high VTE Device Contraindication: Treatment Not Indicated VTE Drug Contraindication: N/A - Med Ordered
[2024-06-22 16:47] LABS: Anion Gap 13 (12-20); Carbon Dioxide 22 mmol/L (22-29); Chloride 107 mmol/L (96-108); Sodium 137 mmol/L (135-145)
[2024-06-22 16:52] LABS: Glucose, Whole Blood 176 mg/dL (60-115)
[2024-06-22] MEDS: Warfarin Sodium 1 MG TABLET PO (17:45)
[2024-06-22] MEDS: Acetaminophen 325 MG TABLET 650 MG PO (17:49)
[2024-06-22 20:16] LABS: Glucose, Whole Blood 174 mg/dL (60-115)
[2024-06-22] MEDS: Melatonin 3 MG TABLET 6 MG PO (20:18)
[2024-06-22] MEDS: Atorvastatin Calcium 40 MG TABLET PO (20:18)
[2024-06-22] MEDS: Insulin Glargine,Hum.rec.anlog 100 UNIT/ML 10 ML VIAL 17 UNIT SUBCUT (20:19)
--- NOTE | 2024-06-22 23:44 | PC.NURSE ---
Patient asleep in bed. No acute distress observed. Report given to oncoming nurse.
[2024-06-23] VITALS (7 sets, daily range): BP systolic 104–140; BP diastolic 53–79; PULSE 88–100; RESP 18–20; TEMP 36.1–36.6; O2SAT 95–97
[2024-06-23] MEDS: Levothyroxine Sodium 25 MCG TABLET PO (05:12)
[2024-06-23 05:40] LABS: Appearance Urine Turbid; Color Urine Yellow; Glucose Urine UA 500 mg/dL (Negative); Leukocyte Esterase Urine Large (3+) (Negative); Nitrite Urine Negative (Negative); PH 6.5 (5.0-9.0); UMIC TRIGGER UACC YES; Urine Blood Large (3+) (Negative); Urine Ketones Negative (Negative); Urine Protein 100 (2+) mg/dL (Neg-Trace)
[2024-06-23 05:51] LABS: Bacteria Urine 1+ (None Seen); Hyaline Casts Urine 0-2 /LPF (0-2); UACC Culture Trigger YES; WBC Urine >50 /HPF (0-5)
[2024-06-23 07:29] LABS: Creatinine Clr Calc Pharmacy 21.4; Estimated Glomerular Filt Rate 22
[2024-06-23 07:33] LABS: INTERNATIONAL NORM RATIO 2.8 (0.9-1.1); Prothrombin Time 33.5 SEC (11.1-13.3)
[2024-06-23 07:49] LABS: Glucose, Whole Blood 120 mg/dL (60-115)
[2024-06-23 08:15] LABS: Anion Gap 15 (12-20)
[2024-06-23 08:18] LABS: Blood Urea Nitrogen 28 mg/dL (9-16); Carbon Dioxide 22 mmol/L (22-29); Chloride 106 mmol/L (96-108); Glucose Random 131 mg/dL (60-115); Potassium 5.2 mmol/L (3.3-5.1); Sodium 138 mmol/L (135-145)
[2024-06-23] MEDS: Empagliflozin 10 MG TABLET PO (09:07)
[2024-06-23] MEDS: Mirabegron 25 MG TAB.ER.24H PO (09:07)
[2024-06-23] MEDS: Valsartan 40 MG TABLET 20 MG PO ×2 (09:07→20:40)
[2024-06-23] MEDS: amLODIPine Besylate 5 MG TABLET PO (09:07)
[2024-06-23] MEDS: Aspirin Enteric Coated 81 MG TABLET.DR PO (09:07)
[2024-06-23] MEDS: Metoprolol Succinate ER 100 MG TAB.ER.24H 200 MG PO (09:07)
[2024-06-23] MEDS: Multivitamin TABLET 1 TAB PO (09:07)
--- NOTE | 2024-06-23 09:08 | P.CDIM_ITS ---
PROVIDER RESPONSE TEXT: To clarify, the appropriate diagnosis supported by the clinical indicators: Metabolic QUERY TEXT: PHYSICIAN'S DOCUMENTATION REQUEST Date of Query: 06/20/2024 09:10 AM EDT Patient Name: Belen Brday I Admit Date: 06/17/2024 Dear Donnie Schaefer MD, A review of the medical record indicates additional documentation may be needed. Please review below and update the documentation accordingly. Clinical Indicators: Progress notes: f/u sepsis, bacteremia, encephalopathy Acute encephalopathy likely related to Sepsis, bacteremia and uti, cva rule out with CT and MRI. Based on the above, please further specify, in the Progress Notes, the known or suspected type of the documented encephalopathy: Metabolic Septic Toxic Toxic metabolic Other (explain) Clinically unable to determine (explain) Thank you, Danielle Deleon, CCS, CDIS Use of terms such as suspected, likely, concern for, or probable (associated with a specific diagnosi s that is being evaluated, monitored, or treated as if it exists) are acceptable and can be coded in the inpatient se tting, when documented at the time of discharge. Please use your independent medical judgment in providing your response. THIS QUERY IS PART OF THE PERMANENT MEDICAL RECORD
[2024-06-23 12:01] LABS: Glucose, Whole Blood 171 mg/dL (60-115)
[2024-06-23] MEDS: Sodium Zirconium Cyclosilicate 10 GM POWD.PACK PO (12:22)
[2024-06-23] MEDS: Insulin Lispro 100 UNIT/ML 3 ML VIAL SUBCUT ×3 (12:33→20:42)
--- NOTE | 2024-06-23 12:41 | P.PNIM_ITS ---
Subjective Subjective Date of Service: 06/23/24 Interval History: She's c/o pain in the left hand and her renal function is ticking up Physical Exam 2 Vital Signs: Vital Signs: Last Vital Signs Temp 97.8 F 06/23/24 11:52 Pulse 100 06/23/24 11:52 Resp 20 06/23/24 11:52 BP 109/70 06/23/24 11:52 Pulse Ox 97 06/23/24 11:52 O2 Del Method Room Air 06/23/24 11:52 BMI result Body Mass Index 32.0 General: AO X 3, no acute distress Resp: CTA bilateral CVS: S1,S2,RRR GI: +BS, NT, no distention Skin: No rash MSK: tenderness in hypothenar Neuro: motor grossly intact Psych: appropriate affect Objective Data Active Medications Acetaminophen (Acetaminophen 325 Mg Tablet) 650 mg PO Q6H PRN PRN Reason: Pain, Mild (Pain Scale 1-3), fever or headache Last Admin: 06/22/24 17:49 Dose: 650 mg Documented By: CHESTER Amlodipine Besylate (Amlodipine Besylate 5 Mg Tablet) 5 mg PO DAILY [facility]; Protocol Last Admin: 06/23/24 09:07 Dose: 5 mg Documented By: CHESTER Aspirin (Aspirin Enteric Coated 81 Mg Tablet.) 81 mg PO DAILY [facility] Last Admin: 06/23/24 09:07 Dose: 81 mg Documented By: CHESTER Atorvastatin Calcium (Atorvastatin Calcium 40 Mg Tablet) 40 mg PO BEDTIME [facility] Last Admin: 06/22/24 20:18 Dose: 40 mg Documented By: NORA Benzonatate (Benzonatate 100 Mg Capsule) 100 mg PO TID PRN PRN Reason: Cough Calcium Carbonate (Calcium Carbonate 750 Mg Tab.Chew) 750 mg PO Q4H PRN PRN Reason: Heartburn Empagliflozin (Empagliflozin 10 Mg Tablet) 10 mg PO DAILY [facility] Last Admin: 06/23/24 09:07 Dose: 10 mg Documented By: CHESTER Glucose (Glucose Gel 15 Gm Gel..Gram.) 15 gm PO Q15M PRN; Protocol PRN Reason: per Hypoglycemia Standing Ord. Dextrose (D10) 250 mls @ 750 mls/hr IV Q15M PRN; Protocol PRN Reason: per Hypoglycemia Standing Ord. Ceftriaxone Sodium 1 gm/ (Sodium Chloride) 50 mls @ 100 mls/hr IV Q24H [facility] Insulin Glargine (Insulin Glargine,Hum.Rec.Anlog 100 Unit/Ml 10 Ml Vial) 17 unit SUBCUT BEDTIME [facility] Last Admin: 06/22/24 20:19 Dose: 17 unit Documented By: NORA Insulin Human Lispro (Insulin Lispro 100 Unit/Ml 3 Ml Vial) 0 unit SUBCUT QIDACHS [facility]; Protocol Last Admin: 06/23/24 12:33 Dose: 2 unit Documented By: CHESTER Levothyroxine Sodium (Levothyroxine Sodium 25 Mcg Tablet) 25 mcg PO DAILY@0600 [facility] Last Admin: 06/23/24 05:12 Dose: 25 mcg Documented By: PENELOPE Magnesium Hydroxide (Milk Of Magnesia 30 Ml Oral.Susp) 30 ml PO DAILY PRN PRN Reason: Constipation Last Admin: 06/19/24 06:03 Dose: 30 ml Documented By: ENOC Melatonin (Melatonin 3 Mg Tablet) 6 mg PO BEDTIME PRN PRN Reason: Insomnia Last Admin: 06/22/24 20:18 Dose: 6 mg Documented By: NORA Metoprolol Succinate (Metoprolol Succinate Er 100 Mg Tab.Er.24h) 200 mg PO DAILY [facility]; Protocol Last Admin: 06/23/24 09:07 Dose: 200 mg Documented By: CHESTER Mirabegron (Mirabegron 25 Mg Tab.Er.24h) 25 mg PO DAILY [facility] Last Admin: 06/23/24 09:07 Dose: 25 mg Documented By: CHESTER Multivitamins/Vitamin C (Multivitamin Tablet) 1 tab PO DAILY [facility] Last Admin: 06/23/24 09:07 Dose: 1 tab Documented By: CHESTER Ondansetron HCl (Ondansetron Hcl 4 Mg/2 Ml Vial) 4 mg IVPUSH Q8H PRN PRN Reason: Nausea and Vomiting Pharmacy Consult (Consult Rx Vancomycin Dosing) 1 each MISCELLANE DAILY PRN PRN Reason: Consult order Polyethylene Glycol (Polyethylene Glycol 3350 17 Gm Powd.Pack) 17 gm PO DAILY PRN PRN Reason: Constipation Last Admin: 06/22/24 08:44 Dose: 17 gm Documented By: CHESTER Sodium Chloride (0.9 % Sodium Chloride Flush 3 Ml Syringe) 3 ml IVFLUSH QSHIFT [facility] Last Admin: 06/23/24 09:10 Dose: Not Given Documented By: CHESTER Non-Admin Reason: No Access Valsartan (Valsartan 40 Mg Tablet) 20 mg PO BID [facility]; Protocol Last Admin: 06/23/24 09:07 Dose: 20 mg Documented By: CHESTER Warfarin Sodium (Warfarin Sodium 2 Mg Tablet) 2 mg PO SuTuThSa@1800 [facility] Last Admin: 06/19/24 16:57 Dose: 2 mg Documented By: MAR Warfarin Sodium (Warfarin Sodium 1 Mg Tablet) 1 mg PO MoWeFr@1800 [facility] Last Admin: 06/22/24 17:45 Dose: 1 mg Documented By: CHESTER Labs 06/23/24 15:11 06/23/24 15:11 Labs: Laboratory Results - last 24 hr 06/22/24 06/22/24 06/22/24 06:01 16:38 20:12 PT INR Anion Gap 13 Estim Creat Clear Calc Estimated GFR POC Glucose 176 H 174 H Random Glucose Calcium Urine Color Urine Appearance Urine pH Ur Specific [place] Urine Protein Urine Glucose (UA) Urine Ketones Urine Blood Urine Nitrite Ur Leukocyte Esterase Urine RBC Urine WBC Ur Squamous Epith Cells Urine Bacteria Hyaline Casts Urine Yeast 06/23/24 06/23/24 06/23/24 05:25 06:39 07:28 PT 33.5 H INR 2.8 H Anion Gap 15 Estim Creat Clear Calc 21.4 Estimated GFR 22 POC Glucose 120 H Random Glucose 131 H Calcium 9.0 Urine Color Yellow Urine Appearance Turbid Urine pH 6.5 Ur Specific [place] 1.010 Urine Protein 100 (2+) H Urine Glucose (UA) 500 H Urine Ketones Negative Urine Blood Large (3+) H Urine Nitrite Negative Ur Leukocyte Esterase Large (3+) H Urine RBC 11-20 H Urine WBC >50 H Ur Squamous Epith Cells 6-10 Urine Bacteria 1+ Hyaline Casts 0-2 Urine Yeast Present 06/23/24 11:56 PT INR Anion Gap Estim Creat Clear Calc Estimated GFR POC Glucose 171 H Random Glucose Calcium Urine Color Urine Appearance Urine pH Ur Specific [place] Urine Protein Urine Glucose (UA) Urine Ketones Urine Blood Urine Nitrite Ur Leukocyte Esterase Urine RBC Urine WBC Ur Squamous Epith Cells Urine Bacteria Hyaline Casts Urine Yeast Microbiology Microbiology Results: Microbiology 06/18/24 08:25 Blood Culture - Final Blood - Venous No growth after 5 days. 06/18/24 08:25 Blood Culture - Final Blood - Venous No growth after 5 days. 06/17/24 12:49 Blood Culture - Final Blood - Venous Staphylococcus epidermidis Staphylococcus hominis 06/17/24 12:49 Blood Culture - Final Blood - Venous Staphylococcus epidermidis Staphylococcus hominis Assessment and Plan (1) Acute UTI: Status: Acute (2) Gram-positive bacteremia: Status: Acute Plan 83-year-old female with a PMH significant for?chronic Coumadin, chronic systolic CHF (EF 45-50%, , MR), CAD, CKD 3, insulin-dependent type 2 diabetes, hypothyroidism, HTN, and neurogenic bladder with suprapubic catheter who presents to the ED with sudden onset confusion, difficulty speaking, and weakness being worked for stroke, has uti, and now gram posiitive cocci bacteremia Acute encephalpathy likely related sepsis, uti uti--continue ceftriaxone to cefuroxime at dc Staph epid and hominis bacteremia, possibly contamination -repeat culture 06/18 negative x 48 hrs -contineu vanco 06/18, if worsening Dapto, if MSSA then kefzol -echo -no endocarditis -discussed with id and no further treatment Acute encephalopathy, aphasia, and weakness--resolved, likely from acute infection, CT and MRI no cva CELE on CKD III, better, Cr has trended up, ivf till tomorrow -follow bmp Hyperkalemia--lokelma and resolved. Chronic metabolic acidosis--d/t CKD, stable, monitor, presently normal Persistent AFib, rate controlled -Continue Coumadin, INR goal of 2-3 -Monitor INR HFrEF, compensated, hold lasix d/t cele Insulin-dependent type 2 diabetes -Sliding-scale insulin, Lantus -Continue Jardiance -Diabetic diet Hypothyroidism -Continue levothyroxine HTN -Continue amlodipine, valsartan Hand pain.. xray no fracture, arthritic changes. Tylenol if not helpful oxycodone Full Code DVT Prophylaxis: On Coumadin need for inpt; stroke work up, sepsis needing IV Abx and awaiting further PT is recommending STR, possibly tomorrow Quality Stroke Does the patient have a stroke diagnosis?: No Reason for No Anti-thrombotic by Day Two: Contraindicated (Pt on Coumadin, not a candidate for tNK) VTE Prior VTE?: No VTE Risk Level:: Medical - moderate - high VTE Device Contraindication: Treatment Not Indicated VTE Drug Contraindication: N/A - Med Ordered
[2024-06-23] MEDS: cefTRIAXone sodium 1 GM in 0.9 % Sodium Chloride 50 ML IV (15:18)
[2024-06-23] MEDS: 0.9 % Sodium Chloride Flush 3 ML SYRINGE IVFLUSH (15:18)
[2024-06-23 15:28] LABS: Hematocrit 37.9 % (37.0-47.0); Hemoglobin 12.2 g/dl (12.0-16.0); Mean Corpuscular HGB Conc 32.2 g/dl (31.0-35.0); Mean Corpuscular Hemoglobin 28.4 pg (27.0-33.0); Mean Corpuscular Volume 88.1 fL (80.0-98.0); Mean Platelet Volume 8.6 fL (9.4-12.3); Platelet Count 293 X10*3/uL (160-400); Red Cell Distribution Width 15.5 % (11.0-16.0); White Blood Count 9.2 X10*3/uL (4.8-10.8)
[2024-06-23 15:39] LABS: Anion Gap 12 (12-20); Blood Urea Nitrogen 31 mg/dL (9-16); Calcium 8.8 mg/dL (8.4-10.2); Carbon Dioxide 23 mmol/L (22-29); Chloride 105 mmol/L (96-108); Creatinine Clr Calc Pharmacy 19.4; Estimated Glomerular Filt Rate 19; Glucose Random 211 mg/dL (60-115); Potassium 5.1 mmol/L (3.3-5.1); Sodium 135 mmol/L (135-145)
[2024-06-23] MEDS: oxyCODONE HCl Immed Release 5 MG TABLET PO (17:07)
[2024-06-23] MEDS: Lactated Ringers 1,000 ML 80 ML IVCONT (17:08)
[2024-06-23 17:20] LABS: Glucose, Whole Blood 191 mg/dL (60-115)
[2024-06-23] MEDS: Warfarin Sodium 2 MG TABLET PO (17:30)
[2024-06-23 20:37] LABS: Glucose, Whole Blood 227 mg/dL (60-115)
[2024-06-23] MEDS: Atorvastatin Calcium 40 MG TABLET PO (20:40)
[2024-06-23] MEDS: Insulin Glargine,Hum.rec.anlog 100 UNIT/ML 10 ML VIAL 17 UNIT SUBCUT (20:41)
[2024-06-23] MEDS: Melatonin 3 MG TABLET 6 MG PO (20:41)
[2024-06-24] VITALS (7 sets, daily range): BP systolic 111–158; BP diastolic 62–96; PULSE 86–107; RESP 18–20; TEMP 36–36.7; O2SAT 92–97
[2024-06-24] MEDS: oxyCODONE HCl Immed Release 5 MG TABLET PO ×3 (01:34→17:19)
[2024-06-24] MEDS: Levothyroxine Sodium 25 MCG TABLET PO (05:42)
[2024-06-24] MEDS: Lactated Ringers 1,000 ML 80 ML IVCONT (05:43)
[2024-06-24 07:39] LABS: INTERNATIONAL NORM RATIO 2.7 (0.9-1.1); Prothrombin Time 33.3 SEC (11.1-13.3)
[2024-06-24 07:42] LABS: Glucose, Whole Blood 132 mg/dL (60-115)
[2024-06-24 07:57] LABS: Anion Gap 13 (12-20); Blood Urea Nitrogen 29 mg/dL (9-16); Calcium 9.1 mg/dL (8.4-10.2); Carbon Dioxide 22 mmol/L (22-29); Chloride 106 mmol/L (96-108); Creatinine Clr Calc Pharmacy 21.1; Estimated Glomerular Filt Rate 21; Glucose Random 122 mg/dL (60-115); Potassium 4.8 mmol/L (3.3-5.1); Sodium 136 mmol/L (135-145)
[2024-06-24 08:21] LABS: Uric Acid 7.1 mg/dL (2.4-5.7)
[2024-06-24] MEDS: Multivitamin TABLET 1 TAB PO (08:21)
[2024-06-24] MEDS: Empagliflozin 10 MG TABLET PO (08:21)
[2024-06-24] MEDS: Aspirin Enteric Coated 81 MG TABLET.DR PO (08:21)
[2024-06-24] MEDS: Mirabegron 25 MG TAB.ER.24H PO (08:21)
[2024-06-24] MEDS: Metoprolol Succinate ER 100 MG TAB.ER.24H 200 MG PO (08:24)
[2024-06-24] MEDS: Valsartan 40 MG TABLET 20 MG PO ×2 (08:24→22:09)
[2024-06-24] MEDS: amLODIPine Besylate 5 MG TABLET PO (08:24)
--- NOTE | 2024-06-24 11:23 | P.PNIM_ITS ---
Subjective Subjective Date of Service: 06/24/24 Interval History: Still having alot of pain in the hand at the level of the wrist with no erythema but tender she has history of gout and uric acid is elevated Physical Exam 2 Vital Signs: Vital Signs: Last Vital Signs Temp 98.0 F 06/24/24 08:00 Pulse 98 06/24/24 08:00 Resp 20 06/24/24 08:00 BP 127/75 06/24/24 08:00 Pulse Ox 95 06/24/24 08:00 O2 Del Method Room Air 06/24/24 08:00 BMI result Body Mass Index 32.0 General: AO X 3, no acute distress Resp: CTA bilateral CVS: S1,S2,RRR GI: +BS, NT, no distention Skin: No rash MSK: tenderness in hypothenar, and now tender at the wrist--no erythema Neuro: motor grossly intact Psych: appropriate affect Objective Data Active Medications Acetaminophen (Acetaminophen 325 Mg Tablet) 650 mg PO Q6H PRN PRN Reason: Pain, Mild (Pain Scale 1-3), fever or headache Last Admin: 06/22/24 17:49 Dose: 650 mg Documented By: CHESTER Amlodipine Besylate (Amlodipine Besylate 5 Mg Tablet) 5 mg PO DAILY [facility]; Protocol Last Admin: 06/24/24 08:24 Dose: 5 mg Documented By: CHESTER Aspirin (Aspirin Enteric Coated 81 Mg Tablet.Dr) 81 mg PO DAILY [facility] Last Admin: 06/24/24 08:21 Dose: 81 mg Documented By: CHESTER Atorvastatin Calcium (Atorvastatin Calcium 40 Mg Tablet) 40 mg PO BEDTIME [facility] Last Admin: 06/23/24 20:40 Dose: 40 mg Documented By: NORA Benzonatate (Benzonatate 100 Mg Capsule) 100 mg PO TID PRN PRN Reason: Cough Calcium Carbonate (Calcium Carbonate 750 Mg Tab.Chew) 750 mg PO Q4H PRN PRN Reason: Heartburn Empagliflozin (Empagliflozin 10 Mg Tablet) 10 mg PO DAILY [facility] Last Admin: 06/24/24 08:21 Dose: 10 mg Documented By: CHESTER Glucose (Glucose Gel 15 Gm Gel..Gram.) 15 gm PO Q15M PRN; Protocol PRN Reason: per Hypoglycemia Standing Ord. Dextrose (D10) 250 mls @ 750 mls/hr IV Q15M PRN; Protocol PRN Reason: per Hypoglycemia Standing Ord. Ceftriaxone Sodium 1 gm/ (Sodium Chloride) 50 mls @ 100 mls/hr IV Q24H [facility] Last Infusion: 06/23/24 15:48 Dose: Infused Documented By: CHESTER Lactated Ringer's (Lr) 1,000 mls @ 80 mls/hr IVCONT .[id number] [facility] Last Admin: 06/24/24 05:43 Dose: 80 mls/hr Documented By: NORA Insulin Glargine (Insulin Glargine,Hum.Rec.Anlog 100 Unit/Ml 10 Ml Vial) 17 unit SUBCUT BEDTIME [facility] Last Admin: 06/23/24 20:41 Dose: 17 unit Documented By: NORA Insulin Human Lispro (Insulin Lispro 100 Unit/Ml 3 Ml Vial) 0 unit SUBCUT QIDACHS [facility]; Protocol Last Admin: 06/24/24 07:54 Dose: Not Given Documented By: CHESTER Non-Admin Reason: No Insulin Coverage Levothyroxine Sodium (Levothyroxine Sodium 25 Mcg Tablet) 25 mcg PO DAILY@0600 [facility] Last Admin: 06/24/24 05:42 Dose: 25 mcg Documented By: NORA Magnesium Hydroxide (Milk Of Magnesia 30 Ml Oral.Susp) 30 ml PO DAILY PRN PRN Reason: Constipation Last Admin: 06/19/24 06:03 Dose: 30 ml Documented By: ENOC Melatonin (Melatonin 3 Mg Tablet) 6 mg PO BEDTIME PRN PRN Reason: Insomnia Last Admin: 06/23/24 20:41 Dose: 6 mg Documented By: NORA Metoprolol Succinate (Metoprolol Succinate Er 100 Mg Tab.Er.24h) 200 mg PO DAILY [facility]; Protocol Last Admin: 06/24/24 08:24 Dose: 200 mg Documented By: CHESTER Mirabegron (Mirabegron 25 Mg Tab.Er.24h) 25 mg PO DAILY [facility] Last Admin: 06/24/24 08:21 Dose: 25 mg Documented By: CHESTER Multivitamins/Vitamin C (Multivitamin Tablet) 1 tab PO DAILY [facility] Last Admin: 06/24/24 08:21 Dose: 1 tab Documented By: CHESTER Ondansetron HCl (Ondansetron Hcl 4 Mg/2 Ml Vial) 4 mg IVPUSH Q8H PRN PRN Reason: Nausea and Vomiting Oxycodone HCl (Oxycodone Hcl Immed Release 5 Mg Tablet) 5 mg PO Q6H PRN PRN Reason: Pain, Severe (Pain Scale 7-10) Last Admin: 06/24/24 08:19 Dose: 5 mg Documented By: CHESTER Polyethylene Glycol (Polyethylene Glycol 3350 17 Gm Powd.Pack) 17 gm PO DAILY PRN PRN Reason: Constipation Last Admin: 06/22/24 08:44 Dose: 17 gm Documented By: CHESTER Sodium Chloride (0.9 % Sodium Chloride Flush 3 Ml Syringe) 3 ml IVFLUSH QSHIFT [facility] Last Admin: 06/24/24 08:19 Dose: Not Given Documented By: CHESTER Non-Admin Reason: IV Running Valsartan (Valsartan 40 Mg Tablet) 20 mg PO BID [facility]; Protocol Last Admin: 06/24/24 08:24 Dose: 20 mg Documented By: CHESTER Warfarin Sodium (Warfarin Sodium 2 Mg Tablet) 2 mg PO SuTuThSa@1800 [facility] Last Admin: 06/23/24 17:30 Dose: 2 mg Documented By: CHESTER Warfarin Sodium (Warfarin Sodium 1 Mg Tablet) 1 mg PO MoWeFr@1800 [facility] Last Admin: 06/22/24 17:45 Dose: 1 mg Documented By: CHESTER Labs 06/23/24 15:11 06/24/24 07:16 Labs: Laboratory Results - last 24 hr 06/23/24 06/23/24 06/23/24 11:56 15:11 17:13 MCV 88.1 MCH 28.4 MCHC 32.2 RDW 15.5 Plt Count 293 MPV 8.6 L Absolute Nucleated RBC 0.000 Nucleated RBC % (auto) 0.0 PT INR Anion Gap 12 Estim Creat Clear Calc 19.4 Estimated GFR 19 POC Glucose 171 H 191 H Random Glucose 211 H Uric Acid Calcium 8.8 06/23/24 06/24/24 06/24/24 20:25 07:16 07:37 MCV MCH MCHC RDW Plt Count MPV Absolute Nucleated RBC Nucleated RBC % (auto) PT 33.3 H INR 2.7 H Anion Gap 13 Estim Creat Clear Calc 21.1 Estimated GFR 21 POC Glucose 227 H 132 H Random Glucose 122 H Uric Acid 7.1 H Calcium 9.1 Microbiology Microbiology Results: Microbiology 06/18/24 08:25 Blood Culture - Final Blood - Venous No growth after 5 days. 06/18/24 08:25 Blood Culture - Final Blood - Venous No growth after 5 days. Assessment and Plan (1) Acute UTI: Status: Acute (2) Gram-positive bacteremia: Status: Acute Plan 83-year-old female with a PMH significant for?chronic Coumadin, chronic systolic CHF (EF 45-50%, , MR), CAD, CKD 3, insulin-dependent type 2 diabetes, hypothyroidism, HTN, and neurogenic bladder with suprapubic catheter who presents to the ED with sudden onset confusion, difficulty speaking, and weakness being worked for stroke, has uti, and now gram posiitive cocci bacteremia Acute encephalpathy likely related sepsis, uti. resolved uti--continue ceftriaxone to cefuroxime at dc Staph epid and hominis bacteremia, possibly contamination -repeat culture 06/18 negative x 48 hrs -contineu vanco 06/18, if worsening Dapto, if MSSA then kefzol -echo -no endocarditis -discussed with id and no further treatment Acute encephalopathy, aphasia, and weakness--resolved, likely from acute infection, CT and MRI no cva DOROTHY on CKD III, better, Cr has trended. suspect new baseline -nephro consult -follow bmp Hyperkalemia--lokelma and resolved. Chronic metabolic acidosis--d/t CKD, stable, monitor, presently normal Persistent AFib, rate controlled -Continue Coumadin, INR goal of 2-3 -Monitor INR HFrEF, compensated, hold lasix d/t dorothy Insulin-dependent type 2 diabetes -Sliding-scale insulin, Lantus -Continue Jardiance -Diabetic diet HypOthyroidism -Continue levothyroxine HTN -Continue amlodipine, valsartan Hand pain.. xray no fracture, arthritic changes, uric acid high, suspect acute gout, trial of colchicine, and Prednisone and ortho consult if not improving Full Code DVT Prophylaxis: On Coumadin need for inpt; stroke work up, sepsis needing IV Abx and awaiting further PT is recommending STR, possibly tomorrow Quality Stroke Does the patient have a stroke diagnosis?: No Reason for No Anti-thrombotic by Day Two: Contraindicated (Pt on Coumadin, not a candidate for tNK) VTE Prior VTE?: No VTE Risk Level:: Medical - moderate - high VTE Device Contraindication: Treatment Not Indicated VTE Drug Contraindication: N/A - Med Ordered
[2024-06-24 11:36] LABS: Glucose, Whole Blood 105 mg/dL (60-115)
[2024-06-24] MEDS: predniSONE 10 MG TABLET 30 MG PO (11:38)
[2024-06-24] MEDS: Colchicine 0.6 MG TABLET PO (11:38)
--- NOTE | 2024-06-24 13:16 | MHC.CM.PN ---
Pt was accepted at [facility], but said she is in pain today in her hand and cannot use her hand at all. She uses a walker. Provider cancelled her DC. STR will have to re-submit for auth when she is ready for DC.
[2024-06-24] MEDS: cefTRIAXone sodium 1 GM in 0.9 % Sodium Chloride 50 ML IV (14:33)
[2024-06-24 15:53] LABS: Glucose, Whole Blood 190 mg/dL (60-115)
[2024-06-24] MEDS: Insulin Lispro 100 UNIT/ML 3 ML VIAL SUBCUT ×2 (17:19→22:09)
[2024-06-24] MEDS: Warfarin Sodium 1 MG TABLET PO (17:30)
--- NOTE | 2024-06-24 19:44 | PM.EVENT ---
Event Note Date of Service: 06/24/24 Event Note: X-Rays of left hand reviewed and impression is as follows: 1. No acute fracture or dislocation. 2. Moderate to severe degenerative osteoarthritis of the first carpometacarpal joint. 3. Mild to moderate multifocal degenerative osteoarthritis in the interphalangeal joints. Labs reviewed: Uric Acid 7.1 No acute orthopedic intervention needed for gout of left wrist Time Spent With Patient Time: Total time managing care of this patient today ____ minutes.
[2024-06-24 20:32] LABS: Glucose, Whole Blood 244 mg/dL (60-115)
[2024-06-24] MEDS: Atorvastatin Calcium 40 MG TABLET PO (22:09)
[2024-06-24] MEDS: 0.9 % Sodium Chloride Flush 3 ML SYRINGE IVFLUSH (22:12)
[2024-06-24] MEDS: Lactated Ringers 1,000 ML 100 ML IVCONT (22:12)
[2024-06-24] MEDS: Melatonin 3 MG TABLET 6 MG PO (22:18)
[2024-06-25 03:43] VITALS: BP 118/58; PULSE 84; RESP 18; TEMP 36.6; O2SAT 95
[2024-06-25] MEDS: Levothyroxine Sodium 25 MCG TABLET PO (06:32)
[2024-06-25 06:35] LABS: INTERNATIONAL NORM RATIO 3.2 (0.9-1.1); Prothrombin Time 38.7 SEC (11.1-13.3)
[2024-06-25 07:00] LABS: Anion Gap 15 (12-20); Blood Urea Nitrogen 32 mg/dL (9-16); Calcium 8.6 mg/dL (8.4-10.2); Carbon Dioxide 17 mmol/L (22-29); Chloride 107 mmol/L (96-108); Creatinine Clr Calc Pharmacy 22.2; Estimated Glomerular Filt Rate 23; Glucose Random 197 mg/dL (60-115); Potassium 4.8 mmol/L (3.3-5.1); Sodium 134 mmol/L (135-145)
[2024-06-25 07:17] LABS: Glucose, Whole Blood 165 mg/dL (60-115)
[2024-06-25 07:45] VITALS: BP 127/75; PULSE 97; RESP 20; TEMP 36.2; O2SAT 98
[2024-06-25] MEDS: Insulin Lispro 100 UNIT/ML 3 ML VIAL SUBCUT ×4 (09:29→21:10)
[2024-06-25] MEDS: predniSONE 10 MG TABLET 30 MG PO (09:29)
[2024-06-25] MEDS: Multivitamin TABLET 1 TAB PO (09:30)
[2024-06-25] MEDS: amLODIPine Besylate 5 MG TABLET PO (09:30)
[2024-06-25] MEDS: Aspirin Enteric Coated 81 MG TABLET.DR PO (09:30)
[2024-06-25] MEDS: Empagliflozin 10 MG TABLET PO (09:30)
[2024-06-25] MEDS: Mirabegron 25 MG TAB.ER.24H PO (09:30)
[2024-06-25] MEDS: Valsartan 40 MG TABLET 20 MG PO ×2 (09:30→21:11)
[2024-06-25] MEDS: Lactated Ringers 1,000 ML 100 ML IVCONT (09:31)
[2024-06-25] MEDS: 0.9 % Sodium Chloride Flush 3 ML SYRINGE IVFLUSH ×3 (09:31→21:12)
[2024-06-25] MEDS: Metoprolol Succinate ER 100 MG TAB.ER.24H 200 MG PO (09:31)
[2024-06-25 11:08] LABS: Glucose, Whole Blood 219 mg/dL (60-115)
[2024-06-25 11:23] VITALS: BP 119/57; PULSE 92; RESP 18; TEMP 36.5; O2SAT 98
--- NOTE | 2024-06-25 12:08 | P.PNIM_ITS ---
Subjective Subjective Date of Service: 06/25/24 Interval History: f/u on encephalopathy, dorothy, now pain in the left hand c/w acute gout she still has pain inthe left hand but better with steroid, recent urine culture growing gram negaive alexsandra Physical Exam 2 Vital Signs: Vital Signs: Last Vital Signs Temp 97.7 F 06/25/24 11:23 Pulse 92 06/25/24 11:23 Resp 18 06/25/24 11:23 BP 119/57 L 06/25/24 11:23 Pulse Ox 98 06/25/24 11:23 O2 Del Method Room Air 06/25/24 11:23 BMI result Body Mass Index 32.0 General: AO X 3, no acute distress Resp: CTA bilateral CVS: S1,S2,RRR GI: +BS, NT, no distention Skin: No rash MSK: left hand is less sowllen and less tender and has no redness Neuro: motor grossly intact Psych: appropriate affect Objective Data Active Medications Acetaminophen (Acetaminophen 325 Mg Tablet) 650 mg PO Q6H PRN PRN Reason: Pain, Mild (Pain Scale 1-3), fever or headache Last Admin: 06/22/24 17:49 Dose: 650 mg Documented By: CHESTER Amlodipine Besylate (Amlodipine Besylate 5 Mg Tablet) 5 mg PO DAILY [facility]; Protocol Last Admin: 06/25/24 09:30 Dose: 5 mg Documented By: MAGGIE Aspirin (Aspirin Enteric Coated 81 Mg Tablet.) 81 mg PO DAILY [facility] Last Admin: 06/25/24 09:30 Dose: 81 mg Documented By: MAGGIE Atorvastatin Calcium (Atorvastatin Calcium 40 Mg Tablet) 40 mg PO BEDTIME [facility] Last Admin: 06/24/24 22:09 Dose: 40 mg Documented By: MELA Benzonatate (Benzonatate 100 Mg Capsule) 100 mg PO TID PRN PRN Reason: Cough Calcium Carbonate (Calcium Carbonate 750 Mg Tab.Chew) 750 mg PO Q4H PRN PRN Reason: Heartburn Empagliflozin (Empagliflozin 10 Mg Tablet) 10 mg PO DAILY [facility] Last Admin: 06/25/24 09:30 Dose: 10 mg Documented By: MAGGIE Glucose (Glucose Gel 15 Gm Gel..Gram.) 15 gm PO Q15M PRN; Protocol PRN Reason: per Hypoglycemia Standing Ord. Dextrose (D10) 250 mls @ 750 mls/hr IV Q15M PRN; Protocol PRN Reason: per Hypoglycemia Standing Ord. Ceftriaxone Sodium 1 gm/ (Sodium Chloride) 50 mls @ 100 mls/hr IV Q24H [facility] Last Infusion: 06/24/24 15:07 Dose: Infused Documented By: CHESTER Lactated Ringer's (Lr) 1,000 mls @ 80 mls/hr IVCONT .[id number] [facility] Last Admin: 06/25/24 09:31 Dose: 100 mls/hr Documented By: MAGGIE Insulin Glargine (Insulin Glargine,Hum.Rec.Anlog 100 Unit/Ml 10 Ml Vial) 17 unit SUBCUT BEDTIME [facility] Last Admin: 06/23/24 20:41 Dose: 17 unit Documented By: NORA Insulin Human Lispro (Insulin Lispro 100 Unit/Ml 3 Ml Vial) 0 unit SUBCUT QIDACHS [facility]; Protocol Last Admin: 06/25/24 09:29 Dose: 2 unit Documented By: MAGGIE Levothyroxine Sodium (Levothyroxine Sodium 25 Mcg Tablet) 25 mcg PO DAILY@0600 [facility] Last Admin: 06/25/24 06:32 Dose: 25 mcg Documented By: MELA Magnesium Hydroxide (Milk Of Magnesia 30 Ml Oral.Susp) 30 ml PO DAILY PRN PRN Reason: Constipation Last Admin: 06/19/24 06:03 Dose: 30 ml Documented By: ENOC Melatonin (Melatonin 3 Mg Tablet) 6 mg PO BEDTIME PRN PRN Reason: Insomnia Last Admin: 06/24/24 22:18 Dose: 6 mg Documented By: MELA Metoprolol Succinate (Metoprolol Succinate Er 100 Mg Tab.Er.24h) 200 mg PO DAILY [facility]; Protocol Last Admin: 06/25/24 09:31 Dose: 200 mg Documented By: MAGGIE Mirabegron (Mirabegron 25 Mg Tab.Er.24h) 25 mg PO DAILY [facility] Last Admin: 06/25/24 09:30 Dose: 25 mg Documented By: MAGGIE Multivitamins/Vitamin C (Multivitamin Tablet) 1 tab PO DAILY [facility] Last Admin: 06/25/24 09:30 Dose: 1 tab Documented By: MAGGIE Ondansetron HCl (Ondansetron Hcl 4 Mg/2 Ml Vial) 4 mg IVPUSH Q8H PRN PRN Reason: Nausea and Vomiting Oxycodone HCl (Oxycodone Hcl Immed Release 5 Mg Tablet) 5 mg PO Q6H PRN PRN Reason: Pain, Severe (Pain Scale 7-10) Last Admin: 06/24/24 17:19 Dose: 5 mg Documented By: CHESTER Polyethylene Glycol (Polyethylene Glycol 3350 17 Gm Powd.Pack) 17 gm PO DAILY PRN PRN Reason: Constipation Last Admin: 06/22/24 08:44 Dose: 17 gm Documented By: CHESTER Prednisone (Prednisone 10 Mg Tablet) 30 mg PO DAILY [facility] Last Admin: 06/25/24 09:29 Dose: 30 mg Documented By: MAGGIE Sodium Chloride (0.9 % Sodium Chloride Flush 3 Ml Syringe) 3 ml IVFLUSH QSKSFT [facility] Last Admin: 06/25/24 09:31 Dose: 3 ml Documented By: MAGGIE Valsartan (Valsartan 40 Mg Tablet) 20 mg PO BID [facility]; Protocol Last Admin: 06/25/24 09:30 Dose: 20 mg Documented By: MAGGIE Warfarin Sodium (Warfarin Sodium 2 Mg Tablet) 2 mg PO SuTuThSa@1800 [facility] Last Admin: 06/23/24 17:30 Dose: 2 mg Documented By: CHESTER Warfarin Sodium (Warfarin Sodium 1 Mg Tablet) 1 mg PO MoWeFr@1800 [facility] Last Admin: 06/24/24 17:30 Dose: 1 mg Documented By: CHESTER Labs 06/23/24 15:11 06/25/24 06:17 Labs: Laboratory Results - last 24 hr 06/24/24 06/24/24 06/25/24 15:49 20:11 06:17 PT 38.7 H INR 3.2 H Anion Gap 15 Estim Creat Clear Calc 22.2 Estimated GFR 23 POC Glucose 190 H 244 H Random Glucose 197 H Calcium 8.6 06/25/24 06/25/24 07:09 10:55 PT INR Anion Gap Estim Creat Clear Calc Estimated GFR POC Glucose 165 H 219 H Random Glucose Calcium Microbiology Microbiology Results: Microbiology 06/23/24 Unknown Urine Culture - Preliminary Urine Other - Suprapubic Gram negative alexsandra Assessment and Plan (1) Acute UTI: Status: Acute (2) Gram-positive bacteremia: Status: Acute Plan 83-year-old female with a PMH significant for?chronic Coumadin, chronic systolic CHF (EF 45-50%, , MR), CAD, CKD 3, insulin-dependent type 2 diabetes, hypothyroidism, HTN, and neurogenic bladder with suprapubic catheter who presents to the ED with sudden onset confusion, difficulty speaking, and weakness being worked for stroke, has uti, and now gram posiitive cocci bacteremia Acute encephalopathy, aphasia, and weakness, initially concern for cva, CT and MRI no cva, encephalopathy has resolved, possible related to UTI uti--continue ceftriaxone, culture GNR sensitivity pending, continue ceftriaxone Staph epid and hominis bacteremia, possibly contamination -repeat culture 06/18 negative x 48 hrs -was treated with Vanco and DC'd when sensitivity came back, id suggest contamination and therefore no indication for residential treatment -echo -no endocarditis DOROTHY on CKD 4, , Cr has trended down and presently within baseline, stop ivf -nephro consult -follow bmp Hyperkalemia--lokelma and resolved. Chronic metabolic acidosis--d/t CKD, stable, consider bicab replacement if not improving Persistent AFib, rate controlled -Continue Coumadin, INR goal of 2-3, hold coumadin today for inr 3.2 -Monitor INR HFrEF, compensated. holding Lasix for creatine trending up, resume tomorrow if Cr stable Insulin-dependent type 2 diabetes, hyperglycemia d/t steoid -Sliding-scale insulin, Lantus -Continue Jardiance -Diabetic diet HypOthyroidism -Continue levothyroxine HTN -Continue amlodipine, valsartan Hand pain.. xray no fracture, arthritic changes, uric acid high, suspect acute gout, trial of colchicine, and Prednisone and ortho consult if not improving Full Code DVT Prophylaxis: On Coumadin need for inpt; stroke work up, sepsis needing IV Abx and awaiting further PT is recommending STRl when medically better, including culture sensitivity available. Quality Stroke Does the patient have a stroke diagnosis?: No Reason for No Anti-thrombotic by Day Two: Contraindicated (Pt on Coumadin, not a candidate for tNK) VTE Prior VTE?: No VTE Risk Level:: Medical - moderate - high VTE Device Contraindication: Treatment Not Indicated VTE Drug Contraindication: N/A - Med Ordered
[2024-06-25] MEDS: Milk of Magnesia 30 ML ORAL.SUSP PO (12:11)
[2024-06-25 15:07] VITALS: BP 113/65; PULSE 90; RESP 20; TEMP 36.1; O2SAT 96
[2024-06-25 16:03] LABS: Glucose, Whole Blood 301 mg/dL (60-115)
[2024-06-25 16:38] LABS: Glucose, Whole Blood 289 mg/dL (60-115)
[2024-06-25] MEDS: oxyCODONE HCl Immed Release 5 MG TABLET PO (18:24)
[2024-06-25 19:19] VITALS: BP 122/66; PULSE 103; RESP 20; TEMP 36.1; O2SAT 98
[2024-06-25 20:20] LABS: Glucose, Whole Blood 313 mg/dL (60-115)
[2024-06-25] MEDS: Atorvastatin Calcium 40 MG TABLET PO (21:11)
[2024-06-25] MEDS: Insulin Glargine,Hum.rec.anlog 100 UNIT/ML 10 ML VIAL 20 UNIT SUBCUT (21:11)
[2024-06-25] MEDS: Melatonin 3 MG TABLET 6 MG PO (21:16)
[2024-06-25 22:14] LABS: Anion Gap 15 (12-20); Carbon Dioxide 20 mmol/L (22-29); Chloride 104 mmol/L (96-108); Potassium 5.3 mmol/L (3.3-5.1); Sodium 134 mmol/L (135-145)
[2024-06-26] VITALS (7 sets, daily range): BP systolic 113–141; BP diastolic 59–79; PULSE 72–108; RESP 16–20; TEMP 35.5–36.5; O2SAT 95–99
[2024-06-26] MEDS: Levothyroxine Sodium 25 MCG TABLET PO (06:05)
[2024-06-26 06:27] LABS: INTERNATIONAL NORM RATIO 3.1 (0.9-1.1); Prothrombin Time 37.3 SEC (11.1-13.3)
[2024-06-26 06:47] LABS: Anion Gap 14 (12-20); Blood Urea Nitrogen 38 mg/dL (9-16); Calcium 9.1 mg/dL (8.4-10.2); Carbon Dioxide 20 mmol/L (22-29); Chloride 106 mmol/L (96-108); Creatinine Clr Calc Pharmacy 23.9; Estimated Glomerular Filt Rate 25; Glucose Random 235 mg/dL (60-115); Potassium 4.7 mmol/L (3.3-5.1); Sodium 135 mmol/L (135-145)
[2024-06-26 07:14] LABS: Glucose, Whole Blood 214 mg/dL (60-115)
[2024-06-26] MEDS: Metoprolol Succinate ER 100 MG TAB.ER.24H 200 MG PO (08:03)
[2024-06-26] MEDS: predniSONE 10 MG TABLET 30 MG PO (08:03)
[2024-06-26] MEDS: Aspirin Enteric Coated 81 MG TABLET.DR PO (08:04)
[2024-06-26] MEDS: Mirabegron 25 MG TAB.ER.24H PO (08:04)
[2024-06-26] MEDS: Valsartan 40 MG TABLET 20 MG PO ×2 (08:04→20:57)
[2024-06-26] MEDS: Multivitamin TABLET 1 TAB PO (08:04)
[2024-06-26] MEDS: amLODIPine Besylate 5 MG TABLET PO (08:04)
[2024-06-26] MEDS: Insulin Lispro 100 UNIT/ML 3 ML VIAL SUBCUT ×4 (08:04→20:57)
[2024-06-26] MEDS: Empagliflozin 10 MG TABLET PO (08:04)
[2024-06-26] MEDS: 0.9 % Sodium Chloride Flush 3 ML SYRINGE IVFLUSH ×3 (08:05→21:01)
--- NOTE | 2024-06-26 10:18 | HO.PM.IMPN ---
Subjective Subjective Date of Service: 06/26/24 Interval History: seen and examined reports hand pain but feels improved Review of Systems Negative except HPI/interval history. Physical Exam Vital Signs: Vital Signs: Last Vital Signs Temp 96.9 F 06/26/24 07:33 Pulse 87 06/26/24 07:33 Resp 18 06/26/24 07:33 BP 113/68 06/26/24 07:33 Pulse Ox 98 06/26/24 07:33 O2 Del Method Room Air 06/26/24 07:33 BMI result Body Mass Index 32.0 Const: Other: General - no acute distress, appears comfortable Cardiovascular - regular rate and rhythm, S1-S2 Lungs - normal respiratory effort, clear to auscultation bilaterally, no wheezing Abdomen - soft, nontender, no rebound or guarding Extremities - left hand swelling, improving ROM Neuro - awake and alert, no focal deficits Objective Data Active Medications Acetaminophen (Acetaminophen 325 Mg Tablet) 650 mg PO Q6H PRN PRN Reason: Pain, Mild (Pain Scale 1-3), fever or headache Last Admin: 06/22/24 17:49 Dose: 650 mg Documented By: CHESTER Amlodipine Besylate (Amlodipine Besylate 5 Mg Tablet) 5 mg PO DAILY [facility]; Protocol Last Admin: 06/26/24 08:04 Dose: 5 mg Documented By: MAGGIE Aspirin (Aspirin Enteric Coated 81 Mg Tablet.Dr) 81 mg PO DAILY [facility] Last Admin: 06/26/24 08:04 Dose: 81 mg Documented By: MAGGIE Atorvastatin Calcium (Atorvastatin Calcium 40 Mg Tablet) 40 mg PO BEDTIME [facility] Last Admin: 06/25/24 21:11 Dose: 40 mg Documented By: MELA Benzonatate (Benzonatate 100 Mg Capsule) 100 mg PO TID PRN PRN Reason: Cough Calcium Carbonate (Calcium Carbonate 750 Mg Tab.Chew) 750 mg PO Q4H PRN PRN Reason: Heartburn Empagliflozin (Empagliflozin 10 Mg Tablet) 10 mg PO DAILY [facility] Last Admin: 06/26/24 08:04 Dose: 10 mg Documented By: MAGGIE Glucose (Glucose Gel 15 Gm Gel..Gram.) 15 gm PO Q15M PRN; Protocol PRN Reason: per Hypoglycemia Standing Ord. Dextrose (D10) 250 mls @ 750 mls/hr IV Q15M PRN; Protocol PRN Reason: per Hypoglycemia Standing Ord. Insulin Glargine (Insulin Glargine,Hum.Rec.Anlog 100 Unit/Ml 10 Ml Vial) 20 unit SUBCUT BEDTIME [facility] Last Admin: 06/25/24 21:11 Dose: 20 unit Documented By: MELA Insulin Human Lispro (Insulin Lispro 100 Unit/Ml 3 Ml Vial) 0 unit SUBCUT QIDACHS [facility]; Protocol Last Admin: 06/26/24 08:04 Dose: 4 unit Documented By: MAGGIE Levothyroxine Sodium (Levothyroxine Sodium 25 Mcg Tablet) 25 mcg PO DAILY@0600 [facility] Last Admin: 06/26/24 06:05 Dose: 25 mcg Documented By: MELA Magnesium Hydroxide (Milk Of Magnesia 30 Ml Oral.Susp) 30 ml PO DAILY PRN PRN Reason: Constipation Last Admin: 06/25/24 12:11 Dose: 30 ml Documented By: MAGGIE Melatonin (Melatonin 3 Mg Tablet) 6 mg PO BEDTIME PRN PRN Reason: Insomnia Last Admin: 06/25/24 21:16 Dose: 6 mg Documented By: MELA Metoprolol Succinate (Metoprolol Succinate Er 100 Mg Tab.Er.24h) 200 mg PO DAILY [facility]; Protocol Last Admin: 06/26/24 08:03 Dose: 200 mg Documented By: MAGGIE Mirabegron (Mirabegron 25 Mg Tab.Er.24h) 25 mg PO DAILY [facility] Last Admin: 06/26/24 08:04 Dose: 25 mg Documented By: MAGGIE Multivitamins/Vitamin C (Multivitamin Tablet) 1 tab PO DAILY [facility] Last Admin: 06/26/24 08:04 Dose: 1 tab Documented By: MAGGIE Nystatin (Nystatin Cream 15 Gm Tube) 1 appl TOPICAL BID [facility]; Protocol Ondansetron HCl (Ondansetron Hcl 4 Mg/2 Ml Vial) 4 mg IVPUSH Q8H PRN PRN Reason: Nausea and Vomiting Oxycodone HCl (Oxycodone Hcl Immed Release 5 Mg Tablet) 5 mg PO Q6H PRN PRN Reason: Pain, Severe (Pain Scale 7-10) Last Admin: 06/25/24 18:24 Dose: 5 mg Documented By: MAGGIE Polyethylene Glycol (Polyethylene Glycol 3350 17 Gm Powd.Pack) 17 gm PO DAILY PRN PRN Reason: Constipation Last Admin: 06/22/24 08:44 Dose: 17 gm Documented By: CHESTER Prednisone (Prednisone 10 Mg Tablet) 30 mg PO DAILY [facility] Last Admin: 06/26/24 08:03 Dose: 30 mg Documented By: MAGGIE Sodium Chloride (0.9 % Sodium Chloride Flush 3 Ml Syringe) 3 ml IVFLUSH QSHIFT [facility] Last Admin: 06/26/24 08:05 Dose: 3 ml Documented By: MAGGIE Valsartan (Valsartan 40 Mg Tablet) 20 mg PO BID [facility]; Protocol Last Admin: 06/26/24 08:04 Dose: 20 mg Documented By: MAGGIE Warfarin Sodium (Warfarin Sodium 2 Mg Tablet) 2 mg PO SuTuThSa@1800 [facility] Last Admin: 06/23/24 17:30 Dose: 2 mg Documented By: CHESTER Warfarin Sodium (Warfarin Sodium 1 Mg Tablet) 1 mg PO MoWeFr@1800 [facility] Last Admin: 06/24/24 17:30 Dose: 1 mg Documented By: CHESTER Labs 06/23/24 15:11 06/26/24 06:09 Labs: Laboratory Results - last 24 hr 06/25/24 06/25/24 06/25/24 10:55 15:59 16:35 PT INR Anion Gap Estim Creat Clear Calc Estimated GFR POC Glucose 219 H 301 H 289 H Random Glucose Calcium 06/25/24 06/25/24 06/26/24 20:14 21:39 06:09 PT 37.3 H INR 3.1 H Anion Gap 15 14 Estim Creat Clear Calc 23.9 Estimated GFR 25 POC Glucose 313 H Random Glucose 235 H Calcium 9.1 06/26/24 07:04 PT INR Anion Gap Estim Creat Clear Calc Estimated GFR POC Glucose 214 H Random Glucose Calcium Microbiology Microbiology Results: Microbiology 06/23/24 Unknown Urine Culture - Final Urine Other - Suprapubic Pseudomonas aeruginosa Achromobacter xylosoxidans Assessment and Plan (1) Acute UTI: Status: Acute Plan 83-year-old female with a PMH significant for?chronic Coumadin, chronic systolic CHF (EF 45-50%, , MR), CAD, CKD 3, insulin-dependent type 2 diabetes, hypothyroidism, HTN, and neurogenic bladder with suprapubic catheter who presents to the ED with sudden onset confusion, difficulty speaking, and weakness being worked for stroke, has uti, and now gram posiitive cocci bacteremia Acute encephalopathy initially conern over cva, which has been ruled out now resolved, likey 2/ to UTI uti Initial cultures negative, however was on empiric treatment for possible bacteremia, C next point Repeat cultures growing less than 100 K of Pseudomonas and archomobacter rocepin stopped -- will d/w ID if this needs to be treated Staph epid and hominis bacteremia, possibly contamination -repeat culture 06/18 negative x 48 hrs -was treated with Vanco and DC'd when sensitivity came back, id suggest contamination and therefore no indication for alf treatment -echo -no endocarditis DOROTHY on CKD 4 Improved with fluids Appears to be at baseline now Hyperkalemia--lokelma and resolved. Chronic metabolic acidosis--d/t CKD, stable, consider bicab replacement if not improving Persistent AFib, rate controlled -Continue Coumadin, INR goal of 2-3, hold coumadin today for inr 3.2 -Monitor INR HFrEF, compensated Lasix was on hold due to acute kidney injury Will restart Insulin-dependent type 2 diabetes, hyperglycemia d/t steoid -Sliding-scale insulin, Lantus -Continue Jardiance -Diabetic diet HypOthyroidism -Continue levothyroxine HTN -Continue amlodipine, valsartan Gout flare Day 3 of prednisone, improving Full Code DVT Prophylaxis: On Coumadin Dispo: Anticipated to go to short-term rehab Patient with ongoing hand pain as well as abnormal urine culture, pending ID follow-up Anticipate discharge in the next 24 hours Quality Stroke Does the patient have a stroke diagnosis?: No Reason for No Anti-thrombotic by Day Two: Contraindicated (Pt on Coumadin, not a candidate for tNK) VTE Prior VTE?: No VTE Risk Level:: Medical - moderate - high VTE Device Contraindication: Treatment Not Indicated VTE Drug Contraindication: N/A - Med Ordered
[2024-06-26 11:02] LABS: Glucose, Whole Blood 264 mg/dL (60-115)
[2024-06-26] MEDS: Furosemide 20 MG TABLET PO (11:38)
[2024-06-26] MEDS: Nystatin Cream 15 GM TUBE 1 APPL TOPICAL ×2 (11:39→20:58)
[2024-06-26 16:24] LABS: Glucose, Whole Blood 294 mg/dL (60-115)
[2024-06-26] MEDS: Warfarin Sodium 2 MG TABLET PO (17:44)
[2024-06-26 19:58] LABS: Glucose, Whole Blood 420 mg/dL (60-115)
[2024-06-26] MEDS: Atorvastatin Calcium 40 MG TABLET PO (20:57)
[2024-06-26] MEDS: Insulin Glargine,Hum.rec.anlog 100 UNIT/ML 10 ML VIAL 20 UNIT SUBCUT (20:57)
[2024-06-26] MEDS: Insulin Lispro 100 UNIT/ML 3 ML VIAL 10 UNIT SUBCUT (20:57)
[2024-06-26] MEDS: Melatonin 3 MG TABLET 6 MG PO (20:57)
[2024-06-27] VITALS (7 sets, daily range): BP systolic 127–141; BP diastolic 71–94; PULSE 78–95; RESP 18–20; TEMP 36.1–36.6; O2SAT 97–99
[2024-06-27] MEDS: Levothyroxine Sodium 25 MCG TABLET PO (05:57)
[2024-06-27 06:13] LABS: Prothrombin Time 36.1 SEC (11.1-13.3)
[2024-06-27 07:36] LABS: Glucose, Whole Blood 243 mg/dL (60-115)
[2024-06-27] MEDS: Insulin Lispro 100 UNIT/ML 3 ML VIAL SUBCUT ×4 (07:49→20:31)
[2024-06-27] MEDS: amLODIPine Besylate 5 MG TABLET PO (07:49)
[2024-06-27] MEDS: Multivitamin TABLET 1 TAB PO (07:50)
[2024-06-27] MEDS: Empagliflozin 10 MG TABLET PO (07:50)
[2024-06-27] MEDS: Valsartan 40 MG TABLET 20 MG PO ×2 (07:50→20:29)
[2024-06-27] MEDS: Metoprolol Succinate ER 100 MG TAB.ER.24H 200 MG PO (07:50)
[2024-06-27] MEDS: predniSONE 10 MG TABLET 30 MG PO (07:50)
[2024-06-27] MEDS: Mirabegron 25 MG TAB.ER.24H PO (07:51)
[2024-06-27] MEDS: Furosemide 20 MG TABLET PO (07:51)
[2024-06-27] MEDS: Aspirin Enteric Coated 81 MG TABLET.DR PO (07:51)
[2024-06-27] MEDS: 0.9 % Sodium Chloride Flush 3 ML SYRINGE IVFLUSH ×2 (07:51→16:19)
[2024-06-27 09:09] LABS: Hematocrit 38.4 % (37.0-47.0); Hemoglobin 12.2 g/dl (12.0-16.0); Mean Corpuscular HGB Conc 31.8 g/dl (31.0-35.0); Mean Corpuscular Hemoglobin 28.2 pg (27.0-33.0); Mean Corpuscular Volume 88.7 fL (80.0-98.0); Mean Platelet Volume 8.6 fL (9.4-12.3); Platelet Count 322 X10*3/uL (160-400); Red Blood Count 4.33 X10*6/uL (4.20-5.50); Red Cell Distribution Width 15.2 % (11.0-16.0)
[2024-06-27 09:30] LABS: Anion Gap 12 (12-20); Blood Urea Nitrogen 40 mg/dL (9-16); Calcium 8.9 mg/dL (8.4-10.2); Carbon Dioxide 25 mmol/L (22-29); Chloride 104 mmol/L (96-108); Creatinine Clr Calc Pharmacy 23.5; Estimated Glomerular Filt Rate 24; Glucose Random 298 mg/dL (60-115); Potassium 4.2 mmol/L (3.3-5.1); Sodium 137 mmol/L (135-145)
--- NOTE | 2024-06-27 11:15 | HO.PM.IMPN ---
Subjective Subjective Date of Service: 06/27/24 Interval History: seen and examined reports hand pain but feels improved Review of Systems Negative except HPI/interval history. Physical Exam Vital Signs: Vital Signs: Last Vital Signs Temp 97.0 F 06/27/24 07:40 Pulse 88 06/27/24 07:40 Resp 18 06/27/24 07:40 BP 141/78 H 06/27/24 07:40 Pulse Ox 99 06/27/24 07:40 O2 Del Method Room Air 06/27/24 07:40 BMI result Body Mass Index 32.0 Const: Other: General - no acute distress, appears comfortable Cardiovascular - regular rate and rhythm, S1-S2 Lungs - normal respiratory effort, clear to auscultation bilaterally, no wheezing Abdomen - soft, nontender, no rebound or guarding Extremities - left hand swelling, improving ROM Neuro - awake and alert, no focal deficits Objective Data Active Medications Acetaminophen (Acetaminophen 325 Mg Tablet) 650 mg PO Q6H PRN PRN Reason: Pain, Mild (Pain Scale 1-3), fever or headache Last Admin: 06/22/24 17:49 Dose: 650 mg Documented By: CHESTER Amlodipine Besylate (Amlodipine Besylate 5 Mg Tablet) 5 mg PO DAILY [facility]; Protocol Last Admin: 06/27/24 07:49 Dose: 5 mg Documented By: ANUP Aspirin (Aspirin Enteric Coated 81 Mg Tablet.Dr) 81 mg PO DAILY [facility] Last Admin: 06/27/24 07:51 Dose: 81 mg Documented By: ANUP Atorvastatin Calcium (Atorvastatin Calcium 40 Mg Tablet) 40 mg PO BEDTIME [facility] Last Admin: 06/26/24 20:57 Dose: 40 mg Documented By: MICHAELA Benzonatate (Benzonatate 100 Mg Capsule) 100 mg PO TID PRN PRN Reason: Cough Calcium Carbonate (Calcium Carbonate 750 Mg Tab.Chew) 750 mg PO Q4H PRN PRN Reason: Heartburn Empagliflozin (Empagliflozin 10 Mg Tablet) 10 mg PO DAILY [facility] Last Admin: 06/27/24 07:50 Dose: 10 mg Documented By: ANUP Furosemide (Furosemide 20 Mg Tablet) 20 mg PO DAILY [facility]; Protocol Last Admin: 06/27/24 07:51 Dose: 20 mg Documented By: ANUP Glucose (Glucose Gel 15 Gm Gel..Gram.) 15 gm PO Q15M PRN; Protocol PRN Reason: per Hypoglycemia Standing Ord. Dextrose (D10) 250 mls @ 750 mls/hr IV Q15M PRN; Protocol PRN Reason: per Hypoglycemia Standing Ord. Insulin Glargine (Insulin Glargine,Hum.Rec.Anlog 100 Unit/Ml 10 Ml Vial) 20 unit SUBCUT BEDTIME [facility] Last Admin: 06/26/24 20:57 Dose: 20 unit Documented By: MICHAELA Insulin Human Lispro (Insulin Lispro 100 Unit/Ml 3 Ml Vial) 0 unit SUBCUT QIDACHS [facility]; Protocol Last Admin: 06/27/24 07:49 Dose: 4 unit Documented By: ANUP Levothyroxine Sodium (Levothyroxine Sodium 25 Mcg Tablet) 25 mcg PO DAILY@0600 [facility] Last Admin: 06/27/24 05:57 Dose: 25 mcg Documented By: MICHAELA Magnesium Hydroxide (Milk Of Magnesia 30 Ml Oral.Susp) 30 ml PO DAILY PRN PRN Reason: Constipation Last Admin: 06/25/24 12:11 Dose: 30 ml Documented By: MAGGIE Melatonin (Melatonin 3 Mg Tablet) 6 mg PO BEDTIME PRN PRN Reason: Insomnia Last Admin: 06/26/24 20:57 Dose: 6 mg Documented By: MICHAELA Metoprolol Succinate (Metoprolol Succinate Er 100 Mg Tab.Er.24h) 200 mg PO DAILY [facility]; Protocol Last Admin: 06/27/24 07:50 Dose: 200 mg Documented By: ANUP Mirabegron (Mirabegron 25 Mg Tab.Er.24h) 25 mg PO DAILY [facility] Last Admin: 06/27/24 07:51 Dose: 25 mg Documented By: ANUP Multivitamins/Vitamin C (Multivitamin Tablet) 1 tab PO DAILY [facility] Last Admin: 06/27/24 07:50 Dose: 1 tab Documented By: ANUP Nystatin (Nystatin Cream 15 Gm Tube) 1 appl TOPICAL BID [facility]; Protocol Last Admin: 06/26/24 20:58 Dose: 1 appl Documented By: MICHAELA Ondansetron HCl (Ondansetron Hcl 4 Mg/2 Ml Vial) 4 mg IVPUSH Q8H PRN PRN Reason: Nausea and Vomiting Oxycodone HCl (Oxycodone Hcl Immed Release 5 Mg Tablet) 5 mg PO Q6H PRN PRN Reason: Pain, Severe (Pain Scale 7-10) Last Admin: 06/25/24 18:24 Dose: 5 mg Documented By: MAGGIE Polyethylene Glycol (Polyethylene Glycol 3350 17 Gm Powd.Pack) 17 gm PO DAILY PRN PRN Reason: Constipation Last Admin: 06/22/24 08:44 Dose: 17 gm Documented By: CHESTER Prednisone (Prednisone 10 Mg Tablet) 30 mg PO DAILY [facility] Last Admin: 06/27/24 07:50 Dose: 30 mg Documented By: ANUP Sodium Chloride (0.9 % Sodium Chloride Flush 3 Ml Syringe) 3 ml IVFLUSH QSHIFT [facility] Last Admin: 06/27/24 07:51 Dose: 3 ml Documented By: ANUP Valsartan (Valsartan 40 Mg Tablet) 20 mg PO BID [facility]; Protocol Last Admin: 06/27/24 07:50 Dose: 20 mg Documented By: ANUP Warfarin Sodium (Warfarin Sodium 2 Mg Tablet) 2 mg PO SuTuThSa@1800 [facility] Last Admin: 06/26/24 17:44 Dose: 2 mg Documented By: MAGGIE Warfarin Sodium (Warfarin Sodium 1 Mg Tablet) 1 mg PO MoWeFr@1800 [facility] Last Admin: 06/24/24 17:30 Dose: 1 mg Documented By: CHESTER Labs 06/27/24 08:55 06/27/24 08:54 Labs: Laboratory Results - last 24 hr 06/26/24 06/26/24 06/27/24 16:20 19:55 05:35 MCV MCH MCHC RDW Plt Count MPV Absolute Nucleated RBC Nucleated RBC % (auto) PT 36.1 H INR 3.0 H Anion Gap Estim Creat Clear Calc Estimated GFR POC Glucose 294 H 420 H* Random Glucose Calcium 06/27/24 06/27/24 06/27/24 07:32 08:54 08:55 MCV 88.7 MCH 28.2 MCHC 31.8 RDW 15.2 Plt Count 322 MPV 8.6 L Absolute Nucleated RBC 0.000 Nucleated RBC % (auto) 0.0 PT INR Anion Gap 12 Estim Creat Clear Calc 23.5 Estimated GFR 24 POC Glucose 243 H Random Glucose 298 H Calcium 8.9 Microbiology Microbiology Results: Microbiology 06/23/24 Unknown Urine Culture - Final Urine Other - Suprapubic Pseudomonas aeruginosa Achromobacter xylosoxidans Assessment and Plan (1) Acute UTI: Status: Acute Plan 83-year-old female with a PMH significant for?chronic Coumadin, chronic systolic CHF (EF 45-50%, , MR), CAD, CKD 3, insulin-dependent type 2 diabetes, hypothyroidism, HTN, and neurogenic bladder with suprapubic catheter who presents to the ED with sudden onset confusion, difficulty speaking, and weakness being worked for stroke, has uti, and now gram posiitive cocci bacteremia Acute encephalopathy initially conern over cva, which has been ruled out now resolved, likey 2/ to UTI uti Initial cultures negative, however was on empiric treatment for possible bacteremia, C next point Repeat cultures growing less than 100 K of Pseudomonas and archomobacter rocepin stopped -- will d/w ID if this needs to be treated.. has chronic suprapubic cath, difficult to get clean cath, assymptomatic, wbc nll Staph epid and hominis bacteremia, possibly contamination -repeat culture 06/18 negative x 48 hrs -was treated with Vanco and DC'd when sensitivity came back, id suggest contamination and therefore no indication for [facility] treatment -echo -no endocarditis DOROTHY on CKD 4 Improved with fluids Appears to be at baseline now Hyperkalemia--lokelma and resolved. Chronic metabolic acidosis--d/t CKD, resolved. consider bicab replacement if not improving Persistent AFib, rate controlled -Continue Coumadin, INR goal of 2-3, hold coumadin today for inr 3.2 -Monitor INR HFrEF, compensated Lasix was on hold due to acute kidney injury Will restart Insulin-dependent type 2 diabetes, hyperglycemia d/t steoid -Sliding-scale insulin, Lantus -Continue Jardiance -Diabetic diet HypOthyroidism -Continue levothyroxine HTN -Continue amlodipine, valsartan Gout flare Day 4/5 of prednisone, improving Full Code DVT Prophylaxis: On Coumadin Dispo: Anticipated to go to short-term rehab Patient with ongoing hand pain as well as abnormal urine culture, pending ID follow-up Anticipate discharge in the next 24 hours Quality Stroke Does the patient have a stroke diagnosis?: No Reason for No Anti-thrombotic by Day Two: Contraindicated (Pt on Coumadin, not a candidate for tNK) VTE Prior VTE?: No VTE Risk Level:: Medical - moderate - high VTE Device Contraindication: Treatment Not Indicated VTE Drug Contraindication: N/A - Med Ordered
[2024-06-27] MEDS: Milk of Magnesia 30 ML ORAL.SUSP PO (11:26)
[2024-06-27] MEDS: Nystatin Cream 15 GM TUBE 1 APPL TOPICAL ×2 (11:27→21:37)
[2024-06-27 11:38] LABS: Glucose, Whole Blood 309 mg/dL (60-115)
--- NOTE | 2024-06-27 12:10 | PM.CNNEP ---
History of Present Illness Reason for Consult Consult date: 06/27/24 Reason for consult: CKD Chief Complaint Chief complaint: DOROTHY, UTI, ?CVA History of Present Illness Narrative: 83-year-old female with a PMH significant for?chronic Coumadin, chronic systolic CHF (EF 45-50%, , MR), CAD, CKD 3, insulin-dependent type 2 diabetes, hypothyroidism, HTN, and neurogenic bladder with suprapubic catheter who presents to the ED with sudden onset confusion, difficulty speaking, and weakness. Patient is alert and oriented to self and place only at time of interview and exam. Patient does not know why she is in the hospital or why she is being evaluated for. Family is no longer at bedside unable to be reached by found. HPI is thus obtained from chart and provider review. Patient comes from home where she lives with her family. Apparently felt unwell while in the bathroom early this morning at 10:00 and called out for her daughter for help. Per EMS patient was experiencing right-sided weakness and difficulty speaking with slurred language, stuttering, and difficulty word finding Baseline creatinine is around 1.4-2 mg/dL. . [facility] Past Medical History Medical History Hydronephrosis determined by ultrasound Permanent atrial fibrillation DOROTHY (acute kidney injury) Atrial fibrillation Neuropathy Neurogenic bladder CVA (cerebral vascular accident) Shingles Elevated cholesterol Myocardial infarction MRSA infection Hip pain Leg wound, left Varicose vein of leg Osteoarthritis of right hip Current use of anticoagulant therapy Recurrent UTI Atrial fibrillation PAF (paroxysmal atrial fibrillation) Congestive heart failure Urinary incontinence Hypothyroidism Diabetes Hypertension CKD (chronic kidney disease) CAD (coronary artery disease) Hypotonic neurogenic bladder Family History Family History Father Hx of angina pectoris Myocardial infarction Mother Ovarian cancer Stomach cancer Maternal Grandfather Hardening of the arteries of the heart Surgical History Surgical History History of left knee replacement History of right knee joint replacement H/O heart artery stent H/O nasal polypectomy History of tubal ligation History of tonsillectomy and adenoidectomy Hx of cholecystectomy Social History Social History Household Members: Unknown / Unable to assess Household Members Other:: daughter Housing: Unknown / Unable to assess Are you a primary aged or disabled care worker to a significant other at home: No Do you presently have visiting nurse or other home services: No Alcohol intake: never [place] [facility] [place] Tobacco Use Status: Never used Tobacco Second Hand Smoke Exposure: No Advance Directives Date on File: 08/27/22 service: No Current occupational status: retired Meds Allergies Allergy/AdvReac Type Severity Reaction Status Date / Time No Known Allergies Allergy Verified 06/17/24 10:57 [No Known Allergies*] Active Medications: Current Medications Acetaminophen (Acetaminophen 325 Mg Tablet) 650 mg PO Q6H PRN PRN Reason: Pain, Mild (Pain Scale 1-3), fever or headache Last Admin: 06/22/24 17:49 Dose: 650 mg Amlodipine Besylate (Amlodipine Besylate 5 Mg Tablet) 5 mg PO DAILY [facility]; Protocol Last Admin: 06/27/24 07:49 Dose: 5 mg Aspirin (Aspirin Enteric Coated 81 Mg Tablet.Dr) 81 mg PO DAILY [facility] Last Admin: 06/27/24 07:51 Dose: 81 mg Atorvastatin Calcium (Atorvastatin Calcium 40 Mg Tablet) 40 mg PO BEDTIME SUN Last Admin: 06/26/24 20:57 Dose: 40 mg Benzonatate (Benzonatate 100 Mg Capsule) 100 mg PO TID PRN PRN Reason: Cough Calcium Carbonate (Calcium Carbonate 750 Mg Tab.Chew) 750 mg PO Q4H PRN PRN Reason: Heartburn Empagliflozin (Empagliflozin 10 Mg Tablet) 10 mg PO DAILY [facility] Last Admin: 06/27/24 07:50 Dose: 10 mg Furosemide (Furosemide 20 Mg Tablet) 20 mg PO DAILY [facility]; Protocol Last Admin: 06/27/24 07:51 Dose: 20 mg Glucose (Glucose Gel 15 Gm Gel..Gram.) 15 gm PO Q15M PRN; Protocol PRN Reason: per Hypoglycemia Standing Ord. Dextrose (D10) 250 mls @ 750 mls/hr IV Q15M PRN; Protocol PRN Reason: per Hypoglycemia Standing Ord. Insulin Glargine (Insulin Glargine,Hum.Rec.Anlog 100 Unit/Ml 10 Ml Vial) 20 unit SUBCUT BEDTIME [facility] Last Admin: 06/26/24 20:57 Dose: 20 unit Insulin Human Lispro (Insulin Lispro 100 Unit/Ml 3 Ml Vial) 0 unit SUBCUT QIDACHS [facility]; Protocol Last Admin: 06/27/24 11:46 Dose: 8 unit Levothyroxine Sodium (Levothyroxine Sodium 25 Mcg Tablet) 25 mcg PO DAILY@0600 [facility] Last Admin: 06/27/24 05:57 Dose: 25 mcg Magnesium Hydroxide (Milk Of Magnesia 30 Ml Oral.Susp) 30 ml PO DAILY PRN PRN Reason: Constipation Last Admin: 06/27/24 11:26 Dose: 30 ml Melatonin (Melatonin 3 Mg Tablet) 6 mg PO BEDTIME PRN PRN Reason: Insomnia Last Admin: 06/26/24 20:57 Dose: 6 mg Metoprolol Succinate (Metoprolol Succinate Er 100 Mg Tab.Er.24h) 200 mg PO DAILY [facility]; Protocol Last Admin: 06/27/24 07:50 Dose: 200 mg Mirabegron (Mirabegron 25 Mg Tab.Er.24h) 25 mg PO DAILY [facility] Last Admin: 06/27/24 07:51 Dose: 25 mg Multivitamins/Vitamin C (Multivitamin Tablet) 1 tab PO DAILY [facility] Last Admin: 06/27/24 07:50 Dose: 1 tab Nystatin (Nystatin Cream 15 Gm Tube) 1 appl TOPICAL BID [facility]; Protocol Last Admin: 06/27/24 11:27 Dose: 1 appl Ondansetron HCl (Ondansetron Hcl 4 Mg/2 Ml Vial) 4 mg IVPUSH Q8H PRN PRN Reason: Nausea and Vomiting Oxycodone HCl (Oxycodone Hcl Immed Release 5 Mg Tablet) 5 mg PO Q6H PRN PRN Reason: Pain, Severe (Pain Scale 7-10) Last Admin: 06/25/24 18:24 Dose: 5 mg Polyethylene Glycol (Polyethylene Glycol 3350 17 Gm Powd.Pack) 17 gm PO DAILY PRN PRN Reason: Constipation Last Admin: 06/22/24 08:44 Dose: 17 gm Prednisone (Prednisone 10 Mg Tablet) 30 mg PO DAILY [facility] Last Admin: 06/27/24 07:50 Dose: 30 mg Sodium Chloride (0.9 % Sodium Chloride Flush 3 Ml Syringe) 3 ml IVFLUSH QSHIFT [facility] Last Admin: 06/27/24 07:51 Dose: 3 ml Valsartan (Valsartan 40 Mg Tablet) 20 mg PO BID [facility]; Protocol Last Admin: 06/27/24 07:50 Dose: 20 mg Warfarin Sodium (Warfarin Sodium 2 Mg Tablet) 2 mg PO SuTuThSa@1800 [facility] Last Admin: 06/26/24 17:44 Dose: 2 mg Warfarin Sodium (Warfarin Sodium 1 Mg Tablet) 1 mg PO MoWeFr@1800 [facility] Last Admin: 06/24/24 17:30 Dose: 1 mg Home Medications ?Medication ?Instructions ?Recorded ?Confirmed ?Last Taken ?Type levothyroxine 25 mcg tablet 25 mcg PO DAILY@0600 09/05/20 06/17/24 06/16/24 History aspirin 81 mg tablet,delayed 81 mg PO DAILY 09/11/21 06/17/24 06/16/24 History release pen needle, diabetic 32 gauge x #50 ea 12/31/21 06/09/24 06/16/24 History (BD Cathy 2nd Gen Pen Needle) multivitamin (One Daily 1 tab PO DAILY 09/15/22 06/17/24 06/16/24 History Multivitamin tablet) lancets 28 gauge (FreeStyle #100 ea 09/29/22 06/09/24 06/16/24 History Lancets) vitamins A,C,T-mwob-xlffef 2,148 1 tab PO BIDWM 05/09/23 06/17/24 06/16/24 History mcg-113 mg-45 mg-17.4 mg tablet (PreserVision AREDS) melatonin 5 mg tablet 10 mg PO BEDTIME PRN Sleep 06/04/23 06/17/24 03/14/24 History amlodipine 5 mg tablet 5 mg PO DAILY 11/13/23 06/17/24 06/16/24 History warfarin 1 mg tablet 1 mg PO MOWEFR 01/12/24 06/17/24 06/15/24 History insulin aspart U-100 100 unit/mL See Protocol subcut QIDACHS 03/15/24 06/17/24 06/16/24 History subcutaneous solution furosemide 20 mg tablet 20 mg PO BID 06/17/24 06/17/24 06/16/24 History valsartan 40 mg tablet 20 mg PO BID 06/17/24 06/17/24 06/16/24 History warfarin 1 mg tablet 2 mg PO SUTUTHSA 06/17/24 06/17/24 06/16/24 History Physical Exam Vital Signs: Last Vital Signs Temp 97.0 F 08/26/24 07:40 Pulse 88 06/27/24 07:40 Resp 18 06/27/24 07:40 BP 141/78 H 06/27/24 07:40 Pulse Ox 99 06/27/24 07:40 O2 Del Method Room Air 06/27/24 07:40 BMI result Body Mass Index 32.0 Const General: comfortable; No acute distress Orientation/consciousness: patient oriented x3 Eyes General: appearance normal, both eyes and all related structures Visual Low: normal visual low by confrontation Neck Neck: Yes supple and Yes no JVD Resp Effort & Inspection: normal respiratory effort and respiratory effort not decreased Auscultation: rhonchi Cardio Palpation: no palpable S3 and no palpable S4 Heart sounds: no rubs GI Inspection: Yes normal to inspection Palpation (GI): Soft to palpation Percussion: Yes normal to percussion Auscultation: normal bowel sounds Other: Suprapubic catheter in General: Yes no CVA tenderness Back/Spine/Pelvis Back: no CVA tenderness Skin General skin exam: no petechiae and no purpura Neuro General: patient oriented x3 and no focal motor deficits Extrem General: No clubbing and No edema Results Lab Results 06/27/24 08:55 06/27/24 08:54 Lab results: Chemistry 06/25/24 06/25/24 06/26/24 06:17 21:39 06:09 Sodium 134 L 134 L 135 Potassium 4.8 5.3 H 4.7 Carbon Dioxide 17 L 20 L 20 L BUN 32 H 38 H Creatinine 2.09 H 1.94 H Calcium 8.6 9.1 06/27/24 08:54 Sodium 137 Potassium 4.2 Carbon Dioxide 25 BUN 40 H Creatinine 1.97 H Calcium 8.9 Hematology 06/27/24 08:55 WBC 8.0 Hgb 12.2 Plt Count 322 Assessment and Plan (1) Acute kidney injury superimposed on chronic kidney disease: Status: Acute Plan Elderly woman with acute kidney injury superimposed on chronic kidney disease. She has underlying chronic kidney disease in the setting of longstanding diabetes mellitus. She has neurogenic bladder due to underlying diabetes as well. Status post suprapubic catheter placement. DOROTHY depression diagnosis would include hypoperfusion and obstructive uropathy. Recommendation keep intake more than output Continue overt nephrotoxic agents. Watch urine output closely. Obtain renal ultrasonogram to ensure there is no ongoing obstruction/retention. No indication for dialysis Mild metabolic acidosis and hyponatremia in the setting DOROTHY have resolved. She will follow along with the team Procedures Date of Service Date of Service: 06/27/24
--- NOTE | 2024-06-27 14:32 | MHC.CM.PN ---
Per rounds, pt is ready to DC to [facility], however the [facility] had to re-submit for auth. awaiting notice from [facility].
[2024-06-27] MEDS: oxyCODONE HCl Immed Release 5 MG TABLET PO (15:48)
[2024-06-27 16:06] LABS: Glucose, Whole Blood 429 mg/dL (60-115)
[2024-06-27] MEDS: Insulin Regular, Human 100 UNIT/ML 10 ML VIAL IVPUSH (16:17)
[2024-06-27] MEDS: Warfarin Sodium 1 MG TABLET PO (17:25)
[2024-06-27 20:27] LABS: Glucose, Whole Blood 318 mg/dL (60-115)
[2024-06-27] MEDS: Atorvastatin Calcium 40 MG TABLET PO (20:29)
[2024-06-27] MEDS: Insulin Glargine,Hum.rec.anlog 100 UNIT/ML 10 ML VIAL 20 UNIT SUBCUT (20:29)
[2024-06-27] MEDS: Melatonin 3 MG TABLET 6 MG PO (22:06)
[2024-06-28] VITALS (7 sets, daily range): BP systolic 120–142; BP diastolic 55–95; PULSE 78–90; RESP 18–20; TEMP 36–36.6; O2SAT 95–99
[2024-06-28] MEDS: Levothyroxine Sodium 25 MCG TABLET PO (05:11)
[2024-06-28 06:47] LABS: Anion Gap 14 (12-20); Blood Urea Nitrogen 40 mg/dL (9-16); Calcium 9.2 mg/dL (8.4-10.2); Carbon Dioxide 24 mmol/L (22-29); Chloride 104 mmol/L (96-108); Creatinine Clr Calc Pharmacy 25.3; Estimated Glomerular Filt Rate 26; Glucose Random 264 mg/dL (60-115); Potassium 4.4 mmol/L (3.3-5.1); Sodium 138 mmol/L (135-145)
[2024-06-28 06:52] LABS: INTERNATIONAL NORM RATIO 3.5 (0.9-1.1); Prothrombin Time 42.1 SEC (11.1-13.3)
[2024-06-28 07:34] LABS: Glucose, Whole Blood 220 mg/dL (60-115)
[2024-06-28] MEDS: Insulin Lispro 100 UNIT/ML 3 ML VIAL SUBCUT ×4 (08:04→20:28)
[2024-06-28] MEDS: Empagliflozin 10 MG TABLET PO (08:05)
[2024-06-28] MEDS: Aspirin Enteric Coated 81 MG TABLET.DR PO (08:05)
[2024-06-28] MEDS: Metoprolol Succinate ER 100 MG TAB.ER.24H 200 MG PO (08:05)
[2024-06-28] MEDS: amLODIPine Besylate 5 MG TABLET PO (08:05)
[2024-06-28] MEDS: Furosemide 20 MG TABLET PO (08:05)
[2024-06-28] MEDS: Mirabegron 25 MG TAB.ER.24H PO (08:06)
[2024-06-28] MEDS: Multivitamin TABLET 1 TAB PO (08:06)
[2024-06-28] MEDS: Valsartan 40 MG TABLET 20 MG PO ×2 (08:06→20:08)
[2024-06-28] MEDS: 0.9 % Sodium Chloride Flush 3 ML SYRINGE IVFLUSH (08:06)
[2024-06-28] MEDS: Nystatin Cream 15 GM TUBE 1 APPL TOPICAL ×2 (08:17→20:30)
[2024-06-28 11:15] LABS: Glucose, Whole Blood 238 mg/dL (60-115)
--- NOTE | 2024-06-28 11:19 | P.PNIM_ITS ---
Subjective Subjective Date of Service: 06/28/24 Interval History: seen and examined pain in the hand is better, urine function is stable, suprapubic cath changed yesterday Physical Exam 2 Vital Signs: Vital Signs: Last Vital Signs Temp 97.1 F 06/28/24 07:58 Pulse 88 06/28/24 07:58 Resp 18 06/28/24 07:58 BP 137/78 06/28/24 07:58 Pulse Ox 99 06/28/24 07:58 O2 Del Method Room Air 06/28/24 07:58 BMI result Body Mass Index 32.0 Const: Other: General - no acute distress, appears comfortable Cardiovascular - regular rate and rhythm, S1-S2 Lungs - normal respiratory effort, clear to auscultation bilaterally, no wheezing Abdomen - soft, nontender, no rebound or guarding Extremities - left hand swelling, improving ROM Neuro - awake and alert, no focal deficits Objective Data Active Medications Acetaminophen (Acetaminophen 325 Mg Tablet) 650 mg PO Q6H PRN PRN Reason: Pain, Mild (Pain Scale 1-3), fever or headache Last Admin: 06/22/24 17:49 Dose: 650 mg Documented By: CHESTER Amlodipine Besylate (Amlodipine Besylate 5 Mg Tablet) 5 mg PO DAILY [facility]; Protocol Last Admin: 06/28/24 08:05 Dose: 5 mg Documented By: ABIGAIL Aspirin (Aspirin Enteric Coated 81 Mg Tablet.Dr) 81 mg PO DAILY [facility] Last Admin: 06/28/24 08:05 Dose: 81 mg Documented By: ABIGAIL Atorvastatin Calcium (Atorvastatin Calcium 40 Mg Tablet) 40 mg PO BEDTIME [facility] Last Admin: 06/27/24 20:29 Dose: 40 mg Documented By: NORA Benzonatate (Benzonatate 100 Mg Capsule) 100 mg PO TID PRN PRN Reason: Cough Calcium Carbonate (Calcium Carbonate 750 Mg Tab.Chew) 750 mg PO Q4H PRN PRN Reason: Heartburn Empagliflozin (Empagliflozin 10 Mg Tablet) 10 mg PO DAILY [facility] Last Admin: 06/28/24 08:05 Dose: 10 mg Documented By: ABIGAIL Furosemide (Furosemide 20 Mg Tablet) 20 mg PO DAILY [facility]; Protocol Last Admin: 06/28/24 08:05 Dose: 20 mg Documented By: ABIGAIL Glucose (Glucose Gel 15 Gm Gel..Gram.) 15 gm PO Q15M PRN; Protocol PRN Reason: per Hypoglycemia Standing Ord. Dextrose (D10) 250 mls @ 750 mls/hr IV Q15M PRN; Protocol PRN Reason: per Hypoglycemia Standing Ord. Meropenem 500 mg/ Sodium (Chloride) 50 mls @ 100 mls/hr IV Q12H [facility] Last Infusion: 06/28/24 06:18 Dose: Infused Documented By: NORA Insulin Glargine (Insulin Glargine,Hum.Rec.Anlog 100 Unit/Ml 10 Ml Vial) 20 unit SUBCUT BEDTIME [facility] Last Admin: 06/27/24 20:29 Dose: 20 unit Documented By: NORA Insulin Human Lispro (Insulin Lispro 100 Unit/Ml 3 Ml Vial) 0 unit SUBCUT QIDACHS [facility]; Protocol Last Admin: 06/28/24 08:04 Dose: 4 unit Documented By: ABIGAIL Levothyroxine Sodium (Levothyroxine Sodium 25 Mcg Tablet) 25 mcg PO DAILY@0600 [facility] Last Admin: 06/28/24 05:11 Dose: 25 mcg Documented By: NORA Magnesium Hydroxide (Milk Of Magnesia 30 Ml Oral.Susp) 30 ml PO DAILY PRN PRN Reason: Constipation Last Admin: 06/27/24 11:26 Dose: 30 ml Documented By: CHICHO Melatonin (Melatonin 3 Mg Tablet) 6 mg PO BEDTIME PRN PRN Reason: Insomnia Last Admin: 06/27/24 22:06 Dose: 6 mg Documented By: NORA Metoprolol Succinate (Metoprolol Succinate Er 100 Mg Tab.Er.24h) 200 mg PO DAILY [facility]; Protocol Last Admin: 06/28/24 08:05 Dose: 200 mg Documented By: ABIGAIL Mirabegron (Mirabegron 25 Mg Tab.Er.24h) 25 mg PO DAILY [facility] Last Admin: 06/28/24 08:06 Dose: 25 mg Documented By: ABIGAIL Multivitamins/Vitamin C (Multivitamin Tablet) 1 tab PO DAILY [facility] Last Admin: 06/28/24 08:06 Dose: 1 tab Documented By: ABIGAIL Nystatin (Nystatin Cream 15 Gm Tube) 1 appl TOPICAL BID [facility]; Protocol Last Admin: 06/28/24 08:17 Dose: 1 appl Documented By: ABIGAIL Ondansetron HCl (Ondansetron Hcl 4 Mg/2 Ml Vial) 4 mg IVPUSH Q8H PRN PRN Reason: Nausea and Vomiting Oxycodone HCl (Oxycodone Hcl Immed Release 5 Mg Tablet) 5 mg PO Q6H PRN PRN Reason: Pain, Severe (Pain Scale 7-10) Last Admin: 06/27/24 15:48 Dose: 5 mg Documented By: CHICHO Polyethylene Glycol (Polyethylene Glycol 3350 17 Gm Powd.Pack) 17 gm PO DAILY PRN PRN Reason: Constipation Last Admin: 06/22/24 08:44 Dose: 17 gm Documented By: CHESTER Sodium Chloride (0.9 % Sodium Chloride Flush 3 Ml Syringe) 3 ml IVFLUSH [facility] Last Admin: 06/28/24 08:06 Dose: 3 ml Documented By: ABIGAIL Valsartan (Valsartan 40 Mg Tablet) 20 mg PO BID [facility]; Protocol Last Admin: 06/28/24 08:06 Dose: 20 mg Documented By: ABIGAIL Warfarin Sodium (Warfarin Sodium 2 Mg Tablet) 2 mg PO SuTuThSa@1800 [facility] Last Admin: 06/26/24 17:44 Dose: 2 mg Documented By: MAGGIE Warfarin Sodium (Warfarin Sodium 1 Mg Tablet) 1 mg PO MoWeFr@1800 [facility] Last Admin: 06/27/24 17:25 Dose: 1 mg Documented By: CHICHO Labs 06/28/24 05:55 06/29/24 06:45 Labs: Laboratory Results - last 24 hr 06/27/24 06/27/24 06/27/24 11:34 16:03 19:41 Hold Purple Top PT INR Anion Gap Estim Creat Clear Calc Estimated GFR POC Glucose 309 H 429 H* 318 H Random Glucose Calcium 06/28/24 06/28/24 06/28/24 05:55 07:20 10:53 Hold Purple Top SEE NOTE PT 42.1 H INR 3.5 H Anion Gap 14 Estim Creat Clear Calc 25.3 Estimated GFR 26 POC Glucose 220 H 238 H Random Glucose 264 H Calcium 9.2 Assessment and Plan (1) Acute UTI: Status: Acute (2) Gram-positive bacteremia: Status: Acute (3) Acute kidney injury superimposed on chronic kidney disease: Status: Acute (4) Encephalopathy acute: Status: Acute Plan 83-year-old female with a PMH significant for?chronic Coumadin, chronic systolic CHF (EF 45-50%, , MR), CAD, CKD 3, insulin-dependent type 2 diabetes, hypothyroidism, HTN, and neurogenic bladder with suprapubic catheter who presents to the ED with sudden onset confusion, difficulty speaking, and weakness being worked for stroke, has uti, and now gram posiitive cocci bacteremia Acute encephalopathy initially conern over cva, which has been ruled out now resolved, likey 2/2 to UTI uti Initial cultures negative, however was on empiric treatment for possible bacteremia, C next point Repeat cultures growing less than 100 K of Pseudomonas and archomobacter was on rocephin, when catheter changed urine was cloudy and uro recommends antibiotics now on meropenem, to midline for IV abx Staph epid and hominis bacteremia, possibly contamination -repeat culture 06/18 negative x 48 hrs -was treated with Vanco and DC'd when sensitivity came back, id suggest contamination and therefore no indication for [facility] treatment -echo -no endocarditis DOROTHY on CKD 4 Improved with fluids Appears to be at baseline now Hyperkalemia--lokelma and resolved. Chronic metabolic acidosis--d/t CKD, resolved. consider bicab replacement if not improving Persistent AFib, rate controlled -Continue Coumadin, INR goal of 2-3, hold coumadin today for inr 3.5 -Monitor INR HFrEF, compensated Lasix was on hold due to acute kidney injury Will restart Insulin-dependent type 2 diabetes, hyperglycemia d/t steriud -Sliding-scale insulin, Lantus -Continue Jardiance -Diabetic diet HypOthyroidism -Continue levothyroxine HTN -Continue amlodipine, valsartan Gout flare has completed steroid, Full Code DVT Prophylaxis: On Coumadin Dispo: Anticipated to go to short-term rehab Patient with ongoing hand pain as well as abnormal urine culture, pending ID follow-up Anticipate discharge in the next 24 hours Quality Stroke Does the patient have a stroke diagnosis?: No Reason for No Anti-thrombotic by Day Two: Contraindicated (Pt on Coumadin, not a candidate for tNK) VTE Prior VTE?: No VTE Risk Level:: Medical - moderate - high VTE Device Contraindication: Treatment Not Indicated VTE Drug Contraindication: N/A - Med Ordered
[2024-06-28 11:26] LABS: MANUAL DIFF FLAG NO
[2024-06-28 11:29] LABS: Basophils Percent Auto 0.5 % (0-2); Eosinophils Percent Auto 0.4 % (0-4); Hematocrit 41.3 % (37.0-47.0); Hemoglobin 13.3 g/dl (12.0-16.0); Imm Gran Abs Auto 0.16 X10*3/uL (0.00-0.03); Lymphocytes Percent Auto 24.5 % (20-40); Mean Corpuscular HGB Conc 32.2 g/dl (31.0-35.0); Mean Corpuscular Hemoglobin 28.7 pg (27.0-33.0); Mean Corpuscular Volume 89.2 fL (80.0-98.0); Mean Platelet Volume 8.7 fL (9.4-12.3); Monocytes Absolute Auto 1.2 X10*3/uL (0.1-1.2); Monocytes Percent Auto 15.5 % (2-11); Neutrophils Absolute Auto 4.6 x10*3/uL (2.0-8.3); Neutrophils Percent Auto 57.1 % (45-73); Platelet Count 341 X10*3/uL (160-400); Red Blood Count 4.63 X10*6/uL (4.20-5.50); Red Cell Distribution Width 15.2 % (11.0-16.0)
--- NOTE | 2024-06-28 14:09 | P.PNNP_ITS ---
Subjective Subjective Date of Service: 06/28/24 Interval history: seen and examined pain in the hand is better, urine function is stable, suprapubic cath changed yesterday Physical Exam 2 Vital Signs: Vital Signs: Last Vital Signs Temp 96.8 F 06/28/24 11:36 Pulse 78 06/28/24 11:36 Resp 18 06/28/24 11:36 BP 142/85 H 06/28/24 11:36 Pulse Ox 99 06/28/24 11:36 O2 Del Method Room Air 06/28/24 11:36 BMI result Body Mass Index 32.0 Const: General: comfortable; No acute distress Orientation/consciousness: p atient oriented x3 Eyes: General: appearance normal, both eyes and all related structures V isual Arias: normal visual arias by confrontation Neck: Neck: Yes supple and Yes no JVD Resp: Effort & Inspection: normal respiratory effort and respiratory effort not decreased Auscultation: rhonchi Cardio: Palpation: no palpable S3 and no palpable S4 Heart sounds: no rubs GI: Inspection: Yes normal to inspection Palpation (GI): Soft to palpation Percussion: Yes normal to percussion Auscultation: normal bowel sounds : Other: Suprapubic catheter in General: Yes no CVA tenderness Back/Spine/Pelvis: Back: no CVA tenderness Skin: General skin exam: no petechiae and no purpura Neuro: General: patient oriented x3 and no focal motor deficits Extrem: General: No clubbing and No edema Objective Data Labs 06/28/24 05:55 06/28/24 05:55 Labs: Laboratory Results - last 24 hr 06/27/24 06/27/24 06/28/24 16:03 19:41 05:55 WBC 8.0 RBC 4.63 Hgb 13.3 Hct 41.3 MCV 89.2 MCH 28.7 MCHC 32.2 RDW 15.2 Plt Count 341 MPV 8.7 L Immature Gran % (Auto) 2.0 H Neut % (Auto) 57.1 Lymph % (Auto) 24.5 [place] % (Auto) 15.5 H Eos % (Auto) 0.4 Baso % (Auto) 0.5 Lymph # (Auto) 2.0 [place] # (Auto) 1.2 Eos # (Auto) 0.0 Baso # (Auto) 0.0 Abs Immat Gran (auto) 0.16 H Absolute Neuts (auto) 4.6 Absolute Nucleated RBC 0.000 Nucleated RBC % (auto) 0.0 Hold Purple Top SEE NOTE PT 42.1 H INR 3.5 H Sodium 138 Potassium 4.4 Chloride 104 Carbon Dioxide 24 Anion Gap 14 BUN 40 H Creatinine 1.83 H Estim Creat Clear Calc 25.3 Estimated GFR 26 POC Glucose 429 H* 318 H Random Glucose 264 H Calcium 9.2 06/28/24 06/28/24 07:20 10:53 WBC RBC Hgb Hct MCV MCH MCHC RDW Plt Count MPV Immature Gran % (Auto) Neut % (Auto) Lymph % (Auto) [place] % (Auto) Eos % (Auto) Baso % (Auto) Lymph # (Auto) [place] # (Auto) Eos # (Auto) Baso # (Auto) Abs Immat Gran (auto) Absolute Neuts (auto) Absolute Nucleated RBC Nucleated RBC % (auto) Hold Purple Top PT INR Sodium Potassium Chloride Carbon Dioxide Anion Gap BUN Creatinine Estim Creat Clear Calc Estimated GFR POC Glucose 220 H 238 H Random Glucose Calcium Microbiology Microbiology Results: Microbiology 06/23/24 Unknown Urine Other - Suprapubic Urine Culture - Final Pseudomonas aeruginosa Achromobacter xylosoxidans 06/18/24 08:25 Blood - Venous Blood Culture - Final No growth after 5 days. 06/18/24 08:25 Blood - Venous Blood Culture - Final No growth after 5 days. 06/17/24 12:49 Blood - Venous Blood Culture - Final Staphylococcus epidermidis Staphylococcus hominis 06/17/24 12:49 Blood - Venous Blood Culture - Final Staphylococcus epidermidis Staphylococcus hominis 06/17/24 Unknown Urine Catheterized - Healy Catheter Urine Culture - Final Procedures Date of Service Date of Service: 06/28/24 Assessment & Plan Assessment and plan (1) Acute kidney injury superimposed on chronic kidney disease: Status: Acute Plan Elderly woman with acute kidney injury superimposed on chronic kidney disease. She has underlying chronic kidney disease in the setting of longstanding diabetes mellitus. She has neurogenic bladder due to underlying diabetes as well. Status post suprapubic catheter placement. DOROTHY depression diagnosis would include hypoperfusion and obstructive uropathy. Renal function is improving Recommendation keep intake more than output Continue overt nephrotoxic agents. Watch urine output closely. Obtain renal ultrasonogram to ensure there is no ongoing obstruction/retention. No indication for dialysis Mild metabolic acidosis and hyponatremia in the setting DOROTHY is all She will follow along with the team Time Spent With Patient Time: Total time managing care of this patient today ____ minutes. Progress Note: Quality Stroke Does the patient have a stroke diagnosis?: No Reason for No Anti-thrombotic by Day Two: Contraindicated (Pt on Coumadin, not a candidate for tNK)
--- NOTE | 2024-06-28 14:15 | HO.MIDLINE_ITS ---
Midline Insertion MIDLINE INSERTION Diagnosis: UTI Indication: Detention antibiotics needed Pertinent Labs: reviewed Technique: Using sterile technique including cap and mask, glove and drape, the right arm was prepped and draped in the usual sterile fashion of full barrier technique with G. Using ultrasound guidance, Right basilic vein access was obtained on first attempt. A 20G X 8 CM non-PASV ST Midline was positioned. The procedure was performed in S272. Ultrasound was used to document vein patency and for needle entry. A formal ultrasound picture was recorded. Vascular Bleach Boiler Filler has released the line for use and it is currently dressed with a StatLock, Tegaderm, and CHG disc. Verification has been performed for blood return and line patency. Arm Circumference: 39 CM Equipment: PowerGlide ST Midline Catheter Type: 20G X 8CM non-PASV Midline Lot #: [id number]
[2024-06-28 16:08] LABS: Glucose, Whole Blood 339 mg/dL (60-115)
[2024-06-28] MEDS: Acetaminophen 325 MG TABLET 650 MG PO (19:59)
[2024-06-28] MEDS: polyethylene glycoL 3350 17 GM POWD.PACK PO (20:07)
[2024-06-28] MEDS: Atorvastatin Calcium 40 MG TABLET PO (20:08)
[2024-06-28 20:21] LABS: Glucose, Whole Blood 288 mg/dL (60-115)
[2024-06-28] MEDS: Insulin Glargine,Hum.rec.anlog 100 UNIT/ML 10 ML VIAL 20 UNIT SUBCUT (20:27)
[2024-06-28] MEDS: Melatonin 3 MG TABLET 6 MG PO (20:27)
[2024-06-29 03:25] VITALS: BP 129/69; PULSE 95; RESP 18; TEMP 36.1; O2SAT 98
[2024-06-29] MEDS: Levothyroxine Sodium 25 MCG TABLET PO (05:12)
[2024-06-29] MEDS: Acetaminophen 325 MG TABLET 650 MG PO ×2 (05:13→13:23)
[2024-06-29 07:14] LABS: Anion Gap 16 (12-20); Blood Urea Nitrogen 46 mg/dL (9-16); Calcium 8.9 mg/dL (8.4-10.2); Carbon Dioxide 22 mmol/L (22-29); Chloride 106 mmol/L (96-108); Creatinine Clr Calc Pharmacy 25.2; Estimated Glomerular Filt Rate 26; Glucose Random 198 mg/dL (60-115); Potassium 4.6 mmol/L (3.3-5.1); Sodium 139 mmol/L (135-145)
[2024-06-29 07:46] LABS: Glucose, Whole Blood 200 mg/dL (60-115)
[2024-06-29 07:54] VITALS: BP 128/68; PULSE 97; RESP 18; TEMP 36; O2SAT 99
[2024-06-29] MEDS: Valsartan 40 MG TABLET 20 MG PO (08:04)
[2024-06-29] MEDS: Metoprolol Succinate ER 100 MG TAB.ER.24H 200 MG PO (08:05)
[2024-06-29] MEDS: Furosemide 20 MG TABLET PO (08:05)
[2024-06-29] MEDS: Mirabegron 25 MG TAB.ER.24H PO (08:05)
[2024-06-29] MEDS: Aspirin Enteric Coated 81 MG TABLET.DR PO (08:06)
[2024-06-29] MEDS: Empagliflozin 10 MG TABLET PO (08:06)
[2024-06-29] MEDS: amLODIPine Besylate 5 MG TABLET PO (08:06)
[2024-06-29] MEDS: Multivitamin TABLET 1 TAB PO (08:06)
[2024-06-29] MEDS: Insulin Lispro 100 UNIT/ML 3 ML VIAL SUBCUT ×2 (08:07→13:25)
[2024-06-29] MEDS: 0.9 % Sodium Chloride Flush 3 ML SYRINGE IVFLUSH (08:08)
--- NOTE | 2024-06-29 09:00 | MHC.CM.PN ---
IMM 06/29/24 DELIVERED TO BEDSIDE, NOHEMY PT TO BE MEDICALLY CLEARED FOR DC TO STR AT [facility] FOR BLS TRANSPORT TIME TBD
--- NOTE | 2024-06-29 11:07 | PM.DS ---
DS: Providers Provider Date of Service: 06/29/24 Date of admission: 06/17/24 14:21 Primary care physician: Nano Delaney MD Consults: 06/17/24 14:29 Consult to Neurology Routine Consulting Provider: [facility] Reason for consultation: ?CVA 06/18/24 07:04 Consult to Infectious Diseases Routine Consulting Provider: [facility] [place] [facility] Reason for consultation: gramp positive bacteremia 06/20/24 12:09 Consult to Wound Care Routine Reason for consultation: Buttock - MASD 06/24/24 11:28 Consult to Nephrology Routine Consulting Provider: [facility] [place] [facility] Reason for consultation: DOROTHY or CKD 06/24/24 17:21 Consult to Orthopedics Routine Consulting Provider: [facility] [place] [facility] Reason for consultation: right hand pain Has provider been notified: No 06/26/24 10:17 Consult to Urology Routine Consulting Provider: [facility] [place] [facility] Reason for consultation: chronic suprapubic, perisent leakage, ? need to change DS: Diagnosis Discharge Diagnosis (1) Acute UTI: Status: Acute (2) Gram-positive bacteremia: Status: Acute (3) Acute kidney injury superimposed on chronic kidney disease: Status: Acute (4) Encephalopathy acute: Status: Acute DS: Summary Hospital Course Hospital Course: admission hpi Chief Complaint: Slurred speaking, weakness Pt is an 83-year-old female with a PMH significant for?chronic Coumadin, chronic systolic CHF (EF 45-50%, , MR), CAD, CKD 3, insulin-dependent type 2 diabetes, hypothyroidism, HTN, and neurogenic bladder with suprapubic catheter who presents to the ED with sudden onset confusion, difficulty speaking, and weakness. Patient is alert and oriented to self and place only at time of interview and exam. Patient does not know why she is in the hospital or why she is being evaluated for. Family is no longer at bedside unable to be reached by found. HPI is thus obtained from chart and provider review. Patient comes from home where she lives with her family. Apparently felt unwell while in the bathroom early this morning at 10:00 and called out for her daughter for help. Per EMS patient was experiencing right-sided weakness and difficulty speaking with slurred language, stuttering, and difficulty word finding. EMS also reports right-sided deficits including facial droop. ?Patient herself current complains only of headache and diabetic neuropathy. However, HPI difficult to obtain. Patient with noted delayed response, difficulty word finding, and stuttering. Of note, cardiac monitoring while in the ED caught a run of 6 beats of V-tach. Patient was asymptomatic without chest pain/pressure. In the ED pt with elevated HR of 92, and initially soft BP of 118/55. Labs were significant for BUN 48, creatinine 2.7, alk-phos 126, BNP 476, and initial troponin 9.2. No leukocytosis. Stable H&H. No significant electrolyte abnormalities. Lactic acid WNL at 1.1. UA positive for UTI. CXR showed no acute abnormality. CT of head?showed no acute intracranial abnormality. EKG demonstrated atrial fibrillation without evidence of significant ST elevations or depressions. Pt was treated with ceftriaxone and placed maintenance fluids. Pt will be admitted to the hospital for treatment and further evaluation of encephalopathy, aphasia, and weakness concerning for acute CVA. Patient also has DOROTHY and acute UTI. Hospital course: 83-year-old female with a PMH significant for?chronic Coumadin, chronic systolic CHF (EF 45-50%, , MR), CAD, CKD 3, insulin-dependent type 2 diabetes, hypothyroidism, HTN, and neurogenic bladder with suprapubic catheter who presents to the ED with sudden onset confusion, difficulty speaking, and weakness initially there was concern of acute stroke and so had CT and ultimately MRI of the head both showing no acute stroke. 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 Hospital course was further notable for acute on chronic renal failure and left hand pain due to gout. Hospital course by problem as below Acute metabolic encephalopath initially conern over cva, which has been ruled out with both CT and MRI, encephalopathy and slurness of speech have both resolved and probably related to UTI UTI--she has chronic suprapubic catheter which was changed by urology on 06/27, she was treated for uti initially with ceftriaone, but culture ultimately revealed seudomonas and archomobacter both sensitive to Meropenem, she has been on Meropenem for 2 days and will treat for a total of 10 days, and at discharge will transition to Ertapenem once a day for another 8 days. Staph epid and hominis bacteremia, She was initiatlly treated with IV vancomcyin, repeat cultures have been negative. ID recommend no furthr antibiotics, echocardiogram showed no endocarditis DOROTHY on CKD 4, improved with IVF, creatine is within baseline HypErkalemia--lokelma and resolved. Chronic metabolic acidosis--d/t CKD, resolved. Persistent AFib, rate controlled -Continue Coumadin, INR goal of 2-3, hold coumadin today for inr 3.5 -Monitor INR HFrEF, compensated -continue lasix Insulin-dependent type 2 diabetes, hyperglycemia d/t steriud -resume lantus, jardiance and sliding HypOthyroidism -Continue levothyroxine HTN -Continue amlodipine, valsartan Gout flare has completed steroid, treated with Po steroid, may use colochicine PRN and may be started on allopurinol in a week Time Attestation Discharge Coordination Time (in mins): 45 Quality: Safe Use of Opioids Does Pt have an Active Cancer Diagnosis on the Problem List?: No Quality: Stroke Does the patient have a stroke diagnosis?: No Physical Exam Vital Signs: Vital Signs: Last Vital Signs Temp 96.8 F 06/29/24 07:54 Pulse 97 06/29/24 07:54 Resp 18 06/29/24 07:54 BP 128/68 06/29/24 07:54 Pulse Ox 99 06/29/24 07:54 O2 Del Method Room Air 06/29/24 07:54 BMI result Body Mass Index 32.0 DS: Data Data Completed and Pending Completed studies during hospitalization [Text1]: Procedures Extirpation of Matter from Bladder, Via Natural or Artificial Opening Endoscopic (06/27/22) Fluoroscopy of Kidneys, Ureters and Bladder (06/27/22) Replacement of Right Hip Joint with Synthetic Substitute, Uncemented, Open Approach (07/07/23) Labs on day of discharge: Laboratory Results - last 24 hr 06/28/24 06/28/24 06/28/24 05:55 10:53 16:04 WBC 8.0 RBC 4.63 Hgb 13.3 Hct 41.3 MCV 89.2 MCH 28.7 MCHC 32.2 RDW 15.2 Plt Count 341 MPV 8.7 L Immature Gran % (Auto) 2.0 H Neut % (Auto) 57.1 Lymph % (Auto) 24.5 [place] % (Auto) 15.5 H Eos % (Auto) 0.4 Baso % (Auto) 0.5 Lymph # (Auto) 2.0 [place] # (Auto) 1.2 Eos # (Auto) 0.0 Baso # (Auto) 0.0 Abs Immat Gran (auto) 0.16 H Absolute Neuts (auto) 4.6 Absolute Nucleated RBC 0.000 Nucleated RBC % (auto) 0.0 PT INR Sodium Potassium Chloride Carbon Dioxide Anion Gap BUN Creatinine Estim Creat Clear Calc Estimated GFR POC Glucose 238 H 339 H Random Glucose Calcium 06/28/24 06/29/24 06/29/24 20:17 06:45 07:31 WBC RBC Hgb Hct MCV MCH MCHC RDW Plt Count MPV Immature Gran % (Auto) Neut % (Auto) Lymph % (Auto) [place] % (Auto) Eos % (Auto) Baso % (Auto) Lymph # (Auto) [place] # (Auto) Eos # (Auto) Baso # (Auto) Abs Immat Gran (auto) Absolute Neuts (auto) Absolute Nucleated RBC Nucleated RBC % (auto) PT 36.0 H INR 3.0 H Sodium 139 Potassium 4.6 Chloride 106 Carbon Dioxide 22 Anion Gap 16 BUN 46 H Creatinine 1.84 H Estim Creat Clear Calc 25.2 Estimated GFR 26 POC Glucose 288 H 200 H Random Glucose 198 H Calcium 8.9 Discharge Plan Discharge Anticipated Discharge Date/Time: 06/29/24 11:08 Patient Disposition: Xfer SNF Discharge Diagnosis: UTI, metabolic encephalopathy, DOROTHY, slow speech, acute gout Referrals: [facility] [Outside] - 1 Day (SHORT TERM REHAB) Nano Delaney MD [Primary Care Provider] - 1 Week Discharge Medications: New colchicine 0.6 mg tablet 0.6 mg PO DAILY PRN (Reason: gout pain) Qty: 14 0RF ertapenem 1 gram recon soln 0.5 g IV DAILY Qty: 8 0RF Continued atorvastatin 10 mg tablet 10 mg PO BEDTIME Qty: 90 3RF melatonin 5 mg tablet 10 mg PO BEDTIME PRN (Reason: Sleep) metoprolol succinate 200 mg tablet extended release 24 hr 200 mg PO DAILY Qty: 90 3RF PreserVision AREDS 2,148 mcg-113 mg-45 mg-17.4mg Tablet 1 tab PO BIDWM Rx Instructions: administer with AM and PM meals warfarin 1 mg Tablet 1 mg PO MOWEFR Protocol: Dose Management Condition: Thursday (Week One) Dose/Route: 2 mg Instruction: 2 x 1 mg tablets Condition: Thursday Dose/Route: 1 mg Instruction: 1 x 1 mg tablet Condition: Thursday Dose/Route: 2 mg Instruction: 2 x 1 mg tablets Condition: Thursday Dose/Route: 1 mg Instruction: 1 x 1 mg tablet Condition: Dose/Route: 2 mg Instruction: 2 x 1 mg tablets Condition: Thursday Dose/Route: 1 mg Instruction: 1 x 1 mg tablet Condition: Thursday Dose/Route: 2 mg Instruction: 2 x 1 mg tablets Condition: Thursday (Week Two) Dose/Route: 2 mg Instruction: 2 x 1 mg tablets Condition: Thursday Dose/Route: 1 mg Instruction: 1 x 1 mg tablet Condition: Thursday Dose/Route: 2 mg Instruction: 2 x 1 mg tablets Condition: Thursday Dose/Route: 1 mg Instruction: 1 x 1 mg tablet Condition: Dose/Route: 2 mg Instruction: 2 x 1 mg tablets Condition: Thursday Dose/Route: 1 mg Instruction: 1 x 1 mg tablet Condition: Thursday Dose/Route: 2 mg Instruction: 2 x 1 mg tablets Protocol Text: Adjustment Start Date: Thursday06/14/24 INR Value: 2.2 INR Date: 06/14/24 Recheck Date: 06/21/24 Additional Instructions: CONT SAME DOSING insulin glargine [Lantus U-100 Insulin] 100 unit/mL solution 25 unit subcut BEDTIME Qty: 10 0RF insulin aspart U-100 100 unit/mL Solution See Protocol subcut QIDACHS Protocol: Insulin Correction Scale Less than or equal to 110 ---- Give (units): 0 111 to 150 Give (units): 0 151 to 200 Give (units): 2 201 to 250 Give (units): 4 251 to 300 Give (units): 6 301 to 350 Give (units): 8 Greater than 350 Give (units): 10 Call MD if Blood Glucose > : 350 furosemide 20 mg tablet 20 mg PO BID warfarin 1 mg tablet 2 mg PO SUTUTHSA valsartan 40 mg tablet 20 mg PO BID Jardiance 10 mg Tablet 10 mg PO DAILY Qty: 30 0RF levothyroxine 25 mcg tablet 25 mcg PO DAILY@0600 aspirin 81 mg tablet,delayed release (DR/EC) 81 mg PO DAILY (DME) pen needle, diabetic [BD Cathy 2nd Gen Pen Needle] 32 gauge x 5/32 needle See Rx Instructions subcut DAILY Qty: 50 Rx Instructions: As directed (DME) lancets [FreeStyle Lancets] 28 gauge misc See Rx Instructions .ROUTE BID Qty: 100 Rx Instructions: As directed multivitamin [One Daily Multivitamin] Tablet 1 tab PO DAILY amlodipine 5 mg tablet 5 mg PO DAILY Myrbetriq 25 mg tablet extended release 24 hr 25 mg PO DAILY 30 Days Qty: 30 1RF Discharge Orders: Discharge Order (Routine); Ordered 06/29/24 Ordered By: Donnie Schaefer Diet: Diabetic diet Activity on Discharge: As tolerated Stand Alone Forms: Patient Portal Discharge page Print Language: [place] Irish Care Plan Goals: Recovery from UTI, encephalopathy, renal failure, gout, Health Concerns: UTI Encephalopathy Renal failure Gout Plan of Treatment: To short-term rehab for deconditioning. take Ertapenem 0. 5 gavin ( 500 mg) IV daily for uti use colchicine as needed for gout , Assessment: see above
[2024-06-29 11:28] LABS: Glucose, Whole Blood 186 mg/dL (60-115)
[2024-06-29 12:00] VITALS: BP 134/67; PULSE 92; RESP 17; TEMP 36.1; O2SAT 98
[2024-06-29] MEDS: Ertapenem Sodium 0.5 GM in 0.9 % Sodium Chloride 50 ML IV (13:19)
[2024-06-29] MEDS: Nystatin Cream 15 GM TUBE 1 APPL TOPICAL (13:40)
--- NOTE | 2024-06-29 15:34 | MHC.INPTTRAN ---
@ 1500, Powerglide midline inserted, 20g, 10cm, into Left basilic vein. Patient tolerated well. Inserted via ultrasound via sterile technique. Good blood return, flushes easily. Dressed with chlorahexadine impregnated sponge, securement device, and transparent semi-permeable membrane dressing.
--- NOTE | 2024-07-12 10:44 | P.CDIM_ITS ---
PROVIDER RESPONSE TEXT: To clarify, the appropriate diagnosis supported by the clinical indicators: Other (explain): sepsis ruled out QUERY TEXT: PHYSICIAN'S DOCUMENTATION REQUEST Date of Query: 07/08/2024 07:46 AM EDT Patient Name: Belen Brady I Admit Date: 06/17/2024 Dear Donnie Schaefer MD, RETROSPECTIVE QUERY A review of the medical record indicates additional documentation may be needed. Please review below and update the documentation accordingly. Clarity of a noted diagnosis within the medical record: Progress note dated 06/18 - 06/24 - Acute encephalopathy likely related to Sepsis, UTI. Treat underlyin g infection. Progress note dated 06/26 - Staph epid + hominis bacteremia, possibly contamination. ID consult note 06/18 - Gram positive cocci, bacteremia Change Vancomycin to Daptomycin if worsens, Stop Ceftriaxone at this time. Discharge summary 06/29 - Dx. Gram-positive bacteremia/UTI/Encephalopathy. Sepsis Systemic manifestations of infection, with 2 or more SIRS criteria which include: Fever > 100.4?F or hypothermia < 96.8?F Leukocytosis - WBC > 12,000 or leukopenia, WBC < 4,000, or > 10% bands Tachycardia- > 90 beats/minute Tachypnea- RR > 20 breaths/minute or PaCO2 < 32mmHg Source: Merck Manual 2013 Consistency of a principal diagnosis within the medical record, if agree: Sepsis resolved, possible, probable, suspected, etc. After study the Sepsis has been ruled out Other (explain) Clinically unable to determine (explain) Thank you, Danielle Deleon, CCS, CDIS Use of terms such as suspected, likely, concern for, or probable (associated with a specific diagnosi s that is being evaluated, monitored, or treated as if it exists) are acceptable and can be coded in the inpatient se tting, when documented at the time of discharge. Please use your independent medical judgment in providing your response. THIS QUERY IS PART OF THE PERMANENT MEDICAL RECORD
--- NOTE | 2024-07-12 10:44 | P.CDIM_ITS ---
PROVIDER RESPONSE TEXT: To clarify, the appropriate diagnosis supported by the clinical indicators: Yes the UTI is related to / associated with / due to the chronic urinary catheter QUERY TEXT: PHYSICIAN'S DOCUMENTATION REQUEST Date of Query: 07/08/2024 08:22 AM EDT Patient Name: Belen Brady I Admit Date: 06/17/2024 Dear Donnie Schaefer MD, RETROSPECTIVE QUERY A review of the medical record indicates additional documentation may be needed. Please review below and update the documentation accordingly. Clinical Indicators: ID consult 06/18 - Possible strep or staph bacteria, she has exudate in [place], no definitive organism in urine. Treat possible UTI. Change Vancomycin to Daptomycin, stop Ceftriaxone. Micro 06/23 - UA + - pseudomonas aeruginosa/achromobater xylosoxidans. Turbid urine, leukocyte 3+, Urine RBC 11-20, Urine WBC >50 Please clarify the relationship between these conditions if any: Yes the UTI is related to / associated with / due to the chronic urinary catheter No the UTI is not related to / associated with / due to the chronic urinary catheter Other (explain) Clinically unable to determine (explain) Thank you, Danielle Deleon, CCS, CDIS Use of terms such as suspected, likely, concern for, or probable (associated with a specific diagnosi s that is being evaluated, monitored, or treated as if it exists) are acceptable and can be coded in the inpatient se tting, when documented at the time of discharge. Please use your independent medical judgment in providing your response. THIS QUERY IS PART OF THE PERMANENT MEDICAL RECORD
== END 2024-06-29 16:20 | disposition skilled nursing facility (03) | DRG 698 ==
LOC: HO.ED 13:18 → HO.EDOVER 14:35 → HO.IMC 19:23
PROVIDERS: Family Medicine; Student in an Organized Health Care Education/Training Program; Admitting Provider Student in an Organized Health Care Education/Training Program; Emergency Provider Emergency Medicine; PCP Internal Medicine; Visit Provider Internal Medicine
DX: T83.518A Infection and inflammatory reaction due to other urinary catheter, initial encounter (principal); G93.41 Metabolic encephalopathy; E87.1 Hypo-osmolality and hyponatremia; N17.9 Acute kidney failure, unspecified; I50.22 Chronic systolic (congestive) heart failure; I48.19 Other persistent atrial fibrillation; E87.22 Chronic metabolic acidosis; N39.0 Urinary tract infection, site not specified; B96.5 Pseudomonas (aeruginosa) (mallei) (pseudomallei) as the cause of diseases classified elsewhere; E87.5 Hyperkalemia; M10.9 Gout, unspecified; E11.65 Type 2 diabetes mellitus with hyperglycemia; N18.30 Chronic kidney disease, stage 3 unspecified; I25.10 Atherosclerotic heart disease of native coronary artery without angina pectoris; N31.9 Neuromuscular dysfunction of bladder, unspecified; E11.22 Type 2 diabetes mellitus with diabetic chronic kidney disease; E03.9 Hypothyroidism, unspecified; I08.0 Rheumatic disorders of both mitral and aortic valves; Z20.822 Contact with and (suspected) exposure to COVID-19; Z79.4 Long term (current) use of insulin; Z79.01 Long term (current) use of 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; Z79.82 Long term (current) use of aspirin; Z79.890 Hormone replacement therapy; Z79.899 Other long term (current) drug therapy
CPT/HCPCS: 0241U; 36410; 36415; 70450; 70551; 71045; 73120; 80048; 80051; 80061; 80076; 80202; 81001; 82565; 82947; 83036; 83605; 83690; 83735; 83880; 84484; 84550; 85025; 85027; 85610; 87040; 87077; 87086; 87088; 87186; 87205; 92950; 93005; 93306; 93880; 97110; 97112; 97116; 97163; 97166; 97530; 99285; J0696; J1335; J2185; J3370; J7120

== ENCOUNTER → 2024-06-17 14:17 | Outpatient (BNV) | payer MEDICARE, SELFPAY | PROVIDERS: Admitting Provider Student in an Organized Health Care Education/Training Program; Emergency Provider Emergency Medicine; PCP Internal Medicine; Visit Provider Internal Medicine | DX: I35.0 Nonrheumatic aortic (valve) stenosis (principal); I36.1 Nonrheumatic tricuspid (valve) insufficiency; I34.81 Nonrheumatic mitral (valve) annulus calcification; I42.2 Other hypertrophic cardiomyopathy | CPT/HCPCS: 93306 ==

== ENCOUNTER → 2024-06-17 14:21 | Outpatient (BNV) | payer MEDICARE, SELFPAY | PROVIDERS: Admitting Provider Student in an Organized Health Care Education/Training Program; Emergency Provider Emergency Medicine; PCP Internal Medicine; Visit Provider Psychiatry & Neurology Neurology | DX: N39.0 Urinary tract infection, site not specified (principal); G04 Encephalitis, myelitis and encephalomyelitis; I67.9 Cerebrovascular disease, unspecified | CPT/HCPCS: 99222 ==

== ENCOUNTER → 2024-06-17 14:21 | Outpatient (BNV) | payer MEDICARE, SELFPAY | PROVIDERS: Admitting Provider Student in an Organized Health Care Education/Training Program; Emergency Provider Emergency Medicine; PCP Internal Medicine; Visit Provider Physician Assistant | DX: M10.032 Idiopathic gout, left wrist (principal) | CPT/HCPCS: 99358 ==

== ENCOUNTER → 2024-06-17 14:21 | Outpatient (BNV) | payer MEDICARE, SELFPAY | PROVIDERS: Admitting Provider Student in an Organized Health Care Education/Training Program; Emergency Provider Emergency Medicine; PCP Internal Medicine; Visit Provider Internal Medicine | DX: R78.81 Bacteremia (principal); G93.40 Encephalopathy, unspecified; R47.01 Aphasia | CPT/HCPCS: 99222 ==

== ENCOUNTER → 2024-06-17 14:21 | Outpatient (BNV) | payer MEDICARE, SELFPAY | PROVIDERS: Admitting Provider Student in an Organized Health Care Education/Training Program; Emergency Provider Emergency Medicine; PCP Internal Medicine; Visit Provider Student in an Organized Health Care Education/Training Program | DX: N39.0 Urinary tract infection, site not specified (principal) | CPT/HCPCS: 99223; 99232; 99239 ==

== ENCOUNTER → 2024-06-17 14:21 | Outpatient (BNV) | payer MEDICARE, SELFPAY | PROVIDERS: Admitting Provider Student in an Organized Health Care Education/Training Program; Emergency Provider Emergency Medicine; PCP Internal Medicine; Visit Provider Internal Medicine Hypertension Specialist | DX: N17.9 Acute kidney failure, unspecified (principal); E11.22 Type 2 diabetes mellitus with diabetic chronic kidney disease; N18.9 Chronic kidney disease, unspecified | CPT/HCPCS: 99223; 99232 ==

== ENCOUNTER 2024-07-18 14:08 | Outpatient (REF) | payer MEDICARE, SELFPAY ==
[2024-07-18 14:57] LABS: INTERNATIONAL NORM RATIO 1.7 (0.9-1.1); Prothrombin Time 21.2 SEC (11.1-13.3)
== END 2024-07-18 14:09 | disposition home or self-care (01) ==
LOC: HO.LAB 14:08
PROVIDERS: PCP Internal Medicine; Visit Provider Nurse Practitioner Family
DX: I50.30 Unspecified diastolic (congestive) heart failure (principal)
CPT/HCPCS: 36415; 85610

== ENCOUNTER → 2024-07-20 13:48 | Outpatient (BNVA) | payer MEDICARE, SELFPAY | PROVIDERS: PCP Internal Medicine; Visit Provider Internal Medicine | DX: I48.0 Paroxysmal atrial fibrillation (principal); Z79.01 Long term (current) use of 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; Z51.81 Encounter for therapeutic drug level monitoring | CPT/HCPCS: 85610 ==

== ENCOUNTER → 2024-07-21 11:59 | Outpatient (BNVA) | payer MEDICARE, SELFPAY | PROVIDERS: PCP Internal Medicine; Visit Provider Internal Medicine ==

== ENCOUNTER → 2024-07-25 13:27 | Outpatient (BNVA) | payer MEDICARE, SELFPAY | PROVIDERS: PCP Internal Medicine; Visit Provider Internal Medicine ==

== ENCOUNTER → 2024-07-29 10:42 | Outpatient (BNVA) | payer MEDICARE, SELFPAY | PROVIDERS: PCP Internal Medicine; Visit Provider Urology | DX: Z93.59 Other cystostomy status (principal) | CPT/HCPCS: 51705 ==

== ENCOUNTER → 2024-08-01 14:37 | Outpatient (BNVA) | payer MEDICARE, SELFPAY | PROVIDERS: PCP Internal Medicine; Visit Provider Internal Medicine ==

== ENCOUNTER → 2024-08-08 12:00 | Outpatient (BNVA) | payer MEDICARE, SELFPAY | PROVIDERS: PCP Internal Medicine; Visit Provider Internal Medicine ==

== ENCOUNTER → 2024-08-17 13:27 | Outpatient (BNVA) | payer MEDICARE, SELFPAY | PROVIDERS: PCP Internal Medicine; Visit Provider Internal Medicine ==

== ENCOUNTER 2024-08-23 14:12 | Outpatient (AMB) | payer MEDICARE, SELFPAY ==
--- NOTE | 2024-08-23 15:12 | AM.OFFVISNUR ---
Intake Visit Reasons: 4w cath change Allergies No Known Allergies [No Known Allergies*] Allergy (Verified 08/17/24 15:22) Nursing Note 18 fr sp tube exchanged with new 18 fr david sp tube, 10 ml balloon with flip valve. Pt tolerated exchange well. 4 weeks next change. Daughter reports intermittent burning and foul odor from urine. Patient currently denies any symptoms and reports feeling good. UA and culture performed with new SP tube. UA results reviewed with Dr. Sharma: +Leukocytes, negative nitrite, plan is to wait for final culture results. Dr. Sharma gave verbal orders for methenamine and ascorbic acid daily. Patient also has red rash in the groin region and bilateral abdominal folds. I discussed with Dr. Sharma who recommended interdry and also nystatin powder. Office Procedures Bladder/Catheter Procedure 43766-[id number] of bladder tube Procedure code (CPT) selection complete Results AMB INR Fingerstick AMB INR Fingerstick 3.9 Last Edit by Deja Templeton RN on 08/23/24 12:04 vna AMB Urinalysis, Automated UA Leukoctes 500 [place]/uL Last Edit by Golden Bhatia RN on 08/23/24 15:12 UA Nitrite Negative Last Edit by Golden Bhatia RN on 08/23/24 15:12 UA Urobilinogen 0.2 mg/dL Last Edit by Golden Bhatia RN on 08/23/24 15:12 UA Protein 100 mg/dL Last Edit by Golden Bhatia RN on 08/23/24 15:12 UA pH 5.5 Last Edit by Golden Bhatia RN on 08/23/24 15:12 UA Blood 200 [place]/uL Last Edit by Golden Bhatia RN on 08/23/24 15:12 UA Specific [place] 1.030 Last Edit by Golden Bhatia RN on 08/23/24 15:12 UA Ketone Negative Last Edit by Golden Bhatia RN on 08/23/24 15:12 UA Bilirubin 0 mg/dL Last Edit by Golden Bhatia RN on 08/23/24 15:12 UA Glucose 0 mg/dL Last Edit by Golden Bhatia RN on 08/23/24 15:12 Assessment & Plan Assessment & Plan Orders: Orders AMB Urinalysis Automated Today Z13.9 - Encounter for screening, unspecified Urine Culture Today R39.9 - Unspecified symptoms and signs involving the genitourinary system, Z93.59 - Other cystostomy status AMB Bladder/Catheter Procedure Today Z93.59 - Other cystostomy status Medications: Refilled nystatin 1 appl See Protocol topical TID 30 grams 0RF
== END 2024-08-23 15:09 | disposition home or self-care (01) ==
PROVIDERS: PCP Internal Medicine; Visit Provider Urology
DX: Z13.9 Encounter for screening, unspecified (principal)

== ENCOUNTER 2024-08-23 17:10 | Outpatient (REF) | payer MEDICARE, SELFPAY | END 2024-08-23 17:11 | disposition home or self-care (01) | LOC: HO.LNP 17:10 | PROVIDERS: Visit Provider Urology | DX: R39.9 Unspecified symptoms and signs involving the genitourinary system (principal); Z93.59 Other cystostomy status | CPT/HCPCS: 51705; 81003; 87086 ==

== ENCOUNTER → 2024-08-30 11:48 | Outpatient (BNVA) | payer MEDICARE, SELFPAY | PROVIDERS: PCP Internal Medicine; Visit Provider Internal Medicine ==

== ENCOUNTER → 2024-09-06 11:14 | Outpatient (BNVA) | payer MEDICARE, SELFPAY | PROVIDERS: PCP Internal Medicine; Visit Provider Internal Medicine ==

== ENCOUNTER 2024-09-09 10:39 | Outpatient (REF) | payer MEDICARE, SELFPAY ==
[2024-09-09 11:11] LABS: Hemoglobin 13.5 g/dl (12.0-16.0); Mean Corpuscular HGB Conc 32.9 g/dl (31.0-35.0); Mean Corpuscular Hemoglobin 28.8 pg (27.0-33.0); Mean Corpuscular Volume 87.4 fL (80.0-98.0); Platelet Count 288 X10*3/uL (160-400); Red Blood Count 4.69 X10*6/uL (4.20-5.50); Red Cell Distribution Width 17.7 % (11.0-16.0); White Blood Count 6.9 X10*3/uL (4.8-10.8)
[2024-09-09 11:24] LABS: Prothrombin Time 65.2 SEC (10.9-12.4)
[2024-09-09 11:27] LABS: INTERNATIONAL NORM RATIO 5.6 (0.9-1.1)
== END 2024-09-09 10:40 | disposition home or self-care (01) ==
LOC: HO.LAB 10:39
PROVIDERS: PCP Internal Medicine; Visit Provider Internal Medicine
DX: Z79.01 Long term (current) use of 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 (principal)
CPT/HCPCS: 36415; 85027; 85610

== ENCOUNTER → 2024-09-19 14:28 | Outpatient (BNVA) | payer MEDICARE, SELFPAY | PROVIDERS: PCP Internal Medicine; Visit Provider Internal Medicine | DX: I48.0 Paroxysmal atrial fibrillation (principal); Z79.01 Long term (current) use of 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; Z51.81 Encounter for therapeutic drug level monitoring | CPT/HCPCS: 51705; 81003 ==

== ENCOUNTER 2024-09-19 14:40 | Outpatient (AMB) | payer MEDICARE, SELFPAY ==
--- NOTE | 2024-09-19 14:44 | AM.OFFVISNUR ---
Intake Visit Reasons: catheter change Allergies No Known Allergies [No Known Allergies*] Allergy (Verified 09/19/24 14:31) Office Procedures Bladder/Catheter Procedure Details: 18 fr sp tube exchanged with new 20 fr david sp tube, 10 ml balloon with flip valve. Pt tolerated exchange well. 4 weeks next change [id number] of bladder tube Procedure code (CPT) selection complete Results AMB INR Fingerstick AMB INR Fingerstick 2.0 Last Edit by Zoraida Schultz RN on 09/19/24 14:40 [facility] Assessment & Plan Assessment & Plan Orders: Orders AMB Bladder/Catheter Procedure Today Z93.59 - Other cystostomy status
== END 2024-09-19 15:12 | disposition home or self-care (01) ==
PROVIDERS: PCP Internal Medicine; Visit Provider Urology
DX: N39.0 Urinary tract infection, site not specified (principal); Z93.59 Other cystostomy status

== ENCOUNTER 2024-09-19 16:35 | Outpatient (REF) | payer MEDICARE, SELFPAY | END 2024-09-19 16:36 | disposition home or self-care (01) | LOC: HO.LNP 16:35 | PROVIDERS: Visit Provider Urology | DX: N39.0 Urinary tract infection, site not specified (principal); Z93.59 Other cystostomy status | CPT/HCPCS: 87086 ==

== ENCOUNTER → 2024-10-03 11:55 | Outpatient (BNVA) | payer MEDICARE, SELFPAY | PROVIDERS: PCP Internal Medicine; Visit Provider Internal Medicine ==

== ENCOUNTER 2024-10-11 12:41 | Outpatient (AMB) | payer MEDICARE, SELFPAY ==
--- NOTE | 2024-10-11 13:50 | AM.OFFVISNUR ---
Intake Visit Reasons: catheter evaluation Allergies No Known Allergies [No Known Allergies*] Allergy (Verified 10/10/24 11:18) Office Procedures Bladder/Catheter Procedure Details: 20 fr sp tube exchanged with new 20 fr david sp tube, 10 ml balloon with flip valve. Pt tolerated exchange well. 3 weeks next change. Patient UA indicating infection, reviewed with Dr. crockett- sent levofloxacin 500mg daily x7. 54466-[id number] of bladder tube Procedure code (CPT) selection complete Results AMB Urinalysis, Automated UA Leukoctes 500 [place]/uL Last Edit by Tye Lockhart LPN on 10/11/24 13:52 UA Nitrite Negative Last Edit by Tye Lockhart LPN on 10/11/24 13:52 UA Urobilinogen 0.2 mg/dL Last Edit by Tye Lockhart LPN on 10/11/24 13:52 UA Protein 100 mg/dL Last Edit by Tye Lockhart LPN on 10/11/24 13:52 UA pH 6.0 Last Edit by Tye Lockhart LPN on 10/11/24 13:52 UA Blood 200 [place]/uL Last Edit by Tey Lockhart LPN on 10/11/24 13:52 UA Specific [place] 1.020 Last Edit by Tye Lockhart LPN on 10/11/24 13:52 UA Ketone Negative Last Edit by Tye Lockhart LPN on 10/11/24 13:52 UA Bilirubin 0 mg/dL Last Edit by Tye Lockhart LPN on 10/11/24 13:52 UA Glucose 500 mg/dL Last Edit by Tye Lockhart LPN on 10/11/24 13:52 Assessment & Plan Assessment & Plan Orders: Orders AMB Bladder/Catheter Procedure Today N39.0 - Urinary tract infection, site not specified, Z93.59 - Other cystostomy status AMB Urinalysis Automated Today N39.0 - Urinary tract infection, site not specified, Z93.59 - Other cystostomy status Urine Culture Today N39.0 - Urinary tract infection, site not specified, Z93.59 - Other cystostomy status Medications: New levofloxacin 500 mg PO DAILY 7 tabs 0RF 7 days
== END 2024-10-11 13:45 | disposition home or self-care (01) ==
PROVIDERS: PCP Internal Medicine; Visit Provider Urology
DX: N39.0 Urinary tract infection, site not specified (principal); Z93.59 Other cystostomy status

== ENCOUNTER 2024-10-11 12:41 | Outpatient (REF) | payer MEDICARE, SELFPAY | END 2024-10-11 12:42 | disposition home or self-care (01) | LOC: HO.LAB 12:41 | PROVIDERS: PCP Internal Medicine; Visit Provider Urology | DX: Z93.59 Other cystostomy status (principal); N39.0 Urinary tract infection, site not specified; B95.2 Enterococcus as the cause of diseases classified elsewhere | CPT/HCPCS: 51705; 81003; 87086; 87088; 87186 ==

== ENCOUNTER → 2024-10-13 10:36 | Outpatient (BNVA) | payer MEDICARE, SELFPAY | PROVIDERS: PCP Internal Medicine; Visit Provider Internal Medicine | DX: Z79.01 Long term (current) use of 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 (principal) ==

== ENCOUNTER 2024-10-18 13:51 | Outpatient (AMB) | payer MEDICARE, SELFPAY ==
--- NOTE | 2024-10-18 14:25 | MHC.OFFVISCO ---
Intake Intake Visit Reasons: Anticoagulation Allergies No Known Allergies [No Known Allergies*] Allergy (Verified 10/18/24 13:59) Medication List - Last Reconciled 10/18/24 by Deja Sheldon RN amlodipine 5 mg PO DAILY amoxicillin-pot clavulanate 875-125 mg 1 tab PO BID 14 days ascorbic acid (vitamin C) 1 g PO DAILY aspirin 81 mg PO DAILY atorvastatin 10 mg PO BEDTIME clopidogrel 75 mg PO DAILY colchicine 0.6 mg PO QID empagliflozin (Jardiance) 10 mg PO DAILY ertapenem 0.5 grams IV DAILY furosemide 20 mg PO BID insulin aspart U-100 See Protocol sliding scale doses subcut QIDACHS insulin glargine (Lantus U-100 Insulin) 25 units (0.25 mL) subcut BEDTIME [interdry As directed. Apply interdry to abdominal and inguinal folds. ] ketorolac 0.5% drps ophthalmic (eye) lancets (FreeStyle Lancets) As directed latanoprost 0.005% 1 drp ophthalmic-Right BEDTIME levofloxacin 500 mg PO DAILY 7 days levothyroxine 25 mcg PO DAILY@0600 melatonin 10 mg PO BEDTIME PRN methenamine hippurate 1 g PO DAILY 90 days metoprolol succinate ER 200 mg PO DAILY mirabegron ER (Myrbetriq) 25 mg PO DAILY 30 days multivitamin (One Daily Multivitamin tablet) 1 tab PO DAILY nystatin 1 appl See Protocol topical TID pen needle, diabetic (BD Cathy 2nd Gen Pen Needle) As directed valsartan 20 mg PO BID vitamins A,C,S-scvd-dscqtm 2,148 mcg-113 mg-45 mg-17.4mg (PreserVision AREDS) 1 tab PO BIDWM warfarin See Protocol 2 mg orally 1MG X 5 DAYS/ 2MG X 2 DAYS; Nursing Note To ACS via W/C, accomp by adult [facility] Medications and supplements reviewed, pt is on levofloxacin for UTI, noted also on emar amoxicillin- pot clavulanate ordered 10/13/24 which pt and daughter sts she has not been taking and we didn't get notified from pharmacy - completed levofloxacin today No other changes in health, diet, medications, or supplements, Denies any unusual signs and symptoms of bleeding, bruising, or clotting. Bleeding, bruising, clotting discussed INR: 2.1 now in therapeutic range, awaiting anticipated delayed raise in INR from levofloxacin Dose: to continue on 2mg on Tuesdays and Thursday and 1mg all other days continue to have good greens F/U INR: recommended 1 [address] pt and daughter st that cant make it before and they are heading up to [place] on till the 05 of November Appt made for Thursday11/07/24 with instructions of any signs of blood clot go to ED for INR, or any S/S bleeding to ED for INR Patient and daughter verbalizes understanding of instructions given TC to Dr Crews office and message left for RN regarding amoxicillin-pot clavulanate Anti-Coag Initial Assessment Social Hx Patient Tobacco Use Status: Never used Tobacco alcohol intake: never Alcohol intake frequency: does not drink Coding Level of Care Code Est Patient Level 1 Diagnoses Current use of anticoagulant therapy Z79.01 Time Spent (min) 20 Results AMB INR Fingerstick AMB INR Fingerstick 2.1 Last Edit by Deja Sheldon RN on 10/18/24 14:23 interface failure Assessment & Plan Assessment & Plan (1) Current use of anticoagulant therapy: 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
[2024-10-19 14:40] LABS: Prothrombin Time Whole Bld POC 25.3 sec (11.1-13.5); ~PT, ~INR - Anti Coag Clinic 2.1 (0.9-1.1)
== END 2024-10-18 15:47 | disposition home or self-care (01) ==
LOC: HO.ACS 13:51
PROVIDERS: PCP Internal Medicine; Visit Provider Internal Medicine
DX: Z79.01 Long term (current) use of 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 (principal)

== ENCOUNTER → 2024-10-18 13:51 | Outpatient (BNVA) | payer MEDICARE, SELFPAY | PROVIDERS: PCP Internal Medicine; Visit Provider Internal Medicine | DX: I48.0 Paroxysmal atrial fibrillation (principal); Z79.01 Long term (current) use of 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; Z51.81 Encounter for therapeutic drug level monitoring | CPT/HCPCS: 85610; 99211 ==

== ENCOUNTER → 2024-10-21 07:51 | Outpatient (BNVA) | payer MEDICARE, SELFPAY | PROVIDERS: PCP Internal Medicine; Visit Provider Internal Medicine ==

== ENCOUNTER → 2024-11-09 13:18 | Outpatient (BNVA) | payer MEDICARE, SELFPAY | PROVIDERS: PCP Internal Medicine; Visit Provider Urology | DX: Z93.59 Other cystostomy status (principal) | CPT/HCPCS: 51705 ==

== ENCOUNTER 2024-11-15 13:40 | Outpatient (AMB) | payer MEDICARE, SELFPAY ==
[2024-11-15 13:48] LABS: Prothrombin Time Whole Bld POC 36.8 sec (11.1-13.5); ~PT, ~INR - Anti Coag Clinic 3.1 (0.9-1.1)
--- NOTE | 2024-11-15 13:54 | MHC.OFFVISCO ---
Intake Intake Visit Reasons: Anticoagulation Allergies No Known Allergies [No Known Allergies*] Allergy (Verified 11/15/24 13:42) Medication List - Last Reconciled 11/15/24 by Deja Templeton RN amlodipine 5 mg PO DAILY amoxicillin-pot clavulanate 875-125 mg 1 tab PO BID 14 days ascorbic acid (vitamin C) 1 g PO DAILY aspirin 81 mg PO DAILY atorvastatin 10 mg PO BEDTIME clopidogrel 75 mg PO DAILY colchicine 0.6 mg PO QID empagliflozin (Jardiance) 10 mg PO DAILY ertapenem 0.5 grams IV DAILY furosemide 20 mg PO BID insulin aspart U-100 See Protocol sliding scale doses subcut QIDACHS insulin glargine (Lantus U-100 Insulin) 25 units (0.25 mL) subcut BEDTIME [interdry As directed. Apply interdry to abdominal and inguinal folds. ] ketoconazole 2% appl topical BID ketorolac 0.5% drps ophthalmic (eye) lancets (FreeStyle Lancets) As directed latanoprost 0.005% 1 drp ophthalmic-Right BEDTIME levofloxacin 500 mg PO DAILY 7 days levothyroxine 25 mcg PO DAILY@0600 melatonin 10 mg PO BEDTIME PRN methenamine hippurate 1 g PO DAILY 90 days metoprolol succinate ER 200 mg PO DAILY mirabegron ER (Myrbetriq) 25 mg PO DAILY 30 days multivitamin (One Daily Multivitamin tablet) 1 tab PO DAILY nystatin 1 appl See Protocol topical TID pen needle, diabetic (BD Cathy 2nd Gen Pen Needle) As directed valsartan 20 mg PO BID vitamins A,C,V-jjdg-ccyugm 2,148 mcg-113 mg-45 mg-17.4mg (PreserVision AREDS) 1 tab PO BIDWM warfarin See Protocol 2 mg orally 1MG X 5 DAYS/ 2MG X 2 DAYS; Nursing Note INR 3.1?out of therapeutic range 2-3 Medications and supplements reviewed Patient status: no changes Medications or supplements: no changes Diet: usual diet for pt Denies any signs and symptoms of bleeding or clotting or unusual bruising Bleeding, bruising, clotting discussed Nutritional guidance given: to have a serving of greens today. Pt states she will have asparagus today or tomorrow Dose: 1mg daily F/U INR Date : 2 weeks?? Patient verbalizing understanding of instructions given. Anti-Coag Initial Assessment Social Hx Patient Tobacco Use Status: Never used Tobacco alcohol intake: never Alcohol intake frequency: does not drink Coding Level of Care Code Est Patient Level 1 Diagnoses Current use of anticoagulant therapy Z79.01 Assessment & Plan Assessment & Plan (1) Current use of anticoagulant therapy: Code(s): Z79.01 - FDC (current) use of 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
== END 2024-11-15 14:01 | disposition home or self-care (01) ==
LOC: HO.ACS 13:40
PROVIDERS: PCP Internal Medicine; Visit Provider Internal Medicine
DX: Z79.01 Long term (current) use of 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 (principal)

== ENCOUNTER → 2024-11-15 13:40 | Outpatient (BNVA) | payer MEDICARE, SELFPAY | PROVIDERS: PCP Internal Medicine; Visit Provider Internal Medicine | DX: I48.0 Paroxysmal atrial fibrillation (principal); Z79.01 Long term (current) use of 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; Z51.81 Encounter for therapeutic drug level monitoring | CPT/HCPCS: 85610; 99211 ==

== ENCOUNTER 2024-11-29 13:38 | Outpatient (AMB) | payer MEDICARE, SELFPAY ==
[2024-11-29 13:47] LABS: Prothrombin Time Whole Bld POC 32.5 sec (11.1-13.5); ~PT, ~INR - Anti Coag Clinic 2.7 (0.9-1.1)
--- NOTE | 2024-11-29 13:55 | MHC.OFFVISCO ---
Intake Intake Visit Reasons: Anticoagulation Allergies No Known Allergies [No Known Allergies*] Allergy (Verified 11/29/24 13:39) Medication List - Last Reconciled 11/29/24 by Deja Templeton RN amlodipine 5 mg PO DAILY amoxicillin-pot clavulanate 875-125 mg 1 tab PO BID 14 days ascorbic acid (vitamin C) 1 g PO DAILY aspirin 81 mg PO DAILY atorvastatin 10 mg PO BEDTIME clopidogrel 75 mg PO DAILY colchicine 0.6 mg PO QID empagliflozin (Jardiance) 10 mg PO DAILY ertapenem 0.5 grams IV DAILY furosemide 20 mg PO BID insulin aspart U-100 See Protocol sliding scale doses subcut QIDACHS insulin glargine (Lantus U-100 Insulin) 25 units (0.25 mL) subcut BEDTIME [interdry As directed. Apply interdry to abdominal and inguinal folds. ] ketoconazole 2% appl topical BID ketorolac 0.5% drps ophthalmic (eye) lancets (FreeStyle Lancets) As directed latanoprost 0.005% 1 drp ophthalmic-Right BEDTIME levofloxacin 500 mg PO DAILY 7 days levothyroxine 25 mcg PO DAILY@0600 melatonin 10 mg PO BEDTIME PRN methenamine hippurate 1 g PO DAILY 90 days metoprolol succinate ER 200 mg PO DAILY mirabegron ER (Myrbetriq) 25 mg PO DAILY 30 days multivitamin (One Daily Multivitamin tablet) 1 tab PO DAILY nystatin 1 appl See Protocol topical TID pen needle, diabetic (BD Cathy 2nd Gen Pen Needle) As directed valsartan 20 mg PO BID vitamins A,C,E-hbry-sbpwcu 2,148 mcg-113 mg-45 mg-17.4mg (PreserVision AREDS) 1 tab PO BIDWM warfarin See Protocol 2 mg orally 1MG X 5 DAYS/ 2MG X 2 DAYS; Nursing Note INR: 2.7 in therapeutic range of 2-3 Medications and supplements reviewed: no changes No changes in health, diet, medications, or supplements, Denies any signs and symptoms of bleeding or bruising or clotting. 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
--- OUTSIDE RECORDS SUMMARY | 2024-11-29 14:37 | XMS_ITS | Clinical Summary ---
Author Organization [facility] Address [address] [place] [address] Phone Care Team Providers Care Machine Designer Name Role Phone Nano Delaney MD Primary Care Provider [phone] Allergies No known active allergies Medications amLODIPine (NORVASC) 5 MG tablet Take 1 tablet by mouth 1 (one) time each day in the evening 06/02/2019 Active Multiple Vitamin (multivitamin) capsule Take 1 capsule by mouth 1 (one) time each day Active aspirin 81 MG chewable tablet Chew 1 tablet 1 (one) time each day Active atorvastatin (LIPITOR) 10 MG tablet Take 1 tablet by mouth at bed time Active lisinopril 10 MG tablet Take 1 tablet by mouth 1 (one) time each day 06/02/2019 Active insulin glargine (Lantus SoloStar) 100 UNIT/ML injection Active ciprofloxacin (CIPRO) 500 MG tablet 08/16/2021 Active furosemide (LASIX) 40 MG tablet 07/07/2021 Active levothyroxine (SYNTHROID, LEVOTHROID) 25 MCG tablet 07/18/2021 Active metoprolol tartrate (LOPRESSOR) 50 MG tablet 08/22/2021 Active warfarin (COUMADIN) 5 MG tablet 09/02/2021 Active metoprolol succinate XL (TOPROL XL) 50 MG 24 hr tablet Take 75 mg by mouth 1 (one) time each day 12/16/2021 Active oxybutynin XL (DITROPAN-XL) 10 MG 24 hr tablet Take 10 mg by mouth 1 (one) time each day 01/06/2022 Active Active Problems Problem Noted Date Diagnosed Date Chronic kidney disease stage 3 09/11/2021 Essential hypertension 09/11/2021 Type 2 diabetes mellitus 09/11/2021 Family History Medical History Relation Comments Hypertension Father Relation Status Comments Father Social History Tobacco Use Types Packs/Day Years Used Date Smoking Tobacco: Never Smokeless Tobacco: Never Alcohol Use Standard Drinks/Week Comments Yes 0 (1 standard drink = 0.6 oz pure alcohol) Alcoholic Drinks/day: Occasional social drink Comments Unknown Sex and Gender Information Value Date Recorded Sex Assigned at Not on file Legal Sex Female 4:54 PM EST Gender Identity Not on file Sexual Orientation Not on file Last Filed Vital Signs Vital Sign Reading Time Taken Comments Blood Pressure 100/68 09/19/2021 1:08 PM EST Pulse 101 09/19/2021 1:08 PM EST Temperature - - Respiratory Rate - - Oxygen Saturation 97% 09/19/2021 1:08 PM EST Inhaled Oxygen Concentration - - Weight 90.7 kg (200 lb) 09/19/2021 1:08 PM EST Height 165.1 cm (5' 5 ) 12/16/2019 12:00 PM EST Body Mass Index 33.28 12/16/2019 12:00 PM EST Plan of Treatment Health Maintenance Due Date Last Done Comments Pneumococcal Vaccine: 65+ Ye ars (1 of 2 - PCV) 1946 Diabetes: Hemoglobin A1C 12/03/2020 Diabetes: Ophthalmology Exam 12/03/2020 Diabetes: Pedal Pulse Checked 12/03/2020 Diabetes: Sensory Foot Exam 12/03/2020 Diabetes: Visual Foot Exam 12/03/2020 Influenza Vaccine (#1) 2024 Hepatitis B Vaccine Aged Out No longe r eligible based on patient's age to complete this topic Insurance [facility] MEDICARE [facility] MEDICARE Care Teams Machine Designer Relationship Specialty Start Date End Date Nano Delaney MD [address] [place] [address] PCP - General 11/12/20
--- OUTSIDE RECORDS SUMMARY | 2024-11-29 14:37 | XMS_ITS ---
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5 - ICD-10-CM) ACTIVE 07/11/2023 PERSONAL HISTORY OF TRANSIEN T ISCHEMIC ATTACK (TIA), AND CEREBRAL INFARCTION WITHOUT RESIDUAL DEFICITS (Z86.73 - ICD-10-CM) ACTIVE 07/11/2023 PAIN IN RIGHT HIP (M25.551 - ICD-10-CM) ACTIVE 0 07/11/2023 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) ACTIVE 05/12/20 23 ENCOUNTER FOR ATTENTION TO O THER ARTIFICIAL OPENINGS OF URINARY TRACT (Z43.6 - ICD-10-CM) RESOLVED 05/12/202306/2023 SEPSIS, UNSPECIFIED ORGANISM (A41.9 - ICD-10-CM) RESOL KODY 05/12/2023 07/09/2023 URINARY TRACT INFECTION, SIT E NOT SPECIFIED (N39.0 - ICD-10-CM) RESOLVED 05/12/2023 07/06/2023 MUSCLE WEAKNESS (GENERALIZED) (M62.81 - ICD-10-CM) RES OLVED 05/12/2023 07/07/2023 DIFFICULTY IN WALKING, NOT E LSEWHERE CLASSIFIED (R26.2 - ICD-10-CM) RESOLVED 05/12/2023 07/07/2023 UNSTEADINESS ON FEET (R26.81 - ICD-10-CM) RESOLVED 05/12/2023 07/07/2023 URINARY TRACT INFECTION, SIT E NOT SPECIFIED (N39.0 - ICD-10-CM) RESOLVED 08/26/2022 05/11/2023 UNSPECIFIED FALL, SEQUELA (W19.XXXS - ICD-10-CM) RESOL KODY 08/26/2022 05/11/2023 MUSCLE WEAKNESS (GENERALIZED) (M62.81 - ICD-10-CM) RES OLVED 08/26/2022 05/11/2023 DIFFICULTY IN WALKING, NOT E LSEWHERE CLASSIFIED (R26.2 - ICD-10-CM) RESOLVED 08/26/2022 05/11/2023 UNSTEADINESS ON FEET (R26.81 - ICD-10-CM) RESOLVED 08/26/2022 05/11/2023 PAROXYSMAL ATRIAL FIBRILLATION (I48.0 - ICD-10-CM) ACT GISSEL 08/26/2022 UNSPECIFIED SYSTOLIC (CONGES TIVE) HEART FAILURE (I50.20 - ICD-10-CM) ACTIVE 08/26/2022 UNILATERAL PRIMARY OSTEOARTH RITIS, RIGHT HIP (M16.11 - ICD-10-CM) ACTIVE 08/26/2022 CHRONIC KIDNEY DISEASE, STAG E 3 UNSPECIFIED (N18.30 - ICD-10-CM) ACTIVE 08/26/2022 HYPOTHYROIDISM, UNSPECIFIED (E03.9 - ICD-10-CM) ACTIVE 08/26/2022 ESSENTIAL (PRIMARY) HYPERTENSION (I10 - ICD-10-CM) ACT GISSEL 08/26/2022 TYPE 2 DIABETES MELLITUS WIT HOUT COMPLICATIONS (E11.9 - ICD-10-CM) ACTIVE 08/26/2022 PERSONAL HISTORY OF COVID-19 (Z86.16 - ICD-10-CM) ACTI VE 08/26/2022 Encounters Encounter Performer Performer Role Encounter Diagnoses Location Date Discharge - Discharged to home or self care - [facility] [place] - Private home/apt. with home health services [facility] 08/26/2022 06:38 pm EDT - 09/17/2022 02:24 pm EST Discharge - Discharged to home or self care - Home (Agency Unknown) - Private home/apt. with home health services [facility] 05/12/2023 06:45 pm EDT - 05/30/2023 01:32 pm EDT Discharge - Discharged to home or self care - Private home/apt. with home health services [facility] 07/11/2023 02:09 pm EDT - 08/01/2023 01:15 pm EDT Immunizations Vaccine Date TB 1 Step [place] (PPD) 07/22/2023 06:15 am EDT SARS-COV-2 (COVID-19) Social History
--- OUTSIDE RECORDS SUMMARY | 2024-11-29 14:37 | XMS_ITS | Patient Health Record ---
Author Organization [facility] Address [address] [place] [address] Support Name Relationship Address Phone DENNISE MENDOZA Guarantor Unknown [phone] Reason For Referral No Information Medications Medication SIG (Take, Route, Frequency, Duration) Notes Start Date End Date Status Atenolol 100MG 1 ORAL DAILY for -3 [facility] 02/02/2012 Active Triamcinolone Acetonide 0.1% 1 External twice daily for -3 [facility] 04/17/2014 Active Aspirin EC 81MG 1 ORAL daily for -3 [facility] 02/02/2012 Active Simvastatin 80MG 1 ORAL daily for -3 [facility] 02/02/2012 Active Plavix 75MG 1 ORAL daily for -3 [facility] 02/02/2012 Active metFORMIN HCl 500MG 1 ORAL four times daily for -3 [facility] 02/02/2012 Active Lisinopril 10MG 1 ORAL daily for -3 [facility] 02/02/2012 Active hydroCHLOROthiazide 25mg 1 ORAL daily for -3 [facility] 02/01 Active Fluconazole 150MG 1 ORAL once for -3 [facility] 05/22/2014 Active Detrol LA 4MG 1 ORAL at bedtime fo r -3 [facility] 05/22/2014 Active Problems Problem Type SNOMED Code ICD Code Onset Dates Problem Status W/U Status Risk Notes Problem Type II diabetes mellitus without complication (348163319) Diabetes mellitus without mention of complication, type II or unspecified type, not stated as uncontrolled (250.00) Active confirmed Major Problem Urinary tract infectious disease (disorder) (58270459) Urinary tract infection, site not specified (599.0) Active confirmed Diag Problem Urinary incontinence (774130031) Unspecified urinary incontinence (788.30) Active confirmed Diag Problem Urinary frequency (145581639) Urinary frequency (788.41) Active confirmed Diag Problem Gynecological examination normal (473541263905889) Routine gynecological examination (V7.31) Active confirmed Diag Plan Of Treatment No Information Insurance Providers Payer Name Payer Address Payer Phone Subscriber Number Group Number Insured Name Patient Relationship to Insured Coverage Start Date Coverage End Date [facility] [address] [place] [address] [id number] DENNISE MENDOZA Self - patient is the insured
== END 2024-11-29 13:59 | disposition home or self-care (01) ==
LOC: HO.ACS 13:38
PROVIDERS: PCP Internal Medicine; Visit Provider Internal Medicine
DX: Z79.01 Long term (current) use of 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 (principal)

== ENCOUNTER → 2024-11-29 13:38 | Outpatient (BNVA) | payer MEDICARE, SELFPAY | PROVIDERS: PCP Internal Medicine; Visit Provider Internal Medicine | DX: I48.0 Paroxysmal atrial fibrillation (principal); Z79.01 Long term (current) use of 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; Z51.81 Encounter for therapeutic drug level monitoring | CPT/HCPCS: 85610; 99211 ==

== ENCOUNTER → 2024-12-02 14:40 | Outpatient (BNVA) | payer MEDICARE, SELFPAY | PROVIDERS: PCP Internal Medicine; Visit Provider Urology | DX: Z46.6 Encounter for fitting and adjustment of urinary device (principal); Z93.59 Other cystostomy status | CPT/HCPCS: 51705 ==

== ENCOUNTER 2024-12-14 13:41 | Outpatient (AMB) | payer MEDICARE, SELFPAY ==
[2024-12-14 13:55] LABS: Prothrombin Time Whole Bld POC 14.8 sec (11.1-13.5); ~PT, ~INR - Anti Coag Clinic 1.2 (0.9-1.1)
--- NOTE | 2024-12-14 13:55 | MHC.OFFVISCO ---
Intake Intake Visit Reasons: Anticoagulation Allergies No Known Allergies [No Known Allergies*] Allergy (Verified 12/14/24 14:10) Medication List - Last Reconciled 12/14/24 by Kayla Jolly RN amlodipine 5 mg PO DAILY amoxicillin-pot clavulanate 875-125 mg 1 tab PO BID 14 days ascorbic acid (vitamin C) 1 g PO DAILY aspirin 81 mg PO DAILY atorvastatin 10 mg PO BEDTIME clopidogrel 75 mg PO DAILY colchicine 0.6 mg PO QID empagliflozin (Jardiance) 10 mg PO DAILY ertapenem 0.5 grams IV DAILY furosemide 20 mg PO BID insulin aspart U-100 See Protocol sliding scale doses subcut QIDACHS insulin glargine (Lantus U-100 Insulin) 25 units (0.25 mL) subcut BEDTIME [interdry As directed. Apply interdry to abdominal and inguinal folds. ] ketoconazole 2% appl topical BID ketorolac 0.5% drps ophthalmic (eye) lancets (FreeStyle Lancets) As directed latanoprost 0.005% 1 drp ophthalmic-Right BEDTIME levofloxacin 500 mg PO DAILY 7 days levothyroxine 25 mcg PO DAILY@0600 melatonin 10 mg PO BEDTIME PRN methenamine hippurate 1 g PO DAILY 90 days metoprolol succinate ER 200 mg PO DAILY mirabegron ER (Myrbetriq) 25 mg PO DAILY 30 days multivitamin (One Daily Multivitamin tablet) 1 tab PO DAILY nystatin 1 appl See Protocol topical TID pen needle, diabetic (BD Cathy 2nd Gen Pen Needle) As directed valsartan 20 mg (1/2 x 40 mg) PO BID vitamins A,C,M-hjrt-lcnoqy 2,148 mcg-113 mg-45 mg-17.4mg (PreserVision AREDS) 1 tab PO BIDWM warfarin See Protocol 2 mg orally 1MG X 5 DAYS/ 2MG X 2 DAYS; Nursing Note INR 1.2-? out of therapeutic range of 2-3 pt denies missed doses Medications and supplements reviewed Patient status: pt to acs in w/c with akosua morales unsure why inr is low no changes in medications, no tylenol, no etoh, no change in appetite Medications or supplements: no changes Diet: appetite is good Denies any signs and symptoms of bleeding or clotting or unusual bruising Bleeding, bruising, clotting discussed Nutritional guidance given: no greens for 2-3 days, eat reds to raise Dose: 2mg today and tomm then 1mg x 7 F/U INR Date : pt ref earlier appt than thu next week, recommended thursday or appt but pt ref Patient verbalizing understanding of instructions given. t/c placed to pcp office, dr corbett to report low inr, dosing and f/u appt, spoke to dev at [facility] states pcp on vacation until thursday and no one covering cardiology called, spoke to homa and she states p t is inactive. Dr Schumacher office called, spoke to jeremy at 1430 - reported low inr, dosing and f/u. 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
--- OUTSIDE RECORDS SUMMARY | 2024-12-14 15:03 | XMS_ITS | Clinical Summary ---
Author Organization [facility] Address [address] [place] [address] Phone Care Team Providers Care Pressure Supervisor Name Role Phone Nano Delaney MD Primary Care Provider Allergies No known active allergies Medications amLODIPine [...] patient's age to complete this topic Insurance [facility] MEDICARE [facility] MEDICARE Care Teams Pressure Supervisor Relationship Specialty Start Date End Date Nano Delaney MD [address] [place] [address] PCP - General 11/12/20
--- OUTSIDE RECORDS SUMMARY | 2024-12-14 15:03 | XMS_ITS | Patient Health Record ---
Author Organization [facility] Address [address] [place] [address] Support Name Relationship Address Phone DENNISE MENDOZA Guarantor Unknown [phone] Reason For Referral No Information Medications Medication SIG (Take, Route, Frequency, Duration) Notes Start Date End Date Status Atenolol 100MG 1 ORAL DAILY for -3 [facility] 02/02/2012 Active Triamcinolone Acetonide 0.1% 1 External twice daily for -3 [facility] 04/17/2014 Active Aspirin EC 81MG 1 ORAL daily for -3 [facility] 02/02/2012 Active Simvastatin 80MG 1 ORAL daily for -3 [facility] 02/02/2012 Active Plavix 75MG 1 ORAL daily for -3 [facility] 02/02/2012 Active metFORMIN HCl 500MG 1 ORAL four times daily for -3 [facility] 02/02/2012 Active Lisinopril 10MG 1 ORAL daily for -3 [facility] 02/02/2012 Active hydroCHLOROthiazide 25mg 1 ORAL daily for -3 [facility] 02/01 Active Fluconazole 150MG 1 ORAL once for -3 [facility] 05/22/2014 Active Detrol LA 4MG 1 ORAL at bedtime fo r - [facility] 05/22/2014 Active Problems Problem Type SNOMED Code ICD Code Onset Dates Problem Status W/U Status Risk Notes Problem Type II diabetes mellitus without complication (594369241) Diabetes mellitus without mention of complication, type II or unspecified type, not stated as uncontrolled (250.00) Active confirmed Major Problem Urinary tract infectious disease (disorder) (51890927) Urinary tract infection, site not specified (599.0) Active confirmed Diag Problem Urinary incontinence (816232526) Unspecified urinary incontinence (788.30) Active confirmed Diag Problem Urinary frequency (961465592) Urinary frequency (788.41) Active confirmed Diag Problem Gynecological examination normal (470846459408953) Routine gynecological examination (V7.31) Active confirmed Diag Plan Of Treatment No Information Insurance Providers Payer Name Payer Address Payer Phone Subscriber Number Group Number Insured Name Patient Relationship to Insured Coverage Start Date Coverage End Date [facility] [address] [place] [id number] DENNISE MENDOZA Self - patient is the insured
--- OUTSIDE RECORDS SUMMARY | 2024-12-14 15:03 | XMS_ITS | Clinical Summary ---
Author Organization [facility] Address [address] [place] [address] Care Team Providers Care Drag Down Name Role Phone Unavailable Primary Care Provider Unavailabl e Social History Tobacco Use Types Packs/Day Years Used Date Smoking Tobacco: Never Assessed Comments Unknown Sex and Gender Information Value Date Recorded Sex Assigned at Not on file Legal Sex Female 5:17 AM EDT Gender Identity Not on file Sexual Orientation Not on file Plan of Treatment Health Maintenance Due Date Last Done Comments DTaP/Tdap/Td (1 - Tdap) 1958 Pneumococcal 50+ years (1 of 1 - PCV) 1990 Zoster (Shingrix) (1 of 2) 1990 Bone Density 2005 RSV (1 - 1-dose 75+ series) 2015 COVID-19 Vaccine ( - 2023-2 5 season) 2024 Influenza (#1) 2024 HPV Vaccine Aged Out No longer eligi ble based on patient's age to complete this topic Hep A Aged Out No longer eligi ble based on patient's age to complete this topic Hep B Aged Out No longer eligi ble based on patient's age to complete this topic Hib Aged Out No longer eligi ble based on patient's age to complete this topic Mammogram/Breast Imaging Discontinued Meningococcal ACWY Aged Out No longer eligible based on patient's age to complete this topic Pap Smear Discontinued Zoster (Zostavax) Discontinued
== END 2024-12-14 14:30 | disposition home or self-care (01) ==
LOC: HO.ACS 13:41
PROVIDERS: PCP Internal Medicine; Visit Provider Internal Medicine
DX: Z79.01 Long term (current) use of 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 (principal)

== ENCOUNTER → 2024-12-14 13:41 | Outpatient (BNVA) | payer MEDICARE, SELFPAY | PROVIDERS: PCP Internal Medicine; Visit Provider Internal Medicine | DX: I48.0 Paroxysmal atrial fibrillation (principal); Z79.01 Long term (current) use of 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; Z51.81 Encounter for therapeutic drug level monitoring | CPT/HCPCS: 85610; 99211 ==

== ENCOUNTER 2024-12-21 13:40 | Outpatient (AMB) | payer MEDICARE, SELFPAY ==
--- OUTSIDE RECORDS SUMMARY | 2024-12-21 14:01 | XMS_ITS | Clinical Summary ---
Author Organization [facility] Address [address] [place] [address] Care Team Providers Care Optical Engineering Technician Name Role Phone Unavailable Primary Care Provider [...]
--- OUTSIDE RECORDS SUMMARY | 2024-12-21 14:01 | XMS_ITS | Patient Health Record ---
Author Organization [facility] Address [address] [place] [address] Support Name Relationship Address Phone DENNISE MENDOZA Guarantor Unknown [phone] Reason For Referral No Information Medications Medication SIG (Take, Route, Frequency, Duration) Notes Start Date End Date Status Atenolol 100MG 1 ORAL DAILY for -3 [facility] 02/02/2012 Active Triamcinolone Acetonide 0.1% 1 External twice daily for -3 [facility] 04/17/2014 Active Aspirin EC 81MG 1 ORAL daily for -3 [facility] 02/02/2012 Active Simvastatin 80MG 1 ORAL daily for -3 [facility] 02/02/2012 Active Plavix 75MG 1 ORAL daily for -3 [facility] 02/02/2012 Active metFORMIN HCl 500MG 1 ORAL four times daily for -3 [facility] 02/02/2012 Active Lisinopril 10MG 1 ORAL daily for -3 [facility] 02/02/2012 Active hydroCHLOROthiazide 25mg 1 ORAL daily for -3 [facility] 02/01 Active Fluconazole 150MG 1 ORAL once for -3 [facility] 05/22/2014 Active Detrol LA 4MG 1 ORAL at bedtime fo r - [facility] 05/22/2014 Active Problems Problem Type SNOMED Code ICD Code Onset Dates Problem Status W/U Status Risk Notes Problem Type II diabetes mellitus without complication (531738398) Diabetes mellitus without mention of complication, type II or unspecified type, not stated as uncontrolled (250.00) Active confirmed Major Problem Urinary tract infectious disease (disorder) (46626964) Urinary tract infection, site not specified (599.0) Active confirmed Diag Problem Urinary incontinence (137700925) Unspecified urinary incontinence (788.30) Active confirmed Diag Problem Urinary frequency (384592803) Urinary frequency (788.41) Active confirmed Diag Problem Gynecological examination normal (848100996826723) Routine gynecological examination (V7.31) Active confirmed Diag Plan Of Treatment No Information Insurance Providers Payer Name Payer Address Payer Phone Subscriber Number Group Number Insured Name Patient Relationship to Insured Coverage Start Date Coverage End Date [facility] [address] [place] [address] [phone] [id number] DENNISE MENDOZA Self - patient is the insured
--- OUTSIDE RECORDS SUMMARY | 2024-12-21 14:01 | XMS_ITS | Clinical Summary ---
Author Organization [facility] Address [address] [place] [address] Phone Care Team Providers Care Pharmacy Operations Coordinator Name Role Phone Nano Delaney MD Primary Care Provider [phone] Allergies No known active allergies Medications amLODIPine [...] patient's age to complete this topic Insurance [facility] MEDICARE [facility] MEDICARE Care Teams Pharmacy Operations Coordinator Relationship Specialty Start Date End Date Nano Delaney MD [address] [place] [address] PCP - General 11/12/20
--- NOTE | 2024-12-21 14:31 | MHC.OFFVISCO ---
Intake Intake Visit Reasons: Anticoagulation Allergies No Known Allergies [No Known Allergies*] Allergy (Verified 12/21/24 13:51) Medication List - Last Reconciled 12/21/24 by Olga Millan RN amlodipine 5 mg PO DAILY amoxicillin-pot clavulanate 875-125 mg 1 tab PO BID 14 days ascorbic acid (vitamin C) 1 g PO DAILY aspirin 81 mg PO DAILY atorvastatin 10 mg PO BEDTIME clopidogrel 75 mg PO DAILY colchicine 0.6 mg PO QID empagliflozin (Jardiance) 10 mg PO DAILY ertapenem 0.5 grams IV DAILY furosemide 20 mg PO BID insulin aspart U-100 See Protocol sliding scale doses subcut QIDACHS insulin glargine (Lantus U-100 Insulin) 25 units (0.25 mL) subcut BEDTIME [interdry As directed. Apply interdry to abdominal and inguinal folds. ] ketoconazole 2% appl topical BID ketorolac 0.5% drps ophthalmic (eye) lancets (FreeStyle Lancets) As directed latanoprost 0.005% 1 drp ophthalmic-Right BEDTIME levofloxacin 500 mg PO DAILY 7 days levothyroxine 25 mcg PO DAILY@0600 melatonin 10 mg PO BEDTIME PRN methenamine hippurate 1 g PO DAILY 90 days metoprolol succinate ER 200 mg PO DAILY mirabegron ER (Myrbetriq) 25 mg PO DAILY 30 days multivitamin (One Daily Multivitamin tablet) 1 tab PO DAILY nystatin 1 appl See Protocol topical TID pen needle, diabetic (BD Cathy 2nd Gen Pen Needle) As directed valsartan 20 mg (1/2 x 40 mg) PO BID vitamins A,C,Q-kruk-zrgdxd 2,148 mcg-113 mg-45 mg-17.4mg (PreserVision AREDS) 1 tab PO BIDWM warfarin See Protocol 2 mg orally 1MG X 5 DAYS/ 2MG X 2 DAYS; Nursing Note INR REMAINS VERY LOW AT 1.3 TODAY. PT.AND DAUGHTER LIZBETH DENY ANY MISSED DOSES. PT. HAS HAD NO DIETARY OR MEDICATION CHANGES. NO CP,SOB OR SX OF BLEEDING. BOOST TO 3MGM TODAY, 2MGM 2 DAYS THEN INCREASE WEEKLY DOSE AND FOLLOW-UP IN 1 WEEK NO GREENS IN MEANTIME. WILL INCREASE REDS THIS WEEK. NO ANSWER AT PCP OFFICE. MESSAGE LEFT ON VOICE MAIL WITH INR AND PLAN OF CARE AND FOR CALL BACK TO [facility] TODAY WITH ANY FURTHER DIRECTION. 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
[2024-12-21 15:59] LABS: Prothrombin Time Whole Bld POC 15.4 sec (11.1-13.5); ~PT, ~INR - Anti Coag Clinic 1.3 (0.9-1.1)
== END 2024-12-21 15:51 | disposition home or self-care (01) ==
LOC: HO.ACS 13:40
PROVIDERS: PCP Internal Medicine; Visit Provider Internal Medicine
DX: Z79.01 Long term (current) use of 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 (principal)

== ENCOUNTER → 2024-12-21 13:40 | Outpatient (BNVA) | payer MEDICARE, SELFPAY | PROVIDERS: PCP Internal Medicine; Visit Provider Internal Medicine | DX: I48.0 Paroxysmal atrial fibrillation (principal); Z79.01 Long term (current) use of 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; Z51.81 Encounter for therapeutic drug level monitoring | CPT/HCPCS: 85610; 99211 ==

== ENCOUNTER → 2024-12-26 13:45 | Outpatient (BNVA) | payer MEDICARE, SELFPAY | PROVIDERS: PCP Internal Medicine; Visit Provider Urology | DX: Z93.59 Other cystostomy status (principal) | CPT/HCPCS: 51705 ==

== ENCOUNTER 2024-12-28 13:49 | Outpatient (AMB) | payer MEDICARE, SELFPAY ==
[2024-12-28 13:56] LABS: Prothrombin Time Whole Bld POC 19.5 sec (11.1-13.5); ~PT, ~INR - Anti Coag Clinic 1.6 (0.9-1.1)
--- NOTE | 2024-12-28 14:08 | MHC.OFFVISCO ---
Intake Intake Visit Reasons: Anticoagulation Allergies No Known Allergies [No Known Allergies*] Allergy (Verified 12/28/24 13:51) Medication List - Last Reconciled 12/28/24 by Olga Millan RN amlodipine 5 mg PO DAILY amoxicillin-pot clavulanate 875-125 mg 1 tab PO BID 14 days ascorbic acid (vitamin C) 1 g PO DAILY aspirin 81 mg PO DAILY atorvastatin 10 mg PO BEDTIME clopidogrel 75 mg PO DAILY colchicine 0.6 mg PO QID empagliflozin (Jardiance) 10 mg PO DAILY ertapenem 0.5 grams IV DAILY furosemide 20 mg PO BID insulin aspart U-100 See Protocol sliding scale doses subcut QIDACHS insulin glargine (Lantus U-100 Insulin) 25 units (0.25 mL) subcut BEDTIME [interdry As directed. Apply interdry to abdominal and inguinal folds. ] ketoconazole 2% appl topical BID ketorolac 0.5% drps ophthalmic (eye) lancets (FreeStyle Lancets) As directed latanoprost 0.005% 1 drp ophthalmic-Right BEDTIME levofloxacin 500 mg PO DAILY 7 days levothyroxine 25 mcg PO DAILY@0600 melatonin 10 mg PO BEDTIME PRN methenamine hippurate 1 g PO DAILY 90 days metoprolol succinate ER 200 mg PO DAILY mirabegron ER (Myrbetriq) 25 mg PO DAILY 30 days multivitamin (One Daily Multivitamin tablet) 1 tab PO DAILY nystatin 1 appl See Protocol topical TID pen needle, diabetic (BD Cathy 2nd Gen Pen Needle) As directed valsartan 20 mg (1/2 x 40 mg) PO BID vitamins A,C,G-viie-ejcbvd 2,148 mcg-113 mg-45 mg-17.4mg (PreserVision AREDS) 1 tab PO BIDWM warfarin See Protocol 2 mg orally 1MG X 5 DAYS/ 2MG X 2 DAYS; Nursing Note NO CP,SOB,DIET/MED CHANGES,FALLS OR SX OF BLEEDING. BOOST TODAY TOMORROW THEN 2MGM X3 1MGM X4 AND RECHECK IN 1 WEEK NO GREENS 2-3 DAYS GOOD UNDERSTANDING OF DOSING INSTR. 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
--- OUTSIDE RECORDS SUMMARY | 2024-12-28 16:58 | XMS_ITS | Patient Health Record ---
Author Organization [employer] [facility] Address [address] [place] [address] Support Name Relationship Address Phone DENNISE MENDOZA Guarantor Unknown [phone] Reason For Referral No Information Medications Medication SIG (Take, Route, Frequency, Duration) Notes Start Date End Date Status Atenolol 100MG 1 ORAL DAILY for -3 [facility] 02/02/2012 Active Triamcinolone Acetonide 0.1% 1 External twice daily for -3 [facility] 04/17/2014 Active Aspirin EC 81MG 1 ORAL daily for -3 [facility] 02/02/2012 Active Simvastatin 80MG 1 ORAL daily for -3 [facility] 02/02/2012 Active Plavix 75MG 1 ORAL daily for -3 [facility] 02/02/2012 Active metFORMIN HCl 500MG 1 ORAL four times daily for -3 [facility] 02/02/2012 Active Lisinopril 10MG 1 ORAL daily for -3 [facility] 02/02/2012 Active hydroCHLOROthiazide 25mg 1 ORAL daily for -3 [facility] 02/01 Active Fluconazole 150MG 1 ORAL once for -3 [facility] 05/22/2014 Active Detrol LA 4MG 1 ORAL at bedtime fo r -3 [facility] 05/22/2014 Active Problems Problem Type SNOMED Code ICD Code Onset Dates Problem Status W/U Status Risk Notes Problem Type II diabetes mellitus without complication (404765192) Diabetes mellitus without mention of complication, type II or unspecified type, not stated as uncontrolled (250.00) Active confirmed Major Problem Urinary tract infectious disease (disorder) (27615456) Urinary tract infection, site not specified (599.0) Active confirmed Diag Problem Urinary incontinence (468128414) Unspecified urinary incontinence (788.30) Active confirmed Diag Problem Urinary frequency (016432649) Urinary frequency (788.41) Active confirmed Diag Problem Gynecological examination normal (809483461735252) Routine gynecological examination (V7.31) Active confirmed Diag Plan Of Treatment No Information Insurance Providers Payer Name Payer Address Payer Phone Subscriber Number Group Number Insured Name Patient Relationship to Insured Coverage Start Date Coverage End Date [facility] [address] [place] [address] [phone] [id number] DENNISE MENDOZA Self - patient is the insured
--- OUTSIDE RECORDS SUMMARY | 2024-12-28 16:58 | XMS_ITS | Clinical Summary ---
Author Organization [facility] Address [address] [place] [address] Phone Care Team Providers Care Band Edger Name Role Phone Nano Delaney MD Primary [...] patient's age to complete this topic Insurance [facility] MEDICARE [facility] MEDICARE Care Teams Band Edger Relationship Specialty Start Date End Date Nano Delaney MD [address] [place] [address] PCP - General 11/12/20
--- OUTSIDE RECORDS SUMMARY | 2024-12-28 16:58 | XMS_ITS | Clinical Summary ---
Author Organization [facility] Address [address] [place] [address] Care Team Providers Care Data Processing Manager Name Role Phone Unavailable Primary Care Provider [...]
== END 2024-12-28 14:14 | disposition home or self-care (01) ==
LOC: HO.ACS 13:49
PROVIDERS: PCP Internal Medicine; Visit Provider Internal Medicine
DX: Z79.01 Long term (current) use of 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 (principal)

== ENCOUNTER → 2024-12-28 13:49 | Outpatient (BNVA) | payer MEDICARE, SELFPAY | PROVIDERS: PCP Internal Medicine; Visit Provider Internal Medicine | DX: I48.0 Paroxysmal atrial fibrillation (principal); Z79.01 Long term (current) use of 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; Z51.81 Encounter for therapeutic drug level monitoring | CPT/HCPCS: 85610; 99211 ==

== ENCOUNTER 2025-01-06 13:44 | Outpatient (AMB) | payer MEDICARE, SELFPAY ==
[2025-01-06 13:57] LABS: ~PT, ~INR - Anti Coag Clinic 2.1 (0.9-1.1)
--- NOTE | 2025-01-06 14:05 | MHC.OFFVISCO ---
Intake Intake Visit Reasons: Anticoagulation Allergies No Known Allergies [No Known Allergies*] Allergy (Verified 01/06/25 13:53) Medication List - Last Reconciled 01/06/25 by Deja Templeton RN amlodipine 5 mg PO DAILY amoxicillin-pot clavulanate 875-125 mg 1 tab PO BID 14 days ascorbic acid (vitamin C) 1 g PO DAILY aspirin 81 mg PO DAILY atorvastatin 10 mg PO BEDTIME clopidogrel 75 mg PO DAILY colchicine 0.6 mg PO QID empagliflozin (Jardiance) 10 mg PO DAILY ertapenem 0.5 grams IV DAILY furosemide 20 mg PO BID insulin aspart U-100 See Protocol sliding scale doses subcut QIDACHS insulin glargine (Lantus U-100 Insulin) 25 units (0.25 mL) subcut BEDTIME [interdry As directed. Apply interdry to abdominal and inguinal folds. ] ketoconazole 2% appl topical BID ketorolac 0.5% drps ophthalmic (eye) lancets (FreeStyle Lancets) As directed latanoprost 0.005% 1 drp ophthalmic-Right BEDTIME levofloxacin 500 mg PO DAILY 7 days levothyroxine 25 mcg PO DAILY@0600 melatonin 10 mg PO BEDTIME PRN methenamine hippurate 1 g PO DAILY 90 days metoprolol succinate ER 200 mg PO DAILY mirabegron ER (Myrbetriq) 25 mg PO DAILY 30 days multivitamin (One Daily Multivitamin tablet) 1 tab PO DAILY nystatin 1 appl See Protocol topical TID pen needle, diabetic (BD Cathy 2nd Gen Pen Needle) As directed valsartan 20 mg (1/2 x 40 mg) PO BID vitamins A,C,U-fkin-ywgzfd 2,148 mcg-113 mg-45 mg-17.4mg (PreserVision AREDS) 1 tab PO BIDWM warfarin See Protocol 2 mg orally 1MG X 5 DAYS/ 2MG X 2 DAYS; Nursing Note Pt to [facility] in [facility] accompanied by daughter INR: 2.1 in therapeutic range of 2-3 Medications and supplements reviewed No changes in health, diet, medications, or supplements, Denies any signs and symptoms of bleeding or bruising or clotting. Bleeding, bruising, clotting discussed Nutritional guidance given Dose: 2mg X 4 days and 1mg X 3 days (Sun, Tues & Thurs) F/U INR: 2 weeks Patient verbalizes understanding of instructions given Anti-Coag Initial Assessment Social Hx Patient Tobacco Use Status: Never used Tobacco alcohol intake: never Alcohol intake frequency: does not drink Coding Level of Care Code Est Patient Level 1 Diagnoses Current use of anticoagulant therapy Z79.01 Results AMB INR Fingerstick AMB INR Fingerstick 2.1 Last Edit by Deja Templeton RN on 01/06/25 13:58 interface delay Assessment & Plan Assessment & Plan (1) Current use of anticoagulant therapy: Code(s): Z79.01 - [facility] (current) use of 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
--- OUTSIDE RECORDS SUMMARY | 2025-01-06 15:18 | XMS_ITS | Patient Health Record ---
Author Organization [employer] [facility] Address [address] [place] [address] Support Name Relationship Address Phone DENNISE MENDOZA Guarantor Unknown [phone] Reason For Referral No Information Medications Medication SIG (Take, Route, Frequency, Duration) Notes Start Date End Date Status Atenolol 100MG 1 ORAL DAILY for -3 [facility] 02/02/2012 Active Triamcinolone Acetonide 0.1% 1 External twice daily for -3 [facility] 04/17/2014 Active Aspirin EC 81MG 1 ORAL daily for -3 [facility] 02/02/2012 Active Simvastatin 80MG 1 ORAL daily for -3 [facility] 02/02/2012 Active Plavix 75MG 1 ORAL daily for -3 [facility] 02/02/2012 Active metFORMIN HCl 500MG 1 ORAL four times daily for -3 [facility] 02/02/2012 Active Lisinopril 10MG 1 ORAL daily for -3 [facility] 02/02/2012 Active hydroCHLOROthiazide 25mg 1 ORAL daily for -3 [facility] 02/01 Active Fluconazole 150MG 1 ORAL once for -3 [facility] 05/22/2014 Active Detrol LA 4MG 1 ORAL at bedtime fo r -3 [facility] 05/22/2014 Active Problems Problem Type SNOMED Code ICD Code Onset Dates Problem Status W/U Status Risk Notes Problem Type II diabetes mellitus without complication (086916421) Diabetes mellitus without mention of complication, type II or unspecified type, not stated as uncontrolled (250.00) Active confirmed Major Problem Urinary tract infectious disease (disorder) (14050042) Urinary tract infection, site not specified (599.0) Active confirmed Diag Problem Urinary incontinence (618455777) Unspecified urinary incontinence (788.30) Active confirmed Diag Problem Urinary frequency (516958635) Urinary frequency (788.41) Active confirmed Diag Problem Gynecological examination normal (899914381783844) Routine gynecological examination (V7.31) Active confirmed Diag Plan Of Treatment No Information Insurance Providers Payer Name Payer Address Payer Phone Subscriber Number Group Number Insured Name Patient Relationship to Insured Coverage Start Date Coverage End Date [facility] [address] [place] [address] [id number] DENNISE MENDOZA Self - patient is the insured
--- OUTSIDE RECORDS SUMMARY | 2025-01-06 15:18 | XMS_ITS | Clinical Summary ---
Author Organization [facility] Address [address] [place] [address] Phone Care Team Providers Care Accountant Controller Name Role Phone Nano Delaney MD Primary [...] patient's age to complete this topic Insurance [facility] MEDICARE [facility] MEDICARE Care Teams Accountant Controller Relationship Specialty Start Date End Date Nano Delaney MD [address] [place] [address] PCP - General 11/12/20
--- OUTSIDE RECORDS SUMMARY | 2025-01-06 15:19 | XMS_ITS | Clinical Summary ---
Author Organization [facility] Address [address] [place] [address] Care Team Providers Care Rotoprinter Name Role Phone Unavailable Primary Care Provider [...]
--- OUTSIDE RECORDS SUMMARY | 2025-01-06 15:19 | XMS_ITS ---
Author Organization [facility] Care Team Providers Care Talent Development Director Name Role Phone Ivett Winter Unavailable Unavailable Nidia Gordon Unavailable Unavailable Kim Messer Unavailable Unavailable Tati Hobbs Unavailable Unavailable Aaron Oshea Unavailable Unavailable Blanca Galeano Unavailable Unavailable Allergies and adverse reactions No Known Allergies Care Team Name Role Address Phone Organization Dates Kim Messer PCP [address], [place], [address], [place] (Office): [facility] 07/11/2023 - 08/01/2023 Ivett Winter Attending Physician [address] [place], [address], [place] (Office): [facility] 07/11/2023 - 08/01/2023 Nidia Gordon Attending Physician [address], [place], [address], [place] (Office): [facility] 07/11/2023 - 08/01/2023 Tati Hobbs Attending Physician [address], [place], [address], [facility] (Office): [facility] 07/11/2023 - 08/01/2023 Aaron Oshea Attending Physician [address] [place], [address], [facility] (Office): [facility] 07/11/2023 - 08/01/2023 Blanca Galeano Attending Physician [address] [place], [address], [place] (Office): [facility] 07/11/2023 - 08/01/2023 Immunizations Immunization Status Vaccine Details Vaccine Code CodeSystem Date Notes TB 1 Step Mantoux (PPD) completed tuberculin skin test; unspecified formulation lotNumber: [id number] expiry: 09/01/2026 Mfg: [employer] Given 0.1 ml Right Forearm intradermally 98 CVX created date: 07/22/2023 consent date: 07/22/2023 administer ed date: 07/22/2023 Educated by ching on 07/22/2023 SARS-COV-2 (COVID-19) cancelled SARS-COV-2 (COVID-19) vaccine, D614, prefusion spike recombinant protein subunit (CoV2 preS dTM), AS03 adjuvant added, preservative free, 5mcg/0.5mL dose 225 CVX created date: 09/04/2022 consent date: 09/04/2022 Mental Status Section Date Assessment Total Score Description 08/01/2023 BIMS 15 cognitively int act CAM 0 No delirium ind icated PHQ-9 00 07/16/2023 BIMS 15 cognitively int act CAM 0 No delirium ind icated PHQ-9 00 Problems Problem # Description Date of onset Resolved Date Code CodeSystem Concern Status 1 ACUTE KIDNEY FAILURE, UNSPECIFIED 07/11/[address] active 2 AFTERCARE FOLLOWING JOINT REPLACEMENT SURGERY 07/11/[address] active 3 CHRONIC DIASTOLIC (CONGESTIVE) HEART FAILURE 07/11/[address] active 4 DIFFICULTY IN WALKING, NOT ELSEWHERE CLASSIFIED 07/11/[address] active 5 HYPERLIPIDEMIA, UNSPECIFIED 07/11/[address] active 6 MUSCLE WEAKNESS (GENERALIZED) 07/11/[address] active 7 PAIN IN RIGHT HIP 07/11/[address] active 8 PERSONAL HISTORY OF TRANSIENT ISCHEMIC ATTACK (TIA), AND CEREBRAL INFARCTION WITHOUT RESIDUAL DEFICITS 07/11/[address] active 9 PRESENCE OF ARTIFICIAL HIP JOINT, BILATERAL 07/11/[address] active 10 PRESENCE OF RIGHT ARTIFICIAL HIP JOINT 07/11/[address] active 11 UNSTEADINESS ON FEET 07/11/[address] active 12 ATHEROSCLEROTIC HEART DISEASE OF [place] CORONARY ARTERY WITHOUT ANGINA PECTORIS 05/12/[address] active 13 DIFFICULTY IN WALKING, NOT ELSEWHERE CLASSIFIED 05/12/20 23 07/07/[address] completed 14 ENCOUNTER FOR ATTENTION TO OTHER ARTIFICIAL OPENINGS OF URINARY TRACT 05/12/20 23 07/10/[address] completed 15 MUSCLE WEAKNESS (GENERALIZED) 05/12/20 23 07/07/[address] completed 16 SEPSIS, UNSPECIFIED ORGANISM 05/12/20 23 07/09/[address] completed 17 UNSTEADINESS ON FEET 05/12/20 23 07/07/[address] completed 18 URINARY TRACT INFECTION, SITE NOT SPECIFIED 05/12/20 23 07/06/[address] completed 19 CHRONIC KIDNEY DISEASE, STAGE 3 UNSPECIFIED 08/26/[address] active 20 DIFFICULTY IN WALKING, NOT ELSEWHERE CLASSIFIED 08/26/20 22 05/11/[address] completed 21 ESSENTIAL (PRIMARY) HYPERTENSION 08/26/[address] active 22 HYPOTHYROIDISM, UNSPECIFIED 08/26/[address] active 23 MUSCLE WEAKNESS (GENERALIZED) 08/26/20 22 05/11/[address] completed 24 NEUROMUSCULAR DYSFUNCTION OF [place]AD[place], UNSPECIFIED 08/26/[address] active 25 NONDISPLACED FRACTURE OF LATERAL MALLEOLUS OF RIGHT FIBULA, SUBSEQUENT ENCOUNTER FOR CLOSED FRACTURE WITH ROUTINE HEALING 08/26/20 22 05/11/[address] completed 26 PAROXYSMAL ATRIAL FIBRILLATION 08/26/[address] active 27 PERSONAL HISTORY OF COVID-19 08/26/[address] active 28 TYPE 2 DIABETES MELLITUS WITHOUT COMPLICATIONS 08/26/[address] active 29 UNILATERAL PRIMARY OSTEOARTHRITIS, RIGHT HIP 08/26/[address] active 30 UNSPECIFIED FALL, SEQUELA 08/26/20 22 05/11/[address] completed 31 UNSPECIFIED SYSTOLIC (CONGESTIVE) HEART FAILURE 08/26/[address] active 32 UNSTEADINESS ON FEET 08/26/2005/11/[address] completed 33 URINARY TRACT INFECTION, SITE NOT SPECIFIED 08/26/2005/11/[address] completed Reason for Referral No Reasons for Referral Entered Social History Social History Observation Description Start Date End Date Code Code System Current Smoking Status Tobacco smoking consumption unknown 713577156 SNOMED CT Sex Assigned At Female 1940 56012-4 [facility] Vital Signs Code Code System Vitals Name Values and Units Timing Information 33243-7 [facility] Pain Level Value=0.0 08/01/2023 2339-0 [facility] Blood Sugar Llxhs=628.0 Units=mg/dL 08/01/2023 9279-1 [facility] Respiratory Rate Value=18.0 Units=/m in 08/01/2023 8462-4 [facility] Blood Pressure-Diastolic Value=73 Un its=mmHg 08/01/2023 8480-6 [facility] Blood Pressure-Systolic Iqqox=247 Un its=mmHg 08/01/2023 8310-5 [facility] Body Temperature Value=96.9 Units=?? F 08/01/2023 8867-4 [facility] Heart rate Value=84.0 Units=/min 37378-3 [facility] O2 % dC Oximetry Value=96.0 Units= % 08/01/2023 55530-0 [facility] Weight Qzfvo=913.0 Units=Lbs 8302-2 [facility] Height Value=65.0 Units=Inches 07/13/2023
== END 2025-01-06 14:07 | disposition home or self-care (01) ==
LOC: HO.ACS 13:44
PROVIDERS: PCP Internal Medicine; Visit Provider Internal Medicine
DX: Z79.01 Long term (current) use of 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 (principal)

== ENCOUNTER → 2025-01-06 13:44 | Outpatient (BNVA) | payer MEDICARE, SELFPAY | PROVIDERS: PCP Internal Medicine; Visit Provider Internal Medicine | DX: I48.0 Paroxysmal atrial fibrillation (principal); Z79.01 Long term (current) use of 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; Z51.81 Encounter for therapeutic drug level monitoring | CPT/HCPCS: 85610; 99211 ==

== ENCOUNTER → 2025-01-09 14:13 | Outpatient (BNVA) | payer MEDICARE, SELFPAY | PROVIDERS: PCP Internal Medicine; Visit Provider Urology | DX: Z46.6 Encounter for fitting and adjustment of urinary device (principal); Z93.50 Unspecified cystostomy status | CPT/HCPCS: 51705 ==

== ENCOUNTER 2025-01-12 09:07 | Outpatient (REF) | payer MEDICARE, SELFPAY ==
--- OUTSIDE RECORDS SUMMARY | 2025-01-12 10:29 | XMS_ITS | Patient Health Record ---
Author Organization [employer] [facility] Address [address] [place] [address] Support Name Relationship Address Phone DENNISE MENDOZA Guarantor Unknown [phone] Reason For Referral No Information Medications Medication SIG (Take, Route, Frequency, Duration) Notes Start Date End Date Status Atenolol 100MG 1 ORAL DAILY for -3 [facility] 02/02/2012 Active Triamcinolone Acetonide 0.1% 1 External twice daily for -3 [facility] 04/17/2014 Active Aspirin EC 81MG 1 ORAL daily for -3 [facility] 02/02/2012 Active Simvastatin 80MG 1 ORAL daily for -3 [facility] 02/02/2012 Active Plavix 75MG 1 ORAL daily for -3 [facility] 02/02/2012 Active metFORMIN HCl 500MG 1 ORAL four times daily for -3 [facility] 02/02/2012 Active Lisinopril 10MG 1 ORAL daily for -3 [facility] 02/02/2012 Active hydroCHLOROthiazide 25mg 1 ORAL daily for -3 [facility] 02/01 Active Fluconazole 150MG 1 ORAL once for -3 [facility] 05/22/2014 Active Detrol LA 4MG 1 ORAL at bedtime fo r -3 [facility] 05/22/2014 Active Problems Problem Type SNOMED Code ICD Code Onset Dates Problem Status W/U Status Risk Notes Problem Type II diabetes mellitus without complication (074045167) Diabetes mellitus without mention of complication, type II or unspecified type, not stated as uncontrolled (250.00) Active confirmed Major Problem Urinary tract infectious disease (disorder) (18044391) Urinary tract infection, site not specified (599.0) Active confirmed Diag Problem Urinary incontinence (076389052) Unspecified urinary incontinence (788.30) Active confirmed Diag Problem Urinary frequency (026418472) Urinary frequency (788.41) Active confirmed Diag Problem Gynecological examination normal (118907759060234) Routine gynecological examination (V7.31) Active confirmed Diag Plan Of Treatment No Information Insurance Providers Payer Name Payer Address Payer Phone Subscriber Number Group Number Insured Name Patient Relationship to Insured Coverage Start Date Coverage End Date [facility] [address] [place] [id number] DENNISE MENDOZA Self - patient is the insured
--- OUTSIDE RECORDS SUMMARY | 2025-01-12 10:29 | XMS_ITS | Clinical Summary ---
Author Organization [facility] Address [address] [place] [address] Phone Care Team Providers Care Hay Buckler Name Role Phone Nano Delaney MD Primary Care Provider [phone] Allergies No known active allergies Medications amLODIPine [...] patient's age to complete this topic Insurance [employer] Care Teams Hay Buckler Relationship Specialty Start Date End Date Nano Delaney MD [address] [place] [address] PCP - General 11/12/20
--- OUTSIDE RECORDS SUMMARY | 2025-01-12 10:29 | XMS_ITS | Clinical Summary ---
Author Organization [facility] Address [address] [place] [address] Care Team Providers Care Propellant Charge Zone Assembler Name Role Phone Unavailable Primary Care Provider [...]
--- OUTSIDE RECORDS SUMMARY | 2025-01-12 10:29 | XMS_ITS ---
Author Organization [facility] Care Team Providers Care District Medical Examiner Name Role Phone Ivett Winter Unavailable Unavailable Nidia Gordon Unavailable Unavailable Kim Messer Unavailable Unavailable Tati Hobbs Unavailable Unavailable Aaron Oshea Unavailable Unavailable Blanca Galeano Unavailable Unavailable Allergies and adverse reactions No Known Allergies Care Team Name Role Address Phone Organization Dates Kmi Messer PCP [address] [facility] [address], [place], [address], [place] (Office): [facility] 07/11/2023 - 08/01/2023 Ivett Winter Attending Physician [address] [place], [address], [place] (Office): [facility] 07/11/2023 - 08/01/2023 Nidia Gordon Attending Physician [address] [facility] [address], [place], [address], [place] (Office): [facility] 07/11/2023 - 08/01/2023 Tati Hobbs Attending Physician [address], [place], [address], [facility] (Office): [facility] 07/11/2023 - 08/01/2023 Aaron Oshea Attending Physician [address] [place], [address], [facility] (Office): [facility] 07/11/2023 - 08/01/2023 Blanca Galeano Attending Physician [address] [place], [address], [place] (Office): [facility] 07/11/2023 - 08/01/2023 Immunizations Immunization Status Vaccine Details Vaccine Code CodeSystem Date Notes TB 1 Step Mantoux (PPD) completed tuberculin skin test; unspecified formulation lotNumber: [id number] expiry: 09/01/2026 Mfg: [employer] Given [...] Status 1 ACUTE KIDNEY FAILURE, UNSPECIFIED 07/11/[address] active 2 AFTERCARE FOLLOWING JOINT REPLACEMENT SURGERY 07/11/[address] active 3 CHRONIC DIASTOLIC (CONGESTIVE) HEART FAILURE 07/11/[address] active 4 DIFFICULTY IN WALKING, NOT ELSEWHERE CLASSIFIED 07/11/[address] active 5 HYPERLIPIDEMIA, UNSPECIFIED 07/11/[address] active 6 MUSCLE WEAKNESS (GENERALIZED) 07/11/[address] active 7 PAIN IN RIGHT HIP 07/11/[address] active 8 PERSONAL HISTORY OF TRANSIENT ISCHEMIC ATTACK (TIA), AND CEREBRAL INFARCTION WITHOUT RESIDUAL DEFICITS 07/11/[address] active 9 PRESENCE OF ARTIFICIAL HIP JOINT, BILATERAL 07/11/[address] active 10 PRESENCE OF RIGHT ARTIFICIAL HIP JOINT 07/11/[address] active 11 UNSTEADINESS ON FEET 07/11/[address] active 12 ATHEROSCLEROTIC HEART DISEASE OF [place] CORONARY ARTERY WITHOUT ANGINA PECTORIS 05/12/[id number] active 13 DIFFICULTY IN WALKING, NOT ELSEWHERE CLASSIFIED 05/12/20 23 07/07/[address] completed 14 ENCOUNTER FOR ATTENTION TO OTHER ARTIFICIAL OPENINGS OF URINARY TRACT 05/12/20 23 07/10/[address] completed 15 MUSCLE WEAKNESS (GENERALIZED) 05/12/20 23 07/07/[address] completed 16 SEPSIS, UNSPECIFIED ORGANISM 05/12/20 23 07/09/[address] completed 17 UNSTEADINESS ON FEET 05/12/20 23 07/07/[address] completed 18 URINARY TRACT INFECTION, SITE NOT SPECIFIED 05/12/20 23 07/06/[address] completed 19 CHRONIC KIDNEY DISEASE, STAGE 3 UNSPECIFIED 08/26/[address] active 20 DIFFICULTY IN WALKING, NOT ELSEWHERE CLASSIFIED 08/26/20 22 05/11/[address] completed 21 ESSENTIAL (PRIMARY) HYPERTENSION 08/26/[address] active 22 HYPOTHYROIDISM, UNSPECIFIED 08/26/[address] active 23 MUSCLE WEAKNESS (GENERALIZED) 08/26/20 22 05/11/[address] completed 24 NEUROMUSCULAR DYSFUNCTION OF BLAD[place], UNSPECIFIED 08/26/[address] active 25 NONDISPLACED FRACTURE OF LATERAL MALLEOLUS OF RIGHT FIBULA, SUBSEQUENT ENCOUNTER FOR CLOSED FRACTURE WITH ROUTINE HEALING 08/26/20 22 05/11/[address] completed 26 PAROXYSMAL ATRIAL FIBRILLATION 08/26/[address] active 27 PERSONAL HISTORY OF COVID-19 08/26/[address] active 28 TYPE 2 DIABETES MELLITUS WITHOUT COMPLICATIONS 08/26/[address] active 29 UNILATERAL PRIMARY OSTEOARTHRITIS, RIGHT HIP 08/26/[address] active 30 UNSPECIFIED FALL, SEQUELA 08/26/20 22 05/11/[address] completed 31 UNSPECIFIED SYSTOLIC (CONGESTIVE) HEART FAILURE 08/26/[address] active 32 UNSTEADINESS ON FEET 08/26/2005/11/[address] completed 33 URINARY TRACT INFECTION, SITE NOT SPECIFIED 08/26/2005/11/[address] completed Reason for Referral No Reasons for Referral Entered Social History Social History Observation Description Start Date End Date Code Code System Current Smoking Status Tobacco smoking consumption unknown 422044470 SNOMED CT Sex Assigned At Female 1940 [address]-[address] [facility] Vital Signs Code Code System Vitals Name Values and Units Timing Information 50184-[address] [facility] Pain Level Value=0.0 08/01/2023 2339-[address] [facility] Blood Sugar Vacyl=807.0 Units=mg/dL 08/01/2023 9279-[address] [facility] Respiratory Rate Value=18.0 Units=/m in 08/01/2023 8462-[address] [facility] Blood Pressure-Diastolic Value=73 Un its=mmHg 08/01/2023 8480-[address] [facility] Blood Pressure-Systolic Omjfj=549 Un its=mmHg 08/01/2023 8310-[address] [facility] Body Temperature Value=96.9 Units=?? F 08/01/2023 8867-[address] [facility] Heart rate Value=84.0 Units=/min 41943-[address] [facility] O2 % dC Oximetry Value=96.0 Units= % 08/01/2023 01883-[address] [facility] Weight Ijjil=944.0 Units=Lbs 8302-[address] [facility] Height Value=65.0 Units=Inches 07/13/2023
[2025-01-12 11:39] LABS: Appearance Urine Turbid; Color Urine Yellow; Glucose Urine UA 250 mg/dL (Negative); Leukocyte Esterase Urine Large (3+) (Negative); Nitrite Urine Positive (Negative); PH 5.5 (5.0-9.0); Specific Gravity - Urine <= 1.005 (1.005-1.025); UMIC TRIGGER UA YES; Urine Blood Large (3+) (Negative); Urine Ketones Negative (Negative); Urine Protein 100 (2+) mg/dL (Neg-Trace)
[2025-01-12 11:48] LABS: Bacteria Urine 4+ (None Seen); RBC Urine 0-2 /HPF (0-2); WBC Urine >50 /HPF (0-5)
== END 2025-01-12 09:08 | disposition home or self-care (01) ==
LOC: HO.10HDLNP 09:07
PROVIDERS: Visit Provider Urology
DX: N39.0 Urinary tract infection, site not specified (principal); Z93.59 Other cystostomy status
CPT/HCPCS: 81001; 87086; 87088; 87186

== ENCOUNTER 2025-01-20 13:30 | Outpatient (AMB) | payer MEDICARE, SELFPAY ==
[2025-01-20 13:43] LABS: Prothrombin Time Whole Bld POC 33.2 sec (11.1-13.5); ~PT, ~INR - Anti Coag Clinic 2.8 (0.9-1.1)
--- NOTE | 2025-01-20 13:48 | MHC.OFFVISCO ---
Intake Intake Visit Reasons: Anticoagulation Allergies No Known Allergies [No Known Allergies*] Allergy (Verified 01/20/25 13:34) Medication List - Last Reconciled 01/20/25 by Deja Templeton, LUPE amlodipine 5 mg PO DAILY ascorbic acid (vitamin C) 1 g PO DAILY aspirin 81 mg PO DAILY atorvastatin 10 mg PO BEDTIME clopidogrel 75 mg PO DAILY colchicine 0.6 mg PO QID empagliflozin (Jardiance) 10 mg PO DAILY ertapenem 0.5 grams IV DAILY furosemide 20 mg PO BID insulin aspart U-100 See Protocol sliding scale doses subcut QIDACHS insulin glargine (Lantus U-100 Insulin) 25 units (0.25 mL) subcut BEDTIME [interdry As directed. Apply interdry to abdominal and inguinal folds. ] ketoconazole 2% appl topical BID ketorolac 0.5% drps ophthalmic (eye) lancets (FreeStyle Lancets) As directed latanoprost 0.005% 1 drp ophthalmic-Right BEDTIME levofloxacin 500 mg PO DAILY 7 days levothyroxine 25 mcg PO DAILY@0600 melatonin 10 mg PO BEDTIME PRN methenamine hippurate 1 g PO DAILY 90 days metoprolol succinate ER 200 mg PO DAILY mirabegron ER (Myrbetriq) 25 mg PO DAILY 30 days multivitamin (One Daily Multivitamin tablet) 1 tab PO DAILY nystatin 1 appl See Protocol topical TID pen needle, diabetic (BD Cathy 2nd Gen Pen Needle) As directed sulfamethoxazole-trimethoprim 800-160 mg (Bactrim DS) 1 tab PO BID 7 days valsartan 20 mg (1/2 x 40 mg) PO BID vitamins A,C,D-hwiu-eoqnpn 2,148 mcg-113 mg-45 mg-17.4mg (PreserVision AREDS) 1 tab PO BIDWM warfarin See Protocol 2 mg orally 1MG X 5 DAYS/ 2MG X 2 DAYS; Nursing Note Pt to [facility] in W/C accompanied by daughter INR: 2.8 in therapeutic range of 2-3 Recently INR had been running low or low in range. Pt's daughter states pt has been on Bactrim bid for UTI. Pt has 1 day remaining and did not notify ACS. Medications and supplements reviewed No changes in health, diet, or supplements, Denies any signs and symptoms of bleeding or bruising or clotting. Bleeding, bruising, clotting discussed Nutritional guidance given Dose: 2mg X 4 days and 1mg X 3 days (Sun, Tues & Thurs) F/U INR: 2 weeks Patient verbalizes understanding of instructions given Anti-Coag Initial Assessment Social Hx Patient Tobacco Use Status: Never used Tobacco alcohol intake: never Alcohol intake frequency: does not drink Coding Level of Care Code Est Patient Level 1 Diagnoses Current use of anticoagulant therapy Z79.01 Assessment & Plan Assessment & Plan (1) Current use of anticoagulant therapy: Code(s): Z79.01 - assisted (current) use of 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
--- OUTSIDE RECORDS SUMMARY | 2025-01-20 15:48 | XMS_ITS | Clinical Summary ---
Author Organization [facility] Address [address] [place] [address] Care Team Providers Care Warehouse Picker Name Role Phone Unavailable Primary Care Provider [...]
--- OUTSIDE RECORDS SUMMARY | 2025-01-20 15:48 | XMS_ITS | Clinical Summary ---
Author Organization [facility] Address [address] [place] [address] Phone Care Team Providers Care Civil Preparedness Officer Name Role Phone Nano Delaney MD Primary [...] [facility] MEDICARE Care Teams Civil Preparedness Officer Relationship Specialty Start Date End Date Nano Delaney MD [address] [place] [address] PCP - General 11/12/20
--- OUTSIDE RECORDS SUMMARY | 2025-01-20 15:48 | XMS_ITS ---
Author Organization [facility] Care Team Providers Care Floating Labor Gang Supervisor Name Role Phone Ivett Winter Unavailable Unavailable Nidia Gordon Unavailable Unavailable Kim Messer Unavailable Unavailable Tati Hobbs Unavailable Unavailable Aaron Oshea Unavailable Unavailable Blanca Galeano Unavailable Unavailable Allergies and adverse reactions No Known Allergies Care Team Name Role Address Phone Organization Dates Kim Messer PCP [address] [facility] [address], [place], [address], [place] (Office): [facility] 07/11/2023 - 08/01/2023 Ivett Winter Attending Physician [address] [place], [address], [place] (Office): [facility] 07/11/2023 - 08/01/2023 Nidia Gordon Attending Physician [address] [facility] [address], [place], [address], [place] (Office): [facility] 07/11/2023 - 08/01/2023 Tati Hobbs Attending Physician [address], [place], [address], [facility] (Office): [facility] 07/11/2023 - 08/01/2023 Aaron Oshea Attending Physician [address] [place], [address], [facility] (Office): [facility] 07/11/2023 - 08/01/2023 Blanca Galeano Attending Physician [address] [place], [address], [place] (Office): [facility] 07/11/2023 - 08/01/2023 Immunizations Immunization Status Vaccine Details Vaccine Code CodeSystem Date Notes TB 1 Step Mantoux (PPD) completed tuberculin skin test; unspecified formulation lotNumber: [id number] expiry: 09/01/2026 Mfg: [employer] Given [...] Status 1 ACUTE KIDNEY FAILURE, UNSPECIFIED 07/11/[address] active 2 AFTERCARE FOLLOWING JOINT REPLACEMENT SURGERY 07/11/[address] active 3 CHRONIC DIASTOLIC (CONGESTIVE) HEART FAILURE 07/11/[address] active 4 DIFFICULTY IN WALKING, NOT ELSEWHERE CLASSIFIED 07/11/[address] active 5 HYPERLIPIDEMIA, UNSPECIFIED 07/11/[address] active 6 MUSCLE WEAKNESS (GENERALIZED) 07/11/[address] active 7 PAIN IN RIGHT HIP 07/11/[address] active 8 PERSONAL HISTORY OF TRANSIENT ISCHEMIC ATTACK (TIA), AND CEREBRAL INFARCTION WITHOUT RESIDUAL DEFICITS 07/11/[address] active 9 PRESENCE OF ARTIFICIAL HIP JOINT, BILATERAL 07/11/[address] active 10 PRESENCE OF RIGHT ARTIFICIAL HIP JOINT 07/11/[address] active 11 UNSTEADINESS ON FEET 07/11/[address] active 12 ATHEROSCLEROTIC HEART DISEASE OF [place] CORONARY ARTERY WITHOUT ANGINA PECTORIS 05/12/[address] active 13 DIFFICULTY IN WALKING, NOT ELSEWHERE CLASSIFIED 05/12/20 23 07/07/[address] completed 14 ENCOUNTER FOR ATTENTION TO OTHER ARTIFICIAL OPENINGS OF URINARY TRACT 05/12/20 23 07/10/[address] completed 15 MUSCLE WEAKNESS (GENERALIZED) 05/12/20 23 07/07/[address] completed 16 SEPSIS, UNSPECIFIED ORGANISM 05/12/20 23 07/09/[address] completed 17 UNSTEADINESS ON FEET 05/12/20 23 07/07/[address] completed 18 URINARY TRACT INFECTION, SITE NOT SPECIFIED 05/12/20 23 07/06/[address] completed 19 CHRONIC KIDNEY DISEASE, STAGE 3 UNSPECIFIED 08/26/[address] active 20 DIFFICULTY IN WALKING, NOT ELSEWHERE CLASSIFIED 08/26/20 22 05/11/[address] completed 21 ESSENTIAL (PRIMARY) HYPERTENSION 08/26/[address] active 22 HYPOTHYROIDISM, UNSPECIFIED 08/26/[address] active 23 MUSCLE WEAKNESS (GENERALIZED) 08/26/20 22 05/11/[address] completed 24 NEUROMUSCULAR DYSFUNCTION OF BLADDER, UNSPECIFIED 08/26/[address] active 25 NONDISPLACED FRACTURE OF LATERAL MALLEOLUS OF RIGHT FIBULA, SUBSEQUENT ENCOUNTER FOR CLOSED FRACTURE WITH ROUTINE HEALING 08/26/20 22 05/11/[address] completed 26 PAROXYSMAL ATRIAL FIBRILLATION 08/26/[address] active 27 PERSONAL HISTORY OF COVID-19 08/26/[address] active 28 TYPE 2 DIABETES MELLITUS WITHOUT COMPLICATIONS 08/26/[address] active 29 UNILATERAL PRIMARY OSTEOARTHRITIS, RIGHT HIP 08/26/[address] active 30 UNSPECIFIED FALL, SEQUELA 08/26/20 22 05/11/[address] completed 31 UNSPECIFIED SYSTOLIC (CONGESTIVE) HEART FAILURE 08/26/[address] active 32 UNSTEADINESS ON FEET 08/26/2005/11/[address] completed 33 URINARY TRACT INFECTION, SITE NOT SPECIFIED 08/26/2005/11/[address] completed Reason for Referral No Reasons for Referral Entered Social History Social History Observation Description Start Date End Date Code Code System Current Smoking Status Tobacco smoking consumption unknown 663832082 SNOMED CT Sex Assigned At Female 1940 [address]-0 [facility] Vital Signs Code Code System Vitals Name Values and Units Timing Information 52790-8 [facility] Pain Level Value=0.0 08/01/2023 2339-0 [facility] Blood Sugar Siusm=378.0 Units=mg/dL 08/01/2023 9279-1 [facility] Respiratory Rate Value=18.0 Units=/m in 08/01/2023 8462-4 [facility] Blood Pressure-Diastolic Value=73 Un its=mmHg 08/01/2023 8480-6 [facility] Blood Pressure-Systolic Ppzlj=056 Un its=mmHg 08/01/2023 8310-5 [facility] Body Temperature Value=96.9 Units=?? F 08/01/2023 8867-4 [facility] Heart rate Value=84.0 Units=/min 90249-7 [facility] O2 % dC Oximetry Value=96.0 Units= % 08/01/2023 16356-4 [facility] Weight Mzqvc=323.0 Units=Lbs 8302-2 [facility] Height Value=65.0 Units=Inches 07/13/2023
--- OUTSIDE RECORDS SUMMARY | 2025-01-20 15:48 | XMS_ITS | Patient Health Record ---
Author Organization [facility] Address [address] [place] [address] Support Name Relationship Address Phone DENNISE MENDOZA Guarantor Unknown [phone] Reason For Referral No Information Medications Medication SIG (Take, Route, Frequency, Duration) Notes Start Date End Date Status Atenolol 100MG 1 ORAL DAILY for -3 [facility] 02/02/2012 Active Triamcinolone Acetonide 0.1% 1 External twice daily for -3 [facility] 04/17/2014 Active Aspirin EC 81MG 1 ORAL daily for -3 [facility] 02/02/2012 Active Simvastatin 80MG 1 ORAL daily for -3 [facility] 02/02/2012 Active Plavix 75MG 1 ORAL daily for -3 [facility] 02/02/2012 Active metFORMIN HCl 500MG 1 ORAL four times daily for -3 [facility] 02/02/2012 Active Lisinopril 10MG 1 ORAL daily for -3 [facility] 02/02/2012 Active hydroCHLOROthiazide 25mg 1 ORAL daily for -3 [facility] 02/01 Active Fluconazole 150MG 1 ORAL once for -3 [facility] 05/22/2014 Active Detrol LA 4MG 1 ORAL at bedtime fo r - [facility] 05/22/2014 Active Problems Problem Type SNOMED Code ICD Code Onset Dates Problem Status W/U Status Risk Notes Problem Type II diabetes mellitus without complication (602559921) Diabetes mellitus without mention of complication, type II or unspecified type, not stated as uncontrolled (250.00) Active confirmed Major Problem Urinary tract infectious disease (disorder) (74981288) Urinary tract infection, site not specified (599.0) Active confirmed Diag Problem Urinary incontinence (075502294) Unspecified urinary incontinence (788.30) Active confirmed Diag Problem Urinary frequency (363043006) Urinary frequency (788.41) Active confirmed Diag Problem Gynecological examination normal (411096445216228) Routine gynecological examination (V7.31) Active confirmed Diag Plan Of Treatment No Information Insurance Providers Payer Name Payer Address Payer Phone Subscriber Number Group Number Insured Name Patient Relationship to Insured Coverage Start Date Coverage End Date [employer] [address] [place] [id number] [phone] [id number] DENNISE MENDOZA Self - patient is the insured
== END 2025-01-20 13:54 | disposition home or self-care (01) ==
LOC: HO.ACS 13:30
PROVIDERS: PCP Internal Medicine; Visit Provider Internal Medicine Medical Oncology
DX: Z79.01 Long term (current) use of 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 (principal)

== ENCOUNTER → 2025-01-20 13:30 | Outpatient (BNVA) | payer MEDICARE, SELFPAY | PROVIDERS: PCP Internal Medicine; Visit Provider Internal Medicine Medical Oncology | DX: I48.0 Paroxysmal atrial fibrillation (principal); Z79.01 Long term (current) use of 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; Z51.81 Encounter for therapeutic drug level monitoring | CPT/HCPCS: 85610; 99211 ==

== ENCOUNTER → 2025-02-03 13:00 | Outpatient (BNVA) | payer MEDICARE, SELFPAY | PROVIDERS: PCP Internal Medicine; Visit Provider Urology | DX: I48.0 Paroxysmal atrial fibrillation (principal); Z79.01 Long term (current) use of 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; Z51.81 Encounter for therapeutic drug level monitoring; Z93.59 Other cystostomy status | CPT/HCPCS: 51705; 85610; 99211 ==

== ENCOUNTER 2025-02-03 13:43 | Outpatient (AMB) | payer MEDICARE, SELFPAY ==
[2025-02-03 14:03] LABS: Prothrombin Time Whole Bld POC 35.7 sec (11.1-13.5)
--- NOTE | 2025-02-03 14:05 | MHC.OFFVISCO ---
Intake Intake Visit Reasons: Anticoagulation Allergies No Known Allergies [No Known Allergies*] Allergy (Verified 02/03/25 13:47) Medication List - Last Reconciled 02/03/25 by Deja Templeton RN amlodipine 5 mg PO DAILY amoxicillin-pot clavulanate 500-125 mg (Augmentin) 1 tab PO TID 5 days ascorbic acid (vitamin C) 1 g PO DAILY aspirin 81 mg PO DAILY atorvastatin 10 mg PO BEDTIME clopidogrel 75 mg PO DAILY colchicine 0.6 mg PO QID empagliflozin (Jardiance) 10 mg PO DAILY ertapenem 0.5 grams IV DAILY furosemide 20 mg PO BID insulin aspart U-100 See Protocol sliding scale doses subcut QIDACHS insulin glargine (Lantus U-100 Insulin) 25 units (0.25 mL) subcut BEDTIME [interdry As directed. Apply interdry to abdominal and inguinal folds. ] ketoconazole 2% appl topical BID ketorolac 0.5% drps ophthalmic (eye) lancets (FreeStyle Lancets) As directed latanoprost 0.005% 1 drp ophthalmic-Right BEDTIME levofloxacin 500 mg PO DAILY 7 days levothyroxine 25 mcg PO DAILY@0600 melatonin 10 mg PO BEDTIME PRN methenamine hippurate 1 g PO DAILY 90 days metoprolol succinate ER 200 mg PO DAILY mirabegron ER (Myrbetriq) 25 mg PO DAILY 30 days multivitamin (One Daily Multivitamin tablet) 1 tab PO DAILY nystatin 1 appl See Protocol topical TID pen needle, diabetic (BD Cathy 2nd Gen Pen Needle) As directed sulfamethoxazole-trimethoprim 800-160 mg (Bactrim DS) 1 tab PO BID 7 days valsartan 20 mg (1/2 x 40 mg) PO BID vitamins A,C,S-ogwf-ceyond 2,148 mcg-113 mg-45 mg-17.4mg (PreserVision AREDS) 1 tab PO BIDWM warfarin See Protocol 2 mg orally 1MG X 5 DAYS/ 2MG X 2 DAYS; Nursing Note Pt to [facility] in W/C accompanied by daughter. INR: 3.0 in therapeutic range of 2-3 Pt just had an appt with Dr Crews, Urology, and has a UTI. Chronic martinez catheter changed. Antibiotics ordered. Will be taking Amoxicillin-Clav strating tonight or tomorrow. Medications and supplements reviewed No changes in health, diet, medications, or supplements, Denies any signs and symptoms of bleeding or bruising or clotting. Bleeding, bruising, clotting discussed Nutritional guidance given to increase greens by 2-3 servings over the next week Dose: usual dose of 1mg X 4 days and 2mg X 3 days //) but decrease tomorrow's dose of 2mg to 1mg then decrease Thursday's dose of 2mg to 1mg. F/U INR: 02/09/25 Patient and daughter verbalizes understanding of instructions given Anti-Coag Initial Assessment Social Hx Patient Tobacco Use Status: Never used Tobacco alcohol intake: never Alcohol intake frequency: does not drink Coding Level of Care Code Est Patient Level 1 Diagnoses Current use of anticoagulant therapy Z79.01 Results AMB INR Fingerstick AMB INR Fingerstick 3.0 Last Edit by Deja Templeton RN on 02/03/25 13:57 interface delay Assessment & Plan Assessment & Plan (1) Current use of anticoagulant therapy: Code(s): Z79.01 - nursing home (current) use of 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
--- OUTSIDE RECORDS SUMMARY | 2025-02-03 15:32 | XMS_ITS | Clinical Summary ---
Author Organization [facility] Address [address] [place] [address] Phone Care Team Providers Care Floor Clerk Name Role Phone Nano Delaney MD Primary [...] patient's age to complete this topic Insurance [facility] MEDICARE [facility] MEDICARE Care Teams Floor Clerk Relationship Specialty Start Date End Date Nano Delaney MD [address] [place] [address] PCP - General 11/12/20
--- OUTSIDE RECORDS SUMMARY | 2025-02-03 15:32 | XMS_ITS | Clinical Summary ---
Author Organization [facility] Address [address] [place] [address] Care Team Providers Care Medical Fee Clerk Name Role Phone Unavailable Primary Care Provider [...]
== END 2025-02-03 14:11 | disposition home or self-care (01) ==
LOC: HO.ACS 13:43
PROVIDERS: PCP Internal Medicine; Visit Provider Internal Medicine Medical Oncology
DX: Z79.01 Long term (current) use of 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 (principal)

== ENCOUNTER 2025-02-09 13:46 | Outpatient (AMB) | payer MEDICARE, SELFPAY ==
[2025-02-09 13:58] LABS: Prothrombin Time Whole Bld POC 26.7 sec (11.1-13.5); ~PT, ~INR - Anti Coag Clinic 2.2 (0.9-1.1)
--- NOTE | 2025-02-09 14:09 | MHC.OFFVISCO ---
Intake Intake Visit Reasons: Anticoagulation Allergies amox-clav Allergy (Mild, Uncoded 02/09/25 14:15) Rash Medication List - Last Reconciled 02/09/25 by Zoraida Schultz RN amlodipine 5 mg PO DAILY amoxicillin-pot clavulanate 500-125 mg tabs PO ascorbic acid (vitamin C) 1 g PO DAILY aspirin 81 mg PO DAILY atorvastatin 10 mg PO BEDTIME ciprofloxacin HCl 250 mg PO BID 7 days clopidogrel 75 mg PO DAILY colchicine 0.6 mg PO QID empagliflozin (Jardiance) 10 mg PO DAILY furosemide 20 mg PO BID insulin aspart U-100 See Protocol sliding scale doses subcut QIDACHS insulin glargine (Lantus U-100 Insulin) 25 units (0.25 mL) subcut BEDTIME insulin glargine (Lantus Solostar U-100 Insulin) units subcut insulin lispro (Humalog KwikPen (U-100) Insulin) subcut [interdry As directed. Apply interdry to abdominal and inguinal folds. ] ketoconazole 2% appl topical BID ketorolac 0.5% drps ophthalmic (eye) lancets (FreeStyle Lancets) As directed latanoprost 0.005% 1 drp ophthalmic-Right BEDTIME levothyroxine 25 mcg PO DAILY@0600 melatonin 10 mg PO BEDTIME PRN methenamine hippurate 1 g PO DAILY 90 days metoprolol succinate ER 200 mg PO DAILY mirabegron ER (Myrbetriq) 25 mg PO DAILY 30 days multivitamin (One Daily Multivitamin tablet) 1 tab PO DAILY nystatin 1 appl See Protocol topical TID pen needle, diabetic (BD Cathy 2nd Gen Pen Needle) As directed valsartan 20 mg (1/2 x 40 mg) PO BID vitamins A,C,M-kcka-clvyge 2,148 mcg-113 mg-45 mg-17.4mg (PreserVision AREDS) 1 tab PO BIDWM warfarin See Protocol 2 mg orally 1MG X 5 DAYS/ 2MG X 2 DAYS; Nursing Note comes to ACS via wheelchair with daughter, legs bilat edema which is chronic with her she was dx with UTI and tx with antbx last week and now on another INR: 2.2 in therapeutic range Medications and supplements reviewed- Completed 1 antbx and now on another - had a decreased warfarin dose last week due to antbx and will cont on same dose again states she is feeling better, except she now has a rash from the first antbx Denies any signs and symptoms of bleeding or bruising or clotting. Bleeding, bruising, clotting discussed Nutritional guidance given - eat a mix of fruits and vegetables to balance INR Dose: keep lower warfarin dose again this week and next due to antbx : 2mg x 3days/ 1mg x 4 days F/U INR: 1 week Patient verbalizes understanding of instructions given Anti-Coag Initial Assessment Social Hx Patient Tobacco Use Status: Never used Tobacco alcohol intake: never Alcohol intake frequency: does not drink Questionnaires HAS-BLED Does the patient had uncontrolled Hypertension?: No Does the patient have renal disease?: No Does the patient have liver disease?: No Does the patient have a history of stroke?: No Has the patient had major bleeding or predisposition to bleeding?: No Does the patient have labile INRs?: Yes Is the patient over 65 years of age?: Yes Is the patient on medications that gives them a predisposition to bleeding?: Yes Does the patient use alcohol?: No HAS-BLED Score: 3 CHADSVASC Age: 75 or over Gender: Female Does the patient have a history of CHF?: Yes Does the patient have a history of Hypertension?: Yes Does the patient have a history of Stroke/TIA/Thromboembolism?: No Does the patient have a history of Vascular Disease (prior GA, PAD or aortic plaque)?: Yes Does the patient have a history of Diabetes?: Yes CHADS VACS Score: 7 Thanh Prediction Score Rsk VTE Active Cancer: No Previous VTE, excluding superficial vein thrombosis: No Reduced mobility: Yes Already known Thrombophilic Condition: No (daughter has protein s deff) With-in last month Trauma and/or Surgery: No Elderly 70 year or older: Yes Heart and/or Respiratory Failure: Yes Acute Myocardial infarction and/or Ischemic Stroke: No Acute Infection and/or Rheumatologic Disorder: No Obesity (BMI 30 or greater): Yes Ongoing Hormonal Treatment: No Score: 6 Thanh Score less than 4; Low Risk of VTE Thanh Score 4 or greater; High Risk of VTE Coding Level of Care Code Est Patient Level 1 Diagnoses Current use of anticoagulant therapy Z79.01 Assessment & Plan Assessment & Plan (1) Current use of anticoagulant therapy: Code(s): Z79.01 - group home (current) use of 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
--- OUTSIDE RECORDS SUMMARY | 2025-02-09 16:38 | XMS_ITS | Clinical Summary ---
Author Organization [facility] Address [address] [place] [address] Care Team Providers Care Wood Fence Installer Name Role Phone Unavailable Primary Care Provider [...]
--- OUTSIDE RECORDS SUMMARY | 2025-02-09 16:38 | XMS_ITS | Clinical Summary ---
Author Organization [facility] Address [address] [place] [address] Phone Care Team Providers Care Lang Interpreter Name Role Phone Nano Delaney MD Primary Care Provider [phone] Allergies No known active allergies Medications amLODIPine [...] Due Date Last Done Comments Pneumococcal Vaccine: 50+ Ye ars (1 of 2 - PCV) 1946 Diabetes: Hemoglobin A1C 12/03/2020 Diabetes: Ophthalmology Exam 12/03/2020 Diabetes: Pedal Pulse Checked 12/03/2020 Diabetes: Sensory Foot Exam 12/03/2020 Diabetes: Visual Foot Exam 12/03/2020 Influenza Vaccine (Season Ended) 2025 Hepatitis B Vaccine Aged Out No longe r eligible based on patient's age to complete this topic Insurance [facility] Medicare [facility] Medicare Care Teams Lang Interpreter Relationship Specialty Start Date End Date Nano Delaney MD [address] [place] [address] PCP - General 11/12/20
== END 2025-02-09 14:16 | disposition home or self-care (01) ==
LOC: HO.ACS 13:46
PROVIDERS: PCP Internal Medicine; Visit Provider Internal Medicine Medical Oncology
DX: Z79.01 Long term (current) use of 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 (principal)

== ENCOUNTER → 2025-02-09 13:46 | Outpatient (BNVA) | payer MEDICARE, SELFPAY | PROVIDERS: PCP Internal Medicine; Visit Provider Internal Medicine Medical Oncology | DX: I48.0 Paroxysmal atrial fibrillation (principal); Z51.81 Encounter for therapeutic drug level monitoring; Z79.01 Long term (current) use of 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 | CPT/HCPCS: 85610; 99211 ==

== ENCOUNTER 2025-02-21 13:44 | Outpatient (AMB) | payer MEDICARE, SELFPAY ==
[2025-02-21 14:03] LABS: Prothrombin Time Whole Bld POC 40.4 sec (11.1-13.5); ~PT, ~INR - Anti Coag Clinic 3.4 (0.9-1.1)
--- NOTE | 2025-02-21 14:15 | MHC.OFFVISCO ---
Intake Intake Visit Reasons: Anticoagulation Allergies amox-clav Allergy (Mild, Uncoded 02/21/25 13:57) Rash Medication List - Last Reconciled 02/21/25 by Deja Templeton, RN amlodipine 5 mg PO DAILY ascorbic acid (vitamin C) 1 g PO DAILY aspirin 81 mg PO DAILY atorvastatin 10 mg PO BEDTIME ciprofloxacin HCl 250 mg PO BID 7 days clopidogrel 75 mg PO DAILY colchicine 0.6 mg PO QID empagliflozin (Jardiance) 10 mg PO DAILY furosemide 20 mg PO BID insulin aspart U-100 See Protocol sliding scale doses subcut QIDACHS insulin glargine (Lantus U-100 Insulin) 25 units (0.25 mL) subcut BEDTIME insulin glargine (Lantus Solostar U-100 Insulin) units subcut insulin lispro (Humalog KwikPen (U-100) Insulin) subcut [interdry As directed. Apply interdry to abdominal and inguinal folds. ] ketoconazole 2% appl topical BID ketorolac 0.5% drps ophthalmic (eye) lancets (FreeStyle Lancets) As directed latanoprost 0.005% 1 drp ophthalmic-Right BEDTIME levothyroxine 25 mcg PO DAILY@0600 melatonin 10 mg PO BEDTIME PRN methenamine hippurate 1 g PO DAILY 90 days metoprolol succinate ER 200 mg PO DAILY mirabegron ER (Myrbetriq) 25 mg PO DAILY 30 days multivitamin (One Daily Multivitamin tablet) 1 tab PO DAILY nystatin 1 appl See Protocol topical TID pen needle, diabetic (BD Cathy 2nd Gen Pen Needle) As directed valsartan 20 mg (1/2 x 40 mg) PO BID vitamins A,C,P-wllo-yvlsvx 2,148 mcg-113 mg-45 mg-17.4mg (PreserVision AREDS) 1 tab PO BIDWM warfarin See Protocol 2 mg orally 1MG X 5 DAYS/ 2MG X 2 DAYS; Nursing Note Pt to ACS in w/c accompanied by daughter INR: 3.4?? out of therapeutic range of 2-3 Was on amoxicillin clav for UTI completed almost 2 weeks ago but can have a delayed effect to raise the INR Medications and supplements reviewed Patient status: feels well Medications or supplements: no changes Diet: usual diet for pt but she said she increased her greens Denies any signs and symptoms of bleeding or clotting or unusual bruising Bleeding, bruising, clotting discussed Nutritional guidance given: food list reviewed and pt will increase greens today and tomorrow with broccoli and spinach Dose: decrease tomorrow's dose to 1mg (2mg) then F/U INR Date : []?? Patient verbalizing understanding of instructions given. Anti-Coag Initial Assessment Social Hx Patient Tobacco Use Status: Never used Tobacco alcohol intake: never Alcohol intake frequency: does not drink Coding Level of Care Code Est Patient Level 1 Diagnoses Current use of anticoagulant therapy Z79.01 Results AMB INR Fingerstick AMB INR Fingerstick 3.4 Last Edit by Deja Templeton RN on 02/21/25 14:03 interface delay Assessment & Plan Assessment & Plan (1) Current use of anticoagulant therapy: Code(s): Z79.01 - [facility] (current) use of 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
--- NOTE | 2025-02-21 14:22 | MHC.OFFVISCO ---
Intake Intake Visit Reasons: Anticoagulation Allergies amox-clav Allergy (Mild, Uncoded 02/21/25 13:57) Rash Medication List - Last Reconciled 02/21/25 by Deja Templeton, RN amlodipine 5 mg PO DAILY ascorbic acid (vitamin C) 1 g PO DAILY aspirin 81 mg PO DAILY atorvastatin 10 mg PO BEDTIME ciprofloxacin HCl 250 mg PO BID 7 days clopidogrel 75 mg PO DAILY colchicine 0.6 mg PO QID empagliflozin (Jardiance) 10 mg PO DAILY furosemide 20 mg PO BID insulin aspart U-100 See Protocol sliding scale doses subcut QIDACHS insulin glargine (Lantus U-100 Insulin) 25 units (0.25 mL) subcut BEDTIME insulin glargine (Lantus Solostar U-100 Insulin) units subcut insulin lispro (Humalog KwikPen (U-100) Insulin) subcut [interdry As directed. Apply interdry to abdominal and inguinal folds. ] ketoconazole 2% appl topical BID ketorolac 0.5% drps ophthalmic (eye) lancets (FreeStyle Lancets) As directed latanoprost 0.005% 1 drp ophthalmic-Right BEDTIME levothyroxine 25 mcg PO DAILY@0600 melatonin 10 mg PO BEDTIME PRN methenamine hippurate 1 g PO DAILY 90 days metoprolol succinate ER 200 mg PO DAILY mirabegron ER (Myrbetriq) 25 mg PO DAILY 30 days multivitamin (One Daily Multivitamin tablet) 1 tab PO DAILY nystatin 1 appl See Protocol topical TID pen needle, diabetic (BD Cathy 2nd Gen Pen Needle) As directed valsartan 20 mg (1/2 x 40 mg) PO BID vitamins A,C,N-pqjk-datfpm 2,148 mcg-113 mg-45 mg-17.4mg (PreserVision AREDS) 1 tab PO BIDWM warfarin See Protocol 2 mg orally 1MG X 5 DAYS/ 2MG X 2 DAYS; Nursing Note Pt to ACS in w/c accompanied by her daughter INR: 3.4?out of therapeutic range of 2-3 Pt had a UTI 2 weeks ago and was on amoxicillin clav but completed course of treatment a week and a half ago. Medications and supplements reviewed Patient status: feels better Medications or supplements: no changes Diet: had increased her greens as instructed Denies any signs and symptoms of bleeding or clotting or unusual bruising Bleeding, bruising, clotting discussed Nutritional guidance given: increase greens today and tomorrow. Food list reviewed with pt and daughter. Pt will have brocolli and spinach. Dose: will decrease tomorrow's dose from 2mg to 1mg then to resume usual dose of 1 mg X 4 days and 2mg X 3 days (M/W/F) F/U INR Date: 1 week?? Patient verbalizing understanding of instructions given. 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
--- OUTSIDE RECORDS SUMMARY | 2025-02-21 16:22 | XMS_ITS | Clinical Summary ---
Author Organization [facility] Address [address] [place] [address] Care Team Providers Care Denture Laboratory Technician Name Role Phone Unavailable Primary Care [...]
--- OUTSIDE RECORDS SUMMARY | 2025-02-21 16:22 | XMS_ITS | Clinical Summary ---
Author Organization [facility] Address [address] [place] [address] Phone Care Team Providers Care Media Center Specialist Name Role Phone Nano Delaney MD Primary [...] Ye ars (1 of 2 - PCV) 1959 Diabetes: Hemoglobin A1C 12/03/2020 Diabetes: Ophthalmology Exam 12/03/2020 Diabetes: Pedal Pulse Checked 12/03/2020 Diabetes: Sensory Foot Exam 12/03/2020 Diabetes: Visual Foot Exam 12/03/2020 Influenza Vaccine (Season Ended) 2025 Hepatitis B Vaccine Aged Out No longe r eligible based on patient's age to complete this topic Insurance [facility] Medicare [facility] Medicare Care Teams Media Center Specialist Relationship Specialty Start Date End Date Nano Delaney MD [address] [place] [address] PCP - General 11/12/20
== END 2025-02-21 14:34 | disposition home or self-care (01) ==
LOC: HO.ACS 13:44
PROVIDERS: PCP Internal Medicine; Visit Provider Internal Medicine Medical Oncology
DX: Z79.01 Long term (current) use of 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 (principal)

== ENCOUNTER → 2025-02-21 13:44 | Outpatient (BNVA) | payer MEDICARE, SELFPAY | PROVIDERS: PCP Internal Medicine; Visit Provider Internal Medicine Medical Oncology | DX: I48.0 Paroxysmal atrial fibrillation (principal); Z79.01 Long term (current) use of 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; Z51.81 Encounter for therapeutic drug level monitoring | CPT/HCPCS: 85610; 99211 ==

== ENCOUNTER → 2025-02-27 13:43 | Outpatient (BNVA) | payer MEDICARE, SELFPAY | PROVIDERS: PCP Internal Medicine; Visit Provider Nurse Practitioner Family | DX: Z46.6 Encounter for fitting and adjustment of urinary device (principal); Z93.59 Other cystostomy status | CPT/HCPCS: 51705 ==

== ENCOUNTER 2025-03-07 14:06 | Outpatient (AMB) | payer MEDICARE, SELFPAY ==
[2025-03-07 14:17] LABS: Prothrombin Time Whole Bld POC 22.5 sec (11.1-13.5); ~PT, ~INR - Anti Coag Clinic 1.9 (0.9-1.1)
--- NOTE | 2025-03-07 14:31 | MHC.OFFVISCO ---
Intake Intake Visit Reasons: Anticoagulation Allergies amox-clav Allergy (Mild, Uncoded 03/07/25 14:08) Rash Medication List - Last Reconciled 03/07/25 by Deja Templeton, RN amlodipine 5 mg PO DAILY ascorbic acid (vitamin C) 1 g PO DAILY aspirin 81 mg PO DAILY atorvastatin 10 mg PO BEDTIME ciprofloxacin HCl 250 mg PO BID 7 days clopidogrel 75 mg PO DAILY colchicine 0.6 mg PO QID empagliflozin (Jardiance) 10 mg PO DAILY furosemide 20 mg PO BID insulin aspart U-100 See Protocol sliding scale doses subcut QIDACHS insulin glargine (Lantus U-100 Insulin) 25 units (0.25 mL) subcut BEDTIME insulin glargine (Lantus Solostar U-100 Insulin) units subcut insulin lispro (Humalog KwikPen (U-100) Insulin) subcut [interdry As directed. Apply interdry to abdominal and inguinal folds. ] ketoconazole 2% appl topical BID ketorolac 0.5% drps ophthalmic (eye) lancets (FreeStyle Lancets) As directed latanoprost 0.005% 1 drp ophthalmic-Right BEDTIME levothyroxine 25 mcg PO DAILY@0600 melatonin 10 mg PO BEDTIME PRN methenamine hippurate 1 g PO DAILY 90 days metoprolol succinate ER 200 mg PO DAILY mirabegron ER (Myrbetriq) 25 mg PO DAILY 30 days multivitamin (One Daily Multivitamin tablet) 1 tab PO DAILY nystatin 1 appl See Protocol topical TID pen needle, diabetic (BD Cathy 2nd Gen Pen Needle) As directed valsartan 20 mg (1/2 x 40 mg) PO BID vitamins A,C,D-ssql-hwjpip 2,148 mcg-113 mg-45 mg-17.4mg (PreserVision AREDS) 1 tab PO BIDWM warfarin See Protocol 2 mg orally 1MG X 5 DAYS/ 2MG X 2 DAYS; Nursing Note Pt to ACS in W/C accompanied by daughter INR: 1.9 out of therapeutic range of 2-3 Medications and supplements reviewed No changes in health, diet, medications, or supplements, Denies any signs and symptoms of bleeding or bruising or clotting. Bleeding, bruising, clotting discussed Nutritional guidance given to avoid greens times 2 days and to have foods from the list that raises the INR. Food list reviewed. Dose: 1mg X 4 days and 2mg X 3 days (M/W/F) F/U INR: 03/16/25 Patient verbalizes understanding of instructions given Anti-Coag Initial Assessment Social Hx Patient Tobacco Use Status: Never used Tobacco alcohol intake: never Alcohol intake frequency: does not drink Coding Level of Care Code Est Patient Level 1 Diagnoses Current use of anticoagulant therapy Z79.01 Results AMB INR Fingerstick AMB INR Fingerstick 1.9 Last Edit by Deja Templeton RN on 03/07/25 14:16 INTERFACE DELAY Assessment & Plan Assessment & Plan (1) Current use of anticoagulant therapy: Code(s): Z79.01 - custodial (current) use of 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
--- OUTSIDE RECORDS SUMMARY | 2025-03-07 15:25 | XMS_ITS | Clinical Summary ---
Author Organization [facility] Address [address] [place] [address] Phone Care Team Providers Care Amusement Ride Inspector Name Role Phone Nano Delaney MD Primary Care Provider [phone] Allergies No known active allergies Medications amLODIPine [...] patient's age to complete this topic Insurance [facility] Medicare [facility] Medicare Care Teams Amusement Ride Inspector Relationship Specialty Start Date End Date Nano Delaney MD [address] [place] [address] PCP - General 11/12/20
--- OUTSIDE RECORDS SUMMARY | 2025-03-07 15:25 | XMS_ITS | Clinical Summary ---
Author Organization [facility] Address [address] [place] [address] Care Team Providers Care Bookkeeping Manager Name Role Phone Unavailable Primary Care [...] ( - 2023-2 5 season) 2024 Influenza (Season Ended) 2025 HPV Vaccine Aged Out No longer eligi [...]
== END 2025-03-07 14:34 | disposition home or self-care (01) ==
LOC: HO.ACS 14:06
PROVIDERS: PCP Internal Medicine; Visit Provider Internal Medicine Medical Oncology
DX: Z79.01 Long term (current) use of 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 (principal)

== ENCOUNTER → 2025-03-07 14:06 | Outpatient (BNVA) | payer MEDICARE, SELFPAY | PROVIDERS: PCP Internal Medicine; Visit Provider Internal Medicine Medical Oncology | DX: I48.0 Paroxysmal atrial fibrillation (principal); Z51.81 Encounter for therapeutic drug level monitoring; Z79.01 Long term (current) use of 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 | CPT/HCPCS: 85610; 99211 ==

== ENCOUNTER → 2025-03-16 13:38 | Outpatient (BNVA) | payer MEDICARE, SELFPAY | PROVIDERS: PCP Internal Medicine; Visit Provider Internal Medicine Medical Oncology | DX: I48.20 Chronic atrial fibrillation, unspecified (principal); Z79.01 Long term (current) use of 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; Z51.81 Encounter for therapeutic drug level monitoring | CPT/HCPCS: 85610; 99211 ==

== ENCOUNTER 2025-03-21 13:41 | Outpatient (AMB) | payer MEDICARE, SELFPAY ==
--- NOTE | 2025-03-21 14:34 | AM.OFFVISNUR ---
Intake Visit Reasons: 3w cath change Allergies amox-clav Allergy (Mild, Uncoded 03/16/25 13:44) Rash Office Procedures Bladder/Catheter Procedure Details: 20 fr sp tube exchanged with new 20 fr david sp tube, 8 ml balloon with blue plug. Patient urine appeared to be blood tinged and patient reported UTI symptoms. Urine collected and sent to lab for culture and sipped in office for urinalysis. Patient aware and agreeable. Reviewed with Dr. Sharma- sent Bactrim BID x5 days. Pt tolerated exchange well. 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 1 tab PO BID 5 days 10 tabs 0RF Coding CPT Codes Bladder/Catheter Procedure - CPT: 23800-Zkxcek of bladder tube ([id number])
--- OUTSIDE RECORDS SUMMARY | 2025-03-21 14:53 | XMS_ITS | Clinical Summary ---
Author Organization [facility] Address [address] [place] [address] Phone Care Team Providers Care Hotel Supplies Salesperson Name Role Phone Nano Delaney MD Primary [...] patient's age to complete this topic Insurance [facility] Medicare [facility] Medicare Care Teams Hotel Supplies Salesperson Relationship Specialty Start Date End Date Nano Delaney MD [address] [place] [address] PCP - General 11/12/20
--- OUTSIDE RECORDS SUMMARY | 2025-03-21 14:53 | XMS_ITS | Clinical Summary ---
Author Organization [facility] Address [address] [place] [address] Care Team Providers Care Assistant Principal Name Role Phone Unavailable Primary Care Provider [...]
== END 2025-03-21 14:29 | disposition home or self-care (01) ==
LOC: HO.HUSH 13:42
PROVIDERS: PCP Internal Medicine; Visit Provider Urology
DX: Z13.9 Encounter for screening, unspecified (principal)

== ENCOUNTER 2025-03-21 13:41 | Outpatient (REF) | payer MEDICARE, SELFPAY ==
--- OUTSIDE RECORDS SUMMARY | 2025-03-21 16:45 | XMS_ITS | Clinical Summary ---
Author Organization [facility] Address [address] [place] [address] Care Team Providers Care Pulp Mill Team Leader Name Role Phone Unavailable Primary Care Provider [...]
--- OUTSIDE RECORDS SUMMARY | 2025-03-21 16:45 | XMS_ITS | Clinical Summary ---
Author Organization [facility] Address [address] [place] [address] Phone Care Team Providers Care Batch Dumper Name Role Phone Nano Delaney MD Primary [...] patient's age to complete this topic Insurance [facility] Medicare [facility] Medicare Care Teams Batch Dumper Relationship Specialty Start Date End Date Nano Delaney MD [address] [place] [address] PCP - General 11/12/20
== END 2025-03-21 13:42 | disposition home or self-care (01) ==
LOC: HO.LNP 13:41
PROVIDERS: PCP Internal Medicine; Visit Provider Urology
DX: Z46.6 Encounter for fitting and adjustment of urinary device (principal); Z93.59 Other cystostomy status; N39.0 Urinary tract infection, site not specified
CPT/HCPCS: 51705; 81003; 87086; 87147

== ENCOUNTER 2025-03-30 13:43 | Outpatient (AMB) | payer MEDICARE, SELFPAY ==
--- OUTSIDE RECORDS SUMMARY | 2025-03-30 13:49 | XMS_ITS | Clinical Summary ---
Author Organization [facility] Address [address] [place] [address] Phone Care Team Providers Care Gamma Operator Name Role Phone Nano Delaney MD Primary [...] patient's age to complete this topic Insurance [facility] Medicare [facility] Medicare Care Teams Gamma Operator Relationship Specialty Start Date End Date Nano Delaney MD [address] [place] [address] PCP - General 11/12/20
[2025-03-30 13:59] LABS: Prothrombin Time Whole Bld POC 29.2 sec (11.1-13.5); ~PT, ~INR - Anti Coag Clinic 2.4 (0.9-1.1)
--- NOTE | 2025-03-30 14:09 | MHC.OFFVISCO ---
Intake Intake Visit Reasons: Anticoagulation Allergies amox-clav Allergy (Mild, Uncoded 03/30/25 13:50) Rash Medication List - Last Reconciled 03/30/25 by Deja Templeton, RN amlodipine 5 mg PO DAILY ascorbic acid (vitamin C) 1 g PO DAILY aspirin 81 mg PO DAILY atorvastatin 10 mg PO BEDTIME clopidogrel 75 mg PO DAILY colchicine 0.6 mg PO QID empagliflozin (Jardiance) 10 mg PO DAILY furosemide 20 mg PO BID insulin aspart U-100 See Protocol sliding scale doses subcut QIDACHS insulin glargine (Lantus U-100 Insulin) 25 units (0.25 mL) subcut BEDTIME insulin glargine (Lantus Solostar U-100 Insulin) units subcut insulin lispro (Humalog KwikPen (U-100) Insulin) subcut [interdry As directed. Apply interdry to abdominal and inguinal folds. ] ketoconazole 2% appl topical BID ketorolac 0.5% drps ophthalmic (eye) lancets (FreeStyle Lancets) As directed latanoprost 0.005% 1 drp ophthalmic-Right BEDTIME levothyroxine 25 mcg PO DAILY@0600 melatonin 10 mg PO BEDTIME PRN methenamine hippurate 1 g PO DAILY 90 days metoprolol succinate ER 200 mg PO DAILY mirabegron ER (Myrbetriq) 25 mg PO DAILY 30 days multivitamin (One Daily Multivitamin tablet) 1 tab PO DAILY nystatin 1 appl See Protocol topical TID pen needle, diabetic (BD Cathy 2nd Gen Pen Needle) As directed sulfamethoxazole-trimethoprim 800-160 mg (Bactrim DS) 1 tab PO BID 5 days valsartan 20 mg (1/2 x 40 mg) PO BID vitamins A,C,T-zdhk-cfrgfe 2,148 mcg-113 mg-45 mg-17.4mg (PreserVision AREDS) 1 tab PO BIDWM warfarin See Protocol 2 mg orally 1MG X 5 DAYS/ 2MG X 2 DAYS; Nursing Note INR: 2.4 in therapeutic range 2-3 Medications and supplements reviewed No changes in health, diet, medications, or supplements, Denies any signs and symptoms of bleeding or bruising or clotting. 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
== END 2025-03-30 14:11 | disposition home or self-care (01) ==
LOC: HO.ACS 13:43
PROVIDERS: PCP Internal Medicine; Visit Provider Internal Medicine Medical Oncology
DX: Z79.01 Long term (current) use of 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 (principal)

== ENCOUNTER → 2025-03-30 13:43 | Outpatient (BNVA) | payer MEDICARE, SELFPAY | PROVIDERS: PCP Internal Medicine; Visit Provider Internal Medicine Medical Oncology | DX: I48.0 Paroxysmal atrial fibrillation (principal); Z79.01 Long term (current) use of 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; Z51.81 Encounter for therapeutic drug level monitoring | CPT/HCPCS: 85610; 99211 ==

== ENCOUNTER 2025-04-09 12:46 | Inpatient (IN) | payer MEDICARE, SELFPAY ==
[2025-04-09] VITALS (10 sets, daily range): BP systolic 113–128; BP diastolic 53–76; PULSE 92–117; RESP 12–18; TEMP 36.7–37.1; O2SAT 96–100; BMI 36.7; BMI 28.7
--- NOTE | ~2025-04-09 | US_ITS ---
EXAMINATION: Noninvasive assessment of the bilateral lower extremities CLINICAL INFORMATION: Cool and discolored left foot.. TECHNIQUE: Duplex Doppler techniques with waveform analysis and measurement of velocities in the bilateral common femoral, profunda femoris, superficial femoral, popliteal and tibial arteries were performed. The study was performed only at rest. COMPARISON: July 08, 2023, right lower extremity FINDINGS: DIRECT DUPLEX DOPPLER FINDINGS: RIGHT LEG: Common femoral artery: 97 cm/s, phasicity: Biphasic. Profunda femoris artery: 56 cm/s, phasicity: Biphasic. Superficial femoral artery (proximal): 81 cm/s, phasicity: Biphasic. Superficial femoral artery (mid): 67 cm/s, phasicity: Biphasic. Superficial femoral artery (distal): 45 cm/s, phasicity: Biphasic. Popliteal artery: 77 cm/s, phasicity: Monophasic. Posterior tibial artery: 58 cm/s, phasicity: Monophasic. Peroneal artery: No color Doppler flow. Anterior tibial artery: No color Doppler flow. Dorsalis pedis artery: 33 cm/s, phasicity:Monophasic. LEFT LEG: Common femoral artery: 124 cm/s, phasicity: Biphasic. Profunda femoris artery: 59 cm/s, phasicity: Biphasic. Superficial femoral artery (proximal): 96 cm/s, phasicity: Biphasic. Superficial femoral artery (mid): 87 cm/s, phasicity: Monophasic. Superficial femoral artery (distal): 67 cm/s, phasicity: Monophasic. Collateral flow. Popliteal artery: 81 cm/s, phasicity: Monophasic. Posterior tibial artery: 82 cm/s, phasicity: Monophasic. Peroneal artery: No color Doppler flow. Anterior tibial artery: 27 cm/s, phasicity: Monophasic. Dorsalis pedis artery: 61 cm/s, phasicity: Monophasic. US/US arterial duplex LE BI IMPRESSION: Right leg: Severe inflow disease from the popliteal artery to the dorsalis base artery. Concerning occluded peroneal and anterior tibialis arteries. Left leg: Severe inflow disease from the mid superficial femoral artery to the dorsalis pedis artery. Concerning occluded peroneal artery. Electronically signed by: Sandoval Craft MD 04/12/2025 08:24 AM EDT
--- NOTE | 2025-04-09 13:26 | ED.GENADULT ---
HPI - General Adult General Chief complaint: General Medical Stated complaint: BLADDER PAIN UNABLE TO URINATE Time Seen by Provider: 04/09/25 12:52 Source: patient and EMS Mode of arrival: EMS Limitations: no limitations History of Present Illness ED Provider: loy de souza np HPI narrative: Patient is an 84-year-old female past medical history of aortic stenosis, diabetes, MRSA, CAD, hypertension, hyperlipidemia, hypothyroidism, atrial fibrillation on Coumadin, CHF, CVA, neurogenic bladder with chronic suprapubic catheter who presents emergency department for evaluation. She states that over the past 3 days she has not been having urinary output from her suprapubic catheter but rather she has been having what she believes to be urinary drainage in her briefs. She has been experiencing slightly bloody/mucus-like drainage from the catheter insertion site which she states is chronic for her. Has associated pain in the lower abdomen in pressing against it. Denies nausea or vomiting, upper ABD pain. diarrhea? Related Data Home Medications ?Medication ?Instructions ?Recorded ?Confirmed levothyroxine 25 mcg tablet 25 mcg PO DAILY@0600 09/05/20 04/09/25 pen needle, diabetic 32 gauge x #50 ea 12/31/21 03/30/25 (BD Cathy 2nd Gen Pen Needle) multivitamin (One Daily 1 tab PO DAILY 09/15/22 04/09/25 Multivitamin tablet) lancets 28 gauge (FreeStyle #100 ea 09/29/22 03/30/25 Lancets) vitamins A,C,H-vkje-qhruif 2,148 1 tab PO BIDWM 05/09/23 04/09/25 mcg-113 mg-45 mg-17.4 mg tablet (PreserVision AREDS) amlodipine 5 mg tablet 5 mg PO DAILY 11/13/23 04/09/25 furosemide 20 mg tablet 10 mg PO BID 06/17/24 04/09/25 clopidogrel 75 mg tablet 75 mg PO DAILY 08/01/24 04/09/25 latanoprost 0.005 % eye drops 1 drp ophthalmic (eye) BEDTIME 09/19/24 04/09/25 warfarin 1 mg tablet 2 mg PO .COMPLEX 10/03/24 03/30/25 insulin lispro 100 unit/mL See Protocol subcut BID 02/09/25 04/09/25 subcutaneous pen (Humalog KwikPen (U-100) Insulin) melatonin 10 mg tablet 10 mg PO BEDTIME 04/09/25 04/09/25 warfarin 1 mg tablet 1 mg PO SUTUTHSA 04/09/25 04/09/25 warfarin 1 mg tablet 2 mg PO MOWEFR 04/09/25 04/09/25 Previous Rx's ?Medication ?Instructions ?Recorded atorvastatin 10 mg tablet 10 mg PO BEDTIME #90 tabs 09/22/22 empagliflozin 10 mg tablet 10 mg PO DAILY #30 tabs 09/02/23 (Jardiance) insulin glargine 100 unit/mL 25 unit (0.25 mL) subcut BEDTIME 01/23/24 subcutaneous solution (Lantus #10 mL U-100 Insulin) metoprolol succinate 200 mg 200 mg PO DAILY #90 tabs 06/09/24 tablet,extended release 24 hr ascorbic acid (vitamin C) 1,000 mg 1 g PO DAILY #90 tabs 08/23/24 tablet interdry #1 ea 08/23/24 valsartan 40 mg tablet 20 mg (1/2 x 40 mg) PO BID #30 tabs 12/08/24 mirabegron 25 mg tablet,extended 25 mg PO DAILY 30 days #30 tabs 02/06/25 release 24 hr (Myrbetriq) Allergies Allergy/AdvReac Type Severity Reaction Status Date / Time amox-clav Allergy Mild Rash Uncoded 04/09/25 13:29 Review of Systems Review of Systems: Yes all other systems are reviewed and are negative PMFSH Past Medical History Attestation statement: The following information was validated with the patient. Source: old records reviewed Medical History Hydronephrosis determined by ultrasound Permanent atrial fibrillation DOROTHY (acute kidney injury) Atrial fibrillation Neuropathy Neurogenic bladder CVA (cerebral vascular accident) Shingles Elevated cholesterol Myocardial infarction MRSA infection Hip pain Leg wound, left Varicose vein of leg Osteoarthritis of right hip Current use of anticoagulant therapy Recurrent UTI Atrial fibrillation PAF (paroxysmal atrial fibrillation) Congestive heart failure Urinary incontinence Hypothyroidism Diabetes Hypertension CKD (chronic kidney disease) CAD (coronary artery disease) Hypotonic neurogenic bladder Surgical History History of left knee replacement History of right knee joint replacement H/O heart artery stent H/O nasal polypectomy History of tubal ligation History of tonsillectomy and adenoidectomy Hx of cholecystectomy Family History Family History Father Hx of angina pectoris Myocardial infarction Mother Ovarian cancer Stomach cancer Maternal Grandfather Hardening of the arteries of the heart Other Neurogenic bladder Social History Social History Household Members: Family Household Members Other:: daughter Housing: House Are you a primary child day care provider to a significant other at home: No Do you presently have visiting nurse or other home services: Yes (meals on wheels 5 days) Alcohol intake: never Comment: [facility] [place] Patient Tobacco Use Status: Never used Tobacco Smoked in Last 30 Days: No Patient Interested in Nicotine Replacement: No Patient Given Instructions on How to Stop Smoking: No Second Hand Smoke Exposure: No Use of substances other than those prescribed or required for medical reasons: No Currently Displaying Signs/Symptoms of Drug Intoxication Withdrawal: No Have you been hit, kicked, punched, or otherwise hurt by someone within the past year? If so, by whom?: No Do you feel safe in your current relationship?: No Current Relationship Is there a partner from a previous relationship who is making you feel unsafe now?: No Are you made to feel afraid or neglected: No [facility] Practices: [facility] Advance Directives: Yes Advance Directives on File: Yes Advance Directives Date on File: 08/27/22 Do you have a plan to hurt others: No Plan Recently lost weight without trying: No Eating poorly because of decreased appetite: No Nutrition Risks: No Nutritional Risk Patient : No : No Poor oral hygiene: No service: No Current occupational status: retired Physical Exam ED Vital Signs: Vital Signs - 24 hr 04/09/25 13:23 04/09/25 14:36 04/09/25 15:46 Temperature 98.5 F Pulse Rate 102 H 92 105 H Respiratory Rate 18 12 18 Blood Pressure 115/68 125/54 L 113/53 L Pulse Oximetry 100 96 100 Oxygen Delivery Method Room Air Room Air Room Air 04/09/25 16:09 Temperature Pulse Rate Respiratory Rate 18 Blood Pressure Pulse Oximetry Oxygen Delivery Method BMI result Body Mass Index 36.7 Appearance: Alert.?Oriented to person, place and time. No acute distress.?Normal affect. Eyes: Pupils equal, round and reactive to light.? ENT: Pharynx normal.?? Neck: Normal inspection.? Neck supple.?? CVS: Heart sounds normal. Normal heart rate and rhythm.? Pulses normal.?? Respiratory: No respiratory distress.? Lung sounds clear to auscultation bilaterally?? Abdomen: Soft and non-tender. Normoactive bowel sounds. Suprapubic catheter tube is present, there is serosanguineous drainage from the insertion site with mild surrounding erythema of the skin? Skin: Skin warm and dry.? Normal skin color.? Extremities: No lower extremity edema.? Neuro: Moves all extremities spontaneously. Sensation intact bilaterally. Course Reevaluation(s) Reevaluation #1: CBC is without leukocytosis anemia or thrombocytopenia. INR is 2.7. No significant electrolyte derangement. DOROTHY on CKD, does this may be secondary to urinary retention, concern as well for urinary tract infection, with creatinine 2.75, meeting sepsis criteria at this time, plan to change the suprapubic catheter, patient received 1 L normal saline IV fluid, obtaining blood cultures and lactic acid will cover with Rocephin once catheter changed Time: 14:57 Reevaluation #2: Twenty Zimbabwean catheter was not able to be found in the hospital at this time. Review this with the patient, will place alternatively an 18 Zimbabwean suprapubic catheter. upon initial removal scant hematuria from the opening, catheter exchange was successful, pain associated which she reports is baseline, found to have thick cloudy bloody drainage after change. No lactic acidosis. admitting to hospitalist service for UTI, DOROTHY on CKD, spoke with hospitalist Akiko NICHOLSON. Time: 16:11 Medications Administered Generic Name Dose Route Start Last Admin Trade Name Freq PRN Reason Stop Dose Admin Acetaminophen 650 mg 04/09/25 18:14 04/10/25 01:49 Acetaminophen 325 Mg Tablet PO 650 mg Q6H PRN Administration Pain, Mild 1-3,fever,headache Atorvastatin Calcium 10 mg 04/09/25 21:00 04/09/25 21:56 Atorvastatin Calcium 10 Mg Tablet PO 10 mg BEDTIME SUN Administration Cefepime HCl 1 gm/ Sodium 50 mls @ 100 mls/hr 04/09/25 19:00 04/09/25 19:15 Chloride IV Infused Q24H SUN Infusion Daptomycin 450 mg/ Sodium 59 mls @ 95.161 mls/hr 04/09/25 19:00 04/09/25 19:56 Chloride IV Infused Q48H SUN Infusion Insulin Glargine 18 unit 04/09/25 21:00 04/09/25 21:56 Insulin Glargine,Hum.Rec.Anlog 100 Unit/Ml 10 Ml Vial SUBCUT 18 unit BEDTIME SUN Administration Insulin Human Lispro 0 unit 04/09/25 21:00 04/10/25 07:25 Insulin Lispro 100 Unit/Ml 3 Ml Vial SUBCUT Not Given QIDACHS [facility] Protocol Latanoprost 1 drop 04/09/25 21:00 04/09/25 22:07 Latanoprost 0.005 % Ophth [place] 2.5 Ml Drops EYE-BOTH Not Given BEDTIME [facility] Levothyroxine Sodium 25 mcg 04/10/25 06:00 04/10/25 05:56 Levothyroxine Sodium 25 Mcg Tablet PO 25 mcg DAILY@0600 [facility] Administration Oxycodone HCl 5 mg 04/09/25 19:10 04/10/25 01:49 Oxycodone Hcl Immed Release 5 Mg Tablet PO 5 mg Q6H PRN Administration Pain, Severe (Pain Scale 7-10) Sodium Chloride 3 ml 04/10/25 00:00 04/10/25 05:47 0.9 % Sodium Chloride Flush 3 Ml Syringe IVFLUSH Not Given QSHIFT [facility] Warfarin Sodium 1 mg 04/09/25 18:15 04/09/25 19:17 Warfarin Sodium 1 Mg Tablet PO 1 mg [id number] [facility] Administration Discontinued Medications Generic Name Dose Route Start Last Admin Trade Name Freq PRN Reason Stop Dose Admin Ceftriaxone Sodium 1 gm 04/09/25 16:17 04/09/25 17:05 Ceftriaxone Sodium 1 Gm Vial IVPUSH 04/09/25 16:18 1 gm ONCE ONE Administration Sodium Chloride 1,000 mls @ 999 mls/hr 04/09/25 15:00 04/09/25 16:44 Ns IV 04/09/25 16:00 Infused .Q1H1M SUN Infusion Sodium Chloride 1,000 mls @ 80 mls/hr 04/09/25 18:00 04/09/25 18:38 Ns IVCONT 04/10/25 06:29 80 mls/hr .[id number] SUN Administration Morphine Sulfate 2 mg 04/09/25 16:08 04/09/25 16:09 Morphine Sulfate 2 Mg/Ml Cartridge IVPUSH 04/09/25 16:09 2 mg ONCE ONE Administration Protocol Procedures Catheter Insertion (Urinary) Date of insertion: 04/09/25 Time of insertion: 16:00 Reason for placing: Yes Reason for placing indwelling catheter: Other (chronic suprapubic catheter, clogged, not draining, required placement) Antiseptic solution prep: Povidone-Iodine Topical anesthesia used: No Catheter type/location: Suprapubic Size (Zimbabwean): 18 Catheter balloon size (mL): 10 Catheter balloon amount: 8 Results: successfully catheterized-immediate flow Procedure performed: without complications Medical Decision Making Medical Decision Making MDM Narrative: Patient is an 84-year-old female past medical history of aortic stenosis, diabetes, MRSA, CAD, hypertension, hyperlipidemia, hypothyroidism, atrial fibrillation on Coumadin, CHF, CVA, neurogenic bladder with chronic suprapubic catheter for evaluation of lack of catheter output over the past 3 days as per HPI associated lower abdominal pain. Patient bladder scan did not reveal substantial injury bladder volume; 56 mL. Will obtain CBC to evaluate for leukocytosis/ anemia, CMP and lipase to evaluate for abnormal electrolytes /abnormal renal function/ abnormal hepatic/biliary function, plan to change her suprapubic catheter at this time, on examination and to have concern for infection there is mild surrounding erythema, active drainage from the insertion site in addition will obtain Urinalysis. Catheter was last changed 03/21/2025 through urology office, at that time was given 5 day course of Bactrim Differential Diagnosis Differential Diagnoses: The differential diagnosis associated with the presentation includes (UTI, pyelonephritis, DOROTHY on CKD) Admission/Observation Consideration of admission/observation: Escalation of care including admission/observation considered Consult Healthcare Provider Management of the patient was discussed with: Hospitalist (Admission to hospitalist service, spoke with Akiko NICHOLSON) Lab Data MDM Lab Attestation statement: I reviewed the patient's lab results. (See course narrative) 04/09/25 14:07 04/10/25 05:37 Labs: Lab Results 04/09/25 04/09/25 04/09/25 Range/Units 13:32 14:07 15:38 WBC 8.5 (4.8-10.8) X10*3/uL RBC 4.40 (4.20-5.50) X10*6/uL Hgb 12.6 (12.0-16.0) g/dl Hct 38.4 (37.0-47.0) % MCV 87.3 (80.0-98.0) fL MCH 28.6 (27.0-33.0) pg MCHC 32.8 (31.0-35.0) g/dl RDW 17.5 H (11.0-16.0) % Plt Count 280 (160-400) X10*3/uL MPV 8.8 L (9.4-12.3) fL Immature Gran % (Auto) 0.7 H (0.0-0.4) % Neut % (Auto) 48.6 (45-73) % Lymph % (Auto) 21.8 (20-40) % Pike % (Auto) 26.8 H (2-11) % Eos % (Auto) 1.6 (0-4) % Baso % (Auto) 0.5 (0-2) % Lymph # (Auto) 1.9 (1.2-4.9) X10*3/uL Pike # (Auto) 2.3 H (0.1-1.2) X10*3/uL Eos # (Auto) 0.1 (0.0-0.4) X10*3/uL Baso # (Auto) 0.0 (0.0-0.2) X10*3/uL Abs Immat Gran (auto) 0.06 H (0.00-0.03) X10*3/uL Absolute Neuts (auto) 4.2 (2.0-8.3) x10*3/uL Absolute Nucleated RBC 0.000 (0.0-0.012) X10*3/uL Nucleated RBC % (auto) 0.0 (0.0-0.2) /100WBC Smear Tech's Comments VERIFIED PT 30.8 H D (10.9-12.4) SEC INR 2.7 H D (0.9-1.1) Sodium 135 (135-145) mmol/L Potassium 5.1 (3.3-5.1) mmol/L Chloride 103 (96-108) mmol/L Carbon Dioxide 21 L (22-29) mmol/L Anion Gap 16 (12-20) BUN 60 H (9-16) mg/dL Creatinine 2.75 H (0.5-1.4) mg/dL Estim Creat Clear Calc 17.8 Estimated GFR 16 POC Glucose 170 H (60-115) mg/dL Random Glucose 154 H (60-115) mg/dL Lactic Acid 1.8 (0.5-2.0) mmol/L Calcium 9.1 (8.4-10.2) mg/dL Total Bilirubin 0.5 (0.0-1.0) mg/dL AST 21 (5-31) U/L ALT 11 (0-31) U/L Alkaline Phosphatase 133 H (39-117) U/L Total Protein 8.1 H (6.5-8.0) g/dL Albumin 3.5 (3.5-5.0) g/dL Urine Color Urine Appearance Urine pH (5.0-9.0) Ur Specific [place] (1.005-1.025) Urine Protein (Neg-Trace) mg/dL Urine Glucose (UA) (Negative) mg/dL Urine Ketones (Negative) mg/dL Urine Blood (Negative) Urine Nitrite (Negative) Ur Leukocyte Esterase (Negative) Urine RBC (0-2) /HPF Urine WBC (0-5) /HPF Ur Squamous Epith Cells (0-2) /HPF Urine Bacteria (None Seen) Hyaline Casts (0-2) /LPF 04/09/25 Range/Units 16:15 WBC (4.8-10.8) X10*3/uL RBC (4.20-5.50) X10*6/uL Hgb (12.0-16.0) g/dl Hct (37.0-47.0) % MCV (80.0-98.0) fL MCH (27.0-33.0) pg MCHC (31.0-35.0) g/dl RDW (11.0-16.0) % Plt Count (160-400) X10*3/uL MPV (9.4-12.3) fL Immature Gran % (Auto) (0.0-0.4) % Neut % (Auto) (45-73) % Lymph % (Auto) (20-40) % Pike % (Auto) (2-11) % Eos % (Auto) (0-4) % Baso % (Auto) (0-2) % Lymph # (Auto) (1.2-4.9) X10*3/uL Pike # (Auto) (0.1-1.2) X10*3/uL Eos # (Auto) (0.0-0.4) X10*3/uL Baso # (Auto) (0.0-0.2) X10*3/uL Abs Immat Gran (auto) (0.00-0.03) X10*3/uL Absolute Neuts (auto) (2.0-8.3) x10*3/uL Absolute Nucleated RBC (0.0-0.012) X10*3/uL Nucleated RBC % (auto) (0.0-0.2) /100WBC Smear Tech's Comments PT (10.9-12.4) SEC INR (0.9-1.1) Sodium (135-145) mmol/L Potassium (3.3-5.1) mmol/L Chloride (96-108) mmol/L Carbon Dioxide (22-29) mmol/L Anion Gap (12-20) BUN (9-16) mg/dL Creatinine (0.5-1.4) mg/dL Estim Creat Clear Calc Estimated GFR POC Glucose (60-115) mg/dL Random Glucose (60-115) mg/dL Lactic Acid (0.5-2.0) mmol/L Calcium (8.4-10.2) mg/dL Total Bilirubin (0.0-1.0) mg/dL AST (5-31) U/L ALT (0-31) U/L Alkaline Phosphatase (39-117) U/L Total Protein (6.5-8.0) g/dL Albumin (3.5-5.0) g/dL Urine Color Yellow Urine Appearance Turbid Urine pH 5.5 (5.0-9.0) Ur Specific [place] 1.010 (1.005-1.025) Urine Protein 300 (3+) H (Neg-Trace) mg/dL Urine Glucose (UA) Negative (Negative) mg/dL Urine Ketones Negative (Negative) mg/dL Urine Blood Large (3+) H (Negative) Urine Nitrite Negative (Negative) Ur Leukocyte Esterase Large (3+) H (Negative) Urine RBC >20 H (0-2) /HPF Urine WBC >50 H (0-5) /HPF Ur Squamous Epith Cells >20 (0-2) /HPF Urine Bacteria 4+ (None Seen) Hyaline Casts 0-2 (0-2) /LPF Independent Historian Clinical information obtained from an independent historian. History obtained from or confirmed by: Other (Daughter) External Record Review External record reviewed: Outpatient record Chronic Conditions Patient?s care impacted by: Other (See narrative above) Critical Care Time Critical Care Time Critical Care Time: Yes Total Critical Care Time: 35 Attestation: I personally attest to this critical care time spent taking care of the patient exclusive of all other billable procedures was approximately 35 minutes including initial evaluation of patient, ordering tests, morphine IV and re-evaluation, medical consultation, documentation, re-evaluation. Discharge Plan Discharge Clinical Impression: Acute UTI, Acute kidney injury superimposed on CKD Patient Disposition: Admitted As Inpatient Interventions: Admission Worksheet (ED) Last Done: 04/09/25 19:57 Discharge Date/Time: 04/09/25 20:45
[2025-04-09 13:45] LABS: Glucose, Whole Blood 170 mg/dL (60-115)
[2025-04-09 14:16] LABS: Basophils Percent Auto 0.5 % (0-2); Eosinophils Absolute Auto 0.1 X10*3/uL (0.0-0.4); Eosinophils Percent Auto 1.6 % (0-4); Hematocrit 38.4 % (37.0-47.0); Hemoglobin 12.6 g/dl (12.0-16.0); Imm Gran Abs Auto 0.06 X10*3/uL (0.00-0.03); Imm Gran Pct Auto 0.7 % (0.0-0.4); Lymphocytes Absolute Auto 1.9 X10*3/uL (1.2-4.9); Lymphocytes Percent Auto 21.8 % (20-40); MANUAL DIFF FLAG SCAN; Mean Corpuscular HGB Conc 32.8 g/dl (31.0-35.0); Mean Corpuscular Hemoglobin 28.6 pg (27.0-33.0); Mean Corpuscular Volume 87.3 fL (80.0-98.0); Mean Platelet Volume 8.8 fL (9.4-12.3); Monocytes Absolute Auto 2.3 X10*3/uL (0.1-1.2); Monocytes Percent Auto 26.8 % (2-11); Neutrophils Absolute Auto 4.2 x10*3/uL (2.0-8.3); Neutrophils Percent Auto 48.6 % (45-73); Platelet Count 280 X10*3/uL (160-400); Red Cell Distribution Width 17.5 % (11.0-16.0); SCAN SMEAR FLAG 1; White Blood Count 8.5 X10*3/uL (4.8-10.8)
[2025-04-09 14:30] LABS: INTERNATIONAL NORM RATIO 2.7 (0.9-1.1); Prothrombin Time 30.8 SEC (10.9-12.4)
[2025-04-09 14:32] LABS: Alanine Aminotransferase 11 U/L (0-31); Albumin Level 3.5 g/dL (3.5-5.0); Alkaline Phosphatase 133 U/L (39-117); Anion Gap 16 (12-20); Aspartate Amino Transferase 21 U/L (5-31); Bilirubin Total 0.5 mg/dL (0.0-1.0); Blood Urea Nitrogen 60 mg/dL (9-16); Calcium 9.1 mg/dL (8.4-10.2); Carbon Dioxide 21 mmol/L (22-29); Chloride 103 mmol/L (96-108); Creatinine Clr Calc Pharmacy 17.8; Estimated Glomerular Filt Rate 16; Glucose Random 154 mg/dL (60-115); Potassium 5.1 mmol/L (3.3-5.1); Sodium 135 mmol/L (135-145); Total Protein 8.1 g/dL (6.5-8.0)
[2025-04-09 14:34] LABS: SLIDE REVIEW VERIFIED
--- NOTE | 2025-04-09 14:50 | PC.NURSE ---
Spoke to Morgan in store room was informed by him that hospital or store room does not carry 20 ukrainian cath kit.
[2025-04-09] MEDS: 0.9 % Sodium Chloride 1,000 ML 999 ML IV (15:43)
[2025-04-09 16:09] LABS: Lactic Acid 1.8 mmol/L (0.5-2.0)
[2025-04-09] MEDS: Morphine Sulfate 2 MG/ML CARTRIDGE IVPUSH (16:09)
--- NOTE | 2025-04-09 16:29 | P.HPHOSP_ITS ---
History of Present Illness Date of Service: 04/09/25 Attending physician on admission: Ha Adame Chief Complaint: No urine output Pt is an 84-year-old female with a PMH significant for?chronic AFib on Coumadin, chronic systolic CHF (EF 51%), CAD, CKD 3, insulin-dependent type 2 diabetes, hypothyroidism, HTN, and neurogenic bladder with suprapubic catheter who presents to the ED with?lower abdominal pain and no output from suprapubic catheter for the past 3 days. Pt's suprapubic catheter not connected to a drainage bag, but rather is capped and pt will drain urine into either a bucket or urinal. Pt follows with Dr. Sharma in Urology and has her catheter replaced every 3 weeks in the office. Pt reports has had no drainage from the catheter tubing for the past 3 days and had associated lower abdominal pain during this time. Pt has noticed increased urine drainage from around catheter insertion site, though also reports this is chronic and has been ongoing as long as she has had the catheter. Also has had intermittent episodes of diarrhea for the past few weeks, with last episode 1-2 days ago. Has been eating and drinking normally. No fever. Denies nausea, vomiting. No chest pain/pressure, palpitations. Denies shortness or breath or difficulty breathing. In the ED pt was tachycardic up to 105, vitals otherwise stable. Labs were significant for BUN 60, creatinine 2.75 (previous 1.84), and mildly elevated alk-phos of 133. Otherwise grossly unremarkable. No leukocytosis. Stable H&H. No significant electrolyte abnormalities. Lactic acid WNL. INR therapeutic at 2.7. Pt was treated in the ED with morphine, IVF, and ceftriaxone. In the ED suprapubic catheter was replaced with thick, cloudy, and bloody drainage. Pt is admitted to the hospital for treatment and further evaluation of DOROTHY on CKD in the setting of blocked suprapubic catheter and likely acute UTI. Review of Systems 2 Review of Systems: Negative except for that which is stated in the HPI. [facility] Medical History Hydronephrosis determined by ultrasound Permanent atrial fibrillation DOROTHY (acute kidney injury) Atrial fibrillation Neuropathy Neurogenic bladder CVA (cerebral vascular accident) Shingles Elevated cholesterol Myocardial infarction MRSA infection Hip pain Leg wound, left Varicose vein of leg Osteoarthritis of right hip Current use of anticoagulant therapy Recurrent UTI Atrial fibrillation PAF (paroxysmal atrial fibrillation) Congestive heart failure Urinary incontinence Hypothyroidism Diabetes Hypertension CKD (chronic kidney disease) CAD (coronary artery disease) Hypotonic neurogenic bladder Family History Father Hx of angina pectoris Myocardial infarction Mother Ovarian cancer Stomach cancer Maternal Grandfather Hardening of the arteries of the heart Other Neurogenic bladder Surgical History History of left knee replacement History of right knee joint replacement H/O heart artery stent H/O nasal polypectomy History of tubal ligation History of tonsillectomy and adenoidectomy Hx of cholecystectomy Social History Household Members: Family Household Members Other:: daughter Housing: House Are you a primary student career development specialist to a significant other at home: No Do you presently have visiting nurse or other home services: Yes (meals on wheels 5 days) Alcohol intake: never Comment: [facility] [place] Patient Tobacco Use Status: Never used Tobacco Smoked in Last 30 Days: No Patient Interested in Nicotine Replacement: No Patient Given Instructions on How to Stop Smoking: No Second Hand Smoke Exposure: No Use of substances other than those prescribed or required for medical reasons: No Currently Displaying Signs/Symptoms of Drug Intoxication Withdrawal: No Have you been hit, kicked, punched, or otherwise hurt by someone within the past year? If so, by whom?: No Do you feel safe in your current relationship?: No Current Relationship Is there a partner from a previous relationship who is making you feel unsafe now?: No Are you made to feel afraid or neglected: No Confucianism Healthcare Practices: latter-day Advance Directives: Yes Advance Directives on File: Yes Advance Directives Date on File: 08/27/22 Do you have a plan to hurt others: No Plan Recently lost weight without trying: No Eating poorly because of decreased appetite: No Nutrition Risks: No Nutritional Risk Patient : No : No Poor oral hygiene: No service: No Current occupational status: retired Meds Allergies Allergy/AdvReac Type Severity Reaction Status Date / Time amox-clav Allergy Mild Rash Uncoded 04/09/25 13:29 Home Medications ?Medication ?Instructions ?Recorded ?Confirmed ?Last Taken ?Type levothyroxine 25 mcg tablet 25 mcg PO DAILY@0600 09/05/20 04/09/25 06/16/24 History pen needle, diabetic 32 gauge x #50 ea 12/31/21 03/30/25 06/16/24 History (BD Cathy 2nd Gen Pen Needle) multivitamin (One Daily 1 tab PO DAILY 09/15/22 04/09/25 06/16/24 History Multivitamin tablet) lancets 28 gauge (FreeStyle #100 ea 09/29/22 03/30/25 06/16/24 History Lancets) vitamins A,C,U-ordg-vonbpr 2,148 1 tab PO BIDWM 05/09/23 04/09/25 06/16/24 History mcg-113 mg-45 mg-17.4 mg tablet (PreserVision AREDS) amlodipine 5 mg tablet 5 mg PO DAILY 11/13/23 04/09/25 06/16/24 History furosemide 20 mg tablet 10 mg PO BID 06/17/24 04/09/25 06/16/24 History clopidogrel 75 mg tablet 75 mg PO DAILY 08/01/24 04/09/25 Unknown History latanoprost 0.005 % eye drops 1 drp ophthalmic (eye) BEDTIME 09/19/24 04/09/25 Unknown History warfarin 1 mg tablet 2 mg PO .COMPLEX 10/03/24 03/30/25 Unknown History insulin lispro 100 unit/mL See Protocol subcut BID 02/09/25 04/09/25 Unknown History subcutaneous pen (Humalog KwikPen (U-100) Insulin) melatonin 10 mg tablet 10 mg PO BEDTIME 04/09/25 04/09/25 Unknown History warfarin 1 mg tablet 1 mg PO SUTUTHSA 04/09/25 04/09/25 04/08/25 21:00 History warfarin 1 mg tablet 2 mg PO MOWEFR 04/09/25 04/09/25 Unknown History Physical Exam 2 Vital Signs and Narrative: Vital Signs: Last Vital Signs Temp 98.5 F 04/09/25 13:23 Pulse 105 H 04/09/25 15:46 Resp 18 04/09/25 16:09 BP 113/53 L 04/09/25 15:46 Pulse Ox 100 04/09/25 15:46 O2 Del Method Room Air 04/09/25 15:46 BMI result Body Mass Index 36.7 General: AOx3, no acute distress Resp: CTA bilaterally CVS: Irregularly irregular rhythm GI: +BS, no distention, suprapubic tenderness : Suprapubic catheter in place with urine drainage around tubing as well as scant amount of blood. Urine in tubing is thick, purulent, and with clots. Skin: Warm, dry Neuro: Cranial nerves II-XII grossly intact bilaterally. Motor grossly intact bilaterally. Global weakness noted. Extremities: Nonpitting lower leg edema Psych: Appropriate affect Results Labs 04/09/25 14:07 04/10/25 05:37 Labs: Laboratory Results - last 24 hr 04/09/25 04/09/25 04/09/25 13:32 14:07 15:38 MCV 87.3 MCH 28.6 MCHC 32.8 RDW 17.5 H Plt Count 280 MPV 8.8 L Immature Gran % (Auto) 0.7 H Neut % (Auto) 48.6 Lymph % (Auto) 21.8 [place] % (Auto) 26.8 H Eos % (Auto) 1.6 Baso % (Auto) 0.5 Lymph # (Auto) 1.9 [place] # (Auto) 2.3 H Eos # (Auto) 0.1 Baso # (Auto) 0.0 Abs Immat Gran (auto) 0.06 H Absolute Neuts (auto) 4.2 Absolute Nucleated RBC 0.000 Nucleated RBC % (auto) 0.0 Smear Tech's Comments VERIFIED PT 30.8 H D INR 2.7 H D Anion Gap 16 Estim Creat Clear Calc 17.8 Estimated GFR 16 POC Glucose 170 H Random Glucose 154 H Lactic Acid 1.8 Calcium 9.1 Total Bilirubin 0.5 AST 21 ALT 11 Alkaline Phosphatase 133 H Total Protein 8.1 H Albumin 3.5 Assessment and Plan (1) Acute kidney injury superimposed on chronic kidney disease: Status: Resolved Plan Pt is an 84-year-old female with a PMH significant for?chronic AFib on Coumadin, chronic systolic CHF (EF 51%), CAD, CKD 3, insulin-dependent type 2 diabetes, hypothyroidism, HTN, and neurogenic bladder with suprapubic catheter who presents to the ED with?lower abdominal pain and no output from suprapubic catheter for the past 3 days. Pt is admitted to the hospital for treatment and further evaluation of DOROTHY on CKD in the setting of blocked suprapubic catheter and likely acute UTI. DOROTHY on CKD 3 Creatinine 2.75 at time of presentation, elevated from previous of 1.84 Likely secondary to blocked suprapubic catheter and acute UTI Pt received IVF in the ED, will place on gentle maintenance fluids x1L Follow creatinine, consider nephrology consult if does not improve Suprapubic catheter Without drainage x3 days Replaced in the ED, currently draining well though with urine leaking around to being at insertion site Follows with Dr. Sharma in Urology, SPT changed every 3 weeks Urology consult for further evaluation Likely acute UTI Urine sample thick and cloudy, likely unable to run through analyzer Consider sending repeat urine for culture No sepsis: Tachycardia, but no fever, tachypnea, or leukocytosis; lactic acid WNL Pt with hx of urine with Pseudomonas and MRSA among others Will cover with broadly with cefepime and daptomycin, started 04/09/2025 ID consult Follow urine cultures Persistent AFib INR therapeutic at 2.7 Continue Coumadin Monitor INR HFrEF Not in acute exacerbation Continue metoprolol Hold home Lasix due to DOROTHY, resume as warranted Insulin-dependent type 2 diabetes Sliding-scale insulin, Lantus Continue Jardiance Diabetic diet Hypothyroidism Continue levothyroxine HTN Hold valsartan due to DOROTHY Continue amlodipine Full Code Attending:?Dr. Adame DVT Prophylaxis: On warfarin Pt will require a hospitalization of at least two nights for treatment of DOROTHY on CKD3 in the setting of block suprapubic catheter and likely acute UTI. Pt will require hospital level care for administration of IVF, close monitoring of electrolytes and kidney function, as well as specialist consultation with Urology. Quality Stroke Does the patient have a stroke diagnosis?: No VTE Prior VTE?: No VTE Risk Level:: Medical - moderate - high VTE Device Contraindication: Treatment Not Indicated VTE Drug Contraindication: N/A - Med Ordered
[2025-04-09] MEDS: cefTRIAXone sodium 1 GM VIAL IVPUSH (17:05)
--- NOTE | 2025-04-09 17:42 | PHA.MEDREC ---
Addendum entered by Ilana Castellon RPh 04/09/25 18:04: MED REC WAS REVIEWED BY [facility]. Original Note: Pharmacy Consult ? Medication Reconciliation Pharmacy has completed the medication reconciliation. Spoke with patients daughter at bedside to confirm medications. She had a list from home that we went over together. Furosemide and valsartan are both 1/2 tab bid. Lantus is 25 units at bedtime and lispro is SS bid. Daughter says she does not give lispro with meals and only gives based on SS when they check her sugars in the morning and at night. She confirmed warfarin is 2 mg MWF and 1 mg is on the rest of the days. She last received 1 mg yesterday around 9 PM. She is no longer taking baby aspirin, methanimine, colchicine, or ketoconazole cream. She did not take any medications today.
[2025-04-09 18:19] LABS: Appearance Urine Turbid; Color Urine Yellow; Glucose Urine UA Negative (Negative); Leukocyte Esterase Urine Large (3+) (Negative); Nitrite Urine Negative (Negative); PH 5.5 (5.0-9.0); UMIC TRIGGER UACC YES; Urine Blood Large (3+) (Negative); Urine Ketones Negative (Negative); Urine Protein 300 (3+) mg/dL (Neg-Trace)
[2025-04-09 18:30] LABS: Bacteria Urine 4+ (None Seen); Hyaline Casts Urine 0-2 /LPF (0-2); RBC Urine >20 /HPF (0-2); Squamous Epithelial Cell Urine >20 /HPF (0-2); UACC Culture Trigger YES; WBC Urine >50 /HPF (0-5)
[2025-04-09] MEDS: 0.9 % Sodium Chloride 1,000 ML 80 ML IVCONT (18:38)
[2025-04-09] MEDS: cefEPime HCl 1 GM in 0.9 % Sodium Chloride 50 ML IV (18:45)
[2025-04-09] MEDS: Warfarin Sodium 1 MG TABLET PO (19:17)
[2025-04-09] MEDS: DAPTOmycin 450 MG in 0.9 % Sodium Chloride 50 ML 95.16 MG IV (19:18)
[2025-04-09] MEDS: oxyCODONE HCl Immed Release 5 MG TABLET PO (19:25)
[2025-04-09 21:06] LABS: Glucose, Whole Blood 105 mg/dL (60-115)
[2025-04-09] MEDS: Insulin Glargine,Hum.rec.anlog 100 UNIT/ML 10 ML VIAL 18 UNIT SUBCUT (21:56)
[2025-04-09] MEDS: Atorvastatin Calcium 10 MG TABLET PO (21:56)
[2025-04-10] MEDS: oxyCODONE HCl Immed Release 5 MG TABLET PO ×3 (01:49→20:42)
[2025-04-10] MEDS: Acetaminophen 325 MG TABLET 650 MG PO (01:49)
[2025-04-10 04:00] VITALS: BP 109/57; PULSE 101; RESP 17; TEMP 36.2; O2SAT 94
[2025-04-10] MEDS: Levothyroxine Sodium 25 MCG TABLET PO (05:56)
[2025-04-10 06:13] LABS: INTERNATIONAL NORM RATIO 2.9 (0.9-1.1); Prothrombin Time 32.9 SEC (10.9-12.4)
[2025-04-10 06:21] LABS: Anion Gap 14 (12-20); Blood Urea Nitrogen 48 mg/dL (9-16); Calcium 8.3 mg/dL (8.4-10.2); Carbon Dioxide 23 mmol/L (22-29); Chloride 107 mmol/L (96-108); Creatinine Clr Calc Pharmacy 19.2; Estimated Glomerular Filt Rate 21; Glucose Random 87 mg/dL (60-115); Potassium 4.7 mmol/L (3.3-5.1); Sodium 139 mmol/L (135-145)
[2025-04-10 07:23] LABS: Glucose, Whole Blood 72 mg/dL (60-115)
[2025-04-10 07:41] VITALS: BP 130/73; PULSE 97; RESP 16; TEMP 36; O2SAT 96
[2025-04-10] MEDS: Mirabegron 25 MG TAB.ER.24H PO (08:51)
[2025-04-10] MEDS: Clopidogrel Bisulfate 75 MG TABLET PO (08:51)
[2025-04-10] MEDS: Multivitamin TABLET 1 TAB PO (08:51)
[2025-04-10] MEDS: Ascorbic Acid 500 MG TABLET 1000 MG PO (08:51)
[2025-04-10] MEDS: Metoprolol Succinate ER 100 MG TAB.ER.24H 200 MG PO (08:51)
[2025-04-10] MEDS: amLODIPine Besylate 5 MG TABLET PO (08:51)
[2025-04-10] MEDS: Empagliflozin 10 MG TABLET PO (08:51)
[2025-04-10] MEDS: 0.9 % Sodium Chloride Flush 3 ML SYRINGE IVFLUSH ×2 (08:55→23:40)
[2025-04-10] MEDS: Lactated Ringers 1,000 ML 100 ML IVCONT (09:53)
--- NOTE | 2025-04-10 09:54 | MHC.CM.PN ---
IMM delivered. Patient lives in a home w/ adult son and daughter. Independent w/ ADL's at times, daughter assists PRN. Ambulates w/ rollator. Suprapubic cath managed by Dr. Crews - changed in office [id number]. Previously active w/ [email or web address] for SN, but reports she was dc'd months ago from services. PCP Nano Delaney MD HCP on file and verified. DP: Goal is STR. No facility preference. If home w/ services, would like [facility] again. [facility]
--- NOTE | 2025-04-10 10:23 | P.PNIM_ITS ---
Subjective Subjective Date of Service: 04/10/25 Interval History: c/o lower abd pain; generalized weakness Review of Systems Review of Systems: Yes all other systems are reviewed and are negative Physical Exam 2 Vital Signs: Vital Signs: Last Vital Signs Temp 96.8 F 04/10/25 07:41 Pulse 97 04/10/25 07:41 Resp 16 04/10/25 07:41 BP 130/73 04/10/25 07:41 Pulse Ox 96 04/10/25 07:41 O2 Del Method Room Air 04/10/25 07:41 BMI result Body Mass Index 28.7 Gen: in no acute distress HEENT: sclera anicteric, moist mucus membranes Neck: supple Lungs: clear to auscultation bilaterally Heart: irregular, no murmurs Abd: soft, non-tender, non-distended : SPC with urine leaking around tube, macerated skin Ext: 1+ bilatera leg edema Skin: warm/well-perfused Neuro: alert and oriented x3, no focal findings Psych: appropriate affect Objective Data Active Medications Acetaminophen (Acetaminophen 325 Mg Tablet) 650 mg PO Q6H PRN PRN Reason: Pain, Mild 1-3,fever,headache Last Admin: 04/10/25 01:49 Dose: 650 mg Documented By: ANGELA Amlodipine Besylate (Amlodipine Besylate 5 Mg Tablet) 5 mg PO DAILY [facility]; Protocol Last Admin: 04/10/25 08:51 Dose: 5 mg Documented By: CHICHO Ascorbic Acid (Ascorbic Acid 500 Mg Tablet) 1,000 mg PO DAILY [facility] Last Admin: 04/10/25 08:51 Dose: 1,000 mg Documented By: CHICHO Atorvastatin Calcium (Atorvastatin Calcium 10 Mg Tablet) 10 mg PO BEDTIME [facility] Last Admin: 04/09/25 21:56 Dose: 10 mg Documented By: ANGELA Calcium Carbonate (Calcium Carbonate 750 Mg Tab.Chew) 750 mg PO Q4H PRN PRN Reason: Heartburn Clopidogrel Bisulfate (Clopidogrel Bisulfate 75 Mg Tablet) 75 mg PO DAILY [facility] Last Admin: 04/10/25 08:51 Dose: 75 mg Documented By: CHICHO Dextrose (Dextrose 50 % 25 Gm/50 Ml Syringe) 25 gm IVPUSH Q15M PRN; Protocol PRN Reason: per Hypoglycemia Standing Ord. Empagliflozin (Empagliflozin 10 Mg Tablet) 10 mg PO DAILY [facility] Last Admin: 04/10/25 08:51 Dose: 10 mg Documented By: CHICHO Glucose (Glucose Gel 15 Gm Gel..Gram.) 15 gm PO Q15M PRN; Protocol PRN Reason: per Hypoglycemia Standing Ord. Cefepime HCl 1 gm/ Sodium (Chloride) 50 mls @ 100 mls/hr IV Q24H [facility] Last Infusion: 04/09/25 19:15 Dose: Infused Documented By: FRENCH Daptomycin 450 mg/ Sodium (Chloride) 59 mls @ 95.161 mls/hr IV Q48H [facility] Last Infusion: 04/09/25 19:56 Dose: Infused Documented By: FRENCH Lactated Ringer's (Lr) 1,000 mls @ 100 mls/hr IVCONT .Q10H [facility] Last Admin: 04/10/25 09:53 Dose: 100 mls/hr Documented By: CHICHO Insulin Glargine (Insulin Glargine,Hum.Rec.Anlog 100 Unit/Ml 10 Ml Vial) 18 unit SUBCUT BEDTIME [facility] Last Admin: 04/09/25 21:56 Dose: 18 unit Documented By: ANGELA Insulin Human Lispro (Insulin Lispro 100 Unit/Ml 3 Ml Vial) 0 unit SUBCUT QIDACHS [facility]; Protocol Last Admin: 04/10/25 07:25 Dose: Not Given Documented By: CHICHO Non-Admin Reason: No Insulin Coverage Latanoprost (Latanoprost 0.005 % Ophth [place] 2.5 Ml Drops) 1 drop EYE-BOTH BEDTIME [facility] Last Admin: 04/09/25 22:07 Dose: Not Given Documented By: ANGELA Non-Admin Reason: Med Not Available Levothyroxine Sodium (Levothyroxine Sodium 25 Mcg Tablet) 25 mcg PO DAILY@0600 [facility] Last Admin: 04/10/25 05:56 Dose: 25 mcg Documented By: ANGELA Magnesium Hydroxide (Milk Of Magnesia 30 Ml Oral.Susp) 30 ml PO DAILY PRN PRN Reason: Constipation Melatonin (Melatonin 3 Mg Tablet) 6 mg PO BEDTIME PRN PRN Reason: Insomnia Metoprolol Succinate (Metoprolol Succinate Er 100 Mg Tab.Er.24h) 200 mg PO DAILY [facility]; Protocol Last Admin: 04/10/25 08:51 Dose: 200 mg Documented By: CHICHO Mirabegron (Mirabegron 25 Mg Tab.Er.24h) 25 mg PO DAILY [facility] Last Admin: 04/10/25 08:51 Dose: 25 mg Documented By: CHICHO Multivitamins/Vitamin C (Multivitamin Tablet) 1 tab PO DAILY [facility] Last Admin: 04/10/25 08:51 Dose: 1 tab Documented By: CHICHO Ondansetron HCl (Ondansetron Hcl 4 Mg/2 Ml Vial) 4 mg IVPUSH Q8H PRN PRN Reason: Nausea and Vomiting Oxycodone HCl (Oxycodone Hcl Immed Release 5 Mg Tablet) 5 mg PO Q6H PRN PRN Reason: Pain, Severe (Pain Scale 7-10) Last Admin: 04/10/25 08:55 Dose: 5 mg Documented By: CHICHO Sodium Chloride (0.9 % Sodium Chloride Flush 3 Ml Syringe) 3 ml IVFLUSH QSHIFT [facility] Last Admin: 04/10/25 08:55 Dose: 3 ml Documented By: CHICHO Warfarin Sodium (Warfarin Sodium 1 Mg Tablet) 1 mg PO [email or web address]@1800 [facility] Last Admin: 04/09/25 19:17 Dose: 1 mg Documented By: FRENCH Warfarin Sodium (Warfarin Sodium 2 Mg Tablet) 2 mg PO [email or web address]@1800 [facility] Labs 04/09/25 14:07 04/10/25 05:37 Labs: Laboratory Results - last 24 hr 04/09/25 04/09/25 04/09/25 13:32 14:07 15:38 MCV 87.3 MCH 28.6 MCHC 32.8 RDW 17.5 H Plt Count 280 MPV 8.8 L Immature Gran % (Auto) 0.7 H Neut % (Auto) 48.6 Lymph % (Auto) 21.8 [place] % (Auto) 26.8 H Eos % (Auto) 1.6 Baso % (Auto) 0.5 Lymph # (Auto) 1.9 [place] # (Auto) 2.3 H Eos # (Auto) 0.1 Baso # (Auto) 0.0 Abs Immat Gran (auto) 0.06 H Absolute Neuts (auto) 4.2 Absolute Nucleated RBC 0.000 Nucleated RBC % (auto) 0.0 Smear Tech's Comments VERIFIED Hold Purple Top PT 30.8 H D INR 2.7 H D Anion Gap 16 Estim Creat Clear Calc 17.8 Estimated GFR 16 POC Glucose 170 H Random Glucose 154 H Lactic Acid 1.8 Calcium 9.1 Total Bilirubin 0.5 AST 21 ALT 11 Alkaline Phosphatase 133 H Total Protein 8.1 H Albumin 3.5 Urine Color Urine Appearance Urine pH Ur Specific [place] Urine Protein Urine Glucose (UA) Urine Ketones Urine Blood Urine Nitrite Ur Leukocyte Esterase Urine RBC Urine WBC Ur Squamous Epith Cells Urine Bacteria Hyaline Casts 04/09/25 04/09/25 04/10/25 16:15 20:56 05:37 MCV MCH MCHC RDW Plt Count MPV Immature Gran % (Auto) Neut % (Auto) Lymph % (Auto) [place] % (Auto) Eos % (Auto) Baso % (Auto) Lymph # (Auto) [place] # (Auto) Eos # (Auto) Baso # (Auto) Abs Immat Gran (auto) Absolute Neuts (auto) Absolute Nucleated RBC Nucleated RBC % (auto) Smear Tech's Comments Hold Purple Top SEE NOTE PT 32.9 H INR 2.9 H Anion Gap 14 Estim Creat Clear Calc 19.2 Estimated GFR 21 POC Glucose 105 Random Glucose 87 Lactic Acid Calcium 8.3 L D Total Bilirubin AST ALT Alkaline Phosphatase Total Protein Albumin Urine Color Yellow Urine Appearance Turbid Urine pH 5.5 Ur Specific [place] 1.010 Urine Protein 300 (3+) H Urine Glucose (UA) Negative Urine Ketones Negative Urine Blood Large (3+) H Urine Nitrite Negative Ur Leukocyte Esterase Large (3+) H Urine RBC >20 H Urine WBC >50 H Ur Squamous Epith Cells >20 Urine Bacteria 4+ Hyaline Casts 0-2 04/10/25 07:19 MCV MCH MCHC RDW Plt Count MPV Immature Gran % (Auto) Neut % (Auto) Lymph % (Auto) [place] % (Auto) Eos % (Auto) Baso % (Auto) Lymph # (Auto) [place] # (Auto) Eos # (Auto) Baso # (Auto) Abs Immat Gran (auto) Absolute Neuts (auto) Absolute Nucleated RBC Nucleated RBC % (auto) Smear Tech's Comments Hold Purple Top PT INR Anion Gap Estim Creat Clear Calc Estimated GFR POC Glucose 72 Random Glucose Lactic Acid Calcium Total Bilirubin AST ALT Alkaline Phosphatase Total Protein Albumin Urine Color Urine Appearance Urine pH Ur Specific [place] Urine Protein Urine Glucose (UA) Urine Ketones Urine Blood Urine Nitrite Ur Leukocyte Esterase Urine RBC Urine WBC Ur Squamous Epith Cells Urine Bacteria Hyaline Casts Assessment and Plan (1) Acute kidney injury superimposed on CKD: Status: Acute (2) Acute UTI: Status: Acute (3) Suprapubic catheter: Status: Acute Plan d2 for 84yo F with chronic AF on warfarin, chronic HF with mildly reduced EF, CAD, CKD3, DM2, hypothyroidism, HTN, and neurogenic bladder with SPC presenting with abd pain and no output from SPC for 3d, found to have blocked SPC, UTI, and DOROTHY DOROTHY/CKD3 - likely prerenal, improving, hold furosemide + valsartan; continue isotonic IV fluid with caution given HF, repeat BMP tomorrow, baseline Cr around 1.8-1.9 blocked SPC - replaced in ED and draining well though with urine leaking around insertion site and skin maceration; will consult Urology and Wound Care complicated UTI associated with SPC - history of Pseudomonas, MRSA, Achromobacter, and MRSA so covering broadly with daptomycin and cefepime, renally dosed; ID consult pending; follow UCx and BCx chronic AF - continue warfarin; INR 2.9 today; monitor daily - continue metoprolol succinate CAD - continue clopidogrel + atorvastatin chronic HF with mildly reduced EF - continue metoprolol succinate + amlodipine + empagliflozin; hold furosemide + valsartan DM2 - basal-bolus insulin, empagliflozin hypothyroidism - continue LT4 VTE ppx - enoxaparin dispo - PT eval In my clinical judgment, the patient requires continued inpatient hospitalization for the following reasons: DOROTHY, IV ABX, IV fluids, specialist consultation Total time managing care of this patient today: 45 minutes. Quality Stroke Does the patient have a stroke diagnosis?: No VTE Prior VTE?: No VTE Risk Level:: Medical - moderate - high VTE Device Contraindication: Treatment Not Indicated VTE Drug Contraindication: N/A - Med Ordered
[2025-04-10 11:16] LABS: Glucose, Whole Blood 114 mg/dL (60-115)
[2025-04-10 15:23] VITALS: BP 103/65; PULSE 66; RESP 16; TEMP 36.4; O2SAT 98
--- NOTE | 2025-04-10 15:36 | W.PM.IDCN ---
History of Present Illness Data of Consult Service Date: 04/10/25 Requesting physician: Ha Adame Primary Care Provider: MD ELBA Owens Reason for consult: suprapubic Healy leakage She presents with urine leakage around suprapubic catheter. Now there is some maceration around insertion site. She reports being on antibiotics several weeks ago. She has no abdominal pain,fever,or hematuria. She has had some chills earlier. Urine culture contamination. Review of Systems Review of Systems: Yes all other systems are reviewed and are negative [facility] Past Medical History Medical History Hydronephrosis determined by ultrasound Permanent atrial fibrillation DOROTHY (acute kidney injury) Atrial fibrillation Neuropathy Neurogenic bladder CVA (cerebral vascular accident) Shingles Elevated cholesterol Myocardial infarction MRSA infection Hip pain Leg wound, left Varicose vein of leg Osteoarthritis of right hip Current use of anticoagulant therapy Recurrent UTI Atrial fibrillation PAF (paroxysmal atrial fibrillation) Congestive heart failure Urinary incontinence Hypothyroidism Diabetes Hypertension CKD (chronic kidney disease) CAD (coronary artery disease) Hypotonic neurogenic bladder Family History Family History Father Hx of angina pectoris Myocardial infarction Mother Ovarian cancer Stomach cancer Maternal Grandfather Hardening of the arteries of the heart Other Neurogenic bladder Family history: reviewed and not pertinent Surgical History Surgical History History of left knee replacement History of right knee joint replacement H/O heart artery stent H/O nasal polypectomy History of tubal ligation History of tonsillectomy and adenoidectomy Hx of cholecystectomy Social History Social History Household Members: Family Household Members Other:: daughter Housing: House Are you a primary health care / medical job titles to a significant other at home: No Do you presently have visiting nurse or other home services: Yes (meals on wheels 5 days) Alcohol intake: never Comment: [facility] [place] Patient Tobacco Use Status: Never used Tobacco Smoked in Last 30 Days: No Patient Interested in Nicotine Replacement: No Patient Given Instructions on How to Stop Smoking: No Second Hand Smoke Exposure: No Use of substances other than those prescribed or required for medical reasons: No Currently Displaying Signs/Symptoms of Drug Intoxication Withdrawal: No Have you been hit, kicked, punched, or otherwise hurt by someone within the past year? If so, by whom?: No Do you feel safe in your current relationship?: No Current Relationship Is there a partner from a previous relationship who is making you feel unsafe now?: No Are you made to feel afraid or neglected: No Sabianism Healthcare Practices: mosque Advance Directives: Yes Advance Directives on File: Yes Advance Directives Date on File: 08/27/22 Do you have a plan to hurt others: No Plan Recently lost weight without trying: No Eating poorly because of decreased appetite: No Nutrition Risks: No Nutritional Risk Patient : No : No Poor oral hygiene: No service: No Current occupational status: retired [employer] Allergies Allergy/AdvReac Type Severity Reaction Status Date / Time amox-clav Allergy Mild Rash Uncoded 04/09/25 13:29 Active Medications: Current Medications Acetaminophen (Acetaminophen 325 Mg Tablet) 650 mg PO Q6H PRN PRN Reason: Pain, Mild 1-3,fever,headache Last Admin: 04/10/25 01:49 Dose: 650 mg Amlodipine Besylate (Amlodipine Besylate 5 Mg Tablet) 5 mg PO DAILY [facility]; Protocol Last Admin: 04/10/25 08:51 Dose: 5 mg Ascorbic Acid (Ascorbic Acid 500 Mg Tablet) 1,000 mg PO DAILY [facility] Last Admin: 04/10/25 08:51 Dose: 1,000 mg Atorvastatin Calcium (Atorvastatin Calcium 10 Mg Tablet) 10 mg PO BEDTIME [facility] Last Admin: 04/09/25 21:56 Dose: 10 mg Calcium Carbonate (Calcium Carbonate 750 Mg Tab.Chew) 750 mg PO Q4H PRN PRN Reason: Heartburn Clopidogrel Bisulfate (Clopidogrel Bisulfate 75 Mg Tablet) 75 mg PO DAILY [facility] Last Admin: 04/10/25 08:51 Dose: 75 mg Dextrose (Dextrose 50 % 25 Gm/50 Ml Syringe) 25 gm IVPUSH Q15M PRN; Protocol PRN Reason: per Hypoglycemia Standing Ord. Empagliflozin (Empagliflozin 10 Mg Tablet) 10 mg PO DAILY [facility] Last Admin: 04/10/25 08:51 Dose: 10 mg Glucose (Glucose Gel 15 Gm Gel..Gram.) 15 gm PO Q15M PRN; Protocol PRN Reason: per Hypoglycemia Standing Ord. Cefepime HCl 1 gm/ Sodium (Chloride) 50 mls @ 100 mls/hr IV Q24H [facility] Last Infusion: 04/09/25 19:15 Dose: Infused Daptomycin 450 mg/ Sodium (Chloride) 59 mls @ 95.161 mls/hr IV Q48H [facility] Last Infusion: 04/09/25 19:56 Dose: Infused Lactated Ringer's (Lr) 1,000 mls @ 100 mls/hr IVCONT .Q10H [facility] Stop: 04/10/25 18:59 Last Admin: 04/10/25 09:53 Dose: 100 mls/hr Insulin Glargine (Insulin Glargine,Hum.Rec.Anlog 100 Unit/Ml 10 Ml Vial) 18 unit SUBCUT BEDTIME [facility] Last Admin: 04/09/25 21:56 Dose: 18 unit Insulin Human Lispro (Insulin Lispro 100 Unit/Ml 3 Ml Vial) 0 unit SUBCUT QIDACHS [facility]; Protocol Last Admin: 04/10/25 14:08 Dose: Not Given Latanoprost (Latanoprost 0.005 % Ophth [place] 2.5 Ml Drops) 1 drop EYE-BOTH BEDTIME [facility] Last Admin: 04/09/25 22:07 Dose: Not Given Levothyroxine Sodium (Levothyroxine Sodium 25 Mcg Tablet) 25 mcg PO DAILY@0600 [facility] Last Admin: 04/10/25 05:56 Dose: 25 mcg Magnesium Hydroxide (Milk Of Magnesia 30 Ml Oral.Susp) 30 ml PO DAILY PRN PRN Reason: Constipation Melatonin (Melatonin 3 Mg Tablet) 6 mg PO BEDTIME PRN PRN Reason: Insomnia Metoprolol Succinate (Metoprolol Succinate Er 100 Mg Tab.Er.24h) 200 mg PO DAILY [facility]; Protocol Last Admin: 04/10/25 08:51 Dose: 200 mg Mirabegron (Mirabegron 25 Mg Tab.Er.24h) 25 mg PO DAILY [facility] Last Admin: 04/10/25 08:51 Dose: 25 mg Multivitamins/Vitamin C (Multivitamin Tablet) 1 tab PO DAILY [facility] Last Admin: 04/10/25 08:51 Dose: 1 tab Ondansetron HCl (Ondansetron Hcl 4 Mg/2 Ml Vial) 4 mg IVPUSH Q8H PRN PRN Reason: Nausea and Vomiting Oxycodone HCl (Oxycodone Hcl Immed Release 5 Mg Tablet) 5 mg PO Q6H PRN PRN Reason: Pain, Severe (Pain Scale 7-10) Last Admin: 04/10/25 08:55 Dose: 5 mg Sodium Chloride (0.9 % Sodium Chloride Flush 3 Ml Syringe) 3 ml IVFLUSH QSHIFT [facility] Last Admin: 04/10/25 08:55 Dose: 3 ml Warfarin Sodium (Warfarin Sodium 1 Mg Tablet) 1 mg PO SuTuThSa@1800 [facility] Last Admin: 04/09/25 19:17 Dose: 1 mg Warfarin Sodium (Warfarin Sodium 2 Mg Tablet) 2 mg PO MoWeFr@1800 [facility] Home Medications ?Medication ?Instructions ?Recorded ?Confirmed ?Last Taken ?Type levothyroxine 25 mcg tablet 25 mcg PO DAILY@0600 09/05/20 04/09/25 06/16/24 History pen needle, diabetic 32 gauge x #50 ea 12/31/21 03/30/25 06/16/24 History (BD Cathy 2nd Gen Pen Needle) multivitamin (One Daily 1 tab PO DAILY 09/15/22 04/09/25 06/16/24 History Multivitamin tablet) lancets 28 gauge (FreeStyle #100 ea 09/29/22 03/30/25 06/16/24 History Lancets) vitamins A,C,H-efuw-xxbawt 2,148 1 tab PO BIDWM 05/09/23 04/09/25 06/16/24 History mcg-113 mg-45 mg-17.4 mg tablet (PreserVision AREDS) amlodipine 5 mg tablet 5 mg PO DAILY 11/13/23 04/09/25 06/16/24 History furosemide 20 mg tablet 10 mg PO BID 06/17/24 04/09/25 06/16/24 History clopidogrel 75 mg tablet 75 mg PO DAILY 08/01/24 04/09/25 Unknown History latanoprost 0.005 % eye drops 1 drp ophthalmic (eye) BEDTIME 09/19/24 04/09/25 Unknown History warfarin 1 mg tablet 2 mg PO .COMPLEX 10/03/24 03/30/25 Unknown History insulin lispro 100 unit/mL See Protocol subcut BID 02/09/25 04/09/25 Unknown History subcutaneous pen (Humalog KwikPen (U-100) Insulin) melatonin 10 mg tablet 10 mg PO BEDTIME 04/09/25 04/09/25 Unknown History warfarin 1 mg tablet 1 mg PO SUTUTHSA 04/09/25 04/09/25 04/08/25 21:00 History warfarin 1 mg tablet 2 mg PO MOWEFR 04/09/25 04/09/25 Unknown History Physical Exam Vital Signs: Vital Signs: Last Vital Signs Temp 97.6 F 04/10/25 15:23 Pulse 66 04/10/25 15:23 Resp 16 04/10/25 15:23 BP 103/65 04/10/25 15:23 Pulse Ox 98 04/10/25 15:23 O2 Del Method Room Air 04/10/25 15:23 BMI result Body Mass Index 28.7 Const: General: cooperative HEENT: Head: Yes normal to inspection Face and sinus: Yes normal facial exam Mouth: Normal oral and palatal mucosa present Teeth and gingiva: dentition normal Eyes: General: appearance normal, both eyes and all related structures Pupils: Equal, round and reactive pupils present Resp: Effort & Inspection: normal respiratory effort Cardio: Rate: regular rate Rhythm: regular rhythm GI: Palpation (GI): Soft to palpation and nontender : General: Yes no CVA tenderness Back/Spine/Pelvis: Back: no CVA tenderness Skin: Other: skin irritation around Healy Neuro: General: moves all extremities Cranial nerves: Yes Equal, round and reactive pupils present Extrem: General: Yes normal to inspection Psych: Appearance: grossly normal Results Labs 04/09/25 14:07 04/10/25 05:37 Labs: BMP 04/10/25 05:37 Sodium 139 Potassium 4.7 Chloride 107 Carbon Dioxide 23 BUN 48 H Creatinine 2.25 H Calcium 8.3 L D Urine 04/09/25 Range/Units 16:15 Urine Color Yellow Urine Appearance Turbid Urine pH 5.5 (5.0-9.0) Ur Specific [place] 1.010 (1.005-1.025) Urine Protein 300 (3+) H (Neg-Trace) mg/dL Urine Glucose (UA) Negative (Negative) mg/dL Microbiology Microbiology Results: Microbiology 04/09/25 16:15 Urine Catheterized - Straight Catheter Urine Culture - Final Assessment and Plan (1) Acute kidney injury superimposed on CKD: Status: Acute Plan She has some skin irritation but doesnt look infected. She has contamination urine. She has no hematuria,fever or chills so would give po Doxycycline or Augmentin skin irritation and stop IV antibiotics if not bacteremic.
[2025-04-10 16:15] LABS: Glucose, Whole Blood 146 mg/dL (60-115)
[2025-04-10] MEDS: Warfarin Sodium 2 MG TABLET PO (17:32)
[2025-04-10] MEDS: cefEPime HCl 1 GM in 0.9 % Sodium Chloride 50 ML IV (18:57)
[2025-04-10 19:31] VITALS: BP 117/55; PULSE 95; RESP 18; TEMP 36.8; O2SAT 97
[2025-04-10 20:14] LABS: Glucose, Whole Blood 205 mg/dL (60-115)
[2025-04-10] MEDS: Insulin Glargine,Hum.rec.anlog 100 UNIT/ML 10 ML VIAL 18 UNIT SUBCUT (20:27)
[2025-04-10] MEDS: Atorvastatin Calcium 10 MG TABLET PO (20:27)
[2025-04-10] MEDS: Melatonin 3 MG TABLET 6 MG PO (20:27)
[2025-04-10] MEDS: Insulin Lispro 100 UNIT/ML 3 ML VIAL SUBCUT (20:27)
[2025-04-10] MEDS: Latanoprost 0.005 % Ophth Sol 2.5 ML DROPS 1 DROP EYE-BOTH (21:57)
[2025-04-11] VITALS (8 sets, daily range): BP systolic 98–143; BP diastolic 55–73; PULSE 88–110; RESP 16–18; TEMP 36–37; O2SAT 95–97
[2025-04-11] MEDS: Levothyroxine Sodium 25 MCG TABLET PO (05:21)
[2025-04-11 07:15] LABS: INTERNATIONAL NORM RATIO 3.1 (0.9-1.1); Prothrombin Time 35.5 SEC (10.9-12.4)
[2025-04-11 07:33] LABS: Anion Gap 12 (12-20); Blood Urea Nitrogen 42 mg/dL (9-16); Calcium 8.7 mg/dL (8.4-10.2); Carbon Dioxide 23 mmol/L (22-29); Chloride 108 mmol/L (96-108); Creatinine Clr Calc Pharmacy 20.6; Estimated Glomerular Filt Rate 22; Glucose Random 76 mg/dL (60-115); Potassium 5.2 mmol/L (3.3-5.1); Sodium 138 mmol/L (135-145)
[2025-04-11 07:36] LABS: Glucose, Whole Blood 82 mg/dL (60-115)
[2025-04-11 08:39] LABS: B Type Natriuretic Peptide 356 pg/mL (<100)
[2025-04-11] MEDS: Clopidogrel Bisulfate 75 MG TABLET PO (09:11)
[2025-04-11] MEDS: amLODIPine Besylate 5 MG TABLET PO (09:12)
[2025-04-11] MEDS: Empagliflozin 10 MG TABLET PO (09:12)
[2025-04-11] MEDS: Multivitamin TABLET 1 TAB PO (09:12)
[2025-04-11] MEDS: Metoprolol Succinate ER 100 MG TAB.ER.24H 200 MG PO (09:14)
[2025-04-11] MEDS: Sodium Zirconium Cyclosilicate 5 GM POWD.PACK PO (09:15)
[2025-04-11] MEDS: Ascorbic Acid 500 MG TABLET 1000 MG PO (09:15)
[2025-04-11] MEDS: Mirabegron 25 MG TAB.ER.24H PO (09:15)
[2025-04-11] MEDS: 0.9 % Sodium Chloride Flush 3 ML SYRINGE IVFLUSH (09:15)
--- NOTE | 2025-04-11 10:28 | HO.SKINPHOTO ---
Location: Buttock Treatment: Barrier cream and foam dressing applied, off loaded with pillows. waffle cushion used on chair. Location: Right Heel Foam dressing applied, floating heels.
[2025-04-11 11:01] LABS: Glucose, Whole Blood 152 mg/dL (60-115)
--- NOTE | 2025-04-11 11:04 | HO.PM.IMPN ---
Subjective Subjective Date of Service: 04/11/25 Interval History: c/o L foot discoloration, cool to touch abd pain improved no fever weakness improved no fever/chills no chest pain/dyspnea Review of Systems Review of Systems: Yes all other systems are reviewed and are negative Physical Exam Vital Signs: Vital Signs: Last Vital Signs Temp 96.8 F 04/11/25 07:54 Pulse 101 H 04/11/25 11:00 Resp 16 04/11/25 07:54 BP 128/55 L 04/11/25 11:00 Pulse Ox 96 04/11/25 07:54 O2 Del Method Room Air 04/11/25 07:54 BMI result Body Mass Index 28.7 Gen: in no acute distress HEENT: sclera anicteric, moist mucus membranes Neck: supple Lungs: clear to auscultation bilaterally Heart: irregular, no murmurs Abd: soft, non-tender, non-distended : SPC with urine leaking around tube, macerated skin Ext: trace bilateral leg edema Skin: L foot with some purplish discoloration, cool to touch, pulses nonpalpable Neuro: alert and oriented x3, no focal findings Psych: appropriate affect Objective Data Active Medications Acetaminophen (Acetaminophen 325 Mg Tablet) 650 mg PO Q6H PRN PRN Reason: Pain, Mild 1-3,fever,headache Last Admin: 04/10/25 01:49 Dose: 650 mg Documented By: ANGELA Amlodipine Besylate (Amlodipine Besylate 5 Mg Tablet) 5 mg PO DAILY [facility]; Protocol Last Admin: 04/11/25 09:12 Dose: 5 mg Documented By: MELYSSA Ascorbic Acid (Ascorbic Acid 500 Mg Tablet) 1,000 mg PO DAILY [facility] Last Admin: 04/11/25 09:15 Dose: 1,000 mg Documented By: MELYSSA Atorvastatin Calcium (Atorvastatin Calcium 10 Mg Tablet) 10 mg PO BEDTIME [facility] Last Admin: 04/10/25 20:27 Dose: 10 mg Documented By: KIARA Calcium Carbonate (Calcium Carbonate 750 Mg Tab.Chew) 750 mg PO Q4H PRN PRN Reason: Heartburn Clopidogrel Bisulfate (Clopidogrel Bisulfate 75 Mg Tablet) 75 mg PO DAILY [facility] Last Admin: 04/11/25 09:11 Dose: 75 mg Documented By: MELYSSA Dextrose (Dextrose 50 % 25 Gm/50 Ml Syringe) 25 gm IVPUSH Q15M PRN; Protocol PRN Reason: per Hypoglycemia Standing Ord. Empagliflozin (Empagliflozin 10 Mg Tablet) 10 mg PO DAILY [facility] Last Admin: 04/11/25 09:12 Dose: 10 mg Documented By: MELYSSA Glucose (Glucose Gel 15 Gm Gel..Gram.) 15 gm PO Q15M PRN; Protocol PRN Reason: per Hypoglycemia Standing Ord. Cefepime HCl 1 gm/ Sodium (Chloride) 50 mls @ 100 mls/hr IV Q24H [facility] Last Infusion: 04/10/25 19:38 Dose: Infused Documented By: KIARA Daptomycin 450 mg/ Sodium (Chloride) 59 mls @ 95.161 mls/hr IV Q48H [facility] Last Infusion: 04/09/25 19:56 Dose: Infused Documented By: FRENCH Insulin Glargine (Insulin Glargine,Hum.Rec.Anlog 100 Unit/Ml 10 Ml Vial) 18 unit SUBCUT BEDTIME [facility] Last Admin: 04/10/25 20:27 Dose: 18 unit Documented By: KIARA Insulin Human Lispro (Insulin Lispro 100 Unit/Ml 3 Ml Vial) 0 unit SUBCUT QIDACHS [facility]; Protocol Last Admin: 04/11/25 07:43 Dose: Not Given Documented By: MELYSSA Non-Admin Reason: No Insulin Coverage Latanoprost (Latanoprost 0.005 % Ophth [place] 2.5 Ml Drops) 1 drop EYE-BOTH BEDTIME [facility] Last Admin: 04/10/25 21:57 Dose: 1 drop Documented By: KIARA Levothyroxine Sodium (Levothyroxine Sodium 25 Mcg Tablet) 25 mcg PO DAILY@0600 [facility] Last Admin: 04/11/25 05:21 Dose: 25 mcg Documented By: LOLA Magnesium Hydroxide (Milk Of Magnesia 30 Ml Oral.Susp) 30 ml PO DAILY PRN PRN Reason: Constipation Melatonin (Melatonin 3 Mg Tablet) 6 mg PO BEDTIME PRN PRN Reason: Insomnia Last Admin: 04/10/25 20:27 Dose: 6 mg Documented By: KIARA Metoprolol Succinate (Metoprolol Succinate Er 100 Mg Tab.Er.24h) 200 mg PO DAILY [facility]; Protocol Last Admin: 04/11/25 09:14 Dose: 200 mg Documented By: MELYSSA Mirabegron (Mirabegron 25 Mg Tab.Er.24h) 25 mg PO DAILY [facility] Last Admin: 04/11/25 09:15 Dose: 25 mg Documented By: MELYSSA Multivitamins/Vitamin C (Multivitamin Tablet) 1 tab PO DAILY [facility] Last Admin: 04/11/25 09:12 Dose: 1 tab Documented By: MELYSSA Ondansetron HCl (Ondansetron Hcl 4 Mg/2 Ml Vial) 4 mg IVPUSH Q8H PRN PRN Reason: Nausea and Vomiting Oxycodone HCl (Oxycodone Hcl Immed Release 5 Mg Tablet) 5 mg PO Q6H PRN PRN Reason: Pain, Severe (Pain Scale 7-10) Last Admin: 04/10/25 20:42 Dose: 5 mg Documented By: RAISAASY Sodium Chloride (0.9 % Sodium Chloride Flush 3 Ml Syringe) 3 ml IVFLUSH QSHIFT [facility] Last Admin: 04/11/25 09:15 Dose: 3 ml Documented By: MELYSSA Warfarin Sodium (Warfarin Sodium 1 Mg Tablet) 1 mg PO SuTuThSa@1800 [facility] Last Admin: 04/09/25 19:17 Dose: 1 mg Documented By: FRENCH Warfarin Sodium (Warfarin Sodium 2 Mg Tablet) 2 mg PO MoWeFr@1800 [facility] Last Admin: 04/10/25 17:32 Dose: 2 mg Documented By: ANDRÉSME Labs 04/09/25 14:07 04/11/25 06:30 Labs: Laboratory Results - last 24 hr 04/10/25 04/10/25 04/10/25 11:12 16:11 20:04 Hold Purple Top PT INR Anion Gap Estim Creat Clear Calc Estimated GFR POC Glucose 114 146 H 205 H Random Glucose Calcium B-Natriuretic Peptide 04/11/25 04/11/25 04/11/25 06:30 07:21 10:57 Hold Purple Top SEE NOTE PT 35.5 H INR 3.1 H Anion Gap 12 Estim Creat Clear Calc 20.6 Estimated GFR 22 POC Glucose 82 152 H Random Glucose 76 Calcium 8.7 B-Natriuretic Peptide 356 H Microbiology Microbiology Results: Microbiology 04/09/25 15:38 Blood Culture - Preliminary Blood - Venous No growth after 24 hours. 04/09/25 15:38 Blood Culture - Preliminary Blood - Venous No growth after 24 hours. 04/09/25 16:15 Urine Culture - Final Urine Catheterized - Straight Catheter Assessment and Plan (1) Acute kidney injury superimposed on CKD: Status: Acute (2) Acute UTI: Status: Acute (3) Suprapubic catheter: Status: Acute Plan d3 for 84yo F with chronic AF on warfarin, chronic HF with mildly reduced EF, CAD s/p PCI x3, CKD3, DM2, hypothyroidism, HTN, and neurogenic bladder with SPC presenting with abd pain and no output from SPC for 3d, found to have blocked SPC, UTI, and DOROTHY DOROTHY/CKD3 - likely prerenal, continues to improve, hold furosemide + valsartan; will give another 1L LR with caution given CHF history; repeat BMP tomorrow, baseline Cr around 1.8-1.9 L foot discoloration - arterial dopplers; may need vascular consult; has hx of stent for PVD; already on clopidogrel + atorvastatin blocked SPC - replaced in ED and draining well though with urine leaking around insertion site and skin maceration; Wound Care and Urology consults pending complicated UTI associated with SPC - history of Pseudomonas, MRSA, Achromobacter, and MRSA so covering broadly with daptomycin and cefepime, renally dosed 04/09-; UCx contaminated, per ID if BCx negative can switch to doxycycline and amoxicillin-clavaulanate chronic AF - INR 3.1 today; hold warfarin; monitor INR daily while on antibiotics - continue metoprolol succinate CAD s/p PCI x3 - continue clopidogrel + atorvastatin chronic HF with mildly reduced EF - continue metoprolol succinate + amlodipine + empagliflozin; hold furosemide + valsartan for DOROTHY DM2 - basal-bolus insulin, empagliflozin hypothyroidism - continue LT4 VTE ppx - enoxaparin dispo - PT eval requested In my clinical judgment, the patient requires continued inpatient hospitalization for the following reasons: DOROTHY, IV ABX, IV fluids, specialist consultation Total time managing care of this patient today: 45 minutes. Quality Stroke Does the patient have a stroke diagnosis?: No VTE Prior VTE?: No VTE Risk Level:: Medical - moderate - high VTE Device Contraindication: Treatment Not Indicated VTE Drug Contraindication: N/A - Med Ordered
[2025-04-11 12:30] LABS: Glucose, Whole Blood 109 mg/dL (60-115)
--- NOTE | 2025-04-11 14:32 | HO.WOUND ---
Addendum entered by Samara Lara RN 04/12/25 14:28: 04/12/[address] Adame earlier today the suprapubic area does have some mild MASD noted barrier cream application recommended and in use. The leaking should be investigated by urology since it is unclear if the patient is leaking from the SPC site or from her urethra. evidence suggests it is her urethra. Original Note: Wound Consult: Initial 84yr old female admitted to [facility] [place] on 04/09/25 - See progress notes and H&P for detailed history.? Wound consult placed for Buttock wound, right Arm, Suprapubic area and Right Heel.? Patient agreeable to assessment and photo documentation.? Patient reports despite suprapubic in place she experiences urethral leaking - provider aware. Buttock and Sacrum Etiology: Chronic??MASD - Moisture Associated Skin Damage) Wound Bed: intact red maroon light purple blanchable tissue Drainage / Odor: none Edges: ? well defined and mirrored Stephania wound: noted in the perineal area as well? No Induration, Fluctuance or Warmth noted Pain: painful per pt statement Goals of Treatment: Triad to protect from moisture and friction Right Upper Arm - Chronic Lesion - Etiology remains unknown - Patient advised to follow up outpt with dermatology for etiology and treatment. Currently no drainage noted scattered scaling areas of red dry wound bed - No topical treatment needed - patient requests cover dressing. Recommend foam dressing to site change every 5-7 days. Right Heel - Red pink intact blanchable tissue - patient reports old pressure injury site where she treated at the out pt wound center for one year until healing. The area is in tact but at risk for reopening of tissue as prior full thickness pressure injury only regain 80% of their tensile strength. All preventative measure should be employed. Bilateral heel foam dressing applied and off loaded with pillows in recliner chair. Recommendations: 1. Turn and Reposition every 2 hours and as needed for patient comfort.? Use pillows or wedges to support off loading positions. 2. Off Load all bony prominences with use of pillows and heel boots if needed.? Apply Preventative foams where needed. ? 3. Monitor for incontinence and moisture control, use barrier creams when needed for prevention and treatment. 4. Provide adequate and supplemental nutrition.? 5. Order or Continue low air loss mattress. 6. When applicable maintain blood glucose levels per Providers order. Buttock and Perineal - Off Load Pressure with Q2 hr turns and use of pillows - Cleanse with PH balance spray or wipes, pat dry. ?Apply thin layer of Triad to wound bed - only pat and dab no scrub and rub when soiling occurs. Reapply thin layer PRN after each episode of incontinence. Right Upper Arm - Cleanse with routine cleansing. Cover with foam dressing. Change every 5-7 days. Right Heel - Preventative foam applied - float heels off of bed and recliner surface with pillows. Remove and assess Q shift and change every 7 days. Re-consult wound care Nurse for wound deterioration or wound changes.
[2025-04-11 16:39] LABS: Glucose, Whole Blood 177 mg/dL (60-115)
[2025-04-11] MEDS: oxyCODONE HCl Immed Release 5 MG TABLET PO (16:41)
[2025-04-11] MEDS: Acetaminophen 325 MG TABLET 650 MG PO (16:42)
[2025-04-11] MEDS: Insulin Lispro 100 UNIT/ML 3 ML VIAL SUBCUT (16:42)
[2025-04-11] MEDS: levoFLOXacin 500 MG TABLET PO (18:07)
[2025-04-11] MEDS: Doxycycline Monohydrate 100 MG CAPSULE PO (18:07)
[2025-04-11 20:10] LABS: Glucose, Whole Blood 149 mg/dL (60-115)
[2025-04-11] MEDS: Insulin Glargine,Hum.rec.anlog 100 UNIT/ML 10 ML VIAL 18 UNIT SUBCUT (20:46)
[2025-04-11] MEDS: Latanoprost 0.005 % Ophth Sol 2.5 ML DROPS 1 DROP EYE-BOTH (20:46)
[2025-04-11] MEDS: Melatonin 3 MG TABLET 6 MG PO (20:46)
[2025-04-11] MEDS: Atorvastatin Calcium 10 MG TABLET PO (20:46)
[2025-04-12] VITALS (7 sets, daily range): BP systolic 102–130; BP diastolic 53–76; PULSE 84–94; RESP 16–18; TEMP 36.2–37; O2SAT 95–98
[2025-04-12] MEDS: Doxycycline Monohydrate 100 MG CAPSULE PO ×2 (05:36→17:35)
[2025-04-12] MEDS: Levothyroxine Sodium 25 MCG TABLET PO (05:36)
[2025-04-12 07:02] LABS: INTERNATIONAL NORM RATIO 3.1 (0.9-1.1); Prothrombin Time 35.9 SEC (10.9-12.4)
[2025-04-12 07:21] LABS: Anion Gap 13 (12-20); Blood Urea Nitrogen 34 mg/dL (9-16); Calcium 8.5 mg/dL (8.4-10.2); Carbon Dioxide 20 mmol/L (22-29); Chloride 109 mmol/L (96-108); Creatinine Clr Calc Pharmacy 22.5; Estimated Glomerular Filt Rate 25; Glucose Random 54 mg/dL (60-115); Potassium 4.4 mmol/L (3.3-5.1); Sodium 138 mmol/L (135-145)
[2025-04-12 07:33] LABS: Glucose, Whole Blood 64 mg/dL (60-115)
[2025-04-12 07:33] LABS: Glucose, Whole Blood 99 mg/dL (60-115)
[2025-04-12] MEDS: oxyCODONE HCl Immed Release 5 MG TABLET PO (07:50)
[2025-04-12] MEDS: Metoprolol Succinate ER 100 MG TAB.ER.24H 200 MG PO (08:56)
[2025-04-12] MEDS: Empagliflozin 10 MG TABLET PO (08:57)
[2025-04-12] MEDS: Ascorbic Acid 500 MG TABLET 1000 MG PO (08:57)
[2025-04-12] MEDS: Clopidogrel Bisulfate 75 MG TABLET PO (08:57)
[2025-04-12] MEDS: amLODIPine Besylate 5 MG TABLET PO (08:57)
[2025-04-12] MEDS: Multivitamin TABLET 1 TAB PO (08:57)
[2025-04-12] MEDS: Mirabegron 25 MG TAB.ER.24H PO (08:58)
[2025-04-12] MEDS: Furosemide 20 MG TABLET 10 MG PO ×2 (08:58→21:00)
--- NOTE | 2025-04-12 10:37 | P.PNIM_ITS ---
Subjective Subjective Date of Service: 04/12/25 Interval History: SCr back at baseline urine appears to be leaking from urethra not SPC cool, discolored L foot Review of Systems Review of Systems: Yes all other systems are reviewed and are negative Physical Exam 2 Vital Signs: Vital Signs: Last Vital Signs Temp 98.6 F 04/12/25 07:03 Pulse 86 04/12/25 08:56 Resp 16 04/12/25 07:03 BP 130/60 04/12/25 08:58 Pulse Ox 96 04/12/25 07:03 O2 Del Method Room Air 04/12/25 07:03 BMI result Body Mass Index 28.7 Gen: in no acute distress HEENT: sclera anicteric, moist mucus membranes Neck: supple Lungs: clear to auscultation bilaterally Heart: irregular, no murmurs Abd: soft, non-tender, non-distended : SPC with urine leaking around tube, macerated skin Ext: trace bilateral leg edema Skin: L foot with some purplish discoloration, cool to touch, pulses nonpalpable Neuro: alert and oriented x3, no focal findings Psych: appropriate affect Objective Data Active Medications Acetaminophen (Acetaminophen 325 Mg Tablet) 650 mg PO Q6H PRN PRN Reason: Pain, Mild 1-3,fever,headache Last Admin: 04/11/25 16:42 Dose: 650 mg Documented By: MELYSSA Amlodipine Besylate (Amlodipine Besylate 5 Mg Tablet) 5 mg PO DAILY [facility]; Protocol Last Admin: 04/12/25 08:57 Dose: 5 mg Documented By: VONNIE Ascorbic Acid (Ascorbic Acid 500 Mg Tablet) 1,000 mg PO DAILY [facility] Last Admin: 04/12/25 08:57 Dose: 1,000 mg Documented By: VONNIE Atorvastatin Calcium (Atorvastatin Calcium 10 Mg Tablet) 10 mg PO BEDTIME [facility] Last Admin: 04/11/25 20:46 Dose: 10 mg Documented By: LOLA Calcium Carbonate (Calcium Carbonate 750 Mg Tab.Chew) 750 mg PO Q4H PRN PRN Reason: Heartburn Clopidogrel Bisulfate (Clopidogrel Bisulfate 75 Mg Tablet) 75 mg PO DAILY [facility] Last Admin: 04/12/25 08:57 Dose: 75 mg Documented By: VONNIE Dextrose (Dextrose 50 % 25 Gm/50 Ml Syringe) 25 gm IVPUSH Q15M PRN; Protocol PRN Reason: per Hypoglycemia Standing Ord. Doxycycline Monohydrate (Doxycycline Monohydrate 100 Mg Capsule) 100 mg PO Q12H [facility] Last Admin: 04/12/25 05:36 Dose: 100 mg Documented By: LOLA Empagliflozin (Empagliflozin 10 Mg Tablet) 10 mg PO DAILY [facility] Last Admin: 04/12/25 08:57 Dose: 10 mg Documented By: VONNIE Furosemide (Furosemide 20 Mg Tablet) 10 mg PO BID [facility]; Protocol Last Admin: 04/12/25 08:58 Dose: 10 mg Documented By: VONNIE Glucose (Glucose Gel 15 Gm Gel..Gram.) 15 gm PO Q15M PRN; Protocol PRN Reason: per Hypoglycemia Standing Ord. Insulin Glargine (Insulin Glargine,Hum.Rec.Anlog 100 Unit/Ml 10 Ml Vial) 15 unit SUBCUT BEDTIME [facility] Insulin Human Lispro (Insulin Lispro 100 Unit/Ml 3 Ml Vial) 0 unit SUBCUT QIDACHS [facility]; Protocol Last Admin: 04/12/25 08:21 Dose: Not Given Documented By: EKTA Non-Admin Reason: No Insulin Coverage Latanoprost (Latanoprost 0.005 % Ophth [place] 2.5 Ml Drops) 1 drop EYE-BOTH BEDTIME [facility] Last Admin: 04/11/25 20:46 Dose: 1 drop Documented By: LOLA Levofloxacin (Levofloxacin 250 Mg Tablet) 250 mg PO Q24H [facility] Levothyroxine Sodium (Levothyroxine Sodium 25 Mcg Tablet) 25 mcg PO DAILY@0600 [facility] Last Admin: 04/12/25 05:36 Dose: 25 mcg Documented By: LOLA Magnesium Hydroxide (Milk Of Magnesia 30 Ml Oral.Susp) 30 ml PO DAILY PRN PRN Reason: Constipation Melatonin (Melatonin 3 Mg Tablet) 6 mg PO BEDTIME PRN PRN Reason: Insomnia Last Admin: 04/11/25 20:46 Dose: 6 mg Documented By: LOLA Metoprolol Succinate (Metoprolol Succinate Er 100 Mg Tab.Er.24h) 200 mg PO DAILY [facility]; Protocol Last Admin: 04/12/25 08:56 Dose: 200 mg Documented By: VONNIE Mirabegron (Mirabegron 25 Mg Tab.Er.24h) 25 mg PO DAILY [facility] Last Admin: 04/12/25 08:58 Dose: 25 mg Documented By: VONNIE Multivitamins/Vitamin C (Multivitamin Tablet) 1 tab PO DAILY [facility] Last Admin: 04/12/25 08:57 Dose: 1 tab Documented By: VONNIE Ondansetron HCl (Ondansetron Hcl 4 Mg/2 Ml Vial) 4 mg IVPUSH Q8H PRN PRN Reason: Nausea and Vomiting Oxycodone HCl (Oxycodone Hcl Immed Release 5 Mg Tablet) 5 mg PO Q6H PRN PRN Reason: Pain, Severe (Pain Scale 7-10) Last Admin: 04/12/25 07:50 Dose: 5 mg Documented By: VONNIE Sodium Chloride (0.9 % Sodium Chloride Flush 3 Ml Syringe) 3 ml IVFLUSH QSHIFT [facility] Last Admin: 04/12/25 09:00 Dose: Not Given Documented By: VONNIE Non-Admin Reason: No Access Warfarin Sodium (Warfarin Sodium 1 Mg Tablet) 1 mg PO SuTuThSa@1800 [facility] Last Admin: 04/09/25 19:17 Dose: 1 mg Documented By: FRENCH Warfarin Sodium (Warfarin Sodium 2 Mg Tablet) 2 mg PO MoWeFr@1800 [facility] Last Admin: 04/10/25 17:32 Dose: 2 mg Documented By: LUCILLE Labs 04/09/25 14:07 04/12/25 06:04 Labs: Laboratory Results - last 24 hr 04/11/25 04/11/25 04/11/25 10:57 12:27 16:36 Hold Purple Top PT INR Anion Gap Estim Creat Clear Calc Estimated GFR POC Glucose 152 H 109 177 H Random Glucose Calcium 04/11/25 04/12/25 04/12/25 20:02 06:04 07:06 Hold Purple Top SEE NOTE PT 35.9 H INR 3.1 H Anion Gap 13 Estim Creat Clear Calc 22.5 Estimated GFR 25 POC Glucose 149 H 64 Random Glucose 54 L* Calcium 8.5 04/12/25 07:29 Hold Purple Top PT INR Anion Gap Estim Creat Clear Calc Estimated GFR POC Glucose 99 Random Glucose Calcium Impressions Duplex Scan Lower Extremity Artery 04/11/25 16:00 IMPRESSION: Right leg: Severe inflow disease from the popliteal artery to the dorsalis base artery. Concerning occluded peroneal and anterior tibialis arteries. Left leg: Severe inflow disease from the mid superficial femoral artery to the dorsalis pedis artery. Concerning occluded peroneal artery. Electronically signed by: Sandoval Craft MD 04/12/2025 08:24 AM EDT RP Microbiology Microbiology Results: Microbiology 04/09/25 15:38 Blood Culture - Preliminary Blood - Venous No growth after 48 hours. 04/09/25 15:38 Blood Culture - Preliminary Blood - Venous No growth after 48 hours. Assessment and Plan (1) Acute kidney injury superimposed on CKD: Status: Acute (2) Acute UTI: Status: Acute (3) Suprapubic catheter: Status: Acute Plan d4 for 84yo F with chronic AF on warfarin, chronic HF with mildly reduced EF, CAD s/p PCI x3, CKD3, DM2, hypothyroidism, HTN, and neurogenic bladder with SPC presenting with abd pain and no output from SPC for 3d, found to have blocked SPC, UTI, and DOROTHY bilateral LE arterial occlusive disease - Vascular Surgery consultation; continue atorvastatin and clopidogrel DOROTHY/CKD3 - likely prerenal, SCr back at baseline after holding furosemide + valsartan and giving IV fluids blocked SPC - replaced in ED and draining well though with urine leaking around urethra; Urology consult pending complicated UTI associated with SPC - history of Pseudomonas, MRSA, Achromobacter, and MRSA so covered broadly with daptomycin and cefepime, renally dosed 04/09-04/11; UCx contaminated, BCx negative; changed to doxycycline and levofloxacin 04/11- chronic AF - INR 3.1 today; hold warfarin; monitor INR daily while on antibiotics - continue metoprolol succinate CAD s/p PCI x3 - continue clopidogrel + atorvastatin chronic HF with mildly reduced EF - continue metoprolol succinate + amlodipine + empagliflozin; held furosemide + valsartan for DOROTHY DM2 - basal-bolus insulin, empagliflozin hypothyroidism - continue LT4 VTE ppx - warfarin dispo - STR In my clinical judgment, the patient requires continued inpatient hospitalization for the following reasons: vascular surgery consultation Total time managing care of this patient today: 50 minutes. Quality Stroke Does the patient have a stroke diagnosis?: No VTE Prior VTE?: No VTE Risk Level:: Medical - moderate - high VTE Device Contraindication: Treatment Not Indicated VTE Drug Contraindication: N/A - Med Ordered
--- NOTE | 2025-04-12 10:38 | PC.NURSE ---
Bladder scanned as per order for 0 cc . about 400 cc of urine in her SPT cath bag. provider Wendi notified
[2025-04-12 11:33] LABS: Glucose, Whole Blood 148 mg/dL (60-115)
--- NOTE | 2025-04-12 11:39 | P.CONGS_ITS ---
<Statement entered by Enrique Tapia MD - 04/13/25 12:08> I have seen and evaluated the patient and agree with history, findings, assessment and plan documented by Lisa Aguirre PA-c. Patient has had right lower extremity intervention done by Dr. Raphael 2-3 years prior. At the current time left side appears to be stable. Motor and sensation is intact. On the plantar surface it appears to be more of a hematoma as she does have bleeding issues. Continue medical management for now to clear infection. Once she stabilizes stable from my perspective for discharge. Would consult and discuss with Dr. Raphael. She can follow up with them as outpatient. History of Present Illness Consult details Consult date: 04/12/25 Narrative: We were consulted on Belen, for concerns of left foot discoloration and cool to the touch. Belen presented to the ER on 04/09 with concerns of 3d of no drainage/little drainage from her chronic suprapubic cath. She has a medical hx pertinent for aortic stenosis, HFpEF, DM, CVA, CAD with PCI x3, HTN, HLD, hypothyroidism, Afib on Coumadin, and a neurogenic bladder with a chronic suprapubic catheter. She states she has also had a stent placed in the right lower extremity at [facility] due to a nonhealing ulcer of the right foot, for which she was being seen at the wound care clinic, it is now healed. She was admitted for DOROTHY on CKD secondary to a UTI. She was started on IV Cefepime and Daptomycin. We were consulted for concerns of findings of left foot discoloration, absent pulses, and cool foot. The pt denies any pain in the foot and states she first noticed the discoloration in the toes about one week ago; she denies any wounds or injuries. Review of Systems 2 Constitutional: Constitutional: Reports as per HPI and Denies weakness ENT: Reports Normal hearing present and Denies dizziness Cardiovascular: Cardiovascular: Reports as per HPI, Denies chest pain, Denies chest pain at rest, Denies chest pain with activity, Denies dyspnea and Denies dyspnea on exertion Respiratory: Respiratory: Reports as per HPI, Denies cough, Denies dyspnea and Denies dyspnea on exertion Gastrointestinal: Gastrointestinal: Reports as per HPI, Denies abdominal pain, Denies nausea and Denies vomiting Musculoskeletal: Musculoskeletal: Denies numbness Integumentary/Breasts: Skin/Breast: Reports as per HPI, Denies erythema and Denies wounds Neurologic: Reports Normal hearing present, Denies dizziness, Denies numbness, Denies Sensory deficit (Neuro) and Denies weakness Psychiatric: Psychiatric: Reports no additional psychiatric complaints Endocrine: Endocrine: Reports no additional endocrine complaints [facility] Past Medical History Medical History Hydronephrosis determined by ultrasound Permanent atrial fibrillation DOROTHY (acute kidney injury) Atrial fibrillation Neuropathy Neurogenic bladder CVA (cerebral vascular accident) Shingles Elevated cholesterol Myocardial infarction MRSA infection Hip pain Leg wound, left Varicose vein of leg Osteoarthritis of right hip Current use of anticoagulant therapy Recurrent UTI Atrial fibrillation PAF (paroxysmal atrial fibrillation) Congestive heart failure Urinary incontinence Hypothyroidism Diabetes Hypertension CKD (chronic kidney disease) CAD (coronary artery disease) Hypotonic neurogenic bladder Family History Family History Father Hx of angina pectoris Myocardial infarction Mother Ovarian cancer Stomach cancer Maternal Grandfather Hardening of the arteries of the heart Other Neurogenic bladder Family history: reviewed and not pertinent Surgical History Surgical History History of left knee replacement History of right knee joint replacement H/O heart artery stent H/O nasal polypectomy History of tubal ligation History of tonsillectomy and adenoidectomy Hx of cholecystectomy Social History Social History Household Members: Family Household Members Other:: daughter Housing: House Are you a primary home care assistant to a significant other at home: No Do you presently have visiting nurse or other home services: Yes (meals on wheels 5 days) Alcohol intake: never [place] [facility] [place] Tobacco Use Status: Never used Tobacco Smoked in Last 30 Days: No Patient Interested in Nicotine Replacement: No Patient Given Instructions on How to Stop Smoking: No Second Hand Smoke Exposure: No Use of substances other than those prescribed or required for medical reasons: No Currently Displaying Signs/Symptoms of Drug Intoxication Withdrawal: No Have you been hit, kicked, punched, or otherwise hurt by someone within the past year? If so, by whom?: No Do you feel safe in your current relationship?: No Current Relationship Is there a partner from a previous relationship who is making you feel unsafe now?: No Are you made to feel afraid or neglected: No [facility] Healthcare Practices: mandaen Advance Directives: Yes Advance Directives on File: Yes Advance Directives Date on File: 08/27/22 Do you have a plan to hurt others: No Plan Recently lost weight without trying: No Eating poorly because of decreased appetite: No Nutrition Risks: No Nutritional Risk Patient : No : No Poor oral hygiene: No service: No Current occupational status: retired Meds Allergies Allergy/AdvReac Type Severity Reaction Status Date / Time amox-clav Allergy Mild Rash Uncoded 04/09/25 13:29 Active Medications: Current Medications Acetaminophen (Acetaminophen 325 Mg Tablet) 650 mg PO Q6H PRN PRN Reason: Pain, Mild 1-3,fever,headache Last Admin: 04/11/25 16:42 Dose: 650 mg Amlodipine Besylate (Amlodipine Besylate 5 Mg Tablet) 5 mg PO DAILY [facility]; Protocol Last Admin: 04/12/25 08:57 Dose: 5 mg Ascorbic Acid (Ascorbic Acid 500 Mg Tablet) 1,000 mg PO DAILY [facility] Last Admin: 04/12/25 08:57 Dose: 1,000 mg Atorvastatin Calcium (Atorvastatin Calcium 10 Mg Tablet) 10 mg PO BEDTIME [facility] Last Admin: 04/11/25 20:46 Dose: 10 mg Calcium Carbonate (Calcium Carbonate 750 Mg Tab.Chew) 750 mg PO Q4H PRN PRN Reason: Heartburn Clopidogrel Bisulfate (Clopidogrel Bisulfate 75 Mg Tablet) 75 mg PO DAILY [facility] Last Admin: 04/12/25 08:57 Dose: 75 mg Dextrose (Dextrose 50 % 25 Gm/50 Ml Syringe) 25 gm IVPUSH Q15M PRN; Protocol PRN Reason: per Hypoglycemia Standing Ord. Doxycycline Monohydrate (Doxycycline Monohydrate 100 Mg Capsule) 100 mg PO Q12H [facility] Last Admin: 04/12/25 05:36 Dose: 100 mg Empagliflozin (Empagliflozin 10 Mg Tablet) 10 mg PO DAILY [facility] Last Admin: 04/12/25 08:57 Dose: 10 mg Furosemide (Furosemide 20 Mg Tablet) 10 mg PO BID [facility]; Protocol Last Admin: 04/12/25 08:58 Dose: 10 mg Glucose (Glucose Gel 15 Gm Gel..Gram.) 15 gm PO Q15M PRN; Protocol PRN Reason: per Hypoglycemia Standing Ord. Insulin Glargine (Insulin Glargine,Hum.Rec.Anlog 100 Unit/Ml 10 Ml Vial) 15 unit SUBCUT BEDTIME [facility] Insulin Human Lispro (Insulin Lispro 100 Unit/Ml 3 Ml Vial) 0 unit SUBCUT QIDACHS [facility]; Protocol Last Admin: 04/12/25 08:21 Dose: Not Given Latanoprost (Latanoprost 0.005 % Ophth [place] 2.5 Ml Drops) 1 drop EYE-BOTH BEDTIME [facility] Last Admin: 04/11/25 20:46 Dose: 1 drop Levofloxacin (Levofloxacin 250 Mg Tablet) 250 mg PO Q24H [facility] Levothyroxine Sodium (Levothyroxine Sodium 25 Mcg Tablet) 25 mcg PO DAILY@0600 [facility] Last Admin: 04/12/25 05:36 Dose: 25 mcg Magnesium Hydroxide (Milk Of Magnesia 30 Ml Oral.Susp) 30 ml PO DAILY PRN PRN Reason: Constipation Melatonin (Melatonin 3 Mg Tablet) 6 mg PO BEDTIME PRN PRN Reason: Insomnia Last Admin: 04/11/25 20:46 Dose: 6 mg Metoprolol Succinate (Metoprolol Succinate Er 100 Mg Tab.Er.24h) 200 mg PO DAILY [facility]; Protocol Last Admin: 04/12/25 08:56 Dose: 200 mg Mirabegron (Mirabegron 25 Mg Tab.Er.24h) 25 mg PO DAILY [facility] Last Admin: 04/12/25 08:58 Dose: 25 mg Multivitamins/Vitamin C (Multivitamin Tablet) 1 tab PO DAILY [facility] Last Admin: 04/12/25 08:57 Dose: 1 tab Ondansetron HCl (Ondansetron Hcl 4 Mg/2 Ml Vial) 4 mg IVPUSH Q8H PRN PRN Reason: Nausea and Vomiting Oxycodone HCl (Oxycodone Hcl Immed Release 5 Mg Tablet) 5 mg PO Q6H PRN PRN Reason: Pain, Severe (Pain Scale 7-10) Last Admin: 04/12/25 07:50 Dose: 5 mg Sodium Chloride (0.9 % Sodium Chloride Flush 3 Ml Syringe) 3 ml IVFLUSH QSHIFT [facility] Last Admin: 04/12/25 09:00 Dose: Not Given Warfarin Sodium (Warfarin Sodium 1 Mg Tablet) 1 mg PO SuTuThSa@1800 [facility] Last Admin: 04/09/25 19:17 Dose: 1 mg Warfarin Sodium (Warfarin Sodium 2 Mg Tablet) 2 mg PO MoWeFr@1800 [facility] Last Admin: 04/10/25 17:32 Dose: 2 mg Home Medications ?Medication ?Instructions ?Recorded ?Confirmed ?Last Taken ?Type levothyroxine 25 mcg tablet 25 mcg PO DAILY@0600 09/05/20 04/09/25 06/16/24 History pen needle, diabetic 32 gauge x #50 ea 12/31/21 03/30/25 06/16/24 History (BD Cathy 2nd Gen Pen Needle) multivitamin (One Daily 1 tab PO DAILY 09/15/22 04/09/25 06/16/24 History Multivitamin tablet) lancets 28 gauge (FreeStyle #100 ea 09/29/22 03/30/25 06/16/24 History Lancets) vitamins A,C,C-qsbk-wipgai 2,148 1 tab PO BIDWM 05/09/23 04/09/25 06/16/24 History mcg-113 mg-45 mg-17.4 mg tablet (PreserVision AREDS) amlodipine 5 mg tablet 5 mg PO DAILY 11/13/23 04/09/25 06/16/24 History furosemide 20 mg tablet 10 mg PO BID 06/17/24 04/09/25 06/16/24 History clopidogrel 75 mg tablet 75 mg PO DAILY 08/01/24 04/09/25 Unknown History latanoprost 0.005 % eye drops 1 drp ophthalmic (eye) BEDTIME 09/19/24 04/09/25 Unknown History warfarin 1 mg tablet 2 mg PO .COMPLEX 10/03/24 03/30/25 Unknown History insulin lispro 100 unit/mL See Protocol subcut BID 02/09/25 04/09/25 Unknown History subcutaneous pen (Humalog KwikPen (U-100) Insulin) melatonin 10 mg tablet 10 mg PO BEDTIME 04/09/25 04/09/25 Unknown History warfarin 1 mg tablet 1 mg PO SUTUTHSA 04/09/25 04/09/25 04/08/25 21:00 History warfarin 1 mg tablet 2 mg PO MOWEFR 04/09/25 04/09/25 Unknown History Physical Exam 2 Vital Signs: Vital Signs: Last Vital Signs Temp 98.6 F 04/12/25 07:03 Pulse 86 04/12/25 08:56 Resp 16 04/12/25 07:03 BP 130/60 04/12/25 08:58 Pulse Ox 96 04/12/25 07:03 O2 Del Method Room Air 04/12/25 07:03 BMI result Body Mass Index 28.7 Const: General: comfortable and no acute distress O rientation/consciousness: patient oriented x3 HEENT: Ears: hearing grossly normal bilaterally Resp: Effort & Inspection: normal respiratory effort and able to speak in complete sentences Auscultation: clear to auscultation bilaterally Cardio: Rate: regular rate Rhythm: regular rhythm Heart sounds: S1 normal heart sound present and S2 normal heart sound present Bruits: no abdominal aortic bruits, no carotid bruits, no femoral bruits and no renal bruits GI: Palpation (GI): No Abdominal aortic bruit present Neuro: General: patient oriented x3 Cranial nerves: Yes Normal hearing present Sensory Exam: No Sensory deficit (Neuro) Extrem: Other: Left 3-5 toes: dusky discoloration noted on the base of the plantar and dorsal aspects of the foot. Not painful to palpation. DP pulses not palpable, able to find with Doppler. Foot is warm to the touch. No other discoloration noted in the foot. +2 pitting edema noted from the ankle to the pretibial area. Results Labs 04/09/25 14:07 04/12/25 06:04 Labs: Abnormal lab results 04/11/25 04/11/25 04/12/25 Range/Units 16:36 20:02 06:04 PT 35.9 H (10.9-12.4) SEC INR 3.1 H (0.9-1.1) Chloride 109 H (96-108) mmol/L Carbon Dioxide 20 L (22-29) mmol/L BUN 34 H (9-16) mg/dL Creatinine 1.92 H (0.5-1.4) mg/dL POC Glucose 177 H 149 H (60-115) mg/dL Random Glucose 54 L* (60-115) mg/dL 04/12/25 Range/Units 11:27 PT (10.9-12.4) SEC INR (0.9-1.1) Chloride (96-108) mmol/L Carbon Dioxide (22-29) mmol/L BUN (9-16) mg/dL Creatinine (0.5-1.4) mg/dL POC Glucose 148 H (60-115) mg/dL Random Glucose (60-115) mg/dL BMP 04/12/25 06:04 Sodium 138 Potassium 4.4 Chloride 109 H Carbon Dioxide 20 L BUN 34 H Creatinine 1.92 H Calcium 8.5 Urine 04/09/25 Range/Units 16:15 Urine Color Yellow Urine Appearance Turbid Urine pH 5.5 (5.0-9.0) Ur Specific [place] 1.010 (1.005-1.025) Urine Protein 300 (3+) H (Neg-Trace) mg/dL Urine Glucose (UA) Negative (Negative) mg/dL All other labs normal. Assessment and Plan (1) Peripheral artery disease: Status: Acute Plan We were consulted on Belen for concerns of left foot discoloration with absent pulses. She presented to the ER with urinary retention and found to have a cool foot with discoloration of the base of the left 3-5 toes. Arterial duplex revealed severe inflow dx of the mid superficial femoral artery to the DP with a possible occluded peroneal artery on the left and severe inflow dx on the right from the popliteal to the dorsalis base artery with possible occlusion of the peroneal and AT arteries. The pt has been followed by [facility] in the past; most recently appx 1y when she had an angio with stenting in the right lower extremity. There is no acute vascular surgical intervention at this point. We do recommend that she follow up outpatient with [facility] for further evaluation and treatment options. Thank you for the consult. If there are any questions or concerns, please do not hesitate to reach out to us. Procedures Date of Service Date of Service: 04/12/25
--- NOTE | 2025-04-12 11:47 | P.CNUR_ITS ---
History of Present Illness Consult details Consult date: 04/12/25 Narrative: CC: Bladder spasm 84-year-old female Well known to Urology Neurogenic bladder in setting of diabetes Presentation with obstructed catheter Has leakage around catheter Consistent with bladder spasm Previously had been on Myrbetriq medication to assist with spasm Would trial anticholinergic that satisfies Beers criteria and does not cross blood-brain barrier Continue with regular Urology follow-up Review of Systems 2 Constitutional: Constitutional: Reports as per HPI and Reports no additional constitutional complaints Cardiovascular: Cardiovascular: Reports as per HPI and Reports no additional cardiovascular complaints Respiratory: Respiratory: Reports as per HPI and Reports no additional respiratory complaints Gastrointestinal: Gastrointestinal: Reports as per HPI and Reports no additional gastrointestinal complaints Genitourinary: Genitourinary: Reports as per HPI Musculoskeletal: Musculoskeletal: Reports no additional musculoskeletal complaints and Reports as per HPI Neurologic: Reports system reviewed and no additional complaints, except as documented and Reports as per HPI PMF Past Medical History Medical History Hydronephrosis determined by ultrasound Permanent atrial fibrillation DOROTHY (acute kidney injury) Atrial fibrillation Neuropathy Neurogenic bladder CVA (cerebral vascular accident) Shingles Elevated cholesterol Myocardial infarction MRSA infection Hip pain Leg wound, left Varicose vein of leg Osteoarthritis of right hip Current use of anticoagulant therapy Recurrent UTI Atrial fibrillation PAF (paroxysmal atrial fibrillation) Congestive heart failure Urinary incontinence Hypothyroidism Diabetes Hypertension CKD (chronic kidney disease) CAD (coronary artery disease) Hypotonic neurogenic bladder Family History Family History Father Hx of angina pectoris Myocardial infarction Mother Ovarian cancer Stomach cancer Maternal Grandfather Hardening of the arteries of the heart Other Neurogenic bladder Family history: reviewed and not pertinent Surgical History Surgical History History of left knee replacement History of right knee joint replacement H/O heart artery stent H/O nasal polypectomy History of tubal ligation History of tonsillectomy and adenoidectomy Hx of cholecystectomy Social History Social History Household Members: Family Household Members Other:: daughter Housing: House Are you a primary senior care provider to a significant other at home: No Do you presently have visiting nurse or other home services: Yes (meals on wheels 5 days) Alcohol intake: never Comment: [facility] [place] Tobacco Use Status: Never used Tobacco Smoked in Last 30 Days: No Patient Interested in Nicotine Replacement: No Patient Given Instructions on How to Stop Smoking: No Second Hand Smoke Exposure: No Use of substances other than those prescribed or required for medical reasons: No Currently Displaying Signs/Symptoms of Drug Intoxication Withdrawal: No Have you been hit, kicked, punched, or otherwise hurt by someone within the past year? If so, by whom?: No Do you feel safe in your current relationship?: No Current Relationship Is there a partner from a previous relationship who is making you feel unsafe now?: No Are you made to feel afraid or neglected: No [employer] Healthcare Practices: [facility] Advance Directives: Yes Advance Directives on File: Yes Advance Directives Date on File: 08/27/22 Do you have a plan to hurt others: No Plan Recently lost weight without trying: No Eating poorly because of decreased appetite: No Nutrition Risks: No Nutritional Risk Patient : No : No Poor oral hygiene: No service: No Current occupational status: retired [employer] Allergies Allergy/AdvReac Type Severity Reaction Status Date / Time amox-clav Allergy Mild Rash Uncoded 04/09/25 13:29 Active Medications: Current Medications Acetaminophen (Acetaminophen 325 Mg Tablet) 650 mg PO Q6H PRN PRN Reason: Pain, Mild 1-3,fever,headache Last Admin: 04/11/25 16:42 Dose: 650 mg Amlodipine Besylate (Amlodipine Besylate 5 Mg Tablet) 5 mg PO DAILY SUN; Protocol Last Admin: 04/12/25 08:57 Dose: 5 mg Ascorbic Acid (Ascorbic Acid 500 Mg Tablet) 1,000 mg PO DAILY SUN Last Admin: 04/12/25 08:57 Dose: 1,000 mg Atorvastatin Calcium (Atorvastatin Calcium 10 Mg Tablet) 10 mg PO BEDTIME SUN Last Admin: 04/11/25 20:46 Dose: 10 mg Calcium Carbonate (Calcium Carbonate 750 Mg Tab.Chew) 750 mg PO Q4H PRN PRN Reason: Heartburn Clopidogrel Bisulfate (Clopidogrel Bisulfate 75 Mg Tablet) 75 mg PO DAILY SUN Last Admin: 04/12/25 08:57 Dose: 75 mg Dextrose (Dextrose 50 % 25 Gm/50 Ml Syringe) 25 gm IVPUSH Q15M PRN; Protocol PRN Reason: per Hypoglycemia Standing Ord. Doxycycline Monohydrate (Doxycycline Monohydrate 100 Mg Capsule) 100 mg PO Q12H [facility] Last Admin: 04/12/25 05:36 Dose: 100 mg Empagliflozin (Empagliflozin 10 Mg Tablet) 10 mg PO DAILY [facility] Last Admin: 04/12/25 08:57 Dose: 10 mg Furosemide (Furosemide 20 Mg Tablet) 10 mg PO BID [facility]; Protocol Last Admin: 04/12/25 08:58 Dose: 10 mg Glucose (Glucose Gel 15 Gm Gel..Gram.) 15 gm PO Q15M PRN; Protocol PRN Reason: per Hypoglycemia Standing Ord. Insulin Glargine (Insulin Glargine,Hum.Rec.Anlog 100 Unit/Ml 10 Ml Vial) 15 unit SUBCUT BEDTIME [facility] Insulin Human Lispro (Insulin Lispro 100 Unit/Ml 3 Ml Vial) 0 unit SUBCUT QIDACHS [facility]; Protocol Last Admin: 04/12/25 11:39 Dose: Not Given Latanoprost (Latanoprost 0.005 % Ophth [place] 2.5 Ml Drops) 1 drop EYE-BOTH BEDTIME [facility] Last Admin: 04/11/25 20:46 Dose: 1 drop Levofloxacin (Levofloxacin 250 Mg Tablet) 250 mg PO Q24H [facility] Levothyroxine Sodium (Levothyroxine Sodium 25 Mcg Tablet) 25 mcg PO DAILY@0600 [facility] Last Admin: 04/12/25 05:36 Dose: 25 mcg Magnesium Hydroxide (Milk Of Magnesia 30 Ml Oral.Susp) 30 ml PO DAILY PRN PRN Reason: Constipation Melatonin (Melatonin 3 Mg Tablet) 6 mg PO BEDTIME PRN PRN Reason: Insomnia Last Admin: 04/11/25 20:46 Dose: 6 mg Metoprolol Succinate (Metoprolol Succinate Er 100 Mg Tab.Er.24h) 200 mg PO DAILY [facility]; Protocol Last Admin: 04/12/25 08:56 Dose: 200 mg Mirabegron (Mirabegron 25 Mg Tab.Er.24h) 25 mg PO DAILY [facility] Last Admin: 04/12/25 08:58 Dose: 25 mg Multivitamins/Vitamin C (Multivitamin Tablet) 1 tab PO DAILY [facility] Last Admin: 04/12/25 08:57 Dose: 1 tab Ondansetron HCl (Ondansetron Hcl 4 Mg/2 Ml Vial) 4 mg IVPUSH Q8H PRN PRN Reason: Nausea and Vomiting Oxycodone HCl (Oxycodone Hcl Immed Release 5 Mg Tablet) 5 mg PO Q6H PRN PRN Reason: Pain, Severe (Pain Scale 7-10) Last Admin: 04/12/25 07:50 Dose: 5 mg Sodium Chloride (0.9 % Sodium Chloride Flush 3 Ml Syringe) 3 ml IVFLUSH QSHIFT [facility] Last Admin: 04/12/25 09:00 Dose: Not Given Warfarin Sodium (Warfarin Sodium 1 Mg Tablet) 1 mg PO SuTuThSa@1800 [facility] Last Admin: 04/09/25 19:17 Dose: 1 mg Warfarin Sodium (Warfarin Sodium 2 Mg Tablet) 2 mg PO MoWeFr@1800 [facility] Last Admin: 04/10/25 17:32 Dose: 2 mg Home Medications ?Medication ?Instructions ?Recorded ?Confirmed ?Last Taken ?Type levothyroxine 25 mcg tablet 25 mcg PO DAILY@0600 09/05/20 04/09/25 06/16/24 History pen needle, diabetic 32 gauge x #50 ea 12/31/21 03/30/25 06/16/24 History (BD Cathy 2nd Gen Pen Needle) multivitamin (One Daily 1 tab PO DAILY 09/15/22 04/09/25 06/16/24 History Multivitamin tablet) lancets 28 gauge (FreeStyle #100 ea 09/29/22 03/30/25 06/16/24 History Lancets) vitamins A,C,Q-pqtr-wrnbuo 2,148 1 tab PO BIDWM 05/09/23 04/09/25 06/16/24 History mcg-113 mg-45 mg-17.4 mg tablet (PreserVision AREDS) amlodipine 5 mg tablet 5 mg PO DAILY 11/13/23 04/09/25 06/16/24 History furosemide 20 mg tablet 10 mg PO BID 06/17/24 04/09/25 06/16/24 History clopidogrel 75 mg tablet 75 mg PO DAILY 08/01/24 04/09/25 Unknown History latanoprost 0.005 % eye drops 1 drp ophthalmic (eye) BEDTIME 09/19/24 04/09/25 Unknown History warfarin 1 mg tablet 2 mg PO .COMPLEX 10/03/24 03/30/25 Unknown History insulin lispro 100 unit/mL See Protocol subcut BID 02/09/25 04/09/25 Unknown History subcutaneous pen (Humalog KwikPen (U-100) Insulin) melatonin 10 mg tablet 10 mg PO BEDTIME 04/09/25 04/09/25 Unknown History warfarin 1 mg tablet 1 mg PO SUTUTHSA 04/09/25 04/09/25 04/08/25 21:00 History warfarin 1 mg tablet 2 mg PO MOWEFR 04/09/25 04/09/25 Unknown History Physical Exam 2 Vital Signs: Vital Signs: Last Vital Signs Temp 98.6 F 04/12/25 07:03 Pulse 86 04/12/25 08:56 Resp 16 04/12/25 07:03 BP 130/60 04/12/25 08:58 Pulse Ox 96 04/12/25 07:03 O2 Del Method Room Air 04/12/25 07:03 BMI result Body Mass Index 28.7 Const: General: cooperative, healthy appearing, comfortable and no acute distress Orientation/consciousness: patient oriented x3 HEENT: Face and sinus: Yes normal facial exam Mouth: moist mucous membranes Neck: Neck: Yes normal visual inspection, Yes full ROM and Yes trachea midline Chest: Chest palpation & inspection: normal inspection of the chest Resp: Effort & Inspection: normal respiratory effort, able to speak in complete sentences and no respiratory distress GI: Inspection: Yes normal to inspection Back/Spine/Pelvis: Cervical Spine: normal cervical lordosis Thoracic/Lumbar Spine: thoracic and lumbar spine normal to inspection Skin: General skin exam: no rashes or lesions noted Neuro: General: patient oriented x3, tone normal and moves all extremities Extrem: General: Yes normal to inspection and Yes capillary refill normal Results Labs 04/09/25 14:07 04/12/25 06:04 Labs: Abnormal lab results 04/11/25 04/11/25 04/12/25 Range/Units 16:36 20:02 06:04 PT 35.9 H (10.9-12.4) SEC INR 3.1 H (0.9-1.1) Chloride 109 H (96-108) mmol/L Carbon Dioxide 20 L (22-29) mmol/L BUN 34 H (9-16) mg/dL Creatinine 1.92 H (0.5-1.4) mg/dL POC Glucose 177 H 149 H (60-115) mg/dL Random Glucose 54 L* (60-115) mg/dL 04/12/25 Range/Units 11:27 PT (10.9-12.4) SEC INR (0.9-1.1) Chloride (96-108) mmol/L Carbon Dioxide (22-29) mmol/L BUN (9-16) mg/dL Creatinine (0.5-1.4) mg/dL POC Glucose 148 H (60-115) mg/dL Random Glucose (60-115) mg/dL BMP 04/12/25 06:04 Sodium 138 Potassium 4.4 Chloride 109 H Carbon Dioxide 20 L BUN 34 H Creatinine 1.92 H Calcium 8.5 Urine 04/09/25 Range/Units 16:15 Urine Color Yellow Urine Appearance Turbid Urine pH 5.5 (5.0-9.0) Ur Specific [place] 1.010 (1.005-1.025) Urine Protein 300 (3+) H (Neg-Trace) mg/dL Urine Glucose (UA) Negative (Negative) mg/dL All other labs normal. Assessment and Plan (1) Bladder spasm: Status: Acute Plan Continue Myrbetriq Change suprapubic tube Procedures Date of Service Date of Service: 04/12/25
[2025-04-12] MEDS: Milk of Magnesia 30 ML ORAL.SUSP PO (12:00)
--- NOTE | 2025-04-12 14:39 | MHC.CM.PN ---
EMR REVIEWED, PER HOSPITALIST PT NOT YET READY FOR DC D/T ULTRASOUND RESULTS AND NEED FOR UROLOGY, VASCULAR RECOMMENDING OUTPT FOLLOW-UP AND UROLOGY PLAN TO CHANGE SUPRAPUBIC CATH AND CONT NOHEMY MARCOS PT WILL BE CLEARED FOR DC TOMORROW TO [facility] WHO HAVE RECEIVED AUTH FROM [facility], PT PREBOOKED FOR 12:30PM, CM WILL CONT TO FOLLOW DC NEEDS.
[2025-04-12 16:23] LABS: Glucose, Whole Blood 192 mg/dL (60-115)
[2025-04-12] MEDS: Insulin Lispro 100 UNIT/ML 3 ML VIAL SUBCUT ×2 (17:35→20:56)
[2025-04-12] MEDS: levoFLOXacin 250 MG TABLET PO (17:35)
[2025-04-12 20:40] LABS: Glucose, Whole Blood 154 mg/dL (60-115)
[2025-04-12] MEDS: Insulin Glargine,Hum.rec.anlog 100 UNIT/ML 10 ML VIAL 15 UNIT SUBCUT (20:57)
[2025-04-12] MEDS: Atorvastatin Calcium 10 MG TABLET PO (21:00)
[2025-04-12] MEDS: Latanoprost 0.005 % Ophth Sol 2.5 ML DROPS 1 DROP EYE-BOTH (21:01)
[2025-04-13 03:31] VITALS: BP 110/58; PULSE 70; RESP 14; TEMP 36; O2SAT 95
[2025-04-13] MEDS: Levothyroxine Sodium 25 MCG TABLET PO (05:34)
[2025-04-13] MEDS: Doxycycline Monohydrate 100 MG CAPSULE PO (05:34)
[2025-04-13 06:13] LABS: INTERNATIONAL NORM RATIO 2.4 (0.9-1.1); Prothrombin Time 27.7 SEC (10.9-12.4)
[2025-04-13 06:18] LABS: Anion Gap 12 (12-20); Blood Urea Nitrogen 32 mg/dL (9-16); Calcium 8.6 mg/dL (8.4-10.2); Carbon Dioxide 24 mmol/L (22-29); Chloride 108 mmol/L (96-108); Creatinine Clr Calc Pharmacy 23.6; Estimated Glomerular Filt Rate 26; Glucose Random 115 mg/dL (60-115); Potassium 4.8 mmol/L (3.3-5.1); Sodium 139 mmol/L (135-145)
[2025-04-13 07:12] LABS: Glucose, Whole Blood 105 mg/dL (60-115)
[2025-04-13 08:00] VITALS: BP 141/68; PULSE 91; RESP 16; TEMP 36.7; O2SAT 93
[2025-04-13] MEDS: Clopidogrel Bisulfate 75 MG TABLET PO (08:28)
[2025-04-13] MEDS: Empagliflozin 10 MG TABLET PO (08:28)
[2025-04-13] MEDS: Furosemide 20 MG TABLET 10 MG PO (08:29)
[2025-04-13] MEDS: amLODIPine Besylate 5 MG TABLET PO (08:29)
[2025-04-13] MEDS: oxyCODONE HCl Immed Release 5 MG TABLET PO (08:29)
[2025-04-13] MEDS: Metoprolol Succinate ER 100 MG TAB.ER.24H 200 MG PO (08:29)
[2025-04-13] MEDS: Multivitamin TABLET 1 TAB PO (08:29)
[2025-04-13] MEDS: Mirabegron 50 MG TAB.ER.24H PO (08:29)
--- NOTE | 2025-04-13 08:59 | HO.VASCPN ---
Subjective Subjective Date of Service: 04/13/25 Interval history: Belen is doing well this morning. She is eating, drinking, and sleeping well. She denies any pain in her foot/toes. She has no new concerns this morning. Physical Exam Vital Signs: Vital Signs: Last Vital Signs Temp 98.0 F 04/13/25 08:00 Pulse 91 04/13/25 08:00 Resp 16 04/13/25 08:00 BP 141/68 H 04/13/25 08:00 Pulse Ox 93 04/13/25 08:00 O2 Del Method Room Air 04/13/25 08:00 BMI result Body Mass Index 28.7 Const: General: comfortable and no acute distress Orientation/consciousness: patient oriented x3 HEENT: Ears: hearing grossly normal bilaterally Resp: Effort & Inspection: normal respiratory effort and able to speak in complete sentences Auscultation: clear to auscultation bilaterally Cardio: Rate: regular rate Rhythm: regular rhythm Heart sounds: S1 normal heart sound present and S2 normal heart sound present Bruits: no abdominal aortic bruits, no carotid bruits, no femoral bruits and no renal bruits GI: Palpation (GI): No Abdominal aortic bruit present Neuro: General: patient oriented x3 Cranial nerves: Yes CN's II-XII intact bilaterally Extrem: Other: Left 3-5 toes: dusky discoloration noted on the base of the plantar and dorsal aspects of the foot. Not painful to palpation. DP pulses not palpable, able to find with Doppler. Foot is warm to the touch. No other discoloration noted in the foot. +1/2 pitting edema noted from the ankle to the pretibial area. Progress Note: A&P Assessment and plan (1) Peripheral artery disease: Status: Acute Assessment and Plan: Belen remains stable from a vascular standpoint. She has established care with the [facility]; I discussed with her this morning that she should follow up with them after she gets discharged for further evaluation and treatment; she is in agreement to this. If there are any questions or concerns, please do not hesitate to reach out to us. Time Spent With Patient Time: Total time managing care of this patient today ____ minutes. Procedures Date of Service Date of Service: 04/13/25 Quality Stroke Does the patient have a stroke diagnosis?: No VTE Prior VTE?: No VTE Risk Level:: Medical - moderate - high VTE Device Contraindication: Treatment Not Indicated VTE Drug Contraindication: N/A - Med Ordered
[2025-04-13] MEDS: Ascorbic Acid 500 MG TABLET 1000 MG PO (10:13)
--- NOTE | 2025-04-13 10:42 | MHC.CM.PN ---
Per MD patient medically cleared for dc to [facility]. [facility] transport booked for 1230 to [facility]. IMM delivered. RN aware.
--- NOTE | 2025-04-13 10:53 | PM.DS ---
DS: Providers Provider Date of Service: 04/13/25 Date of admission: 04/09/25 16:33 Date of discharge: 04/13/25 Primary care physician: Nano Delaney MD Consults: 04/09/25 17:48 Consult to Urology Routine Consulting Provider: [facility] Urology Services Reason for consultation: Blocked suprapubic cath, leakage around insertion site 04/09/25 18:18 Consult to Infectious Diseases Routine Consulting Provider: [facility] Infectious Disease Center Reason for consultation: UTI 04/10/25 08:57 Consult to Wound Care Routine Reason for consultation: leaking SPC 04/12/25 07:34 Consult to Urology Routine Consulting Provider: [facility] Urology Services Reason for consultation: leaking around suprapubic catheter, requested 04/0904/12/25 10:17 Consult to Vascular Surgery Routine Consulting Provider: [facility] Vascular Services Reason for consultation: severe occlusive arterial disease DS: Diagnosis Discharge Diagnosis (1) Peripheral artery disease: Status: Acute (2) Atrial fibrillation: Status: Acute (3) Acute kidney injury superimposed on CKD: Status: Acute (4) Suprapubic catheter: Status: Acute (5) Bladder spasm: Status: Acute (6) Acute UTI: Status: Acute (7) Diabetes mellitus with hypoglycemia: Status: Acute DS: Summary Hospital Course Hospital Course: From the history and physical by the admitting hospitalist, LYN Cotton, 04/09/25: Pt is an 84-year-old female with a PMH significant for?chronic AFib on Coumadin, chronic systolic CHF (EF 51%), CAD, CKD 3, insulin-dependent type 2 diabetes, hypothyroidism, HTN, and neurogenic bladder with suprapubic catheter who presents to the ED with?lower abdominal pain and no output from suprapubic catheter for the past 3 days. Pt's suprapubic catheter not connected to a drainage bag, but rather is capped and pt will drain urine into either a bucket or urinal. Pt follows with Dr. Sharma in Urology and has her catheter replaced every 3 weeks in the office. Pt reports has had no drainage from the catheter tubing for the past 3 days and had associated lower abdominal pain during this time. Pt has noticed increased urine drainage from around catheter insertion site, though also reports this is chronic and has been ongoing as long as she has had the catheter. Also has had intermittent episodes of diarrhea for the past few weeks, with last episode 1-2 days ago. Has been eating and drinking normally. No fever. Denies nausea, vomiting. No chest pain/pressure, palpitations. Denies shortness or breath or difficulty breathing. In the ED pt was tachycardic up to 105, vitals otherwise stable. Labs were significant for BUN 60, creatinine 2.75 (previous 1.84), and mildly elevated alk-phos of 133. Otherwise grossly unremarkable. No leukocytosis. Stable H&H. No significant electrolyte abnormalities. Lactic acid WNL. INR therapeutic at 2.7. Pt was treated in the ED with morphine, IVF, and ceftriaxone. In the ED suprapubic catheter was replaced with thick, cloudy, and bloody drainage. Pt is admitted to the hospital for treatment and further evaluation of DOROTHY on CKD in the setting of blocked suprapubic catheter and likely acute UTI. 84yo F with chronic AF on warfarin, chronic HF with mildly reduced EF, CAD s/p PCI x3, CKD3, DM2, hypothyroidism, HTN, and neurogenic bladder with SPC presenting with abd pain and no output from SPC for 3d, found to have blocked SPC, UTI, and DOROTHY. She was admitted to the medical-surgical unit. Hospital course by problem: DOROTHY/CKD3 - Likely prerenal, SCr back at baseline after holding furosemide + valsartan and giving IV fluids. Furosemide resumed 2 days prior to discharge. Valsartan resumed on discharge and should recheck BMP in 2 days. complicated UTI associated with SPC - History of Pseudomonas, MRSA, Achromobacter, and MRSA so covered broadly with daptomycin and cefepime, renally dosed 04/09-04/11; UCx contaminated, BCx negative; changed to doxycycline and levofloxacin 04/11-04/13 and discharged on these antibiotics to continue for 3 more days blocked SPC bladder spasm - Replaced in ED and draining well though with urine leaking around urethra; Urology consulted and attributed it to bladder spasm. Mirabegron dose increased from 25 to 50 mg daily. chronic AF - Warfarin was held for 2 days for INR 3.1 but was 2.4 on the day of discharge, so was resumed at prior dosing; recommend recheck in 2 days given antibiotic usage bilateral LE arterial occlusive disease - Vascular Surgery consulted; no urgent intervention recommended; should follow up with her vascular surgeon at [facility]; continued atorvastatin and clopidogrel She was discharged to SNF for short-term rehabilitation. Time Attestation Discharge Coordination Time (in mins): 40 Quality: Safe Use of Opioids Does Pt have an Active Cancer Diagnosis on the Problem List?: No Quality: Stroke Does the patient have a stroke diagnosis?: No Physical Exam Vital Signs: Vital Signs: Last Vital Signs Temp 98.0 F 04/13/25 08:00 Pulse 91 04/13/25 08:00 Resp 16 04/13/25 08:00 BP 141/68 H 04/13/25 08:00 Pulse Ox 93 04/13/25 08:00 O2 Del Method Room Air 04/13/25 08:00 BMI result Body Mass Index 28.7 Gen: in no acute distress HEENT: sclera anicteric, moist mucus membranes Neck: supple Lungs: clear to auscultation bilaterally Heart: irregular, no murmurs Abd: soft, non-tender, non-distended : SPC with urine leaking around tube, macerated skin Ext: trace bilateral leg edema Skin: L foot with decreased pulses, discoloration from yesterday resolved Neuro: alert and oriented x3, no focal findings Psych: appropriate affect DS: Data Data Completed and Pending Completed studies during hospitalization [Text1]: Laboratory Results WBC 8.5 X10*3/uL (4.8-10.8) 04/09/25 14:07 RBC 4.40 X10*6/uL (4.20-5.50) 04/09/25 14:07 Hgb 12.6 g/dl (12.0-16.0) 04/09/25 14:07 Hct 38.4 % (37.0-47.0) 04/09/25 14:07 MCV 87.3 fL (80.0-98.0) 04/09/25 14:07 MCH 28.6 pg (27.0-33.0) 04/09/25 14:07 MCHC 32.8 g/dl (31.0-35.0) 04/09/25 14:07 RDW 17.5 % (11.0-16.0) H 04/09/25 14:07 Plt Count 280 X10*3/uL (160-400) 04/09/25 14:07 MPV 8.8 fL (9.4-12.3) L 04/09/25 14:07 Immature Gran % (Auto) 0.7 % (0.0-0.4) H 04/09/25 14:07 Neut % (Auto) 48.6 % (45-73) 04/09/25 14:07 Lymph % (Auto) 21.8 % (20-40) 04/09/25 14:07 Collin % (Auto) 26.8 % (2-11) H 04/09/25 14:07 Eos % (Auto) 1.6 % (0-4) 04/09/25 14:07 Baso % (Auto) 0.5 % (0-2) 04/09/25 14:07 Lymph # (Auto) 1.9 X10*3/uL (1.2-4.9) 04/09/25 14:07 Collin # (Auto) 2.3 X10*3/uL (0.1-1.2) H 04/09/25 14:07 Eos # (Auto) 0.1 X10*3/uL (0.0-0.4) 04/09/25 14:07 Baso # (Auto) 0.0 X10*3/uL (0.0-0.2) 04/09/25 14:07 Abs Immat Gran (auto) 0.06 X10*3/uL (0.00-0.03) H 04/09/25 14:07 Absolute Neuts (auto) 4.2 x10*3/uL (2.0-8.3) 04/09/25 14:07 Absolute Nucleated RBC 0.000 X10*3/uL (0.0-0.012) 04/09/25 14:07 Nucleated RBC % (auto) 0.0 /100WBC (0.0-0.2) 04/09/25 14:07 Smear Tech's Comments VERIFIED 04/09/25 14:07 Hold Purple Top SEE NOTE 04/13/25 05:33 PT 27.7 SEC (10.9-12.4) H D 04/13/25 05:33 INR 2.4 (0.9-1.1) H 04/13/25 05:33 Sodium 139 mmol/L (135-145) 04/13/25 05:33 Potassium 4.8 mmol/L (3.3-5.1) 04/13/25 05:33 Chloride 108 mmol/L (96-108) 04/13/25 05:33 Carbon Dioxide 24 mmol/L (22-29) 04/13/25 05:33 Anion Gap 12 (12-20) 04/13/25 05:33 BUN 32 mg/dL (9-16) H 04/13/25 05:33 Creatinine 1.83 mg/dL (0.5-1.4) H 04/13/25 05:33 Estim Creat Clear Calc 23.6 04/13/25 05:33 Estimated GFR 26 04/13/25 05:33 POC Glucose 105 mg/dL (60-115) 04/13/25 07:08 Random Glucose 115 mg/dL (60-115) 04/13/25 05:33 Lactic Acid 1.8 mmol/L (0.5-2.0) 04/09/25 15:38 Calcium 8.6 mg/dL (8.4-10.2) 04/13/25 05:33 Total Bilirubin 0.5 mg/dL (0.0-1.0) 04/09/25 14:07 AST 21 U/L (5-31) 04/09/25 14:07 ALT 11 U/L (0-31) 04/09/25 14:07 Alkaline Phosphatase 133 U/L (39-117) H 04/09/25 14:07 B-Natriuretic Peptide 356 pg/mL (<100) H 04/11/25 06:30 Total Protein 8.1 g/dL (6.5-8.0) H 04/09/25 14:07 Albumin 3.5 g/dL (3.5-5.0) 04/09/25 14:07 Urine Color Yellow 04/09/25 16:15 Urine Appearance Turbid 04/09/25 16:15 Urine pH 5.5 (5.0-9.0) 04/09/25 16:15 Ur Specific [place] 1.010 (1.005-1.025) 04/09/25 16:15 Urine Protein 300 (3+) mg/dL (Neg-Trace) H 04/09/25 16:15 Urine Glucose (UA) Negative mg/dL (Negative) 04/09/25 16:15 Urine Ketones Negative mg/dL (Negative) 04/09/25 16:15 Urine Blood Large (3+) (Negative) H 04/09/25 16:15 Urine Nitrite Negative (Negative) 04/09/25 16:15 Ur Leukocyte Esterase Large (3+) (Negative) H 04/09/25 16:15 Urine RBC >20 /HPF (0-2) H 04/09/25 16:15 Urine WBC >50 /HPF (0-5) H 04/09/25 16:15 Ur Squamous Epith Cells >20 /HPF (0-2) 04/09/25 16:15 Urine Bacteria 4+ (None Seen) 04/09/25 16:15 Hyaline Casts 0-2 /LPF (0-2) 04/09/25 16:15 Impressions Duplex Scan Lower Extremity Artery 04/11/25 16:00 IMPRESSION: Right leg: Severe inflow disease from the popliteal artery to the dorsalis base artery. Concerning occluded peroneal and anterior tibialis arteries. Left leg: Severe inflow disease from the mid superficial femoral artery to the dorsalis pedis artery. Concerning occluded peroneal artery. Electronically signed by: Sandoval Craft MD 04/12/2025 08:24 AM EDT Discharge Plan Discharge Anticipated Discharge Date/Time: 04/13/25 10:43 Patient Disposition: Xfer [facility] Discharge Diagnosis: acute/chronic kidney injury urinary tract infection suprapubic catheter bladder spasm peripheral arterial disease diabetes type 2 with hypoglycemia Referrals: Nano Delaney MD [Primary Care Provider] - 1 Week Keith Sharma MD [Physician] - 2 Weeks Juan José Chaudhari MD [Physician] - 2 Weeks Discharge Medications: New insulin glargine [Lantus U-100 Insulin] 100 unit/mL Solution 15 unit subcut BEDTIME Qty: 10 0RF levofloxacin 250 mg Tablet 250 mg PO Q24H Qty: 3 0RF doxycycline monohydrate 100 mg Capsule 100 mg PO Q12H Qty: 6 0RF mirabegron [Myrbetriq] 50 mg Tablet Extended Release 24 Hr 50 mg PO DAILY Qty: 30 0RF Continued atorvastatin 10 mg tablet 10 mg PO BEDTIME Qty: 90 3RF metoprolol succinate 200 mg tablet extended release 24 hr 200 mg PO DAILY Qty: 90 3RF valsartan 40 mg tablet 20 mg PO BID Qty: 30 0RF PreserVision AREDS 2,148 mcg-113 mg-45 mg-17.4mg Tablet 1 tab PO BIDWM Rx Instructions: administer with AM and PM meals furosemide 20 mg tablet 10 mg PO BID warfarin 1 mg tablet 2 mg PO .COMPLEX Protocol: Dose Management Condition: Thursday (Week One) Dose/Route: 1 mg Instruction: 1 x 1 mg tablet Condition: Thursday Dose/Route: 2 mg Instruction: 2 x 1 mg tablets Condition: Thursday Dose/Route: 1 mg Instruction: 1 x 1 mg tablet Condition: Thursday Dose/Route: 2 mg Instruction: 2 x 1 mg tablets Condition: Dose/Route: 1 mg Instruction: 1 x 1 mg tablet Condition: Thursday Dose/Route: 2 mg Instruction: 2 x 1 mg tablets Condition: Thursday Dose/Route: 1 mg Instruction: 1 x 1 mg tablet Condition: Thursday (Week Two) Dose/Route: 1 mg Instruction: 1 x 1 mg tablet Condition: Thursday Dose/Route: 2 mg Instruction: 2 x 1 mg tablets Condition: Thursday Dose/Route: 1 mg Instruction: 1 x 1 mg tablet Condition: Thursday Dose/Route: 2 mg Instruction: 2 x 1 mg tablets Condition: Dose/Route: 1 mg Instruction: 1 x 1 mg tablet Condition: Thursday Dose/Route: 2 mg Instruction: 2 x 1 mg tablets Condition: Thursday Dose/Route: 1 mg Instruction: 1 x 1 mg tablet Protocol Text: Adjustment Start Date: 03/30/25 INR Value: 2.4 INR Date: 03/30/25 Recheck Date: 04/06/25 Rx Instructions: 2 mg orally 1MG X 5 DAYS/ 2MG X 2 DAYS; warfarin 1 mg tablet 2 mg PO MOWEFR warfarin 1 mg tablet 1 mg PO SUTUTHSA melatonin 10 mg Tablet 10 mg PO BEDTIME Jardiance 10 mg Tablet 10 mg PO DAILY Qty: 30 0RF levothyroxine 25 mcg tablet 25 mcg PO DAILY@0600 (DME) pen needle, diabetic [BD Cathy 2nd Gen Pen Needle] 32 gauge x 5/32 needle See Rx Instructions subcut DAILY Qty: 50 Rx Instructions: As directed (DME) lancets [FreeStyle Lancets] 28 gauge misc See Rx Instructions .ROUTE BID Qty: 100 Rx Instructions: As directed multivitamin [One Daily Multivitamin] Tablet 1 tab PO DAILY amlodipine 5 mg tablet 5 mg PO DAILY ascorbic acid (vitamin C) 1,000 mg tablet 1 g PO DAILY Qty: 90 1RF (DME) interdry See Rx Instructions .Route .MEDSUPPLY Qty: 1 12RF Rx Instructions: As directed. Apply interdry to abdominal and inguinal folds. clopidogrel 75 mg tablet 75 mg PO DAILY latanoprost 0.005 % drops 1 drp ophthalmic (eye) BEDTIME insulin lispro [Humalog KwikPen Insulin] 100 unit/mL insulin pen See Protocol subcut BID Protocol: Insulin Correction Scale Less than or equal to 110 ---- Give (units): 0 111 to 150 Give (units): 0 151 to 200 Give (units): 2 201 to 250 Give (units): 4 251 to 300 Give (units): 6 301 to 350 Give (units): 8 Greater than 350 Give (units): 10 Call MD if Blood Glucose > : 350 Discontinued Myrbetriq 25 mg tablet extended release 24 hr 25 mg PO DAILY 30 Days Qty: 30 3RF insulin glargine [Lantus U-100 Insulin] 100 unit/mL solution 25 unit subcut BEDTIME Qty: 10 0RF Discharge Orders: Discharge Order (Routine); Ordered 04/13/25 Ordered By: Ha Adame Diet: Diabetic diet Activity on Discharge: As tolerated Stand Alone Forms: Patient Portal Discharge page Print Language: Burundian Other Ambulatory Orders: Basic Metabolic Panel (Routine) Timeframe: 2 Days Facility: [facility] - Location: Laboratory Ordered By: Ha Adame Prothrombin Time INR (Routine) Timeframe: 2 Days Facility: [facility] - Location: Laboratory Ordered By: Ha Adame Care Plan Goals: recovery from infection vascular health Health Concerns: acute/chronic kidney injury urinary tract infection suprapubic catheter bladder spasm peripheral arterial disease diabetes type 2 with hypoglycemia Plan of Treatment: repeat basic metabolic panel in 2 days take levofloxacin 250 mg daily PLUS doxycycline 100 mg twice daily for total 3 days follow up with [facility] Urology in 2 weeks increase mirabegron from 25 mg to 50 mg once daily follow up with [facility] in 2 weeks decrease Lantus from 25 to 15 units daily continue warfarin; recheck INR in 2 days Please follow up with your primary care doctor within 1 week of discharge from rehab. Return to the hospital if you experience recurrent or worsening symptoms. Wound Care: Buttock and Perineal - Off Load Pressure with Q2 hr turns and use of pillows - Cleanse with PH balance spray or wipes, pat dry. ?Apply thin layer of Triad to wound bed - only pat and dab no scrub and rub when soiling occurs. Reapply thin layer PRN after each episode of incontinence. Right Upper Arm - Cleanse with routine cleansing. Cover with foam dressing. Change every 5-7 days. Right Heel - Preventative foam applied - float heels off of bed and recliner surface with pillows. Remove and assess Q shift and change every 7 days. Assessment: See Discharge Summary.
[2025-04-13 11:17] LABS: Glucose, Whole Blood 183 mg/dL (60-115)
[2025-04-13] MEDS: Insulin Lispro 100 UNIT/ML 3 ML VIAL SUBCUT (11:45)
[2025-04-13 12:34] VITALS: BP 110/64; PULSE 100; RESP 18; TEMP 36.7; O2SAT 98
== END 2025-04-13 12:45 | disposition skilled nursing facility (03) | DRG 699 ==
LOC: HO.ED 13:50 → HO.EDOVER 17:17 → HO.S3 19:52
PROVIDERS: Nurse Practitioner Family; Admitting Provider Student in an Organized Health Care Education/Training Program; Emergency Provider Emergency Medicine; PCP Internal Medicine; Visit Provider Family Medicine
DX: T83.098A Other mechanical complication of other urinary catheter, initial encounter (principal); I13.0 Hypertensive heart and chronic kidney disease with heart failure and stage 1 through stage 4 chronic kidney disease, or unspecified chronic kidney disease; N17.9 Acute kidney failure, unspecified; I50.22 Chronic systolic (congestive) heart failure; I48.19 Other persistent atrial fibrillation; N39.0 Urinary tract infection, site not specified; E03.9 Hypothyroidism, unspecified; E11.22 Type 2 diabetes mellitus with diabetic chronic kidney disease; N18.30 Chronic kidney disease, stage 3 unspecified; I25.10 Atherosclerotic heart disease of native coronary artery without angina pectoris; N31.9 Neuromuscular dysfunction of bladder, unspecified; E11.51 Type 2 diabetes mellitus with diabetic peripheral angiopathy without gangrene; I70.201 Unspecified atherosclerosis of native arteries of extremities, right leg; Y73.8 Miscellaneous gastroenterology and urology devices associated with adverse incidents, not elsewhere classified; Z87.440 Personal history of urinary (tract) infections; N32.89 Other specified disorders of bladder; E11.649 Type 2 diabetes mellitus with hypoglycemia without coma; Z95.5 Presence of coronary angioplasty implant and graft; Z79.4 Long term (current) use of insulin; Z79.01 Long term (current) use of 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; Z79.02 Long term (current) use of antithrombotics/antiplatelets; Z79.890 Hormone replacement therapy; Z79.899 Other long term (current) drug therapy
CPT/HCPCS: 36415; 80048; 80053; 81001; 81003; 82947; 83605; 83880; 85025; 85610; 87040; 87086; 93925; 97162; 99285; J0692; J0696; J0878; J2270; J7120

== ENCOUNTER 2025-04-09 16:33 | Outpatient (BNV) | payer MEDICARE, SELFPAY | END 2025-04-11 16:00 | PROVIDERS: Admitting Provider Student in an Organized Health Care Education/Training Program; Emergency Provider Emergency Medicine; PCP Internal Medicine; Visit Provider Radiology Diagnostic Radiology | DX: I77.89 Other specified disorders of arteries and arterioles (principal) | CPT/HCPCS: 93925 ==

== ENCOUNTER → 2025-04-09 16:33 | Outpatient (BNV) | payer MEDICARE, SELFPAY | PROVIDERS: Admitting Provider Student in an Organized Health Care Education/Training Program; Emergency Provider Emergency Medicine; PCP Internal Medicine; Visit Provider Student in an Organized Health Care Education/Training Program | DX: N17.9 Acute kidney failure, unspecified (principal); N18.9 Chronic kidney disease, unspecified; N39.0 Urinary tract infection, site not specified; Z93.59 Other cystostomy status | CPT/HCPCS: 99223; 99232; 99233 ==

== ENCOUNTER → 2025-04-09 16:33 | Outpatient (BNV) | payer MEDICARE, SELFPAY | PROVIDERS: Admitting Provider Student in an Organized Health Care Education/Training Program; Emergency Provider Emergency Medicine; PCP Internal Medicine; Visit Provider Internal Medicine | DX: N17.9 Acute kidney failure, unspecified (principal); N18.9 Chronic kidney disease, unspecified | CPT/HCPCS: 99232 ==

== ENCOUNTER → 2025-04-09 16:33 | Outpatient (BNV) | payer MEDICARE, SELFPAY | PROVIDERS: Admitting Provider Student in an Organized Health Care Education/Training Program; Emergency Provider Emergency Medicine; PCP Internal Medicine; Visit Provider Urology | DX: N32.89 Other specified disorders of bladder (principal) | CPT/HCPCS: 99222 ==

== ENCOUNTER → 2025-04-09 16:33 | Outpatient (BNV) | payer MEDICARE, SELFPAY | PROVIDERS: Admitting Provider Student in an Organized Health Care Education/Training Program; Emergency Provider Emergency Medicine; PCP Internal Medicine; Visit Provider Physician Assistant Surgical | DX: I73.9 Peripheral vascular disease, unspecified (principal) | CPT/HCPCS: 99222; 99232 ==

== ENCOUNTER → 2025-04-28 13:50 | Outpatient (BNVA) | payer MEDICARE, SELFPAY | PROVIDERS: PCP Internal Medicine; Visit Provider Urology | DX: Z46.6 Encounter for fitting and adjustment of urinary device (principal); Z93.59 Other cystostomy status | CPT/HCPCS: 51705 ==

== ENCOUNTER 2025-05-04 16:38 | Emergency (ER) | payer MEDICARE, SELFPAY ==
[2025-05-04 16:42] VITALS: BP 129/77; PULSE 85; RESP 16; TEMP 36.6; O2SAT 95; BMI 28.8
--- OUTSIDE RECORDS SUMMARY | 2025-05-04 18:24 | XMS_ITS | Clinical Summary ---
Author Organization [facility] Address [address] [place] [address] Phone Care Team Providers Care Ballpoint Pen Assembly Machine Operator Name Role Phone Nano Delaney MD [...] patient's age to complete this topic Insurance [facility] Medicare [facility] Medicare Care Teams Ballpoint Pen Assembly Machine Operator Relationship Specialty Start Date End Date Nano Delaney MD [address] [place] [address] PCP - General 11/12/20
--- OUTSIDE RECORDS SUMMARY | 2025-05-04 18:24 | XMS_ITS | Encounter Summary ---
Author Organization [facility] Address [address] [place] [address] Care Team Providers Care Concrete Mixing Plant Superintendent Name Role Phone Vinnie Shay MD Primary Care Provider [phone] Encounter Details Date Type Department Care Team (Latest Contact Info) Description 04/15/2025 Lab Requisition [facility] - Main Lab [address] [place] [address] Vinnie Shay MD [address] [place] [address] Other mechanical complication of other urinary catheter, subsequent encounter; senior living (current) use of 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 Social History Tobacco Use Types Packs/Day Years Used Date Smoking Tobacco: Never Assessed Comments Unknown Sex and Gender Information Value Date Recorded Sex Assigned at Not on file Legal Sex Female 4:40 PM EST Gender Identity Not on file Sexual Orientation Not on file documented as of this encounter Plan of Treatment Not on file documented as of this encounter Procedures Procedure Name Priority Date/Time Associated Diagnosis Comments PROTHROMBIN TIME WITH INR Routine 04/15/2025 8:01 AM EDT Other mechanical complication of other urinary catheter, subsequent encounter terminal superintendent (current) use of 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 COMPLETE BLOOD COUNT Routine 04/15/2025 8:01 AM EDT Other mechanical complication of other urinary catheter, subsequent encounter terminal superintendent (current) use of 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 COMPREHENSIVE METABOLIC PANEL Routine 04/15/2025 8:01 AM EDT Other mechanical complication of other urinary catheter, subsequent encounter senior living (current) use of 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 documented in this encounter Results * (ABNORMAL) Comprehensive metabolic panel (04/15/2025 8:01 AM EDT) Sodium 138 133 - 145 mmol/L LAB CHEMISTRY METHOD 04/15/2025 1:03 PM [facility] Potassium 4.1 3.5 - 5.5 mmol/L LAB CHEMISTRY METHOD 04/15/2025 1:03 PM [facility] Chloride 107 96 - 110 mmol/L LAB CHEMISTRY METHOD 04/15/2025 1:03 PM [facility] CO2 23 21 - 32 mmol/L LAB CHEMISTRY METHOD 04/15/2025 1:03 PM [facility] Anion Gap 8 3 - 11 LAB CHEMISTRY METHOD 04/15/2025 1:03 PM [facility] Glucose 117(H) 70 - 100 mg/dL LAB CHEMISTRY METHOD 04/15/2025 1:03 PM [facility] BUN 31(H) 5 - 25 mg/dL LAB CHEMISTRY METHOD 04/15/2025 1:03 PM [facility] Creatinine 1.83(H) 0.50 - 1.10 mg/dL LAB CHEMISTRY METHOD 04/15/2025 1:03 PM [facility] eGFR 27(L) >=60 mL/min/1. 73m2 LAB CHEMISTRY METHOD 04/15/2025 1:03 PM [facility] Comment:Calculation based on the Chronic Kidney Disease Epidemiology Collaboration (CKD-EPI) equation refit without adjustment for race. BUN/Creatinine Ratio 16.9 LAB CHEMISTRY METHOD 04/15/2025 1:03 PM [facility] Calcium 8.8 8.5 - 10.5 mg/dL LAB CHEMISTRY METHOD 04/15/2025 1:03 PM [facility] AST (SGOT) 22 10 - 42 unit/L LAB CHEMISTRY METHOD 04/15/2025 1:03 PM [facility] ALT (SGPT) 21 10 - 60 unit/L LAB CHEMISTRY METHOD 04/15/2025 1:03 PM EDT [facility] Alkaline Phosphatase 156(H) 42 - 121 unit/L LAB CHEMISTRY METHOD 04/15/2025 1:03 PM EDT [facility] Total Protein 8.2(H) 6.0 - 8.0 g/dL LAB CHEMISTRY METHOD 04/15/2025 1:03 PM EDT [facility] Albumin 3.1(L) 3.2 - 5.0 g/dL LAB CHEMISTRY METHOD 04/15/2025 1:03 PM EDT [facility] Total Bilirubin 0.5 0.0 - 1.4 mg/dL LAB CHEMISTRY METHOD 04/15/2025 1:03 PM EDT [facility] Blood Venous blood specimen / Unknown Venipuncture / Unknown 04/15/2025 8:01 AM EDT 04/15/2025 12:13 PM EDT us Vinnie Shay MD LAB BLOOD ORDERABLES Final Resu lt [facility] [address] [place] [address], [place] [phone] * (ABNORMAL) Prothrombin time with INR (04/15/2025 8:01 AM EDT) Protime 21.0(H) 10.6 - 13.9 sec LAB COAGULATION METHOD 04/15/2025 12:48 PM EDT [facility] INR 1.7 LAB COAGULATION METHOD 04/15/2025 12:48 PM EDT [facility] Blood Venous blood specimen / Unknown Venipuncture / Unknown 04/15/2025 8:01 AM EDT 04/15/2025 12:13 PM EDT us Vinnie Shay MD LAB BLOOD ORDERABLES Final Resu lt [facility] [address] [place] [address], * (ABNORMAL) Complete blood count (04/15/2025 8:01 AM EDT) [facility] WBC 9.3 4.8 - 10.8 K/mcL LAB HEMETOLOGY METHOD 04/15/2025 12:34 PM [facility] RBC 4.60 3.80 - 4.80 M/mcL LAB HEMETOLOGY METHOD 04/15/2025 12:34 PM [facility] Hemoglobin 12.7 11.5 - 16.0 g/dL LAB HEMETOLOGY METHOD 04/15/2025 12:34 PM [facility] Hematocrit 42.4 35.0 - 47.0 % LAB HEMETOLOGY METHOD 04/15/2025 12:34 PM [facility] MCV 92.6 79.0 - 98.0 FL LAB HEMETOLOGY METHOD 04/15/2025 12:34 PM [facility] MCH 27.7 27.0 - 32.0 pcg LAB HEMETOLOGY METHOD 04/15/2025 12:34 PM [facility] MCHC 30.0(L) 32.0 - 37.0 g/dL LAB HEMETOLOGY METHOD 04/15/2025 12:34 PM [facility] RDW 18.0(H) 11.0 - 15.0 % LAB HEMETOLOGY METHOD 04/15/2025 12:34 PM [facility] Platelets 343 130 - 400 K/mcL LAB HEMETOLOGY METHOD 04/15/2025 12:34 PM [facility] MPV 8.9 7.0 - 11.0 FL LAB HEMETOLOGY METHOD 04/15/2025 12:34 PM [facility] NRBC 0.0 <1.0 % LAB HEMETOLOGY METHOD 04/15/2025 12:34 PM EDT [facility] NRBC Absolute 0.00 <0.10 K/mcL LAB HEMETOLOGY METHOD 04/15/2025 12:34 PM EDT [facility] Blood Venous blood specimen / Unknown Venipuncture / Unknown 04/15/2025 8:01 AM EDT 04/15/2025 12:13 PM EDT Vinnie Shay MD LAB BLOOD ORDERABLES Final Resu lt [facility] [address] [place] [address], documented in this encounter Visit Diagnoses Diagnosis Other mechanical complication of other urinary catheter, subsequent encounter senior living (current) use of 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 Long-term (current) use of 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 documented in this encounter Care Teams Concrete Mixing Plant Superintendent Relationship Specialty Start Date End Date Vinnie Shay MD [address] [place] [address] PCP - General Internal Medicine 04/17/25 documented as of this encounter
--- OUTSIDE RECORDS SUMMARY | 2025-05-04 18:24 | XMS_ITS | Clinical Summary ---
Author Organization [facility] Address [address] [place] [address] Care Team Providers Care Library Cataloging Technician Name Role Phone Unavailable Primary Care [...] - 2023-2 5 season) 2024 Influenza (#1) 2025 HPV Vaccine Aged Out No longer [...]
--- NOTE | 2025-05-04 18:29 | ED.FEMALEGU ---
HPI - Female Genitourinary General Chief complaint: Urogenital-Female Stated complaint: blocked catheter; causing pain; leaking Time Seen by Provider: 05/04/25 18:08 Source: patient Mode of arrival: wheelchair Limitations: no limitations History of Present Illness ED Provider: Nilesh NICHOLSON HPI Narrative: The patient is an 84-year-old female with history of CAD, diabetes, atrial fibrillation, diabetic neuropathy, bladder spasm and a chronic suprapubic Healy catheter for the past 7 years, presenting to the ED for evaluation of catheter complication. The patient reports the catheter was last changed approximately 2-3 weeks ago, initially patient had no issues however over the past few days the patient reports no drainage from the catheter and urine has begun leaking from the insertion site. The patient denies associated fever/chills, nausea, vomiting, or other systemic complaint. The patient reports some mild pelvic discomfort but denies overt pain. The patient reports she was treated approximately 1 month ago for a UTI, is not currently on antibiotics. Patient reports the Healy catheter is a 20 [place]. Related Data Home Medications ?Medication ?Instructions ?Recorded ?Confirmed levothyroxine 25 mcg tablet 25 mcg PO DAILY@0600 09/05/20 05/01/25 pen needle, diabetic 32 gauge x #50 ea 12/31/21 05/01/25 (BD Cathy 2nd Gen Pen Needle) multivitamin (One Daily 1 tab PO DAILY 09/15/22 05/01/25 Multivitamin tablet) lancets 28 gauge (FreeStyle #100 ea 09/29/22 05/01/25 Lancets) vitamins A,C,C-myma-ebnpdo 2,148 1 tab PO BIDWM 05/09/23 05/01/25 mcg-113 mg-45 mg-17.4 mg tablet (PreserVision AREDS) amlodipine 5 mg tablet 5 mg PO DAILY 11/13/23 05/01/25 furosemide 20 mg tablet 10 mg PO BID 06/17/24 05/01/25 clopidogrel 75 mg tablet 75 mg PO DAILY 08/01/24 05/01/25 latanoprost 0.005 % eye drops 1 drp ophthalmic (eye) BEDTIME 09/19/24 05/01/25 insulin lispro 100 unit/mL See Protocol subcut BID 02/09/25 05/01/25 subcutaneous pen (Humalog KwikPen (U-100) Insulin) melatonin 10 mg tablet 10 mg PO BEDTIME 04/09/25 05/01/25 warfarin 1 mg tablet 2 mg PO .COMPLEX 04/27/25 05/01/25 Previous Rx's ?Medication ?Instructions ?Recorded atorvastatin 10 mg tablet 10 mg PO BEDTIME #90 tabs 09/22/22 empagliflozin 10 mg tablet 10 mg PO DAILY #30 tabs 09/02/23 (Jardiance) metoprolol succinate 200 mg 200 mg PO DAILY #90 tabs 06/09/24 tablet,extended release 24 hr ascorbic acid (vitamin C) 1,000 mg 1 g PO DAILY #90 tabs 08/23/24 tablet interdry #1 ea 08/23/24 valsartan 40 mg tablet 20 mg (1/2 x 40 mg) PO BID #30 tabs 12/08/24 insulin glargine 100 unit/mL 15 unit (0.15 mL) subcut BEDTIME 04/13/25 subcutaneous solution (Lantus #10 mL U-100 Insulin) levofloxacin 250 mg tablet 250 mg PO Q24H #3 tabs 04/13/25 mirabegron 50 mg tablet,extended 50 mg PO DAILY #30 tabs 04/13/25 release 24 hr (Myrbetriq) levofloxacin 750 mg tablet 750 mg PO DAILY 5 days #5 tabs 05/04/25 Allergies Allergy/AdvReac Type Severity Reaction Status Date / Time No Known Allergies Allergy Verified 05/04/25 16:45 Review of Systems Review of Systems: Yes all other systems are reviewed and are negative [facility] Past Medical History Medical History (Updated 05/04/25 @ 22:49 by Nilesh Blanton PA-C) Suprapubic catheter Atrial fibrillation Hydronephrosis determined by ultrasound Permanent atrial fibrillation DOROTHY (acute kidney injury) Atrial fibrillation Neuropathy Neurogenic bladder CVA (cerebral vascular accident) Shingles Elevated cholesterol Myocardial infarction MRSA infection Hip pain Leg wound, left Varicose vein of leg Osteoarthritis of right hip Current use of anticoagulant therapy Recurrent UTI PAF (paroxysmal atrial fibrillation) Congestive heart failure Urinary incontinence Hypothyroidism Diabetes Hypertension CKD (chronic kidney disease) CAD (coronary artery disease) Hypotonic neurogenic bladder Surgical History (Updated 04/21/25 @ 00:02 by Amari Adame) History of left knee replacement History of right knee joint replacement H/O heart artery stent H/O nasal polypectomy History of tubal ligation History of tonsillectomy and adenoidectomy Hx of cholecystectomy Family History Family History Father Hx of angina pectoris Myocardial infarction Mother Ovarian cancer Stomach cancer Maternal Grandfather Hardening of the arteries of the heart Other Neurogenic bladder Social History Social History Household Members: Family Household Members Other:: daughter Housing: House Are you a primary home care coordinator to a significant other at home: No Do you presently have visiting nurse or other home services: Yes (meals on wheels 5 days) Alcohol intake: never Comment: [facility] Patient Tobacco Use Status: Never used Tobacco Second Hand Smoke Exposure: No Advance Directives Date on File: 08/27/22 service: No Current occupational status: retired Physical Exam Vital Signs: Vital Signs: Last Vital Signs Temp 97.8 F 05/04/25 19:28 Pulse 89 05/04/25 19:28 Resp 16 05/04/25 16:42 BP 127/55 L 05/04/25 19:28 Pulse Ox 97 05/04/25 19:28 O2 Del Method Room Air 05/04/25 19:28 BMI result Body Mass Index 28.8 CONSTITUTIONAL: The patient appears non-toxic, well nourished and in no acute distress. Vital signs as documented. HEAD: Atraumatic, normocephalic. EYES: EOMs grossly intact, pupils equal, conjunctiva clear, no exudate. ENT: Nares patent, no discharge. Airway patent, no audible stridor, visible mucosa is pink and moist without noted lesions. NECK: trachea is midline, no obvious masses or gross abnormalities. CHEST: Symmetric movement, normal appearance. LUNGS: Non-labored work of breathing. CARDIAC: No evidence of hypoperfusion. ABDOMEN: Nondistended, no obvious injury. Suprapubic Healy catheter is noted in place, in crease of pannus, with active leaking of urine noted around the insertion site, mild maceration of skin appreciated. : Deferred. EXTREMITIES: Moves all extremities spontaneously without reported pain. No obvious injury or deformity noted. NEURO: Alert and oriented x3, CN II-XII appear grossly intact. Cerebellar Functioning grossly intact. Speech clear and appropriate. SKIN: Warm, dry, color appropriate. No rashes or lesions noted. Medical Decision Making Medical Decision Making MDM Narrative: 6:33 PM 05/04/2025 (Bairon NICHOLSON): The patient is an 84-year-old female presenting to the ED for evaluation of a leaking and potentially blocked suprapubic catheter. Patient has no systemic complaints. The Healy catheter will be replaced and a urine sample will be sent. Pending no evidence of recurrent UTI patient will be discharged to follow up with her urologist. 7:18 PM 05/04/2025 (Bairon NICHOLSON): The patient's catheter was exchanged successfully without difficulty, complication, or significant discomfort. The patient's urine appears opaque, consistent with active infection. The patient's urine will be sent for UA and we will obtain basic CBC and chemistries. Patient will require antibiotic therapy, we will consider inpatient with IV versus outpatient with PO based on laboratory evaluation. 10:47 PM 05/04/2025 (Bairon NICHOLSON): Patient's urinalysis is similar to previous, consistent with UTI. The patient's laboratory evaluation reveals no leukocytosis. The patient remains afebrile. The patient's chemistry shows CKD which is largely unchanged from her baseline. The patient will be treated for UTI, patient was offered admission versus discharge home with follow up with Urology, patient is requesting discharge home at this time. Patient will be discharged with antibiotics and urology follow up. Admission/Observation Consideration of admission/observation: Escalation of care including admission/observation considered Lab Data MDM Lab Attestation statement: I reviewed the patient's lab results. 05/04/25 20:20 05/04/25 20:20 Labs: Lab Results 05/04/25 05/04/25 Range/Units 20:20 20:28 WBC 6.1 (4.8-10.8) X10*3/uL RBC 4.50 (4.20-5.50) X10*6/uL Hgb 13.0 (12.0-16.0) g/dl Hct 40.2 (37.0-47.0) % MCV 89.3 (80.0-98.0) fL MCH 28.9 (27.0-33.0) pg MCHC 32.3 (31.0-35.0) g/dl RDW 17.0 H (11.0-16.0) % Plt Count 265 (160-400) X10*3/uL MPV 9.0 L (9.4-12.3) fL Immature Gran % (Auto) 0.7 H (0.0-0.4) % Neut % (Auto) 45.9 (45-73) % Lymph % (Auto) 23.9 (20-40) % [place] % (Auto) 25.7 H (2-11) % Eos % (Auto) 3.3 (0-4) % Baso % (Auto) 0.5 (0-2) % Lymph # (Auto) 1.5 (1.2-4.9) X10*3/uL [place] # (Auto) 1.6 H (0.1-1.2) X10*3/uL Eos # (Auto) 0.2 (0.0-0.4) X10*3/uL Baso # (Auto) 0.0 (0.0-0.2) X10*3/uL Abs Immat Gran (auto) 0.04 H (0.00-0.03) X10*3/uL Absolute Neuts (auto) 2.8 (2.0-8.3) x10*3/uL Absolute Nucleated RBC 0.000 (0.0-0.012) X10*3/uL Nucleated RBC % (auto) 0.0 (0.0-0.2) /100WBC Smear Tech's Comments VERIFIED Sodium 134 L (135-145) mmol/L Potassium 4.7 (3.3-5.1) mmol/L Chloride 102 (96-108) mmol/L Carbon Dioxide 23 (22-29) mmol/L Anion Gap 14 (12-20) BUN 48 H (9-16) mg/dL Creatinine 2.24 H (0.5-1.4) mg/dL Estim Creat Clear Calc 20.1 Estimated GFR 21 POC Glucose 130 H (60-115) mg/dL Random Glucose 134 H (60-115) mg/dL Calcium 9.1 (8.4-10.2) mg/dL Total Bilirubin 0.6 (0.0-1.0) mg/dL AST 30 (5-31) U/L ALT 13 (0-31) U/L Alkaline Phosphatase 132 H (39-117) U/L Total Protein 8.3 H (6.5-8.0) g/dL Albumin 3.7 (3.5-5.0) g/dL Urine Color Yellow Urine Appearance Turbid Urine pH 6.5 (5.0-9.0) Ur Specific [place] 1.010 (1.005-1.025) Urine Protein 300 (3+) H (Neg-Trace) mg/dL Urine Glucose (UA) 500 H (Negative) mg/dL Urine Ketones Negative (Negative) mg/dL Urine Blood Large (3+) H (Negative) Urine Nitrite Negative (Negative) Ur Leukocyte Esterase Large (3+) H (Negative) Urine RBC >20 H (0-2) /HPF Urine WBC >50 (0-5) /HPF Ur Squamous Epith Cells 3-5 (0-2) /HPF Urine Bacteria 4+ (None Seen) Hyaline Casts 0-2 (0-2) /LPF External Record Review External record reviewed: Outpatient record Procedures Catheter Insertion (Urinary) Date of insertion: 05/04/25 Time of insertion: 19:16 Reason for placing indwelling catheter: Other (Complication with existing catheter) Bladder scan/ultrasound used before catheterization: No Antiseptic solution prep: Povidone-Iodine Topical anesthesia used: No Catheter type/location: Suprapubic Size (Bolivian): 20 Catheter balloon size (mL): 10 Catheter balloon amount: 10 Results: successfully catheterized-immediate flow Procedure performed: without complications Comment: Urine obtained was opaque, concerning for acute infection Discharge Plan Discharge Clinical Impression: Acute UTI (urinary tract infection) Complication, blocked suprapubic catheter Qualifiers: Encounter type: initial encounter Qualified Code(s): T83.090A - Other mechanical complication of cystostomy catheter, initial encounter Patient Disposition: Home, Self-Care Instructions: How to Care for Your Suprapubic Catheter (DC), Catheter-associated Urinary Tract Infection (ED) Additional Instructions: Thank you for choosing [facility]'s Emergency Department for your care today. Your suprapubic Healy catheter today was blocked, it was replaced with a new catheter and should result in decreased leaking around the catheter site. Your urinalysis shows evidence of a recurrent urinary tract infection, we are treating you with Levaquin, please take this daily as prescribed until it is finished. Your laboratory evaluation thankfully was reassuring and largely consistent with your previous laboratory evaluations. At this time there is no evidence of an acute process requiring admission to the hospital or continued ED observation, and it is safe to discharge you home as you have requested. You may take Tylenol 1000mg every 4 hours as needed for any additional pain. Please stay well hydrated and get plenty of rest. Please continue taking all your regularly prescribed medications. Please follow-up with your urologist for re-evaluation and continued management of your catheter. Please also follow up with your primary care physician for re-evaluation, additional management of your symptoms, and continued preventative care. If you do not have a primary care physician, please call the [facility] at [phone] to establish a new primary care physician. While waiting to establish your new primary care physician, you can call our Walk-in Care [facility] at [phone] for non-emergency needs. Please return to the emergency department if you develop a severe or sudden change in your symptoms, a fever over 100.4 that does not improve with Tylenol or Ibuprofen, recurrent vomiting, or any other new or worsening symptoms or concerns. Prescriptions: New levofloxacin 750 mg tablet 750 mg PO DAILY 5 Days Qty: 5 0RF No Action atorvastatin 10 mg tablet 10 mg PO BEDTIME Qty: 90 3RF metoprolol succinate 200 mg tablet extended release 24 hr 200 mg PO DAILY Qty: 90 3RF valsartan 40 mg tablet 20 mg PO BID Qty: 30 0RF PreserVision AREDS 2,148 mcg-113 mg-45 mg-17.4mg Tablet 1 tab PO BIDWM Rx Instructions: administer with AM and PM meals furosemide 20 mg tablet 10 mg PO BID melatonin 10 mg Tablet 10 mg PO BEDTIME insulin glargine [Lantus U-100 Insulin] 100 unit/mL Solution 15 unit subcut BEDTIME Qty: 10 0RF levofloxacin 250 mg Tablet 250 mg PO Q24H Qty: 3 0RF mirabegron [Myrbetriq] 50 mg Tablet Extended Release 24 Hr 50 mg PO DAILY Qty: 30 0RF warfarin 1 mg tablet 2 mg PO .COMPLEX Protocol: Dose Management Condition: Thursday (Week One) Dose/Route: 1 mg Instruction: 1 x 1 mg tablet Condition: Thursday Dose/Route: 2 mg Instruction: 2 x 1 mg tablets Condition: Thursday Dose/Route: 1 mg Instruction: 1 x 1 mg tablet Condition: Thursday Dose/Route: 2 mg Instruction: 2 x 1 mg tablets Condition: Dose/Route: 1 mg Instruction: 1 x 1 mg tablet Condition: Thursday Dose/Route: 2 mg Instruction: 2 x 1 mg tablets Condition: Thursday Dose/Route: 1 mg Instruction: 1 x 1 mg tablet Condition: Thursday (Week Two) Dose/Route: 1 mg Instruction: 1 x 1 mg tablet Condition: Thursday Dose/Route: 2 mg Instruction: 2 x 1 mg tablets Condition: Thursday Dose/Route: 1 mg Instruction: 1 x 1 mg tablet Condition: Thursday Dose/Route: 2 mg Instruction: 2 x 1 mg tablets Condition: Dose/Route: 1 mg Instruction: 1 x 1 mg tablet Condition: Thursday Dose/Route: 2 mg Instruction: 2 x 1 mg tablets Condition: Thursday Dose/Route: 1 mg Instruction: 1 x 1 mg tablet Protocol Text: Adjustment Start Date: Thursday05/01/25 INR Value: 2.1 INR Date: 05/01/25 Recheck Date: 05/08/25 Rx Instructions: 2 mg TABS ORALLY 2MG MWF/ 1MG X 4 DAYS; OR TAKE 1-2 TABS PER INR PER ANTICOAG Jardiance 10 mg Tablet 10 mg PO DAILY Qty: 30 0RF levothyroxine 25 mcg tablet 25 mcg PO DAILY@0600 (DME) pen needle, diabetic [BD Cathy 2nd Gen Pen Needle] 32 gauge x 5/32 needle See Rx Instructions subcut DAILY Qty: 50 Rx Instructions: As directed (DME) lancets [FreeStyle Lancets] 28 gauge misc See Rx Instructions .ROUTE BID Qty: 100 Rx Instructions: As directed multivitamin [One Daily Multivitamin] Tablet 1 tab PO DAILY amlodipine 5 mg tablet 5 mg PO DAILY ascorbic acid (vitamin C) 1,000 mg tablet 1 g PO DAILY Qty: 90 1RF (DME) interdry See Rx Instructions .Route .MEDSUPPLY Qty: 1 12RF Rx Instructions: As directed. Apply interdry to abdominal and inguinal folds. clopidogrel 75 mg tablet 75 mg PO DAILY latanoprost 0.005 % drops 1 drp ophthalmic (eye) BEDTIME insulin lispro [Humalog KwikPen Insulin] 100 unit/mL insulin pen See Protocol subcut BID Protocol: Insulin Correction Scale Less than or equal to 110 ---- Give (units): 0 111 to 150 Give (units): 0 151 to 200 Give (units): 2 201 to 250 Give (units): 4 251 to 300 Give (units): 6 301 to 350 Give (units): 8 Greater than 350 Give (units): 10 Call MD if Blood Glucose > : 350 Referrals: Nano Delaney MD [Primary Care Provider, Internal Medicine] Clinical Impression: Acute UTI (urinary tract infection); Complication, blocked suprapubic catheter Keith Sharma MD [Physician, Urology] Clinical Impression: Acute UTI (urinary tract infection); Complication, blocked suprapubic catheter Print Language: Romansh
[2025-05-04 19:28] VITALS: BP 127/55; PULSE 89; TEMP 36.6; O2SAT 97
[2025-05-04 20:26] LABS: Appearance Urine Turbid; Glucose Urine UA 500 mg/dL (Negative); PH 6.5 (5.0-9.0); Specific Gravity - Urine 1.010 (1.005-1.025); UMIC TRIGGER UACC YES
[2025-05-04 20:34] LABS: Hematocrit 40.2 % (37.0-47.0); Hemoglobin 13.0 g/dl (12.0-16.0); Imm Gran Abs Auto 0.04 X10*3/uL (0.00-0.03); Imm Gran Pct Auto 0.7 % (0.0-0.4); Lymphocytes Absolute Auto 1.5 X10*3/uL (1.2-4.9); MANUAL DIFF FLAG SCAN; Mean Corpuscular HGB Conc 32.3 g/dl (31.0-35.0); Mean Corpuscular Hemoglobin 28.9 pg (27.0-33.0); Mean Corpuscular Volume 89.3 fL (80.0-98.0); NRBC Abs Auto 0.000 X10*3/uL (0.0-0.012); NRBC Pct Auto 0.0 /100WBC (0.0-0.2); Platelet Count 265 X10*3/uL (160-400); Red Blood Count 4.50 X10*6/uL (4.20-5.50); SCAN SMEAR FLAG 1; White Blood Count 6.1 X10*3/uL (4.8-10.8)
[2025-05-04 20:36] LABS: Glucose, Whole Blood 130 mg/dL (60-115)
[2025-05-04 20:42] LABS: UACC Culture Trigger YES
[2025-05-04 20:47] LABS: Alanine Aminotransferase 13 U/L (0-31); Albumin Level 3.7 g/dL (3.5-5.0); Alkaline Phosphatase 132 U/L (39-117); Anion Gap 14 (12-20); Aspartate Amino Transferase 30 U/L (5-31); Blood Urea Nitrogen 48 mg/dL (9-16); Calcium 9.1 mg/dL (8.4-10.2); Carbon Dioxide 23 mmol/L (22-29); Chloride 102 mmol/L (96-108); Creatinine Clr Calc Pharmacy 20.1; Estimated Glomerular Filt Rate 21; Potassium 4.7 mmol/L (3.3-5.1); Sodium 134 mmol/L (135-145); Total Protein 8.3 g/dL (6.5-8.0)
[2025-05-04 23:07] VITALS: BP 125/59; PULSE 106; RESP 18; TEMP 36.6; O2SAT 99
[2025-05-04 23:18] VITALS: BP 125/59; PULSE 106; RESP 18; TEMP 36.6; O2SAT 99
== END 2025-05-04 23:19 | disposition home or self-care (01) ==
PROVIDERS: Physician Assistant; Emergency Provider Emergency Medicine; PCP Internal Medicine
DX: N39.0 Urinary tract infection, site not specified (principal); I25.10 Atherosclerotic heart disease of native coronary artery without angina pectoris; N32.89 Other specified disorders of bladder; E11.9 Type 2 diabetes mellitus without complications; Z79.899 Other long term (current) drug therapy; Z79.4 Long term (current) use of insulin
CPT/HCPCS: 36415; 51701; 80053; 81001; 82947; 85025; 87086; 87088; 87186; 99283; 99284

== ENCOUNTER 2025-05-15 15:34 | Emergency (ER) | payer MEDICARE, SELFPAY ==
[2025-05-15 15:43] VITALS: BP 108/54; BP 108/70; PULSE 80; RESP 16; TEMP 37.9; O2SAT 96; BMI 29.0
[2025-05-15 16:00] VITALS: BP 108/54; PULSE 80; RESP 16; TEMP 37.9; O2SAT 96
--- NOTE | 2025-05-15 16:02 | MHC.EDTECH ---
Bed sores to sacrum visualized. sacrum and b/l butt cheeks show redness, nonopen sores, allevyn pad placed, pillow behind pt placed. RN made aware
--- NOTE | 2025-05-15 16:30 | ED.WEAKNESS ---
HPI - Weakness General Chief complaint: Weakness Stated complaint: on abx for uti, weakness, lethargy,dizzy Time Seen by Provider: 05/15/25 15:47 Related Data Home Medications ?Medication ?Instructions ?Recorded ?Confirmed levothyroxine 25 mcg tablet 25 mcg PO DAILY@0600 09/05/20 05/15/25 pen needle, diabetic 32 gauge x #50 ea 12/31/21 05/15/2532 (BD Cathy 2nd Gen Pen Needle) multivitamin (One Daily 1 tab PO DAILY 09/15/22 05/15/25 Multivitamin tablet) lancets 28 gauge (FreeStyle #100 ea 09/29/22 05/15/25 Lancets) vitamins A,C,S-fodl-xenzig 2,148 1 tab PO BIDWM 05/09/23 05/15/25 mcg-113 mg-45 mg-17.4 mg tablet (PreserVision AREDS) amlodipine 5 mg tablet 5 mg PO DAILY 11/13/23 05/15/25 furosemide 20 mg tablet 10 mg PO BID 06/17/24 05/15/25 clopidogrel 75 mg tablet 75 mg PO DAILY 08/01/24 05/15/25 latanoprost 0.005 % eye drops 1 drp ophthalmic (eye) BEDTIME 09/19/24 05/15/25 insulin lispro 100 unit/mL See Protocol subcut BID 02/09/25 05/15/25 subcutaneous pen (Humalog KwikPen (U-100) Insulin) melatonin 10 mg tablet 10 mg PO BEDTIME 04/09/25 05/15/25 warfarin 1 mg tablet 2 mg PO .COMPLEX 04/27/25 05/15/25 Previous Rx's ?Medication ?Instructions ?Recorded atorvastatin 10 mg tablet 10 mg PO BEDTIME #90 tabs 09/22/22 empagliflozin 10 mg tablet 10 mg PO DAILY #30 tabs 09/02/23 (Jardiance) metoprolol succinate 200 mg 200 mg PO DAILY #90 tabs 06/09/24 tablet,extended release 24 hr ascorbic acid (vitamin C) 1,000 mg 1 g PO DAILY #90 tabs 08/23/24 tablet interdry #1 ea 08/23/24 insulin glargine 100 unit/mL 15 unit (0.15 mL) subcut BEDTIME 04/13/25 subcutaneous solution (Lantus #10 mL U-100 Insulin) levofloxacin 250 mg tablet 250 mg PO Q24H #3 tabs 04/13/25 mirabegron 50 mg tablet,extended 50 mg PO DAILY #30 tabs 04/13/25 release 24 hr (Myrbetriq) levofloxacin 750 mg tablet 750 mg PO .COMPLEX 5 days #5 tabs 05/09/25 valsartan 40 mg tablet 20 mg (1/2 x 40 mg) PO BID #180 05/09/25 tabs cefpodoxime 200 mg tablet 200 mg PO BID 10 days #20 tabs 05/15/25 Allergies Allergy/AdvReac Type Severity Reaction Status Date / Time No Known Allergies Allergy Verified 05/15/25 15:52 [facility] Past Medical History Medical History (Updated 05/16/25 @ 00:03 by Background Daemon) Suprapubic catheter Atrial fibrillation Hydronephrosis determined by ultrasound Permanent atrial fibrillation DOROTHY (acute kidney injury) Atrial fibrillation Neuropathy Neurogenic bladder CVA (cerebral vascular accident) Shingles Elevated cholesterol Myocardial infarction MRSA infection Hip pain Leg wound, left Varicose vein of leg Osteoarthritis of right hip Current use of anticoagulant therapy Recurrent UTI PAF (paroxysmal atrial fibrillation) Congestive heart failure Urinary incontinence Hypothyroidism Diabetes Hypertension CKD (chronic kidney disease) CAD (coronary artery disease) Hypotonic neurogenic bladder Surgical History (Updated 04/21/25 @ 00:02 by Background Daemon) History of left knee replacement History of right knee joint replacement H/O heart artery stent H/O nasal polypectomy History of tubal ligation History of tonsillectomy and adenoidectomy Hx of cholecystectomy Family History Family History Father Hx of angina pectoris Myocardial infarction Mother Ovarian cancer Stomach cancer Maternal Grandfather Hardening of the arteries of the heart Other Neurogenic bladder Social History Social History Household Members: Family Household Members Other:: daughter Housing: House Are you a primary skin care therapist to a significant other at home: No Do you presently have visiting nurse or other home services: Yes (meals on wheels 5 days) Alcohol intake: never Comment: [facility] [place] Patient Tobacco Use Status: Never used Tobacco Smoked in Last 30 Days: No Second Hand Smoke Exposure: No Use of substances other than those prescribed or required for medical reasons: No Advance Directives: Yes Advance Directives on File: Yes Advance Directives Date on File: 08/27/22 Do you have a plan to hurt others: No Plan service: No Current occupational status: retired Physical Exam Vital Signs: Vital Signs: Last Vital Signs Temp 98.7 F 05/15/25 18:17 Pulse 96 05/15/25 18:17 Resp 19 05/15/25 18:17 BP 107/75 05/15/25 18:17 Pulse Ox 99 05/15/25 18:17 O2 Del Method Room Air 05/15/25 18:17 BMI result Body Mass Index 29.0 Medications Administered Discontinued Medications Generic Name Dose Route Start Last Admin Trade Name Freq PRN Reason Stop Dose Admin Ceftriaxone Sodium 2 gm 05/15/25 16:30 05/15/25 17:19 Ceftriaxone Sodium 2 Gm Vial IVPUSH 05/15/25 16:31 2 gm ONCE ONE Administration Sodium Chloride 1,000 mls @ 999 mls/hr 05/15/25 16:30 05/15/25 18:18 Ns IV 05/15/25 17:30 Infused .Q1H1M SUN Infusion Medical Decision Making Medical Decision Making MDM Narrative: Medical Decision Makin-year-old female with chronic recurrent UTI in the setting of chronic suprapubic catheter. Comes from home. Purportedly in office or with visiting nurse prior to arrival tachycardic and hypotensive however on arrival here without treatment was not tachycardic or hypotensive. Awake alert oriented looks well. Low-grade fever 100.3 she has been taking levofloxacin since recent diagnosis of UTI growth shows Serratia m. Looks martinez sensitive even to levofloxacin which he has been on. She is not ill or toxic has no abdominal or flank pain. Cloudy urine is draining briskly from the bladder. Suprapubic cath site without drainage or erythema. No actionable lab work otherwise. IV antibiotics dosed in the emergency department changing the antibiotic regimen to 3rd generation cephalosporin oral at home. Patient amenable to this she remained hemodynamically stable with no hypotension or significant or persistent tachycardia. Lactate not elevated not meeting any se Preliminary Favored Differential Diagnosis: UTI, urologic obstruction, sepsis, bladder/urine colonization, atrial fibrillation possibly transient RVR or electrolyte derangement among additional considered etiologies Testing Interpreted Independently: Point of care ultrasound of the kidneys without obstructive uropathy noted. Suddenly increased creatinine 2.59 from 2.24 however she fluctuates and has been higher in the past most recently April 09. In the setting of chronic kidney disease and without clinical signs of obstruction this is unlikely acute obstructive DOROTHY. CRP minimally elevated 1.35. psis criteria Blood work from today reveals no leukocytosis, Radiology or Lab testing Results Reviewed: Previous microbiology reviewed. Consults: Not Applicable Independent Historians/External Chart Reviews: Not Applicable Social Determinants of Health Impacting MDM/Planning: Not Applicable Lab Data 05/15/25 16:56 05/15/25 16:56 Labs: Lab Results 05/15/25 Range/Units 16:56 WBC 10.8 (4.8-10.8) X10*3/uL RBC 4.37 (4.20-5.50) X10*6/uL Hgb 12.8 (12.0-16.0) g/dl Hct 38.9 (37.0-47.0) % MCV 89.0 (80.0-98.0) fL MCH 29.3 (27.0-33.0) pg MCHC 32.9 (31.0-35.0) g/dl RDW 16.9 H (11.0-16.0) % Plt Count 233 (160-400) X10*3/uL MPV 8.5 L (9.4-12.3) fL Immature Gran % (Auto) 0.6 H (0.0-0.4) % Neut % (Auto) 68.9 (45-73) % Lymph % (Auto) 16.8 L (20-40) % [place] % (Auto) 11.8 H (2-11) % Eos % (Auto) 1.3 (0-4) % Baso % (Auto) 0.6 (0-2) % Lymph # (Auto) 1.8 (1.2-4.9) X10*3/uL [place] # (Auto) 1.3 H (0.1-1.2) X10*3/uL Eos # (Auto) 0.1 (0.0-0.4) X10*3/uL Baso # (Auto) 0.1 (0.0-0.2) X10*3/uL Abs Immat Gran (auto) 0.06 H (0.00-0.03) X10*3/uL Absolute Neuts (auto) 7.4 (2.0-8.3) x10*3/uL Absolute Nucleated RBC 0.000 (0.0-0.012) X10*3/uL Nucleated RBC % (auto) 0.0 (0.0-0.2) /100WBC Sodium 140 (135-145) mmol/L Potassium 4.8 (3.3-5.1) mmol/L Chloride 108 (96-108) mmol/L Carbon Dioxide 24 (22-29) mmol/L Anion Gap 13 (12-20) BUN 54 H (9-16) mg/dL Creatinine 2.59 H (0.5-1.4) mg/dL Estim Creat Clear Calc 16.7 Estimated GFR 18 Random Glucose 67 (60-115) mg/dL Lactic Acid 0.9 (0.5-2.0) mmol/L Calcium 8.7 (8.4-10.2) mg/dL Total Bilirubin 0.5 (0.0-1.0) mg/dL AST 42 H (5-31) U/L ALT 16 (0-31) U/L Alkaline Phosphatase 115 (39-117) U/L C-Reactive Protein 1.35 H (< or = 0.50) mg/dL Total Protein 8.1 H (6.5-8.0) g/dL Albumin 3.6 (3.5-5.0) g/dL Procedures Procedure Narrative Procedure Narrative: EMERGENCY ULTRASOUND INTERPRETATION-LIMITED RETROPERITONEAL (RENAL) [THIS STUDY WAS ORDERED, PERFORMED, AND INTERPRETED BY MYSELF. THE STUDY REVEALS: IMPRESSION: NO EVIDENCE OF UROLOGIC OBSTRUCTION] [INDICATION: FLANK PAIN BLADDER: SUPRAPUBIC CATHETER BALLOON PRESENT WITH COMPRESSED BLADDER RIGHT KIDNEY: NO HYDRONEPHROSIS LEFT KIDNEY: NO HYDRONEPHROSIS PERFORMED BY: RAJESH LÓPEZ MD IMAGES WERE STORED CPT: 82099] Discharge Plan Discharge Clinical Impression: Urinary tract infection Patient Disposition: Home, Self-Care Instructions: Urinary Tract Infection in Older Adults (ED) Additional Instructions: DISCHARGE DIAGNOSES: PERSISTENT URINARY TRACT INFECTION HISTORY OF PRESENTATION: ?CLOUDY URINE, LOW-GRADE FEVER, REPORTEDLY HIGH HEART RATE AND LOW BLOOD PRESSURE PRIOR TO ARRIVAL AT THE ER. IN THE EMERGENCY DEPARTMENT YOU DID NOT HAVE HIGH HEART RATE OR LOW BLOOD PRESSURE EMERGENCY DEPARTMENT COURSE,TESTS, TREATMENTS: While in the ED today IN THE EMERGENCY DEPARTMENT YOU HAD REASSURING LAB WORK THAT DID NOT SUGGEST ACUTE SEPSIS OR SEVERE INFECTION. WE REVIEWED YOUR URINE CULTURES FROM YOUR PREVIOUS URINE TEST THEY SHOWED TO BE SUSCEPTIBLE TO THERE IS ANTIBIOTICS BUT WE WILL TRY A DIFFERENT 1 GOING FORWARD. DISCHARGE MEDICATIONS: ?CONTINUE WITH YOUR REGULAR SCHEDULED HOME PRESCRIBED MEDICATIONS BUT WE ARE CHANGING HER ANTIBIOTICS THEREFORE STOP LEVOFLOXACIN AND START TAKING CEFPODOXIME TOMORROW MORNING FOLLOW-UP: ?Call your primary or general physician soon as possible to discuss your symptoms, your ED visit and to discuss follow up plans CALL YOUR PRIMARY DOCTOR TOMORROW MORNING INSTRUCTIONS ?& RETURN PRECAUTIONS: If any symptoms change first call your primary physician, if it is after-hours your primary doctors office should have a provider nutritional services cook you can speak with. If the symptoms are severe or very concerning to you then call 911 or return to the ED. RETURN FOR HIGH FEVERS SEVERE ABDOMINAL PAIN INABILITY TO VOID URINE OR A SIGNIFICANT DECREASE IN YOUR URINE PRODUCTION LESS THAN 500 CC IN 24 HOURS. DRINK PLENTY OF FLUIDS WE RECOMMEND TAKING PROBIOTICS BY MOUTH [id number] OR 2 YOGURT PER DAY WHILE ON THE MEDICATIONS Rajesh López MD Emergency Physician [facility] Prescriptions: New cefpodoxime 200 mg tablet 200 mg PO BID 10 Days Qty: 20 0RF Rx Instructions: must administer with a meal/food No Action atorvastatin 10 mg tablet 10 mg PO BEDTIME Qty: 90 3RF metoprolol succinate 200 mg tablet extended release 24 hr 200 mg PO DAILY Qty: 90 3RF levofloxacin 750 mg tablet 750 mg PO .COMPLEX 5 Days Qty: 5 0RF Rx Instructions: 750 mg orally; take in addition to prior 5 days sent for total of 10 days valsartan 40 mg tablet 20 mg PO BID Qty: 180 3RF PreserVision AREDS 2,148 mcg-113 mg-45 mg-17.4mg Tablet 1 tab PO BIDWM Rx Instructions: administer with AM and PM meals furosemide 20 mg tablet 10 mg PO BID melatonin 10 mg Tablet 10 mg PO BEDTIME insulin glargine [Lantus U-100 Insulin] 100 unit/mL Solution 15 unit subcut BEDTIME Qty: 10 0RF levofloxacin 250 mg Tablet 250 mg PO Q24H Qty: 3 0RF mirabegron [Myrbetriq] 50 mg Tablet Extended Release 24 Hr 50 mg PO DAILY Qty: 30 0RF warfarin 1 mg tablet 2 mg PO .COMPLEX Protocol: Dose Management Condition: Thursday (Week One) Dose/Route: 1 mg Instruction: 1 x 1 mg tablet Condition: Thursday Dose/Route: 2 mg Instruction: 2 x 1 mg tablets Condition: Thursday Dose/Route: 1 mg Instruction: 1 x 1 mg tablet Condition: Thursday Dose/Route: 2 mg Instruction: 2 x 1 mg tablets Condition: Dose/Route: 1 mg Instruction: 1 x 1 mg tablet Condition: Thursday Dose/Route: 2 mg Instruction: 2 x 1 mg tablets Condition: Thursday Dose/Route: 1 mg Instruction: 1 x 1 mg tablet Condition: Thursday (Week Two) Dose/Route: 1 mg Instruction: 1 x 1 mg tablet Condition: Thursday Dose/Route: 2 mg Instruction: 2 x 1 mg tablets Condition: Thursday Dose/Route: 1 mg Instruction: 1 x 1 mg tablet Condition: Thursday Dose/Route: 2 mg Instruction: 2 x 1 mg tablets Condition: Dose/Route: 1 mg Instruction: 1 x 1 mg tablet Condition: Thursday Dose/Route: 2 mg Instruction: 2 x 1 mg tablets Condition: Thursday Dose/Route: 1 mg Instruction: 1 x 1 mg tablet Protocol Text: Adjustment Start Date: Thursday05/15/25 INR Value: 2.1 INR Date: 05/15/25 Recheck Date: 05/22/25 Rx Instructions: 2 mg TABS ORALLY 2MG MWF/ 1MG X 4 DAYS; OR TAKE 1-2 TABS PER INR PER ANTICOAG Jardiance 10 mg Tablet 10 mg PO DAILY Qty: 30 0RF levothyroxine 25 mcg tablet 25 mcg PO DAILY@0600 (DME) pen needle, diabetic [BD Cathy 2nd Gen Pen Needle] 32 gauge x 5/32 needle See Rx Instructions subcut DAILY Qty: 50 Rx Instructions: As directed (DME) lancets [FreeStyle Lancets] 28 gauge misc See Rx Instructions .ROUTE BID Qty: 100 Rx Instructions: As directed multivitamin [One Daily Multivitamin] Tablet 1 tab PO DAILY amlodipine 5 mg tablet 5 mg PO DAILY ascorbic acid (vitamin C) 1,000 mg tablet 1 g PO DAILY Qty: 90 1RF (DME) interdry See Rx Instructions .Route .MEDSUPPLY Qty: 1 12RF Rx Instructions: As directed. Apply interdry to abdominal and inguinal folds. clopidogrel 75 mg tablet 75 mg PO DAILY latanoprost 0.005 % drops 1 drp ophthalmic (eye) BEDTIME insulin lispro [Humalog KwikPen Insulin] 100 unit/mL insulin pen See Protocol subcut BID Protocol: Insulin Correction Scale Less than or equal to 110 ---- Give (units): 0 111 to 150 Give (units): 0 151 to 200 Give (units): 2 201 to 250 Give (units): 4 251 to 300 Give (units): 6 301 to 350 Give (units): 8 Greater than 350 Give (units): 10 Call MD if Blood Glucose > : 350 Interventions: ED Discharge Assessment Last Done: 05/15/25 18:17 Discharge Date/Time: 05/15/25 18:27 Print Language: Turkish
[2025-05-15 17:01] LABS: MANUAL DIFF FLAG NO
[2025-05-15 17:04] LABS: Hematocrit 38.9 % (37.0-47.0); Hemoglobin 12.8 g/dl (12.0-16.0); Imm Gran Abs Auto 0.06 X10*3/uL (0.00-0.03); Imm Gran Pct Auto 0.6 % (0.0-0.4); Lymphocytes Absolute Auto 1.8 X10*3/uL (1.2-4.9); Mean Corpuscular HGB Conc 32.9 g/dl (31.0-35.0); Mean Corpuscular Hemoglobin 29.3 pg (27.0-33.0); Mean Corpuscular Volume 89.0 fL (80.0-98.0); NRBC Abs Auto 0.000 X10*3/uL (0.0-0.012); NRBC Pct Auto 0.0 /100WBC (0.0-0.2); Platelet Count 233 X10*3/uL (160-400); Red Blood Count 4.37 X10*6/uL (4.20-5.50); White Blood Count 10.8 X10*3/uL (4.8-10.8)
[2025-05-15 17:28] LABS: Alanine Aminotransferase 16 U/L (0-31); Albumin Level 3.6 g/dL (3.5-5.0); Alkaline Phosphatase 115 U/L (39-117); Anion Gap 13 (12-20); Aspartate Amino Transferase 42 U/L (5-31); Blood Urea Nitrogen 54 mg/dL (9-16); Calcium 8.7 mg/dL (8.4-10.2); Carbon Dioxide 24 mmol/L (22-29); Chloride 108 mmol/L (96-108); Creatinine Clr Calc Pharmacy 16.7; Estimated Glomerular Filt Rate 18; Potassium 4.8 mmol/L (3.3-5.1); Sodium 140 mmol/L (135-145); Total Protein 8.1 g/dL (6.5-8.0)
[2025-05-15 17:55] VITALS: BP 107/75; PULSE 96; RESP 19; TEMP 37.1; O2SAT 99
--- NOTE | 2025-05-15 17:59 | PC.NURSE ---
Contacted Patients daughter Sandra to update her with plan of discharge. Daughter is in agreement and [place] [facility] [place].
[2025-05-15 18:15] VITALS: BP 107/75; PULSE 96; RESP 19; TEMP 37.1; O2SAT 99
[2025-05-15 18:17] VITALS: BP 107/75; PULSE 96; RESP 19; TEMP 37.1; O2SAT 99
== END 2025-05-15 18:27 | disposition home or self-care (01) ==
LOC: HO.ED 17:52
PROVIDERS: Emergency Provider Emergency Medicine
DX: N39.0 Urinary tract infection, site not specified (principal); R53.1 Weakness; R42 Dizziness and giddiness; I25.10 Atherosclerotic heart disease of native coronary artery without angina pectoris; I95.9 Hypotension, unspecified; R50.9 Fever, unspecified; R00.0 Tachycardia, unspecified; E11.9 Type 2 diabetes mellitus without complications; Z79.899 Other long term (current) drug therapy; Z79.4 Long term (current) use of insulin
CPT/HCPCS: 36415; 76775; 80053; 83605; 85025; 86140; 87040; 96361; 96374; 99284; J0696

== ENCOUNTER → 2025-05-29 11:35 | Outpatient (BNVA) | payer MEDICARE, SELFPAY | PROVIDERS: PCP Internal Medicine; Visit Provider Urology | DX: N31.9 Neuromuscular dysfunction of bladder, unspecified (principal) | CPT/HCPCS: 51705 ==

== ENCOUNTER 2025-06-08 14:20 | Outpatient (AMB) | payer MEDICARE, SELFPAY ==
--- OUTSIDE RECORDS SUMMARY | 2025-06-08 14:22 | XMS_ITS | Clinical Summary ---
Author Organization [facility] Address [address] [place] [address] Care Team Providers Care Senior Software Tester Name Role Phone Unavailable Primary Care Provider [...] season) 2024 Influenza (#1) 2025 HPV Vaccine (No Doses Required) Completed Hep A Aged Out No longer eligi [...]
--- OUTSIDE RECORDS SUMMARY | 2025-06-08 14:22 | XMS_ITS | Encounter Summary ---
Author Organization [facility] Address [address] [place] [address] Care Team Providers Care Synchronous Motor Assembler Name Role Phone Vinnie Shay MD Primary Care Provider [phone] Encounter Details Date Type Department Care Team (Latest Contact Info) Description 04/15/2025 Lab Requisition [facility] [address] [place] [address] Vinnie Shay MD [address] [place] [address] Other mechanical complication of other urinary catheter, subsequent encounter; intermediate (current) use of 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 Social History Tobacco [...] complication of other urinary catheter, subsequent encounter intermediate (current) use of 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 COMPLETE BLOOD COUNT Routine 04/15/2025 8:01 AM EDT Other mechanical complication of other urinary catheter, 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 COMPREHENSIVE METABOLIC PANEL Routine 04/15/2025 8:01 AM EDT Other mechanical complication of other urinary catheter, 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 documented in this encounter Results * (ABNORMAL) Comprehensive metabolic panel (04/15/2025 8:01 AM EDT) Sodium 138 133 - 145 mmol/L LAB CHEMISTRY METHOD 04/15/2025 1:03 PM [facility] Potassium 4.1 3.5 - 5.5 mmol/L LAB CHEMISTRY METHOD 04/15/2025 1:03 PM [facility] Chloride 107 96 - 110 mmol/L LAB CHEMISTRY METHOD 04/15/2025 1:03 PM [facility] CO2 23 21 - 32 mmol/L LAB CHEMISTRY METHOD 04/15/2025 1:03 PM [facility] Anion Gap 8 3 - 11 LAB CHEMISTRY METHOD 04/15/2025 1:03 PM [facility] Glucose 117(H) 70 - 100 mg/dL LAB CHEMISTRY METHOD 04/15/2025 1:03 PM [facility] BUN 31(H) 5 - 25 mg/dL LAB CHEMISTRY METHOD 04/15/2025 1:03 PM [facility] Creatinine 1.83(H) 0.50 - 1.10 mg/dL LAB CHEMISTRY METHOD 04/15/2025 1:03 PM [facility] eGFR 27(L) >=60 mL/min/1. 73m2 LAB CHEMISTRY METHOD 04/15/2025 1:03 PM [facility] Comment:Calculation based on the Chronic Kidney Disease Epidemiology Collaboration (CKD-EPI) equation refit without adjustment for race. BUN/Creatinine Ratio 16.9 LAB CHEMISTRY METHOD 04/15/2025 1:03 PM [facility] Calcium 8.8 8.5 - 10.5 mg/dL LAB CHEMISTRY METHOD 04/15/2025 1:03 PM [facility] AST (SGOT) 22 10 - 42 unit/L LAB CHEMISTRY METHOD 04/15/2025 1:03 PM [facility] ALT (SGPT) 21 10 - 60 unit/L LAB CHEMISTRY METHOD 04/15/2025 1:03 PM EDT [facility] Alkaline Phosphatase 156(H) 42 - 121 unit/L LAB CHEMISTRY METHOD 04/15/2025 1:03 PM EDT [facility] Total Protein 8.2(H) 6.0 - 8.0 g/dL LAB CHEMISTRY METHOD 04/15/2025 1:03 PM EDT [facility] Albumin 3.1(L) 3.2 - 5.0 g/dL LAB CHEMISTRY METHOD 04/15/2025 1:03 PM EDT [facility] Total Bilirubin 0.5 0.0 - 1.4 mg/dL LAB CHEMISTRY METHOD 04/15/2025 1:03 PM EDT [facility] Blood Venous blood specimen / Unknown Venipuncture / Unknown 04/15/2025 8:01 AM EDT 04/15/2025 12:13 PM EDT us Vinnie Shay MD LAB BLOOD ORDERABLES Final Resu lt [facility] [address] [place] [address], [place] [phone] * (ABNORMAL) Prothrombin time with INR (04/15/2025 8:01 AM EDT) Protime 21.0(H) 10.6 - 13.9 sec LAB COAGULATION METHOD 04/15/2025 12:48 PM EDT [facility] INR 1.7 LAB COAGULATION METHOD 04/15/2025 12:48 PM EDT [facility] Blood Venous blood specimen / Unknown Venipuncture / Unknown 04/15/2025 8:01 AM EDT 04/15/2025 12:13 PM EDT us Vinnie Shay MD LAB BLOOD ORDERABLES Final Resu lt [facility] [address] [place] [address], * (ABNORMAL) Complete blood count (04/15/2025 8:01 AM EDT) [facility] WBC 9.3 4.8 - 10.8 K/mcL LAB HEMETOLOGY METHOD 04/15/2025 12:34 PM [facility] RBC 4.60 3.80 - 4.80 M/mcL LAB HEMETOLOGY METHOD 04/15/2025 12:34 PM [facility] Hemoglobin 12.7 11.5 - 16.0 g/dL LAB HEMETOLOGY METHOD 04/15/2025 12:34 PM [facility] Hematocrit 42.4 35.0 - 47.0 % LAB HEMETOLOGY METHOD 04/15/2025 12:34 PM [facility] MCV 92.6 79.0 - 98.0 FL LAB HEMETOLOGY METHOD 04/15/2025 12:34 PM [facility] MCH 27.7 27.0 - 32.0 pcg LAB HEMETOLOGY METHOD 04/15/2025 12:34 PM [facility] MCHC 30.0(L) 32.0 - 37.0 g/dL LAB HEMETOLOGY METHOD 04/15/2025 12:34 PM [facility] RDW 18.0(H) 11.0 - 15.0 % LAB HEMETOLOGY METHOD 04/15/2025 12:34 PM [facility] Platelets 343 130 - 400 K/mcL LAB HEMETOLOGY METHOD 04/15/2025 12:34 PM [facility] MPV 8.9 7.0 - 11.0 FL LAB HEMETOLOGY METHOD 04/15/2025 12:34 PM [facility] NRBC 0.0 <1.0 % LAB HEMETOLOGY METHOD 04/15/2025 12:34 PM EDT [facility] NRBC Absolute 0.00 <0.10 K/mcL LAB HEMETOLOGY METHOD 04/15/2025 12:34 PM EDT [facility] Blood Venous blood specimen / Unknown Venipuncture / Unknown 04/15/2025 8:01 AM EDT 04/15/2025 12:13 PM EDT Vinnie Shay MD LAB BLOOD ORDERABLES Final Resu lt [facility] [address] [place] [address], documented in this encounter Visit Diagnoses Diagnosis Other mechanical complication of other urinary catheter, 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
--- OUTSIDE RECORDS SUMMARY | 2025-06-08 14:22 | XMS_ITS | Clinical Summary ---
Author Organization [facility] Address [address] [place] [address] Phone Care Team Providers Care Bolt Sawyer Name Role Phone Nano Delaney MD Primary [...] Visual Foot Exam 12/03/2020 Influenza Vaccine (#1) 2025 Hepatitis B Vaccine Aged Out No longe r eligible based on patient's age to complete this topic Insurance [facility] Medicare [facility] Medicare Care Teams Bolt Sawyer Relationship Specialty Start Date End Date Nano Delaney MD [address] [place] [address] PCP - General 11/12/20
--- NOTE | 2025-06-08 14:31 | MHC.OFFVISCO ---
Intake Intake Visit Reasons: Anticoagulation Allergies No Known Allergies Allergy (Verified 06/08/25 14:20) Medication List - Last Reconciled 06/08/25 by Zoraida Schultz RN amlodipine 5 mg PO DAILY ascorbic acid (vitamin C) 1 g PO DAILY atorvastatin 10 mg PO BEDTIME clopidogrel 75 mg PO DAILY empagliflozin (Jardiance) 10 mg PO DAILY furosemide 10 mg PO BID insulin glargine (Lantus U-100 Insulin) 15 units (0.15 mL) subcut BEDTIME insulin lispro (Humalog KwikPen (U-100) Insulin) See Protocol sliding scale doses subcut BID [interdry As directed. Apply interdry to abdominal and inguinal folds. ] lancets (FreeStyle Lancets) As directed latanoprost 0.005% 1 drp ophthalmic (eye) BEDTIME levothyroxine 25 mcg PO DAILY@0600 melatonin 10 mg PO BEDTIME metoprolol succinate ER 200 mg PO DAILY mirabegron ER (Myrbetriq) 50 mg PO DAILY moxifloxacin 0.5% drps ophthalmic (eye) multivitamin (One Daily Multivitamin tablet) 1 tab PO DAILY pen needle, diabetic (BD Cathy 2nd Gen Pen Needle) As directed valsartan 20 mg (1/2 x 40 mg) PO BID vitamins A,C,R-rowe-kntmnx 2,148 mcg-113 mg-45 mg-17.4mg (PreserVision AREDS) 1 tab PO BIDWM warfarin See Protocol 2 mg TABS ORALLY 2MG MWF/ 1MG X 4 DAYS; OR TAKE 1-2 TABS PER INR PER ANTICOAG Nursing Note INR received from [employer] [facility] nurse LUIS A, INR today is 1.7, T/c to nurse states no changes- states she will call pt T/c to patient daughter Sandra with plan of care because she sets up the medications Patient status: states no changes - eating better Denies any signs and symptoms of any unusual bruising, bleeding or clotting Medication or supplements: no changes Diet: eating better- enc to avoid greens x 2 days Activity: as tolerated Dose : increase to 2mg x 5 days/ 1mg x 2 days Dosing and diet instructions given with next retest date of 1 week, Nurse and patient daughter verbalizes understanding of instructions given with accurate read back Anti-Coag Initial Assessment Social Hx Patient Tobacco Use Status: Never used Tobacco alcohol intake: never Alcohol intake frequency: does not drink Coding Level of Care Code Est Patient Level 1 Diagnoses Current use of anticoagulant therapy Z79.01 Results AMB INR Fingerstick AMB INR Fingerstick 1.7 Last Edit by Zoraida Schultz RN on 06/08/25 14:27 [facility] Assessment & Plan Assessment & Plan (1) Current use of anticoagulant therapy: Code(s): Z79.01 - prison (current) use of 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
== END 2025-06-08 14:35 | disposition home or self-care (01) ==
LOC: HO.ACS 14:20
PROVIDERS: PCP Internal Medicine; Visit Provider Internal Medicine Medical Oncology
DX: Z79.01 Long term (current) use of 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 (principal)

== ENCOUNTER → 2025-06-08 14:20 | Outpatient (BNVA) | payer MEDICARE, SELFPAY | PROVIDERS: PCP Internal Medicine; Visit Provider Internal Medicine Medical Oncology | DX: Z79.01 Long term (current) use of 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 (principal) | CPT/HCPCS: 99211 ==

== ENCOUNTER → 2025-06-19 11:00 | Outpatient (BNVA) | payer MEDICARE, SELFPAY | PROVIDERS: PCP Internal Medicine; Visit Provider Internal Medicine Medical Oncology | DX: I48.20 Chronic atrial fibrillation, unspecified (principal); Z79.01 Long term (current) use of 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; Z51.81 Encounter for therapeutic drug level monitoring | CPT/HCPCS: 51705 ==

== ENCOUNTER → 2025-07-10 13:48 | Outpatient (BNVA) | payer MEDICARE, SELFPAY | PROVIDERS: PCP Internal Medicine; Visit Provider Urology | DX: Z46.6 Encounter for fitting and adjustment of urinary device (principal) | CPT/HCPCS: 51705 ==

== ENCOUNTER → 2025-07-31 14:52 | Outpatient (BNVA) | payer MEDICARE, SELFPAY | PROVIDERS: PCP Internal Medicine; Visit Provider Urology | DX: Z93.59 Other cystostomy status (principal) | CPT/HCPCS: 51705 ==

== ENCOUNTER 2025-07-31 19:59 | Observation (INO) | payer MEDICARE, SELFPAY ==
--- NOTE | 2025-07-31 | ECG_ITS ---
Test Reason : CHEST PAIN Blood Pressure : */* mmHG Vent. Rate : 98 BPM Atrial Rate : * BPM P-R Int : * ms QRS Dur : 80 ms QT Int : 374 ms P-R-T Axes : * 73 120 degrees QTcB Int : 477 ms Atrial fibrillation with premature ventricular or aberrantly conducted complexes Septal infarct , age undetermined Abnormal ECG When compared with ECG of 17-Jun-2024 10:53, No significant change was found Referred By: Generic ED Physician Electronically Signed By: SAMM WALKER
--- NOTE | ~2025-07-31 | CT_ITS ---
CLINICAL HISTORY: chest pain CT chest without contrast Comparison: CT/REG/GA/SR - CT CHEST WO IV CON - 01/12/24 02:56 EDT Findings: Heart size at the upper limits. No pericardial effusion. Enlarged pulmonary artery. This can be seen with pulmonary artery hypertension. The visualized thyroid and mediastinum are unremarkable. Small area of left upper lobe scarring is unchanged. Mild dependent atelectasis at the lung bases. No consolidation, effusion, or pneumothorax. The upper abdomen is unremarkable. Osteopenia. No acute fracture. IMPRESSION: 1. Chronic left upper lobe scarring, and mild atelectasis at the lung bases noted. 2. Additional nonacute findings as above. This document has been electronically signed by: Roxana Yancey MD on 08/01/2025 04:38:10
--- NOTE | ~2025-07-31 | XR_ITS ---
CLINICAL HISTORY: CP SOB 2 view chest x-ray Comparison: None provided Findings: The lungs are clear. Heart size is normal. No acute fracture. IMPRESSION: 1. No acute findings. This document has been electronically signed by: Kobe Darby MD on 07/31/2025 21:12:05
[2025-07-31 20:11] VITALS: BP 135/80; BP 144/77; PULSE 101; PULSE 115; RESP 24; TEMP 36.4; O2SAT 97; O2SAT 98
[2025-07-31 20:36] LABS: MANUAL DIFF FLAG NO
--- NOTE | 2025-07-31 20:38 | ED.CHESTPAIN ---
HPI - Chest Pain General Chief Complaint: Chest Pain Stated Complaint: chest pressure x40 mins Time Seen by Provider: 07/31/25 20:34 Source: patient Mode of arrival: ambulatory Limitations: no limitations History of Present Illness ED Provider: Dr. Cervantes HPI narrative: 84-year-old female history of AFib on Coumadin, diabetes, bladder spasm chronic suprapubic catheter, CAD, that better neuropathy presented hospital today for evaluation of chest pain. Chest pain started around 19:00 today. Patient states she was watching TV when it occurred. Described as a pressure-like sensation. She does endorse slight fluttering of her chest. She has been compliant with her Coumadin. She states her daughter take care of her medication. Related Data Home Medications ?Medication ?Instructions ?Recorded ?Confirmed levothyroxine 25 mcg tablet 25 mcg PO DAILY@0600 09/05/20 07/18/25 pen needle, diabetic 32 gauge x #50 ea 12/31/21 07/18/25 (BD Cathy 2nd Gen Pen Needle) multivitamin (One Daily 1 tab PO DAILY 09/15/22 07/18/25 Multivitamin tablet) lancets 28 gauge (FreeStyle #100 ea 09/29/22 07/18/25 Lancets) vitamins A,C,B-hquz-wqtemq 2,148 1 tab PO BIDWM 05/09/23 07/18/25 mcg-113 mg-45 mg-17.4 mg tablet (PreserVision AREDS) amlodipine 5 mg tablet 5 mg PO DAILY 11/13/23 07/18/25 furosemide 20 mg tablet 10 mg PO BID 06/17/24 07/18/25 clopidogrel 75 mg tablet 75 mg PO DAILY 08/01/24 07/18/25 latanoprost 0.005 % eye drops 1 drp ophthalmic (eye) BEDTIME 09/19/24 07/18/25 insulin lispro 100 unit/mL See Protocol subcut BID 02/09/25 07/18/25 subcutaneous pen (Humalog KwikPen (U-100) Insulin) melatonin 10 mg tablet 10 mg PO BEDTIME 04/09/25 07/18/25 warfarin 1 mg tablet 2 mg PO .COMPLEX 04/27/25 07/25/25 moxifloxacin 0.5 % eye drops drp ophthalmic (eye) 06/01/25 07/18/25 Previous Rx's ?Medication ?Instructions ?Recorded atorvastatin 10 mg tablet 10 mg PO BEDTIME #90 tabs 09/22/22 empagliflozin 10 mg tablet 10 mg PO DAILY #30 tabs 09/02/23 (Jardiance) ascorbic acid (vitamin C) 1,000 mg 1 g PO DAILY #90 tabs 08/23/24 tablet interdry #1 ea 08/23/24 insulin glargine 100 unit/mL 15 unit (0.15 mL) subcut BEDTIME 04/13/25 subcutaneous solution (Lantus #10 mL U-100 Insulin) mirabegron 50 mg tablet,extended 50 mg PO DAILY #30 tabs 04/13/25 release 24 hr (Myrbetriq) valsartan 40 mg tablet 20 mg (1/2 x 40 mg) PO BID #180 05/09/25 tabs metoprolol succinate 200 mg 200 mg PO DAILY #90 tabs 05/19/25 tablet,extended release 24 hr sulfamethoxazole 800 1 tab PO ONCE PRN for prevention 07/12/25 mg-trimethoprim 160 mg tablet of UTI with catheter changes 30 (Bactrim DS) days #3 tabs Allergies Allergy/AdvReac Type Severity Reaction Status Date / Time No Known Allergies Allergy Verified 07/31/25 20:15 Review of Systems Review of Systems: Pertinent review of systems as mentioned in HPI. All other system otherwise negative. [facility] Past Medical History [facility] Narrative: Medical history as mentioned in HPI Medical History (Updated 08/01/25 @ 03:38 by Marjorie Cervantes DO) Suprapubic catheter Atrial fibrillation Hydronephrosis determined by ultrasound Permanent atrial fibrillation DOROTHY (acute kidney injury) Atrial fibrillation Neuropathy Neurogenic bladder CVA (cerebral vascular accident) Shingles Elevated cholesterol Myocardial infarction MRSA infection Hip pain Leg wound, left Varicose vein of leg Osteoarthritis of right hip Current use of anticoagulant therapy Recurrent UTI PAF (paroxysmal atrial fibrillation) Congestive heart failure Urinary incontinence Hypothyroidism Diabetes Hypertension CKD (chronic kidney disease) CAD (coronary artery disease) Hypotonic neurogenic bladder Surgical History (Updated 04/21/25 @ 00:02 by Amari Adame) History of left knee replacement History of right knee joint replacement H/O heart artery stent H/O nasal polypectomy History of tubal ligation History of tonsillectomy and adenoidectomy Hx of cholecystectomy Family History Family History Father Hx of angina pectoris Myocardial infarction Mother Ovarian cancer Stomach cancer Maternal Grandfather Hardening of the arteries of the heart Other Neurogenic bladder Social History Social History Household Members: Family Household Members Other:: daughter Housing: House Are you a primary behavioral health care coordinator to a significant other at home: No Do you presently have visiting nurse or other home services: Yes (meals on wheels 5 days) Alcohol intake: never Comment: [facility] [place] Patient Tobacco Use Status: Never used Tobacco Smoked in Last 30 Days: No Second Hand Smoke Exposure: No Use of substances other than those prescribed or required for medical reasons: No Advance Directives: Yes Advance Directives on File: Yes Advance Directives Date on File: 08/27/22 Do you have a plan to hurt others: No Plan service: No Current occupational status: retired Physical Exam Exam: Exam: General: Pleasant, no distress, interacting appropriately Head: Normacephalic, atraumatic ENT: oral mucosa dry, neck supple, no tracheal deviation Cardiovascular: regular rate, irregular rhythm, no murmurs, rubbing, gallops Respiratory: CTAB, bibasilar rales Gastrointestinal: Soft, non distended, non tender, non guarding Extremities: +2 pitting edema bilaterally on exam Neurological: Awake and alert, no facial droop noted Skin: Warm and dry Psychiatric: Appropriate mood and thoughts Vital Signs: Vital Signs: Last Vital Signs Temp 97.6 F 07/31/25 20:11 Pulse 88 08/01/25 01:24 Resp 17 08/01/25 01:24 BP 116/60 08/01/25 01:24 Pulse Ox 94 08/01/25 01:24 O2 Del Method Room Air 08/01/25 01:24 BMI result Body Mass Index 30.0 Medications Administered Discontinued Medications Generic Name Dose Route Start Last Admin Trade Name Freq PRN Reason Stop Dose Admin Al Hydroxide/Mg Hydroxide 30 ml 07/31/25 23:59 08/01/25 00:57 Magnesium Hydrox/Alum Hydrox 30 Ml Oral.Susp PO 08/01/25 00:00 30 ml ONCE ONE Administration Furosemide 40 mg 07/31/25 21:06 07/31/25 21:34 Furosemide 40 Mg/4 Ml Vial IVPUSH 07/31/25 21:07 40 mg ONCE ONE Administration Protocol Lidocaine HCl 15 ml 07/31/25 23:59 08/01/25 00:57 Lidocaine Hcl Viscous 2 % 15 Ml Solution MUCOUS MEM 08/01/25 00:00 15 ml ONCE ONE Administration Medical Decision Making Medical Decision Making [facility] Narrative: 84-year-old female history of AFib on Coumadin, CAD, diabetes, neuropathy presenting to ER today for evaluation of chest pain. Cardiac workup will be obtained the patient including a CBC chemistry troponin. BNP will be assess. We will obtain a chest x-ray as well. Patient is chest pain-free at this time my evaluation. EKG does not show STEMI. The patient does have some ST depression on the lateral leads. Appears to be AFib in nature. That is ST depression were present on previous EKGs. This is likely chronic in nature. We will plan to give patient some IV Lasix for diuresis. I suspect she is likely fluid overloaded. Patient's chest x-ray is unremarkable. Troponin has been negative 3 times here. However she patient stated her chest pain has returned. Described as a pressure-like sensation. She does have history of aortic stenosis. The patient's BNP is elevated and 5000. Given patient's persistent chest pain we will plan to admit the patient hospital for chest pain. I did order a CT chest non con to evaluate for any pulmonic causes of his chest pain. Patient is on Coumadin I have low suspicion for PE she is therapeutic on Coumadin. Differential Diagnosis Differential Diagnoses: The differential diagnosis associated with the presentation includes Chest pain, STEMI, CHF exacerbation, aortic stenosis, pneumonia Admission/Observation Consideration of admission/observation: Escalation of care including admission/observation considered Consult Healthcare Provider Management of the patient was discussed with: Hospitalist Lab Data [facility] Lab Attestation statement: I reviewed the patient's lab results. 07/31/25 20:32 07/31/25 20:32 Labs: Lab Results 07/31/25 07/31/25 07/31/25 Range/Units 20:32 21:31 22:02 WBC 7.5 (4.8-10.8) X10*3/uL RBC 4.49 (4.20-5.50) X10*6/uL Hgb 13.2 (12.0-16.0) g/dl Hct 40.3 (37.0-47.0) % MCV 89.8 (80.0-98.0) fL MCH 29.4 (27.0-33.0) pg MCHC 32.8 (31.0-35.0) g/dl RDW 16.6 H (11.0-16.0) % Plt Count 223 (160-400) X10*3/uL MPV 8.9 L (9.4-12.3) fL Immature Gran % (Auto) 0.7 H (0.0-0.4) % Neut % (Auto) 52.7 (45-73) % Lymph % (Auto) 28.2 (20-40) % [place] % (Auto) 14.4 H (2-11) % Eos % (Auto) 3.5 (0-4) % Baso % (Auto) 0.5 (0-2) % Lymph # (Auto) 2.1 (1.2-4.9) X10*3/uL [place] # (Auto) 1.1 (0.1-1.2) X10*3/uL Eos # (Auto) 0.3 (0.0-0.4) X10*3/uL Baso # (Auto) 0.0 (0.0-0.2) X10*3/uL Abs Immat Gran (auto) 0.05 H (0.00-0.03) X10*3/uL Absolute Neuts (auto) 4.0 (2.0-8.3) x10*3/uL Absolute Nucleated RBC 0.000 (0.0-0.012) X10*3/uL Nucleated RBC % (auto) 0.0 (0.0-0.2) /100WBC PT 23.8 H (10.9-12.4) SEC INR 2.1 H (0.9-1.1) Sodium 141 (135-145) mmol/L Potassium 4.9 (3.3-5.1) mmol/L Chloride 107 (96-108) mmol/L Carbon Dioxide 24 (22-29) mmol/L Anion Gap 15 (12-20) BUN 44 H (9-16) mg/dL Creatinine 2.35 H (0.5-1.4) mg/dL Estim Creat Clear Calc 18.8 Estimated GFR 20 POC Glucose 148 H (60-115) mg/dL Random Glucose 205 H (60-115) mg/dL Calcium 9.0 (8.4-10.2) mg/dL Troponin I High Sens 9.4 10.4 (<3.5-17.0) ng/L NT-Pro-B Natriuret Pep 5288.5 H (<300) pg/mL 07/31/25 Range/Units 22:52 WBC (4.8-10.8) X10*3/uL RBC (4.20-5.50) X10*6/uL Hgb (12.0-16.0) g/dl Hct (37.0-47.0) % MCV (80.0-98.0) fL MCH (27.0-33.0) pg MCHC (31.0-35.0) g/dl RDW (11.0-16.0) % Plt Count (160-400) X10*3/uL MPV (9.4-12.3) fL Immature Gran % (Auto) (0.0-0.4) % Neut % (Auto) (45-73) % Lymph % (Auto) (20-40) % [place] % (Auto) (2-11) % Eos % (Auto) (0-4) % Baso % (Auto) (0-2) % Lymph # (Auto) (1.2-4.9) X10*3/uL [place] # (Auto) (0.1-1.2) X10*3/uL Eos # (Auto) (0.0-0.4) X10*3/uL Baso # (Auto) (0.0-0.2) X10*3/uL Abs Immat Gran (auto) (0.00-0.03) X10*3/uL Absolute Neuts (auto) (2.0-8.3) x10*3/uL Absolute Nucleated RBC (0.0-0.012) X10*3/uL Nucleated RBC % (auto) (0.0-0.2) /100WBC PT (10.9-12.4) SEC INR (0.9-1.1) Sodium (135-145) mmol/L Potassium (3.3-5.1) mmol/L Chloride (96-108) mmol/L Carbon Dioxide (22-29) mmol/L Anion Gap (12-20) BUN (9-16) mg/dL Creatinine (0.5-1.4) mg/dL Estim Creat Clear Calc Estimated GFR POC Glucose (60-115) mg/dL Random Glucose (60-115) mg/dL Calcium (8.4-10.2) mg/dL Troponin I High Sens 10.5 (<3.5-17.0) ng/L NT-Pro-B Natriuret Pep (<300) pg/mL Independent Interpretation I performed an independent interpretation of an: Plain X-Ray Radiology Impression Discussion of test interpretation with radiology: I have reviewed the radiologist's reading. Discharge Plan Discharge Clinical Impression: CHF (congestive heart failure) Qualifiers: Heart failure type: unspecified Heart failure chronicity: acute on chronic Qualified Code(s): I50.9 - Heart failure, unspecified Chest pain Qualifiers: Chest pain type: unspecified Qualified Code(s): R07.9 - Chest pain, unspecified Patient Disposition: Admitted As Inpatient Print Language: Divehi
[2025-07-31 20:49] LABS: Hematocrit 40.3 % (37.0-47.0); Hemoglobin 13.2 g/dl (12.0-16.0); Imm Gran Abs Auto 0.05 X10*3/uL (0.00-0.03); Imm Gran Pct Auto 0.7 % (0.0-0.4); Lymphocytes Absolute Auto 2.1 X10*3/uL (1.2-4.9); Mean Corpuscular HGB Conc 32.8 g/dl (31.0-35.0); Mean Corpuscular Hemoglobin 29.4 pg (27.0-33.0); Mean Corpuscular Volume 89.8 fL (80.0-98.0); NRBC Abs Auto 0.000 X10*3/uL (0.0-0.012); NRBC Pct Auto 0.0 /100WBC (0.0-0.2); Platelet Count 223 X10*3/uL (160-400); Red Blood Count 4.49 X10*6/uL (4.20-5.50); White Blood Count 7.5 X10*3/uL (4.8-10.8)
[2025-07-31 20:51] LABS: Anion Gap 15 (12-20); Blood Urea Nitrogen 44 mg/dL (9-16); Calcium 9.0 mg/dL (8.4-10.2); Carbon Dioxide 24 mmol/L (22-29); Chloride 107 mmol/L (96-108); Creatinine Clr Calc Pharmacy 18.8; Estimated Glomerular Filt Rate 20; Potassium 4.9 mmol/L (3.3-5.1); Sodium 141 mmol/L (135-145)
[2025-07-31 20:59] LABS: NT Pro B Type Natriuretic Pept 5288.5 pg/mL (<300); Troponin-I High Sensitivity 9.4 ng/L (<3.5-17.0)
--- OUTSIDE RECORDS SUMMARY | 2025-07-31 21:21 | XMS_ITS | Clinical Summary ---
Author Organization [facility] Address [address] [place] [address] Phone Care Team Providers Care Women'S Activities Adviser Name Role Phone Nano Delaney MD Primary Care Provider [phone] Allergies No known active allergies Medications amLODIPine [...] patient's age to complete this topic Insurance [facility] Medicare [facility] Medicare Care Teams Women'S Activities Adviser Relationship Specialty Start Date End Date Nano Delaney MD [address] [place] [address] PCP - General 11/12/20
[2025-07-31 21:34] VITALS: BP 130/74
[2025-07-31] MEDS: Furosemide 40 MG/4 ML VIAL IVPUSH (21:34)
[2025-07-31 21:46] LABS: INTERNATIONAL NORM RATIO 2.1 (0.9-1.1); Prothrombin Time 23.8 SEC (10.9-12.4)
[2025-07-31 21:57] LABS: Troponin-I High Sensitivity 10.4 ng/L (<3.5-17.0)
[2025-07-31 22:06] LABS: Glucose, Whole Blood 148 mg/dL (60-115)
[2025-07-31 23:18] LABS: Troponin-I High Sensitivity 10.5 ng/L (<3.5-17.0)
[2025-08-01] VITALS (12 sets, daily range): BP systolic 116–156; BP diastolic 52–99; PULSE 77–107; RESP 13–20; TEMP 36.5–36.9; O2SAT 93–99; BMI 31.4
[2025-08-01] MEDS: Lidocaine HCl Viscous 2 % 15 ML SOLUTION MUCOUS MEM (00:57)
[2025-08-01] MEDS: Magnesium Hydrox/Alum Hydrox 30 ML ORAL.SUSP PO (00:57)
--- NOTE | 2025-08-01 01:37 | MHC.EDTECH ---
cath bag emptied at this time. 800ml emptied
--- NOTE | 2025-08-01 03:38 | ED.CHESTPAIN ---
HPI - Chest Pain General Chief Complaint: Chest Pain Stated Complaint: chest pressure x40 mins Time Seen by Provider: 07/31/25 20:34 Source: patient Mode of arrival: ambulatory Limitations: no limitations Related Data Home Medications ?Medication ?Instructions ?Recorded ?Confirmed levothyroxine 25 mcg tablet 25 mcg PO DAILY@0600 09/05/20 07/18/25 pen needle, diabetic 32 gauge x #50 ea 12/31/21 07/18/2532 (BD Cathy 2nd Gen Pen Needle) multivitamin (One Daily 1 tab PO DAILY 09/15/22 07/18/25 Multivitamin tablet) lancets 28 gauge (FreeStyle #100 ea 09/29/22 07/18/25 Lancets) vitamins A,C,U-jced-nqoryy 2,148 1 tab PO BIDWM 05/09/23 07/18/25 mcg-113 mg-45 mg-17.4 mg tablet (PreserVision AREDS) amlodipine 5 mg tablet 5 mg PO DAILY 11/13/23 07/18/25 furosemide 20 mg tablet 10 mg PO BID 06/17/24 07/18/25 clopidogrel 75 mg tablet 75 mg PO DAILY 08/01/24 07/18/25 latanoprost 0.005 % eye drops 1 drp ophthalmic (eye) BEDTIME 09/19/24 07/18/25 insulin lispro 100 unit/mL See Protocol subcut BID 02/09/25 07/18/25 subcutaneous pen (Humalog KwikPen (U-100) Insulin) melatonin 10 mg tablet 10 mg PO BEDTIME 04/09/25 07/18/25 warfarin 1 mg tablet 2 mg PO .COMPLEX 04/27/25 07/25/25 moxifloxacin 0.5 % eye drops drp ophthalmic (eye) 06/01/25 07/18/25 Previous Rx's ?Medication ?Instructions ?Recorded atorvastatin 10 mg tablet 10 mg PO BEDTIME #90 tabs 09/22/22 empagliflozin 10 mg tablet 10 mg PO DAILY #30 tabs 09/02/23 (Jardiance) ascorbic acid (vitamin C) 1,000 mg 1 g PO DAILY #90 tabs 08/23/24 tablet interdry #1 ea 08/23/24 insulin glargine 100 unit/mL 15 unit (0.15 mL) subcut BEDTIME 06/12/25 subcutaneous solution (Lantus #10 mL U-100 Insulin) mirabegron 50 mg tablet,extended 50 mg PO DAILY #30 tabs 04/13/25 release 24 hr (Myrbetriq) valsartan 40 mg tablet 20 mg (1/2 x 40 mg) PO BID #180 05/09/25 tabs metoprolol succinate 200 mg 200 mg PO DAILY #90 tabs 05/19/25 tablet,extended release 24 hr sulfamethoxazole 800 1 tab PO ONCE PRN for prevention 07/12/25 mg-trimethoprim 160 mg tablet of UTI with catheter changes 30 (Bactrim DS) days #3 tabs Allergies Allergy/AdvReac Type Severity Reaction Status Date / Time No Known Allergies Allergy Verified 07/31/25 20:15 Review of Systems Review of Systems: Pertinent review of systems as mentioned in HPI. All other system otherwise negative. [facility] Narrative: Medical history as mentioned in HPI Medical History (Updated 08/01/25 @ 03:38 by Marjorie Cervantes DO) Suprapubic catheter Atrial fibrillation Hydronephrosis determined by ultrasound Permanent atrial fibrillation DOROTHY (acute kidney injury) Atrial fibrillation Neuropathy Neurogenic bladder CVA (cerebral vascular accident) Shingles Elevated cholesterol Myocardial infarction MRSA infection Hip pain Leg wound, left Varicose vein of leg Osteoarthritis of right hip Current use of anticoagulant therapy Recurrent UTI PAF (paroxysmal atrial fibrillation) Congestive heart failure Urinary incontinence Hypothyroidism Diabetes Hypertension CKD (chronic kidney disease) CAD (coronary artery disease) Hypotonic neurogenic bladder Surgical History (Updated 04/21/25 @ 00:02 by Amari Adame) History of left knee replacement History of right knee joint replacement H/O heart artery stent H/O nasal polypectomy History of tubal ligation History of tonsillectomy and adenoidectomy Hx of cholecystectomy Family History Family History Father Hx of angina pectoris Myocardial infarction Mother Ovarian cancer Stomach cancer Maternal Grandfather Hardening of the arteries of the heart Other Neurogenic bladder Social History Social History Household Members: Family Household Members Other:: daughter Housing: House Are you a primary college and career counselor to a significant other at home: No Do you presently have visiting nurse or other home services: Yes (meals on wheels 5 days) Alcohol intake: never Comment: [facility] [place] Patient Tobacco Use Status: Never used Tobacco Smoked in Last 30 Days: No Second Hand Smoke Exposure: No Use of substances other than those prescribed or required for medical reasons: No Advance Directives: Yes Advance Directives on File: Yes Advance Directives Date on File: 08/27/22 Do you have a plan to hurt others: No Plan service: No Current occupational status: retired Physical Exam Exam: Exam: General: Pleasant, no distress, interacting appropriately Head: Normacephalic, atraumatic ENT: oral mucosa moist, neck supple, no tracheal deviation Cardiovascular: regular rate, regular rhythm, no murmurs, rubbing, gallops Respiratory: CTAB, no wheeze, rales, rhonchi Gastrointestinal: Soft, non distended, non tender, non guarding Extremities: No limb pain or swelling, no calf tenderness Neurological: Awake and alert, no facial droop noted Skin: Warm and dry Psychiatric: Appropriate mood and thoughts Vital Signs: Vital Signs: Last Vital Signs Temp 97.6 F 07/31/25 20:11 Pulse 88 08/01/25 01:24 Resp 17 08/01/25 01:24 BP 116/60 08/01/25 01:24 Pulse Ox 94 08/01/25 01:24 O2 Del Method Room Air 08/01/25 01:24 BMI result Body Mass Index 30.0 Medications Administered Discontinued Medications Generic Name Dose Route Start Last Admin Trade Name Freq PRN Reason Stop Dose Admin Al Hydroxide/Mg Hydroxide 30 ml 07/31/25 23:59 08/01/25 00:57 Magnesium Hydrox/Alum Hydrox 30 Ml Oral.Susp PO 08/01/25 00:00 30 ml ONCE ONE Administration Furosemide 40 mg 07/31/25 21:06 07/31/25 21:34 Furosemide 40 Mg/4 Ml Vial IVPUSH 07/31/25 21:07 40 mg ONCE ONE Administration Protocol Lidocaine HCl 15 ml 07/31/25 23:59 08/01/25 00:57 Lidocaine Hcl Viscous 2 % 15 Ml Solution MUCOUS MEM 08/01/25 00:00 15 ml ONCE ONE Administration Medical Decision Making Lab Data 07/31/25 20:32 07/31/25 20:32 Labs: Lab Results 07/31/25 07/31/25 07/31/25 Range/Units 20:32 21:31 22:02 WBC 7.5 (4.8-10.8) X10*3/uL RBC 4.49 (4.20-5.50) X10*6/uL Hgb 13.2 (12.0-16.0) g/dl Hct 40.3 (37.0-47.0) % MCV 89.8 (80.0-98.0) fL MCH 29.4 (27.0-33.0) pg MCHC 32.8 (31.0-35.0) g/dl RDW 16.6 H (11.0-16.0) % Plt Count 223 (160-400) X10*3/uL MPV 8.9 L (9.4-12.3) fL Immature Gran % (Auto) 0.7 H (0.0-0.4) % Neut % (Auto) 52.7 (45-73) % Lymph % (Auto) 28.2 (20-40) % [place] % (Auto) 14.4 H (2-11) % Eos % (Auto) 3.5 (0-4) % Baso % (Auto) 0.5 (0-2) % Lymph # (Auto) 2.1 (1.2-4.9) X10*3/uL [place] # (Auto) 1.1 (0.1-1.2) X10*3/uL Eos # (Auto) 0.3 (0.0-0.4) X10*3/uL Baso # (Auto) 0.0 (0.0-0.2) X10*3/uL Abs Immat Gran (auto) 0.05 H (0.00-0.03) X10*3/uL Absolute Neuts (auto) 4.0 (2.0-8.3) x10*3/uL Absolute Nucleated RBC 0.000 (0.0-0.012) X10*3/uL Nucleated RBC % (auto) 0.0 (0.0-0.2) /100WBC PT 23.8 H (10.9-12.4) SEC INR 2.1 H (0.9-1.1) Sodium 141 (135-145) mmol/L Potassium 4.9 (3.3-5.1) mmol/L Chloride 107 (96-108) mmol/L Carbon Dioxide 24 (22-29) mmol/L Anion Gap 15 (12-20) BUN 44 H (9-16) mg/dL Creatinine 2.35 H (0.5-1.4) mg/dL Estim Creat Clear Calc 18.8 Estimated GFR 20 POC Glucose 148 H (60-115) mg/dL Random Glucose 205 H (60-115) mg/dL Calcium 9.0 (8.4-10.2) mg/dL Troponin I High Sens 9.4 10.4 (<3.5-17.0) ng/L NT-Pro-B Natriuret Pep 5288.5 H (<300) pg/mL 07/31/25 Range/Units 22:52 WBC (4.8-10.8) X10*3/uL RBC (4.20-5.50) X10*6/uL Hgb (12.0-16.0) g/dl Hct (37.0-47.0) % MCV (80.0-98.0) fL MCH (27.0-33.0) pg MCHC (31.0-35.0) g/dl RDW (11.0-16.0) % Plt Count (160-400) X10*3/uL MPV (9.4-12.3) fL Immature Gran % (Auto) (0.0-0.4) % Neut % (Auto) (45-73) % Lymph % (Auto) (20-40) % [place] % (Auto) (2-11) % Eos % (Auto) (0-4) % Baso % (Auto) (0-2) % Lymph # (Auto) (1.2-4.9) X10*3/uL [place] # (Auto) (0.1-1.2) X10*3/uL Eos # (Auto) (0.0-0.4) X10*3/uL Baso # (Auto) (0.0-0.2) X10*3/uL Abs Immat Gran (auto) (0.00-0.03) X10*3/uL Absolute Neuts (auto) (2.0-8.3) x10*3/uL Absolute Nucleated RBC (0.0-0.012) X10*3/uL Nucleated RBC % (auto) (0.0-0.2) /100WBC PT (10.9-12.4) SEC INR (0.9-1.1) Sodium (135-145) mmol/L Potassium (3.3-5.1) mmol/L Chloride (96-108) mmol/L Carbon Dioxide (22-29) mmol/L Anion Gap (12-20) BUN (9-16) mg/dL Creatinine (0.5-1.4) mg/dL Estim Creat Clear Calc Estimated GFR POC Glucose (60-115) mg/dL Random Glucose (60-115) mg/dL Calcium (8.4-10.2) mg/dL Troponin I High Sens 10.5 (<3.5-17.0) ng/L NT-Pro-B Natriuret Pep (<300) pg/mL Discharge Plan Discharge Clinical Impression: CHF (congestive heart failure) Qualifiers: Heart failure type: unspecified Heart failure chronicity: acute on chronic Qualified Code(s): I50.9 - Heart failure, unspecified Chest pain Qualifiers: Chest pain type: unspecified Qualified Code(s): R07.9 - Chest pain, unspecified Patient Disposition: Admitted As Inpatient Print Language: Amharic
--- NOTE | 2025-08-01 03:44 | PM.IMHP ---
History of Present Illness Date of Service: 08/01/25 Attending physician on admission: Saud Velazquez Chief Complaint: ches tpain Patient is an 84-year-old female with past medical history IDDM, peripheral neuropathy, PVD with stents to the right leg, CVA/TIA, AFIB on coumadin, hypertension, CAD, glaucoma, presence of suprapubic catheter due to bladder spasms/ neurogenic bladder, hypothyroidism, HFrEF, Modrate Aortic Stenosis (last echo 2023), HLD, UTI, DOROTHY, hx of stage II pressure ulcer associated with past R fibula fx (08/2023), obesity, MRSA infection was brought in by ambulance after experiencing acute chest pain/pressure which was nonradiating/ mid sternal and associated with palpitations. Patient also states that she has been having more difficulty with catching her breath especially at rest. Patient also states when she lies down to rest she has bouts of dizziness that resolved within 1-2 minutes.Patient describes this sensation as fluttering. Patient has known history of AFib on Coumadin. INR 2.1 today. Patient had received 324 mg of aspirin with EMS. Pt states the chest sensation has eased. Pt has been walker dependent with noted decrease in strength over the last 3 years. pt reports recent fall or slipping off chair of walker with no obvious injury or hit to the head. Last incident was weeks ago per pt. Workup in the ED notes troponins negative x3, no abnormal findings on telemetry or EKG. EKG negative for STEMI. CBC negative for leukocytosis or anemia. BNP elevated at 5000.Patient received 40 mg of IV Lasix. ED provider suspected fluid volume overload with known moderate aortic stenosis. Chest x-ray negative for any pleural effusion, pneumonia or pulmonary edema. CT chest pending. Patient is on Coumadin for AFib and there is low suspicion for PE. Patient currently on room air satting 94%. Patient's renal function similar to previous function but there is concern for DOROTHY and patient was recently treated for UTI. UA is pending. Patient also states that her suprapubic catheter was changed at Dr. Sharma's office yesterday and patient is due for 1 more dose of antibiotic as she takes the antibiotics the day before, the day of the catheter change and the day after. Bactrim is the usual medication but due to renal function will not be able to prescribe. Incidentally patient does have the [facility] coming in once a week to test her INR and perform clinical assessment. Patient's knowledge base of heart failure is very limited. Review of Systems Review of Systems: Patient reports using of chest pressure and denies any shortness breath at rest currently. Patient denies any nausea, vomiting, abdominal pain, diarrhea or constipation. Patient does have chronic neuropathy and examined in the lower legs promote sensitivity. Patient does have chronic edema in the lower extremities. Yes all other systems are reviewed and are negative [facility] Medical History Suprapubic catheter Atrial fibrillation Hydronephrosis determined by ultrasound Permanent atrial fibrillation DOROTHY (acute kidney injury) Atrial fibrillation Neuropathy Neurogenic bladder CVA (cerebral vascular accident) Shingles Elevated cholesterol Myocardial infarction MRSA infection Hip pain Leg wound, left Varicose vein of leg Osteoarthritis of right hip Current use of anticoagulant therapy Recurrent UTI PAF (paroxysmal atrial fibrillation) Congestive heart failure Urinary incontinence Hypothyroidism Diabetes Hypertension CKD (chronic kidney disease) CAD (coronary artery disease) Hypotonic neurogenic bladder Cognitive capacity: Alert and orientated x3 Functional capacity: uses cane/walker (Patient has been dependent on walker for the last 3 years, patient no longer drives) Patient : No Family History Father Hx of angina pectoris Myocardial infarction Mother Ovarian cancer Stomach cancer Maternal Grandfather Hardening of the arteries of the heart Other Neurogenic bladder Surgical History History of left knee replacement History of right knee joint replacement H/O heart artery stent H/O nasal polypectomy History of tubal ligation History of tonsillectomy and adenoidectomy Hx of cholecystectomy Social History Household Members: Family Household Members Other:: daughter Housing: House Are you a primary resident care assistant to a significant other at home: No Do you presently have visiting nurse or other home services: Yes (meals on wheels 5 days) Alcohol intake: never Comment: [facility] [place] Patient Tobacco Use Status: Never used Tobacco Smoked in Last 30 Days: No Second Hand Smoke Exposure: No Use of substances other than those prescribed or required for medical reasons: No Advance Directives: Yes Advance Directives on File: Yes Advance Directives Date on File: 08/27/22 Do you have a plan to hurt others: No Plan Patient : No service: No Current occupational status: retired Ebola Risk: Travel/Contact With Anyone From Affected Area/s: No Has Patient Experienced Ebola Symptoms: No Meds Allergies Allergy/AdvReac Type Severity Reaction Status Date / Time No Known Allergies Allergy Verified 07/31/25 20:15 Active Medications: Current Medications Acetaminophen (Acetaminophen 325 Mg Tablet) 650 mg PO Q6H PRN PRN Reason: Pain, Mild 1-3,fever,headache Albuterol/Ipratropium (Albuterol/Iprat 2.5/0.5mg 3 Ml Ampul.Neb) 3 ml INHALE Q4H PRN PRN Reason: Shortness of Breath/Wheezing Calcium Carbonate (Calcium Carbonate 750 Mg Tab.Chew) 750 mg PO Q4H PRN PRN Reason: Heartburn Enoxaparin Sodium (Enoxaparin Sodium 40 Mg/0.4 Ml Syringe) 40 mg SUBCUT Q24H SUN Magnesium Hydroxide (Milk Of Magnesia 30 Ml Oral.Susp) 30 ml PO DAILY PRN PRN Reason: Constipation Melatonin (Melatonin 3 Mg Tablet) 6 mg PO BEDTIME PRN PRN Reason: Insomnia Ondansetron HCl (Ondansetron Hcl 4 Mg/2 Ml Vial) 4 mg IVPUSH Q8H PRN PRN Reason: Nausea and Vomiting Polyethylene Glycol (Polyethylene Glycol 3350 17 Gm Powd.Pack) 17 gm PO DAILY PRN PRN Reason: Constipation Senna (Sennosides 8.6 Mg Tablet) 17.2 mg PO BEDTIME SUN Sodium Chloride (0.9 % Sodium Chloride Flush 3 Ml Syringe) 3 ml IVFLUSH QSHIFT SUN Home Medications ?Medication ?Instructions ?Recorded ?Confirmed ?Last Taken ?Type levothyroxine 25 mcg tablet 25 mcg PO DAILY@0600 09/05/20 07/18/25 06/16/24 History pen needle, diabetic 32 gauge x #50 ea 12/31/21 07/18/25 06/16/24 History 5/32 (BD Cathy 2nd Gen Pen Needle) multivitamin (One Daily 1 tab PO DAILY 09/15/22 07/18/25 06/16/24 History Multivitamin tablet) lancets 28 gauge (FreeStyle #100 ea 09/29/22 07/18/25 06/16/24 History Lancets) vitamins A,C,O-vmfr-kuqvly 2,148 1 tab PO BIDWM 05/09/23 07/18/25 06/16/24 History mcg-113 mg-45 mg-17.4 mg tablet (PreserVision AREDS) amlodipine 5 mg tablet 5 mg PO DAILY 11/13/23 07/18/25 06/16/24 History furosemide 20 mg tablet 10 mg PO BID 06/17/24 07/18/25 06/16/24 History clopidogrel 75 mg tablet 75 mg PO DAILY 08/01/24 07/18/25 Unknown History latanoprost 0.005 % eye drops 1 drp ophthalmic (eye) BEDTIME 09/19/24 07/18/25 Unknown History insulin lispro 100 unit/mL See Protocol subcut BID 02/09/25 07/18/25 Unknown History subcutaneous pen (Humalog KwikPen (U-100) Insulin) melatonin 10 mg tablet 10 mg PO BEDTIME 04/09/25 07/18/25 Unknown History warfarin 1 mg tablet 2 mg PO .COMPLEX 04/27/25 07/25/25 Unknown History moxifloxacin 0.5 % eye drops drp ophthalmic (eye) 06/01/25 07/18/25 Unknown History Physical Exam Vital Signs and Narrative: Vital Signs: Last Vital Signs Temp 97.6 F 07/31/25 20:11 Pulse 88 08/01/25 01:24 Resp 17 08/01/25 01:24 BP 116/60 08/01/25 01:24 Pulse Ox 94 08/01/25 01:24 O2 Del Method Room Air 08/01/25 01:24 BMI result Body Mass Index 30.0 Alert and orientated X3, able to give good history. Neuro: CN II-X11 intact, no deficits, visual acuity intact EYES: PERRLA, EOM intact, sclerae nonicteric, glasses on ENT: hearing intact, no issues with swallowing, uvula midline, lips moist, nares patent no epistaxis, dentition in good repair Cardiac: Irregular rate controlled, no murmur, no JVD, no edema in Lower ext Pulmonary: lungs clear to auscultation B Abdominal: BS active in all 4 quadrants, no guarding, tenderness, rebounding MSK: strength 3-4/5 upper and lower extremities : no CVA tenderness no bladder distension suprapubic catheter patent, insertion site clean and dry Extremities: no edema in lower extremities, PT and DP pulses palpable +2 Psych: mood stable, judgement and insight good Skin: Very small healed lesions right lower extremity Results Labs 07/31/25 20:32 07/31/25 20:32 Labs: Laboratory Results - last 24 hr 07/31/25 07/31/25 07/31/25 20:32 21:31 22:02 MCV 89.8 MCH 29.4 MCHC 32.8 RDW 16.6 H Plt Count 223 MPV 8.9 L Immature Gran % (Auto) 0.7 H Neut % (Auto) 52.7 Lymph % (Auto) 28.2 [place] % (Auto) 14.4 H Eos % (Auto) 3.5 Baso % (Auto) 0.5 Lymph # (Auto) 2.1 [place] # (Auto) 1.1 Eos # (Auto) 0.3 Baso # (Auto) 0.0 Abs Immat Gran (auto) 0.05 H Absolute Neuts (auto) 4.0 Absolute Nucleated RBC 0.000 Nucleated RBC % (auto) 0.0 PT 23.8 H INR 2.1 H Anion Gap 15 Estim Creat Clear Calc 18.8 Estimated GFR 20 POC Glucose 148 H Random Glucose 205 H Calcium 9.0 Troponin I High Sens 9.4 10.4 NT-Pro-B Natriuret Pep 5288.5 H 07/31/25 22:52 MCV MCH MCHC RDW Plt Count MPV Immature Gran % (Auto) Neut % (Auto) Lymph % (Auto) [place] % (Auto) Eos % (Auto) Baso % (Auto) Lymph # (Auto) [place] # (Auto) Eos # (Auto) Baso # (Auto) Abs Immat Gran (auto) Absolute Neuts (auto) Absolute Nucleated RBC Nucleated RBC % (auto) PT INR Anion Gap Estim Creat Clear Calc Estimated GFR POC Glucose Random Glucose Calcium Troponin I High Sens 10.5 NT-Pro-B Natriuret Pep ECG Attestation: I personally reviewed and interpreted this ECG as follows: (AFib rate controlled with PVCs or aberrant conduction) Prior ECG tracings: available for review Imaging Radiologist's Impressions: Chest x-ray Negative for acute findings including pleural effusion, pulmonary edema or pneumonia Chest CT Evidence of pulmonary artery hypertension Left upper lobe scarring unchanged from previous CT Mild atelectasis bilaterally No consolidation effusion or pneumothorax Osteopenia Assessment and Plan (1) Chest pain: Qualifiers: Chest pain type: unspecified Qualified Code(s): R07.9 - Chest pain, unspecified Status: Acute (2) Aortic stenosis: Qualifiers: Cardiac valve disease etiology: nonrheumatic Qualified Code(s): I35.0 - Nonrheumatic aortic (valve) stenosis Status: Acute (3) CHF (congestive heart failure): Qualifiers: Heart failure chronicity: acute on chronic Heart failure type: unspecified Qualified Code(s): I50.9 - Heart failure, unspecified Status: Acute (4) Acute kidney injury superimposed on CKD: Status: Acute Plan Patient is an 84-year-old female with past medical history IDDM, peripheral neuropathy, AFIB on coumadin, hypertension, CAD, glaucoma, presence of suprapubic catheter due to bladder spasms/ neurogenic bladder, hypothyroidism, HFrEF, Modrate Aortic Stenosis (last echo 2023), HLD, UTI, DOROTHY, hx of stage II pressure ulcer associated with past R fibula fx (08/2023), obesity, MRSA infection was brought in by ambulance after experiencing acute chest pain/pressure which was nonradiating/ mid sternal and associated with palpitations. Patient also states that she has been having more difficulty with catching her breath especially at rest. Patient also states when she lies down to rest she has bouts of dizziness that resolved within 1-2 minutes. Patient being admitted for cardiac workup to include CHF, moderate aortic stenosis along with DOROTHY on chronic kidney disease. Chest pain with no evidence to support ACS Troponins negative x3 EKG negative for STEMI Cardiology consulted Telemetry continuous Lipid panel pending Continue statin Moderate aortic stenosis Echo ordered Using diuretics conservatively Orthostatics ordered QS X3 HFrEF 45-50% with elevated BNP (5288) Echo ordered as above Low-salt cardiac diet Daily weights Measure I's and o's FLuid Allowance 1500 mls daily CHF education should be initiated this admission DOROTHY on CKD Nephrology consulted Urine studies ordered Patient has suprapubic catheter with Healy placement that was changed Thursday with Dr. Zachary MANTILLA pending Patient would normally receive Bactrim the day after catheter change but this is on hold due to renal function. Pt did receive bactrim this past Thursday and Thursday as part of her regimen with Dr. Sharma and Suprapubic catheter change. Hold Jardiance Atrial fibrillation on Coumadin/ PVCs Daily INR Dose Coumadin in the a.m. Telemetry notes AFib rate controlled with PVCs MG pending , K stable IDDM SSI Diabetic diet Holding Jardiance due to renal function Continue Lantus once med rec completed Neuropathy/PVD/ history of stents to the right leg Continue Plavix Continue Statin Hyperlipidemia Continue statin LFT stable Hypothyroidism TSH with reflex pending Continue current dose of levothyroxine and adjust accordingly if needed Progressive decline in function, hx of falls PT eval ordered Walker used for ambulation DVT prophylaxis: Coumadin Med rec pending Full code status Quality Stroke Does the patient have a stroke diagnosis?: No Reason for No Anti-thrombotic by Day Two: N/A - Med Ordered VTE Prior VTE?: No VTE Risk Level:: Medical - moderate - high VTE Device Contraindication: N/A - Device Ordered VTE Drug Contraindication: N/A - Med Ordered
--- NOTE | 2025-08-01 06:05 | PC.NURSE ---
pt resting comfortably throughout the night, mild chest pain remains, NSR on tele. catheter draining pale yellow urine. no apparent distress noted. call zhou w/in reach
--- NOTE | 2025-08-01 07:00 | CA_ITS ---
Transthoracic Echocardiogram Patient (Last, First, Middle): Belen Brady I Gender: F Date of : 1940 Age: 84 Procedure Date: 08/01/2025 Procedure Type: Transthoracic Echocardiogram Location: ER Height: 165.1 cm Weight: 81.65 kg BSA: 1.89 m2 Heart Rate: bpm BP: 131 / 99 mmHg Beaming Inspector: TANISHA Referring MD: Carmen Cordova BROKE MAN- Symptoms: hx of moderate , chest pain, elevated BNP Study Quality: Adequate ECG Rhythm: Atrial Fibrillation Conclusions: - The left ventricular systolic function is mildly decreased. The calculated ejection fraction is 51% by biplane method. - Overall, paradoxical low-flow, low gradient moderate aortic stenosis. Findings Left Ventricle Normal left ventricular cavity size. There is normal left ventricular wall thickness. The left ventricular systolic function is mildly decreased. The calculated ejection fraction is 51% by biplane method. There is mild global hypokinesis. Diastolic function is indeterminate on the basis of available data. Right Ventricle Normal right ventricular cavity size. There is mildly decreased right ventricular systolic function. Atria Both atria are normal in size. Aortic Valve There is moderate calcification of the aortic valve. The mean gradient is 11 mmHg. The aortic valve area is 1.07 cm2. There is no aortic valve regurgitation. Dimensionless index 0.37. Stroke volume index 28 mL/m2. Overall, paradoxical low-flow, low gradient moderate aortic stenosis. Mitral Valve The mitral valve appears normal. There is mild mitral valve regurgitation. There is no mitral valve stenosis. Pulmonic Valve The pulmonic valve is likely normal. Tricuspid Valve There is trace tricuspid valve regurgitation. There is no evidence of pulmonary hypertension. Great Vessels The asc aorta is normal in size. Venous The inferior vena cava is normal in size and collapses greater than 50% with inspiration. Pericardium/Pleural There is no evidence of pericardial effusion. Prior Study Comparison No significant change compared to prior study dated: 06/17/2024. Measurements 2D Linear Measurements IVSd: 0.99 0.6-0.9/0.6-1.0 cm LVIDd: 4.54 3.9-5.3/4.2-5.9 cm LVIDd Index: 2.40 2.4-3.2/2.2-3.1 cm/m2 LVIDs: 3.57 2.0-3.6 cm LVPWd: 0.94 0.7-1.1 cm LA Diam: 4.20 2.7-3.8/3.0-4.0 cm LAIDs Index: 2.22 1.5-2.3 cm/m2 LV Mass: 184.88 67-162/88-224 g LV Mass Index: 97.82 43-95/49-115 g/m2 LVOT Diam: 2.00 3.0+(-)1.3 cm 2D Systolic Function EF 4C: 49.90 >55% EF 2C: 49.60 >55% EF BiP: 50.70 >55% Mitral Valve MV Pk E: 1.26 MV Decel Time: 199.00 E'Lateral: 9.57 E'Medial: 5.55 E/E' Med: 22.70 E/E' Lat: 13.20 PHT: 58.00 MVA PHT: 3.79 Decel Williams: 6.33 Aortic Valve AoV Pk Marcus: 2.10 AoV Mn Marcus: 1.52 AoV VTI: 0.50 AoV Pk Grad: 18.00 Aov Mn Grad: 11.00 ANDI Cont.VTI: 1.07 LVOT LVOT Pk Marcus: 0.77 LVOT Mn Marcus: 0.57 LVOT VTI: 0.17 LVOT Pk Grad: 2.00 LVOT Mn Grad: 1.00 LVOT Diam: 2.00 LVOT Area: 3.14 Diastolic Function MV Pk E: 1.26 E'Medial: 5.55 E/E' Med: 22.70 E' Laterial: 9.57 E/E' Lat: 13.20 Right Ventricle TAPSE (mm): 19.50 TVS' Marcus: 8.70 Tricuspid Valve TR Pk Marcus: 2.59 TR Pk Grad: 27.00 Great Vessels Aorta Sinus of Valsalva: 2.60 2.0-3.5 cm Ao Asc: 3.40 2.1-3.4 cm Pulmonary Valve PV Pk Marcus: 0.74 Peak PV Grad: 2.00 Updated in Other Vendor System with Status of Final Rene Patterson MD electronically signed on 08/01/2025 4:38:08 PM with status of Final
[2025-08-01 07:01] LABS: MANUAL DIFF FLAG NO
[2025-08-01 07:02] LABS: Hematocrit 43.1 % (37.0-47.0); Hemoglobin 14.3 g/dl (12.0-16.0); Imm Gran Abs Auto 0.03 X10*3/uL (0.00-0.03); Imm Gran Pct Auto 0.4 % (0.0-0.4); Lymphocytes Absolute Auto 1.4 X10*3/uL (1.2-4.9); Mean Corpuscular HGB Conc 33.2 g/dl (31.0-35.0); Mean Corpuscular Hemoglobin 29.5 pg (27.0-33.0); Mean Corpuscular Volume 89.0 fL (80.0-98.0); NRBC Abs Auto 0.000 X10*3/uL (0.0-0.012); NRBC Pct Auto 0.0 /100WBC (0.0-0.2); Platelet Count 200 X10*3/uL (160-400); Red Blood Count 4.84 X10*6/uL (4.20-5.50); White Blood Count 7.6 X10*3/uL (4.8-10.8)
[2025-08-01 07:03] LABS: Appearance Urine Clear; Glucose Urine UA 500 mg/dL (Negative); PH 7.0 (5.0-9.0); Specific Gravity - Urine 1.010 (1.005-1.025); UMIC TRIGGER UA YES
[2025-08-01 07:16] LABS: INTERNATIONAL NORM RATIO 2.0 (0.9-1.1); Prothrombin Time 23.4 SEC (10.9-12.4)
[2025-08-01 07:29] LABS: Alanine Aminotransferase 19 U/L (0-31); Albumin Level 4.0 g/dL (3.5-5.0); Alkaline Phosphatase 154 U/L (39-117); Anion Gap 15 (12-20); Aspartate Amino Transferase 33 U/L (5-31); Blood Urea Nitrogen 43 mg/dL (9-16); Calcium 9.5 mg/dL (8.4-10.2); Carbon Dioxide 25 mmol/L (22-29); Chloride 107 mmol/L (96-108); Cholesterol 118 mg/dL (<200); Creatinine Clr Calc Pharmacy 20.4; Estimated Glomerular Filt Rate 22; HDL Cholesterol 33 mg/dL (>40); Potassium 3.9 mmol/L (3.3-5.1); Sodium 143 mmol/L (135-145); Total Protein 8.3 g/dL (6.5-8.0); Triglycerides 86 mg/dL (<150)
[2025-08-01 07:33] LABS: Reflex LDLD? No
[2025-08-01 08:15] LABS: EOS Counted 2 CELLS; EOS QC POS YES; EOS Stain Quality OK YES; WBC, Counted 100 CELLS
[2025-08-01] MEDS: 0.9 % Sodium Chloride Flush 3 ML SYRINGE IVFLUSH ×2 (09:04→18:03)
--- NOTE | 2025-08-01 09:09 | PM.CNCAR ---
History of Present Illness History of Present Illness Date of Service: 08/01/25 Chief complaint: chest pain Narrative: This is a cardiology consultation regarding chest pain. Last seen in our clinic by nurse practitioner in 2022. Cardiac issues listed in her note include persistent atrial fibrillation, congestive heart failure with preserved ejection fraction, coronary artery disease with prior abnormal stress test. Current admissions because of chest pain. Many medical comorbidities in the addition to the above including diabetes, peripheral neuropathy, peripheral vascular disease with stents to right leg, CVA/TIA, hypertension, glaucoma, suprapubic catheter, hypothyroidism, UTI, DOROTHY, pressure also, obesity, MRSA. It seems that patient had chest pain/pressure and that led to the current visit. This was sudden onset and happen when she was resting. It does not appear that she actually has much of activity at baseline and overall, gradual decline over the last 3 years or so. Additionally, it seems she had a recent fall slipping of chair with no obvious injury. So far, she has received IV Lasix in the ER as there was suspicion for volume overload. There was concern for DOROTHY. Otherwise, she is currently pain-free. Review of Systems Review of Systems: Yes all other systems are reviewed and are negative Constitutional: Constitutional: Reports as per HPI and Reports no additional constitutional complaints Eyes: Eyes: Reports as per HPI and Denies no additional eye complaints ENT: Denies system reviewed and no additional complaints, except as documented and Reports as per HPI Cardiovascular: Cardiovascular: Reports as per HPI, Reports no additional cardiovascular complaints, Denies acrocyanosis, Denies cool extremities, Denies chest pain, Denies leg edema, Denies lightheadedness, Denies palpitations and Denies dyspnea Respiratory: Respiratory: Reports as per HPI, Denies no additional respiratory complaints and Denies dyspnea Gastrointestinal: Gastrointestinal: Reports as per HPI and Denies no additional gastrointestinal complaints Genitourinary: Genitourinary: Reports as per HPI Musculoskeletal: Musculoskeletal: Reports no additional musculoskeletal complaints and Reports as per HPI Integumentary/Breasts: Skin/Breast: Reports system reviewed and no additional complaints, except as docu Neurologic: Reports system reviewed and no additional complaints, except as documented and Reports as per HPI Psychiatric: Psychiatric: Reports no additional psychiatric complaints and Reports as per HPI Endocrine: Endocrine: Reports no additional endocrine complaints, Reports as per HPI and Denies palpitations Hematologic/Lymphatic: Hematologic/Lymphatic: Reports no additional hematologic/lymphatic complaints and Reports as per HPI Allergic/Immunologic: Allergic/Immunologic: Reports no additional allergic/immunologic complaints and Reports as per HPI [facility] Past Medical History Medical History (Updated 08/01/25 @ 09:16 by Rene Patterson MD) CKD (chronic kidney disease) Suprapubic catheter Atrial fibrillation Hydronephrosis determined by ultrasound Permanent atrial fibrillation DOROTHY (acute kidney injury) Atrial fibrillation Neuropathy Neurogenic bladder CVA (cerebral vascular accident) Shingles Elevated cholesterol Myocardial infarction MRSA infection Hip pain Leg wound, left Varicose vein of leg Osteoarthritis of right hip Current use of anticoagulant therapy Recurrent UTI PAF (paroxysmal atrial fibrillation) Congestive heart failure Urinary incontinence Hypothyroidism Diabetes Hypertension CAD (coronary artery disease) Hypotonic neurogenic bladder Family History Family History Father Hx of angina pectoris Myocardial infarction Mother Ovarian cancer Stomach cancer Maternal Grandfather Hardening of the arteries of the heart Other Neurogenic bladder Surgical History Surgical History History of left knee replacement History of right knee joint replacement H/O heart artery stent H/O nasal polypectomy History of tubal ligation History of tonsillectomy and adenoidectomy Hx of cholecystectomy Social History Social History Household Members: Family Household Members Other:: daughter Housing: House Are you a primary home care specialist to a significant other at home: No Do you presently have visiting nurse or other home services: Yes (meals on wheels 5 days) Alcohol intake: never Comment: [facility] Patient Tobacco Use Status: Never used Tobacco Smoked in Last 30 Days: No Second Hand Smoke Exposure: No Use of substances other than those prescribed or required for medical reasons: No Advance Directives: Yes Advance Directives on File: Yes Advance Directives Date on File: 08/27/22 Do you have a plan to hurt others: No Plan Patient : No service: No Current occupational status: retired Travel History Ebola Risk: Travel/Contact With Anyone From Affected Area/s: No Has Patient Experienced Ebola Symptoms: No Meds Allergies Allergy/AdvReac Type Severity Reaction Status Date / Time No Known Allergies Allergy Verified 07/31/25 20:15 Active Medications: Current Medications Acetaminophen (Acetaminophen 325 Mg Tablet) 650 mg PO Q6H PRN PRN Reason: Pain, Mild 1-3,fever,headache Albuterol/Ipratropium (Albuterol/Iprat 2.5/0.5mg 3 Ml Ampul.Neb) 3 ml INHALE Q4H PRN PRN Reason: Shortness of Breath/Wheezing Calcium Carbonate (Calcium Carbonate 750 Mg Tab.Chew) 750 mg PO Q4H PRN PRN Reason: Heartburn Magnesium Hydroxide (Milk Of Magnesia 30 Ml Oral.Susp) 30 ml PO DAILY PRN PRN Reason: Constipation Melatonin (Melatonin 3 Mg Tablet) 6 mg PO BEDTIME PRN PRN Reason: Insomnia Ondansetron HCl (Ondansetron Hcl 4 Mg/2 Ml Vial) 4 mg IVPUSH Q8H PRN PRN Reason: Nausea and Vomiting Polyethylene Glycol (Polyethylene Glycol 3350 17 Gm Powd.Pack) 17 gm PO DAILY PRN PRN Reason: Constipation Senna (Sennosides 8.6 Mg Tablet) 17.2 mg PO BEDTIME SUN Sodium Chloride (0.9 % Sodium Chloride Flush 3 Ml Syringe) 3 ml IVFLUSH QSHIFT SUN Last Admin: 08/01/25 09:04 Dose: 3 ml Home Medications ?Medication ?Instructions ?Recorded ?Confirmed ?Last Taken ?Type levothyroxine 25 mcg tablet 25 mcg PO DAILY@0600 09/05/20 07/18/25 06/16/24 History pen needle, diabetic 32 gauge x #50 ea 12/31/21 07/18/25 06/16/24 History (BD Cathy 2nd Gen Pen Needle) multivitamin (One Daily 1 tab PO DAILY 09/15/22 07/18/25 06/16/24 History Multivitamin tablet) lancets 28 gauge (FreeStyle #100 ea 09/29/22 07/18/25 06/16/24 History Lancets) vitamins A,C,K-yrat-wuyazy 2,148 1 tab PO BIDWM 05/09/23 07/18/25 06/16/24 History mcg-113 mg-45 mg-17.4 mg tablet (PreserVision AREDS) amlodipine 5 mg tablet 5 mg PO DAILY 11/13/23 07/18/25 06/16/24 History furosemide 20 mg tablet 10 mg PO BID 06/17/24 07/18/25 06/16/24 History clopidogrel 75 mg tablet 75 mg PO DAILY 08/01/24 07/18/25 Unknown History latanoprost 0.005 % eye drops 1 drp ophthalmic (eye) BEDTIME 09/19/24 07/18/25 Unknown History insulin lispro 100 unit/mL See Protocol subcut BID 02/09/25 07/18/25 Unknown History subcutaneous pen (Humalog KwikPen (U-100) Insulin) melatonin 10 mg tablet 10 mg PO BEDTIME 04/09/25 07/18/25 Unknown History warfarin 1 mg tablet 2 mg PO .COMPLEX 04/27/25 07/25/25 Unknown History moxifloxacin 0.5 % eye drops drp ophthalmic (eye) 06/01/25 07/18/25 Unknown History Physical Exam Vital Signs: Vital Signs: Last Vital Signs Temp 97.7 F 08/01/25 07:46 Pulse 86 08/01/25 07:50 Resp 19 08/01/25 07:46 BP 124/52 L 08/01/25 07:50 Pulse Ox 95 08/01/25 07:46 O2 Del Method Room Air 08/01/25 07:46 BMI result Body Mass Index 30.0 Const: General: comfortable and no acute distress Orientation/consciousness: patient oriented x3 HEENT: Other: Unremarkable Head: Yes normal to inspection Neck: Neck: Yes normal visual inspection Chest: Chest palpation & inspection: normal inspection of the chest Resp: Auscultation: diminished lung sounds Cardio: Palpation: normal PMI Heart sounds: S1 normal heart sound present, S2 normal heart sound present, no gallops, Murmur heart sound present systolic III/ and no rubs GI: Palpation (GI): Soft to palpation Back/Spine/Pelvis: Other: unremarkable Skin: General skin exam: no rashes or lesions noted Neuro: General: patient oriented x3 Extrem: General: Yes normal to inspection Psych: Mental Status: mental status grossly normal Objective Labs and Meds 08/01/25 06:55 08/01/25 06:55 Lab results: Laboratory Results - last 24 hr 07/31/25 07/31/25 07/31/25 20:32 21:31 22:02 WBC 7.5 RBC 4.49 Hgb 13.2 Hct 40.3 MCV 89.8 MCH 29.4 MCHC 32.8 RDW 16.6 H Plt Count 223 MPV 8.9 L Immature Gran % (Auto) 0.7 H Neut % (Auto) 52.7 Lymph % (Auto) 28.2 Nance % (Auto) 14.4 H Eos % (Auto) 3.5 Baso % (Auto) 0.5 Lymph # (Auto) 2.1 Nance # (Auto) 1.1 Eos # (Auto) 0.3 Baso # (Auto) 0.0 Abs Immat Gran (auto) 0.05 H Absolute Neuts (auto) 4.0 Absolute Nucleated RBC 0.000 Nucleated RBC % (auto) 0.0 PT 23.8 H INR 2.1 H Sodium 141 Potassium 4.9 Chloride 107 Carbon Dioxide 24 Anion Gap 15 BUN 44 H Creatinine 2.35 H Estim Creat Clear Calc 18.8 Estimated GFR 20 POC Glucose 148 H Random Glucose 205 H Calcium 9.0 Total Bilirubin AST ALT Alkaline Phosphatase Troponin I High Sens 9.4 10.4 NT-Pro-B Natriuret Pep 5288.5 H Total Protein Albumin Triglycerides Cholesterol LDL Cholesterol, Calc HDL Cholesterol TSH Urine Color Urine Appearance Urine pH Ur Specific [place] Urine Protein Urine Glucose (UA) Urine Ketones Urine Blood Urine Nitrite Ur Leukocyte Esterase Urine RBC Urine WBC Ur Squamous Epith Cells Urine Bacteria Hyaline Casts Urine Eosinophils % Urine Osmolality Urine Creatinine 07/31/25 08/01/25 08/01/25 22:52 06:55 06:56 WBC 7.6 RBC 4.84 Hgb 14.3 Hct 43.1 MCV 89.0 MCH 29.5 MCHC 33.2 RDW 16.4 H Plt Count 200 MPV 8.7 L Immature Gran % (Auto) 0.4 Neut % (Auto) 63.7 Lymph % (Auto) 18.8 L [place]ance % (Auto) 14.1 H Eos % (Auto) 2.6 Baso % (Auto) 0.4 Lymph # (Auto) 1.4 Nance # (Auto) 1.1 Eos # (Auto) 0.2 Baso # (Auto) 0.0 Abs Immat Gran (auto) 0.03 Absolute Neuts (auto) 4.8 Absolute Nucleated RBC 0.000 Nucleated RBC % (auto) 0.0 PT 23.4 H INR 2.0 H Sodium 143 Potassium 3.9 D Chloride 107 Carbon Dioxide 25 Anion Gap 15 BUN 43 H Creatinine 2.16 H Estim Creat Clear Calc 20.4 Estimated GFR 22 POC Glucose Random Glucose 142 H Calcium 9.5 Total Bilirubin 0.5 AST 33 H ALT 19 Alkaline Phosphatase 154 H Troponin I High Sens 10.5 NT-Pro-B Natriuret Pep Total Protein 8.3 H Albumin 4.0 Triglycerides 86 Cholesterol 118 LDL Cholesterol, Calc 68 HDL Cholesterol 33 L TSH 3.18 Urine Color Yellow Urine Appearance Clear Urine pH 7.0 Ur Specific [place] 1.010 Urine Protein 30 (1+) H Urine Glucose (UA) 500 H Urine Ketones Negative Urine Blood Trace H Urine Nitrite Negative Ur Leukocyte Esterase Moderate (2+) H Urine RBC 3-5 H Urine WBC >50 H Ur Squamous Epith Cells 0-2 Urine Bacteria None Seen Hyaline Casts 0-2 Urine Eosinophils % 2.0 Urine Osmolality 343 L Urine Creatinine 14.46 ECG Interpretation: EKG with atrial fibrillation at a rate of 98/Min. Nonspecific ST-T changes; cannot exclude old septal infarct. PVC. Assessment and Plan (1) Chest pain: Qualifiers: Chest pain type: unspecified Qualified Code(s): R07.9 - Chest pain, unspecified Status: Acute (2) CAD (coronary artery disease): Qualifiers: Coronary Disease-Associated Artery/Lesion type: [place] artery [place] vs. transplanted heart: [place] heart Associated angina: without angina Qualified Code(s): I25.10 - Atherosclerotic heart disease of [place] coronary artery without angina pectoris Status: Acute (3) Atrial fibrillation: Status: Acute (4) Aortic stenosis: Qualifiers: Cardiac valve disease etiology: nonrheumatic Qualified Code(s): I35.0 - Nonrheumatic aortic (valve) stenosis Status: Acute (5) CKD (chronic kidney disease): Status: Acute Plan High sensitivity troponin is within normal range and this is in spite of elevated troponin. This strongly points to not being ACS. Last echocardiogram from 2023-LVEF 51%. Suspected paradoxical low-flow, low gradient moderate aortic stenosis. Chest CT scan this admission shows chronic left upper lobe scarring and mild atelectasis of lung bases. Myocardial perfusion imaging study from 2022 reported have ischemia in the circumflex/RCA distribution. In this patient with numerous comorbidities and poor mobility, difficult to pinpoint the etiology for chest pain. So far, there was no obvious evidence of acute coronary syndrome/NSTEMI. We will start with an echocardiogram for cardiac function as well as assessment of aortic stenosis. Otherwise, may continue her usual home regimen including antiplatelet as well as blood pressure meds others. She is a poor candidate for invasive cardiac catheterization on account of many comorbidities, frailty as well as chronic kidney disease which will increase the risk of contrast induced nephropathy. We will follow up with you. Procedures Date of Service Date of Service: 08/01/25
--- NOTE | 2025-08-01 10:15 | PHA.MEDREC ---
Pharmacy Consult ? Medication Reconciliation Pharmacy has completed the medication reconciliation. Spoke with pt and she was a poor historian with her medications (Pt didnt even know she was taking Warfarin when I asked) and said to call her daughter Sandra ([phone]); I called and spoke with Sandra and she confirmed the pt medications. Pt daughter states the pt takes 25 units of Lantus at bedtime, she uses her Humalog per a sliding scale and only tests BID, pt just started a Sulfamethoxazole antibiotic on Thursday and her last dose should of been today and pt taking Warfarin 2mg QD and was suppose to get her INR levels re-tested today but pt came here.
--- NOTE | 2025-08-01 10:40 | PC.NURSE ---
Patient daughter Danielle called wanting an update. Patient gave permission to speak with Danielle Santos aware of prognosis and plan of care
--- NOTE | 2025-08-01 10:50 | PM.CNNEP ---
History of Present Illness Reason for Consult Consult date: 08/01/25 Chief Complaint Chief complaint: chest pain History of Present Illness Narrative: 84 y/o female with a medical history of DM, peripheral neuropathy, PVD with stents to reight leg, CVA/TIA, afib on coumadin, HTN, CAD, glaucoma, syprapubic catheter 2/2 bladder spasms/neurogenic bladder, hypothyroidism, HFrEF, moderate aortic stenosis, HLD, obesity. Presented 07/31 with acute chest pain/pressure associated with palpitations, shortness of breath. Troponins negative, ECG without evidence of ischemia. BNP>5000, CXR wtihout pleural effusion/pulm edema or PNA. Though chest CT with mild pulmonary vascular congestion. Nephrology consulted for DOROTHY on CKD. creatinine baseline 1.8-2.7 over last several years. creatinine 07/31 was 2.35, and today 08/01 is 2.16. patient reports she is making urine reports ongoing shortness of breath at rest, though reports pain has resolved. Reports fatigue and weakness, otherwise no new symptoms or concerns. States her daughters have been encouraging her to increase her fluid intake, she estimates she drinks over 70 ounces of fluid daily. Shortness of breath has been gradual in onset. Review of Systems Review of Systems Yes all other systems are reviewed and are negative [facility] Past Medical History Medical History (Updated 08/01/25 @ 11:00 by Lisa Rice, ANITA, LABOR CONCILIATOR-BC) CKD (chronic kidney disease) Suprapubic catheter Atrial fibrillation Hydronephrosis determined by ultrasound Permanent atrial fibrillation DOROTHY (acute kidney injury) Atrial fibrillation Neuropathy Neurogenic bladder CVA (cerebral vascular accident) Shingles Elevated cholesterol Myocardial infarction MRSA infection Hip pain Leg wound, left Varicose vein of leg Osteoarthritis of right hip Current use of anticoagulant therapy Recurrent UTI PAF (paroxysmal atrial fibrillation) Congestive heart failure Urinary incontinence Hypothyroidism Diabetes Hypertension CAD (coronary artery disease) Hypotonic neurogenic bladder Family History Family History Father Hx of angina pectoris Myocardial infarction Mother Ovarian cancer Stomach cancer Maternal Grandfather Hardening of the arteries of the heart Other Neurogenic bladder Surgical History Surgical History History of left knee replacement History of right knee joint replacement H/O heart artery stent H/O nasal polypectomy History of tubal ligation History of tonsillectomy and adenoidectomy Hx of cholecystectomy Social History Social History Household Members: Family Household Members Other:: daughter Housing: House Are you a primary healthcare specialist to a significant other at home: No Do you presently have visiting nurse or other home services: Yes (meals on wheels 5 days) Alcohol intake: never Comment: [facility] Patient Tobacco Use Status: Never used Tobacco Smoked in Last 30 Days: No Second Hand Smoke Exposure: No Use of substances other than those prescribed or required for medical reasons: No Advance Directives: Yes Advance Directives on File: Yes Advance Directives Date on File: 08/27/22 Do you have a plan to hurt others: No Plan Patient : No service: No Current occupational status: retired Travel History Ebola Risk: Travel/Contact With Anyone From Affected Area/s: No Has Patient Experienced Ebola Symptoms: No Meds Allergies Allergy/AdvReac Type Severity Reaction Status Date / Time No Known Allergies Allergy Verified 07/31/25 20:15 Active Medications: Current Medications Acetaminophen (Acetaminophen 325 Mg Tablet) 650 mg PO Q6H PRN PRN Reason: Pain, Mild 1-3,fever,headache Albuterol/Ipratropium (Albuterol/Iprat 2.5/0.5mg 3 Ml Ampul.Neb) 3 ml INHALE Q4H PRN PRN Reason: Shortness of Breath/Wheezing Calcium Carbonate (Calcium Carbonate 750 Mg Tab.Chew) 750 mg PO Q4H PRN PRN Reason: Heartburn Magnesium Hydroxide (Milk Of Magnesia 30 Ml Oral.Susp) 30 ml PO DAILY PRN PRN Reason: Constipation Melatonin (Melatonin 3 Mg Tablet) 6 mg PO BEDTIME PRN PRN Reason: Insomnia Ondansetron HCl (Ondansetron Hcl 4 Mg/2 Ml Vial) 4 mg IVPUSH Q8H PRN PRN Reason: Nausea and Vomiting Polyethylene Glycol (Polyethylene Glycol 3350 17 Gm Powd.Pack) 17 gm PO DAILY PRN PRN Reason: Constipation Senna (Sennosides 8.6 Mg Tablet) 17.2 mg PO BEDTIME SUN Sodium Chloride (0.9 % Sodium Chloride Flush 3 Ml Syringe) 3 ml IVFLUSH QSHIFT SUN Last Admin: 08/01/25 09:04 Dose: 3 ml Home Medications ?Medication ?Instructions ?Recorded ?Confirmed ?Last Taken ?Type levothyroxine 25 mcg tablet 25 mcg PO DAILY@0600 09/05/20 08/01/25 07/31/25 History pen needle, diabetic 32 gauge x #50 ea 12/31/21 07/18/25 06/16/24 History 5/32 (BD Cathy 2nd Gen Pen Needle) multivitamin (One Daily 1 tab PO DAILY 09/15/22 08/01/25 07/31/25 History Multivitamin tablet) lancets 28 gauge (FreeStyle #100 ea 09/29/22 07/18/25 06/16/24 History Lancets) vitamins A,C,G-qxgb-pypcgp 2,148 1 tab PO BIDWM 05/09/23 08/01/25 07/31/25 History mcg-113 mg-45 mg-17.4 mg tablet (PreserVision AREDS) amlodipine 5 mg tablet 5 mg PO DAILY 11/13/23 08/01/25 07/31/25 History furosemide 20 mg tablet 10 mg PO BID 06/17/24 08/01/25 07/31/25 History clopidogrel 75 mg tablet 75 mg PO DAILY 08/01/24 08/01/25 07/31/25 History latanoprost 0.005 % eye drops 1 drp ophthalmic (eye) BEDTIME 09/19/24 08/01/25 07/31/25 History insulin lispro 100 unit/mL See Protocol subcut BID 02/09/25 08/01/25 07/31/25 History subcutaneous pen (Humalog KwikPen (U-100) Insulin) melatonin 10 mg tablet 10 mg PO BEDTIME 04/09/25 08/01/25 07/30/25 History warfarin 1 mg tablet 2 mg PO DAILY@1800 04/27/25 08/01/25 07/30/25 History insulin glargine 100 unit/mL 25 unit subcut BEDTIME 08/01/25 08/01/25 07/30/25 History subcutaneous solution (Lantus U-100 Insulin) Physical Exam Vital Signs: Last Vital Signs Temp 97.7 F 08/01/25 07:46 Pulse 86 08/01/25 07:50 Resp 19 08/01/25 07:46 BP 124/52 L 08/01/25 07:50 Pulse Ox 95 08/01/25 07:46 O2 Del Method Room Air 08/01/25 07:46 BMI result Body Mass Index 30.0 Const General: no acute distress, alert and awake Resp Effort & Inspection: normal respiratory effort, able to speak in complete sentences and labored Auscultation: clear to auscultation bilaterally Cardio Rate: regular rate Rhythm: regular rhythm Heart sounds: S1 normal heart sound present, S2 normal heart sound present and Murmur heart sound present GI Palpation (GI): Soft to palpation and nontender Skin Rashes: no rashes Extrem General: No edema Results Lab Results 08/01/25 06:55 08/01/25 06:55 Lab results: Chemistry 07/31/25 08/01/25 20:32 06:55 Sodium 141 143 Potassium 4.9 3.9 D Carbon Dioxide 24 25 BUN 44 H 43 H Creatinine 2.35 H 2.16 H Calcium 9.0 9.5 Hematology 07/31/25 08/01/25 20:32 06:55 WBC 7.5 7.6 Hgb 13.2 14.3 Plt Count 223 200 Urinalysis 08/01/25 06:56 Urine Color Yellow Urine Appearance Clear Urine pH 7.0 Ur Specific [place] 1.010 Urine Protein 30 (1+) H Urine Glucose (UA) 500 H Urine Ketones Negative Urine Blood Trace H Urine Nitrite Negative Ur Leukocyte Esterase Moderate (2+) H Urine RBC 3-5 H Urine WBC >50 H Ur Squamous Epith Cells 0-2 Hyaline Casts 0-2 Urine Studies 08/01/25 06:56 Urine Osmolality 343 L Urine Creatinine 14.46 Assessment and Plan (1) CKD (chronic kidney disease): Qualifiers: Chronic kidney disease stage: stage 4 (GFR 15-29) Qualified Code(s): N18.4 - Chronic kidney disease, stage 4 (severe) Status: Acute Plan Patient with baseline CKD, renal function appears to be around baseline. Patient appears slightly fluid overloaded and is short of breath, recommend starting lasix 40mg PO daily. she should reduce her oral fluid intake to ~30-40 ounces daily. She states she does not have a professor of art history. Will check urine protein/creatinine ratio. She should follow up with nephrology as outpatient to establish care, will arrange upon discharge. Discussed with Dr Mejia. Procedures Date of Service Date of Service: 08/01/25
--- NOTE | 2025-08-01 11:11 | PHA.MEDREC ---
Addendum entered by Ilana Castellon RPh 08/01/25 11:30: MED REC REVIEWED BY [facility] Original Note: Pharmacy Consult ? Medication Reconciliation Pharmacy has completed the medication reconciliation. Spoke with pt and she was a poor historian with her medications (Pt didn't even know she was taking Warfarin when I asked) and said to call her daughter Sandra ([phone]); I called and spoke with Sandra and she confirmed the pt medications. Pt daughter states the pt takes 25 units of Lantus at bedtime, she uses her Humalog per a sliding scale and only tests BID, pt takes a Sulfamethoxazole antibiotic 1 QD for 3 days when pt get a catheter change once a month; pt and daughter confirmed pt had her catheter changed yesterday (07/31) and took one dose Thursday, one dose yesterday and she was suppose to take the last one today but pt in our facility and pt taking Warfarin 2mg QD and was suppose to get her INR levels re-tested today but pt came here.
--- NOTE | 2025-08-01 13:44 | MHC.CM.PN ---
PT REPORTS SHE LIVES AT HOME WITH HER DAUGHTER WHO ASSISTS WITH CARE PRN SHE USES A WALKER AT BASELINE, BUT ALSO HAS WHEEL CHAIRS FOR GOING OUT SHE HAS MEALS ON WHEELS AND [facility] H[facility] AND [facility] ON FILE PCP: [facility] NOTICE DELIVERED DCP: [facility] FAM[facility] TO TRANSPORT
--- NOTE | 2025-08-01 14:22 | PM.EVENT ---
Event Note Date of Service: 08/01/25 Event Note: Seen and examined, labs, meds, imaging reviewed. Still has some chest pain but no evidence of ACS A/P per H and P from this morning Time Spent With Patient Time: Total time managing care of this patient today ____ minutes.
[2025-08-01] MEDS: Metoprolol Succinate ER 100 MG TAB.ER.24H 200 MG PO (14:49)
[2025-08-01 15:40] LABS: Protein/Creatinine Ratio, Ur 3.32 (<0.2); Total Protein Urine Random 47 mg/dL (<12)
[2025-08-01 17:33] LABS: Glucose, Whole Blood 130 mg/dL (60-115)
--- NOTE | 2025-08-01 17:49 | HO.SKINPHOTO ---
Location: Right heel Category: Stage:stage 1 Location: right lower leg
[2025-08-01 21:32] LABS: Glucose, Whole Blood 198 mg/dL (60-115)
[2025-08-01] MEDS: Insulin Glargine,Hum.rec.anlog 100 UNIT/ML 10 ML VIAL 25 UNIT SUBCUT (22:13)
[2025-08-02] VITALS (11 sets, daily range): BP systolic 110–147; BP diastolic 56–98; PULSE 65–100; RESP 17–20; TEMP 36.1–36.9; O2SAT 92–98
--- NOTE | 2025-08-02 | ECG_ITS ---
Test Reason : chest pain Blood Pressure : */* mmHG Vent. Rate : 79 BPM Atrial Rate : * BPM P-R Int : * ms QRS Dur : 86 ms QT Int : 426 ms P-R-T Axes : * 77 100 degrees QTcB Int : 488 ms Atrial fibrillation Anterior infarct (cited on or before 31-Jul-2025) Abnormal ECG When compared with ECG of 31-Jul-2025 20:22, Questionable change in initial forces of Anteroseptal leads Nonspecific T wave abnormality, worse in Lateral leads Referred By: Libby Davenport Electronically Signed By: SAMM WALKER
[2025-08-02] MEDS: 0.9 % Sodium Chloride Flush 3 ML SYRINGE IVFLUSH ×2 (00:05→21:49)
[2025-08-02 07:59] LABS: Glucose, Whole Blood 84 mg/dL (60-115)
[2025-08-02] MEDS: Flu Vacc TS2025-26(6mo up)/PF 0.5 ML SYRINGE IM (08:10)
[2025-08-02] MEDS: Metoprolol Succinate ER 100 MG TAB.ER.24H 200 MG PO (08:12)
[2025-08-02] MEDS: Lidocaine 4 % Patch ADH..PATCH 1 PATCH TRANSDERMA (08:21)
[2025-08-02 09:33] LABS: Troponin-I High Sensitivity 9.0 ng/L (<3.5-17.0)
--- NOTE | 2025-08-02 09:56 | PM.PNCARD ---
Subjective Subjective Date of Service: 08/02/25 Interval history: She looks frail and weak. Had had some chest pressure but then resolved. Uncertain etiology. Review of Systems Review of Systems Yes all other systems are reviewed and are negative Constitutional: Reports as per HPI and Reports no additional constitutional complaints Eyes: Reports as per HPI and Denies no additional eye complaints Denies system reviewed and no additional complaints, except as documented and Reports as per HPI Cardiovascular: Reports as per HPI, Reports no additional cardiovascular complaints, Denies acrocyanosis, Denies cool extremities, Denies chest pain, Denies leg edema, Denies lightheadedness, Denies palpitations and Denies dyspnea Respiratory: Reports as per HPI, Denies no additional respiratory complaints and Denies dyspnea Gastrointestinal: Reports as per HPI and Denies no additional gastrointestinal complaints Genitourinary: Reports as per HPI Musculoskeletal: Reports no additional musculoskeletal complaints and Reports as per HPI Skin/Breast: Reports system reviewed and no additional complaints, except as docu Reports system reviewed and no additional complaints, except as documented and Reports as per HPI Psychiatric: Reports no additional psychiatric complaints and Reports as per HPI Endocrine: Reports no additional endocrine complaints, Reports as per HPI and Denies palpitations Hematologic/Lymphatic: Reports no additional hematologic/lymphatic complaints and Reports as per HPI Allergic/Immunologic: Reports no additional allergic/immunologic complaints and Reports as per HPI Physical Exam Vital Signs: Last Vital Signs Temp 97.3 F 08/02/25 08:00 Pulse 100 08/02/25 08:10 Resp 18 08/02/25 08:00 BP 147/98 H 08/02/25 08:10 Pulse Ox 96 08/02/25 07:16 O2 Del Method Room Air 08/02/25 08:00 BMI result Body Mass Index 31.4 Const General: comfortable and no acute distress Orientation/consciousness: patient oriented x3 HEENT Other: Unremarkable Head: Yes normal to inspection Neck Neck: Yes normal visual inspection Chest Chest palpation & inspection: normal inspection of the chest Resp Auscultation: diminished lung sounds Cardio Palpation: normal PMI Heart sounds: S1 normal heart sound present, S2 normal heart sound present, no gallops, Murmur heart sound present systolic III/ and no rubs GI Palpation (GI): Soft to palpation Back/Spine/Pelvis Other: unremarkable Skin General skin exam: no rashes or lesions noted Neuro General: patient oriented x3 Extrem General: Yes normal to inspection Psych Mental Status: mental status grossly normal Objective Labs and Meds 08/01/25 06:55 08/01/25 06:55 Lab results: Laboratory Results - last 24 hr 08/01/25 08/01/25 08/01/25 14:54 17:30 21:28 Hold Purple Top POC Glucose 130 H 198 H Troponin I High Sens U Random Total Protein 47 H Urine Creatinine 14.14 Protein/Creatinin Ratio 3.32 H 08/02/25 08/02/25 08/02/25 07:52 08:44 08:45 Hold Purple Top SEE NOTE POC Glucose 84 Troponin I High Sens 9.0 U Random Total Protein Urine Creatinine Protein/Creatinin Ratio Progress Note: A&P Assessment and plan (1) Chest pain: Status: Acute (2) CAD (coronary artery disease): Status: Acute (3) Atrial fibrillation: Status: Acute (4) Aortic stenosis: Status: Acute (5) CKD (chronic kidney disease): Status: Acute Plan High sensitivity troponin is within normal range and this is in spite of elevated creatinine. This strongly points to not being ACS. Echocardiogram yesterday with LVEF of 51%. Paradoxical, low-flow, low gradient moderate aortic stenosis. Chest CT scan this admission shows chronic left upper lobe scarring and mild atelectasis of lung bases. Myocardial perfusion imaging study from 2022 reported have ischemia in the circumflex/RCA distribution. In this patient with numerous comorbidities and poor mobility, difficult to pinpoint the etiology for chest pain. So far, there was no obvious evidence of acute coronary syndrome/NSTEMI. Discussed the clinical presentation with and on account of comorbidities and lack of any objective data to support ACS, he is advising conservative care only. I did speak to patient about diagnostic catheterization but she stated that she would rather not want anything done. Dr. Davenport will discuss with family see what they want. Time Spent With Patient Time: Total time managing care of this patient today ____ minutes. Progress Note: Quality Stroke Does the patient have a stroke diagnosis?: No Reason for No Anti-thrombotic by Day Two: N/A - Med Ordered Procedures Date of Service Date of Service: 08/02/25
[2025-08-02 10:37] LABS: INTERNATIONAL NORM RATIO 1.6 (0.9-1.1); Prothrombin Time 18.5 SEC (10.9-12.4)
[2025-08-02] MEDS: Milk of Magnesia 30 ML ORAL.SUSP PO (10:44)
--- NOTE | 2025-08-02 11:25 | HO.WOUND ---
Wound Consult: Initial 84 yr old [place] [facility]- See progress notes and H&P for detailed history. Wound consult placed for buttocks/right heel. Patient agreeable to assessment and photo documentation. buttocks at rest Buttocks spread Etiology: MASD Wound Bed: skin is intact blanching with chronic pink/pale purple skin, there is moist skin in base of gluteal fold that wiped away with cleansing - intact skin. Drainage / Odor: none Stephania wound: ? No Induration, Fluctuance or Warmth noted Pain: none Goals of Treatment: ? recommend offloading and barrier cream, foam dressing was trapping moisture in deep fold right heel Patient reports history of pressure injury to right heel which she sought treatment with outpatient wound care. skin is intact, red and blanching. there is scar tissue therefore wounding would have been full thickness, skin does not regain full tensile strength and is at high risk for re-injry. recommend offloading and foam dressings. Recommendations: 1. Turn and Reposition every 2 hours and as needed for patient comfort. Use pillows or wedges to support off loading positions. 2. Off Load all bony prominences with use of pillows and heel boots if needed. Apply Preventative foams where needed. 3. Monitor for incontinence and moisture control, use barrier creams when needed for prevention and treatment. 4. Provide adequate and supplemental nutrition. 5. Order or Continue low air loss mattress. 6. When applicable maintain blood glucose levels per Providers order. Coccyx/buttocks: Off Load Pressure with Q2 hr turns and use of pillows - Cleanse with PH balance spray or wipes, pat dry. ?Apply thin layer of barrier cream to affected area. Apply twice daily and Reapply thin layer PRN after each episode of incontinence. Bilateral Heels - Elevate heels off of bed surface with pillows. Float heels off of pillows. Apply skin prep allow to dry. Apply heel foam dressings, peel back and assess Q shift and change every 5-7 days and PRN. Re-consult wound care Nurse for wound deterioration or wound changes.
--- NOTE | 2025-08-02 11:31 | P.PNNP_ITS ---
Subjective Subjective Date of Service: 08/02/25 Interval history: Here with chest pain and shortness of breath- per hospital medicine ACS ruled out. Following for CKD. 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 Urine protein/creatinine ratio checked yesterday, is over 3 grams. patient states she has some improvement in her symptoms since yesterday. Physical Exam 2 Vital Signs: Vital Signs: Last Vital Signs Temp 97.3 F 08/02/25 08:00 Pulse 100 08/02/25 08:10 Resp 18 08/02/25 08:00 BP 147/98 H 08/02/25 08:10 Pulse Ox 96 08/02/25 07:16 O2 Del Method Room Air 08/02/25 08:00 BMI result Body Mass Index 31.4 Const: General: no acute distress, alert and awake Resp: Effort & Inspection: normal respiratory effort, able to speak in complete sentences and labored Auscultation: clear to auscultation bilaterally Cardio: Rate: regular rate Rhythm: regular rhythm Heart sounds: S1 normal heart sound present, S2 normal heart sound present and Murmur heart sound present GI: Palpation (GI): Soft to palpation and nontender Skin: Rashes: no rashes Extrem: General: No edema Objective Data Labs 08/01/25 06:55 08/01/25 06:55 Labs: Laboratory Results - last 24 hr 08/01/25 08/01/25 08/01/25 14:54 17:30 21:28 Hold Purple Top PT INR POC Glucose 130 H 198 H Troponin I High Sens U Random Total Protein 47 H Urine Creatinine 14.14 Protein/Creatinin Ratio 3.32 H 08/02/25 08/02/25 08/02/25 07:52 08:44 08:45 Hold Purple Top SEE NOTE PT INR POC Glucose 84 Troponin I High Sens 9.0 U Random Total Protein Urine Creatinine Protein/Creatinin Ratio 08/02/25 09:56 Hold Purple Top PT 18.5 H D INR 1.6 H POC Glucose Troponin I High Sens U Random Total Protein Urine Creatinine Protein/Creatinin Ratio Procedures Date of Service Date of Service: 08/02/25 Assessment & Plan Assessment and plan (1) CKD (chronic kidney disease): Status: Acute Plan Patient with baseline CKD, renal function appears to be around baseline. Patient appears slightly fluid overloaded and is short of breath, recommend starting lasix 40mg PO daily. she should reduce her oral fluid intake to ~30-40 ounces daily. She states she does not have a resistance machine welder setter, and has significant proteinuria and longstanding CKD. She should follow up with nephrology as outpatient to establish care, will arrange upon discharge- patient is agreeable to plan. Will sign off, happy to follow up if any new changes or concerns arise. Discussed with Dr Mejia. Time Spent With Patient Time: Total time managing care of this patient today ____ minutes. Progress Note: Quality Stroke Does the patient have a stroke diagnosis?: No Reason for No Anti-thrombotic by Day Two: N/A - Med Ordered
[2025-08-02 11:34] LABS: Glucose, Whole Blood 128 mg/dL (60-115)
[2025-08-02 15:50] LABS: Glucose, Whole Blood 156 mg/dL (60-115)
--- NOTE | 2025-08-02 17:31 | P.PNIM_ITS ---
Subjective Subjective Date of Service: 08/03/25 Interval History: chest pain Review of Systems chest pain seems improving Review of Systems: Yes all other systems are reviewed and are negative Physical Exam 2 Exam: Exam: Appearance: Alert.? Oriented X3. cvs: rrr, [id number] . res: clear to auscultation ,no rhonchii or wheezing abd: no rebound or guarding ,nt, bs present. ext pulses present , no cyanosis. neuro: axo3 , nonfocal. Vital Signs: Vital Signs: Last Vital Signs Temp 98.5 F 08/02/25 16:00 Pulse 65 08/02/25 16:00 Resp 18 08/02/25 16:00 BP 130/63 08/02/25 16:00 Pulse Ox 95 08/02/25 16:00 O2 Del Method Room Air 08/02/25 16:00 BMI result Body Mass Index 31.4 Objective Data Active Medications Acetaminophen (Acetaminophen 325 Mg Tablet) 650 mg PO Q6H PRN PRN Reason: Pain, Mild 1-3,fever,headache Albuterol/Ipratropium (Albuterol/Iprat 2.5/0.5mg 3 Ml Ampul.Neb) 3 ml INHALE Q4H PRN PRN Reason: Shortness of Breath/Wheezing Amlodipine Besylate (Amlodipine Besylate 5 Mg Tablet) 5 mg PO DAILY COUNTS INCLUDE 234 BEDS AT THE [facility]; Protocol Last Admin: 08/02/25 08:11 Dose: Not Given Documented By: CHRISTOPHER Non-Admin Reason: hold per Ascorbic Acid (Ascorbic Acid 500 Mg Tablet) 1,000 mg PO DAILY COUNTS INCLUDE 234 BEDS AT THE [facility] Last Admin: 08/02/25 08:12 Dose: 1,000 mg Documented By: CHRISTOPHER Atorvastatin Calcium (Atorvastatin Calcium 10 Mg Tablet) 10 mg PO BEDTIME COUNTS INCLUDE 234 BEDS AT THE [facility] Last Admin: 08/01/25 22:15 Dose: 10 mg Documented By: BOBBY Calcium Carbonate (Calcium Carbonate 750 Mg Tab.Chew) 750 mg PO Q4H PRN PRN Reason: Heartburn Clopidogrel Bisulfate (Clopidogrel Bisulfate 75 Mg Tablet) 75 mg PO DAILY COUNTS INCLUDE 234 BEDS AT THE [facility] Last Admin: 08/02/25 08:12 Dose: 75 mg Documented By: CHRISTOPHER Dextrose (Dextrose 50 % 25 Gm/50 Ml Syringe) 25 gm IVPUSH Q15M PRN; Protocol PRN Reason: per Hypoglycemia Standing Ord. Empagliflozin (Empagliflozin 10 Mg Tablet) 10 mg PO DAILY COUNTS INCLUDE 234 BEDS AT THE [facility] Last Admin: 08/02/25 08:13 Dose: 10 mg Documented By: CHRISTOPHER Furosemide (Furosemide 20 Mg Tablet) 10 mg PO BIDWM COUNTS INCLUDE 234 BEDS AT THE [facility]; Protocol Last Admin: 08/02/25 17:29 Dose: 10 mg Documented By: HIPOLITO Glucose (Glucose Gel 15 Gm Gel..Gram.) 15 gm PO Q15M PRN; Protocol PRN Reason: per Hypoglycemia Standing Ord. Insulin Glargine (Insulin Glargine,Hum.Rec.Anlog 100 Unit/Ml 10 Ml Vial) 25 unit SUBCUT BEDTIME COUNTS INCLUDE 234 BEDS AT THE [facility] Last Admin: 08/01/25 22:13 Dose: 25 unit Documented By: BOBBY Insulin Human Lispro (Insulin Lispro 100 Unit/Ml 3 Ml Vial) 0 unit SUBCUT QIDACHS COUNTS INCLUDE 234 BEDS AT THE [facility]; Protocol Last Admin: 08/02/25 17:23 Dose: 2 unit Documented By: HIPOLITO Latanoprost (Latanoprost 0.005 % Ophth [place] 2.5 Ml Drops) 1 drop EYE-BOTH BEDTIME COUNTS INCLUDE 234 BEDS AT THE [facility] Last Admin: 08/01/25 22:59 Dose: Not Given Documented By: BOBBY Non-Admin Reason: Med Not Available Levothyroxine Sodium (Levothyroxine Sodium 25 Mcg Tablet) 25 mcg PO DAILY@0600 COUNTS INCLUDE 234 BEDS AT THE [facility] Last Admin: 08/02/25 05:38 Dose: 25 mcg Documented By: BOBBY Lidocaine (Lidocaine 4 % Patch Adh..Patch) 1 patch TRANSDERMA DAILY COUNTS INCLUDE 234 BEDS AT THE [facility]; Protocol Last Admin: 08/02/25 08:21 Dose: 1 patch Documented By: CHRISTOPHER Magnesium Hydroxide (Milk Of Magnesia 30 Ml Oral.Susp) 30 ml PO DAILY PRN PRN Reason: Constipation Last Admin: 08/02/25 10:44 Dose: 30 ml Documented By: CHRISTOPHER Melatonin (Melatonin 3 Mg Tablet) 6 mg PO BEDTIME PRN PRN Reason: Insomnia Melatonin (Melatonin 3 Mg Tablet) 9 mg PO BEDTIME COUNTS INCLUDE 234 BEDS AT THE [facility] Last Admin: 08/01/25 22:17 Dose: 9 mg Documented By: BOBBY Metoprolol Succinate (Metoprolol Succinate Er 100 Mg Tab.Er.24h) 200 mg PO DAILY COUNTS INCLUDE 234 BEDS AT THE [facility]; Protocol Last Admin: 08/02/25 08:12 Dose: 200 mg Documented By: CHRISTOPHER Mirabegron (Mirabegron 25 Mg Tab.Er.24h) 25 mg PO DAILY COUNTS INCLUDE 234 BEDS AT THE [facility] Last Admin: 08/02/25 08:12 Dose: 25 mg Documented By: CHRISTOPHER Multivitamins/Vitamin C (Multivitamin Tablet) 1 tab PO BIDWM COUNTS INCLUDE 234 BEDS AT THE [facility] Last Admin: 08/02/25 17:30 Dose: 1 tab Documented By: HIPOLITO Ondansetron HCl (Ondansetron Hcl 4 Mg/2 Ml Vial) 4 mg IVPUSH Q8H PRN PRN Reason: Nausea and Vomiting Polyethylene Glycol (Polyethylene Glycol 3350 17 Gm Powd.Pack) 17 gm PO DAILY PRN PRN Reason: Constipation Senna (Sennosides 8.6 Mg Tablet) 17.2 mg PO BEDTIME COUNTS INCLUDE 234 BEDS AT THE [facility] Last Admin: 08/01/25 22:17 Dose: 17.2 mg Documented By: BOBBY Sodium Chloride (0.9 % Sodium Chloride Flush 3 Ml Syringe) 3 ml IVFLUSH QSHIFT COUNTS INCLUDE 234 BEDS AT THE [facility] Last Admin: 08/02/25 13:31 Dose: Not Given Documented By: CHRISTOPHER Non-Admin Reason: Previously Administered Valsartan (Valsartan 40 Mg Tablet) 20 mg PO BID COUNTS INCLUDE 234 BEDS AT THE [facility]; Protocol Last Admin: 08/02/25 08:12 Dose: Not Given Documented By: CHRISTOPHER Non-Admin Reason: hold per Warfarin Sodium (Warfarin Sodium 1 Mg Tablet) 2 mg PO DAILY@1800 COUNTS INCLUDE 234 BEDS AT THE [facility] Last Admin: 08/02/25 17:29 Dose: 2 mg Documented By: HIPOLITO Labs 08/01/25 06:55 08/01/25 06:55 Labs: Laboratory Results - last 24 hr 08/01/25 08/01/25 08/02/25 17:30 21:28 07:52 Hold Purple Top PT INR POC Glucose 130 H 198 H 84 Troponin I High Sens 08/02/25 08/02/25 08/02/25 08:44 08:45 09:56 Hold Purple Top SEE NOTE PT 18.5 H D INR 1.6 H POC Glucose Troponin I High Sens 9.0 08/02/25 08/02/25 11:31 15:31 Hold Purple Top PT INR POC Glucose 128 H 156 H Troponin I High Sens Assessment and Plan (1) Atrial fibrillation: Status: Acute Plan 84-year-old female with past medical history IDDM, peripheral neuropathy, AFIB on coumadin, hypertension, CAD, glaucoma, presence of suprapubic catheter due to bladder spasms/ neurogenic bladder, hypothyroidism, HFrEF, Modrate Aortic Stenosis (last echo 2023), HLD, UTI, DOROTHY, hx of stage II pressure ulcer associated with past R fibula fx (08/2023), obesity, MRSA infection was brought in by ambulance after experiencing acute chest pain/pressure which was nonradiating/ mid sternal and associated with palpitations. Patient also states that she has been having more difficulty with catching her breath especially at rest. Patient also states when she lies down to rest she has bouts of dizziness that resolved within 1-2 minutes. Patient being admitted for cardiac workup to include CHF, moderate aortic stenosis along with DOROTHY on chronic kidney disease. Chest pain with no evidence to support ACS Troponins negative x3 EKG negative for STEMI Cardiology consulted Telemetry continuous Lipid panel pending Continue statin Discussed with the patient and her daughter healthcare proxy Ms. Flores in detail length-currently patient does want to conservative care, cardiology also following-continue current care. Moderate aortic stenosis Echo ordered Using diuretics conservatively Orthostatics ordered QS X3 HFrEF 45-50% with elevated BNP (5288) Echo ordered as above Low-salt cardiac diet Daily weights Measure I's and o's FLuid Allowance 1500 mls daily CHF education should be initiated this admission DOROTHY on CKD Nephrology consulted Urine studies ordered Patient has suprapubic catheter with Healy placement that was changed Thursday with Dr. Sharma UA pending Patient would normally receive Bactrim the day after catheter change but this is on hold due to renal function. Pt did receive bactrim this past Thursday and Thursday as part of her regimen with Dr. Sharma and Suprapubic catheter change. Hold Jardiance Atrial fibrillation on Coumadin/ PVCs Daily INR Dose Coumadin in the a.m. Telemetry notes AFib rate controlled with PVCs MG pending , K stable IDDM SSI Diabetic diet Holding Jardiance due to renal function Continue Lantus once med rec completed Neuropathy/PVD/ history of stents to the right leg Continue Plavix Continue Statin Hyperlipidemia Continue statin LFT stable Hypothyroidism TSH with reflex pending Continue current dose of levothyroxine and adjust accordingly if needed Progressive decline in function, hx of falls PT eval pending Walker used for ambulation DVT prophylaxis: Coumadin dispo: chest pain-conservative management and waiting for pt eval-might need rehab. Quality Stroke Does the patient have a stroke diagnosis?: No Reason for No Anti-thrombotic by Day Two: N/A - Med Ordered VTE Prior VTE?: No VTE Risk Level:: Medical - moderate - high VTE Device Contraindication: N/A - Device Ordered VTE Drug Contraindication: N/A - Med Ordered
[2025-08-02 20:48] LABS: Glucose, Whole Blood 136 mg/dL (60-115)
[2025-08-02] MEDS: Insulin Glargine,Hum.rec.anlog 100 UNIT/ML 10 ML VIAL 25 UNIT SUBCUT (21:48)
[2025-08-03] VITALS (7 sets, daily range): BP systolic 121–151; BP diastolic 58–83; PULSE 78–91; RESP 16–20; TEMP 36.3–36.7; O2SAT 93–96
[2025-08-03 06:43] LABS: INTERNATIONAL NORM RATIO 1.5 (0.9-1.1); Prothrombin Time 17.1 SEC (10.9-12.4)
[2025-08-03 07:49] LABS: Glucose, Whole Blood 65 mg/dL (60-115)
[2025-08-03] MEDS: Metoprolol Succinate ER 100 MG TAB.ER.24H 200 MG PO (07:53)
[2025-08-03] MEDS: 0.9 % Sodium Chloride Flush 3 ML SYRINGE IVFLUSH (07:54)
[2025-08-03] MEDS: Lidocaine 4 % Patch ADH..PATCH 1 PATCH TRANSDERMA (07:54)
[2025-08-03 08:53] LABS: Glucose, Whole Blood 112 mg/dL (60-115)
--- NOTE | 2025-08-03 11:03 | MHC.CM.PN ---
CM met with Patient at bedside to discuss dc planning. Patient states that PT is recommending STR, but she wants to go home(her Daughter lives with her) and resume the home services she had. MD is aware.
[2025-08-03 11:12] LABS: Glucose, Whole Blood 105 mg/dL (60-115)
--- NOTE | 2025-08-03 11:33 | W.MHC.F2F ---
Service Date Service Date: 08/03/25 Encounter Date of encounter: 08/03/25 Encounter: ckd , afib Reasons for Services Signs and symptoms assessed: Monitor any new chest pain or shortness of breath or any new symptoms. Reason for snf: CV/CP assess and/or care, medication management, medication treatment and teach disease management Reason for physical therapy: home safety and mobility, therapeutic exercises, restore joint function, gait/transfer training, assess need for DME, ADL training, energy conservation and other MD Overseeing Care: Nano Delaney Homebound: Leaving the home is medically contraindicated at this time without the asist of a device and/or another person due th the listed conditions above and below. Reason homebound: weakness related to hospital stay Homebound supporting statement: Patient is generalised weak post hospitlisation and need help with going to appointments and labs draws as well as PT. Certification: Based on the above findings, I certify that this patient is confined to the home and needs intermittent snf care, physical therapy and/or speech therapy, or continues to need occupational therapy. The patient is under my care, and I have initiated the establishment of the plan of care. The patient will be followed by a physician who will periodically review the plan of care. Time Spent With Patient Time: Total time managing care of this patient today ____ minutes.
--- NOTE | 2025-08-03 11:54 | MHC.CM.PN ---
Addendum entered by Pia Izquierdo 08/03/25 15:15: DC summary and face to face have been sent to [facility] via [employer] and faxed successfully to [facility] @ [phone]. Original Note: Patient has been medically cleared for dc to home today, with services. Patient is active with [employer], who has been made aware of today's dc.
--- NOTE | 2025-08-03 14:07 | P.DS_ITS ---
DS: Providers Provider Date of Service: 08/03/25 Date of admission: 08/01/25 03:27 Date of discharge: 08/03/25 Primary care physician: Nano Delaney MD Consults: 08/01/25 03:43 Consult to Cardiology Routine Consulting Provider: [facility] [place] [facility] Reason for consultation: chest pain, elevated BNP, hx of mod Has provider been notified: No 08/01/25 03:46 Consult to Nephrology Routine Consulting Provider: [facility] [place] [facility] Reason for consultation: CKD with possible DOROTHY 08/01/25 17:10 Consult to Wound Care Routine Reason for consultation: stage 1 right heel Attending physician on discharge: Libby Davenport Discharging clinician: Libby Davenport DS: Diagnosis Discharge Diagnosis (1) Atrial fibrillation: Status: Acute DS: Summary Hospital Course Hospital Course: HPI:84-year-old female with past medical history IDDM, peripheral neuropathy, PVD with stents to the right leg, CVA/TIA, AFIB on coumadin, hypertension, CAD, glaucoma, presence of suprapubic catheter due to bladder spasms/ neurogenic bladder, hypothyroidism, HFrEF, Modrate Aortic Stenosis (last echo 2023), HLD, UTI, DOROTHY, hx of stage II pressure ulcer associated with past R fibula fx (08/2023), obesity, MRSA infection was brought in by ambulance after experiencing acute chest pain/pressure which was nonradiating/ mid sternal and associated with palpitations. Patient also states that she has been having more difficulty with catching her breath especially at rest. Patient also states when she lies down to rest she has bouts of dizziness that resolved within 1-2 minutes.Patient describes this sensation as fluttering. Patient has known history of AFib on Coumadin. INR 2.1 today. Patient had received 324 mg of aspirin with EMS. Pt states the chest sensation has eased. Pt has been walker dependent with noted decrease in strength over the last 3 years. pt reports recent fall or slipping off chair of walker with no obvious injury or hit to the head. Last incident was weeks ago per pt. Workup in the ED notes troponins negative x3, no abnormal findings on telemetry or EKG. EKG negative for STEMI. CBC negative for leukocytosis or anemia. BNP elevated at 5000.Patient received 40 mg of IV Lasix. ED provider suspected fluid volume overload with known moderate aortic stenosis. Chest x-ray negative for any pleural effusion, pneumonia or pulmonary edema. CT chest pending. Patient is on Coumadin for AFib and there is low suspicion for PE. Patient currently on room air satting 94%. Patient's renal function similar to previous function but there is concern for DOROTHY and patient was recently treated for UTI. UA is pending. Patient also states that her suprapubic catheter was changed at Dr. Sharma's office yesterday and patient is due for 1 more dose of antibiotic as she takes the antibiotics the day before, the day of the catheter change and the day after. Bactrim is the usual medication but due to renal function will not be able to prescribe. Incidentally patient does have the [facility] coming in once a week to test her INR and perform clinical assessment. Patient's knowledge base of heart failure is very limited. Hospital course: chest pain -seen by cardiology:High sensitivity troponin is within normal range and this is in spite of elevated creatinine. This strongly points to not being ACs ,ef on echo 51%. Chest CT scan this admission shows chronic left upper lobe scarring and mild atelectasis of lung bases.Myocardial perfusion imaging study from 2022 reported have ischemia in the circumflex/RCA distribution. Seen by cardiology recommended conservative management for above.cardiology d/w patient:diagnostic catheterization but she stated that she would rather not want anything done.d/w family and daughter miss morales -she concur with above. Subtherapeutic INR: Warfarin adjusted to 3 mg p.o. daily, monitor PT INR. Moderate aortic stenosis,HFrEF 45-50% with elevated BNP. Echo noted-The left ventricular systolic function is mildly decreased. The calculated ejection fraction is 51% by biplane method. Overall, paradoxical low-flow, low gradient moderate aortic stenosis. seen by nephrology :lasix adjusted to 20 mg po bid. patient seems euvolemic. CHF education given-if gains weight 2 lb or more in a week-will need outpatient Lasix dosing assessment with PCP. Consider Follow-up with cardiology outpatient consider follow up with cardiology outpatient . Ua : Asymptomatic pyuria, no urinary complaints. Defer antibiotics . Patient has suprapubic catheter with Healy placement that was changed Thursday with Dr. Sharma normally receive Bactrim the day after catheter change but this is on hold due to renal function. Pt did receive bactrim this past Thursday and Thursday as part of her regimen with Dr. Sharma and Suprapubic catheter change. Generalized weak: Patient was seen by PT and recommended rehab but patient declined rehab, preferred go to home with services. Plan: Lasix adjusted 20 mg p.o. b.i.d., monitor BMP outpatient. Subtherapeutic INR-Warfarin adjusted 3 mg q.day monitor INR outpatient. CHF education given-if gains weight 2 lb or more in a week-will need outpatient Lasix dosing assessment with PCP. Consider Follow-up with cardiology outpatient Above management discussed with the patient and her daughter. They both understand and in agreement with the above plan. Total time spent 45 minute. All questions answered. Time Attestation Total time managing care of this patient today: 45 mintues. Discharge Coordination Time (in mins): 45 min Quality: Safe Use of Opioids Does Pt have an Active Cancer Diagnosis on the Problem List?: No Quality: Stroke Does the patient have a stroke diagnosis?: No Physical Exam Exam: Exam: Appearance: Alert.? Oriented X3. cvs: rrr, [id number] . res: clear to auscultation ,no rhonchii or wheezing abd: no rebound or guarding ,nt, bs present. ext pulses present , no cyanosis. neuro: axo3 , nonfocal. Vital Signs: Vital Signs: Last Vital Signs Temp 97.5 F 08/03/25 11:21 Pulse 90 08/03/25 11:46 Resp 16 08/03/25 11:21 BP 121/58 L 08/03/25 11:46 Pulse Ox 93 08/03/25 11:21 O2 Del Method Room Air 08/03/25 11:21 BMI result Body Mass Index 31.4 DS: Data Data Completed and Pending Completed studies during hospitalization [Text1]: Procedures Extirpation of Matter from Bladder, Via Natural or Artificial Opening Endoscopic (06/27/22) Fluoroscopy of Kidneys, Ureters and Bladder (06/27/22) Insertion of Infusion Device into Right Basilic Vein, Percutaneous Approach (06/17/24) Replacement of Right Hip Joint with Synthetic Substitute, Uncemented, Open Approach (07/07/23) Labs on day of discharge: Laboratory Results - last 24 hr 10/01/25 10/01/25 10/02/25 15:31 20:38 06:09 PT 17.1 H INR 1.5 H POC Glucose 156 H 136 H 08/03/25 08/03/25 08/03/25 07:42 08:49 11:04 PT INR POC Glucose 65 112 105 Discharge Plan Discharge Anticipated Discharge Date/Time: 08/03/25 11:09 Patient Disposition: Home Health Service Discharge Diagnosis: chest pain -resolved . Referrals: [facility] [Outside] - 1 Week Nano Delaney MD [Primary Care Provider, Internal Medicine] - 1 Week Discharge Medications: New warfarin [Jantoven] 3 mg Tablet 3 mg PO DAILY@1800 Qty: 30 0RF Continued atorvastatin 10 mg tablet 10 mg PO BEDTIME Qty: 90 3RF valsartan 40 mg tablet 20 mg PO BID Qty: 180 3RF metoprolol succinate 200 mg tablet extended release 24 hr 200 mg PO DAILY Qty: 90 3RF PreserVision AREDS 2,148 mcg-113 mg-45 mg-17.4mg Tablet 1 tab PO BIDWM Rx Instructions: administer with AM and PM meals melatonin 10 mg Tablet 10 mg PO BEDTIME Jardiance 10 mg Tablet 10 mg PO DAILY Qty: 30 0RF insulin glargine [Lantus U-100 Insulin] 100 unit/mL solution 25 unit subcut BEDTIME sulfamethoxazole-trimethoprim [Bactrim DS] 800-160 mg tablet 1 tab PO DIRECTED PRN (Reason: for prevention of UTI with catheter changes) Rx Instructions: Take one tablet day before catheter change, day of catheter change and day after catheter changes; monthly mirabegron [Myrbetriq] 50 mg tablet extended release 24 hr 25 mg PO DAILY levothyroxine 25 mcg tablet 25 mcg PO DAILY@0600 (DME) pen needle, diabetic [BD Cathy 2nd Gen Pen Needle] 32 gauge x 5/32 needle See Rx Instructions subcut DAILY Qty: 50 Rx Instructions: As directed (DME) lancets [FreeStyle Lancets] 28 gauge misc See Rx Instructions .ROUTE BID Qty: 100 Rx Instructions: As directed multivitamin [One Daily Multivitamin] Tablet 1 tab PO DAILY amlodipine 5 mg tablet 5 mg PO DAILY ascorbic acid (vitamin C) 1,000 mg tablet 1 g PO DAILY Qty: 90 1RF (DME) interdry See Rx Instructions .Route .MEDSUPPLY Qty: 1 12RF Rx Instructions: As directed. Apply interdry to abdominal and inguinal folds. clopidogrel 75 mg tablet 75 mg PO DAILY latanoprost 0.005 % drops 1 drp ophthalmic (eye) BEDTIME insulin lispro [Humalog KwikPen Insulin] 100 unit/mL insulin pen See Protocol subcut BID Protocol: Insulin Correction Scale Less than or equal to 110 ---- Give (units): 0 111 to 150 Give (units): 0 151 to 200 Give (units): 2 201 to 250 Give (units): 4 251 to 300 Give (units): 6 301 to 350 Give (units): 8 Greater than 350 Give (units): 10 Call MD if Blood Glucose > : 350 Changed furosemide 20 mg tablet 20 mg PO BID Qty: 120 0RF Discontinued warfarin 1 mg tablet 2 mg PO DAILY@1800 Protocol: Dose Management Condition: Thursday (Week One) Dose/Route: 2 mg Instruction: 2 x 1 mg tablets Condition: Thursday Dose/Route: 2 mg Instruction: 2 x 1 mg tablets Condition: Thursday Dose/Route: 2 mg Instruction: 2 x 1 mg tablets Condition: Thursday Dose/Route: 2 mg Instruction: 2 x 1 mg tablets Condition: Dose/Route: 2 mg Instruction: 2 x 1 mg tablets Condition: Thursday Dose/Route: 2 mg Instruction: 2 x 1 mg tablets Condition: Thursday Dose/Route: 2 mg Instruction: 2 x 1 mg tablets Condition: Thursday (Week Two) Dose/Route: 2 mg Instruction: 2 x 1 mg tablets Condition: Thursday Dose/Route: 2 mg Instruction: 2 x 1 mg tablets Condition: Thursday Dose/Route: 2 mg Instruction: 2 x 1 mg tablets Condition: Thursday Dose/Route: 2 mg Instruction: 2 x 1 mg tablets Condition: Dose/Route: 2 mg Instruction: 2 x 1 mg tablets Condition: Thursday Dose/Route: 2 mg Instruction: 2 x 1 mg tablets Condition: Thursday Dose/Route: 2 mg Instruction: 2 x 1 mg tablets Protocol Text: Adjustment Start Date: Thursday07/25/25 INR Value: 2.2 INR Date: 07/25/25 Recheck Date: 08/01/25 Discharge Orders: Discharge Order (Routine); Ordered 08/03/25 Ordered By: Libby Davenport Diet: Advance to usual diet Activity on Discharge: As tolerated Stand Alone Forms: Patient Portal Discharge page Print Language: Yakut Other Ambulatory Orders: Basic Metabolic Panel (Routine) Timeframe: 1 Week Facility: [facility] - Location: Laboratory Ordered By: Libby Davenport Prothrombin Time INR (Routine) Timeframe: 1 Week Facility: [facility] - Location: Laboratory Ordered By: Libby Davenport Care Plan Goals: chest pain -seen by cardiology:High sensitivity troponin is within normal range and this is in spite of elevated creatinine. This strongly points to not being ACs ,ef on echo 51%. Chest CT scan this admission shows chronic left upper lobe scarring and mild atelectasis of lung bases. Seen by cardiology recommended conservative management for above. Family agreed. Subtherapeutic INR: Warfarin adjusted to 3 mg p.o. daily, monitor PT INR. Health Concerns: moniter inr due to subtherapeutic INR. Monitor BMP has CKD. Plan of Treatment: as above. Assessment: As above. Discharge Date/Time: 08/03/25 14:33
== END 2025-08-03 14:33 | disposition home health service (06) ==
LOC: HO.ED 08-01 03:38 → HO.EDOVER 08-01 04:06 → HO.IMC 08-01 15:31
PROVIDERS: Internal Medicine; Nurse Practitioner Family; Admitting Provider Internal Medicine; Emergency Provider Student in an Organized Health Care Education/Training Program; PCP Internal Medicine; Visit Provider Internal Medicine
DX: I13.0 Hypertensive heart and chronic kidney disease with heart failure and stage 1 through stage 4 chronic kidney disease, or unspecified chronic kidney disease (principal); I50.20 Unspecified systolic (congestive) heart failure; N18.4 Chronic kidney disease, stage 4 (severe); E11.22 Type 2 diabetes mellitus with diabetic chronic kidney disease; N17.9 Acute kidney failure, unspecified; R07.9 Chest pain, unspecified; I48.91 Unspecified atrial fibrillation; I35.0 Nonrheumatic aortic (valve) stenosis; E11.9 Type 2 diabetes mellitus without complications; I25.10 Atherosclerotic heart disease of native coronary artery without angina pectoris; Z79.01 Long term (current) use of 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; Z79.4 Long term (current) use of insulin; N31.9 Neuromuscular dysfunction of bladder, unspecified; E03.9 Hypothyroidism, unspecified; Z23 Encounter for immunization
CPT/HCPCS: 36415; 71046; 71250; 80048; 80053; 80061; 81001; 81003; 82570; 82947; 83880; 83935; 84156; 84443; 84484; 85025; 85610; 85999; 90471; 90656; 93005; 93306; 96372; 96374; 97162; 99222; 99285; J1644; J1938; Q9957

== ENCOUNTER → 2025-07-31 20:22 | Outpatient (BNV) | payer MEDICARE, SELFPAY | PROVIDERS: Admitting Provider Internal Medicine; Emergency Provider Student in an Organized Health Care Education/Training Program; PCP Internal Medicine; Visit Provider Internal Medicine | DX: I48.91 Unspecified atrial fibrillation (principal) | CPT/HCPCS: 93010 ==

== ENCOUNTER → 2025-07-31 20:51 | Outpatient (BNV) | payer MEDICARE, SELFPAY | PROVIDERS: Emergency Provider Student in an Organized Health Care Education/Training Program; PCP Internal Medicine; Visit Provider Radiology Diagnostic Radiology | DX: R07.9 Chest pain, unspecified (principal); R06.02 Shortness of breath | CPT/HCPCS: 71046 ==

== ENCOUNTER → 2025-08-01 02:18 | Outpatient (BNV) | payer MEDICARE, SELFPAY | PROVIDERS: Admitting Provider Internal Medicine; Emergency Provider Student in an Organized Health Care Education/Training Program; PCP Internal Medicine; Visit Provider Radiology Diagnostic Radiology | DX: J98.4 Other disorders of lung (principal) | CPT/HCPCS: 71250 ==

== ENCOUNTER 2025-08-01 03:27 | Outpatient (BNV) | payer MEDICARE, SELFPAY | END 2025-08-02 08:29 | PROVIDERS: Admitting Provider Internal Medicine; Emergency Provider Student in an Organized Health Care Education/Training Program; PCP Internal Medicine; Visit Provider Internal Medicine | DX: I48.91 Unspecified atrial fibrillation (principal); I25.2 Old myocardial infarction | CPT/HCPCS: 93010 ==

== ENCOUNTER → 2025-08-01 03:27 | Outpatient (BNV) | payer MEDICARE, SELFPAY | PROVIDERS: Admitting Provider Internal Medicine; Emergency Provider Student in an Organized Health Care Education/Training Program; PCP Internal Medicine; Visit Provider Nurse Practitioner Family | DX: N18.4 Chronic kidney disease, stage 4 (severe) (principal) | CPT/HCPCS: 99231 ==

== ENCOUNTER → 2025-08-01 03:27 | Outpatient (BNV) | payer MEDICARE, SELFPAY | PROVIDERS: Admitting Provider Internal Medicine; Emergency Provider Student in an Organized Health Care Education/Training Program; PCP Internal Medicine; Visit Provider Internal Medicine | DX: R07.9 Chest pain, unspecified (principal); I25.10 Atherosclerotic heart disease of native coronary artery without angina pectoris; I48.91 Unspecified atrial fibrillation; I35.0 Nonrheumatic aortic (valve) stenosis; N18.4 Chronic kidney disease, stage 4 (severe) | CPT/HCPCS: 93306; 99223; 99233 ==

== ENCOUNTER → 2025-08-01 03:27 | Outpatient (BNV) | payer MEDICARE, SELFPAY | PROVIDERS: Admitting Provider Internal Medicine; Emergency Provider Student in an Organized Health Care Education/Training Program; PCP Internal Medicine; Visit Provider Internal Medicine | DX: I50.9 Heart failure, unspecified (principal); N17.9 Acute kidney failure, unspecified; I35.0 Nonrheumatic aortic (valve) stenosis; N18.9 Chronic kidney disease, unspecified; R07.9 Chest pain, unspecified | CPT/HCPCS: 99222; 99231; 99239; 99499; G0180 ==

== ENCOUNTER → 2025-08-22 11:02 | Outpatient (BNVA) | payer MEDICARE, SELFPAY | PROVIDERS: PCP Internal Medicine; Visit Provider Internal Medicine Medical Oncology | DX: Z46.6 Encounter for fitting and adjustment of urinary device (principal); N17.9 Acute kidney failure, unspecified; N18.4 Chronic kidney disease, stage 4 (severe); N32.89 Other specified disorders of bladder | CPT/HCPCS: 51705 ==

== ENCOUNTER 2025-08-29 13:50 | Outpatient (AMB) | payer MEDICARE, SELFPAY ==
[2025-08-29 14:04] VITALS: BP 90/60; PULSE 84; O2SAT 96; BMI 28.7
--- NOTE | 2025-08-29 14:04 | HO.NEPHOV ---
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 Apply interdry to abdominal and inguinal folds. ] lancets (FreeStyle Lancets) As directed latanoprost 0.005% 1 drp ophthalmic (eye) BEDTIME levothyroxine 25 mcg PO DAILY@0600 melatonin 10 mg PO BEDTIME metoprolol succinate ER 200 mg PO DAILY mirabegron ER (Myrbetriq) 25 mg PO DAILY multivitamin (One Daily Multivitamin tablet) 1 tab PO DAILY pen needle, diabetic (BD Cathy 2nd Gen Pen Needle) As directed valsartan 20 mg (1/2 x 40 mg) PO BID vitamins A,C,B-[id number] 2,148 mcg-113 mg-45 mg-17.4mg (PreserVision AREDS) 1 tab PO BIDWM warfarin (Jantoven) 3 mg See Protocol PO DAILY@1800 warfarin 1 mg See Protocol PO DAILY HPI Comments Details: - The patient is an 84-year-old female presenting with chronic kidney disease management. - Diabetes Mellitus: Long-term condition with neurogenic bladder, managed with suprapubic cystostomy. - Chronic Kidney Disease: Function at 20-25%, history of hospitalization for decreased function. - Coronary Artery Disease: Recent chest pressure due to fluid overload, managed by reducing fluid intake. - Hypertension: Managed with amlodipine and valsartan, dosage adjusted for low BP. - Edema: Present in legs, managed with furosemide. - Anemia: No current anemia, stable hemoglobin levels. Patient Instructions - Monitor blood pressure and blood sugar regularly. - Avoid NSAIDs like Aleve and Advil. - Follow a low-salt diet to manage fluid retention. - Continue current medications as prescribed. - Schedule monthly catheter changes with your urologist. - Return for follow-up in one month. [facility] Medical History (Updated 08/08/25 @ 00:01 by Amari Adame) CKD (chronic kidney disease) Suprapubic catheter Atrial fibrillation Hydronephrosis determined by ultrasound Permanent atrial fibrillation DOROTHY (acute kidney injury) Atrial fibrillation Neuropathy Neurogenic bladder CVA (cerebral vascular accident) Shingles Elevated cholesterol Myocardial infarction MRSA infection Hip pain Leg wound, left Varicose vein of leg Osteoarthritis of right hip Current use of anticoagulant therapy Recurrent UTI PAF (paroxysmal atrial fibrillation) Congestive heart failure Urinary incontinence Hypothyroidism Diabetes Hypertension CAD (coronary artery disease) Hypotonic neurogenic bladder Surgical History History of left knee replacement History of right knee joint replacement H/O heart artery stent H/O nasal polypectomy History of tubal ligation History of tonsillectomy and adenoidectomy Hx of cholecystectomy Family History Father Hx of angina pectoris Myocardial infarction Mother Ovarian cancer Stomach cancer Maternal Grandfather Hardening of the arteries of the heart Other Neurogenic bladder Social History Household Members: Family Household Members Other:: daughter Housing: House Are you a primary career development facilitator to a significant other at home: No Do you presently have visiting nurse or other home services: Yes Alcohol intake: never Comment: [facility] Tobacco Use Status: Never used Tobacco Second Hand Smoke Exposure: No Advance Directives Date on File: 08/27/22 service: No Current occupational status: retired Physical Exam Vital Signs: Last Vital Signs Pulse 84 08/29/25 14:04 BP 90/60 08/29/25 14:04 Pulse Ox 96 08/29/25 14:04 Oxygen Delivery Method Room Air 08/29/25 14:04 BMI result Body Mass Index 28.7 Results AMB INR Fingerstick AMB INR Fingerstick 3.3 Last Edit by Olga Millan RN on 08/29/25 14:47 Assessment & Plan Assessment & Plan (1) CKD (chronic kidney disease): Code(s): N18.9 - Chronic kidney disease, unspecified Category: Medical Qualifiers: Chronic kidney disease stage: stage 4 (GFR 15-29) Qualified Code(s): N18.4 - Chronic kidney disease, stage 4 (severe) Plan 1. 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 Ongoing obstruction/urinary retention could be a contributing factor. Renal function is close to baseline at this time. - Monitor kidney function, maintain at 20-25%. - Avoid NSAIDs, continue furosemide and Jardiance. 2. Hypertension Blood pressure is rather low. - Reduce amlodipine to 2.5 mg daily, monitor BP. 3. Coronary Artery Disease - 4. Diabetes Mellitus - Monitor glucose, continue Jardiance. Encouraged to maintain A1c less than 7% 5. Neurogenic Bladder - Monthly catheter changes, and follow up with Urology. Orders: Orders Comprehensive Met. Panel Today N18.4 - Chronic kidney disease, stage 4 (severe) Complete Blood Count Auto Diff Today N18.4 - Chronic kidney disease, stage 4 (severe) Parathyroid Hormone Intact Today N18.4 - Chronic kidney disease, stage 4 (severe) Uric Acid Today N18.4 - Chronic kidney disease, stage 4 (severe) Medications: Changed From amlodipine 5 mg PO DAILY To amlodipine 2.5 mg PO DAILY Coding Level of Care Code Est Pt Level 4 (93793) Diagnoses Stage 4 chronic kidney disease N18.4 Chronic kidney disease stage: stage 4 (GFR 15-29)
--- OUTSIDE RECORDS SUMMARY | 2025-08-29 18:05 | XMS_ITS | Encounter Summary ---
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; Other mechanical complication of other urinary catheter, subsequent encounter; Urinary tract infection, site not specified Social History Tobacco Use Types Packs/Day Years Used Date Smoking Tobacco: Never Assessed Comments Unknown Sex and Gender Information Value Date Recorded Sex Assigned at Not on file Legal Sex Female 4:40 PM EST Gender Identity Not on file Sexual Orientation Not on file documented as of this encounter Plan of Treatment Not on file documented as of this encounter Visit Diagnoses 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
--- OUTSIDE RECORDS SUMMARY | 2025-08-29 18:05 | XMS_ITS | Encounter Summary ---
Author Organization [facility] Address [address] [place] [address] Care Team Providers Care Skilled Nursing Professional Name Role Phone Vinnie Shay MD Primary Care Provider [phone] Encounter Details Date Type Department Care Team (Late st Contact Info) Description 04/19/[address] 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 Urinary tract infection, site not specified Other mechanical complication of other urinary catheter, subsequent encounter COMPLETE BLOOD COUNT Routine 04/20/2025 5:50 AM EDT 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 WBC 6.3 4.8 - 10.8 K/mcL LAB HEMETOLOGY METHOD 04/20/2025 8:55 AM [facility] RBC 4.20 3.80 - 4.80 M/mcL LAB HEMETOLOGY METHOD 04/20/2025 8:55 AM [facility] Hemoglobin 11.9 11.5 - 16.0 g/dL LAB HEMETOLOGY METHOD 04/20/2025 8:55 AM [facility] Hematocrit 39.0 35.0 - 47.0 % LAB HEMETOLOGY METHOD 04/20/2025 8:55 AM [facility] MCV 92.2 79.0 - 98.0 FL LAB HEMETOLOGY METHOD 04/20/2025 8:55 AM [facility] MCH 28.1 27.0 - 32.0 pcg LAB HEMETOLOGY METHOD 04/20/2025 8:55 AM [facility] MCHC 30.5(L) 32.0 - 37.0 g/dL LAB HEMETOLOGY METHOD 04/20/2025 8:55 AM [facility] RDW 18.6(H) 11.0 - 15.0 % LAB HEMETOLOGY METHOD 04/20/2025 8:55 AM [facility] Platelets 295 130 - 400 K/mcL LAB HEMETOLOGY METHOD 04/20/2025 8:55 AM [facility] MPV 9.1 7.0 - 11.0 FL LAB HEMETOLOGY METHOD 04/20/2025 8:55 AM [facility] NRBC 0.0 <1.0 % LAB HEMETOLOGY METHOD 04/20/2025 8:55 AM [facility] NRBC Absolute 0.00 <0.10 K/mcL LAB HEMETOLOGY METHOD 04/20/2025 8:55 AM [facility] Blood Venous blood specimen / Unknown Venipuncture / Unknown 04/20/2025 5:50 AM EDT 04/20/2025 8:41 AM EDT us Vinnie Shay MD LAB BLOOD ORDERABLES Final Resu lt [facility] [address] [place] [address], [place] [phone] * (ABNORMAL) Basic metabolic panel (04/20/2025 5:50 AM EDT) Sodium 144 133 - 145 mmol/L LAB CHEMISTRY METHOD 04/20/2025 9:34 AM [facility] Potassium 4.7 3.5 - 5.5 mmol/L LAB CHEMISTRY METHOD 04/20/2025 9:34 AM [facility] Chloride 111(H) 96 - 110 mmol/L LAB CHEMISTRY METHOD 04/20/2025 9:34 AM [facility] CO2 24 21 - 32 mmol/L LAB CHEMISTRY METHOD 04/20/2025 9:34 AM [facility] Anion Gap 9 3 - 11 LAB CHEMISTRY METHOD 04/20/2025 9:34 AM [facility] Glucose 128(H) 70 - 100 mg/dL LAB CHEMISTRY METHOD 04/20/2025 9:34 AM [facility] BUN 30(H) 5 - 25 mg/dL LAB CHEMISTRY METHOD 04/20/2025 9:34 AM [facility] Creatinine 1.66(H) 0.50 - 1.10 mg/dL LAB CHEMISTRY METHOD 04/20/2025 9:34 AM [facility] eGFR 30(L) >=60 mL/min/1. 73m2 LAB CHEMISTRY METHOD 04/20/2025 9:34 AM EDT [facility] Comment:Calculation based on the Chronic Kidney Disease Epidemiology Collaboration (CKD-EPI) equation refit without adjustment for race. BUN/Creatinine Ratio 18.1 LAB CHEMISTRY METHOD 04/20/2025 9:34 AM EDT [facility] Calcium 8.8 8.5 - 10.5 mg/dL LAB CHEMISTRY METHOD 04/20/2025 9:34 AM EDT [facility] Blood Venous blood specimen / Unknown Venipuncture / Unknown 04/20/2025 5:50 AM EDT 04/20/2025 8:39 AM EDT us Vinnie Shay MD LAB BLOOD ORDERABLES Final Resu lt Performing Organization Address [facility] de Phone Number [facility] [address] [place] [address], [place] [phone] * (ABNORMAL) Prothrombin time with INR (04/20/2025 5:50 AM EDT) Protime 20.3(H) 10.6 - 13.9 sec LAB COAGULATION METHOD 04/20/2025 8:55 AM EDT [facility] INR 1.6 LAB COAGULATION METHOD 04/20/2025 8:55 AM EDT [facility] Blood Venous blood specimen / Unknown Venipuncture / Unknown 04/20/2025 5:50 AM EDT 04/20/2025 8:37 AM EDT us Vinnie Shay MD LAB BLOOD ORDERABLES Final Resu lt Performing Organization Address [facility]/ZIP Co de Phone Number [facility] [address] [place] [address], [place] [phone] documented in this encounter Visit Diagnoses 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
--- OUTSIDE RECORDS SUMMARY | 2025-08-29 18:05 | XMS_ITS | Encounter Summary ---
Author Organization [facility] Address [address] [place] [address] Care Team Providers Care Production Designer Name Role Phone Vinnie Shay MD Primary Care Provider [phone] Encounter Details Date Type Department Care Team (Latest Contact Info) Description 04/17/[address] 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 COMPLETE BLOOD COUNT Routine 04/17/2025 7:33 AM EDT Urinary tract infection, site not specified Other mechanical complication of other urinary catheter, subsequent encounter USP (current) use of 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 COMPREHENSIVE METABOLIC PANEL Routine 04/17/2025 7:33 AM EDT Urinary tract infection, site not specified Other mechanical complication of other urinary catheter, subsequent encounter 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 documented in this encounter Results * (ABNORMAL) Comprehensive metabolic panel (04/17/2025 7:33 AM EDT) Sodium 139 133 - 145 mmol/L LAB CHEMISTRY METHOD 04/17/2025 1:36 PM [facility] Potassium 4.5 3.5 - 5.5 mmol/L LAB CHEMISTRY METHOD 04/17/2025 1:36 PM [facility] Chloride 110 96 - 110 mmol/L LAB CHEMISTRY METHOD 04/17/2025 1:36 PM [facility] CO2 22 21 - 32 mmol/L LAB CHEMISTRY METHOD 04/17/2025 1:36 PM [facility] Anion Gap 7 3 - 11 LAB CHEMISTRY METHOD 04/17/2025 1:36 PM [facility] Glucose 131(H) 70 - 100 mg/dL LAB CHEMISTRY METHOD 04/17/2025 1:36 PM [facility] BUN 36(H) 5 - 25 mg/dL LAB CHEMISTRY METHOD 04/17/2025 1:36 PM [facility] Creatinine 1.77(H) 0.50 - 1.10 mg/dL LAB CHEMISTRY METHOD 04/17/2025 1:36 PM [facility] eGFR 28(L) >=60 mL/min/1. 73m2 LAB CHEMISTRY METHOD 04/17/2025 1:36 PM [facility] Comment:Calculation based on the Chronic Kidney Disease Epidemiology Collaboration (CKD-EPI) equation refit without adjustment for race. BUN/Creatinine Ratio 20.3 LAB CHEMISTRY METHOD 04/17/2025 1:36 PM [facility] Calcium 8.5 8.5 - 10.5 mg/dL LAB CHEMISTRY METHOD 04/17/2025 1:36 PM [facility] AST (SGOT) 21 10 - 42 unit/L LAB CHEMISTRY METHOD 04/17/2025 1:36 PM [facility] ALT (SGPT) 20 10 - 60 unit/L LAB CHEMISTRY METHOD 04/17/2025 1:[address] [facility] Alkaline Phosphatase 128(H) 42 - 121 unit/L LAB CHEMISTRY METHOD 04/17/2025 1:[address] [facility] Total Protein 7.0 6.0 - 8.0 g/dL LAB CHEMISTRY METHOD 04/17/2025 1:[address] [facility] Albumin 2.7(L) 3.2 - 5.0 g/dL LAB CHEMISTRY METHOD 04/17/2025 1:[address] [facility] Total Bilirubin 0.4 0.0 - 1.4 mg/dL LAB CHEMISTRY METHOD 04/17/2025 1:[address] [facility] Blood Venous blood specimen / Unknown Venipuncture / Unknown 04/17/2025 7:33 AM EDT 04/17/2025 10:49 AM EDT us Vinnie Shay MD LAB BLOOD ORDERABLES Final Resu lt Performing Organization Address City/[facility] Co de Phone Number [facility] [address] [place] [address], [place] [phone] * (ABNORMAL) Prothrombin time with INR (04/17/2025 7:33 AM EDT) Protime 22.2(H) 10.6 - 13.9 sec LAB COAGULATION METHOD 04/17/2025 11:[address] [facility] INR 1.8 LAB COAGULATION METHOD 04/17/2025 11:[address] [facility] Blood Venous blood specimen / Unknown Venipuncture / Unknown 04/17/2025 7:33 AM EDT 04/17/2025 10:49 AM EDT us Vinnie Shay MD LAB BLOOD ORDERABLES Final Resu lt [facility] [address] [place] [address], * (ABNORMAL) Complete blood count (04/17/2025 7:33 AM EDT) [facility] Signature WBC 6.8 4.8 - 10.8 K/mcL LAB HEMETOLOGY METHOD 04/17/2025 1:[address] [facility] RBC 4.10 3.80 - 4.80 M/mcL LAB HEMETOLOGY METHOD 04/17/2025 1:[address] [facility] Hemoglobin 11.7 11.5 - 16.0 g/dL LAB HEMETOLOGY METHOD 04/17/2025 1:[address] [facility] Hematocrit 38.1 35.0 - 47.0 % LAB HEMETOLOGY METHOD 04/17/2025 1:[address] [facility] MCV 93.4 79.0 - 98.0 FL LAB HEMETOLOGY METHOD 04/17/2025 1:[address] [facility] MCH 28.7 27.0 - 32.0 pcg LAB HEMETOLOGY METHOD 04/17/2025 1:[address] [facility] MCHC 30.7(L) 32.0 - 37.0 g/dL LAB HEMETOLOGY METHOD 04/17/2025 1:[address] [facility] RDW 18.4(H) 11.0 - 15.0 % LAB HEMETOLOGY METHOD 04/17/2025 1:[address] [facility] Platelets 287 130 - 400 K/mcL LAB HEMETOLOGY METHOD 04/17/2025 1:[address] [facility] MPV 8.9 7.0 - 11.0 FL LAB HEMETOLOGY METHOD 04/17/2025 1:43 PM EDT [facility] NRBC 0.0 <1.0 % LAB HEMETOLOGY METHOD 04/17/2025 1:[address] [facility] NRBC Absolute 0.00 <0.10 K/mcL LAB HEMETOLOGY METHOD 04/17/2025 1:[address] [facility] Blood Venous blood specimen / Unknown Venipuncture / Unknown 04/17/2025 7:33 AM EDT 04/17/2025 10:49 AM EDT us Vinnie Shay MD LAB BLOOD ORDERABLES Final Resu lt [facility] [address] [place] [address], documented in this encounter Visit Diagnoses Diagnosis Urinary tract infection, site not specified Other mechanical complication of other urinary catheter, subsequent encounter 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
--- OUTSIDE RECORDS SUMMARY | 2025-08-29 18:05 | XMS_ITS | Encounter Summary ---
Author Organization [facility] Address [address] [place] [address] Care Team Providers Care Cable Television Installer Name Role Phone Vinnie Shay MD Primary Care Provider [phone] Encounter Details Date Type Department Care Team (Latest Contact Info) Description 04/15/2025 Lab Requisition [facility] - Main Lab [address] 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 INR 1.8 LAB COAGULATION METHOD 04/16/2025 7:[address] [facility] Blood Venous blood specimen / Unknown Venipuncture / Unknown 04/16/2025 5:39 AM EDT 04/16/2025 7:15 AM EDT Vinnie Shay MD LAB BLOOD ORDERABLES Final Resu lt [facility] ([facility] [address] [place] [address], documented in this encounter Visit Diagnoses Diagnosis penitentiary (current) use of 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 Long-term (current) use of 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 documented in this encounter Care Teams Cable Television Installer Relationship Specialty Start Date End Date Vinnie Shay MD [address] [place] [address] PCP - General Internal Medicine 04/17/25 documented as of this encounter
--- OUTSIDE RECORDS SUMMARY | 2025-08-29 18:05 | XMS_ITS | Clinical Summary ---
Author Organization [facility] Address [address] [place] [address] [place] [address] Phone Care Team Providers Care Pole Framer Name Role Phone Nano Delaney MD Primary Care Provider [phone] Allergies No known active allergies Medications amLODIPine [...] patient's age to complete this topic Insurance [facility] Medicare [facility] Medicare Care Teams Pole Framer Relationship Specialty Start Date End Date Nano Delaney MD [address] [place] [address] PCP - General 11/12/20
--- OUTSIDE RECORDS SUMMARY | 2025-08-29 18:05 | XMS_ITS | Clinical Summary ---
Author Organization 299 [facility] Address [address] [place] [address] Phone Care Team Providers Care Business Transformation Consultant Name Role Phone Vinnie Shay MD Primary Care Provider Social History Tobacco Use Types Packs/Day Years Used Date Smoking Tobacco: Never Assessed Comments Unknown Sex and Gender Information Value Date Recorded Sex Assigned at Not on file Legal Sex Female 4:40 PM EST Gender Identity Not on file Sexual Orientation Not on file Plan of Treatment Health Maintenance Due Date Last Done Comments Diabetes: Annual Foot Exam 1950 Diabetes: Annual Retina Eye Exam 1950 DTaP,Tdap,and Td Vaccines (1 - Tdap) 1959 Pneumococcal Vaccine: 50+ Years (1 of 2 - PCV) 1959 Zoster Vaccines (1 of 2) 1990 RSV Immunization Adult Patients (1 - 1-dose 75+ series) 2015 Cholesterol Screening (Lipid Panel) 10/01/2022 Falls Risk Assessment 10/01/2022 Medicare Annual Wellness Visit 10/01/2022 Osteoporosis Screening (Bone Density Screening) 10/01/2022 Social Influencers of Health Screening 10/01/2022 Depression Screening 11/02/2024 Diabetes: Annual Urine Albumin-Creatinine Ratio (uACR) 04/14/2025 Diabetes: Blood Sugar Control Test (HGBA1C) 04/14/2025 COVID-19 Vaccine ( season) 2025 Influenza Vaccine (#1) 2025 Diabetes: Annual GFR (Glomerular Filtration Rate) 04/24/2026 04/24/2025, 04/20/2025, 04/17/2025, Additional history exists Hypertension/CHF/CAD Annual BMP Blood Test 04/24/2026 04/24/2025, 04/20/2025, 04/17/2025, Additional history exists HIB Vaccines Aged Out No longer eligi ble based on patient's age to complete this topic HPV Vaccines Aged Out No longer eligi ble based on patient's age to complete this topic Hepatitis A Vaccines Aged Out No long er eligible based on patient's age to complete this topic Hepatitis B Vaccines Aged Out No long er eligible based on patient's age to complete this topic IPV Vaccines Aged Out No longer eligi ble based on patient's age to complete this topic MMR Vaccines Aged Out No longer eligi ble based on patient's age to complete this topic Meningococcal ACWY Vaccine Aged Out N o longer eligible based on patient's age to complete this topic Meningococcal B Vaccine Aged Out No l onger eligible based on patient's age to complete this topic RSV Immunization Patients Under 20 months Aged Out No longer eligible based on patient's age to complete this topic Varicella Vaccines Aged Out No longer eligible based on patient's age to complete this topic Procedures Procedure Name Priority Date/Time Associated Diagnosis Comments COMPREHENSIVE METABOLIC PANEL Routine 04/24/2025 5:11 AM EDT nursing home (current) use of 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 Other mechanical complication of other urinary catheter, subsequent encounter from Last 3 Months or Most Recently Relevant to Health Maintenance Results * (ABNORMAL) Comprehensive metabolic panel (04/24/2025 5:11 AM EDT) Sodium 143 133 - 145 mmol/L LAB CHEMISTRY METHOD 04/24/2025 1:32 PM [facility] Potassium 4.5 3.5 - 5.5 mmol/L LAB CHEMISTRY METHOD 04/24/2025 1:32 PM [facility] Chloride 110 96 - 110 mmol/L LAB CHEMISTRY METHOD 04/24/2025 1:32 PM [facility] CO2 26 21 - 32 mmol/L LAB CHEMISTRY METHOD 04/24/2025 1:32 PM [facility] Anion Gap 7 3 - 11 LAB CHEMISTRY METHOD 04/24/2025 1:32 PM [facility] Glucose 78 70 - 100 mg/dL LAB CHEMISTRY METHOD 04/24/2025 1:32 PM [facility] BUN 30(H) 5 - 25 mg/dL LAB CHEMISTRY METHOD 04/24/2025 1:32 PM [facility] Creatinine 1.84(H) 0.50 - 1.10 mg/dL LAB CHEMISTRY METHOD 04/24/2025 1:32 PM [facility] eGFR 27(L) >=60 mL/min/1. 73m2 LAB CHEMISTRY METHOD 04/24/2025 1:32 PM [facility] Comment:Calculation based on the Chronic Kidney Disease Epidemiology Collaboration (CKD-EPI) equation refit without adjustment for race. BUN/Creatinine Ratio 16.3 LAB CHEMISTRY METHOD 04/24/2025 1:32 PM [facility] Calcium 8.8 8.5 - 10.5 mg/dL LAB CHEMISTRY METHOD 04/24/2025 1:32 PM [facility] AST (SGOT) 19 10 - 42 unit/L LAB CHEMISTRY METHOD 04/24/2025 1:32 PM [facility] ALT (SGPT) 16 10 - 60 unit/L LAB CHEMISTRY METHOD 04/24/2025 1:32 PM [facility] Alkaline Phosphatase 134(H) 42 - 121 unit/L LAB CHEMISTRY METHOD 04/24/2025 1:32 PM [facility] Total Protein 7.3 6.0 - 8.0 g/dL LAB CHEMISTRY METHOD 04/24/2025 1:32 PM [facility] Albumin 2.9(L) 3.2 - 5.0 g/dL LAB CHEMISTRY METHOD 04/24/2025 1:32 PM [facility] Total Bilirubin 0.4 0.0 - 1.4 mg/dL LAB CHEMISTRY METHOD 04/24/2025 1:32 PM [facility] Blood Venous blood specimen / Unknown Venipuncture / Unknown 04/24/2025 5:11 AM EDT 04/24/2025 12:16 PM EDT us Vinnie Shay MD LAB BLOOD ORDERABLES Final Resu lt [facility] ([facility]) [facility] [address] [place] [address], [place] [phone] from Last 3 Months or Most Recently Relevant to Health Maintenance Insurance [employer] [place] Care Teams Business Transformation Consultant Relationship Specialty Start Date End Date Vinnie Shay MD [address] [place] [address] PCP - General Internal Medicine 04/17/25
--- OUTSIDE RECORDS SUMMARY | 2025-08-29 18:05 | XMS_ITS | Encounter Summary ---
Author Organization [facility] Address [address] [place] [address] Care Team Providers Care Registered Travel Nurse Name Role Phone Vinnie Shay MD Primary Care Provider [phone] Encounter Details Date Type Department Care Team (Late st Contact Info) Description 04/21/2025 Lab Requisition [facility] - Main Lab [address] [place] [address] Vinnie Shay MD [address] [place] [address] penitentiary (current) use of 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; Other mechanical complication [...] Diagnosis Comments PROTHROMBIN TIME WITH INR Routine 04/24/2025 5:11 AM EDT 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 Other mechanical complication of other urinary catheter, subsequent encounter COMPLETE BLOOD COUNT Routine 04/24/2025 5:11 AM EDT penitentiary (current) use of 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 Other mechanical complication of other urinary catheter, subsequent encounter COMPREHENSIVE METABOLIC PANEL Routine 04/24/2025 5:11 AM EDT 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 Other mechanical complication of other urinary catheter, subsequent encounter documented in this encounter Results * (ABNORMAL) Comprehensive metabolic panel (04/24/2025 5:11 AM EDT) Sodium 143 133 - 145 mmol/L LAB CHEMISTRY METHOD 04/24/2025 1:32 PM [facility] Potassium 4.5 3.5 - 5.5 mmol/L LAB CHEMISTRY METHOD 04/24/2025 1:32 PM [facility] Chloride 110 96 - 110 mmol/L LAB CHEMISTRY METHOD 04/24/2025 1:32 PM [facility] CO2 26 21 - 32 mmol/L LAB CHEMISTRY METHOD 04/24/2025 1:32 PM [facility] Anion Gap 7 3 - 11 LAB CHEMISTRY METHOD 04/24/2025 1:32 PM [facility] Glucose 78 70 - 100 mg/dL LAB CHEMISTRY METHOD 04/24/2025 1:32 PM [facility] BUN 30(H) 5 - 25 mg/dL LAB CHEMISTRY METHOD 04/24/2025 1:32 PM [facility] Creatinine 1.84(H) 0.50 - 1.10 mg/dL LAB CHEMISTRY METHOD 04/24/2025 1:32 PM [facility] eGFR 27(L) >=60 mL/min/1. 73m2 LAB CHEMISTRY METHOD 04/24/2025 1:32 PM [facility] Comment:Calculation based on the Chronic Kidney Disease Epidemiology Collaboration (CKD-EPI) equation refit without adjustment for race. BUN/Creatinine Ratio 16.3 LAB CHEMISTRY METHOD 04/24/2025 1:32 PM [facility] Calcium 8.8 8.5 - 10.5 mg/dL LAB CHEMISTRY METHOD 04/24/2025 1:32 PM [facility] AST (SGOT) 19 10 - 42 unit/L LAB CHEMISTRY METHOD 04/24/2025 1:32 PM [facility] ALT (SGPT) 16 10 - 60 unit/L LAB CHEMISTRY METHOD 04/24/2025 1:32 PM [facility] Alkaline Phosphatase 134(H) 42 - 121 unit/L LAB CHEMISTRY METHOD 04/24/2025 1:32 PM EDT [facility] Total Protein 7.3 6.0 - 8.0 g/dL LAB CHEMISTRY METHOD 04/24/2025 1:32 PM EDT [facility] Albumin 2.9(L) 3.2 - 5.0 g/dL LAB CHEMISTRY METHOD 04/24/2025 1:32 PM EDT [facility] Total Bilirubin 0.4 0.0 - 1.4 mg/dL LAB CHEMISTRY METHOD 04/24/2025 1:32 PM EDT [facility] Blood Venous blood specimen / Unknown Venipuncture / Unknown 04/24/2025 5:11 AM EDT 04/24/2025 12:16 PM EDT us Vinnie Shay MD LAB BLOOD ORDERABLES Final Resu lt [facility] [address] [place] [address], [place] [phone] * (ABNORMAL) Complete blood count (04/24/2025 5:11 AM EDT) WBC 6.2 4.8 - 10.8 K/mcL LAB HEMETOLOGY METHOD 04/24/2025 12:35 PM EDT [facility] RBC 4.20 3.80 - 4.80 M/mcL LAB HEMETOLOGY METHOD 04/24/2025 12:35 PM EDT [facility] Hemoglobin 12.0 11.5 - 16.0 g/dL LAB HEMETOLOGY METHOD 04/24/2025 12:35 PM EDT [facility] Hematocrit 39.5 35.0 - 47.0 % LAB HEMETOLOGY METHOD 04/24/2025 12:35 PM EDT [facility] MCV 94.7 79.0 - 98.0 FL LAB HEMETOLOGY METHOD 04/24/2025 12:35 PM EDT [facility] MCH 28.8 27.0 - 32.0 pcg LAB HEMETOLOGY METHOD 04/24/2025 12:35 PM EDT [facility] MCHC 30.4(L) 32.0 - 37.0 g/dL LAB HEMETOLOGY METHOD 04/24/2025 12:35 PM EDT [facility] RDW 19.2(H) 11.0 - 15.0 % LAB HEMETOLOGY METHOD 04/24/2025 12:35 PM EDT [facility] Platelets 267 130 - 400 K/mcL LAB HEMETOLOGY METHOD 04/24/2025 12:35 PM EDT [facility] MPV 9.2 7.0 - 11.0 FL LAB HEMETOLOGY METHOD 04/24/2025 12:35 PM EDT [facility] NRBC 0.0 <1.0 % LAB HEMETOLOGY METHOD 04/24/2025 12:35 PM EDT [facility] NRBC Absolute 0.00 <0.10 K/mcL LAB HEMETOLOGY METHOD 04/24/2025 12:35 PM EDT [facility] Blood Venous blood specimen / Unknown Venipuncture / Unknown 04/24/2025 5:11 AM EDT 04/24/2025 12:12 PM EDT us Vinnie Shay MD LAB BLOOD ORDERABLES Final Resu lt [facility] [address] [place] [address], * (ABNORMAL) Prothrombin time with INR (04/24/2025 5:11 AM EDT) Protime 16.9(H) 10.6 - 13.9 sec LAB COAGULATION METHOD 04/24/2025 12:29 PM EDT [facility] INR 1.4 LAB COAGULATION METHOD 04/24/2025 12:29 PM EDT [facility] Blood Venous blood specimen / Unknown Venipuncture / Unknown 04/24/2025 5:11 AM EDT 04/24/2025 12:12 PM EDT Vinnie Shay MD LAB BLOOD ORDERABLES Final Resu lt [facility] [address] [place] [address], documented in this encounter Visit Diagnoses Diagnosis penitentiary (current) use of 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 Long-term (current) use of 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 Other mechanical complication of other urinary catheter, subsequent encounter documented in this encounter Care Teams Registered Travel Nurse Relationship Specialty Start Date End Date Vinnie Shay MD [address] [place] [address] PCP - General Internal Medicine 04/17/25 documented as of this encounter
--- OUTSIDE RECORDS SUMMARY | 2025-08-29 18:05 | XMS_ITS | Encounter Summary ---
Author Organization [facility] Address [address] [place] [address] Care Team Providers Care Special Forces Specialist Name Role Phone Vinnie Shay MD Primary Care Provider [phone] Encounter Details Date Type Department Care Team (Latest Contact Info) Description 04/15/2025 Lab Requisition [facility] - Main Lab 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 COMPLETE BLOOD COUNT Routine 04/15/2025 8:01 AM EDT Other mechanical complication of other urinary catheter, subsequent encounter manager terminal (current) use of 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 COMPREHENSIVE METABOLIC PANEL Routine 04/15/2025 8:01 AM EDT Other mechanical complication of other urinary catheter, subsequent encounter [facility] (current) use of 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 documented in this encounter Results * (ABNORMAL) Comprehensive metabolic panel (04/15/2025 8:01 AM EDT) Sodium 138 133 - 145 mmol/L LAB CHEMISTRY METHOD 04/15/2025 1:03 PM [facility] Potassium 4.1 3.5 - 5.5 mmol/L LAB CHEMISTRY METHOD 04/15/2025 1:03 PM [facility] Chloride 107 96 - 110 mmol/L LAB CHEMISTRY METHOD 04/15/2025 1:03 PM [facility] CO2 23 21 - 32 mmol/L LAB CHEMISTRY METHOD 04/15/2025 1:03 PM [facility] Anion Gap 8 3 - 11 LAB CHEMISTRY METHOD 04/15/2025 1:03 PM [facility] Glucose 117(H) 70 - 100 mg/dL LAB CHEMISTRY METHOD 04/15/2025 1:03 PM [facility] BUN 31(H) 5 - 25 mg/dL LAB CHEMISTRY METHOD 04/15/2025 1:03 PM [facility] Creatinine 1.83(H) 0.50 - 1.10 mg/dL LAB CHEMISTRY METHOD 04/15/2025 1:03 PM [facility] eGFR 27(L) >=60 mL/min/1. 73m2 LAB CHEMISTRY METHOD 04/15/2025 1:03 PM [facility] Comment:Calculation based on the Chronic Kidney Disease Epidemiology Collaboration (CKD-EPI) equation refit without adjustment for race. BUN/Creatinine Ratio 16.9 LAB CHEMISTRY METHOD 04/15/2025 1:03 PM [facility] Calcium 8.8 8.5 - 10.5 mg/dL LAB CHEMISTRY METHOD 04/15/2025 1:03 PM [facility] AST (SGOT) 22 10 - 42 unit/L LAB CHEMISTRY METHOD 04/15/2025 1:03 PM [facility] ALT (SGPT) 21 10 - 60 unit/L LAB CHEMISTRY METHOD 04/15/2025 1:03 PM EDT [facility] Alkaline Phosphatase 156(H) 42 - 121 unit/L LAB CHEMISTRY METHOD 04/15/2025 1:03 PM EDT [facility] Total Protein 8.2(H) 6.0 - 8.0 g/dL LAB CHEMISTRY METHOD 04/15/2025 1:03 PM EDT [facility] Albumin 3.1(L) 3.2 - 5.0 g/dL LAB CHEMISTRY METHOD 04/15/2025 1:03 PM EDT [facility] Total Bilirubin 0.5 0.0 - 1.4 mg/dL LAB CHEMISTRY METHOD 04/15/2025 1:03 PM EDT [facility] Blood Venous blood specimen / Unknown Venipuncture / Unknown 04/15/2025 8:01 AM EDT 04/15/2025 12:13 PM EDT us Vinnie Shay MD LAB BLOOD ORDERABLES Final Resu lt [facility] [address] [place] [address], [place] [phone] * (ABNORMAL) Prothrombin time with INR (04/15/2025 8:01 AM EDT) Protime 21.0(H) 10.6 - 13.9 sec LAB COAGULATION METHOD 04/15/2025 12:48 PM EDT [facility] INR 1.7 LAB COAGULATION METHOD 04/15/2025 12:48 PM EDT [facility] Blood Venous blood specimen / Unknown Venipuncture / Unknown 04/15/2025 8:01 AM EDT 04/15/2025 12:13 PM EDT us Vinnie Shay MD LAB BLOOD ORDERABLES Final Resu lt [facility] [address] [place] [address], * (ABNORMAL) Complete blood count (04/15/2025 8:01 AM EDT) [facility] WBC 9.3 4.8 - 10.8 K/mcL LAB HEMETOLOGY METHOD 04/15/2025 12:34 PM [facility] RBC 4.60 3.80 - 4.80 M/mcL LAB HEMETOLOGY METHOD 04/15/2025 12:34 PM [facility] Hemoglobin 12.7 11.5 - 16.0 g/dL LAB HEMETOLOGY METHOD 04/15/2025 12:34 PM [facility] Hematocrit 42.4 35.0 - 47.0 % LAB HEMETOLOGY METHOD 04/15/2025 12:34 PM [facility] MCV 92.6 79.0 - 98.0 FL LAB HEMETOLOGY METHOD 04/15/2025 12:34 PM [facility] MCH 27.7 27.0 - 32.0 pcg LAB HEMETOLOGY METHOD 04/15/2025 12:34 PM [facility] MCHC 30.0(L) 32.0 - 37.0 g/dL LAB HEMETOLOGY METHOD 04/15/2025 12:34 PM [facility] RDW 18.0(H) 11.0 - 15.0 % LAB HEMETOLOGY METHOD 04/15/2025 12:34 PM [facility] Platelets 343 130 - 400 K/mcL LAB HEMETOLOGY METHOD 04/15/2025 12:34 PM [facility] MPV 8.9 7.0 - 11.0 FL LAB HEMETOLOGY METHOD 04/15/2025 12:34 PM [facility] NRBC 0.0 <1.0 % LAB HEMETOLOGY METHOD 04/15/2025 12:34 PM EDT [facility] NRBC Absolute 0.00 <0.10 K/mcL LAB HEMETOLOGY METHOD 04/15/2025 12:34 PM EDT [facility] Blood Venous blood specimen / Unknown Venipuncture / Unknown 04/15/2025 8:01 AM EDT 04/15/2025 12:13 PM EDT Vinnie Shay MD LAB BLOOD ORDERABLES Final Resu lt [facility] [address] [place] [address], documented in this encounter Visit Diagnoses Diagnosis Other mechanical complication of other urinary catheter, subsequent encounter [facility]P (current) use of 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 Long-term (current) use of 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 documented in this encounter Care Teams Special Forces Specialist Relationship Specialty Start Date End Date Vinnie Shay MD [address] [place] [address] PCP - General Internal Medicine 04/17/25 documented as of this encounter
== END 2025-08-29 14:34 | disposition home or self-care (01) ==
LOC: HO.HKA 13:51
PROVIDERS: PCP Internal Medicine; Visit Provider Internal Medicine Hypertension Specialist
DX: N18.4 Chronic kidney disease, stage 4 (severe) (principal)
CPT/HCPCS: 99214

== ENCOUNTER 2025-08-29 13:50 | Outpatient (REF) | payer MEDICARE, SELFPAY ==
[2025-08-29 15:20] LABS: MANUAL DIFF FLAG NO
[2025-08-29 16:09] LABS: Hematocrit 43.5 % (37.0-47.0); Hemoglobin 13.8 g/dl (12.0-16.0); Imm Gran Abs Auto 0.02 X10*3/uL (0.00-0.03); Imm Gran Pct Auto 0.3 % (0.0-0.4); Lymphocytes Absolute Auto 1.8 X10*3/uL (1.2-4.9); Mean Corpuscular HGB Conc 31.7 g/dl (31.0-35.0); Mean Corpuscular Hemoglobin 29.5 pg (27.0-33.0); Mean Corpuscular Volume 92.9 fL (80.0-98.0); NRBC Abs Auto 0.000 X10*3/uL (0.0-0.012); NRBC Pct Auto 0.0 /100WBC (0.0-0.2); Platelet Count 223 X10*3/uL (160-400); Red Blood Count 4.68 X10*6/uL (4.20-5.50); White Blood Count 7.6 X10*3/uL (4.8-10.8)
[2025-08-29 16:43] LABS: Alanine Aminotransferase 17 U/L (0-31); Albumin Level 3.9 g/dL (3.5-5.0); Alkaline Phosphatase 129 U/L (39-117); Anion Gap 15 (12-20); Aspartate Amino Transferase 26 U/L (5-31); Blood Urea Nitrogen 60 mg/dL (9-16); Calcium 8.8 mg/dL (8.4-10.2); Carbon Dioxide 21 mmol/L (22-29); Chloride 108 mmol/L (96-108); Estimated Glomerular Filt Rate 21; Potassium 4.6 mmol/L (3.3-5.1); Sodium 139 mmol/L (135-145); Total Protein 8.1 g/dL (6.5-8.0); Uric Acid 7.5 mg/dL (2.4-5.7)
[2025-08-29 17:13] LABS: Parathyroid Hormone Intact 157.9 pg/mL (8.7-77.1)
== END 2025-08-29 13:51 | disposition home or self-care (01) ==
LOC: HO.LAB 13:50
PROVIDERS: PCP Internal Medicine; Visit Provider Internal Medicine Hypertension Specialist
DX: I12.9 Hypertensive chronic kidney disease with stage 1 through stage 4 chronic kidney disease, or unspecified chronic kidney disease (principal); N18.4 Chronic kidney disease, stage 4 (severe); E11.22 Type 2 diabetes mellitus with diabetic chronic kidney disease; I25.10 Atherosclerotic heart disease of native coronary artery without angina pectoris; N31.9 Neuromuscular dysfunction of bladder, unspecified
CPT/HCPCS: 36415; 80053; 83970; 84550; 85025; 99212

== ENCOUNTER 2025-09-18 13:34 | Outpatient (REF) | payer MEDICARE, SELFPAY ==
--- OUTSIDE RECORDS SUMMARY | 2025-09-19 03:24 | XMS_ITS | Clinical Summary ---
Author Organization [facility] Address [address] [place] [address] Phone Care Team Providers Care Neon Sign Erector Name Role Phone Nano Delaney MD Primary [...] patient's age to complete this topic Insurance [facility] Medicare [facility] Medicare Care Teams Neon Sign Erector Relationship Specialty Start Date End Date Nano Delaney MD [address] [place] [address] PCP - General 11/12/20
== END 2025-09-18 13:35 | disposition home or self-care (01) ==
LOC: HO.LAB 13:34
PROVIDERS: PCP Internal Medicine; Visit Provider Urology
DX: N39.0 Urinary tract infection, site not specified (principal); Z93.59 Other cystostomy status
CPT/HCPCS: 51705; 87086

== ENCOUNTER 2025-09-25 14:49 | Outpatient (AMB) | payer MEDICARE, SELFPAY ==
[2025-09-25 14:51] VITALS: BP 80/40; PULSE 81; O2SAT 98; BMI 29.5
--- NOTE | 2025-09-25 14:51 | HO.NEPHOV_ITS ---
Vital Signs 09/25/25 14:51 Height 5 ft 5.5 in Weight 180 lb BMI 29.5 BP 80/40 L Blood Pressure Location Rt brachial Position Sitting Pulse 81 Pulse Source Pulse Oximeter Pulse Oximetry (%) 98 Oxygen Delivery Method Room Air Intake Visit Reasons: 1 mo f/u w/ labs Belt Picker Required: No Accompanied by: Daughter Allergies No Known Allergies Allergy (Verified 09/25/25 14:56) HPI Comments Details: - The patient is an 84-year-old female presenting with chronic kidney disease management. - Diabetes Mellitus: Long-term condition with neurogenic bladder, managed with suprapubic cystostomy. - Chronic Kidney Disease: Function at 20-25%, history of hospitalization for dec reased function. - Coronary Artery Disease: Recent chest pressure due to fluid overload, managed by reducing fluid intake. - Hypertension: Managed with amlodipine and valsartan, dosage adjusted for low BP. - Edema: Present in legs, managed with furosemide. - Anemia: No current anemia, stable hemoglobin levels. 09/25/25 The patient is an 85 year old individual presenting for a follow-up visit for management of chronic kidney disease and hypertension. The patient reports feeling generally well. Regarding the patient's chronic kidney disease, recent lab results show a kidney function of 21-22%, which is an improvement from 18-20% in July. This is a decline from a few years ago in 2021 and 2022 when kidney function was in the low 30s. The patient is trying to maintain adequate fluid intake. Regarding blood pressure management, one of the patient's blood pressure medications was decreased at the last visit due to low readings. Since that change, the patient has felt about the same but reports episodes of lightheadedness, particularly when getting ready for bed. [facility] Medical History (Updated 08/08/25 @ 00:01 by Amari Adame) CKD (chronic kidney disease) Suprapubic catheter Atrial fibrillation Hydronephrosis determined by ultrasound Permanent atrial fibrillation DOROTHY (acute kidney injury) Atrial fibrillation Neuropathy Neurogenic bladder CVA (cerebral vascular accident) Shingles Elevated cholesterol Myocardial infarction MRSA infection Hip pain Leg wound, left Varicose vein of leg Osteoarthritis of right hip Current use of anticoagulant therapy Recurrent UTI PAF (paroxysmal atrial fibrillation) Congestive heart failure Urinary incontinence Hypothyroidism Diabetes Hypertension CAD (coronary artery disease) Hypotonic neurogenic bladder Surgical History History of left knee replacement History of right knee joint replacement H/O heart artery stent H/O nasal polypectomy History of tubal ligation History of tonsillectomy and adenoidectomy Hx of cholecystectomy Family History Father Hx of angina pectoris Myocardial infarction Mother Ovarian cancer Stomach cancer Maternal Grandfather Hardening of the arteries of the heart Other Neurogenic bladder Social History Household Members: Family Household Members Other:: daughter Housing: House Are you a primary disabilities caregiver to a significant other at home: No Do you presently have visiting nurse or other home services: Yes Alcohol intake: never Comment: [facility] Patient Tobacco Use Status: Never used Tobacco Second Hand Smoke Exposure: No Advance Directives Date on File: 08/27/22 service: No Current occupational status: retired Physical Exam Vital Signs: Last Vital Signs Pulse 81 09/25/25 14:51 Pulse Ox 98 09/25/25 14:51 Oxygen Delivery Method Room Air 09/25/25 14:51 BMI result Body Mass Index 29.5 Results Reviewed Nephrology Results: Hgb, (12.0-16.0) 13.8 g/dl 08/29/25 WBC, (4.8-10.8) 7.6 X10*3/uL 08/29/25 Plt Count, (160-400) 223 X10*3/uL 08/29/25 Sodium, (135-145) 139 mmol/L 08/29/25 Potassium, (3.3-5.1) 4.6 mmol/L 08/29/25 Chloride, (96-108) 108 mmol/L 08/29/25 Carbon Dioxide, (22-29) 21 mmol/L L 08/29/25 BUN, (9-16) 60 mg/dL H 08/29/25 Creatinine, (0.5-1.4) 2.25 mg/dL H 08/29/25 Calcium, (8.4-10.2) 8.8 mg/dL Δ 08/29/25 PTH Intact, (8.7-77.1) 157.9 pg/mL H 08/29/25 Assessment & Plan Assessment & Plan (1) CKD (chronic kidney disease): Code(s): N18.9 - Chronic kidney disease, unspecified Category: Medical Qualifiers: Chronic kidney disease stage: stage 4 (GFR 15-29) Qualified Code(s): N18.4 - Chronic kidney disease, stage 4 (severe) Plan 1. 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 Ongoing obstruction/urinary retention could be a contributing factor. Renal function is close to baseline at this time. - Monitor kidney function, maintain at 20-25%. - Avoid NSAIDs, continue furosemide and Jardiance. 2. Hypertension Blood pressure is rather low despite lowering AMlodipine to 2.5 mg QD - STOP amlodipine to 2.5 mg daily, monitor BP. 3. Coronary Artery Disease - 4. Diabetes Mellitus - Monitor glucose, continue Jardiance. Encouraged to maintain A1c less than 7% 5. Neurogenic Bladder - Monthly catheter changes, and follow up with Urology. Orders: Orders Basic Metabolic Panel 2 Months N18.4 - Chronic kidney disease, stage 4 (severe) Coding Level of Care Code Est Pt Level 4 (67648) Diagnoses Stage 4 chronic kidney disease N18.4 Chronic kidney disease stage: stage 4 (GFR 15-29)
--- OUTSIDE RECORDS SUMMARY | 2025-09-25 19:37 | XMS_ITS | Encounter Summary ---
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; Other mechanical complication [...] WITH INR Routine 04/24/2025 5:11 AM EDT half-way (current) use of 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 Other mechanical complication of other urinary catheter, subsequent encounter COMPLETE BLOOD COUNT Routine 04/24/2025 5:11 AM EDT 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 Other mechanical complication of other urinary catheter, subsequent encounter COMPREHENSIVE METABOLIC PANEL Routine 04/24/2025 5:11 AM EDT 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 Other mechanical complication of other urinary catheter, subsequent encounter documented in this encounter Results * (ABNORMAL) Comprehensive metabolic panel (04/24/2025 5:11 AM EDT) Sodium 143 133 - 145 mmol/L LAB CHEMISTRY METHOD 04/24/2025 1:32 PM [facility] Potassium 4.5 3.5 - 5.5 mmol/L LAB CHEMISTRY METHOD 04/24/2025 1:32 PM [facility] Chloride 110 96 - 110 mmol/L LAB CHEMISTRY METHOD 04/24/2025 1:32 PM [facility] CO2 26 21 - 32 mmol/L LAB CHEMISTRY METHOD 04/24/2025 1:32 PM [facility] Anion Gap 7 3 - 11 LAB CHEMISTRY METHOD 04/24/2025 1:32 PM [facility] Glucose 78 70 - 100 mg/dL LAB CHEMISTRY METHOD 04/24/2025 1:32 PM [facility] BUN 30(H) 5 - 25 mg/dL LAB CHEMISTRY METHOD 04/24/2025 1:32 PM [facility] Creatinine 1.84(H) 0.50 - 1.10 mg/dL LAB CHEMISTRY METHOD 04/24/2025 1:32 PM [facility] eGFR 27(L) >=60 mL/min/1. 73m2 LAB CHEMISTRY METHOD 04/24/2025 1:32 PM [facility] Comment:Calculation based on the Chronic Kidney Disease Epidemiology Collaboration (CKD-EPI) equation refit without adjustment for race. BUN/Creatinine Ratio 16.3 LAB CHEMISTRY METHOD 04/24/2025 1:32 PM [facility] Calcium 8.8 8.5 - 10.5 mg/dL LAB CHEMISTRY METHOD 04/24/2025 1:32 PM [facility] AST (SGOT) 19 10 - 42 unit/L LAB CHEMISTRY METHOD 04/24/2025 1:32 PM [facility] ALT (SGPT) 16 10 - 60 unit/L LAB CHEMISTRY METHOD 04/24/2025 1:32 PM [facility] Alkaline Phosphatase 134(H) 42 - 121 unit/L LAB CHEMISTRY METHOD 04/24/2025 1:32 PM EDT [facility] Total Protein 7.3 6.0 - 8.0 g/dL LAB CHEMISTRY METHOD 04/24/2025 1:32 PM EDT [facility] Albumin 2.9(L) 3.2 - 5.0 g/dL LAB CHEMISTRY METHOD 04/24/2025 1:32 PM EDT [facility] Total Bilirubin 0.4 0.0 - 1.4 mg/dL LAB CHEMISTRY METHOD 04/24/2025 1:32 PM EDT [facility] Blood Venous blood specimen / Unknown Venipuncture / Unknown 04/24/2025 5:11 AM EDT 04/24/2025 12:16 PM EDT us Vinnie Shay MD LAB BLOOD ORDERABLES Final Resu lt [facility] [address] [place] [address], [place] [phone] * (ABNORMAL) Complete blood count (04/24/2025 5:11 AM EDT) WBC 6.2 4.8 - 10.8 K/mcL LAB HEMETOLOGY METHOD 04/24/2025 12:35 PM EDT [facility] RBC 4.20 3.80 - 4.80 M/mcL LAB HEMETOLOGY METHOD 04/24/2025 12:35 PM EDT [facility] Hemoglobin 12.0 11.5 - 16.0 g/dL LAB HEMETOLOGY METHOD 04/24/2025 12:35 PM EDT [facility] Hematocrit 39.5 35.0 - 47.0 % LAB HEMETOLOGY METHOD 04/24/2025 12:35 PM EDT [facility] MCV 94.7 79.0 - 98.0 FL LAB HEMETOLOGY METHOD 04/24/2025 12:35 PM EDT [facility] MCH 28.8 27.0 - 32.0 pcg LAB HEMETOLOGY METHOD 04/24/2025 12:35 PM EDT [facility] MCHC 30.4(L) 32.0 - 37.0 g/dL LAB HEMETOLOGY METHOD 04/24/2025 12:35 PM EDT [facility] RDW 19.2(H) 11.0 - 15.0 % LAB HEMETOLOGY METHOD 04/24/2025 12:35 PM EDT [facility] Platelets 267 130 - 400 K/mcL LAB HEMETOLOGY METHOD 04/24/2025 12:35 PM EDT [facility] MPV 9.2 7.0 - 11.0 FL LAB HEMETOLOGY METHOD 04/24/2025 12:35 PM EDT [facility] NRBC 0.0 <1.0 % LAB HEMETOLOGY METHOD 04/24/2025 12:35 PM EDT [facility] NRBC Absolute 0.00 <0.10 K/mcL LAB HEMETOLOGY METHOD 04/24/2025 12:35 PM EDT [facility] Blood Venous blood specimen / Unknown Venipuncture / Unknown 04/24/2025 5:11 AM EDT 04/24/2025 12:12 PM EDT us Vinnie Shay MD LAB BLOOD ORDERABLES Final Resu lt [facility] [address] [place] [address], * (ABNORMAL) Prothrombin time with INR (04/24/2025 5:11 AM EDT) Protime 16.9(H) 10.6 - 13.9 sec LAB COAGULATION METHOD 04/24/2025 12:29 PM EDT [facility] INR 1.4 LAB COAGULATION METHOD 04/24/2025 12:29 PM EDT [facility] Blood Venous blood specimen / Unknown Venipuncture / Unknown 04/24/2025 5:11 AM EDT 04/24/2025 12:12 PM EDT Vinnie Shay MD LAB BLOOD ORDERABLES Final Resu lt [facility] [address] [place] [address], documented in this encounter Visit Diagnoses 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
--- OUTSIDE RECORDS SUMMARY | 2025-09-25 19:37 | XMS_ITS | Encounter Summary ---
Author Organization [facility] Address [address] [place] [address] Care Team Providers Care City Carrier Assistant Name Role Phone Vinnie Shay MD Primary Care Provider [phone] Encounter Details Date Type Department Care Team (Latest Contact Info) Description 04/15/2025 Lab Requisition [facility] - Main Lab [address] [place] [address] Vinnie Shay MD [address] [place] [address] Other mechanical complication of other urinary catheter, subsequent encounter; residential (current) use of 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 Social History Tobacco [...] complication of other urinary catheter, subsequent encounter 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 COMPLETE BLOOD COUNT Routine 04/15/2025 8:01 AM EDT Other mechanical complication of other urinary catheter, subsequent encounter residential (current) use of 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 COMPREHENSIVE METABOLIC PANEL Routine 04/15/2025 8:01 AM EDT Other mechanical complication of other urinary catheter, subsequent encounter residential (current) use of 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 documented in this encounter Results * (ABNORMAL) Comprehensive metabolic panel (04/15/2025 8:01 AM EDT) Sodium 138 133 - 145 mmol/L LAB CHEMISTRY METHOD 04/15/2025 1:03 PM [facility] Potassium 4.1 3.5 - 5.5 mmol/L LAB CHEMISTRY METHOD 04/15/2025 1:03 PM [facility] Chloride 107 96 - 110 mmol/L LAB CHEMISTRY METHOD 04/15/2025 1:03 PM [facility] CO2 23 21 - 32 mmol/L LAB CHEMISTRY METHOD 04/15/2025 1:03 PM [facility] Anion Gap 8 3 - 11 LAB CHEMISTRY METHOD 04/15/2025 1:03 PM [facility] Glucose 117(H) 70 - 100 mg/dL LAB CHEMISTRY METHOD 04/15/2025 1:03 PM [facility] BUN 31(H) 5 - 25 mg/dL LAB CHEMISTRY METHOD 04/15/2025 1:03 PM [facility] Creatinine 1.83(H) 0.50 - 1.10 mg/dL LAB CHEMISTRY METHOD 04/15/2025 1:03 PM [facility] eGFR 27(L) >=60 mL/min/1. 73m2 LAB CHEMISTRY METHOD 04/15/2025 1:03 PM [facility] Comment:Calculation based on the Chronic Kidney Disease Epidemiology Collaboration (CKD-EPI) equation refit without adjustment for race. BUN/Creatinine Ratio 16.9 LAB CHEMISTRY METHOD 04/15/2025 1:03 PM [facility] Calcium 8.8 8.5 - 10.5 mg/dL LAB CHEMISTRY METHOD 04/15/2025 1:03 PM [facility] AST (SGOT) 22 10 - 42 unit/L LAB CHEMISTRY METHOD 04/15/2025 1:03 PM [facility] ALT (SGPT) 21 10 - 60 unit/L LAB CHEMISTRY METHOD 04/15/2025 1:03 PM EDT [facility] Alkaline Phosphatase 156(H) 42 - 121 unit/L LAB CHEMISTRY METHOD 04/15/2025 1:03 PM EDT [facility] Total Protein 8.2(H) 6.0 - 8.0 g/dL LAB CHEMISTRY METHOD 04/15/2025 1:03 PM EDT [facility] Albumin 3.1(L) 3.2 - 5.0 g/dL LAB CHEMISTRY METHOD 04/15/2025 1:03 PM EDT [facility] Total Bilirubin 0.5 0.0 - 1.4 mg/dL LAB CHEMISTRY METHOD 04/15/2025 1:03 PM EDT [facility] Blood Venous blood specimen / Unknown Venipuncture / Unknown 04/15/2025 8:01 AM EDT 04/15/2025 12:13 PM EDT us Vinnie Shay MD LAB BLOOD ORDERABLES Final Resu lt [facility] [address] [place] [address], [place] [phone] * (ABNORMAL) Prothrombin time with INR (04/15/2025 8:01 AM EDT) Protime 21.0(H) 10.6 - 13.9 sec LAB COAGULATION METHOD 04/15/2025 12:48 PM EDT [facility] INR 1.7 LAB COAGULATION METHOD 04/15/2025 12:48 PM EDT [facility] Blood Venous blood specimen / Unknown Venipuncture / Unknown 04/15/2025 8:01 AM EDT 04/15/2025 12:13 PM EDT us Vinnie Shay MD LAB BLOOD ORDERABLES Final Resu lt [facility] [address] [place] [address], * (ABNORMAL) Complete blood count (04/15/2025 8:01 AM EDT) [facility] WBC 9.3 4.8 - 10.8 K/mcL LAB HEMETOLOGY METHOD 04/15/2025 12:34 PM [facility] RBC 4.60 3.80 - 4.80 M/mcL LAB HEMETOLOGY METHOD 04/15/2025 12:34 PM [facility] Hemoglobin 12.7 11.5 - 16.0 g/dL LAB HEMETOLOGY METHOD 04/15/2025 12:34 PM [facility] Hematocrit 42.4 35.0 - 47.0 % LAB HEMETOLOGY METHOD 04/15/2025 12:34 PM [facility] MCV 92.6 79.0 - 98.0 FL LAB HEMETOLOGY METHOD 04/15/2025 12:34 PM [facility] MCH 27.7 27.0 - 32.0 pcg LAB HEMETOLOGY METHOD 04/15/2025 12:34 PM [facility] MCHC 30.0(L) 32.0 - 37.0 g/dL LAB HEMETOLOGY METHOD 04/15/2025 12:34 PM [facility] RDW 18.0(H) 11.0 - 15.0 % LAB HEMETOLOGY METHOD 04/15/2025 12:34 PM [facility] Platelets 343 130 - 400 K/mcL LAB HEMETOLOGY METHOD 04/15/2025 12:34 PM [facility] MPV 8.9 7.0 - 11.0 FL LAB HEMETOLOGY METHOD 04/15/2025 12:34 PM [facility] NRBC 0.0 <1.0 % LAB HEMETOLOGY METHOD 04/15/2025 12:34 PM EDT [facility] NRBC Absolute 0.00 <0.10 K/mcL LAB HEMETOLOGY METHOD 04/15/2025 12:34 PM EDT [facility] Blood Venous blood specimen / Unknown Venipuncture / Unknown 04/15/2025 8:01 AM EDT 04/15/2025 12:13 PM EDT Vinnie Shay MD LAB BLOOD ORDERABLES Final Resu lt [facility] [address] [place] [address], documented in this encounter Visit Diagnoses Diagnosis Other mechanical complication of other urinary catheter, subsequent encounter 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
--- OUTSIDE RECORDS SUMMARY | 2025-09-25 19:37 | XMS_ITS | Clinical Summary ---
Author Organization [facility] Address [address] [place] [address] Care Team Providers Care Teacher Instrumental Name Role Phone Unavailable Primary Care Provider [...] 75+ series) 2015 COVID-19 Vaccine ( - 2024-2 6 season) 2025 Influenza (#1) 2025 HPV Vaccine (No Doses [...]
--- OUTSIDE RECORDS SUMMARY | 2025-09-25 19:37 | XMS_ITS | Encounter Summary ---
Author Organization [facility] Address [address] [place] [address] Care Team Providers Care Sizing Machine Tender Name Role Phone Vinnie Shay MD Primary Care Provider [phone] Encounter Details Date Type Department Care Team (Late st Contact Info) Description 04/26/2025 Lab Requisition [facility] - Main Lab 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
--- OUTSIDE RECORDS SUMMARY | 2025-09-25 19:37 | XMS_ITS | Encounter Summary ---
Author Organization [facility] Address [address] [place] [address] Care Team Providers Care Supervisor Byproducts Name Role Phone Vinnie Shay MD Primary Care Provider [phone] Encounter Details Date Type Department Care Team (Latest Contact Info) Description 04/15/2025 Lab Requisition [facility] - Main Lab [address] [facility] [place] [address] Vinnie Shay MD [address] [place] [address] detention (current) use of 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 Social History Tobacco [...] WITH INR Routine 04/16/2025 5:39 AM EDT detention (current) use of 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 documented in this encounter Results * (ABNORMAL) Prothrombin time with INR (04/16/2025 5:39 AM EDT) Protime 22.9(H) 10.6 - 13.9 sec LAB COAGULATION METHOD 04/16/2025 7:42 AM EDT [facility] INR 1.8 LAB COAGULATION METHOD 04/16/2025 7:42 AM T [facility] Blood Venous blood specimen / Unknown Venipuncture / Unknown 04/16/2025 5:39 AM EDT 04/16/2025 7:15 AM EDT Vinnie Shay MD LAB BLOOD ORDERABLES Final Resu lt [facility] ([facility] [address] [place] [address], documented in this encounter Visit Diagnoses Diagnosis detention (current) use of 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 Long-term (current) use of 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 documented in this encounter Care Teams Supervisor Byproducts Relationship Specialty Start Date End Date Vinnie Shay MD [address] [place] [address] PCP - General Internal Medicine 04/17/25 documented as of this encounter
--- OUTSIDE RECORDS SUMMARY | 2025-09-25 19:37 | XMS_ITS | Encounter Summary ---
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; Urinary tract infection, [...] WITH INR Routine 04/20/2025 5:50 AM EDT jail (current) use of 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 Urinary tract infection, site not specified Other mechanical complication of other urinary catheter, subsequent encounter COMPLETE BLOOD COUNT Routine 04/20/2025 5:50 AM EDT jail (current) use of 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 Urinary tract infection, site not specified Other mechanical complication of other urinary catheter, subsequent encounter BASIC METABOLIC PANEL Routine 04/20/2025 5:50 AM EDT jail (current) use of 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 Urinary tract infection, site not specified Other mechanical complication of other urinary catheter, subsequent encounter documented in this encounter Results * (ABNORMAL) Complete blood count (04/20/2025 5:50 AM EDT) [facility] WBC 6.3 4.8 - 10.8 K/mcL LAB HEMETOLOGY METHOD 04/20/2025 8:55 AM [facility] RBC 4.20 3.80 - 4.80 M/mcL LAB HEMETOLOGY METHOD 04/20/2025 8:55 AM [facility] Hemoglobin 11.9 11.5 - 16.0 g/dL LAB HEMETOLOGY METHOD 04/20/2025 8:55 AM [facility] Hematocrit 39.0 35.0 - 47.0 % LAB HEMETOLOGY METHOD 04/20/2025 8:55 AM [facility] MCV 92.2 79.0 - 98.0 FL LAB HEMETOLOGY METHOD 04/20/2025 8:55 AM [facility] MCH 28.1 27.0 - 32.0 pcg LAB HEMETOLOGY METHOD 04/20/2025 8:55 AM [facility] MCHC 30.5(L) 32.0 - 37.0 g/dL LAB HEMETOLOGY METHOD 04/20/2025 8:55 AM [facility] RDW 18.6(H) 11.0 - 15.0 % LAB HEMETOLOGY METHOD 04/20/2025 8:55 AM [facility] Platelets 295 130 - 400 K/mcL LAB HEMETOLOGY METHOD 04/20/2025 8:55 AM [facility] MPV 9.1 7.0 - 11.0 FL LAB HEMETOLOGY METHOD 04/20/2025 8:55 AM [facility] NRBC 0.0 <1.0 % LAB HEMETOLOGY METHOD 04/20/2025 8:55 AM [facility] NRBC Absolute 0.00 <0.10 K/mcL LAB HEMETOLOGY METHOD 04/20/2025 8:55 AM [facility] Blood Venous blood specimen / Unknown Venipuncture / Unknown 04/20/2025 5:50 AM EDT 04/20/2025 8:41 AM EDT us Vinnie Shay MD LAB BLOOD ORDERABLES Final Resu lt [facility] [address] [place] [address], [place] [phone] * (ABNORMAL) Basic metabolic panel (04/20/2025 5:50 AM EDT) Sodium 144 133 - 145 mmol/L LAB CHEMISTRY METHOD 04/20/2025 9:34 AM [facility] Potassium 4.7 3.5 - 5.5 mmol/L LAB CHEMISTRY METHOD 04/20/2025 9:34 AM [facility] Chloride 111(H) 96 - 110 mmol/L LAB CHEMISTRY METHOD 04/20/2025 9:34 AM [facility] CO2 24 21 - 32 mmol/L LAB CHEMISTRY METHOD 04/20/2025 9:34 AM [facility] Anion Gap 9 3 - 11 LAB CHEMISTRY METHOD 04/20/2025 9:34 AM [facility] Glucose 128(H) 70 - 100 mg/dL LAB CHEMISTRY METHOD 04/20/2025 9:34 AM [facility] BUN 30(H) 5 - 25 mg/dL LAB CHEMISTRY METHOD 04/20/2025 9:34 AM [facility] Creatinine 1.66(H) 0.50 - 1.10 mg/dL LAB CHEMISTRY METHOD 04/20/2025 9:34 AM [facility] eGFR 30(L) >=60 mL/min/1. 73m2 LAB CHEMISTRY METHOD 04/20/2025 9:34 AM EDT [facility] Comment:Calculation based on the Chronic Kidney Disease Epidemiology Collaboration (CKD-EPI) equation refit without adjustment for race. BUN/Creatinine Ratio 18.1 LAB CHEMISTRY METHOD 04/20/2025 9:34 AM EDT [facility] Calcium 8.8 8.5 - 10.5 mg/dL LAB CHEMISTRY METHOD 04/20/2025 9:34 AM EDT [facility] Blood Venous blood specimen / Unknown Venipuncture / Unknown 04/20/2025 5:50 AM EDT 04/20/2025 8:39 AM EDT us Vinnie Shay MD LAB BLOOD ORDERABLES Final Resu lt Performing Organization Address [facility] de Phone Number [facility] [address] [place] [address], [place] [phone] * (ABNORMAL) Prothrombin time with INR (04/20/2025 5:50 AM EDT) Protime 20.3(H) 10.6 - 13.9 sec LAB COAGULATION METHOD 04/20/2025 8:55 AM EDT [facility] INR 1.6 LAB COAGULATION METHOD 04/20/2025 8:55 AM EDT [facility] Blood Venous blood specimen / Unknown Venipuncture / Unknown 04/20/2025 5:50 AM EDT 04/20/2025 8:37 AM EDT us Vinnie Shay MD LAB BLOOD ORDERABLES Final Resu lt Performing Organization Address [facility]/ZIP Co de Phone Number [facility] [address] [place] [address], [place] [phone] documented in this encounter Visit Diagnoses 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
--- OUTSIDE RECORDS SUMMARY | 2025-09-25 19:37 | XMS_ITS | Encounter Summary ---
Author Organization [facility] Address [address] [place] [address] Care Team Providers Care Fourdrinier Operator Name Role Phone Vinnie Shay MD Primary Care Provider [phone] Encounter Details Date Type Department Care Team (Latest Contact Info) Description 04/17/2025 Lab Requisition [facility] - Main Lab [address] [place] [address] Vinnie Shay MD [address] [place] [address] Urinary tract infection, site not specified; Other mechanical complication of other urinary catheter, subsequent encounter; 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 Social History Tobacco [...] complication of other urinary catheter, subsequent encounter 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 COMPLETE BLOOD COUNT Routine 04/17/2025 7:33 AM EDT Urinary tract infection, site not specified Other mechanical complication of other urinary catheter, subsequent encounter group home (current) use of 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 COMPREHENSIVE METABOLIC PANEL Routine 04/17/2025 7:33 AM EDT Urinary tract infection, site not specified Other mechanical complication of other urinary catheter, subsequent encounter group home (current) 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 of 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 documented in this encounter Results * (ABNORMAL) Comprehensive metabolic panel (04/17/2025 7:33 AM EDT) Sodium 139 133 - 145 mmol/L LAB CHEMISTRY METHOD 04/17/2025 1:36 PM [facility] Potassium 4.5 3.5 - 5.5 mmol/L LAB CHEMISTRY METHOD 04/17/2025 1:36 PM [facility] Chloride 110 96 - 110 mmol/L LAB CHEMISTRY METHOD 04/17/2025 1:36 PM [facility] CO2 22 21 - 32 mmol/L LAB CHEMISTRY METHOD 04/17/2025 1:36 PM [facility] Anion Gap 7 3 - 11 LAB CHEMISTRY METHOD 04/17/2025 1:36 PM [facility] Glucose 131(H) 70 - 100 mg/dL LAB CHEMISTRY METHOD 04/17/2025 1:36 PM [facility] BUN 36(H) 5 - 25 mg/dL LAB CHEMISTRY METHOD 04/17/2025 1:36 PM [facility] Creatinine 1.77(H) 0.50 - 1.10 mg/dL LAB CHEMISTRY METHOD 04/17/2025 1:36 PM [facility] eGFR 28(L) >=60 mL/min/1. 73m2 LAB CHEMISTRY METHOD 04/17/2025 1:36 PM [facility] Comment:Calculation based on the Chronic Kidney Disease Epidemiology Collaboration (CKD-EPI) equation refit without adjustment for race. BUN/Creatinine Ratio 20.3 LAB CHEMISTRY METHOD 04/17/2025 1:36 PM [facility] Calcium 8.5 8.5 - 10.5 mg/dL LAB CHEMISTRY METHOD 04/17/2025 1:36 PM [facility] AST (SGOT) 21 10 - 42 unit/L LAB CHEMISTRY METHOD 04/17/2025 1:36 PM [facility] ALT (SGPT) 20 10 - 60 unit/L LAB CHEMISTRY METHOD 04/17/2025 1:[address] [facility] Alkaline Phosphatase 128(H) 42 - 121 unit/L LAB CHEMISTRY METHOD 04/17/2025 1:[address] [facility] Total Protein 7.0 6.0 - 8.0 g/dL LAB CHEMISTRY METHOD 04/17/2025 1:[address] [facility] Albumin 2.7(L) 3.2 - 5.0 g/dL LAB CHEMISTRY METHOD 04/17/2025 1:[address] [facility] Total Bilirubin 0.4 0.0 - 1.4 mg/dL LAB CHEMISTRY METHOD 04/17/2025 1:[address] [facility] Blood Venous blood specimen / Unknown Venipuncture / Unknown 04/17/2025 7:33 AM EDT 04/17/2025 10:49 AM EDT us Vinnie Shay MD LAB BLOOD ORDERABLES Final Resu lt Performing Organization Address [facility] Co de Phone Number [facility] [address] [place] [address], [place] [phone] * (ABNORMAL) Prothrombin time with INR (04/17/2025 7:33 AM EDT) Protime 22.2(H) 10.6 - 13.9 sec LAB COAGULATION METHOD 04/17/2025 11:[address] [facility] INR 1.8 LAB COAGULATION METHOD 04/17/2025 11:[address] [facility] Blood Venous blood specimen / Unknown Venipuncture / Unknown 04/17/2025 7:33 AM EDT 04/17/2025 10:49 AM EDT us Vinnie Shay MD LAB BLOOD ORDERABLES Final Resu lt [facility] [address] [place] [address], * (ABNORMAL) Complete blood count (04/17/2025 7:33 AM EDT) [facility] Signature WBC 6.8 4.8 - 10.8 K/mcL LAB HEMETOLOGY METHOD 04/17/2025 1:[address] [facility] RBC 4.10 3.80 - 4.80 M/mcL LAB HEMETOLOGY METHOD 04/17/2025 1:[address] [facility] Hemoglobin 11.7 11.5 - 16.0 g/dL LAB HEMETOLOGY METHOD 04/17/2025 1:[address] [facility] Hematocrit 38.1 35.0 - 47.0 % LAB HEMETOLOGY METHOD 04/17/2025 1:[address] [facility] MCV 93.4 79.0 - 98.0 FL LAB HEMETOLOGY METHOD 04/17/2025 1:[address] [facility] MCH 28.7 27.0 - 32.0 pcg LAB HEMETOLOGY METHOD 04/17/2025 1:[address] [facility] MCHC 30.7(L) 32.0 - 37.0 g/dL LAB HEMETOLOGY METHOD 04/17/2025 1:[address] [facility] RDW 18.4(H) 11.0 - 15.0 % LAB HEMETOLOGY METHOD 04/17/2025 1:[address] [facility] Platelets 287 130 - 400 K/mcL LAB HEMETOLOGY METHOD 04/17/2025 1:[address] [facility] MPV 8.9 7.0 - 11.0 FL LAB HEMETOLOGY METHOD 04/17/2025 1:43 PM EDT [facility] NRBC 0.0 <1.0 % LAB HEMETOLOGY METHOD 04/17/2025 1:[address] [facility] NRBC Absolute 0.00 <0.10 K/mcL LAB HEMETOLOGY METHOD 04/17/2025 1:[address] [facility] Blood Venous blood specimen / Unknown Venipuncture / Unknown 04/17/2025 7:33 AM EDT 04/17/2025 10:49 AM EDT us Vinnie Shay MD LAB BLOOD ORDERABLES Final Resu lt 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
--- OUTSIDE RECORDS SUMMARY | 2025-09-25 19:37 | XMS_ITS | Clinical Summary ---
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 Other mechanical complication of other urinary catheter, subsequent encounter from Last 3 Months or Most Recently Relevant to Health Maintenance Results * (ABNORMAL) Comprehensive metabolic panel (04/24/2025 5:11 AM EDT) Sodium 143 133 - 145 mmol/L LAB CHEMISTRY METHOD 04/24/2025 1:32 PM [facility] Potassium 4.5 3.5 - 5.5 mmol/L LAB CHEMISTRY METHOD 04/24/2025 1:32 PM [facility] Chloride 110 96 - 110 mmol/L LAB CHEMISTRY METHOD 04/24/2025 1:32 PM [facility] CO2 26 21 - 32 mmol/L LAB CHEMISTRY METHOD 04/24/2025 1:32 PM [facility] Anion Gap 7 3 - 11 LAB CHEMISTRY METHOD 04/24/2025 1:32 PM [facility] Glucose 78 70 - 100 mg/dL LAB CHEMISTRY METHOD 04/24/2025 1:32 PM [facility] BUN 30(H) 5 - 25 mg/dL LAB CHEMISTRY METHOD 04/24/2025 1:32 PM [facility] Creatinine 1.84(H) 0.50 - 1.10 mg/dL LAB CHEMISTRY METHOD 04/24/2025 1:32 PM [facility] eGFR 27(L) >=60 mL/min/1. 73m2 LAB CHEMISTRY METHOD 04/24/2025 1:32 PM [facility] Comment:Calculation based on the Chronic Kidney Disease Epidemiology Collaboration (CKD-EPI) equation refit without adjustment for race. BUN/Creatinine Ratio 16.3 LAB CHEMISTRY METHOD 04/24/2025 1:32 PM [facility] Calcium 8.8 8.5 - 10.5 mg/dL LAB CHEMISTRY METHOD 04/24/2025 1:32 PM [facility] AST (SGOT) 19 10 - 42 unit/L LAB CHEMISTRY METHOD 04/24/2025 1:32 PM [facility] ALT (SGPT) 16 10 - 60 unit/L LAB CHEMISTRY METHOD 04/24/2025 1:32 PM [facility] Alkaline Phosphatase 134(H) 42 - 121 unit/L LAB CHEMISTRY METHOD 04/24/2025 1:32 PM [facility] Total Protein 7.3 6.0 - 8.0 g/dL LAB CHEMISTRY METHOD 04/24/2025 1:32 PM [facility] Albumin 2.9(L) 3.2 - 5.0 g/dL LAB CHEMISTRY METHOD 04/24/2025 1:32 PM [facility] Total Bilirubin 0.4 0.0 - 1.4 mg/dL LAB CHEMISTRY METHOD 04/24/2025 1:32 PM [facility] Blood Venous blood specimen / Unknown Venipuncture / Unknown 04/24/2025 5:11 AM EDT 04/24/2025 12:16 PM EDT us Vinnie Shay MD LAB BLOOD ORDERABLES Final Resu lt [facility] ([facility] [address] [place] [address], [place] [phone] from Last 3 Months or Most Recently Relevant to Health Maintenance Insurance [employer] [place] Care Teams Dairy Consultant Relationship Specialty Start Date End Date Vinnie Shay MD [address] [place] [address] PCP - General Internal Medicine 04/17/25
== END 2025-09-25 15:11 | disposition home or self-care (01) ==
LOC: HO.HKA 14:49
PROVIDERS: PCP Internal Medicine; Visit Provider Internal Medicine Hypertension Specialist
DX: N18.4 Chronic kidney disease, stage 4 (severe) (principal)
CPT/HCPCS: 99214

== ENCOUNTER → 2025-09-25 14:49 | Outpatient (BNVA) | payer MEDICARE, SELFPAY | PROVIDERS: PCP Internal Medicine; Visit Provider Internal Medicine Hypertension Specialist | DX: N18.4 Chronic kidney disease, stage 4 (severe) (principal); I10 Essential (primary) hypertension; E11.9 Type 2 diabetes mellitus without complications; I25.10 Atherosclerotic heart disease of native coronary artery without angina pectoris; N31.9 Neuromuscular dysfunction of bladder, unspecified | CPT/HCPCS: 99212 ==

== ENCOUNTER 2025-10-10 11:04 | Outpatient (AMB) | payer MEDICARE, SELFPAY ==
--- NOTE | 2025-10-10 11:35 | MHC.OFFVISCO ---
Intake Intake Visit Reasons: Anticoagulation Allergies No Known Allergies Allergy (Verified 10/10/25 11:09) Medication List - Last Reconciled 10/10/25 by Deja Templeton RN amoxicillin-pot clavulanate 500-125 mg (Augmentin) 1 tab PO Q8H 10 days ascorbic acid (vitamin C) 1 g PO DAILY atorvastatin 10 mg PO BEDTIME clopidogrel 75 mg PO DAILY empagliflozin (Jardiance) 10 mg PO DAILY furosemide 20 mg PO BID insulin glargine (Lantus U-100 Insulin) 25 units subcut BEDTIME insulin lispro (Humalog KwikPen (U-100) Insulin) See Protocol sliding scale doses subcut BID [interdry As directed. Apply interdry to abdominal and inguinal folds. ] lancets (FreeStyle Lancets) As directed latanoprost 0.005% 1 drp ophthalmic (eye) BEDTIME levothyroxine 25 mcg PO DAILY@0600 melatonin 10 mg PO BEDTIME metoprolol succinate ER 200 mg PO DAILY multivitamin (One Daily Multivitamin tablet) 1 tab PO DAILY pen needle, diabetic (BD Cathy 2nd Gen Pen Needle) As directed sulfamethoxazole-trimethoprim (Bactrim DS) YOU MUST NOTIFY ANTICOAG WHEN TAKING THIS MEDICATION BECAUSE IT CAN RAISE YOUR INR valsartan 20 mg (1/2 x 40 mg) PO BID vitamins A,C,W-xisx-vllccr 2,148 mcg-113 mg-45 mg-17.4mg (PreserVision AREDS) 1 tab PO BIDWM warfarin (Jantoven) 3 mg See Protocol PO DAILY@1800 warfarin 1 mg See Protocol PO DAILY Nursing Note INR received from [facility] nurse Mary, INR today is 2.6, Spoke to nurse who was with pt at the time Patient status: no changes. Pt to have suprapubic cath changed tomorrow and is on Bactrim DS X 3 days starting today Denies any signs and symptoms of any unusual bruising, bleeding or clotting Medication or supplements: no change other than above Diet: usual diet for pt Activity: as amee Dose: usual dose of 2mg for next 2 days, then hold dose of 2mg (10/12/25) then usual dose of 2mg X 3 days and decrease next dose of 3mg to 2mg then retest Dosing and diet instructions given with next retest date of 10/17/25, Nurse and patient verbalizes understanding of instructions given with accurate read back Anti-Coag Initial Assessment Social Hx Patient Tobacco Use Status: Never used Tobacco alcohol intake: never Alcohol intake frequency: holidays/special occasions only Coding Level of Care Code Est Patient Level 1 Diagnoses Current use of anticoagulant therapy Z79.01 Results AMB INR Fingerstick AMB INR Fingerstick 2.6 Last Edit by Deja Templeton RN on 10/10/25 11:10 [facility] Assessment & Plan Assessment & Plan (1) Current use of anticoagulant therapy: Code(s): Z79.01 - long-term (current) use of 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
== END 2025-10-10 11:44 | disposition home or self-care (01) ==
LOC: HO.ACS 11:04
PROVIDERS: PCP Internal Medicine; Visit Provider Internal Medicine Medical Oncology
DX: Z79.01 Long term (current) use of 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 (principal)

== ENCOUNTER → 2025-10-10 11:04 | Outpatient (BNVA) | payer MEDICARE, SELFPAY | PROVIDERS: PCP Internal Medicine; Visit Provider Internal Medicine Medical Oncology | DX: I48.20 Chronic atrial fibrillation, unspecified (principal); Z51.81 Encounter for therapeutic drug level monitoring; Z79.01 Long term (current) use of 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 | CPT/HCPCS: 99211 ==

== ENCOUNTER → 2025-10-18 13:32 | Outpatient (BNVA) | payer MEDICARE, SELFPAY | PROVIDERS: PCP Internal Medicine; Visit Provider Urology | DX: Z46.6 Encounter for fitting and adjustment of urinary device (principal) | CPT/HCPCS: 51705 ==